=== PATIENT | male | born 1965 | race Caucasian/White ===

== ENCOUNTER 2017-03-29 18:11 | Inpatient (IN) | payer MEDICARE, BC ==
[2017-03-29] MEDS ORDERED: RX INFO: IV CONTRAST WAS GIVEN 1 EACH MISC MISCELLANE PRN (18:42)
--- NOTE | 2017-03-29 19:27 | ED ---
General Adult HPI - General Chief complaint: Urogenital Stated complaint: blood in urine Time Seen by Provider: 03/29/17 18:25 Source: patient, EMS, RN notes reviewed Mode of arrival: EMS Limitations: no limitations - History of Present Illness Initial comments: This is a 51-year-old male who presents to the emergency department with chief complaint of hematuria. 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 Patient uses an external catheter to urinate. He states that this morning he noticed some blood in his urine. He states that throughout the day the appearance of his urine improved. At approximately 4 PM this evening he noticed some resistance when he attempted to void. He stated that he felt some bladder pressure and retention with dribbling and a noncontinuous strain. Him and his family members changed the condom of his external catheter and noticed blood clots at the urethral opening. Family member at bedside states that she pulled blood clots from his urethra. Since that time patient has had iker blood. He was transported to the emergency department by EMS. Patient also states that his bed at home broke so he's been laying flat on his back for the past 2 weeks. He denies any flank pain or abdominal pain. Denies fever, chills, chest pain, shortness of breath, abdominal pain, nausea or vomiting, constipation or diarrhea, headache or vision changes. - Related Data Home Medications Medication Instructions Recorded Confirmed Lansoprazole [Prevacid] 15 mg PO DAILY 03/29/17 03/29/17 Allergies Allergy/AdvReac Type Severity Reaction Status Date / Time Sulfa (Sulfonamide Allergy Rash/Hives Verified 03/29/17 18:49 Antibiotics) Review of Systems ROS Statement: Those systems with pertinent positive or pertinent negative responses have been documented in the HPI. ROS Other: All systems not noted in ROS Statement are negative. 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- History of Any Multi-Drug Resistant Organisms: MRSA Date of last positivie culture/infection: 2011 MDRO Source:: skin graft left buttock Additional Past Surgical History / Comment(s): multiple surgeries/skin grafts for pressure sores Past Anesthesia/Blood Transfusion Reactions: No Reported Reaction Past Psychological History: No Psychological Hx Reported Smoking Status: Never smoker Past Alcohol Use History: None Reported Past Drug Use History: None Reported - Past Family History Mother Family Medical History: No Reported History Father Family Medical History: No Reported History General Exam - General Exam Comments Initial Comments: General: Awake and alert, well-developed; in no apparent distress. Lying flat on his back on ED stretcher. Family members at bedside. HEENT: Head atraumatic, normocephalic. Pupils are equal, round and reactive to light. Extraocular movements intact. Oropharynx moist without erythema or exudate. Cardiovascular: Regular rate and rhythm. No murmurs, rubs or gallops. Chest symmetrical. Respiratory: Lungs clear to auscultation bilaterally. No wheezes, rales or rhonchi. Normal respiratory effort with no use of accessory muscles. Abdomen: Soft, non-tender, non-distended. No suprapubic tenderness. No CVA tenderness. No rigidity, rebound or guarding. Normal bowel sounds in all 4 quadrants. Musculoskeletal: Normal ROM and no tenderness of his bilateral upper extremities. Skin: Strong, warm and dry without rashes or lesions. Neurological: Alert and oriented x3. CN II-XII grossly intact. Speech is fluent and answers are appropriate. No focal neuro deficits. Psychiatric: Normal mood and affect. No overt signs of depression or anxiety noted. Limitations: no limitations Course Vital Signs 03/29/17 03/29/17 03/29/17 18:15 18:28 20:18 Temperature 97.9 F 97 F L Pulse Rate 114 H 117 H Respiratory 16 16 Rate Blood Pressure 122/88 132/64 O2 Sat by Pulse 97 95 Oximetry 03/29/17 03/29/17 21:03 22:19 Temperature Pulse Rate 101 H Respiratory 18 Rate Blood Pressure 134/68 131/84 O2 Sat by Pulse 94 L Oximetry Medical Decision Making - Medical Decision Making This is a 51-year-old male who presented to the emergency department for evaluation of gross hematuria. Bladder scan was performed showing urine volume of 961. Patient's external catheter was removed and an indwelling catheter was placed. Approximately 725 output since that time. CBC revealed a white count of 12.7 with neutrophils at 9.3. Urine was bloody with very high red blood cells, 31 white blood cells and high bacteria. CMP revealed a sodium of 121, K + 3.4, glucose 122, BUN 101, creatinine 2.05 and CK 175. Repeat BUN was drawn and it was 106. CT of abdomen and pelvis revealed a multinodular thick urinary bladder, unable to exclude malignancy. Renal parenchymal thinning and nephrolithiasis with bilateral dilated ureters. This case was discussed with attending physician Dr. Lopez who was in contact with patient's doctor, Dr. Owens. Patient will be admitted to the hospital with diagnosis of uremia and gross hematuria for further evaluation. Patient was made aware of findings and plan. He is in agreement and voices understanding. He is in no acute distress at this time. - Lab Data Result diagrams: 03/29/17 19:12 03/29/17 20:30 Lab Results 03/29/17 03/29/17 03/29/17 Range/Units 19:12 19:12 19:12 WBC 12.7 H (3.8-10.6) k/uL RBC 5.99 H (4.30-5.90) m/uL Hgb 17.1 (13.0-17.5) gm/dL Hct 50.4 (39.0-53.0) % MCV 84.3 (80.0-100.0) fL MCH 28.5 (25.0-35.0) pg MCHC 33.8 (31.0-37.0) g/dL RDW 13.9 (11.5-15.5) % Plt Count 272 (150-450) k/uL Neutrophils % 73 % Lymphocytes % 16 % Monocytes % 5 % Eosinophils % 4 % Basophils % 0 % Neutrophils # 9.3 H (1.3-7.7) k/uL Lymphocytes # 2.0 (1.0-4.8) k/uL Monocytes # 0.7 (0-1.0) k/uL Eosinophils # 0.5 (0-0.7) k/uL Basophils # 0.0 (0-0.2) k/uL Sodium 129 L (137-145) mmol/L Potassium 3.4 L (3.5-5.1) mmol/L Chloride 89 L (98-107) mmol/L Carbon Dioxide 19 L (22-30) mmol/L Anion Gap 21 mmol/L BUN 101 H* (9-20) mg/dL Creatinine 2.05 H (0.66-1.25) mg/dL Est GFR (MDRD) Af Amer 42 (>60 ml/min/1.73 sqM) Est GFR (MDRD) Non-Af 34 (>60 ml/min/1.73 sqM) Glucose 122 H (74-99) mg/dL Calcium 10.6 H (8.4-10.2) mg/dL Total Bilirubin 1.3 (0.2-1.3) mg/dL AST 24 (17-59) U/L ALT 52 (21-72) U/L Alkaline Phosphatase 104 (38-126) U/L Creatine Kinase (55-170) U/L Total Protein 9.0 H (6.3-8.2) g/dL Albumin 5.0 (3.5-5.0) g/dL Urine Color Dark Red Urine Appearance Bloody (Clear) Urine RBC >182 H (0-5) /hpf Urine WBC 31 H (0-5) /hpf Urine WBC Clumps Many H (None) /hpf Urine Bacteria Many H (None) /hpf Urine Mucus Few H (None) /hpf 12/20/17 Range/Units 20:30 WBC (3.8-10.6) k/uL RBC (4.30-5.90) m/uL Hgb (13.0-17.5) gm/dL Hct (39.0-53.0) % MCV (80.0-100.0) fL MCH (25.0-35.0) pg MCHC (31.0-37.0) g/dL RDW (11.5-15.5) % Plt Count (150-450) k/uL Neutrophils % % Lymphocytes % % Monocytes % % Eosinophils % % Basophils % % Neutrophils # (1.3-7.7) k/uL Lymphocytes # (1.0-4.8) k/uL Monocytes # (0-1.0) k/uL Eosinophils # (0-0.7) k/uL Basophils # (0-0.2) k/uL Sodium (137-145) mmol/L Potassium (3.5-5.1) mmol/L Chloride (98-107) mmol/L Carbon Dioxide (22-30) mmol/L Anion Gap mmol/L BUN 106 H* (9-20) mg/dL Creatinine (0.66-1.25) mg/dL Est GFR (MDRD) Af Amer (>60 ml/min/1.73 sqM) Est GFR (MDRD) Non-Af (>60 ml/min/1.73 sqM) Glucose (74-99) mg/dL Calcium (8.4-10.2) mg/dL Total Bilirubin (0.2-1.3) mg/dL AST (17-59) U/L ALT (21-72) U/L Alkaline Phosphatase (38-126) U/L Creatine Kinase 175 H (55-170) U/L Total Protein (6.3-8.2) g/dL Albumin (3.5-5.0) g/dL Urine Color Urine Appearance (Clear) Urine RBC (0-5) /hpf Urine WBC (0-5) /hpf Urine WBC Clumps (None) /hpf Urine Bacteria (None) /hpf Urine Mucus (None) /hpf Disposition Clinical Impression: Uremia, Gross hematuria Disposition: ADMITTED IP TO THIS [facility] Condition: Stable Referrals: Marito Owens MD [Primary Care Provider] - 1-2 days Time of Disposition: 22:42
[2017-03-29 19:31] LABS: Bacteria,Urine Many /hpf; Mucus,Urine Few /hpf; RBC,Urine >182 /hpf (0-5); WBC,Urine 31 /hpf (0-5)
[2017-03-29 19:33] LABS: Calcium 10.6 mg/dL (8.4-10.2); Potassium 3.4 mmol/L (3.5-5.1); Total Bilirubin 1.3 mg/dL (0.2-1.3)
[2017-03-29 19:36] LABS: Appearance,Urine Bloody (Clear); Color,Urine Dark Red
[2017-03-29 19:40] LABS: Basophils % (A) 0 %; Eosinophils # (A) 0.5 k/uL (0-0.7); Eosinophils % (A) 4 %; HCT 50.4 % (39.0-53.0); HGB 17.1 gm/dL (13.0-17.5); Lymphocytes % (A) 16 %; MCH 28.5 pg (25.0-35.0); MCHC 33.8 g/dL (31.0-37.0); MCV 84.3 fL (80.0-100.0); Mean Platelet Volume 7.5; Monocytes # (A) 0.7 k/uL (0-1.0); Monocytes % (A) 5 %; Neutrophils # (A) 9.3 k/uL (1.3-7.7); Neutrophils % (A) 73 %; Platelet Count 272 k/uL (150-450); RBC 5.99 m/uL (4.30-5.90); RDW 13.9 % (11.5-15.5); WBC 12.7 k/uL (3.8-10.6)
--- NOTE | 2017-03-29 20:56 | CT ---
EXAMINATION TYPE: CT abdomen pelvis wo con DATE OF EXAM: 03/29/2017 COMPARISON: NONE HISTORY: hematuria CT DLP: 1029.2 mGycm Examination of the solid and hollow viscera is limited given the lack of contrast. FINDINGS: LUNG BASES: No evidence for nodule. No evidence for infiltrate. LIVER/GB: The gallbladder is unremarkable. No space-occupying hepatic lesion. PANCREAS: No pancreatic mass identified. No inflammatory process seen. SPLEEN: No evidence for splenomegaly. No intrasplenic lesions seen. ADRENALS: No adrenal nodules identified. No evidence for thickening. KIDNEYS: Multinodular thickening of the urinary bladder. Underlying malignancy is not excluded. There is renal parenchymal thinning seen bilaterally as well as bilateral nephrolithiasis. The ureters are dilated bilaterally right greater than left without obstructing calculus. No renal masses are detect ed. BOWEL: Appendix has a normal appearance. No evidence of bowel obstruction. No inflammatory process. Lymph nodes: No evidence for adenopathy greater than 1 cm. Abdominal aorta: Atheromatous changes seen. No evidence for aneurysm. Genital organs: No significant abnormality. Other: Severe scoliosis of the lumbar spine. IMPRESSION: 1.Multinodular thickening of the urinary bladder. Underlying malignancy is not excluded. 2. renal parenchymal thinning and nephrolithiasis. Dilated ureters without obstructing calculus.
[2017-03-29 21:28] LABS: Creatine Kinase 175 U/L (55-170)
[2017-03-29 21:29] LABS: Blood Urea Nitrogen 106 mg/dL (9-20)
[2017-03-29] MEDS ORDERED: HYDROmorphone 1 MG/ML 1 ML SYRINGE IVP PRN ×2 (22:19)
[2017-03-29] MEDS ORDERED: NALOXONE 0.4 MG/ML 1 ML VIAL IV PRN (22:19)
[2017-03-29] MEDS ORDERED: ACETAMINOPHEN TAB 325 MG TAB PO PRN (22:19)
[2017-03-29] MEDS: SODIUM CHLORIDE 0.9% 1,000 ML IV SCH (22:35)
[2017-03-30] MEDS: SODIUM CHLORIDE 0.9% 1,000 ML IV SCH ×3 (06:10→22:17)
--- NOTE | 2017-03-30 08:17 | P.HPIM ---
History of Present Illness H&P Date: 03/30/17 Chief Complaint: Gross hematuria. This is a history and physical an 51-year-old male who is very well-known to my practice. He has a remote hockey injury causing paraplegia. He has been essentially bedridden since late teens. The patient has struggled intermittently with urinary retention. He does straight cath at home. He states 2 days ago he had significant hot flash and then slowly darkening urine. He states he is intermittently had this for the last week or so. He has now been treated for prerenal azotemia/dehydration with element of UTI. No overt fever or chills. The patient is requesting alternating air mattress. Review of Systems Constitutional: Reports as per HPI, Reports fever Eyes: denies blurred vision, denies pain Ears, nose, mouth and throat: Denies headache, Denies sore throat Cardiovascular: Denies chest pain, Denies shortness of breath Respiratory: Denies cough Gastrointestinal: Denies abdominal pain, Denies diarrhea, Denies nausea, Denies vomiting Musculoskeletal: Denies myalgias Integumentary: Denies pruritus, Denies rash 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- History of Any Multi-Drug Resistant Organisms: MRSA Date of last positivie culture/infection: 2011 MDRO Source:: skin graft left buttock Additional Past Surgical History / Comment(s): multiple surgeries/skin grafts for pressure sores Past Anesthesia/Blood Transfusion Reactions: No Reported Reaction Past Psychological History: No Psychological Hx Reported Smoking Status: Never smoker Past Alcohol Use History: None Reported Past Drug Use History: None Reported - Past Family History Mother Family Medical History: No Reported History Father Family Medical History: No Reported History Medications and Allergies Home Medications Medication Instructions Recorded Confirmed Type Lansoprazole [Prevacid] 15 mg PO DAILY 03/29/17 03/29/17 History Allergies Allergy/AdvReac Type Severity Reaction Status Date / Time Sulfa (Sulfonamide Allergy Rash/Hives Verified 03/29/17 18:49 Antibiotics) Physical Exam Vitals: Vital Signs Temp Pulse Pulse Resp BP BP Pulse Ox 03/30/17 07:00 96.8 F L 72 18 86/58 94 L 03/30/17 01:34 18 03/30/17 01:11 98.5 F 69 20 153/76 94 L 03/30/17 00:00 92 18 128/92 96 03/29/17 22:19 101 H 18 131/84 94 L 03/29/17 21:03 134/68 03/29/17 20:18 97 F L 117 H 16 132/64 95 03/29/17 18:28 122/88 03/29/17 18:15 97.9 F 114 H 16 97 Intake and Output 03/29/17 03/30/17 03/30/17 22:59 06:59 14:59 Intake Total 0 Output Total 750 300 Balance -750 -300 Intake: Oral 0 Output: Urine 750 300 Uretheral ([place]) 750 300 Other: Voiding Method CAPD Indwelling Catheter Weight 90.718 kg 90.718 kg - Constitutional General appearance: no acute distress - EENT Eyes: EOMI - Neck Neck: no lymphadenopathy - Respiratory Respiratory: bilateral: CTA - Cardiovascular Rhythm: regular Heart sounds: normal: S1, S2 - Gastrointestinal General gastrointestinal: soft, no tenderness - Neurologic Paraplegia. - Psychiatric Psychiatric: A&O x's 3, appropriate affect, intact judgment & insight Results CBC & Chem 7: 03/29/17 19:12 03/29/17 20:30 Labs: Abnormal Lab Results - Last 24 Hours (Table) 03/29/17 03/29/17 03/29/17 Range/Units 19:12 19:12 19:12 WBC 12.7 H (3.8-10.6) k/uL RBC 5.99 H (4.30-5.90) m/uL Neutrophils # 9.3 H (1.3-7.7) k/uL Sodium 129 L (137-145) mmol/L Potassium 3.4 L (3.5-5.1) mmol/L Chloride 89 L (98-107) mmol/L Carbon Dioxide 19 L (22-30) mmol/L BUN 101 H* (9-20) mg/dL Creatinine 2.05 H (0.66-1.25) mg/dL Glucose 122 H (74-99) mg/dL Calcium 10.6 H (8.4-10.2) mg/dL Creatine Kinase (55-170) U/L Total Protein 9.0 H (6.3-8.2) g/dL Urine RBC >182 H (0-5) /hpf Urine WBC 31 H (0-5) /hpf Urine WBC Clumps Many H (None) /hpf Urine Bacteria Many H (None) /hpf Urine Mucus Few H (None) /hpf 03/29/17 Range/Units 20:30 WBC (3.8-10.6) k/uL RBC (4.30-5.90) m/uL Neutrophils # (1.3-7.7) k/uL Sodium (137-145) mmol/L Potassium (3.5-5.1) mmol/L Chloride (98-107) mmol/L Carbon Dioxide (22-30) mmol/L BUN 106 H* (9-20) mg/dL Creatinine (0.66-1.25) mg/dL Glucose (74-99) mg/dL Calcium (8.4-10.2) mg/dL Creatine Kinase 175 H (55-170) U/L Total Protein (6.3-8.2) g/dL Urine RBC (0-5) /hpf Urine WBC (0-5) /hpf Urine WBC Clumps (None) /hpf Urine Bacteria (None) /hpf Urine Mucus (None) /hpf Microbiology - Last 24 Hours (Table) 03/29/17 19:12 Urine Culture - Preliminary Urine,Catheterized Thrombosis Risk Factor Assmnt - Choose All That Apply Any of the Below Risk Factors Present?: Yes Each Factor Represents 1 point: Age 41-60 years, Obesity (BMI >25) Thrombosis Risk Factor Assessment Total Risk Factor Score: 2 Thrombosis Risk Factor Assessment Level: Low Risk Assessment and Plan (1) Paraplegia following spinal cord injury Current Visit: Yes Status: Acute Code(s): G82.20 - PARAPLEGIA, UNSPECIFIED SNOMED Code(s): 19111409 (2) Gross hematuria Current Visit: Yes Status: Acute Code(s): R31.0 - GROSS HEMATURIA SNOMED Code(s): 619702872 (3) Uremia Current Visit: Yes Status: Acute Code(s): N19 - UNSPECIFIED KIDNEY FAILURE SNOMED Code(s): 94049992 Plan: I suspect his hematuria is more likely related to dehydration infection and infection. Await urinary culture and sensitivity. I will go ahead and ask Dr. Oliver to comment on hematuria. The patient is well known to urology over the years. Check CBC and CMP in a.m. Continue hydration. Time with Patient: Greater than 30
[2017-03-30 09:07] LABS: Calcium 9.3 mg/dL (8.4-10.2); Potassium 4.2 mmol/L (3.5-5.1); Total Bilirubin 0.9 mg/dL (0.2-1.3); Total Protein 7.3 g/dL (6.3-8.2)
[2017-03-30 09:13] LABS: Basophils % (A) 0 %; Eosinophils # (A) 0.1 k/uL (0-0.7); Eosinophils % (A) 1 %; HCT 43.4 % (39.0-53.0); HGB 15.1 gm/dL (13.0-17.5); Lymphocytes # (A) 0.9 k/uL (1.0-4.8); Lymphocytes % (A) 7 %; MCH 29.5 pg (25.0-35.0); MCHC 34.7 g/dL (31.0-37.0); MCV 84.9 fL (80.0-100.0); Mean Platelet Volume 7.8; Monocytes # (A) 0.6 k/uL (0-1.0); Monocytes % (A) 4 %; Neutrophils # (A) 11.4 k/uL (1.3-7.7); Neutrophils % (A) 87 %; Platelet Count 209 k/uL (150-450); RBC 5.11 m/uL (4.30-5.90); RDW 14.1 % (11.5-15.5); WBC 13.1 k/uL (3.8-10.6)
--- NOTE | 2017-03-30 09:35 | CDI ---
Last Revision, March 2017 Documentation Clarification Form Date: 03/30/2017 9:10:00 AM From: Vivian Mendoza Admit Date: 03/29/2017 11:39:00 PM Patient Name: Og Grant Visit Number: [id number] Discharge Date: ATTENTION: The Clinical Documentation Specialists (CDI) and [facility] Coding Staff appreciate your assistance in clarifying documentation. Please respond to the clarification below the line at the bottom and electronically sign. The CDI & [facility] Coding staff will review the response and follow-up if needed. Please note: Queries are made part of the Legal Health Record. If you have any questions, please contact the author of this message via ITS. Dr. Marito Owens Uremia was documented in the H/P which is an unspecified kidney failure, further clarification is needed. History/Risk Factors: Spinal cord injury, Paraplegia, Clinical Indicators: The patient struggles intermittently with urinary retention. He straight cath at home. Current BUN 101, 106, CR 2.05, GFR 34 UA: RBC >182, WBC (H), Bacteria-Many Treatment: IV Fluids Levaquin PO Consults: Urology pending In order to capture the severity of condition, please further clarify if the condition signifies: Acute renal failure, Please specify etiology (if known): Cortical Necrosis Medullary Necrosis Tubular Necrosis Acute kidney injury Acute on chronic renal failure CKD Stage 1 GFR >90 CKD Stage 2 GFR 60-89 CKD Stage 3 GFR 30-59 CKD Stage 4 GFR 15-29 CKD Stage 5 GFR <15 Chronic renal failure/Chronic Kidney disease (CKD) please stage if known CKD Stage 1 GFR >90 CKD Stage 2 GFR 60-89 CKD Stage 3 GFR 30-59 CKD Stage 4 GFR 15-29 CKD Stage 5 GFR <15 ESRD Other, please specify Unable to determine Please continue to document in your progress notes and discharge summary in order to capture severity of illness and risk of mortality. Include clinical findings that support your diagnosis. MTDD
[2017-03-30] MEDS: PANTOPRAZOLE 40 MG/10 ML VIAL IV SCH (09:58)
[2017-03-30] MEDS: LEVOFLOXACIN 250 MG TAB PO SCH (09:59)
--- NOTE | 2017-03-30 12:38 | P.GSCN ---
History of Present Illness Consult date: 03/30/17 Reason for Consult: Gross hematuria History of present illness: The patient is a 51-year-old male admitted through the emergency room yesterday for evaluation of gross hematuria. 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 He was treated with external sphincterotomy in 1990 and 1994 and has been managed with an exdwelling catheter. Approximately 2 weeks ago he first noted some dark colored urine with some odor. He says he increased his fluids at that time. He developed some chills on 03/28. On the morning of 03/29 he developed gross hematuria but initially was able to void. As the day progressed he began passing clots and says that he was unable to void. He developed suprapubic discomfort and presented to the emergency room for evaluation. He was noted to have a white blood count of 12,700, a hemoglobin of 17.1, a BUN of 101 and a creatinine of 2.05. Computed tomography scan of the abdomen and pelvis without IV contrast showed bilateral nonobstructive renal calculi and bilateral atrophy of the renal parenchyma. The bladder was distended and there was a mass in the posterior bladder suggestive of either blood clot or a bladder malignancy. A Mclaughlin catheter was inserted and drained 850 cc of bloody urine. The patient was admitted for further evaluation. He has been started on Levaquin due to the possibility of a urinary tract infection. His white blood count this morning was 13,100. His hemoglobin is 15.1. BUN/creatinine are 108/2.36. The patient has a history of urolithiasis and did undergo right ureteroscopy with lithotripsy in 2005. I have seen the patient periodically in the past but not since at least 2009. 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 Past Anesthesia/Blood Transfusion Reactions: No Reported Reaction Past Psychological History: No Psychological Hx Reported Smoking Status: Never smoker Past Alcohol Use History: None Reported Past Drug Use History: None Reported - Past Family History Mother Family Medical History: No Reported History Father Family Medical History: No Reported History Medications and Allergies Home Medications Medication Instructions Recorded Confirmed Type Lansoprazole [Prevacid] 15 mg PO DAILY 03/29/17 03/29/17 History Allergies Allergy/AdvReac Type Severity Reaction Status Date / Time Sulfa (Sulfonamide Allergy Rash/Hives Verified 03/29/17 18:49 Antibiotics) Surgical - Exam Vital Signs Temp Pulse Resp Pulse Ox 97.9 F 114 H 16 97 03/29/17 18:15 03/29/17 18:15 03/29/17 18:15 03/29/17 18:15 - General well developed, no distress, obese - Respiratory normal respiratory effort - Abdomen Abdomen: soft, no masses Hernia: none - Genitourinary testicles present, testicles non-tender, other (16 Fr catheter is draining dark red urine) - Neurologic other (paraplegia) - Psychiatric oriented to time, oriented to person, speech is normal, memory intact Results - Labs 03/30/17 08:03 03/30/17 08:03 Abnormal Lab Results - Last 24 Hours (Table) 03/29/17 03/29/17 03/29/17 Range/Units 19:12 19:12 19:12 WBC 12.7 H (3.8-10.6) k/uL RBC 5.99 H (4.30-5.90) m/uL Neutrophils # 9.3 H (1.3-7.7) k/uL Lymphocytes # (1.0-4.8) k/uL Sodium 129 L (137-145) mmol/L Potassium 3.4 L (3.5-5.1) mmol/L Chloride 89 L (98-107) mmol/L Carbon Dioxide 19 L (22-30) mmol/L BUN 101 H* (9-20) mg/dL Creatinine 2.05 H (0.66-1.25) mg/dL Glucose 122 H (74-99) mg/dL Calcium 10.6 H (8.4-10.2) mg/dL Creatine Kinase (55-170) U/L Total Protein 9.0 H (6.3-8.2) g/dL Urine RBC >182 H (0-5) /hpf Urine WBC 31 H (0-5) /hpf Urine WBC Clumps Many H (None) /hpf Urine Bacteria Many H (None) /hpf Urine Mucus Few H (None) /hpf 03/29/17 03/30/17 03/30/17 Range/Units 20:30 08:03 08:03 WBC 13.1 H (3.8-10.6) k/uL RBC (4.30-5.90) m/uL Neutrophils # 11.4 H (1.3-7.7) k/uL Lymphocytes # 0.9 L (1.0-4.8) k/uL Sodium 130 L (137-145) mmol/L Potassium (3.5-5.1) mmol/L Chloride 94 L (98-107) mmol/L Carbon Dioxide 20 L (22-30) mmol/L BUN 106 H* 108 H* (9-20) mg/dL Creatinine 2.36 H (0.66-1.25) mg/dL Glucose 118 H (74-99) mg/dL Calcium (8.4-10.2) mg/dL Creatine Kinase 175 H (55-170) U/L Total Protein (6.3-8.2) g/dL Urine RBC (0-5) /hpf Urine WBC (0-5) /hpf Urine WBC Clumps (None) /hpf Urine Bacteria (None) /hpf Urine Mucus (None) /hpf Microbiology - Last 24 Hours (Table) 03/29/17 19:12 Urine Culture - Preliminary Urine,Catheterized Diabetes panel 03/29/17 03/29/17 03/30/17 Range/Units 19:12 20:30 08:03 Sodium 129 L 130 L (137-145) mmol/L Potassium 3.4 L 4.2 (3.5-5.1) mmol/L Chloride 89 L 94 L (98-107) mmol/L Carbon Dioxide 19 L 20 L (22-30) mmol/L BUN 101 H* 106 H* 108 H* (9-20) mg/dL Creatinine 2.05 H 2.36 H (0.66-1.25) mg/dL Glucose 122 H 118 H (74-99) mg/dL Calcium 10.6 H 9.3 (8.4-10.2) mg/dL AST 24 19 (17-59) U/L ALT 52 41 (21-72) U/L Alkaline Phosphatase 104 78 (38-126) U/L Total Protein 9.0 H 7.3 (6.3-8.2) g/dL Albumin 5.0 4.0 (3.5-5.0) g/dL Calcium panel 03/29/17 03/30/17 Range/Units 19:12 08:03 Calcium 10.6 H 9.3 (8.4-10.2) mg/dL Albumin 5.0 4.0 (3.5-5.0) g/dL Pituitary panel 03/29/17 03/29/17 03/30/17 Range/Units 19:12 20:30 08:03 Sodium 129 L 130 L (137-145) mmol/L Potassium 3.4 L 4.2 (3.5-5.1) mmol/L Chloride 89 L 94 L (98-107) mmol/L Carbon Dioxide 19 L 20 L (22-30) mmol/L BUN 101 H* 106 H* 108 H* (9-20) mg/dL Creatinine 2.05 H 2.36 H (0.66-1.25) mg/dL Glucose 122 H 118 H (74-99) mg/dL Calcium 10.6 H 9.3 (8.4-10.2) mg/dL Adrenal panel 03/29/17 03/29/17 03/30/17 Range/Units 19:12 20:30 08:03 Sodium 129 L 130 L (137-145) mmol/L Potassium 3.4 L 4.2 (3.5-5.1) mmol/L Chloride 89 L 94 L (98-107) mmol/L Carbon Dioxide 19 L 20 L (22-30) mmol/L BUN 101 H* 106 H* 108 H* (9-20) mg/dL Creatinine 2.05 H 2.36 H (0.66-1.25) mg/dL Glucose 122 H 118 H (74-99) mg/dL Calcium 10.6 H 9.3 (8.4-10.2) mg/dL Total Bilirubin 1.3 0.9 (0.2-1.3) mg/dL AST 24 19 (17-59) U/L ALT 52 41 (21-72) U/L Alkaline Phosphatase 104 78 (38-126) U/L Total Protein 9.0 H 7.3 (6.3-8.2) g/dL Albumin 5.0 4.0 (3.5-5.0) g/dL Assessment and Plan (1) Gross hematuria Narrative/Plan: The patient's gross hematuria could be secondary to a urinary tract infection. The CT scan findings in the bladder are suggestive of blood clot and the patient is at low risk for bladder cancer as he is a nonsmoker. The patient's catheter will be irrigated to try and remove any old clotted blood from the bladder. It may be necessary to insert a larger diameter catheter to accomplish this however. Eventually cystoscopy will need to be performed to exclude any other abnormality. Current Visit: Yes Status: Acute Code(s): R31.0 - GROSS HEMATURIA SNOMED Code(s): 662341999 (2) Renal calculus, bilateral Narrative/Plan: The patient has bilateral nonobstructive renal calculi. It's unclear whether these could be infected however the patient says he's not had a symptomatic urinary tract infection in years. Current Visit: Yes Status: Acute Code(s): N20.0 - CALCULUS OF KIDNEY SNOMED Code(s): 01632989 (3) Uremia Narrative/Plan: The source of the patient's renal failure is not clear. I do not have a baseline creatinine for him. He has bilateral renal atrophy and I suspect that his creatinine is chronically elevated and may have worsened recently if he was dehydrated. At least at the present time he does not appear to have any significant ureteral obstruction. Current Visit: Yes Status: Acute Code(s): N19 - UNSPECIFIED KIDNEY FAILURE SNOMED Code(s): 72381826
[2017-03-30] MEDS ORDERED: INFLUENZA VACCINE (6 MOS+) 60 MCG/0.5 ML SYRINGE IM ONE (15:30)
[2017-03-30] MEDS ORDERED: PNEUMOCOCCAL VACC-PNEUMOVAX 23 25 MCG/0.5 ML VIAL IM ONE (15:31)
[2017-03-31] MEDS: PANTOPRAZOLE 40 MG/10 ML VIAL IV SCH (07:47)
[2017-03-31] MEDS: LEVOFLOXACIN 250 MG TAB PO SCH (07:47)
[2017-03-31] MEDS: SODIUM CHLORIDE 0.9% 1,000 ML IV SCH ×2 (07:51→21:30)
[2017-03-31 08:51] LABS: Basophils % (A) 0 %; Eosinophils # (A) 0.1 k/uL (0-0.7); Eosinophils % (A) 1 %; HCT 38.4 % (39.0-53.0); HGB 12.9 gm/dL (13.0-17.5); Lymphocytes # (A) 0.8 k/uL (1.0-4.8); Lymphocytes % (A) 7 %; MCH 28.9 pg (25.0-35.0); MCHC 33.6 g/dL (31.0-37.0); MCV 86.1 fL (80.0-100.0); Mean Platelet Volume 8.4; Monocytes # (A) 0.6 k/uL (0-1.0); Monocytes % (A) 5 %; Neutrophils # (A) 9.5 k/uL (1.3-7.7); Neutrophils % (A) 86 %; Platelet Count 167 k/uL (150-450); RBC 4.45 m/uL (4.30-5.90); RDW 15.3 % (11.5-15.5); WBC 11.1 k/uL (3.8-10.6)
[2017-03-31 09:24] LABS: Albumin 3.4 g/dL (3.5-5.0); Potassium 3.8 mmol/L (3.5-5.1); Total Bilirubin 0.9 mg/dL (0.2-1.3); Total Protein 6.5 g/dL (6.3-8.2)
[2017-03-31] MEDS ORDERED: LORazepam 2 MG/ML INJ ONE ×2 (15:56→17:00)
[2017-03-31] MEDS ORDERED: CALCIUM GLUCONATE 100 MG/ML 10 ML VIAL ONE (17:00)
[2017-03-31] MEDS ORDERED: SODIUM CHLORIDE 0.9% 250 ML BAG ONE (17:00)
[2017-03-31] MEDS ORDERED: PIPERACILLIN-TAZO 3.375 GM/50 ML PMX BAG ONE (17:00)
[2017-03-31] MEDS ORDERED: SODIUM BICARB 8.4% 50 ML VIAL (1 MEQ/ML) ONE (17:00)
[2017-03-31] MEDS ORDERED: LEVETIRACETAM ONE (17:00)
[2017-03-31] MEDS ORDERED: SODIUM CHLORIDE 0.9% 1,000 ML BAG ONE (17:00)
[2017-03-31] MEDS ORDERED: SODIUM CHLORIDE 0.9% 100 ML BAG ONE (17:00)
[2017-03-31] MEDS ORDERED: SODIUM PHOSPHATE 3 MMOL/ML ONE (17:00)
[2017-03-31] MEDS ORDERED: DEXTROSE 5% IN WATER 1,000 ML BAG ONE (17:00)
[2017-03-31] MEDS ORDERED: PROPOFOL 10 MG/ML 50 ML VIAL IV ONE (17:00)
[2017-03-31] MEDS ORDERED: NOREPINEPHRINE 16 MG-0.9% NS PMX 250 ML IV ONE (17:00)
[2017-03-31] MEDS ORDERED: MAGNESIUM SULFATE-D5W PMX 1 GM/100 ML BAG IVPB ONE (17:00)
[2017-03-31] MEDS ORDERED: POTASSIUM CHLORIDE ORAL LIQUID 40 MEQ/30 ML CUP ONE (17:00)
[2017-03-31] MEDS ORDERED: SODIUM CHLORIDE ONE (17:00)
[2017-03-31] MEDS ORDERED: PROPOFOL 100 ML IV ONE (17:14)
[2017-03-31] MEDS ORDERED: NOREPINEPHRIN 4 MG-0.9% NS PMX 4 MG/250 ML ML IV ONE ×4 (17:14→20:24)
[2017-03-31] MEDS: NOREPINEPHRIN 4 MG-0.9% NS PMX 4 MG/250 ML ML IV SCH ×3 (17:30→22:22)
[2017-03-31] MEDS ORDERED: NOREPINEPHRIN 4 MG-0.9% NS PMX 4 MG/250 ML ML IV SCH ×2 (17:30→23:45)
[2017-03-31] MEDS ORDERED: ETOMIDATE 2 MG/ML 10 ML VIAL ONE (17:30)
[2017-03-31] MEDS ORDERED: SUCCINYLCHOLINE CHLORIDE 100 MG/5 ML SYR IV ONE (17:30)
[2017-03-31] MEDS ORDERED: ROCURONIUM BROMIDE 10 MG/ML 10 ML VIAL IV ONE (17:30)
[2017-03-31] MEDS: DEXTROSE 5% IN WATER 1,000 ML with SODIUM BICARB (1 MEQ/ML) 150 ML IV SCH (19:30)
[2017-03-31] MEDS: SODIUM CHLORIDE 0.9% 99 ML with VASOPRESSIN 20 UNIT IV SCH ×2 (19:30)
[2017-03-31] MEDS ORDERED: SODIUM CHLORIDE 0.9% 1,000 ML IV ONE (20:30)
--- NOTE | 2017-03-31 23:41 | OP ---
OPERATIVE REPORT DATE OF PROCEDURE: 03/31/2017 PREOPERATIVE DIAGNOSIS: Gross hematuria. POSTOPERATIVE DIAGNOSIS: Gross hematuria -secondary to hemorrhagic cystitis. PROCEDURE: Cystoscopy with irrigation of blood clots from bladder. SURGEON: Dr. Oliver. ANESTHESIA: None. The patient has a history of a neurogenic bladder secondary to a cervical injury, who has been maintained in the past with an exdwelling catheter following external sphincterotomy. He was admitted 2 days ago with gross hematuria. He continues to have gross hematuria, which is felt to be secondary to urinary tract infection. CT scan of the abdomen and pelvis without IV contrast showed bilateral renal atrophy. There was a filling defect in the posterior bladder consistent with either a large amount of clot or bladder tumor. Cystoscopy is planned for further evaluation. PROCEDURE: The patient was placed supine on his hospital bed. His Mclaughlin catheter was removed. The penis was prepped with Betadine solution and draped in sterile fashion. A 16- Kazakh flexible cystoscope was passed through the urethra into the bladder. The anterior urethra was unremarkable. External sphincter appeared incompetent. There was no obstruction of the bladder neck. Unfortunately, a large amount of blood was present within the bladder, which made visualization suboptimal. The cystoscope was withdrawn and a 22-Kazakh catheter was inserted and a large amount of bloody urine with clots was irrigated from the bladder. The catheter was removed. The cystoscope was reintroduced into the bladder. The posterior bladder wall was free of tumor, foreign body in diverticulum. The remainder of the bladder was unremarkable. Both ureteral orifices were of normal location and configuration. The cystoscope was withdrawn. The 22- Kazakh catheter was reinserted and left to gravity drainage. The patient tolerated the procedure well. FINAL IMPRESSION: The patient's hematuria is most likely related to hemorrhagic cystitis. He will be continued on Levaquin pending results of his urine culture. The catheter will remain in place until it has remained clear for at least 2 days. MMODL / IJN: [id number] /
[2017-03-31] MEDS ORDERED: ACETAMINOPHEN IV (For NPO) 1,000 MG in EMPTY BAG 1 BAG IVPB PRN (23:55)
[2017-03-31] MEDS ORDERED: IPRATROPIUM-ALBUTEROL 3 ML NEB INHALATION PRN (23:55)
[2017-04-01] MEDS ORDERED: SODIUM CHLORIDE 0.9% 100 ML BAG ONE
[2017-04-01] MEDS ORDERED: VASOPRESSIN 20 UNIT/ML 1 ML VIAL ONE
[2017-04-01] MEDS ORDERED: NOREPINEPHRINE 16 MG-0.9% NS PMX 250 ML IV ONE
[2017-04-01] MEDS ORDERED: PIPERACILLIN-TAZO 3.375 GM/50 ML PMX BAG ONE
[2017-04-01] MEDS ORDERED: NOREPINEPHRIN 4 MG-0.9% NS PMX 4 MG/250 ML ML IV ONE ×4 (00:22→03:16)
[2017-04-01] MEDS ORDERED: Magnesium Replacement Protocol 1 EACH MISC MISCELLANE PRN (00:28)
[2017-04-01] MEDS ORDERED: Phosphorus Replacement Protoco 1 EACH MISC MISCELLANE PRN (00:28)
[2017-04-01] MEDS ORDERED: Potassium Replacement Protocol 1 EACH MISC MISCELLANE PRN (00:28)
[2017-04-01] MEDS: NOREPINEPHRIN 4 MG-0.9% NS PMX 4 MG/250 ML ML IV SCH ×15 (00:29→13:55)
[2017-04-01] MEDS: INSULIN ASPART 100 UNIT/ML 1 ML 10 ML VIAL SQ SCH ×2 (01:52→05:11)
[2017-04-01] MEDS: SODIUM CHLORIDE 0.9% 99 ML with VASOPRESSIN 20 UNIT IV SCH ×8 (02:00→20:22)
[2017-04-01 02:55] LABS: Glucose,Whole Blood 99 mg/dL (75-99)
[2017-04-01 02:55] LABS: Glucose,Whole Blood 90 mg/dL (75-99)
[2017-04-01 02:56] LABS: Glucose,Whole Blood 192 mg/dL (75-99)
[2017-04-01] MEDS: SODIUM CHLORIDE 0.9% 2,000 ML IV ONE ×2 (03:00)
[2017-04-01] MEDS ORDERED: SODIUM CHLORIDE 0.9% 1,000 ML IV ONE ×5 (03:00→15:57)
--- NOTE | 2017-04-01 03:24 | XR ---
EXAMINATION TYPE: 1 view chest radiograph DATE OF EXAM: 03/31/2017 COMPARISON: NONE HISTORY: Post intubation TECHNIQUE: Single portable supine chest radiograph was performed. FINDINGS: Endotracheal tube is satisfactorily positioned at the level of the superior aspect of the a ortic arch approximately 4.5 cm from the rosmery. Enteric tube courses with its distal tip the on elidia cular view, also appropriately placed. There is obscuration of the left costophrenic angle and silhou etting of the hemidiaphragm with retrocardiac density that may relate to a small left pleural effusio n with atelectasis and/or pneumonia. Right basilar subsegmental atelectasis is also noted. Cardiac si lhouette is enlarged and the patient is slightly rotated. No pneumothorax. IMPRESSION: 1. Properly placed enteric and endotracheal tubes. 2. Retrocardiac density either relating to a small pleural effusion with atelectasis and/or pneumonia in the appropriate clinical setting. 3. Right basilar subsegmental atelectasis.
[2017-04-01] MEDS: IPRATROPIUM-ALBUTEROL 3 ML NEB INHALATION SCH ×7 (03:26→23:08)
[2017-04-01 04:21] LABS: Glucose,Whole Blood 237 mg/dL (75-99)
[2017-04-01 04:45] LABS: HCT 36.4 % (39.0-53.0); HGB 11.7 gm/dL (13.0-17.5); MCH 28.2 pg (25.0-35.0); MCHC 32.3 g/dL (31.0-37.0); MCV 87.4 fL (80.0-100.0); Platelet Count 240 k/uL (150-450); RBC 4.16 m/uL (4.30-5.90); RDW 14.6 % (11.5-15.5)
--- NOTE | 2017-04-01 04:48 | CT ---
EXAMINATION TYPE: CT brain without contrast DATE OF EXAM: 03/31/2017 COMPARISON: NONE HISTORY: Seizure CT DLP: 1029.9 mGycm Automated exposure control for dose reduction was used. FINDINGS: There is no acute intracranial hemorrhage or midline shift identified. There is diffuse v entricular and sulcal prominence consistent with diffuse age-related cerebral atrophy. There is low- attenuation in the periventricular white matter consistent with chronic small vessel ischemic change. The globes are intact. There is a 2.0 cm mucosal retention cyst within the left maxillary sinus. Secretions are noted within the posterior nasopharynx IMPRESSION: No acute intracranial hemorrhage or midline shift. There is diffuse age-related cerebra l atrophy and chronic small vessel ischemic change noted.
[2017-04-01] MEDS: MEROPENEM 1 GM in SODIUM CHLORIDE 0.9% 100 ML IVPB SCH ×3 (04:56→21:22)
[2017-04-01 04:58] LABS: Ionized Calcium 3.9 mg/dL (4.5-5.3)
[2017-04-01 05:08] LABS: Magnesium 1.8 mg/dL (1.6-2.3); Phosphorus 2.4 mg/dL (2.5-4.5)
[2017-04-01 05:15] LABS: WBC 34.4 k/uL (3.8-10.6)
[2017-04-01 05:16] LABS: Calcium 5.9 mg/dL (8.4-10.2); Potassium 2.9 mmol/L (3.5-5.1)
[2017-04-01] MEDS ORDERED: POTASSIUM PHOSPHATE 10 MMOL in SODIUM CHLORIDE 0.9% 250 ML IV ONE (05:31)
[2017-04-01 05:51] LABS: INR 1.3 (<1.2); Partial Thromboplastin Time 33.9 sec (22.0-30.0); Prothrombin Time 11.9 sec (9.0-12.0)
[2017-04-01] MEDS: DEXTROSE 5% IN WATER 1,000 ML with SODIUM BICARB (1 MEQ/ML) 150 ML IV SCH ×3 (05:56→15:55)
[2017-04-01] MEDS ORDERED: CALCIUM GLUCONATE 2,000 MG in SODIUM CHLORIDE 0.9% 100 ML IVPB ONE (06:03)
[2017-04-01] MEDS: MAGNESIUM SULFATE-D5W PMX 1 GM in DEXTROSE/WATER 1 100ML.BAG IVPB SCH ×2 (06:29→07:49)
[2017-04-01] MEDS: POTASSIUM CHLORIDE ORAL LIQUID 40 MEQ/30 ML CUP NG-TUBE SCH ×5 (06:29→23:48)
[2017-04-01] MEDS: SODIUM CHLORIDE 0.9% 1,000 ML IV SCH ×4 (06:45→19:01)
[2017-04-01 06:52] LABS: Band Neutrophils % 14 %; Neutrophils % (M) 86 %; Nucleated Red Blood Cells 0 /100 WBC (0-0); Total Cells Counted 100
[2017-04-01] MEDS ORDERED: PIPERACILLIN-TAZOBACTAM 3.375 GM in DEXTROSE/WATER 1 50ML.BAG IVPB SCH (08:00)
[2017-04-01] MEDS: CHLORHEXIDINE GLUCONATE 15 ML CUP MUCOUS MEM SCH ×2 (08:05→20:06)
[2017-04-01 08:12] LABS: Glucose,Whole Blood 286 mg/dL (75-99)
--- NOTE | 2017-04-01 08:16 | P.PN ---
Subjective Progress Note Date: 03/31/17 Principal diagnosis: Uremia. New-onset seizure element. This is a continue proximal on a 51-year-old paraplegic male who was essentially admitted for UTI with gross hematuria. The [employer] was consult did. At this time, we intended to possibly do a uroscopy if the bleeding continued. The patient was stabilizing. He had element of prerenal esteem and dehydration and was scheduled for discharge. However, during the course today, he developed new onset seizure disorder and altered mental status. He is transferred to the ICU and is not being stabilized. Neurology has been consulted otherwise. Objective - Vital Signs Vital signs: Vital Signs Temp 95.2 F L 04/01/17 06:50 Pulse 103 H 04/01/17 07:39 Resp 22 04/01/17 07:30 BP 111/70 04/01/17 07:30 Pulse Ox 99 04/01/17 07:30 Intake & Output 03/31/17 04/01/17 04/01/17 18:59 06:59 18:59 Intake Total 1690.5 43850.375 793 Output Total 4590 350 Balance 1690.5 7110.375 443 Intake: IV 1503 9641.0 293 Calcium Gluconate 0 100 D5W with 3 amps Sodium 0 1150 100 Bicarb Magnesium Sulfate 0 400 Normal Saline 1500 7250 50 Pressure Bag 3 36 3 Sodium Bicarb Amp, IVP 0 100 Sodium Phosphate 0 375 125 Vasopressin 0 180 15 Zosyn 0 50.0 Intake, IV Titration 187.5 1834.375 500 Amount Meropenem 1 gm In Sodium 100 Chloride 0.9% 100 ml @ 200 mls/hr IVPB Q8H MANDA Rx#:[id number] Norepinephrin 4 mg-0.9% 187.5 1734.375 500 Ns Pmx 4 mg In 250 ml @ Titrate IV .Q0M MANDA Rx#: [id number] Oral 225 Output: Gastric Drainage 1000 Urine 3590 350 Other: Voiding Method Indwelling Catheter Indwelling Catheter ABP, PAP, CO, CI - Last Documented Arterial Blood Pressure 87/55 - Constitutional General appearance: Present: average body habitus - EENT Eyes: Absent: abnormal pupil - Neck Neck: Absent: lymphadenopathy - Respiratory Respiratory: bilateral: CTA - Cardiovascular Rhythm: regular Heart sounds: normal: S1, S2 - Gastrointestinal General gastrointestinal: Present: soft - Neurologic Neurologic Comment(s): Paraplegia - Labs CBC & Chem 7: 04/01/17 04:15 04/01/17 04:15 Labs: Abnormal Lab Results - Last 24 Hours (Table) 03/31/17 03/31/17 03/31/17 Range/Units 07:54 07:54 23:13 WBC 11.1 H (3.8-10.6) k/uL RBC (4.30-5.90) m/uL Hgb 12.9 L (13.0-17.5) gm/dL Hct 38.4 L (39.0-53.0) % Neutrophils # 9.5 H (1.3-7.7) k/uL Neutrophils # (Manual) (1.3-7.7) k/uL Lymphocytes # 0.8 L (1.0-4.8) k/uL INR (<1.2) APTT (22.0-30.0) sec ABG Lactic Acid (0.5-1.6) mmol/L Sodium 134 L (137-145) mmol/L Potassium (3.5-5.1) mmol/L Chloride (98-107) mmol/L Carbon Dioxide 20 L (22-30) mmol/L BUN 83 H* (9-20) mg/dL Creatinine 1.79 H (0.66-1.25) mg/dL Glucose (74-99) mg/dL POC Glucose (mg/dL) 192 H (75-99) mg/dL Calcium 8.0 L (8.4-10.2) mg/dL Ionized Calcium Yuval (4.5-5.3) mg/dL Phosphorus (2.5-4.5) mg/dL AST 16 L (17-59) U/L Albumin 3.4 L (3.5-5.0) g/dL 04/01/17 04/01/17 04/01/17 Range/Units 04:15 04:15 04:15 WBC 34.4 H* (3.8-10.6) k/uL RBC 4.16 L (4.30-5.90) m/uL Hgb 11.7 L (13.0-17.5) gm/dL Hct 36.4 L (39.0-53.0) % Neutrophils # (1.3-7.7) k/uL Neutrophils # (Manual) 34.40 H (1.3-7.7) k/uL Lymphocytes # (1.0-4.8) k/uL INR (<1.2) APTT (22.0-30.0) sec ABG Lactic Acid 5.1 H* (0.5-1.6) mmol/L Sodium (137-145) mmol/L Potassium 2.9 L* (3.5-5.1) mmol/L Chloride 112 H (98-107) mmol/L Carbon Dioxide 14 L (22-30) mmol/L BUN 47 H (9-20) mg/dL Creatinine 1.50 H (0.66-1.25) mg/dL Glucose 246 H (74-99) mg/dL POC Glucose (mg/dL) (75-99) mg/dL Calcium 5.9 L* (8.4-10.2) mg/dL Ionized Calcium Yuval 3.9 L (4.5-5.3) mg/dL Phosphorus 2.4 L (2.5-4.5) mg/dL AST (17-59) U/L Albumin (3.5-5.0) g/dL 04/01/17 04/01/17 04/01/17 Range/Units 04:16 05:19 08:10 WBC (3.8-10.6) k/uL RBC (4.30-5.90) m/uL Hgb (13.0-17.5) gm/dL Hct (39.0-53.0) % Neutrophils # (1.3-7.7) k/uL Neutrophils # (Manual) (1.3-7.7) k/uL Lymphocytes # (1.0-4.8) k/uL INR 1.3 H (<1.2) APTT 33.9 H (22.0-30.0) sec ABG Lactic Acid (0.5-1.6) mmol/L Sodium (137-145) mmol/L Potassium (3.5-5.1) mmol/L Chloride (98-107) mmol/L Carbon Dioxide (22-30) mmol/L BUN (9-20) mg/dL Creatinine (0.66-1.25) mg/dL Glucose (74-99) mg/dL POC Glucose (mg/dL) 237 H 286 H (75-99) mg/dL Calcium (8.4-10.2) mg/dL Ionized Calcium Yuval (4.5-5.3) mg/dL Phosphorus (2.5-4.5) mg/dL AST (17-59) U/L Albumin (3.5-5.0) g/dL Microbiology - Last 24 Hours (Table) 03/29/17 19:12 Urine Culture - Preliminary Urine,Catheterized Enterobacter aerogenes Gram Neg Bacilli Assessment and Plan (1) Paraplegia following spinal cord injury Current Visit: Yes Status: Acute Code(s): G82.20 - PARAPLEGIA, UNSPECIFIED SNOMED Code(s): 48003146 (2) Gross hematuria Current Visit: Yes Status: Acute Code(s): R31.0 - GROSS HEMATURIA SNOMED Code(s): 048704608 (3) Uremia Current Visit: Yes Status: Acute Code(s): N19 - UNSPECIFIED KIDNEY FAILURE SNOMED Code(s): 23900062 (4) Seizure Current Visit: Yes Status: Acute Code(s): R56.9 - UNSPECIFIED CONVULSIONS SNOMED Code(s): 99052075 Plan: Torso, the patient will be transferred to the ICU. Consult neurology. Dr. Mejia's group will be covering for the weekend. Need for CT scan of the head with probable EEG per Time with Patient: Greater than 30
[2017-04-01] MEDS ORDERED: HYDROCORTISONE SUCCINATE 100 MG/2 ML VIAL IV STA (08:21)
[2017-04-01] MEDS ORDERED: SODIUM BICARB 8.4% 50 ML VIAL (1 MEQ/ML) IV ONE (08:24)
[2017-04-01] MEDS ORDERED: INSULIN REGULAR BOLUS (FROM DRIP BAG) IV PRN (08:43)
[2017-04-01] MEDS: PANTOPRAZOLE 40 MG/10 ML VIAL IV SCH (08:52)
[2017-04-01] MEDS: PROPOFOL 1,000 MG in EMPTY BAG 1 BAG IV SCH (10:12)
--- NOTE | 2017-04-01 10:15 | P.PN ---
Progress Note - Text Progress Note Date: 04/01/17 The patient developed a change in consciousness and seizure like activity yesterday afternoon and was transferred to the intensive care unit. He was hypotensive and has been treated with fluids, levophed and was intubated earlier this morning. He is currently hemodynamically stable and alert but remains intubated. His urine is clear and he is making a large amounts of urine. His lactic acid this morning was 5.1. Bicarb is 14 potassium is 2.9. BUN/ creatinine have improved and are 47/1.5. White blood count was 34,400. Hemoglobin was 11.7. Urine culture which was obtained at the time of admission is growing Enterobacter aerogenous which was resistant to the Levaquin which the patient had been receiving. The patient was switched to Zosyn and meropenem yesterday evening. Repeat blood and urine cultures were obtained last night. Impression: Severe sepsis with hypotension secondary to gram-negative bacteremia secondary to Enterobacter aerogenous urinary tract infection. Recommendation: The patient appears to be receiving appropriate antibiotics at this time and hopefully he can be extubated laterm if he remains hemodynamically stable. The gross hematuria that he experienced at the time of admission was related to hemorrhagic cystitis which appears to have subsided. His catheter should remain in place until the need for close monitoring of his urine output is no longer necessary.
[2017-04-01 10:34] LABS: Glucose,Whole Blood 222 mg/dL (75-99)
[2017-04-01] MEDS: INSULIN REGULAR 100 UNIT in SODIUM CHLORIDE 0.9% 100 ML IV SCH (10:34)
[2017-04-01 11:04] LABS: Glucose,Whole Blood 244 mg/dL (75-99)
[2017-04-01 11:04] LABS: ABG Base Excess -13.6 mmol/L; ABG HCO3 13 mmol/L (21-25); ABG PCO2 31 mmHg (35-45); ABG PH 7.23 (7.35-7.45); ABG PO2 136 mmHg (83-108)
[2017-04-01 12:03] LABS: Glucose,Whole Blood 204 mg/dL (75-99)
--- NOTE | 2017-04-01 12:22 | P.CNPUL ---
History of Present Illness Consult date: 04/01/17 Reason for consult: other (Acute septic shock secondary to acute urinary tract infection, and acute respiratory failure secondary to septic shock.) Chief complaint: Hematuria History of present illness: This is a 51-year-old white male, paraplegic, this is related to previous hockey accident and cervical spine injury at age 18. 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 Patient had external sphincterotomy in 1990 and 1994, and has been managed with an exdwelling catheter. In the last 2 weeks, the patient has been noticing dark color urine with some odor. On 03/28 patient was noticing some chills, and on the morning of 03/29 he developed gross hematuria but he was able to void. Later on the patient was passing clots, and he was unable to void. He developed significant suprapubic discomfort, and presented to the ER for evaluation. Upon evaluation the patient was noted to have slight leukocytosis, and renal failure with a BUN of [address] of the abdomen and pelvis showed bilateral nonobstructive renal calculi, and bilateral atrophy of the renal parenchyma. His bladder was noted to be distended, and question the possibility of bladder mass. Patient was started on Levaquin for treatment of urinary tract infection, and he was seen by urology on consultation were in the patient had cystoscopy, and he was found to have hemorrhagic cystitis. The procedure was done on 03/31/2017. Yesterday, in p.m., patient developed an episode of unresponsiveness, patient was hypotensive, nursing staff felt he may have had a seizure, hence he was treated with Keppra, patient was unable to protect his airways, and I was notified about the patient at that time. Patient was given fluid boluses for hypotension, started on levo fed, and later on vasopressin was started. Patient was sent for a CT of the brain which came back negative for CVA. And he was later transferred back to the ICU were and we determined that the patient has a clear cut picture of septic shock from his urinary tract infection which turned out to be secondary to Enterobacter species. Patient was already on Levaquin, this was discontinued and he was placed on Zosyn and Merrem. Overnight, the patient remained relatively hypotensive in spite of significant high doses of norepinephrine, and vasopressin was later started. Presently the patient is on 75 mics of norepinephrine, and he is on 0.05 units of vasopressin. Blood pressure is marginal, many fluid boluses were given, and I believe he received over 10 L of fluids. His urine output has been excellent and he seems to have a polyuria picture. Renal functioning seems to be significantly improved in the last 24 hours. Lactic acid remains high this morning at 5.1. All his electrolytes were abnormal including low potassium which was corrected, calcium was also corrected, and his creatinine improved from 2.36 down to 1.50. Urine cultures were noted, but no blood cultures have been noted so far. Today I saw the patient in the ICU, remains on mechanical ventilation, his ventilator settings are tidal volume of 500, assist control rate of 20, FiO2 is down to 50%, and PEEP is at 5. ABG showed a pO2 of 136 pCO2 of 31 pH of 7.23, hence the patient was given more bicarb, and kept on the bicarb drip with 3 A of bicarb in 1 L of D5W running at 1 25 mL per hour. In spite of all of this, the patient is on small dose of propofol, he is arousable, and follows simple instructions. Seems to be very appropriate. Neurology-yanez, the patient was given Keppra, and EEG was ordered, it is not certain whether the patient truly had a seizure or not. Review of Systems Cannot be obtained ROS unobtainable: due to endotracheal tube 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- History of Any Multi-Drug Resistant Organisms: MRSA Date of last positivie culture/infection: 2011 MDRO Source:: skin graft left buttock Additional Past Surgical History / Comment(s): multiple surgeries/skin grafts for pressure sores, right ureteroscopy with lithotripsy in 2005, external sphincetrotomy 1990 and 1994. Past Anesthesia/Blood Transfusion Reactions: No Reported Reaction Past Psychological History: No Psychological Hx Reported Smoking Status: Never smoker Past Alcohol Use History: None Reported Past Drug Use History: None Reported - Past Family History Mother Family Medical History: No Reported History Father Family Medical History: No Reported History Medications and Allergies Home Medications Medication Instructions Recorded Confirmed Type Lansoprazole [Prevacid] 15 mg PO DAILY 12/20/17 12/20/17 History Allergies Allergy/AdvReac Type Severity Reaction Status Date / Time Sulfa (Sulfonamide Allergy Rash/Hives Verified 03/29/17 18:49 Antibiotics) Physical Exam Vitals: Vital Signs Temp Pulse Resp BP Pulse Ox 04/01/17 11:56 101 H 04/01/17 11:48 96 04/01/17 11:42 106 H 04/01/17 11:00 97.2 F L 112 H 26 H 96 04/01/17 10:45 106 H 20 97 04/01/17 10:30 108 H 22 104/57 96 04/01/17 10:15 110 H 26 H 104/57 96 04/01/17 10:00 109 H 25 H 104/57 97 04/01/17 09:45 97.9 F 108 H 24 104/57 97 04/01/17 09:30 107 H 22 101/61 94 L 04/01/17 09:15 104 H 23 101/61 99 04/01/17 09:00 96.3 F L 103 H 25 H 101/61 96 04/01/17 08:45 107 H 25 H 101/61 96 04/01/17 08:30 105 H 22 95/48 97 04/01/17 08:15 109 H 22 95/48 95 04/01/17 08:00 96.1 F L 109 H 22 95/48 96 04/01/17 07:50 103 H 04/01/17 07:39 103 H 04/01/17 07:30 106 H 22 111/70 99 04/01/17 07:20 104 H 20 111/70 99 04/01/17 07:10 101 H 20 111/70 99 04/01/17 07:00 106 H 21 111/70 99 04/01/17 06:50 95.2 F L 106 H 21 111/70 99 04/01/17 06:40 108 H 21 111/70 99 04/01/17 06:30 111 H 22 99 04/01/17 06:20 106 H 20 99 04/01/17 06:10 102 H 20 99 04/01/17 06:00 106 H 21 99 04/01/17 05:50 106 H 20 99 04/01/17 05:40 106 H 20 99 04/01/17 05:30 107 H 22 99 04/01/17 05:20 106 H 20 99 04/01/17 05:10 108 H 24 99 04/01/17 05:00 95 F L 108 H 22 99 04/01/17 04:50 111 H 22 99 04/01/17 04:40 112 H 23 99 04/01/17 04:30 114 H 22 80/52 99 04/01/17 04:20 112 H 21 118/56 99 04/01/17 04:10 116 H 22 118/56 99 04/01/17 04:00 94.3 F L 113 H 20 118/56 99 04/01/17 03:50 112 H 20 118/56 99 04/01/17 03:40 113 H 20 118/56 99 04/01/17 03:32 112 H 04/01/17 03:30 111 H 20 111/56 100 04/01/17 03:20 115 H 20 111/56 100 04/01/17 03:10 111 H 20 111/56 100 04/01/17 03:00 111 H 20 111/56 99 04/01/17 02:50 112 H 20 111/56 99 04/01/17 02:40 113 H 20 111/56 99 04/01/17 02:30 117 H 26 H 113/69 99 04/01/17 02:20 116 H 20 113/69 99 04/01/17 02:10 116 H 20 99/59 99 04/01/17 02:00 116 H 20 99/59 99 04/01/17 01:50 117 H 22 99/59 99 04/01/17 01:40 117 H 21 99/59 99 04/01/17 01:30 118 H 20 90/61 99 04/01/17 01:20 118 H 20 90/61 99 04/01/17 01:10 121 H 20 112/76 99 04/01/17 01:00 126 H 32 H 112/76 99 04/01/17 00:50 122 H 20 112/76 99 04/01/17 00:40 123 H 20 112/76 99 04/01/17 00:30 125 H 21 109/67 99 04/01/17 00:20 142 H 21 109/67 99 04/01/17 00:10 129 H 23 109/67 99 04/01/17 00:00 96.1 F L 123 H 20 109/67 99 03/31/17 23:50 128 H 20 109/67 99 03/31/17 23:40 129 H 20 109/67 99 03/31/17 23:30 121 H 20 130/71 99 03/31/17 23:20 124 H 20 130/71 99 03/31/17 23:10 129 H 20 130/71 99 03/31/17 23:00 127 H 20 130/71 99 Intake and Output 03/31/17 04/01/17 04/01/17 22:59 06:59 14:59 Intake Total 6425.0 6965.875 3388.705 Output Total 1989 2600 3425 Balance 4435.0 4365.875 -36.295 Intake: IV 5762.5 5381.5 2180 Calcium Gluconate 100 100 D5W with 3 amps Sodium 350 800 575 Bicarb Magnesium Sulfate 300 100 100 Normal Saline 4550 4200 1150 Piperacillin-Tazobactam 3 50 .375 gm In Dextrose/Water 1 50ml.bag @ 12.5 mls/hr IVPB Q8HR MANDA Rx#: [id number] Pressure Bag 15 24 15 Sodium Bicarb Amp, IVP 100 Sodium Chloride 0.9% 1, 50 000 ml @ 50 mls/hr IV . Q20H MANDA Rx#:[id number] Sodium Phosphate 250 125 125 Vasopressin 60 120 15 Zosyn 37.5 12.5 Intake, IV Titration 437.5 6220.074 4081.705 Amount Insulin Regular 100 unit 1.953 In Sodium Chloride 0.9% 100 ml @ Per Protocol IV .Q0M MANDA Rx#:[id number] Meropenem 1 gm In Sodium 100 Chloride 0.9% 100 ml @ 200 mls/hr IVPB Q8H MANDA Rx#:[id number] Norepinephrin 4 mg-0.9% 437.5 9342.077 5032.062 Ns Pmx 4 mg In 250 ml @ Titrate IV .Q0M MANDA Rx#: [id number] Propofol 1,000 mg In 12.69 Empty Bag 1 bag @ Titrate IV .Q0M MANDA Rx#: [id number] Oral 225 Output: Gastric Drainage 1000 475 Urine 990 2600 2900 Emesis 50 Other: Voiding Method Indwelling Catheter Indwelling Catheter Indwelling Catheter ABP, PAP, CO, CI - Last 8 Hours Arterial Blood Pressure 86/56 Arterial Blood Pressure 87/53 Arterial Blood Pressure 86/55 Arterial Blood Pressure 90/56 Arterial Blood Pressure 90/56 Arterial Blood Pressure 95/58 Arterial Blood Pressure 88/54 Arterial Blood Pressure 95/56 Arterial Blood Pressure 88/52 Arterial Blood Pressure 91/54 Arterial Blood Pressure 88/53 Arterial Blood Pressure 88/54 Arterial Blood Pressure 89/56 Arterial Blood Pressure 87/55 Arterial Blood Pressure 87/55 Arterial Blood Pressure 73/48 Arterial Blood Pressure 92/58 Arterial Blood Pressure 98/63 Arterial Blood Pressure 102/64 Arterial Blood Pressure 102/65 Arterial Blood Pressure 103/64 Arterial Blood Pressure 79/54 Arterial Blood Pressure 101/65 Arterial Blood Pressure 99/64 Arterial Blood Pressure 102/64 Arterial Blood Pressure 105/65 Arterial Blood Pressure 104/65 Arterial Blood Pressure 101/65 Arterial Blood Pressure 102/64 Arterial Blood Pressure 97/61 Arterial Blood Pressure 105/65 Arterial Blood Pressure 102/65 Arterial Blood Pressure 104/66 Physical Exam: Revealed a 51-year-old white male, morbidly obese, on mechanical ventilation, sedated, in no distress at present. HEENT:[ Short obese neck. Neck is supple.] [No neck masses.] [No thyromegaly.] [No JVD.] PERRLA, EOMI, moist mucous membranes. Endotracheal tube is intact. Chest: [Diminished breath sounds at the bases, no crackles nor rhonchi no wheezes.] Cardiac Exam: [Normal S1 and S2, no S3 gallop, no murmur.] Abdomen: [Obese, Soft, nontender, no megaly, no rebound, no guarding, normal bowel sounds.] Extremities: [No clubbing, no edema, no cyanosis. Significant muscle atrophy and wasting of muscles noted in lower extremities, patient is paraplegic.] Neurological Exam: [No focal neurologic deficit. Except for paraplegia from the waist down. Lymphatics: No lymphadenopathy. Psychiatric: Normal mood, affect, and cannot fully assess mental status exam.] Results - Laboratory Findings CBC and BMP: 04/01/17 04:15 04/01/17 04:15 ABG ABG pH 7.23 (7.35-7.45) L 04/01/17 08:16 ABG pCO2 31 mmHg (35-45) L 04/01/17 08:16 ABG pO2 136 mmHg (83-108) H 04/01/17 08:16 ABG O2 Saturation 99.0 % (94-97) H 04/01/17 08:16 PT/INR, D-dimer PT 11.9 sec (9.0-12.0) 04/01/17 05:19 INR 1.3 (<1.2) H 04/01/17 05:19 Abnormal lab findings: Abnormal Labs 03/29/17 03/29/17 03/29/17 19:12 19:12 19:12 WBC 12.7 H RBC 5.99 H Hgb Hct Neutrophils # 9.3 H Neutrophils # (Manual) Lymphocytes # INR APTT ABG pH ABG pCO2 ABG pO2 ABG HCO3 ABG O2 Saturation ABG Lactic Acid Sodium 129 L Potassium 3.4 L Chloride 89 L Carbon Dioxide 19 L BUN 101 H* Creatinine 2.05 H Glucose 122 H POC Glucose (mg/dL) Calcium 10.6 H Ionized Calcium Yuval Phosphorus AST Creatine Kinase Total Protein 9.0 H Albumin Urine RBC >182 H Urine WBC 31 H Urine WBC Clumps Many H Urine Bacteria Many H Urine Mucus Few H 03/29/17 03/30/17 03/30/17 20:30 08:03 08:03 WBC 13.1 H RBC Hgb Hct Neutrophils # 11.4 H Neutrophils # (Manual) Lymphocytes # 0.9 L INR APTT ABG pH ABG pCO2 ABG pO2 ABG HCO3 ABG O2 Saturation ABG Lactic Acid Sodium 130 L Potassium Chloride 94 L Carbon Dioxide 20 L BUN 106 H* 108 H* Creatinine 2.36 H Glucose 118 H POC Glucose (mg/dL) Calcium Ionized Calcium Yuval Phosphorus AST Creatine Kinase 175 H Total Protein Albumin Urine RBC Urine WBC Urine WBC Clumps Urine Bacteria Urine Mucus 03/31/17 03/31/17 03/31/17 07:54 07:54 17:50 WBC 11.1 H RBC Hgb 12.9 L Hct 38.4 L Neutrophils # 9.5 H Neutrophils # (Manual) Lymphocytes # 0.8 L INR APTT ABG pH ABG pCO2 ABG pO2 ABG HCO3 ABG O2 Saturation ABG Lactic Acid Sodium 134 L Potassium Chloride Carbon Dioxide 20 L BUN 83 H* Creatinine 1.79 H Glucose POC Glucose (mg/dL) Calcium 8.0 L Ionized Calcium Yuval 3.6 L Phosphorus AST 16 L Creatine Kinase Total Protein Albumin 3.4 L Urine RBC Urine WBC Urine WBC Clumps Urine Bacteria Urine Mucus 03/31/17 04/01/17 04/01/17 23:13 04:15 04:15 WBC 34.4 H* RBC 4.16 L Hgb 11.7 L Hct 36.4 L Neutrophils # Neutrophils # (Manual) 34.40 H Lymphocytes # INR APTT ABG pH ABG pCO2 ABG pO2 ABG HCO3 ABG O2 Saturation ABG Lactic Acid Sodium Potassium 2.9 L* Chloride 112 H Carbon Dioxide 14 L BUN 47 H Creatinine 1.50 H Glucose 246 H POC Glucose (mg/dL) 192 H Calcium 5.9 L* Ionized Calcium Yuval 3.9 L Phosphorus 2.4 L AST Creatine Kinase Total Protein Albumin Urine RBC Urine WBC Urine WBC Clumps Urine Bacteria Urine Mucus 04/01/17 04/01/17 04/01/17 04:15 04:16 05:19 WBC RBC Hgb Hct Neutrophils # Neutrophils # (Manual) Lymphocytes # INR 1.3 H APTT 33.9 H ABG pH ABG pCO2 ABG pO2 ABG HCO3 ABG O2 Saturation ABG Lactic Acid 5.1 H* Sodium Potassium Chloride Carbon Dioxide BUN Creatinine Glucose POC Glucose (mg/dL) 237 H Calcium Ionized Calcium Yuval Phosphorus AST Creatine Kinase Total Protein Albumin Urine RBC Urine WBC Urine WBC Clumps Urine Bacteria Urine Mucus 04/01/17 04/01/17 04/01/17 08:10 08:16 09:45 WBC RBC Hgb Hct Neutrophils # Neutrophils # (Manual) Lymphocytes # INR APTT ABG pH 7.23 L ABG pCO2 31 L ABG pO2 136 H ABG HCO3 13 L ABG O2 Saturation 99.0 H ABG Lactic Acid 5.1 H* Sodium Potassium Chloride Carbon Dioxide BUN Creatinine Glucose POC Glucose (mg/dL) 286 H Calcium Ionized Calcium Yuval Phosphorus AST Creatine Kinase Total Protein Albumin Urine RBC Urine WBC Urine WBC Clumps Urine Bacteria Urine Mucus 04/01/17 04/01/17 04/01/17 10:33 11:02 12:01 WBC RBC Hgb Hct Neutrophils # Neutrophils # (Manual) Lymphocytes # INR APTT ABG pH ABG pCO2 ABG pO2 ABG HCO3 ABG O2 Saturation ABG Lactic Acid Sodium Potassium Chloride Carbon Dioxide BUN Creatinine Glucose POC Glucose (mg/dL) 222 H 244 H 204 H Calcium Ionized Calcium Yuval Phosphorus AST Creatine Kinase Total Protein Albumin Urine RBC Urine WBC Urine WBC Clumps Urine Bacteria Urine Mucus - Diagnostic Findings Chest x-ray: image reviewed ((2 cardiac opacity and atelectasis as well as left pleural effusion is suspected) Assessment and Plan Assessment: Impression: 1 acute septic shock secondary to urinary tract infection, acute cystitis secondary to Enterobacter aerogenes 2 acute hypoxic respiratory failure secondary to above. 3 acute metabolic, lactic acidosis secondary to 1. 4 history of paraplegia and neurogenic bladder. 5 acute kidney injury secondary to sepsis and septic shock. 6 history of nephrolithiasis/bilateral. 7 history of multiple surgeries including skin graft for pressure sores, right ureteroscopy with lithotripsy in 2005 and external sphincterotomy 1990 and 1994. Recommendation: Continue present antibiotics, ventilatory support, hemodynamic support, nutritional support, GI and DVT prophylaxis, we'll likely arrange for a central line placement and this patient, his venous access is mostly peripheral, but will try to arrange for a right femoral triple-lumen catheter or possibly a right subclavian central line in this patient. Patient is critically ill. Discussed his condition with his family at bedside. Critical care time is over 1 hour. Time with Patient: Greater than 30
[2017-04-01 13:20] LABS: Glucose,Whole Blood 199 mg/dL (75-99)
[2017-04-01 13:27] LABS: Hemoglobin A1C 5.6 % (4.0-6.0)
[2017-04-01 13:49] LABS: HCT 35.4 % (39.0-53.0); HGB 12.1 gm/dL (13.0-17.5); MCH 29.6 pg (25.0-35.0); MCHC 34.1 g/dL (31.0-37.0); MCV 86.9 fL (80.0-100.0); Mean Platelet Volume 7.6; Platelet Count 220 k/uL (150-450); RBC 4.08 m/uL (4.30-5.90); RDW 14.2 % (11.5-15.5); WBC 7.3 k/uL (3.8-10.6)
[2017-04-01 14:31] LABS: Large Platelets Present; Poikilocytosis (M) Present
[2017-04-01] MEDS: NOREPINEPHRIN 16 MG-0.9%NS PMX 16 MG/250 ML ML IV SCH ×3 (14:33→20:43)
[2017-04-01 14:38] LABS: Glucose,Whole Blood 160 mg/dL (75-99)
[2017-04-01 15:18] LABS: Glucose,Whole Blood 190 mg/dL (75-99)
[2017-04-01 16:21] LABS: Glucose,Whole Blood 193 mg/dL (75-99)
--- NOTE | 2017-04-01 16:43 | EEG ---
ELECTROENCEPHALOGRAM REPORT DATE OF SERVICE: 04/01/2017. REASON FOR TESTING: Seizures. CURRENT ANTIEPILEPTIC MEDICATIONS: Keppra. DESCRIPTION OF THE PROCEDURE: This EEG was performed using a 21 channel digital electroencephalograph, following international 10-20 system. DESCRIPTION OF THE RECORDING: From the beginning of the tracing, and with patient's eyes closed, the background rhythm was mostly consisting of 9 Hz alpha frequency in the posterior occipital leads. No obvious asymmetry is seen. Frequent movement and muscle artifacts are seen. Photic stimulation was performed with a minimal driving response seen. No pathological waves were elicited. Epileptiform discharges were seen later in the tracing. These were lasting approximately 5 seconds. During these episodes, the aircraft launch and recovery technician noted some head jerking clinically. Hyperventilation was not performed. The patient remains awake throughout the tracing. His EKG lead showed a regular rate and rhythm. INTERPRETATION: This awake EEG is abnormal due to the presence of rare generalized epileptiform discharges, consistent with epileptic activity. Clinical correlation is recommended. MMTICOL / IJDeepa: [id number] /
--- NOTE | 2017-04-01 17:02 | XR ---
EXAMINATION TYPE: XR chest 1V portable DATE OF EXAM: 04/01/2017 COMPARISON: March 31 2017 HISTORY: Shortness of breath, ventilator dependent TECHNIQUE: Single frontal view of the chest is obtained. FINDINGS: There is moderate left-sided pleural effusion with resultant passive atelectasis. The righ t lung is clear. There is no right-sided pleural effusion. The cardiac silhouette is difficult to rigoberto luate. There is an enteric tube noted going below the film. An endotracheal tube is between the clavi cles and rosmery. IMPRESSION: No significant change in appearance of the chest.
[2017-04-01 17:15] LABS: Glucose,Whole Blood 196 mg/dL (75-99)
[2017-04-01 17:16] LABS: ALT 30 U/L (21-72); AST 16 U/L (17-59); Albumin 1.7 g/dL (3.5-5.0); Alkaline Phosphatase 56 U/L (38-126); Anion Gap 12 mmol/L; Blood Urea Nitrogen 51 mg/dL (9-20); Carbon Dioxide 11 mmol/L (22-30); Chloride 115 mmol/L (98-107); Glucose 70 mg/dL (74-99); Phosphorus 2.4 mg/dL (2.5-4.5); Sodium 138 mmol/L (137-145); Total Protein 3.7 g/dL (6.3-8.2)
[2017-04-01 17:17] LABS: Potassium 2.4 mmol/L (3.5-5.1)
[2017-04-01] MEDS ORDERED: POTASSIUM CHLORIDE 20 MEQ in WATER FOR INJECTION 1 100ML.BAG IVPB ONE (17:33)
--- NOTE | 2017-04-01 17:41 | PN ---
PROGRESS NOTE The patient is being seen for Dr. Owens. The patient is in ICU, remains intubated. The patient developed seizure-like activity on the medical floor yesterday and was transferred to ICU. He is being treated for severe sepsis secondary to gram-negative bacteremia. The patient is unconscious , remains intubated. VITAL SIGNS: Temperature 98, pulse 108, respiration 20, blood pressure 83/49, O2 saturation 97%. He is on the ventilator. HEENT: Atraumatic, normocephalic. Pupils equal and reactive to light. Buccal mucosa is fair. Neck is supple. LUNGS: Harsh breath sounds bilaterally. No rales or rhonchi. HEART: Tachycardic. Regular rhythm. ABDOMEN: Soft, nontender, nondistended. Bowel sounds positive. EXTREMITIES: No edema clubbing or cyanosis. LABS: Labs are CBC: White blood count of 34.4, hemoglobin 11.7, hematocrit 36.4, and platelet count of 250. Chemical profile: Sodium 140, potassium 2.9, chloride 112, bicarb 14, BUN 27, creatinine 1.5, and glucose of 246. Repeat blood and urine cultures were done in the evening. ASSESSMENT: 1. Severe sepsis with hypotension secondary to gram-negative bacteremia secondary to Enterobacter urinary tract infection. 2. New onset seizures. 3. Acute renal failure with uremia. 4. Severe marked hypokalemia. 5. Metabolic acidosis The patient remains in ICU, remains on IV antibiotics. ID and roll tension tester are following. Plan is to continue current medications at this point and any further recommendations per roll tension tester. MMODL / IJN: [id number] / MTDD
[2017-04-01 18:10] LABS: Glucose,Whole Blood 214 mg/dL (75-99)
[2017-04-01] MEDS: HYDROmorphone 1 MG/ML 1 ML SYRINGE IVP PRN (18:25)
--- NOTE | 2017-04-01 18:27 | PCN ---
PROCEDURE NOTE PROCEDURE PERFORMED: Placement of a right femoral triple-lumen catheter. PREOPERATIVE DIAGNOSES: Acute septic shock and hypotension as well as respiratory failure. POSTOPERATIVE DIAGNOSES: Acute septic shock and hypotension as well as respiratory failure. ANESTHESIA: Used 2 mL of 1% lidocaine. PROCEDURE: The patient was placed in a supine position, the right groin was prepared in a sterile fashion and drapes were applied. The area was locally anesthetized with lidocaine. Then, the right femoral vein was cannulated easily and a guidewire was placed. Dilatation of the skin and the vessel was done with the dilator, then a triple-lumen catheter was inserted over the guidewire, the guidewire was removed. Good blood flow was noted in the 3 different ports of the triple-lumen catheter, and the line was secured using 3.0 silk sutures. Procedure was well tolerated, no evidence of any immediate complications. MMODL / IJN: [id number] /
--- NOTE | 2017-04-01 18:33 | CONS ---
CONSULTATION DATE OF SERVICE: 04/01/2017. REASON FOR CONSULTATION: Septic shock. HISTORY OF PRESENT ILLNESS: The patient is a 51-year-old male with a past medical history significant for paraplegia secondary to an injury that he sustained at the age of 18. The patient did have a neurogenic bladder, however, has been treated with enterotomy in and being managed with indwelling catheter. For the last week the patient did have a dark urine with some odor to it. He presented to the ER at [facility] on with chief complaints of some chills, dark urine, and gross hematuria as the patient was unable to void. Subsequently the patient was evaluated by the ER physician. On arrival to the ER on the the patient was afebrile. His white count was slightly elevated at 12.7, repeat has been 13.1. The patient urine did show some blood with more than 1-2 RBCs, WBC and many bacteria in clumps. The patient has been treated with oral Levaquin. The patient did have a cystoscopy done by Dr. Coburn on the when the patient noticed to have a hemorrhagic cystitis. Latter in the afternoon the patient had become unresponsive and hypotensive for with the patient has been transferred down to the ICU. Patient received multiple fluid boluses and has been intubated to protect his airways. I was consulted for further recommendation of antibiotic therapy. Patient was initially started on Zosyn and Levaquin, which was discontinued. However, later on on discussion with the patient's nurse taking care of him, at around midnight antibiotic was brought in meropenem to cover for possible ESBL pathogen. The patient remains to be intubated on the vent and is currently requiring pressor support in the form of Levophed 75 mcg in addition to the vasopressor. He is on the vent, unable to provide history. Most of the information has been from review of the chart and talking to nursing staff as no family member is available at the bedside. REVIEW OF SYSTEMS: Could not be obtained. The positive points have been mentioned in HPI. 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 Did have history of right ureteroscopy and lithotripsy and external enterotomy in 1994 and 1990. SOCIAL HISTORY: No history of smoking, drinking, drug use. FAMILY HISTORY: No pertinent findings noticed. ALLERGIES: SULFA. MEDICATION: Medications include the patient is currently on Tylenol, DuoNeb, Dilaudid, meropenem 1 g q.8, Narcan, Levophed, Protonix, propofol, vasopressor. EXAMINATION: Blood pressure is 91/50 with a pulse of 110, temperature of a 98. He is 97% on 50% FiO2. General description is a middle-aged male lying in bed in no distress, currently intubated on the vent. HEENT EXAMINATION: No pallor or scleral icterus. The patient is orally intubated limiting examination of oral cavity. NECK: Trachea central. No thyromegaly. LUNGS: Unlabored breathing. Clear to auscultation anteriorly. No wheeze or crackle. HEART: S1, S2. Regular rate.no loud murmur ABDOMEN: Soft, no tenderness. No guarding or rigidity. EXTREMITIES: Some trace edema feet. SKIN EXAMINATION: No rash. No mass palpable. NEUROLOGIC: The patient is sedated on the vent. LABS: Hemoglobin 11.9, white count 34.4. BUN is 47, creatinine 1.50. Potassium was 2.29. Urine on the shows many WBC clumps. Urine culture showing Enterobacter aeruginosa and other gram-negative sensitivities pending. Enterobacter did have significant resistant pattern. Blood cultures showing a gram-negative. DIAGNOSTIC IMPRESSION AND PLAN: Patient with sepsis with septic shock, source is urinary in this patient who presented to hospital with cloudy, foul smelling urine with gross hematuria status post cystoscopy with evidence of hemorrhagic cystitis, failing the Levaquin therapy and now with urine showing Enterobacter that was resistant to the Levaquin; however, also did show multiple antibiotic and another gram-negative in the urine with ID sensitivity currently pending with question of possibly ESBL pathogen. PLAN: 1. Antibiotics in the form of meropenem 1 g q.8h should cover for the Enterobacter as well as get the gram-negative currently growing in the urine as well in the blood. 2. Aggressive IV fluid. 3. will need to monitor his kidney function as well as cultures closely 4. Depending upon his clinical response as well as cultures will adjust her medications further if needed. Thank you for this consultation. Will follow this patient along with you. MMODL / IJN: [id number] / [facility]ERE[facility]ías
[2017-04-01 18:59] LABS: Glucose,Whole Blood 175 mg/dL (75-99)
[2017-04-01] MEDS: SODIUM CHLORIDE 0.9% 1,000 ML IV PRN ×3 (19:29→22:00)
--- NOTE | 2017-04-01 19:44 | P.CNNES ---
History of Present Illness Consult date: 04/01/17 Requesting physician: Marito Owens Reason for Consult: Seizure Chief complaint: Seizure History of Present Illness: Neurology is consulting on a 51 year old male with past history of paraplegia as a result of spianl cord injury at age 18. Patient has been having foul smelling urine and was being managed for infectious process at time of consult. Patient originally presented on 03/29/17 to the ED with chills, dark urine, gross hematuria and inability to void. Urine analysis noted clumped bacteria and many WBC's . While the patient was being treated, he was moved from the ED to the ICU and neurology consulted for possible seizure. At the time of occurrence, the patient was hypotensive and unresponsive in septic shock. Fluids were given, antibiotics including zosyn and levaquin were administered which were discontinued for concern of reduced seizure threshold. Patient at contact was intubated on the ventilator but would communicate by blinking his eyes. He was AOx3, unable to move his extremities (UE or LE). He could answer questions as noted. He had family at the bedside and was in no acute distress. Review of Systems All systems not noted in HPI are negative. 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- History of Any Multi-Drug Resistant Organisms: MRSA Date of last positivie culture/infection: 2011 MDRO Source:: skin graft left buttock Additional Past Surgical History / Comment(s): multiple surgeries/skin grafts for pressure sores, right ureteroscopy with lithotripsy in 2005, external sphincetrotomy 1990 and 1994. Past Anesthesia/Blood Transfusion Reactions: No Reported Reaction Past Psychological History: No Psychological Hx Reported Smoking Status: Never smoker Past Alcohol Use History: None Reported Past Drug Use History: None Reported - Past Family History Mother Family Medical History: No Reported History Father Family Medical History: No Reported History Medications and Allergies Home Medications Medication Instructions Recorded Confirmed Type Lansoprazole [Prevacid] 15 mg PO DAILY 03/29/17 03/29/17 History Allergies Allergy/AdvReac Type Severity Reaction Status Date / Time Sulfa (Sulfonamide Allergy Rash/Hives Verified 03/29/17 18:49 Antibiotics) Physical Examination - Vital Signs Vital Signs: Vital Signs Temp Pulse Resp BP Pulse Ox 04/01/17 19:00 114 H 20 96 04/01/17 18:30 119 H 20 96 04/01/17 18:00 122 H 32 H 85/47 96 04/01/17 17:30 114 H 28 H 98 04/01/17 17:02 100 04/01/17 17:00 98 20 98 04/01/17 16:30 118 H 20 103/71 97 04/01/17 16:09 111 H 04/01/17 16:00 98.0 F 108 H 20 97 04/01/17 15:30 112 H 20 98/51 97 04/01/17 15:23 97 04/01/17 15:00 108 H 19 97 04/01/17 14:30 110 H 20 97 04/01/17 14:00 114 H 27 H 84/58 96 04/01/17 13:30 112 H 20 96 04/01/17 13:00 106 H 20 95 04/01/17 12:45 113 H 21 95 04/01/17 12:30 111 H 20 97 04/01/17 12:15 114 H 20 97 04/01/17 12:00 98.0 F 114 H 20 96 04/01/17 11:56 101 H 04/01/17 11:48 96 04/01/17 11:45 115 H 22 96 04/01/17 11:42 106 H 04/01/17 11:30 106 H 20 133/76 97 04/01/17 11:15 111 H 21 96 04/01/17 11:00 97.2 F L 112 H 26 H 96 04/01/17 10:45 106 H 20 97 04/01/17 10:30 108 H 22 104/57 96 04/01/17 10:15 110 H 26 H 104/57 96 04/01/17 10:00 109 H 25 H 104/57 97 04/01/17 09:45 97.9 F 108 H 24 104/57 97 04/01/17 09:30 107 H 22 101/61 94 L 04/01/17 09:15 104 H 23 101/61 99 04/01/17 09:00 96.3 F L 103 H 25 H 101/61 96 04/01/17 08:45 107 H 25 H 101/61 96 04/01/17 08:30 105 H 22 95/48 97 04/01/17 08:15 109 H 22 95/48 95 04/01/17 08:00 96.1 F L 109 H 22 95/48 96 04/01/17 07:50 103 H 04/01/17 07:39 103 H 04/01/17 07:30 106 H 22 111/70 99 04/01/17 07:20 104 H 20 111/70 99 04/01/17 07:10 101 H 20 111/70 99 04/01/17 07:00 106 H 21 111/70 99 04/01/17 06:50 95.2 F L 106 H 21 111/70 99 04/01/17 06:40 108 H 21 111/70 99 04/01/17 06:30 111 H 22 99 04/01/17 06:20 106 H 20 99 04/01/17 06:10 102 H 20 99 04/01/17 06:00 106 H 21 99 04/01/17 05:50 106 H 20 99 04/01/17 05:40 106 H 20 99 04/01/17 05:30 107 H 22 99 04/01/17 05:20 106 H 20 99 04/01/17 05:10 108 H 24 99 04/01/17 05:00 95 F L 108 H 22 99 04/01/17 04:50 111 H 22 99 04/01/17 04:40 112 H 23 99 04/01/17 04:30 114 H 22 80/52 99 04/01/17 04:20 112 H 21 118/56 99 04/01/17 04:10 116 H 22 118/56 99 04/01/17 04:00 94.3 F L 113 H 20 118/56 99 04/01/17 03:50 112 H 20 118/56 99 04/01/17 03:40 113 H 20 118/56 99 04/01/17 03:32 112 H 04/01/17 03:30 111 H 20 111/56 100 04/01/17 03:20 115 H 20 111/56 100 04/01/17 03:10 111 H 20 111/56 100 04/01/17 03:00 111 H 20 111/56 99 04/01/17 02:50 112 H 20 111/56 99 04/01/17 02:40 113 H 20 111/56 99 04/01/17 02:30 117 H 26 H 113/69 99 04/01/17 02:20 116 H 20 113/69 99 04/01/17 02:10 116 H 20 99/59 99 04/01/17 02:00 116 H 20 99/59 99 04/01/17 01:50 117 H 22 99/59 99 04/01/17 01:40 117 H 21 99/59 99 04/01/17 01:30 118 H 20 90/61 99 04/01/17 01:20 118 H 20 90/61 99 04/01/17 01:10 121 H 20 112/76 99 04/01/17 01:00 126 H 32 H 112/76 99 04/01/17 00:50 122 H 20 112/76 99 04/01/17 00:40 123 H 20 112/76 99 04/01/17 00:30 125 H 21 109/67 99 04/01/17 00:20 142 H 21 109/67 99 04/01/17 00:10 129 H 23 109/67 99 04/01/17 00:00 96.1 F L 123 H 20 109/67 99 03/31/17 23:50 128 H 20 109/67 99 03/31/17 23:40 129 H 20 109/67 99 03/31/17 23:30 121 H 20 130/71 99 03/31/17 23:20 124 H 20 130/71 99 03/31/17 23:10 129 H 20 130/71 99 03/31/17 23:00 127 H 20 130/71 99 Intake and Output 04/01/17 04/01/17 04/01/17 06:59 14:59 22:59 Intake Total 6965.875 4870.201 2574.558 Output Total 2600 5400 2505 Balance 4365.875 -529.799 69.558 Intake: IV 5381.5 2886 2290 Calcium Gluconate 100 D5W with 3 amps Sodium 800 575 Bicarb Dextrose 5% in Water 1, 500 500 000 ml @ 125 mls/hr IV . Q9H12M MANDA with Sodium Bicarb (1 Meq/ml) 150 ml Rx#:[id number] Dextrose 5% in Water 1, 150 000 ml @ 150 mls/hr IV . Q7H40M MANDA with Sodium Bicarb (1 Meq/ml) 150 ml Rx#:[id number] Magnesium Sulfate 100 100 Normal Saline 4200 1150 Piperacillin-Tazobactam 3 50 .375 gm In Dextrose/Water 1 50ml.bag @ 12.5 mls/hr IVPB Q8HR [facility] Rx#: [id number] Potassium Chloride 20 meq 50 In Water For Injection 1 100ml.bag @ 50 mls/hr IVPB ONCE ONE Rx#: [id number] Pressure Bag 24 21 15 Sodium Chloride 0.9% 1, 250 1425 000 ml @ 125 mls/hr IV . Q8H MANDA Rx#:[id number] Sodium Chloride 0.9% 1, 150 000 ml @ 150 mls/hr IV . Q6H40M [facility] Rx#:[id number] Sodium Phosphate 125 125 Vasopressin 120 15 Zosyn 12.5 Intake, IV Titration 0809.859 4882.201 284.558 Amount Insulin Regular 100 unit 20.049 15.251 In Sodium Chloride 0.9% 100 ml @ Per Protocol IV .Q0M [facility] Rx#:[id number] Meropenem 1 gm In Sodium 100 Chloride 0.9% 100 ml @ 200 mls/hr IVPB Q8H [facility] Rx#:[id number] Norepinephrin 16 mg-0.9% 250.000 Ns Pmx 16 mg In 250 ml @ Titrate IV .Q0M [facility] Rx#: [id number] Norepinephrin 4 mg-0.9% 1299.919 7951.812 Ns Pmx 4 mg In 250 ml @ Titrate IV .Q0M [facility] Rx#: [id number] Propofol 1,000 mg In 26.34 19.307 Empty Bag 1 bag @ Titrate IV .Q0M [facility] Rx#: [id number] Output: Gastric Drainage 650 100 Urine 2600 4700 2405 Emesis 50 Other: Voiding Method Indwelling Catheter Indwelling Catheter Indwelling Catheter ABP, PAP, CO, CI - Last 8 Hours Arterial Blood Pressure 82/47 Arterial Blood Pressure 90/50 Arterial Blood Pressure 84/50 Arterial Blood Pressure 56/35 Arterial Blood Pressure 86/49 Arterial Blood Pressure 81/49 Arterial Blood Pressure 83/49 Arterial Blood Pressure 85/51 Arterial Blood Pressure 84/47 Arterial Blood Pressure 91/50 Arterial Blood Pressure 84/46 Arterial Blood Pressure 82/49 Arterial Blood Pressure 73/42 Arterial Blood Pressure 84/48 Arterial Blood Pressure 85/49 Arterial Blood Pressure 83/59 Arterial Blood Pressure 69/69 Arterial Blood Pressure 85/56 Arterial Blood Pressure 45/45 Arterial Blood Pressure 85/55 Constitutional: AOx3, cooperative, intubated and on ventilator HEENT: NC/AT, no facial asymmetry is seen. Throat: Supple, no masses Respiratory: No increased work of breathing Cardiac: Regular rate and Rhythm GI: non tender, non distended Musculoskeletal: Septic Tank Setter strengths are absent in upper extremities. Lower extremities are unable to be moved due to prior spinal cord injury Neurological: CN II-XII in tact, patient was AOx3, speech and language are normal, no unilateralizing weakness, no seizure activity note on physical exam. Sensation in the face was normal. Patient has no sensation in the UE or LE's Integementary: no rash, no erythema Psychiatric: mood and affect appropriate Results - Laboratory Findings CBC and BMP: 04/01/17 04:15 04/01/17 17:06 Abnormal Lab Findings: Abnormal Labs 03/29/17 03/29/17 03/29/17 19:12 19:12 19:12 WBC 12.7 H RBC 5.99 H Hgb Hct Neutrophils # 9.3 H Neutrophils # (Manual) Lymphocytes # INR APTT ABG pH ABG pCO2 ABG pO2 ABG HCO3 ABG O2 Saturation ABG Lactic Acid Sodium 129 L Potassium 3.4 L Chloride 89 L Carbon Dioxide 19 L BUN 101 H* Creatinine 2.05 H Glucose 122 H POC Glucose (mg/dL) Plasma Lactic Acid Aaron Calcium 10.6 H Ionized Calcium Yuval Phosphorus Magnesium Total Bilirubin AST Creatine Kinase Total Protein 9.0 H Albumin Urine RBC >182 H Urine WBC 31 H Urine WBC Clumps Many H Urine Bacteria Many H Urine Mucus Few H 03/29/17 03/30/17 03/30/17 20:30 08:03 08:03 WBC 13.1 H RBC Hgb Hct Neutrophils # 11.4 H Neutrophils # (Manual) Lymphocytes # 0.9 L INR APTT ABG pH ABG pCO2 ABG pO2 ABG HCO3 ABG O2 Saturation ABG Lactic Acid Sodium 130 L Potassium Chloride 94 L Carbon Dioxide 20 L BUN 106 H* 108 H* Creatinine 2.36 H Glucose 118 H POC Glucose (mg/dL) Plasma Lactic Acid Aaron Calcium Ionized Calcium Yuval Phosphorus Magnesium Total Bilirubin AST Creatine Kinase 175 H Total Protein Albumin Urine RBC Urine WBC Urine WBC Clumps Urine Bacteria Urine Mucus 1203/31/17 03/31/17 07:54 07:54 17:50 WBC 11.1 H RBC 4.08 L Hgb 12.9 L 12.1 L Hct 38.4 L 35.4 L Neutrophils # 9.5 H Neutrophils # (Manual) Lymphocytes # 0.8 L INR APTT ABG pH ABG pCO2 ABG pO2 ABG HCO3 ABG O2 Saturation ABG Lactic Acid Sodium 134 L Potassium Chloride Carbon Dioxide 20 L BUN 83 H* Creatinine 1.79 H Glucose POC Glucose (mg/dL) Plasma Lactic Acid Aaron Calcium 8.0 L Ionized Calcium Yuval Phosphorus Magnesium Total Bilirubin AST 16 L Creatine Kinase Total Protein Albumin 3.4 L Urine RBC Urine WBC Urine WBC Clumps Urine Bacteria Urine Mucus 03/31/17 03/31/17 03/31/17 17:50 17:50 17:50 WBC RBC Hgb Hct Neutrophils # Neutrophils # (Manual) Lymphocytes # INR APTT ABG pH ABG pCO2 ABG pO2 ABG HCO3 ABG O2 Saturation ABG Lactic Acid Sodium Potassium 2.4 L* Chloride 115 H Carbon Dioxide 11 L BUN 51 H Creatinine 1.30 H Glucose 70 L POC Glucose (mg/dL) Plasma Lactic Acid Aaron 4.2 H* Calcium 5.0 L* Ionized Calcium Yuval 3.6 L Phosphorus 2.4 L Magnesium 1.0 L* Total Bilirubin 2.0 H AST 16 L Creatine Kinase Total Protein 3.7 L Albumin 1.7 L Urine RBC Urine WBC Urine WBC Clumps Urine Bacteria Urine Mucus 03/31/17 03/31/17 04/01/17 23:10 23:13 04:15 WBC 34.4 H* RBC 4.16 L Hgb 11.7 L Hct 36.4 L Neutrophils # Neutrophils # (Manual) 34.40 H Lymphocytes # INR APTT ABG pH ABG pCO2 ABG pO2 ABG HCO3 ABG O2 Saturation ABG Lactic Acid 6.0 H* Sodium Potassium Chloride Carbon Dioxide BUN Creatinine Glucose POC Glucose (mg/dL) 192 H Plasma Lactic Acid Aaron Calcium Ionized Calcium Yuval Phosphorus Magnesium Total Bilirubin AST Creatine Kinase Total Protein Albumin Urine RBC Urine WBC Urine WBC Clumps Urine Bacteria Urine Mucus 04/01/17 04/01/17 04/01/17 04:15 04:15 04:16 WBC RBC Hgb Hct Neutrophils # Neutrophils # (Manual) Lymphocytes # INR APTT ABG pH ABG pCO2 ABG pO2 ABG HCO3 ABG O2 Saturation ABG Lactic Acid 5.1 H* Sodium Potassium 2.9 L* Chloride 112 H Carbon Dioxide 14 L BUN 47 H Creatinine 1.50 H Glucose 246 H POC Glucose (mg/dL) 237 H Plasma Lactic Acid Aaron Calcium 5.9 L* Ionized Calcium Yuval 3.9 L Phosphorus 2.4 L Magnesium Total Bilirubin AST Creatine Kinase Total Protein Albumin Urine RBC Urine WBC Urine WBC Clumps Urine Bacteria Urine Mucus 04/01/17 04/01/17 04/01/17 05:19 08:10 08:16 WBC RBC Hgb Hct Neutrophils # Neutrophils # (Manual) Lymphocytes # INR 1.3 H APTT 33.9 H ABG pH 7.23 L ABG pCO2 31 L ABG pO2 136 H ABG HCO3 13 L ABG O2 Saturation 99.0 H ABG Lactic Acid Sodium Potassium Chloride Carbon Dioxide BUN Creatinine Glucose POC Glucose (mg/dL) 286 H Plasma Lactic Acid Aaron Calcium Ionized Calcium Yuval Phosphorus Magnesium Total Bilirubin AST Creatine Kinase Total Protein Albumin Urine RBC Urine WBC Urine WBC Clumps Urine Bacteria Urine Mucus 04/01/17 04/01/17 04/01/17 09:45 10:33 11:02 WBC RBC Hgb Hct Neutrophils # Neutrophils # (Manual) Lymphocytes # INR APTT ABG pH ABG pCO2 ABG pO2 ABG HCO3 ABG O2 Saturation ABG Lactic Acid 5.1 H* Sodium Potassium Chloride Carbon Dioxide BUN Creatinine Glucose POC Glucose (mg/dL) 222 H 244 H Plasma Lactic Acid Aaron Calcium Ionized Calcium Yuval Phosphorus Magnesium Total Bilirubin AST Creatine Kinase Total Protein Albumin Urine RBC Urine WBC Urine WBC Clumps Urine Bacteria Urine Mucus 04/01/17 04/01/17 04/01/17 12:01 12:03 13:14 WBC RBC Hgb Hct Neutrophils # Neutrophils # (Manual) Lymphocytes # INR APTT ABG pH ABG pCO2 ABG pO2 ABG HCO3 ABG O2 Saturation ABG Lactic Acid Sodium Potassium 3.2 L Chloride Carbon Dioxide BUN Creatinine Glucose POC Glucose (mg/dL) 204 H 199 H Plasma Lactic Acid Aaron Calcium Ionized Calcium Yuval Phosphorus Magnesium Total Bilirubin AST Creatine Kinase Total Protein Albumin Urine RBC Urine WBC Urine WBC Clumps Urine Bacteria Urine Mucus 04/01/17 04/01/17 04/01/17 13:15 14:37 15:16 WBC RBC Hgb Hct Neutrophils # Neutrophils # (Manual) Lymphocytes # INR APTT ABG pH ABG pCO2 ABG pO2 ABG HCO3 ABG O2 Saturation ABG Lactic Acid 4.9 H* Sodium Potassium Chloride Carbon Dioxide BUN Creatinine Glucose POC Glucose (mg/dL) 160 H 190 H Plasma Lactic Acid Aaron Calcium Ionized Calcium Yuval Phosphorus Magnesium Total Bilirubin AST Creatine Kinase Total Protein Albumin Urine RBC Urine WBC Urine WBC Clumps Urine Bacteria Urine Mucus 04/01/17 04/01/17 04/01/17 16:13 16:16 17:06 WBC RBC Hgb Hct Neutrophils # Neutrophils # (Manual) Lymphocytes # INR APTT ABG pH ABG pCO2 ABG pO2 ABG HCO3 ABG O2 Saturation ABG Lactic Acid Sodium Potassium 3.1 L Chloride Carbon Dioxide BUN Creatinine Glucose POC Glucose (mg/dL) 193 H Plasma Lactic Acid Aaron 4.6 H* Calcium Ionized Calcium Yuval Phosphorus Magnesium Total Bilirubin AST Creatine Kinase Total Protein Albumin Urine RBC Urine WBC Urine WBC Clumps Urine Bacteria Urine Mucus 04/01/17 04/01/17 04/01/17 17:11 18:08 18:58 WBC RBC Hgb Hct Neutrophils # Neutrophils # (Manual) Lymphocytes # INR APTT ABG pH ABG pCO2 ABG pO2 ABG HCO3 ABG O2 Saturation ABG Lactic Acid Sodium Potassium Chloride Carbon Dioxide BUN Creatinine Glucose POC Glucose (mg/dL) 196 H 214 H 175 H Plasma Lactic Acid Aaron Calcium Ionized Calcium Yuval Phosphorus Magnesium Total Bilirubin AST Creatine Kinase Total Protein Albumin Urine RBC Urine WBC Urine WBC Clumps Urine Bacteria Urine Mucus Assessment and Plan (1) Toxic metabolic encephalopathy Current Visit: Yes Status: Acute Code(s): G92 - TOXIC ENCEPHALOPATHY SNOMED Code(s): 665328960 (2) Acute respiratory failure requiring reintubation Current Visit: Yes Status: Acute Code(s): J96.00 - ACUTE RESPIRATORY FAILURE , UNSP W HYPOXIA OR HYPERCAPNIA SNOMED Code(s): 952276709 (3) Paraplegia following spinal cord injury Current Visit: Yes Status: Acute Code(s): G82.20 - PARAPLEGIA, UNSPECIFIED SNOMED Code(s): 14747118 (4) Seizure Current Visit: Yes Status: Acute Code(s): R56.9 - UNSPECIFIED CONVULSIONS SNOMED Code(s): 47664891 Plan: 1. Toxic metabolic encephalopthy 2. Seizure disorder, epilepsy 3. Spinal cord injury 4. Acute respiratory failure requiring ventilatory support Plan: Toxic metabolic encephalopathy: Patient does have encephalopathy as a result of the significant infectious process noted in his WBC results. Continue to treat underlying infectious process. Neuro checks as scheduled for baseline status with known spinal cord injury. Seizure disorder, epilepsy: Patient does not have a past history of seizure. Patient had new onset seizure and staff were unclear if the activity witnessed was a seizure or not. Based on the EEG results, it does appear that the patient has epilepsy that is a new diagnosis. Patient will be placed on keppra 1,000 mg, IV q12 hrs scheduled for seizure management. Seizure precautions are continued. Neurology will continue to follow and provide updates as needed or warranted. I discussed the patient's pertinent medical information with Dr. Thomas. He agrees with the plan of care as implemented.
[2017-04-01] MEDS: HYDROCORTISONE SUCCINATE 100 MG/2 ML VIAL IV SCH (19:47)
[2017-04-01] MEDS: levETIRAcetam IV 1,000 MG in SALINE 1 100ML.BAG IVPB SCH (20:06)
[2017-04-01 20:22] LABS: Glucose,Whole Blood 201 mg/dL (75-99)
[2017-04-01] MEDS ORDERED: VANCOMYCIN IV PER PHARMACY 1 EACH MISC MISCELLANE PRN (21:01)
[2017-04-01 21:17] LABS: Glucose,Whole Blood 195 mg/dL (75-99)
[2017-04-01] MEDS ORDERED: VANCOMYCIN 1,500 MG in SODIUM CHLORIDE 0.9% 250 ML IVPB SCH (21:30)
[2017-04-01 22:12] LABS: Glucose,Whole Blood 198 mg/dL (75-99)
[2017-04-01 23:59] LABS: Glucose,Whole Blood 191 mg/dL (75-99)
[2017-04-02 01:02] LABS: Glucose,Whole Blood 178 mg/dL (75-99)
[2017-04-02] MEDS: NOREPINEPHRIN 16 MG-0.9%NS PMX 16 MG/250 ML ML IV SCH ×7 (02:11→23:15)
[2017-04-02] MEDS: POTASSIUM CHLORIDE ORAL LIQUID 40 MEQ/30 ML CUP NG-TUBE SCH ×6 (02:11→17:25)
[2017-04-02] MEDS: INSULIN REGULAR 100 UNIT in SODIUM CHLORIDE 0.9% 100 ML IV SCH ×5 (02:11→23:10)
[2017-04-02] MEDS: DEXTROSE 5% IN WATER 1,000 ML with SODIUM BICARB (1 MEQ/ML) 150 ML IV SCH ×3 (02:12→13:56)
[2017-04-02] MEDS: SODIUM CHLORIDE 0.9% 1,000 ML IV SCH ×2 (02:16→14:19)
[2017-04-02 02:22] LABS: Glucose,Whole Blood 190 mg/dL (75-99)
[2017-04-02] MEDS: SODIUM CHLORIDE 0.9% 1,000 ML IV PRN ×4 (02:30→06:37)
[2017-04-02] MEDS: IPRATROPIUM-ALBUTEROL 3 ML NEB INHALATION SCH ×6 (03:06→23:13)
[2017-04-02 03:34] LABS: Glucose,Whole Blood 195 mg/dL (75-99)
[2017-04-02] MEDS: HYDROCORTISONE SUCCINATE 100 MG/2 ML VIAL IV SCH ×3 (03:34→20:01)
[2017-04-02] MEDS: MEROPENEM 1 GM in SODIUM CHLORIDE 0.9% 100 ML IVPB SCH ×3 (03:34→20:01)
[2017-04-02] MEDS: SODIUM CHLORIDE 0.9% 99 ML with VASOPRESSIN 20 UNIT IV SCH ×8 (03:45→23:11)
[2017-04-02 04:27] LABS: Glucose,Whole Blood 188 mg/dL (75-99)
[2017-04-02 04:46] LABS: HCT 33.9 % (39.0-53.0); HGB 11.5 gm/dL (13.0-17.5); MCH 28.8 pg (25.0-35.0); MCV 84.7 fL (80.0-100.0); Platelet Count 127 k/uL (150-450); RBC 4.01 m/uL (4.30-5.90)
[2017-04-02 04:49] LABS: WBC 36.3 k/uL (3.8-10.6)
[2017-04-02 04:59] LABS: Anion Gap 11 mmol/L; Blood Urea Nitrogen 20 mg/dL (9-20); Carbon Dioxide 22 mmol/L (22-30); Chloride 114 mmol/L (98-107); Glucose 206 mg/dL (74-99); Magnesium 1.1 mg/dL (1.6-2.3); Phosphorus 1.6 mg/dL (2.5-4.5); Potassium 3.1 mmol/L (3.5-5.1); Sodium 147 mmol/L (137-145)
[2017-04-02 05:11] LABS: Band Neutrophils % 5 %; Lymphocytes # (M) 0.73 k/uL (1.0-4.8); Monocytes # (M) 1.09 k/uL (0-1.0); Neutrophils % (M) 90 %; Nucleated Red Blood Cells 0 /100 WBC (0-0); Total Cells Counted 100
[2017-04-02 05:13] LABS: Glucose,Whole Blood 184 mg/dL (75-99)
[2017-04-02 05:21] LABS: Calcium 5.2 mg/dL (8.4-10.2)
[2017-04-02] MEDS ORDERED: POTASSIUM CHLORIDE ER 20 MEQ TAB.ER PO SCH (06:00)
[2017-04-02 06:28] LABS: Glucose,Whole Blood 180 mg/dL (75-99)
[2017-04-02] MEDS: POTASSIUM PHOSPHATE 10 MMOL in SODIUM CHLORIDE 0.9% 250 ML IV SCH ×2 (06:30→09:25)
[2017-04-02] MEDS: MAGNESIUM SULFATE-D5W PMX 1 GM in DEXTROSE/WATER 1 100ML.BAG IVPB SCH ×6 (06:30→18:13)
[2017-04-02] MEDS ORDERED: CALCIUM GLUCONATE 2,000 MG in SODIUM CHLORIDE 0.9% 100 ML IVPB ONE ×2 (07:00→16:00)
--- NOTE | 2017-04-02 07:07 | XR ---
EXAMINATION TYPE: XR chest 1V portable DATE OF EXAM: 04/02/2017 HISTORY: Tube placement. REFERENCE: Previous study dated 04/01/2017. FINDINGS: The patient is ET tube and NG tube remain in place, unchanged in appearance. The heart is enlarged. There is a left-sided effusion. Lungs are otherwise clear. IMPRESSION: NO SIGNIFICANT INTERVAL CHANGE IN THE APPEARANCE OF THE CHEST.
[2017-04-02 07:11] LABS: Glucose,Whole Blood 182 mg/dL (75-99)
[2017-04-02 07:14] LABS: ABG Base Excess -4.1 mmol/L; ABG HCO3 20 mmol/L (21-25); ABG PCO2 33 mmHg (35-45); ABG PO2 103 mmHg (83-108); ABG TCO2 21 mmol/L (19-24)
[2017-04-02] MEDS: PROPOFOL 1,000 MG in EMPTY BAG 1 BAG IV SCH (08:01)
[2017-04-02 08:20] LABS: Glucose,Whole Blood 191 mg/dL (75-99)
[2017-04-02] MEDS ORDERED: Potassium Replacement Protocol 1 EACH MISC MISCELLANE PRN ×2 (08:29→15:30)
[2017-04-02] MEDS ORDERED: ENOXAPARIN 40 MG/0.4 ML SYRINGE SQ SCH (09:00)
[2017-04-02 09:11] LABS: Glucose,Whole Blood 190 mg/dL (75-99)
[2017-04-02] MEDS ORDERED: DEXTROSE 5%-0.45% NACL 1,000 ML IV SCH (09:15)
--- NOTE | 2017-04-02 09:27 | P.PN ---
Subjective Progress Note Date: 04/02/17 Principal diagnosis: Seizure, toxic metabolic encephalopathy Neurology is following on a 51-year-old male with past history of spinal cord injury age 18. Patient has been having infectious process with noted urine culture abnormalities and changes that include activity. Many WBCs.. Patient originally presented on 03/29/2017 to the ED with chills, dark urine, gross hematuria and inability to void. While in the ICU, patient did experience what was reported to be a seizure. Initially there was questionable discussion regarding whether the activity was indeed a seizure. However, nursing staff relate that they believe that the occurrence was a seizure. EEG was performed yesterday noted epileptiform changes. He was placed on IV Keppra 1000 mg every 12 hours and staff/nursing personnel report no new neurological changes or seizure activity. On contact today, the patient was alert and oriented 3, no acute distress in the ICU on a ventilator. Objective - Vital Signs Vital signs: Vital Signs Temp 99.1 F 04/02/17 08:00 Pulse 124 H 04/02/17 09:00 Resp 26 H 04/02/17 09:00 BP 93/58 04/02/17 08:00 Pulse Ox 95 04/02/17 09:00 Intake & Output 04/01/17 04/02/17 04/02/17 18:59 06:59 18:59 Intake Total 7087.382 33224.080 1459.405 Output Total 7555 7670 1485 Balance -607.219 9111.080 -25.595 Weight 112.4 kg 112.4 kg Intake: IV 4823 2861 979 Calcium Gluconate 100 D5W with 3 amps Sodium 575 Bicarb Dextrose 5% in Water 1, 1000 000 ml @ 125 mls/hr IV . Q9H12M MANDA with Sodium Bicarb (1 Meq/ml) 150 ml Rx#:[id number] Dextrose 5% in Water 1, 1800 450 000 ml @ 150 mls/hr IV . Q7H40M MANDA with Sodium Bicarb (1 Meq/ml) 150 ml Rx#:[id number] Magnesium Sulfate 100 Magnesium Sulfate-D5w Pmx 200 1 gm In Dextrose/Water 1 100ml.bag @ 100 mls/hr IVPB Q1H MANDA Rx#: [id number] Normal Saline 1150 Piperacillin-Tazobactam 3 50 .375 gm In Dextrose/Water 1 50ml.bag @ 12.5 mls/hr IVPB Q8HR MANDA Rx#: [id number] Potassium Chloride 20 meq 50 In Water For Injection 1 100ml.bag @ 50 mls/hr IVPB ONCE ONE Rx#: [id number] Pressure Bag 33 36 9 Sodium Chloride 0.9% 1, 1675 000 ml @ 125 mls/hr IV . Q8H MANDA Rx#:[id number] Sodium Chloride 0.9% 1, 975 320 000 ml @ 150 mls/hr IV . Q6H40M MANDA Rx#:[id number] Sodium Phosphate 125 Vasopressin 15 Intake, IV Titration 2264.382 7277.080 480.405 Amount Insulin Regular 100 unit 30.923 94.445 36.967 In Sodium Chloride 0.9% 100 ml @ Per Protocol IV .Q0M MANDA Rx#:[id number] Magnesium Sulfate-D5w Pmx 100 1 gm In Dextrose/Water 1 100ml.bag @ 100 mls/hr IVPB Q1H MANDA Rx#: [id number] Norepinephrin 16 mg-0.9% 250.000 553.282 318.438 Ns Pmx 16 mg In 250 ml @ Titrate IV .Q0M MANDA Rx#: [id number] Norepinephrin 4 mg-0.9% 1937.812 Ns Pmx 4 mg In 250 ml @ Titrate IV .Q0M MANDA Rx#: [id number] Potassium Phosphate 10 125 125 mmol In Sodium Chloride 0 .9% 250 ml @ 125 mls/hr IV Q2H MANDA Rx#:[id number] Propofol 1,000 mg In 45.647 54.353 Empty Bag 1 bag @ Titrate IV .Q0M MANDA Rx#: [id number] Sodium Chloride 0.9% 1, 1000 000 ml @ 999 mls/hr IV . Q1H1M ONE Rx#:[id number] Sodium Chloride 0.9% 1, 5000 000 ml @ 999 mls/hr IV . Q1H1M PRN Rx#:[id number] Vancomycin 1,500 mg In 250 Sodium Chloride 0.9% 250 ml @ 125 mls/hr IVPB Q12HR MANDA Rx#:[id number] levETIRAcetam IV 1,000 mg 100 In Saline 1 100ml.bag @ 400 mls/hr IVPB Q12HR MANDA Rx#:[id number] Output: Gastric Drainage 750 900 Urine 6755 6770 1485 Emesis 50 Other: Voiding Method Indwelling Catheter Indwelling Catheter ABP, PAP, CO, CI - Last Documented Arterial Blood Pressure 90/51 - Exam Gen. appearance: Alert, in no apparent distress Head: Atraumatic normocephalic, normal inspection Eyes: Well appearance, PERRL, EOMI. absent: Scleral icterus, conjunctival injection, nystagmus, periorbital swelling. Ear nose and throat: Normal exam, mucous membranes moist Neck: Normal inspection. Absent tenderness, lymphadenopathy Respiratory: Intubated and on a ventilator Cardiovascular: Telemetry monitoring GIabdominal: no guarding, no rebound, no rigidity. Extremities: Does move upper extremities, grasps absent Neurological: Alert and oriented 3, cranial nerves II through XII intact, no unilateral lateralizing weakness and the only weakness is known deficits from previous spinal cord injury, no seizure activity noted on physical exam. He does communicate via blinking of his eyes. Psychological: Mood and affect appropriate setting - Labs CBC & Chem 7: 04/02/17 04:32 04/02/17 04:32 Labs: Abnormal Lab Results - Last 24 Hours (Table) 03/31/17 03/31/17 03/31/17 Range/Units 17:50 17:50 17:50 WBC (3.8-10.6) k/uL RBC 4.08 L (4.30-5.90) m/uL Hgb 12.1 L (13.0-17.5) gm/dL Hct 35.4 L (39.0-53.0) % Plt Count (150-450) k/uL Neutrophils # (Manual) (1.3-7.7) k/uL Lymphocytes # (Manual) (1.0-4.8) k/uL Monocytes # (Manual) (0-1.0) k/uL ABG pH (7.35-7.45) ABG pCO2 (35-45) mmHg ABG pO2 (83-108) mmHg ABG HCO3 (21-25) mmol/L ABG O2 Saturation (94-97) % ABG Lactic Acid (0.5-1.6) mmol/L Sodium (137-145) mmol/L Potassium 2.4 L* (3.5-5.1) mmol/L Chloride 115 H (98-107) mmol/L Carbon Dioxide 11 L (22-30) mmol/L BUN 51 H (9-20) mg/dL Creatinine 1.30 H (0.66-1.25) mg/dL Glucose 70 L (74-99) mg/dL POC Glucose (mg/dL) (75-99) mg/dL Plasma Lactic Acid Aaron 4.2 H* (0.7-2.0) mmol/L Calcium 5.0 L* (8.4-10.2) mg/dL Ionized Calcium Yuval (4.5-5.3) mg/dL Phosphorus 2.4 L (2.5-4.5) mg/dL Magnesium 1.0 L* (1.6-2.3) mg/dL Total Bilirubin 2.0 H (0.2-1.3) mg/dL AST 16 L (17-59) U/L Total Protein 3.7 L (6.3-8.2) g/dL Albumin 1.7 L (3.5-5.0) g/dL 03/31/17 03/31/17 04/01/17 Range/Units 17:50 23:10 08:16 WBC (3.8-10.6) k/uL RBC (4.30-5.90) m/uL Hgb (13.0-17.5) gm/dL Hct (39.0-53.0) % Plt Count (150-450) k/uL Neutrophils # (Manual) (1.3-7.7) k/uL Lymphocytes # (Manual) (1.0-4.8) k/uL Monocytes # (Manual) (0-1.0) k/uL ABG pH 7.23 L (7.35-7.45) ABG pCO2 31 L (35-45) mmHg ABG pO2 136 H (83-108) mmHg ABG HCO3 13 L (21-25) mmol/L ABG O2 Saturation 99.0 H (94-97) % ABG Lactic Acid 6.0 H* (0.5-1.6) mmol/L Sodium (137-145) mmol/L Potassium (3.5-5.1) mmol/L Chloride (98-107) mmol/L Carbon Dioxide (22-30) mmol/L BUN (9-20) mg/dL Creatinine (0.66-1.25) mg/dL Glucose (74-99) mg/dL POC Glucose (mg/dL) (75-99) mg/dL Plasma Lactic Acid Aaron (0.7-2.0) mmol/L Calcium (8.4-10.2) mg/dL Ionized Calcium Yuval 3.6 L (4.5-5.3) mg/dL Phosphorus (2.5-4.5) mg/dL Magnesium (1.6-2.3) mg/dL Total Bilirubin (0.2-1.3) mg/dL AST (17-59) U/L Total Protein (6.3-8.2) g/dL Albumin (3.5-5.0) g/dL 04/01/17 04/01/17 04/01/17 Range/Units 09:45 10:33 11:02 WBC (3.8-10.6) k/uL RBC (4.30-5.90) m/uL Hgb (13.0-17.5) gm/dL Hct (39.0-53.0) % Plt Count (150-450) k/uL Neutrophils # (Manual) (1.3-7.7) k/uL Lymphocytes # (Manual) (1.0-4.8) k/uL Monocytes # (Manual) (0-1.0) k/uL ABG pH (7.35-7.45) ABG pCO2 (35-45) mmHg ABG pO2 (83-108) mmHg ABG HCO3 (21-25) mmol/L ABG O2 Saturation (94-97) % ABG Lactic Acid 5.1 H* (0.5-1.6) mmol/L Sodium (137-145) mmol/L Potassium (3.5-5.1) mmol/L Chloride (98-107) mmol/L Carbon Dioxide (22-30) mmol/L BUN (9-20) mg/dL Creatinine (0.66-1.25) mg/dL Glucose (74-99) mg/dL POC Glucose (mg/dL) 222 H 244 H (75-99) mg/dL Plasma Lactic Acid Aaron (0.7-2.0) mmol/L Calcium (8.4-10.2) mg/dL Ionized Calcium Yuval (4.5-5.3) mg/dL Phosphorus (2.5-4.5) mg/dL Magnesium (1.6-2.3) mg/dL Total Bilirubin (0.2-1.3) mg/dL AST (17-59) U/L Total Protein (6.3-8.2) g/dL Albumin (3.5-5.0) g/dL 04/01/17 04/01/17 04/01/17 Range/Units 12:01 12:03 13:14 WBC (3.8-10.6) k/uL RBC (4.30-5.90) m/uL Hgb (13.0-17.5) gm/dL Hct (39.0-53.0) % Plt Count (150-450) k/uL Neutrophils # (Manual) (1.3-7.7) k/uL Lymphocytes # (Manual) (1.0-4.8) k/uL Monocytes # (Manual) (0-1.0) k/uL ABG pH (7.35-7.45) ABG pCO2 (35-45) mmHg ABG pO2 (83-108) mmHg ABG HCO3 (21-25) mmol/L ABG O2 Saturation (94-97) % ABG Lactic Acid (0.5-1.6) mmol/L Sodium (137-145) mmol/L Potassium 3.2 L (3.5-5.1) mmol/L Chloride (98-107) mmol/L Carbon Dioxide (22-30) mmol/L BUN (9-20) mg/dL Creatinine (0.66-1.25) mg/dL Glucose (74-99) mg/dL POC Glucose (mg/dL) 204 H 199 H (75-99) mg/dL Plasma Lactic Acid Aaron (0.7-2.0) mmol/L Calcium (8.4-10.2) mg/dL Ionized Calcium Yuval (4.5-5.3) mg/dL Phosphorus (2.5-4.5) mg/dL Magnesium (1.6-2.3) mg/dL Total Bilirubin (0.2-1.3) mg/dL AST (17-59) U/L Total Protein (6.3-8.2) g/dL Albumin (3.5-5.0) g/dL 04/01/17 04/01/17 04/01/17 Range/Units 13:15 14:37 15:16 WBC (3.8-10.6) k/uL RBC (4.30-5.90) m/uL Hgb (13.0-17.5) gm/dL Hct (39.0-53.0) % Plt Count (150-450) k/uL Neutrophils # (Manual) (1.3-7.7) k/uL Lymphocytes # (Manual) (1.0-4.8) k/uL Monocytes # (Manual) (0-1.0) k/uL ABG pH (7.35-7.45) ABG pCO2 (35-45) mmHg ABG pO2 (83-108) mmHg ABG HCO3 (21-25) mmol/L ABG O2 Saturation (94-97) % ABG Lactic Acid 4.9 H* (0.5-1.6) mmol/L Sodium (137-145) mmol/L Potassium (3.5-5.1) mmol/L Chloride (98-107) mmol/L Carbon Dioxide (22-30) mmol/L BUN (9-20) mg/dL Creatinine (0.66-1.25) mg/dL Glucose (74-99) mg/dL POC Glucose (mg/dL) 160 H 190 H (75-99) mg/dL Plasma Lactic Acid Aaron (0.7-2.0) mmol/L Calcium (8.4-10.2) mg/dL Ionized Calcium Yuval (4.5-5.3) mg/dL Phosphorus (2.5-4.5) mg/dL Magnesium (1.6-2.3) mg/dL Total Bilirubin (0.2-1.3) mg/dL AST (17-59) U/L Total Protein (6.3-8.2) g/dL Albumin (3.5-5.0) g/dL 04/01/17 04/01/17 04/01/17 Range/Units 16:13 16:13 16:16 WBC (3.8-10.6) k/uL RBC (4.30-5.90) m/uL Hgb (13.0-17.5) gm/dL Hct (39.0-53.0) % Plt Count (150-450) k/uL Neutrophils # (Manual) (1.3-7.7) k/uL Lymphocytes # (Manual) (1.0-4.8) k/uL Monocytes # (Manual) (0-1.0) k/uL ABG pH (7.35-7.45) ABG pCO2 (35-45) mmHg ABG pO2 (83-108) mmHg ABG HCO3 (21-25) mmol/L ABG O2 Saturation (94-97) % ABG Lactic Acid 4.6 H* (0.5-1.6) mmol/L Sodium (137-145) mmol/L Potassium (3.5-5.1) mmol/L Chloride (98-107) mmol/L Carbon Dioxide (22-30) mmol/L BUN (9-20) mg/dL Creatinine (0.66-1.25) mg/dL Glucose (74-99) mg/dL POC Glucose (mg/dL) 193 H (75-99) mg/dL Plasma Lactic Acid Aaron 4.6 H* (0.7-2.0) mmol/L Calcium (8.4-10.2) mg/dL Ionized Calcium Yuval (4.5-5.3) mg/dL Phosphorus (2.5-4.5) mg/dL Magnesium (1.6-2.3) mg/dL Total Bilirubin (0.2-1.3) mg/dL AST (17-59) U/L Total Protein (6.3-8.2) g/dL Albumin (3.5-5.0) g/dL 04/01/17 04/01/17 04/01/17 Range/Units 17:06 17:11 18:08 WBC (3.8-10.6) k/uL RBC (4.30-5.90) m/uL Hgb (13.0-17.5) gm/dL Hct (39.0-53.0) % Plt Count (150-450) k/uL Neutrophils # (Manual) (1.3-7.7) k/uL Lymphocytes # (Manual) (1.0-4.8) k/uL Monocytes # (Manual) (0-1.0) k/uL ABG pH (7.35-7.45) ABG pCO2 (35-45) mmHg ABG pO2 (83-108) mmHg ABG HCO3 (21-25) mmol/L ABG O2 Saturation (94-97) % ABG Lactic Acid (0.5-1.6) mmol/L Sodium (137-145) mmol/L Potassium 3.1 L (3.5-5.1) mmol/L Chloride (98-107) mmol/L Carbon Dioxide (22-30) mmol/L BUN (9-20) mg/dL Creatinine (0.66-1.25) mg/dL Glucose (74-99) mg/dL POC Glucose (mg/dL) 196 H 214 H (75-99) mg/dL Plasma Lactic Acid Aaron (0.7-2.0) mmol/L Calcium (8.4-10.2) mg/dL Ionized Calcium Yuval (4.5-5.3) mg/dL Phosphorus (2.5-4.5) mg/dL Magnesium (1.6-2.3) mg/dL Total Bilirubin (0.2-1.3) mg/dL AST (17-59) U/L Total Protein (6.3-8.2) g/dL Albumin (3.5-5.0) g/dL 04/01/17 04/01/17 04/01/17 Range/Units 18:58 20:19 20:20 WBC (3.8-10.6) k/uL RBC (4.30-5.90) m/uL Hgb (13.0-17.5) gm/dL Hct (39.0-53.0) % Plt Count (150-450) k/uL Neutrophils # (Manual) (1.3-7.7) k/uL Lymphocytes # (Manual) (1.0-4.8) k/uL Monocytes # (Manual) (0-1.0) k/uL ABG pH (7.35-7.45) ABG pCO2 (35-45) mmHg ABG pO2 (83-108) mmHg ABG HCO3 (21-25) mmol/L ABG O2 Saturation (94-97) % ABG Lactic Acid 4.7 H* (0.5-1.6) mmol/L Sodium (137-145) mmol/L Potassium (3.5-5.1) mmol/L Chloride (98-107) mmol/L Carbon Dioxide (22-30) mmol/L BUN (9-20) mg/dL Creatinine (0.66-1.25) mg/dL Glucose (74-99) mg/dL POC Glucose (mg/dL) 175 H 201 H (75-99) mg/dL Plasma Lactic Acid Aaron (0.7-2.0) mmol/L Calcium (8.4-10.2) mg/dL Ionized Calcium Yuval (4.5-5.3) mg/dL Phosphorus (2.5-4.5) mg/dL Magnesium (1.6-2.3) mg/dL Total Bilirubin (0.2-1.3) mg/dL AST (17-59) U/L Total Protein (6.3-8.2) g/dL Albumin (3.5-5.0) g/dL 04/01/17 04/01/17 04/01/17 Range/Units 21:13 21:55 22:10 WBC (3.8-10.6) k/uL RBC (4.30-5.90) m/uL Hgb (13.0-17.5) gm/dL Hct (39.0-53.0) % Plt Count (150-450) k/uL Neutrophils # (Manual) (1.3-7.7) k/uL Lymphocytes # (Manual) (1.0-4.8) k/uL Monocytes # (Manual) (0-1.0) k/uL ABG pH (7.35-7.45) ABG pCO2 (35-45) mmHg ABG pO2 (83-108) mmHg ABG HCO3 (21-25) mmol/L ABG O2 Saturation (94-97) % ABG Lactic Acid (0.5-1.6) mmol/L Sodium (137-145) mmol/L Potassium 2.8 L* (3.5-5.1) mmol/L Chloride (98-107) mmol/L Carbon Dioxide (22-30) mmol/L BUN (9-20) mg/dL Creatinine (0.66-1.25) mg/dL Glucose (74-99) mg/dL POC Glucose (mg/dL) 195 H 198 H (75-99) mg/dL Plasma Lactic Acid Aaron (0.7-2.0) mmol/L Calcium (8.4-10.2) mg/dL Ionized Calcium Yuval (4.5-5.3) mg/dL Phosphorus (2.5-4.5) mg/dL Magnesium (1.6-2.3) mg/dL Total Bilirubin (0.2-1.3) mg/dL AST (17-59) U/L Total Protein (6.3-8.2) g/dL Albumin (3.5-5.0) g/dL 04/01/17 04/01/17 04/02/17 Range/Units 23:55 23:56 01:00 WBC (3.8-10.6) k/uL RBC (4.30-5.90) m/uL Hgb (13.0-17.5) gm/dL Hct (39.0-53.0) % Plt Count (150-450) k/uL Neutrophils # (Manual) (1.3-7.7) k/uL Lymphocytes # (Manual) (1.0-4.8) k/uL Monocytes # (Manual) (0-1.0) k/uL ABG pH (7.35-7.45) ABG pCO2 (35-45) mmHg ABG pO2 (83-108) mmHg ABG HCO3 (21-25) mmol/L ABG O2 Saturation (94-97) % ABG Lactic Acid 4.1 H* (0.5-1.6) mmol/L Sodium (137-145) mmol/L Potassium (3.5-5.1) mmol/L Chloride (98-107) mmol/L Carbon Dioxide (22-30) mmol/L BUN (9-20) mg/dL Creatinine (0.66-1.25) mg/dL Glucose (74-99) mg/dL POC Glucose (mg/dL) 191 H 178 H (75-99) mg/dL Plasma Lactic Acid Aaron (0.7-2.0) mmol/L Calcium (8.4-10.2) mg/dL Ionized Calcium Yuval (4.5-5.3) mg/dL Phosphorus (2.5-4.5) mg/dL Magnesium (1.6-2.3) mg/dL Total Bilirubin (0.2-1.3) mg/dL AST (17-59) U/L Total Protein (6.3-8.2) g/dL Albumin (3.5-5.0) g/dL 04/02/17 04/02/17 04/02/17 Range/Units 02:18 03:31 04:22 WBC (3.8-10.6) k/uL RBC (4.30-5.90) m/uL Hgb (13.0-17.5) gm/dL Hct (39.0-53.0) % Plt Count (150-450) k/uL Neutrophils # (Manual) (1.3-7.7) k/uL Lymphocytes # (Manual) (1.0-4.8) k/uL Monocytes # (Manual) (0-1.0) k/uL ABG pH (7.35-7.45) ABG pCO2 (35-45) mmHg ABG pO2 (83-108) mmHg ABG HCO3 (21-25) mmol/L ABG O2 Saturation (94-97) % ABG Lactic Acid (0.5-1.6) mmol/L Sodium (137-145) mmol/L Potassium (3.5-5.1) mmol/L Chloride (98-107) mmol/L Carbon Dioxide (22-30) mmol/L BUN (9-20) mg/dL Creatinine (0.66-1.25) mg/dL Glucose (74-99) mg/dL POC Glucose (mg/dL) 190 H 195 H 188 H (75-99) mg/dL Plasma Lactic Acid Aaron (0.7-2.0) mmol/L Calcium (8.4-10.2) mg/dL Ionized Calcium Yuval (4.5-5.3) mg/dL Phosphorus (2.5-4.5) mg/dL Magnesium (1.6-2.3) mg/dL Total Bilirubin (0.2-1.3) mg/dL AST (17-59) U/L Total Protein (6.3-8.2) g/dL Albumin (3.5-5.0) g/dL 04/02/17 04/02/17 04/02/17 Range/Units 04:32 04:32 04:32 WBC 36.3 H* (3.8-10.6) k/uL RBC 4.01 L (4.30-5.90) m/uL Hgb 11.5 L (13.0-17.5) gm/dL Hct 33.9 L (39.0-53.0) % Plt Count 127 L (150-450) k/uL Neutrophils # (Manual) 34.40 H (1.3-7.7) k/uL Lymphocytes # (Manual) 0.73 L (1.0-4.8) k/uL Monocytes # (Manual) 1.09 H (0-1.0) k/uL ABG pH (7.35-7.45) ABG pCO2 (35-45) mmHg ABG pO2 (83-108) mmHg ABG HCO3 (21-25) mmol/L ABG O2 Saturation (94-97) % ABG Lactic Acid 4.9 H* (0.5-1.6) mmol/L Sodium 147 H (137-145) mmol/L Potassium 3.1 L (3.5-5.1) mmol/L Chloride 114 H (98-107) mmol/L Carbon Dioxide (22-30) mmol/L BUN (9-20) mg/dL Creatinine (0.66-1.25) mg/dL Glucose 206 H (74-99) mg/dL POC Glucose (mg/dL) (75-99) mg/dL Plasma Lactic Acid Aaron (0.7-2.0) mmol/L Calcium 5.2 L* (8.4-10.2) mg/dL Ionized Calcium Yuval (4.5-5.3) mg/dL Phosphorus 1.6 L (2.5-4.5) mg/dL Magnesium 1.1 L (1.6-2.3) mg/dL Total Bilirubin (0.2-1.3) mg/dL AST (17-59) U/L Total Protein (6.3-8.2) g/dL Albumin (3.5-5.0) g/dL 04/02/17 04/02/17 04/02/17 Range/Units 05:11 05:30 06:25 WBC (3.8-10.6) k/uL RBC (4.30-5.90) m/uL Hgb (13.0-17.5) gm/dL Hct (39.0-53.0) % Plt Count (150-450) k/uL Neutrophils # (Manual) (1.3-7.7) k/uL Lymphocytes # (Manual) (1.0-4.8) k/uL Monocytes # (Manual) (0-1.0) k/uL ABG pH (7.35-7.45) ABG pCO2 (35-45) mmHg ABG pO2 (83-108) mmHg ABG HCO3 (21-25) mmol/L ABG O2 Saturation (94-97) % ABG Lactic Acid (0.5-1.6) mmol/L Sodium (137-145) mmol/L Potassium (3.5-5.1) mmol/L Chloride (98-107) mmol/L Carbon Dioxide (22-30) mmol/L BUN (9-20) mg/dL Creatinine (0.66-1.25) mg/dL Glucose (74-99) mg/dL POC Glucose (mg/dL) 184 H 180 H (75-99) mg/dL Plasma Lactic Acid Aaron (0.7-2.0) mmol/L Calcium (8.4-10.2) mg/dL Ionized Calcium Yuval 3.5 L* (4.5-5.3) mg/dL Phosphorus (2.5-4.5) mg/dL Magnesium (1.6-2.3) mg/dL Total Bilirubin (0.2-1.3) mg/dL AST (17-59) U/L Total Protein (6.3-8.2) g/dL Albumin (3.5-5.0) g/dL 04/02/17 04/02/17 04/02/17 Range/Units 07:06 07:09 08:11 WBC (3.8-10.6) k/uL RBC (4.30-5.90) m/uL Hgb (13.0-17.5) gm/dL Hct (39.0-53.0) % Plt Count (150-450) k/uL Neutrophils # (Manual) (1.3-7.7) k/uL Lymphocytes # (Manual) (1.0-4.8) k/uL Monocytes # (Manual) (0-1.0) k/uL ABG pH (7.35-7.45) ABG pCO2 33 L (35-45) mmHg ABG pO2 (83-108) mmHg ABG HCO3 20 L (21-25) mmol/L ABG O2 Saturation 98.0 H (94-97) % ABG Lactic Acid (0.5-1.6) mmol/L Sodium (137-145) mmol/L Potassium (3.5-5.1) mmol/L Chloride (98-107) mmol/L Carbon Dioxide (22-30) mmol/L BUN (9-20) mg/dL Creatinine (0.66-1.25) mg/dL Glucose (74-99) mg/dL POC Glucose (mg/dL) 182 H 191 H (75-99) mg/dL Plasma Lactic Acid Aaron (0.7-2.0) mmol/L Calcium (8.4-10.2) mg/dL Ionized Calcium Yuval (4.5-5.3) mg/dL Phosphorus (2.5-4.5) mg/dL Magnesium (1.6-2.3) mg/dL Total Bilirubin (0.2-1.3) mg/dL AST (17-59) U/L Total Protein (6.3-8.2) g/dL Albumin (3.5-5.0) g/dL 04/02/17 04/02/17 Range/Units 08:15 09:09 WBC (3.8-10.6) k/uL RBC (4.30-5.90) m/uL Hgb (13.0-17.5) gm/dL Hct (39.0-53.0) % Plt Count (150-450) k/uL Neutrophils # (Manual) (1.3-7.7) k/uL Lymphocytes # (Manual) (1.0-4.8) k/uL Monocytes # (Manual) (0-1.0) k/uL ABG pH (7.35-7.45) ABG pCO2 (35-45) mmHg ABG pO2 (83-108) mmHg ABG HCO3 (21-25) mmol/L ABG O2 Saturation (94-97) % ABG Lactic Acid 5.0 H* (0.5-1.6) mmol/L Sodium (137-145) mmol/L Potassium (3.5-5.1) mmol/L Chloride (98-107) mmol/L Carbon Dioxide (22-30) mmol/L BUN (9-20) mg/dL Creatinine (0.66-1.25) mg/dL Glucose (74-99) mg/dL POC Glucose (mg/dL) 190 H (75-99) mg/dL Plasma Lactic Acid Aaron (0.7-2.0) mmol/L Calcium (8.4-10.2) mg/dL Ionized Calcium Yuval (4.5-5.3) mg/dL Phosphorus (2.5-4.5) mg/dL Magnesium (1.6-2.3) mg/dL Total Bilirubin (0.2-1.3) mg/dL AST (17-59) U/L Total Protein (6.3-8.2) g/dL Albumin (3.5-5.0) g/dL Microbiology - Last 24 Hours (Table) 04/01/17 16:30 Gram Stain - Preliminary Sputum Sputum Culture - Preliminary 03/29/17 19:12 Urine Culture - Final Urine,Catheterized Enterobacter aerogenes Pseudomonas aeruginosa 03/31/17 20:00 Blood Culture Gram Stain - Preliminary Blood Blood Culture - Preliminary Gram Neg Bacilli 03/31/17 19:45 Blood Culture Gram Stain - Preliminary Blood Blood Culture - Preliminary Gram Neg Bacilli 03/31/17 19:45 Blood Culture - Final Blood 03/31/17 20:00 Blood Culture - Final Blood Assessment and Plan (1) Toxic metabolic encephalopathy Current Visit: Yes Status: Acute Code(s): G92 - TOXIC ENCEPHALOPATHY SNOMED Code(s): 252035428 (2) Acute respiratory failure requiring reintubation Current Visit: Yes Status: Acute Code(s): J96.00 - ACUTE RESPIRATORY FAILURE , UNSP W HYPOXIA OR HYPERCAPNIA SNOMED Code(s): 616320808 (3) Paraplegia following spinal cord injury Current Visit: Yes Status: Acute Code(s): G82.20 - PARAPLEGIA, UNSPECIFIED SNOMED Code(s): 22840577 (4) Seizure Current Visit: Yes Status: Acute Code(s): R56.9 - UNSPECIFIED CONVULSIONS SNOMED Code(s): 88543493 Plan: 1. Toxic metabolic encephalopthy 2. Seizure disorder, epilepsy 3. Spinal cord injury 4. Acute respiratory failure requiring ventilatory support Plan: Toxic metabolic encephalopathy: Patient does have encephalopathy as a result of the significant infectious process noted in his WBC results. Continue to treat underlying infectious process. Neuro checks as scheduled for baseline status with known spinal cord injury. Seizure disorder, epilepsy: Patient does not have a past history of seizure. Patient had new onset seizure and staff were unclear if the activity witnessed was a seizure or not. Based on the EEG results, it does appear that the patient has epilepsy that is a new diagnosis. Patient will be placed on keppra 1,000 mg, IV q12 hrs scheduled for seizure management. Seizure precautions are continued. Patient has had no new seizure in the last 24 hours. Spinal Cord Injury: She is now moving both upper extremities and per nursing staff upper extremity range of motion and physical ability is consistent with baseline. Patient did not grasped with either hand. Neurology will continue to follow and provide updates as needed or warranted. I discussed the patient's pertinent medical information with Dr. Thomas. He agrees with the plan of care as implemented.
[2017-04-02] MEDS ORDERED: BISACODYL 10 MG SUPP RECTAL STA (09:30)
--- NOTE | 2017-04-02 09:46 | P.PN ---
Progress Note - Text Progress Note Date: 04/02/17 The patient has remained hemodynamically stable however he continues to require the use of levophed. He remains intubated. He is alert and responds appropriately. He is no longer acidotic and his pulmonary studies no evidence of hypoxia. He continues to have a large urine output which is grossly clear. Blood and urine cultures on 11/29 are growing gram-negative rods. The patient's urine culture from 11/27 grew greater than 100,000 colonies of enterobacter aerogenes and 10-20,000 colonies of pseudomonas aeruginosa. Both organisms are sensitive to meropenem and Zosyn. His white blood count remains elevated at 36, 000. Hemoglobin is stable at 11.5. Renal function has improved with a BUN/ creatinine of 20/1.0. Impression: Severe sepsis with hypotension secondary to gram-negative bacteremia from urinary tract infection. Hemorrhagic cystitis secondary to urinary tract infection has improved and the patient's urine is grossly clear. Recommendation: The patient will be continued on his current antibiotics pending results of his most recent blood and urine cultures.
[2017-04-02] MEDS: CHLORHEXIDINE GLUCONATE 15 ML CUP MUCOUS MEM SCH ×2 (09:59→20:01)
[2017-04-02] MEDS: levETIRAcetam IV 1,000 MG in SALINE 1 100ML.BAG IVPB SCH ×2 (09:59→20:01)
[2017-04-02] MEDS: PANTOPRAZOLE 40 MG/10 ML VIAL IV SCH (10:21)
[2017-04-02] MEDS: PIPERACILLIN-TAZOBACTAM 3.375 GM in DEXTROSE/WATER 1 50ML.BAG IVPB SCH ×3 (10:22→23:13)
[2017-04-02 10:45] LABS: Glucose,Whole Blood 286 mg/dL (75-99)
[2017-04-02 12:24] LABS: Glucose,Whole Blood 226 mg/dL (75-99)
[2017-04-02 13:14] LABS: Glucose,Whole Blood 204 mg/dL (75-99)
[2017-04-02] MEDS ORDERED: DEXTROSE 5% IN WATER 1,000 ML with SODIUM BICARB (1 MEQ/ML) 150 ML IV SCH (13:15)
--- NOTE | 2017-04-02 13:49 | P.PN ---
Subjective Progress Note Date: 04/02/17 Principal diagnosis: Acute septic shock secondary to acute urinary tract infection, cystitis. This is a 51-year-old white male, paraplegic, this is related to previous hockey accident and cervical spine injury at age 18. 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 Patient had external sphincterotomy in 1990 and 1994, and has been managed with an exdwelling catheter. In the last 2 weeks, the patient has been noticing dark color urine with some odor. On 03/28 patient was noticing some chills, and on the morning of 03/29 he developed gross hematuria but he was able to void. Later on the patient was passing clots, and he was unable to void. He developed significant suprapubic discomfort, and presented to the ER for evaluation. Upon evaluation the patient was noted to have slight leukocytosis, and renal failure with a BUN of [address] of the abdomen and pelvis showed bilateral nonobstructive renal calculi, and bilateral atrophy of the renal parenchyma. His bladder was noted to be distended, and question the possibility of bladder mass. Patient was started on Levaquin for treatment of urinary tract infection, and he was seen by urology on consultation were in the patient had cystoscopy, and he was found to have hemorrhagic cystitis. The procedure was done on 03/31/2017. Yesterday, in p.m., patient developed an episode of unresponsiveness, patient was hypotensive, nursing staff felt he may have had a seizure, hence he was treated with Keppra, patient was unable to protect his airways, and I was notified about the patient at that time. Patient was given fluid boluses for hypotension, started on levo fed, and later on vasopressin was started. Patient was sent for a CT of the brain which came back negative for CVA. And he was later transferred back to the ICU were and we determined that the patient has a clear cut picture of septic shock from his urinary tract infection which turned out to be secondary to Enterobacter species. Patient was already on Levaquin, this was discontinued and he was placed on Zosyn and Merrem. Overnight, the patient remained relatively hypotensive in spite of significant high doses of norepinephrine, and vasopressin was later started. Presently the patient is on 75 mics of norepinephrine, and he is on 0.05 units of vasopressin. Blood pressure is marginal, many fluid boluses were given, and I believe he received over 10 L of fluids. His urine output has been excellent and he seems to have a polyuria picture. Renal functioning seems to be significantly improved in the last 24 hours. Lactic acid remains high this morning at 5.1. All his electrolytes were abnormal including low potassium which was corrected, calcium was also corrected, and his creatinine improved from 2.36 down to 1.50. Urine cultures were noted, but no blood cultures have been noted so far. Today I saw the patient in the ICU, remains on mechanical ventilation, his ventilator settings are tidal volume of 500, assist control rate of 20, FiO2 is down to 50%, and PEEP is at 5. ABG showed a pO2 of 136 pCO2 of 31 pH of 7.23, hence the patient was given more bicarb, and kept on the bicarb drip with 3 A of bicarb in 1 L of D5W running at 1 25 mL per hour. In spite of all of this, the patient is on small dose of propofol, he is arousable, and follows simple instructions. Seems to be very appropriate. Neurology-yanez, the patient was given Keppra, and EEG was ordered, it is not certain whether the patient truly had a seizure or not. Patient was reevaluated today on 03/29/2017, remains on mechanical ventilation, same vent setting, however his FiO2 is decreased down to 45%, tidal volume remains at 500, assist control rate is at 20, and PEEP is at 5. ABG this morning showed a pO2 of 103 pCO2 of 33 pH of 7.40. Hence, down significantly on the sodium bicarb drip, The patient on IV fluids, patient still requiring significant fluid boluses to maintain an adequate mean arterial blood pressure. His urine output has been excellent, he is putting out almost 300 mL per hour. Patient continues to have leukocytosis with WBC count of 36.3 hemoglobin is 11.5. Renal profile is basically almost back to normal. And his acute kidney injury has resolved. Sodium is elevated, at 147, hence I changed his IV fluid 0.45 instead of 0.9. His electrolytes were noted to be abnormal, and these were all being corrected as per protocol. Chest x-ray continues to show retrocardiac consolidation, and small left pleural effusion. I was able to review an old x-ray from 2011, apparently had some chronic scarring in the left lower lobe, and some atelectasis in the left retrocardiac area, but not as pronounced as noted on this present x-ray from this admission. Patient remains on norepinephrine at 75 g, he is also on vasopressin at 0.05 units. Objective - Vital Signs Vital signs: Vital Signs Temp 99.4 F 04/02/17 12:00 Pulse 137 H 04/02/17 13:00 Resp 27 H 04/02/17 13:00 BP 93/58 04/02/17 08:00 Pulse Ox 96 04/02/17 13:00 Intake & Output 04/01/17 04/02/17 04/02/17 18:59 06:59 18:59 Intake Total 7087.382 27498.080 3828.979 Output Total 7528 7670 3565 Balance -488.323 7767.080 263.979 Weight 112.4 kg 112.4 kg Intake: IV 4823 2861 3041 Calcium Gluconate 100 D5W with 3 amps Sodium 575 Bicarb Dextrose 5% in Water 1, 1000 000 ml @ 125 mls/hr IV . Q9H12M [facility] with Sodium Bicarb (1 Meq/ml) 150 ml Rx#:[id number] Dextrose 5% in Water 1, 1800 650 000 ml @ 150 mls/hr IV . Q7H40M [facility] with Sodium Bicarb (1 Meq/ml) 150 ml Rx#:[id number] Dextrose 5%-0.45% NaCl 1, 1450 000 ml @ 150 mls/hr IV . Q6H40M [facility] Rx#:[id number] Magnesium Sulfate 100 Magnesium Sulfate-D5w Pmx 200 1 gm In Dextrose/Water 1 100ml.bag @ 100 mls/hr IVPB Q1H [facility] Rx#: [id number] Normal Saline 1150 Piperacillin-Tazobactam 3 50 .375 gm In Dextrose/Water 1 50ml.bag @ 12.5 mls/hr IVPB Q8HR [facility] Rx#: [id number] Piperacillin-Tazobactam 3 50 .375 gm In Dextrose/Water 1 50ml.bag @ 12.5 mls/hr IVPB Q8HR [facility] Rx#: [id number] Potassium Chloride 20 meq 50 In Water For Injection 1 100ml.bag @ 50 mls/hr IVPB ONCE ONE Rx#: [id number] Potassium Phosphate 10 250 mmol In Sodium Chloride 0 .9% 250 ml @ 125 mls/hr IV Q2H [facility] Rx#:[id number] Pressure Bag 33 36 21 Sodium Chloride 0.9% 1, 1675 000 ml @ 125 mls/hr IV . Q8H [facility] Rx#:[id number] Sodium Chloride 0.9% 1, 975 320 000 ml @ 150 mls/hr IV . Q6H40M [facility] Rx#:[id number] Sodium Phosphate 125 Vasopressin 15 levETIRAcetam IV 1,000 mg 100 In Saline 1 100ml.bag @ 400 mls/hr IVPB Q12HR [facility] Rx#:[id number] Intake, IV Titration 2264.382 7277.080 787.979 Amount Insulin Regular 100 unit 30.923 94.445 55.816 In Sodium Chloride 0.9% 100 ml @ Per Protocol IV .Q0M [facility] Rx#:[id number] Insulin Regular 100 unit 54.225 In Sodium Chloride 0.9% 100 ml @ Per Protocol IV .Q0M [facility] Rx#:[id number] Magnesium Sulfate-D5w Pmx 100 1 gm In Dextrose/Water 1 100ml.bag @ 100 mls/hr IVPB Q1H [facility] Rx#: [id number] Norepinephrin 16 mg-0.9% 250.000 553.282 552.938 Ns Pmx 16 mg In 250 ml @ Titrate IV .Q0M [facility] Rx#: [id number] Norepinephrin 4 mg-0.9% 1937.812 Ns Pmx 4 mg In 250 ml @ Titrate IV .Q0M [facility] Rx#: [id number] Potassium Phosphate 10 125 125 mmol In Sodium Chloride 0 .9% 250 ml @ 125 mls/hr IV Q2H [facility] Rx#:[id number] Propofol 1,000 mg In 45.647 54.353 Empty Bag 1 bag @ Titrate IV .Q0M [facility] Rx#: [id number] Sodium Chloride 0.9% 1, 1000 000 ml @ 999 mls/hr IV . Q1H1M [facility] Rx#:[id number] Sodium Chloride 0.9% 1, 5000 000 ml @ 999 mls/hr IV . Q1H1M PRN Rx#:[id number] Vancomycin 1,500 mg In 250 Sodium Chloride 0.9% 250 ml @ 125 mls/hr IVPB Q12HR [facility] Rx#:[id number] levETIRAcetam IV 1,000 mg 100 In Saline 1 100ml.bag @ 400 mls/hr IVPB Q12HR [facility] Rx#:[id number] Output: Gastric Drainage 750 900 Urine 6755 6770 3565 Emesis 50 Other: Voiding Method Indwelling Catheter Indwelling Catheter Indwelling Catheter ABP, PAP, CO, CI - Last Documented Arterial Blood Pressure 84/48 - Exam Physical Exam: Revealed a 51-year-old white male, morbidly obese, on mechanical ventilation, sedated, in no distress at present. HEENT:[ Short obese neck. Neck is supple.] [No neck masses.] [No thyromegaly.] [No JVD.] PERRLA, EOMI, moist mucous membranes. Endotracheal tube is intact. Chest: [Diminished breath sounds at the bases, especially at the left base. no crackles nor rhonchi no wheezes.] Cardiac Exam: [Normal S1 and S2, no S3 gallop, no murmur.] Abdomen: [Obese, Soft, nontender, no megaly, no rebound, no guarding, normal bowel sounds.] Extremities: [No clubbing, no edema, no cyanosis. Significant muscle atrophy and wasting of muscles noted in lower extremities, patient is paraplegic.] Flexion contractures noted bilaterally. Neurological Exam: [No focal neurologic deficit. Except for paraplegia from the waist down. Lymphatics: No lymphadenopathy. Psychiatric: Normal mood, affect, and cannot fully assess mental status exam.] - Labs CBC & Chem 7: 04/02/17 04:32 04/02/17 04:32 Labs: Abnormal Lab Results - Last 24 Hours (Table) 03/31/17 03/31/17 03/31/17 Range/Units 17:50 17:50 17:50 WBC (3.8-10.6) k/uL RBC 4.08 L (4.30-5.90) m/uL Hgb 12.1 L (13.0-17.5) gm/dL Hct 35.4 L (39.0-53.0) % Plt Count (150-450) k/uL Neutrophils # (Manual) (1.3-7.7) k/uL Lymphocytes # (Manual) (1.0-4.8) k/uL Monocytes # (Manual) (0-1.0) k/uL ABG pCO2 (35-45) mmHg ABG HCO3 (21-25) mmol/L ABG O2 Saturation (94-97) % ABG Lactic Acid (0.5-1.6) mmol/L Sodium (137-145) mmol/L Potassium 2.4 L* (3.5-5.1) mmol/L Chloride 115 H (98-107) mmol/L Carbon Dioxide 11 L (22-30) mmol/L BUN 51 H (9-20) mg/dL Creatinine 1.30 H (0.66-1.25) mg/dL Glucose 70 L (74-99) mg/dL POC Glucose (mg/dL) (75-99) mg/dL Plasma Lactic Acid Aaron 4.2 H* (0.7-2.0) mmol/L Calcium 5.0 L* (8.4-10.2) mg/dL Ionized Calcium Yuval (4.5-5.3) mg/dL Phosphorus 2.4 L (2.5-4.5) mg/dL Magnesium 1.0 L* (1.6-2.3) mg/dL Total Bilirubin 2.0 H (0.2-1.3) mg/dL AST 16 L (17-59) U/L Total Protein 3.7 L (6.3-8.2) g/dL Albumin 1.7 L (3.5-5.0) g/dL 03/31/17 04/01/17 04/01/17 Range/Units 23:10 13:15 14:37 WBC (3.8-10.6) k/uL RBC (4.30-5.90) m/uL Hgb (13.0-17.5) gm/dL Hct (39.0-53.0) % Plt Count (150-450) k/uL Neutrophils # (Manual) (1.3-7.7) k/uL Lymphocytes # (Manual) (1.0-4.8) k/uL Monocytes # (Manual) (0-1.0) k/uL ABG pCO2 (35-45) mmHg ABG HCO3 (21-25) mmol/L ABG O2 Saturation (94-97) % ABG Lactic Acid 6.0 H* 4.9 H* (0.5-1.6) mmol/L Sodium (137-145) mmol/L Potassium (3.5-5.1) mmol/L Chloride (98-107) mmol/L Carbon Dioxide (22-30) mmol/L BUN (9-20) mg/dL Creatinine (0.66-1.25) mg/dL Glucose (74-99) mg/dL POC Glucose (mg/dL) 160 H (75-99) mg/dL Plasma Lactic Acid Aaron (0.7-2.0) mmol/L Calcium (8.4-10.2) mg/dL Ionized Calcium Yuval (4.5-5.3) mg/dL Phosphorus (2.5-4.5) mg/dL Magnesium (1.6-2.3) mg/dL Total Bilirubin (0.2-1.3) mg/dL AST (17-59) U/L Total Protein (6.3-8.2) g/dL Albumin (3.5-5.0) g/dL 04/01/17 04/01/17 04/01/17 Range/Units 15:16 16:13 16:13 WBC (3.8-10.6) k/uL RBC (4.30-5.90) m/uL Hgb (13.0-17.5) gm/dL Hct (39.0-53.0) % Plt Count (150-450) k/uL Neutrophils # (Manual) (1.3-7.7) k/uL Lymphocytes # (Manual) (1.0-4.8) k/uL Monocytes # (Manual) (0-1.0) k/uL ABG pCO2 (35-45) mmHg ABG HCO3 (21-25) mmol/L ABG O2 Saturation (94-97) % ABG Lactic Acid 4.6 H* (0.5-1.6) mmol/L Sodium (137-145) mmol/L Potassium (3.5-5.1) mmol/L Chloride (98-107) mmol/L Carbon Dioxide (22-30) mmol/L BUN (9-20) mg/dL Creatinine (0.66-1.25) mg/dL Glucose (74-99) mg/dL POC Glucose (mg/dL) 190 H (75-99) mg/dL Plasma Lactic Acid Aaron 4.6 H* (0.7-2.0) mmol/L Calcium (8.4-10.2) mg/dL Ionized Calcium Yuval (4.5-5.3) mg/dL Phosphorus (2.5-4.5) mg/dL Magnesium (1.6-2.3) mg/dL Total Bilirubin (0.2-1.3) mg/dL AST (17-59) U/L Total Protein (6.3-8.2) g/dL Albumin (3.5-5.0) g/dL 04/01/17 04/01/17 04/01/17 Range/Units 16:16 17:06 17:11 WBC (3.8-10.6) k/uL RBC (4.30-5.90) m/uL Hgb (13.0-17.5) gm/dL Hct (39.0-53.0) % Plt Count (150-450) k/uL Neutrophils # (Manual) (1.3-7.7) k/uL Lymphocytes # (Manual) (1.0-4.8) k/uL Monocytes # (Manual) (0-1.0) k/uL ABG pCO2 (35-45) mmHg ABG HCO3 (21-25) mmol/L ABG O2 Saturation (94-97) % ABG Lactic Acid (0.5-1.6) mmol/L Sodium (137-145) mmol/L Potassium 3.1 L (3.5-5.1) mmol/L Chloride (98-107) mmol/L Carbon Dioxide (22-30) mmol/L BUN (9-20) mg/dL Creatinine (0.66-1.25) mg/dL Glucose (74-99) mg/dL POC Glucose (mg/dL) 193 H 196 H (75-99) mg/dL Plasma Lactic Acid Aaron (0.7-2.0) mmol/L Calcium (8.4-10.2) mg/dL Ionized Calcium Yuval (4.5-5.3) mg/dL Phosphorus (2.5-4.5) mg/dL Magnesium (1.6-2.3) mg/dL Total Bilirubin (0.2-1.3) mg/dL AST (17-59) U/L Total Protein (6.3-8.2) g/dL Albumin (3.5-5.0) g/dL 04/01/17 04/01/17 04/01/17 Range/Units 18:08 18:58 20:19 WBC (3.8-10.6) k/uL RBC (4.30-5.90) m/uL Hgb (13.0-17.5) gm/dL Hct (39.0-53.0) % Plt Count (150-450) k/uL Neutrophils # (Manual) (1.3-7.7) k/uL Lymphocytes # (Manual) (1.0-4.8) k/uL Monocytes # (Manual) (0-1.0) k/uL ABG pCO2 (35-45) mmHg ABG HCO3 (21-25) mmol/L ABG O2 Saturation (94-97) % ABG Lactic Acid (0.5-1.6) mmol/L Sodium (137-145) mmol/L Potassium (3.5-5.1) mmol/L Chloride (98-107) mmol/L Carbon Dioxide (22-30) mmol/L BUN (9-20) mg/dL Creatinine (0.66-1.25) mg/dL Glucose (74-99) mg/dL POC Glucose (mg/dL) 214 H 175 H 201 H (75-99) mg/dL Plasma Lactic Acid Aaron (0.7-2.0) mmol/L Calcium (8.4-10.2) mg/dL Ionized Calcium Yuval (4.5-5.3) mg/dL Phosphorus (2.5-4.5) mg/dL Magnesium (1.6-2.3) mg/dL Total Bilirubin (0.2-1.3) mg/dL AST (17-59) U/L Total Protein (6.3-8.2) g/dL Albumin (3.5-5.0) g/dL 04/01/17 04/01/17 04/01/17 Range/Units 20:20 21:13 21:55 WBC (3.8-10.6) k/uL RBC (4.30-5.90) m/uL Hgb (13.0-17.5) gm/dL Hct (39.0-53.0) % Plt Count (150-450) k/uL Neutrophils # (Manual) (1.3-7.7) k/uL Lymphocytes # (Manual) (1.0-4.8) k/uL Monocytes # (Manual) (0-1.0) k/uL ABG pCO2 (35-45) mmHg ABG HCO3 (21-25) mmol/L ABG O2 Saturation (94-97) % ABG Lactic Acid 4.7 H* (0.5-1.6) mmol/L Sodium (137-145) mmol/L Potassium 2.8 L* (3.5-5.1) mmol/L Chloride (98-107) mmol/L Carbon Dioxide (22-30) mmol/L BUN (9-20) mg/dL Creatinine (0.66-1.25) mg/dL Glucose (74-99) mg/dL POC Glucose (mg/dL) 195 H (75-99) mg/dL Plasma Lactic Acid Aaron (0.7-2.0) mmol/L Calcium (8.4-10.2) mg/dL Ionized Calcium Yuval (4.5-5.3) mg/dL Phosphorus (2.5-4.5) mg/dL Magnesium (1.6-2.3) mg/dL Total Bilirubin (0.2-1.3) mg/dL AST (17-59) U/L Total Protein (6.3-8.2) g/dL Albumin (3.5-5.0) g/dL 04/01/17 04/01/17 04/01/17 Range/Units 22:10 23:55 23:56 WBC (3.8-10.6) k/uL RBC (4.30-5.90) m/uL Hgb (13.0-17.5) gm/dL Hct (39.0-53.0) % Plt Count (150-450) k/uL Neutrophils # (Manual) (1.3-7.7) k/uL Lymphocytes # (Manual) (1.0-4.8) k/uL Monocytes # (Manual) (0-1.0) k/uL ABG pCO2 (35-45) mmHg ABG HCO3 (21-25) mmol/L ABG O2 Saturation (94-97) % ABG Lactic Acid 4.1 H* (0.5-1.6) mmol/L Sodium (137-145) mmol/L Potassium (3.5-5.1) mmol/L Chloride (98-107) mmol/L Carbon Dioxide (22-30) mmol/L BUN (9-20) mg/dL Creatinine (0.66-1.25) mg/dL Glucose (74-99) mg/dL POC Glucose (mg/dL) 198 H 191 H (75-99) mg/dL Plasma Lactic Acid Aaron (0.7-2.0) mmol/L Calcium (8.4-10.2) mg/dL Ionized Calcium Yuval (4.5-5.3) mg/dL Phosphorus (2.5-4.5) mg/dL Magnesium (1.6-2.3) mg/dL Total Bilirubin (0.2-1.3) mg/dL AST (17-59) U/L Total Protein (6.3-8.2) g/dL Albumin (3.5-5.0) g/dL 04/02/17 04/02/17 04/02/17 Range/Units 01:00 02:18 03:31 WBC (3.8-10.6) k/uL RBC (4.30-5.90) m/uL Hgb (13.0-17.5) gm/dL Hct (39.0-53.0) % Plt Count (150-450) k/uL Neutrophils # (Manual) (1.3-7.7) k/uL Lymphocytes # (Manual) (1.0-4.8) k/uL Monocytes # (Manual) (0-1.0) k/uL ABG pCO2 (35-45) mmHg ABG HCO3 (21-25) mmol/L ABG O2 Saturation (94-97) % ABG Lactic Acid (0.5-1.6) mmol/L Sodium (137-145) mmol/L Potassium (3.5-5.1) mmol/L Chloride (98-107) mmol/L Carbon Dioxide (22-30) mmol/L BUN (9-20) mg/dL Creatinine (0.66-1.25) mg/dL Glucose (74-99) mg/dL POC Glucose (mg/dL) 178 H 190 H 195 H (75-99) mg/dL Plasma Lactic Acid Aaron (0.7-2.0) mmol/L Calcium (8.4-10.2) mg/dL Ionized Calcium Yuval (4.5-5.3) mg/dL Phosphorus (2.5-4.5) mg/dL Magnesium (1.6-2.3) mg/dL Total Bilirubin (0.2-1.3) mg/dL AST (17-59) U/L Total Protein (6.3-8.2) g/dL Albumin (3.5-5.0) g/dL 04/02/17 04/02/17 04/02/17 Range/Units 04:22 04:32 04:32 WBC 36.3 H* (3.8-10.6) k/uL RBC 4.01 L (4.30-5.90) m/uL Hgb 11.5 L (13.0-17.5) gm/dL Hct 33.9 L (39.0-53.0) % Plt Count 127 L (150-450) k/uL Neutrophils # (Manual) 34.40 H (1.3-7.7) k/uL Lymphocytes # (Manual) 0.73 L (1.0-4.8) k/uL Monocytes # (Manual) 1.09 H (0-1.0) k/uL ABG pCO2 (35-45) mmHg ABG HCO3 (21-25) mmol/L ABG O2 Saturation (94-97) % ABG Lactic Acid (0.5-1.6) mmol/L Sodium 147 H (137-145) mmol/L Potassium 3.1 L (3.5-5.1) mmol/L Chloride 114 H (98-107) mmol/L Carbon Dioxide (22-30) mmol/L BUN (9-20) mg/dL Creatinine (0.66-1.25) mg/dL Glucose 206 H (74-99) mg/dL POC Glucose (mg/dL) 188 H (75-99) mg/dL Plasma Lactic Acid Aaron (0.7-2.0) mmol/L Calcium 5.2 L* (8.4-10.2) mg/dL Ionized Calcium Yvual (4.5-5.3) mg/dL Phosphorus 1.6 L (2.5-4.5) mg/dL Magnesium 1.1 L (1.6-2.3) mg/dL Total Bilirubin (0.2-1.3) mg/dL AST (17-59) U/L Total Protein (6.3-8.2) g/dL Albumin (3.5-5.0) g/dL 04/02/17 04/02/17 04/02/17 Range/Units 04:32 05:11 05:30 WBC (3.8-10.6) k/uL RBC (4.30-5.90) m/uL Hgb (13.0-17.5) gm/dL Hct (39.0-53.0) % Plt Count (150-450) k/uL Neutrophils # (Manual) (1.3-7.7) k/uL Lymphocytes # (Manual) (1.0-4.8) k/uL Monocytes # (Manual) (0-1.0) k/uL ABG pCO2 (35-45) mmHg ABG HCO3 (21-25) mmol/L ABG O2 Saturation (94-97) % ABG Lactic Acid 4.9 H* (0.5-1.6) mmol/L Sodium (137-145) mmol/L Potassium (3.5-5.1) mmol/L Chloride (98-107) mmol/L Carbon Dioxide (22-30) mmol/L BUN (9-20) mg/dL Creatinine (0.66-1.25) mg/dL Glucose (74-99) mg/dL POC Glucose (mg/dL) 184 H (75-99) mg/dL Plasma Lactic Acid Aaron (0.7-2.0) mmol/L Calcium (8.4-10.2) mg/dL Ionized Calcium Yuval 3.5 L* (4.5-5.3) mg/dL Phosphorus (2.5-4.5) mg/dL Magnesium (1.6-2.3) mg/dL Total Bilirubin (0.2-1.3) mg/dL AST (17-59) U/L Total Protein (6.3-8.2) g/dL Albumin (3.5-5.0) g/dL 04/02/17 04/02/17 04/02/17 Range/Units 06:25 07:06 07:09 WBC (3.8-10.6) k/uL RBC (4.30-5.90) m/uL Hgb (13.0-17.5) gm/dL Hct (39.0-53.0) % Plt Count (150-450) k/uL Neutrophils # (Manual) (1.3-7.7) k/uL Lymphocytes # (Manual) (1.0-4.8) k/uL Monocytes # (Manual) (0-1.0) k/uL ABG pCO2 33 L (35-45) mmHg ABG HCO3 20 L (21-25) mmol/L ABG O2 Saturation 98.0 H (94-97) % ABG Lactic Acid (0.5-1.6) mmol/L Sodium (137-145) mmol/L Potassium (3.5-5.1) mmol/L Chloride (98-107) mmol/L Carbon Dioxide (22-30) mmol/L BUN (9-20) mg/dL Creatinine (0.66-1.25) mg/dL Glucose (74-99) mg/dL POC Glucose (mg/dL) 180 H 182 H (75-99) mg/dL Plasma Lactic Acid Aaron (0.7-2.0) mmol/L Calcium (8.4-10.2) mg/dL Ionized Calcium Yuval (4.5-5.3) mg/dL Phosphorus (2.5-4.5) mg/dL Magnesium (1.6-2.3) mg/dL Total Bilirubin (0.2-1.3) mg/dL AST (17-59) U/L Total Protein (6.3-8.2) g/dL Albumin (3.5-5.0) g/dL 04/02/17 04/02/17 04/02/17 Range/Units 08:11 08:15 09:09 WBC (3.8-10.6) k/uL RBC (4.30-5.90) m/uL Hgb (13.0-17.5) gm/dL Hct (39.0-53.0) % Plt Count (150-450) k/uL Neutrophils # (Manual) (1.3-7.7) k/uL Lymphocytes # (Manual) (1.0-4.8) k/uL Monocytes # (Manual) (0-1.0) k/uL ABG pCO2 (35-45) mmHg ABG HCO3 (21-25) mmol/L ABG O2 Saturation (94-97) % ABG Lactic Acid 5.0 H* (0.5-1.6) mmol/L Sodium (137-145) mmol/L Potassium (3.5-5.1) mmol/L Chloride (98-107) mmol/L Carbon Dioxide (22-30) mmol/L BUN (9-20) mg/dL Creatinine (0.66-1.25) mg/dL Glucose (74-99) mg/dL POC Glucose (mg/dL) 191 H 190 H (75-99) mg/dL Plasma Lactic Acid Aaron (0.7-2.0) mmol/L Calcium (8.4-10.2) mg/dL Ionized Calcium Yuval (4.5-5.3) mg/dL Phosphorus (2.5-4.5) mg/dL Magnesium (1.6-2.3) mg/dL Total Bilirubin (0.2-1.3) mg/dL AST (17-59) U/L Total Protein (6.3-8.2) g/dL Albumin (3.5-5.0) g/dL 04/02/17 04/02/17 04/02/17 Range/Units 10:43 12:21 13:13 WBC (3.8-10.6) k/uL RBC (4.30-5.90) m/uL Hgb (13.0-17.5) gm/dL Hct (39.0-53.0) % Plt Count (150-450) k/uL Neutrophils # (Manual) (1.3-7.7) k/uL Lymphocytes # (Manual) (1.0-4.8) k/uL Monocytes # (Manual) (0-1.0) k/uL ABG pCO2 (35-45) mmHg ABG HCO3 (21-25) mmol/L ABG O2 Saturation (94-97) % ABG Lactic Acid (0.5-1.6) mmol/L Sodium (137-145) mmol/L Potassium (3.5-5.1) mmol/L Chloride (98-107) mmol/L Carbon Dioxide (22-30) mmol/L BUN (9-20) mg/dL Creatinine (0.66-1.25) mg/dL Glucose (74-99) mg/dL POC Glucose (mg/dL) 286 H 226 H 204 H (75-99) mg/dL Plasma Lactic Acid Aaron (0.7-2.0) mmol/L Calcium (8.4-10.2) mg/dL Ionized Calcium Yuval (4.5-5.3) mg/dL Phosphorus (2.5-4.5) mg/dL Magnesium (1.6-2.3) mg/dL Total Bilirubin (0.2-1.3) mg/dL AST (17-59) U/L Total Protein (6.3-8.2) g/dL Albumin (3.5-5.0) g/dL Microbiology - Last 24 Hours (Table) 03/29/17 19:12 Urine Culture - Final Urine,Catheterized Enterobacter aerogenes Pseudomonas aeruginosa 04/02/17 04:32 Urine Culture - Preliminary Urine,Catheterized 04/01/17 16:30 Gram Stain - Preliminary Sputum Sputum Culture - Preliminary 03/31/17 20:00 Blood Culture Gram Stain - Preliminary Blood Blood Culture - Preliminary Gram Neg Bacilli 03/31/17 19:45 Blood Culture Gram Stain - Preliminary Blood Blood Culture - Preliminary Gram Neg Bacilli 03/31/17 19:45 Blood Culture - Final Blood 03/31/17 20:00 Blood Culture - Final Blood Assessment and Plan Assessment: Impression: 1 acute septic shock secondary to urinary tract infection, acute cystitis secondary to Enterobacter aerogenes and pseudomonas aeruginosa as noted in the urine. His blood cultures are showing gram-negative bacilli. 2 acute hypoxic respiratory failure secondary to above. 3 acute metabolic, lactic acidosis secondary to 1. 4 history of paraplegia and neurogenic bladder. 5 acute kidney injury secondary to sepsis and septic shock. 6 history of nephrolithiasis/bilateral. 7 history of multiple surgeries including skin graft for pressure sores, right ureteroscopy with lithotripsy in 2005 and external sphincterotomy 1990 and 1994. Recommendation: Continue present antibiotics, ventilatory support, hemodynamic support, nutritional support, GI and DVT prophylaxis, yesterday, the patient had a triple lumen catheter placement in the right femoral area, tolerated the procedure well. Today I discussed his condition again with the family at bedside, patient remains critically ill, still requiring significant amount of fluid boluses and IV fluids, still requiring significant amount of pressors, still requiring antibiotics in the form of Zosyn and Merrem. What is reassuring at this point is the fact that the patient is not developing any worsening kidney injury, as a matter of fact his kidneys are improving with the fluids, and his pulmonary status seems to be stable no evidence of ARDS, but he continues to have significant retrocardiac opacity in the left lower lobe, may have to be eventually evaluated via bronchoscopy. Prognosis remains guarded, patient remains critically ill, we'll continue to follow closely. Critical care time is 45 minutes. Time with Patient: Greater than 30
[2017-04-02] MEDS: SODIUM CHLORIDE 0.45% 1,000 ML IV SCH ×3 (14:13→23:13)
[2017-04-02 14:14] LABS: Glucose,Whole Blood 193 mg/dL (75-99)
[2017-04-02 14:39] LABS: Ionized Calcium 3.5 mg/dL (4.5-5.3)
[2017-04-02 14:44] LABS: Magnesium 1.4 mg/dL (1.6-2.3); Phosphorus 1.8 mg/dL (2.5-4.5); Potassium 3.2 mmol/L (3.5-5.1)
[2017-04-02 15:13] LABS: Glucose,Whole Blood 154 mg/dL (75-99)
[2017-04-02] MEDS ORDERED: Magnesium Replacement Protocol 1 EACH MISC MISCELLANE PRN (15:30)
[2017-04-02] MEDS ORDERED: Phosphorus Replacement Protoco 1 EACH MISC MISCELLANE PRN (15:30)
[2017-04-02] MEDS ORDERED: ALBUMIN HUMAN 25% 50 ML in EMPTY BAG 1 BAG IVPB ONE (15:39)
[2017-04-02] MEDS: POTASSIUM PHOSPHATE 10 MMOL in SODIUM CHLORIDE 0.9% 100 ML IV SCH ×2 (16:13→18:13)
[2017-04-02 16:40] LABS: Glucose,Whole Blood 147 mg/dL (75-99)
[2017-04-02 17:43] LABS: Glucose,Whole Blood 142 mg/dL (75-99)
[2017-04-02 18:32] LABS: Glucose,Whole Blood 167 mg/dL (75-99)
--- NOTE | 2017-04-02 18:37 | PN ---
PROGRESS NOTE DATE OF SERVICE: 04/02/2017. The patient remains in ICU remains intubated and on Levophed. The patient is awake and responsive. VITAL SIGNS: Blood pressure 99/49, respiration 26, pulse ranging between 120-125. On examination, HEENT: Atraumatic, normocephalic. Pupils equal and reactive to light. Extraocular movements are intact. Buccal mucosa is fair. Neck is supple. LUNGS: Decreased breath sounds in both bases. No rales, rhonchi. HEART: Tachycardic, regular rhythm. ABDOMEN: Soft, nontender, nondistended. Bowel sounds positive. EXTREMITIES: No edema, clubbing, cyanosis. LABS: CBC, white blood count of 36.3, hemoglobin 11.5, hematocrit 33.9, and platelet count of 127. Chemical profile sodium 140, potassium 2.9, chloride 112, bicarb 14, BUN 27, creatinine 1.5, glucose of 246. ASSESSMENT: 1. Severe sepsis with hypotension secondary to gram-negative bacteremia secondary to Enterobacter urinary tract infection. 2. New onset seizures. 3. Acute renal failure with uremia. 4. Marked hypokalemia. PLAN: Continue on current antibiotic. Patient remains on ventilator support. Stucco Mason is following for vent management and IV antibiotics. The patient remains on GI and DVT prophylaxis. The patient's prognosis remains guarded. Remains critically ill. Will follow the patient with the movie shot camera operator. LAZARO / NEEMA: [id number] /
[2017-04-02 19:57] LABS: Glucose,Whole Blood 163 mg/dL (75-99)
[2017-04-02 21:03] LABS: Glucose,Whole Blood 144 mg/dL (75-99)
[2017-04-02 21:52] LABS: Glucose,Whole Blood 141 mg/dL (75-99)
[2017-04-02 22:50] LABS: Glucose,Whole Blood 143 mg/dL (75-99)
[2017-04-03 00:03] LABS: Glucose,Whole Blood 125 mg/dL (75-99)
[2017-04-03 00:16] LABS: Anion Gap 11 mmol/L; Blood Urea Nitrogen 13 mg/dL (9-20); Carbon Dioxide 23 mmol/L (22-30); Chloride 110 mmol/L (98-107); Glucose 141 mg/dL (74-99); Magnesium 1.6 mg/dL (1.6-2.3); Phosphorus 2.4 mg/dL (2.5-4.5); Sodium 144 mmol/L (137-145)
[2017-04-03 00:47] LABS: Glucose,Whole Blood 129 mg/dL (75-99)
[2017-04-03 01:01] LABS: Calcium 5.3 mg/dL (8.4-10.2)
[2017-04-03 01:02] LABS: Ionized Calcium 3.3 mg/dL (4.5-5.3)
[2017-04-03] MEDS ORDERED: Potassium Replacement Protocol 1 EACH MISC MISCELLANE PRN ×2 (01:25→06:21)
[2017-04-03] MEDS ORDERED: POTASSIUM CHLORIDE 20 MEQ in WATER FOR INJECTION 1 100ML.BAG IVPB ONE (01:25)
[2017-04-03] MEDS ORDERED: Magnesium Replacement Protocol 1 EACH MISC MISCELLANE PRN (01:26)
[2017-04-03] MEDS ORDERED: CALCIUM GLUCONATE 2,000 MG in SODIUM CHLORIDE 0.9% 100 ML IVPB ONE ×2 (01:27→07:30)
[2017-04-03] MEDS: POTASSIUM CHLORIDE ORAL LIQUID 40 MEQ/30 ML CUP NG-TUBE SCH ×5 (02:04→09:06)
[2017-04-03] MEDS: MAGNESIUM SULFATE-D5W PMX 1 GM in DEXTROSE/WATER 1 100ML.BAG IVPB SCH ×2 (02:04→03:27)
[2017-04-03 02:23] LABS: Glucose,Whole Blood 130 mg/dL (75-99)
[2017-04-03] MEDS: IPRATROPIUM-ALBUTEROL 3 ML NEB INHALATION SCH ×6 (03:18→22:52)
[2017-04-03] MEDS: HYDROCORTISONE SUCCINATE 100 MG/2 ML VIAL IV SCH ×3 (03:32→18:06)
[2017-04-03] MEDS: MEROPENEM 1 GM in SODIUM CHLORIDE 0.9% 100 ML IVPB SCH ×3 (03:33→20:36)
[2017-04-03] MEDS: NOREPINEPHRIN 16 MG-0.9%NS PMX 16 MG/250 ML ML IV SCH ×3 (03:33→17:59)
[2017-04-03 03:34] LABS: Glucose,Whole Blood 141 mg/dL (75-99)
[2017-04-03] MEDS: SODIUM CHLORIDE 0.45% 1,000 ML IV SCH ×4 (04:28→23:20)
[2017-04-03] MEDS: SODIUM CHLORIDE 0.9% 99 ML with VASOPRESSIN 20 UNIT IV SCH ×6 (05:21→20:36)
[2017-04-03 05:31] LABS: Glucose,Whole Blood 132 mg/dL (75-99)
[2017-04-03 05:33] LABS: HCT 30.2 % (39.0-53.0); HGB 10.3 gm/dL (13.0-17.5); MCH 28.6 pg (25.0-35.0); Mean Platelet Volume 8.1; Platelet Count 88 k/uL (150-450); RDW 15.4 % (11.5-15.5)
[2017-04-03 05:42] LABS: Anion Gap 10 mmol/L; Blood Urea Nitrogen 12 mg/dL (9-20); Carbon Dioxide 22 mmol/L (22-30); Chloride 109 mmol/L (98-107); Glucose 129 mg/dL (74-99); Magnesium 1.6 mg/dL (1.6-2.3); Phosphorus 2.5 mg/dL (2.5-4.5); Potassium 3.5 mmol/L (3.5-5.1); Sodium 141 mmol/L (137-145)
[2017-04-03 05:45] LABS: WBC 42.4 k/uL (3.8-10.6)
[2017-04-03 06:00] LABS: Calcium 5.5 mg/dL (8.4-10.2)
[2017-04-03 06:06] LABS: Band Neutrophils % 4 %; Lymphocytes # (M) 0.42 k/uL (1.0-4.8); Metamyelocytes # (M) 0.42 k/uL (0); Metamyelocytes % 1 %; Monocytes # (M) 0.85 k/uL (0-1.0); Neutrophils % (M) 92 %; Nucleated Red Blood Cells 0 /100 WBC (0-0); Total Cells Counted 100
[2017-04-03 06:25] LABS: Glucose,Whole Blood 114 mg/dL (75-99)
[2017-04-03] MEDS: PROPOFOL 1,000 MG in EMPTY BAG 1 BAG IV SCH ×2 (06:31→20:37)
--- NOTE | 2017-04-03 07:01 | XR ---
EXAMINATION TYPE: XR chest 1V portable DATE OF EXAM: 04/03/2017 HISTORY: Tube placement. REFERENCE: Previous study dated 04/02/2017. FINDINGS: The patient is ET tube and NG tube remain in place, unchanged in appearance. The heart is enlarged. The left basilar airspace disease. There is a left-sided effusion. There has b een no interval change in the appearance of the chest. IMPRESSION: NO SIGNIFICANT INTERVAL CHANGE IN THE APPEARANCE OF THE CHEST.
[2017-04-03 07:04] LABS: Glucose,Whole Blood 137 mg/dL (75-99)
[2017-04-03] MEDS: PIPERACILLIN-TAZOBACTAM 3.375 GM in DEXTROSE/WATER 1 50ML.BAG IVPB SCH ×3 (07:47→23:04)
[2017-04-03 08:06] LABS: Glucose,Whole Blood 150 mg/dL (75-99)
[2017-04-03] MEDS ORDERED: SODIUM CHLORIDE 0.9% 1,000 ML IV ONE (08:10)
[2017-04-03] MEDS ORDERED: ALBUMIN HUMAN 25% 50 ML in EMPTY BAG 1 BAG IVPB ONE (08:10)
[2017-04-03] MEDS: CHLORHEXIDINE GLUCONATE 15 ML CUP MUCOUS MEM SCH ×2 (08:15→20:40)
[2017-04-03] MEDS: PANTOPRAZOLE 40 MG/10 ML VIAL IV SCH (08:18)
[2017-04-03] MEDS ORDERED: VANCOMYCIN IV PER PHARMACY 1 EACH MISC MISCELLANE PRN (08:28)
[2017-04-03 08:37] LABS: ABG HCO3 20 mmol/L (21-25); ABG PCO2 32 mmHg (35-45); ABG PH 7.42 (7.35-7.45); ABG PO2 79 mmHg (83-108)
[2017-04-03 08:38] LABS: ABG Base Excess -4.1 mmol/L
[2017-04-03] MEDS ORDERED: VANCOMYCIN 1,750 MG in SODIUM CHLORIDE 0.9% 250 ML IVPB SCH (09:00)
[2017-04-03 09:07] LABS: Glucose,Whole Blood 136 mg/dL (75-99)
[2017-04-03] MEDS: levETIRAcetam IV 1,000 MG in SALINE 1 100ML.BAG IVPB SCH ×2 (09:41→21:55)
[2017-04-03 10:13] LABS: Glucose,Whole Blood 128 mg/dL (75-99)
[2017-04-03 11:06] LABS: Glucose,Whole Blood 150 mg/dL (75-99)
[2017-04-03 12:05] LABS: Glucose,Whole Blood 152 mg/dL (75-99)
--- NOTE | 2017-04-03 12:05 | PN ---
PROGRESS NOTE DATE OF SERVICE: 04/02/2017 REASON FOR EVALUATION: Followup sepsis secondary to urinary source. INTERVAL HISTORY: The patient did have a low-grade fever this morning, afebrile since then. Still requiring a significant amount of pressor support to maintain his blood pressure. The patient remained to be intubated on the vent. EXAMINATION: Blood pressure is 114/54 with a pulse of 90, temperature of 99. He is 95% on 45 % FiO2. General description is a middle-aged male lying in bed in no distress. Respiratory system unlabored breathing, coarse breath sounds bilaterally. Heart S1, S2. Tachycardic. Abdomen soft, no tenderness, no rigidity. LABS: Hemoglobin 11.5, white count 36.3, BUN of 20, creatinine 1.0. Lactic acid remained to be elevated. Urine did show Enterobacter aeruginosa and Pseudomonas aeruginosa , both of them sensitive to meropenem which patient is on. Blood culture with gram- negative bacilli with the sensitivity still pending. DIAGNOSTIC IMPRESSION AND PLAN: Patient with sepsis. Source is urinary, currently being maintained on meropenem and vancomycin which the patient antibiotic while waiting for the culture to finalize especially blood cultures. Overall prognosis remains to be guarded. Brother was counseled while at the bedside who is power of batch tank controller and all his questions were answered. MMODL / IJN: [id number] / LUKASZ
--- NOTE | 2017-04-03 12:31 | P.PN ---
Subjective Progress Note Date: 04/03/17 Principal diagnosis: Acute septic shock secondary to acute urinary tract infection, cystitis. This is a 51-year-old white male, paraplegic, this is related to previous hockey accident and cervical spine injury at age 18. 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 Patient had external sphincterotomy in 1990 and 1994, and has been managed with an exdwelling catheter. In the last 2 weeks, the patient has been noticing dark color urine with some odor. On 03/28 patient was noticing some chills, and on the morning of 03/29 he developed gross hematuria but he was able to void. Later on the patient was passing clots, and he was unable to void. He developed significant suprapubic discomfort, and presented to the ER for evaluation. Upon evaluation the patient was noted to have slight leukocytosis, and renal failure with a BUN of [address] of the abdomen and pelvis showed bilateral nonobstructive renal calculi, and bilateral atrophy of the renal parenchyma. His bladder was noted to be distended, and question the possibility of bladder mass. Patient was started on Levaquin for treatment of urinary tract infection, and he was seen by urology on consultation were in the patient had cystoscopy, and he was found to have hemorrhagic cystitis. The procedure was done on 03/31/2017. Yesterday, in p.m., patient developed an episode of unresponsiveness, patient was hypotensive, nursing staff felt he may have had a seizure, hence he was treated with Keppra, patient was unable to protect his airways, and I was notified about the patient at that time. Patient was given fluid boluses for hypotension, started on levo fed, and later on vasopressin was started. Patient was sent for a CT of the brain which came back negative for CVA. And he was later transferred back to the ICU were and we determined that the patient has a clear cut picture of septic shock from his urinary tract infection which turned out to be secondary to Enterobacter species. Patient was already on Levaquin, this was discontinued and he was placed on Zosyn and Merrem. Overnight, the patient remained relatively hypotensive in spite of significant high doses of norepinephrine, and vasopressin was later started. Presently the patient is on 75 mics of norepinephrine, and he is on 0.05 units of vasopressin. Blood pressure is marginal, many fluid boluses were given, and I believe he received over 10 L of fluids. His urine output has been excellent and he seems to have a polyuria picture. Renal functioning seems to be significantly improved in the last 24 hours. Lactic acid remains high this morning at 5.1. All his electrolytes were abnormal including low potassium which was corrected, calcium was also corrected, and his creatinine improved from 2.36 down to 1.50. Urine cultures were noted, but no blood cultures have been noted so far. Today I saw the patient in the ICU, remains on mechanical ventilation, his ventilator settings are tidal volume of 500, assist control rate of 20, FiO2 is down to 50%, and PEEP is at 5. ABG showed a pO2 of 136 pCO2 of 31 pH of 7.23, hence the patient was given more bicarb, and kept on the bicarb drip with 3 A of bicarb in 1 L of D5W running at 1 25 mL per hour. In spite of all of this, the patient is on small dose of propofol, he is arousable, and follows simple instructions. Seems to be very appropriate. Neurology-yanez, the patient was given Keppra, and EEG was ordered, it is not certain whether the patient truly had a seizure or not. Patient was reevaluated today on 04/02/2017, remains on mechanical ventilation, same vent setting, however his FiO2 is decreased down to 45%, tidal volume remains at 500, assist control rate is at 20, and PEEP is at 5. ABG this morning showed a pO2 of 103 pCO2 of 33 pH of 7.40. Hence, down significantly on the sodium bicarb drip, The patient on IV fluids, patient still requiring significant fluid boluses to maintain an adequate mean arterial blood pressure. His urine output has been excellent, he is putting out almost 300 mL per hour. Patient continues to have leukocytosis with WBC count of 36.3 hemoglobin is 11.5. Renal profile is basically almost back to normal. And his acute kidney injury has resolved. Sodium is elevated, at 147, hence I changed his IV fluid 0.45 instead of 0.9. His electrolytes were noted to be abnormal, and these were all being corrected as per protocol. Chest x-ray continues to show retrocardiac consolidation, and small left pleural effusion. I was able to review an old x-ray from 2011, apparently had some chronic scarring in the left lower lobe, and some atelectasis in the left retrocardiac area, but not as pronounced as noted on this present x-ray from this admission. Patient remains on norepinephrine at 75 g, he is also on vasopressin at 0.05 units. Reevaluated today on 04/03/2017, patient remains on mechanical ventilation, same ventilator settings as noted above with FiO2 of 45% tidal volume of 500 assist control rate of 20 and PEEP of 5. ABG showed a pO2 of 79 pCO2 of 32 pH of 7.42 hence the sodium bicarb drip was discontinued. Lactic acid is responding but slowly and today's lactic acid is 3.9. More fluid boluses were given today, continues to have significant urine output, and patient had a positive balance of 2 L in the last 24 hours. Albumin will be given today, his potassium and calcium are being corrected as per protocol. Renal functioning remains normal. However WBC count is up to 42.4, hemoglobin is 10.3, platelets are down to 88,000, hence I have discontinued his Lovenox. One blood culture from the showed Enterobacter, another blood culture showed Enterobacter and nonhemolytic strep. The nonhemolytic strep is probably a contaminant. Patient was on vancomycin, doubt if we need to restart vancomycin at this point , patient is being followed by infectious disease, remains presently on Merrem and Zosyn to cover Enterobacter and Pseudomonas. Blood pressure-yanez, the patient remains on 45 mics of norepinephrine, and 0.05 units of vasopressin. We are in the process of titrating the norepinephrine down since the blood pressure seems to be holding better today than it was in the last couple of days. All meds were reviewed, patient also remains on propofol, relatively small dose to keep him slightly sedated, but the patient is arousable, and follows instructions. Chest x-ray continues to show left lower lobe retrocardiac opacity which is I believe chronic. Nutrition-yanez the patient seems to be tolerating tube feeding well via nasogastric tube. Objective - Vital Signs Vital signs: Vital Signs Temp 98.9 F 04/03/17 12:00 Pulse 91 04/03/17 12:00 Resp 20 04/03/17 12:00 BP 93/58 04/02/17 08:00 Pulse Ox 98 04/03/17 12:00 Intake & Output 04/02/17 04/03/17 04/03/17 18:59 06:59 18:59 Intake Total 6048.517 4856.785 3374.199 Output Total 5300 3360 755 Balance 355.505 4083.785 2619.199 Weight 112.4 kg 114.6 kg Intake: IV 3081.0 3148.5 1468.0 Dextrose 5% in Water 1, 650 000 ml @ 150 mls/hr IV . Q7H40M [facility] with Sodium Bicarb (1 Meq/ml) 150 ml Rx#:[id number] Dextrose 5% in Water 1, 500 100 000 ml @ 50 mls/hr IV . Q23H [facility] with Sodium Bicarb (1 Meq/ml) 150 ml Rx#:[id number] Dextrose 5%-0.45% NaCl 1, 1450 000 ml @ 200 mls/hr IV . Q5H [facility] Rx#:[id number] Magnesium Sulfate-D5w Pmx 200 200 1 gm In Dextrose/Water 1 100ml.bag @ 100 mls/hr IVPB Q1H [facility] Rx#: [id number] Piperacillin-Tazobactam 3 75.0 12.5 50.0 .375 gm In Dextrose/Water 1 50ml.bag @ 12.5 mls/hr IVPB Q8HR [facility] Rx#: [id number] Potassium Phosphate 10 250 mmol In Sodium Chloride 0 .9% 250 ml @ 125 mls/hr IV Q2H [facility] Rx#:[id number] Pressure Bag 36 36 18 Sodium Chloride 0.45% 1, 2000 1200 000 ml @ 200 mls/hr IV . Q5H [facility] Rx#:[id number] Sodium Chloride 0.9% 1, 320 000 ml @ 150 mls/hr IV . Q6H40M [facility] Rx#:[id number] levETIRAcetam IV 1,000 mg 100 400 100 In Saline 1 100ml.bag @ 400 mls/hr IVPB Q12HR [facility] Rx#:[id number] Intake, IV Titration 2967.517 8138.851 1884.199 Amount Albumin Human 25% 50 ml 50 In Empty Bag 1 bag @ 100 mls/hr IVPB ONCE ONE Rx#: [id number] Albumin Human 25% 50 ml 50 In Empty Bag 1 bag @ 100 mls/hr IVPB ONCE ONE Rx#: [id number] Calcium Gluconate 2,000 100 mg In Sodium Chloride 0.9 % 100 ml @ 100 mls/hr IVPB ONCE ONE Rx#: [id number] Calcium Gluconate 2,000 100 mg In Sodium Chloride 0.9 % 100 ml @ 100 mls/hr IVPB ONCE ONE Rx#: [id number] Dextrose 5% in Water 1, 250 50 000 ml @ 50 mls/hr IV . Q23H [facility] with Sodium Bicarb (1 Meq/ml) 150 ml Rx#:[id number] Insulin Regular 100 unit 55.816 In Sodium Chloride 0.9% 100 ml @ Per Protocol IV .Q0M [facility] Rx#:[id number] Insulin Regular 100 unit 130.107 91.722 10.777 In Sodium Chloride 0.9% 100 ml @ Per Protocol IV .Q0M [facility] Rx#:[id number] Magnesium Sulfate-D5w Pmx 200 100 1 gm In Dextrose/Water 1 100ml.bag @ 100 mls/hr IVPB Q1H [facility] Rx#: [id number] Meropenem 1 gm In Sodium 100 Chloride 0.9% 100 ml @ 200 mls/hr IVPB Q8H [facility] Rx#:[id number] Norepinephrin 16 mg-0.9% 956.594 646.563 235.422 Ns Pmx 16 mg In 250 ml @ Titrate IV .Q0M [facility] Rx#: [id number] Potassium Phosphate 10 100 50 mmol In Sodium Chloride 0 .9% 100 ml @ 50 mls/hr IV Q2H [facility] Rx#:[id number] Potassium Phosphate 10 125 mmol In Sodium Chloride 0 .9% 250 ml @ 125 mls/hr IV Q2H [facility] Rx#:[id number] Propofol 1,000 mg In 100 Empty Bag 1 bag @ Titrate IV .Q0M [facility] Rx#: [id number] Sodium Chloride 0.45% 1, 1000 200 000 ml @ 200 mls/hr IV . Q5H [facility] Rx#:[id number] Sodium Chloride 0.9% 1, 1000 000 ml @ 999 mls/hr IV . Q1H1M [facility] Rx#:[id number] Tube Feeding 410 350 Other 60 60 Output: Urine 5300 3360 755 Other: Voiding Method Indwelling Catheter Indwelling Catheter Indwelling Catheter ABP, PAP, CO, CI - Last Documented Arterial Blood Pressure 84/56 - Exam Physical Exam: Revealed a 51-year-old white male, morbidly obese, on mechanical ventilation, sedated, in no distress at present. HEENT:[ Short obese neck. Neck is supple.] [No neck masses.] [No thyromegaly.] [No JVD.] PERRLA, EOMI, moist mucous membranes. Endotracheal tube is intact. Chest: [Diminished breath sounds at the bases, especially at the left base. no crackles nor rhonchi no wheezes.] Cardiac Exam: [Normal S1 and S2, no S3 gallop, no murmur.] Abdomen: [Obese, Soft, nontender, no megaly, no rebound, no guarding, normal bowel sounds.] Extremities: [No clubbing, no edema, no cyanosis. Significant muscle atrophy and wasting of muscles noted in lower extremities, patient is paraplegic.] Flexion contractures noted bilaterally. Neurological Exam: [No focal neurologic deficit. Except for paraplegia from the waist down. Lymphatics: No lymphadenopathy. Psychiatric: Normal mood, affect, and cannot fully assess mental status exam.] - Labs CBC & Chem 7: 04/03/17 05:20 04/03/17 05:20 Labs: Abnormal Lab Results - Last 24 Hours (Table) 04/02/17 04/02/17 04/02/17 Range/Units 12:21 13:13 14:10 WBC (3.8-10.6) k/uL RBC (4.30-5.90) m/uL Hgb (13.0-17.5) gm/dL Hct (39.0-53.0) % Plt Count (150-450) k/uL Neutrophils # (Manual) (1.3-7.7) k/uL Lymphocytes # (Manual) (1.0-4.8) k/uL Metamyelocytes # (Man) (0) k/uL ABG pCO2 (35-45) mmHg ABG pO2 (83-108) mmHg ABG HCO3 (21-25) mmol/L ABG Lactic Acid (0.5-1.6) mmol/L Potassium (3.5-5.1) mmol/L Chloride (98-107) mmol/L Glucose (74-99) mg/dL POC Glucose (mg/dL) 226 H 204 H 193 H (75-99) mg/dL Calcium (8.4-10.2) mg/dL Ionized Calcium Yuval (4.5-5.3) mg/dL Phosphorus (2.5-4.5) mg/dL Magnesium (1.6-2.3) mg/dL 04/02/17 04/02/17 04/02/17 Range/Units 14:15 15:11 16:38 WBC (3.8-10.6) k/uL RBC (4.30-5.90) m/uL Hgb (13.0-17.5) gm/dL Hct (39.0-53.0) % Plt Count (150-450) k/uL Neutrophils # (Manual) (1.3-7.7) k/uL Lymphocytes # (Manual) (1.0-4.8) k/uL Metamyelocytes # (Man) (0) k/uL ABG pCO2 (35-45) mmHg ABG pO2 (83-108) mmHg ABG HCO3 (21-25) mmol/L ABG Lactic Acid (0.5-1.6) mmol/L Potassium 3.2 L (3.5-5.1) mmol/L Chloride (98-107) mmol/L Glucose (74-99) mg/dL POC Glucose (mg/dL) 154 H 147 H (75-99) mg/dL Calcium (8.4-10.2) mg/dL Ionized Calcium Yuval 3.5 L* (4.5-5.3) mg/dL Phosphorus 1.8 L (2.5-4.5) mg/dL Magnesium 1.4 L (1.6-2.3) mg/dL 04/02/17 04/02/17 04/02/17 Range/Units 17:40 18:31 18:31 WBC (3.8-10.6) k/uL RBC (4.30-5.90) m/uL Hgb (13.0-17.5) gm/dL Hct (39.0-53.0) % Plt Count (150-450) k/uL Neutrophils # (Manual) (1.3-7.7) k/uL Lymphocytes # (Manual) (1.0-4.8) k/uL Metamyelocytes # (Man) (0) k/uL ABG pCO2 (35-45) mmHg ABG pO2 (83-108) mmHg ABG HCO3 (21-25) mmol/L ABG Lactic Acid 5.5 H* (0.5-1.6) mmol/L Potassium (3.5-5.1) mmol/L Chloride (98-107) mmol/L Glucose (74-99) mg/dL POC Glucose (mg/dL) 142 H 167 H (75-99) mg/dL Calcium (8.4-10.2) mg/dL Ionized Calcium Yuval (4.5-5.3) mg/dL Phosphorus (2.5-4.5) mg/dL Magnesium (1.6-2.3) mg/dL 04/02/17 04/02/17 04/02/17 Range/Units 19:55 21:02 21:51 WBC (3.8-10.6) k/uL RBC (4.30-5.90) m/uL Hgb (13.0-17.5) gm/dL Hct (39.0-53.0) % Plt Count (150-450) k/uL Neutrophils # (Manual) (1.3-7.7) k/uL Lymphocytes # (Manual) (1.0-4.8) k/uL Metamyelocytes # (Man) (0) k/uL ABG pCO2 (35-45) mmHg ABG pO2 (83-108) mmHg ABG HCO3 (21-25) mmol/L ABG Lactic Acid (0.5-1.6) mmol/L Potassium (3.5-5.1) mmol/L Chloride (98-107) mmol/L Glucose (74-99) mg/dL POC Glucose (mg/dL) 163 H 144 H 141 H (75-99) mg/dL Calcium (8.4-10.2) mg/dL Ionized Calcium Yuval (4.5-5.3) mg/dL Phosphorus (2.5-4.5) mg/dL Magnesium (1.6-2.3) mg/dL 04/02/17 04/02/17 04/02/17 Range/Units 22:50 23:50 23:50 WBC (3.8-10.6) k/uL RBC (4.30-5.90) m/uL Hgb (13.0-17.5) gm/dL Hct (39.0-53.0) % Plt Count (150-450) k/uL Neutrophils # (Manual) (1.3-7.7) k/uL Lymphocytes # (Manual) (1.0-4.8) k/uL Metamyelocytes # (Man) (0) k/uL ABG pCO2 (35-45) mmHg ABG pO2 (83-108) mmHg ABG HCO3 (21-25) mmol/L ABG Lactic Acid 4.1 H* (0.5-1.6) mmol/L Potassium 3.0 L* (3.5-5.1) mmol/L Chloride 110 H (98-107) mmol/L Glucose 141 H (74-99) mg/dL POC Glucose (mg/dL) 143 H (75-99) mg/dL Calcium 5.3 L* (8.4-10.2) mg/dL Ionized Calcium Yuval 3.3 L* (4.5-5.3) mg/dL Phosphorus 2.4 L (2.5-4.5) mg/dL Magnesium (1.6-2.3) mg/dL 04/03/17 04/03/17 04/03/17 Range/Units 00:01 00:46 02:21 WBC (3.8-10.6) k/uL RBC (4.30-5.90) m/uL Hgb (13.0-17.5) gm/dL Hct (39.0-53.0) % Plt Count (150-450) k/uL Neutrophils # (Manual) (1.3-7.7) k/uL Lymphocytes # (Manual) (1.0-4.8) k/uL Metamyelocytes # (Man) (0) k/uL ABG pCO2 (35-45) mmHg ABG pO2 (83-108) mmHg ABG HCO3 (21-25) mmol/L ABG Lactic Acid (0.5-1.6) mmol/L Potassium (3.5-5.1) mmol/L Chloride (98-107) mmol/L Glucose (74-99) mg/dL POC Glucose (mg/dL) 125 H 129 H 130 H (75-99) mg/dL Calcium (8.4-10.2) mg/dL Ionized Calcium Yuval (4.5-5.3) mg/dL Phosphorus (2.5-4.5) mg/dL Magnesium (1.6-2.3) mg/dL 04/03/17 04/03/17 04/03/17 Range/Units 03:32 05:20 05:20 WBC 42.4 H* (3.8-10.6) k/uL RBC 3.60 L (4.30-5.90) m/uL Hgb 10.3 L (13.0-17.5) gm/dL Hct 30.2 L (39.0-53.0) % Plt Count 88 L (150-450) k/uL Neutrophils # (Manual) 40.70 H (1.3-7.7) k/uL Lymphocytes # (Manual) 0.42 L (1.0-4.8) k/uL Metamyelocytes # (Man) 0.42 H (0) k/uL ABG pCO2 (35-45) mmHg ABG pO2 (83-108) mmHg ABG HCO3 (21-25) mmol/L ABG Lactic Acid (0.5-1.6) mmol/L Potassium (3.5-5.1) mmol/L Chloride 109 H (98-107) mmol/L Glucose 129 H (74-99) mg/dL POC Glucose (mg/dL) 141 H (75-99) mg/dL Calcium 5.5 L* (8.4-10.2) mg/dL Ionized Calcium Yuval (4.5-5.3) mg/dL Phosphorus (2.5-4.5) mg/dL Magnesium (1.6-2.3) mg/dL 04/03/17 04/03/17 04/03/17 Range/Units 05:20 05:29 06:20 WBC (3.8-10.6) k/uL RBC (4.30-5.90) m/uL Hgb (13.0-17.5) gm/dL Hct (39.0-53.0) % Plt Count (150-450) k/uL Neutrophils # (Manual) (1.3-7.7) k/uL Lymphocytes # (Manual) (1.0-4.8) k/uL Metamyelocytes # (Man) (0) k/uL ABG pCO2 (35-45) mmHg ABG pO2 (83-108) mmHg ABG HCO3 (21-25) mmol/L ABG Lactic Acid 3.9 H* (0.5-1.6) mmol/L Potassium (3.5-5.1) mmol/L Chloride (98-107) mmol/L Glucose (74-99) mg/dL POC Glucose (mg/dL) 132 H (75-99) mg/dL Calcium (8.4-10.2) mg/dL Ionized Calcium Yuval 3.4 L* (4.5-5.3) mg/dL Phosphorus (2.5-4.5) mg/dL Magnesium (1.6-2.3) mg/dL 04/03/17 04/03/17 04/03/17 Range/Units 06:24 07:02 08:00 WBC (3.8-10.6) k/uL RBC (4.30-5.90) m/uL Hgb (13.0-17.5) gm/dL Hct (39.0-53.0) % Plt Count (150-450) k/uL Neutrophils # (Manual) (1.3-7.7) k/uL Lymphocytes # (Manual) (1.0-4.8) k/uL Metamyelocytes # (Man) (0) k/uL ABG pCO2 (35-45) mmHg ABG pO2 (83-108) mmHg ABG HCO3 (21-25) mmol/L ABG Lactic Acid (0.5-1.6) mmol/L Potassium (3.5-5.1) mmol/L Chloride (98-107) mmol/L Glucose (74-99) mg/dL POC Glucose (mg/dL) 114 H 137 H 150 H (75-99) mg/dL Calcium (8.4-10.2) mg/dL Ionized Calcium Yuval (4.5-5.3) mg/dL Phosphorus (2.5-4.5) mg/dL Magnesium (1.6-2.3) mg/dL 04/03/17 04/03/17 04/03/17 Range/Units 08:08 08:59 10:10 WBC (3.8-10.6) k/uL RBC (4.30-5.90) m/uL Hgb (13.0-17.5) gm/dL Hct (39.0-53.0) % Plt Count (150-450) k/uL Neutrophils # (Manual) (1.3-7.7) k/uL Lymphocytes # (Manual) (1.0-4.8) k/uL Metamyelocytes # (Man) (0) k/uL ABG pCO2 32 L (35-45) mmHg ABG pO2 79 L (83-108) mmHg ABG HCO3 20 L (21-25) mmol/L ABG Lactic Acid (0.5-1.6) mmol/L Potassium (3.5-5.1) mmol/L Chloride (98-107) mmol/L Glucose (74-99) mg/dL POC Glucose (mg/dL) 136 H 128 H (75-99) mg/dL Calcium (8.4-10.2) mg/dL Ionized Calcium Yuval (4.5-5.3) mg/dL Phosphorus (2.5-4.5) mg/dL Magnesium (1.6-2.3) mg/dL 04/03/17 04/03/17 Range/Units 11:04 12:02 WBC (3.8-10.6) k/uL RBC (4.30-5.90) m/uL Hgb (13.0-17.5) gm/dL Hct (39.0-53.0) % Plt Count (150-450) k/uL Neutrophils # (Manual) (1.3-7.7) k/uL Lymphocytes # (Manual) (1.0-4.8) k/uL Metamyelocytes # (Man) (0) k/uL ABG pCO2 (35-45) mmHg ABG pO2 (83-108) mmHg ABG HCO3 (21-25) mmol/L ABG Lactic Acid (0.5-1.6) mmol/L Potassium (3.5-5.1) mmol/L Chloride (98-107) mmol/L Glucose (74-99) mg/dL POC Glucose (mg/dL) 150 H 152 H (75-99) mg/dL Calcium (8.4-10.2) mg/dL Ionized Calcium Yuval (4.5-5.3) mg/dL Phosphorus (2.5-4.5) mg/dL Magnesium (1.6-2.3) mg/dL Microbiology - Last 24 Hours (Table) 03/31/17 19:45 Blood Culture Gram Stain - Final Blood Blood Culture - Final Enterobacter aerogenes Non Hemolytic Strep 04/01/17 16:30 Gram Stain - Final Sputum Sputum Culture - Final 04/01/17 21:10 Blood Culture - Preliminary Blood No Growth after 24 hours 04/01/17 21:46 Blood Culture - Preliminary Blood No Growth after 24 hours 04/01/17 21:54 Blood Culture - Preliminary Blood No Growth after 24 hours 03/31/17 20:00 Blood Culture Gram Stain - Final Blood Blood Culture - Final Enterobacter aerogenes 03/29/17 19:12 Urine Culture - Final Urine,Catheterized Enterobacter aerogenes Pseudomonas aeruginosa 04/02/17 04:32 Urine Culture - Preliminary Urine,Catheterized Assessment and Plan Assessment: Impression: 1 acute septic shock secondary to urinary tract infection, acute cystitis secondary to Enterobacter aerogenes and pseudomonas aeruginosa as noted in the urine. His blood cultures are positive for Enterobacter, and only one blood culture showed nonhemolytic strep which is probably a contamination, plus it is nonpathological or rarely pathological in nature. 2 acute hypoxic respiratory failure secondary to above. 3 acute metabolic, lactic acidosis secondary to 1. 4 history of paraplegia and neurogenic bladder. 5 acute kidney injury secondary to sepsis and septic shock. 6 history of nephrolithiasis/bilateral. 7 history of multiple surgeries including skin graft for pressure sores, right ureteroscopy with lithotripsy in 2005 and external sphincterotomy 1990 and 1994. Recommendation: Continue present antibiotics, ventilatory support, hemodynamic support, nutritional support, GI and DVT prophylaxis, yesterday, Today I discussed his condition again with the family at bedside, patient remains critically ill, still requiring significant amount of fluid boluses and IV fluids, still requiring significant amount of pressors, still requiring antibiotics in the form of Zosyn and Merrem. What is reassuring at this point is the fact that the patient is not developing any worsening kidney injury, as a matter of fact his kidneys are improving with the fluids, and his pulmonary status seems to be stable no evidence of ARDS, but he continues to have significant retrocardiac opacity in the left lower lobe, may have to be eventually evaluated via bronchoscopy. Prognosis remains guarded, patient remains critically ill, we'll continue to follow closely. Critical care time is 40 minutes. Time with Patient: Greater than 30
[2017-04-03 13:14] LABS: Glucose,Whole Blood 141 mg/dL (75-99)
[2017-04-03 14:25] LABS: Glucose,Whole Blood 133 mg/dL (75-99)
[2017-04-03 14:43] LABS: Ionized Calcium 3.7 mg/dL (4.5-5.3)
[2017-04-03 14:47] LABS: Potassium 4.2 mmol/L (3.5-5.1)
[2017-04-03 15:17] LABS: Glucose,Whole Blood 119 mg/dL (75-99)
--- NOTE | 2017-04-03 16:19 | P.PN ---
Subjective Progress Note Date: 04/03/17 Principal diagnosis: Seizure, toxic metabolic encephalopathy Neurology is following on a 51-year-old male with past history of spinal cord injury age 18. Patient has been having infectious process with noted urine culture abnormalities and changes that include activity. Many WBCs.. Patient originally presented on 03/29/2017 to the ED with chills, dark urine, gross hematuria and inability to void. While in the ICU, patient did experience what was reported to be a seizure. Initially there was questionable discussion regarding whether the activity was indeed a seizure. However, nursing staff relate that they believe that the occurrence was a seizure. EEG was performed previously noted epileptiform changes. He is continued on IV Keppra 1000 mg every 12 hours and staff/nursing personnel report no new neurological changes or seizure activity. On contact today, the patient was alert and oriented 3, no acute distress in the ICU on a ventilator. Interval Update (04/03/17) Nursing reports patient is more alert and interactive. No new seizure activity observed or reported. Patient was explained neurological disorder at the bedside with regard to his seizure status. Objective - Vital Signs Vital signs: Vital Signs Temp 98.9 F 04/03/17 12:00 Pulse 91 04/03/17 15:36 Resp 21 04/03/17 15:00 BP 93/58 04/02/17 08:00 Pulse Ox 97 04/03/17 15:00 Intake & Output 04/02/17 04/03/17 04/03/17 18:59 06:59 18:59 Intake Total 6048.517 4856.785 4137.846 Output Total 5300 3360 1180 Balance 674.897 5221.785 2957.846 Weight 112.4 kg 114.6 kg Intake: IV 3081.0 3148.5 2077.0 Dextrose 5% in Water 1, 650 000 ml @ 150 mls/hr IV . Q7H40M [facility] with Sodium Bicarb (1 Meq/ml) 150 ml Rx#:[id number] Dextrose 5% in Water 1, 500 100 000 ml @ 50 mls/hr IV . Q23H [facility] with Sodium Bicarb (1 Meq/ml) 150 ml Rx#:[id number] Dextrose 5%-0.45% NaCl 1, 1450 000 ml @ 200 mls/hr IV . Q5H [facility] Rx#:[id number] Magnesium Sulfate-D5w Pmx 200 200 1 gm In Dextrose/Water 1 100ml.bag @ 100 mls/hr IVPB Q1H [facility] Rx#: [id number] Piperacillin-Tazobactam 3 75.0 12.5 50.0 .375 gm In Dextrose/Water 1 50ml.bag @ 12.5 mls/hr IVPB Q8HR [facility] Rx#: [id number] Potassium Phosphate 10 250 mmol In Sodium Chloride 0 .9% 250 ml @ 125 mls/hr IV Q2H [facility] Rx#:[id number] Pressure Bag 36 36 27 Sodium Chloride 0.45% 1, 2000 1800 000 ml @ 200 mls/hr IV . Q5H [facility] Rx#:[id number] Sodium Chloride 0.9% 1, 320 000 ml @ 150 mls/hr IV . Q6H40M [facility] Rx#:[id number] levETIRAcetam IV 1,000 mg 100 400 100 In Saline 1 100ml.bag @ 400 mls/hr IVPB Q12HR [facility] Rx#:[id number] Intake, IV Titration 2967.517 3524.034 1007.846 Amount Albumin Human 25% 50 ml 50 In Empty Bag 1 bag @ 100 mls/hr IVPB ONCE ONE Rx#: [id number] Albumin Human 25% 50 ml 50 In Empty Bag 1 bag @ 100 mls/hr IVPB ONCE ONE Rx#: [id number] Calcium Gluconate 2,000 100 mg In Sodium Chloride 0.9 % 100 ml @ 100 mls/hr IVPB ONCE ONE Rx#: [id number] Calcium Gluconate 2,000 100 mg In Sodium Chloride 0.9 % 100 ml @ 100 mls/hr IVPB ONCE ONE Rx#: [id number] Dextrose 5% in Water 1, 250 50 000 ml @ 50 mls/hr IV . Q23H [facility] with Sodium Bicarb (1 Meq/ml) 150 ml Rx#:[id number] Insulin Regular 100 unit 55.816 In Sodium Chloride 0.9% 100 ml @ Per Protocol IV .Q0M [facility] Rx#:[id number] Insulin Regular 100 unit 130.107 91.722 42.424 In Sodium Chloride 0.9% 100 ml @ Per Protocol IV .Q0M [facility] Rx#:[id number] Magnesium Sulfate-D5w Pmx 200 100 1 gm In Dextrose/Water 1 100ml.bag @ 100 mls/hr IVPB Q1H [facility] Rx#: [id number] Meropenem 1 gm In Sodium 100 Chloride 0.9% 100 ml @ 200 mls/hr IVPB Q8H [facility] Rx#:[id number] Norepinephrin 16 mg-0.9% 956.594 646.563 298.422 Ns Pmx 16 mg In 250 ml @ Titrate IV .Q0M [facility] Rx#: [id number] Potassium Phosphate 10 100 50 mmol In Sodium Chloride 0 .9% 100 ml @ 50 mls/hr IV Q2H [facility] Rx#:[id number] Potassium Phosphate 10 125 mmol In Sodium Chloride 0 .9% 250 ml @ 125 mls/hr IV Q2H [facility] Rx#:[id number] Propofol 1,000 mg In 100 Empty Bag 1 bag @ Titrate IV .Q0M [facility] Rx#: [id number] Sodium Chloride 0.45% 1, 1000 200 000 ml @ 200 mls/hr IV . Q5H [facility] Rx#:[id number] Sodium Chloride 0.9% 1, 1000 000 ml @ 999 mls/hr IV . Q1H1M [facility] Rx#:[id number] Tube Feeding 410 410 Other 60 60 Output: Urine 5300 3360 1180 Other: Voiding Method Indwelling Catheter Indwelling Catheter Indwelling Catheter ABP, PAP, CO, CI - Last Documented Arterial Blood Pressure 87/60 - Exam Gen. appearance: Alert, in no apparent distress Head: Atraumatic normocephalic, normal inspection Eyes: Well appearance, PERRL, EOMI. absent: Scleral icterus, conjunctival injection, nystagmus, periorbital swelling. Ear nose and throat: Normal exam, mucous membranes moist Neck: Normal inspection. Absent tenderness, lymphadenopathy Respiratory: Intubated and on a ventilator Cardiovascular: Telemetry monitoring GIabdominal: no guarding, no rebound, no rigidity. Extremities: Does move upper extremities, grasps absent Neurological: Alert and oriented 3, cranial nerves II through XII intact- limited assessment dt ventilatory status, no unilateral lateralizing weakness and deficits from previous spinal cord injury are only deficits noted, no seizure activity noted on physical exam. He does communicate via blinking of his eyes. Patient today moves upper extremities, but cannot grasp. Patient has sensation to touch in all 4 extremities and no motor function in the bilateral LE which is consistent with his baseline. Psychological: Mood and affect appropriate setting - Labs CBC & Chem 7: 04/03/17 05:20 04/03/17 14:26 Labs: Abnormal Lab Results - Last 24 Hours (Table) 04/02/17 04/02/17 04/02/17 Range/Units 16:38 17:40 18:31 WBC (3.8-10.6) k/uL RBC (4.30-5.90) m/uL Hgb (13.0-17.5) gm/dL Hct (39.0-53.0) % Plt Count (150-450) k/uL Neutrophils # (Manual) (1.3-7.7) k/uL Lymphocytes # (Manual) (1.0-4.8) k/uL Metamyelocytes # (Man) (0) k/uL ABG pCO2 (35-45) mmHg ABG pO2 (83-108) mmHg ABG HCO3 (21-25) mmol/L ABG Lactic Acid 5.5 H* (0.5-1.6) mmol/L Potassium (3.5-5.1) mmol/L Chloride (98-107) mmol/L Glucose (74-99) mg/dL POC Glucose (mg/dL) 147 H 142 H (75-99) mg/dL Calcium (8.4-10.2) mg/dL Ionized Calcium Yuval (4.5-5.3) mg/dL Phosphorus (2.5-4.5) mg/dL 04/02/17 04/02/17 04/02/17 Range/Units 18:31 19:55 21:02 WBC (3.8-10.6) k/uL RBC (4.30-5.90) m/uL Hgb (13.0-17.5) gm/dL Hct (39.0-53.0) % Plt Count (150-450) k/uL Neutrophils # (Manual) (1.3-7.7) k/uL Lymphocytes # (Manual) (1.0-4.8) k/uL Metamyelocytes # (Man) (0) k/uL ABG pCO2 (35-45) mmHg ABG pO2 (83-108) mmHg ABG HCO3 (21-25) mmol/L ABG Lactic Acid (0.5-1.6) mmol/L Potassium (3.5-5.1) mmol/L Chloride (98-107) mmol/L Glucose (74-99) mg/dL POC Glucose (mg/dL) 167 H 163 H 144 H (75-99) mg/dL Calcium (8.4-10.2) mg/dL Ionized Calcium Yuval (4.5-5.3) mg/dL Phosphorus (2.5-4.5) mg/dL 04/02/17 04/02/17 04/02/17 Range/Units 21:51 22:50 23:50 WBC (3.8-10.6) k/uL RBC (4.30-5.90) m/uL Hgb (13.0-17.5) gm/dL Hct (39.0-53.0) % Plt Count (150-450) k/uL Neutrophils # (Manual) (1.3-7.7) k/uL Lymphocytes # (Manual) (1.0-4.8) k/uL Metamyelocytes # (Man) (0) k/uL ABG pCO2 (35-45) mmHg ABG pO2 (83-108) mmHg ABG HCO3 (21-25) mmol/L ABG Lactic Acid 4.1 H* (0.5-1.6) mmol/L Potassium (3.5-5.1) mmol/L Chloride (98-107) mmol/L Glucose (74-99) mg/dL POC Glucose (mg/dL) 141 H 143 H (75-99) mg/dL Calcium (8.4-10.2) mg/dL Ionized Calcium Yuval (4.5-5.3) mg/dL Phosphorus (2.5-4.5) mg/dL 04/02/17 04/03/17 04/03/17 Range/Units 23:50 00:01 00:46 WBC (3.8-10.6) k/uL RBC (4.30-5.90) m/uL Hgb (13.0-17.5) gm/dL Hct (39.0-53.0) % Plt Count (150-450) k/uL Neutrophils # (Manual) (1.3-7.7) k/uL Lymphocytes # (Manual) (1.0-4.8) k/uL Metamyelocytes # (Man) (0) k/uL ABG pCO2 (35-45) mmHg ABG pO2 (83-108) mmHg ABG HCO3 (21-25) mmol/L ABG Lactic Acid (0.5-1.6) mmol/L Potassium 3.0 L* (3.5-5.1) mmol/L Chloride 110 H (98-107) mmol/L Glucose 141 H (74-99) mg/dL POC Glucose (mg/dL) 125 H 129 H (75-99) mg/dL Calcium 5.3 L* (8.4-10.2) mg/dL Ionized Calcium Yuval 3.3 L* (4.5-5.3) mg/dL Phosphorus 2.4 L (2.5-4.5) mg/dL 04/03/17 04/03/17 04/03/17 Range/Units 02:21 03:32 05:20 WBC 42.4 H* (3.8-10.6) k/uL RBC 3.60 L (4.30-5.90) m/uL Hgb 10.3 L (13.0-17.5) gm/dL Hct 30.2 L (39.0-53.0) % Plt Count 88 L (150-450) k/uL Neutrophils # (Manual) 40.70 H (1.3-7.7) k/uL Lymphocytes # (Manual) 0.42 L (1.0-4.8) k/uL Metamyelocytes # (Man) 0.42 H (0) k/uL ABG pCO2 (35-45) mmHg ABG pO2 (83-108) mmHg ABG HCO3 (21-25) mmol/L ABG Lactic Acid (0.5-1.6) mmol/L Potassium (3.5-5.1) mmol/L Chloride (98-107) mmol/L Glucose (74-99) mg/dL POC Glucose (mg/dL) 130 H 141 H (75-99) mg/dL Calcium (8.4-10.2) mg/dL Ionized Calcium Yuval (4.5-5.3) mg/dL Phosphorus (2.5-4.5) mg/dL 04/03/17 04/03/17 04/03/17 Range/Units 05:20 05:20 05:29 WBC (3.8-10.6) k/uL RBC (4.30-5.90) m/uL Hgb (13.0-17.5) gm/dL Hct (39.0-53.0) % Plt Count (150-450) k/uL Neutrophils # (Manual) (1.3-7.7) k/uL Lymphocytes # (Manual) (1.0-4.8) k/uL Metamyelocytes # (Man) (0) k/uL ABG pCO2 (35-45) mmHg ABG pO2 (83-108) mmHg ABG HCO3 (21-25) mmol/L ABG Lactic Acid 3.9 H* (0.5-1.6) mmol/L Potassium (3.5-5.1) mmol/L Chloride 109 H (98-107) mmol/L Glucose 129 H (74-99) mg/dL POC Glucose (mg/dL) 132 H (75-99) mg/dL Calcium 5.5 L* (8.4-10.2) mg/dL Ionized Calcium Yuval (4.5-5.3) mg/dL Phosphorus (2.5-4.5) mg/dL 04/03/17 04/03/17 04/03/17 Range/Units 06:20 06:24 07:02 WBC (3.8-10.6) k/uL RBC (4.30-5.90) m/uL Hgb (13.0-17.5) gm/dL Hct (39.0-53.0) % Plt Count (150-450) k/uL Neutrophils # (Manual) (1.3-7.7) k/uL Lymphocytes # (Manual) (1.0-4.8) k/uL Metamyelocytes # (Man) (0) k/uL ABG pCO2 (35-45) mmHg ABG pO2 (83-108) mmHg ABG HCO3 (21-25) mmol/L ABG Lactic Acid (0.5-1.6) mmol/L Potassium (3.5-5.1) mmol/L Chloride (98-107) mmol/L Glucose (74-99) mg/dL POC Glucose (mg/dL) 114 H 137 H (75-99) mg/dL Calcium (8.4-10.2) mg/dL Ionized Calcium Yuval 3.4 L* (4.5-5.3) mg/dL Phosphorus (2.5-4.5) mg/dL 04/03/17 04/03/17 04/03/17 Range/Units 08:00 08:08 08:59 WBC (3.8-10.6) k/uL RBC (4.30-5.90) m/uL Hgb (13.0-17.5) gm/dL Hct (39.0-53.0) % Plt Count (150-450) k/uL Neutrophils # (Manual) (1.3-7.7) k/uL Lymphocytes # (Manual) (1.0-4.8) k/uL Metamyelocytes # (Man) (0) k/uL ABG pCO2 32 L (35-45) mmHg ABG pO2 79 L (83-108) mmHg ABG HCO3 20 L (21-25) mmol/L ABG Lactic Acid (0.5-1.6) mmol/L Potassium (3.5-5.1) mmol/L Chloride (98-107) mmol/L Glucose (74-99) mg/dL POC Glucose (mg/dL) 150 H 136 H (75-99) mg/dL Calcium (8.4-10.2) mg/dL Ionized Calcium Yuval (4.5-5.3) mg/dL Phosphorus (2.5-4.5) mg/dL 04/03/17 04/03/17 04/03/17 Range/Units 10:10 11:04 12:02 WBC (3.8-10.6) k/uL RBC (4.30-5.90) m/uL Hgb (13.0-17.5) gm/dL Hct (39.0-53.0) % Plt Count (150-450) k/uL Neutrophils # (Manual) (1.3-7.7) k/uL Lymphocytes # (Manual) (1.0-4.8) k/uL Metamyelocytes # (Man) (0) k/uL ABG pCO2 (35-45) mmHg ABG pO2 (83-108) mmHg ABG HCO3 (21-25) mmol/L ABG Lactic Acid (0.5-1.6) mmol/L Potassium (3.5-5.1) mmol/L Chloride (98-107) mmol/L Glucose (74-99) mg/dL POC Glucose (mg/dL) 128 H 150 H 152 H (75-99) mg/dL Calcium (8.4-10.2) mg/dL Ionized Calcium Yuval (4.5-5.3) mg/dL Phosphorus (2.5-4.5) mg/dL 04/03/17 04/03/17 04/03/17 Range/Units 13:12 14:22 14:26 WBC (3.8-10.6) k/uL RBC (4.30-5.90) m/uL Hgb (13.0-17.5) gm/dL Hct (39.0-53.0) % Plt Count (150-450) k/uL Neutrophils # (Manual) (1.3-7.7) k/uL Lymphocytes # (Manual) (1.0-4.8) k/uL Metamyelocytes # (Man) (0) k/uL ABG pCO2 (35-45) mmHg ABG pO2 (83-108) mmHg ABG HCO3 (21-25) mmol/L ABG Lactic Acid (0.5-1.6) mmol/L Potassium (3.5-5.1) mmol/L Chloride (98-107) mmol/L Glucose (74-99) mg/dL POC Glucose (mg/dL) 141 H 133 H (75-99) mg/dL Calcium (8.4-10.2) mg/dL Ionized Calcium Yuval 3.7 L (4.5-5.3) mg/dL Phosphorus (2.5-4.5) mg/dL 04/03/17 Range/Units 15:15 WBC (3.8-10.6) k/uL RBC (4.30-5.90) m/uL Hgb (13.0-17.5) gm/dL Hct (39.0-53.0) % Plt Count (150-450) k/uL Neutrophils # (Manual) (1.3-7.7) k/uL Lymphocytes # (Manual) (1.0-4.8) k/uL Metamyelocytes # (Man) (0) k/uL ABG pCO2 (35-45) mmHg ABG pO2 (83-108) mmHg ABG HCO3 (21-25) mmol/L ABG Lactic Acid (0.5-1.6) mmol/L Potassium (3.5-5.1) mmol/L Chloride (98-107) mmol/L Glucose (74-99) mg/dL POC Glucose (mg/dL) 119 H (75-99) mg/dL Calcium (8.4-10.2) mg/dL Ionized Calcium Yuval (4.5-5.3) mg/dL Phosphorus (2.5-4.5) mg/dL Microbiology - Last 24 Hours (Table) 04/02/17 04:32 Urine Culture - Final Urine,Catheterized 03/31/17 19:45 Blood Culture Gram Stain - Final Blood Blood Culture - Final Enterobacter aerogenes Non Hemolytic Strep 04/01/17 16:30 Gram Stain - Final Sputum Sputum Culture - Final 04/01/17 21:10 Blood Culture - Preliminary Blood No Growth after 24 hours 04/01/17 21:46 Blood Culture - Preliminary Blood No Growth after 24 hours 04/01/17 21:54 Blood Culture - Preliminary Blood No Growth after 24 hours 03/31/17 20:00 Blood Culture Gram Stain - Final Blood Blood Culture - Final Enterobacter aerogenes 03/29/17 19:12 Urine Culture - Final Urine,Catheterized Enterobacter aerogenes Pseudomonas aeruginosa Assessment and Plan (1) Toxic metabolic encephalopathy Current Visit: Yes Status: Acute Code(s): G92 - TOXIC ENCEPHALOPATHY SNOMED Code(s): 344938933 (2) Acute respiratory failure requiring reintubation Current Visit: Yes Status: Acute Code(s): J96.00 - ACUTE RESPIRATORY FAILURE , UNSP W HYPOXIA OR HYPERCAPNIA SNOMED Code(s): 361277543 (3) Paraplegia following spinal cord injury Current Visit: Yes Status: Acute Code(s): G82.20 - PARAPLEGIA, UNSPECIFIED SNOMED Code(s): 50740220 (4) Seizure Current Visit: Yes Status: Acute Code(s): R56.9 - UNSPECIFIED CONVULSIONS SNOMED Code(s): 51917829 Plan: 1. Toxic metabolic encephalopthy 2. Seizure disorder, epilepsy 3. Spinal cord injury 4. Acute respiratory failure requiring ventilatory support Plan: Toxic metabolic encephalopathy: Patient does have encephalopathy as a result of the significant infectious process noted in his WBC results. Continue to treat underlying infectious process. Neuro checks as scheduled for baseline status with known spinal cord injury. Seizure disorder, epilepsy: Patient does not have a past history of seizure. Patient had new onset seizure and staff were unclear if the activity witnessed was a seizure or not. Based on the EEG results, it does appear that the patient has epilepsy that is a new diagnosis. Patient will continue on keppra 1,000 mg, IV q12 hrs scheduled for seizure management. Seizure precautions are continued. Patient has had no new seizure in the last 48 hours. Spinal Cord Injury: He is now moving both upper extremities and per nursing staff upper extremity range of motion and physical ability is consistent with baseline. Patient did not grasped with either hand also consistent with baseline. Lower extremities have sensation but not motor function also consistent with baseline. Neurology will follow on an "as needed" basis and will be available for consult as requested. I discussed the patient's pertinent medical information with Dr. Thomas. He agrees with the plan of care as implemented.
[2017-04-03 17:01] LABS: Glucose,Whole Blood 131 mg/dL (75-99)
[2017-04-03 17:59] LABS: Glucose,Whole Blood 147 mg/dL (75-99)
[2017-04-03 18:17] LABS: Albumin 1.9 g/dL (3.5-5.0)
[2017-04-03 18:33] LABS: Calcium 5.7 mg/dL (8.4-10.2)
[2017-04-03 18:55] LABS: Glucose,Whole Blood 138 mg/dL (75-99)
[2017-04-03 20:05] LABS: Glucose,Whole Blood 133 mg/dL (75-99)
--- NOTE | 2017-04-03 20:41 | PN ---
PROGRESS NOTE DATE OF SERVICE: 04/03/2017. The patient remains in ICU and remains on mechanical ventilation. 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 The patient's vital signs temperature of 98.9, pulse 91, respirations 20, blood pressure 93/58, O2 saturation 98%. PHYSICAL EXAMINATION: The patient is a 51-year-old morbidly obese male, remains on mechanical ventilation. HEENT: Atraumatic, normocephalic. Pupils equal and reactive to light. Buccal mucosa is fair. NECK: Supple. No goiter or lymphadenopathy. JVD is negative. No carotid bruit heard. Respiratory: Lungs are decreased breath sounds posteriorly. No wheezes or rhonchi. CARDIOVASCULAR: Heart is regular rate and rhythm without any murmurs or gallop rhythm. Abdomen and GI. ABDOMEN: Soft, obese, nontender, nondistended. Bowel sounds positive. Extremities is no edema, clubbing or cyanosis. Has some atrophy, muscular atrophy and wasting in the lower extremity. Patient has history of paraplegia with some flexion contractures. Neurological examination: The patient has paraplegia from waist down. No focal deficits. LYMPHATICS: No lymph nodes palpable in axilla and neck area. LABS: CBC, white blood count of 42.4, hemoglobin 10.3, hematocrit 30.2, and platelet count of 88. Chemical profile sodium 141, potassium 3.5, chloride 109, bicarb 22, BUN 12, creatinine 0.9, and glucose of 129. ASSESSMENT: 1. Severe sepsis. The patient's white blood count is up to 42,000. Blood cultures showed Enterobacter. The patient's vancomycin has been discontinued. The patient remains on Merrem and Zosyn to cover Enterobacter and Pseudomonas. The high school football coach is dual minded about starting vancomycin. 2. seizure. seizure activity. 3. Acute renal failure with uremia. The patient remains on IV fluids per high school football coach. She had more fluid boluses were given with significant urine output. Renal function is normal now. 4. Hypokalemia and hypocalcemia, which were corrected. The patient remains in ICU with the ICU team managing the patient. Continue the antibiotics. Continue ventilator support. GI and DVT prophylaxis in place. MMODL / IJN: [id number] /
[2017-04-03 22:01] LABS: Glucose,Whole Blood 117 mg/dL (75-99)
[2017-04-03 23:14] LABS: Glucose,Whole Blood 134 mg/dL (75-99)
[2017-04-04 00:10] LABS: Glucose,Whole Blood 139 mg/dL (75-99)
[2017-04-04] MEDS: SODIUM CHLORIDE 0.45% 1,000 ML IV SCH ×5 (01:00→20:07)
[2017-04-04 01:09] LABS: Glucose,Whole Blood 135 mg/dL (75-99)
[2017-04-04 02:20] LABS: Glucose,Whole Blood 149 mg/dL (75-99)
[2017-04-04] MEDS: INSULIN REGULAR 100 UNIT in SODIUM CHLORIDE 0.9% 100 ML IV SCH (02:22)
[2017-04-04] MEDS: NOREPINEPHRIN 16 MG-0.9%NS PMX 16 MG/250 ML ML IV SCH ×2 (02:29→12:28)
[2017-04-04] MEDS: IPRATROPIUM-ALBUTEROL 3 ML NEB INHALATION SCH ×5 (03:01→19:18)
[2017-04-04] MEDS: SODIUM CHLORIDE 0.9% 99 ML with VASOPRESSIN 20 UNIT IV SCH ×8 (03:20→20:06)
--- NOTE | 2017-04-04 04:31 | PN ---
PROGRESS NOTE DATE OF SERVICE: 04/03/2017 REASON FOR FOLLOWUP: Gram-negative sepsis. INTERVAL HISTORY: The patient is afebrile. The patient hemodynamically with some improvement as he is requiring less amount of pressor to support his blood pressure. The patient remains to be intubated on the vent. He is to be awake and alert and follows commands appropriately and not specifically for any abdominal pain he denied. PHYSICAL EXAMINATION: On examination, blood pressure is 100/65 with a pulse of 94, temperature of 98. He is 93% on 45% FiO2. General description is a middle-aged male lying in bed in no distress. RESPIRATORY SYSTEM: Unlabored breathing, clear to auscultation anteriorly. HEART: S1, S2. Regular rate and rhythm. ABDOMEN: Soft, no tenderness. LABS: Hemoglobin is 10.8 with white count 42.4. BUN of 12, creatinine 0.90. The blood culture with Enterobacter aerogenes. Urine is Enterobacter and Pseudomonas. Repeat blood culture has been negative so far. The ID on the gram-positive in the blood culture so far pending. DIAGNOSTIC IMPRESSION AND PLAN: Patient with sepsis, source is urinary in a patient who did have Enterobacter UTI with secondary bacteremia with urine also showing Pseudomonas with a blood culture with gram- positive, still the ID on the gram positive is pending. Keep the patient on meropenem and vancomycin. White count remains to be elevated more likely secondary to steroid effect as clinically he has shown improvement by resolution of his fever and requiring lesser pressor support. The family was present at bedside. Their questions were answered. MMODL / IJN: [id number] /
[2017-04-04 04:37] LABS: Glucose,Whole Blood 121 mg/dL (75-99)
[2017-04-04 04:51] LABS: Basophils # (A) 0.1 k/uL (0-0.2); Basophils % (A) 0 %; Eosinophils % (A) 0 %; HCT 30.3 % (39.0-53.0); Lymphocytes # (A) 1.4 k/uL (1.0-4.8); Lymphocytes % (A) 4 %; MCH 28.7 pg (25.0-35.0); MCHC 33.1 g/dL (31.0-37.0); MCV 86.8 fL (80.0-100.0); Mean Platelet Volume 8.5; Monocytes # (A) 0.7 k/uL (0-1.0); Monocytes % (A) 2 %; Neutrophils # (A) 32.7 k/uL (1.3-7.7); Neutrophils % (A) 93 %; RBC 3.49 m/uL (4.30-5.90); RDW 15.8 % (11.5-15.5)
[2017-04-04 04:52] LABS: WBC 35.3 k/uL (3.8-10.6)
[2017-04-04 05:03] LABS: Ionized Calcium 3.6 mg/dL (4.5-5.3)
[2017-04-04 05:05] LABS: Glucose,Whole Blood 115 mg/dL (75-99)
[2017-04-04 05:08] LABS: Anion Gap 7 mmol/L; Blood Urea Nitrogen 16 mg/dL (9-20); Carbon Dioxide 21 mmol/L (22-30); Chloride 111 mmol/L (98-107); Glucose 125 mg/dL (74-99); Magnesium 1.3 mg/dL (1.6-2.3); Phosphorus 1.7 mg/dL (2.5-4.5); Sodium 139 mmol/L (137-145)
[2017-04-04 05:15] LABS: Platelet Count 62 k/uL (150-450)
[2017-04-04 05:22] LABS: Calcium 5.4 mg/dL (8.4-10.2)
[2017-04-04] MEDS: MEROPENEM 1 GM in SODIUM CHLORIDE 0.9% 100 ML IVPB SCH ×3 (06:05→20:01)
[2017-04-04] MEDS: HYDROCORTISONE SUCCINATE 100 MG/2 ML VIAL IV SCH (06:05)
[2017-04-04 06:14] LABS: Glucose,Whole Blood 139 mg/dL (75-99)
[2017-04-04] MEDS ORDERED: ALBUMIN HUMAN 25% 50 ML in EMPTY BAG 1 BAG IVPB ONE (06:52)
[2017-04-04] MEDS ORDERED: ALBUMIN HUMAN 25% 50 ML in EMPTY BAG 1 BAG IVPB SCH (07:00)
[2017-04-04] MEDS: MAGNESIUM SULFATE-D5W PMX 1 GM in DEXTROSE/WATER 1 100ML.BAG IVPB SCH ×3 (07:09→09:27)
[2017-04-04] MEDS ORDERED: CALCIUM GLUCONATE 1,000 MG in SODIUM CHLORIDE 0.9% 100 ML IVPB ONE (07:30)
[2017-04-04 07:36] LABS: ABG Base Excess -5.4 mmol/L; ABG HCO3 18 mmol/L (21-25); ABG Oxygen Saturation 97.9 % (94-97); ABG PCO2 30 mmHg (35-45); ABG PH 7.41 (7.35-7.45); ABG PO2 100 mmHg (83-108); ABG TCO2 19 mmol/L (19-24)
[2017-04-04] MEDS: SODIUM PHOSPHATE 10 MMOL in SODIUM CHLORIDE 0.9% 250 ML IVPB SCH ×2 (08:06→10:37)
[2017-04-04] MEDS: CHLORHEXIDINE GLUCONATE 15 ML CUP MUCOUS MEM SCH ×2 (08:08→20:01)
[2017-04-04] MEDS: PANTOPRAZOLE 40 MG/10 ML VIAL IV SCH (08:09)
--- NOTE | 2017-04-04 08:11 | XR ---
EXAMINATION TYPE: XR chest 1V portable DATE OF EXAM: 04/04/2017 COMPARISON: Prior chest x-ray dated 04/03/2017 HISTORY: Intubated TECHNIQUE: Single frontal view of the chest is obtained. FINDINGS: Endotracheal tube, NG tube are overlying appropriate positions. Patient is rotated and the re are overlying cardiac leads. Retrocardiac density persists, the left hemidiaphragm is obscured. Th ere is blunting of the right costophrenic angle. No evident pneumothorax. Heart size is stable. Perih ilar increased density is noted. IMPRESSION: Rotated exam. There may be lower lobe atelectasis versus pneumonia, associated effusion. Follow-up is recommended.
[2017-04-04] MEDS: PIPERACILLIN-TAZOBACTAM 3.375 GM in DEXTROSE/WATER 1 50ML.BAG IVPB SCH (08:12)
[2017-04-04] MEDS: levETIRAcetam IV 1,000 MG in SALINE 1 100ML.BAG IVPB SCH ×2 (08:12→20:01)
[2017-04-04 08:28] LABS: Glucose,Whole Blood 184 mg/dL (75-99)
[2017-04-04] MEDS: PROPOFOL 1,000 MG in EMPTY BAG 1 BAG IV SCH (09:37)
[2017-04-04 10:10] LABS: Glucose,Whole Blood 157 mg/dL (75-99)
[2017-04-04] MEDS: SODIUM CHLORIDE 0.9% 250 ML with HYDROCORTISONE SUCCINATE 250 MG IV SCH ×2 (10:41)
--- NOTE | 2017-04-04 11:23 | P.PN ---
Subjective Progress Note Date: 04/04/17 Principal diagnosis: Acute septic shock secondary to acute urinary tract infection, cystitis. This is a 51-year-old white male, paraplegic, this is related to previous hockey accident and cervical spine injury at age 18. 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 Patient had external sphincterotomy in 1990 and 1994, and has been managed with an exdwelling catheter. In the last 2 weeks, the patient has been noticing dark color urine with some odor. On 03/28 patient was noticing some chills, and on the morning of 03/29 he developed gross hematuria but he was able to void. Later on the patient was passing clots, and he was unable to void. He developed significant suprapubic discomfort, and presented to the ER for evaluation. Upon evaluation the patient was noted to have slight leukocytosis, and renal failure with a BUN of [address] of the abdomen and pelvis showed bilateral nonobstructive renal calculi, and bilateral atrophy of the renal parenchyma. His bladder was noted to be distended, and question the possibility of bladder mass. Patient was started on Levaquin for treatment of urinary tract infection, and he was seen by urology on consultation were in the patient had cystoscopy, and he was found to have hemorrhagic cystitis. The procedure was done on 03/31/2017. Yesterday, in p.m., patient developed an episode of unresponsiveness, patient was hypotensive, nursing staff felt he may have had a seizure, hence he was treated with Keppra, patient was unable to protect his airways, and I was notified about the patient at that time. Patient was given fluid boluses for hypotension, started on levo fed, and later on vasopressin was started. Patient was sent for a CT of the brain which came back negative for CVA. And he was later transferred back to the ICU were and we determined that the patient has a clear cut picture of septic shock from his urinary tract infection which turned out to be secondary to Enterobacter species. Patient was already on Levaquin, this was discontinued and he was placed on Zosyn and Merrem. Overnight, the patient remained relatively hypotensive in spite of significant high doses of norepinephrine, and vasopressin was later started. Presently the patient is on 75 mics of norepinephrine, and he is on 0.05 units of vasopressin. Blood pressure is marginal, many fluid boluses were given, and I believe he received over 10 L of fluids. His urine output has been excellent and he seems to have a polyuria picture. Renal functioning seems to be significantly improved in the last 24 hours. Lactic acid remains high this morning at 5.1. All his electrolytes were abnormal including low potassium which was corrected, calcium was also corrected, and his creatinine improved from 2.36 down to 1.50. Urine cultures were noted, but no blood cultures have been noted so far. Today I saw the patient in the ICU, remains on mechanical ventilation, his ventilator settings are tidal volume of 500, assist control rate of 20, FiO2 is down to 50%, and PEEP is at 5. ABG showed a pO2 of 136 pCO2 of 31 pH of 7.23, hence the patient was given more bicarb, and kept on the bicarb drip with 3 A of bicarb in 1 L of D5W running at 1 25 mL per hour. In spite of all of this, the patient is on small dose of propofol, he is arousable, and follows simple instructions. Seems to be very appropriate. Neurology-yanez, the patient was given Keppra, and EEG was ordered, it is not certain whether the patient truly had a seizure or not. Patient was reevaluated today on 04/02/2017, remains on mechanical ventilation, same vent setting, however his FiO2 is decreased down to 45%, tidal volume remains at 500, assist control rate is at 20, and PEEP is at 5. ABG this morning showed a pO2 of 103 pCO2 of 33 pH of 7.40. Hence, down significantly on the sodium bicarb drip, The patient on IV fluids, patient still requiring significant fluid boluses to maintain an adequate mean arterial blood pressure. His urine output has been excellent, he is putting out almost 300 mL per hour. Patient continues to have leukocytosis with WBC count of 36.3 hemoglobin is 11.5. Renal profile is basically almost back to normal. And his acute kidney injury has resolved. Sodium is elevated, at 147, hence I changed his IV fluid 0.45 instead of 0.9. His electrolytes were noted to be abnormal, and these were all being corrected as per protocol. Chest x-ray continues to show retrocardiac consolidation, and small left pleural effusion. I was able to review an old x-ray from 2011, apparently had some chronic scarring in the left lower lobe, and some atelectasis in the left retrocardiac area, but not as pronounced as noted on this present x-ray from this admission. Patient remains on norepinephrine at 75 g, he is also on vasopressin at 0.05 units. Reevaluated today on 04/03/2017, patient remains on mechanical ventilation, same ventilator settings as noted above with FiO2 of 45% tidal volume of 500 assist control rate of 20 and PEEP of 5. ABG showed a pO2 of 79 pCO2 of 32 pH of 7.42 hence the sodium bicarb drip was discontinued. Lactic acid is responding but slowly and today's lactic acid is 3.9. More fluid boluses were given today, continues to have significant urine output, and patient had a positive balance of 2 L in the last 24 hours. Albumin will be given today, his potassium and calcium are being corrected as per protocol. Renal functioning remains normal. However WBC count is up to 42.4, hemoglobin is 10.3, platelets are down to 88,000, hence I have discontinued his Lovenox. One blood culture from the showed Enterobacter, another blood culture showed Enterobacter and nonhemolytic strep. The nonhemolytic strep is probably a contaminant. Patient was on vancomycin, doubt if we need to restart vancomycin at this point , patient is being followed by infectious disease, remains presently on Merrem and Zosyn to cover Enterobacter and Pseudomonas. Blood pressure-yanez, the patient remains on 45 mics of norepinephrine, and 0.05 units of vasopressin. We are in the process of titrating the norepinephrine down since the blood pressure seems to be holding better today than it was in the last couple of days. All meds were reviewed, patient also remains on propofol, relatively small dose to keep him slightly sedated, but the patient is arousable, and follows instructions. Chest x-ray continues to show left lower lobe retrocardiac opacity which is I believe chronic. Nutrition-yanez the patient seems to be tolerating tube feeding well via nasogastric tube. The patient is seen again today 04/04/2017 in follow-up in the intensive care unit. He remains intubated on the mechanical ventilator with settings of assist control mode at a rate of 20, tidal volume 500, FiO2 45%, PEEP of 5. Morning blood gases reveal pO2 of 100, pCO2 30, pH 7.41 with a mixed acid-base abnormality including respiratory alkalosis and metabolic acidosis. The patient 's cultures were positive for Enterobacter aerogenes and pseudomonas aeruginosa in the urine, Enterobacter aerogenes nonhemolytic strep in the blood. He remains on meropenem and vancomycin. He is also on norepinephrine at 25 mcg/m, vasopressin at 0.05 units per minute, propofol at 11 mcg/kg/m, insulin at 7.5 units per hour. He is being nourished with Vital HP at 57 mL per hour which is goal. He has a 0.45 normal saline at 200 mL's per hour. He is alert and oriented and nods his head appropriately. Objective - Vital Signs Vital signs: Vital Signs Temp 98.2 F 04/04/17 08:00 Pulse 90 04/04/17 11:03 Resp 23 04/04/17 10:00 BP 78/51 04/04/17 10:00 Pulse Ox 95 04/04/17 10:00 Intake & Output 04/03/17 04/04/17 04/04/17 18:59 06:59 18:59 Intake Total 5383.861 5393.983 1737.999 Output Total 1445 850 335 Balance 3938.861 4543.983 1402.999 Weight 122.2 kg 122.2 kg Intake: IV 2939.0 3030 1212 Albumin Human 25% 50 ml 50 In Empty Bag 1 bag @ 100 mls/hr IVPB ONCE ONE Rx#: [id number] Calcium Gluconate 1,000 100 mg In Sodium Chloride 0.9 % 100 ml @ 100 mls/hr IVPB ONCE ONE Rx#: [id number] Dextrose 5% in Water 1, 100 000 ml @ 50 mls/hr IV . Q23H [facility] with Sodium Bicarb (1 Meq/ml) 150 ml Rx#:[id number] Magnesium Sulfate-D5w Pmx 100 1 gm In Dextrose/Water 1 100ml.bag @ 100 mls/hr IVPB Q1H [facility] Rx#: [id number] Piperacillin-Tazobactam 3 100.0 50 .375 gm In Dextrose/Water 1 50ml.bag @ 12.5 mls/hr IVPB Q8HR [facility] Rx#: [id number] Pressure Bag 39 30 12 Sodium Chloride 0.45% 1, 2600 2000 800 000 ml @ 200 mls/hr IV . Q5H [facility] Rx#:[id number] levETIRAcetam IV 1,000 mg 100 1000 100 In Saline 1 100ml.bag @ 400 mls/hr IVPB Q12HR [facility] Rx#:[id number] Intake, IV Titration 7385.015 9990.983 231.999 Amount Albumin Human 25% 50 ml 50 In Empty Bag 1 bag @ 100 mls/hr IVPB ONCE ONE Rx#: [id number] Calcium Gluconate 2,000 100 mg In Sodium Chloride 0.9 % 100 ml @ 100 mls/hr IVPB ONCE ONE Rx#: [id number] Insulin Regular 100 unit 42.424 40.221 12.238 In Sodium Chloride 0.9% 100 ml @ Per Protocol IV .Q0M [facility] Rx#:[id number] Meropenem 1 gm In Sodium 100 Chloride 0.9% 100 ml @ 200 mls/hr IVPB Q8H [facility] Rx#:[id number] Norepinephrin 16 mg-0.9% 382.437 338.522 136.561 Ns Pmx 16 mg In 250 ml @ Titrate IV .Q0M [facility] Rx#: [id number] Propofol 1,000 mg In 90.24 83.2 Empty Bag 1 bag @ Titrate IV .Q0M [facility] Rx#: [id number] Sodium Chloride 0.9% 1, 1000 1000 000 ml @ 999 mls/hr IV . Q1H1M [facility] Rx#:[id number] Tube Feeding 710 805 264 Other 60 90 30 Output: Urine 1445 850 335 Other: Voiding Method Indwelling Catheter Indwelling Catheter Indwelling Catheter ABP, PAP, CO, CI - Last Documented Arterial Blood Pressure 88/62 - Exam Physical Exam: Revealed a 51-year-old white male, morbidly obese, on mechanical ventilation, sedated, in no distress at present. HEENT:[ Short obese neck. Neck is supple.] [No neck masses.] [No thyromegaly.] [No JVD.] PERRLA, EOMI, moist mucous membranes. Endotracheal tube is intact. Chest: [Diminished breath sounds at the bases, especially at the left base. no crackles nor rhonchi no wheezes.] Cardiac Exam: [Normal S1 and S2, no S3 gallop, no murmur.] Abdomen: [Obese, Soft, nontender, no megaly, no rebound, no guarding, normal bowel sounds.] Extremities: [No clubbing, no edema, no cyanosis. Significant muscle atrophy and wasting of muscles noted in lower extremities, patient is paraplegic.] Flexion contractures noted bilaterally. Neurological Exam: [No focal neurologic deficit. Except for paraplegia from the waist down. Lymphatics: No lymphadenopathy. Psychiatric: Normal mood, affect, and cannot fully assess mental status exam. - Labs CBC & Chem 7: 04/04/17 04:30 04/04/17 04:30 Labs: Abnormal Lab Results - Last 24 Hours (Table) 04/03/17 04/03/17 04/03/17 Range/Units 12:02 13:12 14:22 WBC (3.8-10.6) k/uL RBC (4.30-5.90) m/uL Hgb (13.0-17.5) gm/dL Hct (39.0-53.0) % RDW (11.5-15.5) % Plt Count (150-450) k/uL Neutrophils # (1.3-7.7) k/uL ABG pCO2 (35-45) mmHg ABG HCO3 (21-25) mmol/L ABG O2 Saturation (94-97) % ABG Lactic Acid (0.5-1.6) mmol/L Chloride (98-107) mmol/L Carbon Dioxide (22-30) mmol/L Glucose (74-99) mg/dL POC Glucose (mg/dL) 152 H 141 H 133 H (75-99) mg/dL Calcium (8.4-10.2) mg/dL Ionized Calcium Yuval (4.5-5.3) mg/dL Phosphorus (2.5-4.5) mg/dL Magnesium (1.6-2.3) mg/dL Albumin (3.5-5.0) g/dL 04/03/17 04/03/17 04/03/17 Range/Units 14:26 14:26 15:15 WBC (3.8-10.6) k/uL RBC (4.30-5.90) m/uL Hgb (13.0-17.5) gm/dL Hct (39.0-53.0) % RDW (11.5-15.5) % Plt Count (150-450) k/uL Neutrophils # (1.3-7.7) k/uL ABG pCO2 (35-45) mmHg ABG HCO3 (21-25) mmol/L ABG O2 Saturation (94-97) % ABG Lactic Acid (0.5-1.6) mmol/L Chloride (98-107) mmol/L Carbon Dioxide (22-30) mmol/L Glucose (74-99) mg/dL POC Glucose (mg/dL) 119 H (75-99) mg/dL Calcium 5.7 L* (8.4-10.2) mg/dL Ionized Calcium Yuval 3.7 L (4.5-5.3) mg/dL Phosphorus (2.5-4.5) mg/dL Magnesium (1.6-2.3) mg/dL Albumin 1.9 L (3.5-5.0) g/dL 04/03/17 04/03/17 04/03/17 Range/Units 16:59 17:56 17:57 WBC (3.8-10.6) k/uL RBC (4.30-5.90) m/uL Hgb (13.0-17.5) gm/dL Hct (39.0-53.0) % RDW (11.5-15.5) % Plt Count (150-450) k/uL Neutrophils # (1.3-7.7) k/uL ABG pCO2 (35-45) mmHg ABG HCO3 (21-25) mmol/L ABG O2 Saturation (94-97) % ABG Lactic Acid 2.6 H* (0.5-1.6) mmol/L Chloride (98-107) mmol/L Carbon Dioxide (22-30) mmol/L Glucose (74-99) mg/dL POC Glucose (mg/dL) 131 H 147 H (75-99) mg/dL Calcium (8.4-10.2) mg/dL Ionized Calcium Yuval (4.5-5.3) mg/dL Phosphorus (2.5-4.5) mg/dL Magnesium (1.6-2.3) mg/dL Albumin (3.5-5.0) g/dL 04/03/17 04/03/17 04/03/17 Range/Units 18:51 20:01 20:15 WBC (3.8-10.6) k/uL RBC (4.30-5.90) m/uL Hgb (13.0-17.5) gm/dL Hct (39.0-53.0) % RDW (11.5-15.5) % Plt Count (150-450) k/uL Neutrophils # (1.3-7.7) k/uL ABG pCO2 (35-45) mmHg ABG HCO3 (21-25) mmol/L ABG O2 Saturation (94-97) % ABG Lactic Acid 2.8 H* (0.5-1.6) mmol/L Chloride (98-107) mmol/L Carbon Dioxide (22-30) mmol/L Glucose (74-99) mg/dL POC Glucose (mg/dL) 138 H 133 H (75-99) mg/dL Calcium (8.4-10.2) mg/dL Ionized Calcium Yuval (4.5-5.3) mg/dL Phosphorus (2.5-4.5) mg/dL Magnesium (1.6-2.3) mg/dL Albumin (3.5-5.0) g/dL 04/03/17 04/03/17 04/04/17 Range/Units 21:59 23:07 00:07 WBC (3.8-10.6) k/uL RBC (4.30-5.90) m/uL Hgb (13.0-17.5) gm/dL Hct (39.0-53.0) % RDW (11.5-15.5) % Plt Count (150-450) k/uL Neutrophils # (1.3-7.7) k/uL ABG pCO2 (35-45) mmHg ABG HCO3 (21-25) mmol/L ABG O2 Saturation (94-97) % ABG Lactic Acid (0.5-1.6) mmol/L Chloride (98-107) mmol/L Carbon Dioxide (22-30) mmol/L Glucose (74-99) mg/dL POC Glucose (mg/dL) 117 H 134 H 139 H (75-99) mg/dL Calcium (8.4-10.2) mg/dL Ionized Calcium Yuval (4.5-5.3) mg/dL Phosphorus (2.5-4.5) mg/dL Magnesium (1.6-2.3) mg/dL Albumin (3.5-5.0) g/dL 04/04/17 04/04/17 04/04/17 Range/Units 01:06 02:17 04:30 WBC 35.3 H* (3.8-10.6) k/uL RBC 3.49 L (4.30-5.90) m/uL Hgb 10.0 L (13.0-17.5) gm/dL Hct 30.3 L (39.0-53.0) % RDW 15.8 H (11.5-15.5) % Plt Count 62 L (150-450) k/uL Neutrophils # 32.7 H (1.3-7.7) k/uL ABG pCO2 (35-45) mmHg ABG HCO3 (21-25) mmol/L ABG O2 Saturation (94-97) % ABG Lactic Acid (0.5-1.6) mmol/L Chloride (98-107) mmol/L Carbon Dioxide (22-30) mmol/L Glucose (74-99) mg/dL POC Glucose (mg/dL) 135 H 149 H (75-99) mg/dL Calcium (8.4-10.2) mg/dL Ionized Calcium Yuval (4.5-5.3) mg/dL Phosphorus (2.5-4.5) mg/dL Magnesium (1.6-2.3) mg/dL Albumin (3.5-5.0) g/dL 04/04/17 04/04/17 04/04/17 Range/Units 04:30 04:30 04:30 WBC (3.8-10.6) k/uL RBC (4.30-5.90) m/uL Hgb (13.0-17.5) gm/dL Hct (39.0-53.0) % RDW (11.5-15.5) % Plt Count (150-450) k/uL Neutrophils # (1.3-7.7) k/uL ABG pCO2 (35-45) mmHg ABG HCO3 (21-25) mmol/L ABG O2 Saturation (94-97) % ABG Lactic Acid 2.2 H* (0.5-1.6) mmol/L Chloride 111 H (98-107) mmol/L Carbon Dioxide 21 L (22-30) mmol/L Glucose 125 H (74-99) mg/dL POC Glucose (mg/dL) (75-99) mg/dL Calcium 5.4 L* (8.4-10.2) mg/dL Ionized Calcium Yuval 3.6 L (4.5-5.3) mg/dL Phosphorus 1.7 L (2.5-4.5) mg/dL Magnesium 1.3 L (1.6-2.3) mg/dL Albumin 1.8 L (3.5-5.0) g/dL 04/04/17 04/04/17 04/04/17 Range/Units 04:34 05:02 06:12 WBC (3.8-10.6) k/uL RBC (4.30-5.90) m/uL Hgb (13.0-17.5) gm/dL Hct (39.0-53.0) % RDW (11.5-15.5) % Plt Count (150-450) k/uL Neutrophils # (1.3-7.7) k/uL ABG pCO2 (35-45) mmHg ABG HCO3 (21-25) mmol/L ABG O2 Saturation (94-97) % ABG Lactic Acid (0.5-1.6) mmol/L Chloride (98-107) mmol/L Carbon Dioxide (22-30) mmol/L Glucose (74-99) mg/dL POC Glucose (mg/dL) 121 H 115 H 139 H (75-99) mg/dL Calcium (8.4-10.2) mg/dL Ionized Calcium Yuval (4.5-5.3) mg/dL Phosphorus (2.5-4.5) mg/dL Magnesium (1.6-2.3) mg/dL Albumin (3.5-5.0) g/dL 04/04/17 04/04/17 04/04/17 Range/Units 07:27 08:25 10:07 WBC (3.8-10.6) k/uL RBC (4.30-5.90) m/uL Hgb (13.0-17.5) gm/dL Hct (39.0-53.0) % RDW (11.5-15.5) % Plt Count (150-450) k/uL Neutrophils # (1.3-7.7) k/uL ABG pCO2 30 L (35-45) mmHg ABG HCO3 18 L (21-25) mmol/L ABG O2 Saturation 97.9 H (94-97) % ABG Lactic Acid (0.5-1.6) mmol/L Chloride (98-107) mmol/L Carbon Dioxide (22-30) mmol/L Glucose (74-99) mg/dL POC Glucose (mg/dL) 184 H 157 H (75-99) mg/dL Calcium (8.4-10.2) mg/dL Ionized Calcium Yuval (4.5-5.3) mg/dL Phosphorus (2.5-4.5) mg/dL Magnesium (1.6-2.3) mg/dL Albumin (3.5-5.0) g/dL Microbiology - Last 24 Hours (Table) 04/01/17 21:10 Blood Culture - Preliminary Blood No Growth after 48 hours 04/01/17 21:46 Blood Culture - Preliminary Blood No Growth after 48 hours 04/01/17 21:54 Blood Culture - Preliminary Blood No Growth after 48 hours 04/02/17 04:32 Urine Culture - Final Urine,Catheterized 03/31/17 19:45 Blood Culture Gram Stain - Final Blood Blood Culture - Final Enterobacter aerogenes Non Hemolytic Strep 04/01/17 16:30 Gram Stain - Final Sputum Sputum Culture - Final Assessment and Plan Assessment: Impression: 1 acute septic shock secondary to urinary tract infection, acute cystitis secondary to Enterobacter aerogenes and pseudomonas aeruginosa as noted in the urine. His blood cultures are positive for Enterobacter. 2 acute hypoxic respiratory failure secondary to above. 3 acute metabolic, lactic acidosis secondary to 1. 4 history of paraplegia and neurogenic bladder. 5 acute kidney injury secondary to sepsis and septic shock. 6 history of nephrolithiasis/bilateral. 7 history of multiple surgeries including skin graft for pressure sores, right ureteroscopy with lithotripsy in 2005 and external sphincterotomy 1990 and 1994. Plan: The patient was seen and evaluated by Dr. Pillai. We will check a serum cortisol level. He is initiated on a hydrocortisone drip at 12.5 mg per hour. We will attempt to wean down the vasopressin and norepinephrine. Continue with his other medications for now. Dr. Regan had a half a lengthy discussion with the patient's mother and brother today. We'll continue to monitor him closely here in the intensive care unit. We'll continue with daily interruption of sedation. We will begin attempting to wean the patient once the pressors are off. We will continue to follow and make further recommendations based on his clinical status. Critical care time 38 minutes. I, the cosigning physician, have performed a history and physical examination on the patient. Lung sounds lateral scattered rhonchi.. Maintaining good O2 saturations in the 90s on 35% FiO2. Continue intubation and mechanical ventilation.. I have discussed the assessment and plan of care with my nurse practitioner, Edita Billy. I attest the above documented note as dictated by her. Time with Patient: Greater than 30
[2017-04-04] MEDS: VANCOMYCIN 1,750 MG in SODIUM CHLORIDE 0.9% 250 ML IVPB SCH ×2 (12:16→20:05)
[2017-04-04 12:25] LABS: Glucose,Whole Blood 136 mg/dL (75-99)
[2017-04-04] MEDS: HYDROmorphone 1 MG/ML 1 ML SYRINGE IVP PRN (12:27)
[2017-04-04 13:17] LABS: Glucose,Whole Blood 127 mg/dL (75-99)
--- NOTE | 2017-04-04 14:48 | P.PN ---
Progress Note - Text Progress Note Date: 04/04/17 The patient remains intubated as he still requires pressors for support of his BP. He is alert and responds appropriately to questions. His renal function remains stable and his lactic actidosis is improved. He is on meropenem/ vancomycin. His urine remains grossly clear. He has some foot and toe swelling and possible early cellulitis which is most likely related to peripheral edema. Imp:Severe sepsis with hypotension from enterobacter bacteremia related to hemorrhagic cystitis. Plan: Continue current antibiotics and support of BP until peripheral effects of sepsis have improved.
[2017-04-04 15:09] LABS: Glucose,Whole Blood 142 mg/dL (75-99)
[2017-04-04 16:22] LABS: Glucose,Whole Blood 148 mg/dL (75-99)
[2017-04-04] MEDS ORDERED: ARTIFICIAL TEARS-HYPROMELLOSE DROPS 15 ML BTL BOTH EYES PRN (16:25)
[2017-04-04 19:00] LABS: Glucose,Whole Blood 135 mg/dL (75-99)
--- NOTE | 2017-04-04 19:15 | PN ---
PROGRESS NOTE DATE OF SERVICE: 04/04/2017 Patient remains in the intensive care unit and remains intubated. Pear Picker is following. The patient's cultures have been positive for enterobacter and non-hemolytic strep in blood. Patient remains on Merrem and vancomycin, still needing norepinephrine and vasopressin. PHYSICAL EXAMINATION: VITAL SIGNS: Temperature 98.2, pulse 90, respiration 23, blood pressure 78/51. Morbidly obese. On mechanical ventilation. HEENT: Atraumatic, normocephalic. Pupils equal and reactive to light. ET tube is in. LUNGS: Decreased breath sounds. No crackles or rhonchi. Heart is regular rate and rhythm without any murmurs or gallop rhythm. ABDOMEN: Soft, obese, nontender. Bowel sounds positive. EXTREMITIES: No edema, clubbing, cyanosis. Muscle wasting, both lower extremities. Patient has a history of paraplegia with some contractures. NEUROLOGICAL EXAMINATION: Unable to perform. LYMPHATICS: No lymphadenopathy. PSYCHIATRIC: Unable to perform. LABS: Chemical profile: Sodium 139, potassium 4.0, chloride 111, bicarb 21, BUN 16, creatinine 0.9, glucose 125. CBC: White blood count 35.3, hemoglobin 10, hematocrit 30, and platelet count of 62. ASSESSMENT: 1. Septic shock secondary to urinary tract infection, acute cystitis. The patient is on IV antibiotics. 2. Acute hypoxemic respiratory failure secondary to septic shock. The patient remains on vent. 3. Acute renal injury secondary to sepsis, clinically improved. Patient remains in ICU. Remains under student life coordinator's care. MMODL / IJN: [id number] /
--- NOTE | 2017-04-04 20:15 | PN ---
PROGRESS NOTE DATE OF SERVICE: 04/04/2017. REASON FOR FOLLOWUP: Gram-negative sepsis. INTERVAL HISTORY: The patient is afebrile, hemodynamically slight improvement, as his pressor is down to about 20 mcg of Levophed. The patient remained to be intubated on the vent. He remains to be awake and alert, did follow some commands and answer some questions. The patient shaking his head. Denies any headache or any abdominal pain. Has been tolerating his tube feeds. No significant diarrhea. On examination, blood pressure is 89/68 with a pulse of 83, temperature of 98. He is 95% on 45% FiO2. General description is a middle-aged male lying in bed in no distress. RESPIRATORY SYSTEM: Unlabored breathing. Clear to auscultation anteriorly. HEART: S1, S2. Regular rate and rhythm. ABDOMEN: Soft. No tenderness. No guarding, rigidity. LABS: Hemoglobin is 10, white count of 35.3. BUN of 16, creatinine 0.90. Blood culture with Enterobacter aeruginosa and alpha hemolytic strep. The Enterobacter did show significant resistant pathogen. DIAGNOSTIC IMPRESSION AND PLAN: Patient with gram-negative sepsis in a patient showing response to meropenem; hence, that will be continued. Vancomycin can be discontinued, as this type will be covered with meropenem. Continue with supportive care. MMODL / IJN: [id number] / LUKASZ
[2017-04-04 20:26] LABS: Glucose,Whole Blood 138 mg/dL (75-99)
[2017-04-04 22:14] LABS: Glucose,Whole Blood 158 mg/dL (75-99)
[2017-04-05 00:10] LABS: Glucose,Whole Blood 139 mg/dL (75-99)
[2017-04-05] MEDS: IPRATROPIUM-ALBUTEROL 3 ML NEB INHALATION SCH ×7 (00:52→23:40)
[2017-04-05] MEDS: PROPOFOL 1,000 MG in EMPTY BAG 1 BAG IV SCH ×2 (01:15→15:14)
[2017-04-05 02:05] LABS: Glucose,Whole Blood 164 mg/dL (75-99)
[2017-04-05] MEDS: SODIUM CHLORIDE 0.45% 1,000 ML IV SCH ×5 (02:50→21:26)
[2017-04-05] MEDS: MEROPENEM 1 GM in SODIUM CHLORIDE 0.9% 100 ML IVPB SCH ×3 (04:00→20:25)
[2017-04-05 04:01] LABS: Glucose,Whole Blood 167 mg/dL (75-99)
[2017-04-05 04:52] LABS: ABG Base Excess -4.8 mmol/L; ABG HCO3 20 mmol/L (21-25); ABG PCO2 36 mmHg (35-45); ABG PH 7.36 (7.35-7.45); ABG PO2 113 mmHg (83-108); ABG TCO2 21 mmol/L (19-24)
[2017-04-05 04:59] LABS: Anion Gap 6 mmol/L; Blood Urea Nitrogen 20 mg/dL (9-20); Carbon Dioxide 21 mmol/L (22-30); Chloride 111 mmol/L (98-107); Glucose 163 mg/dL (74-99); Magnesium 1.5 mg/dL (1.6-2.3); Phosphorus 2.2 mg/dL (2.5-4.5); Potassium 3.3 mmol/L (3.5-5.1); Sodium 138 mmol/L (137-145)
[2017-04-05 05:02] LABS: Glucose,Whole Blood 143 mg/dL (75-99)
[2017-04-05 05:08] LABS: Calcium 5.6 mg/dL (8.4-10.2)
[2017-04-05 05:15] LABS: Basophils % (A) 0 %; Eosinophils % (A) 0 %; HCT 31.8 % (39.0-53.0); HGB 10.5 gm/dL (13.0-17.5); Lymphocytes # (A) 1.3 k/uL (1.0-4.8); Lymphocytes % (A) 7 %; MCH 29.2 pg (25.0-35.0); MCHC 32.9 g/dL (31.0-37.0); MCV 88.8 fL (80.0-100.0); Mean Platelet Volume 9.6; Monocytes # (A) 0.5 k/uL (0-1.0); Monocytes % (A) 3 %; Neutrophils # (A) 15.5 k/uL (1.3-7.7); Neutrophils % (A) 88 %; RBC 3.58 m/uL (4.30-5.90); RDW 15.9 % (11.5-15.5); WBC 17.6 k/uL (3.8-10.6)
[2017-04-05 05:17] LABS: Platelet Count 52 k/uL (150-450)
[2017-04-05 05:47] LABS: Glucose,Whole Blood 153 mg/dL (75-99)
[2017-04-05] MEDS: SODIUM CHLORIDE 0.9% 99 ML with VASOPRESSIN 20 UNIT IV SCH ×6 (05:49→12:12)
[2017-04-05] MEDS: NOREPINEPHRIN 16 MG-0.9%NS PMX 16 MG/250 ML ML IV SCH ×2 (05:52→09:24)
[2017-04-05] MEDS: POTASSIUM CHLORIDE ORAL LIQUID 40 MEQ/30 ML CUP NG-TUBE SCH ×4 (05:53→23:40)
[2017-04-05] MEDS: SODIUM CHLORIDE 0.9% 250 ML with HYDROCORTISONE SUCCINATE 250 MG IV SCH ×2 (05:55)
[2017-04-05] MEDS: MAGNESIUM SULFATE-D5W PMX 1 GM in DEXTROSE/WATER 1 100ML.BAG IVPB SCH ×2 (06:40→08:12)
[2017-04-05] MEDS ORDERED: CALCIUM GLUCONATE 2,000 MG in SODIUM CHLORIDE 0.9% 100 ML IVPB ONE (07:00)
[2017-04-05 07:03] LABS: Glucose,Whole Blood 132 mg/dL (75-99)
[2017-04-05] MEDS ORDERED: SODIUM PHOSPHATE 10 MMOL in SODIUM CHLORIDE 0.9% 100 ML IVPB ONE (07:30)
--- NOTE | 2017-04-05 07:47 | XR ---
EXAMINATION TYPE: XR chest 1V portable DATE OF EXAM: 04/05/2017 COMPARISON: Prior chest x-ray 04/04/2017 HISTORY: Intubated TECHNIQUE: Single frontal view of the chest is obtained. FINDINGS: Endotracheal tube and NG tube are overlying appropriate positions. Overlying cardiac leads are noted. Retrocardiac density persists. The heart is enlarged. Central vascularity and interstitiu m are mildly prominent. No evident pneumothorax. There is overlying artifact. IMPRESSION: There may be a component of volume overload, pulmonary venous hypertension and interstit ial edema. Correlate for left lower lobe atelectasis versus pneumonia and associated effusion.
[2017-04-05 08:04] LABS: Glucose,Whole Blood 149 mg/dL (75-99)
[2017-04-05] MEDS: CHLORHEXIDINE GLUCONATE 15 ML CUP MUCOUS MEM SCH ×2 (08:12→21:26)
[2017-04-05] MEDS: PANTOPRAZOLE 40 MG/10 ML VIAL IV SCH (08:12)
[2017-04-05] MEDS: BISACODYL 10 MG SUPP RECTAL SCH (09:37)
[2017-04-05] MEDS: levETIRAcetam IV 1,000 MG in SALINE 1 100ML.BAG IVPB SCH ×2 (10:20→21:26)
[2017-04-05 10:26] LABS: Glucose,Whole Blood 127 mg/dL (75-99)
[2017-04-05 10:38] LABS: ABG Base Excess -5.3 mmol/L; ABG HCO3 20 mmol/L (21-25); ABG PCO2 42 mmHg (35-45); ABG PO2 90 mmHg (83-108); ABG TCO2 21 mmol/L (19-24)
--- NOTE | 2017-04-05 10:43 | P.PN ---
Subjective Progress Note Date: 04/05/17 Principal diagnosis: Acute septic shock secondary to acute urinary tract infection, cystitis. This is a 51-year-old white male, paraplegic, this is related to previous hockey accident and cervical spine injury at age 18. 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 Patient had external sphincterotomy in 1990 and 1994, and has been managed with an exdwelling catheter. In the last 2 weeks, the patient has been noticing dark color urine with some odor. On 03/28 patient was noticing some chills, and on the morning of 03/29 he developed gross hematuria but he was able to void. Later on the patient was passing clots, and he was unable to void. He developed significant suprapubic discomfort, and presented to the ER for evaluation. Upon evaluation the patient was noted to have slight leukocytosis, and renal failure with a BUN of [address] of the abdomen and pelvis showed bilateral nonobstructive renal calculi, and bilateral atrophy of the renal parenchyma. His bladder was noted to be distended, and question the possibility of bladder mass. Patient was started on Levaquin for treatment of urinary tract infection, and he was seen by urology on consultation were in the patient had cystoscopy, and he was found to have hemorrhagic cystitis. The procedure was done on 03/31/2017. Yesterday, in p.m., patient developed an episode of unresponsiveness, patient was hypotensive, nursing staff felt he may have had a seizure, hence he was treated with Keppra, patient was unable to protect his airways, and I was notified about the patient at that time. Patient was given fluid boluses for hypotension, started on levo fed, and later on vasopressin was started. Patient was sent for a CT of the brain which came back negative for CVA. And he was later transferred back to the ICU were and we determined that the patient has a clear cut picture of septic shock from his urinary tract infection which turned out to be secondary to Enterobacter species. Patient was already on Levaquin, this was discontinued and he was placed on Zosyn and Merrem. Overnight, the patient remained relatively hypotensive in spite of significant high doses of norepinephrine, and vasopressin was later started. Presently the patient is on 75 mics of norepinephrine, and he is on 0.05 units of vasopressin. Blood pressure is marginal, many fluid boluses were given, and I believe he received over 10 L of fluids. His urine output has been excellent and he seems to have a polyuria picture. Renal functioning seems to be significantly improved in the last 24 hours. Lactic acid remains high this morning at 5.1. All his electrolytes were abnormal including low potassium which was corrected, calcium was also corrected, and his creatinine improved from 2.36 down to 1.50. Urine cultures were noted, but no blood cultures have been noted so far. Today I saw the patient in the ICU, remains on mechanical ventilation, his ventilator settings are tidal volume of 500, assist control rate of 20, FiO2 is down to 50%, and PEEP is at 5. ABG showed a pO2 of 136 pCO2 of 31 pH of 7.23, hence the patient was given more bicarb, and kept on the bicarb drip with 3 A of bicarb in 1 L of D5W running at 1 25 mL per hour. In spite of all of this, the patient is on small dose of propofol, he is arousable, and follows simple instructions. Seems to be very appropriate. Neurology-yanez, the patient was given Keppra, and EEG was ordered, it is not certain whether the patient truly had a seizure or not. Patient was reevaluated today on 04/02/2017, remains on mechanical ventilation, same vent setting, however his FiO2 is decreased down to 45%, tidal volume remains at 500, assist control rate is at 20, and PEEP is at 5. ABG this morning showed a pO2 of 103 pCO2 of 33 pH of 7.40. Hence, down significantly on the sodium bicarb drip, The patient on IV fluids, patient still requiring significant fluid boluses to maintain an adequate mean arterial blood pressure. His urine output has been excellent, he is putting out almost 300 mL per hour. Patient continues to have leukocytosis with WBC count of 36.3 hemoglobin is 11.5. Renal profile is basically almost back to normal. And his acute kidney injury has resolved. Sodium is elevated, at 147, hence I changed his IV fluid 0.45 instead of 0.9. His electrolytes were noted to be abnormal, and these were all being corrected as per protocol. Chest x-ray continues to show retrocardiac consolidation, and small left pleural effusion. I was able to review an old x-ray from 2011, apparently had some chronic scarring in the left lower lobe, and some atelectasis in the left retrocardiac area, but not as pronounced as noted on this present x-ray from this admission. Patient remains on norepinephrine at 75 g, he is also on vasopressin at 0.05 units. Reevaluated today on 04/03/2017, patient remains on mechanical ventilation, same ventilator settings as noted above with FiO2 of 45% tidal volume of 500 assist control rate of 20 and PEEP of 5. ABG showed a pO2 of 79 pCO2 of 32 pH of 7.42 hence the sodium bicarb drip was discontinued. Lactic acid is responding but slowly and today's lactic acid is 3.9. More fluid boluses were given today, continues to have significant urine output, and patient had a positive balance of 2 L in the last 24 hours. Albumin will be given today, his potassium and calcium are being corrected as per protocol. Renal functioning remains normal. However WBC count is up to 42.4, hemoglobin is 10.3, platelets are down to 88,000, hence I have discontinued his Lovenox. One blood culture from the showed Enterobacter, another blood culture showed Enterobacter and nonhemolytic strep. The nonhemolytic strep is probably a contaminant. Patient was on vancomycin, doubt if we need to restart vancomycin at this point , patient is being followed by infectious disease, remains presently on Merrem and Zosyn to cover Enterobacter and Pseudomonas. Blood pressure-yanez, the patient remains on 45 mics of norepinephrine, and 0.05 units of vasopressin. We are in the process of titrating the norepinephrine down since the blood pressure seems to be holding better today than it was in the last couple of days. All meds were reviewed, patient also remains on propofol, relatively small dose to keep him slightly sedated, but the patient is arousable, and follows instructions. Chest x-ray continues to show left lower lobe retrocardiac opacity which is I believe chronic. Nutrition-yanez the patient seems to be tolerating tube feeding well via nasogastric tube. The patient is seen again today 04/04/2017 in follow-up in the intensive care unit. He remains intubated on the mechanical ventilator with settings of assist control mode at a rate of 20, tidal volume 500, FiO2 45%, PEEP of 5. Morning blood gases reveal pO2 of 100, pCO2 30, pH 7.41 with a mixed acid-base abnormality including respiratory alkalosis and metabolic acidosis. The patient 's cultures were positive for Enterobacter aerogenes and pseudomonas aeruginosa in the urine, Enterobacter aerogenes nonhemolytic strep in the blood. He remains on meropenem and vancomycin. He is also on norepinephrine at 25 mcg/m, vasopressin at 0.05 units per minute, propofol at 11 mcg/kg/m, insulin at 7.5 units per hour. He is being nourished with Vital HP at 57 mL per hour which is goal. He has a 0.45 normal saline at 200 mL's per hour. He is alert and oriented and nods his head appropriately. The patient is seen again today 04/05/2017 in follow-up in the intensive care unit. He remains intubated and on mechanical ventilator. Current settings assist-control mode of rate of 20, tidal volume 500, FiO2 40% and a PEEP of 5. Morning arterial blood gases revealed a pO2 of 113 on 45% FiO2, pCO2 35, pH 7.36. He remains alert and oriented following simple commands by nodding his head yes and no appropriately. He remains on norepinephrine at 9 mcg/m, vasopressin at 0.05 units per minute, propofol at 10 mcg/kg/m, hydrocortisone at 12.5 mg per hour, insulin at 0.5 units per hour. He has 0.45 normal saline at 200 MLS per hour. He is being nourished with Vital HP at 57 mL per hour which is goal. He is receiving flushes of 30 mL every 4 hours. He remains on meropenem. Objective - Vital Signs Vital signs: Vital Signs Temp 97.7 F 04/05/17 08:00 Pulse 81 04/05/17 10:00 Resp 27 H 04/05/17 10:00 BP 81/55 04/05/17 09:00 Pulse Ox 94 L 04/05/17 10:00 Intake & Output 04/04/17 04/05/17 04/05/17 18:59 06:59 18:59 Intake Total 5128.378 3625.285 1456.881 Output Total 1045 1580 380 Balance 4083.378 2045.285 1076.881 Weight 122.2 kg 131 kg Intake: IV 9771 8177 5099 Albumin Human 25% 50 ml 50 In Empty Bag 1 bag @ 100 mls/hr IVPB ONCE ONE Rx#: [id number] Calcium Gluconate 1,000 100 mg In Sodium Chloride 0.9 % 100 ml @ 100 mls/hr IVPB ONCE ONE Rx#: [id number] Calcium Gluconate 2,000 100 mg In Sodium Chloride 0.9 % 100 ml @ 100 mls/hr IVPB ONCE ONE Rx#: [id number] Magnesium Sulfate-D5w Pmx 100 100 100 1 gm In Dextrose/Water 1 100ml.bag @ 100 mls/hr IVPB Q1H [facility] Rx#: [id number] Meropenem 1 gm In Sodium 100 200 Chloride 0.9% 100 ml @ 200 mls/hr IVPB Q8H [facility] Rx#:[id number] Piperacillin-Tazobactam 3 50 150 .375 gm In Dextrose/Water 1 50ml.bag @ 12.5 mls/hr IVPB Q8HR [facility] Rx#: [id number] Pressure Bag 39 36 9 Sodium Chloride 0.45% 1, 2600 1900 600 000 ml @ 200 mls/hr IV . Q5H [facility] Rx#:[id number] Sodium Phosphate 10 mmol 100 In Sodium Chloride 0.9% 100 ml @ 50 mls/hr IVPB ONCE ONE Rx#:[id number] Sodium Phosphate 10 mmol 500 In Sodium Chloride 0.9% 250 ml @ 125 mls/hr IVPB Q2H [facility] Rx#:[id number] Vancomycin 1,750 mg In 250 250 250 Sodium Chloride 0.9% 250 ml @ 125 mls/hr IVPB Q12HR [facility] Rx#:[id number] levETIRAcetam IV 1,000 mg 100 100 In Saline 1 100ml.bag @ 400 mls/hr IVPB Q12HR [facility] Rx#:[id number] Intake, IV Titration 372.378 259.285 96.881 Amount Insulin Regular 100 unit 36.120 13.138 5.647 In Sodium Chloride 0.9% 100 ml @ Per Protocol IV .Q0M [facility] Rx#:[id number] Norepinephrin 16 mg-0.9% 253.058 146.147 38.221 Ns Pmx 16 mg In 250 ml @ Titrate IV .Q0M [facility] Rx#: [id number] Propofol 1,000 mg In 83.2 100 53.013 Empty Bag 1 bag @ Titrate IV .Q0M [facility] Rx#: [id number] Oral 57 Tube Feeding 777 513 171 Other 90 60 30 Output: Urine 1045 1580 380 Other: Voiding Method Indwelling Catheter Indwelling Catheter Indwelling Catheter ABP, PAP, CO, CI - Last Documented Arterial Blood Pressure 81/56 - Exam Physical Exam: Revealed a 51-year-old white male, morbidly obese, on mechanical ventilation,,alert, no distress at present. HEENT: Short obese neck. Neck is supple. No neck masses.No thyromegaly.No JVD. PERRLA, EOMI, moist mucous membranes. Endotracheal tube is intact. Chest: Diminished breath sounds at the bases, especially at the left base. no crackles nor rhonchi no wheezes. Cardiac Exam: Normal S1 and S2, no S3 gallop, no murmur. Abdomen: Obese, Soft, nontender, no megaly, no rebound, no guarding, normal bowel sounds. Extremities: No clubbing, no edema, no cyanosis. Significant muscle atrophy and wasting of muscles noted in lower extremities, patient is paraplegic. Flexion contractures noted bilaterally. Neurological Exam: No focal neurologic deficit. Except for paraplegia from the waist down. Lymphatics: No lymphadenopathy. Psychiatric: Normal mood, affect, and cannot fully assess mental status exam. - Labs CBC & Chem 7: 04/05/17 04:00 04/05/17 04:00 Labs: Abnormal Lab Results - Last 24 Hours (Table) 04/04/17 04/04/17 04/04/17 Range/Units 12:23 13:14 15:07 WBC (3.8-10.6) k/uL RBC (4.30-5.90) m/uL Hgb (13.0-17.5) gm/dL Hct (39.0-53.0) % RDW (11.5-15.5) % Plt Count (150-450) k/uL Neutrophils # (1.3-7.7) k/uL ABG pO2 (83-108) mmHg ABG HCO3 (21-25) mmol/L ABG O2 Saturation (94-97) % Potassium (3.5-5.1) mmol/L Chloride (98-107) mmol/L Carbon Dioxide (22-30) mmol/L Glucose (74-99) mg/dL POC Glucose (mg/dL) 136 H 127 H 142 H (75-99) mg/dL Calcium (8.4-10.2) mg/dL Ionized Calcium Yuval (4.5-5.3) mg/dL Phosphorus (2.5-4.5) mg/dL Magnesium (1.6-2.3) mg/dL 04/04/17 04/04/17 04/04/17 Range/Units 16:20 18:57 20:25 WBC (3.8-10.6) k/uL RBC (4.30-5.90) m/uL Hgb (13.0-17.5) gm/dL Hct (39.0-53.0) % RDW (11.5-15.5) % Plt Count (150-450) k/uL Neutrophils # (1.3-7.7) k/uL ABG pO2 (83-108) mmHg ABG HCO3 (21-25) mmol/L ABG O2 Saturation (94-97) % Potassium (3.5-5.1) mmol/L Chloride (98-107) mmol/L Carbon Dioxide (22-30) mmol/L Glucose (74-99) mg/dL POC Glucose (mg/dL) 148 H 135 H 138 H (75-99) mg/dL Calcium (8.4-10.2) mg/dL Ionized Calcium Yuval (4.5-5.3) mg/dL Phosphorus (2.5-4.5) mg/dL Magnesium (1.6-2.3) mg/dL 04/04/17 04/05/17 04/05/17 Range/Units 22:12 00:07 02:03 WBC (3.8-10.6) k/uL RBC (4.30-5.90) m/uL Hgb (13.0-17.5) gm/dL Hct (39.0-53.0) % RDW (11.5-15.5) % Plt Count (150-450) k/uL Neutrophils # (1.3-7.7) k/uL ABG pO2 (83-108) mmHg ABG HCO3 (21-25) mmol/L ABG O2 Saturation (94-97) % Potassium (3.5-5.1) mmol/L Chloride (98-107) mmol/L Carbon Dioxide (22-30) mmol/L Glucose (74-99) mg/dL POC Glucose (mg/dL) 158 H 139 H 164 H (75-99) mg/dL Calcium (8.4-10.2) mg/dL Ionized Calcium Yuval (4.5-5.3) mg/dL Phosphorus (2.5-4.5) mg/dL Magnesium (1.6-2.3) mg/dL 04/05/17 04/05/17 04/05/17 Range/Units 03:59 04:00 04:00 WBC 17.6 H (3.8-10.6) k/uL RBC 3.58 L (4.30-5.90) m/uL Hgb 10.5 L (13.0-17.5) gm/dL Hct 31.8 L (39.0-53.0) % RDW 15.9 H (11.5-15.5) % Plt Count 52 L (150-450) k/uL Neutrophils # 15.5 H (1.3-7.7) k/uL ABG pO2 (83-108) mmHg ABG HCO3 (21-25) mmol/L ABG O2 Saturation (94-97) % Potassium 3.3 L (3.5-5.1) mmol/L Chloride 111 H (98-107) mmol/L Carbon Dioxide 21 L (22-30) mmol/L Glucose 163 H (74-99) mg/dL POC Glucose (mg/dL) 167 H (75-99) mg/dL Calcium 5.6 L* (8.4-10.2) mg/dL Ionized Calcium Yuval (4.5-5.3) mg/dL Phosphorus 2.2 L (2.5-4.5) mg/dL Magnesium 1.5 L (1.6-2.3) mg/dL 04/05/17 04/05/17 04/05/17 Range/Units 04:45 04:59 05:44 WBC (3.8-10.6) k/uL RBC (4.30-5.90) m/uL Hgb (13.0-17.5) gm/dL Hct (39.0-53.0) % RDW (11.5-15.5) % Plt Count (150-450) k/uL Neutrophils # (1.3-7.7) k/uL ABG pO2 113 H (83-108) mmHg ABG HCO3 20 L (21-25) mmol/L ABG O2 Saturation 98.0 H (94-97) % Potassium (3.5-5.1) mmol/L Chloride (98-107) mmol/L Carbon Dioxide (22-30) mmol/L Glucose (74-99) mg/dL POC Glucose (mg/dL) 143 H 153 H (75-99) mg/dL Calcium (8.4-10.2) mg/dL Ionized Calcium Yuval (4.5-5.3) mg/dL Phosphorus (2.5-4.5) mg/dL Magnesium (1.6-2.3) mg/dL 04/05/17 04/05/17 04/05/17 Range/Units 05:45 06:59 08:01 WBC (3.8-10.6) k/uL RBC (4.30-5.90) m/uL Hgb (13.0-17.5) gm/dL Hct (39.0-53.0) % RDW (11.5-15.5) % Plt Count (150-450) k/uL Neutrophils # (1.3-7.7) k/uL ABG pO2 (83-108) mmHg ABG HCO3 (21-25) mmol/L ABG O2 Saturation (94-97) % Potassium (3.5-5.1) mmol/L Chloride (98-107) mmol/L Carbon Dioxide (22-30) mmol/L Glucose (74-99) mg/dL POC Glucose (mg/dL) 132 H 149 H (75-99) mg/dL Calcium (8.4-10.2) mg/dL Ionized Calcium Yuval 3.5 L* (4.5-5.3) mg/dL Phosphorus (2.5-4.5) mg/dL Magnesium (1.6-2.3) mg/dL 04/05/17 Range/Units 10:23 WBC (3.8-10.6) k/uL RBC (4.30-5.90) m/uL Hgb (13.0-17.5) gm/dL Hct (39.0-53.0) % RDW (11.5-15.5) % Plt Count (150-450) k/uL Neutrophils # (1.3-7.7) k/uL ABG pO2 (83-108) mmHg ABG HCO3 (21-25) mmol/L ABG O2 Saturation (94-97) % Potassium (3.5-5.1) mmol/L Chloride (98-107) mmol/L Carbon Dioxide (22-30) mmol/L Glucose (74-99) mg/dL POC Glucose (mg/dL) 127 H (75-99) mg/dL Calcium (8.4-10.2) mg/dL Ionized Calcium Yuval (4.5-5.3) mg/dL Phosphorus (2.5-4.5) mg/dL Magnesium (1.6-2.3) mg/dL Microbiology - Last 24 Hours (Table) 04/01/17 21:10 Blood Culture - Preliminary Blood No Growth after 72 hours 04/01/17 21:46 Blood Culture - Preliminary Blood No Growth after 72 hours 04/01/17 21:54 Blood Culture - Preliminary Blood No Growth after 72 hours Assessment and Plan Assessment: Impression: 1 acute septic shock secondary to urinary tract infection, acute cystitis secondary to Enterobacter aerogenes and pseudomonas aeruginosa as noted in the urine. His blood cultures are positive for Enterobacter. 2 acute hypoxic respiratory failure secondary to above. 3 acute metabolic, lactic acidosis secondary to 1. 4 history of paraplegia and neurogenic bladder. 5 acute kidney injury secondary to sepsis and septic shock. 6 history of nephrolithiasis/bilateral. 7 history of multiple surgeries including skin graft for pressure sores, right ureteroscopy with lithotripsy in 2005 and external sphincterotomy 1990 and 1994. Plan: The patient was seen and evaluated by Dr. Pillai. We will conitnue to attempt to wean down the vasopressin and norepinephrine. Continue with his other medications for now. Antibiotics per infectious disease. Remains on meropenem. Vancomycin was discontinued. We'll continue to monitor him closely here in the intensive care unit. We'll continue with daily interruption of sedation. He was given a weaning trial of pressure support of 5 and a CPAP of 5 today. After approximately a half hour he had an RSBI of 88, vital cap 500, NIF -26, tidal volumes only in the 300s, respiratory rate 26-31, minute ventilation 7.46. He remained comfortable however somewhat tachypneic. He does have a positive leak test. He did start complaining of worsening shortness of breath along with the tachypnea and was placed back on the original vent settings for now. We may give him another trial later this afternoon. If not tomorrow morning for sure. We will continue to follow and make further recommendations based on his clinical status. Critical care time 35 minutes. I, the cosigning physician, have performed a history and physical examination on the patient. Lung sounds lateral scattered rhonchi.. Maintaining good O2 saturations in the 90s on 40% FiO2. Continue intubation and mechanical ventilation.. I have discussed the assessment and plan of care with my nurse practitioner, Edita Billy. I attest the above documented note as dictated by her. Time with Patient: Greater than 30
--- NOTE | 2017-04-05 10:44 | P.PN ---
Subjective Progress Note Date: 04/05/17 The patient is in the hospital with a urinary tract infection with sepsis requiring pressors and intubation. He is in the intensive care unit. 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 He is slowly improving. The levels a pressors are decreasing. His vital signs are stable. We'll continue to follow the patient. Objective - Vital Signs Vital signs: Vital Signs Temp 97.7 F 04/05/17 08:00 Pulse 81 04/05/17 10:00 Resp 27 H 04/05/17 10:00 BP 81/55 04/05/17 09:00 Pulse Ox 94 L 04/05/17 10:00 Intake & Output 04/04/17 04/05/17 04/05/17 18:59 06:59 18:59 Intake Total 5128.378 3625.285 1465.256 Output Total 1045 1580 380 Balance 4083.378 2045.285 1085.256 Weight 122.2 kg 131 kg Intake: IV 3889 2736 1159 Albumin Human 25% 50 ml 50 In Empty Bag 1 bag @ 100 mls/hr IVPB ONCE ONE Rx#: [id number] Calcium Gluconate 1,000 100 mg In Sodium Chloride 0.9 % 100 ml @ 100 mls/hr IVPB ONCE ONE Rx#: [id number] Calcium Gluconate 2,000 100 mg In Sodium Chloride 0.9 % 100 ml @ 100 mls/hr IVPB ONCE ONE Rx#: [id number] Magnesium Sulfate-D5w Pmx 100 100 100 1 gm In Dextrose/Water 1 100ml.bag @ 100 mls/hr IVPB Q1H [facility] Rx#: [id number] Meropenem 1 gm In Sodium 100 200 Chloride 0.9% 100 ml @ 200 mls/hr IVPB Q8H [facility] Rx#:[id number] Piperacillin-Tazobactam 3 50 150 .375 gm In Dextrose/Water 1 50ml.bag @ 12.5 mls/hr IVPB Q8HR [facility] Rx#: [id number] Pressure Bag 39 36 9 Sodium Chloride 0.45% 1, 2600 1900 600 000 ml @ 200 mls/hr IV . Q5H [facility] Rx#:[id number] Sodium Phosphate 10 mmol 100 In Sodium Chloride 0.9% 100 ml @ 50 mls/hr IVPB ONCE ONE Rx#:[id number] Sodium Phosphate 10 mmol 500 In Sodium Chloride 0.9% 250 ml @ 125 mls/hr IVPB Q2H [facility] Rx#:[id number] Vancomycin 1,750 mg In 250 250 250 Sodium Chloride 0.9% 250 ml @ 125 mls/hr IVPB Q12HR [facility] Rx#:[id number] levETIRAcetam IV 1,000 mg 100 100 In Saline 1 100ml.bag @ 400 mls/hr IVPB Q12HR [facility] Rx#:[id number] Intake, IV Titration 372.378 259.285 105.256 Amount Insulin Regular 100 unit 36.120 13.138 5.647 In Sodium Chloride 0.9% 100 ml @ Per Protocol IV .Q0M [facility] Rx#:[id number] Norepinephrin 16 mg-0.9% 253.058 146.147 46.596 Ns Pmx 16 mg In 250 ml @ Titrate IV .Q0M [facility] Rx#: [id number] Propofol 1,000 mg In 83.2 100 53.013 Empty Bag 1 bag @ Titrate IV .Q0M [facility] Rx#: [id number] Oral 57 Tube Feeding 777 513 171 Other 90 60 30 Output: Urine 1045 1580 380 Other: Voiding Method Indwelling Catheter Indwelling Catheter Indwelling Catheter ABP, PAP, CO, CI - Last Documented Arterial Blood Pressure 81/56 - Labs CBC & Chem 7: 04/05/17 04:00 04/05/17 04:00 Labs: Abnormal Lab Results - Last 24 Hours (Table) 04/04/17 04/04/17 04/04/17 Range/Units 12:23 13:14 15:07 WBC (3.8-10.6) k/uL RBC (4.30-5.90) m/uL Hgb (13.0-17.5) gm/dL Hct (39.0-53.0) % RDW (11.5-15.5) % Plt Count (150-450) k/uL Neutrophils # (1.3-7.7) k/uL ABG pH (7.35-7.45) ABG pO2 (83-108) mmHg ABG HCO3 (21-25) mmol/L ABG O2 Saturation (94-97) % Potassium (3.5-5.1) mmol/L Chloride (98-107) mmol/L Carbon Dioxide (22-30) mmol/L Glucose (74-99) mg/dL POC Glucose (mg/dL) 136 H 127 H 142 H (75-99) mg/dL Calcium (8.4-10.2) mg/dL Ionized Calcium Yuval (4.5-5.3) mg/dL Phosphorus (2.5-4.5) mg/dL Magnesium (1.6-2.3) mg/dL 04/04/17 04/04/17 04/04/17 Range/Units 16:20 18:57 20:25 WBC (3.8-10.6) k/uL RBC (4.30-5.90) m/uL Hgb (13.0-17.5) gm/dL Hct (39.0-53.0) % RDW (11.5-15.5) % Plt Count (150-450) k/uL Neutrophils # (1.3-7.7) k/uL ABG pH (7.35-7.45) ABG pO2 (83-108) mmHg ABG HCO3 (21-25) mmol/L ABG O2 Saturation (94-97) % Potassium (3.5-5.1) mmol/L Chloride (98-107) mmol/L Carbon Dioxide (22-30) mmol/L Glucose (74-99) mg/dL POC Glucose (mg/dL) 148 H 135 H 138 H (75-99) mg/dL Calcium (8.4-10.2) mg/dL Ionized Calcium Yuval (4.5-5.3) mg/dL Phosphorus (2.5-4.5) mg/dL Magnesium (1.6-2.3) mg/dL 04/04/17 04/05/17 04/05/17 Range/Units 22:12 00:07 02:03 WBC (3.8-10.6) k/uL RBC (4.30-5.90) m/uL Hgb (13.0-17.5) gm/dL Hct (39.0-53.0) % RDW (11.5-15.5) % Plt Count (150-450) k/uL Neutrophils # (1.3-7.7) k/uL ABG pH (7.35-7.45) ABG pO2 (83-108) mmHg ABG HCO3 (21-25) mmol/L ABG O2 Saturation (94-97) % Potassium (3.5-5.1) mmol/L Chloride (98-107) mmol/L Carbon Dioxide (22-30) mmol/L Glucose (74-99) mg/dL POC Glucose (mg/dL) 158 H 139 H 164 H (75-99) mg/dL Calcium (8.4-10.2) mg/dL Ionized Calcium Yuval (4.5-5.3) mg/dL Phosphorus (2.5-4.5) mg/dL Magnesium (1.6-2.3) mg/dL 04/05/17 04/05/17 04/05/17 Range/Units 03:59 04:00 04:00 WBC 17.6 H (3.8-10.6) k/uL RBC 3.58 L (4.30-5.90) m/uL Hgb 10.5 L (13.0-17.5) gm/dL Hct 31.8 L (39.0-53.0) % RDW 15.9 H (11.5-15.5) % Plt Count 52 L (150-450) k/uL Neutrophils # 15.5 H (1.3-7.7) k/uL ABG pH (7.35-7.45) ABG pO2 (83-108) mmHg ABG HCO3 (21-25) mmol/L ABG O2 Saturation (94-97) % Potassium 3.3 L (3.5-5.1) mmol/L Chloride 111 H (98-107) mmol/L Carbon Dioxide 21 L (22-30) mmol/L Glucose 163 H (74-99) mg/dL POC Glucose (mg/dL) 167 H (75-99) mg/dL Calcium 5.6 L* (8.4-10.2) mg/dL Ionized Calcium Yuval (4.5-5.3) mg/dL Phosphorus 2.2 L (2.5-4.5) mg/dL Magnesium 1.5 L (1.6-2.3) mg/dL 04/05/17 04/05/17 04/05/17 Range/Units 04:45 04:59 05:44 WBC (3.8-10.6) k/uL RBC (4.30-5.90) m/uL Hgb (13.0-17.5) gm/dL Hct (39.0-53.0) % RDW (11.5-15.5) % Plt Count (150-450) k/uL Neutrophils # (1.3-7.7) k/uL ABG pH (7.35-7.45) ABG pO2 113 H (83-108) mmHg ABG HCO3 20 L (21-25) mmol/L ABG O2 Saturation 98.0 H (94-97) % Potassium (3.5-5.1) mmol/L Chloride (98-107) mmol/L Carbon Dioxide (22-30) mmol/L Glucose (74-99) mg/dL POC Glucose (mg/dL) 143 H 153 H (75-99) mg/dL Calcium (8.4-10.2) mg/dL Ionized Calcium Yuval (4.5-5.3) mg/dL Phosphorus (2.5-4.5) mg/dL Magnesium (1.6-2.3) mg/dL 04/05/17 04/05/17 04/05/17 Range/Units 05:45 06:59 08:01 WBC (3.8-10.6) k/uL RBC (4.30-5.90) m/uL Hgb (13.0-17.5) gm/dL Hct (39.0-53.0) % RDW (11.5-15.5) % Plt Count (150-450) k/uL Neutrophils # (1.3-7.7) k/uL ABG pH (7.35-7.45) ABG pO2 (83-108) mmHg ABG HCO3 (21-25) mmol/L ABG O2 Saturation (94-97) % Potassium (3.5-5.1) mmol/L Chloride (98-107) mmol/L Carbon Dioxide (22-30) mmol/L Glucose (74-99) mg/dL POC Glucose (mg/dL) 132 H 149 H (75-99) mg/dL Calcium (8.4-10.2) mg/dL Ionized Calcium Yuval 3.5 L* (4.5-5.3) mg/dL Phosphorus (2.5-4.5) mg/dL Magnesium (1.6-2.3) mg/dL 04/05/17 04/05/17 Range/Units 10:23 10:25 WBC (3.8-10.6) k/uL RBC (4.30-5.90) m/uL Hgb (13.0-17.5) gm/dL Hct (39.0-53.0) % RDW (11.5-15.5) % Plt Count (150-450) k/uL Neutrophils # (1.3-7.7) k/uL ABG pH 7.30 L (7.35-7.45) ABG pO2 (83-108) mmHg ABG HCO3 20 L (21-25) mmol/L ABG O2 Saturation (94-97) % Potassium (3.5-5.1) mmol/L Chloride (98-107) mmol/L Carbon Dioxide (22-30) mmol/L Glucose (74-99) mg/dL POC Glucose (mg/dL) 127 H (75-99) mg/dL Calcium (8.4-10.2) mg/dL Ionized Calcium Yuval (4.5-5.3) mg/dL Phosphorus (2.5-4.5) mg/dL Magnesium (1.6-2.3) mg/dL Microbiology - Last 24 Hours (Table) 04/01/17 21:10 Blood Culture - Preliminary Blood No Growth after 72 hours 04/01/17 21:46 Blood Culture - Preliminary Blood No Growth after 72 hours 04/01/17 21:54 Blood Culture - Preliminary Blood No Growth after 72 hours
[2017-04-05 12:19] LABS: Glucose,Whole Blood 138 mg/dL (75-99)
[2017-04-05 13:12] LABS: Glucose,Whole Blood 132 mg/dL (75-99)
[2017-04-05 14:16] LABS: Glucose,Whole Blood 127 mg/dL (75-99)
[2017-04-05] MEDS ORDERED: POTASSIUM CHLORIDE 20 MEQ in WATER FOR INJECTION 1 100ML.BAG IVPB ONE (14:28)
[2017-04-05] MEDS ORDERED: POTASSIUM CHLORIDE 20 MEQ in SODIUM CHLORIDE 0.9% 100 ML IVPB ONE (15:00)
[2017-04-05 15:25] LABS: Glucose,Whole Blood 135 mg/dL (75-99)
[2017-04-05 16:18] LABS: Glucose,Whole Blood 126 mg/dL (75-99)
[2017-04-05 18:06] LABS: Glucose,Whole Blood 140 mg/dL (75-99)
[2017-04-05 20:01] LABS: Glucose,Whole Blood 147 mg/dL (75-99)
[2017-04-05 21:35] LABS: Glucose,Whole Blood 138 mg/dL (75-99)
--- NOTE | 2017-04-05 22:19 | PN ---
PROGRESS NOTE DATE OF SERVICE: 04/05/2017. REASON FOR FOLLOWUP: Gram-negative sepsis with Enterobacter in the urine and blood. INTERVAL HISTORY: The patient is afebrile. He is awake and alert: Responding to simple commands. Denies having any chest pain. No cough. No significant abdominal pain. He has been tolerating his tube feeds. No significant diarrhea. EXAMINATION: Blood pressure is 99/61 with a pulse of 55, temperature of 96. He is 94% on 40% FiO2. General description is an middle-aged male lying in bed in no distress. Respiratory system unlabored breathing. Clear to auscultation anteriorly. Heart S1, S2. Regular rate and rhythm. Abdomen soft no tenderness. LABS: White count down to 17.6, BUN of 20, creatinine 0.86. DIAGNOSTIC IMPRESSION AND PLAN: Patient with gram-negative sepsis with Enterobacter the blood in the urine. The patient also showing Pseudomonas aeruginosa, Enterobacter has significant resistant pattern has currently patient is on meropenem that will be continued. Continue supportive care. MMODL / IJN: [id number] /
[2017-04-06 00:55] LABS: Glucose,Whole Blood 147 mg/dL (75-99)
[2017-04-06 02:06] LABS: Glucose,Whole Blood 141 mg/dL (75-99)
[2017-04-06] MEDS: IPRATROPIUM-ALBUTEROL 3 ML NEB INHALATION SCH ×6 (03:41→23:38)
[2017-04-06 04:39] LABS: Glucose,Whole Blood 133 mg/dL (75-99)
[2017-04-06 04:51] LABS: HCT 30.9 % (39.0-53.0); MCH 28.4 pg (25.0-35.0); MCHC 32.5 g/dL (31.0-37.0); MCV 87.4 fL (80.0-100.0); Mean Platelet Volume 11.3; RBC 3.53 m/uL (4.30-5.90); RDW 15.9 % (11.5-15.5); WBC 13.6 k/uL (3.8-10.6)
[2017-04-06 04:54] LABS: Platelet Count 51 k/uL (150-450)
[2017-04-06 05:06] LABS: Ionized Calcium 3.8 mg/dL (4.5-5.3)
[2017-04-06] MEDS: MEROPENEM 1 GM in SODIUM CHLORIDE 0.9% 100 ML IVPB SCH ×3 (05:17→20:04)
[2017-04-06] MEDS: SODIUM CHLORIDE 0.9% 250 ML with HYDROCORTISONE SUCCINATE 250 MG IV SCH ×4 (05:17→20:04)
[2017-04-06 05:18] LABS: Anion Gap 6 mmol/L; Blood Urea Nitrogen 25 mg/dL (9-20); Carbon Dioxide 22 mmol/L (22-30); Chloride 116 mmol/L (98-107); Glucose 142 mg/dL (74-99); Magnesium 1.6 mg/dL (1.6-2.3); Potassium 3.8 mmol/L (3.5-5.1); Sodium 144 mmol/L (137-145)
[2017-04-06] MEDS: SODIUM CHLORIDE 0.45% 1,000 ML IV SCH ×5 (05:18→20:03)
[2017-04-06] MEDS: PROPOFOL 1,000 MG in EMPTY BAG 1 BAG IV SCH (05:19)
[2017-04-06 05:44] LABS: Calcium 5.7 mg/dL (8.4-10.2)
[2017-04-06 05:46] LABS: ABG PH 7.41 (7.35-7.45)
[2017-04-06 05:47] LABS: ABG Base Excess -4.6 mmol/L; ABG HCO3 19 mmol/L (21-25); ABG PCO2 31 mmHg (35-45); ABG PO2 89 mmHg (83-108); ABG TCO2 20 mmol/L (19-24)
[2017-04-06] MEDS ORDERED: Phosphorus Replacement Protoco 1 EACH MISC MISCELLANE PRN (06:15)
[2017-04-06 06:33] LABS: Glucose,Whole Blood 131 mg/dL (75-99)
[2017-04-06] MEDS ORDERED: POTASSIUM CHLORIDE ORAL LIQUID 40 MEQ/30 ML CUP NG-TUBE SCH (07:00)
--- NOTE | 2017-04-06 07:59 | P.PN ---
Subjective Principal diagnosis: Continuing care. This is impression a 51-year-old white male with history of spinal cord injury 30 years ago who has developed UTI with sepsis with hypotensive septic shock. The patient is now ventilated and having improvement. Multiple consultants are on including critical care with infectious disease. Neurology has also been consulted. Patient's calcium has been low and is being corrected. Objective - Vital Signs Vital signs: Vital Signs Temp 97 F L 04/06/17 04:00 Pulse 66 04/06/17 07:00 Resp 21 04/06/17 07:00 BP 79/51 04/05/17 20:00 Pulse Ox 94 L 04/06/17 07:00 Intake & Output 04/05/17 04/06/17 04/06/17 18:59 06:59 18:59 Intake Total 4045.195 3893.507 Output Total 2105 4215 Balance 1940.195 -321.493 Weight 132.3 kg Intake: IV 2983 2736 Calcium Gluconate 2,000 100 mg In Sodium Chloride 0.9 % 100 ml @ 100 mls/hr IVPB ONCE ONE Rx#: [id number] Magnesium Sulfate-D5w Pmx 100 1 gm In Dextrose/Water 1 100ml.bag @ 100 mls/hr IVPB Q1H [facility] Rx#: [id number] Meropenem 1 gm In Sodium 200 Chloride 0.9% 100 ml @ 200 mls/hr IVPB Q8H [facility] Rx#:[id number] Pressure Bag 33 36 Sodium Chloride 0.45% 1, 2400 2400 000 ml @ 200 mls/hr IV . Q5H [facility] Rx#:[id number] Sodium Phosphate 10 mmol 100 In Sodium Chloride 0.9% 100 ml @ 50 mls/hr IVPB ONCE ONE Rx#:[id number] Vancomycin 1,750 mg In 250 Sodium Chloride 0.9% 250 ml @ 125 mls/hr IVPB Q12HR [facility] Rx#:[id number] levETIRAcetam IV 1,000 mg 100 In Saline 1 100ml.bag @ 400 mls/hr IVPB Q12HR [facility] Rx#:[id number] Intake, IV Titration 174.195 98.507 Amount Insulin Regular 100 unit 5.647 In Sodium Chloride 0.9% 100 ml @ Per Protocol IV .Q0M [facility] Rx#:[id number] Norepinephrin 16 mg-0.9% 84.815 Ns Pmx 16 mg In 250 ml @ Titrate IV .Q0M [facility] Rx#: [id number] Propofol 1,000 mg In 83.733 98.507 Empty Bag 1 bag @ Titrate IV .Q0M [facility] Rx#: [id number] Oral 57 Tube Feeding 798 912 Other 90 90 Output: Urine 2105 4215 Other: Voiding Method Indwelling Catheter Indwelling Catheter ABP, PAP, CO, CI - Last Documented Arterial Blood Pressure 87/55 - Constitutional General appearance: Present: average body habitus - EENT Eyes: Absent: abnormal pupil - Neck Neck: Absent: lymphadenopathy - Respiratory Respiratory: bilateral: CTA - Cardiovascular Rhythm: regular Heart sounds: normal: S1, S2 - Gastrointestinal General gastrointestinal: Absent: tenderness - Integumentary Integumentary: Absent: cellulitis - Neurologic Neurologic Comment(s): paraplegia - Labs CBC & Chem 7: 04/06/17 04:30 04/06/17 04:30 Labs: Abnormal Lab Results - Last 24 Hours (Table) 04/05/17 04/05/17 04/05/17 Range/Units 08:01 10:23 10:25 WBC (3.8-10.6) k/uL RBC (4.30-5.90) m/uL Hgb (13.0-17.5) gm/dL Hct (39.0-53.0) % RDW (11.5-15.5) % Plt Count (150-450) k/uL ABG pH 7.30 L (7.35-7.45) ABG pCO2 (35-45) mmHg ABG HCO3 20 L (21-25) mmol/L Potassium (3.5-5.1) mmol/L Chloride (98-107) mmol/L BUN (9-20) mg/dL Glucose (74-99) mg/dL POC Glucose (mg/dL) 149 H 127 H (75-99) mg/dL Calcium (8.4-10.2) mg/dL Ionized Calcium Yuval (4.5-5.3) mg/dL Phosphorus (2.5-4.5) mg/dL Albumin (3.5-5.0) g/dL 04/05/17 04/05/17 04/05/17 Range/Units 12:16 13:08 13:22 WBC (3.8-10.6) k/uL RBC (4.30-5.90) m/uL Hgb (13.0-17.5) gm/dL Hct (39.0-53.0) % RDW (11.5-15.5) % Plt Count (150-450) k/uL ABG pH (7.35-7.45) ABG pCO2 (35-45) mmHg ABG HCO3 (21-25) mmol/L Potassium 3.2 L (3.5-5.1) mmol/L Chloride (98-107) mmol/L BUN (9-20) mg/dL Glucose (74-99) mg/dL POC Glucose (mg/dL) 138 H 132 H (75-99) mg/dL Calcium (8.4-10.2) mg/dL Ionized Calcium Yuval (4.5-5.3) mg/dL Phosphorus (2.5-4.5) mg/dL Albumin (3.5-5.0) g/dL 04/05/17 04/05/17 04/05/17 Range/Units 14:14 14:15 15:22 WBC (3.8-10.6) k/uL RBC (4.30-5.90) m/uL Hgb (13.0-17.5) gm/dL Hct (39.0-53.0) % RDW (11.5-15.5) % Plt Count (150-450) k/uL ABG pH (7.35-7.45) ABG pCO2 (35-45) mmHg ABG HCO3 (21-25) mmol/L Potassium (3.5-5.1) mmol/L Chloride (98-107) mmol/L BUN (9-20) mg/dL Glucose (74-99) mg/dL POC Glucose (mg/dL) 127 H 135 H (75-99) mg/dL Calcium (8.4-10.2) mg/dL Ionized Calcium Yuval (4.5-5.3) mg/dL Phosphorus (2.5-4.5) mg/dL Albumin 1.9 L (3.5-5.0) g/dL 04/05/17 04/05/17 04/05/17 Range/Units 16:15 18:04 19:59 WBC (3.8-10.6) k/uL RBC (4.30-5.90) m/uL Hgb (13.0-17.5) gm/dL Hct (39.0-53.0) % RDW (11.5-15.5) % Plt Count (150-450) k/uL ABG pH (7.35-7.45) ABG pCO2 (35-45) mmHg ABG HCO3 (21-25) mmol/L Potassium (3.5-5.1) mmol/L Chloride (98-107) mmol/L BUN (9-20) mg/dL Glucose (74-99) mg/dL POC Glucose (mg/dL) 126 H 140 H 147 H (75-99) mg/dL Calcium (8.4-10.2) mg/dL Ionized Calcium Yuval (4.5-5.3) mg/dL Phosphorus (2.5-4.5) mg/dL Albumin (3.5-5.0) g/dL 04/05/17 04/05/17 04/06/17 Range/Units 21:30 21:32 00:53 WBC (3.8-10.6) k/uL RBC (4.30-5.90) m/uL Hgb (13.0-17.5) gm/dL Hct (39.0-53.0) % RDW (11.5-15.5) % Plt Count (150-450) k/uL ABG pH (7.35-7.45) ABG pCO2 (35-45) mmHg ABG HCO3 (21-25) mmol/L Potassium 3.4 L (3.5-5.1) mmol/L Chloride (98-107) mmol/L BUN (9-20) mg/dL Glucose (74-99) mg/dL POC Glucose (mg/dL) 138 H 147 H (75-99) mg/dL Calcium (8.4-10.2) mg/dL Ionized Calcium Yuval (4.5-5.3) mg/dL Phosphorus (2.5-4.5) mg/dL Albumin (3.5-5.0) g/dL 04/06/17 04/06/17 04/06/17 Range/Units 02:04 04:30 04:30 WBC 13.6 H (3.8-10.6) k/uL RBC 3.53 L (4.30-5.90) m/uL Hgb 10.0 L (13.0-17.5) gm/dL Hct 30.9 L (39.0-53.0) % RDW 15.9 H (11.5-15.5) % Plt Count 51 L (150-450) k/uL ABG pH (7.35-7.45) ABG pCO2 (35-45) mmHg ABG HCO3 (21-25) mmol/L Potassium (3.5-5.1) mmol/L Chloride 116 H (98-107) mmol/L BUN 25 H (9-20) mg/dL Glucose 142 H (74-99) mg/dL POC Glucose (mg/dL) 141 H (75-99) mg/dL Calcium 5.7 L* (8.4-10.2) mg/dL Ionized Calcium Yuval 3.8 L (4.5-5.3) mg/dL Phosphorus 2.0 L (2.5-4.5) mg/dL Albumin (3.5-5.0) g/dL 04/06/17 04/06/17 04/06/17 Range/Units 04:37 05:18 06:30 WBC (3.8-10.6) k/uL RBC (4.30-5.90) m/uL Hgb (13.0-17.5) gm/dL Hct (39.0-53.0) % RDW (11.5-15.5) % Plt Count (150-450) k/uL ABG pH (7.35-7.45) ABG pCO2 31 L (35-45) mmHg ABG HCO3 19 L (21-25) mmol/L Potassium (3.5-5.1) mmol/L Chloride (98-107) mmol/L BUN (9-20) mg/dL Glucose (74-99) mg/dL POC Glucose (mg/dL) 133 H 131 H (75-99) mg/dL Calcium (8.4-10.2) mg/dL Ionized Calcium Yuval (4.5-5.3) mg/dL Phosphorus (2.5-4.5) mg/dL Albumin (3.5-5.0) g/dL Microbiology - Last 24 Hours (Table) 04/01/17 21:10 Blood Culture - Preliminary Blood No Growth after 96 hours 04/01/17 21:46 Blood Culture - Preliminary Blood No Growth after 96 hours 04/01/17 21:54 Blood Culture - Preliminary Blood No Growth after 96 hours Assessment and Plan (1) Paraplegia following spinal cord injury Current Visit: Yes Status: Acute Code(s): G82.20 - PARAPLEGIA, UNSPECIFIED SNOMED Code(s): 99714297 (2) Gross hematuria Current Visit: Yes Status: Acute Code(s): R31.0 - GROSS HEMATURIA SNOMED Code(s): 727530996 (3) Uremia Current Visit: Yes Status: Acute Code(s): N19 - UNSPECIFIED KIDNEY FAILURE SNOMED Code(s): 51752706 (4) Seizure Current Visit: Yes Status: Acute Code(s): R56.9 - UNSPECIFIED CONVULSIONS SNOMED Code(s): 22247058 (5) Toxic metabolic encephalopathy Current Visit: Yes Status: Acute Code(s): G92 - TOXIC ENCEPHALOPATHY SNOMED Code(s): 965505719 (6) Septic shock Current Visit: Yes Status: Acute Code(s): A41.9 - SEPSIS, UNSPECIFIED ORGANISM; R65.21 - SEVERE SEPSIS WITH SEPTIC SHOCK SNOMED Code(s): 03668416 Plan: Continue supportive care. Check CBC CMP in the a.m. We'll continue to follow. Dr. Mejia's group Route covering starting 04/07. See orders otherwise. Time with Patient: Greater than 30
[2017-04-06] MEDS ORDERED: CALCIUM GLUCONATE 1,000 MG in SODIUM CHLORIDE 0.9% 100 ML IVPB ONE (08:00)
[2017-04-06] MEDS: MAGNESIUM SULFATE-D5W PMX 1 GM in DEXTROSE/WATER 1 100ML.BAG IVPB SCH ×2 (08:12→09:21)
[2017-04-06] MEDS: POTASSIUM PHOSPHATE 10 MMOL in SODIUM CHLORIDE 0.9% 250 ML IV SCH ×2 (08:13→10:09)
--- NOTE | 2017-04-06 08:30 | P.PN ---
Subjective Progress Note Date: 04/06/17 Principal diagnosis: Sepsis Progress note dated 04/06/2017 This is a 51-year-old male with a history of respiratory failure secondary to overwhelming sepsis and septic shock from a urinary tract infection secondary to Enterobacter Jameson reason pseudomonas aeruginosa. Blood cultures were also positive for Enterobacter around kidneys. The patient is doing relatively well. His FiO2 and PEEP levels are low. His blood gases are reasonable. His weaning parameters today were fine and were thinking about extubating the patient. In addition, the patient has a history of hypoxemic respiratory failure severe metabolic derangements including lactic acidemia secondary to sepsis previous history of paraplegia with neurogenic bladder acute kidney injury secondary to septic shock and acute tubular necrosis and a history of kidney stones. The patient has had multiple surgeries for skin grafts of pressure sores as well as previous sphincterotomy and lithotripsy for kidney stones. Again the patient seemed be doing relatively well today. We'll stop his propofol. Local had an empty stomach. We'll give him a CPAP/PSV trial. We 'll check a cuff leak. We will do a rapid shallow breathing index. Everything looks good, trial of extubation. Objective - Vital Signs Vital signs: Vital Signs Temp 97 F L 04/06/17 04:00 Pulse 83 04/06/17 08:24 Resp 21 04/06/17 07:00 BP 79/51 04/05/17 20:00 Pulse Ox 94 L 04/06/17 07:00 Intake & Output 04/05/17 04/06/17 04/06/17 18:59 06:59 18:59 Intake Total 4045.195 3893.507 Output Total 2105 4215 Balance 1940.195 -321.493 Weight 132.3 kg Intake: IV 2983 2736 Calcium Gluconate 2,000 100 mg In Sodium Chloride 0.9 % 100 ml @ 100 mls/hr IVPB ONCE ONE Rx#: [id number] Magnesium Sulfate-D5w Pmx 100 1 gm In Dextrose/Water 1 100ml.bag @ 100 mls/hr IVPB Q1H [facility] Rx#: [id number] Meropenem 1 gm In Sodium 200 Chloride 0.9% 100 ml @ 200 mls/hr IVPB Q8H [facility] Rx#:[id number] Pressure Bag 33 36 Sodium Chloride 0.45% 1, 2400 2400 000 ml @ 200 mls/hr IV . Q5H [facility] Rx#:[id number] Sodium Phosphate 10 mmol 100 In Sodium Chloride 0.9% 100 ml @ 50 mls/hr IVPB ONCE ONE Rx#:[id number] Vancomycin 1,750 mg In 250 Sodium Chloride 0.9% 250 ml @ 125 mls/hr IVPB Q12HR [facility] Rx#:[id number] levETIRAcetam IV 1,000 mg 100 In Saline 1 100ml.bag @ 400 mls/hr IVPB Q12HR [facility] Rx#:[id number] Intake, IV Titration 174.195 98.507 Amount Insulin Regular 100 unit 5.647 In Sodium Chloride 0.9% 100 ml @ Per Protocol IV .Q0M [facility] Rx#:[id number] Norepinephrin 16 mg-0.9% 84.815 Ns Pmx 16 mg In 250 ml @ Titrate IV .Q0M [facility] Rx#: [id number] Propofol 1,000 mg In 83.733 98.507 Empty Bag 1 bag @ Titrate IV .Q0M [facility] Rx#: [id number] Oral 57 Tube Feeding 798 912 Other 90 90 Output: Urine 2105 4215 Other: Voiding Method Indwelling Catheter Indwelling Catheter ABP, PAP, CO, CI - Last Documented Arterial Blood Pressure 87/55 - Exam No acute distress, seems awake and alert. Endotracheal tube and NG tube in place HEENT examination is grossly unremarkable. Mucous membranes are moist. No oral lesions. Neck supple. Full range of motion. No adenopathy thyromegaly or neck vein distention. Cardiovascular examination reveals regular rhythm rate. S1-S2 normal. No S3 or S4. No discernible murmur noted. Lungs reveal a few scattered rhonchi. No wheezes or crackles. Breath sounds are diminished. Abdomen soft bowel sounds are heard. No masses or tenderness. Extremities are intact. No cyanosis clubbing or edema. Skin is without rash or lesion. Neurologic examination cannot be adequately performed. - Labs CBC & Chem 7: 04/06/17 04:30 04/06/17 04:30 Labs: Abnormal Lab Results - Last 24 Hours (Table) 04/05/17 04/05/17 04/05/17 Range/Units 10:23 10:25 12:16 WBC (3.8-10.6) k/uL RBC (4.30-5.90) m/uL Hgb (13.0-17.5) gm/dL Hct (39.0-53.0) % RDW (11.5-15.5) % Plt Count (150-450) k/uL ABG pH 7.30 L (7.35-7.45) ABG pCO2 (35-45) mmHg ABG HCO3 20 L (21-25) mmol/L Potassium (3.5-5.1) mmol/L Chloride (98-107) mmol/L BUN (9-20) mg/dL Glucose (74-99) mg/dL POC Glucose (mg/dL) 127 H 138 H (75-99) mg/dL Calcium (8.4-10.2) mg/dL Ionized Calcium Yuval (4.5-5.3) mg/dL Phosphorus (2.5-4.5) mg/dL Albumin (3.5-5.0) g/dL 04/05/17 04/05/17 04/05/17 Range/Units 13:08 13:22 14:14 WBC (3.8-10.6) k/uL RBC (4.30-5.90) m/uL Hgb (13.0-17.5) gm/dL Hct (39.0-53.0) % RDW (11.5-15.5) % Plt Count (150-450) k/uL ABG pH (7.35-7.45) ABG pCO2 (35-45) mmHg ABG HCO3 (21-25) mmol/L Potassium 3.2 L (3.5-5.1) mmol/L Chloride (98-107) mmol/L BUN (9-20) mg/dL Glucose (74-99) mg/dL POC Glucose (mg/dL) 132 H 127 H (75-99) mg/dL Calcium (8.4-10.2) mg/dL Ionized Calcium Yuval (4.5-5.3) mg/dL Phosphorus (2.5-4.5) mg/dL Albumin (3.5-5.0) g/dL 04/05/17 04/05/17 04/05/17 Range/Units 14:15 15:22 16:15 WBC (3.8-10.6) k/uL RBC (4.30-5.90) m/uL Hgb (13.0-17.5) gm/dL Hct (39.0-53.0) % RDW (11.5-15.5) % Plt Count (150-450) k/uL ABG pH (7.35-7.45) ABG pCO2 (35-45) mmHg ABG HCO3 (21-25) mmol/L Potassium (3.5-5.1) mmol/L Chloride (98-107) mmol/L BUN (9-20) mg/dL Glucose (74-99) mg/dL POC Glucose (mg/dL) 135 H 126 H (75-99) mg/dL Calcium (8.4-10.2) mg/dL Ionized Calcium Yuval (4.5-5.3) mg/dL Phosphorus (2.5-4.5) mg/dL Albumin 1.9 L (3.5-5.0) g/dL 04/05/17 04/05/17 04/05/17 Range/Units 18:04 19:59 21:30 WBC (3.8-10.6) k/uL RBC (4.30-5.90) m/uL Hgb (13.0-17.5) gm/dL Hct (39.0-53.0) % RDW (11.5-15.5) % Plt Count (150-450) k/uL ABG pH (7.35-7.45) ABG pCO2 (35-45) mmHg ABG HCO3 (21-25) mmol/L Potassium 3.4 L (3.5-5.1) mmol/L Chloride (98-107) mmol/L BUN (9-20) mg/dL Glucose (74-99) mg/dL POC Glucose (mg/dL) 140 H 147 H (75-99) mg/dL Calcium (8.4-10.2) mg/dL Ionized Calcium Yuval (4.5-5.3) mg/dL Phosphorus (2.5-4.5) mg/dL Albumin (3.5-5.0) g/dL 04/05/17 04/06/17 04/06/17 Range/Units 21:32 00:53 02:04 WBC (3.8-10.6) k/uL RBC (4.30-5.90) m/uL Hgb (13.0-17.5) gm/dL Hct (39.0-53.0) % RDW (11.5-15.5) % Plt Count (150-450) k/uL ABG pH (7.35-7.45) ABG pCO2 (35-45) mmHg ABG HCO3 (21-25) mmol/L Potassium (3.5-5.1) mmol/L Chloride (98-107) mmol/L BUN (9-20) mg/dL Glucose (74-99) mg/dL POC Glucose (mg/dL) 138 H 147 H 141 H (75-99) mg/dL Calcium (8.4-10.2) mg/dL Ionized Calcium Yuval (4.5-5.3) mg/dL Phosphorus (2.5-4.5) mg/dL Albumin (3.5-5.0) g/dL 04/06/17 04/06/17 04/06/17 Range/Units 04:30 04:30 04:37 WBC 13.6 H (3.8-10.6) k/uL RBC 3.53 L (4.30-5.90) m/uL Hgb 10.0 L (13.0-17.5) gm/dL Hct 30.9 L (39.0-53.0) % RDW 15.9 H (11.5-15.5) % Plt Count 51 L (150-450) k/uL ABG pH (7.35-7.45) ABG pCO2 (35-45) mmHg ABG HCO3 (21-25) mmol/L Potassium (3.5-5.1) mmol/L Chloride 116 H (98-107) mmol/L BUN 25 H (9-20) mg/dL Glucose 142 H (74-99) mg/dL POC Glucose (mg/dL) 133 H (75-99) mg/dL Calcium 5.7 L* (8.4-10.2) mg/dL Ionized Calcium Yuval 3.8 L (4.5-5.3) mg/dL Phosphorus 2.0 L (2.5-4.5) mg/dL Albumin (3.5-5.0) g/dL 04/06/17 04/06/17 Range/Units 05:18 06:30 WBC (3.8-10.6) k/uL RBC (4.30-5.90) m/uL Hgb (13.0-17.5) gm/dL Hct (39.0-53.0) % RDW (11.5-15.5) % Plt Count (150-450) k/uL ABG pH (7.35-7.45) ABG pCO2 31 L (35-45) mmHg ABG HCO3 19 L (21-25) mmol/L Potassium (3.5-5.1) mmol/L Chloride (98-107) mmol/L BUN (9-20) mg/dL Glucose (74-99) mg/dL POC Glucose (mg/dL) 131 H (75-99) mg/dL Calcium (8.4-10.2) mg/dL Ionized Calcium Yuval (4.5-5.3) mg/dL Phosphorus (2.5-4.5) mg/dL Albumin (3.5-5.0) g/dL Microbiology - Last 24 Hours (Table) 04/01/17 21:10 Blood Culture - Preliminary Blood No Growth after 96 hours 04/01/17 21:46 Blood Culture - Preliminary Blood No Growth after 96 hours 04/01/17 21:54 Blood Culture - Preliminary Blood No Growth after 96 hours Assessment and Plan (1) Acute kidney injury Current Visit: Yes Status: Acute Code(s): N17.9 - ACUTE KIDNEY FAILURE, UNSPECIFIED SNOMED Code(s): 95491779 (2) Lactic acidosis Current Visit: Yes Status: Acute Code(s): E87.2 - ACIDOSIS SNOMED Code(s) : 94245032 (3) Septic shock due to Pseudomonas species Current Visit: Yes Status: Acute Code(s): A41.52 - SEPSIS DUE TO PSEUDOMONAS ; R65.21 - SEVERE SEPSIS WITH SEPTIC SHOCK SNOMED Code(s): 20542196 (4) Respiratory failure Current Visit: Yes Status: Acute Code(s): J96.90 - RESPIRATORY FAILURE, UNSP , UNSP W HYPOXIA OR HYPERCAPNIA SNOMED Code(s): 198203616 (5) Acute respiratory failure requiring reintubation Current Visit: Yes Status: Acute Code(s): J96.00 - ACUTE RESPIRATORY FAILURE , UNSP W HYPOXIA OR HYPERCAPNIA SNOMED Code(s): 492460172 (6) Gross hematuria Current Visit: Yes Status: Acute Code(s): R31.0 - GROSS HEMATURIA SNOMED Code(s): 174145235 (7) Paraplegia following spinal cord injury Current Visit: Yes Status: Acute Code(s): G82.20 - PARAPLEGIA, UNSPECIFIED SNOMED Code(s): 66707031 (8) Renal calculus, bilateral Current Visit: Yes Status: Acute Code(s): N20.0 - CALCULUS OF KIDNEY SNOMED Code(s): 95254839 (9) Seizure Current Visit: Yes Status: Acute Code(s): R56.9 - UNSPECIFIED CONVULSIONS SNOMED Code(s): 32011152 (10) Septic shock Current Visit: Yes Status: Acute Code(s): A41.9 - SEPSIS, UNSPECIFIED ORGANISM; R65.21 - SEVERE SEPSIS WITH SEPTIC SHOCK SNOMED Code(s): 85166145 (11) Toxic metabolic encephalopathy Current Visit: Yes Status: Acute Code(s): G92 - TOXIC ENCEPHALOPATHY SNOMED Code(s): 020503419 (12) Uremia Current Visit: Yes Status: Acute Code(s): N19 - UNSPECIFIED KIDNEY FAILURE SNOMED Code(s): 20354738 Plan: Plan dated 04/06/2017 The patient will be given a trial of extubation. Labs x-rays a medications are all reviewed. The patient had reasonable weaning parameters on fiber pressure- support 5 CPAP. He did have a cuff leak. Chest x-ray stable. He is off the vasopressin. Remains on the norepinephrine is much lower dose. Prognosis is guarded. We'll continue to follow. Labs x-rays a medications are all reviewed. Time with Patient: Greater than 30
--- NOTE | 2017-04-06 08:39 | XR ---
EXAMINATION TYPE: XR chest 1V portable DATE OF EXAM: 04/06/2017 COMPARISON: Prior chest x-ray 04/05/2017 HISTORY: Intubated TECHNIQUE: Single frontal view of the chest is obtained. FINDINGS: The patient is rotated. Endotracheal tube and NG tube are overlying appropriate positions. There are overlying cardiac leads. Retrocardiac density persists, the heart may be enlarged. No evid ent pneumothorax. Basilar density obscures portions of the right hemidiaphragm. Interstitium and cent ral vascularity appear prominently. IMPRESSION: Findings are similar to prior exam. Correlate for congestive heart failure, ARDS, pneumo erlin, there may be pleural effusions. Rotated exam, suspect cardiomegaly.
[2017-04-06 09:07] LABS: Glucose,Whole Blood 121 mg/dL (75-99)
[2017-04-06] MEDS: PANTOPRAZOLE 40 MG/10 ML VIAL IV SCH (09:23)
[2017-04-06] MEDS: levETIRAcetam IV 1,000 MG in SALINE 1 100ML.BAG IVPB SCH ×2 (10:08→20:04)
[2017-04-06 10:19] LABS: Glucose,Whole Blood 116 mg/dL (75-99)
[2017-04-06 11:47] LABS: ABG HCO3 14 mmol/L (21-25); ABG PCO2 36 mmHg (35-45); ABG PH 7.22 (7.35-7.45); ABG PO2 178 mmHg (83-108); ABG TCO2 15 mmol/L (19-24)
[2017-04-06 12:22] LABS: Glucose,Whole Blood 114 mg/dL (75-99)
[2017-04-06 14:41] LABS: Glucose,Whole Blood 109 mg/dL (75-99)
[2017-04-06] MEDS: NOREPINEPHRIN 16 MG-0.9%NS PMX 16 MG/250 ML ML IV SCH (16:20)
[2017-04-06 16:23] LABS: Glucose,Whole Blood 101 mg/dL (75-99)
--- NOTE | 2017-04-06 16:53 | PN ---
PROGRESS NOTE DATE OF SERVICE: 04/06/2017 REASON FOR FOLLOWUP: Gram-negative sepsis, urinary source. INTERVAL HISTORY: The patient is afebrile, has been extubated, hemodynamically slightly better, still requiring about 11 mcg of Levophed. The patient is currently on BiPAP. Denies any chest pain. No cough. No abdominal pain. No diarrhea. PHYSICAL EXAMINATION: Blood pressure 97/53 with a pulse of 72, temperature 96.7. He is 94% on BiPAP. General description is a middle-aged male lying in bed in no distress. RESPIRATORY SYSTEM: Unlabored breathing. Clear to auscultation anteriorly. HEART: S1, S2. Regular rate and rhythm. ABDOMEN: Soft. No tenderness. LABS: Hemoglobin is 10, white count 13.6, BUN of 25, creatinine 0.80. DIAGNOSTIC IMPRESSION AND PLAN: Patient with Gram-negative sepsis secondary to urinary source with enterobacter bacteremia and urinary tract infection. Patient at this time is covered with meropenem. That will be continued for now and continue with supportive care. MMODL / IJN: [id number] /
[2017-04-06 18:08] LABS: Glucose,Whole Blood 99 mg/dL (75-99)
[2017-04-06 20:42] LABS: Glucose,Whole Blood 84 mg/dL (75-99)
[2017-04-06] MEDS: DEXTROSE 5%-0.45% NACL 1,000 ML IV SCH (21:16)
[2017-04-06] MEDS: HYDROmorphone 1 MG/ML 1 ML SYRINGE IVP PRN (21:53)
[2017-04-06 22:05] LABS: Glucose,Whole Blood 99 mg/dL (75-99)
[2017-04-07 00:24] LABS: Glucose,Whole Blood 118 mg/dL (75-99)
[2017-04-07] MEDS: INSULIN ASPART 100 UNIT/ML 1 ML 10 ML VIAL SQ SCH ×7 (00:48→19:55)
[2017-04-07] MEDS: DEXTROSE 5%-0.45% NACL 1,000 ML IV SCH ×3 (03:00→10:16)
[2017-04-07] MEDS: HYDROmorphone 1 MG/ML 1 ML SYRINGE IVP PRN (03:04)
[2017-04-07] MEDS: IPRATROPIUM-ALBUTEROL 3 ML NEB INHALATION SCH ×6 (03:51→23:10)
[2017-04-07] MEDS: MEROPENEM 1 GM in SODIUM CHLORIDE 0.9% 100 ML IVPB SCH ×3 (04:26→20:23)
[2017-04-07 04:36] LABS: Glucose,Whole Blood 134 mg/dL (75-99)
[2017-04-07 04:52] LABS: Anisocytosis Slight; HCT 31.9 % (39.0-53.0); HGB 10.1 gm/dL (13.0-17.5); MCH 28.5 pg (25.0-35.0); MCHC 31.6 g/dL (31.0-37.0); MCV 90.2 fL (80.0-100.0); Mean Platelet Volume 9.9; RBC 3.54 m/uL (4.30-5.90); RDW 16.4 % (11.5-15.5); WBC 18.4 k/uL (3.8-10.6)
[2017-04-07 04:54] LABS: Platelet Count 87 k/uL (150-450)
[2017-04-07 04:59] LABS: Anion Gap 7 mmol/L; Blood Urea Nitrogen 23 mg/dL (9-20); Carbon Dioxide 24 mmol/L (22-30); Chloride 116 mmol/L (98-107); Glucose 143 mg/dL (74-99); Magnesium 1.7 mg/dL (1.6-2.3); Phosphorus 3.7 mg/dL (2.5-4.5); Potassium 3.9 mmol/L (3.5-5.1); Sodium 147 mmol/L (137-145)
[2017-04-07 05:22] LABS: Calcium 5.5 mg/dL (8.4-10.2)
[2017-04-07 06:17] LABS: ABG PCO2 59 mmHg (35-45); ABG PH 7.19 (7.35-7.45)
[2017-04-07 06:18] LABS: ABG HCO3 22 mmol/L (21-25); ABG PO2 117 mmHg (83-108); ABG TCO2 24 mmol/L (19-24)
[2017-04-07] MEDS ORDERED: PROPOFOL 100 ML IV ONE (06:34)
[2017-04-07] MEDS ORDERED: SUCCINYLCHOLINE CHLORIDE 100 MG/5 ML SYR IV ONE (06:45)
[2017-04-07] MEDS ORDERED: ETOMIDATE 2 MG/ML 10 ML VIAL ONE (06:45)
[2017-04-07] MEDS ORDERED: MIDAZOLAM 2 MG/2 ML VIAL ONE (06:45)
[2017-04-07] MEDS ORDERED: ePHEDrine SULFATE/0.9% NACL/PF 50 MG/5 ML SYRINGE IV ONE (06:45)
[2017-04-07] MEDS ORDERED: PHENYLEPHRINE-0.9% NACL SYG 1 MG/10 ML SYRINGE ONE (06:45)
--- NOTE | 2017-04-07 07:48 | XR ---
EXAMINATION TYPE: XR chest 1V DATE OF EXAM: 04/07/2017 CLINICAL HISTORY: Difficulty breathing had to be intubated. TECHNIQUE: Single AP portable supine view of the chest is obtained. COMPARISON: Chest x-ray from earlier today FINDINGS: There is no nasogastric tube, side port is at level of right lung base, consider advancing 4 to 6 cm. There is new endotracheal tube with tip at inferior clavicular margin just above aortic k nob, approximately 4 to 5 cm above rosmery . There is left basilar opacity silhouetting left heart border and hemidiaphragm consistent with modera te to large effusion. There is left hilar air bronchogram suspected left-sided volume loss with media stinal shift. There is fairly moderate right-sided pleural effusion extending to lung apex with diffu se right lung edema and/or infiltrates. Central vascular congestion is present. Cardiac silhouette si ze is difficult to assess due to silhouetting. Underlying levoconvex scoliosis centered in the upper thoracic spine is redemonstrated. IMPRESSION: 1. New endotracheal tube felt satisfactory in position. Advise advancing new orogastric tube. 2. There is presumed cardiomegaly with moderate to large left and moderate size right pleural effusio n. There is left-sided volume loss with left mid to lower lung atelectasis and/or infiltrate and diff use right lung edema and/or infiltrates all redemonstrated.
[2017-04-07] MEDS ORDERED: PROPOFOL 1,000 MG in EMPTY BAG 1 BAG IV SCH (08:00)
[2017-04-07 08:05] LABS: ABG Base Excess -4.9 mmol/L; ABG HCO3 21 mmol/L (21-25); ABG PCO2 44 mmHg (35-45); ABG PO2 68 mmHg (83-108); ABG TCO2 22 mmol/L (19-24)
--- NOTE | 2017-04-07 08:15 | XR ---
EXAMINATION TYPE: XR chest 1V portable DATE OF EXAM: 04/07/2017 COMPARISON: Prior chest x-ray 04/06/2017 HISTORY: Shortness of breath, extubation TECHNIQUE: frontal view of the chest is obtained on 2 images. FINDINGS: Endotracheal tube and NG tube have been removed. The blunting of the right costophrenic an gle an obscured right hemidiaphragm are again noted, stable changes in the left lower lobe. Perihilar increased attenuation greater on the current exam. There is likely a scoliosis. There is no evident pneumothorax. There are overlying cardiac leads. IMPRESSION: Bibasilar effusions and associated atelectasis versus edema or pneumonia. Cardiomegaly, correlate for worsening congestive heart failure.
[2017-04-07] MEDS: POTASSIUM CHLORIDE 10 MEQ, LIDOCAINE 2% INJ 10 MG in SODIUM CHLORIDE 0.9% 100 ML IV SCH ×2 (08:26→10:15)
[2017-04-07] MEDS: MAGNESIUM SULFATE-D5W PMX 1 GM in DEXTROSE/WATER 1 100ML.BAG IVPB SCH ×2 (08:26→10:14)
[2017-04-07] MEDS: PANTOPRAZOLE 40 MG/10 ML VIAL IV SCH (08:29)
[2017-04-07 08:58] LABS: Glucose,Whole Blood 165 mg/dL (75-99)
--- NOTE | 2017-04-07 09:15 | P.PN ---
Subjective Progress Note Date: 04/07/17 Principal diagnosis: Sepsis Progress note dated 04/06/2017 This is a 51-year-old male with a history of respiratory failure secondary to overwhelming sepsis and septic shock from a urinary tract infection secondary to Enterobacter Jameson reason pseudomonas aeruginosa. Blood cultures were also positive for Enterobacter around kidneys. The patient is doing relatively well. His FiO2 and PEEP levels are low. His blood gases are reasonable. His weaning parameters today were fine and were thinking about extubating the patient. In addition, the patient has a history of hypoxemic respiratory failure severe metabolic derangements including lactic acidemia secondary to sepsis previous history of paraplegia with neurogenic bladder acute kidney injury secondary to septic shock and acute tubular necrosis and a history of kidney stones. The patient has had multiple surgeries for skin grafts of pressure sores as well as previous sphincterotomy and lithotripsy for kidney stones. Again the patient seemed be doing relatively well today. We'll stop his propofol. Local had an empty stomach. We'll give him a CPAP/PSV trial. We 'll check a cuff leak. We will do a rapid shallow breathing index. Everything looks good, trial of extubation. Progress note dated 04/07/2017 This is a 51-year-old male with a history of respiratory failure secondary to overwhelming sepsis and septic shock from urinary tract infection secondary to Enterobacter as well as Pseudomonas. Blood cultures are also positive for Enterobacter. The patient was doing well yesterday and because he had good weaning parameters and a good blood gas and a good cuff leak, he was extubated. Apparently sometime after that, his respiratory status declined although I was not notified. Patient was placed on BiPAP at 12 and 5 and 50%. Sometime this morning, the patient's blood pressure got worse and the norepinephrine with continuing continuing to be increased. Finally, I was called by the nurses morning. The patient was up on the norepinephrine 2 18 mcg/m. Because of declining respiratory status and a poor blood gas showing significant metabolic acidosis, anesthesia was called and he was reintubated. The HEAD PUMPER could not reintubate the patient. The patient apparently had a difficult airway. The patient will likely need a tracheostomy. The x-rays labs and medications are reviewed. Currently he is on the assist control mode rate of 22 tidal volume for 50 FiO2 50% PEEP of 5. Arterial blood gases show a PaO2 of 68, a PaCO2 of 44, and a pH of 7.3. He will need a PICC line. The art line is nonfunctional be discontinued. Again he was extubated on April 06 and reintubated on April 07. His IVs include a dextrose with half-normal saline at 200 mL an hour norepinephrine at 20 mcg/m, site Cortef at 12.5 mg an hour and propofol at 20 mics per kilogram per minute. We'll resume tube feeds. Most him to cut back his IV fluids as his chest x-ray shows if Fluid overload and through the course of his hospitalization, his receive lots of fluids. I will talk to the family about a tracheostomy. Objective - Vital Signs Vital signs: Vital Signs Temp 97.9 F 04/07/17 08:00 Pulse 75 04/07/17 08:11 Resp 22 04/07/17 08:00 BP 130/65 04/07/17 08:00 Pulse Ox 93 L 04/07/17 08:00 Intake & Output 04/06/17 04/07/17 04/07/17 18:59 06:59 18:59 Intake Total 2719.844 2800.189 215.5 Output Total 1675 1105 35 Balance 8662.553 5985.189 180.5 Weight 143.3 kg Intake: IV 2436 2670.5 215.5 Dextrose 5%-0.45% NaCl 1, 2000 200 000 ml @ 200 mls/hr IV . Q5H [facility] Rx#:[id number] Meropenem 1 gm In Sodium 200 Chloride 0.9% 100 ml @ 200 mls/hr IVPB Q8H [facility] Rx#:[id number] Pressure Bag 36 33 3 Sodium Chloride 0.45% 1, 2400 200 000 ml @ 200 mls/hr IV . Q5H [facility] Rx#:[id number] Sodium Chloride 0.9% 250 137.5 12.5 ml @ 12.5 MG/HR 12.5 mls/ hr IV .Q20H [facility]DA with Hydrocortisone Succinate 250 mg Rx#:[id number] levETIRAcetam IV 1,000 mg 100 In Saline 1 100ml.bag @ 400 mls/hr IVPB Q12HR [facility] Rx#:[id number] Intake, IV Titration 226.844 129.689 Amount Norepinephrin 16 mg-0.9% 226.844 129.689 Ns Pmx 16 mg In 250 ml @ Titrate IV .Q0M [facility] Rx#: [id number] Tube Feeding 57 Output: Urine 1675 1105 35 Other: Voiding Method Indwelling Catheter Indwelling Catheter ABP, PAP, CO, CI - Last Documented Arterial Blood Pressure 108/53 - Exam No acute distress, the patient is re-sedated.. Endotracheal tube and NG tube in place HEENT examination is grossly unremarkable. Mucous membranes are moist. No oral lesions. Neck supple. Full range of motion. No adenopathy thyromegaly or neck vein distention. Cardiovascular examination reveals regular rhythm rate. S1-S2 normal. No S3 or S4. No discernible murmur noted. Lungs reveal a few scattered rhonchi. No wheezes or crackles. Breath sounds are diminished. Abdomen soft bowel sounds are heard. No masses or tenderness. Extremities are intact. No cyanosis clubbing or edema. Skin is without rash or lesion. Neurologic examination cannot be adequately performed. - Labs CBC & Chem 7: 04/07/17 04:23 04/07/17 04:23 Labs: Abnormal Lab Results - Last 24 Hours (Table) 03/31/17 04/06/17 04/06/17 Range/Units 18:18 10:18 12:20 WBC (3.8-10.6) k/uL RBC (4.30-5.90) m/uL Hgb (13.0-17.5) gm/dL Hct (39.0-53.0) % RDW (11.5-15.5) % Plt Count (150-450) k/uL ABG pH 7.22 L (7.35-7.45) ABG pCO2 (35-45) mmHg ABG pO2 178 H (83-108) mmHg ABG HCO3 14 L (21-25) mmol/L ABG Total CO2 15 L (19-24) mmol/L ABG O2 Saturation 99.0 H (94-97) % Sodium (137-145) mmol/L Chloride (98-107) mmol/L BUN (9-20) mg/dL Glucose (74-99) mg/dL POC Glucose (mg/dL) 116 H 114 H (75-99) mg/dL Calcium (8.4-10.2) mg/dL Ionized Calcium Yuval (4.5-5.3) mg/dL 04/06/17 04/06/1704/07/17 Range/Units 14:37 16:22 00:21 WBC (3.8-10.6) k/uL RBC (4.30-5.90) m/uL Hgb (13.0-17.5) gm/dL Hct (39.0-53.0) % RDW (11.5-15.5) % Plt Count (150-450) k/uL ABG pH (7.35-7.45) ABG pCO2 (35-45) mmHg ABG pO2 (83-108) mmHg ABG HCO3 (21-25) mmol/L ABG Total CO2 (19-24) mmol/L ABG O2 Saturation (94-97) % Sodium (137-145) mmol/L Chloride (98-107) mmol/L BUN (9-20) mg/dL Glucose (74-99) mg/dL POC Glucose (mg/dL) 109 H 101 H 118 H (75-99) mg/dL Calcium (8.4-10.2) mg/dL Ionized Calcium Yuval (4.5-5.3) mg/dL 04/07/17 04/07/17 04/07/17 Range/Units 04:23 04:23 04:23 WBC 18.4 H (3.8-10.6) k/uL RBC 3.54 L (4.30-5.90) m/uL Hgb 10.1 L (13.0-17.5) gm/dL Hct 31.9 L (39.0-53.0) % RDW 16.4 H (11.5-15.5) % Plt Count 87 L D (150-450) k/uL ABG pH (7.35-7.45) ABG pCO2 (35-45) mmHg ABG pO2 (83-108) mmHg ABG HCO3 (21-25) mmol/L ABG Total CO2 (19-24) mmol/L ABG O2 Saturation (94-97) % Sodium 147 H (137-145) mmol/L Chloride 116 H (98-107) mmol/L BUN 23 H (9-20) mg/dL Glucose 143 H (74-99) mg/dL POC Glucose (mg/dL) (75-99) mg/dL Calcium 5.5 L* (8.4-10.2) mg/dL Ionized Calcium Yuval 3.8 L (4.5-5.3) mg/dL 04/07/17 04/07/17 04/07/17 Range/Units 04:34 06:16 07:51 WBC (3.8-10.6) k/uL RBC (4.30-5.90) m/uL Hgb (13.0-17.5) gm/dL Hct (39.0-53.0) % RDW (11.5-15.5) % Plt Count (150-450) k/uL ABG pH 7.19 L* 7.30 L (7.35-7.45) ABG pCO2 59 H (35-45) mmHg ABG pO2 117 H 68 L (83-108) mmHg ABG HCO3 (21-25) mmol/L ABG Total CO2 (19-24) mmol/L ABG O2 Saturation 91.0 L (94-97) % Sodium (137-145) mmol/L Chloride (98-107) mmol/L BUN (9-20) mg/dL Glucose (74-99) mg/dL POC Glucose (mg/dL) 134 H (75-99) mg/dL Calcium (8.4-10.2) mg/dL Ionized Calcium Yuval (4.5-5.3) mg/dL 04/07/17 Range/Units 08:46 WBC (3.8-10.6) k/uL RBC (4.30-5.90) m/uL Hgb (13.0-17.5) gm/dL Hct (39.0-53.0) % RDW (11.5-15.5) % Plt Count (150-450) k/uL ABG pH (7.35-7.45) ABG pCO2 (35-45) mmHg ABG pO2 (83-108) mmHg ABG HCO3 (21-25) mmol/L ABG Total CO2 (19-24) mmol/L ABG O2 Saturation (94-97) % Sodium (137-145) mmol/L Chloride (98-107) mmol/L BUN (9-20) mg/dL Glucose (74-99) mg/dL POC Glucose (mg/dL) 165 H (75-99) mg/dL Calcium (8.4-10.2) mg/dL Ionized Calcium Yuval (4.5-5.3) mg/dL Microbiology - Last 24 Hours (Table) 04/01/17 21:10 Blood Culture - Preliminary Blood No Growth after 120 hours 04/01/17 21:46 Blood Culture - Preliminary Blood No Growth after 120 hours 04/01/17 21:54 Blood Culture - Preliminary Blood No Growth after 120 hours Assessment and Plan (1) Acute kidney injury Current Visit: Yes Status: Acute Code(s): N17.9 - ACUTE KIDNEY FAILURE, UNSPECIFIED SNOMED Code(s): 60199524 (2) Lactic acidosis Current Visit: Yes Status: Acute Code(s): E87.2 - ACIDOSIS SNOMED Code(s) : 93608714 (3) Septic shock due to Pseudomonas species Current Visit: Yes Status: Acute Code(s): A41.52 - SEPSIS DUE TO PSEUDOMONAS ; R65.21 - SEVERE SEPSIS WITH SEPTIC SHOCK SNOMED Code(s): 21525472 (4) Respiratory failure Current Visit: Yes Status: Acute Code(s): J96.90 - RESPIRATORY FAILURE, UNSP , UNSP W HYPOXIA OR HYPERCAPNIA SNOMED Code(s): 260730680 (5) Acute respiratory failure requiring reintubation Current Visit: Yes Status: Acute Code(s): J96.00 - ACUTE RESPIRATORY FAILURE , UNSP W HYPOXIA OR HYPERCAPNIA SNOMED Code(s): 465815308 (6) Gross hematuria Current Visit: Yes Status: Acute Code(s): R31.0 - GROSS HEMATURIA SNOMED Code(s): 113276364 (7) Paraplegia following spinal cord injury Current Visit: Yes Status: Acute Code(s): G82.20 - PARAPLEGIA, UNSPECIFIED SNOMED Code(s): 71335927 (8) Renal calculus, bilateral Current Visit: Yes Status: Acute Code(s): N20.0 - CALCULUS OF KIDNEY SNOMED Code(s): 53715076 (9) Seizure Current Visit: Yes Status: Acute Code(s): R56.9 - UNSPECIFIED CONVULSIONS SNOMED Code(s): 83340858 (10) Septic shock Current Visit: Yes Status: Acute Code(s): A41.9 - SEPSIS, UNSPECIFIED ORGANISM; R65.21 - SEVERE SEPSIS WITH SEPTIC SHOCK SNOMED Code(s): 79184900 (11) Toxic metabolic encephalopathy Current Visit: Yes Status: Acute Code(s): G92 - TOXIC ENCEPHALOPATHY SNOMED Code(s): 050431754 (12) Uremia Current Visit: Yes Status: Acute Code(s): N19 - UNSPECIFIED KIDNEY FAILURE SNOMED Code(s): 33862831 (13) Failed or difficult intubation, sequela Current Visit: Yes Status: Acute Code(s): T88.4XXS - FAILED OR DIFFICULT INTUBATION, SEQUELA SNOMED Code(s): 092512096 Plan: Plan dated 04/06/2017 The patient will be given a trial of extubation. Labs x-rays a medications are all reviewed. The patient had reasonable weaning parameters on fiber pressure- support 5 CPAP. He did have a cuff leak. Chest x-ray stable. He is off the vasopressin. Remains on the norepinephrine is much lower dose. Prognosis is guarded. We'll continue to follow. Labs x-rays a medications are all reviewed. Plan dated 04/07/2017 The R line was discontinued because it was nonfunctional. The patient's IVs will be turned down to 75 mL an hour. The patient's tube feeds will be resumed. We'll do blood arterial blood gases are fine for now. A PICC line will be placed. We'll put an order in for possible tracheostomy. We will discontinue the Solu-Cortef as it did not really help very much with blood pressure support. We will continue the norepinephrine. Prognosis is very guarded/poor Time with Patient: Greater than 30
[2017-04-07] MEDS: CHLORHEXIDINE GLUCONATE 15 ML CUP MUCOUS MEM SCH ×2 (10:05→20:23)
[2017-04-07] MEDS: SODIUM CHLORIDE 0.9% 250 ML with HYDROCORTISONE SUCCINATE 250 MG IV SCH ×2 (10:11)
[2017-04-07] MEDS: levETIRAcetam IV 1,000 MG in SALINE 1 100ML.BAG IVPB SCH ×2 (10:15→20:23)
[2017-04-07] MEDS: BISACODYL 10 MG SUPP RECTAL SCH (11:52)
--- NOTE | 2017-04-07 11:55 | P.GSCN ---
History of Present Illness Consult date: 04/07/17 Reason for Consult: Tracheostomy and percutaneous endoscopic gastrostomy tube placement. Requesting physician: Kike Pillai History of present illness: This is a 51-year-old quadriplegic gentleman who is followed by Dr. Marito Owens on an outpatient basis. The patient has multiple medical problems including a hockey injury 32 years ago leaving him a quadriplegic and been bedridden since the injury. He also has a history of GERD, kidney stones, and intermittent urinary retention with remote history of straight cathing at home, recently the patient has been using a condom catheter. On 03/29/2017 the patient presented via EMS to the emergency department here at [facility] with complaints of urinary retention, a feeling of pressure to his lower abdomen, iker blood in his urine and passing blood clots. The patient denied any fever , chills, nausea, vomiting, diarrhea, constipation, or pain except to his lower abdomen. His lab work in the emergency department showed a WBC count of 12.7, hemoglobin of 17.1 platelet count of 272, sodium 129, potassium 3.4, venous CO 19, BUN 106 and creatinine 2.05. His urinalysis demonstrated dark red urine and a WBC count of 31. A urine culture was sent and finalized which showed Enterobacter aerogenes and Pseudomonas aeruginosa. The patient was subsequently started on antibiotics and was admitted to the hospital for further evaluation and treatment. On 03/29/2017 the patient also underwent a computed tomography scan of his abdomen and pelvis which demonstrated a multinodular thickening of his bladder which could not exclude underlying malignancy, and dilated ureters without obstructing calculus. Due to the CT scan results, his complaints of urinary retention and hematuria, Dr. Oliver from urology was consulted. Subsequently on 03/31/2017 the patient underwent a cystoscopy with irrigation of blood clots from the bladder. During the cystoscopy the patient was found to have hematuria most likely related to hemorrhagic cystitis. Neurology was also consulted due to a possible seizure. The patient had a period of hypotension and unresponsiveness and the patient was subsequently intubated and placed on mechanical ventilator support. The patient was extubated on 04/06/2017 and was placed on BiPAP support although was subsequently reintubated on 04/07/2017 at around 7:15 AM. Subsequently due to the patient being reintubated, it was felt the patient may require a tracheostomy and a percutaneous endoscopic gastrostomy tube to be placed for assistance in weaning the patient from the mechanical ventilator. Review of Systems A 14 point review of systems was completed and was negative except as mentioned in HPI. The information was collected from his caretakers, his mother and brother sitting at the bedside. Past Medical History Past Medical History: GERD/Reflux, Skin Disorder (seborrheic dermatitis, history of ulcers to his coccyx.) Additional Past Medical History / Comment(s): Quadriplegic due to hockey- related C5 through C6 injury. History of kidney stones. 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 Cystoscopy with irrigation of blood clots from bladder on 03/31/2017. Past Anesthesia/Blood Transfusion Reactions: No Reported Reaction Past Psychological History: No Psychological Hx Reported Smoking Status: Never smoker Past Alcohol Use History: Rare Past Drug Use History: None Reported - Past Family History Mother Family Medical History: No Reported History Father Family Medical History: No Reported History Medications and Allergies Home Medications Medication Instructions Recorded Confirmed Type Lansoprazole [Prevacid] 15 mg PO DAILY 03/29/17 03/29/17 History Allergies Allergy/AdvReac Type Severity Reaction Status Date / Time Sulfa (Sulfonamide Allergy Rash/Hives Verified 03/29/17 18:49 Antibiotics) Surgical - Exam Vital Signs Temp Pulse Resp Pulse Ox 97.9 F 114 H 16 97 03/29/17 18:15 03/29/17 18:15 03/29/17 18:15 03/29/17 18:15 - General no distress (With mechanical ventilator support), no pain, chronically ill, obese (Morbidly obese) - Eyes PERRL, normal ocular movement - ENT Endotracheal tube in tact with mechanical ventilator support. normal pinna, normal nares, normal mucosa, no hearing loss, no congestion - Neck no masses, no bruits, trachea midline, no venous distension - Respiratory Lungs sounds essentially clear throughout, diminished with bilateral bases. No wheezes, no crackles no rhonchi. Respirations are symmetrical and nonlabored with mechanical ventilator support. Current ventilator settings are as follows : AC 22, TV 450, FiO2 50%, PEEP 5. Oxygen saturations are 100% with FiO2 50%. - Cardiovascular Regular rhythm and rate. S1 and S2 present, negative for S3, gallop or murmur. Bedside telemetry showing normal sinus rhythm heart rate 66. +3 weeping edema to his bilateral lower extremities and scrotum. Sequential compression devices in place was bilateral lower extremities. - Abdomen Abdomen is soft, distended and nontender. Active bowel sounds all 4 abdominal quadrants. Last bowel movement on 04/06/2017. Morbidly obese. No guarding or rigidity. - Genitourinary Mclaughlin catheter in place for accurate I&O and urine retention. Draining clear yellow urine. Urine output adequate. - Rectum Deferred - Integumentary Seborrheic dermatitis. no rash, no growths, no abnormal pigmentation - Neurologic Patient is a quadriplegic, otherwise no focal neurological deficits. - Musculoskeletal Quadriplegic. - Psychiatric Patient is currently sedated with Diprivan at 20 mcg/kg/m. He is following all verbal commands appropriately,nodding his head yes and no appropriately to questions. oriented to person Results - Labs 04/07/17 04:23 04/07/17 04:23 Abnormal Lab Results - Last 24 Hours (Table) 03/31/17 04/06/17 04/06/17 Range/Units 18:18 12:20 14:37 WBC (3.8-10.6) k/uL RBC (4.30-5.90) m/uL Hgb (13.0-17.5) gm/dL Hct (39.0-53.0) % RDW (11.5-15.5) % Plt Count (150-450) k/uL ABG pH 7.22 L (7.35-7.45) ABG pCO2 (35-45) mmHg ABG pO2 178 H (83-108) mmHg ABG HCO3 14 L (21-25) mmol/L ABG Total CO2 15 L (19-24) mmol/L ABG O2 Saturation 99.0 H (94-97) % Sodium (137-145) mmol/L Chloride (98-107) mmol/L BUN (9-20) mg/dL Glucose (74-99) mg/dL POC Glucose (mg/dL) 114 H 109 H (75-99) mg/dL Calcium (8.4-10.2) mg/dL Ionized Calcium Yuval (4.5-5.3) mg/dL 04/06/17 04/07/17 04/07/17 Range/Units 16:22 00:21 04:23 WBC (3.8-10.6) k/uL RBC (4.30-5.90) m/uL Hgb (13.0-17.5) gm/dL Hct (39.0-53.0) % RDW (11.5-15.5) % Plt Count (150-450) k/uL ABG pH (7.35-7.45) ABG pCO2 (35-45) mmHg ABG pO2 (83-108) mmHg ABG HCO3 (21-25) mmol/L ABG Total CO2 (19-24) mmol/L ABG O2 Saturation (94-97) % Sodium (137-145) mmol/L Chloride (98-107) mmol/L BUN (9-20) mg/dL Glucose (74-99) mg/dL POC Glucose (mg/dL) 101 H 118 H (75-99) mg/dL Calcium (8.4-10.2) mg/dL Ionized Calcium Yuval 3.8 L (4.5-5.3) mg/dL 04/07/17 04/07/17 04/07/17 Range/Units 04:23 04:23 04:34 WBC 18.4 H (3.8-10.6) k/uL RBC 3.54 L (4.30-5.90) m/uL Hgb 10.1 L (13.0-17.5) gm/dL Hct 31.9 L (39.0-53.0) % RDW 16.4 H (11.5-15.5) % Plt Count 87 L D (150-450) k/uL ABG pH (7.35-7.45) ABG pCO2 (35-45) mmHg ABG pO2 (83-108) mmHg ABG HCO3 (21-25) mmol/L ABG Total CO2 (19-24) mmol/L ABG O2 Saturation (94-97) % Sodium 147 H (137-145) mmol/L Chloride 116 H (98-107) mmol/L BUN 23 H (9-20) mg/dL Glucose 143 H (74-99) mg/dL POC Glucose (mg/dL) 134 H (75-99) mg/dL Calcium 5.5 L* (8.4-10.2) mg/dL Ionized Calcium Yuval (4.5-5.3) mg/dL 04/07/17 04/07/17 04/07/17 Range/Units 06:16 07:51 08:46 WBC (3.8-10.6) k/uL RBC (4.30-5.90) m/uL Hgb (13.0-17.5) gm/dL Hct (39.0-53.0) % RDW (11.5-15.5) % Plt Count (150-450) k/uL ABG pH 7.19 L* 7.30 L (7.35-7.45) ABG pCO2 59 H (35-45) mmHg ABG pO2 117 H 68 L (83-108) mmHg ABG HCO3 (21-25) mmol/L ABG Total CO2 (19-24) mmol/L ABG O2 Saturation 91.0 L (94-97) % Sodium (137-145) mmol/L Chloride (98-107) mmol/L BUN (9-20) mg/dL Glucose (74-99) mg/dL POC Glucose (mg/dL) 165 H (75-99) mg/dL Calcium (8.4-10.2) mg/dL Ionized Calcium Yuval (4.5-5.3) mg/dL Microbiology - Last 24 Hours (Table) 04/01/17 21:10 Blood Culture - Preliminary Blood No Growth after 120 hours 04/01/17 21:46 Blood Culture - Preliminary Blood No Growth after 120 hours 04/01/17 21:54 Blood Culture - Preliminary Blood No Growth after 120 hours Diabetes panel 04/06/17 04/07/17 Range/Units 14:40 04:23 Sodium 147 H (137-145) mmol/L Potassium 4.0 3.9 (3.5-5.1) mmol/L Chloride 116 H (98-107) mmol/L Carbon Dioxide 24 (22-30) mmol/L BUN 23 H (9-20) mg/dL Creatinine 0.80 (0.66-1.25) mg/dL Glucose 143 H (74-99) mg/dL Calcium 5.5 L* (8.4-10.2) mg/dL Calcium panel 04/07/17 04/07/17 Range/Units 04:23 04:23 Calcium 5.5 L* (8.4-10.2) mg/dL Ionized Calcium Yuval 3.8 L (4.5-5.3) mg/dL Phosphorus 3.7 (2.5-4.5) mg/dL Pituitary panel 04/06/17 04/07/17 Range/Units 14:40 04:23 Sodium 147 H (137-145) mmol/L Potassium 4.0 3.9 (3.5-5.1) mmol/L Chloride 116 H (98-107) mmol/L Carbon Dioxide 24 (22-30) mmol/L BUN 23 H (9-20) mg/dL Creatinine 0.80 (0.66-1.25) mg/dL Glucose 143 H (74-99) mg/dL Calcium 5.5 L* (8.4-10.2) mg/dL Adrenal panel 04/06/17 04/07/17 Range/Units 14:40 04:23 Sodium 147 H (137-145) mmol/L Potassium 4.0 3.9 (3.5-5.1) mmol/L Chloride 116 H (98-107) mmol/L Carbon Dioxide 24 (22-30) mmol/L BUN 23 H (9-20) mg/dL Creatinine 0.80 (0.66-1.25) mg/dL Glucose 143 H (74-99) mg/dL Calcium 5.5 L* (8.4-10.2) mg/dL - Imaging Chest x-ray: report reviewed, image reviewed CT scan - abdomen: report reviewed, image reviewed CT scan - pelvis: report reviewed, image reviewed Assessment and Plan (1) Acute urinary tract infection Current Visit: Yes Status: Acute Code(s): N39.0 - URINARY TRACT INFECTION, SITE NOT SPECIFIED SNOMED Code(s): 448001502 (2) History of quadriplegia Current Visit: Yes Status: Acute Code(s): Z86.69 - PERSONAL HISTORY OF DIS OF THE NERVOUS SYS AND SENSE ORGANS SNOMED Code(s): 127745087 (3) History of nephrolithiasis Current Visit: Yes Status: Acute Code(s): Z87.442 - PERSONAL HISTORY OF URINARY CALCULI SNOMED Code(s): 028249218 (4) GERD (gastroesophageal reflux disease) Current Visit: Yes Status: Acute Code(s): K21.9 - GASTRO-ESOPHAGEAL REFLUX DISEASE WITHOUT ESOPHAGITIS SNOMED Code(s): 859778895 (5) Acute respiratory failure requiring reintubation Current Visit: Yes Status: Acute Code(s): J96.00 - ACUTE RESPIRATORY FAILURE , UNSP W HYPOXIA OR HYPERCAPNIA SNOMED Code(s): 468772810 (6) Lactic acidosis Current Visit: Yes Status: Acute Code(s): E87.2 - ACIDOSIS SNOMED Code(s) : 16267627 (7) Seizure Current Visit: Yes Status: Acute Code(s): R56.9 - UNSPECIFIED CONVULSIONS SNOMED Code(s): 88910917 (8) Septic shock due to Pseudomonas species Current Visit: Yes Status: Acute Code(s): A41.52 - SEPSIS DUE TO PSEUDOMONAS ; R65.21 - SEVERE SEPSIS WITH SEPTIC SHOCK SNOMED Code(s): 38644522 (9) Toxic metabolic encephalopathy Current Visit: Yes Status: Acute Code(s): G92 - TOXIC ENCEPHALOPATHY SNOMED Code(s): 747637526 Plan: Patient was seen and examined, his chart and diagnostics were reviewed. His case was discussed with Dr. Will Castillo. The patient will be scheduled for a tracheostomy and percutaneous endoscopic gastrostomy tube placement on Monday , 04/11/2016. The patient will be placed on an nothing by mouth status after midnight on 04/11/2016. The patient's mother and brother have been updated on his care and her questions have been answered to the best of my ability. Thank you Dr. Pillai for this consult and we look for to working with you in the care of your patient. Time with Patient: Greater than 30
[2017-04-07] MEDS ORDERED: ceFAZolin 3 GM in SODIUM CHLORIDE 0.9% 100 ML IVPB ONE (12:00)
[2017-04-07 12:13] LABS: Glucose,Whole Blood 150 mg/dL (75-99)
[2017-04-07] MEDS ORDERED: LIDOCAINE 2% INJ 20 MG/ML SQ ONE (13:29)
--- NOTE | 2017-04-07 13:30 | P.PN ---
Subjective Progress Note Date: 04/07/17 The patient is a quadriplegic in the hospital with a urinary tract infection with sepsis requiring pressor agents and intubation. He is still on the pressor agents and intubated. He is still on antibiotics. Tracheostomy is being considered. Objective - Vital Signs Vital signs: Vital Signs Temp 97.9 F 04/07/17 12:00 Pulse 71 04/07/17 13:00 Resp 22 04/07/17 13:00 BP 103/52 04/07/17 13:00 Pulse Ox 100 04/07/17 13:00 Intake & Output 04/06/17 04/07/17 04/07/17 18:59 06:59 18:59 Intake Total 2719.844 2800.189 1176.157 Output Total 1675 1105 645 Balance 4462.581 1644.189 531.157 Weight 143.3 kg Intake: IV 2436 2670.5 590.5 Dextrose 5%-0.45% NaCl 1, 2000 575 000 ml @ 75 mls/hr IV . [id number] [facility] Rx#:[id number] Meropenem 1 gm In Sodium 200 Chloride 0.9% 100 ml @ 200 mls/hr IVPB Q8H [facility] Rx#:[id number] Pressure Bag 36 33 3 Sodium Chloride 0.45% 1, 2400 200 000 ml @ 200 mls/hr IV . Q5H [facility] Rx#:[id number] Sodium Chloride 0.9% 250 137.5 12.5 ml @ 12.5 MG/HR 12.5 mls/ hr IV .Q20H [facility]DA with Hydrocortisone Succinate 250 mg Rx#:[id number] levETIRAcetam IV 1,000 mg 100 In Saline 1 100ml.bag @ 400 mls/hr IVPB Q12HR [facility] Rx#:[id number] Intake, IV Titration 226.844 129.689 585.657 Amount Magnesium Sulfate-D5w Pmx 200 1 gm In Dextrose/Water 1 100ml.bag @ 100 mls/hr IVPB Q1H [facility]DA Rx#: [id number] Meropenem 1 gm In Sodium 100 Chloride 0.9% 100 ml @ 200 mls/hr IVPB Q8H [facility]DA Rx#:[id number] Norepinephrin 16 mg-0.9% 226.844 129.689 85.657 Ns Pmx 16 mg In 250 ml @ Titrate IV .Q0M [facility] Rx#: [id number] Potassium Chloride 20 meq 200 In Water For Injection 1 100ml.bag @ 50 mls/hr IVPB ONCE ONE Rx#: [id number] Tube Feeding 57 Output: Urine 1675 1105 645 Other: Voiding Method Indwelling Catheter Indwelling Catheter Indwelling Catheter ABP, PAP, CO, CI - Last Documented Arterial Blood Pressure 108/53 - Labs CBC & Chem 7: 04/07/17 04:23 04/07/17 04:23 Labs: Abnormal Lab Results - Last 24 Hours (Table) 04/06/17 04/06/17 04/07/17 Range/Units 14:37 16:22 00:21 WBC (3.8-10.6) k/uL RBC (4.30-5.90) m/uL Hgb (13.0-17.5) gm/dL Hct (39.0-53.0) % RDW (11.5-15.5) % Plt Count (150-450) k/uL ABG pH (7.35-7.45) ABG pCO2 (35-45) mmHg ABG pO2 (83-108) mmHg ABG O2 Saturation (94-97) % Sodium (137-145) mmol/L Chloride (98-107) mmol/L BUN (9-20) mg/dL Glucose (74-99) mg/dL POC Glucose (mg/dL) 109 H 101 H 118 H (75-99) mg/dL Calcium (8.4-10.2) mg/dL Ionized Calcium Yuval (4.5-5.3) mg/dL 04/07/17 04/07/17 04/07/17 Range/Units 04:23 04:23 04:23 WBC 18.4 H (3.8-10.6) k/uL RBC 3.54 L (4.30-5.90) m/uL Hgb 10.1 L (13.0-17.5) gm/dL Hct 31.9 L (39.0-53.0) % RDW 16.4 H (11.5-15.5) % Plt Count 87 L D (150-450) k/uL ABG pH (7.35-7.45) ABG pCO2 (35-45) mmHg ABG pO2 (83-108) mmHg ABG O2 Saturation (94-97) % Sodium 147 H (137-145) mmol/L Chloride 116 H (98-107) mmol/L BUN 23 H (9-20) mg/dL Glucose 143 H (74-99) mg/dL POC Glucose (mg/dL) (75-99) mg/dL Calcium 5.5 L* (8.4-10.2) mg/dL Ionized Calcium Yuval 3.8 L (4.5-5.3) mg/dL 04/07/17 04/07/17 04/07/17 Range/Units 04:34 06:16 07:51 WBC (3.8-10.6) k/uL RBC (4.30-5.90) m/uL Hgb (13.0-17.5) gm/dL Hct (39.0-53.0) % RDW (11.5-15.5) % Plt Count (150-450) k/uL ABG pH 7.19 L* 7.30 L (7.35-7.45) ABG pCO2 59 H (35-45) mmHg ABG pO2 117 H 68 L (83-108) mmHg ABG O2 Saturation 91.0 L (94-97) % Sodium (137-145) mmol/L Chloride (98-107) mmol/L BUN (9-20) mg/dL Glucose (74-99) mg/dL POC Glucose (mg/dL) 134 H (75-99) mg/dL Calcium (8.4-10.2) mg/dL Ionized Calcium Yuval (4.5-5.3) mg/dL 04/07/17 04/07/17 Range/Units 08:46 12:11 WBC (3.8-10.6) k/uL RBC (4.30-5.90) m/uL Hgb (13.0-17.5) gm/dL Hct (39.0-53.0) % RDW (11.5-15.5) % Plt Count (150-450) k/uL ABG pH (7.35-7.45) ABG pCO2 (35-45) mmHg ABG pO2 (83-108) mmHg ABG O2 Saturation (94-97) % Sodium (137-145) mmol/L Chloride (98-107) mmol/L BUN (9-20) mg/dL Glucose (74-99) mg/dL POC Glucose (mg/dL) 165 H 150 H (75-99) mg/dL Calcium (8.4-10.2) mg/dL Ionized Calcium Yuval (4.5-5.3) mg/dL Microbiology - Last 24 Hours (Table) 04/01/17 21:10 Blood Culture - Preliminary Blood No Growth after 120 hours 04/01/17 21:46 Blood Culture - Preliminary Blood No Growth after 120 hours 04/01/17 21:54 Blood Culture - Preliminary Blood No Growth after 120 hours
--- NOTE | 2017-04-07 14:16 | XR ---
EXAMINATION TYPE: XR chest 1V portable DATE OF EXAM: 04/07/2017 COMPARISON: Prior chest x-ray 04/07/2017 HISTORY: PICC line placement TECHNIQUE: Single frontal view of the chest is obtained. FINDINGS: There is been interval placement of right-sided PICC line, distal tip is overlying the reg ion of the cavoatrial junction. Patient is markedly rotated. Endotracheal and NG tube in appropriate position. There are overlying cardiac leads. IMPRESSION: No evident complication status post PICC line placement.
--- NOTE | 2017-04-07 14:35 | IR ---
EXAMINATION TYPE: IR cvc insert >=5 years DATE OF EXAM: 04/07/2017 COMPARISON: NONE HISTORY: Metastatic disease, needs long-term intravenous access for therapy FINDINGS: Maximal barrier technique was utilized. Following failed advancement of wire within the rig ht basilic vein attempt was then made within the right brachial vein. The skin overlying the right br achial vein was localized with ultrasound and noted to be compressible and patent by ultrasound. An ultrasound image was obtained and submitted on patient's chart. Sterile technique utilized with the u ltrasound machine. The skin overlying was prepped and draped and Lidocaine used for local anesthesia. A skin maryann was made with a scalpel. Access was gained to the vein under direct ultrasound guidanc e with a 21-gauge needle and a 0.018 inch wire was advanced. Access site was dilated with a peel-carol y sheath and the catheter tailored to length. Catheter advanced centrally and a post procedure chest x-ray verified placement with the tip at the cavoatrial junction. Catheter was fixed to the skin wi th suture and a sterile dressing placed. Hemostasis achieved and the catheter was aspirated and flus hed with sterile saline. The patient remained in stable condition. IMPRESSION: STATUS POST ULTRASOUND GUIDED PICC LINE PLACEMENT, READY FOR USE. THIS PROCEDURE WAS PER FORMED BY THE UNDERSIGNED.
[2017-04-07 17:39] LABS: Glucose,Whole Blood 97 mg/dL (75-99)
[2017-04-07 19:55] LABS: Glucose,Whole Blood 104 mg/dL (75-99)
[2017-04-07] MEDS: PROPOFOL 1,000 MG in EMPTY BAG 1 BAG IV SCH (20:24)
--- NOTE | 2017-04-07 21:09 | PN ---
PROGRESS NOTE DATE OF SERVICE: 04/07/2017. HISTORY: Patient is being seen for Dr. Owens. The patient remains in the ICU. The patient has been re-intubated and remains on the vent. VITAL SIGNS: Temperature 97.9, pulse 75, respiration 22, blood pressure 130/65. GENERAL: The patient is sedated, ET and NG tube in place. HEENT: Atraumatic, normocephalic. Buccal mucosa is fair. NECK: Supple. No goiter, lymphadenopathy. JVD is negative. HEART: Regular rate and rhythm without any murmurs gallop rhythm. ABDOMEN: Soft, nontender, nondistended. Bowel sounds positive. LUNGS: Scattered rhonchi. No wheezes. EXTREMITIES: No edema, clubbing, cyanosis. SKIN: Without any rashes or pigmentation. NEUROLOGIC: Could not be done. MUSCULOSKELETAL: The patient is sedated. LABS: CBC, white blood count of 18.4, hemoglobin 10.1, hematocrit 31.9, and platelet count of 87,000. Chemical profile, sodium 147, potassium 3.9, chloride 116, bicarb 24, BUN 23, creatinine 0.8, glucose 143. ASSESSMENT: 1. Acute vent-dependent respiratory failure, requiring reintubation. 2. Acute renal injury. 3. Septic shock due to Pseudomonas. 4. Lactic acidosis. 5. Gross hematuria. The patient remains in ICU remains, remains intubated. Dough Mixer Operator is following. Further treatment recommendations per the batch tank controller. MMODL / IJN: [id number] /
[2017-04-08 00:14] LABS: Glucose,Whole Blood 93 mg/dL (75-99)
[2017-04-08] MEDS: INSULIN ASPART 100 UNIT/ML 1 ML 10 ML VIAL SQ SCH ×4 (00:28→17:03)
[2017-04-08] MEDS: PROPOFOL 1,000 MG in EMPTY BAG 1 BAG IV SCH ×3 (02:22→23:54)
[2017-04-08] MEDS: IPRATROPIUM-ALBUTEROL 3 ML NEB INHALATION SCH ×6 (03:29→23:29)
[2017-04-08 04:02] LABS: Glucose,Whole Blood 91 mg/dL (75-99)
[2017-04-08] MEDS: MEROPENEM 1 GM in SODIUM CHLORIDE 0.9% 100 ML IVPB SCH ×3 (04:03→20:51)
[2017-04-08 04:14] LABS: Anisocytosis Slight; Basophils # (A) 0.1 k/uL (0-0.2); Basophils % (A) 0 %; Eosinophils # (A) 0.1 k/uL (0-0.7); Eosinophils % (A) 0 %; HCT 29.8 % (39.0-53.0); HGB 9.3 gm/dL (13.0-17.5); Lymphocytes # (A) 2.3 k/uL (1.0-4.8); Lymphocytes % (A) 16 %; MCH 28.1 pg (25.0-35.0); MCHC 31.3 g/dL (31.0-37.0); MCV 89.6 fL (80.0-100.0); Mean Platelet Volume 9.9; Monocytes # (A) 0.6 k/uL (0-1.0); Monocytes % (A) 4 %; Neutrophils # (A) 10.9 k/uL (1.3-7.7); Neutrophils % (A) 77 %; Platelet Count 111 k/uL (150-450); RBC 3.32 m/uL (4.30-5.90); RDW 18.4 % (11.5-15.5); WBC 14.1 k/uL (3.8-10.6)
[2017-04-08 04:29] LABS: Ionized Calcium 3.8 mg/dL (4.5-5.3)
[2017-04-08 05:07] LABS: Anion Gap 5 mmol/L; Blood Urea Nitrogen 20 mg/dL (9-20); Carbon Dioxide 26 mmol/L (22-30); Chloride 116 mmol/L (98-107); Glucose 85 mg/dL (74-99); Magnesium 1.7 mg/dL (1.6-2.3); Phosphorus 2.4 mg/dL (2.5-4.5); Sodium 147 mmol/L (137-145)
[2017-04-08 05:11] LABS: ABG Base Excess -3.3 mmol/L; ABG HCO3 21 mmol/L (21-25); ABG PCO2 34 mmHg (35-45); ABG PO2 62 mmHg (83-108); ABG TCO2 22 mmol/L (19-24)
[2017-04-08 05:32] LABS: Calcium 5.6 mg/dL (8.4-10.2)
[2017-04-08] MEDS ORDERED: POTASSIUM CHLORIDE 20 MEQ in WATER FOR INJECTION 1 100ML.BAG IVPB ONE (06:00)
[2017-04-08] MEDS: MAGNESIUM SULFATE-D5W PMX 1 GM in DEXTROSE/WATER 1 100ML.BAG IVPB SCH ×2 (06:01→08:41)
--- NOTE | 2017-04-08 06:49 | XR ---
EXAM: XR Chest, 1 View CLINICAL HISTORY: Reason: shortness of breath TECHNIQUE: Frontal view of the chest. COMPARISON: 04/07/2017. FINDINGS: Lungs: Stable opacity overlying the left mid to lower hemithorax. New opacity in the right upper hemithorax may be partially due to atelectasis and effusion. Pleural space: There is a right pleural effusion. No pneumothorax. Heart: Stable cardiomediastinal silhouette. Mediastinum: See above. Bones/joints: Unremarkable. Tubes, lines and devices: Stable endotracheal tube. Stable enteric tube. Proximal port near the GE junction. Stable right-sided PICC. IMPRESSION: 1. Stable support lines and tubes. 2. Right pleural effusion. New opacity at the right upper hemithorax may be due to atelectasis/effusion. 3. Stable opacity overlying the left mid to lower hemithorax. May represent atelectasis/airspace disease/effusion
[2017-04-08] MEDS ORDERED: POTASSIUM PHOSPHATE 10 MMOL in SODIUM CHLORIDE 0.9% 250 ML IV ONE (07:00)
[2017-04-08 07:58] LABS: Glucose,Whole Blood 102 mg/dL (75-99)
[2017-04-08] MEDS: DEXTROSE 5%-0.45% NACL 1,000 ML IV SCH ×2 (08:41→17:04)
[2017-04-08] MEDS: PANTOPRAZOLE 40 MG/10 ML VIAL IV SCH (08:42)
[2017-04-08] MEDS: levETIRAcetam IV 1,000 MG in SALINE 1 100ML.BAG IVPB SCH ×2 (08:42→20:56)
[2017-04-08] MEDS: CHLORHEXIDINE GLUCONATE 15 ML CUP MUCOUS MEM SCH ×2 (08:42→20:42)
--- NOTE | 2017-04-08 09:04 | PN ---
PROGRESS NOTE DATE OF SERVICE: 04/07/2017. REASON FOR FOLLOWUP: Gram-negative urinary sepsis. INTERVAL HISTORY: The patient is afebrile, however, the patient went to respiratory distress this morning and was unable to clear his secretions and is getting re-intubated. He is still requiring about 10 mics of Levophed for his pressor support. The blood pressure has been relatively on the high side. Has been tolerating his tube feeds. No diarrhea. EXAMINATION: Blood pressure 109/50 with a pulse of 53, temperature of 97.7, he is 97% on 50% FiO2. GENERAL DESCRIPTION: He is a middle-aged male lying in bed in no distress. RESPIRATORY SYSTEM: Unlabored breathing. Clear to auscultation anteriorly. HEART: S1, S2. Regular rate and rhythm. ABDOMEN: No tenderness. LABS: Hemoglobin is 10.1, white count of 18.4, BUN of 23, creatinine 0.80. Blood culture repeat has been negative so far. DIAGNOSTIC IMPRESSION AND PLAN: Patient with Enterobacter sepsis secondary to urinary source. Urine culture showing Pseudomonas aeruginosa and Citrobacter. Did have a resistant pattern, as patient had be maintained on meropenem that will be continued for now. Adjust antibiotic further based on clinical response. Continue supportive care. Family present at bedside. Their questions were answered. MMODL / IJN: [id number] /
[2017-04-08] MEDS: NOREPINEPHRIN 16 MG-0.9%NS PMX 16 MG/250 ML ML IV SCH ×2 (10:00→15:18)
--- NOTE | 2017-04-08 11:46 | P.PN ---
Subjective Progress Note Date: 04/08/17 Principal diagnosis: Acute septic shock secondary to acute urinary tract infection, cystitis. This is a 51-year-old white male, paraplegic, this is related to previous hockey accident and cervical spine injury at age 18. 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 Patient had external sphincterotomy in 1990 and 1994, and has been managed with an exdwelling catheter. In the last 2 weeks, the patient has been noticing dark color urine with some odor. On 03/28 patient was noticing some chills, and on the morning of 03/29 he developed gross hematuria but he was able to void. Later on the patient was passing clots, and he was unable to void. He developed significant suprapubic discomfort, and presented to the ER for evaluation. Upon evaluation the patient was noted to have slight leukocytosis, and renal failure with a BUN of [address] of the abdomen and pelvis showed bilateral nonobstructive renal calculi, and bilateral atrophy of the renal parenchyma. His bladder was noted to be distended, and question the possibility of bladder mass. Patient was started on Levaquin for treatment of urinary tract infection, and he was seen by urology on consultation were in the patient had cystoscopy, and he was found to have hemorrhagic cystitis. The procedure was done on 03/31/2017. Yesterday, in p.m., patient developed an episode of unresponsiveness, patient was hypotensive, nursing staff felt he may have had a seizure, hence he was treated with Keppra, patient was unable to protect his airways, and I was notified about the patient at that time. Patient was given fluid boluses for hypotension, started on levo fed, and later on vasopressin was started. Patient was sent for a CT of the brain which came back negative for CVA. And he was later transferred back to the ICU were and we determined that the patient has a clear cut picture of septic shock from his urinary tract infection which turned out to be secondary to Enterobacter species. Patient was already on Levaquin, this was discontinued and he was placed on Zosyn and Merrem. Overnight, the patient remained relatively hypotensive in spite of significant high doses of norepinephrine, and vasopressin was later started. Presently the patient is on 75 mics of norepinephrine, and he is on 0.05 units of vasopressin. Blood pressure is marginal, many fluid boluses were given, and I believe he received over 10 L of fluids. His urine output has been excellent and he seems to have a polyuria picture. Renal functioning seems to be significantly improved in the last 24 hours. Lactic acid remains high this morning at 5.1. All his electrolytes were abnormal including low potassium which was corrected, calcium was also corrected, and his creatinine improved from 2.36 down to 1.50. Urine cultures were noted, but no blood cultures have been noted so far. Today I saw the patient in the ICU, remains on mechanical ventilation, his ventilator settings are tidal volume of 500, assist control rate of 20, FiO2 is down to 50%, and PEEP is at 5. ABG showed a pO2 of 136 pCO2 of 31 pH of 7.23, hence the patient was given more bicarb, and kept on the bicarb drip with 3 A of bicarb in 1 L of D5W running at 1 25 mL per hour. In spite of all of this, the patient is on small dose of propofol, he is arousable, and follows simple instructions. Seems to be very appropriate. Neurology-yanez, the patient was given Keppra, and EEG was ordered, it is not certain whether the patient truly had a seizure or not. Patient was reevaluated today on 04/02/2017, remains on mechanical ventilation, same vent setting, however his FiO2 is decreased down to 45%, tidal volume remains at 500, assist control rate is at 20, and PEEP is at 5. ABG this morning showed a pO2 of 103 pCO2 of 33 pH of 7.40. Hence, down significantly on the sodium bicarb drip, The patient on IV fluids, patient still requiring significant fluid boluses to maintain an adequate mean arterial blood pressure. His urine output has been excellent, he is putting out almost 300 mL per hour. Patient continues to have leukocytosis with WBC count of 36.3 hemoglobin is 11.5. Renal profile is basically almost back to normal. And his acute kidney injury has resolved. Sodium is elevated, at 147, hence I changed his IV fluid 0.45 instead of 0.9. His electrolytes were noted to be abnormal, and these were all being corrected as per protocol. Chest x-ray continues to show retrocardiac consolidation, and small left pleural effusion. I was able to review an old x-ray from 2011, apparently had some chronic scarring in the left lower lobe, and some atelectasis in the left retrocardiac area, but not as pronounced as noted on this present x-ray from this admission. Patient remains on norepinephrine at 75 g, he is also on vasopressin at 0.05 units. Reevaluated today on 04/03/2017, patient remains on mechanical ventilation, same ventilator settings as noted above with FiO2 of 45% tidal volume of 500 assist control rate of 20 and PEEP of 5. ABG showed a pO2 of 79 pCO2 of 32 pH of 7.42 hence the sodium bicarb drip was discontinued. Lactic acid is responding but slowly and today's lactic acid is 3.9. More fluid boluses were given today, continues to have significant urine output, and patient had a positive balance of 2 L in the last 24 hours. Albumin will be given today, his potassium and calcium are being corrected as per protocol. Renal functioning remains normal. However WBC count is up to 42.4, hemoglobin is 10.3, platelets are down to 88,000, hence I have discontinued his Lovenox. One blood culture from the showed Enterobacter, another blood culture showed Enterobacter and nonhemolytic strep. The nonhemolytic strep is probably a contaminant. Patient was on vancomycin, doubt if we need to restart vancomycin at this point , patient is being followed by infectious disease, remains presently on Merrem and Zosyn to cover Enterobacter and Pseudomonas. Blood pressure-yanez, the patient remains on 45 mics of norepinephrine, and 0.05 units of vasopressin. We are in the process of titrating the norepinephrine down since the blood pressure seems to be holding better today than it was in the last couple of days. All meds were reviewed, patient also remains on propofol, relatively small dose to keep him slightly sedated, but the patient is arousable, and follows instructions. Chest x-ray continues to show left lower lobe retrocardiac opacity which is I believe chronic. Nutrition-yanez the patient seems to be tolerating tube feeding well via nasogastric tube. The patient is seen again today 04/04/2017 in follow-up in the intensive care unit. He remains intubated on the mechanical ventilator with settings of assist control mode at a rate of 20, tidal volume 500, FiO2 45%, PEEP of 5. Morning blood gases reveal pO2 of 100, pCO2 30, pH 7.41 with a mixed acid-base abnormality including respiratory alkalosis and metabolic acidosis. The patient 's cultures were positive for Enterobacter aerogenes and pseudomonas aeruginosa in the urine, Enterobacter aerogenes nonhemolytic strep in the blood. He remains on meropenem and vancomycin. He is also on norepinephrine at 25 mcg/m, vasopressin at 0.05 units per minute, propofol at 11 mcg/kg/m, insulin at 7.5 units per hour. He is being nourished with Vital HP at 57 mL per hour which is goal. He has a 0.45 normal saline at 200 mL's per hour. He is alert and oriented and nods his head appropriately. The patient is seen again today 04/05/2017 in follow-up in the intensive care unit. He remains intubated and on mechanical ventilator. Current settings assist-control mode of rate of 20, tidal volume 500, FiO2 40% and a PEEP of 5. Morning arterial blood gases revealed a pO2 of 113 on 45% FiO2, pCO2 35, pH 7.36. He remains alert and oriented following simple commands by nodding his head yes and no appropriately. He remains on norepinephrine at 9 mcg/m, vasopressin at 0.05 units per minute, propofol at 10 mcg/kg/m, hydrocortisone at 12.5 mg per hour, insulin at 0.5 units per hour. He has 0.45 normal saline at 200 MLS per hour. He is being nourished with Vital HP at 57 mL per hour which is goal. He is receiving flushes of 30 mL every 4 hours. He remains on meropenem. Progress note dated 04/06/2017 This is a 51-year-old male with a history of respiratory failure secondary to overwhelming sepsis and septic shock from a urinary tract infection secondary to Enterobacter Jameson reason pseudomonas aeruginosa. Blood cultures were also positive for Enterobacter around kidneys. The patient is doing relatively well. His FiO2 and PEEP levels are low. His blood gases are reasonable. His weaning parameters today were fine and were thinking about extubating the patient. In addition, the patient has a history of hypoxemic respiratory failure severe metabolic derangements including lactic acidemia secondary to sepsis previous history of paraplegia with neurogenic bladder acute kidney injury secondary to septic shock and acute tubular necrosis and a history of kidney stones. The patient has had multiple surgeries for skin grafts of pressure sores as well as previous sphincterotomy and lithotripsy for kidney stones. Again the patient seemed be doing relatively well today. We'll stop his propofol. Local had an empty stomach. We'll give him a CPAP/PSV trial. We 'll check a cuff leak. We will do a rapid shallow breathing index. Everything looks good, trial of extubation. Progress note dated 04/07/2017 This is a 51-year-old male with a history of respiratory failure secondary to overwhelming sepsis and septic shock from urinary tract infection secondary to Enterobacter as well as Pseudomonas. Blood cultures are also positive for Enterobacter. The patient was doing well yesterday and because he had good weaning parameters and a good blood gas and a good cuff leak, he was extubated. Apparently sometime after that, his respiratory status declined although I was not notified. Patient was placed on BiPAP at 12 and 5 and 50%. Sometime this morning, the patient's blood pressure got worse and the norepinephrine with continuing continuing to be increased. Finally, I was called by the nurses morning. The patient was up on the norepinephrine 2 18 mcg/m. Because of declining respiratory status and a poor blood gas showing significant metabolic acidosis, anesthesia was called and he was reintubated. The REAL ESTATE REPRESENTATIVE could not reintubate the patient. The patient apparently had a difficult airway. The patient will likely need a tracheostomy. The x-rays labs and medications are reviewed. Currently he is on the assist control mode rate of 22 tidal volume for 50 FiO2 50% PEEP of 5. Arterial blood gases show a PaO2 of 68, a PaCO2 of 44, and a pH of 7.3. He will need a PICC line. The art line is nonfunctional be discontinued. Again he was extubated on April 06 and reintubated on April 07. His IVs include a dextrose with half-normal saline at 200 mL an hour norepinephrine at 20 mcg/m, site Cortef at 12.5 mg an hour and propofol at 20 mics per kilogram per minute. We'll resume tube feeds. Most him to cut back his IV fluids as his chest x-ray shows if Fluid overload and through the course of his hospitalization, his receive lots of fluids. I will talk to the family about a tracheostomy. The patient is seen again today 04/08/2017 in follow-up in the intensive care unit. He remains sedated on to Jocelyn at 50 mcg/kg/m. He is continued on norepinephrine at 30 mcg/m. He has a D5 and half-normal saline at 75 mouth, as per hour. He is being nourished with Bryce HP at 40 miles per hour with a goal of 50 MLS per hour. He remains intubated and on the mechanical ventilator and assist control 22, tidal volume 450, FiO2 60% and a PEEP of 5. Morning blood gases on 80% FiO2 revealed a pO2 of 62, pCO2 of 34 and a pH of 7.4. Today 's chest x-ray reveals right pleural effusion and a new opacity in the right upper hemithorax secondary to atelectasis/effusion. There is a stable opacity overlying the left mid to lower hemithorax. Again most likely atelectasis/ effusion He did receive a PICC line. His urine was positive for Enterobacter and Pseudomonas. Blood cultures positive for Enterobacter. Follow-up blood cultures were negative. He remains on cefazolin and meropenem. The patient will most likely require tracheostomy tube placement on 04/11/[address] Castillo. Objective - Vital Signs Vital signs: Vital Signs Temp 98.4 F 04/08/17 08:00 Pulse 70 04/08/17 11:15 Resp 24 04/08/17 10:00 BP 87/48 04/08/17 10:00 Pulse Ox 100 04/08/17 10:00 Intake & Output 04/07/17 04/08/17 04/08/17 18:59 06:59 18:59 Intake Total 3828.827 2444.806 813.367 Output Total 1515 1410 270 Balance 136.157 614.806 543.367 Weight 143.3 kg 132.4 kg Intake: IV 965.5 1350 300 Dextrose 5%-0.45% NaCl 1, 950 900 150 000 ml @ 75 mls/hr IV . [id number] [facility] Rx#:[id number] Magnesium Sulfate-D5w Pmx 100 100 1 gm In Dextrose/Water 1 100ml.bag @ 100 mls/hr IVPB Q1H [facility] Rx#: [id number] Meropenem 1 gm In Sodium 200 Chloride 0.9% 100 ml @ 200 mls/hr IVPB Q8H [facility] Rx#:[id number] Potassium Chloride 20 meq 50 50 In Water For Injection 1 100ml.bag @ 50 mls/hr IVPB ONCE ONE Rx#: [id number] Pressure Bag 3 Sodium Chloride 0.9% 250 12.5 ml @ 12.5 MG/HR 12.5 mls/ hr IV .Q20H [facility]DA with Hydrocortisone Succinate 250 mg Rx#:[id number] levETIRAcetam IV 1,000 mg 100 In Saline 1 100ml.bag @ 400 mls/hr IVPB Q12HR [facility] Rx#:[id number] Intake, IV Titration 585.657 124.806 283.367 Amount Magnesium Sulfate-D5w Pmx 200 1 gm In Dextrose/Water 1 100ml.bag @ 100 mls/hr IVPB Q1H [facility] Rx#: [id number] Meropenem 1 gm In Sodium 100 Chloride 0.9% 100 ml @ 200 mls/hr IVPB Q8H [facility] Rx#:[id number] Norepinephrin 16 mg-0.9% 85.657 11.216 Ns Pmx 16 mg In 250 ml @ Titrate IV .Q0M [facility] Rx#: [id number] Potassium Chloride 20 meq 200 In Water For Injection 1 100ml.bag @ 50 mls/hr IVPB ONCE ONE Rx#: [id number] Potassium Phosphate 10 250 mmol In Sodium Chloride 0 .9% 250 ml @ 125 mls/hr IV ONCE ONE Rx#:[id number] Propofol 1,000 mg In 113.590 33.367 Empty Bag 1 bag @ Titrate IV .Q0M [facility] Rx#: [id number] Tube Feeding 100 460 230 Other 90 Output: Urine 1515 1410 270 Other: Voiding Method Indwelling Catheter Indwelling Catheter Indwelling Catheter ABP, PAP, CO, CI - Last Documented Arterial Blood Pressure 108/53 - Exam Physical Exam: Revealed a 51-year-old white male, morbidly obese, on mechanical ventilation,,alert, no distress at present. HEENT: Short obese neck. Neck is supple. No neck masses.No thyromegaly.No JVD. PERRLA, EOMI, moist mucous membranes. Endotracheal tube is intact. Chest: Diminished breath sounds at the bases, especially at the left base. no crackles nor rhonchi no wheezes. Cardiac Exam: Normal S1 and S2, no S3 gallop, no murmur. Abdomen: Obese, Soft, nontender, no megaly, no rebound, no guarding, normal bowel sounds. Extremities: No clubbing, no edema, no cyanosis. Significant muscle atrophy and wasting of muscles noted in lower extremities, patient is paraplegic. Flexion contractures noted bilaterally. Neurological Exam: No focal neurologic deficit. Except for paraplegia from the waist down. Lymphatics: No lymphadenopathy. Psychiatric: Normal mood, affect, and cannot fully assess mental status exam. - Labs CBC & Chem 7: 04/08/17 03:50 04/08/17 03:50 Labs: Abnormal Lab Results - Last 24 Hours (Table) 04/07/17 04/07/17 04/08/17 Range/Units 12:11 19:53 03:50 WBC (3.8-10.6) k/uL RBC (4.30-5.90) m/uL Hgb (13.0-17.5) gm/dL Hct (39.0-53.0) % RDW (11.5-15.5) % Plt Count (150-450) k/uL Neutrophils # (1.3-7.7) k/uL ABG pCO2 (35-45) mmHg ABG pO2 (83-108) mmHg ABG O2 Saturation (94-97) % Sodium 147 H (137-145) mmol/L Potassium 3.0 L* (3.5-5.1) mmol/L Chloride 116 H (98-107) mmol/L POC Glucose (mg/dL) 150 H 104 H (75-99) mg/dL Calcium 5.6 L* (8.4-10.2) mg/dL Ionized Calcium Yuval 3.8 L (4.5-5.3) mg/dL Phosphorus 2.4 L (2.5-4.5) mg/dL 04/08/17 04/08/17 04/08/17 Range/Units 03:50 05:07 07:56 WBC 14.1 H (3.8-10.6) k/uL RBC 3.32 L (4.30-5.90) m/uL Hgb 9.3 L (13.0-17.5) gm/dL Hct 29.8 L (39.0-53.0) % RDW 18.4 H (11.5-15.5) % Plt Count 111 L (150-450) k/uL Neutrophils # 10.9 H (1.3-7.7) k/uL ABG pCO2 34 L (35-45) mmHg ABG pO2 62 L (83-108) mmHg ABG O2 Saturation 92.0 L (94-97) % Sodium (137-145) mmol/L Potassium (3.5-5.1) mmol/L Chloride (98-107) mmol/L POC Glucose (mg/dL) 102 H (75-99) mg/dL Calcium (8.4-10.2) mg/dL Ionized Calcium Yuval (4.5-5.3) mg/dL Phosphorus (2.5-4.5) mg/dL Microbiology - Last 24 Hours (Table) 04/01/17 21:10 Blood Culture - Final Blood No Growth after 144 hours 04/01/17 21:46 Blood Culture - Final Blood No Growth after 144 hours 04/01/17 21:54 Blood Culture - Final Blood No Growth after 144 hours Assessment and Plan Assessment: Impression: 1 acute septic shock secondary to urinary tract infection, acute cystitis secondary to Enterobacter aerogenes and pseudomonas aeruginosa as noted in the urine. His blood cultures are positive for Enterobacter. Blood cultures negative. He remains on cefazolin and meropenem. 2 acute hypoxic respiratory failure secondary to above. Failed extubation requiring reintubation. The plan is for probable tracheostomy on 04/11/2017 3 acute metabolic, lactic acidosis secondary to 1. 4 history of paraplegia and neurogenic bladder. 5 acute kidney injury secondary to sepsis and septic shock. 6 history of nephrolithiasis/bilateral. 7 history of multiple surgeries including skin graft for pressure sores, right ureteroscopy with lithotripsy in 2005 and external sphincterotomy 1990 and 1994. Plan: The patient was seen and evaluated by Dr. Pillai. We will conitnue to attempt to wean down norepinephrine. A new right radial arterial line was inserted. Continue with his other medications for now. Antibiotics per infectious disease. Remains on the cefazolin and meropenem. We'll continue to monitor him closely here in the intensive care unit. We'll continue with daily interruption of sedation. He was given a weaning trial of pressure support of 5 and a CPAP of 5 today. The plan is for tracheotomy on 04/11/2017. We will continue to follow and make further recommendations based on his clinical status. Critical care time 36 minutes. I, the cosigning physician, have performed a history and physical examination on the patient. Lung sounds lateral scattered rhonchi.. Maintaining good O2 saturations in the 90s on 50% FiO2. Continue intubation and mechanical ventilation.. I have discussed the assessment and plan of care with my nurse practitioner, Edita Billy. I attest the above documented note as dictated by her. Time with Patient: Greater than 30
[2017-04-08 12:24] LABS: Glucose,Whole Blood 94 mg/dL (75-99)
[2017-04-08] MEDS ORDERED: Potassium Replacement Protocol 1 EACH MISC MISCELLANE PRN (14:17)
--- NOTE | 2017-04-08 14:39 | PCN ---
PROCEDURE NOTE DATE OF PROCEDURE: 04/08/2017. ARTERIAL LINE PLACEMENT Indication: Hemodynamic monitoring. A time-out was completed verifying correct patient, procedure, site, positioning, and implant(s) or special equipment if applicable. Heriberto's test was performed to ensure adequate perfusion. The patient's right wrist was prepped and draped in sterile fashion. 1% Lidocaine was used to anesthetize the area. An 18G Arrow arterial line was introduced into the radial artery. The catheter was threaded over the guide wire and the needle was removed with appropriate pulsatile blood return. Blood loss was minimal. The catheter was then sutured in place to the skin and a sterile dressing applied. Perfusion to the extremity distal to the point of catheter insertion was checked and found to be adequate. The patient tolerated the procedure well and there were no complications. MMODL / IJN: [id number] /
[2017-04-08] MEDS: POTASSIUM CHLORIDE ORAL LIQUID 40 MEQ/30 ML CUP NG-TUBE SCH ×2 (15:19→17:03)
[2017-04-08 18:10] LABS: Glucose,Whole Blood 95 mg/dL (75-99)
--- NOTE | 2017-04-08 20:15 | PN ---
PROGRESS NOTE DATE OF SERVICE: 04/08/2017. The patient remains in ICU. Remains sedated on ventilator. Vital signs temperature 98.4, pulse 70, respirations 24, blood pressure 87/48, O2 saturation 100%. HEENT atraumatic, normocephalic. Pupils equal and reactive to light. ET tube is intact. Buccal mucosa is fair. Neck is supple. No goiter or lymphadenopathy. JVD is negative. No carotid bruit heard. Lungs are scattered rhonchi. Heart is regular rate and rhythm without murmurs or gallop rhythm. Abdomen is soft, obese. Bowel sounds positive. Extremities no edema, clubbing or cyanosis. Neurological examination cannot be evaluated. Extremities: The patient does move extremities. There is muscle wasting and atrophy of both lower extremities. The patient being paraplegic. Lymphatics: No cervical or axillary lymph nodes are palpable. His skin is warm and dry. LAB: Labs chemical profile sodium 147, potassium 3.0, chloride 116, bicarb 26, BUN of 20, creatinine 0.8, glucose 85. CBC, white blood count of 14.1, hemoglobin 9.3, hematocrit 29.8 and platelet count of 111. ASSESSMENT: 1. Acute septic shock secondary to urinary tract infection. Blood cultures are negative. 2. Acute hypoxemic respiratory failure secondary to above, patient failed extubation. Plan is to probably proceed with a tracheostomy on April 11. 3. Acute metabolic acidosis. 4. Paraplegic and neurogenic bladder. 5. Acute renal injury secondary to sepsis and septic shock. 6. History of nephrolithiasis. Again patient has failed extubation trial and the plan is to proceed with tracheostomy. Patient remains on IV cefazolin and Merrem. ID is following. Plan is to give weaning trials daily. Further recommendations by the tower loader operator. MMODL / IJN: [id number] /
[2017-04-08] MEDS: HYDROmorphone 1 MG/ML 1 ML SYRINGE IVP PRN (20:41)
[2017-04-09] MEDS: INSULIN ASPART 100 UNIT/ML 1 ML 10 ML VIAL SQ SCH ×4 (00:18→17:36)
[2017-04-09 00:19] LABS: Glucose,Whole Blood 110 mg/dL (75-99)
[2017-04-09] MEDS: IPRATROPIUM-ALBUTEROL 3 ML NEB INHALATION SCH ×6 (03:26→23:02)
[2017-04-09] MEDS: MEROPENEM 1 GM in SODIUM CHLORIDE 0.9% 100 ML IVPB SCH ×3 (04:21→19:56)
[2017-04-09] MEDS: HYDROmorphone 1 MG/ML 1 ML SYRINGE IVP PRN (04:21)
[2017-04-09 04:56] LABS: Ionized Calcium 3.8 mg/dL (4.5-5.3)
[2017-04-09 05:04] LABS: Anion Gap 4 mmol/L; Blood Urea Nitrogen 18 mg/dL (9-20); Carbon Dioxide 27 mmol/L (22-30); Chloride 118 mmol/L (98-107); Glucose 112 mg/dL (74-99); Magnesium 1.6 mg/dL (1.6-2.3); Potassium 3.5 mmol/L (3.5-5.1); Sodium 149 mmol/L (137-145)
[2017-04-09 05:35] LABS: ABG Base Excess -0.9 mmol/L; ABG HCO3 23 mmol/L (21-25); ABG PCO2 34 mmHg (35-45); ABG PH 7.44 (7.35-7.45); ABG PO2 106 mmHg (83-108); ABG TCO2 24 mmol/L (19-24)
[2017-04-09 05:37] LABS: Calcium 5.7 mg/dL (8.4-10.2)
[2017-04-09 05:44] LABS: Glucose,Whole Blood 113 mg/dL (75-99)
[2017-04-09] MEDS: MAGNESIUM SULFATE-D5W PMX 1 GM in DEXTROSE/WATER 1 100ML.BAG IVPB SCH ×2 (06:38→07:48)
[2017-04-09] MEDS: POTASSIUM CHLORIDE ORAL LIQUID 40 MEQ/30 ML CUP NG-TUBE SCH ×2 (06:38→07:49)
--- NOTE | 2017-04-09 07:22 | XR ---
EXAMINATION TYPE: XR chest 1V portable DATE OF EXAM: 04/09/2017 COMPARISON: 04/08/2017 HISTORY: Short of breath TECHNIQUE: Single frontal view of the chest is obtained. FINDINGS: Heart and mediastinum are shifted to the left side. There is pulmonary edema. There is a n asogastric tube. Endotracheal tube is in good position. There is right-sided central venous catheter with the tip over the right atrium. There are chest leads. There is blunting of right costophrenic an gle. IMPRESSION: Pulmonary edema. Right pleural effusion. Mediastinum and heart are shifted to the left s carlos consistent with left sided pulmonary consolidation and atelectasis that is worse than yesterday.
[2017-04-09] MEDS: CHLORHEXIDINE GLUCONATE 15 ML CUP MUCOUS MEM SCH ×2 (07:49→21:04)
[2017-04-09] MEDS: DEXTROSE 5%-0.45% NACL 1,000 ML IV SCH ×2 (07:51→16:06)
[2017-04-09] MEDS: BISACODYL 10 MG SUPP RECTAL SCH (07:52)
[2017-04-09] MEDS: PANTOPRAZOLE 40 MG/10 ML VIAL IV SCH (07:55)
[2017-04-09] MEDS: levETIRAcetam IV 1,000 MG in SALINE 1 100ML.BAG IVPB SCH ×2 (08:28→21:04)
[2017-04-09] MEDS ORDERED: CALCIUM GLUCONATE 2,000 MG in SODIUM CHLORIDE 0.9% 100 ML IVPB ONE (09:00)
[2017-04-09 09:42] LABS: Anisocytosis Slight; Basophils % (A) 0 %; Eosinophils # (A) 0.1 k/uL (0-0.7); Eosinophils % (A) 1 %; HCT 29.8 % (39.0-53.0); HGB 9.2 gm/dL (13.0-17.5); Hypochromasia Slight; Lymphocytes # (A) 1.3 k/uL (1.0-4.8); Lymphocytes % (A) 7 %; MCH 28.6 pg (25.0-35.0); MCHC 30.9 g/dL (31.0-37.0); MCV 92.3 fL (80.0-100.0); Mean Platelet Volume 9.8; Monocytes # (A) 0.5 k/uL (0-1.0); Monocytes % (A) 3 %; Neutrophils # (A) 16.7 k/uL (1.3-7.7); Neutrophils % (A) 89 %; Platelet Count 116 k/uL (150-450); RBC 3.23 m/uL (4.30-5.90); RDW 17.8 % (11.5-15.5); WBC 18.8 k/uL (3.8-10.6)
--- NOTE | 2017-04-09 10:23 | P.PN ---
Subjective Progress Note Date: 04/09/17 Principal diagnosis: Sepsis Progress note dated 04/06/2017 This is a 51-year-old male with a history of respiratory failure secondary to overwhelming sepsis and septic shock from a urinary tract infection secondary to Enterobacter Jameson reason pseudomonas aeruginosa. Blood cultures were also positive for Enterobacter around kidneys. The patient is doing relatively well. His FiO2 and PEEP levels are low. His blood gases are reasonable. His weaning parameters today were fine and were thinking about extubating the patient. In addition, the patient has a history of hypoxemic respiratory failure severe metabolic derangements including lactic acidemia secondary to sepsis previous history of paraplegia with neurogenic bladder acute kidney injury secondary to septic shock and acute tubular necrosis and a history of kidney stones. The patient has had multiple surgeries for skin grafts of pressure sores as well as previous sphincterotomy and lithotripsy for kidney stones. Again the patient seemed be doing relatively well today. We'll stop his propofol. Local had an empty stomach. We'll give him a CPAP/PSV trial. We 'll check a cuff leak. We will do a rapid shallow breathing index. Everything looks good, trial of extubation. Progress note dated 04/07/2017 This is a 51-year-old male with a history of respiratory failure secondary to overwhelming sepsis and septic shock from urinary tract infection secondary to Enterobacter as well as Pseudomonas. Blood cultures are also positive for Enterobacter. The patient was doing well yesterday and because he had good weaning parameters and a good blood gas and a good cuff leak, he was extubated. Apparently sometime after that, his respiratory status declined although I was not notified. Patient was placed on BiPAP at 12 and 5 and 50%. Sometime this morning, the patient's blood pressure got worse and the norepinephrine with continuing continuing to be increased. Finally, I was called by the nurses morning. The patient was up on the norepinephrine 2 18 mcg/m. Because of declining respiratory status and a poor blood gas showing significant metabolic acidosis, anesthesia was called and he was reintubated. The TOOL DESIGN ENGINEER could not reintubate the patient. The patient apparently had a difficult airway. The patient will likely need a tracheostomy. The x-rays labs and medications are reviewed. Currently he is on the assist control mode rate of 22 tidal volume for 50 FiO2 50% PEEP of 5. Arterial blood gases show a PaO2 of 68, a PaCO2 of 44, and a pH of 7.3. He will need a PICC line. The art line is nonfunctional be discontinued. Again he was extubated on April 06 and reintubated on April 07. His IVs include a dextrose with half-normal saline at 200 mL an hour norepinephrine at 20 mcg/m, site Cortef at 12.5 mg an hour and propofol at 20 mics per kilogram per minute. We'll resume tube feeds. Most him to cut back his IV fluids as his chest x-ray shows if Fluid overload and through the course of his hospitalization, his receive lots of fluids. I will talk to the family about a tracheostomy. Progress note dated 04/09/2017 51-year-old male with a history of respiratory failure secondary to overwhelming sepsis and septic shock from urinary tract infection secondary to Enterobacter as well as Pseudomonas. Blood cultures are also positive for Enterobacter. The patient was extubated and needed to be reintubated the very next day. The patient is scheduled for tracheostomy to be done on Monday by one of the thoracic surgeons. Currently the patient has been reasonably stable. His ventilator settings include the assist control mode rate of 22 tidal volume 450 FiO2 50% to be reduced to 40% and 5 of PEEP. Arterial blood gases show a PaO2 of 106 a PaCO2 of 34 and a pH of 7.44. The patient's getting norepinephrine at 20 mics per minute DIP or van is currently off. The IV is D5.4 575 to be converted D5W at 75. The patient will also get water flushes at 200 mL every 6 hours for the hot developing hypernatremia. Objective - Vital Signs Vital signs: Vital Signs Temp 98.0 F 04/09/17 04:00 Pulse 77 04/09/17 07:39 Resp 22 04/09/17 07:00 BP 104/51 04/09/17 07:00 Pulse Ox 93 L 04/09/17 07:00 Intake & Output 04/08/17 04/09/17 04/09/17 18:59 06:59 18:59 Intake Total 0972.619 6013.313 450 Output Total 1070 2195 420 Balance 881.301 190.313 30 Weight 130.1 kg Intake: IV 900 1205 250 Dextrose 5%-0.45% NaCl 1, 750 975 150 000 ml @ 75 mls/hr IV . [id number] [facility] Rx#:[id number] Magnesium Sulfate-D5w Pmx 100 1 gm In Dextrose/Water 1 100ml.bag @ 100 mls/hr IVPB Q1H [facility] Rx#: [id number] Magnesium Sulfate-D5w Pmx 100 1 gm In Dextrose/Water 1 100ml.bag @ 100 mls/hr IVPB Q1H [facility] Rx#: [id number] Meropenem 1 gm In Sodium 30 Chloride 0.9% 100 ml @ 200 mls/hr IVPB Q8H [facility] Rx#:[id number] Potassium Chloride 20 meq 50 In Water For Injection 1 100ml.bag @ 50 mls/hr IVPB ONCE ONE Rx#: [id number] levETIRAcetam IV 1,000 mg 100 100 In Saline 1 100ml.bag @ 400 mls/hr IVPB Q12HR [facility] Rx#:[id number] Intake, IV Titration 381.301 350.313 200 Amount Calcium Gluconate 2,000 100 mg In Sodium Chloride 0.9 % 100 ml @ 100 mls/hr IVPB ONCE ONE Rx#: [id number] Magnesium Sulfate-D5w Pmx 100 1 gm In Dextrose/Water 1 100ml.bag @ 100 mls/hr IVPB Q1H [facility] Rx#: [id number] Norepinephrin 16 mg-0.9% 74.534 177.113 Ns Pmx 16 mg In 250 ml @ Titrate IV .Q0M [facility] Rx#: [id number] Potassium Phosphate 10 250 mmol In Sodium Chloride 0 .9% 250 ml @ 125 mls/hr IV ONCE ONE Rx#:[id number] Propofol 1,000 mg In 56.767 173.2 Empty Bag 1 bag @ Titrate IV .Q0M [facility] Rx#: [id number] Tube Feeding 670 740 Other 90 Output: Urine 1070 2195 420 Other: Voiding Method Indwelling Catheter Indwelling Catheter ABP, PAP, CO, CI - Last Documented Arterial Blood Pressure 88/45 - Exam No acute distress, the patient is not sedated. Endotracheal tube and NG tube in place HEENT examination is grossly unremarkable. Mucous membranes are moist. No oral lesions. Neck supple. Full range of motion. No adenopathy thyromegaly or neck vein distention. Cardiovascular examination reveals regular rhythm rate. S1-S2 normal. No S3 or S4. No discernible murmur noted. Lungs reveal a few scattered rhonchi. No wheezes or crackles. Breath sounds are diminished. Abdomen soft bowel sounds are heard. No masses or tenderness. Extremities are intact. No cyanosis clubbing or edema. Skin is without rash or lesion. Neurologic examination cannot be adequately performed. - Labs CBC & Chem 7: 04/09/17 04:35 04/09/17 04:35 Labs: Abnormal Lab Results - Last 24 Hours (Table) 04/08/17 04/09/17 04/09/17 Range/Units 12:20 00:17 04:35 WBC (3.8-10.6) k/uL RBC (4.30-5.90) m/uL Hgb (13.0-17.5) gm/dL Hct (39.0-53.0) % MCHC (31.0-37.0) g/dL RDW (11.5-15.5) % Plt Count (150-450) k/uL Neutrophils # (1.3-7.7) k/uL ABG pCO2 (35-45) mmHg ABG O2 Saturation (94-97) % Sodium 149 H (137-145) mmol/L Potassium 3.4 L (3.5-5.1) mmol/L Chloride 118 H (98-107) mmol/L Glucose 112 H (74-99) mg/dL POC Glucose (mg/dL) 110 H (75-99) mg/dL Calcium 5.7 L* (8.4-10.2) mg/dL Ionized Calcium Yuval 3.8 L (4.5-5.3) mg/dL Phosphorus (2.5-4.5) mg/dL 04/09/17 04/09/17 04/09/17 Range/Units 04:35 04:35 05:01 WBC 18.8 H (3.8-10.6) k/uL RBC 3.23 L (4.30-5.90) m/uL Hgb 9.2 L (13.0-17.5) gm/dL Hct 29.8 L (39.0-53.0) % MCHC 30.9 L (31.0-37.0) g/dL RDW 17.8 H (11.5-15.5) % Plt Count 116 L (150-450) k/uL Neutrophils # 16.7 H (1.3-7.7) k/uL ABG pCO2 34 L (35-45) mmHg ABG O2 Saturation 98.0 H (94-97) % Sodium (137-145) mmol/L Potassium (3.5-5.1) mmol/L Chloride (98-107) mmol/L Glucose (74-99) mg/dL POC Glucose (mg/dL) (75-99) mg/dL Calcium (8.4-10.2) mg/dL Ionized Calcium Yuval (4.5-5.3) mg/dL Phosphorus 2.4 L (2.5-4.5) mg/dL 04/09/17 Range/Units 05:42 WBC (3.8-10.6) k/uL RBC (4.30-5.90) m/uL Hgb (13.0-17.5) gm/dL Hct (39.0-53.0) % MCHC (31.0-37.0) g/dL RDW (11.5-15.5) % Plt Count (150-450) k/uL Neutrophils # (1.3-7.7) k/uL ABG pCO2 (35-45) mmHg ABG O2 Saturation (94-97) % Sodium (137-145) mmol/L Potassium (3.5-5.1) mmol/L Chloride (98-107) mmol/L Glucose (74-99) mg/dL POC Glucose (mg/dL) 113 H (75-99) mg/dL Calcium (8.4-10.2) mg/dL Ionized Calcium Yuval (4.5-5.3) mg/dL Phosphorus (2.5-4.5) mg/dL Microbiology - Last 24 Hours (Table) 04/08/17 16:50 Catheter Tip Culture - Preliminary Catheter Tip Assessment and Plan (1) Acute kidney injury Current Visit: Yes Status: Acute Code(s): N17.9 - ACUTE KIDNEY FAILURE, UNSPECIFIED SNOMED Code(s): 38724028 (2) Lactic acidosis Current Visit: Yes Status: Acute Code(s): E87.2 - ACIDOSIS SNOMED Code(s) : 98006993 (3) Septic shock due to Pseudomonas species Current Visit: Yes Status: Acute Code(s): A41.52 - SEPSIS DUE TO PSEUDOMONAS ; R65.21 - SEVERE SEPSIS WITH SEPTIC SHOCK SNOMED Code(s): 14113331 (4) Respiratory failure Current Visit: Yes Status: Acute Code(s): J96.90 - RESPIRATORY FAILURE, UNSP , UNSP W HYPOXIA OR HYPERCAPNIA SNOMED Code(s): 441101773 (5) Acute respiratory failure requiring reintubation Current Visit: Yes Status: Acute Code(s): J96.00 - ACUTE RESPIRATORY FAILURE , UNSP W HYPOXIA OR HYPERCAPNIA SNOMED Code(s): 434462978 (6) Gross hematuria Current Visit: Yes Status: Acute Code(s): R31.0 - GROSS HEMATURIA SNOMED Code(s): 113881803 (7) Paraplegia following spinal cord injury Current Visit: Yes Status: Acute Code(s): G82.20 - PARAPLEGIA, UNSPECIFIED SNOMED Code(s): 42049720 (8) Renal calculus, bilateral Current Visit: Yes Status: Acute Code(s): N20.0 - CALCULUS OF KIDNEY SNOMED Code(s): 03938333 (9) Seizure Current Visit: Yes Status: Acute Code(s): R56.9 - UNSPECIFIED CONVULSIONS SNOMED Code(s): 25591199 (10) Septic shock Current Visit: Yes Status: Acute Code(s): A41.9 - SEPSIS, UNSPECIFIED ORGANISM; R65.21 - SEVERE SEPSIS WITH SEPTIC SHOCK SNOMED Code(s): 90574809 (11) Toxic metabolic encephalopathy Current Visit: Yes Status: Acute Code(s): G92 - TOXIC ENCEPHALOPATHY SNOMED Code(s): 842114683 (12) Uremia Current Visit: Yes Status: Acute Code(s): N19 - UNSPECIFIED KIDNEY FAILURE SNOMED Code(s): 89961420 (13) Failed or difficult intubation, sequela Current Visit: Yes Status: Acute Code(s): T88.4XXS - FAILED OR DIFFICULT INTUBATION, SEQUELA SNOMED Code(s): 360875716 Plan: Plan dated 04/06/2017 The patient will be given a trial of extubation. Labs x-rays a medications are all reviewed. The patient had reasonable weaning parameters on fiber pressure- support 5 CPAP. He did have a cuff leak. Chest x-ray stable. He is off the vasopressin. Remains on the norepinephrine is much lower dose. Prognosis is guarded. We'll continue to follow. Labs x-rays a medications are all reviewed. Plan dated 04/07/2017 The R line was discontinued because it was nonfunctional. The patient's IVs will be turned down to 75 mL an hour. The patient's tube feeds will be resumed. We'll do blood arterial blood gases are fine for now. A PICC line will be placed. We'll put an order in for possible tracheostomy. We will discontinue the Solu-Cortef as it did not really help very much with blood pressure support. We will continue the norepinephrine. Prognosis is very guarded/poor Plan dated 04/09/2017 The patient is scheduled for a tracheostomy on Monday with one of the thoracic surgeons. He's not really had any successful weaning and extubation. He was x- rayed once and then reintubated. Currently his sedation is off. His norepinephrine requirements have gone up. His IV was converted from dextrose and half-normal saline to D5W at 75 mL an hour. The patient is receiving water flushes at 200 mL every 6 hours for developing hypernatremia. The FiO2 was dropped from 50-40%. Medications labs and x-rays are reviewed. Prognosis is guarded. Arterial line was placed yesterday. Time with Patient: Greater than 30
[2017-04-09 12:24] LABS: Glucose,Whole Blood 136 mg/dL (75-99)
[2017-04-09] MEDS: NOREPINEPHRIN 16 MG-0.9%NS PMX 16 MG/250 ML ML IV SCH (13:22)
[2017-04-09 17:37] LABS: Glucose,Whole Blood 115 mg/dL (75-99)
--- NOTE | 2017-04-09 20:47 | PN ---
PROGRESS NOTE DATE OF SERVICE: 04/09/17. The patient remains in ICU, is being treated for respiratory failure secondary to sepsis and septic shock with UTI. The patient remains on ventilator. Vital signs: Temperature of 98, pulse 77, respiration 22, blood pressure 104/59, O2 saturation 93%. HEENT atraumatic, normocephalic. Pupils equal and reactive to light. Neck is supple. Fair range of motion. The patient's ET tube and NG tube in place. Heart is regular rate and rhythm without any murmurs or gallop rhythm. Lungs scattered rhonchi and no wheezes. Decreased breath sounds. Abdomen is soft and nontender. Bowel sounds are positive. Extremities: No edema, clubbing or cyanosis. Skin no rashes or pigmentation. Neurological examination cannot be done. LAB: CBC, white blood count of 18.8, hemoglobin 9.2, hematocrit 29.8, and platelet count of 116. Chemical profile sodium 149, potassium 3.5, chloride 118, bicarb 28, BUN 18, creatinine 0.7, glucose 128. ASSESSMENT: 1. Hypernatremia. Will adjust IV fluids. 2. Acute renal injury secondary to sepsis and septic shock. The patient remains on IV fluids. I's and Os are being monitored. Renal function is being monitored. 3. Septic shock due to Pseudomonas. The patient remains on IV antibiotics. Infectious Disease is managing antibiotic treatment. 4. Acute respiratory failure requiring intubation. Patient has failed weaning once and was reintubated. Chair Car Driver to continue the weaning trials. 5. Acute metabolic acidosis, again secondary to septic shock. 6. Paraplegic with neurogenic bladder. 7. History of nephrolithiasis. Patient remains in ICU. The patient is scheduled for tracheostomy on Monday due to failed weaning and extubation. The patient remains on pressors and IV fluids. His prognosis is guarded. MMODL / IJN: [id number] /
[2017-04-10 00:49] LABS: Glucose,Whole Blood 86 mg/dL (75-99)
[2017-04-10] MEDS: INSULIN ASPART 100 UNIT/ML 1 ML 10 ML VIAL SQ SCH ×4 (01:09→18:08)
[2017-04-10] MEDS: HYDROmorphone 1 MG/ML 1 ML SYRINGE IVP PRN (01:10)
[2017-04-10] MEDS: IPRATROPIUM-ALBUTEROL 3 ML NEB INHALATION SCH ×6 (03:09→23:20)
[2017-04-10] MEDS: MEROPENEM 1 GM in SODIUM CHLORIDE 0.9% 100 ML IVPB SCH ×3 (04:08→20:55)
[2017-04-10] MEDS: DEXTROSE 5%-0.45% NACL 1,000 ML IV SCH (04:08)
[2017-04-10 05:19] LABS: ABG Base Excess 0.1 mmol/L; ABG HCO3 23 mmol/L (21-25); ABG PCO2 30 mmHg (35-45); ABG PH 7.49 (7.35-7.45); ABG PO2 123 mmHg (83-108); ABG TCO2 24 mmol/L (19-24)
[2017-04-10 05:23] LABS: Anion Gap 4 mmol/L; Blood Urea Nitrogen 15 mg/dL (9-20); Carbon Dioxide 27 mmol/L (22-30); Chloride 118 mmol/L (98-107); Glucose 101 mg/dL (74-99); Magnesium 1.5 mg/dL (1.6-2.3); Phosphorus 2.5 mg/dL (2.5-4.5); Potassium 3.9 mmol/L (3.5-5.1); Sodium 149 mmol/L (137-145)
[2017-04-10 05:51] LABS: Calcium 6.2 mg/dL (8.4-10.2)
[2017-04-10 05:53] LABS: Glucose,Whole Blood 88 mg/dL (75-99)
[2017-04-10] MEDS ORDERED: Magnesium Replacement Protocol 1 EACH MISC MISCELLANE PRN (05:55)
[2017-04-10] MEDS ORDERED: Potassium Replacement Protocol 1 EACH MISC MISCELLANE PRN (05:56)
[2017-04-10] MEDS ORDERED: POTASSIUM CHLORIDE ORAL LIQUID 40 MEQ/30 ML CUP NG-TUBE SCH (06:00)
[2017-04-10] MEDS: MAGNESIUM SULFATE-D5W PMX 1 GM in DEXTROSE/WATER 1 100ML.BAG IVPB SCH ×2 (06:21→07:53)
[2017-04-10 06:44] LABS: Anisocytosis Slight; Basophils % (A) 0 %; Eosinophils # (A) 0.1 k/uL (0-0.7); Eosinophils % (A) 1 %; HCT 29.1 % (39.0-53.0); HGB 8.9 gm/dL (13.0-17.5); Hypochromasia Slight; Lymphocytes # (A) 1.1 k/uL (1.0-4.8); Lymphocytes % (A) 10 %; MCH 28.3 pg (25.0-35.0); MCHC 30.7 g/dL (31.0-37.0); MCV 92.1 fL (80.0-100.0); Mean Platelet Volume 9.9; Monocytes # (A) 0.4 k/uL (0-1.0); Monocytes % (A) 3 %; Neutrophils # (A) 9.9 k/uL (1.3-7.7); Neutrophils % (A) 85 %; Platelet Count 133 k/uL (150-450); RBC 3.16 m/uL (4.30-5.90); RDW 19.6 % (11.5-15.5); WBC 11.6 k/uL (3.8-10.6)
--- NOTE | 2017-04-10 07:16 | XR ---
EXAMINATION TYPE: XR chest 1V portable DATE OF EXAM: 04/10/2017 COMPARISON: Yesterday HISTORY: Short of breath TECHNIQUE: Single frontal view of the chest is obtained. FINDINGS: There is pulmonary edema. Heart is enlarged. There is blunting of costophrenic angles. The re is a nasogastric tube. There is right central venous catheter with tip in the right atrium. There are chest leads. IMPRESSION: Congestive heart failure with pleural effusions. There is probably no change allowing fo r different position compared to yesterday.
[2017-04-10] MEDS: MIDODRINE 5 MG TAB PO SCH ×3 (07:53→18:05)
[2017-04-10] MEDS: CHLORHEXIDINE GLUCONATE 15 ML CUP MUCOUS MEM SCH ×2 (08:56→20:55)
[2017-04-10] MEDS: PANTOPRAZOLE 40 MG/10 ML VIAL IV SCH (08:57)
[2017-04-10] MEDS: levETIRAcetam IV 1,000 MG in SALINE 1 100ML.BAG IVPB SCH ×2 (08:57→21:28)
--- NOTE | 2017-04-10 09:56 | PN ---
PROGRESS NOTE DATE OF SERVICE: 04/09/2017. REASON FOR FOLLOWUP: 1. Gram-negative sepsis. 2. Possible aspiration pneumonia. INTERVAL HISTORY: The patient is afebrile. This morning he did have slight respiratory distress and possible aspiration. Subsequently respiratory status has improved. He is still requiring low-dose pressor support. He has been tolerating his tube feeds and no diarrhea. EXAMINATION: Blood pressure is 106/53 with a pulse of 83, temperature 97.8. He is 99% on 50 % FiO2. General description is a middle-aged male lying in bed in no distress. RESPIRATORY SYSTEM: Unlabored breathing with decreased breath sounds in the bases. No wheeze. HEART: S1, S2. Regular rate and rhythm. ABDOMEN: Soft, no tenderness. LABS: Hemoglobin 9.2, hematocrit of 18.8, BUN of 18, creatinine 0.70. DIAGNOSTIC IMPRESSION AND PLAN: Patient with gram-negative sepsis with enterobacter and pseudomonas aeruginosa urinary tract infection, still requiring pressor support and a question of possible aspiration etiology. The patient continues on meropenem and that will continue. Sputum culture has been requested and will adjust antibiotic further if needed. Family present at bedside. Their questions were answered. MMODL / IJN: [id number] / MTDD
[2017-04-10] MEDS: DEXTROSE 5% IN WATER 1,000 ML IV SCH ×2 (10:08→22:08)
--- NOTE | 2017-04-10 10:44 | P.PN ---
Subjective Progress Note Date: 04/10/17 Principal diagnosis: Sepsis Progress note dated 04/06/2017 This is a 51-year-old male with a history of respiratory failure secondary to overwhelming sepsis and septic shock from a urinary tract infection secondary to Enterobacter Jameson reason pseudomonas aeruginosa. Blood cultures were also positive for Enterobacter around kidneys. The patient is doing relatively well. His FiO2 and PEEP levels are low. His blood gases are reasonable. His weaning parameters today were fine and were thinking about extubating the patient. In addition, the patient has a history of hypoxemic respiratory failure severe metabolic derangements including lactic acidemia secondary to sepsis previous history of paraplegia with neurogenic bladder acute kidney injury secondary to septic shock and acute tubular necrosis and a history of kidney stones. The patient has had multiple surgeries for skin grafts of pressure sores as well as previous sphincterotomy and lithotripsy for kidney stones. Again the patient seemed be doing relatively well today. We'll stop his propofol. Local had an empty stomach. We'll give him a CPAP/PSV trial. We 'll check a cuff leak. We will do a rapid shallow breathing index. Everything looks good, trial of extubation. Progress note dated 04/07/2017 This is a 51-year-old male with a history of respiratory failure secondary to overwhelming sepsis and septic shock from urinary tract infection secondary to Enterobacter as well as Pseudomonas. Blood cultures are also positive for Enterobacter. The patient was doing well yesterday and because he had good weaning parameters and a good blood gas and a good cuff leak, he was extubated. Apparently sometime after that, his respiratory status declined although I was not notified. Patient was placed on BiPAP at 12 and 5 and 50%. Sometime this morning, the patient's blood pressure got worse and the norepinephrine with continuing continuing to be increased. Finally, I was called by the nurses morning. The patient was up on the norepinephrine 2 18 mcg/m. Because of declining respiratory status and a poor blood gas showing significant metabolic acidosis, anesthesia was called and he was reintubated. The AIR DEFENSE CONTROL OFFICER could not reintubate the patient. The patient apparently had a difficult airway. The patient will likely need a tracheostomy. The x-rays labs and medications are reviewed. Currently he is on the assist control mode rate of 22 tidal volume for 50 FiO2 50% PEEP of 5. Arterial blood gases show a PaO2 of 68, a PaCO2 of 44, and a pH of 7.3. He will need a PICC line. The art line is nonfunctional be discontinued. Again he was extubated on April 06 and reintubated on April 07. His IVs include a dextrose with half-normal saline at 200 mL an hour norepinephrine at 20 mcg/m, site Cortef at 12.5 mg an hour and propofol at 20 mics per kilogram per minute. We'll resume tube feeds. Most him to cut back his IV fluids as his chest x-ray shows if Fluid overload and through the course of his hospitalization, his receive lots of fluids. I will talk to the family about a tracheostomy. Progress note dated 04/09/2017 51-year-old male with a history of respiratory failure secondary to overwhelming sepsis and septic shock from urinary tract infection secondary to Enterobacter as well as Pseudomonas. Blood cultures are also positive for Enterobacter. The patient was extubated and needed to be reintubated the very next day. The patient is scheduled for tracheostomy to be done on Monday by one of the thoracic surgeons. Currently the patient has been reasonably stable. His ventilator settings include the assist control mode rate of 22 tidal volume 450 FiO2 50% to be reduced to 40% and 5 of PEEP. Arterial blood gases show a PaO2 of 106 a PaCO2 of 34 and a pH of 7.44. The patient's getting norepinephrine at 20 mics per minute DIP or van is currently off. The IV is D5.4 575 to be converted D5W at 75. The patient will also get water flushes at 200 mL every 6 hours for the hot developing hypernatremia. Progress note dated 04/10/2017 51-year-old male with a history of respiratory failure secondary to overwhelming sepsis and septic shock caused by urinary tract infection secondary to Enterobacter as well as Pseudomonas. The patient's blood cultures were also positive for Enterobacter. A couple days back, the patient was extubated and needed to be reintubated the very next day for respiratory failure. The patient was a difficult reintubation. A tracheostomy is scheduled for Monday by one of the thoracic surgeons. Daily, we will been doing her eruption of sedation with weaning trials and each day, he's done very poorly. Today again on PSV 5 CPAP of 5, the patient becomes very diaphoretic and tachycardic hypertensive and With high respiratory rate. He's was placed back on the ventilator., Tracheostomy would be important in terms of trying to get the patient off the ventilator. Currently the patient's vent settings are the assist control mode, rate of 22, tidal volume of 450, FiO2 of 40%, PEEP of 5. Arterial blood gases show a PaO2 of 123 a PaCO2 of 30 and a pH 7.49. The blood gases were done on 50%. The patient's IV is D5W at 75 mL an hour norepinephrine at 4 mics per minute and tube feeds at 25 mL an hour with a goal of 50. Patient's tube feeds include vital high protein. Objective - Vital Signs Vital signs: Vital Signs Temp 98.2 F 04/10/17 08:00 Pulse 80 04/10/17 10:00 Resp 24 04/10/17 10:00 BP 103/47 04/10/17 10:00 Pulse Ox 100 04/10/17 10:00 Intake & Output 04/09/17 04/10/17 04/10/17 18:59 06:59 18:59 Intake Total 6720.527 4894.281 654.455 Output Total 2385 3345 1135 Balance -461.176 -1674.719 -480.545 Weight 130.1 kg 131.4 kg Intake: IV 925 1275 325 Dextrose 5%-0.45% NaCl 1, 825 975 225 000 ml @ 75 mls/hr IV . [id number] MANDA Rx#:[id number] Magnesium Sulfate-D5w Pmx 100 1 gm In Dextrose/Water 1 100ml.bag @ 100 mls/hr IVPB Q1H MANDA Rx#: [id number] Meropenem 1 gm In Sodium 200 Chloride 0.9% 100 ml @ 200 mls/hr IVPB Q8H MANDA Rx#:[id number] levETIRAcetam IV 1,000 mg 100 100 In Saline 1 100ml.bag @ 400 mls/hr IVPB Q12HR MANDA Rx#:[id number] Intake, IV Titration 348.824 95.281 219.455 Amount Calcium Gluconate 2,000 100 mg In Sodium Chloride 0.9 % 100 ml @ 100 mls/hr IVPB ONCE ONE Rx#: [id number] Magnesium Sulfate-D5w Pmx 100 1 gm In Dextrose/Water 1 100ml.bag @ 100 mls/hr IVPB Q1H MANDA Rx#: [id number] Magnesium Sulfate-D5w Pmx 200 1 gm In Dextrose/Water 1 100ml.bag @ 100 mls/hr IVPB Q1H MANDA Rx#: [id number] Norepinephrin 16 mg-0.9% 148.824 95.281 19.455 Ns Pmx 16 mg In 250 ml @ Titrate IV .Q0M MANDA Rx#: [id number] Tube Feeding 650 100 100 Other 200 10 Output: Urine 2385 3345 1135 Other: Voiding Method Indwelling Catheter Indwelling Catheter Indwelling Catheter ABP, PAP, CO, CI - Last Documented Arterial Blood Pressure 99/47 - Exam No acute distress, the patient is not sedated. Endotracheal tube and NG tube in place HEENT examination is grossly unremarkable. Mucous membranes are moist. No oral lesions. Neck supple. Full range of motion. No adenopathy thyromegaly or neck vein distention. Cardiovascular examination reveals regular rhythm rate. S1-S2 normal. No S3 or S4. No discernible murmur noted. Lungs reveal a few scattered rhonchi. No wheezes or crackles. Breath sounds are diminished. Abdomen soft bowel sounds are heard. No masses or tenderness. Extremities are intact. No cyanosis clubbing or edema. Skin is without rash or lesion. Neurologic examination cannot be adequately performed. - Labs CBC & Chem 7: 04/10/17 04:45 04/10/17 04:45 Labs: Abnormal Lab Results - Last 24 Hours (Table) 04/09/17 04/09/17 04/10/17 Range/Units 12:21 17:36 04:45 WBC (3.8-10.6) k/uL RBC (4.30-5.90) m/uL Hgb (13.0-17.5) gm/dL Hct (39.0-53.0) % MCHC (31.0-37.0) g/dL RDW (11.5-15.5) % Plt Count (150-450) k/uL Neutrophils # (1.3-7.7) k/uL ABG pH (7.35-7.45) ABG pCO2 (35-45) mmHg ABG pO2 (83-108) mmHg ABG O2 Saturation (94-97) % Sodium 149 H (137-145) mmol/L Chloride 118 H (98-107) mmol/L Glucose 101 H (74-99) mg/dL POC Glucose (mg/dL) 136 H 115 H (75-99) mg/dL Calcium 6.2 L* (8.4-10.2) mg/dL Magnesium 1.5 L (1.6-2.3) mg/dL 04/10/17 04/10/17 Range/Units 04:45 05:16 WBC 11.6 H (3.8-10.6) k/uL RBC 3.16 L (4.30-5.90) m/uL Hgb 8.9 L (13.0-17.5) gm/dL Hct 29.1 L (39.0-53.0) % MCHC 30.7 L (31.0-37.0) g/dL RDW 19.6 H (11.5-15.5) % Plt Count 133 L (150-450) k/uL Neutrophils # 9.9 H (1.3-7.7) k/uL ABG pH 7.49 H (7.35-7.45) ABG pCO2 30 L (35-45) mmHg ABG pO2 123 H (83-108) mmHg ABG O2 Saturation 99.0 H (94-97) % Sodium (137-145) mmol/L Chloride (98-107) mmol/L Glucose (74-99) mg/dL POC Glucose (mg/dL) (75-99) mg/dL Calcium (8.4-10.2) mg/dL Magnesium (1.6-2.3) mg/dL Assessment and Plan (1) Acute kidney injury Current Visit: Yes Status: Acute Code(s): N17.9 - ACUTE KIDNEY FAILURE, UNSPECIFIED SNOMED Code(s): 69876689 (2) Lactic acidosis Current Visit: Yes Status: Acute Code(s): E87.2 - ACIDOSIS SNOMED Code(s) : 27579149 (3) Septic shock due to Pseudomonas species Current Visit: Yes Status: Acute Code(s): A41.52 - SEPSIS DUE TO PSEUDOMONAS ; R65.21 - SEVERE SEPSIS WITH SEPTIC SHOCK SNOMED Code(s): 17134450 (4) Respiratory failure Current Visit: Yes Status: Acute Code(s): J96.90 - RESPIRATORY FAILURE, UNSP , UNSP W HYPOXIA OR HYPERCAPNIA SNOMED Code(s): 888846104 (5) Acute respiratory failure requiring reintubation Current Visit: Yes Status: Acute Code(s): J96.00 - ACUTE RESPIRATORY FAILURE , UNSP W HYPOXIA OR HYPERCAPNIA SNOMED Code(s): 956272694 (6) Gross hematuria Current Visit: Yes Status: Acute Code(s): R31.0 - GROSS HEMATURIA SNOMED Code(s): 958655545 (7) Paraplegia following spinal cord injury Current Visit: Yes Status: Acute Code(s): G82.20 - PARAPLEGIA, UNSPECIFIED SNOMED Code(s): 61363150 (8) Renal calculus, bilateral Current Visit: Yes Status: Acute Code(s): N20.0 - CALCULUS OF KIDNEY SNOMED Code(s): 80675887 (9) Seizure Current Visit: Yes Status: Acute Code(s): R56.9 - UNSPECIFIED CONVULSIONS SNOMED Code(s): 71395184 (10) Septic shock Current Visit: Yes Status: Acute Code(s): A41.9 - SEPSIS, UNSPECIFIED ORGANISM; R65.21 - SEVERE SEPSIS WITH SEPTIC SHOCK SNOMED Code(s): 88825691 (11) Toxic metabolic encephalopathy Current Visit: Yes Status: Acute Code(s): G92 - TOXIC ENCEPHALOPATHY SNOMED Code(s): 232010148 (12) Uremia Current Visit: Yes Status: Acute Code(s): N19 - UNSPECIFIED KIDNEY FAILURE SNOMED Code(s): 28428300 (13) Failed or difficult intubation, sequela Current Visit: Yes Status: Acute Code(s): T88.4XXS - FAILED OR DIFFICULT INTUBATION, SEQUELA SNOMED Code(s): 070141997 Plan: Plan dated 04/06/2017 The patient will be given a trial of extubation. Labs x-rays a medications are all reviewed. The patient had reasonable weaning parameters on fiber pressure- support 5 CPAP. He did have a cuff leak. Chest x-ray stable. He is off the vasopressin. Remains on the norepinephrine is much lower dose. Prognosis is guarded. We'll continue to follow. Labs x-rays a medications are all reviewed. Plan dated 04/07/2017 The R line was discontinued because it was nonfunctional. The patient's IVs will be turned down to 75 mL an hour. The patient's tube feeds will be resumed. We'll do blood arterial blood gases are fine for now. A PICC line will be placed. We'll put an order in for possible tracheostomy. We will discontinue the Solu-Cortef as it did not really help very much with blood pressure support. We will continue the norepinephrine. Prognosis is very guarded/poor Plan dated 04/09/2017 The patient is scheduled for a tracheostomy on Monday with one of the thoracic surgeons. He's not really had any successful weaning and extubation. He was x- rayed once and then reintubated. Currently his sedation is off. His norepinephrine requirements have gone up. His IV was converted from dextrose and half-normal saline to D5W at 75 mL an hour. The patient is receiving water flushes at 200 mL every 6 hours for developing hypernatremia. The FiO2 was dropped from 50-40%. Medications labs and x-rays are reviewed. Prognosis is guarded. Arterial line was placed yesterday. Plan dated 04/10/2017. The patient is scheduled for tracheostomy on Monday with one of the thoracic surgeons. The patient has not had any successful weaning towards extubation. On PSV 5 and CPAP of 5 on the patient's spontaneous breathing trial, the patient 's heart rate goes up very high the patient becomes very diaphoretic. The patient becomes very unstable and this has to be placed back on the ventilator. The patient's chest x-ray show some fluid overload. Labs x-rays a medications are all reviewed. Additional recommendations and suggestions are forthcoming. Prognosis is guarded. FiO2 is turned down from 50% to 40%.
[2017-04-10 12:05] LABS: Glucose,Whole Blood 119 mg/dL (75-99)
--- NOTE | 2017-04-10 15:17 | P.PN ---
Subjective Progress Note Date: 04/10/17 Progress Note l being dictated for Dr. Alamo Interval history: This is a 51-year-old gentleman admitted with suspected aspiration pneumonia, gram-negative sepsis, acute respiratory failure and multiple other medical issues. Maintained on Merrem, sputum cultures pending. Remains vent dependent, FiO2 40%/+5 of PEEP. Telemetry sinus rhythm. Pressor dependent on Levophed, currently down to 2 mics. Weaning trials attempted this morning:patient became tachycardic, tachypneic with respiratory rate in the high 30s, hypertensive. Tolerating tube feeds with minimal to no residuals. Objective - Vital Signs Vital signs: Vital Signs Temp 98.9 F 04/10/17 12:00 Pulse 73 04/10/17 14:00 Resp 24 04/10/17 14:00 BP 96/48 04/10/17 14:00 Pulse Ox 100 04/10/17 14:00 Intake & Output 04/09/17 04/10/17 04/10/17 18:59 06:59 18:59 Intake Total 6705.164 5212.281 1287.580 Output Total 2385 3345 2210 Balance -461.176 -1674.719 -922.420 Weight 130.1 kg 131.4 kg Intake: IV 925 1275 325 Dextrose 5%-0.45% NaCl 1, 825 975 225 000 ml @ 75 mls/hr IV . [id number] MANDA Rx#:[id number] Magnesium Sulfate-D5w Pmx 100 1 gm In Dextrose/Water 1 100ml.bag @ 100 mls/hr IVPB Q1H MANDA Rx#: [id number] Meropenem 1 gm In Sodium 200 Chloride 0.9% 100 ml @ 200 mls/hr IVPB Q8H MANDA Rx#:[id number] levETIRAcetam IV 1,000 mg 100 100 In Saline 1 100ml.bag @ 400 mls/hr IVPB Q12HR MANDA Rx#:[id number] Intake, IV Titration 348.824 95.281 527.580 Amount Calcium Gluconate 2,000 100 mg In Sodium Chloride 0.9 % 100 ml @ 100 mls/hr IVPB ONCE ONE Rx#: [id number] Dextrose 5% in Water 1, 300 000 ml @ 75 mls/hr IV . [id number] MANDA Rx#:[id number] Magnesium Sulfate-D5w Pmx 100 1 gm In Dextrose/Water 1 100ml.bag @ 100 mls/hr IVPB Q1H MANDA Rx#: [id number] Magnesium Sulfate-D5w Pmx 200 1 gm In Dextrose/Water 1 100ml.bag @ 100 mls/hr IVPB Q1H MANDA Rx#: [id number] Norepinephrin 16 mg-0.9% 148.824 95.281 27.580 Ns Pmx 16 mg In 250 ml @ Titrate IV .Q0M [facility] Rx#: [id number] Tube Feeding 650 100 225 Other 200 210 Output: Urine 2385 3345 2210 Other: Voiding Method Indwelling Catheter Indwelling Catheter Indwelling Catheter # Bowel Movements 1 ABP, PAP, CO, CI - Last Documented Arterial Blood Pressure 99/47 - Exam PHYSICAL EXAM: VITAL SIGNS: As above GENERAL: Sitting up in bed, intubated on mechanical ventilation HEENT: Conjunctivae normal. eyes normal. Endotracheal tube present. NECK: Supple, No JVD. CARDIOVASCULAR: S1, S2 muffled. No murmur RESPIRATION: Breath sounds diminished in the bases. No rhonchi or crackles. ABDOMEN: Soft, nontender . No guarding. no masses palpable. .Bowel sounds heard. LEGS: No edema. no swelling PSYCHIATRY/NEUROLOGIcal: Cannot be performed, on mechanical ventilation Skin: no ulcer no rash Microbiology 04/09/17 21:20 Sputum Sputum Culture - Preliminary 04/08/17 16:50 Catheter Tip Catheter Tip Culture - Preliminary 04/01/17 21:10 Blood Blood Culture - Final No Growth after 144 hours 04/01/17 21:46 Blood Blood Culture - Final No Growth after 144 hours 04/01/17 21:54 Blood Blood Culture - Final No Growth after 144 hours 04/02/17 04:32 Urine,Catheterized Urine Culture - Final 03/31/17 19:45 Blood Blood Culture Gram Stain - Final 03/31/17 19:45 Blood Blood Culture - Final Enterobacter aerogenes Non Hemolytic Strep 04/01/17 16:30 Sputum Gram Stain - Final 04/01/17 16:30 Sputum Sputum Culture - Final 03/31/17 20:00 Blood Blood Culture Gram Stain - Final 03/31/17 20:00 Blood Blood Culture - Final Enterobacter aerogenes 03/29/17 19:12 Urine,Catheterized Urine Culture - Final Enterobacter aerogenes Pseudomonas aeruginosa 03/31/17 19:45 Blood Blood Culture - Final 03/31/17 20:00 Blood Blood Culture - Final - Labs CBC & Chem 7: 04/10/17 04:45 04/10/17 12:39 Labs: Abnormal Lab Results - Last 24 Hours (Table) 04/09/17 04/10/17 04/10/17 Range/Units 17:36 04:45 04:45 WBC 11.6 H (3.8-10.6) k/uL RBC 3.16 L (4.30-5.90) m/uL Hgb 8.9 L (13.0-17.5) gm/dL Hct 29.1 L (39.0-53.0) % MCHC 30.7 L (31.0-37.0) g/dL RDW 19.6 H (11.5-15.5) % Plt Count 133 L (150-450) k/uL Neutrophils # 9.9 H (1.3-7.7) k/uL ABG pH (7.35-7.45) ABG pCO2 (35-45) mmHg ABG pO2 (83-108) mmHg ABG O2 Saturation (94-97) % Sodium 149 H (137-145) mmol/L Chloride 118 H (98-107) mmol/L Glucose 101 H (74-99) mg/dL POC Glucose (mg/dL) 115 H (75-99) mg/dL Calcium 6.2 L* (8.4-10.2) mg/dL Magnesium 1.5 L (1.6-2.3) mg/dL 04/10/17 04/10/17 Range/Units 05:16 12:03 WBC (3.8-10.6) k/uL RBC (4.30-5.90) m/uL Hgb (13.0-17.5) gm/dL Hct (39.0-53.0) % MCHC (31.0-37.0) g/dL RDW (11.5-15.5) % Plt Count (150-450) k/uL Neutrophils # (1.3-7.7) k/uL ABG pH 7.49 H (7.35-7.45) ABG pCO2 30 L (35-45) mmHg ABG pO2 123 H (83-108) mmHg ABG O2 Saturation 99.0 H (94-97) % Sodium (137-145) mmol/L Chloride (98-107) mmol/L Glucose (74-99) mg/dL POC Glucose (mg/dL) 119 H (75-99) mg/dL Calcium (8.4-10.2) mg/dL Magnesium (1.6-2.3) mg/dL Microbiology - Last 24 Hours (Table) 04/09/17 21:20 Sputum Culture - Preliminary Sputum Assessment and Plan Assessment: 1. Acute renal failure secondary to sepsis with septic shock. 2. [ Septic shock secondary to Pseudomonas, currently pressor dependent.]. 3. [ Acute hypoxic respiratory failure, status post mechanical ventilation. Reintubated]. 4. [ Hypernatremia]. 5. [ Acute metabolic acidosis secondary to septic shock]. 6. Paraplegic with neurogenic bladder. Plan: Continue on current medication regime ,monitoring and symptomatic treatment. Antibiotics as per infectious disease. Weaning trials attempted as mentioned above with tracheostomy discussed for potentially tomorrow. Follow closely with multiple consults. Prognosis guarded, given multiple complex medical issues. The impression and plan of care has been dictated as directed. : I performed a history and examination of this patient, discussed the same with the dictator. I agree with the dictator's note ,documented as a scribe. Any additional findings or plans will be noted.
[2017-04-10 18:10] LABS: Glucose,Whole Blood 111 mg/dL (75-99)
[2017-04-10] MEDS: ONDANSETRON 4 MG/2 ML VIAL IVP PRN (18:47)
[2017-04-10] MEDS: NOREPINEPHRIN 16 MG-0.9%NS PMX 16 MG/250 ML ML IV SCH (22:05)
[2017-04-11 00:11] LABS: Glucose,Whole Blood 97 mg/dL (75-99)
[2017-04-11] MEDS: INSULIN ASPART 100 UNIT/ML 1 ML 10 ML VIAL SQ SCH ×4 (00:16→18:34)
[2017-04-11] MEDS: IPRATROPIUM-ALBUTEROL 3 ML NEB INHALATION SCH ×6 (03:14→23:13)
[2017-04-11] MEDS: MEROPENEM 1 GM in SODIUM CHLORIDE 0.9% 100 ML IVPB SCH ×3 (03:19→20:30)
[2017-04-11 04:40] LABS: ALT 120 U/L (21-72); AST 100 U/L (17-59); Albumin 1.9 g/dL (3.5-5.0); Alkaline Phosphatase 368 U/L (38-126); Anion Gap 5 mmol/L; Blood Urea Nitrogen 13 mg/dL (9-20); Carbon Dioxide 26 mmol/L (22-30); Chloride 118 mmol/L (98-107); Glucose 101 mg/dL (74-99); Magnesium 1.6 mg/dL (1.6-2.3); Phosphorus 2.7 mg/dL (2.5-4.5); Potassium 3.8 mmol/L (3.5-5.1); Sodium 149 mmol/L (137-145); Total Bilirubin 1.5 mg/dL (0.2-1.3); Total Protein 4.2 g/dL (6.3-8.2)
[2017-04-11 05:08] LABS: Calcium 6.4 mg/dL (8.4-10.2)
[2017-04-11] MEDS ORDERED: POTASSIUM CHLORIDE 20 MEQ in WATER FOR INJECTION 1 100ML.BAG IVPB ONE (05:14)
[2017-04-11 05:17] LABS: ABG HCO3 22 mmol/L (21-25); ABG PCO2 25 mmHg (35-45); ABG PH 7.56 (7.35-7.45); ABG PO2 143 mmHg (83-108)
[2017-04-11 05:18] LABS: ABG Base Excess -0.3 mmol/L; ABG Oxygen Saturation 99.5 % (94-97); ABG TCO2 23 mmol/L (19-24)
[2017-04-11] MEDS ORDERED: ceFAZolin 3 GM in SODIUM CHLORIDE 0.9% 100 ML IVPB ONE (06:00)
[2017-04-11] MEDS: MAGNESIUM SULFATE-D5W PMX 1 GM in DEXTROSE/WATER 1 100ML.BAG IVPB SCH ×2 (06:01→09:03)
[2017-04-11 06:22] LABS: Glucose,Whole Blood 91 mg/dL (75-99)
--- NOTE | 2017-04-11 07:26 | P.PN ---
Subjective Progress Note Date: 04/11/17 Principal diagnosis: Continuing care. This is a continue present 51-year-old white male with known history of spinal cord injury and with paraplegia suffered from significant septic shock. He's been ventilator dependent and because of his inability to wean in a timely manner, he will be taken for tracheostomy today by thoracic surgery. The patient states no pain. Seems to be improved since the last time I saw him 3 days ago. Objective - Vital Signs Vital signs: Vital Signs Temp 97.8 F 04/11/17 04:00 Pulse 82 04/11/17 07:00 Resp 21 04/11/17 07:00 BP 120/53 04/11/17 07:00 Pulse Ox 94 L 04/11/17 07:00 Intake & Output 04/10/17 04/11/17 04/11/17 18:59 06:59 18:59 Intake Total 1778.955 971.798 Output Total 3035 2840 Balance -1256.045 -1868.202 Weight 132.1 kg Intake: IV 325 900 Dextrose 5%-0.45% NaCl 1, 225 900 000 ml @ 75 mls/hr IV . [id number] MANDA Rx#:[id number] levETIRAcetam IV 1,000 mg 100 In Saline 1 100ml.bag @ 400 mls/hr IVPB Q12HR MANDA Rx#:[id number] Intake, IV Titration 908.955 21.798 Amount Dextrose 5% in Water 1, 675 000 ml @ 75 mls/hr IV . [id number] MANDA Rx#:[id number] Magnesium Sulfate-D5w Pmx 200 1 gm In Dextrose/Water 1 100ml.bag @ 100 mls/hr IVPB Q1H MANDA Rx#: [id number] Norepinephrin 16 mg-0.9% 33.955 21.798 Ns Pmx 16 mg In 250 ml @ Titrate IV .Q0M MANDA Rx#: [id number] Tube Feeding 325 50 Other 220 Output: Urine 3035 2840 Other: Voiding Method Indwelling Catheter Indwelling Catheter # Bowel Movements 1 ABP, PAP, CO, CI - Last Documented Arterial Blood Pressure 101/49 - Constitutional General appearance: Present: average body habitus - EENT Eyes: Absent: abnormal pupil - Neck Neck: Absent: lymphadenopathy - Respiratory Respiratory: bilateral: rhonchi - Cardiovascular Rhythm: regular Heart sounds: normal: S1, S2 - Gastrointestinal General gastrointestinal: Absent: soft - Integumentary Integumentary: Absent: cellulitis - Neurologic Neurologic: Present: CNII-XII intact - Musculoskeletal Musculoskeletal Comment(s): paraplegia. - Labs CBC & Chem 7: 04/10/17 04:45 04/11/17 04:15 Labs: Abnormal Lab Results - Last 24 Hours (Table) 04/10/17 04/10/17 04/11/17 Range/Units 12:03 18:08 04:15 ABG pH (7.35-7.45) ABG pCO2 (35-45) mmHg ABG pO2 (83-108) mmHg ABG O2 Saturation (94-97) % Sodium 149 H (137-145) mmol/L Chloride 118 H (98-107) mmol/L Glucose 101 H (74-99) mg/dL POC Glucose (mg/dL) 119 H 111 H (75-99) mg/dL Calcium 6.4 L* (8.4-10.2) mg/dL Total Bilirubin 1.5 H (0.2-1.3) mg/dL AST 100 H (17-59) U/L ALT 120 H (21-72) U/L Alkaline Phosphatase 368 H (38-126) U/L Total Protein 4.2 L (6.3-8.2) g/dL Albumin 1.9 L (3.5-5.0) g/dL 04/11/17 Range/Units 05:05 ABG pH 7.56 H (7.35-7.45) ABG pCO2 25 L (35-45) mmHg ABG pO2 143 H (83-108) mmHg ABG O2 Saturation 99.5 H (94-97) % Sodium (137-145) mmol/L Chloride (98-107) mmol/L Glucose (74-99) mg/dL POC Glucose (mg/dL) (75-99) mg/dL Calcium (8.4-10.2) mg/dL Total Bilirubin (0.2-1.3) mg/dL AST (17-59) U/L ALT (21-72) U/L Alkaline Phosphatase (38-126) U/L Total Protein (6.3-8.2) g/dL Albumin (3.5-5.0) g/dL Microbiology - Last 24 Hours (Table) 04/08/17 16:50 Catheter Tip Culture - Final Catheter Tip 04/09/17 21:20 Gram Stain - Preliminary Sputum Sputum Culture - Preliminary Assessment and Plan (1) Paraplegia following spinal cord injury Current Visit: Yes Status: Acute Code(s): G82.20 - PARAPLEGIA, UNSPECIFIED SNOMED Code(s): 13029952 (2) Gross hematuria Current Visit: Yes Status: Acute Code(s): R31.0 - GROSS HEMATURIA SNOMED Code(s): 704655534 (3) Uremia Current Visit: Yes Status: Acute Code(s): N19 - UNSPECIFIED KIDNEY FAILURE SNOMED Code(s): 45805352 (4) Seizure Current Visit: Yes Status: Acute Code(s): R56.9 - UNSPECIFIED CONVULSIONS SNOMED Code(s): 36162544 (5) Toxic metabolic encephalopathy Current Visit: Yes Status: Acute Code(s): G92 - TOXIC ENCEPHALOPATHY SNOMED Code(s): 949525892 (6) Septic shock Current Visit: Yes Status: Acute Code(s): A41.9 - SEPSIS, UNSPECIFIED ORGANISM; R65.21 - SEVERE SEPSIS WITH SEPTIC SHOCK SNOMED Code(s): 81785795 Plan: continue current regimen of treatment. Watch lites closely. Check CBC and CMP in a.m. per Tracheostomy to be done today. Appreciate appropriate senior solutions workflow consultant input. She orders otherwise. Time with Patient: Less than 30
[2017-04-11 07:45] LABS: Anisocytosis Moderate; Basophils % (A) 0 %; Eosinophils # (A) 0.1 k/uL (0-0.7); Eosinophils % (A) 1 %; HCT 27.3 % (39.0-53.0); HGB 8.5 gm/dL (13.0-17.5); Hypochromasia Slight; Lymphocytes # (A) 0.8 k/uL (1.0-4.8); Lymphocytes % (A) 10 %; MCH 28.5 pg (25.0-35.0); MCHC 31.1 g/dL (31.0-37.0); MCV 91.5 fL (80.0-100.0); Mean Platelet Volume 10.3; Monocytes # (A) 0.4 k/uL (0-1.0); Monocytes % (A) 5 %; Neutrophils # (A) 6.6 k/uL (1.3-7.7); Neutrophils % (A) 82 %; Platelet Count 148 k/uL (150-450); RBC 2.98 m/uL (4.30-5.90); RDW 20.1 % (11.5-15.5); WBC 8.1 k/uL (3.8-10.6)
[2017-04-11 08:32] LABS: INR 0.9 (<1.2); Prothrombin Time 9.4 sec (9.0-12.0)
--- NOTE | 2017-04-11 08:41 | P.PN ---
Subjective Progress Note Date: 04/11/17 51-year-old male with a history of respiratory failure secondary to overwhelming sepsis and septic shock caused by urinary tract infection secondary to Enterobacter as well as Pseudomonas. The patient's blood cultures were also positive for Enterobacter. A couple days back, the patient was extubated and needed to be reintubated the very next day for respiratory failure. The patient was a difficult reintubation. A tracheostomy is scheduled for Monday by one of the thoracic surgeons. Daily, we will been doing her eruption of sedation with weaning trials and each day, he's done very poorly. Today again on PSV 5 CPAP of 5, the patient becomes very diaphoretic and tachycardic hypertensive and With high respiratory rate. He's was placed back on the ventilator., Tracheostomy would be important in terms of trying to get the patient off the ventilator. Currently the patient's vent settings are the assist control mode, rate of 22, tidal volume of 450, FiO2 of 40%, PEEP of 5. Arterial blood gases show a PaO2 of 123 a PaCO2 of 30 and a pH 7.49. The blood gases were done on 50%. The patient's IV is D5W at 75 mL an hour norepinephrine at 4 mics per minute and tube feeds at 25 mL an hour with a goal of 50. Patient's tube feeds include vital high protein. On 04/11/2017 I'm seeing this patient for a follow-up. As mentioned earlier the patient was treated for septic shock and he was aggressively resuscitated with IV fluids and currently is hemodynamically stable. Nevertheless he is in obvious fluid overload with increased edema in lower extremities and upper extremity is bilaterally and today's chest x-ray shows small bilateral pleural effusion which was not present on previous chest x-rays. ET tube is in a good location. As mentioned earlier the patient has failed extubation twice and the plan is to proceed with a tracheostomy tube insertion today. He will also need a PEG tube insertion. Hemodynamically the patient is still borderline hypotensive on 3 mics of levo fed for hemodynamic support. Nevertheless, he is producing more than 200 mL of urine output on an hourly basis. His sodium is elevated at 145 and the patient is receiving D5 water at the rate of 1 75 mL an hour. He is an assist-control mode of ventilation. Currently is on assist control of 22, tidal volume of 450, FiO2 of 40% and a PEEP of 5. His morning blood Showed a pH of 7.56 with a pCO2 of 34 and pO2 of 143. He is afebrile. The blood culture was positive for Enterobacter and the patient is on IV Merrem. Urine cultures positive for Enterobacter and Pseudomonas. As mentioned earlier, the patient is paraplegic. He has leg wounds bilaterally which are more like excoriation and some degree of skin sloughing due to his peripheral edema. He also has some similar findings on his coccyx. His white cell count is up from 42 down to 8.1 and it was essentially related to his sepsis. Clinically, the patient is awake. The patient is following commands and answering simple questions. His been off Diprivan for the past 24 hours. Objective - Vital Signs Vital signs: Vital Signs Temp 97.8 F 04/11/17 04:00 Pulse 75 04/11/17 08:05 Resp 21 04/11/17 07:00 BP 120/53 04/11/17 07:00 Pulse Ox 94 L 04/11/17 07:00 Intake & Output 04/10/17 04/11/17 04/11/17 18:59 06:59 18:59 Intake Total 1778.955 971.798 Output Total 3035 2840 Balance -1256.045 -1868.202 Weight 132.1 kg Intake: IV 325 900 Dextrose 5%-0.45% NaCl 1, 225 900 000 ml @ 75 mls/hr IV . [id number] MANDA Rx#:[id number] levETIRAcetam IV 1,000 mg 100 In Saline 1 100ml.bag @ 400 mls/hr IVPB Q12HR MANDA Rx#:[id number] Intake, IV Titration 908.955 21.798 Amount Dextrose 5% in Water 1, 675 000 ml @ 75 mls/hr IV . [id number] MANDA Rx#:[id number] Magnesium Sulfate-D5w Pmx 200 1 gm In Dextrose/Water 1 100ml.bag @ 100 mls/hr IVPB Q1H MANDA Rx#: [id number] Norepinephrin 16 mg-0.9% 33.955 21.798 Ns Pmx 16 mg In 250 ml @ Titrate IV .Q0M MANDA Rx#: [id number] Tube Feeding 325 50 Other 220 Output: Urine 3035 2840 Other: Voiding Method Indwelling Catheter Indwelling Catheter # Bowel Movements 1 ABP, PAP, CO, CI - Last Documented Arterial Blood Pressure 101/49 - Exam No acute distress, the patient is not sedated. Endotracheal tube and NG tube in place HEENT examination is grossly unremarkable. Mucous membranes are moist. No oral lesions. Neck supple. Full range of motion. No adenopathy thyromegaly or neck vein distention. Cardiovascular examination reveals regular rhythm rate. S1-S2 normal. No S3 or S4. No discernible murmur noted. Lungs reveal a few scattered rhonchi. No wheezes or crackles. Breath sounds are diminished. Abdomen soft bowel sounds are heard. No masses or tenderness. Extremities shows extensive amount of edema in lower extremities is reaching to the thighs and the same time the patient has chronic deformity lower extremities bilaterally and the skin is excoriated and there is some superficial ulceration and appropriate dressings have been applied lower extremities bilaterally. The patient also has a PICC line in the right upper extremity. Skin is showing areas of excoriation and superficial ulceration in the coccyx and lower extremities bilaterally. Neurologic examination shows that the patient is paraplegic and examination is consistent with paraplegia which is a chronic finding as the patient is has contraction and atrophied related to paraplegia. Cranial nerves are intact. The patient is following commands and answering questions appropriately and he' s been off Diprivan for now. - Labs CBC & Chem 7: 04/11/17 04:15 04/11/17 04:15 Labs: Abnormal Lab Results - Last 24 Hours (Table) 04/10/17 04/10/17 04/11/17 Range/Units 12:03 18:08 04:15 RBC (4.30-5.90) m/uL Hgb (13.0-17.5) gm/dL Hct (39.0-53.0) % RDW (11.5-15.5) % Plt Count (150-450) k/uL Lymphocytes # (1.0-4.8) k/uL ABG pH (7.35-7.45) ABG pCO2 (35-45) mmHg ABG pO2 (83-108) mmHg ABG O2 Saturation (94-97) % Sodium 149 H (137-145) mmol/L Chloride 118 H (98-107) mmol/L Glucose 101 H (74-99) mg/dL POC Glucose (mg/dL) 119 H 111 H (75-99) mg/dL Calcium 6.4 L* (8.4-10.2) mg/dL Total Bilirubin 1.5 H (0.2-1.3) mg/dL AST 100 H (17-59) U/L ALT 120 H (21-72) U/L Alkaline Phosphatase 368 H (38-126) U/L Total Protein 4.2 L (6.3-8.2) g/dL Albumin 1.9 L (3.5-5.0) g/dL 04/11/17 04/11/17 Range/Units 04:15 05:05 RBC 2.98 L (4.30-5.90) m/uL Hgb 8.5 L (13.0-17.5) gm/dL Hct 27.3 L (39.0-53.0) % RDW 20.1 H (11.5-15.5) % Plt Count 148 L (150-450) k/uL Lymphocytes # 0.8 L (1.0-4.8) k/uL ABG pH 7.56 H (7.35-7.45) ABG pCO2 25 L (35-45) mmHg ABG pO2 143 H (83-108) mmHg ABG O2 Saturation 99.5 H (94-97) % Sodium (137-145) mmol/L Chloride (98-107) mmol/L Glucose (74-99) mg/dL POC Glucose (mg/dL) (75-99) mg/dL Calcium (8.4-10.2) mg/dL Total Bilirubin (0.2-1.3) mg/dL AST (17-59) U/L ALT (21-72) U/L Alkaline Phosphatase (38-126) U/L Total Protein (6.3-8.2) g/dL Albumin (3.5-5.0) g/dL Microbiology - Last 24 Hours (Table) 04/08/17 16:50 Catheter Tip Culture - Final Catheter Tip 04/09/17 21:20 Gram Stain - Preliminary Sputum Sputum Culture - Preliminary Assessment and Plan Plan: Impression: 1 acute septic shock secondary to urinary tract infection, acute cystitis secondary to Enterobacter aerogenes and pseudomonas aeruginosa as noted in the urine. His blood cultures are positive for Enterobacter. Blood cultures negative. He remains on meropenem, and the patient is on low-dose levo fed for blood pressure support which is currently running at 3 mics. 2 acute hypoxic respiratory failure secondary to above. Failed extubation requiring reintubation. The plan is for probable tracheostomy on 04/11/2017 3 acute metabolic, lactic acidosis secondary to 1. 4 history of paraplegia and neurogenic bladder. 5 acute kidney injury secondary to sepsis and septic shock. 6 history of nephrolithiasis/bilateral. 7 history of multiple surgeries including skin graft for pressure sores, right ureteroscopy with lithotripsy in 2005 and external sphincterotomy 1990 and 1994. 8 hypotension and the patient is still requiring low-dose pressors for blood pressure support 9 extensive edema in lower extremities bilaterally along with superficial scale ulcerations and excoriation and sloughing in the lower extremities and coccyx. 10 leukocytosis, improved 11 acute respiratory alkalosis 12 small bilateral pleural effusions. 13 abnormal LFTs with elevation and alkaline phosphatase, rule out a component of the calculus cholecystitis. Ultrasound of the gallbladder need to follow. Plan The origin plan is to proceed with a PEG and trach. As such no weaning trials will be done. We'll try to wean him off the pressors as the patient is on low dose of norepinephrine infusion. Increase the D5 water to 1 25 mL an hour. At 200 mL of free water through the NG tube. No diaphoresis yet. Apply Silvadene cream to the lower extremities bilaterally and appropriate dressings and apply Silvadene cream to his coccyx. Continue IV Merrem. Resume tube feeds. His blood gases from today shows a component of respiratory alkalosis. Will drop with either ordered to 400s. Dropped a respiratory rate to 18. Continue the supportive care. We'll continue to follow. Proceed with an ultrasound of the gallbladder and monitor the liver function tests. This Is a critically care evaluate was done and 40 minutes. Time with Patient: Greater than 30
[2017-04-11] MEDS ORDERED: ceFAZolin IN SWFI 2 GM/20 ML SYRINGE IVP ONE (08:45)
[2017-04-11] MEDS: levETIRAcetam IV 1,000 MG in SALINE 1 100ML.BAG IVPB SCH ×2 (09:03→22:51)
[2017-04-11] MEDS: CHLORHEXIDINE GLUCONATE 15 ML CUP MUCOUS MEM SCH ×2 (09:03→22:52)
[2017-04-11] MEDS: PANTOPRAZOLE 40 MG/10 ML VIAL IV SCH (09:03)
[2017-04-11] MEDS: MIDODRINE 5 MG TAB PO SCH ×3 (09:03→18:34)
[2017-04-11] MEDS: DEXTROSE 5% IN WATER 1,000 ML IV SCH ×3 (09:58→20:14)
[2017-04-11] MEDS: BISACODYL 10 MG SUPP RECTAL SCH (09:58)
--- NOTE | 2017-04-11 10:06 | PN ---
PROGRESS NOTE DATE OF SERVICE: 04/10/2017. REASON FOR FOLLOWUP: 1. Gram-negative urinary sepsis. 2. Possible aspiration pneumonia. INTERVAL HISTORY: The patient is afebrile. He is hemodynamically stable. Currently off pressor support. FiO2 is at 40%. The patient is breathing comfortably. He is awake, alert. Denies any chest or abdominal pain, no diarrhea. EXAMINATION: Blood pressure 119/63 with a pulse of 93, temperature 98. He is 92% on 40% FiO2. General description is a middle-aged male lying in bed in no distress. Respiratory system: Unlabored breathing, clear to auscultation anteriorly. Heart S1, S2. Regular rate and rhythm. ABDOMEN: Soft, no tenderness. LABS: Hemoglobin 8.8, white count 11.6, BUN 15, creatinine 0.70. Blood and sputum cultures repeat currently pending. IMPRESSION/PLAN: Patient with Enterobacter urinary tract infection with secondary bacteremia for which the patient currently covered with meropenem in a patient who did have respiratory distress and possible component of aspiration pneumonitis. Waiting for the sputum culture to finalize to adjust antibiotic further. Family present at bedside. Their questions were answered. MMODL / IJN: [id number] / LUKASZ
--- NOTE | 2017-04-11 10:22 | XR ---
EXAMINATION TYPE: XR chest 1V portable DATE OF EXAM: 04/11/2017 COMPARISON: 04/10/2017 HISTORY: Tube placement TECHNIQUE: Single frontal view of the chest is obtained. FINDINGS: NG tube was pulled back into the upper esophagus and needs to be repositioned. ET tube sta ble. Bilateral infiltrate and pleural effusion stable. Right-sided central venous catheter somewhat l ow in position within the right atrium. No pneumothorax. Underlying heart failure not excluded. Hyper trophic changes of the spine. IMPRESSION: 1. Stable diffuse airspace disease with bilateral effusions. Underlying CHF in the differential. 2. NG tube is been pulled back and now appears within the proximal esophagus. Report called to ICU jessie toth.
--- NOTE | 2017-04-11 10:52 | US ---
EXAMINATION TYPE: US gallbladder DATE OF EXAM: 04/11/2017 COMPARISON: CT abdomen pelvis dated 03/29/2017. CLINICAL HISTORY: rule out cholecystitis. Extremely limited exam on intubated ICU patient who is morb idly obese EXAM MEASUREMENTS: Liver Length: 19.4 Gallbladder Wall: N/A CBD: 0.4m Right Kidney: 11.0 x 4.4 x 5.5cm Pancreas: obscured by bowel gas Liver: very difficult to penetrate . This limits evaluation for hepatic masses. Gallbladder: unable to detect that patient had a gallbladder, recent CT mentioned GB wnl Evidence for sonographic Onofre's sign: no CBD: wnl Right Kidney: limited views with redemonstration of multiple hyperechoic punctate calculi. No eviden ce of hydronephrosis. Trace amount of free fluid seen at posterior right lobe of liver IMPRESSION: 1. The gallbladder is sonographically unidentified due to patient body habitus. This was noted to be within normal limits on the recent CT of 03/29/2017. No dilation of the common bile duct. 2. Trace amount of perihepatic free fluid. 3. Redemonstration of right-sided nephrolithiasis without evidence of hydronephrosis. 4. Findings of at least moderate grade hepatic steatosis.
[2017-04-11] MEDS ORDERED: ceFAZolin 2,000 MG in DEXTROSE/WATER 1 50ML.BAG IVPB ONE (11:00)
--- NOTE | 2017-04-11 11:19 | XR ---
EXAMINATION TYPE: XR chest 1V portable DATE OF EXAM: 04/11/2017 COMPARISON: 04/11/2017 at 6:04 AM HISTORY: Orogastric tube placement TECHNIQUE: Single frontal view of the chest is obtained. FINDINGS: There are similar small pleural effusions with associated bibasilar airspace disease. Mckenzie ent rotation shifting the mediastinum to the left. Enteric tube is similarly placed with its distal t ip at the level aortic arch. Newly inserted or oral gastric tube has its fenestrated portion beyond t he gastroesophageal junction. Distal tip is beyond the distal [id number], appropriately placed. Ri ght-sided central venous catheter terminates in the high right atrium, unchanged from the prior. Mild pulmonary vascular congestion remains. Cardiomegaly is unchanged. IMPRESSION: Newly placed orogastric tube, appropriately placed. Remainder the exam is stable from th e prior with stable lines, tubes, mild pulmonary vascular congestion, and small pleural effusions.
--- NOTE | 2017-04-11 11:21 | XR ---
EXAMINATION TYPE: XR abdomen 1V DATE OF EXAM: 04/11/2017 COMPARISON: NONE HISTORY: NG tube placement TECHNIQUE: One view abdominal series FINDINGS: Single limited image of the upper abdomen demonstrates prominent bowel loops with an NG tube seen coi led in the left upper quadrant likely within the body of the stomach. Bilateral infiltrate and small effusion noted. Hypertrophic change of the spine. IMPRESSION: 1. NG tube within the left upper quadrant likely within the body of the stomach.
[2017-04-11 12:01] LABS: Glucose,Whole Blood 99 mg/dL (75-99)
[2017-04-11] MEDS: ONDANSETRON 4 MG/2 ML VIAL IVP PRN (13:55)
[2017-04-11 18:14] LABS: Glucose,Whole Blood 108 mg/dL (75-99)
[2017-04-11 19:13] LABS: Anion Gap 4 mmol/L; Blood Urea Nitrogen 13 mg/dL (9-20); Carbon Dioxide 27 mmol/L (22-30); Chloride 115 mmol/L (98-107); Glucose 108 mg/dL (74-99); Potassium 3.6 mmol/L (3.5-5.1); Sodium 146 mmol/L (137-145)
[2017-04-11 19:25] LABS: Calcium 6.2 mg/dL (8.4-10.2)
[2017-04-12 00:08] LABS: Glucose,Whole Blood 121 mg/dL (75-99)
[2017-04-12] MEDS: INSULIN ASPART 100 UNIT/ML 1 ML 10 ML VIAL SQ SCH ×4 (00:12→18:05)
[2017-04-12] MEDS: DEXTROSE 5% IN WATER 1,000 ML IV SCH ×2 (03:27→10:47)
[2017-04-12] MEDS: MEROPENEM 1 GM in SODIUM CHLORIDE 0.9% 100 ML IVPB SCH ×3 (03:27→20:02)
[2017-04-12] MEDS: IPRATROPIUM-ALBUTEROL 3 ML NEB INHALATION SCH ×6 (03:30→23:42)
[2017-04-12 04:44] LABS: Anisocytosis Slight; Basophils % (A) 0 %; Eosinophils % (A) 1 %; HCT 24.8 % (39.0-53.0); HGB 7.7 gm/dL (13.0-17.5); Hypochromasia Slight; Lymphocytes # (A) 0.1 k/uL (1.0-4.8); Lymphocytes % (A) 3 %; MCH 28.6 pg (25.0-35.0); Monocytes # (A) 0.1 k/uL (0-1.0); Monocytes % (A) 3 %; Neutrophils # (A) 3.5 k/uL (1.3-7.7); Neutrophils % (A) 93 %; Platelet Count 125 k/uL (150-450); RBC 2.69 m/uL (4.30-5.90); RDW 18.2 % (11.5-15.5); WBC 3.7 k/uL (3.8-10.6)
--- NOTE | 2017-04-12 04:49 | PN ---
PROGRESS NOTE DATE OF SERVICE: 04/11/2017 REASON FOR FOLLOWUP: Gram-negative UTI with sepsis. INTERVAL HISTORY: The patient is afebrile, still requiring pressor support at 3 mcg of Levophed. The patient has been breathing comfortably. He is awake, alert, follows commands. Denies having any abdominal pain. Tolerating his tube feeds. No diarrhea. PHYSICAL EXAMINATION: On examination, blood pressure 108/47 with a pulse of 77, temperature of 98. He is 94% on 40% FiO2. General description is a middle-aged male lying in bed in no distress. RESPIRATORY SYSTEM: Unlabored breathing, clear to auscultation anteriorly. HEART: S1, S2. Regular rate and rhythm. ABDOMEN: Soft, no distention. EXTREMITIES: 2+ edema of feet. Examination of the back area: Minimal excoriation. No significant skin breakdown. The scrotum was noticed to have significant swelling and some superficial ulceration. LABS: Hemoglobin is 8.5, white count normalized to 8.1 with a BUN of 13, creatinine 0.70. DIAGNOSTIC IMPRESSION AND PLAN: 1. Patient with Enterobacter urinary tract infection with bacteremia and sepsis for which the patient currently on meropenem because of his multiple antibiotic resistance. 2. Sacral area , will apply Calmoseptine lotion to keep frequent change of his position. 3. Scrotal swelling with some superficial incision and has been advised to apply nystatin powder twice a day. MMODL / IJN: [id number] / MTDElías
[2017-04-12 05:01] LABS: ABG Base Excess -0.7 mmol/L; ABG HCO3 22 mmol/L (21-25); ABG PCO2 29 mmHg (35-45); ABG PH 7.49 (7.35-7.45); ABG PO2 97 mmHg (83-108); ABG TCO2 23 mmol/L (19-24)
[2017-04-12 05:03] LABS: Anion Gap 4 mmol/L; Blood Urea Nitrogen 13 mg/dL (9-20); Carbon Dioxide 26 mmol/L (22-30); Chloride 114 mmol/L (98-107); Glucose 108 mg/dL (74-99); Magnesium 1.6 mg/dL (1.6-2.3); Potassium 3.4 mmol/L (3.5-5.1); Sodium 144 mmol/L (137-145)
[2017-04-12 05:18] LABS: Calcium 6.2 mg/dL (8.4-10.2)
[2017-04-12] MEDS ORDERED: POTASSIUM CHLORIDE 20 MEQ in WATER FOR INJECTION 1 100ML.BAG IVPB ONE (05:19)
[2017-04-12] MEDS ORDERED: CALCIUM GLUCONATE 1,000 MG in SODIUM CHLORIDE 0.9% 100 ML IVPB ONE (05:38)
[2017-04-12] MEDS: SODIUM CHLORIDE 0.9% 99 ML with VASOPRESSIN 20 UNIT IV SCH ×4 (06:05→14:49)
[2017-04-12 06:38] LABS: Glucose,Whole Blood 104 mg/dL (75-99)
--- NOTE | 2017-04-12 07:58 | P.PN ---
Subjective Progress Note Date: 04/12/17 Principal diagnosis: Continuing care. 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 There is urinary culture showing pseudomonas and Enterobacter aerogenes. The patient is on low-dose pressors still and he is still becoming slightly hypotensive and having a slow wean. Tracheostomy and PEG tube are planned due to difficulty of weaning from ventilator. The patient complains of no pain. Objective - Vital Signs Vital signs: Vital Signs Temp 99.2 F 04/12/17 04:00 Pulse 81 04/12/17 07:50 Resp 23 04/12/17 07:00 BP 92/46 04/12/17 07:00 Pulse Ox 94 L 04/12/17 07:00 Intake & Output 04/11/17 04/12/17 04/12/17 18:59 06:59 18:59 Intake Total 1096.214 3977.188 Output Total 2375 1580 Balance -660.291 526.188 Weight 125.9 kg Intake: IV 1475 1625 Dextrose 5% in Water 1, 1625 000 ml @ 125 mls/hr IV . Q8H MANDA Rx#:[id number] Dextrose 5%-0.45% NaCl 1, 1275 000 ml @ 75 mls/hr IV . [id number] MANDA Rx#:[id number] Magnesium Sulfate-D5w Pmx 100 1 gm In Dextrose/Water 1 100ml.bag @ 100 mls/hr IVPB Q1H MANDA Rx#: [id number] Meropenem 1 gm In Sodium 100 Chloride 0.9% 100 ml @ 200 mls/hr IVPB Q8H MANDA Rx#:[id number] Intake, IV Titration 48.709 91.188 Amount Norepinephrin 16 mg-0.9% 48.709 91.188 Ns Pmx 16 mg In 250 ml @ Titrate IV .Q0M MANDA Rx#: [id number] Tube Feeding 131 190 Other 60 200 Output: Urine 2375 1580 Other: Voiding Method Indwelling Catheter Indwelling Catheter ABP, PAP, CO, CI - Last Documented Arterial Blood Pressure 66/45 - Constitutional General appearance: Present: average body habitus - EENT Eyes: Absent: abnormal pupil - Respiratory Respiratory: bilateral: CTA - Cardiovascular Rhythm: regular Heart sounds: normal: S1, S2 - Gastrointestinal General gastrointestinal: Present: soft. Absent: tenderness - Integumentary Integumentary: Absent: rash - Neurologic Neurologic Comment(s): Paraplegia. - Labs CBC & Chem 7: 04/12/17 04:30 04/12/17 04:30 Labs: Abnormal Lab Results - Last 24 Hours (Table) 04/11/17 04/11/17 04/12/17 Range/Units 18:13 18:40 00:04 WBC (3.8-10.6) k/uL RBC (4.30-5.90) m/uL Hgb (13.0-17.5) gm/dL Hct (39.0-53.0) % RDW (11.5-15.5) % Plt Count (150-450) k/uL Lymphocytes # (1.0-4.8) k/uL ABG pH (7.35-7.45) ABG pCO2 (35-45) mmHg ABG O2 Saturation (94-97) % Sodium 146 H (137-145) mmol/L Potassium (3.5-5.1) mmol/L Chloride 115 H (98-107) mmol/L Glucose 108 H (74-99) mg/dL POC Glucose (mg/dL) 108 H 121 H (75-99) mg/dL Calcium 6.2 L* (8.4-10.2) mg/dL 04/12/17 04/12/17 04/12/17 Range/Units 04:30 04:30 04:55 WBC 3.7 L (3.8-10.6) k/uL RBC 2.69 L (4.30-5.90) m/uL Hgb 7.7 L (13.0-17.5) gm/dL Hct 24.8 L (39.0-53.0) % RDW 18.2 H (11.5-15.5) % Plt Count 125 L (150-450) k/uL Lymphocytes # 0.1 L (1.0-4.8) k/uL ABG pH 7.49 H (7.35-7.45) ABG pCO2 29 L (35-45) mmHg ABG O2 Saturation 98.0 H (94-97) % Sodium (137-145) mmol/L Potassium 3.4 L (3.5-5.1) mmol/L Chloride 114 H (98-107) mmol/L Glucose 108 H (74-99) mg/dL POC Glucose (mg/dL) (75-99) mg/dL Calcium 6.2 L* (8.4-10.2) mg/dL 04/12/17 Range/Units 06:25 WBC (3.8-10.6) k/uL RBC (4.30-5.90) m/uL Hgb (13.0-17.5) gm/dL Hct (39.0-53.0) % RDW (11.5-15.5) % Plt Count (150-450) k/uL Lymphocytes # (1.0-4.8) k/uL ABG pH (7.35-7.45) ABG pCO2 (35-45) mmHg ABG O2 Saturation (94-97) % Sodium (137-145) mmol/L Potassium (3.5-5.1) mmol/L Chloride (98-107) mmol/L Glucose (74-99) mg/dL POC Glucose (mg/dL) 104 H (75-99) mg/dL Calcium (8.4-10.2) mg/dL Microbiology - Last 24 Hours (Table) 03/29/17 19:12 Urine Culture - Final Urine,Catheterized Enterobacter aerogenes Pseudomonas aeruginosa 04/09/17 21:20 Gram Stain - Preliminary Sputum Sputum Culture - Preliminary Assessment and Plan (1) Paraplegia following spinal cord injury Current Visit: Yes Status: Acute Code(s): G82.20 - PARAPLEGIA, UNSPECIFIED SNOMED Code(s): 84131338 (2) Gross hematuria Current Visit: Yes Status: Acute Code(s): R31.0 - GROSS HEMATURIA SNOMED Code(s): 284881378 (3) Uremia Current Visit: Yes Status: Acute Code(s): N19 - UNSPECIFIED KIDNEY FAILURE SNOMED Code(s): 87224011 (4) Seizure Current Visit: Yes Status: Acute Code(s): R56.9 - UNSPECIFIED CONVULSIONS SNOMED Code(s): 23449278 (5) Toxic metabolic encephalopathy Current Visit: Yes Status: Acute Code(s): G92 - TOXIC ENCEPHALOPATHY SNOMED Code(s): 499387542 (6) Septic shock Current Visit: Yes Status: Acute Code(s): A41.9 - SEPSIS, UNSPECIFIED ORGANISM; R65.21 - SEVERE SEPSIS WITH SEPTIC SHOCK SNOMED Code(s): 47679442 Plan: Continue to hopefully wean off of pressors. Check CBC, CMP in a.m. We will continue to follow with critical care. Prognosis is guarded secondary to his multiple comorbidities but he is significantly improved since his initial septic shock element. We'll continue to follow.
[2017-04-12] MEDS: levETIRAcetam IV 1,000 MG in SALINE 1 100ML.BAG IVPB SCH ×2 (08:09→21:50)
[2017-04-12] MEDS: CHLORHEXIDINE GLUCONATE 15 ML CUP MUCOUS MEM SCH ×2 (08:10→21:49)
[2017-04-12] MEDS: MIDODRINE 5 MG TAB PO SCH ×3 (08:10→16:45)
[2017-04-12] MEDS: MAGNESIUM SULFATE-D5W PMX 1 GM in DEXTROSE/WATER 1 100ML.BAG IVPB SCH ×2 (08:10→14:50)
[2017-04-12] MEDS: PANTOPRAZOLE 40 MG/10 ML VIAL IV SCH (08:10)
--- NOTE | 2017-04-12 08:11 | P.PN ---
Subjective Progress Note Date: 04/12/17 Principal diagnosis: Acute septic shock secondary to urinary tract infection. Acute cystitis secondary to Enterobacter regimen knees and Pseudomonas in the urine. Acute hypoxic respiratory failure requiring mechanical ventilation with failure to wean. Continued hypotension requiring pressor support. New-onset seizure disorder. History of quadriplegia, neurogenic bladder, intermittent urinary retention with self-catheterization, GERD, kidney stones, coccygeal ulcers with skin grafts. Remains awake and alert on mechanical ventilation. Was supposed to have tracheostomy and PEG tube placement yesterday, however procedure was canceled secondary to continued hypotension requiring pressor support with Levophed. Patient continues to remain hypotensive on Levophed with added vasopressin currently. Objective - Vital Signs Vital signs: Vital Signs Temp 99.2 F 04/12/17 04:00 Pulse 81 04/12/17 07:50 Resp 23 04/12/17 07:00 BP 92/46 04/12/17 07:00 Pulse Ox 94 L 04/12/17 07:00 Intake & Output 04/11/17 04/12/17 04/12/17 18:59 06:59 18:59 Intake Total 4032.669 2024.188 Output Total 2375 1580 Balance -660.291 526.188 Weight 125.9 kg Intake: IV 1475 1625 Dextrose 5% in Water 1, 1625 000 ml @ 125 mls/hr IV . Q8H MANDA Rx#:[id number] Dextrose 5%-0.45% NaCl 1, 1275 000 ml @ 75 mls/hr IV . [id number] MANDA Rx#:[id number] Magnesium Sulfate-D5w Pmx 100 1 gm In Dextrose/Water 1 100ml.bag @ 100 mls/hr IVPB Q1H MANDA Rx#: [id number] Meropenem 1 gm In Sodium 100 Chloride 0.9% 100 ml @ 200 mls/hr IVPB Q8H MANDA Rx#:[id number] Intake, IV Titration 48.709 91.188 Amount Norepinephrin 16 mg-0.9% 48.709 91.188 Ns Pmx 16 mg In 250 ml @ Titrate IV .Q0M MANDA Rx#: [id number] Tube Feeding 131 190 Other 60 200 Output: Urine 2375 1580 Other: Voiding Method Indwelling Catheter Indwelling Catheter ABP, PAP, CO, CI - Last Documented Arterial Blood Pressure 66/45 - Constitutional General appearance: Present: cooperative, no acute distress, obese - Respiratory Details: Sounds diminished bilaterally. Respirations even, nonlabored on mechanical ventilation. Current ventilator settings assist control mode, FiO2 40%, tidal volume 400, respiratory rate 18, PEEP 5. 7.5 ET tube present, 26 at the lip. Chest x-ray reviewed, small bilateral pleural effusions remain. - Cardiovascular Details: S1, S2 present. Regular rate and rhythm, sinus rhythm on telemetry. No murmur present. Palpable peripheral pulses bilaterally. Edema present bilateral lower extremities. SCDs present. Right radial arterial line, right brachial PICC line present. - Gastrointestinal Gastrointestinal Comment(s): Abdomen soft, nontender, nondistended. Hypoactive bowel sounds present 4 quadrants. OG tube present, currently to low intermittent suction in preparation for possible procedure today. Previously was tolerating tube feeds well. - Genitourinary Genitourinary Comment(s): Mclaughlin present draining clear, yellow urine. Output 75-200 mL per hour. - Neurologic Neurologic Comment(s): Following all commands, nods and shakes had appropriately to questions. Off sedation for greater than 24 hours. Neurologic: Present: CNII-XII intact - Allied health notes Allied health notes reviewed: nursing - Labs CBC & Chem 7: 04/12/17 04:30 04/12/17 04:30 Labs: Abnormal Lab Results - Last 24 Hours (Table) 04/11/17 04/11/17 04/12/17 Range/Units 18:13 18:40 00:04 WBC (3.8-10.6) k/uL RBC (4.30-5.90) m/uL Hgb (13.0-17.5) gm/dL Hct (39.0-53.0) % RDW (11.5-15.5) % Plt Count (150-450) k/uL Lymphocytes # (1.0-4.8) k/uL ABG pH (7.35-7.45) ABG pCO2 (35-45) mmHg ABG O2 Saturation (94-97) % Sodium 146 H (137-145) mmol/L Potassium (3.5-5.1) mmol/L Chloride 115 H (98-107) mmol/L Glucose 108 H (74-99) mg/dL POC Glucose (mg/dL) 108 H 121 H (75-99) mg/dL Calcium 6.2 L* (8.4-10.2) mg/dL 04/12/17 04/12/17 04/12/17 Range/Units 04:30 04:30 04:55 WBC 3.7 L (3.8-10.6) k/uL RBC 2.69 L (4.30-5.90) m/uL Hgb 7.7 L (13.0-17.5) gm/dL Hct 24.8 L (39.0-53.0) % RDW 18.2 H (11.5-15.5) % Plt Count 125 L (150-450) k/uL Lymphocytes # 0.1 L (1.0-4.8) k/uL ABG pH 7.49 H (7.35-7.45) ABG pCO2 29 L (35-45) mmHg ABG O2 Saturation 98.0 H (94-97) % Sodium (137-145) mmol/L Potassium 3.4 L (3.5-5.1) mmol/L Chloride 114 H (98-107) mmol/L Glucose 108 H (74-99) mg/dL POC Glucose (mg/dL) (75-99) mg/dL Calcium 6.2 L* (8.4-10.2) mg/dL 04/12/17 Range/Units 06:25 WBC (3.8-10.6) k/uL RBC (4.30-5.90) m/uL Hgb (13.0-17.5) gm/dL Hct (39.0-53.0) % RDW (11.5-15.5) % Plt Count (150-450) k/uL Lymphocytes # (1.0-4.8) k/uL ABG pH (7.35-7.45) ABG pCO2 (35-45) mmHg ABG O2 Saturation (94-97) % Sodium (137-145) mmol/L Potassium (3.5-5.1) mmol/L Chloride (98-107) mmol/L Glucose (74-99) mg/dL POC Glucose (mg/dL) 104 H (75-99) mg/dL Calcium (8.4-10.2) mg/dL Microbiology - Last 24 Hours (Table) 03/29/17 19:12 Urine Culture - Final Urine,Catheterized Enterobacter aerogenes Pseudomonas aeruginosa 04/09/17 21:20 Gram Stain - Preliminary Sputum Sputum Culture - Preliminary - Imaging and Cardiology Chest x-ray: image reviewed Assessment and Plan (1) Acute respiratory failure requiring reintubation Current Visit: Yes Status: Acute Code(s): J96.00 - ACUTE RESPIRATORY FAILURE , UNSP W HYPOXIA OR HYPERCAPNIA SNOMED Code(s): 336200739 (2) Acute urinary tract infection Current Visit: Yes Status: Acute Code(s): N39.0 - URINARY TRACT INFECTION, SITE NOT SPECIFIED SNOMED Code(s): 658939237 (3) GERD (gastroesophageal reflux disease) Current Visit: Yes Status: Chronic Code(s): K21.9 - GASTRO-ESOPHAGEAL REFLUX DISEASE WITHOUT ESOPHAGITIS SNOMED Code(s): 713272016 (4) Gross hematuria Current Visit: Yes Status: Resolved Code(s): R31.0 - GROSS HEMATURIA SNOMED Code(s): 210980473 (5) History of nephrolithiasis Current Visit: Yes Status: Chronic Code(s): Z87.442 - PERSONAL HISTORY OF URINARY CALCULI SNOMED Code(s): 876416571 (6) History of quadriplegia Current Visit: Yes Status: Chronic Code(s): Z86.69 - PERSONAL HISTORY OF DIS OF THE NERVOUS SYS AND SENSE ORGANS SNOMED Code(s): 835850048 (7) Seizure Current Visit: Yes Status: Acute Code(s): R56.9 - UNSPECIFIED CONVULSIONS SNOMED Code(s): 70665667 (8) Septic shock Current Visit: Yes Status: Acute Code(s): A41.9 - SEPSIS, UNSPECIFIED ORGANISM; R65.21 - SEVERE SEPSIS WITH SEPTIC SHOCK SNOMED Code(s): 45090955 (9) Septic shock due to Pseudomonas species Current Visit: Yes Status: Acute Code(s): A41.52 - SEPSIS DUE TO PSEUDOMONAS ; R65.21 - SEVERE SEPSIS WITH SEPTIC SHOCK SNOMED Code(s): 50165504 (10) Lactic acidosis Current Visit: Yes Status: Resolved Code(s): E87.2 - ACIDOSIS SNOMED Code( s): 94449056 (11) Toxic metabolic encephalopathy Current Visit: Yes Status: Resolved Code(s): G92 - TOXIC ENCEPHALOPATHY SNOMED Code(s): 042315883 Plan: The patient was seen and examined this morning. Remains awake and alert on mechanical ventilation. He has failed several weaning trials and it is felt that he will need a tracheostomy and PEG tube placement. He was originally scheduled for surgery yesterday, however remained on a small amount of pressor support, and thus surgery was rescheduled. This morning he continues to remain on pressor support with the addition of vasopressin. The plan is to wean him off levophed and then off vasopressin. Until the patient is stable off pressors we will hold off on surgery. This has been discussed with the patient. Continue ventilator management per pulmonology, antibiotics per infectious disease, and medical management of other comorbid disease processes by primary care services. Time with Patient: Greater than 30
--- NOTE | 2017-04-12 08:14 | XR ---
EXAMINATION TYPE: XR chest 1V portable DATE OF EXAM: 04/12/2017 COMPARISON: 04/11/2017 HISTORY: Shortness of breath TECHNIQUE: Single frontal view of the chest is obtained. FINDINGS: ET and NG tube stable. Right-sided central line stable. Bilateral infiltrate and pleural e ffusion with cardiomegaly. Hypertrophic changes of the spine. IMPRESSION: 1. Bilateral infiltrate and pleural effusion stable correlate for CHF.
[2017-04-12] MEDS: ACETAMINOPHEN TAB 325 MG TAB PO PRN (09:00)
--- NOTE | 2017-04-12 09:17 | CDI ---
Last Revision, March 2017 Documentation Clarification Form Date: 04/12/2017 8:29:00 AM From: Vivian Mendoza RN, CCDS Admit Date: 03/29/2017 11:39:00 PM Patient Name: Og Grant Visit Number: [id number] Discharge Date: ATTENTION: The Clinical Documentation Specialists (CDI) and [facility] Coding Staff appreciate your assistance in clarifying documentation. Please respond to the clarification below the line at the bottom and electronically sign. The CDI & [facility] Coding staff will review the response and follow-up if needed. Please note: Queries are made part of the Legal Health Record. If you have any questions, please contact the author of this message via ITS. Dr. Marito Owens The following has been documented in your progress notes: Septic shock with hypotension secondary to gram-negative bacteremia secondary to Enterobacter aerogenous urinary tract infection History/Risk Factors: Neurogenic bladder, Cervical injury with paraplegia, Clinical Indicators: Present with gross hematuria sound to be secondary to hemorrhagic cystitis, and urinary tract infection. 03/31/17 he developed new onset seizure disorder and altered mental status. Urine Culture from admission: Enterobacter aerogenous (which was resistant to the Levaquin which the patient had been receiving) Vital signs on admission: 132/64 117 97.0 95 % RA Labs on admission: WBC 12.7, Neutrophils 9.3, NA +129, BUN 101, CR 2.05 Treatment Zosyn IV Meropenem IV Levophed drip IV@ 125 mls/hr Levetiracetam IV Mechanical ventilation ICU Monitoring Monitor Labs Definition of Present on Admission (POA): A diagnosis present at the time the order for admission to inpatient status was written. For each diagnosis, documentation must be clear to determine if the condition was present at the time of the patients inpatient admission or developed during the hospital stay. Please clarify in progress notes and discharge summary as to whether Sepsis was present on admission: Y = Yes, the condition was present at the time of the order for inpatient admission. N = No, the condition was not present at the time of the order for inpatient admission. W = Clinically undetermined if the condition was present at the time of the order for inpatient admission. Please continue to document in your progress notes and discharge summary in order to capture severity of illness and risk of mortality. Include clinical findings that support your diagnosis. MTDD
[2017-04-12] MEDS ORDERED: VANCOMYCIN IV PER PHARMACY 1 EACH MISC MISCELLANE PRN (10:06)
--- NOTE | 2017-04-12 10:15 | CDI ---
Last Revision, March 2017 Documentation Clarification Form Date: 04/12/2017 9:33:00 AM From: Vivian Mendoza RN, CCDS Admit Date: 03/29/2017 11:39:00 PM Patient Name: Og Grant Visit Number: [id number] Discharge Date: ATTENTION: The Clinical Documentation Specialists (CDI) and [facility] Coding Staff appreciate your assistance in clarifying documentation. Please respond to the clarification below the line at the bottom and electronically sign. The CDI & [facility] Coding staff will review the response and follow-up if needed. Please note: Queries are made part of the Legal Health Record. If you have any questions, please contact the author of this message via ITS. Dr. Marito Owens A diagnosis of UTI has been documented in the H&P and ongoing progress notes. . History/Risk factors: Paraplegia due to fracture neck, Neurogenic bladder, Intermittent urinary retention with self-catheterization, GERD, Kidney stones Per documentation in the H&P this patient has a history of intermittent urinary retention. He does straight cath at home. He present with a condom catheter with gross hematuria. Clinical Indicators: He states 2 days age he had significant hot flash and then slowly darkening urine. Vital signs on admission: 132/64 117 18 97.0 Urinalysis: Urine bacteria, Urine culture: Enterobacter aerogenes Lab results: WBC 12.7, BUN 101, CR 2.05 03/31/17 Blood culture Enterobacter aerogenes, Non Hemolytic Strep Treatment: IV Fluids Levaquin IV (changed to Zosyn, Meropenem) Monitor Labs In your professional opinion, can you please clarify the etiology of the UTI, if known? Mclaughlin catheter/Self-Straight catheter UTI not related to catheter/self-catheter Other condition, please specify Unable to determine If an infective organism is present, please specify cause and effect relationship if applicable. Please continue to document in your progress notes and discharge summary in order to capture severity of illness and risk of mortality. Include clinical findings that support your diagnosis. MTDD
[2017-04-12] MEDS ORDERED: ceFAZolin 2,000 MG in DEXTROSE/WATER 1 50ML.BAG IVPB ONE (11:30)
[2017-04-12 12:00] LABS: Glucose,Whole Blood 100 mg/dL (75-99)
[2017-04-12] MEDS ORDERED: VANCOMYCIN 2,500 MG in SODIUM CHLORIDE 0.9% 500 ML IVPB ONE (12:00)
[2017-04-12 14:48] LABS: ALT 103 U/L (21-72); AST 110 U/L (17-59); Albumin 1.7 g/dL (3.5-5.0); Alkaline Phosphatase 325 U/L (38-126); Total Bilirubin 1.8 mg/dL (0.2-1.3); Total Protein 3.9 g/dL (6.3-8.2)
[2017-04-12] MEDS ORDERED: Potassium Replacement Protocol 1 EACH MISC MISCELLANE PRN (16:19)
--- NOTE | 2017-04-12 16:30 | P.PN ---
Subjective Progress Note Date: 04/12/17 51-year-old male with a history of respiratory failure secondary to overwhelming sepsis and septic shock caused by urinary tract infection secondary to Enterobacter as well as Pseudomonas. The patient's blood cultures were also positive for Enterobacter. A couple days back, the patient was extubated and needed to be reintubated the very next day for respiratory failure. The patient was a difficult reintubation. A tracheostomy is scheduled for Monday by one of the thoracic surgeons. Daily, we will been doing her eruption of sedation with weaning trials and each day, he's done very poorly. Today again on PSV 5 CPAP of 5, the patient becomes very diaphoretic and tachycardic hypertensive and With high respiratory rate. He's was placed back on the ventilator., Tracheostomy would be important in terms of trying to get the patient off the ventilator. Currently the patient's vent settings are the assist control mode, rate of 22, tidal volume of 450, FiO2 of 40%, PEEP of 5. Arterial blood gases show a PaO2 of 123 a PaCO2 of 30 and a pH 7.49. The blood gases were done on 50%. The patient's IV is D5W at 75 mL an hour norepinephrine at 4 mics per minute and tube feeds at 25 mL an hour with a goal of 50. Patient's tube feeds include vital high protein. On 04/11/2017 I'm seeing this patient for a follow-up. As mentioned earlier the patient was treated for septic shock and he was aggressively resuscitated with IV fluids and currently is hemodynamically stable. Nevertheless he is in obvious fluid overload with increased edema in lower extremities and upper extremity is bilaterally and today's chest x-ray shows small bilateral pleural effusion which was not present on previous chest x-rays. ET tube is in a good location. As mentioned earlier the patient has failed extubation twice and the plan is to proceed with a tracheostomy tube insertion today. He will also need a PEG tube insertion. Hemodynamically the patient is still borderline hypotensive on 3 mics of levo fed for hemodynamic support. Nevertheless, he is producing more than 200 mL of urine output on an hourly basis. His sodium is elevated at 145 and the patient is receiving D5 water at the rate of 1 75 mL an hour. He is an assist-control mode of ventilation. Currently is on assist control of 22, tidal volume of 450, FiO2 of 40% and a PEEP of 5. His morning blood Showed a pH of 7.56 with a pCO2 of 34 and pO2 of 143. He is afebrile. The blood culture was positive for Enterobacter and the patient is on IV Merrem. Urine cultures positive for Enterobacter and Pseudomonas. As mentioned earlier, the patient is paraplegic. He has leg wounds bilaterally which are more like excoriation and some degree of skin sloughing due to his peripheral edema. He also has some similar findings on his coccyx. His white cell count is up from 42 down to 8.1 and it was essentially related to his sepsis. Clinically, the patient is awake. The patient is following commands and answering simple questions. His been off Diprivan for the past 24 hours. On 04/12/2017 I'm seeing this patient for a follow-up. The patient is awake while being on mechanical ventilator. He remains somewhat hypotensive. Overnight I was contacted the patient's pressor doses have been gradually increased up to 6 mics and the patient also spiked a temperature. Based on that I asked the patient to be recultured including blood and urine. I also asked ID to reevaluate the patient and vancomycin got admitted on an empiric basis. The patient was also started on vasopressin and an attempt to gradually wean off the norepinephrine infusion. Earlier this morning, I noted that the patient started having some diarrhea and there is obvious concern for C. diff colitis. Stool will be sent for C. diff evaluation. I also discussed the case with the thoracic surgeon and Dr. Montes was a bit hesitant to proceed with a PEG and trach specially with his ongoing hemodynamic instability and he opted to wait on the procedure for another 24-48 hours. Meanwhile, I noted that the patient seemed to have a good state of weaning parameters earlier this morning. I give him a spontaneous breathing trial with a pressure support of 5 and a PEEP of 5 and within 10 to any minutes into the trial the patient decompensated and became hypotensive and hypoxic and he went into respiratory distress. Based on that the spot is breathing trial was aborted and the patient was placed back on assist control mode. His hypernatremia is improving and the sodium level is improved. The patient received D5 water addition to free water through the NG. D5 water will be kept on nontender the patient has become progressively more edematous both in upper and lower extremities. He has also skin excoriation around his buttocks and lower extremities bilaterally and local wound care is being applied. Calcium level from this morning was at 6.2 and the patient was given it in part of calcium gluconate 1 g. A drop in hemoglobin was also noted down to 7.7 and this probably is dilutional. The patient is tolerating enteral feeding through his NG tube. Objective - Vital Signs Vital signs: Vital Signs Temp 99.5 F 04/12/17 12:00 Pulse 82 04/12/17 15:51 Resp 25 H 04/12/17 15:00 BP 100/51 04/12/17 15:00 Pulse Ox 96 04/12/17 15:00 Intake & Output 04/11/17 04/12/17 04/12/17 18:59 06:59 18:59 Intake Total 5651.630 4965.188 1011.283 Output Total 2375 1580 2425 Balance -660.291 526.188 -1413.717 Weight 125.9 kg 125.9 kg Intake: IV 1475 1625 825 Dextrose 5% in Water 1, 1625 225 000 ml @ 20 mls/hr IV . Q24H MANDA Rx#:[id number] Dextrose 5%-0.45% NaCl 1, 1275 000 ml @ 75 mls/hr IV . [id number] MANDA Rx#:[id number] Magnesium Sulfate-D5w Pmx 100 200 1 gm In Dextrose/Water 1 100ml.bag @ 100 mls/hr IVPB Q1H MANDA Rx#: [id number] Meropenem 1 gm In Sodium 100 Chloride 0.9% 100 ml @ 200 mls/hr IVPB Q8H MANDA Rx#:[id number] Vancomycin 2,500 mg In 300 Sodium Chloride 0.9% 500 ml @ 167 mls/hr IVPB ONCE ONE Rx#:[id number] levETIRAcetam IV 1,000 mg 100 In Saline 1 100ml.bag @ 400 mls/hr IVPB Q12HR MANDA Rx#:[id number] Intake, IV Titration 48.709 91.188 26.283 Amount Norepinephrin 16 mg-0.9% 48.709 91.188 26.283 Ns Pmx 16 mg In 250 ml @ Titrate IV .Q0M MANDA Rx#: [id number] Tube Feeding 131 190 100 Other 60 200 60 Output: Urine 2375 1580 2425 Other: Voiding Method Indwelling Catheter Indwelling Catheter Indwelling Catheter # Bowel Movements 1 ABP, PAP, CO, CI - Last Documented Arterial Blood Pressure 67/38 - Exam No acute distress, the patient is not sedated. Endotracheal tube and NG tube in place HEENT examination is grossly unremarkable. Mucous membranes are moist. No oral lesions. Neck supple. Full range of motion. No adenopathy thyromegaly or neck vein distention. Cardiovascular examination reveals regular rhythm rate. S1-S2 normal. No S3 or S4. No discernible murmur noted. Lungs reveal a few scattered rhonchi. No wheezes or crackles. Breath sounds are diminished. Abdomen soft bowel sounds are heard. No masses or tenderness. Extremities shows extensive amount of edema in lower extremities is reaching to the thighs and the same time the patient has chronic deformity lower extremities bilaterally and the skin is excoriated and there is some superficial ulceration and appropriate dressings have been applied lower extremities bilaterally. The patient also has a PICC line in the right upper extremity. Skin is showing areas of excoriation and superficial ulceration in the coccyx and lower extremities bilaterally. Neurologic examination shows that the patient is paraplegic and examination is consistent with paraplegia which is a chronic finding as the patient is has contraction and atrophied related to paraplegia. Cranial nerves are intact. The patient is following commands and answering questions appropriately and he' s been off Diprivan for now. - Labs CBC & Chem 7: 04/12/17 04:30 04/12/17 15:05 Labs: Abnormal Lab Results - Last 24 Hours (Table) 04/11/17 04/11/17 04/12/17 Range/Units 18:13 18:40 00:04 WBC (3.8-10.6) k/uL RBC (4.30-5.90) m/uL Hgb (13.0-17.5) gm/dL Hct (39.0-53.0) % RDW (11.5-15.5) % Plt Count (150-450) k/uL Lymphocytes # (1.0-4.8) k/uL ABG pH (7.35-7.45) ABG pCO2 (35-45) mmHg ABG O2 Saturation (94-97) % Sodium 146 H (137-145) mmol/L Potassium (3.5-5.1) mmol/L Chloride 115 H (98-107) mmol/L Glucose 108 H (74-99) mg/dL POC Glucose (mg/dL) 108 H 121 H (75-99) mg/dL Calcium 6.2 L* (8.4-10.2) mg/dL Total Bilirubin (0.2-1.3) mg/dL AST (17-59) U/L ALT (21-72) U/L Alkaline Phosphatase (38-126) U/L Total Protein (6.3-8.2) g/dL Albumin (3.5-5.0) g/dL 04/12/17 04/12/17 04/12/17 Range/Units 04:30 04:30 04:55 WBC 3.7 L (3.8-10.6) k/uL RBC 2.69 L (4.30-5.90) m/uL Hgb 7.7 L (13.0-17.5) gm/dL Hct 24.8 L (39.0-53.0) % RDW 18.2 H (11.5-15.5) % Plt Count 125 L (150-450) k/uL Lymphocytes # 0.1 L (1.0-4.8) k/uL ABG pH 7.49 H (7.35-7.45) ABG pCO2 29 L (35-45) mmHg ABG O2 Saturation 98.0 H (94-97) % Sodium (137-145) mmol/L Potassium 3.4 L (3.5-5.1) mmol/L Chloride 114 H (98-107) mmol/L Glucose 108 H (74-99) mg/dL POC Glucose (mg/dL) (75-99) mg/dL Calcium 6.2 L* (8.4-10.2) mg/dL Total Bilirubin 1.8 H (0.2-1.3) mg/dL AST 110 H (17-59) U/L ALT 103 H (21-72) U/L Alkaline Phosphatase 325 H (38-126) U/L Total Protein 3.9 L (6.3-8.2) g/dL Albumin 1.7 L (3.5-5.0) g/dL 04/12/17 04/12/17 04/12/17 Range/Units 06:25 11:58 15:05 WBC (3.8-10.6) k/uL RBC (4.30-5.90) m/uL Hgb (13.0-17.5) gm/dL Hct (39.0-53.0) % RDW (11.5-15.5) % Plt Count (150-450) k/uL Lymphocytes # (1.0-4.8) k/uL ABG pH (7.35-7.45) ABG pCO2 (35-45) mmHg ABG O2 Saturation (94-97) % Sodium (137-145) mmol/L Potassium 3.1 L (3.5-5.1) mmol/L Chloride (98-107) mmol/L Glucose (74-99) mg/dL POC Glucose (mg/dL) 104 H 100 H (75-99) mg/dL Calcium (8.4-10.2) mg/dL Total Bilirubin (0.2-1.3) mg/dL AST (17-59) U/L ALT (21-72) U/L Alkaline Phosphatase (38-126) U/L Total Protein (6.3-8.2) g/dL Albumin (3.5-5.0) g/dL Microbiology - Last 24 Hours (Table) 04/12/17 10:00 Sputum Culture - Preliminary Sputum 04/09/17 21:20 Gram Stain - Final Sputum Sputum Culture - Final 03/29/17 19:12 Urine Culture - Final Urine,Catheterized Enterobacter aerogenes Pseudomonas aeruginosa Assessment and Plan Plan: Impression: 1 acute septic shock secondary to urinary tract infection, acute cystitis secondary to Enterobacter aerogenes and pseudomonas aeruginosa as noted in the urine. His blood cultures are positive for Enterobacter. Blood cultures negative. He remains on meropenem, and the patient is on low-dose levo fed for blood pressure support On 04/12/2017, the patient remains pressor dependent. He remains septic. Unable to wean off the pressors. Furthermore think a further complicated as the patient spiked another high-grade temperature of 103.0. He was recultured and the patient had broadened antibiotic coverage and currently is on a combination of meropenem and vancomycin. In addition, the patient started having some diarrhea and possibility of an acute C. diff colitis cannot be completely excluded. 2 acute hypoxic respiratory failure secondary to above. Failed extubation requiring reintubation. The plan is for probable tracheostomy on 04/11/2017, however the patient's procedure got canceled due to ongoing hemodynamic changes and decision opted to wait for another 24 hours today's further stable. Meanwhile, the patient was given another spontaneous breathing trial and he failed and based on that no attempts to extubate this patient were done. We are more convinced that he will need a PEG and trach at a later stage. 3 acute metabolic, lactic acidosis secondary to 1. 4 history of paraplegia and neurogenic bladder. 5 acute kidney injury secondary to sepsis and septic shock. 6 history of nephrolithiasis/bilateral. 7 history of multiple surgeries including skin graft for pressure sores, right ureteroscopy with lithotripsy in 2005 and external sphincterotomy 1990 and 1994. 8 hypotension and the patient is still requiring low-dose pressors for blood pressure support 9 extensive edema in lower extremities bilaterally along with superficial scale ulcerations and excoriation and sloughing in the lower extremities and coccyx. 10 leukocytosis, improved 11 acute respiratory alkalosis, improving 12 small bilateral pleural effusions. 13 abnormal LFTs with elevation and alkaline phosphatase, and ultrasound the gallbladder shows no evidence of any cholecystitis, and the liver function tests are being monitored and are comparable to yesterday's values. 14 hypernatremia, improving and the patient's sodium level is normalized Plan Continue broad-spectrum antibiotics in the form of meropenem and vancomycin. Re culture the patient and obtain blood and urine culture. Obtain a stool sample for C. diff evaluation. Continue the vasopressin and wean off the norepinephrine infusion as tolerated to keep a mean atrial pressure above 60. Cut down the D5 water to 20 mL an hour. The patient is producing adequate amount of urine output more than 200 mL an hour. Continue free water through his energy for another 24 hours. Continue enteral feeding for nutritional support. Weaning trial has failed and the patient will be admitted to a PEG and trach was more hemodynamically stable. Monitor liver function tests. Ultrasound the gallbladder was noted. Keep the patient off sedation as long as he remains awake and communicating even while being intubated on a mechanical ventilator. Condition is critical. We'll continue to follow. This examination was done and more than 35 minutes. Time with Patient: Greater than 30
[2017-04-12] MEDS: POTASSIUM CHLORIDE ORAL LIQUID 40 MEQ/30 ML CUP NG-TUBE SCH ×2 (16:46→18:05)
[2017-04-12 17:03] LABS: Glucose,Whole Blood 107 mg/dL (75-99)
[2017-04-12] MEDS: NOREPINEPHRIN 16 MG-0.9%NS PMX 16 MG/250 ML ML IV SCH (18:22)
[2017-04-12] MEDS: VANCOMYCIN 2,000 MG in SODIUM CHLORIDE 0.9% 500 ML IVPB SCH (20:03)
--- NOTE | 2017-04-12 22:47 | PN ---
PROGRESS NOTE DATE OF SERVICE: 04/12/2017 REASON FOR FOLLOWUP: Gram-negative UTI with sepsis Interval history: The patient Remains to be on the vent. FIO2 is stable. The patient has been tolerating his tube feeds. Was noticed to have some loose stools. No other events per the RN EXAMINATION: Blood pressure of 100/60 pulse of 90 temperature 98 General description is a middle-age male lying in bed in no distress. RESPIRATORY SYSTEM: Unlabored breathing. Clear to auscultation anteriorly. HEART: S1, S2. Regular rate and rhythm. ABDOMEN: Soft. Minimal distension, tenderness. No guarding. No rigidity. LABS: White count 13, creatinine 1 Blood culture has been negative. Stool for C. diff. has been requested and currently pending Diagnostic impression and plan: Patient with Enterobacter urinary tract infection and bacteremia with sepsis and vent-dependent respiratory failure patient currently on meropenem because of the resistant pattern of this pathogen that'll be continued in view of the diarrhea will check a stool for C. diff and treat if positive MMODL / IJN: [id number] / LUKASZ
[2017-04-13 00:08] LABS: Glucose,Whole Blood 115 mg/dL (75-99)
[2017-04-13] MEDS: INSULIN ASPART 100 UNIT/ML 1 ML 10 ML VIAL SQ SCH ×4 (00:08→18:44)
[2017-04-13] MEDS: ACETAMINOPHEN TAB 325 MG TAB PO PRN ×3 (00:12→19:51)
[2017-04-13] MEDS: IPRATROPIUM-ALBUTEROL 3 ML NEB INHALATION SCH ×6 (03:18→23:18)
[2017-04-13] MEDS: SODIUM CHLORIDE 0.9% 99 ML with VASOPRESSIN 20 UNIT IV SCH ×4 (04:38→13:24)
[2017-04-13] MEDS: VANCOMYCIN 2,000 MG in SODIUM CHLORIDE 0.9% 500 ML IVPB SCH (04:38)
[2017-04-13] MEDS: MEROPENEM 1 GM in SODIUM CHLORIDE 0.9% 100 ML IVPB SCH ×2 (04:38→13:24)
[2017-04-13 05:08] LABS: ABG PCO2 31 mmHg (35-45); ABG PH 7.47 (7.35-7.45); ABG PO2 132 mmHg (83-108)
[2017-04-13 05:09] LABS: ABG Base Excess -0.9 mmol/L; ABG HCO3 22 mmol/L (21-25); ABG TCO2 23 mmol/L (19-24)
[2017-04-13 06:00] LABS: ALT 186 U/L (21-72); AST 312 U/L (17-59); Albumin 1.8 g/dL (3.5-5.0); Alkaline Phosphatase 327 U/L (38-126); Anion Gap 4 mmol/L; Blood Urea Nitrogen 15 mg/dL (9-20); Carbon Dioxide 25 mmol/L (22-30); Chloride 115 mmol/L (98-107); Glucose 119 mg/dL (74-99); Potassium 3.5 mmol/L (3.5-5.1); Sodium 144 mmol/L (137-145); Total Bilirubin 2.4 mg/dL (0.2-1.3); Total Protein 4.3 g/dL (6.3-8.2)
[2017-04-13 06:02] LABS: Anisocytosis Slight; HCT 27.6 % (39.0-53.0); HGB 8.5 gm/dL (13.0-17.5); Hypochromasia Slight; MCH 28.4 pg (25.0-35.0); MCHC 30.6 g/dL (31.0-37.0); MCV 92.9 fL (80.0-100.0); Mean Platelet Volume 8.3; Platelet Count 103 k/uL (150-450); RBC 2.97 m/uL (4.30-5.90); RDW 17.7 % (11.5-15.5); WBC 2.6 k/uL (3.8-10.6)
[2017-04-13 06:12] LABS: Calcium 6.4 mg/dL (8.4-10.2)
[2017-04-13] MEDS ORDERED: Potassium Replacement Protocol 1 EACH MISC MISCELLANE PRN (06:17)
[2017-04-13] MEDS: POTASSIUM CHLORIDE ORAL LIQUID 40 MEQ/30 ML CUP NG-TUBE SCH ×2 (07:08→08:00)
[2017-04-13] MEDS ORDERED: Magnesium Replacement Protocol 1 EACH MISC MISCELLANE PRN (07:40)
[2017-04-13] MEDS: levETIRAcetam IV 1,000 MG in SALINE 1 100ML.BAG IVPB SCH ×2 (08:01→20:31)
[2017-04-13] MEDS: CHLORHEXIDINE GLUCONATE 15 ML CUP MUCOUS MEM SCH ×2 (08:01→20:31)
[2017-04-13] MEDS: MIDODRINE 5 MG TAB PO SCH ×3 (08:01→18:39)
[2017-04-13] MEDS: PANTOPRAZOLE 40 MG/10 ML VIAL IV SCH (08:01)
[2017-04-13] MEDS: BISACODYL 10 MG SUPP RECTAL SCH (08:01)
[2017-04-13] MEDS: MAGNESIUM SULFATE-D5W PMX 1 GM in DEXTROSE/WATER 1 100ML.BAG IVPB SCH ×2 (08:10→12:30)
--- NOTE | 2017-04-13 09:36 | XR ---
EXAMINATION TYPE: XR chest 1V portable DATE OF EXAM: 04/13/2017 COMPARISON: 04/12/2017 HISTORY: Tube placement FINDINGS: There are bilateral pleural effusions with cardiomegaly and bibasilar infiltrate. There is a diffuse interstitial pattern. ET and NG tube stable. Right-sided central line stable. Biapical pleural thick ening stable. IMPRESSION: 1. Bilateral infiltrate and pleural effusion underlying CHF in the differential diagnosis. No signifi cant interval change.
[2017-04-13] MEDS ORDERED: VANCOMYCIN TROUGH DUE 1 EACH MISC MISCELLANE ONE (11:00)
--- NOTE | 2017-04-13 12:16 | P.PN ---
Subjective Progress Note Date: 04/13/17 Principal diagnosis: Acute septic shock secondary to acute urinary tract infection, cystitis. This is a 51-year-old white male, paraplegic, this is related to previous hockey accident and cervical spine injury at age 18. 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 Patient had external sphincterotomy in 1990 and 1994, and has been managed with an exdwelling catheter. In the last 2 weeks, the patient has been noticing dark color urine with some odor. On 03/28 patient was noticing some chills, and on the morning of 03/29 he developed gross hematuria but he was able to void. Later on the patient was passing clots, and he was unable to void. He developed significant suprapubic discomfort, and presented to the ER for evaluation. Upon evaluation the patient was noted to have slight leukocytosis, and renal failure with a BUN of [address] of the abdomen and pelvis showed bilateral nonobstructive renal calculi, and bilateral atrophy of the renal parenchyma. His bladder was noted to be distended, and question the possibility of bladder mass. Patient was started on Levaquin for treatment of urinary tract infection, and he was seen by urology on consultation were in the patient had cystoscopy, and he was found to have hemorrhagic cystitis. The procedure was done on 03/31/2017. Yesterday, in p.m., patient developed an episode of unresponsiveness, patient was hypotensive, nursing staff felt he may have had a seizure, hence he was treated with Keppra, patient was unable to protect his airways, and I was notified about the patient at that time. Patient was given fluid boluses for hypotension, started on levo fed, and later on vasopressin was started. Patient was sent for a CT of the brain which came back negative for CVA. And he was later transferred back to the ICU were and we determined that the patient has a clear cut picture of septic shock from his urinary tract infection which turned out to be secondary to Enterobacter species. Patient was already on Levaquin, this was discontinued and he was placed on Zosyn and Merrem. Overnight, the patient remained relatively hypotensive in spite of significant high doses of norepinephrine, and vasopressin was later started. Presently the patient is on 75 mics of norepinephrine, and he is on 0.05 units of vasopressin. Blood pressure is marginal, many fluid boluses were given, and I believe he received over 10 L of fluids. His urine output has been excellent and he seems to have a polyuria picture. Renal functioning seems to be significantly improved in the last 24 hours. Lactic acid remains high this morning at 5.1. All his electrolytes were abnormal including low potassium which was corrected, calcium was also corrected, and his creatinine improved from 2.36 down to 1.50. Urine cultures were noted, but no blood cultures have been noted so far. Today I saw the patient in the ICU, remains on mechanical ventilation, his ventilator settings are tidal volume of 500, assist control rate of 20, FiO2 is down to 50%, and PEEP is at 5. ABG showed a pO2 of 136 pCO2 of 31 pH of 7.23, hence the patient was given more bicarb, and kept on the bicarb drip with 3 A of bicarb in 1 L of D5W running at 1 25 mL per hour. In spite of all of this, the patient is on small dose of propofol, he is arousable, and follows simple instructions. Seems to be very appropriate. Neurology-yanez, the patient was given Keppra, and EEG was ordered, it is not certain whether the patient truly had a seizure or not. Patient was reevaluated today on 04/02/2017, remains on mechanical ventilation, same vent setting, however his FiO2 is decreased down to 45%, tidal volume remains at 500, assist control rate is at 20, and PEEP is at 5. ABG this morning showed a pO2 of 103 pCO2 of 33 pH of 7.40. Hence, down significantly on the sodium bicarb drip, The patient on IV fluids, patient still requiring significant fluid boluses to maintain an adequate mean arterial blood pressure. His urine output has been excellent, he is putting out almost 300 mL per hour. Patient continues to have leukocytosis with WBC count of 36.3 hemoglobin is 11.5. Renal profile is basically almost back to normal. And his acute kidney injury has resolved. Sodium is elevated, at 147, hence I changed his IV fluid 0.45 instead of 0.9. His electrolytes were noted to be abnormal, and these were all being corrected as per protocol. Chest x-ray continues to show retrocardiac consolidation, and small left pleural effusion. I was able to review an old x-ray from 2011, apparently had some chronic scarring in the left lower lobe, and some atelectasis in the left retrocardiac area, but not as pronounced as noted on this present x-ray from this admission. Patient remains on norepinephrine at 75 g, he is also on vasopressin at 0.05 units. Reevaluated today on 04/03/2017, patient remains on mechanical ventilation, same ventilator settings as noted above with FiO2 of 45% tidal volume of 500 assist control rate of 20 and PEEP of 5. ABG showed a pO2 of 79 pCO2 of 32 pH of 7.42 hence the sodium bicarb drip was discontinued. Lactic acid is responding but slowly and today's lactic acid is 3.9. More fluid boluses were given today, continues to have significant urine output, and patient had a positive balance of 2 L in the last 24 hours. Albumin will be given today, his potassium and calcium are being corrected as per protocol. Renal functioning remains normal. However WBC count is up to 42.4, hemoglobin is 10.3, platelets are down to 88,000, hence I have discontinued his Lovenox. One blood culture from the showed Enterobacter, another blood culture showed Enterobacter and nonhemolytic strep. The nonhemolytic strep is probably a contaminant. Patient was on vancomycin, doubt if we need to restart vancomycin at this point , patient is being followed by infectious disease, remains presently on Merrem and Zosyn to cover Enterobacter and Pseudomonas. Blood pressure-yanez, the patient remains on 45 mics of norepinephrine, and 0.05 units of vasopressin. We are in the process of titrating the norepinephrine down since the blood pressure seems to be holding better today than it was in the last couple of days. All meds were reviewed, patient also remains on propofol, relatively small dose to keep him slightly sedated, but the patient is arousable, and follows instructions. Chest x-ray continues to show left lower lobe retrocardiac opacity which is I believe chronic. Nutrition-yanez the patient seems to be tolerating tube feeding well via nasogastric tube. The patient is seen again today 04/04/2017 in follow-up in the intensive care unit. He remains intubated on the mechanical ventilator with settings of assist control mode at a rate of 20, tidal volume 500, FiO2 45%, PEEP of 5. Morning blood gases reveal pO2 of 100, pCO2 30, pH 7.41 with a mixed acid-base abnormality including respiratory alkalosis and metabolic acidosis. The patient 's cultures were positive for Enterobacter aerogenes and pseudomonas aeruginosa in the urine, Enterobacter aerogenes nonhemolytic strep in the blood. He remains on meropenem and vancomycin. He is also on norepinephrine at 25 mcg/m, vasopressin at 0.05 units per minute, propofol at 11 mcg/kg/m, insulin at 7.5 units per hour. He is being nourished with Vital HP at 57 mL per hour which is goal. He has a 0.45 normal saline at 200 mL's per hour. He is alert and oriented and nods his head appropriately. The patient is seen again today 04/05/2017 in follow-up in the intensive care unit. He remains intubated and on mechanical ventilator. Current settings assist-control mode of rate of 20, tidal volume 500, FiO2 40% and a PEEP of 5. Morning arterial blood gases revealed a pO2 of 113 on 45% FiO2, pCO2 35, pH 7.36. He remains alert and oriented following simple commands by nodding his head yes and no appropriately. He remains on norepinephrine at 9 mcg/m, vasopressin at 0.05 units per minute, propofol at 10 mcg/kg/m, hydrocortisone at 12.5 mg per hour, insulin at 0.5 units per hour. He has 0.45 normal saline at 200 MLS per hour. He is being nourished with Vital HP at 57 mL per hour which is goal. He is receiving flushes of 30 mL every 4 hours. He remains on meropenem. Progress note dated 04/06/2017 This is a 51-year-old male with a history of respiratory failure secondary to overwhelming sepsis and septic shock from a urinary tract infection secondary to Enterobacter Jameson reason pseudomonas aeruginosa. Blood cultures were also positive for Enterobacter around kidneys. The patient is doing relatively well. His FiO2 and PEEP levels are low. His blood gases are reasonable. His weaning parameters today were fine and were thinking about extubating the patient. In addition, the patient has a history of hypoxemic respiratory failure severe metabolic derangements including lactic acidemia secondary to sepsis previous history of paraplegia with neurogenic bladder acute kidney injury secondary to septic shock and acute tubular necrosis and a history of kidney stones. The patient has had multiple surgeries for skin grafts of pressure sores as well as previous sphincterotomy and lithotripsy for kidney stones. Again the patient seemed be doing relatively well today. We'll stop his propofol. Local had an empty stomach. We'll give him a CPAP/PSV trial. We 'll check a cuff leak. We will do a rapid shallow breathing index. Everything looks good, trial of extubation. On 04/11/2017 I'm seeing this patient for a follow-up. As mentioned earlier the patient was treated for septic shock and he was aggressively resuscitated with IV fluids and currently is hemodynamically stable. Nevertheless he is in obvious fluid overload with increased edema in lower extremities and upper extremity is bilaterally and today's chest x-ray shows small bilateral pleural effusion which was not present on previous chest x-rays. ET tube is in a good location. As mentioned earlier the patient has failed extubation twice and the plan is to proceed with a tracheostomy tube insertion today. He will also need a PEG tube insertion. Hemodynamically the patient is still borderline hypotensive on 3 mics of levo fed for hemodynamic support. Nevertheless, he is producing more than 200 mL of urine output on an hourly basis. His sodium is elevated at 145 and the patient is receiving D5 water at the rate of 1 75 mL an hour. He is an assist-control mode of ventilation. Currently is on assist control of 22, tidal volume of 450, FiO2 of 40% and a PEEP of 5. His morning blood Showed a pH of 7.56 with a pCO2 of 34 and pO2 of 143. He is afebrile. The blood culture was positive for Enterobacter and the patient is on IV Merrem. Urine cultures positive for Enterobacter and Pseudomonas. As mentioned earlier, the patient is paraplegic. He has leg wounds bilaterally which are more like excoriation and some degree of skin sloughing due to his peripheral edema. He also has some similar findings on his coccyx. His white cell count is up from 42 down to 8.1 and it was essentially related to his sepsis. Clinically, the patient is awake. The patient is following commands and answering simple questions. His been off Diprivan for the past 24 hours. On 04/12/2017 I'm seeing this patient for a follow-up. The patient is awake while being on mechanical ventilator. He remains somewhat hypotensive. Overnight I was contacted the patient's pressor doses have been gradually increased up to 6 mics and the patient also spiked a temperature. Based on that I asked the patient to be recultured including blood and urine. I also asked ID to reevaluate the patient and vancomycin got admitted on an empiric basis. The patient was also started on vasopressin and an attempt to gradually wean off the norepinephrine infusion. Earlier this morning, I noted that the patient started having some diarrhea and there is obvious concern for C. diff colitis. Stool will be sent for C. diff evaluation. I also discussed the case with the thoracic surgeon and Dr. Montes was a bit hesitant to proceed with a PEG and trach specially with his ongoing hemodynamic instability and he opted to wait on the procedure for another 24-48 hours. Meanwhile, I noted that the patient seemed to have a good state of weaning parameters earlier this morning. I give him a spontaneous breathing trial with a pressure support of 5 and a PEEP of 5 and within 10 to any minutes into the trial the patient decompensated and became hypotensive and hypoxic and he went into respiratory distress. Based on that the spot is breathing trial was aborted and the patient was placed back on assist control mode. His hypernatremia is improving and the sodium level is improved. The patient received D5 water addition to free water through the NG. D5 water will be kept on nontender the patient has become progressively more edematous both in upper and lower extremities. He has also skin excoriation around his buttocks and lower extremities bilaterally and local wound care is being applied. Calcium level from this morning was at 6.2 and the patient was given it in part of calcium gluconate 1 g. A drop in hemoglobin was also noted down to 7.7 and this probably is dilutional. The patient is tolerating enteral feeding through his NG tube. The patient is seen again today 04/13/2017 in follow-up in the intensive care unit. He remains awake and alert and following commands. He unfortunately remains on the mechanical ventilator. Current settings are assist-control mode of 18, tidal volume 400, FiO2 40% and a PEEP of 5. Morning blood gases reveal a pO2 of 132, pCO2 31 and a pH of 7.47. Chest x-ray reveals bilateral infiltrates and pleural effusions but no significant interval change. He does continue to spike fevers up to 102.3 earlier this morning. Follow-up blood, urine and sputum cultures have been negative. He remains on meropenem and vancomycin. He still continues with issues with hypotension and is on vasopressin at 0.03 units per minute along with norepinephrine at 5 mcg/m. He is tolerating his tube feedings which are at 65 MLS per hour his goal. His hemoglobin remained stable at 8.5. Sodium 144, chloride 1:15. AST 312, ALT 186 , alk phos 327. An ultrasound of the gallbladder appeared to be within normal limits. There is moderate hepatic steatosis. Right-sided nephrolithiasis without evidence of hydronephrosis. Based on his continued temps and hypotension there no immediate plans for tracheostomy and PEG tube placement checked today. Objective - Vital Signs Vital signs: Vital Signs Temp 100.6 F H 04/13/17 07:30 Pulse 84 04/13/17 11:51 Resp 20 04/13/17 11:51 BP 97/70 04/13/17 10:30 Pulse Ox 97 04/13/17 10:30 Intake & Output 04/12/17 04/13/17 04/13/17 18:59 06:59 18:59 Intake Total 1422.624 5692 464 Output Total 3225 3160 320 Balance -5986.631 8583 144 Weight 125.9 kg 124.8 kg Intake: IV 885 1740 80 Dextrose 5% in Water 1, 285 240 80 000 ml @ 20 mls/hr IV . Q24H MANDA Rx#:[id number] Magnesium Sulfate-D5w Pmx 200 1 gm In Dextrose/Water 1 100ml.bag @ 100 mls/hr IVPB Q1H MANDA Rx#: [id number] Meropenem 1 gm In Sodium 400 Chloride 0.9% 100 ml @ 200 mls/hr IVPB Q8H MANDA Rx#:[id number] Vancomycin 2,500 mg In 300 1000 Sodium Chloride 0.9% 500 ml @ 167 mls/hr IVPB ONCE ONE Rx#:[id number] levETIRAcetam IV 1,000 mg 100 100 In Saline 1 100ml.bag @ 400 mls/hr IVPB Q12HR MANDA Rx#:[id number] Intake, IV Titration 27.221 Amount Norepinephrin 16 mg-0.9% 27.221 Ns Pmx 16 mg In 250 ml @ Titrate IV .Q0M MANDA Rx#: [id number] Tube Feeding 356 704 384 Other 90 1800 Output: Urine 3225 3160 320 Other: Voiding Method Indwelling Catheter Indwelling Catheter Indwelling Catheter # Bowel Movements 1 ABP, PAP, CO, CI - Last Documented Arterial Blood Pressure 67/38 - Exam Physical Exam: Revealed a 51-year-old white male, morbidly obese, on mechanical ventilation,,alert, no distress at present. HEENT: Short obese neck. Neck is supple. No neck masses.No thyromegaly.No JVD. PERRLA, EOMI, moist mucous membranes. Endotracheal tube is intact. Chest: Diminished breath sounds at the bases, especially at the left base. no crackles nor rhonchi no wheezes. Cardiac Exam: Normal S1 and S2, no S3 gallop, no murmur. Abdomen: Obese, Soft, nontender, no megaly, no rebound, no guarding, normal bowel sounds. Extremities: No clubbing, no edema, no cyanosis. Significant muscle atrophy and wasting of muscles noted in lower extremities, patient is paraplegic. Flexion contractures noted bilaterally. Neurological Exam: No focal neurologic deficit. Except for paraplegia from the waist down. Lymphatics: No lymphadenopathy. Psychiatric: Normal mood, affect, and cannot fully assess mental status exam. - Labs CBC & Chem 7: 04/13/17 05:17 04/13/17 05:17 Labs: Abnormal Lab Results - Last 24 Hours (Table) 04/12/17 04/12/17 04/12/17 Range/Units 04:30 11:58 15:05 WBC (3.8-10.6) k/uL RBC (4.30-5.90) m/uL Hgb (13.0-17.5) gm/dL Hct (39.0-53.0) % MCHC (31.0-37.0) g/dL RDW (11.5-15.5) % Plt Count (150-450) k/uL ABG pH (7.35-7.45) ABG pCO2 (35-45) mmHg ABG pO2 (83-108) mmHg ABG O2 Saturation (94-97) % Potassium 3.4 L 3.1 L (3.5-5.1) mmol/L Chloride 114 H (98-107) mmol/L Glucose 108 H (74-99) mg/dL POC Glucose (mg/dL) 100 H (75-99) mg/dL Calcium 6.2 L* (8.4-10.2) mg/dL Total Bilirubin 1.8 H (0.2-1.3) mg/dL AST 110 H (17-59) U/L ALT 103 H (21-72) U/L Alkaline Phosphatase 325 H (38-126) U/L Total Protein 3.9 L (6.3-8.2) g/dL Albumin 1.7 L (3.5-5.0) g/dL Vancomycin Trough ug/mL 04/12/17 04/13/17 04/13/17 Range/Units 16:59 00:05 05:01 WBC (3.8-10.6) k/uL RBC (4.30-5.90) m/uL Hgb (13.0-17.5) gm/dL Hct (39.0-53.0) % MCHC (31.0-37.0) g/dL RDW (11.5-15.5) % Plt Count (150-450) k/uL ABG pH 7.47 H (7.35-7.45) ABG pCO2 31 L (35-45) mmHg ABG pO2 132 H (83-108) mmHg ABG O2 Saturation 99.0 H (94-97) % Potassium (3.5-5.1) mmol/L Chloride (98-107) mmol/L Glucose (74-99) mg/dL POC Glucose (mg/dL) 107 H 115 H (75-99) mg/dL Calcium (8.4-10.2) mg/dL Total Bilirubin (0.2-1.3) mg/dL AST (17-59) U/L ALT (21-72) U/L Alkaline Phosphatase (38-126) U/L Total Protein (6.3-8.2) g/dL Albumin (3.5-5.0) g/dL Vancomycin Trough ug/mL 04/13/17 04/13/17 04/13/17 Range/Units 05:17 05:17 11:08 WBC 2.6 L (3.8-10.6) k/uL RBC 2.97 L (4.30-5.90) m/uL Hgb 8.5 L (13.0-17.5) gm/dL Hct 27.6 L (39.0-53.0) % MCHC 30.6 L (31.0-37.0) g/dL RDW 17.7 H (11.5-15.5) % Plt Count 103 L (150-450) k/uL ABG pH (7.35-7.45) ABG pCO2 (35-45) mmHg ABG pO2 (83-108) mmHg ABG O2 Saturation (94-97) % Potassium (3.5-5.1) mmol/L Chloride 115 H (98-107) mmol/L Glucose 119 H (74-99) mg/dL POC Glucose (mg/dL) (75-99) mg/dL Calcium 6.4 L* (8.4-10.2) mg/dL Total Bilirubin 2.4 H (0.2-1.3) mg/dL AST 312 H (17-59) U/L ALT 186 H (21-72) U/L Alkaline Phosphatase 327 H (38-126) U/L Total Protein 4.3 L (6.3-8.2) g/dL Albumin 1.8 L (3.5-5.0) g/dL Vancomycin Trough 35.2 H* ug/mL Microbiology - Last 24 Hours (Table) 04/12/17 09:01 Blood Culture - Preliminary Blood No Growth after 24 hours 04/12/17 08:58 Blood Culture - Preliminary Blood No Growth after 24 hours 04/12/17 10:00 Gram Stain - Preliminary Sputum Sputum Culture - Preliminary 04/12/17 10:30 Urine Culture - Preliminary Urine,Catheterized 04/09/17 21:20 Gram Stain - Final Sputum Sputum Culture - Final Assessment and Plan Assessment: Impression: 1 acute septic shock secondary to urinary tract infection, acute cystitis secondary to Enterobacter aerogenes and pseudomonas aeruginosa as noted in the urine. His blood cultures are positive for Enterobacter. Blood cultures negative. He remains on meropenem, and the patient is on low-dose levo fed for blood pressure support On 04/12/2017, the patient remains pressor dependent. He remains septic. Unable to wean off the pressors. Furthermore think a further complicated as the patient spiked another high-grade temperature of 103.0. He was recultured and the patient had broadened antibiotic coverage and currently is on a combination of meropenem and vancomycin. In addition, the patient started having some diarrhea and possibility of an acute C. diff colitis cannot be completely excluded On 04/13/1999 the patient remains pressor dependent. Unable to wean off the norepinephrine infusion which is currently running at 6 mics. Always uses septic hypotension under the patient still spiking fever. The exact source is not clear. The patient was recultured. The patient's antibiotic coverage is normal to include a combination of merrem and vancomycin. LFTs are abnormal. There is no indication for an acute cholecystitis based on the ultrasound findings and the patient has a benign abdomen. Skin. Potential sources monitor the patient has some excoriation of the skin and sloughing of the lower extremities of the Buttock. 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 I am concerned of line infection and he will possibility of a patsy/fungal infection. The cardiac status needs to be evaluated 2 acute hypoxic respiratory failure secondary to above. Failed extubation requiring reintubation. The plan is for probable tracheostomy on 04/11/2017, however the patient's procedure got canceled due to ongoing hemodynamic changes and decision opted to wait for another 24 hours today's further stable. Meanwhile, the patient was given another spontaneous breathing trial and he failed and based on that no attempts to extubate this patient were done. We are more convinced that he will need a PEG and trach at a later stage. 3 acute metabolic, lactic acidosis secondary to 1, recovered 4 history of paraplegia and neurogenic bladder. 5 acute kidney injury secondary to sepsis and septic shock. 6 history of nephrolithiasis/bilateral. 7 history of multiple surgeries including skin graft for pressure sores, right ureteroscopy with lithotripsy in 2005 and external sphincterotomy 1990 and 1994. 8 hypotension and the patient is still requiring low-dose pressors for blood pressure support 9 extensive edema in lower extremities bilaterally along with superficial scale ulcerations and excoriation and sloughing in the lower extremities and coccyx. 10 leukocytosis, improved 11 acute respiratory alkalosis, improving 12 small bilateral pleural effusions. 13 abnormal LFTs with elevation and alkaline phosphatase, and ultrasound the gallbladder shows no evidence of any cholecystitis, and the liver function tests are being monitored and are comparable to yesterday's values. 14 hypernatremia, improving and the patient's sodium level is normalized 15 anemia, stable hemoglobin for now. Plan The patient on mechanical ventilator. The tracheostomy and PEG tube insertion was postponed until the patient is medically stable. We will obtain echocardiogram. Serum cortisol level is about 30. The skin was reexamined and was normal soft tissue infection or any significant wound and This patient's hypotension. Continue vasopressin. The wean off if possible. We'll discuss with infectious disease regarding the possibility of adding antifungal agent. Condition is critical. We'll continue to follow make further recommendations based on progress. The free water flushes through the NG tube discontinued. LFTs are abnormal and this will be monitored. The abdominal exam is benign. Neurologically the patient is awake and alert. Not ready for weaning to profound weakness and prolonged hospitalization secondary to sepsis. He has failed spontaneous breathing trial in the past. Tracheostomy once more stable. This is discussed at length with him and with his family members. We'll continue to follow ICU. Critical care evaluation more than 30 minutes. I, the cosigning physician, have performed a history and physical examination on the patient. Lung sounds are coarse scattered rhonchi. Crackles in the posterior bases.. Maintaining good O2 saturations in the 90s on 50%. I have discussed the assessment and plan of care with my nurse practitioner, Edita Billy. I attest the above documented note as dictated by her. Time with Patient: Greater than 30
[2017-04-13 12:19] LABS: Glucose,Whole Blood 126 mg/dL (75-99)
--- NOTE | 2017-04-13 12:33 | US ---
EXAMINATION TYPE: US venous doppler duplex UE RT DATE OF EXAM: 04/13/2017 COMPARISON: IR CVC insert right arm CLINICAL HISTORY: right arm swelling. SIDE PERFORMED: right FINDINGS: Right Arm: Negative for DVT as was able to assess due to PICC line and dressing at brachial fossa and upper arm. Right arm is positive for Superficial Vein Thrombosis at Cephalic Vein from upper arm to wrist as internal echoes are imaged and no compressibility is present. Right Superficial Vein of Uppe r Basilic Vein level is compressible and is not imaged any further due to above stated as exam is vera hnically limited by patient's inability to externally rotate right arm, PICC line and IV lines, and s kin dressings at right arm. Left IJV not accessible due to bedside respiratory care administrations. Right arm complex fluid collection is imaged superior to PICC line dressing and size of fluid collect ion = 7.3 x 1.5 x 1.5cm. IMPRESSION: 1. There is a 7.3 x 1.5 cm complex fluid collection in the soft tissues of the right arm. Could repre sent a hematoma. Infectious etiology not excluded correlate clinically. 2. Superficial venous thrombosis of the cephalic vein. 3. Exam limited as discussed above.
[2017-04-13] MEDS: DEXTROSE 5% IN WATER 1,000 ML IV SCH (13:23)
[2017-04-13] MEDS: NOREPINEPHRIN 16 MG-0.9%NS PMX 16 MG/250 ML ML IV SCH (13:30)
[2017-04-13] MEDS: MICAFUNGIN 100 MG in SODIUM CHLORIDE 0.9% 100 ML IVPB SCH (18:38)
[2017-04-13 18:46] LABS: Glucose,Whole Blood 130 mg/dL (75-99)
[2017-04-13] MEDS: VANCOMYCIN 1,750 MG in SODIUM CHLORIDE 0.9% 250 ML IVPB SCH (20:29)
--- NOTE | 2017-04-13 22:33 | PN ---
PROGRESS NOTE DATE OF SERVICE: 04/13/2017 REASON FOR FOLLOW UP: 1. Enterobacter urinary tract bacteremia. 2. New fever, now with yeast-positive blood cultures. INTERVAL HISTORY: The patient did spike a fever this morning again of 102.3. The patient did require low- dose pressor support. His FiO2 is stable. He remains awake, alert. Follows commands. Tolerating his tube feeds. PHYSICAL EXAMINATION: Blood pressure 94/53 with a pulse of 86, temperature of 102. He is 96% on 40% FiO2. General description is a middle-aged male lying in bed in no distress. RESPIRATORY SYSTEM: Unlabored breathing. Clear to auscultation anteriorly. HEART: S1, S2. Regular rate and rhythm. ABDOMEN: Soft. No tenderness. LABS: Hemoglobin 8.5, white count 2.6 with a BUN of 15, creatinine 0.72. Vancomycin level at 35. DIAGNOSTIC IMPRESSION/PLAN: Patient with enterobacter urinary tract bacteremia, now with evidence of positive blood culture with yeast and urine showing a patsy, not albicans. Micafungin has been added. will switch antibiotics to Invanz because of elevated liver enzymes likely from meropenem use Ultrasound will be ordered to make sure no evidence of hepatosplenic candidiasis though less likely clinically. If no Gram-positive, vancomycin will be discontinued. Vancomycin trough has been high. Dose has been adjusted by the pharmacy. Will continue to monitor the patient closely. Continue with supportive care. MMODL / IJN: [id number] / MTDD
[2017-04-13 23:47] LABS: Glucose,Whole Blood 141 mg/dL (75-99)
[2017-04-14] MEDS: INSULIN ASPART 100 UNIT/ML 1 ML 10 ML VIAL SQ SCH ×4 (01:01→18:56)
[2017-04-14] MEDS: ACETAMINOPHEN TAB 325 MG TAB PO PRN (02:01)
[2017-04-14] MEDS: IPRATROPIUM-ALBUTEROL 3 ML NEB INHALATION SCH ×6 (03:13→22:55)
[2017-04-14 04:55] LABS: Anisocytosis Slight; HCT 27.3 % (39.0-53.0); HGB 8.3 gm/dL (13.0-17.5); Hypochromasia Moderate; MCH 28.5 pg (25.0-35.0); MCHC 30.5 g/dL (31.0-37.0); MCV 93.4 fL (80.0-100.0); Macrocytosis Slight; Mean Platelet Volume 9.7; RBC 2.92 m/uL (4.30-5.90); RDW 18.8 % (11.5-15.5); WBC 2.2 k/uL (3.8-10.6)
[2017-04-14 05:05] LABS: ABG Base Excess -0.8 mmol/L; ABG HCO3 23 mmol/L (21-25); ABG PCO2 32 mmHg (35-45); ABG PH 7.46 (7.35-7.45); ABG PO2 118 mmHg (83-108); ABG TCO2 24 mmol/L (19-24)
[2017-04-14 05:11] LABS: Anion Gap 3 mmol/L; Blood Urea Nitrogen 18 mg/dL (9-20); Carbon Dioxide 26 mmol/L (22-30); Chloride 116 mmol/L (98-107); Glucose 132 mg/dL (74-99); Magnesium 1.7 mg/dL (1.6-2.3); Phosphorus 1.8 mg/dL (2.5-4.5); Potassium 3.4 mmol/L (3.5-5.1); Sodium 145 mmol/L (137-145)
[2017-04-14 05:17] LABS: Calcium 6.5 mg/dL (8.4-10.2)
[2017-04-14 05:18] LABS: Vancomycin,Random 20.3 ug/mL
[2017-04-14] MEDS ORDERED: Magnesium Replacement Protocol 1 EACH MISC MISCELLANE PRN (05:19)
[2017-04-14] MEDS ORDERED: Potassium Replacement Protocol 1 EACH MISC MISCELLANE PRN (05:20)
[2017-04-14 05:34] LABS: Platelet Count 69 k/uL (150-450)
[2017-04-14] MEDS: MAGNESIUM SULFATE-D5W PMX 1 GM in DEXTROSE/WATER 1 100ML.BAG IVPB SCH ×2 (06:44→08:25)
[2017-04-14] MEDS: SODIUM CHLORIDE 0.9% 99 ML with VASOPRESSIN 20 UNIT IV SCH ×6 (06:44→21:17)
[2017-04-14] MEDS: POTASSIUM CHLORIDE ORAL LIQUID 40 MEQ/30 ML CUP NG-TUBE SCH ×2 (06:45→08:24)
[2017-04-14] MEDS: MIDODRINE 5 MG TAB PO SCH ×3 (08:24→17:00)
[2017-04-14] MEDS: PANTOPRAZOLE 40 MG/10 ML VIAL IV SCH (08:24)
[2017-04-14] MEDS: CHLORHEXIDINE GLUCONATE 15 ML CUP MUCOUS MEM SCH ×2 (08:25→21:17)
[2017-04-14] MEDS: ERTAPENEM 1 GM in SODIUM CHLORIDE 0.9% 50 ML IVPB SCH (08:28)
[2017-04-14] MEDS: levETIRAcetam IV 1,000 MG in SALINE 1 100ML.BAG IVPB SCH ×2 (08:28→21:28)
--- NOTE | 2017-04-14 08:29 | P.PN ---
Subjective Principal diagnosis: Continuing care. 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 There is urinary culture showing pseudomonas and Enterobacter aerogenes. The patient is on low-dose pressors still and he is still becoming slightly hypotensive and having a slow wean. Tracheostomy and PEG tube are planned due to difficulty of weaning from ventilator. The patient complains of no pain. Objective - Vital Signs Vital signs: Vital Signs Temp 101 F H 04/14/17 04:00 Pulse 90 04/14/17 07:34 Resp 20 04/14/17 07:00 BP 95/53 04/14/17 07:00 Pulse Ox 96 04/14/17 07:00 Intake & Output 04/13/17 04/14/17 04/14/17 18:59 06:59 18:59 Intake Total 0891.038 2949.871 84 Output Total 2290 2820 225 Balance -518.333 -1036.129 -141 Weight 114.8 kg Intake: IV 260 420 20 Dextrose 5% in Water 1, 260 220 20 000 ml @ 20 mls/hr IV . Q24H MANDA Rx#:[id number] Magnesium Sulfate-D5w Pmx 100 1 gm In Dextrose/Water 1 100ml.bag @ 100 mls/hr IVPB Q1H MANDA Rx#: [id number] levETIRAcetam IV 1,000 mg 100 In Saline 1 100ml.bag @ 400 mls/hr IVPB Q12HR MANDA Rx#:[id number] Intake, IV Titration 95.667 67.871 Amount Norepinephrin 16 mg-0.9% 95.667 67.871 Ns Pmx 16 mg In 250 ml @ Titrate IV .Q0M MANDA Rx#: [id number] Tube Feeding 1216 896 64 Other 200 400 Output: Urine 2290 2820 225 Other: Voiding Method Indwelling Catheter Indwelling Catheter ABP, PAP, CO, CI - Last Documented Arterial Blood Pressure 67/38 - Constitutional General appearance: Present: average body habitus - EENT Eyes: Absent: abnormal pupil - Respiratory Respiratory: bilateral: CTA - Cardiovascular Rhythm: regular Heart sounds: normal: S1, S2 - Gastrointestinal General gastrointestinal: Present: soft. Absent: tenderness - Musculoskeletal Musculoskeletal Comment(s): paraplegia - Psychiatric Psychiatric: Present: A&O x's 3, appropriate affect - Labs CBC & Chem 7: 04/14/17 04:39 04/14/17 04:39 Labs: Abnormal Lab Results - Last 24 Hours (Table) 04/13/17 04/13/17 04/13/17 Range/Units 11:08 12:16 18:43 WBC (3.8-10.6) k/uL RBC (4.30-5.90) m/uL Hgb (13.0-17.5) gm/dL Hct (39.0-53.0) % MCHC (31.0-37.0) g/dL RDW (11.5-15.5) % Plt Count (150-450) k/uL ABG pH (7.35-7.45) ABG pCO2 (35-45) mmHg ABG pO2 (83-108) mmHg ABG O2 Saturation (94-97) % Potassium (3.5-5.1) mmol/L Chloride (98-107) mmol/L Glucose (74-99) mg/dL POC Glucose (mg/dL) 126 H 130 H (75-99) mg/dL Calcium (8.4-10.2) mg/dL Phosphorus (2.5-4.5) mg/dL Vancomycin Trough 35.2 H* ug/mL 04/13/17 04/14/17 04/14/17 Range/Units 23:44 04:39 04:39 WBC 2.2 L (3.8-10.6) k/uL RBC 2.92 L (4.30-5.90) m/uL Hgb 8.3 L (13.0-17.5) gm/dL Hct 27.3 L (39.0-53.0) % MCHC 30.5 L (31.0-37.0) g/dL RDW 18.8 H (11.5-15.5) % Plt Count 69 L (150-450) k/uL ABG pH (7.35-7.45) ABG pCO2 (35-45) mmHg ABG pO2 (83-108) mmHg ABG O2 Saturation (94-97) % Potassium 3.4 L (3.5-5.1) mmol/L Chloride 116 H (98-107) mmol/L Glucose 132 H (74-99) mg/dL POC Glucose (mg/dL) 141 H (75-99) mg/dL Calcium 6.5 L* (8.4-10.2) mg/dL Phosphorus 1.8 L (2.5-4.5) mg/dL Vancomycin Trough ug/mL 04/14/17 Range/Units 04:55 WBC (3.8-10.6) k/uL RBC (4.30-5.90) m/uL Hgb (13.0-17.5) gm/dL Hct (39.0-53.0) % MCHC (31.0-37.0) g/dL RDW (11.5-15.5) % Plt Count (150-450) k/uL ABG pH 7.46 H (7.35-7.45) ABG pCO2 32 L (35-45) mmHg ABG pO2 118 H (83-108) mmHg ABG O2 Saturation 99.0 H (94-97) % Potassium (3.5-5.1) mmol/L Chloride (98-107) mmol/L Glucose (74-99) mg/dL POC Glucose (mg/dL) (75-99) mg/dL Calcium (8.4-10.2) mg/dL Phosphorus (2.5-4.5) mg/dL Vancomycin Trough ug/mL Microbiology - Last 24 Hours (Table) 04/12/17 09:01 Blood Culture Gram Stain - Preliminary Blood 04/12/17 08:58 Blood Culture Gram Stain - Preliminary Blood 04/12/17 08:58 Blood Culture - Final Blood 04/12/17 09:01 Blood Culture - Final Blood 04/12/17 10:30 Urine Culture - Final Urine,Catheterized Kim sp,not albicans/galbr 04/12/17 10:00 Gram Stain - Preliminary Sputum Sputum Culture - Preliminary Assessment and Plan (1) Paraplegia following spinal cord injury Current Visit: Yes Status: Acute Code(s): G82.20 - PARAPLEGIA, UNSPECIFIED SNOMED Code(s): 79029088 (2) Gross hematuria Current Visit: Yes Status: Resolved Code(s): R31.0 - GROSS HEMATURIA SNOMED Code(s): 252694183 (3) Uremia Current Visit: Yes Status: Acute Code(s): N19 - UNSPECIFIED KIDNEY FAILURE SNOMED Code(s): 07641707 (4) Seizure Current Visit: Yes Status: Acute Code(s): R56.9 - UNSPECIFIED CONVULSIONS SNOMED Code(s): 00581463 (5) Toxic metabolic encephalopathy Current Visit: Yes Status: Resolved Code(s): G92 - TOXIC ENCEPHALOPATHY SNOMED Code(s): 575792519 (6) Septic shock Current Visit: Yes Status: Acute Code(s): A41.9 - SEPSIS, UNSPECIFIED ORGANISM; R65.21 - SEVERE SEPSIS WITH SEPTIC SHOCK SNOMED Code(s): 67561434 Plan: Again, element of needing continued vasopressor for blood pressure control. Element of septic shock which is slowly resolving. Probable tracheostomy with PEG tube placement once hemodynamically stable. Dr. Mejia's group will covering for the weekend. Check CBC and CMP in a.m.
[2017-04-14] MEDS ORDERED: HYDROmorphone 2 MG/ML 1 ML SYRINGE IVP PRN (09:03)
--- NOTE | 2017-04-14 11:32 | P.PN ---
<Edita Billy - Last Filed: 04/14/17 12:18> Subjective Progress Note Date: 04/14/17 Principal diagnosis: Acute septic shock secondary to acute urinary tract infection, cystitis. This is a 51-year-old white male, paraplegic, this is related to previous hockey accident and cervical spine injury at age 18. 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 Patient had external sphincterotomy in 1990 and 1994, and has been managed with an exdwelling catheter. In the last 2 weeks, the patient has been noticing dark color urine with some odor. On 03/28 patient was noticing some chills, and on the morning of 03/29 he developed gross hematuria but he was able to void. Later on the patient was passing clots, and he was unable to void. He developed significant suprapubic discomfort, and presented to the ER for evaluation. Upon evaluation the patient was noted to have slight leukocytosis, and renal failure with a BUN of [address] of the abdomen and pelvis showed bilateral nonobstructive renal calculi, and bilateral atrophy of the renal parenchyma. His bladder was noted to be distended, and question the possibility of bladder mass. Patient was started on Levaquin for treatment of urinary tract infection, and he was seen by urology on consultation were in the patient had cystoscopy, and he was found to have hemorrhagic cystitis. The procedure was done on 03/31/2017. Yesterday, in p.m., patient developed an episode of unresponsiveness, patient was hypotensive, nursing staff felt he may have had a seizure, hence he was treated with Keppra, patient was unable to protect his airways, and I was notified about the patient at that time. Patient was given fluid boluses for hypotension, started on levo fed, and later on vasopressin was started. Patient was sent for a CT of the brain which came back negative for CVA. And he was later transferred back to the ICU were and we determined that the patient has a clear cut picture of septic shock from his urinary tract infection which turned out to be secondary to Enterobacter species. Patient was already on Levaquin, this was discontinued and he was placed on Zosyn and Merrem. Overnight, the patient remained relatively hypotensive in spite of significant high doses of norepinephrine, and vasopressin was later started. Presently the patient is on 75 mics of norepinephrine, and he is on 0.05 units of vasopressin. Blood pressure is marginal, many fluid boluses were given, and I believe he received over 10 L of fluids. His urine output has been excellent and he seems to have a polyuria picture. Renal functioning seems to be significantly improved in the last 24 hours. Lactic acid remains high this morning at 5.1. All his electrolytes were abnormal including low potassium which was corrected, calcium was also corrected, and his creatinine improved from 2.36 down to 1.50. Urine cultures were noted, but no blood cultures have been noted so far. Today I saw the patient in the ICU, remains on mechanical ventilation, his ventilator settings are tidal volume of 500, assist control rate of 20, FiO2 is down to 50%, and PEEP is at 5. ABG showed a pO2 of 136 pCO2 of 31 pH of 7.23, hence the patient was given more bicarb, and kept on the bicarb drip with 3 A of bicarb in 1 L of D5W running at 1 25 mL per hour. In spite of all of this, the patient is on small dose of propofol, he is arousable, and follows simple instructions. Seems to be very appropriate. Neurology-yanez, the patient was given Keppra, and EEG was ordered, it is not certain whether the patient truly had a seizure or not. Patient was reevaluated today on 04/02/2017, remains on mechanical ventilation, same vent setting, however his FiO2 is decreased down to 45%, tidal volume remains at 500, assist control rate is at 20, and PEEP is at 5. ABG this morning showed a pO2 of 103 pCO2 of 33 pH of 7.40. Hence, down significantly on the sodium bicarb drip, The patient on IV fluids, patient still requiring significant fluid boluses to maintain an adequate mean arterial blood pressure. His urine output has been excellent, he is putting out almost 300 mL per hour. Patient continues to have leukocytosis with WBC count of 36.3 hemoglobin is 11.5. Renal profile is basically almost back to normal. And his acute kidney injury has resolved. Sodium is elevated, at 147, hence I changed his IV fluid 0.45 instead of 0.9. His electrolytes were noted to be abnormal, and these were all being corrected as per protocol. Chest x-ray continues to show retrocardiac consolidation, and small left pleural effusion. I was able to review an old x-ray from 2011, apparently had some chronic scarring in the left lower lobe, and some atelectasis in the left retrocardiac area, but not as pronounced as noted on this present x-ray from this admission. Patient remains on norepinephrine at 75 g, he is also on vasopressin at 0.05 units. Reevaluated today on 04/03/2017, patient remains on mechanical ventilation, same ventilator settings as noted above with FiO2 of 45% tidal volume of 500 assist control rate of 20 and PEEP of 5. ABG showed a pO2 of 79 pCO2 of 32 pH of 7.42 hence the sodium bicarb drip was discontinued. Lactic acid is responding but slowly and today's lactic acid is 3.9. More fluid boluses were given today, continues to have significant urine output, and patient had a positive balance of 2 L in the last 24 hours. Albumin will be given today, his potassium and calcium are being corrected as per protocol. Renal functioning remains normal. However WBC count is up to 42.4, hemoglobin is 10.3, platelets are down to 88,000, hence I have discontinued his Lovenox. One blood culture from the showed Enterobacter, another blood culture showed Enterobacter and nonhemolytic strep. The nonhemolytic strep is probably a contaminant. Patient was on vancomycin, doubt if we need to restart vancomycin at this point , patient is being followed by infectious disease, remains presently on Merrem and Zosyn to cover Enterobacter and Pseudomonas. Blood pressure-yanez, the patient remains on 45 mics of norepinephrine, and 0.05 units of vasopressin. We are in the process of titrating the norepinephrine down since the blood pressure seems to be holding better today than it was in the last couple of days. All meds were reviewed, patient also remains on propofol, relatively small dose to keep him slightly sedated, but the patient is arousable, and follows instructions. Chest x-ray continues to show left lower lobe retrocardiac opacity which is I believe chronic. Nutrition-yanez the patient seems to be tolerating tube feeding well via nasogastric tube. The patient is seen again today 04/04/2017 in follow-up in the intensive care unit. He remains intubated on the mechanical ventilator with settings of assist control mode at a rate of 20, tidal volume 500, FiO2 45%, PEEP of 5. Morning blood gases reveal pO2 of 100, pCO2 30, pH 7.41 with a mixed acid-base abnormality including respiratory alkalosis and metabolic acidosis. The patient 's cultures were positive for Enterobacter aerogenes and pseudomonas aeruginosa in the urine, Enterobacter aerogenes nonhemolytic strep in the blood. He remains on meropenem and vancomycin. He is also on norepinephrine at 25 mcg/m, vasopressin at 0.05 units per minute, propofol at 11 mcg/kg/m, insulin at 7.5 units per hour. He is being nourished with Vital HP at 57 mL per hour which is goal. He has a 0.45 normal saline at 200 mL's per hour. He is alert and oriented and nods his head appropriately. The patient is seen again today 04/05/2017 in follow-up in the intensive care unit. He remains intubated and on mechanical ventilator. Current settings assist-control mode of rate of 20, tidal volume 500, FiO2 40% and a PEEP of 5. Morning arterial blood gases revealed a pO2 of 113 on 45% FiO2, pCO2 35, pH 7.36. He remains alert and oriented following simple commands by nodding his head yes and no appropriately. He remains on norepinephrine at 9 mcg/m, vasopressin at 0.05 units per minute, propofol at 10 mcg/kg/m, hydrocortisone at 12.5 mg per hour, insulin at 0.5 units per hour. He has 0.45 normal saline at 200 MLS per hour. He is being nourished with Vital HP at 57 mL per hour which is goal. He is receiving flushes of 30 mL every 4 hours. He remains on meropenem. Progress note dated 04/06/2017 This is a 51-year-old male with a history of respiratory failure secondary to overwhelming sepsis and septic shock from a urinary tract infection secondary to Enterobacter Jameson reason pseudomonas aeruginosa. Blood cultures were also positive for Enterobacter around kidneys. The patient is doing relatively well. His FiO2 and PEEP levels are low. His blood gases are reasonable. His weaning parameters today were fine and were thinking about extubating the patient. In addition, the patient has a history of hypoxemic respiratory failure severe metabolic derangements including lactic acidemia secondary to sepsis previous history of paraplegia with neurogenic bladder acute kidney injury secondary to septic shock and acute tubular necrosis and a history of kidney stones. The patient has had multiple surgeries for skin grafts of pressure sores as well as previous sphincterotomy and lithotripsy for kidney stones. Again the patient seemed be doing relatively well today. We'll stop his propofol. Local had an empty stomach. We'll give him a CPAP/PSV trial. We 'll check a cuff leak. We will do a rapid shallow breathing index. Everything looks good, trial of extubation. On 04/11/2017 I'm seeing this patient for a follow-up. As mentioned earlier the patient was treated for septic shock and he was aggressively resuscitated with IV fluids and currently is hemodynamically stable. Nevertheless he is in obvious fluid overload with increased edema in lower extremities and upper extremity is bilaterally and today's chest x-ray shows small bilateral pleural effusion which was not present on previous chest x-rays. ET tube is in a good location. As mentioned earlier the patient has failed extubation twice and the plan is to proceed with a tracheostomy tube insertion today. He will also need a PEG tube insertion. Hemodynamically the patient is still borderline hypotensive on 3 mics of levo fed for hemodynamic support. Nevertheless, he is producing more than 200 mL of urine output on an hourly basis. His sodium is elevated at 145 and the patient is receiving D5 water at the rate of 1 75 mL an hour. He is an assist-control mode of ventilation. Currently is on assist control of 22, tidal volume of 450, FiO2 of 40% and a PEEP of 5. His morning blood Showed a pH of 7.56 with a pCO2 of 34 and pO2 of 143. He is afebrile. The blood culture was positive for Enterobacter and the patient is on IV Merrem. Urine cultures positive for Enterobacter and Pseudomonas. As mentioned earlier, the patient is paraplegic. He has leg wounds bilaterally which are more like excoriation and some degree of skin sloughing due to his peripheral edema. He also has some similar findings on his coccyx. His white cell count is up from 42 down to 8.1 and it was essentially related to his sepsis. Clinically, the patient is awake. The patient is following commands and answering simple questions. His been off Diprivan for the past 24 hours. On 04/12/2017 I'm seeing this patient for a follow-up. The patient is awake while being on mechanical ventilator. He remains somewhat hypotensive. Overnight I was contacted the patient's pressor doses have been gradually increased up to 6 mics and the patient also spiked a temperature. Based on that I asked the patient to be recultured including blood and urine. I also asked ID to reevaluate the patient and vancomycin got admitted on an empiric basis. The patient was also started on vasopressin and an attempt to gradually wean off the norepinephrine infusion. Earlier this morning, I noted that the patient started having some diarrhea and there is obvious concern for C. diff colitis. Stool will be sent for C. diff evaluation. I also discussed the case with the thoracic surgeon and Dr. Montes was a bit hesitant to proceed with a PEG and trach specially with his ongoing hemodynamic instability and he opted to wait on the procedure for another 24-48 hours. Meanwhile, I noted that the patient seemed to have a good state of weaning parameters earlier this morning. I give him a spontaneous breathing trial with a pressure support of 5 and a PEEP of 5 and within 10 to any minutes into the trial the patient decompensated and became hypotensive and hypoxic and he went into respiratory distress. Based on that the spot is breathing trial was aborted and the patient was placed back on assist control mode. His hypernatremia is improving and the sodium level is improved. The patient received D5 water addition to free water through the NG. D5 water will be kept on nontender the patient has become progressively more edematous both in upper and lower extremities. He has also skin excoriation around his buttocks and lower extremities bilaterally and local wound care is being applied. Calcium level from this morning was at 6.2 and the patient was given it in part of calcium gluconate 1 g. A drop in hemoglobin was also noted down to 7.7 and this probably is dilutional. The patient is tolerating enteral feeding through his NG tube. The patient is seen again today 04/13/2017 in follow-up in the intensive care unit. He remains awake and alert and following commands. He unfortunately remains on the mechanical ventilator. Current settings are assist-control mode of 18, tidal volume 400, FiO2 40% and a PEEP of 5. Morning blood gases reveal a pO2 of 132, pCO2 31 and a pH of 7.47. Chest x-ray reveals bilateral infiltrates and pleural effusions but no significant interval change. He does continue to spike fevers up to 102.3 earlier this morning. Follow-up blood, urine and sputum cultures have been negative. He remains on meropenem and vancomycin. He still continues with issues with hypotension and is on vasopressin at 0.03 units per minute along with norepinephrine at 5 mcg/m. He is tolerating his tube feedings which are at 65 MLS per hour his goal. His hemoglobin remained stable at 8.5. Sodium 144, chloride 1:15. AST 312, ALT 186 , alk phos 327. An ultrasound of the gallbladder appeared to be within normal limits. There is moderate hepatic steatosis. Right-sided nephrolithiasis without evidence of hydronephrosis. Based on his continued temps and hypotension there no immediate plans for tracheostomy and PEG tube placement checked today. The patient is seen again today 04/14/2017 in follow-up in the intensive care unit. He remains awake and alert and following commands. He is responding appropriately. He remains intubated on the mechanical ventilator with vent settings of assist control mode of 18, tidal volume 400, FiO2 40% and a PEEP of 5. Morning blood gases reveal a P O2 of 118, pCO2 of 32, pH 7.46. White count 2.2. Hemoglobin 8.3. Creatinine 0.80. His temperature today was 100.7. He is slightly tachycardic. Follow-up urine culture is positive for Patsy. He was initiated on micafungin. Sputum cultures reveal no growth to date. Catheter tip reveals no growth. Blood cultures reveal no growth. There is a nondraining wound at the base of his penis. The wounds on his lower extremities are dry. There is also a fluid collection in the right upper extremity via Doppler yesterday. He remains on ertapenem and vancomycin. He also remains on vasopressin at 0.03 units per minute, norepinephrine at 9 mcg/ m. Propofol remains off. Objective - Vital Signs Vital signs: Vital Signs Temp 100.7 F H 04/14/17 08:00 Pulse 103 H 04/14/17 11:05 Resp 21 04/14/17 09:00 BP 97/48 04/14/17 09:00 Pulse Ox 96 04/14/17 09:00 Intake & Output 04/13/17 04/14/17 04/14/17 18:59 06:59 18:59 Intake Total 7281.176 1526.871 796 Output Total 2290 2820 500 Balance -518.333 -1036.129 296 Weight 114.8 kg 114.8 kg Intake: IV 260 420 340 Dextrose 5% in Water 1, 260 220 40 000 ml @ 20 mls/hr IV . Q24H MANDA Rx#:[id number] Ertapenem 1 gm In Sodium 100 Chloride 0.9% 50 ml @ 100 mls/hr IVPB DAILY MANDA Rx #:[id number] Magnesium Sulfate-D5w Pmx 100 100 1 gm In Dextrose/Water 1 100ml.bag @ 100 mls/hr IVPB Q1H MANDA Rx#: [id number] levETIRAcetam IV 1,000 mg 100 100 In Saline 1 100ml.bag @ 400 mls/hr IVPB Q12HR MANDA Rx#:[id number] Intake, IV Titration 95.667 67.871 Amount Norepinephrin 16 mg-0.9% 95.667 67.871 Ns Pmx 16 mg In 250 ml @ Titrate IV .Q0M MANDA Rx#: [id number] Tube Feeding 1216 896 256 Other 200 400 200 Output: Urine 2290 2820 500 Other: Voiding Method Indwelling Catheter Indwelling Catheter ABP, PAP, CO, CI - Last Documented Arterial Blood Pressure 67/38 - Exam Physical Exam: Revealed a 51-year-old white male, morbidly obese, on mechanical ventilation,,alert, no distress at present. HEENT: Short obese neck. Neck is supple. No neck masses.No thyromegaly.No JVD. PERRLA, EOMI, moist mucous membranes. Endotracheal tube is intact. Chest: Diminished breath sounds at the bases, especially at the left base. no crackles nor rhonchi no wheezes. Cardiac Exam: Normal S1 and S2, no S3 gallop, no murmur. Abdomen: Obese, Soft, nontender, no megaly, no rebound, no guarding, normal bowel sounds. Extremities: No clubbing, no edema, no cyanosis. Significant muscle atrophy and wasting of muscles noted in lower extremities, patient is paraplegic. Flexion contractures noted bilaterally. Neurological Exam: No focal neurologic deficit. Except for paraplegia from the waist down. Lymphatics: No lymphadenopathy. Psychiatric: Normal mood, affect, and cannot fully assess mental status exam. - Labs CBC & Chem 7: 04/14/17 04:39 04/14/17 04:39 Labs: Abnormal Lab Results - Last 24 Hours (Table) 04/13/17 04/13/17 04/13/17 Range/Units 11:08 12:16 18:43 WBC (3.8-10.6) k/uL RBC (4.30-5.90) m/uL Hgb (13.0-17.5) gm/dL Hct (39.0-53.0) % MCHC (31.0-37.0) g/dL RDW (11.5-15.5) % Plt Count (150-450) k/uL ABG pH (7.35-7.45) ABG pCO2 (35-45) mmHg ABG pO2 (83-108) mmHg ABG O2 Saturation (94-97) % Potassium (3.5-5.1) mmol/L Chloride (98-107) mmol/L Glucose (74-99) mg/dL POC Glucose (mg/dL) 126 H 130 H (75-99) mg/dL Calcium (8.4-10.2) mg/dL Phosphorus (2.5-4.5) mg/dL Vancomycin Trough 35.2 H* ug/mL 04/13/17 04/14/17 04/14/17 Range/Units 23:44 04:39 04:39 WBC 2.2 L (3.8-10.6) k/uL RBC 2.92 L (4.30-5.90) m/uL Hgb 8.3 L (13.0-17.5) gm/dL Hct 27.3 L (39.0-53.0) % MCHC 30.5 L (31.0-37.0) g/dL RDW 18.8 H (11.5-15.5) % Plt Count 69 L (150-450) k/uL ABG pH (7.35-7.45) ABG pCO2 (35-45) mmHg ABG pO2 (83-108) mmHg ABG O2 Saturation (94-97) % Potassium 3.4 L (3.5-5.1) mmol/L Chloride 116 H (98-107) mmol/L Glucose 132 H (74-99) mg/dL POC Glucose (mg/dL) 141 H (75-99) mg/dL Calcium 6.5 L* (8.4-10.2) mg/dL Phosphorus 1.8 L (2.5-4.5) mg/dL Vancomycin Trough ug/mL 04/14/17 Range/Units 04:55 WBC (3.8-10.6) k/uL RBC (4.30-5.90) m/uL Hgb (13.0-17.5) gm/dL Hct (39.0-53.0) % MCHC (31.0-37.0) g/dL RDW (11.5-15.5) % Plt Count (150-450) k/uL ABG pH 7.46 H (7.35-7.45) ABG pCO2 32 L (35-45) mmHg ABG pO2 118 H (83-108) mmHg ABG O2 Saturation 99.0 H (94-97) % Potassium (3.5-5.1) mmol/L Chloride (98-107) mmol/L Glucose (74-99) mg/dL POC Glucose (mg/dL) (75-99) mg/dL Calcium (8.4-10.2) mg/dL Phosphorus (2.5-4.5) mg/dL Vancomycin Trough ug/mL Microbiology - Last 24 Hours (Table) 04/12/17 10:00 Gram Stain - Final Sputum Sputum Culture - Final 04/12/17 09:01 Blood Culture Gram Stain - Preliminary Blood 04/12/17 08:58 Blood Culture Gram Stain - Preliminary Blood 04/12/17 08:58 Blood Culture - Final Blood 04/12/17 09:01 Blood Culture - Final Blood 04/12/17 10:30 Urine Culture - Final Urine,Catheterized Patsy sp,not albicans/galbr Assessment and Plan Assessment: Impression: 1 acute septic shock secondary to urinary tract infection, acute cystitis secondary to Enterobacter aerogenes and pseudomonas aeruginosa as noted in the urine. His blood cultures are positive for Enterobacter. Blood cultures negative. He remains on meropenem, and the patient is on low-dose levo fed for blood pressure support On 04/12/2017, the patient remains pressor dependent. He remains septic. Unable to wean off the pressors. Furthermore think a further complicated as the patient spiked another high-grade temperature of 103.0. He was recultured and the patient had broadened antibiotic coverage and currently is on a combination of meropenem and vancomycin. In addition, the patient started having some diarrhea and possibility of an acute C. diff colitis cannot be completely excluded On 04/13/2017 the patient remains pressor dependent. Unable to wean off the norepinephrine infusion which is currently running at 6 mics. Always uses septic hypotension under the patient still spiking fever. The exact source is not clear. The patient was recultured. The patient's antibiotic coverage is normal to include a combination of merrem and vancomycin. LFTs are abnormal. There is no indication for an acute cholecystitis based on the ultrasound findings and the patient has a benign abdomen. Skin. Potential sources monitor the patient has some excoriation of the skin and sloughing of the lower extremities of the Buttock. 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 I am concerned of line infection and he will possibility of a patsy/fungal infection. The cardiac status needs to be evaluated On 04/14/2017 the patient remains pressor dependent. He is currently on 9 g of norepinephrine. He is also on 0.03 units per minute of vasopressin. There is still no identified source of infection. His urine did show Patsy and he' s been started on micafungin. He is currently on ertapenem and vancomycin. Blood, sputum, catheter tip cultures were all negative. 2 acute hypoxic respiratory failure secondary to above. Failed extubation requiring reintubation. The plan is for probable tracheostomy on 04/11/2017, however the patient's procedure got canceled due to ongoing hemodynamic changes and decision opted to wait for another 24 hours today's further stable. Meanwhile, the patient was given another spontaneous breathing trial and he failed and based on that no attempts to extubate this patient were done. We are more convinced that he will need a PEG and trach at a later stage. 3 acute metabolic, lactic acidosis secondary to 1, recovered 4 history of paraplegia and neurogenic bladder. 5 acute kidney injury secondary to sepsis and septic shock. 6 history of nephrolithiasis/bilateral. 7 history of multiple surgeries including skin graft for pressure sores, right ureteroscopy with lithotripsy in 2005 and external sphincterotomy 1990 and 1994. 8 hypotension and the patient is still requiring low-dose pressors for blood pressure support 9 extensive edema in lower extremities bilaterally along with superficial scale ulcerations and excoriation and sloughing in the lower extremities and coccyx. 10 leukocytosis, improved 11 acute respiratory alkalosis, improving 12 small bilateral pleural effusions. 13 abnormal LFTs with elevation and alkaline phosphatase, and ultrasound the gallbladder shows no evidence of any cholecystitis, and the liver function tests are being monitored and are comparable to yesterday's values. 14 hypernatremia, improving and the patient's sodium level is normalized 15 anemia, stable hemoglobin for now. Plan The patient was seen and evaluated by Dr. Ferrer. His chest x-ray, ABGs and labs were all reviewed. The patient on mechanical ventilator. The tracheostomy and PEG tube insertion was postponed until the patient is medically stable. Echocardiogram report is pending. The skin was reexamined and was normal soft tissue infection or any significant wound to explain his hypotension. An arterial line will be placed for more accurate blood pressure readings. Continue vasopressin. Wean off if possible. Condition is critical. We'll continue to follow make further recommendations based on progress. LFTs are abnormal and this will be monitored. The abdominal exam is benign. Neurologically the patient is awake and alert. Not ready for weaning to profound weakness and prolonged hospitalization secondary to sepsis. He has failed spontaneous breathing trial in the past. Tracheostomy once more stable. This is discussed at length with him and with his family members. Critical care evaluation 38 minutes. I, the cosigning physician, have performed a history and physical examination on the patient. Lung sounds are coarse scattered rhonchi. Crackles in the posterior bases.. Maintaining good O2 saturations in the 90s on 40%. I have discussed the assessment and plan of care with my nurse practitioner, Edita Billy. I attest the above documented note as dictated by her. <Mattehw Ferrer - Last Filed: 04/14/17 16:47> Objective - Vital Signs Vital signs: Vital Signs Temp 100.7 F H 04/14/17 12:00 Pulse 93 04/14/17 15:30 Resp 19 04/14/17 15:30 BP 85/46 04/14/17 15:30 Pulse Ox 95 04/14/17 15:30 Intake & Output 04/13/17 04/14/17 04/14/17 18:59 06:59 18:59 Intake Total 8085.631 2655.871 1512 Output Total 2290 2820 920 Balance -518.333 -1036.129 592 Weight 114.8 kg 114.8 kg Intake: IV 260 420 480 Dextrose 5% in Water 1, 260 220 180 000 ml @ 20 mls/hr IV . Q24H [facility] Rx#:[id number] Ertapenem 1 gm In Sodium 100 Chloride 0.9% 50 ml @ 100 mls/hr IVPB DAILY [facility] Rx #:[id number] Magnesium Sulfate-D5w Pmx 100 100 1 gm In Dextrose/Water 1 100ml.bag @ 100 mls/hr IVPB Q1H [facility] Rx#: [id number] levETIRAcetam IV 1,000 mg 100 100 In Saline 1 100ml.bag @ 400 mls/hr IVPB Q12HR [facility] Rx#:[id number] Intake, IV Titration 95.667 67.871 Amount Norepinephrin 16 mg-0.9% 95.667 67.871 Ns Pmx 16 mg In 250 ml @ Titrate IV .Q0M [facility] Rx#: [id number] Tube Feeding 1216 896 832 Other 200 400 200 Output: Urine 2290 2820 920 Other: Voiding Method Indwelling Catheter Indwelling Catheter Indwelling Catheter ABP, PAP, CO, CI - Last Documented Arterial Blood Pressure 67/38 - Labs CBC & Chem 7: 04/14/17 04:39 04/14/17 04:39 Labs: Abnormal Lab Results - Last 24 Hours (Table) 04/13/17 04/13/17 04/14/17 Range/Units 18:43 23:44 04:39 WBC (3.8-10.6) k/uL RBC (4.30-5.90) m/uL Hgb (13.0-17.5) gm/dL Hct (39.0-53.0) % MCHC (31.0-37.0) g/dL RDW (11.5-15.5) % Plt Count (150-450) k/uL ABG pH (7.35-7.45) ABG pCO2 (35-45) mmHg ABG pO2 (83-108) mmHg ABG O2 Saturation (94-97) % Potassium 3.4 L (3.5-5.1) mmol/L Chloride 116 H (98-107) mmol/L Glucose 132 H (74-99) mg/dL POC Glucose (mg/dL) 130 H 141 H (75-99) mg/dL Calcium 6.5 L* (8.4-10.2) mg/dL Phosphorus 1.8 L (2.5-4.5) mg/dL 04/14/17 04/14/17 04/14/17 Range/Units 04:39 04:55 12:11 WBC 2.2 L (3.8-10.6) k/uL RBC 2.92 L (4.30-5.90) m/uL Hgb 8.3 L (13.0-17.5) gm/dL Hct 27.3 L (39.0-53.0) % MCHC 30.5 L (31.0-37.0) g/dL RDW 18.8 H (11.5-15.5) % Plt Count 69 L (150-450) k/uL ABG pH 7.46 H (7.35-7.45) ABG pCO2 32 L (35-45) mmHg ABG pO2 118 H (83-108) mmHg ABG O2 Saturation 99.0 H (94-97) % Potassium (3.5-5.1) mmol/L Chloride (98-107) mmol/L Glucose (74-99) mg/dL POC Glucose (mg/dL) 142 H (75-99) mg/dL Calcium (8.4-10.2) mg/dL Phosphorus (2.5-4.5) mg/dL Microbiology - Last 24 Hours (Table) 04/12/17 10:00 Gram Stain - Final Sputum Sputum Culture - Final 04/12/17 09:01 Blood Culture Gram Stain - Preliminary Blood 04/12/17 08:58 Blood Culture Gram Stain - Preliminary Blood 04/12/17 08:58 Blood Culture - Final Blood 04/12/17 09:01 Blood Culture - Final Blood 04/12/17 10:30 Urine Culture - Final Urine,Catheterized Patsy sp,not albicans/galbr Assessment and Plan Assessment: This is a joint evaluation that was done along with a nurse practitioner. I attest to the above-mentioned information. Noted the patient is still hypotensive pressor dependent. The antibiotic modification has been noted. I started the patient on micafungin general regarding candidal urinary tract infection. The patient also that switched to Invanz and meropenem was discontinued due to abnormal liver function tests. The patient is still having on and off fever. Pressors are still active and the patient is him 9 mics of norepinephrine infusion and vasopressin. We'll attempt to wean off pressors as tolerated. We will consider the addition of an outlying catheter for accurate blood pressure monitoring. Continue tube feeds. Continue vent support. Echocardiogram was done and results are still pending for now. We will opted results of the echocardiogram. We'll continue to follow make further, this accordingly. There is a critically care evaluation that was done in more than 30 minutes. Family was updated on the condition. Prognosis remains poor.
[2017-04-14] MEDS: POTASSIUM PHOSPHATE 10 MMOL in SODIUM CHLORIDE 0.9% 250 ML IV SCH ×2 (11:36→13:41)
[2017-04-14] MEDS: VANCOMYCIN 1,750 MG in SODIUM CHLORIDE 0.9% 250 ML IVPB SCH ×2 (11:37→14:43)
[2017-04-14 12:13] LABS: Glucose,Whole Blood 142 mg/dL (75-99)
--- NOTE | 2017-04-14 12:24 | XR ---
EXAMINATION TYPE: XR chest 1V portable DATE OF EXAM: 04/14/2017 COMPARISON: 04/13/2017 HISTORY: Postintubation TECHNIQUE: Single frontal view of the chest is obtained. FINDINGS: ET tube stable. However, NG tube is been pulled back to the mid esophageal level. Bilateral infiltrate and small effusion noted. Mild central venous congestion not excluded. Biapical pleural thickening and cardiomegaly stable. Lower lung burris are not included on exam due to positio mars. This results in limited exam. IMPRESSION: 1. ET tube stable, however, NG tube is now seen at the mid esophageal level and should be advanced. R eport called to patient's nurse. 2. Bilateral infiltrate and pleural effusion.
[2017-04-14] MEDS: DEXTROSE 5% IN WATER 1,000 ML IV SCH (13:41)
[2017-04-14] MEDS: LACTATED RINGERS 1,000 ML IV SCH (13:41)
[2017-04-14] MEDS: HYDROmorphone 2 MG/ML 1 ML SYRINGE IVP PRN (14:52)
[2017-04-14] MEDS: VANCOMYCIN ORAL SOLUTION 250 MG/5 ML BOTTLE NG-TUBE SCH (16:59)
[2017-04-14] MEDS: MICAFUNGIN 100 MG in SODIUM CHLORIDE 0.9% 100 ML IVPB SCH (17:03)
[2017-04-14 17:07] LABS: Glucose,Whole Blood 125 mg/dL (75-99)
--- NOTE | 2017-04-14 17:14 | ECHOF ---
Referral Reason:hypotension MEASUREMENTS -------- HEIGHT: 188.0 cm WEIGHT: 124.7 kg BP: 115/54 RVIDd: 2.6 cm (< 3.3) IVSd: 1.2 cm (0.6 - 1.1) LVIDd: 4.5 cm (3.9 - 5.3) LVPWd: 1.4 cm (0.6 - 1.1) EDV(Teich): 91 ml IVSs: 1.4 cm LVIDs: 3.6 cm LVPWs: 1.2 cm %IVS Thck: 17 % ESV(Teich): 54 ml EF(Teich): 40 % %FS: 20 % SV(Teich): 37 ml LA Diam: 2.3 cm (2.7 - 3.8) Ao Diam: 3.9 cm (2.0 - 3.7) AV Cusp: 2.1 cm (1.5 - 2.6) MV EXCURSION: 21.475 mm (> 18.000) MV EF SLOPE: 89 mm/s (70 - 150) EPSS: 0.5 cm MV E Shorty: 0.76 m/s MV DecT: 207 ms MV Dec [place]: 3.7 m/s MV A Shorty: 0.58 m/s MV E/A Ratio: 1.30 MV PHT: 60 ms E/E': 11.27 E': 0.07 m/s AV Vmax: 1.37 m/s AV maxP.51 mmHg TR Vmax: 1.74 m/s TR maxP.09 mmHg RAP: 5.00 mmHg RVSP: 17.09 mmHg FINDINGS -------- Undetermined rhythm. This was a technically adequate study. Morbid Obesity The left ventricular size is normal. There is mild concentric left ventricular hypertrophy. Overa ll left ventricular systolic function is mildly impaired with, an EF between 45 - 50 %. The right ventricle is normal in size. The right atrial size is normal. The aortic valve is trileaflet, and appears structurally normal. No aortic stenosis or regurgitation. Mild mitral regurgitation is present. Mild tricuspid regurgitation present. There is no evidence of pulmonary hypertension. The right v entricular systolic pressure, as measured by Doppler, is 17.09mmHg. There is no pulmonic regurgitation present. The aortic root size is normal. Echo free space represents a pericardial fat pad. There is a small, generalized pericardial effusio n present. Large Pleural Effusion. CONCLUSIONS -------- 1. This was a technically adequate study. 2. Morbid Obesity 3. The left ventricular size is normal. 4. There is mild concentric left ventricular hypertrophy. 5. Overall left ventricular systolic function is mildly impaired with, an EF between 45 - 50 %. 6. The aortic valve is trileaflet, and appears structurally normal. No aortic stenosis or regurgitati on. 7. Mild mitral regurgitation is present. 8. Mild tricuspid regurgitation present. 9. There is no evidence of pulmonary hypertension. 10. The right ventricular systolic pressure, as measured by Doppler, is 17.09mmHg. 11. There is no pulmonic regurgitation present. 12. The aortic root size is normal. 13. Echo free space represents a pericardial fat pad. 14. There is a small, generalized pericardial effusion present. 15. Large Pleural Effusion. [employer] ASSOCIATE: Eduarda Mclaughlin RDCS
[2017-04-14] MEDS: NOREPINEPHRIN 16 MG-0.9%NS PMX 16 MG/250 ML ML IV SCH (18:55)
--- NOTE | 2017-04-14 23:22 | PN ---
PROGRESS NOTE DATE OF SERVICE: 04/14/2017 REASON FOR FOLLOWUP: 1. Enterobacter bacteremia. 2. Kim UTI with secondary fungemia. 3. Persistent fevers. 4. Diarrhea. INTERVAL HISTORY: The patient still has a low-grade fever and hypotension requiring pressor support. His FiO2 remains to be stable. He is awake, alert and follows commands, has been tolerating his tube feeds, did have significant diarrhea for which the patient currently has a rectal tube. EXAMINATION: Blood pressure is 98/52 with a pulse of 93, temperature of 99.9. He is 95% on 40% FiO2. General description is a middle-aged male lying in bed in no distress. RESPIRATORY SYSTEM: Unlabored breathing with decreased breath sounds in the bases. No wheeze. HEART: S1, S2. Regular rate and rhythm. ABDOMEN: Soft. No tenderness. No guarding or rigidity. LABS: Hemoglobin 8.3 with white count of 2.2. BUN of 18, creatinine 0.80. Vanc random this morning was 20.3. DIAGNOSTIC IMPRESSION AND PLAN: Patient with admission gram-negative sepsis with Enterobacter and Pseudomonas in the urine, Enterobacter in the blood for which the patient has been on meropenem with sepsis and ventilator-dependent respiratory failure, now with new fever with evidence of a Kim species in the urine as well as in the blood. Source is likely urinary. The patient is currently covered with micafungin and Invanz. Now with persistent fever and did have significant diarrhea, concerning likely for a Clostridium difficile. A stool for Clostridium difficile PCR will be requested. Vancomycin oral will be added. Plan of care discussed in detail with the it professional. Overall prognosis continues to be guarded. Continue supportive care. MMODL / IJN: [id number] /
[2017-04-15 00:10] LABS: Glucose,Whole Blood 149 mg/dL (75-99)
[2017-04-15] MEDS: INSULIN ASPART 100 UNIT/ML 1 ML 10 ML VIAL SQ SCH ×5 (00:24→23:46)
[2017-04-15] MEDS: VANCOMYCIN ORAL SOLUTION 250 MG/5 ML BOTTLE NG-TUBE SCH ×5 (00:24→23:55)
[2017-04-15] MEDS: HYDROmorphone 2 MG/ML 1 ML SYRINGE IVP PRN ×2 (02:39→12:10)
[2017-04-15] MEDS: IPRATROPIUM-ALBUTEROL 3 ML NEB INHALATION SCH ×6 (03:04→23:00)
[2017-04-15 04:58] LABS: ABG PH 7.36 (7.35-7.45)
[2017-04-15 04:59] LABS: ABG Base Excess -0.9 mmol/L; ABG HCO3 24 mmol/L (21-25); ABG PCO2 43 mmHg (35-45); ABG PO2 81 mmHg (83-108); ABG TCO2 25 mmol/L (19-24)
[2017-04-15 05:27] LABS: Anisocytosis Slight; HCT 29.6 % (39.0-53.0); HGB 8.9 gm/dL (13.0-17.5); Hypochromasia Moderate; MCH 28.5 pg (25.0-35.0); MCHC 29.9 g/dL (31.0-37.0); MCV 95.2 fL (80.0-100.0); Macrocytosis Slight; Mean Platelet Volume 9.5; RBC 3.11 m/uL (4.30-5.90); RDW 17.4 % (11.5-15.5); WBC 3.7 k/uL (3.8-10.6)
[2017-04-15 05:33] LABS: Platelet Count 78 k/uL (150-450)
[2017-04-15 05:41] LABS: Anion Gap 5 mmol/L; Blood Urea Nitrogen 20 mg/dL (9-20); Calcium 7.1 mg/dL (8.4-10.2); Carbon Dioxide 27 mmol/L (22-30); Chloride 117 mmol/L (98-107); Glucose 132 mg/dL (74-99); Magnesium 1.8 mg/dL (1.6-2.3); Phosphorus 2.6 mg/dL (2.5-4.5); Potassium 3.9 mmol/L (3.5-5.1); Sodium 149 mmol/L (137-145)
[2017-04-15 06:04] LABS: Glucose,Whole Blood 145 mg/dL (75-99)
[2017-04-15] MEDS: NOREPINEPHRIN 16 MG-0.9%NS PMX 16 MG/250 ML ML IV SCH ×2 (06:30→22:57)
[2017-04-15] MEDS: SODIUM CHLORIDE 0.9% 99 ML with VASOPRESSIN 20 UNIT IV SCH ×4 (06:42→23:44)
[2017-04-15] MEDS: CHLORHEXIDINE GLUCONATE 15 ML CUP MUCOUS MEM SCH ×2 (08:30→20:40)
[2017-04-15] MEDS: DEXTROSE 5% IN WATER 1,000 ML IV SCH ×5 (09:00→23:47)
--- NOTE | 2017-04-15 09:07 | P.PN ---
Subjective Progress Note Date: 04/15/17 This is a 51-year-old white male, paraplegic, this is related to previous hockey accident and cervical spine injury at age 18. 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 Patient had external sphincterotomy in 1990 and 1994, and has been managed with an exdwelling catheter. In the last 2 weeks, the patient has been noticing dark color urine with some odor. On 03/28 patient was noticing some chills, and on the morning of 03/29 he developed gross hematuria but he was able to void. Later on the patient was passing clots, and he was unable to void. He developed significant suprapubic discomfort, and presented to the ER for evaluation. Upon evaluation the patient was noted to have slight leukocytosis, and renal failure with a BUN of [address] of the abdomen and pelvis showed bilateral nonobstructive renal calculi, and bilateral atrophy of the renal parenchyma. His bladder was noted to be distended, and question the possibility of bladder mass. Patient was started on Levaquin for treatment of urinary tract infection, and he was seen by urology on consultation were in the patient had cystoscopy, and he was found to have hemorrhagic cystitis. The procedure was done on 03/31/2017. Yesterday, in p.m., patient developed an episode of unresponsiveness, patient was hypotensive, nursing staff felt he may have had a seizure, hence he was treated with Keppra, patient was unable to protect his airways, and I was notified about the patient at that time. Patient was given fluid boluses for hypotension, started on levo fed, and later on vasopressin was started. Patient was sent for a CT of the brain which came back negative for CVA. And he was later transferred back to the ICU were and we determined that the patient has a clear cut picture of septic shock from his urinary tract infection which turned out to be secondary to Enterobacter species. Patient was already on Levaquin, this was discontinued and he was placed on Zosyn and Merrem. Overnight, the patient remained relatively hypotensive in spite of significant high doses of norepinephrine, and vasopressin was later started. Presently the patient is on 75 mics of norepinephrine, and he is on 0.05 units of vasopressin. Blood pressure is marginal, many fluid boluses were given, and I believe he received over 10 L of fluids. His urine output has been excellent and he seems to have a polyuria picture. Renal functioning seems to be significantly improved in the last 24 hours. Lactic acid remains high this morning at 5.1. All his electrolytes were abnormal including low potassium which was corrected, calcium was also corrected, and his creatinine improved from 2.36 down to 1.50. Urine cultures were noted, but no blood cultures have been noted so far. Today I saw the patient in the ICU, remains on mechanical ventilation, his ventilator settings are tidal volume of 500, assist control rate of 20, FiO2 is down to 50%, and PEEP is at 5. ABG showed a pO2 of 136 pCO2 of 31 pH of 7.23, hence the patient was given more bicarb, and kept on the bicarb drip with 3 A of bicarb in 1 L of D5W running at 1 25 mL per hour. In spite of all of this, the patient is on small dose of propofol, he is arousable, and follows simple instructions. Seems to be very appropriate. Neurology-yanez, the patient was given Keppra, and EEG was ordered, it is not certain whether the patient truly had a seizure or not. Patient was reevaluated today on 04/02/2017, remains on mechanical ventilation, same vent setting, however his FiO2 is decreased down to 45%, tidal volume remains at 500, assist control rate is at 20, and PEEP is at 5. ABG this morning showed a pO2 of 103 pCO2 of 33 pH of 7.40. Hence, down significantly on the sodium bicarb drip, The patient on IV fluids, patient still requiring significant fluid boluses to maintain an adequate mean arterial blood pressure. His urine output has been excellent, he is putting out almost 300 mL per hour. Patient continues to have leukocytosis with WBC count of 36.3 hemoglobin is 11.5. Renal profile is basically almost back to normal. And his acute kidney injury has resolved. Sodium is elevated, at 147, hence I changed his IV fluid 0.45 instead of 0.9. His electrolytes were noted to be abnormal, and these were all being corrected as per protocol. Chest x-ray continues to show retrocardiac consolidation, and small left pleural effusion. I was able to review an old x-ray from 2011, apparently had some chronic scarring in the left lower lobe, and some atelectasis in the left retrocardiac area, but not as pronounced as noted on this present x-ray from this admission. Patient remains on norepinephrine at 75 g, he is also on vasopressin at 0.05 units. Reevaluated today on 04/03/2017, patient remains on mechanical ventilation, same ventilator settings as noted above with FiO2 of 45% tidal volume of 500 assist control rate of 20 and PEEP of 5. ABG showed a pO2 of 79 pCO2 of 32 pH of 7.42 hence the sodium bicarb drip was discontinued. Lactic acid is responding but slowly and today's lactic acid is 3.9. More fluid boluses were given today, continues to have significant urine output, and patient had a positive balance of 2 L in the last 24 hours. Albumin will be given today, his potassium and calcium are being corrected as per protocol. Renal functioning remains normal. However WBC count is up to 42.4, hemoglobin is 10.3, platelets are down to 88,000, hence I have discontinued his Lovenox. One blood culture from the showed Enterobacter, another blood culture showed Enterobacter and nonhemolytic strep. The nonhemolytic strep is probably a contaminant. Patient was on vancomycin, doubt if we need to restart vancomycin at this point , patient is being followed by infectious disease, remains presently on Merrem and Zosyn to cover Enterobacter and Pseudomonas. Blood pressure-yanez, the patient remains on 45 mics of norepinephrine, and 0.05 units of vasopressin. We are in the process of titrating the norepinephrine down since the blood pressure seems to be holding better today than it was in the last couple of days. All meds were reviewed, patient also remains on propofol, relatively small dose to keep him slightly sedated, but the patient is arousable, and follows instructions. Chest x-ray continues to show left lower lobe retrocardiac opacity which is I believe chronic. Nutrition-yanez the patient seems to be tolerating tube feeding well via nasogastric tube. The patient is seen again today 04/04/2017 in follow-up in the intensive care unit. He remains intubated on the mechanical ventilator with settings of assist control mode at a rate of 20, tidal volume 500, FiO2 45%, PEEP of 5. Morning blood gases reveal pO2 of 100, pCO2 30, pH 7.41 with a mixed acid-base abnormality including respiratory alkalosis and metabolic acidosis. The patient 's cultures were positive for Enterobacter aerogenes and pseudomonas aeruginosa in the urine, Enterobacter aerogenes nonhemolytic strep in the blood. He remains on meropenem and vancomycin. He is also on norepinephrine at 25 mcg/m, vasopressin at 0.05 units per minute, propofol at 11 mcg/kg/m, insulin at 7.5 units per hour. He is being nourished with Vital HP at 57 mL per hour which is goal. He has a 0.45 normal saline at 200 mL's per hour. He is alert and oriented and nods his head appropriately. The patient is seen again today 04/05/2017 in follow-up in the intensive care unit. He remains intubated and on mechanical ventilator. Current settings assist-control mode of rate of 20, tidal volume 500, FiO2 40% and a PEEP of 5. Morning arterial blood gases revealed a pO2 of 113 on 45% FiO2, pCO2 35, pH 7.36. He remains alert and oriented following simple commands by nodding his head yes and no appropriately. He remains on norepinephrine at 9 mcg/m, vasopressin at 0.05 units per minute, propofol at 10 mcg/kg/m, hydrocortisone at 12.5 mg per hour, insulin at 0.5 units per hour. He has 0.45 normal saline at 200 MLS per hour. He is being nourished with Vital HP at 57 mL per hour which is goal. He is receiving flushes of 30 mL every 4 hours. He remains on meropenem. Progress note dated 04/06/2017 This is a 51-year-old male with a history of respiratory failure secondary to overwhelming sepsis and septic shock from a urinary tract infection secondary to Enterobacter Jameson reason pseudomonas aeruginosa. Blood cultures were also positive for Enterobacter around kidneys. The patient is doing relatively well. His FiO2 and PEEP levels are low. His blood gases are reasonable. His weaning parameters today were fine and were thinking about extubating the patient. In addition, the patient has a history of hypoxemic respiratory failure severe metabolic derangements including lactic acidemia secondary to sepsis previous history of paraplegia with neurogenic bladder acute kidney injury secondary to septic shock and acute tubular necrosis and a history of kidney stones. The patient has had multiple surgeries for skin grafts of pressure sores as well as previous sphincterotomy and lithotripsy for kidney stones. Again the patient seemed be doing relatively well today. We'll stop his propofol. Local had an empty stomach. We'll give him a CPAP/PSV trial. We 'll check a cuff leak. We will do a rapid shallow breathing index. Everything looks good, trial of extubation. On 04/11/2017 I'm seeing this patient for a follow-up. As mentioned earlier the patient was treated for septic shock and he was aggressively resuscitated with IV fluids and currently is hemodynamically stable. Nevertheless he is in obvious fluid overload with increased edema in lower extremities and upper extremity is bilaterally and today's chest x-ray shows small bilateral pleural effusion which was not present on previous chest x-rays. ET tube is in a good location. As mentioned earlier the patient has failed extubation twice and the plan is to proceed with a tracheostomy tube insertion today. He will also need a PEG tube insertion. Hemodynamically the patient is still borderline hypotensive on 3 mics of levo fed for hemodynamic support. Nevertheless, he is producing more than 200 mL of urine output on an hourly basis. His sodium is elevated at 145 and the patient is receiving D5 water at the rate of 1 75 mL an hour. He is an assist-control mode of ventilation. Currently is on assist control of 22, tidal volume of 450, FiO2 of 40% and a PEEP of 5. His morning blood Showed a pH of 7.56 with a pCO2 of 34 and pO2 of 143. He is afebrile. The blood culture was positive for Enterobacter and the patient is on IV Merrem. Urine cultures positive for Enterobacter and Pseudomonas. As mentioned earlier, the patient is paraplegic. He has leg wounds bilaterally which are more like excoriation and some degree of skin sloughing due to his peripheral edema. He also has some similar findings on his coccyx. His white cell count is up from 42 down to 8.1 and it was essentially related to his sepsis. Clinically, the patient is awake. The patient is following commands and answering simple questions. His been off Diprivan for the past 24 hours. On 04/12/2017 I'm seeing this patient for a follow-up. The patient is awake while being on mechanical ventilator. He remains somewhat hypotensive. Overnight I was contacted the patient's pressor doses have been gradually increased up to 6 mics and the patient also spiked a temperature. Based on that I asked the patient to be recultured including blood and urine. I also asked ID to reevaluate the patient and vancomycin got admitted on an empiric basis. The patient was also started on vasopressin and an attempt to gradually wean off the norepinephrine infusion. Earlier this morning, I noted that the patient started having some diarrhea and there is obvious concern for C. diff colitis. Stool will be sent for C. diff evaluation. I also discussed the case with the thoracic surgeon and Dr. Montes was a bit hesitant to proceed with a PEG and trach specially with his ongoing hemodynamic instability and he opted to wait on the procedure for another 24-48 hours. Meanwhile, I noted that the patient seemed to have a good state of weaning parameters earlier this morning. I give him a spontaneous breathing trial with a pressure support of 5 and a PEEP of 5 and within 10 to any minutes into the trial the patient decompensated and became hypotensive and hypoxic and he went into respiratory distress. Based on that the spot is breathing trial was aborted and the patient was placed back on assist control mode. His hypernatremia is improving and the sodium level is improved. The patient received D5 water addition to free water through the NG. D5 water will be kept on nontender the patient has become progressively more edematous both in upper and lower extremities. He has also skin excoriation around his buttocks and lower extremities bilaterally and local wound care is being applied. Calcium level from this morning was at 6.2 and the patient was given it in part of calcium gluconate 1 g. A drop in hemoglobin was also noted down to 7.7 and this probably is dilutional. The patient is tolerating enteral feeding through his NG tube. The patient is seen again today 04/13/2017 in follow-up in the intensive care unit. He remains awake and alert and following commands. He unfortunately remains on the mechanical ventilator. Current settings are assist-control mode of 18, tidal volume 400, FiO2 40% and a PEEP of 5. Morning blood gases reveal a pO2 of 132, pCO2 31 and a pH of 7.47. Chest x-ray reveals bilateral infiltrates and pleural effusions but no significant interval change. He does continue to spike fevers up to 102.3 earlier this morning. Follow-up blood, urine and sputum cultures have been negative. He remains on meropenem and vancomycin. He still continues with issues with hypotension and is on vasopressin at 0.03 units per minute along with norepinephrine at 5 mcg/m. He is tolerating his tube feedings which are at 65 MLS per hour his goal. His hemoglobin remained stable at 8.5. Sodium 144, chloride 1:15. AST 312, ALT 186 , alk phos 327. An ultrasound of the gallbladder appeared to be within normal limits. There is moderate hepatic steatosis. Right-sided nephrolithiasis without evidence of hydronephrosis. Based on his continued temps and hypotension there no immediate plans for tracheostomy and PEG tube placement checked today. The patient is seen again today 04/14/2017 in follow-up in the intensive care unit. He remains awake and alert and following commands. He is responding appropriately. He remains intubated on the mechanical ventilator with vent settings of assist control mode of 18, tidal volume 400, FiO2 40% and a PEEP of 5. Morning blood gases reveal a P O2 of 118, pCO2 of 32, pH 7.46. White count 2.2. Hemoglobin 8.3. Creatinine 0.80. His temperature today was 100.7. He is slightly tachycardic. Follow-up urine culture is positive for Kim. He was initiated on micafungin. Sputum cultures reveal no growth to date. Catheter tip reveals no growth. Blood cultures reveal no growth. There is a nondraining wound at the base of his penis. The wounds on his lower extremities are dry. There is also a fluid collection in the right upper extremity via Doppler yesterday. He remains on ertapenem and vancomycin. He also remains on vasopressin at 0.03 units per minute, norepinephrine at 9 mcg/ m. Propofol remains off. On 04/15/2017 I'm seeing this patient for a follow-up. The ongoing active issue for now is his fever and hypotension. The patient was worked up extensively for the fever and ultimately the blood culture came back positive for Kim parapsilosis. Note that his urine culture was also positive for Kim. I had ordered to start the patient on micafungin and his been on the antifungal treatment for the past 24 hours. The exact source of the Kim is not clear although it could be the PICC line is present in the right upper extremity. In any rate this is a double-lumen PICC line and one of the ports is now functioning it's leaking at least 2, out and the tip will be sent also for cultures. The patient this morning is on 50 mics of norepinephrine infusion. The patient is also on physiologic dose vasopressin. He is having fever with a T-max of 101.3. At the same time, he is awake and alert. He is following commands. On the mechanical ventilation and no changes on his vent settings have been down. His is on assist-control mode of ventilation at the rate of 18, tidal volume 400, FiO2 of 40% and a PEEP of 5. Chest x-ray from yesterday showed no evidence of any pneumonia. The patient is small bilateral pleural effusion which remains essentially unchanged. ET tube remains in a good location. No significant secretions through the orotracheal tube. As far as his hemodynamics, the patient as mentioned is hypotensive on norepinephrine infusion however he is producing adequate amount of urine output. The patient has a normal renal function with a creatinine of 0.8. The skin examination shows multiple wounds in the lower extremities bilaterally at described earlier in my dictation. Appropriate dressings have been applied to his lower extremities bilaterally and his coccygeal area. He is tolerating tube feeds. His sodium level is again on the rise and the sodium level today is up to 149. There is a component of hyperchloremic hypernatremia. He is also having liquidy diet intake bowel movements in the order of 200-300 mL every 8 hours. We'll for C. diff evaluation has been negative. The patient is on enteral feeding and he is receiving vital high protein at the rate of 64 mL an hour. He is also receiving free water flushes 30 mL every 4 hours. Terms of antibiotic coverage, the patient is currently on micafungin. The patient is also on a combination of Invanz and IV vancomycin was discontinued by infectious disease and the patient was switched oral vancomycin in consideration for C. diff colitis despite the fact that the stool evaluation was negative for C. diff. The latest vancomycin level from yesterday was 20.3. Objective - Vital Signs Vital signs: Vital Signs Temp 99.5 F 04/15/17 04:00 Pulse 120 H 04/15/17 07:44 Resp 23 04/15/17 07:00 BP 84/52 04/15/17 07:00 Pulse Ox 93 L 04/15/17 07:00 Intake & Output 04/14/17 04/15/17 04/15/17 18:59 06:59 18:59 Intake Total 2142.662 1561.969 Output Total 1420 2200 Balance 722.662 -638.031 Weight 114.8 kg 112 kg Intake: IV 560 240 Dextrose 5% in Water 1, 260 240 000 ml @ 20 mls/hr IV . Q24H MANDA Rx#:[id number] Ertapenem 1 gm In Sodium 100 Chloride 0.9% 50 ml @ 100 mls/hr IVPB DAILY MANDA Rx #:[id number] Magnesium Sulfate-D5w Pmx 100 1 gm In Dextrose/Water 1 100ml.bag @ 100 mls/hr IVPB Q1H MANDA Rx#: [id number] levETIRAcetam IV 1,000 mg 100 In Saline 1 100ml.bag @ 400 mls/hr IVPB Q12HR MANDA Rx#:[id number] Intake, IV Titration 166.662 207.969 Amount Norepinephrin 16 mg-0.9% 166.662 207.969 Ns Pmx 16 mg In 250 ml @ Titrate IV .Q0M MANDA Rx#: [id number] Tube Feeding 1216 1024 Other 200 90 Output: Urine 1420 2200 Other: Voiding Method Indwelling Catheter Indwelling Catheter ABP, PAP, CO, CI - Last Documented Arterial Blood Pressure 67/38 - Exam Physical Exam: Revealed a 51-year-old white male, morbidly obese, on mechanical ventilation,,alert, no distress at present. HEENT: Short obese neck. Neck is supple. No neck masses.No thyromegaly.No JVD. PERRLA, EOMI, moist mucous membranes. Endotracheal tube is intact. Chest: Diminished breath sounds at the bases, especially at the left base. no crackles nor rhonchi no wheezes. Cardiac Exam: Normal S1 and S2, no S3 gallop, no murmur. Abdomen: Obese, Soft, nontender, no megaly, no rebound, no guarding, normal bowel sounds. Extremities: No clubbing, there is bilateral pitting edema and there is also multiple areas of skin ulceration which is superficial in lower extremities bilaterally. The skin is losing and weeping because of increased lower eczematous swelling. There is no cyanosis. Significant muscle atrophy and wasting of muscles noted in lower extremities, patient is paraplegic. Flexion contractures noted bilaterally. Neurological Exam: focal neurologic deficit. paraplegia from the waist down. Cranial nerves are intact. The patient has no facial asymmetry. The patient is awake and responsive and follows commands and answer questions appropriately. Lymphatics: No lymphadenopathy. Psychiatric: Normal mood, affect, and cannot fully assess mental status exam. - Labs CBC & Chem 7: 04/15/17 04:46 04/15/17 04:46 Labs: Abnormal Lab Results - Last 24 Hours (Table) 04/14/17 04/14/17 04/15/17 Range/Units 12:11 17:05 00:09 WBC (3.8-10.6) k/uL RBC (4.30-5.90) m/uL Hgb (13.0-17.5) gm/dL Hct (39.0-53.0) % MCHC (31.0-37.0) g/dL RDW (11.5-15.5) % Plt Count (150-450) k/uL ABG pO2 (83-108) mmHg ABG Total CO2 (19-24) mmol/L Sodium (137-145) mmol/L Chloride (98-107) mmol/L Glucose (74-99) mg/dL POC Glucose (mg/dL) 142 H 125 H 149 H (75-99) mg/dL Calcium (8.4-10.2) mg/dL 04/15/17 04/15/17 04/15/17 Range/Units 04:46 04:46 04:52 WBC 3.7 L (3.8-10.6) k/uL RBC 3.11 L (4.30-5.90) m/uL Hgb 8.9 L (13.0-17.5) gm/dL Hct 29.6 L (39.0-53.0) % MCHC 29.9 L (31.0-37.0) g/dL RDW 17.4 H (11.5-15.5) % Plt Count 78 L (150-450) k/uL ABG pO2 81 L (83-108) mmHg ABG Total CO2 25 H (19-24) mmol/L Sodium 149 H (137-145) mmol/L Chloride 117 H (98-107) mmol/L Glucose 132 H (74-99) mg/dL POC Glucose (mg/dL) (75-99) mg/dL Calcium 7.1 L (8.4-10.2) mg/dL 04/15/17 Range/Units 06:03 WBC (3.8-10.6) k/uL RBC (4.30-5.90) m/uL Hgb (13.0-17.5) gm/dL Hct (39.0-53.0) % MCHC (31.0-37.0) g/dL RDW (11.5-15.5) % Plt Count (150-450) k/uL ABG pO2 (83-108) mmHg ABG Total CO2 (19-24) mmol/L Sodium (137-145) mmol/L Chloride (98-107) mmol/L Glucose (74-99) mg/dL POC Glucose (mg/dL) 145 H (75-99) mg/dL Calcium (8.4-10.2) mg/dL Microbiology - Last 24 Hours (Table) 04/12/17 08:58 Blood Culture Gram Stain - Final Blood Blood Culture - Final Kim parapsilosis 04/12/17 09:01 Blood Culture Gram Stain - Final Blood Blood Culture - Final Kim parapsilosis 04/12/17 10:00 Gram Stain - Final Sputum Sputum Culture - Final Assessment and Plan Plan: Impression: 1 acute septic shock secondary to urinary tract infection, acute cystitis secondary to Enterobacter aerogenes and pseudomonas aeruginosa as noted in the urine. His blood cultures are positive for Enterobacter. Blood cultures negative. He remains on meropenem, and the patient is on low-dose levo fed for blood pressure support Subsequently, the patient continued to be septic and hypotensive and on today's evaluation of 04/15/2017 the patient has confirmed candidiasis/candidemia and his blood cultures positive for Kim parapsilosis. The exact source is not clear although line infection is highly considered especially the patient is a PICC line in the right upper extremity. The PICC line will be removed and the patient will be started with a triple lumen catheter. The tip of the PICC line will be sent for cultures. The patient is on micafungin for now. Meanwhile, the patient is still requiring pressors for hemodynamic support. The patient is currently on a combination of levo fed and vasopressin for blood pressure support. 2 acute hypoxic respiratory failure secondary to above. Failed extubation requiring reintubation. The plan is for probable tracheostomy on 04/11/2017, however the patient's procedure got canceled due to ongoing hemodynamic changes and decision opted to wait for another 24 hours today's further stable. Meanwhile, the patient was given another spontaneous breathing trial and he failed and based on that no attempts to extubate this patient were done. We are more convinced that he will need a PEG and trach at a later stage. The patient remains hemodynamically unstable and he is not ready to undergo the procedure yet. The procedure has been postponed until his sepsis is under better control. 3 acute metabolic, lactic acidosis secondary to 1, recovered 4 history of paraplegia and neurogenic bladder. 5 acute kidney injury secondary to sepsis and septic shock, recovered 6 history of nephrolithiasis/bilateral. 7 history of multiple surgeries including skin graft for pressure sores, right ureteroscopy with lithotripsy in 2005 and external sphincterotomy 1990 and 1994. 8 hypotension and the patient is still requiring pressors for blood pressure support 9 extensive edema in lower extremities bilaterally along with superficial scale ulcerations and excoriation and sloughing in the lower extremities and coccyx. 10 leukocytosis, improved 11 acute respiratory alkalosis, improving 12 small bilateral pleural effusions. 13 abnormal LFTs with elevation and alkaline phosphatase, and ultrasound the gallbladder shows no evidence of any cholecystitis, and the liver function tests are being monitored . Rule out drug effect. Rule out Merrem affecting the patient has been switched to Invanz. 14 hypernatremia, recurrent 15 anemia, stable hemoglobin for now. 16 diarrhea, possibly antibiotic induced. There is no evidence of any C. diff colitis. Plan Continue vent support. We will do PICC line and send the tip for culture. Start the patient on a triple lumen catheter and this will be a fresh stick. Continue micafungin for now. ID to comment on the systemic fungemia. Continue pressors for hemodynamic support. Start the patient back on D5 water infusion and increased the rate up t0 75 mL an hour. Continue vent support. No vent changes will be done for today. No weaning trials. Consider PEG and trach by early next week if the patient's condition is more stable. Will discuss discontinuing the oral vancomycin with infectious disease. The source of infection is candidiasis and candidemia and this is the cause for the patient's hypotension rather than diarrhea. Condition remains critical. Long-term prognosis poor. We'll continue to follow. A triple lumen catheter will be inserted. The knot-like catheter be inserted. There is a critically care evaluation that was done and more than 30 minutes. Time with Patient: Greater than 30
[2017-04-15] MEDS: ACETAMINOPHEN TAB 325 MG TAB PO PRN (09:29)
--- NOTE | 2017-04-15 11:34 | XR ---
EXAMINATION TYPE: XR chest 1V portable DATE OF EXAM: 04/15/2017 HISTORY: Line placement. REFERENCE: Previous study dated 04/14/2017. FINDINGS: The patient is NG tube has been advanced. Its tip is now within the stomach. The patient is ET tube remains in place, unchanged in appearance. The heart is enlarged. There is left basilar airspace disease. There is a left effusion. I suspect a smaller right-sided effusion. Overall aeration at the left lung base may have improved slightly. IMPRESSION: 1. IMPROVING LEFT BASILAR AIRSPACE DISEASE. 2. SMALL, BILATERAL EFFUSIONS, GREATER ON THE LEFT THAN THE RIGHT.
--- NOTE | 2017-04-15 12:07 | XR ---
EXAMINATION TYPE: XR chest 1V portable DATE OF EXAM: 04/15/2017 HISTORY: desating on vent. REFERENCE: Previous study dated 04/15/2017. FINDINGS: The patient is ET tube and NG tube remain in place, unchanged in appearance. There is a lef t subclavian catheter in place. Its tip is in the superior vena cava. The heart is enlarged. There is patchy bilateral airspace disease worse on the left than the right. T he left-sided airspace disease has worsened from previous. There is a small left effusion. IMPRESSION: 1. WORSENING LEFT BASILAR AIRSPACE DISEASE. 2. PATCHY RIGHT-SIDED AIRSPACE DISEASE. 3. CARDIOMEGALY. 4. LEFT-SIDED EFFUSION.
[2017-04-15] MEDS: PANTOPRAZOLE 40 MG/10 ML VIAL IV SCH (12:20)
[2017-04-15] MEDS: levETIRAcetam IV 1,000 MG in SALINE 1 100ML.BAG IVPB SCH ×2 (12:21→20:42)
[2017-04-15] MEDS: ERTAPENEM 1 GM in SODIUM CHLORIDE 0.9% 50 ML IVPB SCH (12:21)
[2017-04-15] MEDS: BISACODYL 10 MG SUPP RECTAL SCH (12:23)
[2017-04-15 12:43] LABS: Glucose,Whole Blood 129 mg/dL (75-99)
--- NOTE | 2017-04-15 12:44 | PCN ---
PROCEDURE NOTE TRIPLE LUMEN CATHETER PLACEMENT: INDICATION: Hemodynamic monitoring/Intravenous access. DESCRIPTION OF PROCEDURE: A time-out was completed verifying correct patient, procedure, site, positioning, and implant(s) or special equipment if applicable. The patient was placed in a dependent position appropriate for triple lumen catheter placement based on the vein to be cannulated (left subclavian). The patient's left shoulder was prepped and draped in sterile fashion. 1% Lidocaine was used to anesthetize the surrounding skin area. A triple lumen 9F Cordis catheter was introduced into the subclavian or internal jugular or common femoral vein using Seldinger technique. The catheter was threaded smoothly over the guide wire and appropriate blood return was obtained. Each lumen of the catheter was evacuated of air and flushed with sterile saline. The catheter was then sutured in place to the skin and a sterile dressing applied. Perfusion to the extremity distal to the point of catheter insertion was checked and found to be adequate. No bedside complications or bleeding. MMODL / IJN: [id number] /
--- NOTE | 2017-04-15 12:50 | PCN ---
PROCEDURE NOTE ARTERIAL LINE PLACEMENT: PREOPERATIVE DIAGNOSIS: Septic shock. POSTOPERATIVE DIAGNOSIS: Septic shock. INDICATION: Hemodynamic monitoring. A time-out was completed verifying correct patient, procedure, site, positioning, and implant(s) or special equipment if applicable. Heriberto's test was performed to ensure adequate perfusion. The patient's right wrist was prepped and draped in sterile fashion for placement in his right radial artery. 1% Lidocaine was used to anesthetize the area. An 18G Arrow arterial line was introduced into the radial artery. The catheter was threaded over the guide wire and the needle was removed with appropriate pulsatile blood return. Blood loss was minimal. The catheter was then sutured in place to the skin and a sterile dressing applied. Perfusion to the extremity distal to the point of catheter insertion was checked and found to be adequate. The patient tolerated the procedure well and there were no bedside complications or bleeding. MMODL / IJN: [id number] /
[2017-04-15] MEDS: LACTATED RINGERS 1,000 ML IV SCH (14:35)
[2017-04-15] MEDS: FLUCONAZOLE IN NACL,ISO-OSM 400 MG in SALINE 1 200ML.BAG IVPB SCH (14:57)
[2017-04-15] MEDS: CHERRY FLAVOR 60 ML BOTTLE PO PRN (14:58)
[2017-04-15] MEDS: MENTHOL-ZINC OXIDE OINT 113 GM TUBE TOPICAL PRN (17:22)
[2017-04-15 18:42] LABS: Glucose,Whole Blood 134 mg/dL (75-99)
[2017-04-15] MEDS: LACTOBACILLUS ACIDOPH & BULGAR 1 EACH PACKET PO SCH ×2 (18:46→20:42)
[2017-04-15] MEDS: HEPARIN SODIUM,PORCINE 5,000 UNIT/ML 1 ML VIAL SQ SCH (19:44)
[2017-04-15] MEDS ORDERED: POTASSIUM CHLORIDE ORAL LIQUID 40 MEQ/30 ML CUP NG-TUBE SCH (20:00)
--- NOTE | 2017-04-15 20:38 | PN ---
PROGRESS NOTE DATE OF SERVICE: 04/15/17 I am covering for Dr. Owens. This 51-year-old gentleman with history of paraplegia and spinal injury was admitted with UTI with Pseudomonas, Enterobacter and sepsis. The patient is mechanically intubated. Patient being closely monitored in ICU at this time. Multiple consultants including Dr. Ferrer and Dr. Oreilly are following the patient closely. Patient with history of neurogenic bladder, also. The patient on mechanical ventilation. The patient much more alert. The patient being closely monitored. PAST MEDICAL HISTORY: Reviewed. REVIEW OF SYSTEM: Cannot be taken, the patient is mechanically ventilated and sedated. MEDICATIONS: Current medications reviewed and include: 1. Tylenol 650 q.6 p.r.n. 2. DuoNeb q2 p.r.n. and q.i.d. and q.2h p.r.n. 3. Bactrim DS. 4. Dulcolax 10 mg rectally p.r.n. 6. Hairston syrup. 7. Peridex 15 mL b.i.d. p.r.n. 9. Fluconazole 200 mg IV daily. 10.Dilaudid 0.5 mg IV b.i.d. 11.Dilaudid 1 mg IV q.2h p.r.n. 12.NovoLog scale. 13.Lactated Ringers p.r.n. 14.Lactobacillus. 15.Keppra 1000 mg IV b.i.d. 16.Narcan 0.2 q.2h p.r.n. 17.Levophed drip. 18.Protonix 40 mg IV daily. 19.Propofol. 20.Vasopressin IV. 21.Vancomycin p.o. solution. PHYSICAL EXAM: Patient is mechanically ventilated and sedated, alert. Today pulse 116, blood pressure 109/77, respiration 29, temperature 99.5, pulse ox 94% on 40% FiO2. Vent settings are noted. HEENT: Conjunctivae normal. Oral mucosa moist. Neck is no jugular venous distention. No carotid bruit. No lymph node enlargement. Cardiovascular S1, S2 muffled. Respiratory: Breath sounds diminished in the bases. Bilateral scattered rhonchi and crackles. ABDOMEN: Soft, obese, nontender. Legs are no edema. No swelling. Central nervous system: No focal deficits. Otherwise fairly weak. Skin: No ulcer, rash or bleeding. LABS: WBC 3.7, hemoglobin 6.9. ASSESSMENT: 1. Acute urinary tract infection with severe sepsis and septic shock secondary to Enterobacter aeruginosa, pseudomonas aeruginosa related to Mclaughlin catheter with acute cystitis. 2. Acute hypoxic respiratory failure possibly secondary to sepsis and on mechanical ventilation. 3. Acute metabolic lactic acidosis. 4. Candidemia in the blood with Kim parapsilosis. 5. History of paraplegia and neurogenic bladder. 6. Nephrolithiasis history. 7. History of multiple surgeries. 8. Anemia of chronic disease. 9. History of gastroesophageal reflux disease. 10.History of Methicillin-resistant Staphylococcus aureus. 11.History of MDRO. 12.History of cystoscopy. 13.FULL CODE. RECOMMENDATIONS AND DISCUSSION: This 51-year-old woman gentleman who presented with multiple complex medical issues, we will monitor the patient closely, continue the current management and continue symptomatic treatment. Otherwise, I would recommend continue broad spectrum IV antibiotics and Diflucan also to cover the Kim. Otherwise bronchodilators. DVT prophylaxis. Continue to monitor. Proton pump inhibitors. Closely monitor with multiple consultants. Prognosis guarded because of the multiple medical issues. Further recommendations to follow. MMODL / IJN: [id number] / [email or web address]
[2017-04-15] MEDS: MAGNESIUM SULFATE-D5W PMX 1 GM in DEXTROSE/WATER 1 100ML.BAG IVPB SCH ×2 (20:39→22:57)
[2017-04-15 23:47] LABS: Glucose,Whole Blood 164 mg/dL (75-99)
[2017-04-16] MEDS: IPRATROPIUM-ALBUTEROL 3 ML NEB INHALATION SCH ×5 (03:14→19:43)
[2017-04-16 04:45] LABS: Anisocytosis Slight; HCT 29.9 % (39.0-53.0); HGB 8.8 gm/dL (13.0-17.5); Hypochromasia Marked; MCH 27.9 pg (25.0-35.0); MCHC 29.4 g/dL (31.0-37.0); Macrocytosis Slight; Mean Platelet Volume 9.7; RBC 3.15 m/uL (4.30-5.90); RDW 18.7 % (11.5-15.5); WBC 5.2 k/uL (3.8-10.6)
[2017-04-16 04:53] LABS: Platelet Count 87 k/uL (150-450)
[2017-04-16 04:57] LABS: Anion Gap 7 mmol/L; Blood Urea Nitrogen 19 mg/dL (9-20); Calcium 7.2 mg/dL (8.4-10.2); Carbon Dioxide 26 mmol/L (22-30); Chloride 115 mmol/L (98-107); Glucose 144 mg/dL (74-99); Phosphorus 1.8 mg/dL (2.5-4.5); Sodium 148 mmol/L (137-145)
[2017-04-16 05:05] LABS: Potassium 3.9 mmol/L (3.5-5.1)
[2017-04-16] MEDS: HEPARIN SODIUM,PORCINE 5,000 UNIT/ML 1 ML VIAL SQ SCH ×3 (05:14→16:08)
[2017-04-16 05:37] LABS: ABG PCO2 36 mmHg (35-45); ABG PH 7.43 (7.35-7.45); ABG PO2 95 mmHg (83-108)
[2017-04-16 05:38] LABS: ABG Base Excess -0.6 mmol/L; ABG HCO3 23 mmol/L (21-25); ABG TCO2 24 mmol/L (19-24)
[2017-04-16 06:02] LABS: Glucose,Whole Blood 153 mg/dL (75-99)
[2017-04-16] MEDS: VANCOMYCIN ORAL SOLUTION 250 MG/5 ML BOTTLE NG-TUBE SCH ×3 (06:05→17:22)
[2017-04-16] MEDS: POTASSIUM PHOSPHATE 10 MMOL in SODIUM CHLORIDE 0.9% 100 ML IV SCH ×2 (06:06→08:38)
[2017-04-16] MEDS: INSULIN ASPART 100 UNIT/ML 1 ML 10 ML VIAL SQ SCH ×3 (06:06→17:22)
[2017-04-16] MEDS: ACETAMINOPHEN TAB 325 MG TAB PO PRN (06:06)
--- NOTE | 2017-04-16 08:13 | XR ---
EXAMINATION TYPE: XR chest 1V portable DATE OF EXAM: 04/16/2017 HISTORY: Intubated. REFERENCE: Previous study dated 04/15/2017. FINDINGS: The entire chest is not included on this study. The heart is enlarged. There continues to be left basilar airspace disease as well as patchy right-si ded airspace disease. I cannot assess for pleural effusion on the left. Patient is ET tube and NG tube remain in place. The tip of the NG tube is not visualized. IMPRESSION: 1. SUBOPTIMAL EXAMINATION WITH FAILURE TO VISUALIZE THE ENTIRE LUNG. 2. CONTINUING LEFT BASILAR AIRSPACE DISEASE. 3. IMPROVED AERATION OF THE RIGHT LUNG. 4. CARDIOMEGALY.
[2017-04-16] MEDS: PANTOPRAZOLE 40 MG/10 ML VIAL IV SCH (08:38)
[2017-04-16] MEDS: levETIRAcetam IV 1,000 MG in SALINE 1 100ML.BAG IVPB SCH ×2 (08:38→20:59)
[2017-04-16] MEDS: CHLORHEXIDINE GLUCONATE 15 ML CUP MUCOUS MEM SCH ×2 (08:39→20:59)
[2017-04-16] MEDS: LACTOBACILLUS ACIDOPH & BULGAR 1 EACH PACKET PO SCH ×4 (08:39→20:59)
--- NOTE | 2017-04-16 09:00 | PN ---
PROGRESS NOTE DATE OF SERVICE: 04/15/2017. REASON FOR FOLLOWUP: 1. Enterobacter UTI and bacteremia. 2. Kim parapsilosis candidemia secondary to the PICC line infection. 3. Diarrhea, antibiotic associated. INTERVAL HISTORY: The patient's overall fever pattern has improved. He did have a fever of 101 this morning. Subsequently, afebrile. The patient PICC line has been discontinued and left subcu line has been placed by the airset molder. The patient remains to be awake, alert, follows commands on the vent. Still has diarrhea. The FiO2 remains to be stable and hemodynamically blood pressure improving. EXAMINATION: Blood pressure 123/53 with a pulse of 109, T-max is 101. He is 95% on 40% FiO2. General description is a middle-aged male lying in bed in no distress. RESPIRATORY SYSTEM: Unlabored breathing. Clear to auscultation anteriorly. HEART: S1, S2. Regular rate and rhythm. ABDOMEN: Soft, no tenderness. LABS: Hemoglobin is 8.8, white count of 3.7 with a BUN of 20, creatinine 0.80. Blood cultures with Kim parapsilosis. DIAGNOSTIC IMPRESSION AND PLAN: 1. Patient with initial to Enterobacter bacteremia secondary to urinary source for which the patient has been Merrem and now currently on Invanz, now with new fever with blood culture positive for Kim parapsilosis. Source could be more likely the PICC line should be discontinued and tip sent for the culture. The antifungals will be adjusted to Diflucan as Kim parapsilosis usually a fluconazole sensitive. 2. Patient's diarrhea, stool for C reported negative. We will add Questran for symptomatic relief. Discontinue the p.o. vancomycin. Continue supportive care. MMODL / IJN: [id number] /
[2017-04-16] MEDS: ERTAPENEM 1 GM in SODIUM CHLORIDE 0.9% 50 ML IVPB SCH (10:32)
[2017-04-16 10:39] LABS: ALT 137 U/L (21-72); AST 153 U/L (17-59); Alkaline Phosphatase 385 U/L (38-126)
[2017-04-16] MEDS: LACTATED RINGERS 1,000 ML IV SCH (10:41)
[2017-04-16] MEDS: DEXTROSE 5% IN WATER 1,000 ML IV SCH ×2 (10:46→13:03)
[2017-04-16 12:12] LABS: Glucose,Whole Blood 142 mg/dL (75-99)
[2017-04-16] MEDS: SODIUM CHLORIDE 0.9% 99 ML with VASOPRESSIN 20 UNIT IV SCH ×4 (12:26→20:59)
[2017-04-16] MEDS: FLUCONAZOLE IN NACL,ISO-OSM 400 MG in SALINE 1 200ML.BAG IVPB SCH (13:16)
--- NOTE | 2017-04-16 14:44 | P.PN ---
Subjective Progress Note Date: 04/16/17 This is a 51-year-old white male, paraplegic, this is related to previous hockey accident and cervical spine injury at age 18. 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 Patient had external sphincterotomy in 1990 and 1994, and has been managed with an exdwelling catheter. In the last 2 weeks, the patient has been noticing dark color urine with some odor. On 03/28 patient was noticing some chills, and on the morning of 03/29 he developed gross hematuria but he was able to void. Later on the patient was passing clots, and he was unable to void. He developed significant suprapubic discomfort, and presented to the ER for evaluation. Upon evaluation the patient was noted to have slight leukocytosis, and renal failure with a BUN of [address] of the abdomen and pelvis showed bilateral nonobstructive renal calculi, and bilateral atrophy of the renal parenchyma. His bladder was noted to be distended, and question the possibility of bladder mass. Patient was started on Levaquin for treatment of urinary tract infection, and he was seen by urology on consultation were in the patient had cystoscopy, and he was found to have hemorrhagic cystitis. The procedure was done on 03/31/2017. Yesterday, in p.m., patient developed an episode of unresponsiveness, patient was hypotensive, nursing staff felt he may have had a seizure, hence he was treated with Keppra, patient was unable to protect his airways, and I was notified about the patient at that time. Patient was given fluid boluses for hypotension, started on levo fed, and later on vasopressin was started. Patient was sent for a CT of the brain which came back negative for CVA. And he was later transferred back to the ICU were and we determined that the patient has a clear cut picture of septic shock from his urinary tract infection which turned out to be secondary to Enterobacter species. Patient was already on Levaquin, this was discontinued and he was placed on Zosyn and Merrem. Overnight, the patient remained relatively hypotensive in spite of significant high doses of norepinephrine, and vasopressin was later started. Presently the patient is on 75 mics of norepinephrine, and he is on 0.05 units of vasopressin. Blood pressure is marginal, many fluid boluses were given, and I believe he received over 10 L of fluids. His urine output has been excellent and he seems to have a polyuria picture. Renal functioning seems to be significantly improved in the last 24 hours. Lactic acid remains high this morning at 5.1. All his electrolytes were abnormal including low potassium which was corrected, calcium was also corrected, and his creatinine improved from 2.36 down to 1.50. Urine cultures were noted, but no blood cultures have been noted so far. Today I saw the patient in the ICU, remains on mechanical ventilation, his ventilator settings are tidal volume of 500, assist control rate of 20, FiO2 is down to 50%, and PEEP is at 5. ABG showed a pO2 of 136 pCO2 of 31 pH of 7.23, hence the patient was given more bicarb, and kept on the bicarb drip with 3 A of bicarb in 1 L of D5W running at 1 25 mL per hour. In spite of all of this, the patient is on small dose of propofol, he is arousable, and follows simple instructions. Seems to be very appropriate. Neurology-yanez, the patient was given Keppra, and EEG was ordered, it is not certain whether the patient truly had a seizure or not. Patient was reevaluated today on 04/02/2017, remains on mechanical ventilation, same vent setting, however his FiO2 is decreased down to 45%, tidal volume remains at 500, assist control rate is at 20, and PEEP is at 5. ABG this morning showed a pO2 of 103 pCO2 of 33 pH of 7.40. Hence, down significantly on the sodium bicarb drip, The patient on IV fluids, patient still requiring significant fluid boluses to maintain an adequate mean arterial blood pressure. His urine output has been excellent, he is putting out almost 300 mL per hour. Patient continues to have leukocytosis with WBC count of 36.3 hemoglobin is 11.5. Renal profile is basically almost back to normal. And his acute kidney injury has resolved. Sodium is elevated, at 147, hence I changed his IV fluid 0.45 instead of 0.9. His electrolytes were noted to be abnormal, and these were all being corrected as per protocol. Chest x-ray continues to show retrocardiac consolidation, and small left pleural effusion. I was able to review an old x-ray from 2011, apparently had some chronic scarring in the left lower lobe, and some atelectasis in the left retrocardiac area, but not as pronounced as noted on this present x-ray from this admission. Patient remains on norepinephrine at 75 g, he is also on vasopressin at 0.05 units. Reevaluated today on 04/03/2017, patient remains on mechanical ventilation, same ventilator settings as noted above with FiO2 of 45% tidal volume of 500 assist control rate of 20 and PEEP of 5. ABG showed a pO2 of 79 pCO2 of 32 pH of 7.42 hence the sodium bicarb drip was discontinued. Lactic acid is responding but slowly and today's lactic acid is 3.9. More fluid boluses were given today, continues to have significant urine output, and patient had a positive balance of 2 L in the last 24 hours. Albumin will be given today, his potassium and calcium are being corrected as per protocol. Renal functioning remains normal. However WBC count is up to 42.4, hemoglobin is 10.3, platelets are down to 88,000, hence I have discontinued his Lovenox. One blood culture from the showed Enterobacter, another blood culture showed Enterobacter and nonhemolytic strep. The nonhemolytic strep is probably a contaminant. Patient was on vancomycin, doubt if we need to restart vancomycin at this point , patient is being followed by infectious disease, remains presently on Merrem and Zosyn to cover Enterobacter and Pseudomonas. Blood pressure-yanez, the patient remains on 45 mics of norepinephrine, and 0.05 units of vasopressin. We are in the process of titrating the norepinephrine down since the blood pressure seems to be holding better today than it was in the last couple of days. All meds were reviewed, patient also remains on propofol, relatively small dose to keep him slightly sedated, but the patient is arousable, and follows instructions. Chest x-ray continues to show left lower lobe retrocardiac opacity which is I believe chronic. Nutrition-yanez the patient seems to be tolerating tube feeding well via nasogastric tube. The patient is seen again today 04/04/2017 in follow-up in the intensive care unit. He remains intubated on the mechanical ventilator with settings of assist control mode at a rate of 20, tidal volume 500, FiO2 45%, PEEP of 5. Morning blood gases reveal pO2 of 100, pCO2 30, pH 7.41 with a mixed acid-base abnormality including respiratory alkalosis and metabolic acidosis. The patient 's cultures were positive for Enterobacter aerogenes and pseudomonas aeruginosa in the urine, Enterobacter aerogenes nonhemolytic strep in the blood. He remains on meropenem and vancomycin. He is also on norepinephrine at 25 mcg/m, vasopressin at 0.05 units per minute, propofol at 11 mcg/kg/m, insulin at 7.5 units per hour. He is being nourished with Vital HP at 57 mL per hour which is goal. He has a 0.45 normal saline at 200 mL's per hour. He is alert and oriented and nods his head appropriately. The patient is seen again today 04/05/2017 in follow-up in the intensive care unit. He remains intubated and on mechanical ventilator. Current settings assist-control mode of rate of 20, tidal volume 500, FiO2 40% and a PEEP of 5. Morning arterial blood gases revealed a pO2 of 113 on 45% FiO2, pCO2 35, pH 7.36. He remains alert and oriented following simple commands by nodding his head yes and no appropriately. He remains on norepinephrine at 9 mcg/m, vasopressin at 0.05 units per minute, propofol at 10 mcg/kg/m, hydrocortisone at 12.5 mg per hour, insulin at 0.5 units per hour. He has 0.45 normal saline at 200 MLS per hour. He is being nourished with Vital HP at 57 mL per hour which is goal. He is receiving flushes of 30 mL every 4 hours. He remains on meropenem. Progress note dated 04/06/2017 This is a 51-year-old male with a history of respiratory failure secondary to overwhelming sepsis and septic shock from a urinary tract infection secondary to Enterobacter Jameson reason pseudomonas aeruginosa. Blood cultures were also positive for Enterobacter around kidneys. The patient is doing relatively well. His FiO2 and PEEP levels are low. His blood gases are reasonable. His weaning parameters today were fine and were thinking about extubating the patient. In addition, the patient has a history of hypoxemic respiratory failure severe metabolic derangements including lactic acidemia secondary to sepsis previous history of paraplegia with neurogenic bladder acute kidney injury secondary to septic shock and acute tubular necrosis and a history of kidney stones. The patient has had multiple surgeries for skin grafts of pressure sores as well as previous sphincterotomy and lithotripsy for kidney stones. Again the patient seemed be doing relatively well today. We'll stop his propofol. Local had an empty stomach. We'll give him a CPAP/PSV trial. We 'll check a cuff leak. We will do a rapid shallow breathing index. Everything looks good, trial of extubation. On 04/11/2017 I'm seeing this patient for a follow-up. As mentioned earlier the patient was treated for septic shock and he was aggressively resuscitated with IV fluids and currently is hemodynamically stable. Nevertheless he is in obvious fluid overload with increased edema in lower extremities and upper extremity is bilaterally and today's chest x-ray shows small bilateral pleural effusion which was not present on previous chest x-rays. ET tube is in a good location. As mentioned earlier the patient has failed extubation twice and the plan is to proceed with a tracheostomy tube insertion today. He will also need a PEG tube insertion. Hemodynamically the patient is still borderline hypotensive on 3 mics of levo fed for hemodynamic support. Nevertheless, he is producing more than 200 mL of urine output on an hourly basis. His sodium is elevated at 145 and the patient is receiving D5 water at the rate of 1 75 mL an hour. He is an assist-control mode of ventilation. Currently is on assist control of 22, tidal volume of 450, FiO2 of 40% and a PEEP of 5. His morning blood Showed a pH of 7.56 with a pCO2 of 34 and pO2 of 143. He is afebrile. The blood culture was positive for Enterobacter and the patient is on IV Merrem. Urine cultures positive for Enterobacter and Pseudomonas. As mentioned earlier, the patient is paraplegic. He has leg wounds bilaterally which are more like excoriation and some degree of skin sloughing due to his peripheral edema. He also has some similar findings on his coccyx. His white cell count is up from 42 down to 8.1 and it was essentially related to his sepsis. Clinically, the patient is awake. The patient is following commands and answering simple questions. His been off Diprivan for the past 24 hours. On 04/12/2017 I'm seeing this patient for a follow-up. The patient is awake while being on mechanical ventilator. He remains somewhat hypotensive. Overnight I was contacted the patient's pressor doses have been gradually increased up to 6 mics and the patient also spiked a temperature. Based on that I asked the patient to be recultured including blood and urine. I also asked ID to reevaluate the patient and vancomycin got admitted on an empiric basis. The patient was also started on vasopressin and an attempt to gradually wean off the norepinephrine infusion. Earlier this morning, I noted that the patient started having some diarrhea and there is obvious concern for C. diff colitis. Stool will be sent for C. diff evaluation. I also discussed the case with the thoracic surgeon and Dr. Montes was a bit hesitant to proceed with a PEG and trach specially with his ongoing hemodynamic instability and he opted to wait on the procedure for another 24-48 hours. Meanwhile, I noted that the patient seemed to have a good state of weaning parameters earlier this morning. I give him a spontaneous breathing trial with a pressure support of 5 and a PEEP of 5 and within 10 to any minutes into the trial the patient decompensated and became hypotensive and hypoxic and he went into respiratory distress. Based on that the spot is breathing trial was aborted and the patient was placed back on assist control mode. His hypernatremia is improving and the sodium level is improved. The patient received D5 water addition to free water through the NG. D5 water will be kept on nontender the patient has become progressively more edematous both in upper and lower extremities. He has also skin excoriation around his buttocks and lower extremities bilaterally and local wound care is being applied. Calcium level from this morning was at 6.2 and the patient was given it in part of calcium gluconate 1 g. A drop in hemoglobin was also noted down to 7.7 and this probably is dilutional. The patient is tolerating enteral feeding through his NG tube. The patient is seen again today 04/13/2017 in follow-up in the intensive care unit. He remains awake and alert and following commands. He unfortunately remains on the mechanical ventilator. Current settings are assist-control mode of 18, tidal volume 400, FiO2 40% and a PEEP of 5. Morning blood gases reveal a pO2 of 132, pCO2 31 and a pH of 7.47. Chest x-ray reveals bilateral infiltrates and pleural effusions but no significant interval change. He does continue to spike fevers up to 102.3 earlier this morning. Follow-up blood, urine and sputum cultures have been negative. He remains on meropenem and vancomycin. He still continues with issues with hypotension and is on vasopressin at 0.03 units per minute along with norepinephrine at 5 mcg/m. He is tolerating his tube feedings which are at 65 MLS per hour his goal. His hemoglobin remained stable at 8.5. Sodium 144, chloride 1:15. AST 312, ALT 186 , alk phos 327. An ultrasound of the gallbladder appeared to be within normal limits. There is moderate hepatic steatosis. Right-sided nephrolithiasis without evidence of hydronephrosis. Based on his continued temps and hypotension there no immediate plans for tracheostomy and PEG tube placement checked today. The patient is seen again today 04/14/2017 in follow-up in the intensive care unit. He remains awake and alert and following commands. He is responding appropriately. He remains intubated on the mechanical ventilator with vent settings of assist control mode of 18, tidal volume 400, FiO2 40% and a PEEP of 5. Morning blood gases reveal a P O2 of 118, pCO2 of 32, pH 7.46. White count 2.2. Hemoglobin 8.3. Creatinine 0.80. His temperature today was 100.7. He is slightly tachycardic. Follow-up urine culture is positive for Kim. He was initiated on micafungin. Sputum cultures reveal no growth to date. Catheter tip reveals no growth. Blood cultures reveal no growth. There is a nondraining wound at the base of his penis. The wounds on his lower extremities are dry. There is also a fluid collection in the right upper extremity via Doppler yesterday. He remains on ertapenem and vancomycin. He also remains on vasopressin at 0.03 units per minute, norepinephrine at 9 mcg/ m. Propofol remains off. On 04/15/2017 I'm seeing this patient for a follow-up. The ongoing active issue for now is his fever and hypotension. The patient was worked up extensively for the fever and ultimately the blood culture came back positive for Kim parapsilosis. Note that his urine culture was also positive for Kim. I had ordered to start the patient on micafungin and his been on the antifungal treatment for the past 24 hours. The exact source of the Kim is not clear although it could be the PICC line is present in the right upper extremity. In any rate this is a double-lumen PICC line and one of the ports is now functioning it's leaking at least 2, out and the tip will be sent also for cultures. The patient this morning is on 50 mics of norepinephrine infusion. The patient is also on physiologic dose vasopressin. He is having fever with a T-max of 101.3. At the same time, he is awake and alert. He is following commands. On the mechanical ventilation and no changes on his vent settings have been down. His is on assist-control mode of ventilation at the rate of 18, tidal volume 400, FiO2 of 40% and a PEEP of 5. Chest x-ray from yesterday showed no evidence of any pneumonia. The patient is small bilateral pleural effusion which remains essentially unchanged. ET tube remains in a good location. No significant secretions through the orotracheal tube. As far as his hemodynamics, the patient as mentioned is hypotensive on norepinephrine infusion however he is producing adequate amount of urine output. The patient has a normal renal function with a creatinine of 0.8. The skin examination shows multiple wounds in the lower extremities bilaterally at described earlier in my dictation. Appropriate dressings have been applied to his lower extremities bilaterally and his coccygeal area. He is tolerating tube feeds. His sodium level is again on the rise and the sodium level today is up to 149. There is a component of hyperchloremic hypernatremia. He is also having liquidy diet intake bowel movements in the order of 200-300 mL every 8 hours. We'll for C. diff evaluation has been negative. The patient is on enteral feeding and he is receiving vital high protein at the rate of 64 mL an hour. He is also receiving free water flushes 30 mL every 4 hours. Terms of antibiotic coverage, the patient is currently on micafungin. The patient is also on a combination of Invanz and IV vancomycin was discontinued by infectious disease and the patient was switched oral vancomycin in consideration for C. diff colitis despite the fact that the stool evaluation was negative for C. diff. The latest vancomycin level from yesterday was 20.3. On 04/16/2017 I'm seeing this patient for a follow-up. As mentioned earlier, the patient remains intubated on a mechanical ventilator with failure to wean. He is awake and alert and his communicating. He was found to have candidal sepsis and the patient was a she started on micafungin and following that he was switched to high-dose Diflucan. The PICC line in the right approximately was removed and a triple lumen cath in the left subclavian vein was inserted yesterday. He also has an art line. This morning he is on 15 mics of norepinephrine infusion. He is however having only low-grade fever. He is more stable compared to yesterday more awake and alert and more interactive. His blood pressure is improved and I think this would be a good time to start weaning his norepinephrine infusion. He is tolerating his tube feeds. He remains on a mechanical ventilator. No changes on the vent setting was done. Chest x-ray shows small better pleural effusion. It tube is in a good location. No evidence of any pneumothorax. There is a subclavian vein triple- lumen catheter in place. The patient's sodium level is gradually improving. The patient is on D5 water at the rate of 75 mL an hour. The white cell count is not elevated. Morning blood gases showed a pH of 7.43 with a pCO2 of 36 and pO2 of 95. The patient remains on a combination of ertapenem, IV Diflucan, and oral vancomycin. The liquidy diuretic stool/bowel movements have improved also. The patient has FM I S system in place. The liver function tests are gradually improving. Ocular phosphatase remains somewhat slightly elevated. The vancomycin level last check was on 04/14/2017 it was at 20.3. Is currently off IV vancomycin. Objective - Vital Signs Vital signs: Vital Signs Temp 100.4 F H 04/16/17 06:00 Pulse 124 H 04/16/17 11:22 Resp 24 04/16/17 07:00 BP 103/60 04/16/17 07:00 Pulse Ox 96 04/16/17 07:00 Intake & Output 04/15/17 04/16/17 04/16/17 18:59 06:59 18:59 Intake Total 2203.300 2729.562 699.082 Output Total 1950 2860 525 Balance 253.300 -130.438 174.082 Weight 112 kg 111.2 kg Intake: IV 990 1258 274 0.9 normal saline 20 Dextrose 5% in Water 1, 770 975 150 000 ml @ 75 mls/hr IV . [id number] MANDA Rx#:[id number] Magnesium Sulfate-D5w Pmx 100 1 gm In Dextrose/Water 1 100ml.bag @ 100 mls/hr IVPB Q1H MANDA Rx#: [id number] Pressure Bag 21 36 6 Vasopressin 99 27 18 levETIRAcetam IV 1,000 mg 100 100 100 In Saline 1 100ml.bag @ 400 mls/hr IVPB Q12HR MANDA Rx#:[id number] Intake, IV Titration 349.300 211.562 197.082 Amount Ertapenem 1 gm In Sodium 100 Chloride 0.9% 50 ml @ 100 mls/hr IVPB DAILY MANDA Rx #:[id number] Fluconazole in NaCl,Iso- 100 Osm 400 mg In Saline 1 200ml.bag @ 100 mls/hr IVPB DAILY@1200 MANDA Rx#: [id number] Norepinephrin 16 mg-0.9% 149.300 211.562 97.082 Ns Pmx 16 mg In 250 ml @ Titrate IV .Q0M MANDA Rx#: [id number] Potassium Phosphate 10 100 mmol In Sodium Chloride 0 .9% 100 ml @ 50 mls/hr IV Q2H MANDA Rx#:[id number] Tube Feeding 704 960 128 Other 160 300 100 Output: Urine 1950 2860 525 Other: Voiding Method Indwelling Catheter Indwelling Catheter Indwelling Catheter ABP, PAP, CO, CI - Last Documented Arterial Blood Pressure 101/53 - Exam Physical Exam: Revealed a 51-year-old white male, morbidly obese, on mechanical ventilation,,alert, no distress at present. HEENT: Short obese neck. Neck is supple. No neck masses.No thyromegaly.No JVD. PERRLA, EOMI, moist mucous membranes. Endotracheal tube is intact. Chest: Diminished breath sounds at the bases, especially at the left base. no crackles nor rhonchi no wheezes. The patient has a triple-lumen catheter in the left subclavian vein. He also has an art line in the right upper extremity. Cardiac Exam: Normal S1 and S2, no S3 gallop, no murmur. Abdomen: Obese, Soft, nontender, no megaly, no rebound, no guarding, normal bowel sounds. Extremities: No clubbing, there is bilateral pitting edema and there is also multiple areas of skin ulceration which is superficial in lower extremities bilaterally. The skin is losing and weeping because of increased lower eczematous swelling. There is no cyanosis. Significant muscle atrophy and wasting of muscles noted in lower extremities, patient is paraplegic. Flexion contractures noted bilaterally. Neurological Exam: focal neurologic deficit. paraplegia from the waist down. Cranial nerves are intact. The patient has no facial asymmetry. The patient is awake and responsive and follows commands and answer questions appropriately. Lymphatics: No lymphadenopathy. Psychiatric: Normal mood, affect, and cannot fully assess mental status exam. - Labs CBC & Chem 7: 04/16/17 04:30 04/16/17 04:30 Labs: Abnormal Lab Results - Last 24 Hours (Table) 04/15/17 04/15/17 04/16/17 Range/Units 18:40 23:44 04:30 RBC 3.15 L (4.30-5.90) m/uL Hgb 8.8 L (13.0-17.5) gm/dL Hct 29.9 L (39.0-53.0) % MCHC 29.4 L (31.0-37.0) g/dL RDW 18.7 H (11.5-15.5) % Plt Count 87 L (150-450) k/uL ABG O2 Saturation (94-97) % Sodium (137-145) mmol/L Chloride (98-107) mmol/L Glucose (74-99) mg/dL POC Glucose (mg/dL) 134 H 164 H (75-99) mg/dL Calcium (8.4-10.2) mg/dL Phosphorus (2.5-4.5) mg/dL AST (17-59) U/L ALT (21-72) U/L Alkaline Phosphatase (38-126) U/L 04/16/17 04/16/17 04/16/17 Range/Units 04:30 04:30 05:06 RBC (4.30-5.90) m/uL Hgb (13.0-17.5) gm/dL Hct (39.0-53.0) % MCHC (31.0-37.0) g/dL RDW (11.5-15.5) % Plt Count (150-450) k/uL ABG O2 Saturation 98.0 H (94-97) % Sodium 148 H (137-145) mmol/L Chloride 115 H (98-107) mmol/L Glucose 144 H (74-99) mg/dL POC Glucose (mg/dL) (75-99) mg/dL Calcium 7.2 L (8.4-10.2) mg/dL Phosphorus 1.8 L (2.5-4.5) mg/dL AST 153 H (17-59) U/L ALT 137 H (21-72) U/L Alkaline Phosphatase 385 H (38-126) U/L 04/16/17 04/16/17 Range/Units 06:00 12:11 RBC (4.30-5.90) m/uL Hgb (13.0-17.5) gm/dL Hct (39.0-53.0) % MCHC (31.0-37.0) g/dL RDW (11.5-15.5) % Plt Count (150-450) k/uL ABG O2 Saturation (94-97) % Sodium (137-145) mmol/L Chloride (98-107) mmol/L Glucose (74-99) mg/dL POC Glucose (mg/dL) 153 H 142 H (75-99) mg/dL Calcium (8.4-10.2) mg/dL Phosphorus (2.5-4.5) mg/dL AST (17-59) U/L ALT (21-72) U/L Alkaline Phosphatase (38-126) U/L Microbiology - Last 24 Hours (Table) 04/15/17 14:50 Catheter Tip Culture - Preliminary Picc Line Assessment and Plan Plan: Impression: 1 acute septic shock secondary to urinary tract infection, acute cystitis secondary to Enterobacter aerogenes and pseudomonas aeruginosa as noted in the urine. His blood cultures are positive for Enterobacter. Blood cultures negative. He remains on meropenem, and the patient is on low-dose levo fed for blood pressure support Subsequently, the patient continued to be septic and hypotensive and on today's evaluation of 04/15/2017 the patient has confirmed candidiasis/candidemia and his blood cultures positive for Kim parapsilosis. The exact source is not clear although line infection is highly considered especially the patient is a PICC line in the right upper extremity. The PICC line will be removed and the patient will be started with a triple lumen catheter. The tip of the PICC line will be sent for cultures. The patient is on micafungin for now. Meanwhile, the patient is still requiring pressors for hemodynamic support. The patient is currently on a combination of levo fed and vasopressin for blood pressure support. On 04/16/2017, the patient is being treated for systemic candidemia with IV Diflucan. The patient is having low-grade fever and his still pressor dependent. The PICC line has been removed and the tip was sent for culture. A triple lumen catheter was inserted in the left subclavian. Blood pressures improved. He is still having some low-grade fever and I think we should be able to start gradually weaning down the pressors. He remains on IV Invanz regarding a previous Enterobacter infection of the urine and positive septicemia. 2 acute hypoxic respiratory failure secondary to above. Failed extubation requiring reintubation. The plan is for probable tracheostomy on 04/11/2017, however the patient's procedure got canceled due to ongoing hemodynamic changes and decision opted to wait for another 24 hours today's further stable. Meanwhile, the patient was given another spontaneous breathing trial and he failed and based on that no attempts to extubate this patient were done. We are more convinced that he will need a PEG and trach at a later stage. The patient remains hemodynamically unstable and he is not ready to undergo the procedure yet. The procedure has been postponed until his sepsis is under better control. 3 acute metabolic, lactic acidosis secondary to 1, recovered 4 history of paraplegia and neurogenic bladder. 5 acute kidney injury secondary to sepsis and septic shock, recovered 6 history of nephrolithiasis/bilateral. 7 history of multiple surgeries including skin graft for pressure sores, right ureteroscopy with lithotripsy in 2005 and external sphincterotomy 1990 and 1994. 8 hypotension and the patient is still requiring pressors for blood pressure support 9 extensive edema in lower extremities bilaterally along with superficial scale ulcerations and excoriation and sloughing in the lower extremities and coccyx. 10 leukocytosis, improved 11 acute respiratory alkalosis, improving 12 small bilateral pleural effusions. 13 abnormal LFTs with elevation and alkaline phosphatase, and ultrasound the gallbladder shows no evidence of any cholecystitis, and the liver function tests are being monitored . Rule out drug effect. Rule out Merrem affecting the patient has been switched to Invanz. On today's evaluation, LFTs remains somewhat elevated although they're improving compared to last evaluation. 14 hypernatremia, recurrent 15 anemia, stable hemoglobin for now. 16 diarrhea, possibly antibiotic induced. There is no evidence of any C. diff colitis. Plan Continue vent support. Keep the patient on a combination of IV Invanz, IV Diflucan. Consider stopping the oral vancomycin. Wean off pressors. Continue vent support. Tracheostomy and PEG tube sometime next week especially once the patient's hemodynamic condition stabilizes. We'll continue to follow. Critically care evaluation was done and more than 30 minutes. Time with Patient: Greater than 30
[2017-04-16] MEDS: MENTHOL-ZINC OXIDE OINT 113 GM TUBE TOPICAL PRN ×2 (16:17→20:59)
[2017-04-16 17:18] LABS: Glucose,Whole Blood 143 mg/dL (75-99)
[2017-04-16] MEDS: NOREPINEPHRIN 16 MG-0.9%NS PMX 16 MG/250 ML ML IV SCH (18:53)
--- NOTE | 2017-04-16 19:33 | PN ---
PROGRESS NOTE . DATE OF SERVICE: 04/16/17 I am covering for Dr. Owens. This 51-year-old gentleman who was admitted with paraplegia and as well as spinal injury was admitted with UTI with Pseudomonas, Enterobacter, Enterobacter and sepsis. The patient mechanically intubated, patient much more alert. The patient is closely monitored in ICU. Dr. Ferrer and Dr. Oreilly following the patient closely. The patient is still on PEEP. The patient has multiple IV drips. PAST MEDICAL HISTORY: Reviewed. REVIEW OF SYMPTOMS: Review of systems could not be taken, the patient is on mechanical ventilation. CURRENT MEDICATIONS: 1. Tylenol 650 q.6 p.r.n. 2. DuoNeb q.i.d. and p.r.n. 3. Artificial Tears. 4. Dulcolax 10 mg p.r.n. 5. Chlorhexidine p.r.n. 7. Fluconazole 400 mg daily. 8. Dilaudid 0.5 mg p.r.n. 9. Lactated Ringer's. 10.Lactobacillus. 11.Keppra 1000 mg b.i.d. 12.Narcan. 13.Protonix. 14.P.r.n. medications. 15.Vancomycin p.o. Multiple cultures showing Kim at this time. ASSESSMENT: 1. Acute urinary tract infection with severe sepsis, septic shock secondary to Enterobacter aeruginosa, pseudomonas aeruginosa related to Mclaughlin catheter, acute cystitis. 2. Candidemia. 3. Acute hypoxic respiratory failure possibly secondary to sepsis on mechanical ventilation. 4. Acute metabolic lactic acidosis. 5. Kim parapsilosis in the blood. 6. History of paraplegia, neurogenic bladder. 7. Nephrolithiasis history. 8. History of multiple surgeries. 9. Anemia of chronic disease. 10.History of gastroesophageal reflux disease. 11.History of MRSA. 12.History of MDRO. 13.History of cystoscopy. 14.FULL CODE. RECOMMENDATIONS AND DISCUSSION: Recommend to continue current medications, symptomatic treatment. Otherwise at this time, I recommend continue with broad-spectrum IV antibiotics and I would also recommend continue with antifungals. Continue the rest of medications. Mechanical ventilation. Closely follow with Dr. Oreilly and Dr. Ferrer. Guarded prognosis because of multiple complex medical issues. Further recommendations to follow. MMODL / IJN: [id number] / [facility]
[2017-04-17 00:08] LABS: Glucose,Whole Blood 145 mg/dL (75-99)
[2017-04-17] MEDS: ACETAMINOPHEN TAB 325 MG TAB PO PRN (00:26)
[2017-04-17] MEDS: DEXTROSE 5% IN WATER 1,000 ML IV SCH ×3 (00:27→16:18)
[2017-04-17] MEDS: CHERRY FLAVOR 60 ML BOTTLE PO PRN (00:27)
[2017-04-17] MEDS: HEPARIN SODIUM,PORCINE 5,000 UNIT/ML 1 ML VIAL SQ SCH ×3 (00:28→15:23)
[2017-04-17] MEDS: VANCOMYCIN ORAL SOLUTION 250 MG/5 ML BOTTLE NG-TUBE SCH ×4 (00:28→17:41)
[2017-04-17] MEDS: INSULIN ASPART 100 UNIT/ML 1 ML 10 ML VIAL SQ SCH ×4 (00:29→17:53)
[2017-04-17] MEDS: IPRATROPIUM-ALBUTEROL 3 ML NEB INHALATION SCH ×7 (00:43→23:06)
[2017-04-17 05:21] LABS: ABG Base Excess -0.7 mmol/L; ABG HCO3 23 mmol/L (21-25); ABG PCO2 35 mmHg (35-45); ABG PH 7.43 (7.35-7.45); ABG PO2 125 mmHg (83-108); ABG TCO2 24 mmol/L (19-24)
[2017-04-17 05:26] LABS: Glucose,Whole Blood 164 mg/dL (75-99)
[2017-04-17 05:37] LABS: Anisocytosis Slight; Basophils % (A) 1 %; Eosinophils # (A) 0.1 k/uL (0-0.7); Eosinophils % (A) 1 %; HCT 26.4 % (39.0-53.0); HGB 7.8 gm/dL (13.0-17.5); Hypochromasia Marked; Lymphocytes # (A) 1.7 k/uL (1.0-4.8); Lymphocytes % (A) 30 %; MCHC 29.5 g/dL (31.0-37.0); Macrocytosis Slight; Monocytes # (A) 0.2 k/uL (0-1.0); Monocytes % (A) 4 %; Neutrophils # (A) 3.4 k/uL (1.3-7.7); Neutrophils % (A) 61 %; Platelet Count 110 k/uL (150-450); RBC 2.78 m/uL (4.30-5.90); RDW 18.6 % (11.5-15.5); WBC 5.6 k/uL (3.8-10.6)
[2017-04-17 05:50] LABS: ALT 119 U/L (21-72); AST 119 U/L (17-59); Alkaline Phosphatase 354 U/L (38-126); Anion Gap 6 mmol/L; Blood Urea Nitrogen 18 mg/dL (9-20); Carbon Dioxide 26 mmol/L (22-30); Chloride 112 mmol/L (98-107); Glucose 159 mg/dL (74-99); Magnesium 1.6 mg/dL (1.6-2.3); Phosphorus 2.1 mg/dL (2.5-4.5); Potassium 3.7 mmol/L (3.5-5.1); Sodium 144 mmol/L (137-145); Total Bilirubin 1.6 mg/dL (0.2-1.3); Total Protein 4.7 g/dL (6.3-8.2)
[2017-04-17] MEDS ORDERED: POTASSIUM PHOSPHATE 10 MMOL in SODIUM CHLORIDE 0.9% 100 ML IV ONE (06:17)
[2017-04-17] MEDS: MAGNESIUM SULFATE-D5W PMX 1 GM in DEXTROSE/WATER 1 100ML.BAG IVPB SCH ×2 (07:10→08:54)
--- NOTE | 2017-04-17 08:41 | XR ---
EXAMINATION TYPE: XR chest 1V portable DATE OF EXAM: 04/17/2017 COMPARISON: Prior chest x-ray 04/16/2017 HISTORY: Intubated TECHNIQUE: Single frontal view of the chest is obtained. FINDINGS: Endotracheal tube, NG tube are overlying appropriate positions, the side port of the endot jazmine tube is above the level of the gastroesophageal junction. Left subclavian central venous cath eter is present, distal tip is likely over the superior vena cava. The patient is rotated. Apical ple ural thickening again noted on the right. There are overlying cardiac leads. Retrocardiac density obs cures the left hemidiaphragm. No evident pneumothorax. Interstitium and central vascularity are promi nent. IMPRESSION: Findings are similar to prior exam. Side-port of the NG tube is above the level of the g astroesophageal junction. Correlate for volume overload, congestive heart failure, left lower lobe pn eumonia with associated effusion versus atelectasis. Rotated exam, follow-up recommended.
[2017-04-17] MEDS: BISACODYL 10 MG SUPP RECTAL SCH (08:55)
[2017-04-17] MEDS: ERTAPENEM 1 GM in SODIUM CHLORIDE 0.9% 50 ML IVPB SCH (08:55)
[2017-04-17] MEDS: CHLORHEXIDINE GLUCONATE 15 ML CUP MUCOUS MEM SCH ×2 (08:55→21:11)
[2017-04-17] MEDS: SODIUM CHLORIDE 0.9% 99 ML with VASOPRESSIN 20 UNIT IV SCH ×4 (08:55→21:10)
[2017-04-17] MEDS: levETIRAcetam IV 1,000 MG in SALINE 1 100ML.BAG IVPB SCH ×2 (08:56→21:11)
[2017-04-17] MEDS: LACTOBACILLUS ACIDOPH & BULGAR 1 EACH PACKET PO SCH ×4 (08:56→21:11)
[2017-04-17] MEDS: PANTOPRAZOLE 40 MG/10 ML VIAL IV SCH (08:56)
[2017-04-17] MEDS: MIDODRINE 5 MG TAB PO SCH (09:43)
--- NOTE | 2017-04-17 10:09 | P.PN ---
Subjective Progress Note Date: 04/17/17 Principal diagnosis: Acute septic shock secondary to acute urinary tract infection. And acute fungemia This is a 51-year-old white male, paraplegic, this is related to previous hockey accident and cervical spine injury at age 18. 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 Patient had external sphincterotomy in 1990 and 1994, and has been managed with an exdwelling catheter. In the last 2 weeks, the patient has been noticing dark color urine with some odor. On 03/28 patient was noticing some chills, and on the morning of 03/29 he developed gross hematuria but he was able to void. Later on the patient was passing clots, and he was unable to void. He developed significant suprapubic discomfort, and presented to the ER for evaluation. Upon evaluation the patient was noted to have slight leukocytosis, and renal failure with a BUN of [address] of the abdomen and pelvis showed bilateral nonobstructive renal calculi, and bilateral atrophy of the renal parenchyma. His bladder was noted to be distended, and question the possibility of bladder mass. Patient was started on Levaquin for treatment of urinary tract infection, and he was seen by urology on consultation were in the patient had cystoscopy, and he was found to have hemorrhagic cystitis. The procedure was done on 03/31/2017. Yesterday, in p.m., patient developed an episode of unresponsiveness, patient was hypotensive, nursing staff felt he may have had a seizure, hence he was treated with Keppra, patient was unable to protect his airways, and I was notified about the patient at that time. Patient was given fluid boluses for hypotension, started on levo fed, and later on vasopressin was started. Patient was sent for a CT of the brain which came back negative for CVA. And he was later transferred back to the ICU were and we determined that the patient has a clear cut picture of septic shock from his urinary tract infection which turned out to be secondary to Enterobacter species. Patient was already on Levaquin, this was discontinued and he was placed on Zosyn and Merrem. Overnight, the patient remained relatively hypotensive in spite of significant high doses of norepinephrine, and vasopressin was later started. Presently the patient is on 75 mics of norepinephrine, and he is on 0.05 units of vasopressin. Blood pressure is marginal, many fluid boluses were given, and I believe he received over 10 L of fluids. His urine output has been excellent and he seems to have a polyuria picture. Renal functioning seems to be significantly improved in the last 24 hours. Lactic acid remains high this morning at 5.1. All his electrolytes were abnormal including low potassium which was corrected, calcium was also corrected, and his creatinine improved from 2.36 down to 1.50. Urine cultures were noted, but no blood cultures have been noted so far. Today I saw the patient in the ICU, remains on mechanical ventilation, his ventilator settings are tidal volume of 500, assist control rate of 20, FiO2 is down to 50%, and PEEP is at 5. ABG showed a pO2 of 136 pCO2 of 31 pH of 7.23, hence the patient was given more bicarb, and kept on the bicarb drip with 3 A of bicarb in 1 L of D5W running at 1 25 mL per hour. In spite of all of this, the patient is on small dose of propofol, he is arousable, and follows simple instructions. Seems to be very appropriate. Neurology-yanez, the patient was given Keppra, and EEG was ordered, it is not certain whether the patient truly had a seizure or not. Patient was reevaluated today on 04/02/2017, remains on mechanical ventilation, same vent setting, however his FiO2 is decreased down to 45%, tidal volume remains at 500, assist control rate is at 20, and PEEP is at 5. ABG this morning showed a pO2 of 103 pCO2 of 33 pH of 7.40. Hence, down significantly on the sodium bicarb drip, The patient on IV fluids, patient still requiring significant fluid boluses to maintain an adequate mean arterial blood pressure. His urine output has been excellent, he is putting out almost 300 mL per hour. Patient continues to have leukocytosis with WBC count of 36.3 hemoglobin is 11.5. Renal profile is basically almost back to normal. And his acute kidney injury has resolved. Sodium is elevated, at 147, hence I changed his IV fluid 0.45 instead of 0.9. His electrolytes were noted to be abnormal, and these were all being corrected as per protocol. Chest x-ray continues to show retrocardiac consolidation, and small left pleural effusion. I was able to review an old x-ray from 2011, apparently had some chronic scarring in the left lower lobe, and some atelectasis in the left retrocardiac area, but not as pronounced as noted on this present x-ray from this admission. Patient remains on norepinephrine at 75 g, he is also on vasopressin at 0.05 units. Reevaluated today on 04/03/2017, patient remains on mechanical ventilation, same ventilator settings as noted above with FiO2 of 45% tidal volume of 500 assist control rate of 20 and PEEP of 5. ABG showed a pO2 of 79 pCO2 of 32 pH of 7.42 hence the sodium bicarb drip was discontinued. Lactic acid is responding but slowly and today's lactic acid is 3.9. More fluid boluses were given today, continues to have significant urine output, and patient had a positive balance of 2 L in the last 24 hours. Albumin will be given today, his potassium and calcium are being corrected as per protocol. Renal functioning remains normal. However WBC count is up to 42.4, hemoglobin is 10.3, platelets are down to 88,000, hence I have discontinued his Lovenox. One blood culture from the showed Enterobacter, another blood culture showed Enterobacter and nonhemolytic strep. The nonhemolytic strep is probably a contaminant. Patient was on vancomycin, doubt if we need to restart vancomycin at this point , patient is being followed by infectious disease, remains presently on Merrem and Zosyn to cover Enterobacter and Pseudomonas. Blood pressure-yanez, the patient remains on 45 mics of norepinephrine, and 0.05 units of vasopressin. We are in the process of titrating the norepinephrine down since the blood pressure seems to be holding better today than it was in the last couple of days. All meds were reviewed, patient also remains on propofol, relatively small dose to keep him slightly sedated, but the patient is arousable, and follows instructions. Chest x-ray continues to show left lower lobe retrocardiac opacity which is I believe chronic. Nutrition-yanez the patient seems to be tolerating tube feeding well via nasogastric tube. The patient is seen again today 04/04/2017 in follow-up in the intensive care unit. He remains intubated on the mechanical ventilator with settings of assist control mode at a rate of 20, tidal volume 500, FiO2 45%, PEEP of 5. Morning blood gases reveal pO2 of 100, pCO2 30, pH 7.41 with a mixed acid-base abnormality including respiratory alkalosis and metabolic acidosis. The patient 's cultures were positive for Enterobacter aerogenes and pseudomonas aeruginosa in the urine, Enterobacter aerogenes nonhemolytic strep in the blood. He remains on meropenem and vancomycin. He is also on norepinephrine at 25 mcg/m, vasopressin at 0.05 units per minute, propofol at 11 mcg/kg/m, insulin at 7.5 units per hour. He is being nourished with Vital HP at 57 mL per hour which is goal. He has a 0.45 normal saline at 200 mL's per hour. He is alert and oriented and nods his head appropriately. The patient is seen again today 04/05/2017 in follow-up in the intensive care unit. He remains intubated and on mechanical ventilator. Current settings assist-control mode of rate of 20, tidal volume 500, FiO2 40% and a PEEP of 5. Morning arterial blood gases revealed a pO2 of 113 on 45% FiO2, pCO2 35, pH 7.36. He remains alert and oriented following simple commands by nodding his head yes and no appropriately. He remains on norepinephrine at 9 mcg/m, vasopressin at 0.05 units per minute, propofol at 10 mcg/kg/m, hydrocortisone at 12.5 mg per hour, insulin at 0.5 units per hour. He has 0.45 normal saline at 200 MLS per hour. He is being nourished with Vital HP at 57 mL per hour which is goal. He is receiving flushes of 30 mL every 4 hours. He remains on meropenem. Progress note dated 04/06/2017 This is a 51-year-old male with a history of respiratory failure secondary to overwhelming sepsis and septic shock from a urinary tract infection secondary to Enterobacter Jameson reason pseudomonas aeruginosa. Blood cultures were also positive for Enterobacter around kidneys. The patient is doing relatively well. His FiO2 and PEEP levels are low. His blood gases are reasonable. His weaning parameters today were fine and were thinking about extubating the patient. In addition, the patient has a history of hypoxemic respiratory failure severe metabolic derangements including lactic acidemia secondary to sepsis previous history of paraplegia with neurogenic bladder acute kidney injury secondary to septic shock and acute tubular necrosis and a history of kidney stones. The patient has had multiple surgeries for skin grafts of pressure sores as well as previous sphincterotomy and lithotripsy for kidney stones. Again the patient seemed be doing relatively well today. We'll stop his propofol. Local had an empty stomach. We'll give him a CPAP/PSV trial. We 'll check a cuff leak. We will do a rapid shallow breathing index. Everything looks good, trial of extubation. On 04/11/2017 I'm seeing this patient for a follow-up. As mentioned earlier the patient was treated for septic shock and he was aggressively resuscitated with IV fluids and currently is hemodynamically stable. Nevertheless he is in obvious fluid overload with increased edema in lower extremities and upper extremity is bilaterally and today's chest x-ray shows small bilateral pleural effusion which was not present on previous chest x-rays. ET tube is in a good location. As mentioned earlier the patient has failed extubation twice and the plan is to proceed with a tracheostomy tube insertion today. He will also need a PEG tube insertion. Hemodynamically the patient is still borderline hypotensive on 3 mics of levo fed for hemodynamic support. Nevertheless, he is producing more than 200 mL of urine output on an hourly basis. His sodium is elevated at 145 and the patient is receiving D5 water at the rate of 1 75 mL an hour. He is an assist-control mode of ventilation. Currently is on assist control of 22, tidal volume of 450, FiO2 of 40% and a PEEP of 5. His morning blood Showed a pH of 7.56 with a pCO2 of 34 and pO2 of 143. He is afebrile. The blood culture was positive for Enterobacter and the patient is on IV Merrem. Urine cultures positive for Enterobacter and Pseudomonas. As mentioned earlier, the patient is paraplegic. He has leg wounds bilaterally which are more like excoriation and some degree of skin sloughing due to his peripheral edema. He also has some similar findings on his coccyx. His white cell count is up from 42 down to 8.1 and it was essentially related to his sepsis. Clinically, the patient is awake. The patient is following commands and answering simple questions. His been off Diprivan for the past 24 hours. On 04/12/2017 I'm seeing this patient for a follow-up. The patient is awake while being on mechanical ventilator. He remains somewhat hypotensive. Overnight I was contacted the patient's pressor doses have been gradually increased up to 6 mics and the patient also spiked a temperature. Based on that I asked the patient to be recultured including blood and urine. I also asked ID to reevaluate the patient and vancomycin got admitted on an empiric basis. The patient was also started on vasopressin and an attempt to gradually wean off the norepinephrine infusion. Earlier this morning, I noted that the patient started having some diarrhea and there is obvious concern for C. diff colitis. Stool will be sent for C. diff evaluation. I also discussed the case with the thoracic surgeon and Dr. Montes was a bit hesitant to proceed with a PEG and trach specially with his ongoing hemodynamic instability and he opted to wait on the procedure for another 24-48 hours. Meanwhile, I noted that the patient seemed to have a good state of weaning parameters earlier this morning. I give him a spontaneous breathing trial with a pressure support of 5 and a PEEP of 5 and within 10 to any minutes into the trial the patient decompensated and became hypotensive and hypoxic and he went into respiratory distress. Based on that the spot is breathing trial was aborted and the patient was placed back on assist control mode. His hypernatremia is improving and the sodium level is improved. The patient received D5 water addition to free water through the NG. D5 water will be kept on nontender the patient has become progressively more edematous both in upper and lower extremities. He has also skin excoriation around his buttocks and lower extremities bilaterally and local wound care is being applied. Calcium level from this morning was at 6.2 and the patient was given it in part of calcium gluconate 1 g. A drop in hemoglobin was also noted down to 7.7 and this probably is dilutional. The patient is tolerating enteral feeding through his NG tube. The patient is seen again today 04/13/2017 in follow-up in the intensive care unit. He remains awake and alert and following commands. He unfortunately remains on the mechanical ventilator. Current settings are assist-control mode of 18, tidal volume 400, FiO2 40% and a PEEP of 5. Morning blood gases reveal a pO2 of 132, pCO2 31 and a pH of 7.47. Chest x-ray reveals bilateral infiltrates and pleural effusions but no significant interval change. He does continue to spike fevers up to 102.3 earlier this morning. Follow-up blood, urine and sputum cultures have been negative. He remains on meropenem and vancomycin. He still continues with issues with hypotension and is on vasopressin at 0.03 units per minute along with norepinephrine at 5 mcg/m. He is tolerating his tube feedings which are at 65 MLS per hour his goal. His hemoglobin remained stable at 8.5. Sodium 144, chloride 1:15. AST 312, ALT 186 , alk phos 327. An ultrasound of the gallbladder appeared to be within normal limits. There is moderate hepatic steatosis. Right-sided nephrolithiasis without evidence of hydronephrosis. Based on his continued temps and hypotension there no immediate plans for tracheostomy and PEG tube placement checked today. The patient is seen again today 04/14/2017 in follow-up in the intensive care unit. He remains awake and alert and following commands. He is responding appropriately. He remains intubated on the mechanical ventilator with vent settings of assist control mode of 18, tidal volume 400, FiO2 40% and a PEEP of 5. Morning blood gases reveal a P O2 of 118, pCO2 of 32, pH 7.46. White count 2.2. Hemoglobin 8.3. Creatinine 0.80. His temperature today was 100.7. He is slightly tachycardic. Follow-up urine culture is positive for Kim. He was initiated on micafungin. Sputum cultures reveal no growth to date. Catheter tip reveals no growth. Blood cultures reveal no growth. There is a nondraining wound at the base of his penis. The wounds on his lower extremities are dry. There is also a fluid collection in the right upper extremity via Doppler yesterday. He remains on ertapenem and vancomycin. He also remains on vasopressin at 0.03 units per minute, norepinephrine at 9 mcg/ m. Propofol remains off. On 04/15/2017 I'm seeing this patient for a follow-up. The ongoing active issue for now is his fever and hypotension. The patient was worked up extensively for the fever and ultimately the blood culture came back positive for Kim parapsilosis. Note that his urine culture was also positive for Kim. I had ordered to start the patient on micafungin and his been on the antifungal treatment for the past 24 hours. The exact source of the Kim is not clear although it could be the PICC line is present in the right upper extremity. In any rate this is a double-lumen PICC line and one of the ports is now functioning it's leaking at least 2, out and the tip will be sent also for cultures. The patient this morning is on 50 mics of norepinephrine infusion. The patient is also on physiologic dose vasopressin. He is having fever with a T-max of 101.3. At the same time, he is awake and alert. He is following commands. On the mechanical ventilation and no changes on his vent settings have been down. His is on assist-control mode of ventilation at the rate of 18, tidal volume 400, FiO2 of 40% and a PEEP of 5. Chest x-ray from yesterday showed no evidence of any pneumonia. The patient is small bilateral pleural effusion which remains essentially unchanged. ET tube remains in a good location. No significant secretions through the orotracheal tube. As far as his hemodynamics, the patient as mentioned is hypotensive on norepinephrine infusion however he is producing adequate amount of urine output. The patient has a normal renal function with a creatinine of 0.8. The skin examination shows multiple wounds in the lower extremities bilaterally at described earlier in my dictation. Appropriate dressings have been applied to his lower extremities bilaterally and his coccygeal area. He is tolerating tube feeds. His sodium level is again on the rise and the sodium level today is up to 149. There is a component of hyperchloremic hypernatremia. He is also having liquidy diet intake bowel movements in the order of 200-300 mL every 8 hours. We'll for C. diff evaluation has been negative. The patient is on enteral feeding and he is receiving vital high protein at the rate of 64 mL an hour. He is also receiving free water flushes 30 mL every 4 hours. Terms of antibiotic coverage, the patient is currently on micafungin. The patient is also on a combination of Invanz and IV vancomycin was discontinued by infectious disease and the patient was switched oral vancomycin in consideration for C. diff colitis despite the fact that the stool evaluation was negative for C. diff. The latest vancomycin level from yesterday was 20.3. On 04/16/2017 I'm seeing this patient for a follow-up. As mentioned earlier, the patient remains intubated on a mechanical ventilator with failure to wean. He is awake and alert and his communicating. He was found to have candidal sepsis and the patient was a she started on micafungin and following that he was switched to high-dose Diflucan. The PICC line in the right approximately was removed and a triple lumen cath in the left subclavian vein was inserted yesterday. He also has an art line. This morning he is on 15 mics of norepinephrine infusion. He is however having only low-grade fever. He is more stable compared to yesterday more awake and alert and more interactive. His blood pressure is improved and I think this would be a good time to start weaning his norepinephrine infusion. He is tolerating his tube feeds. He remains on a mechanical ventilator. No changes on the vent setting was done. Chest x-ray shows small better pleural effusion. It tube is in a good location. No evidence of any pneumothorax. There is a subclavian vein triple- lumen catheter in place. The patient's sodium level is gradually improving. The patient is on D5 water at the rate of 75 mL an hour. The white cell count is not elevated. Morning blood gases showed a pH of 7.43 with a pCO2 of 36 and pO2 of 95. The patient remains on a combination of ertapenem, IV Diflucan, and oral vancomycin. The liquidy diuretic stool/bowel movements have improved also. The patient has FM I S system in place. The liver function tests are gradually improving. Ocular phosphatase remains somewhat slightly elevated. The vancomycin level last check was on 04/14/2017 it was at 20.3. Is currently off IV vancomycin. On 04/17/2017, patient remains on mechanical ventilation, he is a failure to wean , awaiting eventually tracheostomy and PEG tube placement, however the patient has to demonstrate some hemodynamic stability before that could be done. Remains on about 8 g of norepinephrine, remains on 0.03 units of vasopressin, still receiving fluid boluses intermittently for low blood pressure. Today I restarted hydrocortisone again. Patient was started on micafungin by infectious disease because of his positive Kim in the blood cultures. Patient is tolerating tube feeds, remains on mechanical ventilation with the same vent settings, chest x-ray continues to show some left lower lobe atelectasis and possibly a small pleural effusion, left subclavian catheter is in place, labs were all reviewed. WBC count is 5.6 hemoglobin is 7.8 basic metabolic profile is normal ABG showed a pO2 of 125 pCO2 of 35 pH of 7.43. Liver profile was noted to be a bit elevated including elevated alkaline phosphatase. Albumin is 2.0. Objective - Vital Signs Vital signs: Vital Signs Temp 98.4 F 04/17/17 08:00 Pulse 103 H 04/17/17 09:00 Resp 30 H 04/17/17 09:00 BP 99/63 04/17/17 09:00 Pulse Ox 95 04/17/17 09:00 Intake & Output 04/16/17 04/17/17 04/17/17 18:59 06:59 18:59 Intake Total 2297.138 2272 391 Output Total 2670 1800 625 Balance -372.862 472 -234 Weight 112.4 kg Intake: IV 1057 1144 263 0.9 normal saline 20 Dextrose 5% in Water 1, 825 900 225 000 ml @ 75 mls/hr IV . [id number] MANDA Rx#:[id number] Pressure Bag 33 36 9 Vasopressin 99 108 9 levETIRAcetam IV 1,000 mg 100 100 In Saline 1 100ml.bag @ 400 mls/hr IVPB Q12HR MANDA Rx#:[id number] Intake, IV Titration 236.138 Amount Norepinephrin 16 mg-0.9% 136.138 Ns Pmx 16 mg In 250 ml @ Titrate IV .Q0M MANDA Rx#: [id number] Potassium Phosphate 10 100 mmol In Sodium Chloride 0 .9% 100 ml @ 50 mls/hr IV Q2H MANDA Rx#:[id number] Oral 60 Tube Feeding 704 768 128 Other 300 300 Output: Urine 2670 1800 625 Other: Voiding Method Indwelling Catheter Indwelling Catheter ABP, PAP, CO, CI - Last Documented Arterial Blood Pressure 118/62 - Exam Physical Exam: Revealed a 51-year-old white male, morbidly obese, on mechanical ventilation, sedated, in no distress at present. HEENT:[ Short obese neck. Neck is supple.] [No neck masses.] [No thyromegaly.] [No JVD.] PERRLA, EOMI, moist mucous membranes. Endotracheal tube is intact. Chest: [Diminished breath sounds at the bases, especially at the left base. no crackles nor rhonchi no wheezes.] Cardiac Exam: [Normal S1 and S2, no S3 gallop, no murmur.] Abdomen: [Obese, Soft, nontender, no megaly, no rebound, no guarding, normal bowel sounds.] Extremities: [No clubbing, no edema, no cyanosis. Significant muscle atrophy and wasting of muscles noted in lower extremities, patient is paraplegic.] Flexion contractures noted bilaterally. Neurological Exam: [No focal neurologic deficit. Except for paraplegia from the waist down. Lymphatics: No lymphadenopathy. Psychiatric: Normal mood, affect, and cannot fully assess mental status exam.] - Labs CBC & Chem 7: 04/17/17 05:20 04/17/17 05:20 Labs: Abnormal Lab Results - Last 24 Hours (Table) 04/16/17 04/16/17 04/16/17 Range/Units 04:30 12:11 17:16 RBC (4.30-5.90) m/uL Hgb (13.0-17.5) gm/dL Hct (39.0-53.0) % MCHC (31.0-37.0) g/dL RDW (11.5-15.5) % Plt Count (150-450) k/uL ABG pO2 (83-108) mmHg ABG O2 Saturation (94-97) % Chloride (98-107) mmol/L Glucose (74-99) mg/dL POC Glucose (mg/dL) 142 H 143 H (75-99) mg/dL Calcium (8.4-10.2) mg/dL Phosphorus (2.5-4.5) mg/dL Total Bilirubin (0.2-1.3) mg/dL AST 153 H (17-59) U/L ALT 137 H (21-72) U/L Alkaline Phosphatase 385 H (38-126) U/L Total Protein (6.3-8.2) g/dL Albumin (3.5-5.0) g/dL 04/17/17 04/17/17 04/17/17 Range/Units 00:06 05:11 05:20 RBC (4.30-5.90) m/uL Hgb (13.0-17.5) gm/dL Hct (39.0-53.0) % MCHC (31.0-37.0) g/dL RDW (11.5-15.5) % Plt Count (150-450) k/uL ABG pO2 125 H (83-108) mmHg ABG O2 Saturation 99.0 H (94-97) % Chloride 112 H (98-107) mmol/L Glucose 159 H (74-99) mg/dL POC Glucose (mg/dL) 145 H (75-99) mg/dL Calcium 7.0 L (8.4-10.2) mg/dL Phosphorus 2.1 L (2.5-4.5) mg/dL Total Bilirubin 1.6 H (0.2-1.3) mg/dL AST 119 H (17-59) U/L ALT 119 H (21-72) U/L Alkaline Phosphatase 354 H (38-126) U/L Total Protein 4.7 L (6.3-8.2) g/dL Albumin 2.0 L (3.5-5.0) g/dL 04/17/17 04/17/17 Range/Units 05:20 05:22 RBC 2.78 L (4.30-5.90) m/uL Hgb 7.8 L (13.0-17.5) gm/dL Hct 26.4 L (39.0-53.0) % MCHC 29.5 L (31.0-37.0) g/dL RDW 18.6 H (11.5-15.5) % Plt Count 110 L (150-450) k/uL ABG pO2 (83-108) mmHg ABG O2 Saturation (94-97) % Chloride (98-107) mmol/L Glucose (74-99) mg/dL POC Glucose (mg/dL) 164 H (75-99) mg/dL Calcium (8.4-10.2) mg/dL Phosphorus (2.5-4.5) mg/dL Total Bilirubin (0.2-1.3) mg/dL AST (17-59) U/L ALT (21-72) U/L Alkaline Phosphatase (38-126) U/L Total Protein (6.3-8.2) g/dL Albumin (3.5-5.0) g/dL Assessment and Plan Assessment: 1 acute septic shock secondary to urinary tract infection, acute cystitis secondary to Enterobacter aerogenes and pseudomonas aeruginosa as noted in the urine. His blood cultures are positive for Enterobacter. Blood cultures negative. He remains on meropenem, and the patient is on low-dose levo fed for blood pressure support Subsequently, the patient continued to be septic and hypotensive and on today's evaluation of 04/15/2017 the patient has confirmed candidiasis/candidemia and his blood cultures positive for Kim parapsilosis. The exact source is not clear although line infection is highly considered especially the patient is a PICC line in the right upper extremity. The PICC line will be removed and the patient will be started with a triple lumen catheter. The tip of the PICC line will be sent for cultures. The patient is on micafungin for now. Meanwhile, the patient is still requiring pressors for hemodynamic support. The patient is currently on a combination of levo fed and vasopressin for blood pressure support. On 04/16/2017, the patient is being treated for systemic candidemia with IV Diflucan. The patient is having low-grade fever and his still pressor dependent. The PICC line has been removed and the tip was sent for culture. A triple lumen catheter was inserted in the left subclavian. Blood pressures improved. He is still having some low-grade fever and I think we should be able to start gradually weaning down the pressors. He remains on IV Invanz regarding a previous Enterobacter infection of the urine and positive septicemia. On 04/17/2017, patient remains on antibiotics, and antifungal therapy, still hemodynamically unstable for trach and PEG placement. Still unable to wean, remains on mechanical ventilation, and I have restarted back on hydrocortisone. Patient is still requiring significant amount of vasopressin and norepinephrine. 2 acute hypoxic respiratory failure secondary to above. Failed extubation requiring reintubation. The plan is for probable tracheostomy on 04/11/2017, however the patient's procedure got canceled due to ongoing hemodynamic changes and decision opted to wait for another 24 hours today's further stable. Meanwhile, the patient was given another spontaneous breathing trial and he failed and based on that no attempts to extubate this patient were done. We are more convinced that he will need a PEG and trach at a later stage. The patient remains hemodynamically unstable and he is not ready to undergo the procedure yet. The procedure has been postponed until his sepsis is under better control. 3 acute metabolic, lactic acidosis secondary to 1, recovered 4 history of paraplegia and neurogenic bladder. 5 acute kidney injury secondary to sepsis and septic shock, recovered 6 history of nephrolithiasis/bilateral. 7 history of multiple surgeries including skin graft for pressure sores, right ureteroscopy with lithotripsy in 2005 and external sphincterotomy 1990 and 1994. 8 hypotension and the patient is still requiring pressors for blood pressure support 9 extensive edema in lower extremities bilaterally along with superficial scale ulcerations and excoriation and sloughing in the lower extremities and coccyx. 10 leukocytosis, improved 11 acute respiratory alkalosis, improving 12 small bilateral pleural effusions. 13 abnormal LFTs with elevation and alkaline phosphatase, and ultrasound the gallbladder shows no evidence of any cholecystitis, and the liver function tests are being monitored . Rule out drug effect. Rule out Merrem affecting the patient has been switched to Invanz. On today's evaluation, LFTs remains somewhat elevated although they're improving compared to last evaluation. 14 hypernatremia, recurrent 15 anemia, stable hemoglobin for now. 16 diarrhea, possibly antibiotic induced. There is no evidence of any C. diff colitis. Recommendation: Continue ventilatory support, hemodynamic support, antibiotics and antifungal therapy, patient remains on Invanz, fluconazole, restarted Solu- Cortef, more fluid boluses will be given and the patient remains critically ill. Critical care time is 40 minutes. Time with Patient: Greater than 30
[2017-04-17] MEDS: HYDROCORTISONE SUCCINATE 100 MG/2 ML VIAL IV SCH ×2 (10:35→15:24)
--- NOTE | 2017-04-17 11:10 | PN ---
PROGRESS NOTE DATE OF SERVICE: 04/16/17 REASON FOR FOLLOWUP: 1. Enterobacter UTI and bacteremia. 2. Kim parapsilosis PICC line infection. INTERVAL HISTORY: The patient overall fever pattern has improved. The patient's symptoms seem to be getting more stable. The patient remains to be awake, alert, on the vent and did follow some simple commands. FiO2 is stable. Overall output in his fecal management system has decreased. EXAMINATION: Blood pressure is 124/58 with a pulse of 117, temperature of 98. He is 96% on 40% FiO2. General description is a middle-aged male lying in bed in no distress. Respiratory system: Unlabored breathing. Clear to auscultation anteriorly. Heart S1, S2. Tachycardia. ABDOMEN: Soft. No tenderness. No guarding and no rigidity. LABS: Hemoglobin 8.8, white count 5.2 with a BUN of 19, creatinine 0.90. DIAGNOSTIC IMPRESSION AND PLAN: 1. Patient with Kim parapsilosis positive blood culture, more likely to get a PICC line that has been discontinued. Currently on Diflucan 400 daily that will continue. Repeat blood cultures ordered to document clearance of his fungemia. no vision changes and no abdominal pain , US liver no definite mass 2. Patient with enterobacter urinary tract infection, currently on ertapenem 1 g daily. Family was present at bedside. Their questions were answered. MMODL / IJN: [id number] / [email or web address]
[2017-04-17] MEDS: FLUCONAZOLE IN NACL,ISO-OSM 400 MG in SALINE 1 200ML.BAG IVPB SCH (12:43)
[2017-04-17] MEDS: LACTATED RINGERS 1,000 ML IV SCH (12:44)
[2017-04-17 12:58] LABS: Glucose,Whole Blood 154 mg/dL (75-99)
[2017-04-17] MEDS ORDERED: PROPOFOL 1,000 MG in EMPTY BAG 1 BAG IV SCH (15:30)
[2017-04-17 17:54] LABS: Glucose,Whole Blood 195 mg/dL (75-99)
[2017-04-18 00:46] LABS: Glucose,Whole Blood 172 mg/dL (75-99)
[2017-04-18] MEDS: INSULIN ASPART 100 UNIT/ML 1 ML 10 ML VIAL SQ SCH ×5 (01:23→23:16)
[2017-04-18] MEDS: CHERRY FLAVOR 60 ML BOTTLE PO PRN ×2 (01:23→06:09)
[2017-04-18] MEDS: HYDROCORTISONE SUCCINATE 100 MG/2 ML VIAL IV SCH ×3 (01:24→15:18)
[2017-04-18] MEDS: HEPARIN SODIUM,PORCINE 5,000 UNIT/ML 1 ML VIAL SQ SCH ×3 (01:24→15:18)
[2017-04-18] MEDS: IPRATROPIUM-ALBUTEROL 3 ML NEB INHALATION SCH ×6 (03:21→23:18)
--- NOTE | 2017-04-18 05:13 | PN ---
PROGRESS NOTE DATE OF SERVICE: 04/17/2017 REASON FOR FOLLOW UP: 1. Enterobacter urinary tract infection and bacteremia. 2. Patient with Kim parapsilosis PICC line infection. INTERVAL HISTORY: The patient is afebrile. He has been hemodynamically more stable. He remains to be awake, alert. Affect has been stable, tolerating his tube feeds PHYSICAL EXAMINATION: On examination, blood pressure is 139/70 with a pulse of 96, temperature of 98. He is 98% on 40% FiO2. General description is a middle-aged male lying in bed in no distress. RESPIRATORY SYSTEM: Unlabored breathing, clear to auscultation anteriorly. HEART: S1, S2. Regular rate and rhythm. ABDOMEN: Soft, no tenderness. LABS: Hemoglobin 7.8, white count 5.6. BUN of 18, creatinine 0.70. DIAGNOSTIC IMPRESSION AND PLAN: 1. Patient with Enterobacter urinary tract infection and bacteremia, currently on Invanz. 2. Kim parapsilosis positive blood culture, likely PICC line related that improved with removal of the PICC and the IV Diflucan that will be continued. White count has normalized. Fevers resolved. Will continue to monitor closely. Continue supportive care. MMODL / IJN: [id number] / LUKASZ
[2017-04-18 05:34] LABS: Anisocytosis Slight; Basophils % (A) 0 %; Eosinophils % (A) 0 %; Hypochromasia Marked; Lymphocytes # (A) 0.8 k/uL (1.0-4.8); Lymphocytes % (A) 19 %; MCH 28.4 pg (25.0-35.0); MCHC 30.5 g/dL (31.0-37.0); MCV 92.9 fL (80.0-100.0); Mean Platelet Volume 9.6; Monocytes # (A) 0.1 k/uL (0-1.0); Monocytes % (A) 3 %; Neutrophils % (A) 75 %; Platelet Count 108 k/uL (150-450); RBC 2.26 m/uL (4.30-5.90); RDW 18.1 % (11.5-15.5)
[2017-04-18 05:44] LABS: HGB 6.4 gm/dL (13.0-17.5)
[2017-04-18 05:52] LABS: ALT 118 U/L (21-72); AST 95 U/L (17-59); Alkaline Phosphatase 322 U/L (38-126); Anion Gap 6 mmol/L; Blood Urea Nitrogen 17 mg/dL (9-20); Calcium 6.8 mg/dL (8.4-10.2); Carbon Dioxide 26 mmol/L (22-30); Chloride 109 mmol/L (98-107); Glucose 192 mg/dL (74-99); Magnesium 1.8 mg/dL (1.6-2.3); Phosphorus 2.7 mg/dL (2.5-4.5); Potassium 3.3 mmol/L (3.5-5.1); Sodium 141 mmol/L (137-145); Total Protein 4.8 g/dL (6.3-8.2)
[2017-04-18] MEDS: SODIUM CHLORIDE 0.9% 99 ML with VASOPRESSIN 20 UNIT IV SCH ×2 (06:09)
[2017-04-18] MEDS: DEXTROSE 5% IN WATER 1,000 ML IV SCH ×2 (06:09→19:04)
[2017-04-18 06:12] LABS: Glucose,Whole Blood 193 mg/dL (75-99)
[2017-04-18 06:17] LABS: Anisocytosis Slight; HCT 20.6 % (39.0-53.0); Hypochromasia Marked; MCH 27.8 pg (25.0-35.0); MCHC 29.9 g/dL (31.0-37.0); Platelet Count 111 k/uL (150-450); RBC 2.21 m/uL (4.30-5.90); RDW 17.8 % (11.5-15.5); WBC 3.8 k/uL (3.8-10.6)
[2017-04-18] MEDS: VANCOMYCIN ORAL SOLUTION 250 MG/5 ML BOTTLE NG-TUBE SCH ×4 (06:27→18:35)
[2017-04-18 06:35] LABS: HGB 6.2 gm/dL (13.0-17.5)
--- NOTE | 2017-04-18 08:38 | P.PN ---
Subjective Progress Note Date: 04/18/17 Principal diagnosis: Continuing care. This is a continue proximal on a 51-year-old white male essentially admitted for hematuria. He is developed sepsis with ensuing septic shock and needed significant ventilation. There is been a long course that he's been continually ventilated and unable to receive tracheostomy secondary to cardiac instability. He currently has been increased on his FiO2 to 50% at this time. Pressure seems to be stable. The patient is resting comfortably this morning. Objective - Vital Signs Vital signs: Vital Signs Temp 98.6 F 04/18/17 04:00 Pulse 98 04/18/17 08:02 Resp 25 H 04/18/17 08:00 BP 91/47 04/18/17 08:00 Pulse Ox 96 04/18/17 08:00 Intake & Output 04/17/17 04/18/17 04/18/17 18:59 06:59 18:59 Intake Total 2581.781 1124.002 Output Total 3035 2475 125 Balance -453.219 -1350.998 -125 Weight 113.8 kg Intake: IV 1093 24 0.9 normal saline 70 Dextrose 5% in Water 1, 975 000 ml @ 75 mls/hr IV . [id number] MANDA Rx#:[id number] Pressure Bag 39 24 Vasopressin 9 Intake, IV Titration 200.781 8.002 Amount Norepinephrin 16 mg-0.9% 200.781 8.002 Ns Pmx 16 mg In 250 ml @ Titrate IV .Q0M MANDA Rx#: [id number] Tube Feeding 1088 832 Other 200 260 Output: Urine 3035 2475 125 Other: Voiding Method Indwelling Catheter Indwelling Catheter ABP, PAP, CO, CI - Last Documented Arterial Blood Pressure 98/42 - Constitutional General appearance: Present: average body habitus - EENT Eyes: Present: abnormal pupil - Respiratory Respiratory: bilateral: CTA - Cardiovascular Rhythm: regular Heart sounds: normal: S1, S2 - Gastrointestinal General gastrointestinal: Present: soft. Absent: tenderness - Integumentary Integumentary: Present: normal. Absent: rash - Psychiatric Psychiatric: Present: A&O x's 3, appropriate affect - Labs CBC & Chem 7: 04/18/17 05:55 04/18/17 05:25 Labs: Abnormal Lab Results - Last 24 Hours (Table) 0104/17/17 04/18/17 Range/Units 12:56 17:51 00:44 RBC (4.30-5.90) m/uL Hgb (13.0-17.5) gm/dL Hct (39.0-53.0) % MCHC (31.0-37.0) g/dL RDW (11.5-15.5) % Plt Count (150-450) k/uL Lymphocytes # (1.0-4.8) k/uL Potassium (3.5-5.1) mmol/L Chloride (98-107) mmol/L Glucose (74-99) mg/dL POC Glucose (mg/dL) 154 H 195 H 172 H (75-99) mg/dL Calcium (8.4-10.2) mg/dL AST (17-59) U/L ALT (21-72) U/L Alkaline Phosphatase (38-126) U/L Total Protein (6.3-8.2) g/dL Albumin (3.5-5.0) g/dL 04/18/17 04/18/17 04/18/17 Range/Units 05:25 05:25 05:55 RBC 2.26 L 2.21 L (4.30-5.90) m/uL Hgb 6.4 L* 6.2 L* (13.0-17.5) gm/dL Hct 21.0 L 20.6 L (39.0-53.0) % MCHC 30.5 L 29.9 L (31.0-37.0) g/dL RDW 18.1 H 17.8 H (11.5-15.5) % Plt Count 108 L 111 L (150-450) k/uL Lymphocytes # 0.8 L (1.0-4.8) k/uL Potassium 3.3 L (3.5-5.1) mmol/L Chloride 109 H (98-107) mmol/L Glucose 192 H (74-99) mg/dL POC Glucose (mg/dL) (75-99) mg/dL Calcium 6.8 L (8.4-10.2) mg/dL AST 95 H (17-59) U/L ALT 118 H (21-72) U/L Alkaline Phosphatase 322 H (38-126) U/L Total Protein 4.8 L (6.3-8.2) g/dL Albumin 2.0 L (3.5-5.0) g/dL 04/18/17 Range/Units 06:10 RBC (4.30-5.90) m/uL Hgb (13.0-17.5) gm/dL Hct (39.0-53.0) % MCHC (31.0-37.0) g/dL RDW (11.5-15.5) % Plt Count (150-450) k/uL Lymphocytes # (1.0-4.8) k/uL Potassium (3.5-5.1) mmol/L Chloride (98-107) mmol/L Glucose (74-99) mg/dL POC Glucose (mg/dL) 193 H (75-99) mg/dL Calcium (8.4-10.2) mg/dL AST (17-59) U/L ALT (21-72) U/L Alkaline Phosphatase (38-126) U/L Total Protein (6.3-8.2) g/dL Albumin (3.5-5.0) g/dL Microbiology - Last 24 Hours (Table) 04/15/17 14:50 Catheter Tip Culture - Final Picc Line Assessment and Plan (1) Paraplegia following spinal cord injury Current Visit: Yes Status: Acute Code(s): G82.20 - PARAPLEGIA, UNSPECIFIED SNOMED Code(s): 08630227 (2) Gross hematuria Current Visit: Yes Status: Resolved Code(s): R31.0 - GROSS HEMATURIA SNOMED Code(s): 150922673 (3) Uremia Current Visit: Yes Status: Acute Code(s): N19 - UNSPECIFIED KIDNEY FAILURE SNOMED Code(s): 71739916 (4) Seizure Current Visit: Yes Status: Acute Code(s): R56.9 - UNSPECIFIED CONVULSIONS SNOMED Code(s): 17578743 (5) Toxic metabolic encephalopathy Current Visit: Yes Status: Resolved Code(s): G92 - TOXIC ENCEPHALOPATHY SNOMED Code(s): 527703765 (6) Septic shock Current Visit: Yes Status: Acute Code(s): A41.9 - SEPSIS, UNSPECIFIED ORGANISM; R65.21 - SEVERE SEPSIS WITH SEPTIC SHOCK SNOMED Code(s): 04454397 Plan: Continue ventilatory support. Significant sepsis with Pseudomonas and Enterobacter. Check CBC with CMP in a.m. Continue to follow with consultants. Critically ill at this time.
[2017-04-18] MEDS: CHLORHEXIDINE GLUCONATE 15 ML CUP MUCOUS MEM SCH ×2 (08:39→21:01)
[2017-04-18] MEDS: ERTAPENEM 1 GM in SODIUM CHLORIDE 0.9% 50 ML IVPB SCH (08:39)
[2017-04-18] MEDS: levETIRAcetam IV 1,000 MG in SALINE 1 100ML.BAG IVPB SCH ×2 (08:39→21:03)
[2017-04-18] MEDS: PANTOPRAZOLE 40 MG/10 ML VIAL IV SCH (08:40)
[2017-04-18] MEDS: LACTOBACILLUS ACIDOPH & BULGAR 1 EACH PACKET PO SCH ×4 (08:40→21:01)
--- NOTE | 2017-04-18 08:46 | XR ---
EXAMINATION TYPE: XR chest 1V portable DATE OF EXAM: 04/18/2017 COMPARISON: Prior chest 04/17/2017 HISTORY: Intubated TECHNIQUE: Single frontal view of the chest is obtained. FINDINGS: Endotracheal tube and NG tube are stable, side-port of the NG tube is above the level of t he gastroesophageal junction. Left subclavian central venous catheter is unchanged. Retrocardiac dens ity, basilar density also on the right. No evident pneumothorax. Apical cap on the right again noted. There may be spinal curvature. IMPRESSION: Findings are similar. NG tube with side-port above the level of the gastroesophageal syed ction. Correlate for possible pneumonia, effusion. Consider edema versus atelectasis.
[2017-04-18] MEDS: MAGNESIUM SULFATE-D5W PMX 1 GM in DEXTROSE/WATER 1 100ML.BAG IVPB SCH ×2 (08:59→11:13)
[2017-04-18] MEDS: POTASSIUM CHLORIDE ORAL LIQUID 40 MEQ/30 ML CUP NG-TUBE SCH ×2 (08:59→11:13)
[2017-04-18 09:48] LABS: ABG PH 7.36 (7.35-7.45)
[2017-04-18 09:49] LABS: ABG Base Excess -0.8 mmol/L; ABG HCO3 24 mmol/L (21-25); ABG Oxygen Saturation 98.3 % (94-97); ABG PCO2 44 mmHg (35-45); ABG PO2 116 mmHg (83-108); ABG TCO2 25 mmol/L (19-24)
--- NOTE | 2017-04-18 10:44 | PN ---
PROGRESS NOTE I am covering for Dr. Dr. Owens. DATE OF SERVICE: 04/17/2017 This 51-year-old gentleman who was admitted with UTI with Pseudomonas, Enterobacter, multiple organisms, also with features of sepsis. The patient is on acute hypoxic respiratory failure, also. The patient is being closely followed with Infectious Disease as well as Pulmonary, also. The patient on mechanical ventilation with the support PEEP at this time. The patient also had a Kim parapsilosis infection. Patient is on antifungals, also. Dr. Guadalupe is following the patient closely. The patient much more alert on the mechanical ventilation at this time. The patient had failure to wean and Dr. Guadalupe is planning tracheostomy and PEG tube placement. The patient is still on pressor support at this time. The patient is tolerating tube feeds. Awaiting hemodynamic stability before the PEG tube and tracheostomy. PAST MEDICAL HISTORY: Reviewed. REVIEW OF SYSTEMS: Could not be taken, as the patient is mechanically ventilated. CURRENT MEDICATIONS: Reviewed, include: 1. Tylenol 650 every 6 hours p.r.n. 2. DuoNeb q.i.d. and p.r.n. 3. Dulcolax 10 mg daily. 4. Peridex. 5. 1 g IV daily. 6. Solu-Cortef 100 mg IV q.8h. 7. Dilaudid. 8. NovoLog. 9. Lactated Ringer's. 10.Lactinex. 11.Replacement protocols p.r.n. 12.Levophed drip. 13.Protonix. PHYSICAL EXAM: Patient is mechanically ventilated, sedated, alert. Pulse 91, blood pressure 97 /54, respirations 20, temperature is normal, pulse ox 97% on mechanical ventilation, 50% FiO2. Vent settings are noted. HEENT: Conjunctivae normal. Oral mucosa moist. NECK: No jugular venous distention. No carotid bruits. No lymph node enlargement. CARDIOVASCULAR: S1, S2 muffled. RESPIRATORY: Breath sounds diminished in the bases. A few scattered rhonchi. No crackles. ABDOMEN: Soft. No tenderness. LEGS: No edema. NERVOUS SYSTEM: Patient is mechanically sedated. LABS: At this time show WBC 5.6, hemoglobin is 7.8. Otherwise, sodium 140, potassium 3.7. Other labs are total bilirubin 1.68, AST is 190, ALT is 119 and alk phos is 354. ASSESSMENT: 1. Acute urinary tract infection with severe sepsis and septic shock secondary to Enterobacter aerogenes, Pseudomonas related to Mclaughlin catheter acute cystitis. 2. Candidemia. 3. Acute hypoxic respiratory failure, possibly secondary to sepsis on mechanical ventilation with failure to wean. 4. Continued hypotension on pressor support. 5. Acute metabolic lactic acidosis. 6. Kim parapsilosis in the blood. 7. History of paraplegia and neurogenic bladder. 8. Nephrolithiasis history. 9. History of multiple surgeries. 10.History of anemia, anemia of chronic disease. 11.History of gastroesophageal reflux disease. 12.History of methicillin-resistant Staphylococcus aureus. 13.History multidrug-resistant organisms. 14.History of cystoscopy. 15.FULL CODE. RECOMMENDATIONS AND DISCUSSION: Recommend to continue current medical management and symptomatic treatment. As mentioned earlier, we will continue with broad-spectrum IV antibiotics, antifungals, monitor closely, continue with the mechanical ventilation. Otherwise, continue with the pressor support. Hydrocortisone has been added. Once the pressure is stabilized, the patient will be candidate for tracheostomy and PEG tube and further weaning attempts. Prognosis guarded because of multiple complex medical issues. Further recommendations to follow. MMODL / IJN: [id number] / MTDD
--- NOTE | 2017-04-18 10:53 | P.PN ---
Subjective Progress Note Date: 04/18/17 Principal diagnosis: Acute septic shock secondary to acute urinary tract infection. And acute fungemia This is a 51-year-old white male, paraplegic, this is related to previous hockey accident and cervical spine injury at age 18. 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 Patient had external sphincterotomy in 1990 and 1994, and has been managed with an exdwelling catheter. In the last 2 weeks, the patient has been noticing dark color urine with some odor. On 03/28 patient was noticing some chills, and on the morning of 03/29 he developed gross hematuria but he was able to void. Later on the patient was passing clots, and he was unable to void. He developed significant suprapubic discomfort, and presented to the ER for evaluation. Upon evaluation the patient was noted to have slight leukocytosis, and renal failure with a BUN of [address] of the abdomen and pelvis showed bilateral nonobstructive renal calculi, and bilateral atrophy of the renal parenchyma. His bladder was noted to be distended, and question the possibility of bladder mass. Patient was started on Levaquin for treatment of urinary tract infection, and he was seen by urology on consultation were in the patient had cystoscopy, and he was found to have hemorrhagic cystitis. The procedure was done on 03/31/2017. Yesterday, in p.m., patient developed an episode of unresponsiveness, patient was hypotensive, nursing staff felt he may have had a seizure, hence he was treated with Keppra, patient was unable to protect his airways, and I was notified about the patient at that time. Patient was given fluid boluses for hypotension, started on levo fed, and later on vasopressin was started. Patient was sent for a CT of the brain which came back negative for CVA. And he was later transferred back to the ICU were and we determined that the patient has a clear cut picture of septic shock from his urinary tract infection which turned out to be secondary to Enterobacter species. Patient was already on Levaquin, this was discontinued and he was placed on Zosyn and Merrem. Overnight, the patient remained relatively hypotensive in spite of significant high doses of norepinephrine, and vasopressin was later started. Presently the patient is on 75 mics of norepinephrine, and he is on 0.05 units of vasopressin. Blood pressure is marginal, many fluid boluses were given, and I believe he received over 10 L of fluids. His urine output has been excellent and he seems to have a polyuria picture. Renal functioning seems to be significantly improved in the last 24 hours. Lactic acid remains high this morning at 5.1. All his electrolytes were abnormal including low potassium which was corrected, calcium was also corrected, and his creatinine improved from 2.36 down to 1.50. Urine cultures were noted, but no blood cultures have been noted so far. Today I saw the patient in the ICU, remains on mechanical ventilation, his ventilator settings are tidal volume of 500, assist control rate of 20, FiO2 is down to 50%, and PEEP is at 5. ABG showed a pO2 of 136 pCO2 of 31 pH of 7.23, hence the patient was given more bicarb, and kept on the bicarb drip with 3 A of bicarb in 1 L of D5W running at 1 25 mL per hour. In spite of all of this, the patient is on small dose of propofol, he is arousable, and follows simple instructions. Seems to be very appropriate. Neurology-yanez, the patient was given Keppra, and EEG was ordered, it is not certain whether the patient truly had a seizure or not. Patient was reevaluated today on 04/02/2017, remains on mechanical ventilation, same vent setting, however his FiO2 is decreased down to 45%, tidal volume remains at 500, assist control rate is at 20, and PEEP is at 5. ABG this morning showed a pO2 of 103 pCO2 of 33 pH of 7.40. Hence, down significantly on the sodium bicarb drip, The patient on IV fluids, patient still requiring significant fluid boluses to maintain an adequate mean arterial blood pressure. His urine output has been excellent, he is putting out almost 300 mL per hour. Patient continues to have leukocytosis with WBC count of 36.3 hemoglobin is 11.5. Renal profile is basically almost back to normal. And his acute kidney injury has resolved. Sodium is elevated, at 147, hence I changed his IV fluid 0.45 instead of 0.9. His electrolytes were noted to be abnormal, and these were all being corrected as per protocol. Chest x-ray continues to show retrocardiac consolidation, and small left pleural effusion. I was able to review an old x-ray from 2011, apparently had some chronic scarring in the left lower lobe, and some atelectasis in the left retrocardiac area, but not as pronounced as noted on this present x-ray from this admission. Patient remains on norepinephrine at 75 g, he is also on vasopressin at 0.05 units. Reevaluated today on 04/03/2017, patient remains on mechanical ventilation, same ventilator settings as noted above with FiO2 of 45% tidal volume of 500 assist control rate of 20 and PEEP of 5. ABG showed a pO2 of 79 pCO2 of 32 pH of 7.42 hence the sodium bicarb drip was discontinued. Lactic acid is responding but slowly and today's lactic acid is 3.9. More fluid boluses were given today, continues to have significant urine output, and patient had a positive balance of 2 L in the last 24 hours. Albumin will be given today, his potassium and calcium are being corrected as per protocol. Renal functioning remains normal. However WBC count is up to 42.4, hemoglobin is 10.3, platelets are down to 88,000, hence I have discontinued his Lovenox. One blood culture from the showed Enterobacter, another blood culture showed Enterobacter and nonhemolytic strep. The nonhemolytic strep is probably a contaminant. Patient was on vancomycin, doubt if we need to restart vancomycin at this point , patient is being followed by infectious disease, remains presently on Merrem and Zosyn to cover Enterobacter and Pseudomonas. Blood pressure-yanez, the patient remains on 45 mics of norepinephrine, and 0.05 units of vasopressin. We are in the process of titrating the norepinephrine down since the blood pressure seems to be holding better today than it was in the last couple of days. All meds were reviewed, patient also remains on propofol, relatively small dose to keep him slightly sedated, but the patient is arousable, and follows instructions. Chest x-ray continues to show left lower lobe retrocardiac opacity which is I believe chronic. Nutrition-yanez the patient seems to be tolerating tube feeding well via nasogastric tube. The patient is seen again today 04/04/2017 in follow-up in the intensive care unit. He remains intubated on the mechanical ventilator with settings of assist control mode at a rate of 20, tidal volume 500, FiO2 45%, PEEP of 5. Morning blood gases reveal pO2 of 100, pCO2 30, pH 7.41 with a mixed acid-base abnormality including respiratory alkalosis and metabolic acidosis. The patient 's cultures were positive for Enterobacter aerogenes and pseudomonas aeruginosa in the urine, Enterobacter aerogenes nonhemolytic strep in the blood. He remains on meropenem and vancomycin. He is also on norepinephrine at 25 mcg/m, vasopressin at 0.05 units per minute, propofol at 11 mcg/kg/m, insulin at 7.5 units per hour. He is being nourished with Vital HP at 57 mL per hour which is goal. He has a 0.45 normal saline at 200 mL's per hour. He is alert and oriented and nods his head appropriately. The patient is seen again today 04/05/2017 in follow-up in the intensive care unit. He remains intubated and on mechanical ventilator. Current settings assist-control mode of rate of 20, tidal volume 500, FiO2 40% and a PEEP of 5. Morning arterial blood gases revealed a pO2 of 113 on 45% FiO2, pCO2 35, pH 7.36. He remains alert and oriented following simple commands by nodding his head yes and no appropriately. He remains on norepinephrine at 9 mcg/m, vasopressin at 0.05 units per minute, propofol at 10 mcg/kg/m, hydrocortisone at 12.5 mg per hour, insulin at 0.5 units per hour. He has 0.45 normal saline at 200 MLS per hour. He is being nourished with Vital HP at 57 mL per hour which is goal. He is receiving flushes of 30 mL every 4 hours. He remains on meropenem. Progress note dated 04/06/2017 This is a 51-year-old male with a history of respiratory failure secondary to overwhelming sepsis and septic shock from a urinary tract infection secondary to Enterobacter Jameson reason pseudomonas aeruginosa. Blood cultures were also positive for Enterobacter around kidneys. The patient is doing relatively well. His FiO2 and PEEP levels are low. His blood gases are reasonable. His weaning parameters today were fine and were thinking about extubating the patient. In addition, the patient has a history of hypoxemic respiratory failure severe metabolic derangements including lactic acidemia secondary to sepsis previous history of paraplegia with neurogenic bladder acute kidney injury secondary to septic shock and acute tubular necrosis and a history of kidney stones. The patient has had multiple surgeries for skin grafts of pressure sores as well as previous sphincterotomy and lithotripsy for kidney stones. Again the patient seemed be doing relatively well today. We'll stop his propofol. Local had an empty stomach. We'll give him a CPAP/PSV trial. We 'll check a cuff leak. We will do a rapid shallow breathing index. Everything looks good, trial of extubation. On 04/11/2017 I'm seeing this patient for a follow-up. As mentioned earlier the patient was treated for septic shock and he was aggressively resuscitated with IV fluids and currently is hemodynamically stable. Nevertheless he is in obvious fluid overload with increased edema in lower extremities and upper extremity is bilaterally and today's chest x-ray shows small bilateral pleural effusion which was not present on previous chest x-rays. ET tube is in a good location. As mentioned earlier the patient has failed extubation twice and the plan is to proceed with a tracheostomy tube insertion today. He will also need a PEG tube insertion. Hemodynamically the patient is still borderline hypotensive on 3 mics of levo fed for hemodynamic support. Nevertheless, he is producing more than 200 mL of urine output on an hourly basis. His sodium is elevated at 145 and the patient is receiving D5 water at the rate of 1 75 mL an hour. He is an assist-control mode of ventilation. Currently is on assist control of 22, tidal volume of 450, FiO2 of 40% and a PEEP of 5. His morning blood Showed a pH of 7.56 with a pCO2 of 34 and pO2 of 143. He is afebrile. The blood culture was positive for Enterobacter and the patient is on IV Merrem. Urine cultures positive for Enterobacter and Pseudomonas. As mentioned earlier, the patient is paraplegic. He has leg wounds bilaterally which are more like excoriation and some degree of skin sloughing due to his peripheral edema. He also has some similar findings on his coccyx. His white cell count is up from 42 down to 8.1 and it was essentially related to his sepsis. Clinically, the patient is awake. The patient is following commands and answering simple questions. His been off Diprivan for the past 24 hours. On 04/12/2017 I'm seeing this patient for a follow-up. The patient is awake while being on mechanical ventilator. He remains somewhat hypotensive. Overnight I was contacted the patient's pressor doses have been gradually increased up to 6 mics and the patient also spiked a temperature. Based on that I asked the patient to be recultured including blood and urine. I also asked ID to reevaluate the patient and vancomycin got admitted on an empiric basis. The patient was also started on vasopressin and an attempt to gradually wean off the norepinephrine infusion. Earlier this morning, I noted that the patient started having some diarrhea and there is obvious concern for C. diff colitis. Stool will be sent for C. diff evaluation. I also discussed the case with the thoracic surgeon and Dr. Montes was a bit hesitant to proceed with a PEG and trach specially with his ongoing hemodynamic instability and he opted to wait on the procedure for another 24-48 hours. Meanwhile, I noted that the patient seemed to have a good state of weaning parameters earlier this morning. I give him a spontaneous breathing trial with a pressure support of 5 and a PEEP of 5 and within 10 to any minutes into the trial the patient decompensated and became hypotensive and hypoxic and he went into respiratory distress. Based on that the spot is breathing trial was aborted and the patient was placed back on assist control mode. His hypernatremia is improving and the sodium level is improved. The patient received D5 water addition to free water through the NG. D5 water will be kept on nontender the patient has become progressively more edematous both in upper and lower extremities. He has also skin excoriation around his buttocks and lower extremities bilaterally and local wound care is being applied. Calcium level from this morning was at 6.2 and the patient was given it in part of calcium gluconate 1 g. A drop in hemoglobin was also noted down to 7.7 and this probably is dilutional. The patient is tolerating enteral feeding through his NG tube. The patient is seen again today 04/13/2017 in follow-up in the intensive care unit. He remains awake and alert and following commands. He unfortunately remains on the mechanical ventilator. Current settings are assist-control mode of 18, tidal volume 400, FiO2 40% and a PEEP of 5. Morning blood gases reveal a pO2 of 132, pCO2 31 and a pH of 7.47. Chest x-ray reveals bilateral infiltrates and pleural effusions but no significant interval change. He does continue to spike fevers up to 102.3 earlier this morning. Follow-up blood, urine and sputum cultures have been negative. He remains on meropenem and vancomycin. He still continues with issues with hypotension and is on vasopressin at 0.03 units per minute along with norepinephrine at 5 mcg/m. He is tolerating his tube feedings which are at 65 MLS per hour his goal. His hemoglobin remained stable at 8.5. Sodium 144, chloride 1:15. AST 312, ALT 186 , alk phos 327. An ultrasound of the gallbladder appeared to be within normal limits. There is moderate hepatic steatosis. Right-sided nephrolithiasis without evidence of hydronephrosis. Based on his continued temps and hypotension there no immediate plans for tracheostomy and PEG tube placement checked today. The patient is seen again today 04/14/2017 in follow-up in the intensive care unit. He remains awake and alert and following commands. He is responding appropriately. He remains intubated on the mechanical ventilator with vent settings of assist control mode of 18, tidal volume 400, FiO2 40% and a PEEP of 5. Morning blood gases reveal a P O2 of 118, pCO2 of 32, pH 7.46. White count 2.2. Hemoglobin 8.3. Creatinine 0.80. His temperature today was 100.7. He is slightly tachycardic. Follow-up urine culture is positive for Kim. He was initiated on micafungin. Sputum cultures reveal no growth to date. Catheter tip reveals no growth. Blood cultures reveal no growth. There is a nondraining wound at the base of his penis. The wounds on his lower extremities are dry. There is also a fluid collection in the right upper extremity via Doppler yesterday. He remains on ertapenem and vancomycin. He also remains on vasopressin at 0.03 units per minute, norepinephrine at 9 mcg/ m. Propofol remains off. On 04/15/2017 I'm seeing this patient for a follow-up. The ongoing active issue for now is his fever and hypotension. The patient was worked up extensively for the fever and ultimately the blood culture came back positive for Kim parapsilosis. Note that his urine culture was also positive for Kim. I had ordered to start the patient on micafungin and his been on the antifungal treatment for the past 24 hours. The exact source of the Kim is not clear although it could be the PICC line is present in the right upper extremity. In any rate this is a double-lumen PICC line and one of the ports is now functioning it's leaking at least 2, out and the tip will be sent also for cultures. The patient this morning is on 50 mics of norepinephrine infusion. The patient is also on physiologic dose vasopressin. He is having fever with a T-max of 101.3. At the same time, he is awake and alert. He is following commands. On the mechanical ventilation and no changes on his vent settings have been down. His is on assist-control mode of ventilation at the rate of 18, tidal volume 400, FiO2 of 40% and a PEEP of 5. Chest x-ray from yesterday showed no evidence of any pneumonia. The patient is small bilateral pleural effusion which remains essentially unchanged. ET tube remains in a good location. No significant secretions through the orotracheal tube. As far as his hemodynamics, the patient as mentioned is hypotensive on norepinephrine infusion however he is producing adequate amount of urine output. The patient has a normal renal function with a creatinine of 0.8. The skin examination shows multiple wounds in the lower extremities bilaterally at described earlier in my dictation. Appropriate dressings have been applied to his lower extremities bilaterally and his coccygeal area. He is tolerating tube feeds. His sodium level is again on the rise and the sodium level today is up to 149. There is a component of hyperchloremic hypernatremia. He is also having liquidy diet intake bowel movements in the order of 200-300 mL every 8 hours. We'll for C. diff evaluation has been negative. The patient is on enteral feeding and he is receiving vital high protein at the rate of 64 mL an hour. He is also receiving free water flushes 30 mL every 4 hours. Terms of antibiotic coverage, the patient is currently on micafungin. The patient is also on a combination of Invanz and IV vancomycin was discontinued by infectious disease and the patient was switched oral vancomycin in consideration for C. diff colitis despite the fact that the stool evaluation was negative for C. diff. The latest vancomycin level from yesterday was 20.3. On 04/16/2017 I'm seeing this patient for a follow-up. As mentioned earlier, the patient remains intubated on a mechanical ventilator with failure to wean. He is awake and alert and his communicating. He was found to have candidal sepsis and the patient was a she started on micafungin and following that he was switched to high-dose Diflucan. The PICC line in the right approximately was removed and a triple lumen cath in the left subclavian vein was inserted yesterday. He also has an art line. This morning he is on 15 mics of norepinephrine infusion. He is however having only low-grade fever. He is more stable compared to yesterday more awake and alert and more interactive. His blood pressure is improved and I think this would be a good time to start weaning his norepinephrine infusion. He is tolerating his tube feeds. He remains on a mechanical ventilator. No changes on the vent setting was done. Chest x-ray shows small better pleural effusion. It tube is in a good location. No evidence of any pneumothorax. There is a subclavian vein triple- lumen catheter in place. The patient's sodium level is gradually improving. The patient is on D5 water at the rate of 75 mL an hour. The white cell count is not elevated. Morning blood gases showed a pH of 7.43 with a pCO2 of 36 and pO2 of 95. The patient remains on a combination of ertapenem, IV Diflucan, and oral vancomycin. The liquidy diuretic stool/bowel movements have improved also. The patient has FM I S system in place. The liver function tests are gradually improving. Ocular phosphatase remains somewhat slightly elevated. The vancomycin level last check was on 04/14/2017 it was at 20.3. Is currently off IV vancomycin. On 04/17/2017, patient remains on mechanical ventilation, he is a failure to wean , awaiting eventually tracheostomy and PEG tube placement, however the patient has to demonstrate some hemodynamic stability before that could be done. Remains on about 8 g of norepinephrine, remains on 0.03 units of vasopressin, still receiving fluid boluses intermittently for low blood pressure. Today I restarted hydrocortisone again. Patient was started on micafungin by infectious disease because of his positive Kim in the blood cultures. Patient is tolerating tube feeds, remains on mechanical ventilation with the same vent settings, chest x-ray continues to show some left lower lobe atelectasis and possibly a small pleural effusion, left subclavian catheter is in place, labs were all reviewed. WBC count is 5.6 hemoglobin is 7.8 basic metabolic profile is normal ABG showed a pO2 of 125 pCO2 of 35 pH of 7.43. Liver profile was noted to be a bit elevated including elevated alkaline phosphatase. Albumin is 2.0. Patient was reevaluated today on 04/18/2017, remains on mechanical ventilation and failure to wean. Still showing hemodynamic instability, although we were able to get him off levo fed at least for the last few hours, and he remains on a small dose of vasopressin. Patient remains on hydrocortisone, his hemoglobin today is low and the patient will receive 2 units of packed RBCs. ABG this morning showed a pO2 of 116 pCO2 of 44 pH of 7.36, hence I placed the patient back on FiO2 of 45%. Hemoglobin is 6.2 today, and again patient received 2 units of packed RBCs no clear-cut evidence of active bleeding or GI bleeding, he has normal color stools and no blood noted in the nasogastric tube and no coffee-ground emesis. Screening for C. diff was negative. Objective - Vital Signs Vital signs: Vital Signs Temp 99.3 F 04/18/17 09:51 Pulse 101 H 04/18/17 10:00 Resp 29 H 04/18/17 10:00 BP 118/57 04/18/17 10:00 Pulse Ox 96 04/18/17 10:00 Intake & Output 04/17/17 04/18/17 04/18/17 18:59 06:59 18:59 Intake Total 2581.781 1124.002 520 Output Total 3035 2475 575 Balance -453.219 -1350.998 -55 Weight 113.8 kg 113.8 kg Intake: IV 1093 24 406 0.9 normal saline 70 150 Dextrose 5% in Water 1, 975 150 000 ml @ 75 mls/hr IV . [id number] MANDA Rx#:[id number] Pressure Bag 39 24 6 Vasopressin 9 levETIRAcetam IV 1,000 mg 100 In Saline 1 100ml.bag @ 400 mls/hr IVPB Q12HR MANDA Rx#:[id number] Intake, IV Titration 200.781 8.002 50 Amount Ertapenem 1 gm In Sodium 50 Chloride 0.9% 50 ml @ 100 mls/hr IVPB DAILY MANDA Rx #:[id number] Norepinephrin 16 mg-0.9% 200.781 8.002 Ns Pmx 16 mg In 250 ml @ Titrate IV .Q0M MANDA Rx#: [id number] Tube Feeding 1088 832 64 Blood Product 0 Rc As-1 Unit 0 [id number] Other 200 260 Output: Urine 3035 2475 575 Other: Voiding Method Indwelling Catheter Indwelling Catheter ABP, PAP, CO, CI - Last Documented Arterial Blood Pressure 111/45 - Exam Physical Exam: Revealed a 51-year-old white male, morbidly obese, on mechanical ventilation, sedated, in no distress at present. HEENT:[ Short obese neck. Neck is supple.] [No neck masses.] [No thyromegaly.] [No JVD.] PERRLA, EOMI, moist mucous membranes. Endotracheal tube is intact. Chest: [Diminished breath sounds at the bases, especially at the left base. no crackles nor rhonchi no wheezes.] Cardiac Exam: [Normal S1 and S2, no S3 gallop, no murmur.] Abdomen: [Obese, Soft, nontender, no megaly, no rebound, no guarding, normal bowel sounds.] Extremities: [No clubbing, no edema, no cyanosis. Significant muscle atrophy and wasting of muscles noted in lower extremities, patient is paraplegic.] Flexion contractures noted bilaterally. Neurological Exam: [No focal neurologic deficit. Except for paraplegia from the waist down. Lymphatics: No lymphadenopathy. Psychiatric: Normal mood, affect, and cannot fully assess mental status exam.] - Labs CBC & Chem 7: 04/18/17 05:55 04/18/17 05:25 Labs: Abnormal Lab Results - Last 24 Hours (Table) 04/17/17 04/17/17 04/18/17 Range/Units 12:56 17:51 00:44 RBC (4.30-5.90) m/uL Hgb (13.0-17.5) gm/dL Hct (39.0-53.0) % MCHC (31.0-37.0) g/dL RDW (11.5-15.5) % Plt Count (150-450) k/uL Lymphocytes # (1.0-4.8) k/uL ABG pO2 (83-108) mmHg ABG Total CO2 (19-24) mmol/L ABG O2 Saturation (94-97) % Potassium (3.5-5.1) mmol/L Chloride (98-107) mmol/L Glucose (74-99) mg/dL POC Glucose (mg/dL) 154 H 195 H 172 H (75-99) mg/dL Calcium (8.4-10.2) mg/dL AST (17-59) U/L ALT (21-72) U/L Alkaline Phosphatase (38-126) U/L Total Protein (6.3-8.2) g/dL Albumin (3.5-5.0) g/dL Crossmatch 04/18/17 04/18/17 04/18/17 Range/Units 05:25 05:25 05:55 RBC 2.26 L 2.21 L (4.30-5.90) m/uL Hgb 6.4 L* 6.2 L* (13.0-17.5) gm/dL Hct 21.0 L 20.6 L (39.0-53.0) % MCHC 30.5 L 29.9 L (31.0-37.0) g/dL RDW 18.1 H 17.8 H (11.5-15.5) % Plt Count 108 L 111 L (150-450) k/uL Lymphocytes # 0.8 L (1.0-4.8) k/uL ABG pO2 (83-108) mmHg ABG Total CO2 (19-24) mmol/L ABG O2 Saturation (94-97) % Potassium 3.3 L (3.5-5.1) mmol/L Chloride 109 H (98-107) mmol/L Glucose 192 H (74-99) mg/dL POC Glucose (mg/dL) (75-99) mg/dL Calcium 6.8 L (8.4-10.2) mg/dL AST 95 H (17-59) U/L ALT 118 H (21-72) U/L Alkaline Phosphatase 322 H (38-126) U/L Total Protein 4.8 L (6.3-8.2) g/dL Albumin 2.0 L (3.5-5.0) g/dL Crossmatch 04/18/17 04/18/17 04/18/17 Range/Units 06:10 07:15 07:45 RBC (4.30-5.90) m/uL Hgb (13.0-17.5) gm/dL Hct (39.0-53.0) % MCHC (31.0-37.0) g/dL RDW (11.5-15.5) % Plt Count (150-450) k/uL Lymphocytes # (1.0-4.8) k/uL ABG pO2 116 H (83-108) mmHg ABG Total CO2 25 H (19-24) mmol/L ABG O2 Saturation 98.3 H (94-97) % Potassium (3.5-5.1) mmol/L Chloride (98-107) mmol/L Glucose (74-99) mg/dL POC Glucose (mg/dL) 193 H (75-99) mg/dL Calcium (8.4-10.2) mg/dL AST (17-59) U/L ALT (21-72) U/L Alkaline Phosphatase (38-126) U/L Total Protein (6.3-8.2) g/dL Albumin (3.5-5.0) g/dL Crossmatch See Detail Microbiology - Last 24 Hours (Table) 04/15/17 14:50 Catheter Tip Culture - Final Picc Line Assessment and Plan Assessment: 1 acute septic shock secondary to urinary tract infection, acute cystitis secondary to Enterobacter aerogenes and pseudomonas aeruginosa as noted in the urine. His blood cultures are positive for Enterobacter. Blood cultures negative. He remains on meropenem, and the patient is on low-dose levo fed for blood pressure support Subsequently, the patient continued to be septic and hypotensive and on today's evaluation of 04/15/2017 the patient has confirmed candidiasis/candidemia and his blood cultures positive for Kim parapsilosis. The exact source is not clear although line infection is highly considered especially the patient is a PICC line in the right upper extremity. The PICC line will be removed and the patient will be started with a triple lumen catheter. The tip of the PICC line will be sent for cultures. The patient is on micafungin for now. Meanwhile, the patient is still requiring pressors for hemodynamic support. The patient is currently on a combination of levo fed and vasopressin for blood pressure support. On 04/16/2017, the patient is being treated for systemic candidemia with IV Diflucan. The patient is having low-grade fever and his still pressor dependent. The PICC line has been removed and the tip was sent for culture. A triple lumen catheter was inserted in the left subclavian. Blood pressures improved. He is still having some low-grade fever and I think we should be able to start gradually weaning down the pressors. He remains on IV Invanz regarding a previous Enterobacter infection of the urine and positive septicemia. On 04/17/2017, patient remains on antibiotics, and antifungal therapy, still hemodynamically unstable for trach and PEG placement. Still unable to wean, remains on mechanical ventilation, and I have restarted back on hydrocortisone. Patient is still requiring significant amount of vasopressin and norepinephrine. 2 acute hypoxic respiratory failure secondary to above. Failed extubation requiring reintubation. The plan is for probable tracheostomy on 04/11/2017, however the patient's procedure got canceled due to ongoing hemodynamic changes and decision opted to wait for another 24 hours today's further stable. Meanwhile, the patient was given another spontaneous breathing trial and he failed and based on that no attempts to extubate this patient were done. We are more convinced that he will need a PEG and trach at a later stage. The patient remains hemodynamically unstable and he is not ready to undergo the procedure yet. The procedure has been postponed until his sepsis is under better control. 3 acute metabolic, lactic acidosis secondary to 1, recovered 4 history of paraplegia and neurogenic bladder. 5 acute kidney injury secondary to sepsis and septic shock, recovered 6 history of nephrolithiasis/bilateral. 7 history of multiple surgeries including skin graft for pressure sores, right ureteroscopy with lithotripsy in 2005 and external sphincterotomy 1990 and 1994. 8 hypotension and the patient is still requiring pressors for blood pressure support 9 extensive edema in lower extremities bilaterally along with superficial scale ulcerations and excoriation and sloughing in the lower extremities and coccyx. 10 leukocytosis, improved 11 acute respiratory alkalosis, improving 12 small bilateral pleural effusions. 13 abnormal LFTs with elevation and alkaline phosphatase, and ultrasound the gallbladder shows no evidence of any cholecystitis, and the liver function tests are being monitored . Rule out drug effect. Rule out Merrem affecting the patient has been switched to Invanz. On today's evaluation, LFTs remains somewhat elevated although they're improving compared to last evaluation. 14 hypernatremia, recurrent 15 anemia, stable hemoglobin for now. 16 diarrhea, possibly antibiotic induced. There is no evidence of any C. diff colitis. Recommendation: Continue ventilatory support, hemodynamic support, antibiotics and antifungal therapy, patient remains on Invanz, fluconazole, restarted Solu- Cortef, more fluid boluses will be given and the patient remains critically ill. 2 units of packed RBCs will be given today for a low hemoglobin, patient seems to be tolerating being off norepinephrine for now, what remains of vasopressin, we eventually planned tracheostomy and PEG tube placement, and possibly transferred to [facility]. Discussed his condition with all his family members at bedside, and I discussed his condition with the surgical staff to decide whether a trach and PEG could be done tomorrow. That will depend on the hemodynamic stability over the critical care time is 35 minutes next 24 hours Time with Patient: Greater than 30
[2017-04-18] MEDS: FLUCONAZOLE IN NACL,ISO-OSM 400 MG in SALINE 1 200ML.BAG IVPB SCH (11:13)
[2017-04-18] MEDS: LACTATED RINGERS 1,000 ML IV SCH (11:14)
--- NOTE | 2017-04-18 11:41 | P.PN ---
Subjective Progress Note Date: 04/18/17 Principal diagnosis: Acute septic shock secondary to urinary tract infection. Acute cystitis secondary to Enterobacter regimen knees and Pseudomonas in the urine. Acute hypoxic respiratory failure requiring mechanical ventilation with failure to wean. Continued hypotension requiring pressor support. New-onset seizure disorder. History of quadriplegia, neurogenic bladder, intermittent urinary retention with self-catheterization, GERD, kidney stones, coccygeal ulcers with skin grafts. Remains awake and alert on mechanical ventilation. Tracheostomy PEG tube placement has been deferred until patient is hemodynamically stable off pressors. Objective - Vital Signs Vital signs: Vital Signs Temp 99.3 F 04/18/17 09:51 Pulse 101 H 04/18/17 10:00 Resp 29 H 04/18/17 10:00 BP 118/57 04/18/17 10:00 Pulse Ox 96 04/18/17 10:00 Intake & Output 04/17/17 04/18/17 04/18/17 18:59 06:59 18:59 Intake Total 2581.781 1124.002 520 Output Total 3035 2475 575 Balance -453.219 -1350.998 -55 Weight 113.8 kg 113.8 kg Intake: IV 1093 24 406 0.9 normal saline 70 150 Dextrose 5% in Water 1, 975 150 000 ml @ 75 mls/hr IV . [id number] [facility] Rx#:[id number] Pressure Bag 39 24 6 Vasopressin 9 levETIRAcetam IV 1,000 mg 100 In Saline 1 100ml.bag @ 400 mls/hr IVPB Q12HR [facility] Rx#:[id number] Intake, IV Titration 200.781 8.002 50 Amount Ertapenem 1 gm In Sodium 50 Chloride 0.9% 50 ml @ 100 mls/hr IVPB DAILY [facility] Rx #:[id number] Norepinephrin 16 mg-0.9% 200.781 8.002 Ns Pmx 16 mg In 250 ml @ Titrate IV .Q0M [facility] Rx#: [id number] Tube Feeding 1088 832 64 Blood Product 0 Rc As-1 Unit 0 [id number] Other 200 260 Output: Urine 3035 2475 575 Other: Voiding Method Indwelling Catheter Indwelling Catheter ABP, PAP, CO, CI - Last Documented Arterial Blood Pressure 111/45 - Constitutional General appearance: Present: cooperative, no acute distress, obese - Respiratory Details: Assessments bilaterally. Respirations even, nonlabored on mechanical ventilation. Current ventilator settings assist control mode, FiO2 45%, tidal volume 400, respiratory rate 18, PEEP 5. - Cardiovascular Details: S1, S2 present. Regular rate and rhythm, sinus rhythm on telemetry. Palpable peripheral pulses bilaterally. Left subclavian triple-lumen central line, right radial arterial line present. Bilateral lower extremity edema present. SCDs present. - Gastrointestinal Gastrointestinal Comment(s): Abdomen soft, nontender, nondistended. Active bowel sounds 4 quadrants. Tolerating tube feeding at 64 mL per hour through OG tube. Flexi-seal present draining brown, liquid stool. - Genitourinary Genitourinary Comment(s): Mclaughlin present draining clear, yellow urine. Output 150-175 mL per hour. - Neurologic Neurologic Comment(s): Currently sedated with propofol mechanical ventilation. Does open eyes and follows all commands. - Allied health notes Allied health notes reviewed: nursing - Labs CBC & Chem 7: 04/18/17 05:55 04/18/17 05:25 Labs: Abnormal Lab Results - Last 24 Hours (Table) 04/17/17 04/17/17 04/18/17 Range/Units 12:56 17:51 00:44 RBC (4.30-5.90) m/uL Hgb (13.0-17.5) gm/dL Hct (39.0-53.0) % MCHC (31.0-37.0) g/dL RDW (11.5-15.5) % Plt Count (150-450) k/uL Lymphocytes # (1.0-4.8) k/uL ABG pO2 (83-108) mmHg ABG Total CO2 (19-24) mmol/L ABG O2 Saturation (94-97) % Potassium (3.5-5.1) mmol/L Chloride (98-107) mmol/L Glucose (74-99) mg/dL POC Glucose (mg/dL) 154 H 195 H 172 H (75-99) mg/dL Calcium (8.4-10.2) mg/dL AST (17-59) U/L ALT (21-72) U/L Alkaline Phosphatase (38-126) U/L Total Protein (6.3-8.2) g/dL Albumin (3.5-5.0) g/dL Crossmatch 04/18/17 04/18/17 04/18/17 Range/Units 05:25 05:25 05:55 RBC 2.26 L 2.21 L (4.30-5.90) m/uL Hgb 6.4 L* 6.2 L* (13.0-17.5) gm/dL Hct 21.0 L 20.6 L (39.0-53.0) % MCHC 30.5 L 29.9 L (31.0-37.0) g/dL RDW 18.1 H 17.8 H (11.5-15.5) % Plt Count 108 L 111 L (150-450) k/uL Lymphocytes # 0.8 L (1.0-4.8) k/uL ABG pO2 (83-108) mmHg ABG Total CO2 (19-24) mmol/L ABG O2 Saturation (94-97) % Potassium 3.3 L (3.5-5.1) mmol/L Chloride 109 H (98-107) mmol/L Glucose 192 H (74-99) mg/dL POC Glucose (mg/dL) (75-99) mg/dL Calcium 6.8 L (8.4-10.2) mg/dL AST 95 H (17-59) U/L ALT 118 H (21-72) U/L Alkaline Phosphatase 322 H (38-126) U/L Total Protein 4.8 L (6.3-8.2) g/dL Albumin 2.0 L (3.5-5.0) g/dL Crossmatch 04/18/17 04/18/17 04/18/17 Range/Units 06:10 07:15 07:45 RBC (4.30-5.90) m/uL Hgb (13.0-17.5) gm/dL Hct (39.0-53.0) % MCHC (31.0-37.0) g/dL RDW (11.5-15.5) % Plt Count (150-450) k/uL Lymphocytes # (1.0-4.8) k/uL ABG pO2 116 H (83-108) mmHg ABG Total CO2 25 H (19-24) mmol/L ABG O2 Saturation 98.3 H (94-97) % Potassium (3.5-5.1) mmol/L Chloride (98-107) mmol/L Glucose (74-99) mg/dL POC Glucose (mg/dL) 193 H (75-99) mg/dL Calcium (8.4-10.2) mg/dL AST (17-59) U/L ALT (21-72) U/L Alkaline Phosphatase (38-126) U/L Total Protein (6.3-8.2) g/dL Albumin (3.5-5.0) g/dL Crossmatch See Detail Microbiology - Last 24 Hours (Table) 04/15/17 14:50 Catheter Tip Culture - Final Picc Line - Imaging and Cardiology Chest x-ray: report reviewed, image reviewed Assessment and Plan (1) Acute respiratory failure requiring reintubation Current Visit: Yes Status: Acute Code(s): J96.00 - ACUTE RESPIRATORY FAILURE , UNSP W HYPOXIA OR HYPERCAPNIA SNOMED Code(s): 718876848 (2) Acute urinary tract infection Current Visit: Yes Status: Acute Code(s): N39.0 - URINARY TRACT INFECTION, SITE NOT SPECIFIED SNOMED Code(s): 214203594 (3) GERD (gastroesophageal reflux disease) Current Visit: Yes Status: Chronic Code(s): K21.9 - GASTRO-ESOPHAGEAL REFLUX DISEASE WITHOUT ESOPHAGITIS SNOMED Code(s): 868559350 (4) Gross hematuria Current Visit: Yes Status: Resolved Code(s): R31.0 - GROSS HEMATURIA SNOMED Code(s): 496437400 (5) History of nephrolithiasis Current Visit: Yes Status: Chronic Code(s): Z87.442 - PERSONAL HISTORY OF URINARY CALCULI SNOMED Code(s): 525160436 (6) History of quadriplegia Current Visit: Yes Status: Chronic Code(s): Z86.69 - PERSONAL HISTORY OF DIS OF THE NERVOUS SYS AND SENSE ORGANS SNOMED Code(s): 952722654 (7) Seizure Current Visit: Yes Status: Acute Code(s): R56.9 - UNSPECIFIED CONVULSIONS SNOMED Code(s): 95348865 (8) Septic shock Current Visit: Yes Status: Acute Code(s): A41.9 - SEPSIS, UNSPECIFIED ORGANISM; R65.21 - SEVERE SEPSIS WITH SEPTIC SHOCK SNOMED Code(s): 14652272 (9) Septic shock due to Pseudomonas species Current Visit: Yes Status: Acute Code(s): A41.52 - SEPSIS DUE TO PSEUDOMONAS ; R65.21 - SEVERE SEPSIS WITH SEPTIC SHOCK SNOMED Code(s): 60213829 (10) Lactic acidosis Current Visit: Yes Status: Resolved Code(s): E87.2 - ACIDOSIS SNOMED Code( s): 04672562 (11) Toxic metabolic encephalopathy Current Visit: Yes Status: Resolved Code(s): G92 - TOXIC ENCEPHALOPATHY SNOMED Code(s): 222668539 Plan: The patient was seen and examined this morning. Remains awake and alert on mechanical ventilation. He has failed several weaning trials and it is felt that he will need a tracheostomy and PEG tube placement. We would like him to be hemodynamically stable off pressors prior to placing tracheostomy and PEG tube. Currently he is off levofed, on small dose vasopressin, receiving 2 units packed red blood cells. We will schedule him for tracheostomy and PEG tube placement tentatively tomorrow afternoon in anticipation that he will be off IV pressors. This has been discussed with the patient and family and all are in agreement. Continue ventilator management per pulmonology, antibiotics per infectious disease, and medical management of other comorbid disease processes by primary care services.
[2017-04-18 12:26] LABS: Glucose,Whole Blood 226 mg/dL (75-99)
[2017-04-18] MEDS ORDERED: POTASSIUM CHLORIDE 20 MEQ in WATER FOR INJECTION 1 100ML.BAG IVPB ONE (15:00)
[2017-04-18 18:35] LABS: Glucose,Whole Blood 209 mg/dL (75-99)
--- NOTE | 2017-04-18 22:05 | PN ---
PROGRESS NOTE DATE OF SERVICE: 04/18/2016. REASON FOR FOLLOW UP: 1. Enterobacter UTI and bacteremia. 2. Fungemia with Kim parapsilosis, likely PICC line related. INTERVAL HISTORY: The patient is afebrile. He is hemodynamically getting stabilized currently off the Levophed and a low dose of vasopressin. The patient's FIO2 remains to be stable. He was noticed to have a low hemoglobin for which the patient currently getting 2 units of blood transfusion. He remains to be awake and follows commands. Denies significant pain of abdominal pain. EXAMINATION: Blood pressure 114/60 with a pulse of 90, temperature of 98, he is 97% on 45% FiO2. General description is a middle-aged male lying in bed in no distress. Respiratory system: Unlabored breathing with decreased breath sounds in the bases. Heart S1, S2. Regular rate and rhythm. Abdomen soft, no tenderness. LABS: Hemoglobin is 6.2 with a white count of 3.8. BUN of 17, creatinine 0.70. DIAGNOSTIC IMPRESSION AND PLAN: Patient with Enterobacter urinary tract infection and bacteremia also subsequently developing Kim parapsilosis positive blood culture, likely due to the PICC line that has been discontinued. Patient currently on Diflucan and ertapenem that will be continued monitoring his clinical course closely. Family present at bedside. Their questions were answered. MMODL / IJN: [id number] / LUKASZ
[2017-04-18 23:14] LABS: Glucose,Whole Blood 204 mg/dL (75-99)
[2017-04-19] MEDS ORDERED: Potassium Replacement Protocol 1 EACH MISC MISCELLANE PRN ×2 (00:02→05:07)
[2017-04-19] MEDS: HYDROCORTISONE SUCCINATE 100 MG/2 ML VIAL IV SCH ×3 (00:38→17:35)
[2017-04-19] MEDS: HEPARIN SODIUM,PORCINE 5,000 UNIT/ML 1 ML VIAL SQ SCH ×3 (00:38→17:36)
[2017-04-19] MEDS: VANCOMYCIN ORAL SOLUTION 250 MG/5 ML BOTTLE NG-TUBE SCH ×3 (00:39→18:26)
[2017-04-19] MEDS ORDERED: POTASSIUM CHLORIDE ORAL LIQUID 40 MEQ/30 ML CUP NG-TUBE SCH ×2 (01:00→06:00)
[2017-04-19] MEDS: IPRATROPIUM-ALBUTEROL 3 ML NEB INHALATION SCH ×6 (03:29→23:08)
[2017-04-19 04:53] LABS: ALT 127 U/L (21-72); AST 79 U/L (17-59); Albumin 2.1 g/dL (3.5-5.0); Alkaline Phosphatase 316 U/L (38-126); Anion Gap 7 mmol/L; Blood Urea Nitrogen 21 mg/dL (9-20); Calcium 6.9 mg/dL (8.4-10.2); Carbon Dioxide 26 mmol/L (22-30); Chloride 117 mmol/L (98-107); Glucose 235 mg/dL (74-99); Magnesium 2.1 mg/dL (1.6-2.3); Phosphorus 2.1 mg/dL (2.5-4.5); Potassium 3.8 mmol/L (3.5-5.1); Sodium 150 mmol/L (137-145); Total Bilirubin 0.8 mg/dL (0.2-1.3)
[2017-04-19] MEDS ORDERED: Phosphorus Replacement Protoco 1 EACH MISC MISCELLANE PRN (05:08)
[2017-04-19 05:12] LABS: Anisocytosis Slight; Basophils % (A) 0 %; Eosinophils % (A) 0 %; HCT 27.2 % (39.0-53.0); Hypochromasia Moderate; Lymphocytes # (A) 0.8 k/uL (1.0-4.8); Lymphocytes % (A) 15 %; MCH 28.4 pg (25.0-35.0); MCHC 29.6 g/dL (31.0-37.0); Macrocytosis Slight; Mean Platelet Volume 8.5; Monocytes # (A) 0.2 k/uL (0-1.0); Monocytes % (A) 4 %; Neutrophils % (A) 79 %; Poikilocytosis Slight; RBC 2.83 m/uL (4.30-5.90); RDW 17.5 % (11.5-15.5); WBC 5.1 k/uL (3.8-10.6)
[2017-04-19 05:14] LABS: Platelet Count 169 k/uL (150-450)
[2017-04-19] MEDS ORDERED: POTASSIUM PHOSPHATE 10 MMOL in SODIUM CHLORIDE 0.9% 250 ML IV ONE (06:00)
[2017-04-19 06:03] LABS: Glucose,Whole Blood 242 mg/dL (75-99)
[2017-04-19] MEDS: INSULIN ASPART 100 UNIT/ML 1 ML 10 ML VIAL SQ SCH ×3 (06:19→18:21)
--- NOTE | 2017-04-19 07:53 | XR ---
EXAMINATION TYPE: XR chest 1V portable DATE OF EXAM: 04/19/2017 COMPARISON: Prior chest x-ray 04/18/2017 HISTORY: Intubated TECHNIQUE: Single frontal view of the chest is obtained. FINDINGS: Endotracheal tube, NG tube, left subclavian central venous catheter are stable and are ove rlying appropriate positions. NG tube has been advanced. Apical pleural thickening right greater than left again noted. Increased density of the lung bases is not significantly changed. The heart is obs cured. IMPRESSION: Similar findings, correlate for pneumonia versus edema, atelectasis and associated effus ion. Follow-up recommended.
--- NOTE | 2017-04-19 08:01 | P.PN ---
Subjective Principal diagnosis: Continuing care. This is a continue proximal on a 51-year-old white male essentially admitted for hematuria. He is developed sepsis with ensuing septic shock and needed significant ventilation. There is been a long course that he's been continually ventilated and unable to receive tracheostomy secondary to cardiac instability. He currently has been increased on his FiO2 to 50% at this time. Pressure seems to be stable. The patient is resting comfortably this morning. Objective - Vital Signs Vital signs: Vital Signs Temp 98.4 F 04/19/17 04:00 Pulse 99 04/19/17 07:33 Resp 20 04/19/17 07:00 BP 118/80 04/19/17 07:00 Pulse Ox 96 04/19/17 07:00 Intake & Output 04/18/17 04/19/17 04/19/17 18:59 06:59 18:59 Intake Total 3349 1689 Output Total 1650 4810 Balance 1699 -3121 Weight 113.8 kg 108.1 kg Intake: IV 1123 1164 0.9 normal saline 240 50 Dextrose 5% in Water 1, 750 975 000 ml @ 75 mls/hr IV . [id number] [facility] Rx#:[id number] Pressure Bag 33 39 levETIRAcetam IV 1,000 mg 100 100 In Saline 1 100ml.bag @ 400 mls/hr IVPB Q12HR [facility] Rx#:[id number] Intake, IV Titration 425 125 Amount Dextrose 5% in Water 1, 75 000 ml @ 75 mls/hr IV . [id number] [facility] Rx#:[id number] Ertapenem 1 gm In Sodium 50 Chloride 0.9% 50 ml @ 100 mls/hr IVPB DAILY [facility] Rx #:[id number] Fluconazole in NaCl,Iso- 200 Osm 400 mg In Saline 1 200ml.bag @ 100 mls/hr IVPB DAILY@1200 [facility] Rx#: [id number] Potassium Chloride 20 meq 100 In Water For Injection 1 100ml.bag @ 50 mls/hr IVPB ONCE ONE Rx#: [id number] Potassium Phosphate 10 125 mmol In Sodium Chloride 0 .9% 250 ml @ 125 mls/hr IV ONCE ONE Rx#:[id number] Oral 120 Tube Feeding 761 300 Blood Product 620 Rc As-1 Unit 310 [id number] Rc As-1 Unit 310 [id number] Other 300 100 Output: Urine 1650 4060 Stool 750 Other: Voiding Method Indwelling Catheter Indwelling Catheter ABP, PAP, CO, CI - Last Documented Arterial Blood Pressure 114/49 - Constitutional General appearance: Present: average body habitus - EENT Eyes: Absent: abnormal pupil - Neck Neck: Absent: lymphadenopathy - Respiratory Respiratory: bilateral: diminished - Cardiovascular Rhythm: regular Heart sounds: normal: S1, S2 - Gastrointestinal General gastrointestinal: Present: soft. Absent: tenderness - Musculoskeletal Musculoskeletal Comment(s): Paraplegia. - Labs CBC & Chem 7: 04/19/17 04:05 04/19/17 04:05 Labs: Abnormal Lab Results - Last 24 Hours (Table) 04/18/17 04/18/17 04/18/17 Range/Units 07:15 07:45 12:24 RBC (4.30-5.90) m/uL Hgb (13.0-17.5) gm/dL Hct (39.0-53.0) % MCHC (31.0-37.0) g/dL RDW (11.5-15.5) % Lymphocytes # (1.0-4.8) k/uL ABG pO2 116 H (83-108) mmHg ABG Total CO2 25 H (19-24) mmol/L ABG O2 Saturation 98.3 H (94-97) % Sodium (137-145) mmol/L Chloride (98-107) mmol/L BUN (9-20) mg/dL Glucose (74-99) mg/dL POC Glucose (mg/dL) 226 H (75-99) mg/dL Calcium (8.4-10.2) mg/dL Phosphorus (2.5-4.5) mg/dL AST (17-59) U/L ALT (21-72) U/L Alkaline Phosphatase (38-126) U/L Total Protein (6.3-8.2) g/dL Albumin (3.5-5.0) g/dL Crossmatch See Detail 04/18/17 04/18/17 04/19/17 Range/Units 18:32 23:11 04:05 RBC (4.30-5.90) m/uL Hgb (13.0-17.5) gm/dL Hct (39.0-53.0) % MCHC (31.0-37.0) g/dL RDW (11.5-15.5) % Lymphocytes # (1.0-4.8) k/uL ABG pO2 (83-108) mmHg ABG Total CO2 (19-24) mmol/L ABG O2 Saturation (94-97) % Sodium 150 H (137-145) mmol/L Chloride 117 H (98-107) mmol/L BUN 21 H (9-20) mg/dL Glucose 235 H (74-99) mg/dL POC Glucose (mg/dL) 209 H 204 H (75-99) mg/dL Calcium 6.9 L (8.4-10.2) mg/dL Phosphorus 2.1 L (2.5-4.5) mg/dL AST 79 H (17-59) U/L ALT 127 H (21-72) U/L Alkaline Phosphatase 316 H (38-126) U/L Total Protein 5.0 L (6.3-8.2) g/dL Albumin 2.1 L (3.5-5.0) g/dL Crossmatch 04/19/17 04/19/17 Range/Units 04:05 06:01 RBC 2.83 L (4.30-5.90) m/uL Hgb 8.0 L D (13.0-17.5) gm/dL Hct 27.2 L (39.0-53.0) % MCHC 29.6 L (31.0-37.0) g/dL RDW 17.5 H (11.5-15.5) % Lymphocytes # 0.8 L (1.0-4.8) k/uL ABG pO2 (83-108) mmHg ABG Total CO2 (19-24) mmol/L ABG O2 Saturation (94-97) % Sodium (137-145) mmol/L Chloride (98-107) mmol/L BUN (9-20) mg/dL Glucose (74-99) mg/dL POC Glucose (mg/dL) 242 H (75-99) mg/dL Calcium (8.4-10.2) mg/dL Phosphorus (2.5-4.5) mg/dL AST (17-59) U/L ALT (21-72) U/L Alkaline Phosphatase (38-126) U/L Total Protein (6.3-8.2) g/dL Albumin (3.5-5.0) g/dL Crossmatch Assessment and Plan (1) Paraplegia following spinal cord injury Current Visit: Yes Status: Acute Code(s): G82.20 - PARAPLEGIA, UNSPECIFIED SNOMED Code(s): 73900450 (2) Gross hematuria Current Visit: Yes Status: Resolved Code(s): R31.0 - GROSS HEMATURIA SNOMED Code(s): 986713939 (3) Uremia Current Visit: Yes Status: Acute Code(s): N19 - UNSPECIFIED KIDNEY FAILURE SNOMED Code(s): 96316317 (4) Seizure Current Visit: Yes Status: Acute Code(s): R56.9 - UNSPECIFIED CONVULSIONS SNOMED Code(s): 68304745 (5) Toxic metabolic encephalopathy Current Visit: Yes Status: Resolved Code(s): G92 - TOXIC ENCEPHALOPATHY SNOMED Code(s): 370445445 (6) Septic shock Current Visit: Yes Status: Acute Code(s): A41.9 - SEPSIS, UNSPECIFIED ORGANISM; R65.21 - SEVERE SEPSIS WITH SEPTIC SHOCK SNOMED Code(s): 13822614 Plan: As stated in previous notes, the patient has failed weaning after having significant septic shock. Now that the patient is off pressors, and anticipatory PEG tube with tracheostomy is noted. We'll continue to follow with consultants.
[2017-04-19 09:02] LABS: ABG Base Excess -1.8 mmol/L; ABG HCO3 23 mmol/L (21-25); ABG PCO2 43 mmHg (35-45); ABG PH 7.35 (7.35-7.45); ABG PO2 104 mmHg (83-108); ABG TCO2 24 mmol/L (19-24)
[2017-04-19] MEDS: levETIRAcetam IV 1,000 MG in SALINE 1 100ML.BAG IVPB SCH ×2 (10:07→20:47)
[2017-04-19] MEDS: CHLORHEXIDINE GLUCONATE 15 ML CUP MUCOUS MEM SCH ×2 (10:08→20:46)
[2017-04-19] MEDS: PANTOPRAZOLE 40 MG/10 ML VIAL IV SCH (10:08)
[2017-04-19] MEDS: ERTAPENEM 1 GM in SODIUM CHLORIDE 0.9% 50 ML IVPB SCH (10:08)
--- NOTE | 2017-04-19 12:06 | P.PN ---
Subjective Progress Note Date: 04/19/17 Principal diagnosis: Acute septic shock secondary to acute urinary tract infection. And acute fungemia This is a 51-year-old white male, paraplegic, this is related to previous hockey accident and cervical spine injury at age 18. 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 Patient had external sphincterotomy in 1990 and 1994, and has been managed with an exdwelling catheter. In the last 2 weeks, the patient has been noticing dark color urine with some odor. On 03/28 patient was noticing some chills, and on the morning of 03/29 he developed gross hematuria but he was able to void. Later on the patient was passing clots, and he was unable to void. He developed significant suprapubic discomfort, and presented to the ER for evaluation. Upon evaluation the patient was noted to have slight leukocytosis, and renal failure with a BUN of [address] of the abdomen and pelvis showed bilateral nonobstructive renal calculi, and bilateral atrophy of the renal parenchyma. His bladder was noted to be distended, and question the possibility of bladder mass. Patient was started on Levaquin for treatment of urinary tract infection, and he was seen by urology on consultation were in the patient had cystoscopy, and he was found to have hemorrhagic cystitis. The procedure was done on 03/31/2017. Yesterday, in p.m., patient developed an episode of unresponsiveness, patient was hypotensive, nursing staff felt he may have had a seizure, hence he was treated with Keppra, patient was unable to protect his airways, and I was notified about the patient at that time. Patient was given fluid boluses for hypotension, started on levo fed, and later on vasopressin was started. Patient was sent for a CT of the brain which came back negative for CVA. And he was later transferred back to the ICU were and we determined that the patient has a clear cut picture of septic shock from his urinary tract infection which turned out to be secondary to Enterobacter species. Patient was already on Levaquin, this was discontinued and he was placed on Zosyn and Merrem. Overnight, the patient remained relatively hypotensive in spite of significant high doses of norepinephrine, and vasopressin was later started. Presently the patient is on 75 mics of norepinephrine, and he is on 0.05 units of vasopressin. Blood pressure is marginal, many fluid boluses were given, and I believe he received over 10 L of fluids. His urine output has been excellent and he seems to have a polyuria picture. Renal functioning seems to be significantly improved in the last 24 hours. Lactic acid remains high this morning at 5.1. All his electrolytes were abnormal including low potassium which was corrected, calcium was also corrected, and his creatinine improved from 2.36 down to 1.50. Urine cultures were noted, but no blood cultures have been noted so far. Today I saw the patient in the ICU, remains on mechanical ventilation, his ventilator settings are tidal volume of 500, assist control rate of 20, FiO2 is down to 50%, and PEEP is at 5. ABG showed a pO2 of 136 pCO2 of 31 pH of 7.23, hence the patient was given more bicarb, and kept on the bicarb drip with 3 A of bicarb in 1 L of D5W running at 1 25 mL per hour. In spite of all of this, the patient is on small dose of propofol, he is arousable, and follows simple instructions. Seems to be very appropriate. Neurology-yanez, the patient was given Keppra, and EEG was ordered, it is not certain whether the patient truly had a seizure or not. Patient was reevaluated today on 04/02/2017, remains on mechanical ventilation, same vent setting, however his FiO2 is decreased down to 45%, tidal volume remains at 500, assist control rate is at 20, and PEEP is at 5. ABG this morning showed a pO2 of 103 pCO2 of 33 pH of 7.40. Hence, down significantly on the sodium bicarb drip, The patient on IV fluids, patient still requiring significant fluid boluses to maintain an adequate mean arterial blood pressure. His urine output has been excellent, he is putting out almost 300 mL per hour. Patient continues to have leukocytosis with WBC count of 36.3 hemoglobin is 11.5. Renal profile is basically almost back to normal. And his acute kidney injury has resolved. Sodium is elevated, at 147, hence I changed his IV fluid 0.45 instead of 0.9. His electrolytes were noted to be abnormal, and these were all being corrected as per protocol. Chest x-ray continues to show retrocardiac consolidation, and small left pleural effusion. I was able to review an old x-ray from 2011, apparently had some chronic scarring in the left lower lobe, and some atelectasis in the left retrocardiac area, but not as pronounced as noted on this present x-ray from this admission. Patient remains on norepinephrine at 75 g, he is also on vasopressin at 0.05 units. Reevaluated today on 04/03/2017, patient remains on mechanical ventilation, same ventilator settings as noted above with FiO2 of 45% tidal volume of 500 assist control rate of 20 and PEEP of 5. ABG showed a pO2 of 79 pCO2 of 32 pH of 7.42 hence the sodium bicarb drip was discontinued. Lactic acid is responding but slowly and today's lactic acid is 3.9. More fluid boluses were given today, continues to have significant urine output, and patient had a positive balance of 2 L in the last 24 hours. Albumin will be given today, his potassium and calcium are being corrected as per protocol. Renal functioning remains normal. However WBC count is up to 42.4, hemoglobin is 10.3, platelets are down to 88,000, hence I have discontinued his Lovenox. One blood culture from the showed Enterobacter, another blood culture showed Enterobacter and nonhemolytic strep. The nonhemolytic strep is probably a contaminant. Patient was on vancomycin, doubt if we need to restart vancomycin at this point , patient is being followed by infectious disease, remains presently on Merrem and Zosyn to cover Enterobacter and Pseudomonas. Blood pressure-yanez, the patient remains on 45 mics of norepinephrine, and 0.05 units of vasopressin. We are in the process of titrating the norepinephrine down since the blood pressure seems to be holding better today than it was in the last couple of days. All meds were reviewed, patient also remains on propofol, relatively small dose to keep him slightly sedated, but the patient is arousable, and follows instructions. Chest x-ray continues to show left lower lobe retrocardiac opacity which is I believe chronic. Nutrition-yanez the patient seems to be tolerating tube feeding well via nasogastric tube. The patient is seen again today 04/04/2017 in follow-up in the intensive care unit. He remains intubated on the mechanical ventilator with settings of assist control mode at a rate of 20, tidal volume 500, FiO2 45%, PEEP of 5. Morning blood gases reveal pO2 of 100, pCO2 30, pH 7.41 with a mixed acid-base abnormality including respiratory alkalosis and metabolic acidosis. The patient 's cultures were positive for Enterobacter aerogenes and pseudomonas aeruginosa in the urine, Enterobacter aerogenes nonhemolytic strep in the blood. He remains on meropenem and vancomycin. He is also on norepinephrine at 25 mcg/m, vasopressin at 0.05 units per minute, propofol at 11 mcg/kg/m, insulin at 7.5 units per hour. He is being nourished with Vital HP at 57 mL per hour which is goal. He has a 0.45 normal saline at 200 mL's per hour. He is alert and oriented and nods his head appropriately. The patient is seen again today 04/05/2017 in follow-up in the intensive care unit. He remains intubated and on mechanical ventilator. Current settings assist-control mode of rate of 20, tidal volume 500, FiO2 40% and a PEEP of 5. Morning arterial blood gases revealed a pO2 of 113 on 45% FiO2, pCO2 35, pH 7.36. He remains alert and oriented following simple commands by nodding his head yes and no appropriately. He remains on norepinephrine at 9 mcg/m, vasopressin at 0.05 units per minute, propofol at 10 mcg/kg/m, hydrocortisone at 12.5 mg per hour, insulin at 0.5 units per hour. He has 0.45 normal saline at 200 MLS per hour. He is being nourished with Vital HP at 57 mL per hour which is goal. He is receiving flushes of 30 mL every 4 hours. He remains on meropenem. Progress note dated 04/06/2017 This is a 51-year-old male with a history of respiratory failure secondary to overwhelming sepsis and septic shock from a urinary tract infection secondary to Enterobacter Jameson reason pseudomonas aeruginosa. Blood cultures were also positive for Enterobacter around kidneys. The patient is doing relatively well. His FiO2 and PEEP levels are low. His blood gases are reasonable. His weaning parameters today were fine and were thinking about extubating the patient. In addition, the patient has a history of hypoxemic respiratory failure severe metabolic derangements including lactic acidemia secondary to sepsis previous history of paraplegia with neurogenic bladder acute kidney injury secondary to septic shock and acute tubular necrosis and a history of kidney stones. The patient has had multiple surgeries for skin grafts of pressure sores as well as previous sphincterotomy and lithotripsy for kidney stones. Again the patient seemed be doing relatively well today. We'll stop his propofol. Local had an empty stomach. We'll give him a CPAP/PSV trial. We 'll check a cuff leak. We will do a rapid shallow breathing index. Everything looks good, trial of extubation. On 04/11/2017 I'm seeing this patient for a follow-up. As mentioned earlier the patient was treated for septic shock and he was aggressively resuscitated with IV fluids and currently is hemodynamically stable. Nevertheless he is in obvious fluid overload with increased edema in lower extremities and upper extremity is bilaterally and today's chest x-ray shows small bilateral pleural effusion which was not present on previous chest x-rays. ET tube is in a good location. As mentioned earlier the patient has failed extubation twice and the plan is to proceed with a tracheostomy tube insertion today. He will also need a PEG tube insertion. Hemodynamically the patient is still borderline hypotensive on 3 mics of levo fed for hemodynamic support. Nevertheless, he is producing more than 200 mL of urine output on an hourly basis. His sodium is elevated at 145 and the patient is receiving D5 water at the rate of 1 75 mL an hour. He is an assist-control mode of ventilation. Currently is on assist control of 22, tidal volume of 450, FiO2 of 40% and a PEEP of 5. His morning blood Showed a pH of 7.56 with a pCO2 of 34 and pO2 of 143. He is afebrile. The blood culture was positive for Enterobacter and the patient is on IV Merrem. Urine cultures positive for Enterobacter and Pseudomonas. As mentioned earlier, the patient is paraplegic. He has leg wounds bilaterally which are more like excoriation and some degree of skin sloughing due to his peripheral edema. He also has some similar findings on his coccyx. His white cell count is up from 42 down to 8.1 and it was essentially related to his sepsis. Clinically, the patient is awake. The patient is following commands and answering simple questions. His been off Diprivan for the past 24 hours. On 04/12/2017 I'm seeing this patient for a follow-up. The patient is awake while being on mechanical ventilator. He remains somewhat hypotensive. Overnight I was contacted the patient's pressor doses have been gradually increased up to 6 mics and the patient also spiked a temperature. Based on that I asked the patient to be recultured including blood and urine. I also asked ID to reevaluate the patient and vancomycin got admitted on an empiric basis. The patient was also started on vasopressin and an attempt to gradually wean off the norepinephrine infusion. Earlier this morning, I noted that the patient started having some diarrhea and there is obvious concern for C. diff colitis. Stool will be sent for C. diff evaluation. I also discussed the case with the thoracic surgeon and Dr. Montes was a bit hesitant to proceed with a PEG and trach specially with his ongoing hemodynamic instability and he opted to wait on the procedure for another 24-48 hours. Meanwhile, I noted that the patient seemed to have a good state of weaning parameters earlier this morning. I give him a spontaneous breathing trial with a pressure support of 5 and a PEEP of 5 and within 10 to any minutes into the trial the patient decompensated and became hypotensive and hypoxic and he went into respiratory distress. Based on that the spot is breathing trial was aborted and the patient was placed back on assist control mode. His hypernatremia is improving and the sodium level is improved. The patient received D5 water addition to free water through the NG. D5 water will be kept on nontender the patient has become progressively more edematous both in upper and lower extremities. He has also skin excoriation around his buttocks and lower extremities bilaterally and local wound care is being applied. Calcium level from this morning was at 6.2 and the patient was given it in part of calcium gluconate 1 g. A drop in hemoglobin was also noted down to 7.7 and this probably is dilutional. The patient is tolerating enteral feeding through his NG tube. The patient is seen again today 04/13/2017 in follow-up in the intensive care unit. He remains awake and alert and following commands. He unfortunately remains on the mechanical ventilator. Current settings are assist-control mode of 18, tidal volume 400, FiO2 40% and a PEEP of 5. Morning blood gases reveal a pO2 of 132, pCO2 31 and a pH of 7.47. Chest x-ray reveals bilateral infiltrates and pleural effusions but no significant interval change. He does continue to spike fevers up to 102.3 earlier this morning. Follow-up blood, urine and sputum cultures have been negative. He remains on meropenem and vancomycin. He still continues with issues with hypotension and is on vasopressin at 0.03 units per minute along with norepinephrine at 5 mcg/m. He is tolerating his tube feedings which are at 65 MLS per hour his goal. His hemoglobin remained stable at 8.5. Sodium 144, chloride 1:15. AST 312, ALT 186 , alk phos 327. An ultrasound of the gallbladder appeared to be within normal limits. There is moderate hepatic steatosis. Right-sided nephrolithiasis without evidence of hydronephrosis. Based on his continued temps and hypotension there no immediate plans for tracheostomy and PEG tube placement checked today. The patient is seen again today 04/14/2017 in follow-up in the intensive care unit. He remains awake and alert and following commands. He is responding appropriately. He remains intubated on the mechanical ventilator with vent settings of assist control mode of 18, tidal volume 400, FiO2 40% and a PEEP of 5. Morning blood gases reveal a P O2 of 118, pCO2 of 32, pH 7.46. White count 2.2. Hemoglobin 8.3. Creatinine 0.80. His temperature today was 100.7. He is slightly tachycardic. Follow-up urine culture is positive for Kim. He was initiated on micafungin. Sputum cultures reveal no growth to date. Catheter tip reveals no growth. Blood cultures reveal no growth. There is a nondraining wound at the base of his penis. The wounds on his lower extremities are dry. There is also a fluid collection in the right upper extremity via Doppler yesterday. He remains on ertapenem and vancomycin. He also remains on vasopressin at 0.03 units per minute, norepinephrine at 9 mcg/ m. Propofol remains off. On 04/15/2017 I'm seeing this patient for a follow-up. The ongoing active issue for now is his fever and hypotension. The patient was worked up extensively for the fever and ultimately the blood culture came back positive for Kim parapsilosis. Note that his urine culture was also positive for Kim. I had ordered to start the patient on micafungin and his been on the antifungal treatment for the past 24 hours. The exact source of the Kim is not clear although it could be the PICC line is present in the right upper extremity. In any rate this is a double-lumen PICC line and one of the ports is now functioning it's leaking at least 2, out and the tip will be sent also for cultures. The patient this morning is on 50 mics of norepinephrine infusion. The patient is also on physiologic dose vasopressin. He is having fever with a T-max of 101.3. At the same time, he is awake and alert. He is following commands. On the mechanical ventilation and no changes on his vent settings have been down. His is on assist-control mode of ventilation at the rate of 18, tidal volume 400, FiO2 of 40% and a PEEP of 5. Chest x-ray from yesterday showed no evidence of any pneumonia. The patient is small bilateral pleural effusion which remains essentially unchanged. ET tube remains in a good location. No significant secretions through the orotracheal tube. As far as his hemodynamics, the patient as mentioned is hypotensive on norepinephrine infusion however he is producing adequate amount of urine output. The patient has a normal renal function with a creatinine of 0.8. The skin examination shows multiple wounds in the lower extremities bilaterally at described earlier in my dictation. Appropriate dressings have been applied to his lower extremities bilaterally and his coccygeal area. He is tolerating tube feeds. His sodium level is again on the rise and the sodium level today is up to 149. There is a component of hyperchloremic hypernatremia. He is also having liquidy diet intake bowel movements in the order of 200-300 mL every 8 hours. We'll for C. diff evaluation has been negative. The patient is on enteral feeding and he is receiving vital high protein at the rate of 64 mL an hour. He is also receiving free water flushes 30 mL every 4 hours. Terms of antibiotic coverage, the patient is currently on micafungin. The patient is also on a combination of Invanz and IV vancomycin was discontinued by infectious disease and the patient was switched oral vancomycin in consideration for C. diff colitis despite the fact that the stool evaluation was negative for C. diff. The latest vancomycin level from yesterday was 20.3. On 04/16/2017 I'm seeing this patient for a follow-up. As mentioned earlier, the patient remains intubated on a mechanical ventilator with failure to wean. He is awake and alert and his communicating. He was found to have candidal sepsis and the patient was a she started on micafungin and following that he was switched to high-dose Diflucan. The PICC line in the right approximately was removed and a triple lumen cath in the left subclavian vein was inserted yesterday. He also has an art line. This morning he is on 15 mics of norepinephrine infusion. He is however having only low-grade fever. He is more stable compared to yesterday more awake and alert and more interactive. His blood pressure is improved and I think this would be a good time to start weaning his norepinephrine infusion. He is tolerating his tube feeds. He remains on a mechanical ventilator. No changes on the vent setting was done. Chest x-ray shows small better pleural effusion. It tube is in a good location. No evidence of any pneumothorax. There is a subclavian vein triple- lumen catheter in place. The patient's sodium level is gradually improving. The patient is on D5 water at the rate of 75 mL an hour. The white cell count is not elevated. Morning blood gases showed a pH of 7.43 with a pCO2 of 36 and pO2 of 95. The patient remains on a combination of ertapenem, IV Diflucan, and oral vancomycin. The liquidy diuretic stool/bowel movements have improved also. The patient has FM I S system in place. The liver function tests are gradually improving. Ocular phosphatase remains somewhat slightly elevated. The vancomycin level last check was on 04/14/2017 it was at 20.3. Is currently off IV vancomycin. On 04/17/2017, patient remains on mechanical ventilation, he is a failure to wean , awaiting eventually tracheostomy and PEG tube placement, however the patient has to demonstrate some hemodynamic stability before that could be done. Remains on about 8 g of norepinephrine, remains on 0.03 units of vasopressin, still receiving fluid boluses intermittently for low blood pressure. Today I restarted hydrocortisone again. Patient was started on micafungin by infectious disease because of his positive Kim in the blood cultures. Patient is tolerating tube feeds, remains on mechanical ventilation with the same vent settings, chest x-ray continues to show some left lower lobe atelectasis and possibly a small pleural effusion, left subclavian catheter is in place, labs were all reviewed. WBC count is 5.6 hemoglobin is 7.8 basic metabolic profile is normal ABG showed a pO2 of 125 pCO2 of 35 pH of 7.43. Liver profile was noted to be a bit elevated including elevated alkaline phosphatase. Albumin is 2.0. Patient was reevaluated today on 04/18/2017, remains on mechanical ventilation and failure to wean. Still showing hemodynamic instability, although we were able to get him off levo fed at least for the last few hours, and he remains on a small dose of vasopressin. Patient remains on hydrocortisone, his hemoglobin today is low and the patient will receive 2 units of packed RBCs. ABG this morning showed a pO2 of 116 pCO2 of 44 pH of 7.36, hence I placed the patient back on FiO2 of 45%. Hemoglobin is 6.2 today, and again patient received 2 units of packed RBCs no clear-cut evidence of active bleeding or GI bleeding, he has normal color stools and no blood noted in the nasogastric tube and no coffee-ground emesis. Screening for C. diff was negative. Patient was reevaluated today on 04/19/2017, remains on mechanical ventilation, however his hemodynamic status seems to be much better today, patient is off pressors, and his blood pressures seems to be holding quite nicely. patient is scheduled to undergo tracheostomy and PEG tube placement today. in the meantime I plan to keep him on all his antibiotics, antifungal therapy, hydrocortisone, and we'll give her more fluids in the form of D5W because of his hypernatremia. his ventilator settings are basically the same, ABG showed a pO2 of 104 pCO2 of 43 pH of 7.35. electrolytes were reviewed he has hypernatremia and hyperchloremia normal renal profile noted. his hemoglobin is holding at 8.0 WBC count is 5.1 today. chest x-ray is basically about the same showing chronic changes at the left base. Objective - Vital Signs Vital signs: Vital Signs Temp 98.4 F 04/19/17 04:00 Pulse 97 04/19/17 11:35 Resp 20 04/19/17 07:00 BP 118/80 04/19/17 07:00 Pulse Ox 96 04/19/17 07:00 Intake & Output 04/18/17 04/19/17 04/19/17 18:59 06:59 18:59 Intake Total 3349 1689 Output Total 1650 4810 Balance 1699 -3121 Weight 113.8 kg 108.1 kg Intake: IV 1123 1164 0.9 normal saline 240 50 Dextrose 5% in Water 1, 750 975 000 ml @ 75 mls/hr IV . [id number] [facility] Rx#:[id number] Pressure Bag 33 39 levETIRAcetam IV 1,000 mg 100 100 In Saline 1 100ml.bag @ 400 mls/hr IVPB Q12HR [facility] Rx#:[id number] Intake, IV Titration 425 125 Amount Dextrose 5% in Water 1, 75 000 ml @ 75 mls/hr IV . [id number] [facility] Rx#:[id number] Ertapenem 1 gm In Sodium 50 Chloride 0.9% 50 ml @ 100 mls/hr IVPB DAILY [facility] Rx #:[id number] Fluconazole in NaCl,Iso- 200 Osm 400 mg In Saline 1 200ml.bag @ 100 mls/hr IVPB DAILY@1200 [facility] Rx#: [id number] Potassium Chloride 20 meq 100 In Water For Injection 1 100ml.bag @ 50 mls/hr IVPB ONCE ONE Rx#: [id number] Potassium Phosphate 10 125 mmol In Sodium Chloride 0 .9% 250 ml @ 125 mls/hr IV ONCE ONE Rx#:[id number] Oral 120 Tube Feeding 761 300 Blood Product 620 Rc As-1 Unit 310 [id number] Rc As-1 Unit 310 [id number] Other 300 100 Output: Urine 1650 4060 Stool 750 Other: Voiding Method Indwelling Catheter Indwelling Catheter ABP, PAP, CO, CI - Last Documented Arterial Blood Pressure 114/49 - Exam Physical Exam: Revealed a 51-year-old white male, morbidly obese, on mechanical ventilation, sedated, in no distress at present. HEENT:[ Short obese neck. Neck is supple.] [No neck masses.] [No thyromegaly.] [No JVD.] PERRLA, EOMI, moist mucous membranes. Endotracheal tube is intact. Chest: [Diminished breath sounds at the bases, especially at the left base. no crackles nor rhonchi no wheezes.] Cardiac Exam: [Normal S1 and S2, no S3 gallop, no murmur.] Abdomen: [Obese, Soft, nontender, no megaly, no rebound, no guarding, normal bowel sounds.] Extremities: [No clubbing, no edema, no cyanosis. Significant muscle atrophy and wasting of muscles noted in lower extremities, patient is paraplegic.] Flexion contractures noted bilaterally. Neurological Exam: [No focal neurologic deficit. Except for paraplegia from the waist down. Lymphatics: No lymphadenopathy. Psychiatric: Normal mood, affect, and cannot fully assess mental status exam.] - Labs CBC & Chem 7: 04/19/17 04:05 04/19/17 04:05 Labs: Abnormal Lab Results - Last 24 Hours (Table) 04/18/17 04/18/17 04/18/17 Range/Units 07:15 12:24 18:32 RBC (4.30-5.90) m/uL Hgb (13.0-17.5) gm/dL Hct (39.0-53.0) % MCHC (31.0-37.0) g/dL RDW (11.5-15.5) % Lymphocytes # (1.0-4.8) k/uL ABG O2 Saturation (94-97) % Sodium (137-145) mmol/L Chloride (98-107) mmol/L BUN (9-20) mg/dL Glucose (74-99) mg/dL POC Glucose (mg/dL) 226 H 209 H (75-99) mg/dL Calcium (8.4-10.2) mg/dL Phosphorus (2.5-4.5) mg/dL AST (17-59) U/L ALT (21-72) U/L Alkaline Phosphatase (38-126) U/L Total Protein (6.3-8.2) g/dL Albumin (3.5-5.0) g/dL Crossmatch See Detail 04/18/17 04/19/17 04/19/17 Range/Units 23:11 04:05 04:05 RBC 2.83 L (4.30-5.90) m/uL Hgb 8.0 L D (13.0-17.5) gm/dL Hct 27.2 L (39.0-53.0) % MCHC 29.6 L (31.0-37.0) g/dL RDW 17.5 H (11.5-15.5) % Lymphocytes # 0.8 L (1.0-4.8) k/uL ABG O2 Saturation (94-97) % Sodium 150 H (137-145) mmol/L Chloride 117 H (98-107) mmol/L BUN 21 H (9-20) mg/dL Glucose 235 H (74-99) mg/dL POC Glucose (mg/dL) 204 H (75-99) mg/dL Calcium 6.9 L (8.4-10.2) mg/dL Phosphorus 2.1 L (2.5-4.5) mg/dL AST 79 H (17-59) U/L ALT 127 H (21-72) U/L Alkaline Phosphatase 316 H (38-126) U/L Total Protein 5.0 L (6.3-8.2) g/dL Albumin 2.1 L (3.5-5.0) g/dL Crossmatch 04/19/17 04/19/17 Range/Units 06:01 08:56 RBC (4.30-5.90) m/uL Hgb (13.0-17.5) gm/dL Hct (39.0-53.0) % MCHC (31.0-37.0) g/dL RDW (11.5-15.5) % Lymphocytes # (1.0-4.8) k/uL ABG O2 Saturation 98.0 H (94-97) % Sodium (137-145) mmol/L Chloride (98-107) mmol/L BUN (9-20) mg/dL Glucose (74-99) mg/dL POC Glucose (mg/dL) 242 H (75-99) mg/dL Calcium (8.4-10.2) mg/dL Phosphorus (2.5-4.5) mg/dL AST (17-59) U/L ALT (21-72) U/L Alkaline Phosphatase (38-126) U/L Total Protein (6.3-8.2) g/dL Albumin (3.5-5.0) g/dL Crossmatch Assessment and Plan Assessment: 1 acute septic shock secondary to urinary tract infection, acute cystitis secondary to Enterobacter aerogenes and pseudomonas aeruginosa as noted in the urine. His blood cultures are positive for Enterobacter. Blood cultures negative. He remains on meropenem, and the patient is on low-dose levo fed for blood pressure support . His acute systemic candidemia is another contributing factor to his sepsis. patient required hemodynamic support and pressors for a long. Time, however he has been off pressors now since last night. Off vasopressin and off norepinephrine. On 04/16/2017, the patient is being treated for systemic candidemia with IV Diflucan. The patient is having low-grade fever and his still pressor dependent. The PICC line has been removed and the tip was sent for culture. A triple lumen catheter was inserted in the left subclavian. Blood pressures improved. He is still having some low-grade fever and I think we should be able to start gradually weaning down the pressors. He remains on IV Invanz regarding a previous Enterobacter infection of the urine and positive septicemia. On 04/17/2017, patient remains on antibiotics, and antifungal therapy, still hemodynamically unstable for trach and PEG placement. Still unable to wean, remains on mechanical ventilation, and I have restarted back on hydrocortisone. Patient is still requiring significant amount of vasopressin and norepinephrin 04/19/2017, the major change is the fact that the patient is off norepinephrine and off vasopressin. Hence we'll plan to proceed with tracheostomy and PEG tube placement today. This is scheduled to be done this afternoon by Dr. Castillo. 2 acute hypoxic respiratory failure secondary to above. Failed extubation requiring reintubation. The plan is for probable tracheostomy on 04/11/2017, however the patient's procedure got canceled due to ongoing hemodynamic changes and decision opted to wait for another 24 hours today's further stable. Meanwhile, the patient was given another spontaneous breathing trial and he failed and based on that no attempts to extubate this patient were done. We are more convinced that he will need a PEG and trach at a later stage. The patient remains hemodynamically unstable and he is not ready to undergo the procedure yet. The procedure has been postponed until his sepsis is under better control. 3 acute metabolic, lactic acidosis secondary to 1, recovered 4 history of paraplegia and neurogenic bladder. 5 acute kidney injury secondary to sepsis and septic shock, recovered 6 history of nephrolithiasis/bilateral. 7 history of multiple surgeries including skin graft for pressure sores, right ureteroscopy with lithotripsy in 2005 and external sphincterotomy 1990 and 1994. 8 hypotension and the patient is still requiring pressors for blood pressure support 9 extensive edema in lower extremities bilaterally along with superficial scale ulcerations and excoriation and sloughing in the lower extremities and coccyx. 10 leukocytosis, improved 11 acute respiratory alkalosis, improving 12 small bilateral pleural effusions. 13 abnormal LFTs with elevation and alkaline phosphatase, and ultrasound the gallbladder shows no evidence of any cholecystitis, and the liver function tests are being monitored . Rule out drug effect. Rule out Merrem affecting the patient has been switched to Invanz. On today's evaluation, LFTs remains somewhat elevated although they're improving compared to last evaluation. 14 hypernatremia, recurrent 15 anemia, stable hemoglobin for now. 16 diarrhea, possibly antibiotic induced. There is no evidence of any C. diff colitis. Recommendation: Continue ventilatory support, hemodynamic support, antibiotics and antifungal therapy, patient remains on Invanz, fluconazole, restarted Solu- Cortef, more fluid boluses will be given and the patient remains critically ill. Plan to proceed with tracheostomy and PEG tube placement today. Discussed his condition with family at bedside. Eventually I plan to send the patient to select care specialty once this is done. Critical care time is 40 minutes. Time with Patient: Greater than 30
[2017-04-19] MEDS: FLUCONAZOLE IN NACL,ISO-OSM 400 MG in SALINE 1 200ML.BAG IVPB SCH (13:14)
[2017-04-19] MEDS: MENTHOL-ZINC OXIDE OINT 113 GM TUBE TOPICAL PRN (13:19)
[2017-04-19 13:20] LABS: Glucose,Whole Blood 200 mg/dL (75-99)
[2017-04-19] MEDS ORDERED: PHENYLEPHRINE-0.9% NACL SYG 1 MG/10 ML SYRINGE ONE (13:52)
[2017-04-19] MEDS ORDERED: MIDAZOLAM 2 MG/2 ML VIAL ONE (13:52)
[2017-04-19] MEDS ORDERED: ROCURONIUM BROMIDE 10 MG/ML 10 ML VIAL IV ONE (13:52)
[2017-04-19] MEDS ORDERED: IV FLUID CONTINUATION 400 ML IV ONE ×2 (13:52)
--- NOTE | 2017-04-19 16:09 | P.PCN ---
Date of Procedure: 04/19/17 Preoperative Diagnosis: Respiratory failure with inability to wean from vent Postoperative Diagnosis: Same Procedure(s) Performed: Tracheostomy Anesthesia: JUSTIN Surgeon: Will Castillo Estimated Blood Loss (ml): 20 Pathology: none sent Condition: stable Disposition: no change Indications for Procedure: The patient has numerous comorbidities and has been unable to wean from the vent Operative Findings: No obvious abnormalities have been seen. Description of Procedure: With the patient in supine position under benefit of IV sedation, already intubated, we prepped and draped and sent her fashion. We made a small transverse incision 2 fingerbreadths above the sternal notch. We incised suprafascial fascias transversely. We split strap muscles in midline. We divided the isthmus of the thyroid with electrocautery. We exposed the trachea. We placed the first tracheal ring on traction with a tracheal hook. We incised left second through the fourth tracheal rings longitudinally. We dilated the opening and placed through it a #8 Shiley proximal XLT tube due to his obesity, the ET tube having been brought up above this opening. The balloon was inflated and well occluded the trachea with the patient ventilating easily with good tidal volumes. Hemostasis was excellent. The corners of the incision were closed with 3-0 nylon. These sutures were utilized to secure the flange of the trach tube. Sterile dressings were applied. The patient tolerated the procedure well. We then proceeded with PEG tube insertion.
--- NOTE | 2017-04-19 16:13 | P.PCN ---
Date of Procedure: 04/19/17 Preoperative Diagnosis: Inability to swallow secondary to respiratory failure and vent dependency Postoperative Diagnosis: Same Procedure(s) Performed: Insertion of percutaneous endoscopic gastrostomy tube Anesthesia: ELSYA Surgeon: Will Castillo Estimated Blood Loss (ml): 5 Pathology: none sent Condition: stable Disposition: ICU Indications for Procedure: The patient is vent dependent and requires nutrition. Operative Findings: No anatomic abnormalities were seen. Description of Procedure: With the patient spine position, under benefit of ongoing IV sedation, we passed the endoscope under direct visualization. We traversed the esophagus and entered the stomach. The stomach was insufflated. The abdomen, having already been prepped, was pressed to isolated an area just below the left costal margin corresponding with the anterior wall of stomach. A quarter inch incision was made in this spot. Needle and trocar were placed directly into the stomach through this incision. The inner trocar was removed and a guidewire placed through the needle. This guidewire was grasped with a snare through the scope. It was brought out through the mouth. Retrograde over this we placed the PEG tube. When it exited the anterior abdominal wall it was grasped and used as traction to bring the PEG tube into position. It was followed down with the endoscope until the mushroom tip was abutting the gastric mucosa. All possible air was removed. The scope was removed. Appropriate adapters were placed on the PEG tube. The patient tolerated the procedure well and was returned to intensive care in stable condition.
[2017-04-19] MEDS: ACETAMINOPHEN TAB 325 MG TAB PO PRN (17:11)
[2017-04-19] MEDS: BISACODYL 10 MG SUPP RECTAL SCH (17:12)
[2017-04-19] MEDS: LACTATED RINGERS 1,000 ML IV SCH (17:12)
[2017-04-19] MEDS: LACTOBACILLUS ACIDOPH & BULGAR 1 EACH PACKET PO SCH ×4 (17:12→21:56)
[2017-04-19 17:26] LABS: Glucose,Whole Blood 204 mg/dL (75-99)
[2017-04-19] MEDS: DEXTROSE 5% IN WATER 1,000 ML IV SCH ×3 (17:37→18:17)
[2017-04-19] MEDS: SODIUM CHLORIDE 0.9% 99 ML with VASOPRESSIN 20 UNIT IV SCH ×4 (18:18→18:19)
--- NOTE | 2017-04-19 21:33 | PN ---
PROGRESS NOTE DATE OF SERVICE: 04/19/2017. REASON FOR FOLLOWUP: 1. Enterobacter UTI and bacteremia. 2. Kim parapsilosis sepsis PICC line related. INTERVAL HISTORY: The patient is hemodynamically stable. He was taken to the OR, status post trach and PEG. Tolerated the procedure. The patient was seen post trach and PEG. He was slightly awake and did answer yes or no by shaking his head to some of the questions asked. EXAMINATION: Blood pressure is 115/57 with a pulse of 105, temperature of 98. He is 95% on 45% trach collar. General description is a middle-aged male lying in bed in no distress. Respiratory system unlabored breathing with decreased breath sounds in the bases. HEART: S1, S2. Regular rate and rhythm. Abdomen soft, no tenderness. LABS: Hemoglobin is 8, with white count 5.1, BUN of 21, creatinine 0.71. Blood culture repeat has been negative so far. DIAGNOSTIC IMPRESSION AND PLAN: 1. Patient with Enterobacter bacteremia and UTI for which the patient is currently on Invanz. 2. Patient with Kim parapsilosis PICC line related sepsis. Repeat blood culture has been negative/ already removed. Currently on Diflucan that will be continued. Continue supportive care. MMODL / IJN: [id number] /
[2017-04-20 00:17] LABS: Glucose,Whole Blood 160 mg/dL (75-99)
[2017-04-20] MEDS: HYDROCORTISONE SUCCINATE 100 MG/2 ML VIAL IV SCH ×3 (00:49→17:46)
[2017-04-20] MEDS: HEPARIN SODIUM,PORCINE 5,000 UNIT/ML 1 ML VIAL SQ SCH ×3 (00:50→17:46)
[2017-04-20] MEDS: INSULIN ASPART 100 UNIT/ML 1 ML 10 ML VIAL SQ SCH ×4 (00:55→17:54)
[2017-04-20] MEDS: IPRATROPIUM-ALBUTEROL 3 ML NEB INHALATION SCH ×6 (02:59→23:06)
[2017-04-20] MEDS: SODIUM CHLORIDE 0.9% 99 ML with VASOPRESSIN 20 UNIT IV SCH ×4 (03:11→19:47)
[2017-04-20] MEDS: DEXTROSE 5% IN WATER 1,000 ML IV SCH ×4 (03:51→18:19)
[2017-04-20 05:54] LABS: Anisocytosis Slight; Basophils % (A) 0 %; Eosinophils % (A) 0 %; HCT 26.2 % (39.0-53.0); HGB 7.8 gm/dL (13.0-17.5); Hypochromasia Marked; Lymphocytes # (A) 0.7 k/uL (1.0-4.8); Lymphocytes % (A) 14 %; MCH 28.7 pg (25.0-35.0); MCHC 29.9 g/dL (31.0-37.0); MCV 95.7 fL (80.0-100.0); Macrocytosis Slight; Mean Platelet Volume 8.8; Monocytes # (A) 0.3 k/uL (0-1.0); Monocytes % (A) 6 %; Neutrophils # (A) 3.7 k/uL (1.3-7.7); Neutrophils % (A) 78 %; Platelet Count 187 k/uL (150-450); Poikilocytosis Slight; RBC 2.74 m/uL (4.30-5.90); RDW 19.1 % (11.5-15.5); WBC 4.8 k/uL (3.8-10.6)
[2017-04-20 06:22] LABS: Glucose,Whole Blood 148 mg/dL (75-99)
[2017-04-20 06:23] LABS: ALT 162 U/L (21-72); AST 78 U/L (17-59); Albumin 2.1 g/dL (3.5-5.0); Alkaline Phosphatase 272 U/L (38-126); Anion Gap 8 mmol/L; Blood Urea Nitrogen 18 mg/dL (9-20); Calcium 6.7 mg/dL (8.4-10.2); Carbon Dioxide 27 mmol/L (22-30); Chloride 117 mmol/L (98-107); Glucose 150 mg/dL (74-99); Magnesium 1.7 mg/dL (1.6-2.3); Sodium 152 mmol/L (137-145); Total Bilirubin 0.7 mg/dL (0.2-1.3)
[2017-04-20 06:40] LABS: Potassium 2.8 mmol/L (3.5-5.1)
[2017-04-20] MEDS ORDERED: Potassium Replacement Protocol 1 EACH MISC MISCELLANE PRN (06:42)
[2017-04-20 08:05] LABS: ABG Base Excess 0.9 mmol/L; ABG HCO3 25 mmol/L (21-25); ABG PCO2 44 mmHg (35-45); ABG PH 7.38 (7.35-7.45); ABG PO2 99 mmHg (83-108); ABG TCO2 27 mmol/L (19-24)
--- NOTE | 2017-04-20 09:12 | P.PN ---
Subjective Progress Note Date: 04/20/17 Principal diagnosis: Acute septic shock secondary to urinary tract infection. Acute cystitis secondary to Enterobacter aerogenes and Pseudomonas aeruginosa in the urine. Acute hypoxic respiratory failure requiring mechanical ventilation with failure to wean. Inability to swallow secondary to respiratory failure and mechanical vent dependency. Continued hypotension requiring pressor support. New-onset seizure disorder. History of quadriplegia, neurogenic bladder, intermittent urinary retention with self-catheterization, GERD, kidney stones, coccygeal ulcers with skin grafts. POD #1 placement of tracheostomy, #8 Shiley proximal XLT. POD #1 insertion of percutaneous endoscopic gastrostomy tube. He is awake and alert. He is nodding his head appropriately to yes and no questions. He remains with mechanical ventilator support, tracheostomy is intact. Medications per PEG tube. Objective - Vital Signs Vital signs: Vital Signs Temp 98 F 04/20/17 04:00 Pulse 81 04/20/17 07:21 Resp 25 H 04/20/17 07:00 BP 111/61 04/20/17 07:00 Pulse Ox 95 04/20/17 01:00 Intake & Output 04/19/17 04/20/17 04/20/17 18:59 06:59 18:59 Intake Total 1508 1423 Output Total 2603 2300 Balance -1095 -877 Weight 109.7 kg Intake: IV 1408 1423 0.9 normal saline 40 Dextrose 5% in Water 1, 1275 1250 000 ml @ 125 mls/hr IV . Q8H MANDA Rx#:[id number] Pressure Bag 33 33 levETIRAcetam IV 1,000 mg 100 100 In Saline 1 100ml.bag @ 400 mls/hr IVPB Q12HR MANDA Rx#:[id number] Intake, IV Titration 100 Amount Fluconazole in NaCl,Iso- 100 Osm 400 mg In Saline 1 200ml.bag @ 100 mls/hr IVPB DAILY@1200 MANDA Rx#: [id number] Output: Urine 2600 2300 Estimated Blood Loss 3 Other: Voiding Method Indwelling Catheter Indwelling Catheter ABP, PAP, CO, CI - Last Documented Arterial Blood Pressure 115/56 - Constitutional General appearance: Present: cooperative, no acute distress, obese - EENT ENT: Present: hearing grossly normal - Neck Details: No JVD, neck is supple. No lymphadenopathy. - Respiratory Details: Lung sounds essentially clear throughout, diminished was bilateral bases. Respirations are symmetrical and nonlabored on mechanical ventilator support. Current ventilator settings are as follows: AC 18, TV 400, FiO2 45%, PEEP 5. Tracheostomy #8 Shiley proximal XLT midline and intact, sutures in place. Oxygen saturation is 96% with 45% FiO2. - Cardiovascular Details: Regular rhythm and rate. S1 and S2 present, negative for S3, gallop or murmur. Bedside telemetry showing sinus tachycardia heart rate 105. +1 edema to his bilateral lower extremities. Knee-high CANDELARIO hose and sequential compression devices in place to his bilateral lower extremities. Right radial arterial line and right subclavian triple-lumen present. - Gastrointestinal Gastrointestinal Comment(s): Abdomen is soft, nontender and nondistended. Obese. Active bowel sounds to all 4 abdominal quadrants. PEG tube site clean dry and intact. Tube feedings are on hold for 24 hours post PEG tube placement. Loose brown diarrhea. C. diff result pending. - Genitourinary Genitourinary Comment(s): Mclaughlin catheter for accurate I&O. Clear yellow urine. - Neurologic Neurologic Comment(s): Following some simple commands appropriately, nodding his head to yes and no questions. - Musculoskeletal Musculoskeletal Comment(s): Quadriplegic. - Allied health notes Allied health notes reviewed: nursing - Labs CBC & Chem 7: 04/20/17 05:30 04/20/17 05:30 Labs: Abnormal Lab Results - Last 24 Hours (Table) 04/19/17 04/19/17 04/19/17 Range/Units 08:56 13:17 17:23 RBC (4.30-5.90) m/uL Hgb (13.0-17.5) gm/dL Hct (39.0-53.0) % MCHC (31.0-37.0) g/dL RDW (11.5-15.5) % Lymphocytes # (1.0-4.8) k/uL ABG Total CO2 (19-24) mmol/L ABG O2 Saturation 98.0 H (94-97) % Sodium (137-145) mmol/L Potassium (3.5-5.1) mmol/L Chloride (98-107) mmol/L Creatinine (0.66-1.25) mg/dL Glucose (74-99) mg/dL POC Glucose (mg/dL) 200 H 204 H (75-99) mg/dL Calcium (8.4-10.2) mg/dL AST (17-59) U/L ALT (21-72) U/L Alkaline Phosphatase (38-126) U/L Total Protein (6.3-8.2) g/dL Albumin (3.5-5.0) g/dL 04/20/17 04/20/17 04/20/17 Range/Units 00:15 05:30 05:30 RBC 2.74 L (4.30-5.90) m/uL Hgb 7.8 L (13.0-17.5) gm/dL Hct 26.2 L (39.0-53.0) % MCHC 29.9 L (31.0-37.0) g/dL RDW 19.1 H (11.5-15.5) % Lymphocytes # 0.7 L (1.0-4.8) k/uL ABG Total CO2 (19-24) mmol/L ABG O2 Saturation (94-97) % Sodium 152 H (137-145) mmol/L Potassium 2.8 L* (3.5-5.1) mmol/L Chloride 117 H (98-107) mmol/L Creatinine 0.63 L (0.66-1.25) mg/dL Glucose 150 H (74-99) mg/dL POC Glucose (mg/dL) 160 H (75-99) mg/dL Calcium 6.7 L (8.4-10.2) mg/dL AST 78 H (17-59) U/L ALT 162 H (21-72) U/L Alkaline Phosphatase 272 H (38-126) U/L Total Protein 5.0 L (6.3-8.2) g/dL Albumin 2.1 L (3.5-5.0) g/dL 04/20/17 04/20/17 Range/Units 06:19 07:56 RBC (4.30-5.90) m/uL Hgb (13.0-17.5) gm/dL Hct (39.0-53.0) % MCHC (31.0-37.0) g/dL RDW (11.5-15.5) % Lymphocytes # (1.0-4.8) k/uL ABG Total CO2 27 H (19-24) mmol/L ABG O2 Saturation 98.0 H (94-97) % Sodium (137-145) mmol/L Potassium (3.5-5.1) mmol/L Chloride (98-107) mmol/L Creatinine (0.66-1.25) mg/dL Glucose (74-99) mg/dL POC Glucose (mg/dL) 148 H (75-99) mg/dL Calcium (8.4-10.2) mg/dL AST (17-59) U/L ALT (21-72) U/L Alkaline Phosphatase (38-126) U/L Total Protein (6.3-8.2) g/dL Albumin (3.5-5.0) g/dL Microbiology - Last 24 Hours (Table) 04/18/17 13:20 Blood Culture - Preliminary Blood No Growth after 24 hours - Imaging and Cardiology Chest x-ray: image reviewed Assessment and Plan (1) Acute urinary tract infection Current Visit: Yes Status: Acute Code(s): N39.0 - URINARY TRACT INFECTION, SITE NOT SPECIFIED SNOMED Code(s): 085475567 (2) History of quadriplegia Current Visit: Yes Status: Chronic Code(s): Z86.69 - PERSONAL HISTORY OF DIS OF THE NERVOUS SYS AND SENSE ORGANS SNOMED Code(s): 829355158 (3) History of nephrolithiasis Current Visit: Yes Status: Chronic Code(s): Z87.442 - PERSONAL HISTORY OF URINARY CALCULI SNOMED Code(s): 934074437 (4) GERD (gastroesophageal reflux disease) Current Visit: Yes Status: Chronic Code(s): K21.9 - GASTRO-ESOPHAGEAL REFLUX DISEASE WITHOUT ESOPHAGITIS SNOMED Code(s): 106151315 (5) Acute respiratory failure requiring reintubation Current Visit: Yes Status: Acute Code(s): J96.00 - ACUTE RESPIRATORY FAILURE , UNSP W HYPOXIA OR HYPERCAPNIA SNOMED Code(s): 748094841 (6) Lactic acidosis Current Visit: Yes Status: Resolved Code(s): E87.2 - ACIDOSIS SNOMED Code( s): 96133850 (7) Seizure Current Visit: Yes Status: Acute Code(s): R56.9 - UNSPECIFIED CONVULSIONS SNOMED Code(s): 78803356 (8) Septic shock due to Pseudomonas species Current Visit: Yes Status: Acute Code(s): A41.52 - SEPSIS DUE TO PSEUDOMONAS ; R65.21 - SEVERE SEPSIS WITH SEPTIC SHOCK SNOMED Code(s): 17445853 (9) Toxic metabolic encephalopathy Current Visit: Yes Status: Resolved Code(s): G92 - TOXIC ENCEPHALOPATHY SNOMED Code(s): 265158849 Plan: 1. Routine tracheostomy care, pulmonary management per Dr. Guadalupe's recommendations. 2. Restart tube feeding per dietitian's recommendations via PEG tube after 24 hours of PEG tube being placed. 3. Antibiotic management per infectious disease. 4. Comorbid disease process management per primary care services. 5. We will follow the patient on a when necessary status and he is able to transfer to select specialty when okay with primary care. Time with Patient: Less than 30
[2017-04-20] MEDS ORDERED: SODIUM CHLORIDE 0.9% 1,000 ML IV ONE (09:13)
--- NOTE | 2017-04-20 09:28 | XR ---
EXAMINATION TYPE: XR chest 1V portable DATE OF EXAM: 04/20/2017 COMPARISON: 04/19/2017 HISTORY: Difficulty breathing TECHNIQUE: Single frontal view of the chest is obtained. FINDINGS: Tracheostomy tube now seen. NG and ET tubes. Left-sided central line stable. There is a la rge area of consolidation and pleural effusion on the left eye small area of consolidation pleural ef fusion on the right. Heart is prominent. No pneumothorax. Mild central venous congestion not excluded . IMPRESSION: 1. Bilateral infiltrate and pleural effusion greater on the left. Pneumonia, Endobronchial lesion or mucous plug in the differential diagnosis with superimposed pleural effusion.
[2017-04-20] MEDS: ERTAPENEM 1 GM in SODIUM CHLORIDE 0.9% 50 ML IVPB SCH (10:13)
[2017-04-20] MEDS: CHLORHEXIDINE GLUCONATE 15 ML CUP MUCOUS MEM SCH ×2 (10:13→20:37)
[2017-04-20] MEDS: LACTOBACILLUS ACIDOPH & BULGAR 1 EACH PACKET PO SCH ×4 (10:14→22:24)
[2017-04-20] MEDS: levETIRAcetam IV 1,000 MG in SALINE 1 100ML.BAG IVPB SCH ×2 (10:14→20:55)
[2017-04-20] MEDS: PANTOPRAZOLE 40 MG/10 ML VIAL IV SCH (10:14)
[2017-04-20] MEDS: MENTHOL-ZINC OXIDE OINT 113 GM TUBE TOPICAL PRN (10:15)
--- NOTE | 2017-04-20 10:38 | P.PN ---
Subjective Progress Note Date: 04/20/17 Principal diagnosis: Acute septic shock secondary to acute urinary tract infection. And acute fungemia This is a 51-year-old white male, paraplegic, this is related to previous hockey accident and cervical spine injury at age 18. 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 Patient had external sphincterotomy in 1990 and 1994, and has been managed with an exdwelling catheter. In the last 2 weeks, the patient has been noticing dark color urine with some odor. On 03/28 patient was noticing some chills, and on the morning of 03/29 he developed gross hematuria but he was able to void. Later on the patient was passing clots, and he was unable to void. He developed significant suprapubic discomfort, and presented to the ER for evaluation. Upon evaluation the patient was noted to have slight leukocytosis, and renal failure with a BUN of [address] of the abdomen and pelvis showed bilateral nonobstructive renal calculi, and bilateral atrophy of the renal parenchyma. His bladder was noted to be distended, and question the possibility of bladder mass. Patient was started on Levaquin for treatment of urinary tract infection, and he was seen by urology on consultation were in the patient had cystoscopy, and he was found to have hemorrhagic cystitis. The procedure was done on 03/31/2017. Yesterday, in p.m., patient developed an episode of unresponsiveness, patient was hypotensive, nursing staff felt he may have had a seizure, hence he was treated with Keppra, patient was unable to protect his airways, and I was notified about the patient at that time. Patient was given fluid boluses for hypotension, started on levo fed, and later on vasopressin was started. Patient was sent for a CT of the brain which came back negative for CVA. And he was later transferred back to the ICU were and we determined that the patient has a clear cut picture of septic shock from his urinary tract infection which turned out to be secondary to Enterobacter species. Patient was already on Levaquin, this was discontinued and he was placed on Zosyn and Merrem. Overnight, the patient remained relatively hypotensive in spite of significant high doses of norepinephrine, and vasopressin was later started. Presently the patient is on 75 mics of norepinephrine, and he is on 0.05 units of vasopressin. Blood pressure is marginal, many fluid boluses were given, and I believe he received over 10 L of fluids. His urine output has been excellent and he seems to have a polyuria picture. Renal functioning seems to be significantly improved in the last 24 hours. Lactic acid remains high this morning at 5.1. All his electrolytes were abnormal including low potassium which was corrected, calcium was also corrected, and his creatinine improved from 2.36 down to 1.50. Urine cultures were noted, but no blood cultures have been noted so far. Today I saw the patient in the ICU, remains on mechanical ventilation, his ventilator settings are tidal volume of 500, assist control rate of 20, FiO2 is down to 50%, and PEEP is at 5. ABG showed a pO2 of 136 pCO2 of 31 pH of 7.23, hence the patient was given more bicarb, and kept on the bicarb drip with 3 A of bicarb in 1 L of D5W running at 1 25 mL per hour. In spite of all of this, the patient is on small dose of propofol, he is arousable, and follows simple instructions. Seems to be very appropriate. Neurology-yanez, the patient was given Keppra, and EEG was ordered, it is not certain whether the patient truly had a seizure or not. Patient was reevaluated today on 04/02/2017, remains on mechanical ventilation, same vent setting, however his FiO2 is decreased down to 45%, tidal volume remains at 500, assist control rate is at 20, and PEEP is at 5. ABG this morning showed a pO2 of 103 pCO2 of 33 pH of 7.40. Hence, down significantly on the sodium bicarb drip, The patient on IV fluids, patient still requiring significant fluid boluses to maintain an adequate mean arterial blood pressure. His urine output has been excellent, he is putting out almost 300 mL per hour. Patient continues to have leukocytosis with WBC count of 36.3 hemoglobin is 11.5. Renal profile is basically almost back to normal. And his acute kidney injury has resolved. Sodium is elevated, at 147, hence I changed his IV fluid 0.45 instead of 0.9. His electrolytes were noted to be abnormal, and these were all being corrected as per protocol. Chest x-ray continues to show retrocardiac consolidation, and small left pleural effusion. I was able to review an old x-ray from 2011, apparently had some chronic scarring in the left lower lobe, and some atelectasis in the left retrocardiac area, but not as pronounced as noted on this present x-ray from this admission. Patient remains on norepinephrine at 75 g, he is also on vasopressin at 0.05 units. Reevaluated today on 04/03/2017, patient remains on mechanical ventilation, same ventilator settings as noted above with FiO2 of 45% tidal volume of 500 assist control rate of 20 and PEEP of 5. ABG showed a pO2 of 79 pCO2 of 32 pH of 7.42 hence the sodium bicarb drip was discontinued. Lactic acid is responding but slowly and today's lactic acid is 3.9. More fluid boluses were given today, continues to have significant urine output, and patient had a positive balance of 2 L in the last 24 hours. Albumin will be given today, his potassium and calcium are being corrected as per protocol. Renal functioning remains normal. However WBC count is up to 42.4, hemoglobin is 10.3, platelets are down to 88,000, hence I have discontinued his Lovenox. One blood culture from the showed Enterobacter, another blood culture showed Enterobacter and nonhemolytic strep. The nonhemolytic strep is probably a contaminant. Patient was on vancomycin, doubt if we need to restart vancomycin at this point , patient is being followed by infectious disease, remains presently on Merrem and Zosyn to cover Enterobacter and Pseudomonas. Blood pressure-yanez, the patient remains on 45 mics of norepinephrine, and 0.05 units of vasopressin. We are in the process of titrating the norepinephrine down since the blood pressure seems to be holding better today than it was in the last couple of days. All meds were reviewed, patient also remains on propofol, relatively small dose to keep him slightly sedated, but the patient is arousable, and follows instructions. Chest x-ray continues to show left lower lobe retrocardiac opacity which is I believe chronic. Nutrition-yanez the patient seems to be tolerating tube feeding well via nasogastric tube. The patient is seen again today 04/04/2017 in follow-up in the intensive care unit. He remains intubated on the mechanical ventilator with settings of assist control mode at a rate of 20, tidal volume 500, FiO2 45%, PEEP of 5. Morning blood gases reveal pO2 of 100, pCO2 30, pH 7.41 with a mixed acid-base abnormality including respiratory alkalosis and metabolic acidosis. The patient 's cultures were positive for Enterobacter aerogenes and pseudomonas aeruginosa in the urine, Enterobacter aerogenes nonhemolytic strep in the blood. He remains on meropenem and vancomycin. He is also on norepinephrine at 25 mcg/m, vasopressin at 0.05 units per minute, propofol at 11 mcg/kg/m, insulin at 7.5 units per hour. He is being nourished with Vital HP at 57 mL per hour which is goal. He has a 0.45 normal saline at 200 mL's per hour. He is alert and oriented and nods his head appropriately. The patient is seen again today 04/05/2017 in follow-up in the intensive care unit. He remains intubated and on mechanical ventilator. Current settings assist-control mode of rate of 20, tidal volume 500, FiO2 40% and a PEEP of 5. Morning arterial blood gases revealed a pO2 of 113 on 45% FiO2, pCO2 35, pH 7.36. He remains alert and oriented following simple commands by nodding his head yes and no appropriately. He remains on norepinephrine at 9 mcg/m, vasopressin at 0.05 units per minute, propofol at 10 mcg/kg/m, hydrocortisone at 12.5 mg per hour, insulin at 0.5 units per hour. He has 0.45 normal saline at 200 MLS per hour. He is being nourished with Vital HP at 57 mL per hour which is goal. He is receiving flushes of 30 mL every 4 hours. He remains on meropenem. Progress note dated 04/06/2017 This is a 51-year-old male with a history of respiratory failure secondary to overwhelming sepsis and septic shock from a urinary tract infection secondary to Enterobacter Jameson reason pseudomonas aeruginosa. Blood cultures were also positive for Enterobacter around kidneys. The patient is doing relatively well. His FiO2 and PEEP levels are low. His blood gases are reasonable. His weaning parameters today were fine and were thinking about extubating the patient. In addition, the patient has a history of hypoxemic respiratory failure severe metabolic derangements including lactic acidemia secondary to sepsis previous history of paraplegia with neurogenic bladder acute kidney injury secondary to septic shock and acute tubular necrosis and a history of kidney stones. The patient has had multiple surgeries for skin grafts of pressure sores as well as previous sphincterotomy and lithotripsy for kidney stones. Again the patient seemed be doing relatively well today. We'll stop his propofol. Local had an empty stomach. We'll give him a CPAP/PSV trial. We 'll check a cuff leak. We will do a rapid shallow breathing index. Everything looks good, trial of extubation. On 04/11/2017 I'm seeing this patient for a follow-up. As mentioned earlier the patient was treated for septic shock and he was aggressively resuscitated with IV fluids and currently is hemodynamically stable. Nevertheless he is in obvious fluid overload with increased edema in lower extremities and upper extremity is bilaterally and today's chest x-ray shows small bilateral pleural effusion which was not present on previous chest x-rays. ET tube is in a good location. As mentioned earlier the patient has failed extubation twice and the plan is to proceed with a tracheostomy tube insertion today. He will also need a PEG tube insertion. Hemodynamically the patient is still borderline hypotensive on 3 mics of levo fed for hemodynamic support. Nevertheless, he is producing more than 200 mL of urine output on an hourly basis. His sodium is elevated at 145 and the patient is receiving D5 water at the rate of 1 75 mL an hour. He is an assist-control mode of ventilation. Currently is on assist control of 22, tidal volume of 450, FiO2 of 40% and a PEEP of 5. His morning blood Showed a pH of 7.56 with a pCO2 of 34 and pO2 of 143. He is afebrile. The blood culture was positive for Enterobacter and the patient is on IV Merrem. Urine cultures positive for Enterobacter and Pseudomonas. As mentioned earlier, the patient is paraplegic. He has leg wounds bilaterally which are more like excoriation and some degree of skin sloughing due to his peripheral edema. He also has some similar findings on his coccyx. His white cell count is up from 42 down to 8.1 and it was essentially related to his sepsis. Clinically, the patient is awake. The patient is following commands and answering simple questions. His been off Diprivan for the past 24 hours. On 04/12/2017 I'm seeing this patient for a follow-up. The patient is awake while being on mechanical ventilator. He remains somewhat hypotensive. Overnight I was contacted the patient's pressor doses have been gradually increased up to 6 mics and the patient also spiked a temperature. Based on that I asked the patient to be recultured including blood and urine. I also asked ID to reevaluate the patient and vancomycin got admitted on an empiric basis. The patient was also started on vasopressin and an attempt to gradually wean off the norepinephrine infusion. Earlier this morning, I noted that the patient started having some diarrhea and there is obvious concern for C. diff colitis. Stool will be sent for C. diff evaluation. I also discussed the case with the thoracic surgeon and Dr. Montes was a bit hesitant to proceed with a PEG and trach specially with his ongoing hemodynamic instability and he opted to wait on the procedure for another 24-48 hours. Meanwhile, I noted that the patient seemed to have a good state of weaning parameters earlier this morning. I give him a spontaneous breathing trial with a pressure support of 5 and a PEEP of 5 and within 10 to any minutes into the trial the patient decompensated and became hypotensive and hypoxic and he went into respiratory distress. Based on that the spot is breathing trial was aborted and the patient was placed back on assist control mode. His hypernatremia is improving and the sodium level is improved. The patient received D5 water addition to free water through the NG. D5 water will be kept on nontender the patient has become progressively more edematous both in upper and lower extremities. He has also skin excoriation around his buttocks and lower extremities bilaterally and local wound care is being applied. Calcium level from this morning was at 6.2 and the patient was given it in part of calcium gluconate 1 g. A drop in hemoglobin was also noted down to 7.7 and this probably is dilutional. The patient is tolerating enteral feeding through his NG tube. The patient is seen again today 04/13/2017 in follow-up in the intensive care unit. He remains awake and alert and following commands. He unfortunately remains on the mechanical ventilator. Current settings are assist-control mode of 18, tidal volume 400, FiO2 40% and a PEEP of 5. Morning blood gases reveal a pO2 of 132, pCO2 31 and a pH of 7.47. Chest x-ray reveals bilateral infiltrates and pleural effusions but no significant interval change. He does continue to spike fevers up to 102.3 earlier this morning. Follow-up blood, urine and sputum cultures have been negative. He remains on meropenem and vancomycin. He still continues with issues with hypotension and is on vasopressin at 0.03 units per minute along with norepinephrine at 5 mcg/m. He is tolerating his tube feedings which are at 65 MLS per hour his goal. His hemoglobin remained stable at 8.5. Sodium 144, chloride 1:15. AST 312, ALT 186 , alk phos 327. An ultrasound of the gallbladder appeared to be within normal limits. There is moderate hepatic steatosis. Right-sided nephrolithiasis without evidence of hydronephrosis. Based on his continued temps and hypotension there no immediate plans for tracheostomy and PEG tube placement checked today. The patient is seen again today 04/14/2017 in follow-up in the intensive care unit. He remains awake and alert and following commands. He is responding appropriately. He remains intubated on the mechanical ventilator with vent settings of assist control mode of 18, tidal volume 400, FiO2 40% and a PEEP of 5. Morning blood gases reveal a P O2 of 118, pCO2 of 32, pH 7.46. White count 2.2. Hemoglobin 8.3. Creatinine 0.80. His temperature today was 100.7. He is slightly tachycardic. Follow-up urine culture is positive for Kim. He was initiated on micafungin. Sputum cultures reveal no growth to date. Catheter tip reveals no growth. Blood cultures reveal no growth. There is a nondraining wound at the base of his penis. The wounds on his lower extremities are dry. There is also a fluid collection in the right upper extremity via Doppler yesterday. He remains on ertapenem and vancomycin. He also remains on vasopressin at 0.03 units per minute, norepinephrine at 9 mcg/ m. Propofol remains off. On 04/15/2017 I'm seeing this patient for a follow-up. The ongoing active issue for now is his fever and hypotension. The patient was worked up extensively for the fever and ultimately the blood culture came back positive for Kim parapsilosis. Note that his urine culture was also positive for Kim. I had ordered to start the patient on micafungin and his been on the antifungal treatment for the past 24 hours. The exact source of the Kim is not clear although it could be the PICC line is present in the right upper extremity. In any rate this is a double-lumen PICC line and one of the ports is now functioning it's leaking at least 2, out and the tip will be sent also for cultures. The patient this morning is on 50 mics of norepinephrine infusion. The patient is also on physiologic dose vasopressin. He is having fever with a T-max of 101.3. At the same time, he is awake and alert. He is following commands. On the mechanical ventilation and no changes on his vent settings have been down. His is on assist-control mode of ventilation at the rate of 18, tidal volume 400, FiO2 of 40% and a PEEP of 5. Chest x-ray from yesterday showed no evidence of any pneumonia. The patient is small bilateral pleural effusion which remains essentially unchanged. ET tube remains in a good location. No significant secretions through the orotracheal tube. As far as his hemodynamics, the patient as mentioned is hypotensive on norepinephrine infusion however he is producing adequate amount of urine output. The patient has a normal renal function with a creatinine of 0.8. The skin examination shows multiple wounds in the lower extremities bilaterally at described earlier in my dictation. Appropriate dressings have been applied to his lower extremities bilaterally and his coccygeal area. He is tolerating tube feeds. His sodium level is again on the rise and the sodium level today is up to 149. There is a component of hyperchloremic hypernatremia. He is also having liquidy diet intake bowel movements in the order of 200-300 mL every 8 hours. We'll for C. diff evaluation has been negative. The patient is on enteral feeding and he is receiving vital high protein at the rate of 64 mL an hour. He is also receiving free water flushes 30 mL every 4 hours. Terms of antibiotic coverage, the patient is currently on micafungin. The patient is also on a combination of Invanz and IV vancomycin was discontinued by infectious disease and the patient was switched oral vancomycin in consideration for C. diff colitis despite the fact that the stool evaluation was negative for C. diff. The latest vancomycin level from yesterday was 20.3. On 04/16/2017 I'm seeing this patient for a follow-up. As mentioned earlier, the patient remains intubated on a mechanical ventilator with failure to wean. He is awake and alert and his communicating. He was found to have candidal sepsis and the patient was a she started on micafungin and following that he was switched to high-dose Diflucan. The PICC line in the right approximately was removed and a triple lumen cath in the left subclavian vein was inserted yesterday. He also has an art line. This morning he is on 15 mics of norepinephrine infusion. He is however having only low-grade fever. He is more stable compared to yesterday more awake and alert and more interactive. His blood pressure is improved and I think this would be a good time to start weaning his norepinephrine infusion. He is tolerating his tube feeds. He remains on a mechanical ventilator. No changes on the vent setting was done. Chest x-ray shows small better pleural effusion. It tube is in a good location. No evidence of any pneumothorax. There is a subclavian vein triple- lumen catheter in place. The patient's sodium level is gradually improving. The patient is on D5 water at the rate of 75 mL an hour. The white cell count is not elevated. Morning blood gases showed a pH of 7.43 with a pCO2 of 36 and pO2 of 95. The patient remains on a combination of ertapenem, IV Diflucan, and oral vancomycin. The liquidy diuretic stool/bowel movements have improved also. The patient has FM I S system in place. The liver function tests are gradually improving. Ocular phosphatase remains somewhat slightly elevated. The vancomycin level last check was on 04/14/2017 it was at 20.3. Is currently off IV vancomycin. On 04/17/2017, patient remains on mechanical ventilation, he is a failure to wean , awaiting eventually tracheostomy and PEG tube placement, however the patient has to demonstrate some hemodynamic stability before that could be done. Remains on about 8 g of norepinephrine, remains on 0.03 units of vasopressin, still receiving fluid boluses intermittently for low blood pressure. Today I restarted hydrocortisone again. Patient was started on micafungin by infectious disease because of his positive Kim in the blood cultures. Patient is tolerating tube feeds, remains on mechanical ventilation with the same vent settings, chest x-ray continues to show some left lower lobe atelectasis and possibly a small pleural effusion, left subclavian catheter is in place, labs were all reviewed. WBC count is 5.6 hemoglobin is 7.8 basic metabolic profile is normal ABG showed a pO2 of 125 pCO2 of 35 pH of 7.43. Liver profile was noted to be a bit elevated including elevated alkaline phosphatase. Albumin is 2.0. Patient was reevaluated today on 04/18/2017, remains on mechanical ventilation and failure to wean. Still showing hemodynamic instability, although we were able to get him off levo fed at least for the last few hours, and he remains on a small dose of vasopressin. Patient remains on hydrocortisone, his hemoglobin today is low and the patient will receive 2 units of packed RBCs. ABG this morning showed a pO2 of 116 pCO2 of 44 pH of 7.36, hence I placed the patient back on FiO2 of 45%. Hemoglobin is 6.2 today, and again patient received 2 units of packed RBCs no clear-cut evidence of active bleeding or GI bleeding, he has normal color stools and no blood noted in the nasogastric tube and no coffee-ground emesis. Screening for C. diff was negative. Patient was reevaluated today on 04/19/2017, remains on mechanical ventilation, however his hemodynamic status seems to be much better today, patient is off pressors, and his blood pressures seems to be holding quite nicely. patient is scheduled to undergo tracheostomy and PEG tube placement today. in the meantime I plan to keep him on all his antibiotics, antifungal therapy, hydrocortisone, and we'll give her more fluids in the form of D5W because of his hypernatremia. his ventilator settings are basically the same, ABG showed a pO2 of 104 pCO2 of 43 pH of 7.35. electrolytes were reviewed he has hypernatremia and hyperchloremia normal renal profile noted. his hemoglobin is holding at 8.0 WBC count is 5.1 today. chest x-ray is basically about the same showing chronic changes at the left base. Patient was reevaluated today on 04/20/2017, he underwent tracheostomy and PEG tube placement yesterday. Was noted to be relatively hypotensive this morning, however the patient responded to fluid boluses, did not require placement back on any pressors. Today we'll likely use his PEG tube for feeding, I will use the PEG tube for free water flushes because of his hypernatremia, and his potassium is being corrected as per protocol. Same vent settings were noted. ABG showed a pO2 of 99 pCO2 of 44 pH of 7.38. Hemoglobin is holding at 7.8 patient is experiencing some bright red blood per rectum, hence I will recommend a surgical evaluation by Dr. kennedy. In the meantime I will arrange for [facility] care specialty consultation, patient will be a retirement vent, he will be a challenge to wean from mechanical ventilation after all this time on mechanical ventilation in the ICU. Not to mention the patient has chronic lower muscle weakness related to previous trauma, and spinal cord injury. 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 Objective - Vital Signs Vital signs: Vital Signs Temp 98 F 04/20/17 04:00 Pulse 81 04/20/17 07:21 Resp 25 H 04/20/17 07:00 BP 111/61 04/20/17 07:00 Pulse Ox 95 04/20/17 01:00 Intake & Output 04/19/17 04/20/17 04/20/17 18:59 06:59 18:59 Intake Total 1508 1423 Output Total 2603 2300 Balance -1095 -877 Weight 109.7 kg 109.7 kg Intake: IV 1408 1423 0.9 normal saline 40 Dextrose 5% in Water 1, 1275 1250 000 ml @ 125 mls/hr IV . Q8H MANDA Rx#:[id number] Pressure Bag 33 33 levETIRAcetam IV 1,000 mg 100 100 In Saline 1 100ml.bag @ 400 mls/hr IVPB Q12HR MANDA Rx#:[id number] Intake, IV Titration 100 Amount Fluconazole in NaCl,Iso- 100 Osm 400 mg In Saline 1 200ml.bag @ 100 mls/hr IVPB DAILY@1200 MANDA Rx#: [id number] Output: Urine 2600 2300 Estimated Blood Loss 3 Other: Voiding Method Indwelling Catheter Indwelling Catheter ABP, PAP, CO, CI - Last Documented Arterial Blood Pressure 115/56 - Exam Physical Exam: Revealed a 51-year-old white male, morbidly obese, on mechanical ventilation, sedated, in no distress at present. Colostomy seems to be intact. HEENT:[ Short obese neck. Neck is supple.] [No neck masses.] [No thyromegaly.] [No JVD.] PERRLA, EOMI, moist mucous membranes. Endotracheal tube is intact. Chest: [Diminished breath sounds at the bases, especially at the left base. no crackles nor rhonchi no wheezes.] Cardiac Exam: [Normal S1 and S2, no S3 gallop, no murmur.] Abdomen: [Obese, Soft, nontender, no megaly, no rebound, no guarding, normal bowel sounds.] PEG tube is intact. Extremities: [No clubbing, no edema, no cyanosis. Significant muscle atrophy and wasting of muscles noted in lower extremities, patient is paraplegic.] Flexion contractures noted bilaterally. Neurological Exam: [No focal neurologic deficit. Except for paraplegia from the waist down. Lymphatics: No lymphadenopathy. Psychiatric: Normal mood, affect, and cannot fully assess mental status exam.] - Labs CBC & Chem 7: 04/20/17 05:30 04/20/17 05:30 Labs: Abnormal Lab Results - Last 24 Hours (Table) 04/19/17 04/19/17 04/20/17 Range/Units 13:17 17:23 00:15 RBC (4.30-5.90) m/uL Hgb (13.0-17.5) gm/dL Hct (39.0-53.0) % MCHC (31.0-37.0) g/dL RDW (11.5-15.5) % Lymphocytes # (1.0-4.8) k/uL ABG Total CO2 (19-24) mmol/L ABG O2 Saturation (94-97) % Sodium (137-145) mmol/L Potassium (3.5-5.1) mmol/L Chloride (98-107) mmol/L Creatinine (0.66-1.25) mg/dL Glucose (74-99) mg/dL POC Glucose (mg/dL) 200 H 204 H 160 H (75-99) mg/dL Calcium (8.4-10.2) mg/dL AST (17-59) U/L ALT (21-72) U/L Alkaline Phosphatase (38-126) U/L Total Protein (6.3-8.2) g/dL Albumin (3.5-5.0) g/dL 04/20/17 04/20/17 04/20/17 Range/Units 05:30 05:30 06:19 RBC 2.74 L (4.30-5.90) m/uL Hgb 7.8 L (13.0-17.5) gm/dL Hct 26.2 L (39.0-53.0) % MCHC 29.9 L (31.0-37.0) g/dL RDW 19.1 H (11.5-15.5) % Lymphocytes # 0.7 L (1.0-4.8) k/uL ABG Total CO2 (19-24) mmol/L ABG O2 Saturation (94-97) % Sodium 152 H (137-145) mmol/L Potassium 2.8 L* (3.5-5.1) mmol/L Chloride 117 H (98-107) mmol/L Creatinine 0.63 L (0.66-1.25) mg/dL Glucose 150 H (74-99) mg/dL POC Glucose (mg/dL) 148 H (75-99) mg/dL Calcium 6.7 L (8.4-10.2) mg/dL AST 78 H (17-59) U/L ALT 162 H (21-72) U/L Alkaline Phosphatase 272 H (38-126) U/L Total Protein 5.0 L (6.3-8.2) g/dL Albumin 2.1 L (3.5-5.0) g/dL 04/20/17 Range/Units 07:56 RBC (4.30-5.90) m/uL Hgb (13.0-17.5) gm/dL Hct (39.0-53.0) % MCHC (31.0-37.0) g/dL RDW (11.5-15.5) % Lymphocytes # (1.0-4.8) k/uL ABG Total CO2 27 H (19-24) mmol/L ABG O2 Saturation 98.0 H (94-97) % Sodium (137-145) mmol/L Potassium (3.5-5.1) mmol/L Chloride (98-107) mmol/L Creatinine (0.66-1.25) mg/dL Glucose (74-99) mg/dL POC Glucose (mg/dL) (75-99) mg/dL Calcium (8.4-10.2) mg/dL AST (17-59) U/L ALT (21-72) U/L Alkaline Phosphatase (38-126) U/L Total Protein (6.3-8.2) g/dL Albumin (3.5-5.0) g/dL Microbiology - Last 24 Hours (Table) 04/18/17 13:20 Blood Culture - Preliminary Blood No Growth after 24 hours Assessment and Plan Assessment: 1 acute septic shock secondary to urinary tract infection, acute cystitis secondary to Enterobacter aerogenes and pseudomonas aeruginosa as noted in the urine. His blood cultures are positive for Enterobacter. Blood cultures negative. He remains on meropenem, and the patient is on low-dose levo fed for blood pressure support . His acute systemic candidemia is another contributing factor to his sepsis. patient required hemodynamic support and pressors for a long. Time, however he has been off pressors now since last night. Off vasopressin and off norepinephrine. On 04/16/2017, the patient is being treated for systemic candidemia with IV Diflucan. The patient is having low-grade fever and his still pressor dependent. The PICC line has been removed and the tip was sent for culture. A triple lumen catheter was inserted in the left subclavian. Blood pressures improved. He is still having some low-grade fever and I think we should be able to start gradually weaning down the pressors. He remains on IV Invanz regarding a previous Enterobacter infection of the urine and positive septicemia. On 04/17/2017, patient remains on antibiotics, and antifungal therapy, still hemodynamically unstable for trach and PEG placement. Still unable to wean, remains on mechanical ventilation, and I have restarted back on hydrocortisone. Patient is still requiring significant amount of vasopressin and norepinephrin 04/19/2017, the major change is the fact that the patient is off norepinephrine and off vasopressin. Hence we'll plan to proceed with tracheostomy and PEG tube placement today. This is scheduled to be done this afternoon by Dr. Castillo. 2 acute hypoxic respiratory failure secondary to above. Failed extubation requiring reintubation. The plan is for probable tracheostomy on 04/11/2017, however the patient's procedure got canceled due to ongoing hemodynamic changes and decision opted to wait for another 24 hours today's further stable. Meanwhile, the patient was given another spontaneous breathing trial and he failed and based on that no attempts to extubate this patient were done. We are more convinced that he will need a PEG and trach at a later stage. The patient remains hemodynamically unstable and he is not ready to undergo the procedure yet. The procedure has been postponed until his sepsis is under better control. 3 acute metabolic, lactic acidosis secondary to 1, recovered 4 history of paraplegia and neurogenic bladder. 5 acute kidney injury secondary to sepsis and septic shock, recovered 6 history of nephrolithiasis/bilateral. 7 history of multiple surgeries including skin graft for pressure sores, right ureteroscopy with lithotripsy in 2005 and external sphincterotomy 1990 and 1994. 8 hypotension and the patient is still requiring pressors for blood pressure support 9 extensive edema in lower extremities bilaterally along with superficial scale ulcerations and excoriation and sloughing in the lower extremities and coccyx. 10 leukocytosis, improved 11 acute respiratory alkalosis, improving 12 small bilateral pleural effusions. 13 abnormal LFTs with elevation and alkaline phosphatase, and ultrasound the gallbladder shows no evidence of any cholecystitis, and the liver function tests are being monitored . Rule out drug effect. Rule out Merrem affecting the patient has been switched to Invanz. On today's evaluation, LFTs remains somewhat elevated although they're improving compared to last evaluation. 14 hypernatremia, recurrent 15 anemia, stable hemoglobin for now. 16 diarrhea, possibly antibiotic induced. There is no evidence of any C. diff colitis. 17 status post tracheostomy and PEG tube placement on 04/19/2017. 18 bright red blood per rectum, will initiate surgical consultation with Dr. kennedy. Recommendation: Continue ventilatory support, hemodynamic support, antibiotics and antifungal therapy, patient remains on Invanz, fluconazole, will cut down Solu-Cortef to 50 mg IV push every 8 hours. more fluid boluses will be given and the patient remains critically ill. Discussed his condition with his family at bedside, will give him fluid boluses and free water via PEG tube for his hyponatremia, will initiate surgical consultation for his bright red blood per rectum, and we'll consult select care specialty to evaluate for possible transfer since the patient will be a long-term vented patient. Prognosis remains guarded. Full discussion with his family was done at bedside today. Critical care time is 40 minutes. Time with Patient: Greater than 30
[2017-04-20] MEDS: POTASSIUM CHLORIDE ORAL LIQUID 40 MEQ/30 ML CUP NG-TUBE SCH ×5 (10:40→22:22)
[2017-04-20] MEDS: MAGNESIUM SULFATE-D5W PMX 1 GM in DEXTROSE/WATER 1 100ML.BAG IVPB SCH ×2 (11:26→12:52)
[2017-04-20] MEDS: FLUCONAZOLE IN NACL,ISO-OSM 400 MG in SALINE 1 200ML.BAG IVPB SCH (11:26)
[2017-04-20 12:23] LABS: Glucose,Whole Blood 205 mg/dL (75-99)
[2017-04-20] MEDS: NOREPINEPHRIN 16 MG-0.9%NS PMX 16 MG/250 ML ML IV SCH (12:30)
[2017-04-20] MEDS: LACTATED RINGERS 1,000 ML IV SCH (13:00)
--- NOTE | 2017-04-20 14:01 | P.GSCN ---
History of Present Illness Consult date: 04/20/17 Reason for Consult: Rectal bleeding History of present illness: Patient hospitalized with gross hematuria and progressive sepsis. He has been on off of the ventilator since that time. He has a history of previous quadriplegia from a sports injury. This morning the patient was noted to have 2 episodes of bloody stools. He had a PEG tube placed yesterday by Dr. Castillo. The gastric aspirate today is bilious in color. He did receive 2 units of blood a few days ago for a hemoglobin of 6. denies abdominal pain. He has had hemorrhoids in the past. No prior colonoscopy. 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 History of kidney stones. 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 Cystoscopy with irrigation of blood clots from bladder on 03/31/2017. Past Anesthesia/Blood Transfusion Reactions: No Reported Reaction Past Psychological History: No Psychological Hx Reported Smoking Status: Never smoker Past Alcohol Use History: Rare Past Drug Use History: None Reported - Past Family History Mother Family Medical History: No Reported History Father Family Medical History: No Reported History Medications and Allergies Home Medications Medication Instructions Recorded Confirmed Type Lansoprazole [Prevacid] 15 mg PO DAILY 03/29/17 03/29/17 History Allergies Allergy/AdvReac Type Severity Reaction Status Date / Time Sulfa (Sulfonamide Allergy Rash/Hives Verified 03/29/17 18:49 Antibiotics) Surgical - Exam Vital Signs Temp Pulse Resp Pulse Ox 97.9 F 114 H 16 97 03/29/17 18:15 03/29/17 18:15 03/29/17 18:15 03/29/17 18:15 Physical exam: General: Well-developed, well-nourished HEENT: Normocephalic, sclerae nonicteric, trach intact Abdomen: Nontender, nondistended, PEG tube intact Extremities: Mild edema Neuro: Alert Results - Labs 04/20/17 05:30 04/20/17 05:30 Abnormal Lab Results - Last 24 Hours (Table) 04/19/17 04/20/17 04/20/17 Range/Units 17:23 00:15 05:30 RBC (4.30-5.90) m/uL Hgb (13.0-17.5) gm/dL Hct (39.0-53.0) % MCHC (31.0-37.0) g/dL RDW (11.5-15.5) % Lymphocytes # (1.0-4.8) k/uL ABG Total CO2 (19-24) mmol/L ABG O2 Saturation (94-97) % Sodium 152 H (137-145) mmol/L Potassium 2.8 L* (3.5-5.1) mmol/L Chloride 117 H (98-107) mmol/L Creatinine 0.63 L (0.66-1.25) mg/dL Glucose 150 H (74-99) mg/dL POC Glucose (mg/dL) 204 H 160 H (75-99) mg/dL Calcium 6.7 L (8.4-10.2) mg/dL AST 78 H (17-59) U/L ALT 162 H (21-72) U/L Alkaline Phosphatase 272 H (38-126) U/L Total Protein 5.0 L (6.3-8.2) g/dL Albumin 2.1 L (3.5-5.0) g/dL 04/20/17 04/20/17 04/20/17 Range/Units 05:30 06:19 07:56 RBC 2.74 L (4.30-5.90) m/uL Hgb 7.8 L (13.0-17.5) gm/dL Hct 26.2 L (39.0-53.0) % MCHC 29.9 L (31.0-37.0) g/dL RDW 19.1 H (11.5-15.5) % Lymphocytes # 0.7 L (1.0-4.8) k/uL ABG Total CO2 27 H (19-24) mmol/L ABG O2 Saturation 98.0 H (94-97) % Sodium (137-145) mmol/L Potassium (3.5-5.1) mmol/L Chloride (98-107) mmol/L Creatinine (0.66-1.25) mg/dL Glucose (74-99) mg/dL POC Glucose (mg/dL) 148 H (75-99) mg/dL Calcium (8.4-10.2) mg/dL AST (17-59) U/L ALT (21-72) U/L Alkaline Phosphatase (38-126) U/L Total Protein (6.3-8.2) g/dL Albumin (3.5-5.0) g/dL 04/20/17 Range/Units 12:16 RBC (4.30-5.90) m/uL Hgb (13.0-17.5) gm/dL Hct (39.0-53.0) % MCHC (31.0-37.0) g/dL RDW (11.5-15.5) % Lymphocytes # (1.0-4.8) k/uL ABG Total CO2 (19-24) mmol/L ABG O2 Saturation (94-97) % Sodium (137-145) mmol/L Potassium (3.5-5.1) mmol/L Chloride (98-107) mmol/L Creatinine (0.66-1.25) mg/dL Glucose (74-99) mg/dL POC Glucose (mg/dL) 205 H (75-99) mg/dL Calcium (8.4-10.2) mg/dL AST (17-59) U/L ALT (21-72) U/L Alkaline Phosphatase (38-126) U/L Total Protein (6.3-8.2) g/dL Albumin (3.5-5.0) g/dL Microbiology - Last 24 Hours (Table) 04/18/17 13:20 Blood Culture - Preliminary Blood No Growth after 24 hours Diabetes panel 04/20/17 Range/Units 05:30 Sodium 152 H (137-145) mmol/L Potassium 2.8 L* (3.5-5.1) mmol/L Chloride 117 H (98-107) mmol/L Carbon Dioxide 27 (22-30) mmol/L BUN 18 (9-20) mg/dL Creatinine 0.63 L (0.66-1.25) mg/dL Glucose 150 H (74-99) mg/dL Calcium 6.7 L (8.4-10.2) mg/dL AST 78 H (17-59) U/L ALT 162 H (21-72) U/L Alkaline Phosphatase 272 H (38-126) U/L Total Protein 5.0 L (6.3-8.2) g/dL Albumin 2.1 L (3.5-5.0) g/dL Calcium panel 04/20/17 Range/Units 05:30 Calcium 6.7 L (8.4-10.2) mg/dL Phosphorus 3.0 (2.5-4.5) mg/dL Albumin 2.1 L (3.5-5.0) g/dL Pituitary panel 04/20/17 Range/Units 05:30 Sodium 152 H (137-145) mmol/L Potassium 2.8 L* (3.5-5.1) mmol/L Chloride 117 H (98-107) mmol/L Carbon Dioxide 27 (22-30) mmol/L BUN 18 (9-20) mg/dL Creatinine 0.63 L (0.66-1.25) mg/dL Glucose 150 H (74-99) mg/dL Calcium 6.7 L (8.4-10.2) mg/dL Adrenal panel 04/20/17 Range/Units 05:30 Sodium 152 H (137-145) mmol/L Potassium 2.8 L* (3.5-5.1) mmol/L Chloride 117 H (98-107) mmol/L Carbon Dioxide 27 (22-30) mmol/L BUN 18 (9-20) mg/dL Creatinine 0.63 L (0.66-1.25) mg/dL Glucose 150 H (74-99) mg/dL Calcium 6.7 L (8.4-10.2) mg/dL Total Bilirubin 0.7 (0.2-1.3) mg/dL AST 78 H (17-59) U/L ALT 162 H (21-72) U/L Alkaline Phosphatase 272 H (38-126) U/L Total Protein 5.0 L (6.3-8.2) g/dL Albumin 2.1 L (3.5-5.0) g/dL Assessment and Plan (1) Rectal bleeding Narrative/Plan: Will plan colonoscopy when medically stable. Will closely follow with you at this point. Current Visit: Yes Status: Acute Code(s): K62.5 - HEMORRHAGE OF ANUS AND RECTUM SNOMED Code(s): 36482037
--- NOTE | 2017-04-20 16:49 | PN ---
PROGRESS NOTE DATE OF SERVICE: 04/20/2017 REASON FOR FOLLOWUP: 1. Enterobacter UTI and bacteremia. 2. Kim parapsilosis fungemia secondary PICC line. 3. Diarrhea with hematochezia. INTERVAL HISTORY: The patient is afebrile. However, he was noticed to have hypotension requiring restart of his Levophed. He was also noted to have bloody diarrhea. His fecal management system was removed yesterday and RN mentioned that he had 2 small loose stools with blood in them this morning. The patient remains on the vent. FiO2 has to be up to 50%. The patient does not seem to be in any distress, tolerating his tube feed. No nausea or vomiting has been noticed. PHYSICAL EXAMINATION: Blood pressure is 109/50 with a pulse of 91, temperature of 98. He is 97% on 50% FiO2. General description is a middle-aged male lying in bed in no distress. RESPIRATORY SYSTEM: Unlabored breathing with decreased breath sounds in the bases. No wheeze. HEART: S1, S2. Regular rate and rhythm. ABDOMEN: Soft. No tenderness. LABS: Hemoglobin is 7.8, white count 4.8 with a BUN of 18, creatinine 0.63. Potassium low at 2.8. Liver enzymes are slightly elevated. DIAGNOSTIC IMPRESSION/PLAN: 1. Patient with Enterobacter aeruginosa bacteremia and urinary tract infection, for which the patient received more than 2 weeks of IV antibiotic therapy. That should be enough. Recommend discontinuation of the Invanz. Will discuss with the medical office clerk, as there is no other clinical focus. 2. Patient who did have a Kim parapsilosis fungemia secondary to PICC line, which has been discontinued. Blood culture negative. Currently on IV fluconazole. 3. Diarrhea with some evidence of hematochezia. Repeat stool for C difficile has been negative. Patient is currently on Lactinex. Will add Questran for symptomatic relief. Family present at bedside. Their questions were answered. The patient also has some dry scalp. Will apply Eucerin moisturizing lotion to the area. MMODL / IJN: [id number] /
[2017-04-20 17:45] LABS: Glucose,Whole Blood 150 mg/dL (75-99)
[2017-04-20] MEDS: CHOLESTYRAMINE (WITH SUGAR) 4 GM PACKET PEG/G-TUBE SCH (17:45)
[2017-04-20] MEDS ORDERED: LOPERAMIDE 2 MG CAP PO PRN (19:49)
[2017-04-21 00:26] LABS: Glucose,Whole Blood 139 mg/dL (75-99)
[2017-04-21] MEDS: HYDROCORTISONE SUCCINATE 100 MG/2 ML VIAL IV SCH ×2 (00:47→08:05)
[2017-04-21] MEDS: HEPARIN SODIUM,PORCINE 5,000 UNIT/ML 1 ML VIAL SQ SCH ×2 (00:47→08:07)
[2017-04-21] MEDS: INSULIN ASPART 100 UNIT/ML 1 ML 10 ML VIAL SQ SCH ×3 (00:51→11:58)
[2017-04-21] MEDS: SODIUM CHLORIDE 0.9% 99 ML with VASOPRESSIN 20 UNIT IV SCH ×4 (00:53→11:50)
[2017-04-21] MEDS: DEXTROSE 5% IN WATER 1,000 ML IV SCH ×4 (02:00→10:44)
[2017-04-21] MEDS: IPRATROPIUM-ALBUTEROL 3 ML NEB INHALATION SCH ×4 (03:04→15:54)
[2017-04-21 04:21] LABS: Anisocytosis Slight; Basophils % (A) 0 %; Eosinophils % (A) 0 %; HCT 29.8 % (39.0-53.0); Hypochromasia Marked; Lymphocytes # (A) 1.3 k/uL (1.0-4.8); Lymphocytes % (A) 18 %; MCH 28.2 pg (25.0-35.0); MCHC 30.2 g/dL (31.0-37.0); MCV 93.5 fL (80.0-100.0); Macrocytosis Slight; Mean Platelet Volume 8.2; Monocytes # (A) 0.4 k/uL (0-1.0); Monocytes % (A) 6 %; Neutrophils # (A) 5.2 k/uL (1.3-7.7); Neutrophils % (A) 74 %; Platelet Count 255 k/uL (150-450); Poikilocytosis Slight; RBC 3.19 m/uL (4.30-5.90); RDW 19.6 % (11.5-15.5)
[2017-04-21 04:31] LABS: ALT 166 U/L (21-72); AST 66 U/L (17-59); Albumin 2.2 g/dL (3.5-5.0); Alkaline Phosphatase 271 U/L (38-126); Anion Gap 7 mmol/L; Blood Urea Nitrogen 13 mg/dL (9-20); Calcium 6.6 mg/dL (8.4-10.2); Carbon Dioxide 28 mmol/L (22-30); Chloride 112 mmol/L (98-107); Glucose 145 mg/dL (74-99); Phosphorus 3.1 mg/dL (2.5-4.5); Potassium 4.1 mmol/L (3.5-5.1); Sodium 147 mmol/L (137-145); Total Bilirubin 0.7 mg/dL (0.2-1.3); Total Protein 5.3 g/dL (6.3-8.2)
[2017-04-21 05:23] LABS: Glucose,Whole Blood 148 mg/dL (75-99)
[2017-04-21 05:48] LABS: Glucose,Whole Blood 131 mg/dL (75-99)
--- NOTE | 2017-04-21 07:38 | P.PN ---
Subjective Principal diagnosis: Continuing care. This is a continue present 51-year-old white male with a history of C5/6 paraplegia injury in 1984. He was admitted for UTI but developed septic shock and has been ventilatory dependent since then. The patient had element of bright red blood per rectum and surgery was consulted. He is status post tracheostomy. He does not complain of any pain otherwise. Multiple consultants including infectious disease with critical care are noted. Objective - Vital Signs Vital signs: Vital Signs Temp 97.9 F 04/21/17 04:00 Pulse 65 04/21/17 07:26 Resp 17 04/21/17 07:00 BP 104/52 04/21/17 07:00 Pulse Ox 96 04/21/17 07:00 Intake & Output 04/20/17 04/21/17 04/21/17 18:59 06:59 18:59 Intake Total 4650.081 2008.016 0 Output Total 2450 1840 Balance 2200.081 168.016 0 Weight 109.7 kg 112 kg Intake: IV 2836 1784 0.9 normal saline 1000 120 Dextrose 5% in Water 1, 1500 1625 000 ml @ 125 mls/hr IV . Q8H MANDA Rx#:[id number] Magnesium Sulfate-D5w Pmx 200 1 gm In Dextrose/Water 1 100ml.bag @ 100 mls/hr IVPB Q1H MANDA Rx#: [id number] Pressure Bag 36 39 levETIRAcetam IV 1,000 mg 100 In Saline 1 100ml.bag @ 400 mls/hr IVPB Q12HR MANDA Rx#:[id number] Intake, IV Titration 1264.081 44.016 0 Amount Ertapenem 1 gm In Sodium 50 Chloride 0.9% 50 ml @ 100 mls/hr IVPB DAILY MANDA Rx #:[id number] Fluconazole in NaCl,Iso- 200 Osm 400 mg In Saline 1 200ml.bag @ 100 mls/hr IVPB DAILY@1200 MADNA Rx#: [id number] Norepinephrin 16 mg-0.9% 14.081 44.016 0 Ns Pmx 16 mg In 250 ml @ Titrate IV .Q0M MANDA Rx#: [id number] Sodium Chloride 0.9% 1, 1000 000 ml @ 999 mls/hr IV . Q1H1M ONE Rx#:[id number] Tube Feeding 10 180 Other 540 Output: Urine 2450 1840 Other: Voiding Method Indwelling Catheter Indwelling Catheter # Bowel Movements 1 ABP, PAP, CO, CI - Last Documented Arterial Blood Pressure 99/46 - Constitutional General appearance: Present: average body habitus - EENT Eyes: Absent: abnormal pupil - Neck Neck: Absent: lymphadenopathy - Respiratory Respiratory: bilateral: CTA - Cardiovascular Rhythm: regular Heart sounds: normal: S1, S2 - Gastrointestinal General gastrointestinal: Present: soft. Absent: tenderness - Musculoskeletal Musculoskeletal Comment(s): Paraplegia. - Psychiatric Psychiatric: Present: A&O x's 3, intact judgment & insight - Labs CBC & Chem 7: 04/21/17 04:09 04/21/17 04:09 Labs: Abnormal Lab Results - Last 24 Hours (Table) 04/20/17 04/20/17 04/20/17 Range/Units 07:56 12:16 17:40 RBC (4.30-5.90) m/uL Hgb (13.0-17.5) gm/dL Hct (39.0-53.0) % MCHC (31.0-37.0) g/dL RDW (11.5-15.5) % ABG Total CO2 27 H (19-24) mmol/L ABG O2 Saturation 98.0 H (94-97) % Sodium (137-145) mmol/L Potassium (3.5-5.1) mmol/L Chloride (98-107) mmol/L Creatinine (0.66-1.25) mg/dL Glucose (74-99) mg/dL POC Glucose (mg/dL) 205 H 150 H (75-99) mg/dL Calcium (8.4-10.2) mg/dL AST (17-59) U/L ALT (21-72) U/L Alkaline Phosphatase (38-126) U/L Total Protein (6.3-8.2) g/dL Albumin (3.5-5.0) g/dL 04/20/17 04/21/17 04/21/17 Range/Units 17:50 00:23 04:09 RBC (4.30-5.90) m/uL Hgb (13.0-17.5) gm/dL Hct (39.0-53.0) % MCHC (31.0-37.0) g/dL RDW (11.5-15.5) % ABG Total CO2 (19-24) mmol/L ABG O2 Saturation (94-97) % Sodium 147 H (137-145) mmol/L Potassium 3.3 L (3.5-5.1) mmol/L Chloride 112 H (98-107) mmol/L Creatinine 0.60 L (0.66-1.25) mg/dL Glucose 145 H (74-99) mg/dL POC Glucose (mg/dL) 139 H (75-99) mg/dL Calcium 6.6 L (8.4-10.2) mg/dL AST 66 H (17-59) U/L ALT 166 H (21-72) U/L Alkaline Phosphatase 271 H (38-126) U/L Total Protein 5.3 L (6.3-8.2) g/dL Albumin 2.2 L (3.5-5.0) g/dL 04/21/17 04/21/17 04/21/17 Range/Units 04:09 05:21 05:46 RBC 3.19 L (4.30-5.90) m/uL Hgb 9.0 L (13.0-17.5) gm/dL Hct 29.8 L (39.0-53.0) % MCHC 30.2 L (31.0-37.0) g/dL RDW 19.6 H (11.5-15.5) % ABG Total CO2 (19-24) mmol/L ABG O2 Saturation (94-97) % Sodium (137-145) mmol/L Potassium (3.5-5.1) mmol/L Chloride (98-107) mmol/L Creatinine (0.66-1.25) mg/dL Glucose (74-99) mg/dL POC Glucose (mg/dL) 148 H 131 H (75-99) mg/dL Calcium (8.4-10.2) mg/dL AST (17-59) U/L ALT (21-72) U/L Alkaline Phosphatase (38-126) U/L Total Protein (6.3-8.2) g/dL Albumin (3.5-5.0) g/dL Microbiology - Last 24 Hours (Table) 04/18/17 13:20 Blood Culture - Preliminary Blood No Growth after 48 hours Assessment and Plan (1) Paraplegia following spinal cord injury Current Visit: Yes Status: Acute Code(s): G82.20 - PARAPLEGIA, UNSPECIFIED SNOMED Code(s): 16111432 (2) Gross hematuria Current Visit: Yes Status: Resolved Code(s): R31.0 - GROSS HEMATURIA SNOMED Code(s): 576262403 (3) Uremia Current Visit: Yes Status: Acute Code(s): N19 - UNSPECIFIED KIDNEY FAILURE SNOMED Code(s): 92672670 (4) Seizure Current Visit: Yes Status: Acute Code(s): R56.9 - UNSPECIFIED CONVULSIONS SNOMED Code(s): 26556632 (5) Toxic metabolic encephalopathy Current Visit: Yes Status: Resolved Code(s): G92 - TOXIC ENCEPHALOPATHY SNOMED Code(s): 456183764 (6) Septic shock Current Visit: Yes Status: Acute Code(s): A41.9 - SEPSIS, UNSPECIFIED ORGANISM; R65.21 - SEVERE SEPSIS WITH SEPTIC SHOCK SNOMED Code(s): 87739917 Plan: I suspect once he is stabilized from a ventilatory perspective, we will transfer to specialty select type ECF because of ventilatory dependence. Follow hemoglobin closely given history of anemia. Appreciate multiple consultants input. Check CBC and CMP in the a.m. Dr. Mejia's group will be covering for me over the weekend. See orders otherwise.
[2017-04-21] MEDS: BISACODYL 10 MG SUPP RECTAL SCH (08:03)
[2017-04-21] MEDS: CHLORHEXIDINE GLUCONATE 15 ML CUP MUCOUS MEM SCH (08:05)
[2017-04-21] MEDS: ERTAPENEM 1 GM in SODIUM CHLORIDE 0.9% 50 ML IVPB SCH (08:09)
[2017-04-21] MEDS: levETIRAcetam IV 1,000 MG in SALINE 1 100ML.BAG IVPB SCH (08:09)
[2017-04-21] MEDS: PANTOPRAZOLE 40 MG/10 ML VIAL IV SCH (08:10)
--- NOTE | 2017-04-21 08:10 | XR ---
EXAMINATION TYPE: XR chest 1V portable DATE OF EXAM: 04/21/2017 COMPARISON: 04/20/2017 HISTORY: Shortness of breath TECHNIQUE: Single frontal view of the chest is obtained. FINDINGS: There is now near complete opacification left hemithorax. Tracheostomy tube and central li ne stable. Small right pleural effusion and basilar infiltrate noted. Mild venous congestion not excl uded. Hypertrophic change of the spine. IMPRESSION: Progressive consolidation with near complete opacification of the left hemithorax.
[2017-04-21] MEDS: LACTOBACILLUS ACIDOPH & BULGAR 1 EACH PACKET PO SCH ×2 (08:25→11:50)
[2017-04-21 08:36] LABS: ABG Base Excess 0.4 mmol/L; ABG HCO3 24 mmol/L (21-25); ABG PCO2 37 mmHg (35-45); ABG PH 7.43 (7.35-7.45); ABG PO2 142 mmHg (83-108); ABG TCO2 25 mmol/L (19-24)
[2017-04-21] MEDS ORDERED: HYDROCORTISONE SUCCINATE 100 MG/2 ML VIAL IV SCH (09:38)
[2017-04-21] MEDS: CHOLESTYRAMINE (WITH SUGAR) 4 GM PACKET PEG/G-TUBE SCH (10:43)
[2017-04-21] MEDS ORDERED: FLUCONAZOLE ORAL SUSP 1,400 MG/35 ML BOTTLE PO SCH (11:00)
[2017-04-21 11:24] VITALS: BMI 31.6
[2017-04-21] MEDS: LACTATED RINGERS 1,000 ML IV SCH (11:49)
[2017-04-21 11:57] LABS: Glucose,Whole Blood 155 mg/dL (75-99)
--- NOTE | 2017-04-21 12:30 | P.PN ---
Subjective Progress Note Date: 04/21/17 Principal diagnosis: Acute septic shock secondary to acute urinary tract infection. And acute fungemia This is a 51-year-old white male, paraplegic, this is related to previous hockey accident and cervical spine injury at age 18. 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 Patient had external sphincterotomy in 1990 and 1994, and has been managed with an exdwelling catheter. In the last 2 weeks, the patient has been noticing dark color urine with some odor. On 03/28 patient was noticing some chills, and on the morning of 03/29 he developed gross hematuria but he was able to void. Later on the patient was passing clots, and he was unable to void. He developed significant suprapubic discomfort, and presented to the ER for evaluation. Upon evaluation the patient was noted to have slight leukocytosis, and renal failure with a BUN of [address] of the abdomen and pelvis showed bilateral nonobstructive renal calculi, and bilateral atrophy of the renal parenchyma. His bladder was noted to be distended, and question the possibility of bladder mass. Patient was started on Levaquin for treatment of urinary tract infection, and he was seen by urology on consultation were in the patient had cystoscopy, and he was found to have hemorrhagic cystitis. The procedure was done on 03/31/2017. Yesterday, in p.m., patient developed an episode of unresponsiveness, patient was hypotensive, nursing staff felt he may have had a seizure, hence he was treated with Keppra, patient was unable to protect his airways, and I was notified about the patient at that time. Patient was given fluid boluses for hypotension, started on levo fed, and later on vasopressin was started. Patient was sent for a CT of the brain which came back negative for CVA. And he was later transferred back to the ICU were and we determined that the patient has a clear cut picture of septic shock from his urinary tract infection which turned out to be secondary to Enterobacter species. Patient was already on Levaquin, this was discontinued and he was placed on Zosyn and Merrem. Overnight, the patient remained relatively hypotensive in spite of significant high doses of norepinephrine, and vasopressin was later started. Presently the patient is on 75 mics of norepinephrine, and he is on 0.05 units of vasopressin. Blood pressure is marginal, many fluid boluses were given, and I believe he received over 10 L of fluids. His urine output has been excellent and he seems to have a polyuria picture. Renal functioning seems to be significantly improved in the last 24 hours. Lactic acid remains high this morning at 5.1. All his electrolytes were abnormal including low potassium which was corrected, calcium was also corrected, and his creatinine improved from 2.36 down to 1.50. Urine cultures were noted, but no blood cultures have been noted so far. Today I saw the patient in the ICU, remains on mechanical ventilation, his ventilator settings are tidal volume of 500, assist control rate of 20, FiO2 is down to 50%, and PEEP is at 5. ABG showed a pO2 of 136 pCO2 of 31 pH of 7.23, hence the patient was given more bicarb, and kept on the bicarb drip with 3 A of bicarb in 1 L of D5W running at 1 25 mL per hour. In spite of all of this, the patient is on small dose of propofol, he is arousable, and follows simple instructions. Seems to be very appropriate. Neurology-yanez, the patient was given Keppra, and EEG was ordered, it is not certain whether the patient truly had a seizure or not. Patient was reevaluated today on 04/02/2017, remains on mechanical ventilation, same vent setting, however his FiO2 is decreased down to 45%, tidal volume remains at 500, assist control rate is at 20, and PEEP is at 5. ABG this morning showed a pO2 of 103 pCO2 of 33 pH of 7.40. Hence, down significantly on the sodium bicarb drip, The patient on IV fluids, patient still requiring significant fluid boluses to maintain an adequate mean arterial blood pressure. His urine output has been excellent, he is putting out almost 300 mL per hour. Patient continues to have leukocytosis with WBC count of 36.3 hemoglobin is 11.5. Renal profile is basically almost back to normal. And his acute kidney injury has resolved. Sodium is elevated, at 147, hence I changed his IV fluid 0.45 instead of 0.9. His electrolytes were noted to be abnormal, and these were all being corrected as per protocol. Chest x-ray continues to show retrocardiac consolidation, and small left pleural effusion. I was able to review an old x-ray from 2011, apparently had some chronic scarring in the left lower lobe, and some atelectasis in the left retrocardiac area, but not as pronounced as noted on this present x-ray from this admission. Patient remains on norepinephrine at 75 g, he is also on vasopressin at 0.05 units. Reevaluated today on 04/03/2017, patient remains on mechanical ventilation, same ventilator settings as noted above with FiO2 of 45% tidal volume of 500 assist control rate of 20 and PEEP of 5. ABG showed a pO2 of 79 pCO2 of 32 pH of 7.42 hence the sodium bicarb drip was discontinued. Lactic acid is responding but slowly and today's lactic acid is 3.9. More fluid boluses were given today, continues to have significant urine output, and patient had a positive balance of 2 L in the last 24 hours. Albumin will be given today, his potassium and calcium are being corrected as per protocol. Renal functioning remains normal. However WBC count is up to 42.4, hemoglobin is 10.3, platelets are down to 88,000, hence I have discontinued his Lovenox. One blood culture from the showed Enterobacter, another blood culture showed Enterobacter and nonhemolytic strep. The nonhemolytic strep is probably a contaminant. Patient was on vancomycin, doubt if we need to restart vancomycin at this point , patient is being followed by infectious disease, remains presently on Merrem and Zosyn to cover Enterobacter and Pseudomonas. Blood pressure-yanez, the patient remains on 45 mics of norepinephrine, and 0.05 units of vasopressin. We are in the process of titrating the norepinephrine down since the blood pressure seems to be holding better today than it was in the last couple of days. All meds were reviewed, patient also remains on propofol, relatively small dose to keep him slightly sedated, but the patient is arousable, and follows instructions. Chest x-ray continues to show left lower lobe retrocardiac opacity which is I believe chronic. Nutrition-yanez the patient seems to be tolerating tube feeding well via nasogastric tube. The patient is seen again today 04/04/2017 in follow-up in the intensive care unit. He remains intubated on the mechanical ventilator with settings of assist control mode at a rate of 20, tidal volume 500, FiO2 45%, PEEP of 5. Morning blood gases reveal pO2 of 100, pCO2 30, pH 7.41 with a mixed acid-base abnormality including respiratory alkalosis and metabolic acidosis. The patient 's cultures were positive for Enterobacter aerogenes and pseudomonas aeruginosa in the urine, Enterobacter aerogenes nonhemolytic strep in the blood. He remains on meropenem and vancomycin. He is also on norepinephrine at 25 mcg/m, vasopressin at 0.05 units per minute, propofol at 11 mcg/kg/m, insulin at 7.5 units per hour. He is being nourished with Vital HP at 57 mL per hour which is goal. He has a 0.45 normal saline at 200 mL's per hour. He is alert and oriented and nods his head appropriately. The patient is seen again today 04/05/2017 in follow-up in the intensive care unit. He remains intubated and on mechanical ventilator. Current settings assist-control mode of rate of 20, tidal volume 500, FiO2 40% and a PEEP of 5. Morning arterial blood gases revealed a pO2 of 113 on 45% FiO2, pCO2 35, pH 7.36. He remains alert and oriented following simple commands by nodding his head yes and no appropriately. He remains on norepinephrine at 9 mcg/m, vasopressin at 0.05 units per minute, propofol at 10 mcg/kg/m, hydrocortisone at 12.5 mg per hour, insulin at 0.5 units per hour. He has 0.45 normal saline at 200 MLS per hour. He is being nourished with Vital HP at 57 mL per hour which is goal. He is receiving flushes of 30 mL every 4 hours. He remains on meropenem. Progress note dated 04/06/2017 This is a 51-year-old male with a history of respiratory failure secondary to overwhelming sepsis and septic shock from a urinary tract infection secondary to Enterobacter Jameson reason pseudomonas aeruginosa. Blood cultures were also positive for Enterobacter around kidneys. The patient is doing relatively well. His FiO2 and PEEP levels are low. His blood gases are reasonable. His weaning parameters today were fine and were thinking about extubating the patient. In addition, the patient has a history of hypoxemic respiratory failure severe metabolic derangements including lactic acidemia secondary to sepsis previous history of paraplegia with neurogenic bladder acute kidney injury secondary to septic shock and acute tubular necrosis and a history of kidney stones. The patient has had multiple surgeries for skin grafts of pressure sores as well as previous sphincterotomy and lithotripsy for kidney stones. Again the patient seemed be doing relatively well today. We'll stop his propofol. Local had an empty stomach. We'll give him a CPAP/PSV trial. We 'll check a cuff leak. We will do a rapid shallow breathing index. Everything looks good, trial of extubation. On 04/11/2017 I'm seeing this patient for a follow-up. As mentioned earlier the patient was treated for septic shock and he was aggressively resuscitated with IV fluids and currently is hemodynamically stable. Nevertheless he is in obvious fluid overload with increased edema in lower extremities and upper extremity is bilaterally and today's chest x-ray shows small bilateral pleural effusion which was not present on previous chest x-rays. ET tube is in a good location. As mentioned earlier the patient has failed extubation twice and the plan is to proceed with a tracheostomy tube insertion today. He will also need a PEG tube insertion. Hemodynamically the patient is still borderline hypotensive on 3 mics of levo fed for hemodynamic support. Nevertheless, he is producing more than 200 mL of urine output on an hourly basis. His sodium is elevated at 145 and the patient is receiving D5 water at the rate of 1 75 mL an hour. He is an assist-control mode of ventilation. Currently is on assist control of 22, tidal volume of 450, FiO2 of 40% and a PEEP of 5. His morning blood Showed a pH of 7.56 with a pCO2 of 34 and pO2 of 143. He is afebrile. The blood culture was positive for Enterobacter and the patient is on IV Merrem. Urine cultures positive for Enterobacter and Pseudomonas. As mentioned earlier, the patient is paraplegic. He has leg wounds bilaterally which are more like excoriation and some degree of skin sloughing due to his peripheral edema. He also has some similar findings on his coccyx. His white cell count is up from 42 down to 8.1 and it was essentially related to his sepsis. Clinically, the patient is awake. The patient is following commands and answering simple questions. His been off Diprivan for the past 24 hours. On 04/12/2017 I'm seeing this patient for a follow-up. The patient is awake while being on mechanical ventilator. He remains somewhat hypotensive. Overnight I was contacted the patient's pressor doses have been gradually increased up to 6 mics and the patient also spiked a temperature. Based on that I asked the patient to be recultured including blood and urine. I also asked ID to reevaluate the patient and vancomycin got admitted on an empiric basis. The patient was also started on vasopressin and an attempt to gradually wean off the norepinephrine infusion. Earlier this morning, I noted that the patient started having some diarrhea and there is obvious concern for C. diff colitis. Stool will be sent for C. diff evaluation. I also discussed the case with the thoracic surgeon and Dr. Montes was a bit hesitant to proceed with a PEG and trach specially with his ongoing hemodynamic instability and he opted to wait on the procedure for another 24-48 hours. Meanwhile, I noted that the patient seemed to have a good state of weaning parameters earlier this morning. I give him a spontaneous breathing trial with a pressure support of 5 and a PEEP of 5 and within 10 to any minutes into the trial the patient decompensated and became hypotensive and hypoxic and he went into respiratory distress. Based on that the spot is breathing trial was aborted and the patient was placed back on assist control mode. His hypernatremia is improving and the sodium level is improved. The patient received D5 water addition to free water through the NG. D5 water will be kept on nontender the patient has become progressively more edematous both in upper and lower extremities. He has also skin excoriation around his buttocks and lower extremities bilaterally and local wound care is being applied. Calcium level from this morning was at 6.2 and the patient was given it in part of calcium gluconate 1 g. A drop in hemoglobin was also noted down to 7.7 and this probably is dilutional. The patient is tolerating enteral feeding through his NG tube. The patient is seen again today 04/13/2017 in follow-up in the intensive care unit. He remains awake and alert and following commands. He unfortunately remains on the mechanical ventilator. Current settings are assist-control mode of 18, tidal volume 400, FiO2 40% and a PEEP of 5. Morning blood gases reveal a pO2 of 132, pCO2 31 and a pH of 7.47. Chest x-ray reveals bilateral infiltrates and pleural effusions but no significant interval change. He does continue to spike fevers up to 102.3 earlier this morning. Follow-up blood, urine and sputum cultures have been negative. He remains on meropenem and vancomycin. He still continues with issues with hypotension and is on vasopressin at 0.03 units per minute along with norepinephrine at 5 mcg/m. He is tolerating his tube feedings which are at 65 MLS per hour his goal. His hemoglobin remained stable at 8.5. Sodium 144, chloride 1:15. AST 312, ALT 186 , alk phos 327. An ultrasound of the gallbladder appeared to be within normal limits. There is moderate hepatic steatosis. Right-sided nephrolithiasis without evidence of hydronephrosis. Based on his continued temps and hypotension there no immediate plans for tracheostomy and PEG tube placement checked today. The patient is seen again today 04/14/2017 in follow-up in the intensive care unit. He remains awake and alert and following commands. He is responding appropriately. He remains intubated on the mechanical ventilator with vent settings of assist control mode of 18, tidal volume 400, FiO2 40% and a PEEP of 5. Morning blood gases reveal a P O2 of 118, pCO2 of 32, pH 7.46. White count 2.2. Hemoglobin 8.3. Creatinine 0.80. His temperature today was 100.7. He is slightly tachycardic. Follow-up urine culture is positive for Kim. He was initiated on micafungin. Sputum cultures reveal no growth to date. Catheter tip reveals no growth. Blood cultures reveal no growth. There is a nondraining wound at the base of his penis. The wounds on his lower extremities are dry. There is also a fluid collection in the right upper extremity via Doppler yesterday. He remains on ertapenem and vancomycin. He also remains on vasopressin at 0.03 units per minute, norepinephrine at 9 mcg/ m. Propofol remains off. On 04/15/2017 I'm seeing this patient for a follow-up. The ongoing active issue for now is his fever and hypotension. The patient was worked up extensively for the fever and ultimately the blood culture came back positive for Kim parapsilosis. Note that his urine culture was also positive for Kim. I had ordered to start the patient on micafungin and his been on the antifungal treatment for the past 24 hours. The exact source of the Kim is not clear although it could be the PICC line is present in the right upper extremity. In any rate this is a double-lumen PICC line and one of the ports is now functioning it's leaking at least 2, out and the tip will be sent also for cultures. The patient this morning is on 50 mics of norepinephrine infusion. The patient is also on physiologic dose vasopressin. He is having fever with a T-max of 101.3. At the same time, he is awake and alert. He is following commands. On the mechanical ventilation and no changes on his vent settings have been down. His is on assist-control mode of ventilation at the rate of 18, tidal volume 400, FiO2 of 40% and a PEEP of 5. Chest x-ray from yesterday showed no evidence of any pneumonia. The patient is small bilateral pleural effusion which remains essentially unchanged. ET tube remains in a good location. No significant secretions through the orotracheal tube. As far as his hemodynamics, the patient as mentioned is hypotensive on norepinephrine infusion however he is producing adequate amount of urine output. The patient has a normal renal function with a creatinine of 0.8. The skin examination shows multiple wounds in the lower extremities bilaterally at described earlier in my dictation. Appropriate dressings have been applied to his lower extremities bilaterally and his coccygeal area. He is tolerating tube feeds. His sodium level is again on the rise and the sodium level today is up to 149. There is a component of hyperchloremic hypernatremia. He is also having liquidy diet intake bowel movements in the order of 200-300 mL every 8 hours. We'll for C. diff evaluation has been negative. The patient is on enteral feeding and he is receiving vital high protein at the rate of 64 mL an hour. He is also receiving free water flushes 30 mL every 4 hours. Terms of antibiotic coverage, the patient is currently on micafungin. The patient is also on a combination of Invanz and IV vancomycin was discontinued by infectious disease and the patient was switched oral vancomycin in consideration for C. diff colitis despite the fact that the stool evaluation was negative for C. diff. The latest vancomycin level from yesterday was 20.3. On 04/16/2017 I'm seeing this patient for a follow-up. As mentioned earlier, the patient remains intubated on a mechanical ventilator with failure to wean. He is awake and alert and his communicating. He was found to have candidal sepsis and the patient was a she started on micafungin and following that he was switched to high-dose Diflucan. The PICC line in the right approximately was removed and a triple lumen cath in the left subclavian vein was inserted yesterday. He also has an art line. This morning he is on 15 mics of norepinephrine infusion. He is however having only low-grade fever. He is more stable compared to yesterday more awake and alert and more interactive. His blood pressure is improved and I think this would be a good time to start weaning his norepinephrine infusion. He is tolerating his tube feeds. He remains on a mechanical ventilator. No changes on the vent setting was done. Chest x-ray shows small better pleural effusion. It tube is in a good location. No evidence of any pneumothorax. There is a subclavian vein triple- lumen catheter in place. The patient's sodium level is gradually improving. The patient is on D5 water at the rate of 75 mL an hour. The white cell count is not elevated. Morning blood gases showed a pH of 7.43 with a pCO2 of 36 and pO2 of 95. The patient remains on a combination of ertapenem, IV Diflucan, and oral vancomycin. The liquidy diuretic stool/bowel movements have improved also. The patient has FM I S system in place. The liver function tests are gradually improving. Ocular phosphatase remains somewhat slightly elevated. The vancomycin level last check was on 04/14/2017 it was at 20.3. Is currently off IV vancomycin. On 04/17/2017, patient remains on mechanical ventilation, he is a failure to wean , awaiting eventually tracheostomy and PEG tube placement, however the patient has to demonstrate some hemodynamic stability before that could be done. Remains on about 8 g of norepinephrine, remains on 0.03 units of vasopressin, still receiving fluid boluses intermittently for low blood pressure. Today I restarted hydrocortisone again. Patient was started on micafungin by infectious disease because of his positive Kim in the blood cultures. Patient is tolerating tube feeds, remains on mechanical ventilation with the same vent settings, chest x-ray continues to show some left lower lobe atelectasis and possibly a small pleural effusion, left subclavian catheter is in place, labs were all reviewed. WBC count is 5.6 hemoglobin is 7.8 basic metabolic profile is normal ABG showed a pO2 of 125 pCO2 of 35 pH of 7.43. Liver profile was noted to be a bit elevated including elevated alkaline phosphatase. Albumin is 2.0. Patient was reevaluated today on 04/18/2017, remains on mechanical ventilation and failure to wean. Still showing hemodynamic instability, although we were able to get him off levo fed at least for the last few hours, and he remains on a small dose of vasopressin. Patient remains on hydrocortisone, his hemoglobin today is low and the patient will receive 2 units of packed RBCs. ABG this morning showed a pO2 of 116 pCO2 of 44 pH of 7.36, hence I placed the patient back on FiO2 of 45%. Hemoglobin is 6.2 today, and again patient received 2 units of packed RBCs no clear-cut evidence of active bleeding or GI bleeding, he has normal color stools and no blood noted in the nasogastric tube and no coffee-ground emesis. Screening for C. diff was negative. Patient was reevaluated today on 04/19/2017, remains on mechanical ventilation, however his hemodynamic status seems to be much better today, patient is off pressors, and his blood pressures seems to be holding quite nicely. patient is scheduled to undergo tracheostomy and PEG tube placement today. in the meantime I plan to keep him on all his antibiotics, antifungal therapy, hydrocortisone, and we'll give her more fluids in the form of D5W because of his hypernatremia. his ventilator settings are basically the same, ABG showed a pO2 of 104 pCO2 of 43 pH of 7.35. electrolytes were reviewed he has hypernatremia and hyperchloremia normal renal profile noted. his hemoglobin is holding at 8.0 WBC count is 5.1 today. chest x-ray is basically about the same showing chronic changes at the left base. Patient was reevaluated today on 04/20/2017, he underwent tracheostomy and PEG tube placement yesterday. Was noted to be relatively hypotensive this morning, however the patient responded to fluid boluses, did not require placement back on any pressors. Today we'll likely use his PEG tube for feeding, I will use the PEG tube for free water flushes because of his hypernatremia, and his potassium is being corrected as per protocol. Same vent settings were noted. ABG showed a pO2 of 99 pCO2 of 44 pH of 7.38. Hemoglobin is holding at 7.8 patient is experiencing some bright red blood per rectum, hence I will recommend a surgical evaluation by Dr. kennedy. In the meantime I will arrange for [facility] specialty consultation, patient will be a fdc vent, he will be a challenge to wean from mechanical ventilation after all this time on mechanical ventilation in the ICU. Not to mention the patient has chronic lower muscle weakness related to previous trauma, and spinal cord injury. 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 Reevaluated today on 04/21/2017, patient remains hemodynamically stable, off vasopressin and off norepinephrine. Tolerating tube feeding via PEG tube nicely. Patient was accepted to go to however we delayed the transfer plans because he was having some rectal bleeding.seen by general surgery, and recommended colonoscopy on outpatient basis or when the patient is discharged out of the hospital.however that's going to be a long time from now, hence we' ll proceed today with [facility]ABG this morning on 50% showed a pO2 of 142 pCO2 of 37 pH of 7.43.chest x-ray showed mostly opacification of the left hemithorax but it was a poor quality x-ray, patient had similar x-rays in the past like this when he was rotated. Clinically I do not feel that is actual opacification of the left lung. Objective - Vital Signs Vital signs: Vital Signs Temp 97.9 F 04/21/17 04:00 Pulse 75 04/21/17 11:33 Resp 15 04/21/17 11:30 BP 112/61 04/21/17 11:30 Pulse Ox 96 04/21/17 11:30 Intake & Output 04/20/17 04/21/17 04/21/17 18:59 06:59 18:59 Intake Total 4650.081 2008.016 710 Output Total 2450 1840 800 Balance 2200.081 168.016 -90 Weight 109.7 kg 112 kg 112 kg Intake: IV 2836 1784 630 0.9 normal saline 1000 120 30 Dextrose 5% in Water 1, 1500 1625 500 000 ml @ 125 mls/hr IV . Q8H [facility] Rx#:[id number] Magnesium Sulfate-D5w Pmx 200 1 gm In Dextrose/Water 1 100ml.bag @ 100 mls/hr IVPB Q1H [facility] Rx#: [id number] Pressure Bag 36 39 levETIRAcetam IV 1,000 mg 100 100 In Saline 1 100ml.bag @ 400 mls/hr IVPB Q12HR [facility] Rx#:[id number] Intake, IV Titration 1264.081 44.016 50 Amount Ertapenem 1 gm In Sodium 50 50 Chloride 0.9% 50 ml @ 100 mls/hr IVPB DAILY [facility] Rx #:[id number] Fluconazole in NaCl,Iso- 200 Osm 400 mg In Saline 1 200ml.bag @ 100 mls/hr IVPB DAILY@1200 [facility] Rx#: [id number] Norepinephrin 16 mg-0.9% 14.081 44.016 0 Ns Pmx 16 mg In 250 ml @ Titrate IV .Q0M [facility] Rx#: [id number] Sodium Chloride 0.9% 1, 1000 000 ml @ 999 mls/hr IV . Q1H1M [facility] Rx#:[id number] Tube Feeding 10 180 30 Other 540 Output: Urine 2450 1840 800 Other: Voiding Method Indwelling Catheter Indwelling Catheter Indwelling Catheter # Bowel Movements 1 ABP, PAP, CO, CI - Last Documented Arterial Blood Pressure 116/54 - Exam Physical Exam: Revealed a 51-year-old white male, morbidly obese, on mechanical ventilation,via tracheostomy in no distress at present. tracheostomy is intact. HEENT:[ Short obese neck. Neck is supple.] [No neck masses.] [No thyromegaly.] [No JVD.] PERRLA, EOMI, moist mucous membranes. Endotracheal tube is intact. Chest: [Diminished breath sounds at the bases, especially at the left base. no crackles nor rhonchi no wheezes.] Cardiac Exam: [Normal S1 and S2, no S3 gallop, no murmur.] Abdomen: [Obese, Soft, nontender, no megaly, no rebound, no guarding, normal bowel sounds.] PEG tube is intact. Extremities: [No clubbing, no edema, no cyanosis. Significant muscle atrophy and wasting of muscles noted in lower extremities, patient is paraplegic.] Flexion contractures noted bilaterally. Neurological Exam: [No focal neurologic deficit. Except for paraplegia from the waist down. Lymphatics: No lymphadenopathy. Psychiatric: Normal mood, affect, and cannot fully assess mental status exam.] - Labs CBC & Chem 7: 04/21/17 04:09 04/21/17 04:09 Labs: Abnormal Lab Results - Last 24 Hours (Table) 04/20/17 04/20/17 04/21/17 Range/Units 17:40 17:50 00:23 RBC (4.30-5.90) m/uL Hgb (13.0-17.5) gm/dL Hct (39.0-53.0) % MCHC (31.0-37.0) g/dL RDW (11.5-15.5) % ABG pO2 (83-108) mmHg ABG Total CO2 (19-24) mmol/L ABG O2 Saturation (94-97) % Sodium (137-145) mmol/L Potassium 3.3 L (3.5-5.1) mmol/L Chloride (98-107) mmol/L Creatinine (0.66-1.25) mg/dL Glucose (74-99) mg/dL POC Glucose (mg/dL) 150 H 139 H (75-99) mg/dL Calcium (8.4-10.2) mg/dL AST (17-59) U/L ALT (21-72) U/L Alkaline Phosphatase (38-126) U/L Total Protein (6.3-8.2) g/dL Albumin (3.5-5.0) g/dL 04/21/17 04/21/17 04/21/17 Range/Units 04:09 04:09 05:21 RBC 3.19 L (4.30-5.90) m/uL Hgb 9.0 L (13.0-17.5) gm/dL Hct 29.8 L (39.0-53.0) % MCHC 30.2 L (31.0-37.0) g/dL RDW 19.6 H (11.5-15.5) % ABG pO2 (83-108) mmHg ABG Total CO2 (19-24) mmol/L ABG O2 Saturation (94-97) % Sodium 147 H (137-145) mmol/L Potassium (3.5-5.1) mmol/L Chloride 112 H (98-107) mmol/L Creatinine 0.60 L (0.66-1.25) mg/dL Glucose 145 H (74-99) mg/dL POC Glucose (mg/dL) 148 H (75-99) mg/dL Calcium 6.6 L (8.4-10.2) mg/dL AST 66 H (17-59) U/L ALT 166 H (21-72) U/L Alkaline Phosphatase 271 H (38-126) U/L Total Protein 5.3 L (6.3-8.2) g/dL Albumin 2.2 L (3.5-5.0) g/dL 04/21/17 04/21/17 04/21/17 Range/Units 05:46 08:30 11:54 RBC (4.30-5.90) m/uL Hgb (13.0-17.5) gm/dL Hct (39.0-53.0) % MCHC (31.0-37.0) g/dL RDW (11.5-15.5) % ABG pO2 142 H (83-108) mmHg ABG Total CO2 25 H (19-24) mmol/L ABG O2 Saturation 99.0 H (94-97) % Sodium (137-145) mmol/L Potassium (3.5-5.1) mmol/L Chloride (98-107) mmol/L Creatinine (0.66-1.25) mg/dL Glucose (74-99) mg/dL POC Glucose (mg/dL) 131 H 155 H (75-99) mg/dL Calcium (8.4-10.2) mg/dL AST (17-59) U/L ALT (21-72) U/L Alkaline Phosphatase (38-126) U/L Total Protein (6.3-8.2) g/dL Albumin (3.5-5.0) g/dL Microbiology - Last 24 Hours (Table) 04/18/17 13:20 Blood Culture - Preliminary Blood No Growth after 48 hours Assessment and Plan Assessment: 1 acute septic shock secondary to urinary tract infection, acute cystitis secondary to Enterobacter aerogenes and pseudomonas aeruginosa as noted in the urine. His blood cultures are positive for Enterobacter. Blood cultures negative. He remains on meropenem, and the patient is on low-dose levo fed for blood pressure support . His acute systemic candidemia is another contributing factor to his sepsis. patient required hemodynamic support and pressors for a long. Time, however he has been off pressors now since last night. Off vasopressin and off norepinephrine. On 04/16/2017, the patient is being treated for systemic candidemia with IV Diflucan. The patient is having low-grade fever and his still pressor dependent. The PICC line has been removed and the tip was sent for culture. A triple lumen catheter was inserted in the left subclavian. Blood pressures improved. He is still having some low-grade fever and I think we should be able to start gradually weaning down the pressors. He remains on IV Invanz regarding a previous Enterobacter infection of the urine and positive septicemia. On 04/17/2017, patient remains on antibiotics, and antifungal therapy, still hemodynamically unstable for trach and PEG placement. Still unable to wean, remains on mechanical ventilation, and I have restarted back on hydrocortisone. Patient is still requiring significant amount of vasopressin and norepinephrin 04/19/2017, the major change is the fact that the patient is off norepinephrine and off vasopressin. Hence we'll plan to proceed with tracheostomy and PEG tube placement today. This is scheduled to be done this afternoon by Dr. Castillo. 2 acute hypoxic respiratory failure secondary to above. Failed extubation requiring reintubation. The plan is for probable tracheostomy on 04/11/2017, however the patient's procedure got canceled due to ongoing hemodynamic changes and decision opted to wait for another 24 hours today's further stable. Meanwhile, the patient was given another spontaneous breathing trial and he failed and based on that no attempts to extubate this patient were done. We are more convinced that he will need a PEG and trach at a later stage. The patient remains hemodynamically unstable and he is not ready to undergo the procedure yet. The procedure has been postponed until his sepsis is under better control. 3 acute metabolic, lactic acidosis secondary to 1, recovered 4 history of paraplegia and neurogenic bladder. 5 acute kidney injury secondary to sepsis and septic shock, recovered 6 history of nephrolithiasis/bilateral. 7 history of multiple surgeries including skin graft for pressure sores, right ureteroscopy with lithotripsy in 2005 and external sphincterotomy 1990 and 1994. 8 hypotension and the patient is still requiring pressors for blood pressure support 9 extensive edema in lower extremities bilaterally along with superficial scale ulcerations and excoriation and sloughing in the lower extremities and coccyx. 10 leukocytosis, improved 11 acute respiratory alkalosis, improving 12 small bilateral pleural effusions. 13 abnormal LFTs with elevation and alkaline phosphatase, and ultrasound the gallbladder shows no evidence of any cholecystitis, and the liver function tests are being monitored . Rule out drug effect. Rule out Merrem affecting the patient has been switched to Invanz. On today's evaluation, LFTs remains somewhat elevated although they're improving compared to last evaluation. 14 hypernatremia, recurrent 15 anemia, stable hemoglobin for now. 16 diarrhea, possibly antibiotic induced. There is no evidence of any C. diff colitis. 17 status post tracheostomy and PEG tube placement on 04/19/2017. 18 bright red blood per rectum, will initiate surgical consultation with Dr. kennedy.please refer to full consultation by Dr. kennedy. Recommendation: Continue ventilatory support, hemodynamic support, antibiotics and antifungal therapy, patient remains on Invanz, fluconazole, will cut down Solu-Cortef to25 mg IV push every 8 hours. we will proceed with [facility], and decide whether the patient could be transferred to the facility today. Prognosis remains poor and guarded, patient will need a assistant terminal manager weaning process.discussed his condition with mother and brother at bedside, critical care time is 35 minutes. Time with Patient: Greater than 30
[2017-04-21 12:35] VITALS: TEMP 98
--- NOTE | 2017-04-21 12:36 | P.DS ---
Providers Date of admission: 03/29/17 23:39 Attending physician: Marito Owens Consults: 04/20/17 10:07 Consult Physician Urgent Consulting Provider: Himanshu Regan Consult Reason/Comments: Rectal Bleeding Do you want consulting provider notified?: Yes 03/30/17 08:17 Consult Physician Routine Consulting Provider: Kenton Oliver Consult Reason/Comments: hematuria Do you want consulting provider notified?: Yes 03/31/17 23:55 Consult Physician Routine Consulting Provider: Trenton Oreilly Consult Reason/Comments: Uremia Do you want consulting provider notified?: Already Contacted Consult Physician Routine Consulting Provider: Moise Thomas Consult Reason/Comments: seizures Do you want consulting provider notified?: Already Contacted 03/31/17 23:56 Consult Physician Stat Consulting Provider: Adriano Guadalupe Consult Reason/Comments: ICU management Do you want consulting provider notified?: Already Contacted 04/07/17 10:03 Consult Physician Routine Consulting Provider: Will Castillo Consult Reason/Comments: Trach/Peg Do you want consulting provider notified?: Yes Primary care physician: Marito Owens - Discharge Diagnosis(es) (1) Paraplegia following spinal cord injury Current Visit: Yes Status: Acute (2) Gross hematuria Current Visit: Yes Status: Resolved (3) Uremia Current Visit: Yes Status: Acute (4) Seizure Current Visit: Yes Status: Acute (5) Toxic metabolic encephalopathy Current Visit: Yes Status: Resolved (6) Septic shock Current Visit: Yes Status: Acute Hospital Course: This is discharge summary 51-year-old white male essentially admitted for UTI. He developed sepsis with septic shock and had a long course of hospitalization including ventilatory support secondary to cardiorespiratory failure. The patient needed ventilatory support and ended up having tracheostomy with PEG tubing for food. The patient has an underlying history of C5-6 Quadriplegia.Due to the inability to wean the patient off properly so that he could breathe on his own after the septic shock, he will be discharged to [facility] for ventilatory management once he is stabilized from critical care and multiple consultants. The patient is in no significant pain at this time and his affect is appropriate. Patient Condition at Discharge: Stable Plan - Discharge Summary New Discharge Prescriptions: New Acetaminophen Tab [Tylenol] 650 mg PO Q6HR PRN tab PRN Reason: Fever And/ Or Pain Artificial Tears-Hypromellose [Artificial Tear Drops] 1 drops BOTH EYES QID PRN bottle PRN Reason: Dry Eye(S) Bisacodyl [Dulcolax] 10 mg RECTAL Q48H supp Chlorhexidine Gluconate [Peridex] 15 ml MUCOUS MEM BID solution Cholestyramine (with Sugar) [Questran Packet] 4 gm PEG/G-TUBE BID@1000,1800 packet Fluconazole Oral Susp [Diflucan Oral Susp] 400 mg PO DAILY #0 ml Heparin Sodium,Porcine [Heparin Sodium] 5,000 unit SQ Q8HR vial Insulin Aspart [NovoLOG (formulary)] 0 unit SQ Q6HR vial Ipratropium-Albuterol Nebulize [Duoneb 0.5 mg-3 mg/3 ml Soln] 3 ml INHALATION RT-Q4H ampul.neb Loperamide [Imodium] 2 mg PO QID PRN cap PRN Reason: Diarrhea Menthol-Zinc Oxide Oint [Risamine Oint] 1 applic TOPICAL BID PRN applic PRN Reason: Skin Irritation Ondansetron [Zofran] 4 mg IVP Q8HR PRN vial PRN Reason: Nausea And Vomiting Continue Lansoprazole [Prevacid] 15 mg PO DAILY Discharge Medication List Lansoprazole [Prevacid] 15 mg PO DAILY 03/29/17 [History] Acetaminophen Tab [Tylenol] 650 mg PO Q6HR PRN tab 04/21/17 [Rx] Artificial Tears-Hypromellose [Artificial Tear Drops] 1 drops BOTH EYES QID PRN bottle 04/21/17 [Rx] Bisacodyl [Dulcolax] 10 mg RECTAL Q48H supp 04/21/17 [Rx] Chlorhexidine Gluconate [Peridex] 15 ml MUCOUS MEM BID solution 04/21/17 [Rx] Cholestyramine (with Sugar) [Questran Packet] 4 gm PEG/G-TUBE BID@1000,1800 packet 04/21/17 [Rx] Fluconazole Oral Susp [Diflucan Oral Susp] 400 mg PO DAILY #0 ml 04/21/17 [Rx] Heparin Sodium,Porcine [Heparin Sodium] 5,000 unit SQ Q8HR vial 04/21/17 [Rx] Insulin Aspart [NovoLOG (formulary)] 0 unit SQ Q6HR vial 04/21/17 [Rx] Ipratropium-Albuterol Nebulize [Duoneb 0.5 mg-3 mg/3 ml Soln] 3 ml INHALATION RT -Q4H ampul.neb 04/21/17 [Rx] Loperamide [Imodium] 2 mg PO QID PRN cap 04/21/17 [Rx] Menthol-Zinc Oxide Oint [Risamine Oint] 1 applic TOPICAL BID PRN applic [Rx] Ondansetron [Zofran] 4 mg IVP Q8HR PRN vial 04/21/17 [Rx] Follow up Appointment(s)/Referral(s): Marito Owens MD [Primary Care Provider] - 1-2 days
[2017-04-21 15:57] VITALS: BP 95/59; PULSE 89; RESP 18
--- NOTE | 2017-04-21 16:20 | PN ---
PROGRESS NOTE DATE OF SERVICE: 04/21/2017 REASON FOR FOLLOWUP: 1. Enterobacter bacteremia and UTI, adequately treated. 2. 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 Repeat blood culture has been negative. INTERVAL HISTORY: The patient is afebrile, has been breathing comfortably. The patient denies having any visual changes during this admission. She denies having any chest pain or any abdominal pain. No nausea or vomiting has been noticed. Diarrhea has improved and no further blood in the stools has been noticed. PHYSICAL EXAMINATION: Blood pressure is 92/41 with a pulse of 90, temperature of 98. He is 95% on 40% FiO2. General description is a middle-aged male lying in bed in no distress. RESPIRATORY SYSTEM: Unlabored breathing. Clear to auscultation anteriorly. HEART: S1, S2. Regular rate and rhythm. ABDOMEN: Soft. No tenderness. LABS: Hemoglobin is 9, white count 7.0 with a BUN of 13, creatinine 0.60. Liver enzymes are slightly elevated. Blood culture repeat and catheter culture have been negative. DIAGNOSTIC IMPRESSION/PLAN: 1. Patient with enterobacter bacteremia and urinary tract infection, adequately treated. Has finished almost 3 weeks of antibiotic therapy. Invanz discontinued. 2. Patient with Kim parapsilosis fungemia. Source is PICC line. Will discontinue it. Patient with no vision changes no suspicious for a retinitis and no abdominal pain , no suspicious for hepatosplenic candidiasis. Patient did have ultrasound that did not show any masses. He will be given another 2 weeks of Diflucan down the PEG tube and close outpatient followup. Family was present at the bedside. Their questions and concerns were answered. MMODL / IJN: [id number] / [id number]
== END 2017-04-21 16:06 | DRG 4 ==
LOC: EC 18:11 → 4MS4W 23:39 → 6ICU 03-31 16:56
PROVIDERS: ADMIT Family Medicine; ATTEND Family Medicine
PROC: 3E1K88Z Irrigation of Genitourinary Tract using Irrigating Substance, Via Natural or Artificial Opening Endoscopic (ICD-10-PCS; principal; 2017-03-31)
PROC: 5A1955Z Respiratory Ventilation, Greater than 96 Consecutive Hours (ICD-10-PCS; 2017-04-01)
PROC: 06HM33Z Insertion of Infusion Device into Right Femoral Vein, Percutaneous Approach (ICD-10-PCS; 2017-04-01)
PROC: 5A09357 Assistance with Respiratory Ventilation, Less than 24 Consecutive Hours, Continuous Positive Airway Pressure (ICD-10-PCS; 2017-04-06)
PROC: 5A1955Z Respiratory Ventilation, Greater than 96 Consecutive Hours (ICD-10-PCS; 2017-04-07)
PROC: 02HV33Z Insertion of Infusion Device into Superior Vena Cava, Percutaneous Approach (ICD-10-PCS; 2017-04-07)
PROC: 03HY32Z Insertion of Monitoring Device into Upper Artery, Percutaneous Approach (ICD-10-PCS; 2017-04-08)
PROC: 4A133B1 Monitoring of Arterial Pressure, Peripheral, Percutaneous Approach (ICD-10-PCS; 2017-04-08)
PROC: 4A133J1 Monitoring of Arterial Pulse, Peripheral, Percutaneous Approach (ICD-10-PCS; 2017-04-08)
PROC: 30233N1 Transfusion of Nonautologous Red Blood Cells into Peripheral Vein, Percutaneous Approach (ICD-10-PCS; 2017-04-18)
PROC: 0B113F4 Bypass Trachea to Cutaneous with Tracheostomy Device, Percutaneous Approach (ICD-10-PCS; 2017-04-19)
PROC: 0DH63UZ Insertion of Feeding Device into Stomach, Percutaneous Approach (ICD-10-PCS; 2017-04-19)
DX: N30.01 Acute cystitis with hematuria (principal); N17.0 Acute kidney failure with tubular necrosis; R65.21 Severe sepsis with septic shock; A41.52 Sepsis due to Pseudomonas; J90 Pleural effusion, not elsewhere classified; E87.4 Mixed disorder of acid-base balance; G82.50 Quadriplegia, unspecified; B37.7 Candidal sepsis; G92 Toxic encephalopathy; J96.01 Acute respiratory failure with hypoxia; E87.0 Hyperosmolality and hypernatremia; J98.11 Atelectasis; E87.70 Fluid overload, unspecified; E87.8 Other disorders of electrolyte and fluid balance, not elsewhere classified; D63.8 Anemia in other chronic diseases classified elsewhere; E66.9 Obesity, unspecified; E86.0 Dehydration; E87.6 Hypokalemia; K21.9 Gastro-esophageal reflux disease without esophagitis; K76.0 Fatty (change of) liver, not elsewhere classified; M62.50 Muscle wasting and atrophy, not elsewhere classified, unspecified site; N20.0 Calculus of kidney; N31.9 Neuromuscular dysfunction of bladder, unspecified; N32.89 Other specified disorders of bladder; D72.829 Elevated white blood cell count, unspecified; T38.0X5A Adverse effect of glucocorticoids and synthetic analogues, initial encounter; T88.4XXA Failed or difficult intubation, initial encounter; R56.9 Unspecified convulsions; E83.51 Hypocalcemia; Z87.442 Personal history of urinary calculi; Z87.440 Personal history of urinary (tract) infections; Z74.01 Bed confinement status; Z86.14 Personal history of Methicillin resistant Staphylococcus aureus infection; Z79.899 Other long term (current) drug therapy; Z88.2 Allergy status to sulfonamides; Z68.31 Body mass index [BMI] 31.0-31.9, adult
CPT/HCPCS: 36415; 36569; 36600; 43246; 51798; 70450; 71010; 71045; 74018; 74176; 76705; 76937; 80048; 80053; 80202; 81001; 82040; 82310; 82330; 82533; 82550; 82805; 83036; 83605; 83735; 84075; 84100; 84132; 84450; 84460; 84520; 85025; 85027; 85610; 85730; 86850; 86900; 86901; 86920; 87040; 87070; 87077; 87086; 87186; 87205; 87324; 87493; 90686; 90732; 93306; 94002; 94003; 94640; 94660; 94770; 95819; 96360; 99285

== ENCOUNTER 2017-08-09 14:28 | Inpatient (IN) | payer MEDICARE, BC ==
--- NOTE | 2017-08-09 15:06 | ED ---
Seizure HPI - General Chief Complaint: Seizure Stated Complaint: Seizures Time Seen by Provider: 08/09/17 14:37 Source: EMS Mode of arrival: EMS Limitations: physical limitation - History of Present Illness Initial Comments: Is a 51-year-old male with a history of quadriparesis, seizures on Keppra 1000 g twice a day who presents emergency department for a seizure. The patient states that it happened at home. He states that the seizure lasted a few minutes and then subsided on its own. He is now back to his baseline per family at bedside. The patient states he has been compliant with his medications. He has noted that he's felt hot over the last few days however has not documented a fever. Denies any cough, runny nose, sore throat, or earaches. He does admit to little bit of nausea and a couple episodes of diarrhea. Apparently the stomach flu has been going through the household. The patient states that he has not had a significant amount of diarrhea however. No blood in the stool. He does state that he's got chronic UTIs secondary to kidney stones. He is waiting to get his decubitus ulcers treated before he has the kidney stones removed. He has noticed that his urine has been more cloudy recently. He denies any other acute complaints at this time. - Related Data Home Medications Medication Instructions Recorded Confirmed levETIRAcetam [Keppra] 1,000 mg PO Q12HR 08/07/17 08/07/17 Allergies Allergy/AdvReac Type Severity Reaction Status Date / Time Sulfa (Sulfonamide Allergy Rash/Hives Verified 08/09/17 14:42 Antibiotics) Review of Systems ROS Statement: Those systems with pertinent positive or pertinent negative responses have been documented in the HPI. ROS Other: All systems not noted in ROS Statement are negative. 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 History of kidney stones. Freq. UTI's; Sepsis History of Any Multi-Drug Resistant Organisms: MRSA, Other MDRO Date of last positivie culture/infection: 10/05/11 MRSA MDRO Source:: Llft buttock-MRSA Additional Past Surgical History / Comment(s): multiple surgeries/skin grafts for pressure sores, right ureteroscopy with lithotripsy in 2005, external sphincetrotomy 1990 and 1994. Cystoscopy with irrigation of blood clots from bladder on 03/31/2017.Hx of Trach. & Peg tube/ since removed 04/27 Past Anesthesia/Blood Transfusion Reactions: No Reported Reaction Past Psychological History: No Psychological Hx Reported Smoking Status: Never smoker Past Alcohol Use History: None Reported Past Drug Use History: None Reported - Past Family History Mother Family Medical History: No Reported History Father Family Medical History: No Reported History General Exam - General Exam Comments Initial Comments: Constitutional: Awake alert Appears comfortable Head: Normocephalic atraumatic Eyes: no conjunctival injection No scleral icterus EOMI, pupils are 3 mm and reactive bilaterally Neck: No JVD Supple Heart: Regular rate rhythm normal S1-S2 no murmurs Lungs: Clear to auscultation bilaterally No wheezing No rales Abdomen: Soft nondistended nontender, obese Extremities: Non edematous DP pulses intact Radial pulses intact Neuro: A&Ox3, the patient has flaccid paralysis of bilateral lower extremities, he is able to move his hands and shake my hand bilaterally however not able to lift his arms off the gurney which is chronic per the patient Psych: Appropriate mood and affect Limitations: physical limitation Course Vital Signs 08/09/17 08/09/17 08/09/17 14:36 15:49 16:00 Temperature 97.8 F Pulse Rate 108 H 103 H 102 H Respiratory 18 18 18 Rate Blood Pressure 95/53 82/60 86/53 O2 Sat by Pulse 97 95 94 L Oximetry - Reevaluation(s) Reevaluation #1: 08/09/17 16:18 EKG showing normal sinus rhythm with a rate of 100. There is no abnormal ST segment changes. There is a T-wave inversion in V2, V3. QTC is 449. Other intervals normal. No ectopy. There appears to be an incomplete right bundle- branch block Medical Decision Making - Medical Decision Making Is a 51-year-old male who presents emergency department for breakthrough seizure. The patient has been compliant with his medications. Patient was evaluated and had no new focal neurologic deficits. His urine was noted to be very cloudy. I suspect that the patient is developing another urinary tract infection which is complicated by kidney stones. Based on previous culture on August 02 it is susceptible to Rocephin which the patient was started on. I spoke with Dr. Owens about this and he stated that he felt that the patient would require admission for the urinary tract infection and breakthrough seizure. Patient was updated of this and agrees. All questions answered. Of note the patient's blood pressure is low however this is typical for the patient and he states that it is always low. - Lab Data Result diagrams: 08/09/17 15:16 08/09/17 15:16 Lab Results 08/09/17 08/09/17 08/09/17 Range/Units 15:16 15:16 15:16 WBC 8.9 (3.8-10.6) k/uL RBC 4.20 L (4.30-5.90) m/uL Hgb 11.2 L (13.0-17.5) gm/dL Hct 31.4 L (39.0-53.0) % MCV 74.8 L (80.0-100.0) fL MCH 26.7 (25.0-35.0) pg MCHC 35.7 (31.0-37.0) g/dL RDW 14.3 (11.5-15.5) % Plt Count 228 (150-450) k/uL Neutrophils % 78 % Lymphocytes % 14 % Monocytes % 5 % Eosinophils % 3 % Basophils % 0 % Neutrophils # 7.0 (1.3-7.7) k/uL Lymphocytes # 1.2 (1.0-4.8) k/uL Monocytes # 0.4 (0-1.0) k/uL Eosinophils # 0.2 (0-0.7) k/uL Basophils # 0.0 (0-0.2) k/uL Microcytosis Slight PT (9.0-12.0) sec INR (<1.2) APTT (22.0-30.0) sec Sodium 126 L (137-145) mmol/L Potassium 3.5 (3.5-5.1) mmol/L Chloride 87 L (98-107) mmol/L Carbon Dioxide 15 L (22-30) mmol/L Anion Gap 24 mmol/L BUN 78 H (9-20) mg/dL Creatinine 2.80 H (0.66-1.25) mg/dL Est GFR (CKD-EPI)AfAm 29 (>60 ml/min/1.73 sqM) Est GFR (CKD-EPI)NonAf 25 (>60 ml/min/1.73 sqM) Glucose 108 H (74-99) mg/dL Plasma Lactic Acid Aaron 0.8 (0.7-2.0) mmol/L Calcium 8.6 (8.4-10.2) mg/dL Total Bilirubin 0.6 (0.2-1.3) mg/dL AST 17 (17-59) U/L ALT 25 (21-72) U/L Alkaline Phosphatase 98 (38-126) U/L Troponin I (0.000-0.034) ng/mL Total Protein 7.0 (6.3-8.2) g/dL Albumin 4.0 (3.5-5.0) g/dL Urine Color Urine Appearance (Clear) Urine pH (5.0-8.0) Ur Specific Grayson (1.001-1.035) Urine Protein (Negative) Urine Glucose (UA) (Negative) Urine Ketones (Negative) Urine Blood (Negative) Urine Nitrite (Negative) Urine Bilirubin (Negative) Urine Urobilinogen (<2.0) mg/dL Ur Leukocyte Esterase (Negative) Urine RBC (0-5) /hpf Urine WBC (0-5) /hpf Urine WBC Clumps (None) /hpf Ur Squamous Epith Cells (0-4) /hpf Urine Bacteria (None) /hpf Urine Yeast (Budding) (None) /hpf Influenza Type A RNA (Not Detectd) Influenza Type B (PCR) (Not Detectd) 08/09/17 08/09/17 08/09/17 Range/Units 15:16 15:16 15:30 WBC (3.8-10.6) k/uL RBC (4.30-5.90) m/uL Hgb (13.0-17.5) gm/dL Hct (39.0-53.0) % MCV (80.0-100.0) fL MCH (25.0-35.0) pg MCHC (31.0-37.0) g/dL RDW (11.5-15.5) % Plt Count (150-450) k/uL Neutrophils % % Lymphocytes % % Monocytes % % Eosinophils % % Basophils % % Neutrophils # (1.3-7.7) k/uL Lymphocytes # (1.0-4.8) k/uL Monocytes # (0-1.0) k/uL Eosinophils # (0-0.7) k/uL Basophils # (0-0.2) k/uL Microcytosis PT 10.2 (9.0-12.0) sec INR 1.0 (<1.2) APTT 32.6 H (22.0-30.0) sec Sodium (137-145) mmol/L Potassium (3.5-5.1) mmol/L Chloride (98-107) mmol/L Carbon Dioxide (22-30) mmol/L Anion Gap mmol/L BUN (9-20) mg/dL Creatinine (0.66-1.25) mg/dL Est GFR (CKD-EPI)AfAm (>60 ml/min/1.73 sqM) Est GFR (CKD-EPI)NonAf (>60 ml/min/1.73 sqM) Glucose (74-99) mg/dL Plasma Lactic Acid Aaron (0.7-2.0) mmol/L Calcium (8.4-10.2) mg/dL Total Bilirubin (0.2-1.3) mg/dL AST (17-59) U/L ALT (21-72) U/L Alkaline Phosphatase (38-126) U/L Troponin I <0.012 (0.000-0.034) ng/mL Total Protein (6.3-8.2) g/dL Albumin (3.5-5.0) g/dL Urine Color Urine Appearance (Clear) Urine pH (5.0-8.0) Ur Specific Grayson (1.001-1.035) Urine Protein (Negative) Urine Glucose (UA) (Negative) Urine Ketones (Negative) Urine Blood (Negative) Urine Nitrite (Negative) Urine Bilirubin (Negative) Urine Urobilinogen (<2.0) mg/dL Ur Leukocyte Esterase (Negative) Urine RBC (0-5) /hpf Urine WBC (0-5) /hpf Urine WBC Clumps (None) /hpf Ur Squamous Epith Cells (0-4) /hpf Urine Bacteria (None) /hpf Urine Yeast (Budding) (None) /hpf Influenza Type A RNA Not Detected (Not Detectd) Influenza Type B (PCR) Not Detected (Not Detectd) 08/09/17 Range/Units 15:45 WBC (3.8-10.6) k/uL RBC (4.30-5.90) m/uL Hgb (13.0-17.5) gm/dL Hct (39.0-53.0) % MCV (80.0-100.0) fL MCH (25.0-35.0) pg MCHC (31.0-37.0) g/dL RDW (11.5-15.5) % Plt Count (150-450) k/uL Neutrophils % % Lymphocytes % % Monocytes % % Eosinophils % % Basophils % % Neutrophils # (1.3-7.7) k/uL Lymphocytes # (1.0-4.8) k/uL Monocytes # (0-1.0) k/uL Eosinophils # (0-0.7) k/uL Basophils # (0-0.2) k/uL Microcytosis PT (9.0-12.0) sec INR (<1.2) APTT (22.0-30.0) sec Sodium (137-145) mmol/L Potassium (3.5-5.1) mmol/L Chloride (98-107) mmol/L Carbon Dioxide (22-30) mmol/L Anion Gap mmol/L BUN (9-20) mg/dL Creatinine (0.66-1.25) mg/dL Est GFR (CKD-EPI)AfAm (>60 ml/min/1.73 sqM) Est GFR (CKD-EPI)NonAf (>60 ml/min/1.73 sqM) Glucose (74-99) mg/dL Plasma Lactic Acid Aaron (0.7-2.0) mmol/L Calcium (8.4-10.2) mg/dL Total Bilirubin (0.2-1.3) mg/dL AST (17-59) U/L ALT (21-72) U/L Alkaline Phosphatase (38-126) U/L Troponin I (0.000-0.034) ng/mL Total Protein (6.3-8.2) g/dL Albumin (3.5-5.0) g/dL Urine Color Yellow Urine Appearance Turbid (Clear) Urine pH 6.5 (5.0-8.0) Ur Specific Grayson 1.015 (1.001-1.035) Urine Protein 2+ H (Negative) Urine Glucose (UA) Negative (Negative) Urine Ketones Negative (Negative) Urine Blood Moderate H (Negative) Urine Nitrite Negative (Negative) Urine Bilirubin Negative (Negative) Urine Urobilinogen <2.0 (<2.0) mg/dL Ur Leukocyte Esterase Large H (Negative) Urine RBC 99 H (0-5) /hpf Urine WBC >182 H (0-5) /hpf Urine WBC Clumps Many H (None) /hpf Ur Squamous Epith Cells 10 H (0-4) /hpf Urine Bacteria Many H (None) /hpf Urine Yeast (Budding) Many H (None) /hpf Influenza Type A RNA (Not Detectd) Influenza Type B (PCR) (Not Detectd) Disposition Clinical Impression: Breakthrough seizure, UTI (urinary tract infection) Disposition: ADMITTED IP TO THIS HOSP Condition: Stable
[2017-08-09 15:34] LABS: Basophils % (A) 0 %; Eosinophils # (A) 0.2 k/uL (0-0.7); Eosinophils % (A) 3 %; HCT 31.4 % (39.0-53.0); HGB 11.2 gm/dL (13.0-17.5); Lymphocytes # (A) 1.2 k/uL (1.0-4.8); Lymphocytes % (A) 14 %; MCH 26.7 pg (25.0-35.0); MCHC 35.7 g/dL (31.0-37.0); MCV 74.8 fL (80.0-100.0); Mean Platelet Volume 7.8; Microcytosis Slight; Monocytes # (A) 0.4 k/uL (0-1.0); Monocytes % (A) 5 %; Neutrophils % (A) 78 %; Platelet Count 228 k/uL (150-450); RDW 14.3 % (11.5-15.5); WBC 8.9 k/uL (3.8-10.6)
--- NOTE | 2017-08-09 15:35 | XR ---
EXAMINATION TYPE: XR chest 1V portable DATE OF EXAM: 08/09/2017 COMPARISON: 04/21/2017 HISTORY: Fever TECHNIQUE: Single frontal view of the chest is obtained. FINDINGS: There is left-sided consolidation and pleural effusion. Right lung is clear. Heart is enla rged. Biapical pleural thickening noted. Hypertrophic changes of the spine noted. Portions of the rig ht lateral costophrenic angle not included on exam. No obvious pneumothorax. IMPRESSION: 1. Left lower lobe infiltrate and small pleural effusion.
[2017-08-09 15:39] LABS: Partial Thromboplastin Time 32.6 sec (22.0-30.0); Prothrombin Time 10.2 sec (9.0-12.0)
[2017-08-09] MEDS: SODIUM CHLORIDE 0.9% 500 ML IV SCH ×2 (15:40→16:35)
[2017-08-09 15:41] LABS: Calcium 8.6 mg/dL (8.4-10.2); Potassium 3.5 mmol/L (3.5-5.1); Total Bilirubin 0.6 mg/dL (0.2-1.3)
[2017-08-09 16:09] LABS: Appearance,Urine Turbid (Clear); Bacteria,Urine Many /hpf; Bilirubin,Urine Negative (Negative); Blood,Urine Moderate (Negative); Budding Yeast,Urine Many /hpf; Color,Urine Yellow; Glucose,Urine (UA) Negative (Negative); Ketones,Urine Negative (Negative); Leukocyte Esterase,Urine Large (Negative); Nitrite,Urine Negative (Negative); PH, Urine 6.5 (5.0-8.0); Protein,Urine 2+ (Negative); RBC,Urine 99 /hpf (0-5); Specific Gravity,Urine 1.015 (1.001-1.035); Squamous Epithelial Cell,Urine 10 /hpf (0-4); Urobilinogen,Urine <2.0 mg/dL (<2.0); WBC,Urine >182 /hpf (0-5)
[2017-08-09] MEDS ORDERED: cefTRIAXone IN SWFI 1,000 MG/10 ML SYRINGE IVP STA (16:15)
[2017-08-09] MEDS ORDERED: ONDANSETRON 4 MG/2 ML VIAL IVP PRN (16:52)
[2017-08-09] MEDS ORDERED: NALOXONE 0.4 MG/ML 1 ML VIAL IV PRN (16:52)
[2017-08-09] MEDS: SODIUM CHLORIDE 0.9% 1,000 ML IV SCH (18:26)
[2017-08-09] MEDS ORDERED: LEVOFLOXACIN 500 MG TAB PO ONE (21:00)
[2017-08-09] MEDS ORDERED: LEVOFLOXACIN 500MG-D5W PMX 500 MG in DEXTROSE/WATER 1 100ML.BAG IVPB STA (21:15)
[2017-08-09] MEDS: levETIRAcetam 500 MG TAB PO SCH (21:46)
[2017-08-10] MEDS: SODIUM CHLORIDE 0.9% 1,000 ML IV SCH ×3 (05:29→20:21)
[2017-08-10] MEDS: levETIRAcetam 500 MG TAB PO SCH (09:00)
[2017-08-10 09:46] LABS: Basophils % (A) 0 %; Eosinophils # (A) 0.2 k/uL (0-0.7); Eosinophils % (A) 3 %; HCT 29.8 % (39.0-53.0); HGB 10.2 gm/dL (13.0-17.5); Lymphocytes # (A) 0.8 k/uL (1.0-4.8); Lymphocytes % (A) 16 %; MCH 26.7 pg (25.0-35.0); MCHC 34.4 g/dL (31.0-37.0); MCV 77.7 fL (80.0-100.0); Mean Platelet Volume 7.8; Monocytes # (A) 0.2 k/uL (0-1.0); Monocytes % (A) 4 %; Neutrophils # (A) 3.6 k/uL (1.3-7.7); Neutrophils % (A) 75 %; Platelet Count 178 k/uL (150-450); RBC 3.83 m/uL (4.30-5.90); RDW 14.4 % (11.5-15.5); WBC 4.8 k/uL (3.8-10.6)
[2017-08-10 10:19] LABS: Calcium 8.3 mg/dL (8.4-10.2); Potassium 3.4 mmol/L (3.5-5.1)
[2017-08-10 13:43] VITALS: BMI 28.2
--- NOTE | 2017-08-10 14:28 | CONS ---
CONSULTATION DATE OF SERVICE: 08/10/2017 REASON FOR CONSULTATION: 1. Urinary tract infection. 2. Sacral pressure ulcer. HISTORY OF PRESENT ILLNESS: Patient is a 51-year-old male with a past medical history significant for paraplegia secondary to C5-6 injury, history of recurrent UTI, gastroesophageal reflux disease and a pressure ulcer. He did have recently prolonged hospital stay at this facility where the patient did have acute respiratory failure which required trach with evidence of bacteremia and fungemia for the patient subsequent transfer to [facility]. Overall, the patient recovered and trach has been closed and the patient currently at home since May of 2017. The patient has been brought to the [facility] yesterday, apparently after the patient did have a breakthrough seizure. Apparently that happened at home. Subsequently, the patient has been admitted to this facility for further workup for the same. The patient did mention that recently he did provide a clean specimen to his urologist which did show the patient did have an infection and the urologist told him that he has to be on IV antibiotic. The patient also had an x-ray done which showed some left lower lobe infiltrate. Patient was started on levothyroxine and Infectious Disease was consulted for further recommendation of antibiotic therapy. The patient also have a wound on his sacral area, which he said that he developed while he was here in the ICU and currently being taken care of by the [facility] home and being treated with . Prior to that he was on Aquacel Silver dressing. Patient had no sensation, has no pain in that area or any significant drainage. REVIEW OF SYSTEMS: CONSTITUTIONAL: Positive for weakness but no high-grade fever. EYES: No complaint. ENT: No complaint. RESPIRATORY: No complaint. CARDIOVASCULAR: No complaint. GENITOURINARY: As per HPI. GASTROINTESTINAL: No complaint. MUSCULOSKELETAL: No complaint. INTEGUMENTARY: As per HPI. PSYCHOLOGICAL: No complaint. ENDOCRINE: No complaint. NEUROLOGIC: No complaint. PAST MEDICAL HISTORY: Significant for paraplegia secondary to C5-C6 injury, history of recurrent UTI, gastroesophageal reflux disease. Did have Kim parapsilosis fungemia significant PICC infection and MRSA infection. He did have ureteroscopy and lithotripsy. SOCIAL HISTORY: No history of smoking, drinking or drug use. FAMILY HISTORY: No pertinent findings noticed. ALLERGIES: SULFA. MEDICATION: Currently include the patient is on Rocephin, HCTZ, only one dose of Keppra, Levaquin, Narcan, Zofran, and IV fluid. PHYSICAL EXAMINATION: Blood pressure 96/63 with a pulse of 72, temperature 97.7. He is 96% on room air. is percent we description is a middle-aged male lying in bed in no distress. No tachypnea or accessory muscles for respiration use. HEENT EXAMINATION: Shows slight pallor. No scleral icterus. Oral mucosa is dry. No pharyngeal edema or thrush. NECK: Trachea central, no thyromegaly. LUNGS: Unlabored breathing, clear to auscultation anteriorly. No wheeze or crackle. HEART: S1, S2. Regular rate and rhythm. ABDOMEN: Soft, no tenderness. No guarding or rigidity. No organomegaly. EXTREMITIES: No edema of the feet. Examination of the sacral area did have stage II pressure ulcer with good granulation tissue, minimal drainage, but no slough tissue. NEUROLOGICAL: Patient is awake, alert, oriented x3, mood and affect normal. LABS: Hemoglobin is 10.2 with a white count 4.8, BUN of 61, creatinine 1.72. Urine has been positive, culture pending. Influenza serology was negative. Review of his cultures done in the outpatient setting on 08/02 did show Pseudomonas aeruginosa and E coli, both resistant to the quinolones. DIAGNOSTIC IMPRESSION AND PLAN: 1. Patient with a urinary tract infection with recent culture done in the outpatient setting did show Pseudomonas aeruginosa as well as Escherichia coli, both are resistant to quinolones, likely the same pathogen as the patient has not been getting treated for the same. 2. Patient with stage II pressure ulcer with no evidence of , would recommend local wound care. PLAN: 1. Discontinue the Levaquin. 2. Will start the patient on cefepime 2 g to cover for the Pseudomonas and the E coli urinary tract infection. 3. Aquacel Silver dressing to the wound to be changed q. 24 to 48, depending upon the drainage and keep the area off the pressure. 4. Follow up on his clinical condition and culture to further adjust medication if needed. Thank you for this consultation. Will follow this patient along with you. MMODL / IJN: [id number] /
[2017-08-10] MEDS ORDERED: LORazepam 2 MG/ML INJ IV PRN (14:59)
[2017-08-10] MEDS: CEFEPIME 2 GM in SODIUM CHLORIDE 0.9% 50 ML IVPB SCH ×2 (15:07→20:20)
[2017-08-10] MEDS ORDERED: Potassium Replacement Protocol 1 EACH MISC MISCELLANE PRN (15:10)
--- NOTE | 2017-08-10 15:11 | P.HPIM ---
History of Present Illness H&P Date: 08/10/17 (This is the first time on taking care of the patient, covering for Dr. Owens) This is a pleasant 51 years old male with past medical history of GERD, seizure on Keppra 1000 twice a day, quadriplegic due to sports related to the trauma hip presents to the emergency room this time because of seizure. 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, and upon the request of the patient, stated that patient while he was sitting he rolled his eyes up towards and he become unresponsive for 3 minutes but then wake up without any clonic tonic activities which is similar for his typical previous seizure Patient also was stating he will felt sick the last couple day and he was not eating and drinking much Review of Systems 14 point systemic review are negative except was mentioned in the HPI Past Medical History Past Medical History: GERD/Reflux, Seizure Disorder, Skin Disorder Additional Past Medical History / Comment(s): 08-09-17 family stated that tues thru sun pt has had nausea and decreased appetite. othe pmh: Quadriplegic due to hockey-related injury toC5 through C6 in 1984. History of kidney stones. Freq. UTI's; Sepsis -,past decubs and current decub lt buttock. History of Any Multi-Drug Resistant Organisms: MRSA, Other MDRO Date of last positivie culture/infection: 10/05/11 MRSA MDRO Source:: Left buttock-MRSA Additional Past Surgical History / Comment(s): multiple surgeries/skin grafts for pressure sores, right ureteroscopy with lithotripsy in 2005, external sphincetrotomy 1990 and 1994. Cystoscopy with irrigation of blood clots from bladder on 03/31/2017.Hx of Trach. & Peg tube/ since removed 04/27 Past Anesthesia/Blood Transfusion Reactions: No Reported Reaction Smoking Status: Never smoker - Past Family History Mother Family Medical History: No Reported History Father Family Medical History: No Reported History Medications and Allergies Home Medications Medication Instructions Recorded Confirmed Type levETIRAcetam [Keppra] 1,000 mg PO Q12HR 08/07/17 08/09/17 History Lansoprazole [Prevacid] 15 mg PO DAILY PRN 08/09/17 08/09/17 History Allergies Allergy/AdvReac Type Severity Reaction Status Date / Time Sulfa (Sulfonamide Allergy Rash/Hives Verified 08/09/17 19:51 Antibiotics) Physical Exam Vitals: Vital Signs Temp Pulse Pulse Resp BP BP Pulse Ox 08/10/17 07:15 98 08/10/17 05:30 97.6 F 72 16 96/63 96 08/09/17 22:38 97.6 F 85 16 74/46 97 08/09/17 19:32 96.7 F L 84 16 73/46 94 L 08/09/17 18:42 98.2 F 92 18 112/68 98 08/09/17 16:00 102 H 18 86/53 94 L 08/09/17 15:49 103 H 18 82/60 95 Intake and Output 08/09/17 08/10/17 08/10/17 22:59 06:59 14:59 Intake Total 600 600 Output Total 300 200 Balance 300 400 Intake: Oral 600 600 Output: Urine 300 200 Other: # Bowel Movements 0 Weight 99.79 kg Constitutional: No acute distress, conversant, pleasant Eyes: Anicteric sclerae, moist conjunctiva, no lid-lag PERRLA ENMT: NC/AT Oropharynx clear, no erythema, exudates Neck: Supple, FROM, no masses, or JVD No carotid bruits No thyromegaly Lungs: Clear to auscultation Clear to percussion Normal respiratory effort, no accessory muscle use Cardiovascular: Heart regular in rate and rhythm, No murmurs, gallops, or rubs No peripheral edema Abdominal: Soft Nontender, no guarding, rebound or rigidity Abdomen moving with respiration Normoactive bowel sounds No hepatomegaly, No splenomegaly No palpable mass No abdominal wall hernia noted Skin: Normal temperature, tone, texture, turgor, stage II pressure ulcer No induration No subcutaneous nodules No rash, lesions No ulcers Extremities: No digital cyanosis No clubbing Pedal pulses intact and symmetrical Radial pulses intact and symmetrical Normal gait and station No calf tenderness Psychiatric: Alert and oriented to person, place and time Appropriate affect Intact judgement Neuro: Patient is quadriplegic Sensation to light touch grossly present throughout Cranial nerves II-XII grossly intact No focal sensory deficits Results CBC & Chem 7: 08/10/17 08:52 08/10/17 08:52 Labs: Abnormal Lab Results - Last 24 Hours (Table) 08/09/17 08/09/17 08/09/17 Range/Units 15:16 15:16 15:16 RBC 4.20 L (4.30-5.90) m/uL Hgb 11.2 L (13.0-17.5) gm/dL Hct 31.4 L (39.0-53.0) % MCV 74.8 L (80.0-100.0) fL Lymphocytes # (1.0-4.8) k/uL APTT 32.6 H (22.0-30.0) sec Sodium 126 L (137-145) mmol/L Potassium (3.5-5.1) mmol/L Chloride 87 L (98-107) mmol/L Carbon Dioxide 15 L (22-30) mmol/L BUN 78 H (9-20) mg/dL Creatinine 2.80 H (0.66-1.25) mg/dL Glucose 108 H (74-99) mg/dL Calcium (8.4-10.2) mg/dL Urine Protein (Negative) Urine Blood (Negative) Ur Leukocyte Esterase (Negative) Urine RBC (0-5) /hpf Urine WBC (0-5) /hpf Urine WBC Clumps (None) /hpf Ur Squamous Epith Cells (0-4) /hpf Urine Bacteria (None) /hpf Urine Yeast (Budding) (None) /hpf Levetiracetam (3.0-60.0) ug/mL 08/09/17 08/09/17 08/10/17 Range/Units 15:16 15:45 08:52 RBC 3.83 L (4.30-5.90) m/uL Hgb 10.2 L (13.0-17.5) gm/dL Hct 29.8 L (39.0-53.0) % MCV 77.7 L (80.0-100.0) fL Lymphocytes # 0.8 L (1.0-4.8) k/uL APTT (22.0-30.0) sec Sodium (137-145) mmol/L Potassium (3.5-5.1) mmol/L Chloride (98-107) mmol/L Carbon Dioxide (22-30) mmol/L BUN (9-20) mg/dL Creatinine (0.66-1.25) mg/dL Glucose (74-99) mg/dL Calcium (8.4-10.2) mg/dL Urine Protein 2+ H (Negative) Urine Blood Moderate H (Negative) Ur Leukocyte Esterase Large H (Negative) Urine RBC 99 H (0-5) /hpf Urine WBC >182 H (0-5) /hpf Urine WBC Clumps Many H (None) /hpf Ur Squamous Epith Cells 10 H (0-4) /hpf Urine Bacteria Many H (None) /hpf Urine Yeast (Budding) Many H (None) /hpf Levetiracetam 97.4 H (3.0-60.0) ug/mL 08/10/17 Range/Units 08:52 RBC (4.30-5.90) m/uL Hgb (13.0-17.5) gm/dL Hct (39.0-53.0) % MCV (80.0-100.0) fL Lymphocytes # (1.0-4.8) k/uL APTT (22.0-30.0) sec Sodium 133 L (137-145) mmol/L Potassium 3.4 L (3.5-5.1) mmol/L Chloride (98-107) mmol/L Carbon Dioxide 15 L (22-30) mmol/L BUN 61 H (9-20) mg/dL Creatinine 1.72 H (0.66-1.25) mg/dL Glucose (74-99) mg/dL Calcium 8.3 L (8.4-10.2) mg/dL Urine Protein (Negative) Urine Blood (Negative) Ur Leukocyte Esterase (Negative) Urine RBC (0-5) /hpf Urine WBC (0-5) /hpf Urine WBC Clumps (None) /hpf Ur Squamous Epith Cells (0-4) /hpf Urine Bacteria (None) /hpf Urine Yeast (Budding) (None) /hpf Levetiracetam (3.0-60.0) ug/mL Microbiology - Last 24 Hours (Table) 08/09/17 15:45 Urine Culture - Preliminary Urine,Catheterized Thrombosis Risk Factor Assmnt - Choose All That Apply Any of the Below Risk Factors Present?: Yes Each Factor Represents 1 point: Age 41-60 years, Medical pt on bed rest, Obesity (BMI >25) Other Risk Factors: Yes Each Risk Factor Represents 2 Points: Patient confined to bed Other congenital or acquired thrombophilia - If yes, enter type in comment: No Thrombosis Risk Factor Assessment Total Risk Factor Score: 5 Thrombosis Risk Factor Assessment Level: High Risk Assessment and Plan Assessment: Breakthrough seizure UTI Quadriplegic Hyponatremia RENATA Wound Care Plan: Admitting the patient for breakthrough seizures,: Neurology consultation is appreciated, Keppra level was high so it was held, follow-up the level as per neurology recommendation ID consult is appreciated for UTI and wound care, continue with cefepime, and continue with wound care Continue with IV hydration, RENATA and hyponatremia are improving, his sodium went up from 126 yesterday to 133 today, creatinine is down from 2.8-1.7
[2017-08-10] MEDS: POTASSIUM CHLORIDE ER 20 MEQ TAB.ER PO SCH (15:13)
[2017-08-10] MEDS ORDERED: levETIRAcetam 500 MG TAB PO STA (20:18)
--- NOTE | 2017-08-10 20:18 | P.CNNES ---
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 He has a history of frequent UTIs and he has a history of seizures. His first seizure occurred in March 2017. At that time he was in the hospital being treated for urosepsis. He had a second seizure in May 2016. His seizures consist of staring off blankly for a few minutes. The patient had an episode yesterday at home where he stared blankly and his eyes rolled up. His mother called EMS. By the time EMS came the patient was fully awake and aware. He was brought to the hospital and admitted to the hospital with breakthrough seizure, UTI and hyponatremia. He takes Keppra thousand milligrams twice a day at home. His Keppra level was elevated at 97.4. Review of Systems Constitutional: Denies chills, Denies fever Eyes: denies blurred vision, denies pain Cardiovascular: Denies chest pain, Denies shortness of breath Respiratory: Denies cough Musculoskeletal: Denies myalgias Neurological: Denies numbness, Denies weakness Past Medical History Past Medical History: GERD/Reflux, Seizure Disorder, Skin Disorder Additional Past Medical History / Comment(s): 08-09-17 family stated that tues thru sun pt has had nausea and decreased appetite. othe pmh: Quadriplegic due to hockey-related injury toC5 through C6 in 1984. History of kidney stones. Freq. UTI's; Sepsis -,past decubs and current decub lt buttock. History of Any Multi-Drug Resistant Organisms: MRSA, Other MDRO Date of last positivie culture/infection: 10/05/11 MRSA MDRO Source:: Left buttock-MRSA Additional Past Surgical History / Comment(s): multiple surgeries/skin grafts for pressure sores, right ureteroscopy with lithotripsy in 2005, external sphincetrotomy 1990 and 1994. Cystoscopy with irrigation of blood clots from bladder on 03/31/2017.Hx of Trach. & Peg tube/ since removed 04/27 Past Anesthesia/Blood Transfusion Reactions: No Reported Reaction Smoking Status: Never smoker - Past Family History Mother Family Medical History: No Reported History Father Family Medical History: No Reported History Medications and Allergies Home Medications Medication Instructions Recorded Confirmed Type levETIRAcetam [Keppra] 1,000 mg PO Q12HR 08/07/17 08/09/17 History Lansoprazole [Prevacid] 15 mg PO DAILY PRN 08/09/17 08/09/17 History Allergies Allergy/AdvReac Type Severity Reaction Status Date / Time Sulfa (Sulfonamide Allergy Rash/Hives Verified 08/09/17 19:51 Antibiotics) Physical Examination - Vital Signs Vital Signs: Vital Signs Temp Pulse Resp BP Pulse Ox 08/10/17 15:00 96.9 F L 73 20 92/37 99 08/10/17 07:15 98 08/10/17 05:30 97.6 F 72 16 96/63 96 08/09/17 22:38 97.6 F 85 16 74/46 97 Intake and Output 08/10/17 08/10/17 08/10/17 06:59 14:59 22:59 Intake Total 600 Output Total 200 1000 Balance 400 -1000 Intake: Oral 600 Output: Urine 200 1000 Other: # Bowel Movements 0 Weight 99.79 kg - Constitutional General appearance: obese - EENT EENT: PERRL, hearing intact, vision intact - Neurologic Neurologic examination: Mental status: She was awake alert and oriented 3 his speech was fluent there was no a aphasia or dysarthria. Next Cranial nerve examination: Cranial nerves II through XII are grossly intact next Motor examination quadriplegia. The patient did have some movement in his biceps and deltoid and wrist extensors. He had no movements in his lower extremities next Sensory examination intact to light touch in the upper body in the legs he had reduced light touch in both legs Results - Laboratory Findings CBC and BMP: 08/10/17 08:52 08/10/17 08:52 Abnormal Lab Findings: Abnormal Labs 08/09/17 08/09/17 08/09/17 15:16 15:16 15:16 RBC 4.20 L Hgb 11.2 L Hct 31.4 L MCV 74.8 L Lymphocytes # APTT 32.6 H Sodium 126 L Potassium Chloride 87 L Carbon Dioxide 15 L BUN 78 H Creatinine 2.80 H Glucose 108 H Calcium Urine Protein Urine Blood Ur Leukocyte Esterase Urine RBC Urine WBC Urine WBC Clumps Ur Squamous Epith Cells Urine Bacteria Urine Yeast (Budding) Levetiracetam 08/09/17 08/09/17 08/10/17 15:16 15:45 08:52 RBC 3.83 L Hgb 10.2 L Hct 29.8 L MCV 77.7 L Lymphocytes # 0.8 L APTT Sodium Potassium Chloride Carbon Dioxide BUN Creatinine Glucose Calcium Urine Protein 2+ H Urine Blood Moderate H Ur Leukocyte Esterase Large H Urine RBC 99 H Urine WBC >182 H Urine WBC Clumps Many H Ur Squamous Epith Cells 10 H Urine Bacteria Many H Urine Yeast (Budding) Many H Levetiracetam 97.4 H 08/10/17 08:52 RBC Hgb Hct MCV Lymphocytes # APTT Sodium 133 L Potassium 3.4 L Chloride Carbon Dioxide 15 L BUN 61 H Creatinine 1.72 H Glucose Calcium 8.3 L Urine Protein Urine Blood Ur Leukocyte Esterase Urine RBC Urine WBC Urine WBC Clumps Ur Squamous Epith Cells Urine Bacteria Urine Yeast (Budding) Levetiracetam Assessment and Plan (1) Breakthrough seizure Current Visit: Yes Status: Acute SNOMED Code(s): 070178383 (2) UTI (urinary tract infection) Current Visit: Yes Status: Acute SNOMED Code(s): 67571157 (3) Quadriplegia following spinal cord injury Current Visit: Yes Status: Chronic SNOMED Code(s): 77959849 Plan: The patient is a 51-year-old man with seizure disorder who presents with breakthrough seizure. His Keppra level was elevated. He did have underlying sepsis which would've reduced his seizure threshold and could of brought on his seizure. Keppra dose has been reduced for tonight and we'll check a repeat level in a.m. continue seizure precautions.
[2017-08-10] MEDS: LORazepam 1 MG TAB PO PRN (20:57)
[2017-08-10] MEDS ORDERED: LEVOFLOXACIN 250MG-D5W PMX 250 MG in DEXTROSE/WATER 1 50ML.BAG IVPB SCH (21:00)
[2017-08-10] MEDS ORDERED: LEVOFLOXACIN 250 MG TAB PO SCH (21:00)
[2017-08-11] MEDS: SODIUM CHLORIDE 0.9% 1,000 ML IV SCH ×2 (05:28→18:13)
--- NOTE | 2017-08-11 07:32 | P.GSCN ---
History of Present Illness Consult date: 08/10/17 Reason for Consult: UTI, renal calculi Requesting physician: Marito Owens History of present illness: The patient is a 51 yo WM with a history of quadriplegia secondary to a C5-C6 injury sustained during a hockey game in 1984. 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 He was treated with external sphincterotomy in 1990 and 1994. 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 Right ureterorenoscopy with lithotripsy was performed in 2005. Renal ultrasound in [address] scan in March 2017 showed atrophic kidneys and bilateral renal calculi. Dr. Oliver intends to perform ureteroscopy at some point, as it is presumed that the calculi are infected. Review of Systems - Constitutional Denies fever - Gastrointestinal Reports nausea - Neurological Reports seizures Past Medical History Past Medical History: GERD/Reflux, Seizure Disorder, Skin Disorder Additional Past Medical History / Comment(s): 08-09-17 family stated that tues thru sun pt has had nausea and decreased appetite. othe pmh: Quadriplegic due to hockey-related injury toC5 through C6 in 1984. History of kidney stones. Freq. UTI's; Sepsis -,past decubs and current decub lt buttock. History of Any Multi-Drug Resistant Organisms: MRSA, Other MDRO Year Discovered:: 10/05/11 MRSA MDRO Source:: Left buttock-MRSA Additional Past Surgical History / Comment(s): multiple surgeries/skin grafts for pressure sores, right ureteroscopy with lithotripsy in 2005, external sphincetrotomy 1990 and 1994. Cystoscopy with irrigation of blood clots from bladder on 03/31/2017.Hx of Trach. & Peg tube/ since removed 04/27 Past Anesthesia/Blood Transfusion Reactions: No Reported Reaction Smoking Status: Never smoker - Past Family History Mother Family Medical History: No Reported History Father Family Medical History: No Reported History Medications and Allergies Home Medications Medication Instructions Recorded Confirmed Type levETIRAcetam [Keppra] 1,000 mg PO Q12HR 08/07/17 08/09/17 History Lansoprazole [Prevacid] 15 mg PO DAILY PRN 08/09/17 08/09/17 History Allergies Allergy/AdvReac Type Severity Reaction Status Date / Time Sulfa (Sulfonamide Allergy Rash/Hives Verified 08/09/17 19:51 Antibiotics) Surgical - Exam Vital Signs Temp Pulse Resp BP Pulse Ox 97.8 F 108 H 18 95/53 97 08/09/17 14:36 08/09/17 14:36 08/09/17 14:36 08/09/17 14:36 08/09/17 14:36 - General well developed, well nourished, no distress - Respiratory normal respiratory effort - Abdomen Abdomen: soft, non tender, no guarding, no rigid, no rebound - Genitourinary normal penis with no external lesions, testicles non-tender Results - Labs 08/10/17 08:52 08/10/17 08:52 Abnormal Lab Results - Last 24 Hours (Table) 08/09/17 08/10/17 08/10/17 Range/Units 15:16 08:52 08:52 RBC 3.83 L (4.30-5.90) m/uL Hgb 10.2 L (13.0-17.5) gm/dL Hct 29.8 L (39.0-53.0) % MCV 77.7 L (80.0-100.0) fL Lymphocytes # 0.8 L (1.0-4.8) k/uL Sodium 133 L (137-145) mmol/L Potassium 3.4 L (3.5-5.1) mmol/L Carbon Dioxide 15 L (22-30) mmol/L BUN 61 H (9-20) mg/dL Creatinine 1.72 H (0.66-1.25) mg/dL Calcium 8.3 L (8.4-10.2) mg/dL Levetiracetam 97.4 H (3.0-60.0) ug/mL Microbiology - Last 24 Hours (Table) 08/09/17 15:45 Urine Culture - Preliminary Urine,Catheterized Diabetes panel 08/10/17 Range/Units 08:52 Sodium 133 L (137-145) mmol/L Potassium 3.4 L (3.5-5.1) mmol/L Chloride 100 (98-107) mmol/L Carbon Dioxide 15 L (22-30) mmol/L BUN 61 H (9-20) mg/dL Creatinine 1.72 H (0.66-1.25) mg/dL Glucose 99 (74-99) mg/dL Calcium 8.3 L (8.4-10.2) mg/dL Calcium panel 08/10/17 Range/Units 08:52 Calcium 8.3 L (8.4-10.2) mg/dL Pituitary panel 08/10/17 Range/Units 08:52 Sodium 133 L (137-145) mmol/L Potassium 3.4 L (3.5-5.1) mmol/L Chloride 100 (98-107) mmol/L Carbon Dioxide 15 L (22-30) mmol/L BUN 61 H (9-20) mg/dL Creatinine 1.72 H (0.66-1.25) mg/dL Glucose 99 (74-99) mg/dL Calcium 8.3 L (8.4-10.2) mg/dL Adrenal panel 08/10/17 Range/Units 08:52 Sodium 133 L (137-145) mmol/L Potassium 3.4 L (3.5-5.1) mmol/L Chloride 100 (98-107) mmol/L Carbon Dioxide 15 L (22-30) mmol/L BUN 61 H (9-20) mg/dL Creatinine 1.72 H (0.66-1.25) mg/dL Glucose 99 (74-99) mg/dL Calcium 8.3 L (8.4-10.2) mg/dL - Imaging CT scan - abdomen: report reviewed, image reviewed Assessment and Plan (1) Renal calculus, bilateral Current Visit: No Status: Acute Code(s): N20.0 - CALCULUS OF KIDNEY SNOMED Code(s): 11019708 (2) UTI (urinary tract infection) Current Visit: Yes Status: Acute Code(s): N39.0 - URINARY TRACT INFECTION, SITE NOT SPECIFIED SNOMED Code(s): 60728908 Plan: Recent urine culture showed E. coli and P. aeruginosa, both resistant to Cipro. He is admitted for IV antibiotics. Dr. Oliver will perform elective ureteroscopy at some point, though stone burden is significant.
[2017-08-11] MEDS: CEFEPIME 2 GM in SODIUM CHLORIDE 0.9% 50 ML IVPB SCH (08:16)
[2017-08-11] MEDS: PIPERACILLIN-TAZOBACTAM 3.375 GM in DEXTROSE/WATER 1 50ML.BAG IVPB SCH (16:03)
[2017-08-11 16:07] LABS: Appearance,Urine Cloudy (Clear); Bacteria,Urine Rare /hpf; Bilirubin,Urine Negative (Negative); Blood,Urine Trace (Negative); Color,Urine Light Yellow; Glucose,Urine (UA) Trace (Negative); Ketones,Urine Negative (Negative); Leukocyte Esterase,Urine Large (Negative); Nitrite,Urine Negative (Negative); Protein,Urine Trace (Negative); Specific Gravity,Urine 1.009 (1.001-1.035); Squamous Epithelial Cell,Urine <1 /hpf (0-4); Urobilinogen,Urine <2.0 mg/dL (<2.0); WBC,Urine 167 /hpf (0-5)
--- NOTE | 2017-08-11 17:08 | PN ---
PROGRESS NOTE DATE OF SERVICE: 08/11/2017. REASON FOR FOLLOW UP: 1. Gluteal pressure ulcer. 2. Urinary tract infection. INTERVAL HISTORY: The patient is afebrile. He seems to be awake, alert. He is breathing comfortably. The patient denies having any further seizure activity. No chest pain. No cough. No abdominal pain. No diarrhea. EXAMINATION: Blood pressure 117/58 with a pulse of 71, temperature 96.6. He is 99% on room air. General description is a middle-aged male lying in bed in no distress respiratory system: Unlabored breathing. Clear to auscultation anteriorly. Heart S1, S2. Regular rate and rhythm. Abdomen soft, no tenderness. LABS: Hemoglobin 10.8, white count 4.8 with a BUN of 16, creatinine 1.72. Urine cultures obtained on August 09 showing a gram-negative bacilli. The patient did have a urine culture done on August 02 did show a drug-resistant Pseudomonas aeruginosa and E coli. DIAGNOSTIC IMPRESSION AND PLAN: 1. Patient with right gluteal sacral pressure ulcer. Local wound care with Aquacel Silver dressing to keep the area off the pressure. 2. Patient with urinary tract infection, however culture with multidrug resistant Pseudomonas aeruginosa and E coli. However, the patient does not have any fever or elevated white count. Occasional mild cystitis versus possible colonizer. Did discuss with the patient need for obtaining a clean-catch sample which can be done through a straight cath and depending upon the results of the specimen, will determine his discharge antibiotics. All their questions and concerns were answered. MMODL / IJN: [id number] /
[2017-08-11] MEDS: LORazepam 1 MG TAB PO PRN (20:58)
[2017-08-12] MEDS: PIPERACILLIN-TAZOBACTAM 3.375 GM in DEXTROSE/WATER 1 50ML.BAG IVPB SCH ×4 (00:11→23:55)
[2017-08-12] MEDS: SODIUM CHLORIDE 0.9% 1,000 ML IV SCH ×3 (05:00→23:56)
--- NOTE | 2017-08-12 13:58 | P.PN ---
Progress Note - Text Progress Note Date: 08/12/17 That has no complaints at this time. He is afebrile with no leukocytosis. A catheterized urine specimen is growing E. coli and P. aeruginosa. Agree with IV antibiotics, pending final urine culture results.
--- NOTE | 2017-08-12 17:00 | P.PN ---
Subjective Progress Note Date: 08/11/17 Principal diagnosis: Breakthrough seizures; UTI; hyponatremia This is a pleasant 51 years old male with past medical history of GERD, seizure on Keppra 1000 twice a day, quadriplegic due to sports related to the trauma hip presents to the emergency room this time because of seizure. In the ED patient was started on Rocephin for UTI 08/11/2017 Patient is seen and evaluated in the room at bedside; patient's mother who is also his caregiver is also present in the room; patient relates that he was told by Dr. Baptiste that he'll possibly be getting a PICC line for IV antibiotic treatment post discharge for multidrug resistant Pseudomonas and E. coli; we did discuss ID recommendation of repeating UA with a clean catch specimen and recommending discharge antibiotics depending on specimen results; patient and family understands Objective - Vital Signs Vital signs: Vital Signs Temp 96.8 F L 08/11/17 14:28 Pulse 74 08/11/17 14:28 Resp 16 08/11/17 16:00 BP 96/53 08/11/17 14:28 Pulse Ox 99 08/11/17 14:28 Intake & Output 08/10/17 08/11/17 08/11/17 18:59 06:59 18:59 Intake Total 1600 850 Output Total 1000 800 700 Balance -1000 800 150 Weight 99.79 kg Intake: IV 1600 Sodium Chloride 0.9% 1, 1600 000 ml @ 100 mls/hr IV . Q10H MANDA Rx#:[id number] Oral 850 Output: Urine 1000 800 700 Other: # Bowel Movements 0 - Exam - Constitutional General appearance: Present: average body habitus, cooperative, no acute distress - EENT Eyes: Present: anicteric sclerae, EOMI, PERRLA, normal appearance ENT: Present: hearing grossly normal, normal oropharynx Ears: bilateral: normal - Neck Neck: Present: normal ROM. Absent: lymphadenopathy, rigidity, thyromegaly Carotids: negative: bruit present Thyroid: bilateral: normal size, negative: enlarged, nodule - Respiratory Respiratory: bilateral: CTA, negative: rales, rhonchi, wheezing - Cardiovascular Rhythm: regular Heart sounds: normal: S1, S2 Abnormal Heart Sounds: Absent: systolic murmur, diastolic murmur - Gastrointestinal General gastrointestinal: Present: normal bowel sounds, soft. Absent: distended , organomegaly, tenderness - Genitourinary Genitourinary Comment(s): deferred - Integumentary Integumentary: Present: normal turgor. Absent: jaundiced, rash, ulcer - Neurologic Neurologic: Present: CNII-XII intact. Absent: focal deficits - Musculoskeletal Musculoskeletal: Present: gait normal, strength equal bilaterally - Psychiatric Psychiatric: Present: A&O x's 3, appropriate affect, intact judgment & insight - Labs CBC & Chem 7: 08/10/17 08:52 08/10/17 08:52 Labs: Abnormal Lab Results - Last 24 Hours (Table) 08/11/17 Range/Units 15:54 Urine Protein Trace H (Negative) Urine Glucose (UA) Trace H (Negative) Urine Blood Trace H (Negative) Ur Leukocyte Esterase Large H (Negative) Urine WBC 167 H (0-5) /hpf Urine WBC Clumps Many H (None) /hpf Urine Bacteria Rare H (None) /hpf Microbiology - Last 24 Hours (Table) 08/09/17 15:16 Blood Culture - Preliminary Blood No Growth after 48 hours 08/09/17 15:45 Urine Culture - Preliminary Urine,Catheterized Gram Neg Bacilli Assessment and Plan Assessment: 1. Breakthrough seizures - Patient takes Keppra thousand milligrams twice a day at home - Keppra level was found to be elevated at 97.4 - Keppra dose has been reduced by neurology - Recheck Her levels and continue with seizure precautions 2. Complicated UTI; multidrug resistant Pseudomonas/E. coli/ renal calculi - Patient remains on IV antibiotics; Levaquin is discontinued and patient remains on cefepime 2 g IV - ID recommending at repeat UA with a clean catch specimen; post discharge antibiotic treatment depending on repeat UA results - Plan is to perform elective ureteroscopy for renal calculi once clinically stable 3. Right gluteal sacral decubitus ulcer - Continue with local wound care with Aquasol silver dressing to be changed every 24-48 hours prior ID recommendations - Position per protocol to keep pressure off of decubitus ulcer area 4. Hyponatremia - Continue with IV fluids and monitor electrolytes closely - Sodium level has improved to 133 from 126 upon admission - We will repeat electrolytes and supplement if needed 5. Acute renal injury; improving - Continue with IV fluids; monitor strict JOSE's and renal function - Avoid hypotension and nephrotoxins 6. 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 DVT prophylaxis CODE STATUS; full code Disposition; await final recommendations on discharge antibiotics from ID; we' ll discharge home after repeat urine culture is available for final decision on antibiotic treatment and patient is clinically stable Time with Patient: Greater than 30
--- NOTE | 2017-08-12 17:02 | P.PN ---
Subjective Progress Note Date: 08/12/17 Principal diagnosis: Breakthrough seizures; UTI; hyponatremia This is a pleasant 51 years old male with past medical history of GERD, seizure on Keppra 1000 twice a day, quadriplegic due to sports related to the trauma hip presents to the emergency room this time because of seizure. In the ED patient was started on Rocephin for UTI 08/11/2017 Patient is seen and evaluated in the room at bedside; patient's mother who is also his caregiver is also present in the room; patient relates that he was told by Dr. Baptiste that he'll possibly be getting a PICC line for IV antibiotic treatment post discharge for multidrug resistant Pseudomonas and E. coli; we did discuss ID recommendation of repeating UA with a clean catch specimen and recommending discharge antibiotics depending on specimen results; patient and family understands 08/12/2017 Patient is awake alert and oriented; denies any fever or chills; remains afebrile; catheterized urine specimen is obtained and is pending; await final culture results and IDs recommendations for discharge antibiotic; patient is agreeable Objective - Vital Signs Vital signs: Vital Signs Temp 98.1 F 08/12/17 15:03 Pulse 77 08/12/17 15:03 Resp 18 08/12/17 15:03 BP 100/59 08/12/17 15:03 Pulse Ox 97 08/12/17 15:03 Intake & Output 08/11/17 08/12/17 08/12/17 18:59 06:59 18:59 Intake Total 1450 400 800 Output Total 9764 660 8671 Balance -50 200 -400 Intake: IV 800 Sodium Chloride 0.9% 1, 800 000 ml @ 100 mls/hr IV . Q10H MANDA Rx#:[id number] Oral 1450 400 Output: Urine 3297 826 2606 Other: # Voids 0 # Bowel Movements 0 0 1 - Exam - Constitutional General appearance: Present: average body habitus, cooperative, no acute distress - EENT Eyes: Present: anicteric sclerae, EOMI, PERRLA, normal appearance ENT: Present: hearing grossly normal, normal oropharynx Ears: bilateral: normal - Neck Neck: Present: normal ROM. Absent: lymphadenopathy, rigidity, thyromegaly Carotids: negative: bruit present Thyroid: bilateral: normal size, negative: enlarged, nodule - Respiratory Respiratory: bilateral: CTA, negative: rales, rhonchi, wheezing - Cardiovascular Rhythm: regular Heart sounds: normal: S1, S2 Abnormal Heart Sounds: Absent: systolic murmur, diastolic murmur - Gastrointestinal General gastrointestinal: Present: normal bowel sounds, soft. Absent: distended , organomegaly, tenderness - Genitourinary Genitourinary Comment(s): deferred - Integumentary Integumentary: Present: normal turgor. Absent: jaundiced, rash, ulcer - Neurologic Neurologic: Present: CNII-XII intact. Absent: focal deficits - Musculoskeletal Musculoskeletal: Present: gait normal, strength equal bilaterally - Psychiatric Psychiatric: Present: A&O x's 3, appropriate affect, intact judgment & insight - Labs CBC & Chem 7: 08/10/17 08:52 08/10/17 08:52 Labs: Microbiology - Last 24 Hours (Table) 08/11/17 15:54 Urine Culture - Preliminary Urine,Catheterized 08/09/17 15:45 Urine Culture - Final Urine,Catheterized Escherichia coli Pseudomonas aeruginosa 08/09/17 15:16 Blood Culture - Preliminary Blood No Growth after 48 hours Assessment and Plan Assessment: 1. Breakthrough seizures - Patient takes Keppra thousand milligrams twice a day at home - Keppra level was found to be elevated at 97.4 - Keppra dose has been reduced by neurology - Recheck Her levels and continue with seizure precautions 2. Complicated UTI; multidrug resistant Pseudomonas/E. coli/ renal calculi - Patient remains on IV antibiotics; Levaquin is discontinued and patient remains on cefepime 2 g IV - ID recommending at repeat UA with a clean catch specimen; post discharge antibiotic treatment depending on repeat UA results - Plan is to perform elective ureteroscopy for renal calculi once clinically stable 3. Right gluteal sacral decubitus ulcer - Continue with local wound care with Aquasol silver dressing to be changed every 24-48 hours prior ID recommendations - Position per protocol to keep pressure off of decubitus ulcer area 4. Hyponatremia - Continue with IV fluids and monitor electrolytes closely - Sodium level has improved to 133 from 126 upon admission - We will repeat electrolytes and supplement if needed 5. Acute renal injury; improving - Continue with IV fluids; monitor strict JOSE's and renal function - Avoid hypotension and nephrotoxins 6. 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 DVT prophylaxis CODE STATUS; full code Disposition; await final recommendations on discharge antibiotics from ID; we' ll discharge home after repeat urine culture is available for final decision on antibiotic treatment and patient is clinically stable Time with Patient: Greater than 30
[2017-08-12] MEDS: LORazepam 1 MG TAB PO PRN (22:17)
[2017-08-13] MEDS: PIPERACILLIN-TAZOBACTAM 3.375 GM in DEXTROSE/WATER 1 50ML.BAG IVPB SCH ×3 (07:39→23:13)
[2017-08-13 08:34] LABS: Basophils % (A) 0 %; Eosinophils # (A) 0.2 k/uL (0-0.7); Eosinophils % (A) 3 %; HCT 31.5 % (39.0-53.0); HGB 10.8 gm/dL (13.0-17.5); Lymphocytes # (A) 0.9 k/uL (1.0-4.8); Lymphocytes % (A) 12 %; MCH 26.7 pg (25.0-35.0); MCHC 34.2 g/dL (31.0-37.0); Mean Platelet Volume 7.2; Monocytes # (A) 0.3 k/uL (0-1.0); Monocytes % (A) 3 %; Neutrophils % (A) 80 %; Platelet Count 211 k/uL (150-450); RBC 4.04 m/uL (4.30-5.90); RDW 14.8 % (11.5-15.5); WBC 7.5 k/uL (3.8-10.6)
[2017-08-13 08:45] LABS: Anion Gap 16 mmol/L; Blood Urea Nitrogen 22 mg/dL (9-20); Carbon Dioxide 17 mmol/L (22-30); Chloride 108 mmol/L (98-107); Glucose 90 mg/dL (74-99); Potassium 3.5 mmol/L (3.5-5.1); Sodium 141 mmol/L (137-145)
[2017-08-13] MEDS: SODIUM CHLORIDE 0.9% 1,000 ML IV SCH ×2 (10:38→20:31)
[2017-08-13] MEDS ORDERED: hydrALAZINE HCL 20 MG/ML 1 ML VIAL IVP PRN (19:02)
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
[2017-08-13] MEDS: LORazepam 1 MG TAB PO PRN (20:34)
[2017-08-13 23:09] VITALS: PULSE 92; RESP 16
--- NOTE | 2017-08-13 23:28 | PN ---
PROGRESS NOTE DATE OF SERVICE: 08/13/2017 REASON FOR FOLLOWUP VISIT: Urinary tract infection. INTERVAL HISTORY: The patient is afebrile and has been breathing comfortably. Denies having any chest pain, shortness of breath, cough abdominal pain, or any diarrhea. EXAMINATION: Blood pressure 144/90 with a pulse of 78, temperature 98.5. He is 95% on room air. General description is a middle-aged male lying in bed in no distress. RESPIRATORY SYSTEM: Unlabored breathing, clear to auscultation anteriorly. HEART: S1, S2. Regular rate and rhythm. ABDOMEN: Soft, no tenderness. LABS: BUN of 22, creatinine 1.06, hemoglobin 10.8, white count 7.5. His repeat urine culture so far negative. DIAGNOSTIC IMPRESSION AND PLAN: Patient with Pseudomonas aeruginosa and E. coli urinary tract infection. Currently on Zosyn. The repeat urine was obtained with straight catheterization has been negative, possibly representing mild cystitis initial episode adequately treated and Zosyn may be discontinued at the time of discharge. The patient remained to be afebrile. Continue supportive care. MMODL / IJN: [id number] /
[2017-08-14] MEDS: SODIUM CHLORIDE 0.9% 1,000 ML IV SCH (05:30)
[2017-08-14 06:29] VITALS: BP 116/61; TEMP 97.5
[2017-08-14] MEDS: PIPERACILLIN-TAZOBACTAM 3.375 GM in DEXTROSE/WATER 1 50ML.BAG IVPB SCH (07:16)
--- NOTE | 2017-08-14 08:16 | P.DS ---
Providers Date of admission: 08/09/17 16:52 Attending physician: Marito Owens Consults: 08/09/17 20:29 Consult Physician Routine Consulting Provider: Kenton Oliver Consult Reason/Comments: Known to patient Do you want consulting provider notified?: Yes, Notify in am 08/09/17 20:32 Consult Physician Routine Consulting Provider: Trenton Oreilly Consult Reason/Comments: UTI, decub ulcer Do you want consulting provider notified?: Yes, Notify in am Consult Physician Routine Consulting Provider: Barbara Owens Consult Reason/Comments: Seizures, quadraplegia Do you want consulting provider notified?: Yes, Notify in am Primary care physician: Marito Owens - Discharge Diagnosis(es) (1) Breakthrough seizure Current Visit: Yes Status: Acute (2) Quadriplegia and quadriparesis Current Visit: Yes Status: Acute (3) UTI (urinary tract infection) Current Visit: Yes Status: Acute Hospital Course: This is a discharge summary 51-year-old white male who is fairly well-known to my practice who has had recurrent chronic UTI which is multidrug resistant. The patient has been placed on appropriate antibiotic treatment and cultures are pending. The patient states that infectious disease has cleared him. We will clear for discharge once consultants have also. The patient is not tolerating diet without any breakthrough seizure element. We will reconcile home medications and have the patient follow me as needed. Patient Condition at Discharge: Stable Plan - Discharge Summary Discharge Rx Participant: No New Discharge Prescriptions: Continue levETIRAcetam [Keppra] 1,000 mg PO Q12HR Lansoprazole [Prevacid] 15 mg PO DAILY PRN PRN Reason: Heartburn Discharge Medication List levETIRAcetam [Keppra] 1,000 mg PO Q12HR 08/07/17 [History] Lansoprazole [Prevacid] 15 mg PO DAILY PRN 08/09/17 [History] Follow up Appointment(s)/Referral(s): Marito Owens MD [Primary Care Provider] - 1 Week [facility] Visiting Nurse, [NON-STAFF] - Patient Instructions/Handouts: Recurrent Seizures in Adults (GEN) Activity/Diet/Wound Care/Special Instructions: Change positions every 2 hours while awake, stay of pressure ulcers. HOB elevated while eating. Condom cath, cleanse genital area daily. Regular diet. Discharge Disposition: HOME WITH HOME HEALTH SERVICES
[2017-08-14] MEDS ORDERED: HYDROCORTISONE 1% CREAM 30 GM TUBE TOPICAL PRN (09:19)
[2017-08-14] MEDS ORDERED: levETIRAcetam 500 MG TAB PO STA (09:58)
--- NOTE | 2017-08-14 12:29 | PN ---
PROGRESS NOTE DATE OF SERVICE: 08/14/2017 REASON FOR FOLLOWUP: 1. Urinary tract infection pseudomonas aeruginosa, multidrug resistant. 2. Right gluteal pressure ulcer stage II. INTERVAL HISTORY: The patient is currently afebrile, has been breathing comfortably. Denies having any chest pain or shortness of breath, no cough, no abdominal pain, and no diarrhea. PHYSICAL EXAMINATION: Blood pressure 116/61 with a pulse of 92, temperature 97.5. He is 92% on room air. General description is a middle-aged male, lying in bed in no distress. RESPIRATORY SYSTEM: Unlabored breathing, clear to auscultation anteriorly. HEART: S1, S2. Regular rate and rhythm. ABDOMEN: Soft, no tenderness. LABS: Hemoglobin is 10.2, white count of 7.5. BUN of 22, creatinine 1.06. Repeat urine culture 08/11 remains to be negative as of today, 08/14. DIAGNOSTIC IMPRESSION/PLAN: 1. Patient with positive culture Escherichia coli and Pseudomonas aeruginosa. Possible mild cystitis or contamination. Has received 3 days of IV Zosyn, that should be more than enough as the followup blood culture that was done through a straight catheter remains to be negative. No need for antibiotic on discharge. Patient and his mother was educated about the UTIs and due to the recent use of the antibiotics in view of multidrug resistant. Urine should be checked only if the patient has any symptoms and if needed should be collected aseptic technique. All their questions were answered. 2. Patient with right gluteal pressure ulcer. Local wound care with Aquacel Silver dressing. Keep the area off the pressure. MMODL / IJN: [id number] /
== END 2017-08-14 11:09 | disposition home health service (06) | DRG 100 ==
LOC: EC 14:28 → 4MS4W 16:52
PROVIDERS: ADMIT Family Medicine; ATTEND Family Medicine
DX: G40.909 Epilepsy, unspecified, not intractable, without status epilepticus (principal); L89.323 Pressure ulcer of left buttock, stage 3; G82.50 Quadriplegia, unspecified; E87.1 Hypo-osmolality and hyponatremia; N17.9 Acute kidney failure, unspecified; N39.0 Urinary tract infection, site not specified; B96.20 Unspecified Escherichia coli [E. coli] as the cause of diseases classified elsewhere; B96.5 Pseudomonas (aeruginosa) (mallei) (pseudomallei) as the cause of diseases classified elsewhere; Y93.79 Activity, other specified sports and athletics; S14.105S Unspecified injury at C5 level of cervical spinal cord, sequela; K21.9 Gastro-esophageal reflux disease without esophagitis; N20.0 Calculus of kidney; N31.9 Neuromuscular dysfunction of bladder, unspecified; Z16.24 Resistance to multiple antibiotics; Z86.14 Personal history of Methicillin resistant Staphylococcus aureus infection; Z87.440 Personal history of urinary (tract) infections; Z87.442 Personal history of urinary calculi; Z88.2 Allergy status to sulfonamides
CPT/HCPCS: 36415; 71045; 80048; 80053; 80177; 81001; 83605; 84484; 85025; 85610; 85730; 87040; 87077; 87086; 87186; 87502; 93005; 94760; 96361; 96374; 99285

== ENCOUNTER 2018-04-04 17:32 | Inpatient (IN) | payer MEDICARE, BC ==
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
[2018-04-04] MEDS ORDERED: PIPERACILLIN-TAZOBACTAM 3.375 GM in SODIUM CHLORIDE 0.9% 100 ML IVPB STA (18:18)
[2018-04-04 18:41] LABS: Basophils % (A) 0 %; Eosinophils # (A) 0.3 k/uL (0-0.7); Eosinophils % (A) 6 %; HCT 34.2 % (39.0-53.0); HGB 11.6 gm/dL (13.0-17.5); Lymphocytes # (A) 0.4 k/uL (1.0-4.8); Lymphocytes % (A) 6 %; MCH 28.3 pg (25.0-35.0); MCV 83.1 fL (80.0-100.0); Mean Platelet Volume 7.1; Monocytes # (A) 0.3 k/uL (0-1.0); Monocytes % (A) 6 %; Neutrophils # (A) 4.4 k/uL (1.3-7.7); Neutrophils % (A) 81 %; Platelet Count 176 k/uL (150-450); RBC 4.12 m/uL (4.30-5.90); WBC 5.5 k/uL (3.8-10.6)
[2018-04-04 19:02] LABS: Albumin 3.8 g/dL (3.5-5.0); Calcium 9.2 mg/dL (8.4-10.2); Potassium 3.5 mmol/L (3.5-5.1); Total Protein 7.4 g/dL (6.3-8.2)
[2018-04-04] MEDS ORDERED: SODIUM CHLORIDE 0.9% 1,000 ML IV ONE (20:29)
[2018-04-04] MEDS ORDERED: NALOXONE 0.4 MG/ML 1 ML VIAL IV PRN (21:03)
[2018-04-04 21:19] LABS: Appearance,Urine Turbid (Clear); Bacteria,Urine Many /hpf; Bilirubin,Urine Negative (Negative); Blood,Urine Small (Negative); Color,Urine Yellow; Glucose,Urine (UA) Negative (Negative); Ketones,Urine Trace (Negative); Leukocyte Esterase,Urine Large (Negative); Mucus,Urine Rare /hpf; Nitrite,Urine Positive (Negative); PH, Urine 6.5 (5.0-8.0); Protein,Urine 1+ (Negative); Specific Gravity,Urine 1.009 (1.001-1.035); Squamous Epithelial Cell,Urine 4 /hpf (0-4); Urobilinogen,Urine <2.0 mg/dL (<2.0); WBC,Urine >182 /hpf (0-5)
[2018-04-04] MEDS ORDERED: ACETAMINOPHEN TAB 325 MG TAB PO PRN (23:28)
[2018-04-04 23:54] VITALS: BMI 25.4
[2018-04-05] MEDS: SODIUM CHLORIDE 0.9% 1,000 ML IV SCH ×2 (00:15→21:20)
[2018-04-05] MEDS: PIPERACILLIN-TAZOBACTAM 3.375 GM in SODIUM CHLORIDE 0.9% 100 ML IVPB SCH ×4 (03:28→18:18)
--- NOTE | 2018-04-05 08:12 | P.HPIM ---
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 History of kidney stones and frequent UTI. Patient is quadriplegic /paraplegic however he lives at home and his brother, mother and caregiver taking care of him. Patient states that about 6 days ago his visiting physician put him on oral antibiotics for possible UTI, however on reevaluating him yesterday by his visiting nurse and physician, patient has still complaining of from soreness in his muscles and joints especially the arm or shoulders dark urine and dysuria and limits more sleepy Valerio him to the hospital. On admission his Vitas looks stable and his been afebrile. CBC showed mild anemia, BMP showing mild hyponatremia and acute kidney injury with creatinine 1.4, compared to baseline at 1.0 and elevated liver enzymes urinalysis is suspicious for infection. Urine culture has been sent. Review of Systems CONSTITUTIONAL: No fever, no malaise, no fatigue. HEENT: No recent visual problems or hearing problems. Denied any sore throat. CARDIOVASCULAR: No orthopnea, PND, no palpitations, no syncope. PULMONARY: No shortness of breath, no cough, no hemoptysis. GASTROINTESTINAL: No diarrhea, no nausea, no vomiting, no abdominal pain. Normoactive bowel sounds. NEUROLOGICAL: No headaches, no weakness, no numbness. HEMATOLOGICAL: Denies any bleeding or petechiae. GENITOURINARY: Denies any burning micturition, frequency, or urgency. MUSCULOSKELETAL/RHEUMATOLOGICAL: Denies any joint pain, swelling, or any muscle pain. ENDOCRINE: Denies any polyuria or polydipsia. 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 History of kidney stones. Freq. UTI's; Sepsis -,past decubs and current decub lt buttock. History of Any Multi-Drug Resistant Organisms: MRSA, Other MDRO Date of last positivie culture/infection: 09/24/17 MDRO Source:: FOOT MRSA Additional Past Surgical History / Comment(s): multiple surgeries/skin grafts for pressure sores, right ureteroscopy with lithotripsy in 2005, external sphincetrotomy 1990 and 1994. Cystoscopy with irrigation of blood clots from bladder on 03/31/2017.Hx of Trach. & Peg tube/ since removed 04/27 Past Anesthesia/Blood Transfusion Reactions: No Reported Reaction Past Psychological History: No Psychological Hx Reported Smoking Status: Never smoker Past Alcohol Use History: None Reported Past Drug Use History: None Reported - Past Family History Mother Family Medical History: No Reported History Father Family Medical History: No Reported History Medications and Allergies Home Medications Medication Instructions Recorded Confirmed Type Cyanocobalamin (Vitamin B-12) 1,000 mcg PO DAILY 04/04/18 04/04/18 History [Vitamin B-12] Nitrofurantoin Monohyd/M-Cryst 100 mg PO BID 04/04/18 04/04/18 History [Macrobid] levETIRAcetam [Keppra Xr] 750 mg PO DAILY 04/04/18 04/04/18 History Allergies Allergy/AdvReac Type Severity Reaction Status Date / Time Sulfa (Sulfonamide Allergy Rash/Hives Verified 04/04/18 19:09 Antibiotics) Physical Exam Vitals: Vital Signs Temp Pulse Pulse Resp BP BP Pulse Ox 04/05/18 04:57 97.6 F 88 18 104/68 98 04/05/18 00:00 18 04/04/18 23:25 97.3 F L 89 18 118/74 97 04/04/18 23:07 98.2 F 04/04/18 22:43 90 16 112/77 98 04/04/18 21:04 83 16 109/70 98 04/04/18 19:19 93 18 105/77 97 04/04/18 18:54 98.0 F 91 18 86/67 95 04/04/18 17:43 98.7 F 99 18 103/63 99 Intake and Output 04/04/18 04/05/18 04/05/18 22:59 06:59 14:59 Output Total 800 Balance -800 Output: Urine 800 Other: Voiding Method Diaper Weight 90 kg GENERAL: The patient is alert and oriented x3, not in any acute distress. Well developed, well nourished. HEENT: Pupils are round and equally reacting to light. EOMI. No scleral icterus. No conjunctival pallor. Normocephalic, atraumatic. No pharyngeal erythema. No thyromegaly. CARDIOVASCULAR: S1 and S2 present. No murmurs, rubs, or gallops. PULMONARY: Chest is clear to auscultation, no wheezing or crackles. ABDOMEN: Soft, nontender, nondistended, normoactive bowel sounds. No palpable organomegaly. MUSCULOSKELETAL: No joint swelling or deformity. EXTREMITIES: No cyanosis, clubbing, or pedal edema. NEUROLOGICAL: Gross neurological examination did not reveal any focal deficits. SKIN: No rashes. Results CBC & Chem 7: 04/04/18 18:25 04/04/18 18:25 Labs: Abnormal Lab Results - Last 24 Hours (Table) 04/04/18 04/04/18 04/04/18 Range/Units 18:25 18:25 20:42 RBC 4.12 L (4.30-5.90) m/uL Hgb 11.6 L (13.0-17.5) gm/dL Hct 34.2 L (39.0-53.0) % Lymphocytes # 0.4 L (1.0-4.8) k/uL Sodium 133 L (137-145) mmol/L Carbon Dioxide 18 L (22-30) mmol/L BUN 34 H (9-20) mg/dL Creatinine 1.42 H (0.66-1.25) mg/dL Glucose 106 H (74-99) mg/dL Total Bilirubin 2.0 H (0.2-1.3) mg/dL AST 487 H (17-59) U/L ALT 469 H (21-72) U/L Alkaline Phosphatase 359 H (38-126) U/L Urine Protein 1+ H (Negative) Urine Ketones Trace H (Negative) Urine Blood Small H (Negative) Ur Leukocyte Esterase Large H (Negative) Urine WBC >182 H (0-5) /hpf Urine WBC Clumps Many H (None) /hpf Urine Bacteria Many H (None) /hpf Urine Mucus Rare H (None) /hpf Microbiology - Last 24 Hours (Table) 04/04/18 20:42 Urine Culture - Preliminary Urine,Voided Thrombosis Risk Factor Assmnt - Choose All That Apply Any of the Below Risk Factors Present?: Yes Each Factor Represents 1 point: Age 41-60 years, Obesity (BMI >25), Swollen legs (current) Other Risk Factors: Yes Each Risk Factor Represents 2 Points: Patient confined to bed Thrombosis Risk Factor Assessment Total Risk Factor Score: 5 Thrombosis Risk Factor Assessment Level: High Risk Assessment and Plan Assessment: Acute UTI History of kidney stones and recurrent UTI Acute kidney injury Dehydration Elevated liver enzymes History of seizure on Keppra History of quadriplegia/paraplegia, from old cervical spine injury in 1984 Plan: This is a pleasant 52 years old male who is quadriplegic comes with another episode of UTI and lipid liver enzymes. Also has acute kidney injury on presentation. Continue with IV fluids, continue with antibiotics. Infectious disease consult. Also ultrasound of the liver and kidney system. Acute Hepatitis panel. Labs and medication were reviewed.. Continue same treatment. Continue with symptomatic treatment. Resume home medication. Monitor lytes and vitals. DVT and GI prophylaxis. Further recommendations of the clinical course of the patient DVT prophylaxis: Subcutaneous heparin GI Prophylaxis: Pepcid PT/OT: Pending Prognosis is guarded
[2018-04-05] MEDS: HEPARIN SODIUM,PORCINE 5,000 UNIT/ML 1 ML VIAL SQ SCH ×3 (08:21→20:56)
[2018-04-05] MEDS: FAMOTIDINE 20 MG TAB PO SCH ×2 (08:21→21:21)
[2018-04-05] MEDS: levETIRAcetam 250 MG TAB PO SCH (08:21)
[2018-04-05] MEDS ORDERED: FAMOTIDINE 20 MG TAB PO SCH (09:00)
[2018-04-05 09:03] LABS: Basophils % (A) 0 %; Eosinophils # (A) 0.3 k/uL (0-0.7); Eosinophils % (A) 6 %; HCT 33.7 % (39.0-53.0); HGB 11.1 gm/dL (13.0-17.5); Lymphocytes # (A) 0.3 k/uL (1.0-4.8); Lymphocytes % (A) 7 %; MCH 27.7 pg (25.0-35.0); MCHC 32.9 g/dL (31.0-37.0); MCV 84.1 fL (80.0-100.0); Mean Platelet Volume 6.6; Monocytes # (A) 0.3 k/uL (0-1.0); Monocytes % (A) 8 %; Neutrophils # (A) 3.3 k/uL (1.3-7.7); Neutrophils % (A) 78 %; Platelet Count 171 k/uL (150-450); RDW 15.1 % (11.5-15.5); WBC 4.3 k/uL (3.8-10.6)
[2018-04-05 09:13] LABS: Albumin 3.6 g/dL (3.5-5.0); Total Bilirubin 1.8 mg/dL (0.2-1.3); Total Protein 7.1 g/dL (6.3-8.2)
--- NOTE | 2018-04-05 15:11 | US ---
EXAMINATION TYPE: US abd limited kidneys/bladder DATE OF EXAM: 04/05/2018 COMPARISON: US 04/11/2017, CT 03/29/2017, MRI CLINICAL HISTORY: Elevated liver enzymes. UTI EXAM MEASUREMENTS: Liver Length: 12.2 cm Gallbladder Wall: 0.3 cm CBD: 0.5 cm Right Kidney: 10.7 x 4.3 x 5.1 cm Left Kidney: 10.4 x 5.8 x 4.9 cm Pancreas: not well visualized due to midline bowel gas. Liver: Liver shows a somewhat coarse echotexture. Gallbladder: No stones seen CBD: wnl Right Kidney: Thinned cortex, difficult to visualize as kidney is echogenic, multiple stones with sh adowing, largest measures 1.7 x 1.6 cm Left Kidney: Thinned cortex, difficult to visualize as kidney is echogenic, Bladder: wnl Bilateral Jets Seen No IMPRESSION: Exam is limited. Correlate for medical renal disease, renal stones. Gallbladder wall is t hickened. There may be underlying hepatic steatosis, hepatocellular disease.
[2018-04-05 17:21] LABS: Hepatitis A Antibody IgM Non-Reactive (Non-Reactive); Hepatitis B Core IgM Non-Reactive (Non-Reactive)
--- NOTE | 2018-04-05 23:08 | CONS ---
CONSULTATION DATE OF SERVICE: 04/05/2018. REASON FOR CONSULTATION: Urinary tract infection. HISTORY OF PRESENT ILLNESS: The patient is a 52-year-old male, well known to my service from previous admission to this facility. The patient did have a history of quadriplegia secondary to C5-6 injury back in 1994. The patient has a history of recurrent UTI and currently wears a condom catheter. Apparently the patient did have a UA and cultures obtained from his catheter by his visiting physician that grew multi different pathogens. The patient was advised to go to the hospital for antibiotic therapy. The patient currently denies having any fevers or any chills. The patient denies having any chest pain or shortness of breath or cough. Denies any abdominal pain. No nausea, vomiting, or any diarrhea. The patient did have a repeat UA obtained. He was started on Zosyn and admitted to the hospital. Infectious Disease was consulted for further recommendations regarding antibiotic therapy since the patient has been admitted. No fever has been recorded. The patient is not tachycardic. White count has been normal. UA was positive with large leukocyte esterases and more than 1 WBC. Did have elevated liver enzymes. Hepatitis A, B and C has been negative. REVIEW OF SYSTEMS: Positive points have been mentioned in HPI. The rest of the systems are negative. PATIENT'S PAST MEDICAL HISTORY: C5-6 injury with quadriplegia, history of recurrent UTI, seizure disorder, gastroesophageal reflux disease, UTI and some pressure ulcers which are currently healed. PAST SURGICAL HISTORY: Multiple surgeries for skin grafts for his pressure sores, right ureteroscopy with lithotripsy, , cystoscopy with irrigation of the bladder. SOCIAL HISTORY: No history of smoking, drinking, or drug use. FAMILY HISTORY: No pertinent findings noticed. ALLERGIES: SULFA ANTIBIOTIC. MEDICATIONS: Medications include the patient is currently on Zosyn at 3.75 g every 8 hours, the patient is on Narcan Keppra, heparin, and Tylenol. PHYSICAL EXAMINATION: Blood pressure 159/90, pulse of 57, temperature 96.9, he is 97% on room air. GENERAL DESCRIPTION: A middle-aged male lying in bed in no distress. No tachypnea or accessory muscle of respiration use. HEENT: Shows slight pallor. No scleral icterus. Oral mucosa slightly dry. No pharyngeal erythema or thrush. NECK: Trachea central. No thyromegaly. LUNGS: Unlabored breathing. Clear to auscultation anteriorly. HEART: S1, S2. Regular rate and rhythm. ABDOMEN: Soft, no tenderness. No guarding or rigidity. EXTREMITIES: No edema of the feet. SKIN: No rash or mass palpable. NEUROLOGIC: The patient is awake, alert, oriented. PSYCH: Mood and affect normal. LABS: Hemoglobin is 11.1, white count 4.3, BUN of 25, creatinine is 1.25. UA was positive with large , more than 2 WBC. Cultures currently pending. Hepatitis serologies are negative. Liver enzymes also slightly elevated. Blood and urine cultures are currently pending. DIAGNOSTIC IMPRESSION AND PLAN: 1. Patient admitted to the hospital on the basis of outpatient urine culture which grew multiple pathogen, likely positive for possible Mclaughlin colonization rather than a true UTI. Mild UTI current positive not entirely excluded. 2. The patient to have elevated liver enzymes. Hepatitis panel was negative. Ultrasound suspicion for gallbladder wall thickening. Will need further workup to rule out cholecystitis. PLAN: 1. We will obtain a CT of the abdomen and pelvis in the a.m. with contrast to better define his abnormality of the liver and gallbladder area and to rule out cholecystitis. 2. Await the urine cultures to finalize. 3. Zosyn 3.7 g every 8 hours. 4. We will follow up on his clinical condition and culture to further adjust medication if needed. Thank you for this consultation. Will follow this patient along with you. MMODL / IJN: [id number] /
[2018-04-06] MEDS: PIPERACILLIN-TAZOBACTAM 3.375 GM in SODIUM CHLORIDE 0.9% 100 ML IVPB SCH ×3 (03:00→20:01)
[2018-04-06] MEDS: SODIUM CHLORIDE 0.9% 1,000 ML IV SCH ×2 (03:04→20:03)
[2018-04-06 07:36] LABS: Basophils % (A) 0 %; Eosinophils # (A) 0.3 k/uL (0-0.7); Eosinophils % (A) 7 %; HCT 32.7 % (39.0-53.0); Lymphocytes # (A) 0.6 k/uL (1.0-4.8); Lymphocytes % (A) 15 %; MCH 28.4 pg (25.0-35.0); MCHC 33.5 g/dL (31.0-37.0); MCV 84.9 fL (80.0-100.0); Mean Platelet Volume 7.1; Monocytes # (A) 0.4 k/uL (0-1.0); Monocytes % (A) 8 %; Neutrophils # (A) 2.9 k/uL (1.3-7.7); Neutrophils % (A) 68 %; Platelet Count 177 k/uL (150-450); RBC 3.85 m/uL (4.30-5.90); RDW 15.4 % (11.5-15.5); WBC 4.2 k/uL (3.8-10.6)
[2018-04-06 07:55] LABS: ALT 390 U/L (21-72); AST 182 U/L (17-59); Albumin 3.4 g/dL (3.5-5.0); Alkaline Phosphatase 290 U/L (38-126); Anion Gap 11 mmol/L; Blood Urea Nitrogen 21 mg/dL (9-20); Calcium 8.9 mg/dL (8.4-10.2); Carbon Dioxide 17 mmol/L (22-30); Chloride 108 mmol/L (98-107); Glucose 79 mg/dL (74-99); Sodium 136 mmol/L (137-145); Total Bilirubin 1.2 mg/dL (0.2-1.3); Total Protein 6.6 g/dL (6.3-8.2)
[2018-04-06] MEDS: FAMOTIDINE 20 MG TAB PO SCH ×2 (08:37→22:05)
[2018-04-06] MEDS: levETIRAcetam 250 MG TAB PO SCH (08:37)
[2018-04-06] MEDS: HEPARIN SODIUM,PORCINE 5,000 UNIT/ML 1 ML VIAL SQ SCH ×2 (08:38→22:03)
[2018-04-06] MEDS: IOPAMIDOL-300 CONTRAST 30 ML VIAL (ORAL USE) PO PRN ×2 (08:38→09:22)
--- NOTE | 2018-04-06 10:37 | P.PN ---
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 History of kidney stones and frequent UTI. Patient is quadriplegic /paraplegic however he lives at home and his brother, mother and caregiver taking care of him. Patient states that about 6 days ago his visiting physician put him on oral antibiotics for possible UTI, however on reevaluating him yesterday by his visiting nurse and physician, patient has still complaining of from soreness in his muscles and joints especially the arm or shoulders dark urine and dysuria and limits more sleepy Valerio him to the hospital. On admission his Vitas looks stable and his been afebrile. CBC showed mild anemia, BMP showing mild hyponatremia and acute kidney injury with creatinine 1.4, compared to baseline at 1.0 and elevated liver enzymes urinalysis is suspicious for infection. Urine culture has been sent. 04/06/2018 Patient today's pain in the arm and shoulders have resolved and he rates it at 0 /10 in severity. He denies any urinary signs symptoms for example no dysuria or change in frequency, he says his urine is like regular or normal status. Patient still with no leukocytosis or fever. still on antibiotic. Urine culture is still in progress. Blood culture no growth in 24 hours. ID consult is appreciated. Patient might have contamination versus UTI. Continue with antibiotic as per ID team. Elevated liver enzymes are trending down, hepatitis panel was negative and liver ultrasound was nonconclusive. CT of the abdomen and pelvis is done and the result is pending. Objective - Vital Signs Vital signs: Vital Signs Temp 97.5 F L 04/06/18 05:00 Pulse 69 04/06/18 05:00 Resp 16 04/06/18 05:00 BP 97/56 04/06/18 05:00 Pulse Ox 97 04/06/18 05:00 Intake & Output 04/05/18 04/06/18 04/06/18 18:59 06:59 18:59 Intake Total 1680 1890 Output Total 650 1950 Balance 1030 -60 Weight 90 kg Intake: Intake, IV Titration 1300 Amount Piperacillin-Tazobactam 3 100 .375 gm In Sodium Chloride 0.9% 100 ml @ 25 mls/hr IVPB ONCE STA Rx# :[id number] Piperacillin-Tazobactam 3 100 .375 gm In Sodium Chloride 0.9% 100 ml @ 25 mls/hr IVPB Q8H [facility] Rx#: [id number] Sodium Chloride 0.9% 1, 1100 000 ml @ 100 mls/hr IV . Q10H [facility] Rx#:[id number] Oral 1680 590 Output: Urine 650 1950 Other: Voiding Method Diaper Diaper - Exam GENERAL: The patient is alert and oriented x3, not in any acute distress. Well developed, well nourished. HEENT: Pupils are round and equally reacting to light. EOMI. No scleral icterus. No conjunctival pallor. Normocephalic, atraumatic. No pharyngeal erythema. No thyromegaly. CARDIOVASCULAR: S1 and S2 present. No murmurs, rubs, or gallops. PULMONARY: Chest is clear to auscultation, no wheezing or crackles. ABDOMEN: Soft, nontender, nondistended, normoactive bowel sounds. No palpable organomegaly. MUSCULOSKELETAL: No joint swelling or deformity. EXTREMITIES: No cyanosis, clubbing, or pedal edema. -NEUROLOGICAL: Gross neurological examination did not reveal any focal deficits. He is paraplegic SKIN: No rashes. - Labs CBC & Chem 7: 04/06/18 07:28 04/06/18 07:28 Labs: Abnormal Lab Results - Last 24 Hours (Table) 04/06/18 04/06/18 Range/Units 07:28 07:28 RBC 3.85 L (4.30-5.90) m/uL Hgb 11.0 L (13.0-17.5) gm/dL Hct 32.7 L (39.0-53.0) % Lymphocytes # 0.6 L (1.0-4.8) k/uL Sodium 136 L (137-145) mmol/L Chloride 108 H (98-107) mmol/L Carbon Dioxide 17 L (22-30) mmol/L BUN 21 H (9-20) mg/dL AST 182 H (17-59) U/L ALT 390 H (21-72) U/L Alkaline Phosphatase 290 H (38-126) U/L Albumin 3.4 L (3.5-5.0) g/dL Microbiology - Last 24 Hours (Table) 04/04/18 18:25 Blood Culture - Preliminary Blood No Growth after 24 hours Assessment and Plan Assessment: Acute UTI History of kidney stones and recurrent UTI Acute kidney injury Dehydration Elevated liver enzymes History of seizure on Keppra History of quadriplegia/paraplegia, 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 Also has acute kidney injury on presentation. Continue with IV fluids, continue with antibiotics. Infectious disease consult. Also ultrasound of the liver and kidney system: Inconclusive. Negative Acute Hepatitis panel. CT of the abdomen and pelvis Labs and medication were reviewed.. Continue same treatment. Continue with symptomatic treatment. Resume home medication. Monitor lytes and vitals. DVT and GI prophylaxis. Further recommendations of the clinical course of the patient DVT prophylaxis: Subcutaneous heparin GI Prophylaxis: Pepcid PT/OT: Pending Prognosis is guarded
--- NOTE | 2018-04-06 12:20 | CT ---
EXAMINATION TYPE: CT abdomen pelvis w con DATE OF EXAM: 04/06/2018 COMPARISON: CT abdomen pelvis March 29, 2017 HISTORY: elevated LFTs CT DLP: 1701 mGycm, Automated Exposure Control for Dose Reduction was Utilized. CONTRAST: CT scan of the abdomen and pelvis is performed with oral and with IV Contrast, patient injected with 100 mL of Isovue 300. FINDINGS: Evaluation suboptimal secondary to patient's large body habitus. LUNG BASES: There is left basilar linear scarring. Left axis or positioning heart is redemonstrated LIVER/GB: Visualized liver remains normal in size and heterogeneously hypodense suggesting diffuse fa tty infiltration. No suspicious intrahepatic masses or ductal dilatation is seen. Gallbladder is unre markable. PANCREAS: No significant abnormality is seen. SPLEEN: No significant abnormality is seen. ADRENALS: No significant abnormality is seen. KIDNEYS: There is cortical thinning in both kidneys. Bilateral nephrolithiasis is present with at annie st 4 large calculi lower pole level right kidney near level of more prominent focal cortical thinning . There are 4 scattered calculi throughout the left kidney also seen measuring up to 11 mm in size co blaine image 66. There is symmetric cortical medullary uptake and excretion without hydronephrosis darling aterally. Air-fluid level is seen in mildly dilated bladder. Correlate clinically for recent instrume ntation. BOWEL: Oral contrast does not reach colonic level. There is no suspicious small or large bowel dilata tion. Normal appendix is seen in the right upper pelvis. PROSTATE/SEMINAL VESICLES: There is suspected TURP type defect in nonenlarged prostate gland. Correla te clinically. LYMPH NODES: No greater than 1cm abdominal or pelvic lymph nodes are appreciated. OSSEOUS STRUCTURES: By radiation osseous structures is suboptimal due to positioning. There is multil evel spurring and disc space narrowing with facet arthropathy in the lower lumbar spine. Since prior CT there is healed subcapital fracture left proximal femur. There is incomplete evaluation of right h ip joint. There is fairly advanced narrowing and bilateral hip joints. Underlying pelvic deformity is felt present similar to prior. OTHER: No significant additional abnormality is seen. IMPRESSION: 1. Redemonstration of diffuse fatty infiltration throughout liver. 2. Air-fluid level noted in mildly dilated bladder, correlate clinically for recent Mclaughlin catheteriza tion otherwise other etiologies such as fistula need to be considered. 3. Suboptimal study due to patient's underlying medical condition including chronic pelvic deformity. There is interval subcapital fracture left proximal femur from prior CT but it is felt older in natu re as it is well corticated on current study.
--- NOTE | 2018-04-06 22:48 | PN ---
PROGRESS NOTE DATE OF SERVICE: 04/06/2018. REASON FOR FOLLOWUP: 1. UTI. 2. Abnormal ultrasound. INTERVAL HISTORY: The patient is afebrile. He has been breathing comfortably. The patient denies having any chest pain, shortness of breath or cough. No nausea, vomiting, abdominal pain or diarrhea. PHYSICAL EXAMINATION: Blood pressure 133/78 with a pulse of 61, temperature 97.8. He is 96% on room air. General description is a middle-aged male lying in bed in no distress. RESPIRATORY SYSTEM: Unlabored breathing. Clear to auscultation anteriorly. HEART: S1, S2. Regular rate and rhythm. ABDOMEN: Soft. No tenderness. LABS: BUN of 21, creatinine 1.07, hemoglobin 11, white count 4.2. Urine culture currently pending. Blood culture negative. CT of abdomen and pelvis did not show any abnormality in the liver. DIAGNOSTIC IMPRESSION AND PLAN: Patient admitted to hospital with a catheter-associated urinary tract infection in a patient who did have a condom catheter with multiple pathogens in the outpatient setting. Culture here has been negative so far. Currently on Zosyn; to continue, with discharge antibiotic depending upon the culture report. Family was present at the bedside. Their questions were answered. MMODL / IJN: [id number] /
[2018-04-07] MEDS: PIPERACILLIN-TAZOBACTAM 3.375 GM in SODIUM CHLORIDE 0.9% 100 ML IVPB SCH ×3 (02:23→18:03)
[2018-04-07 08:11] LABS: Basophils % (A) 0 %; Eosinophils # (A) 0.3 k/uL (0-0.7); Eosinophils % (A) 7 %; HCT 33.3 % (39.0-53.0); Lymphocytes # (A) 0.8 k/uL (1.0-4.8); Lymphocytes % (A) 17 %; MCHC 33.1 g/dL (31.0-37.0); MCV 84.8 fL (80.0-100.0); Mean Platelet Volume 7.1; Monocytes # (A) 0.3 k/uL (0-1.0); Monocytes % (A) 6 %; Neutrophils # (A) 3.2 k/uL (1.3-7.7); Neutrophils % (A) 69 %; Platelet Count 194 k/uL (150-450); RBC 3.92 m/uL (4.30-5.90); RDW 15.3 % (11.5-15.5); WBC 4.7 k/uL (3.8-10.6)
[2018-04-07 08:30] LABS: ALT 288 U/L (21-72); AST 87 U/L (17-59); Albumin 3.4 g/dL (3.5-5.0); Alkaline Phosphatase 256 U/L (38-126); Anion Gap 10 mmol/L; Blood Urea Nitrogen 21 mg/dL (9-20); Carbon Dioxide 19 mmol/L (22-30); Chloride 107 mmol/L (98-107); Glucose 83 mg/dL (74-99); Sodium 136 mmol/L (137-145); Total Protein 6.6 g/dL (6.3-8.2)
--- NOTE | 2018-04-07 10:16 | P.PN ---
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 History of kidney stones and frequent UTI. Patient is quadriplegic /paraplegic however he lives at home and his brother, mother and caregiver taking care of him. Patient states that about 6 days ago his visiting physician put him on oral antibiotics for possible UTI, however on reevaluating him yesterday by his visiting nurse and physician, patient has still complaining of from soreness in his muscles and joints especially the arm or shoulders dark urine and dysuria and limits more sleepy Valerio him to the hospital. On admission his Vitas looks stable and his been afebrile. CBC showed mild anemia, BMP showing mild hyponatremia and acute kidney injury with creatinine 1.4, compared to baseline at 1.0 and elevated liver enzymes urinalysis is suspicious for infection. Urine culture has been sent. 04/06/2018 Patient today's pain in the arm and shoulders have resolved and he rates it at 0 /10 in severity. He denies any urinary signs symptoms for example no dysuria or change in frequency, he says his urine is like regular or normal status. Patient still with no leukocytosis or fever. still on antibiotic. Urine culture is still in progress. Blood culture no growth in 24 hours. ID consult is appreciated. Patient might have contamination versus UTI. Continue with antibiotic as per ID team. Elevated liver enzymes are trending down, hepatitis panel was negative and liver ultrasound was nonconclusive. CT of the abdomen and pelvis is done and the result is pending. 04/07/2018 Patient is with no signs and symptoms, he looks and feels like yesterday. Urine culture is still pending and is showing gram-negative bacilli more than 100,000 units, final sensitivities still pending. Patient states that he follow -ups with Dr. Leticia Maya the urologist and he knows about his kidney stones and he was planning to do some think once his pressure ulcers healed which is almost clear as per patient. Also he told me he has a visiting physician Dr. Flores , whom he can call and see him in one week as per patient. Vitas and labs were reviewed and looks stable, his liver tests are trending down slowly Objective - Vital Signs Vital signs: Vital Signs Temp 98.6 F 04/07/18 05:00 Pulse 74 04/07/18 05:00 Resp 18 04/07/18 05:00 BP 115/67 04/07/18 05:00 Pulse Ox 97 04/07/18 05:00 Intake & Output 04/06/18 04/07/18 04/07/18 18:59 06:59 18:59 Intake Total 3000 1000 Output Total 950 1850 Balance 2050 -850 Weight 90 kg Intake: Intake, IV Titration 200 1000 Amount Piperacillin-Tazobactam 3 200 200 .375 gm In Sodium Chloride 0.9% 100 ml @ 25 mls/hr IVPB Q8H MANDA Rx#: [id number] Sodium Chloride 0.9% 1, 800 000 ml @ 50 mls/hr IV . Q20H MANDA Rx#:[id number] Oral 2800 Output: Urine 950 1850 Other: Voiding Method Diaper Incontinent - Exam GENERAL: The patient is alert and oriented x3, not in any acute distress. Well developed, well nourished. HEENT: Pupils are round and equally reacting to light. EOMI. No scleral icterus. No conjunctival pallor. Normocephalic, atraumatic. No pharyngeal erythema. No thyromegaly. CARDIOVASCULAR: S1 and S2 present. No murmurs, rubs, or gallops. PULMONARY: Chest is clear to auscultation, no wheezing or crackles. ABDOMEN: Soft, nontender, nondistended, normoactive bowel sounds. No palpable organomegaly. MUSCULOSKELETAL: No joint swelling or deformity. EXTREMITIES: No cyanosis, clubbing, or pedal edema. -NEUROLOGICAL: Gross neurological examination did not reveal any focal deficits. He is paraplegic SKIN: No rashes. - Labs CBC & Chem 7: 04/07/18 07:32 04/07/18 07:32 Labs: Abnormal Lab Results - Last 24 Hours (Table) 04/07/18 04/07/18 Range/Units 07:32 07:32 RBC 3.92 L (4.30-5.90) m/uL Hgb 11.0 L (13.0-17.5) gm/dL Hct 33.3 L (39.0-53.0) % Lymphocytes # 0.8 L (1.0-4.8) k/uL Sodium 136 L (137-145) mmol/L Carbon Dioxide 19 L (22-30) mmol/L BUN 21 H (9-20) mg/dL AST 87 H (17-59) U/L ALT 288 H (21-72) U/L Alkaline Phosphatase 256 H (38-126) U/L Albumin 3.4 L (3.5-5.0) g/dL Microbiology - Last 24 Hours (Table) 04/04/18 20:42 Urine Culture - Preliminary Urine,Voided Gram Neg Bacilli 04/04/18 18:25 Blood Culture - Preliminary Blood No Growth after 48 hours Assessment and Plan Assessment: Acute UTI History of kidney stones and recurrent UTI Acute kidney injury Dehydration Elevated liver enzymes History of seizure on Keppra History of quadriplegia/paraplegia, 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 Also has acute kidney injury on presentation. Continue with IV fluids, continue with antibiotics. Infectious disease consult. Also ultrasound of the liver and kidney system: Inconclusive. Negative Acute Hepatitis panel. CT of the abdomen and pelvis Labs and medication were reviewed.. Continue same treatment. Continue with symptomatic treatment. Resume home medication. Monitor lytes and vitals. DVT and GI prophylaxis. Further recommendations of the clinical course of the patient DVT prophylaxis: Subcutaneous heparin GI Prophylaxis: Pepcid PT/OT: Pending Prognosis is guarded
[2018-04-07] MEDS: HEPARIN SODIUM,PORCINE 5,000 UNIT/ML 1 ML VIAL SQ SCH ×2 (11:19→21:53)
[2018-04-07] MEDS: FAMOTIDINE 20 MG TAB PO SCH ×2 (11:20→21:49)
[2018-04-07] MEDS: levETIRAcetam 250 MG TAB PO SCH (11:20)
[2018-04-08] MEDS: PIPERACILLIN-TAZOBACTAM 3.375 GM in SODIUM CHLORIDE 0.9% 100 ML IVPB SCH ×3 (02:50→19:58)
[2018-04-08] MEDS: HEPARIN SODIUM,PORCINE 5,000 UNIT/ML 1 ML VIAL SQ SCH ×2 (08:39→20:00)
[2018-04-08] MEDS: levETIRAcetam 250 MG TAB PO SCH (08:40)
[2018-04-08] MEDS: FAMOTIDINE 20 MG TAB PO SCH ×2 (08:41→20:00)
[2018-04-08] MEDS: SODIUM CHLORIDE 0.9% 1,000 ML IV SCH (08:42)
[2018-04-08 09:24] LABS: Albumin 3.4 g/dL (3.5-5.0); Bilirubin, Delta 0.3 mg/dL (0.0-0.2); Bilirubin,Unconjugated 0.3 mg/dL (0.0-1.1); Total Bilirubin 0.6 mg/dL (0.2-1.3); Total Protein 6.4 g/dL (6.3-8.2)
[2018-04-08 21:48] VITALS: RESP 16
[2018-04-09] MEDS: PIPERACILLIN-TAZOBACTAM 3.375 GM in SODIUM CHLORIDE 0.9% 100 ML IVPB SCH ×2 (03:37→12:54)
[2018-04-09 05:16] VITALS: BP 159/84; PULSE 77; TEMP 97.5
[2018-04-09] MEDS: SODIUM CHLORIDE 0.9% 1,000 ML IV SCH (07:32)
[2018-04-09 08:04] LABS: Albumin 3.3 g/dL (3.5-5.0); Bilirubin, Delta 0.2 mg/dL (0.0-0.2); Bilirubin,Unconjugated 0.3 mg/dL (0.0-1.1); Total Bilirubin 0.5 mg/dL (0.2-1.3); Total Protein 6.4 g/dL (6.3-8.2)
[2018-04-09] MEDS: HEPARIN SODIUM,PORCINE 5,000 UNIT/ML 1 ML VIAL SQ SCH (08:45)
[2018-04-09] MEDS: FAMOTIDINE 20 MG TAB PO SCH (08:47)
--- NOTE | 2018-04-09 09:34 | P.PN ---
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 History of kidney stones and frequent UTI. Patient is quadriplegic /paraplegic however he lives at home and his brother, mother and caregiver taking care of him. Patient states that about 6 days ago his visiting physician put him on oral antibiotics for possible UTI, however on reevaluating him yesterday by his visiting nurse and physician, patient has still complaining of from soreness in his muscles and joints especially the arm or shoulders dark urine and dysuria and limits more sleepy Valerio him to the hospital. On admission his Vitas looks stable and his been afebrile. CBC showed mild anemia, BMP showing mild hyponatremia and acute kidney injury with creatinine 1.4, compared to baseline at 1.0 and elevated liver enzymes urinalysis is suspicious for infection. Urine culture has been sent. 04/06/2018 Patient today's pain in the arm and shoulders have resolved and he rates it at 0 /10 in severity. He denies any urinary signs symptoms for example no dysuria or change in frequency, he says his urine is like regular or normal status. Patient still with no leukocytosis or fever. still on antibiotic. Urine culture is still in progress. Blood culture no growth in 24 hours. ID consult is appreciated. Patient might have contamination versus UTI. Continue with antibiotic as per ID team. Elevated liver enzymes are trending down, hepatitis panel was negative and liver ultrasound was nonconclusive. CT of the abdomen and pelvis is done and the result is pending. 04/07/2018 Patient is with no signs and symptoms, he looks and feels like yesterday. Urine culture is still pending and is showing gram-negative bacilli more than 100,000 units, final sensitivities still pending. Patient states that he follow -ups with Dr. Leticia Maya the urologist and he knows about his kidney stones and he was planning to do some think once his pressure ulcers healed which is almost clear as per patient. Also he told me he has a visiting physician Dr. Flores , whom he can call and see him in one week as per patient. Vitas and labs were reviewed and looks stable, his liver tests are trending down slowly date of service: 04/08/2018 pt remains clinically stable as yesterday , no new symptom. urine culture came back positive for E.coli and Providencia, sensitivity is available , ID recommended pt to have picc line for intravenous antibiotic upon discharge rather than oral antibiotic, so discharge today was held. pt is agreeable although he was anxious to go home . pt is instructed to f/u with his urologist within one week after discharge and he agrees. Objective - Vital Signs Vital signs: Vital Signs Temp 97.5 F L 04/09/18 05:00 Pulse 77 04/09/18 05:00 Resp 16 04/09/18 05:00 BP 159/84 04/09/18 05:00 Pulse Ox 100 04/09/18 05:00 Intake & Output 04/08/18 04/09/18 04/09/18 18:59 06:59 18:59 Intake Total 750 Output Total 1600 Balance 750 -1600 Intake: Intake, IV Titration 500 Amount Piperacillin-Tazobactam 3 100 .375 gm In Sodium Chloride 0.9% 100 ml @ 25 mls/hr IVPB Q8H MANDA Rx#: [id number] Sodium Chloride 0.9% 1, 400 000 ml @ 50 mls/hr IV . Q20H MANDA Rx#:[id number] Oral 250 Output: Urine 1600 Other: Voiding Method Incontinent Incontinent Incontinent # Bowel Movements 1 - Exam GENERAL: The patient is alert and oriented x3, not in any acute distress. Well developed, well nourished. HEENT: Pupils are round and equally reacting to light. EOMI. No scleral icterus. No conjunctival pallor. Normocephalic, atraumatic. No pharyngeal erythema. No thyromegaly. CARDIOVASCULAR: S1 and S2 present. No murmurs, rubs, or gallops. PULMONARY: Chest is clear to auscultation, no wheezing or crackles. ABDOMEN: Soft, nontender, nondistended, normoactive bowel sounds. No palpable organomegaly. MUSCULOSKELETAL: No joint swelling or deformity. EXTREMITIES: No cyanosis, clubbing, or pedal edema. -NEUROLOGICAL: Gross neurological examination did not reveal any focal deficits. He is paraplegic SKIN: No rashes. 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 Also has acute kidney injury on presentation. Continue with IV fluids, continue with antibiotics. Infectious disease consult. Also ultrasound of the liver and kidney system: Inconclusive. Negative Acute Hepatitis panel. CT of the abdomen and pelvis Labs and medication were reviewed.. Continue same treatment. Continue with symptomatic treatment. Resume home medication. Monitor lytes and vitals. DVT and GI prophylaxis. Further recommendations of the clinical course of the patient DVT prophylaxis: Subcutaneous heparin GI Prophylaxis: Pepcid PT/OT: Pending Prognosis is guarded
[2018-04-09] MEDS ORDERED: LIDOCAINE 1% INJ 10MG/ML (20 ML MDV) ONE (11:50)
[2018-04-09] MEDS ORDERED: LIDOCAINE 1% INJ 10MG/ML (20 ML MDV) SQ ONE (12:22)
[2018-04-09] MEDS ORDERED: ERTAPENEM 1 GM in SODIUM CHLORIDE 0.9% 50 ML IVPB STA (15:42)
--- NOTE | 2018-04-09 18:40 | P.PN ---
Subjective Progress Note Date: 04/09/18 52-year-old male with spinal cord injury in 1994 is difficulties with urinary tract infections. Presented hospital evidence of infection and sepsis from urinary system. Procidentia and Escherichia coli were isolated that her regretfully resistant to all oral antibiotic therapy. He however is responding well to antibiotic therapy with Zosyn. Patient is improving and is ready for discharge to home. Working with discharge planning his insurance company for outpatient intravenous antibiotic therapy. Objective - Vital Signs Vital signs: Vital Signs Temp 97.5 F L 04/09/18 05:00 Pulse 77 04/09/18 05:00 Resp 16 04/09/18 05:00 BP 159/84 04/09/18 05:00 Pulse Ox 100 04/09/18 05:00 Intake & Output 04/08/18 04/09/18 04/09/18 18:59 06:59 18:59 Intake Total 750 Output Total 1600 3075 Balance 750 -1600 -3075 Weight 90 kg Intake: Intake, IV Titration 500 Amount Piperacillin-Tazobactam 3 100 .375 gm In Sodium Chloride 0.9% 100 ml @ 25 mls/hr IVPB Q8H MANDA Rx#: [id number] Sodium Chloride 0.9% 1, 400 000 ml @ 50 mls/hr IV . Q20H MANDA Rx#:[id number] Oral 250 Output: Urine 1600 3075 Other: Voiding Method Incontinent Incontinent Incontinent # Bowel Movements 1 - Exam Pleasant obese 52-year-old male No distress No wheezing Abdomen nondistended Urine is still cloudy Quadriplegia - Labs CBC & Chem 7: 04/07/18 07:32 04/07/18 07:32 Labs: Abnormal Lab Results - Last 24 Hours (Table) 04/09/18 Range/Units 07:09 ALT 192 H (21-72) U/L Alkaline Phosphatase 177 H (38-126) U/L Albumin 3.3 L (3.5-5.0) g/dL Microbiology - Last 24 Hours (Table) 04/04/18 18:25 Blood Culture - Preliminary Blood No Growth after 96 hours Laboratory Results WBC 4.7 k/uL (3.8-10.6) 04/07/18 07:32 RBC 3.92 m/uL (4.30-5.90) L 04/07/18 07:32 Hgb 11.0 gm/dL (13.0-17.5) L 04/07/18 07:32 Hct 33.3 % (39.0-53.0) L 04/07/18 07:32 MCV 84.8 fL (80.0-100.0) 04/07/18 07:32 MCH 28.0 pg (25.0-35.0) 04/07/18 07:32 MCHC 33.1 g/dL (31.0-37.0) 04/07/18 07:32 RDW 15.3 % (11.5-15.5) 04/07/18 07:32 Plt Count 194 k/uL (150-450) 04/07/18 07:32 Neutrophils % 69 % 04/07/18 07:32 Lymphocytes % 17 % 04/07/18 07:32 Monocytes % 6 % 04/07/18 07:32 Eosinophils % 7 % 04/07/18 07:32 Basophils % 0 % 04/07/18 07:32 Neutrophils # 3.2 k/uL (1.3-7.7) 04/07/18 07:32 Lymphocytes # 0.8 k/uL (1.0-4.8) L 04/07/18 07:32 Monocytes # 0.3 k/uL (0-1.0) 04/07/18 07:32 Eosinophils # 0.3 k/uL (0-0.7) 04/07/18 07:32 Basophils # 0.0 k/uL (0-0.2) 04/07/18 07:32 Sodium 136 mmol/L (137-145) L 04/07/18 07:32 Potassium 4.0 mmol/L (3.5-5.1) 04/07/18 07:32 Chloride 107 mmol/L (98-107) 04/07/18 07:32 Carbon Dioxide 19 mmol/L (22-30) L 04/07/18 07:32 Anion Gap 10 mmol/L 04/07/18 07:32 BUN 21 mg/dL (9-20) H 04/07/18 07:32 Creatinine 1.06 mg/dL (0.66-1.25) 04/07/18 07:32 Est GFR (CKD-EPI)AfAm >90 (>60 ml/min/1.73 sqM) 04/07/18 07:32 Est GFR (CKD-EPI)NonAf 80 (>60 ml/min/1.73 sqM) 04/07/18 07:32 Glucose 83 mg/dL (74-99) 04/07/18 07:32 Calcium 9.0 mg/dL (8.4-10.2) 04/07/18 07:32 Total Bilirubin 0.5 mg/dL (0.2-1.3) 04/09/18 07:09 Conjugated Bilirubin 0.0 mg/dL (0.0-0.3) 04/09/18 07:09 Unconjugated Bilirubin 0.3 mg/dL (0.0-1.1) 04/09/18 07:09 Delta Bilirubin 0.2 mg/dL (0.0-0.2) 04/09/18 07:09 AST 58 U/L (17-59) 04/09/18 07:09 ALT 192 U/L (21-72) H 04/09/18 07:09 Alkaline Phosphatase 177 U/L (38-126) H 04/09/18 07:09 Total Protein 6.4 g/dL (6.3-8.2) 04/09/18 07:09 Albumin 3.3 g/dL (3.5-5.0) L 04/09/18 07:09 Urine Color Yellow 04/04/18 20:42 Urine Appearance Turbid (Clear) 04/04/18 20:42 Urine pH 6.5 (5.0-8.0) 04/04/18 20:42 Ur Specific Saline 1.009 (1.001-1.035) 04/04/18 20:42 Urine Protein 1+ (Negative) H 04/04/18 20:42 Urine Glucose (UA) Negative (Negative) 04/04/18 20:42 Urine Ketones Trace (Negative) H 04/04/18 20:42 Urine Blood Small (Negative) H 04/04/18 20:42 Urine Nitrite Positive (Negative) 04/04/18 20:42 Urine Bilirubin Negative (Negative) 04/04/18 20:42 Urine Urobilinogen <2.0 mg/dL (<2.0) 04/04/18 20:42 Ur Leukocyte Esterase Large (Negative) H 04/04/18 20:42 Urine WBC >182 /hpf (0-5) H 04/04/18 20:42 Urine WBC Clumps Many /hpf (None) H 04/04/18 20:42 Ur Squamous Epith Cells 4 /hpf (0-4) 04/04/18 20:42 Urine Bacteria Many /hpf (None) H 04/04/18 20:42 Urine Mucus Rare /hpf (None) H 04/04/18 20:42 Hepatitis A IgM Ab Non-Reactive (Non-Reactive) 04/04/18 18:25 Hep Bs Antigen Non-Reactive (Non-Reactive) 04/04/18 18:25 Hep B Core IgM Ab Non-Reactive (Non-Reactive) 04/04/18 18:25 Hep C IgG Ab Non-Reactive (Non-Reactive) 04/04/18 18:25 Microbiology 04/04/18 18:25 Blood Blood Culture - Preliminary No Growth after 96 hours 04/04/18 20:42 Urine,Voided Urine Culture - Final Providencia stuartii Escherichia coli Assessment and Plan (1) UTI (urinary tract infection) Narrative/Plan: 52-year-old male with history of quadriplegia who has developed a urinary tract infection, the 2 gram-negative pathogens are resistant to oral agents and constantly will require outpatient intravenous antibiotic therapy. Invanz is an adequate choice and has been ordered. Insurance company is closed and the family is willing to briggs pay for the first couple doses of the intravenous antibiotic therapy to get him to home until there is further information. Scrips are given to the home care agency, care is discussed with the patient and the mother and the discharge team. This evidence of that chronic rash to his scalp and ketoconazole shampoo was given. Discharge home today. IV accessory in place the PICC line. Will need follow-up urinalysis and culture 4 days after his antibiotic course completed in 2 weeks to ensure resolution of his infection. Mother knows to call the office. Current Visit: Yes Status: Acute Code(s): N39.0 - URINARY TRACT INFECTION, SITE NOT SPECIFIED SNOMED Code(s): 56822812
--- NOTE | 2018-04-10 07:18 | IR ---
PICC LINE PLACEMENT: HISTORY: Infection requiring long-term antibiotic therapy PROCEDURE: Ultrasound guidance of PICC line placement. BEHAVIORAL HEALTH CARE MANAGER: Dr. Pitt. COMPLICATIONS: None ANESTHESIA: 1. 1% Lidocaine locally. FINDINGS/TECHNIQUE: The procedure was explained to the patient. The risks, complications, benefits and alternatives were discussed and any questions were answered. Informed consent was obtained. The patient was placed supine on the fluoroscopic table and prepped and draped in the usual sterile [facility] ion. Utilizing a 21 gauge needle and sonographic guidance, access in the right cephalic vein was ac hieved and there is placement of a 0.018 guidewire. The vein is patent. A 5-F. sheath was placed ov er the guidewire. The guidewire and dilator were removed and a 5-F. Double lumen PICC line was place d through the sheath with the chest x-ray confirming the tip at the level of the SVC. The sheath was removed, the catheter was flushed and sutured into position. The patient was stable throughout the procedure and remained stable upon discharge from the Department of Radiology. The vein puncture was patent under ultrasound. A helton scale image was obtained to document patency of the vein punctured. All elements of the maximal barrier technique were utilized. 0.1 minutes of fluoroscopy and one image submitted. IMPRESSION: 1. Successful PICC line placement under ultrasound performed bedside within the ICU.
--- NOTE | 2018-04-16 22:27 | P.DS ---
Providers Date of admission: 04/04/18 21:13 Expected date of discharge: 04/09/18 Attending physician: Shawn Archer MD Consults: 04/05/18 04:43 Consult Physician Routine Consulting Provider: Trenton Oreilly Consult Reason/Comments: UTI/condom cath 9 organisms Do you want consulting provider notified?: Yes, Notify in am [facility] Course: Discharge diagnosis Acute UTI with primary and she had an E. coli. 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 History of kidney stones and frequent UTI. Patient is quadriplegic /paraplegic however he lives at home and his brother, mother and caregiver taking care of him. Patient states that about 6 days ago his visiting physician put him on oral antibiotics for possible UTI, however on reevaluating him yesterday by his visiting nurse and physician, patient has still complaining of from soreness in his muscles and joints especially the arm or shoulders dark urine and dysuria and limits more sleepy Valerio him to the hospital. On admission his Vitas looks stable and his been afebrile. CBC showed mild anemia, BMP showing mild hyponatremia and acute kidney injury with creatinine 1.4, compared to baseline at 1.0 and elevated liver enzymes urinalysis is suspicious for infection. Urine culture has been sent. 04/06/2018 Patient today's pain in the arm and shoulders have resolved and he rates it at 0 /10 in severity. He denies any urinary signs symptoms for example no dysuria or change in frequency, he says his urine is like regular or normal status. Patient still with no leukocytosis or fever. still on antibiotic. Urine culture is still in progress. Blood culture no growth in 24 hours. ID consult is appreciated. Patient might have contamination versus UTI. Continue with antibiotic as per ID team. Elevated liver enzymes are trending down, hepatitis panel was negative and liver ultrasound was nonconclusive. CT of the abdomen and pelvis is done and the result is pending. 04/07/2018 Patient is with no signs and symptoms, he looks and feels like yesterday. Urine culture is still pending and is showing gram-negative bacilli more than 100,000 units, final sensitivities still pending. Patient states that he follow -ups with Dr. Leticia Maya the urologist and he knows about his kidney stones and he was planning to do some think once his pressure ulcers healed which is almost clear as per patient. Also he told me he has a visiting physician Dr. Flores , whom he can call and see him in one week as per patient. Vitas and labs were reviewed and looks stable, his liver tests are trending down slowly date of service: 04/08/2018 pt remains clinically stable as yesterday , no new symptom. urine culture came back positive for E.coli and Providencia, sensitivity is available , ID recommended pt to have picc line for intravenous antibiotic upon discharge rather than oral antibiotic, so discharge today was held. pt is agreeable although he was anxious to go home . pt is instructed to f/u with his urologist within one week after discharge and he agrees. 04/09/2018 Patient denied any complaints of chest pain or shortness of breath. No nausea vomiting or abdominal pain. Patient is being discharged home with PICC line to continue the antibiotics in the form of ertapenem as per ID recommendations. Otherwise no acute overnight issues. Discharge physical examination GENERAL: The patient is alert and oriented x3, not in any acute distress. Well developed, well nourished. HEENT: Pupils are round and equally reacting to light. EOMI. No scleral icterus. No conjunctival pallor. Normocephalic, atraumatic. No pharyngeal erythema. No thyromegaly. CARDIOVASCULAR: S1 and S2 present. No murmurs, rubs, or gallops. PULMONARY: Chest is clear to auscultation, no wheezing or crackles. ABDOMEN: Soft, nontender, nondistended, normoactive bowel sounds. No palpable organomegaly. MUSCULOSKELETAL: No joint swelling or deformity. EXTREMITIES: No cyanosis, clubbing, or pedal edema. -NEUROLOGICAL: Gross neurological examination did not reveal any focal deficits. He is paraplegic SKIN: No rashes. Discharge vitals reviewed. Total time taken greater than 35 minutes including 18 minutes for counseling and coordination of care.. Patient Condition at Discharge: Fair Plan - Discharge Summary Discharge Rx Participant: No New Discharge Prescriptions: New Ertapenem [INVanz] 1 gm IVPB Q24H #14 bag Ketoconazole 2% Shampoo [Nizoral] 1 applic TOPICAL Q3D #200 ml Continue levETIRAcetam [Keppra Xr] 750 mg PO DAILY Cyanocobalamin (Vitamin B-12) [Vitamin B-12] 1,000 mcg PO DAILY Discontinued Nitrofurantoin Monohyd/M-Cryst [Macrobid] 100 mg PO BID Discharge Medication List Cyanocobalamin (Vitamin B-12) [Vitamin B-12] 1,000 mcg PO DAILY 04/04/18 [ History] levETIRAcetam [Keppra Xr] 750 mg PO DAILY 04/04/18 [History] Ertapenem [INVanz] 1 gm IVPB Q24H #14 bag 04/08/18 [Rx] Ketoconazole 2% Shampoo [Nizoral] 1 applic TOPICAL Q3D #200 ml 04/09/18 [Rx] Follow up Appointment(s)/Referral(s): Kenton Oliver MD [STAFF PHYSICIAN] - 1 Week (your urologist , for kidney stones ) Enoch Flores MD [Primary Care Provider] - 1-2 days [facility] Visiting Nurse, [NON-STAFF] - 1 Week Ambulatory/Diagnostic Orders: Basic Metabolic Panel [LAB.AMB] Location: None Selected Complete Blood Count w/diff [LAB.AMB] Location: None Selected Patient Instructions/Handouts: Urinary Tract Infection in Men (DC) Activity/Diet/Wound Care/Special Instructions: Resume previous diet Activity as tolerated Discharge Disposition: HOME WITH HOME HEALTH SERVICES
== END 2018-04-09 18:41 | disposition home health service (06) | DRG 698 ==
LOC: SUPCPDRO 17:32 → EC 17:32 → 3NMEDONC 21:13
PROVIDERS: ADMIT Internal Medicine; ATTEND Internal Medicine
PROC: 02HV33Z Insertion of Infusion Device into Superior Vena Cava, Percutaneous Approach (ICD-10-PCS; principal; 2018-04-09 11:30)
DX: T83.518A Infection and inflammatory reaction due to other urinary catheter, initial encounter (principal); L89.324 Pressure ulcer of left buttock, stage 4; G82.50 Quadriplegia, unspecified; N17.9 Acute kidney failure, unspecified; N39.0 Urinary tract infection, site not specified; E87.1 Hypo-osmolality and hyponatremia; R74.8 Abnormal levels of other serum enzymes; K21.9 Gastro-esophageal reflux disease without esophagitis; D64.9 Anemia, unspecified; G40.909 Epilepsy, unspecified, not intractable, without status epilepticus; X58.XXXS Exposure to other specified factors, sequela; R21 Rash and other nonspecific skin eruption; Y84.6 Urinary catheterization as the cause of abnormal reaction of the patient, or of later complication, without mention of misadventure at the time of the procedure; B96.20 Unspecified Escherichia coli [E. coli] as the cause of diseases classified elsewhere; B96.89 Other specified bacterial agents as the cause of diseases classified elsewhere; E86.0 Dehydration; Z88.2 Allergy status to sulfonamides; T14.90XS Injury, unspecified, sequela; S14.105S Unspecified injury at C5 level of cervical spinal cord, sequela; Z87.442 Personal history of urinary calculi; Z86.14 Personal history of Methicillin resistant Staphylococcus aureus infection; Z87.440 Personal history of urinary (tract) infections; Z74.01 Bed confinement status; Z79.899 Other long term (current) drug therapy
CPT/HCPCS: 36415; 36569; 74177; 76705; 76770; 76937; 77001; 80053; 80074; 80076; 81001; 85025; 87040; 87077; 87086; 87186; 96361; 96365; 96366; 99284

== ENCOUNTER 2018-08-19 15:08 | Inpatient (IN) | payer MEDICARE, BC ==
[2018-08-19] MEDS ORDERED: PIPERACILLIN-TAZOBACTAM 3.375 GM in SODIUM CHLORIDE 0.9% 100 ML IVPB STA (15:38)
[2018-08-19] MEDS ORDERED: VANCOMYCIN IV PER PHARMACY 1 EACH MISC MISCELLANE PRN (15:38)
[2018-08-19] MEDS ORDERED: VANCOMYCIN 1,750 MG in SODIUM CHLORIDE 0.9% 500 ML 500 ML IVPB STA (15:47)
[2018-08-19 15:54] LABS: Basophils % (A) 0 %; Eosinophils # (A) 0.1 k/uL (0-0.7); Eosinophils % (A) 1 %; HCT 42.4 % (39.0-53.0); HGB 14.6 gm/dL (13.0-17.5); Lymphocytes # (A) 1.5 k/uL (1.0-4.8); Lymphocytes % (A) 15 %; MCH 28.8 pg (25.0-35.0); MCHC 34.4 g/dL (31.0-37.0); MCV 83.7 fL (80.0-100.0); Mean Platelet Volume 7.7; Monocytes # (A) 0.7 k/uL (0-1.0); Monocytes % (A) 7 %; Neutrophils # (A) 7.7 k/uL (1.3-7.7); Neutrophils % (A) 76 %; Platelet Count 187 k/uL (150-450); RBC 5.07 m/uL (4.30-5.90); RDW 15.1 % (11.5-15.5); WBC 10.1 k/uL (3.8-10.6)
[2018-08-19] MEDS: SODIUM CHLORIDE 0.9% 500 ML 500 ML IV SCH ×2 (15:54→16:41)
[2018-08-19 16:02] LABS: Partial Thromboplastin Time 30.3 sec (22.0-30.0)
[2018-08-19 16:06] LABS: Albumin 3.7 g/dL (3.5-5.0); Calcium 9.3 mg/dL (8.4-10.2); Potassium 3.6 mmol/L (3.5-5.1); Total Bilirubin 0.9 mg/dL (0.2-1.3); Total Protein 6.8 g/dL (6.3-8.2)
--- NOTE | 2018-08-19 16:37 | ED ---
General Adult HPI - General Chief complaint: Weakness Stated complaint: weakness Time Seen by Provider: 08/19/18 15:15 Source: patient, EMS, RN notes reviewed, old records reviewed Mode of arrival: EMS Limitations: physical limitation - History of Present Illness Initial comments: 52-year-old male, quadriplegic status post cervical spine injury in the . Patient is presenting with concern for urinary tract infection, generalized weakness. Patient is currently on doxycycline with history of MRSA infection in bilateral heels. He is currently being treated for UTI on Levaquin. Triage blood pressure is initially was in the 50 systolic. Patient states his blood pressure does run low however he is normally in the low 100s systolic. Denies measured fever. No history of vomiting or diarrhea. Patient states he has had multiple admissions with sepsis in the past. He felt that he might of been progressing over the past several days and has attempted to drink significant amount of fluid to prevent dehydration. He currently has a condom catheter. Previous sacral decubitus ulcer although he states that he has no decubitus ulcer at this time. No pain complaints time my evaluation. He did have a mild headache which is resolved. - Related Data Home Medications Medication Instructions Recorded Confirmed Doxycycline Hyclate 100 mg PO BID 08/19/18 08/19/18 Lansoprazole [Prevacid] 15 mg PO DAILY PRN 08/19/18 08/19/18 Levofloxacin [Levaquin] 500 mg PO DAILY 08/19/18 08/19/18 levETIRAcetam [Keppra Xr] 500 mg PO DAILY@1200 08/19/18 08/19/18 Allergies Allergy/AdvReac Type Severity Reaction Status Date / Time Sulfa (Sulfonamide Allergy Rash/Hives Verified 08/19/18 15:54 Antibiotics) Review of Systems ROS Statement: Those systems with pertinent positive or pertinent negative responses have been documented in the HPI. ROS Other: All systems not noted in ROS Statement are negative. 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 History of kidney stones. Freq. UTI's; Sepsis -,past decubs and current decub lt buttock. History of Any Multi-Drug Resistant Organisms: MRSA, Other MDRO Date of last positivie culture/infection: 09/24/17 MDRO Source:: FOOT MRSA Additional Past Surgical History / Comment(s): multiple surgeries/skin grafts f or pressure sores, right ureteroscopy with lithotripsy in 2005, external sphincetrotomy 1990 and 1994. Cystoscopy with irrigation of blood clots from bladder on 03/31/2017.Hx of Trach. & Peg tube/ since removed 04/27 Past Anesthesia/Blood Transfusion Reactions: No Reported Reaction Past Psychological History: No Psychological Hx Reported Smoking Status: Never smoker Past Alcohol Use History: None Reported Past Drug Use History: None Reported - Past Family History Mother Family Medical History: No Reported History Father Family Medical History: No Reported History General Exam Limitations: physical limitation General appearance: alert, in no apparent distress Head exam: Present: atraumatic, normocephalic Eye exam: Present: normal appearance, PERRL ENT exam: Present: normal exam, normal oropharynx Neck exam: Present: normal inspection. Absent: tenderness, meningismus Respiratory exam: Present: normal lung sounds bilaterally. Absent: respiratory distress Cardiovascular Exam: Present: regular rate, normal rhythm GI/Abdominal exam: Present: soft. Absent: distended, tenderness, guarding Rectal exam: Present: other (Stage I decubitus ulcer.) Extremities exam: Present: other (Erythema and mild skin breakdown bilateral heels) Neurological exam: Present: alert, oriented X3 Skin exam: Present: warm, dry, intact. Absent: cyanosis, diaphoretic Course Vital Signs 08/19/18 08/19/18 08/19/18 15:10 15:30 16:00 Temperature 98.4 F Pulse Rate 99 98 77 Respiratory 18 14 16 Rate Blood Pressure 73/30 78/66 93/58 O2 Sat by Pulse 100 97 94 L Oximetry EKG Findings - EKG Comments: EKG Findings:: EKG: Normal sinus rhythm T-wave inversion V2 V3, rightward access no ST segment elevation, rate of 84, OK interval 174, QRS duration 96, QTC 456. Similar T-wave inversion in EKG obtained on 08/09/2018. Medical Decision Making - Medical Decision Making Patient found to have normal white blood cell count, stable hemoglobin, hyponatremia sodium 129. Mild elevation in serum creatinine. Chest x-ray does show concern for left lower lobe pneumonia. Patient is started on Zosyn, azithromycin, vancomycin. Urine culture, blood culture are pending. Patient will be admitted for IV antibiotics, IV hydration. Case discussed with Dr. Sal, will admit - Lab Data Result diagrams: 08/19/18 15:22 08/19/18 15:22 Lab Results 08/19/18 08/19/18 08/19/18 Range/Units 15:22 15:22 15:22 WBC 10.1 (3.8-10.6) k/uL RBC 5.07 (4.30-5.90) m/uL Hgb 14.6 (13.0-17.5) gm/dL Hct 42.4 (39.0-53.0) % MCV 83.7 (80.0-100.0) fL MCH 28.8 (25.0-35.0) pg MCHC 34.4 (31.0-37.0) g/dL RDW 15.1 (11.5-15.5) % Plt Count 187 (150-450) k/uL Neutrophils % 76 % Lymphocytes % 15 % Monocytes % 7 % Eosinophils % 1 % Basophils % 0 % Neutrophils # 7.7 (1.3-7.7) k/uL Lymphocytes # 1.5 (1.0-4.8) k/uL Monocytes # 0.7 (0-1.0) k/uL Eosinophils # 0.1 (0-0.7) k/uL Basophils # 0.0 (0-0.2) k/uL PT (9.0-12.0) sec INR (<1.2) APTT (22.0-30.0) sec Sodium 129 L (137-145) mmol/L Potassium 3.6 (3.5-5.1) mmol/L Chloride 100 (98-107) mmol/L Carbon Dioxide 17 L (22-30) mmol/L Anion Gap 12 mmol/L BUN 38 H (9-20) mg/dL Creatinine 1.30 H (0.66-1.25) mg/dL Est GFR (CKD-EPI)AfAm 72 (>60 ml/min/1.73 sqM) Est GFR (CKD-EPI)NonAf 63 (>60 ml/min/1.73 sqM) Glucose 109 H (74-99) mg/dL Plasma Lactic Acid Aaron 1.2 (0.7-2.0) mmol/L Calcium 9.3 (8.4-10.2) mg/dL Total Bilirubin 0.9 (0.2-1.3) mg/dL AST 20 (17-59) U/L ALT 31 (21-72) U/L Alkaline Phosphatase 75 (38-126) U/L Total Protein 6.8 (6.3-8.2) g/dL Albumin 3.7 (3.5-5.0) g/dL 08/19/18 Range/Units 15:22 WBC (3.8-10.6) k/uL RBC (4.30-5.90) m/uL Hgb (13.0-17.5) gm/dL Hct (39.0-53.0) % MCV (80.0-100.0) fL MCH (25.0-35.0) pg MCHC (31.0-37.0) g/dL RDW (11.5-15.5) % Plt Count (150-450) k/uL Neutrophils % % Lymphocytes % % Monocytes % % Eosinophils % % Basophils % % Neutrophils # (1.3-7.7) k/uL Lymphocytes # (1.0-4.8) k/uL Monocytes # (0-1.0) k/uL Eosinophils # (0-0.7) k/uL Basophils # (0-0.2) k/uL PT 11.0 (9.0-12.0) sec INR 1.0 (<1.2) APTT 30.3 H (22.0-30.0) sec Sodium (137-145) mmol/L Potassium (3.5-5.1) mmol/L Chloride (98-107) mmol/L Carbon Dioxide (22-30) mmol/L Anion Gap mmol/L BUN (9-20) mg/dL Creatinine (0.66-1.25) mg/dL Est GFR (CKD-EPI)AfAm (>60 ml/min/1.73 sqM) Est GFR (CKD-EPI)NonAf (>60 ml/min/1.73 sqM) Glucose (74-99) mg/dL Plasma Lactic Acid Aaron (0.7-2.0) mmol/L Calcium (8.4-10.2) mg/dL Total Bilirubin (0.2-1.3) mg/dL AST (17-59) U/L ALT (21-72) U/L Alkaline Phosphatase (38-126) U/L Total Protein (6.3-8.2) g/dL Albumin (3.5-5.0) g/dL Critical Care Time Critical Care Time: Yes Total Critical Care Time: 35 Disposition Clinical Impression: UTI (urinary tract infection), Failure of outpatient treatment, Pneumonia Disposition: ADMITTED IP TO THIS [facility] Condition: Stable Is patient prescribed a controlled substance at d/c from ED?: No Referrals: Enoch Flores MD [Primary Care Provider] - 1-2 days Decision to Admit Reason: Admit from EC Decision Date: 08/19/18 Decision Time: 16:51
--- NOTE | 2018-08-19 16:37 | XR ---
EXAMINATION TYPE: XR chest 1V portable DATE OF EXAM: 08/19/2018 COMPARISON: August 09, 2017 HISTORY: Fever TECHNIQUE: Single frontal view of the chest is obtained. FINDINGS: There is some linear density behind the heart in the left lower lobe. The other lung field s are clear of consolidation. There is no heart failure. Thoracic aorta is atheromatous. Heart is pro bably enlarged. There are chest leads. IMPRESSION: There is probably new infiltrate or atelectasis in the left lower lobe compared to last exam. No heart failure seen.
[2018-08-19] MEDS ORDERED: SODIUM CHLORIDE 0.9% 1,000 ML IV ONE (16:47)
[2018-08-19] MEDS ORDERED: NALOXONE 0.4 MG/ML 1 ML VIAL IV PRN (16:48)
[2018-08-19] MEDS ORDERED: ACETAMINOPHEN TAB 325 MG TAB PO PRN (16:48)
[2018-08-19] MEDS ORDERED: AZITHROMYCIN 500 MG in SODIUM CHLORIDE 0.9% 250 ML IVPB STA (16:49)
[2018-08-19 16:58] LABS: Appearance,Urine Cloudy (Clear); Bacteria,Urine Many /hpf; Bilirubin,Urine Negative (Negative); Blood,Urine Small (Negative); Color,Urine Light Yellow; Glucose,Urine (UA) Negative (Negative); Ketones,Urine Negative (Negative); Leukocyte Esterase,Urine Large (Negative); Mucus,Urine Rare /hpf; Nitrite,Urine Negative (Negative); PH, Urine 5.5 (5.0-8.0); Protein,Urine Trace (Negative); RBC,Urine 62 /hpf (0-5); Specific Gravity,Urine 1.008 (1.001-1.035); Urobilinogen,Urine <2.0 mg/dL (<2.0); WBC,Urine >182 /hpf (0-5)
[2018-08-19] MEDS: SODIUM CHLORIDE 0.9% 1,000 ML IV SCH (17:26)
[2018-08-19] MEDS ORDERED: PANTOPRAZOLE 40 MG TABLET PO PRN (20:42)
--- NOTE | 2018-08-19 21:13 | P.HPIM ---
History of Present Illness H&P Date: 08/19/18 Chief Complaint: generalized weakness and ill feeling 52-year-old male with history of quadriplegia seizures and frequent urinary tract infection Patient was not feeling well a week ago when he noticed darker urine with bad odor and feeling ill he knows that he gets frequent urinary tract infections so he asked his visiting physician to perform a urine test and he was started on Levaquin at that time for UTI patient continued to not feel well for the past 4 days and decided to come to the hospital today when he was feeling very ill generalized weakness very tired he denies any fevers but was having chills. Patient uses a condom catheter he had some surgery done to the bladder sphincters and was able to piece of 4 and the condom catheter. Despite being quadriplegic. Other than that he is also on doxycycline for 2 week course for history of MRSA and healing pressure ulcers bilateral heels In the ED he was found to be in shock with low blood pressure in the 50s systolic no fevers no white count he was given a dose of Zosyn, azithromycin, and Vanco. Upon further evaluation of patient's most recent urine culture seems like he is resistant to Levaquin but sensitive to Rocephin which will be started. Chest x- ray showed possible infiltrates however patient denies any coughing chest pain shortness of breath fevers. He denies any recent aspiration. Patient also have healing decubitus ulcers over his coccyx. He was also found to have acute kidney injury with elevated creatinine and hyponatremia secondary to hypovolemia however his blood pressure has been responding to initial resuscitation with IV fluids. Lactic acid was within normal limits. EKG showed no changes from before. Upon evaluating the patient on the floor I performed bladder scan and showed retention of more than 900 mL of urine for which I initiated Mclaughlin catheter insertion and will get urology to evaluate the patient for further recommendations Review of Systems Pertinent positives as noted in HPI. 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 History of kidney stones. Freq. UTI's; Sepsis -,past decubs and current decub lt buttock. History of Any Multi-Drug Resistant Organisms: MRSA, Other MDRO Date of last positivie culture/infection: 09/24/17 MDRO Source:: FOOT MRSA Additional Past Surgical History / Comment(s): multiple surgeries/skin grafts for pressure sores, right ureteroscopy with lithotripsy in 2005, external sphincetrotomy 1990 and 1994. Cystoscopy with irrigation of blood clots from bladder on 03/31/2017.Hx of Trach. & Peg tube/ since removed 04/27 Past Anesthesia/Blood Transfusion Reactions: No Reported Reaction Past Psychological History: No Psychological Hx Reported Additional Psychological History / Comment(s): pt lives at home with his mom and brother who are his care givers and currently receiving visiting nurses every other day.pt quadrapelic, bedbound but with lift to w/c. unable to write or use standard call light- has condom cath in place. needs assist with eating Smoking Status: Never smoker Past Alcohol Use History: None Reported Past Drug Use History: None Reported - Past Family History Mother Family Medical History: No Reported History Father Family Medical History: No Reported History Medications and Allergies Home Medications Medication Instructions Recorded Confirmed Type Doxycycline Hyclate 100 mg PO BID 08/19/18 08/19/18 History Lansoprazole [Prevacid] 15 mg PO DAILY PRN 08/19/18 08/19/18 History Levofloxacin [Levaquin] 500 mg PO DAILY 08/19/18 08/19/18 History levETIRAcetam [Keppra Xr] 500 mg PO DAILY@1200 08/19/18 08/19/18 History Allergies Allergy/AdvReac Type Severity Reaction Status Date / Time Sulfa (Sulfonamide Allergy Rash/Hives Verified 08/19/18 15:54 Antibiotics) Physical Exam Vitals: Vital Signs Temp Pulse Pulse Resp BP BP Pulse Ox 08/19/18 20:00 98.0 F 63 18 96/61 99 08/19/18 18:59 70 18 102/68 96 08/19/18 18:30 66 14 85/56 97 08/19/18 18:00 64 14 81/53 95 08/19/18 17:30 67 13 79/49 95 08/19/18 17:00 75 10 L 77/49 94 L 08/19/18 16:30 72 20 93/58 91 L 08/19/18 16:00 77 16 93/58 94 L 08/19/18 15:30 98 14 78/66 97 08/19/18 15:10 98.4 F 99 18 73/30 100 Intake and Output 08/19/18 08/19/18 08/19/18 06:59 14:59 22:59 Other: Voiding Method Indwelling Catheter Weight 90.718 kg Constitutional: No acute distress, conversant, pleasant Eyes: Anicteric sclerae, moist conjunctiva, no lid-lag Pupils equal round reactive to light ENMT: NC/AT Oropharynx clear, no erythema, or exudates Neck: Supple, FROM, no masses, or JVD No carotid bruits No thyromegaly Lungs: Clear to auscultation Clear to percussion Normal respiratory effort, no accessory muscle use Cardiovascular: Heart regular in rate and rhythm, No murmurs, gallops, or rubs No peripheral edema Abdominal: Soft, mildly distended, increased tympanic note to percussion Nontender, no guarding, rebound or rigidity Abdomen moving with respiration Normoactive bowel sounds No hepatomegaly, No splenomegaly No palpable mass No abdominal wall hernia noted Condom cath in place Skin: Decubitus ulcer stage II over the coccyx, with healing older skin ulcer surrounding the buttocks area Rales looking area over bilateral heels due to pressure ulcers that are chronic Normal temperature, tone, texture, turgor No induration No subcutaneous nodules Extremities: No digital cyanosis No clubbing Pedal pulses weak and symmetrical Radial pulses intact and symmetrical No calf tenderness Psychiatric: Alert and oriented to person, place and time Appropriate affect fair judgment Neuro patient is quadriplegic and quadriparesis Cranial nerves II-12 is grossly intact Lymphatics: no palpable cervical or supraclavicular , or inguinal lymph nodes Results CBC & Chem 7: 08/19/18 15:22 08/19/18 15:22 Labs: Abnormal Lab Results - Last 24 Hours (Table) 08/19/18 08/19/18 08/19/18 Range/Units 15:22 15:22 16:30 APTT 30.3 H (22.0-30.0) sec Sodium 129 L (137-145) mmol/L Carbon Dioxide 17 L (22-30) mmol/L BUN 38 H (9-20) mg/dL Creatinine 1.30 H (0.66-1.25) mg/dL Glucose 109 H (74-99) mg/dL Urine Protein Trace H (Negative) Urine Blood Small H (Negative) Ur Leukocyte Esterase Large H (Negative) Urine RBC 62 H (0-5) /hpf Urine WBC >182 H (0-5) /hpf Urine WBC Clumps Many H (None) /hpf Urine Bacteria Many H (None) /hpf Urine Mucus Rare H (None) /hpf Thrombosis Risk Factor Assmnt - Choose All That Apply Any of the Below Risk Factors Present?: Yes Each Factor Represents 1 point: Age 41-60 years, Obesity (BMI >25), Swollen legs (current) Other Risk Factors: Yes Each Risk Factor Represents 2 Points: Patient confined to bed Thrombosis Risk Factor Assessment Total Risk Factor Score: 5 Thrombosis Risk Factor Assessment Level: High Risk Assessment and Plan Assessment: 52-year-old male with history of quadriplegia due to cervical spine injury, admitted as an inpatient with anticipated length of stay more than 48 hours due UTI failed outpatient therapy and acute kidney injury patient had cultures done as an outpatient which showed resistance to the current antibiotics that he's taking which should be switched during this admission we'll continue to monitor progression during this hospital course. Patient was also found to have urinary retention he's been on condom catheter spite being quadriplegic due to having some sphincter surgery in the past however he seems to be retaining urine and will require urology evaluation Plan: UTI, failed outpatient therapy , did not meet criteria for sepsis Hypovolemic shock, improving Failed outpatient therapy due to resistance Antibiotic will be adjusted to microbiology results Start patient on Rocephin DC other antibiotics Follow-up cultures Monitor vital signs IV fluid hydration Lactic acid unremarkable Acute kidney injury secondary to prerenal ATN secondary to above IV fluid hydration Avoid nephrotoxic meds Urinary retention Patient is quadriplegic however he is using condom catheter at home due to history of bladder sphincter surgery in the past insert Mclaughlin catheter Urology consultation hypovolemic Hyponatremia, asymptomatic secondary to dehydration IVF with normal saline and follow up levels Chronic conditions Quadriplegia and quadriparesis, with contractures 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, overall seems to be healing Chronic heel pressure ulcers, with history of MRSA, continue doxycycline from home to complete a two-week course last day on August 21 elevate heel off pressure wound care DVT prophylaxis heparin subcu 3 times a day Surrogate decision-maker: Patient mother and brother CODE STATUS: Full code Discussed with: Patient, ER, *RN Anticipated discharge: 48-[address]: Home with home care patient or the habits set up A total of 60 minutes was spent on the care of this complex patient more than 50% of the time was spent in counseling and care coordination. Sepsis - Sepsis Sepsis Focused Exam #1 Sepsis Focused Exam Date: 08/19/18 Sepsis Focused Exam Time: 20:05 Sepsis Focused Exam Complete: Yes Vital Signs & RN Notes Reviewed: Yes Capillary Refill: < 2 Seconds: Fingers, Toes Peripheral Pulses: Weak: Dorsalis Pedis (R), Dorsalis Pedis (L), Normal: Radial (R), Radial (L), Posterior Tibialis (R), Posterior Tibialis (L) Skin Color: Normal for Patient Respiratory Exam: normal lung sounds Cardiovascular Exam: regular rate, normal rhythm
[2018-08-19] MEDS: DOXYCYCLINE 100 MG CAP PO SCH (22:09)
[2018-08-19] MEDS: HEPARIN SODIUM,PORCINE 5,000 UNIT/ML 1 ML VIAL SQ SCH (23:36)
[2018-08-20] MEDS ORDERED: VANCOMYCIN 1,500 MG in SODIUM CHLORIDE 0.9% 250 ML IVPB SCH (06:00)
[2018-08-20 06:34] LABS: Basophils % (A) 0 %; Eosinophils # (A) 0.1 k/uL (0-0.7); Eosinophils % (A) 2 %; HGB 12.3 gm/dL (13.0-17.5); Lymphocytes # (A) 0.8 k/uL (1.0-4.8); Lymphocytes % (A) 15 %; MCHC 35.1 g/dL (31.0-37.0); MCV 85.4 fL (80.0-100.0); Mean Platelet Volume 7.8; Monocytes # (A) 0.4 k/uL (0-1.0); Monocytes % (A) 7 %; Neutrophils # (A) 4.2 k/uL (1.3-7.7); Neutrophils % (A) 74 %; Platelet Count 129 k/uL (150-450); RDW 14.5 % (11.5-15.5); WBC 5.7 k/uL (3.8-10.6)
[2018-08-20 06:46] LABS: ALT 27 U/L (21-72); AST 16 U/L (17-59); Albumin 2.8 g/dL (3.5-5.0); Alkaline Phosphatase 56 U/L (38-126); Anion Gap 8 mmol/L; Blood Urea Nitrogen 27 mg/dL (9-20); Carbon Dioxide 18 mmol/L (22-30); Chloride 109 mmol/L (98-107); Glucose 84 mg/dL (74-99); Magnesium 1.5 mg/dL (1.6-2.3); Potassium 3.6 mmol/L (3.5-5.1); Sodium 135 mmol/L (137-145); Total Bilirubin 0.8 mg/dL (0.2-1.3); Total Protein 5.6 g/dL (6.3-8.2)
--- NOTE | 2018-08-20 07:48 | P.GSCN ---
History of Present Illness Consult date: 08/20/18 History of present illness: The patient is a 52-year-old quadriplegic for many years who was admitted to the hospital pneumonia and urinary tract infection with sepsis. The patient is well known to our office for a neurogenic bladder and has been evaluated and treated by Dr. Oliver multiple times in the past. The patient had an external sphincterotomy 2 in the . His bladder drains into a condom catheter. The patient was most recently in the hospital March with urinary tract infection with sepsis. He had a computed tomography scan at that point in time identifying pole stones in the right kidney and a small volume in the left kidney. The patient states he normally has not had problems with his bladder but over the last several days he notices the pressure in his bladder was increased and he started having symptoms of autonomic dysreflexia. The patient had a catheter placed in this hospitalization apparently there is over 900 mL urine in the bladder. He is awake alert and oriented at this point in time. He was recently treated for a possible infection and placed on Levaquin although the Levaquin was not effective to the bacteria identified. Review of Systems All systems: negative - Integumentary Integumentary Comment(s): Pressure sores requiring treatment. 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 History of kidney stones. Freq. UTI's; Sepsis -,past decubs and current decub lt buttock. History of Any Multi-Drug Resistant Organisms: MRSA, Other MDRO Year Discovered:: 09/24/17 MDRO Source:: FOOT MRSA Additional Past Surgical History / Comment(s): multiple surgeries/skin grafts for pressure sores, right ureteroscopy with lithotripsy in 2005, external sphincetrotomy 1990 and 1994. Cystoscopy with irrigation of blood clots from bladder on 03/31/2017.Hx of Trach. & Peg tube/ since removed 04/27 Past Anesthesia/Blood Transfusion Reactions: No Reported Reaction Past Psychological History: No Psychological Hx Reported Additional Psychological History / Comment(s): pt lives at home with his mom and brother who are his care givers and currently receiving visiting nurses every other day.pt quadrapelic, bedbound but with lift to w/c. unable to write or use standard call light- has condom cath in place. needs assist with eating Smoking Status: Never smoker Past Alcohol Use History: None Reported Past Drug Use History: None Reported - Past Family History Mother Family Medical History: No Reported History Father Family Medical History: No Reported History Medications and Allergies Home Medications Medication Instructions Recorded Confirmed Type Doxycycline Hyclate 100 mg PO BID 08/19/18 08/19/18 History Lansoprazole [Prevacid] 15 mg PO DAILY PRN 08/19/18 08/19/18 History Levofloxacin [Levaquin] 500 mg PO DAILY 08/19/18 08/19/18 History levETIRAcetam [Keppra Xr] 500 mg PO DAILY@1200 08/19/18 08/19/18 History Allergies Allergy/AdvReac Type Severity Reaction Status Date / Time Sulfa (Sulfonamide Allergy Rash/Hives Verified 08/19/18 15:54 Antibiotics) Surgical - Exam Vital Signs Temp Pulse Resp BP Pulse Ox 98.4 F 99 18 73/30 100 08/19/18 15:10 08/19/18 15:10 08/19/18 15:10 08/19/18 15:10 08/19/18 15:10 - General well developed, well nourished, no distress - Eyes PERRL - ENT no hearing loss - Neck trachea midline - Respiratory normal expansion, normal respiratory effort - Cardiovascular Rhythm: regular - Abdomen Abdomen: soft, non tender - Genitourinary Indwelling catheter with cloudy urine. Partially circumcised phallus with chronic irritation due to the extra indwelling catheter that he normally wears. Testes descended. Rectal deferred. - Musculoskeletal Quadriplegic, bedsores - Psychiatric oriented to time, oriented to place Results - Labs 08/20/18 05:37 08/20/18 05:37 Abnormal Lab Results - Last 24 Hours (Table) 08/19/18 08/19/18 08/19/18 Range/Units 15:22 15:22 16:30 RBC (4.30-5.90) m/uL Hgb (13.0-17.5) gm/dL Hct (39.0-53.0) % Plt Count (150-450) k/uL Lymphocytes # (1.0-4.8) k/uL APTT 30.3 H (22.0-30.0) sec Sodium 129 L (137-145) mmol/L Chloride (98-107) mmol/L Carbon Dioxide 17 L (22-30) mmol/L BUN 38 H (9-20) mg/dL Creatinine 1.30 H (0.66-1.25) mg/dL Glucose 109 H (74-99) mg/dL Calcium (8.4-10.2) mg/dL Magnesium (1.6-2.3) mg/dL AST (17-59) U/L Total Protein (6.3-8.2) g/dL Albumin (3.5-5.0) g/dL Urine Protein Trace H (Negative) Urine Blood Small H (Negative) Ur Leukocyte Esterase Large H (Negative) Urine RBC 62 H (0-5) /hpf Urine WBC >182 H (0-5) /hpf Urine WBC Clumps Many H (None) /hpf Urine Bacteria Many H (None) /hpf Urine Mucus Rare H (None) /hpf 08/20/18 08/20/18 Range/Units 05:37 05:37 RBC 4.10 L (4.30-5.90) m/uL Hgb 12.3 L (13.0-17.5) gm/dL Hct 35.0 L (39.0-53.0) % Plt Count 129 L (150-450) k/uL Lymphocytes # 0.8 L (1.0-4.8) k/uL APTT (22.0-30.0) sec Sodium 135 L (137-145) mmol/L Chloride 109 H (98-107) mmol/L Carbon Dioxide 18 L (22-30) mmol/L BUN 27 H (9-20) mg/dL Creatinine (0.66-1.25) mg/dL Glucose (74-99) mg/dL Calcium 8.0 L (8.4-10.2) mg/dL Magnesium 1.5 L (1.6-2.3) mg/dL AST 16 L (17-59) U/L Total Protein 5.6 L (6.3-8.2) g/dL Albumin 2.8 L (3.5-5.0) g/dL Urine Protein (Negative) Urine Blood (Negative) Ur Leukocyte Esterase (Negative) Urine RBC (0-5) /hpf Urine WBC (0-5) /hpf Urine WBC Clumps (None) /hpf Urine Bacteria (None) /hpf Urine Mucus (None) /hpf Microbiology - Last 24 Hours (Table) 08/19/18 16:30 Urine Culture - Preliminary Urine,Voided Diabetes panel 08/19/18 08/20/18 Range/Units 15:22 05:37 Sodium 129 L 135 L (137-145) mmol/L Potassium 3.6 3.6 (3.5-5.1) mmol/L Chloride 100 109 H (98-107) mmol/L Carbon Dioxide 17 L 18 L (22-30) mmol/L BUN 38 H 27 H (9-20) mg/dL Creatinine 1.30 H 0.99 (0.66-1.25) mg/dL Glucose 109 H 84 (74-99) mg/dL Calcium 9.3 8.0 L (8.4-10.2) mg/dL AST 20 16 L (17-59) U/L ALT 31 27 (21-72) U/L Alkaline Phosphatase 75 56 (38-126) U/L Total Protein 6.8 5.6 L (6.3-8.2) g/dL Albumin 3.7 2.8 L (3.5-5.0) g/dL Calcium panel 08/19/18 08/20/18 Range/Units 15:22 05:37 Calcium 9.3 8.0 L (8.4-10.2) mg/dL Albumin 3.7 2.8 L (3.5-5.0) g/dL Pituitary panel 08/19/18 08/20/18 Range/Units 15:22 05:37 Sodium 129 L 135 L (137-145) mmol/L Potassium 3.6 3.6 (3.5-5.1) mmol/L Chloride 100 109 H (98-107) mmol/L Carbon Dioxide 17 L 18 L (22-30) mmol/L BUN 38 H 27 H (9-20) mg/dL Creatinine 1.30 H 0.99 (0.66-1.25) mg/dL Glucose 109 H 84 (74-99) mg/dL Calcium 9.3 8.0 L (8.4-10.2) mg/dL Adrenal panel 08/19/18 08/20/18 Range/Units 15:22 05:37 Sodium 129 L 135 L (137-145) mmol/L Potassium 3.6 3.6 (3.5-5.1) mmol/L Chloride 100 109 H (98-107) mmol/L Carbon Dioxide 17 L 18 L (22-30) mmol/L BUN 38 H 27 H (9-20) mg/dL Creatinine 1.30 H 0.99 (0.66-1.25) mg/dL Glucose 109 H 84 (74-99) mg/dL Calcium 9.3 8.0 L (8.4-10.2) mg/dL Total Bilirubin 0.9 0.8 (0.2-1.3) mg/dL AST 20 16 L (17-59) U/L ALT 31 27 (21-72) U/L Alkaline Phosphatase 75 56 (38-126) U/L Total Protein 6.8 5.6 L (6.3-8.2) g/dL Albumin 3.7 2.8 L (3.5-5.0) g/dL - Imaging CT scan - abdomen: report reviewed, image reviewed CT scan - pelvis: report reviewed, image reviewed Assessment and Plan Assessment: Impression: Urinary tract infection with sepsis. Urine retention. Neurogenic bladder. Quadriplegia. Status post external sphincterotomy. Recommendations: I will notify of his admission. The urine retention will have to be addressed in the form of reassess in the external sphincter. The kidney stones will have to be reassessed down the road.
[2018-08-20] MEDS: HEPARIN SODIUM,PORCINE 5,000 UNIT/ML 1 ML VIAL SQ SCH ×3 (09:44→23:09)
[2018-08-20] MEDS: DOXYCYCLINE 100 MG CAP PO SCH ×2 (09:45→20:11)
[2018-08-20] MEDS: levETIRAcetam 250 MG TAB PO SCH ×2 (09:46→20:11)
[2018-08-20] MEDS: SODIUM CHLORIDE 0.9% 1,000 ML IV SCH ×3 (12:12→20:11)
--- NOTE | 2018-08-20 13:04 | P.PN ---
Subjective Progress Note Date: 08/20/18 Principal diagnosis: UTI Patient was seen and examined. No acute events overnight. Patient reports significant improvement in symptoms since admission. He denies any chest pain, shortness of breath or palpitations. No nausea or vomiting. No fever or chill chills. Tolerating diet well. Objective - Vital Signs Vital signs: Vital Signs Temp 97.6 F 08/20/18 03:50 Pulse 76 08/20/18 03:50 Resp 16 08/20/18 03:50 BP 118/66 08/20/18 03:50 Pulse Ox 99 08/20/18 03:50 Intake & Output 08/19/18 08/20/18 08/20/18 18:59 06:59 18:59 Output Total 1650 Balance -1650 Weight 90.718 kg 89.5 kg Output: Urine 1650 Uretheral (Mclaughlin) 950 Other: Voiding Method Indwelling Catheter # Voids 0 # Bowel Movements 0 - Exam General: [non toxic], [no distress], [appears at stated age] Derm: [warm], [dry] Head: [atraumatic], [normocephalic], [symmetric] Eyes: [EOMI], [no lid lag], [anicteric sclera] Mouth: [no lip lesion], [mucus membranes moist] Cardiovascular: [S1S2 reg], [no murmur], [positive posterior tibial pulse bilateral] Lungs: [CTA bilateral], [no rhonchi, no rales] , [no accessory muscle use] Abdominal: [soft], [mildly distended but obese], [no guarding], [no appreciable organomegaly] Ext: [no gross muscle atrophy], [no edema], [stage II decubitus ulcer] Neuro: [patient is quadriplegic] Psych: [Alert], [oriented], [appropriate affect] - Labs CBC & Chem 7: 08/20/18 05:37 08/20/18 05:37 Labs: Abnormal Lab Results - Last 24 Hours (Table) 08/19/18 08/19/18 08/19/18 Range/Units 15:22 15:22 16:30 RBC (4.30-5.90) m/uL Hgb (13.0-17.5) gm/dL Hct (39.0-53.0) % Plt Count (150-450) k/uL Lymphocytes # (1.0-4.8) k/uL APTT 30.3 H (22.0-30.0) sec Sodium 129 L (137-145) mmol/L Chloride (98-107) mmol/L Carbon Dioxide 17 L (22-30) mmol/L BUN 38 H (9-20) mg/dL Creatinine 1.30 H (0.66-1.25) mg/dL Glucose 109 H (74-99) mg/dL Calcium (8.4-10.2) mg/dL Magnesium (1.6-2.3) mg/dL AST (17-59) U/L Total Protein (6.3-8.2) g/dL Albumin (3.5-5.0) g/dL Urine Protein Trace H (Negative) Urine Blood Small H (Negative) Ur Leukocyte Esterase Large H (Negative) Urine RBC 62 H (0-5) /hpf Urine WBC >182 H (0-5) /hpf Urine WBC Clumps Many H (None) /hpf Urine Bacteria Many H (None) /hpf Urine Mucus Rare H (None) /hpf 08/20/18 08/20/18 Range/Units 05:37 05:37 RBC 4.10 L (4.30-5.90) m/uL Hgb 12.3 L (13.0-17.5) gm/dL Hct 35.0 L (39.0-53.0) % Plt Count 129 L (150-450) k/uL Lymphocytes # 0.8 L (1.0-4.8) k/uL APTT (22.0-30.0) sec Sodium 135 L (137-145) mmol/L Chloride 109 H (98-107) mmol/L Carbon Dioxide 18 L (22-30) mmol/L BUN 27 H (9-20) mg/dL Creatinine (0.66-1.25) mg/dL Glucose (74-99) mg/dL Calcium 8.0 L (8.4-10.2) mg/dL Magnesium 1.5 L (1.6-2.3) mg/dL AST 16 L (17-59) U/L Total Protein 5.6 L (6.3-8.2) g/dL Albumin 2.8 L (3.5-5.0) g/dL Urine Protein (Negative) Urine Blood (Negative) Ur Leukocyte Esterase (Negative) Urine RBC (0-5) /hpf Urine WBC (0-5) /hpf Urine WBC Clumps (None) /hpf Urine Bacteria (None) /hpf Urine Mucus (None) /hpf Microbiology - Last 24 Hours (Table) 08/19/18 16:30 Urine Culture - Preliminary Urine,Voided Assessment and Plan Assessment: Assessment and Plan 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, chronic heel pressure ulcers UA shows large leukocyte esterase. Did not meet criteria for sepsis. Plan: Continue ceftriaxone. Follow urine culture. Follow blood culture. Tylenol as needed for fever. Follow urology consultation. BP 118/66, responding to IV fluids. Lactic acid within normal limits. Plan: Continue normal saline at 130 mL/h. Monitor vital signs. Creatinine 1.30-0.99. Resolved. Plan: Continue IVF. Daily BMP. Sees Dr. Oliver in the outpatient setting for neurogenic bladder. History of external sphincterotomy. Bladder scan showing retention of 900 mL of urine. Plan: Mclaughlin catheter. Follow Urology consultation. Strict intake and outtake. Sodium 129-135. Likely hypovolemic as it improved with IVF. Plan: Continue IVF. Daily BMP. Stable. Plan: Continue Keppra. Seizure precautions. Plan: Fall precautions. Wound care. Continue doxycycline by mouth for history of MRSA infection, antibiotics until August 21. Patient admitted for urinary tract infection, failed outpatient treatment, complicated with neurogenic bladder. Urology is consulted. Patient is pending clinical improvement. Likely DC in 1-2 days.
[2018-08-21] MEDS: SODIUM CHLORIDE 0.9% 1,000 ML IV SCH ×2 (06:30→13:30)
[2018-08-21 08:45] VITALS: BP 114/75; PULSE 72; RESP 16; TEMP 97.5
[2018-08-21] MEDS: levETIRAcetam 250 MG TAB PO SCH (08:49)
[2018-08-21] MEDS: HEPARIN SODIUM,PORCINE 5,000 UNIT/ML 1 ML VIAL SQ SCH ×2 (08:49→16:45)
[2018-08-21] MEDS: DOXYCYCLINE 100 MG CAP PO SCH (08:50)
--- NOTE | 2018-08-21 10:33 | P.PN ---
Subjective Progress Note Date: 08/21/18 Principal diagnosis: UTI Patient was seen and examined. No acute events overnight. Patient reports great improvement in his symptoms from admission. He has no complaints this m orning. He denies any nausea or vomiting. No fever or chills. He denies any chest pain, shortness of breath or palpitations. Objective - Vital Signs Vital signs: Vital Signs Temp 97.5 F L 08/21/18 08:20 Pulse 72 08/21/18 08:20 Resp 16 08/21/18 08:20 BP 114/75 08/21/18 08:20 Pulse Ox 98 08/21/18 08:20 Intake & Output 08/20/18 08/21/18 08/21/18 18:59 06:59 18:59 Intake Total 2020 100 Output Total 1000 1400 850 Balance 1020 -1400 -750 Intake: Intake, IV Titration 1300 Amount Sodium Chloride 0.9% 1, 1300 000 ml @ 130 mls/hr IV . [id number] [facility] Rx#:[id number] Oral 720 100 Output: Urine 1000 1400 850 Other: Voiding Method Indwelling Catheter Indwelling Catheter # Bowel Movements 0 - Exam General: [non toxic], [no distress], [appears at stated age] Derm: [warm], [dry] Head: [atraumatic], [normocephalic], [symmetric] Eyes: [EOMI], [no lid lag], [anicteric sclera] Mouth: [no lip lesion], [mucus membranes moist] Cardiovascular: [S1S2 reg], [no murmur], [positive posterior tibial pulse bilateral] Lungs: [CTA bilateral], [no rhonchi, no rales] , [no accessory muscle use] Abdominal: [soft], [mildly distended but obese], [no guarding], [no appreciable organomegaly] Ext: [no gross muscle atrophy], [no edema], [stage II decubitus ulcer] Neuro: [patient is quadriplegic] Psych: [Alert], [oriented], [appropriate affect] - Labs CBC & Chem 7: 08/20/18 05:37 08/20/18 05:37 Labs: Microbiology - Last 24 Hours (Table) 08/19/18 16:30 Urine Culture - Preliminary Urine,Voided Gram Neg Bacilli 08/19/18 15:22 Blood Culture - Preliminary Blood No Growth after 24 hours Assessment and Plan Assessment: Assessment and Plan 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, chronic heel pressure ulcers UA shows large leukocyte esterase. Did not meet criteria for sepsis. Urine culture gram-negative bacilli. Blood culture prelim negative at 24 hours. Plan: Continue ceftriaxone. Follow urine culture. Follow blood culture. Tylenol as needed for fever. Follow urology consultation. BP 114/75, responding to IV fluids. Lactic acid within normal limits. Plan: Continue normal saline at 130 mL/h. Monitor vital signs. Creatinine 1.30-0.99. Resolved. Plan: Continue IVF. Daily BMP. Sees Dr. Oliver in the outpatient setting for neurogenic bladder. History of external sphincterotomy. Bladder scan showing retention of 900 mL of urine. P keisha: Mclaughlin catheter. Follow Urology consultation. Strict intake and outtake. Sodium 129-135. Likely hypovolemic as it improved with IVF. Plan: Continue IVF. Daily BMP. Stable. Plan: Continue Keppra. Seizure precautions. Plan: Fall precautions. Wound care. Continue doxycycline by mouth for history of MRSA infection, antibiotics until August 21. Patient admitted for urinary tract infection, failed outpatient treatment, complicated with neurogenic bladder. Urine cultures pending. Patient is to be seen by Dr. Oliver. Plans on DC tomorrow.
--- NOTE | 2018-08-21 10:37 | CDI ---
Documentation Clarification Form Date: 08/21/2018 10:29:34 AM From: Linnea SortoANNMARIE, CCDS Admit Date: 08/19/2018 4:48:00 PM Patient Name: Og Grant Visit Number: [id number] Discharge Date: ATTENTION: The Clinical Documentation Specialists (CDI) and [facility] Coding Staff appreciate your assistance in clarifying documentation. Please respond to the clarification below the line at the bottom and electronically sign. The CDI & [facility] Coding staff will review the response and follow-up if needed. Please note: Queries are made part of the Legal Health Record. If you have any questions, please contact the author of this message via ITS. Dr. Aravind Young: Patient presented with a UTI. Per the documentation, the patient is quadriplegic with neurogenic bladder & uses a condom catheter. Diagnosed with a UTI & hypovolemic shock, no sepsis criteria. History/Risk Factors: Quadriplegic due to hockey accident, neurogenic bladder & frequent UTIs including hospitalizations for Sepsis with MRSA. Clinical Indicators: Presented with generalized weakness & ill feeling, failed outpatient treatment for a UTI. Urinalysis: cloudy, trace protein, small blood, large esterase, RBC 62, WBC >182. Urine culture: Preliminary gram neg bacilli Lab results: Na 129*, CO2 17*, BUN 38^, Creatinine 1.30^, Glucose 109^. Treatment: IV Zosyn, IV fluid rate 1000, IV Vancomycin, IV fluid bolus, IV Narcan, IV Azithromycin, Mclaughlin catheter inserted. In your professional opinion, can you please clarify the etiology of the UTI, if known? UTI related to use of condom catheter UTI not related to use of condom catheter Other condition, please specify Unable to determine If an infective organism is present, please specify cause and effect relationship if applicable. (Last Revision: July 2017) Not related to condom catheter, related to neurogenic bladder MTDD
--- NOTE | 2018-08-21 10:47 | CDI ---
Documentation Clarification Form Date: 08/21/2018 10:39:16 AM From: Linnea BearSortoANNMARIE, CCDS Admit Date: 08/19/2018 4:48:00 PM Patient Name: Og Grant Visit Number: [id number] Discharge Date: ATTENTION: The Clinical Documentation Specialists (CDI) and [facility] Coding Staff appreciate your assistance in clarifying documentation. Please respond to the clarification below the line at the bottom and electronically sign. The CDI & [facility] Coding staff will review the response and follow-up if needed. Please note: Queries are made part of the Legal Health Record. If you have any questions, please contact the author of this message via ITS. Dr. Aravind Young: Per the ED notes, the History & Physical and also the Urology Consult, the patient has been a quadriplegic for many years due to a hockey-related injury to C5 through C6 in 1984. Per the H/P: patient is unable to write or use standard call light, needs assistance eating. History/Risk Factors: Previous UTIS w/Sepsis & MRSA, uses condom cathether due to neurogenic bladder, External sphincterotomy, multiple pressure & decubitus ulcers. Clinical Indicators: Presented with generalized weakness & ill feeling. Diagnosed with a UTI, no sepsis criteria. Treatment: IV Zosyn, IV fluids, IV Vancomycin, IV fluid bolus, IV Narcan, IV Azithromycin In order to capture the severity of condition, please render your opinion on the clinical significance, if any, above the above clinical indicators and treatment: Functional Quadriplegia Complete Quadriplegia Incomplete Quadriplegia Other Quadriplegia Other (please specify) Unable to determine (Last Revision: January 2018-New) Complete quadriplegia MTDD
--- NOTE | 2018-08-21 12:37 | P.PN ---
Progress Note - Text Progress Note Date: 08/21/18 The patient is afebrile and has been afebrile since he was admitted. His main complaint is that his hospital bed is not as comfortable as his bed at home. White blood count is improved at 5700. BUN/creatinine are improved at 27/0.99. The patient continues to have a metabolic acidosis with a bicarb of 18. Urine culture at the time of admission is pending but a urine culture on 08/14/2018 grew E. coli and Providencia stuartii. These are the same organisms that were grown from his urine in 03/2018 when the patient was hospitalized with sepsis. It is likely that his renal calculi have become chronically infected. I discussed percutaneous nephrostolithotomy as the best treatment option for removal of his renal calculi. Due to the patient's increased anesthetic risk both Dr. Stewart and I feel this would be best done at a tertiary center. I will make arrangements for the patient be seen by Dr. Vera at [facility]. The patient is not emptying his bladder completely and should be discharged with a Mclaughlin catheter. He will probably require repeat sphincterotomy but this may be able to be performed at the same time as removal of the renal calculi.
[2018-08-21] MEDS ORDERED: SULFAMETHOX-TMP 800-160MG 1 EACH TAB PO STA (13:23)
--- NOTE | 2018-08-21 15:57 | P.DS ---
Providers Date of admission: 08/19/18 16:48 Expected date of discharge: 08/21/18 Attending physician: Edwina Sal DO Consults: 08/19/18 20:43 Consult Physician Routine Consulting Provider: Kenton Oliver Consult Reason/Comments: urinary retention, quadriplegia on condome cath at home Do you want consulting provider notified?: Yes Primary care physician: [facility] Course: 2-year-old male with history of quadriplegia seizures and frequent urinary tract infection Patient was not feeling well a week ago when he noticed darker urine with bad odor and feeling ill he knows that he gets frequent urinary tract infections so he asked his visiting physician to perform a urine test and he was started on Levaquin at that time for UTI patient continued to not feel well for the past 4 days and decided to come to the hospital today when he was feeling very ill generalized weakness very tired he denies any fevers but was having chills. Patient uses a condom catheter he had some surgery done to the bladder sphincters and was able to piece of 4 and the condom catheter. Despite being quadriplegic. Other than that he is also on doxycycline for 2 week course for history of MRSA and healing pressure ulcers bilateral heels In the ED he was found to be in shock with low blood pressure in the 50s systolic no fevers no white count he was given a dose of Zosyn, azithromycin, and Vanco. Upon further evaluation of patient's most recent urine culture seems like he is resistant to Levaquin but sensitive to Rocephin which will be started. Chest x- ray showed possible infiltrates however patient denies any coughing chest pain shortness of breath fevers. He denies any recent aspiration. Patient also have healing decubitus ulcers over his coccyx. He was also found to have acute kidney injury with elevated creatinine and hyponatremia secondary to hypovolemia however his blood pressure has been responding to initial resuscitation with IV fluids. Lactic acid was within normal limits. EKG showed no changes from before. Upon evaluating the patient on the floor I performed bladder scan and showed retention of more than 900 mL of urine for which I initiated Mclaughlin catheter insertion and will get urology to evaluate the patient for further recommendations With regard to his urinary tract infection, urinalysis showed large leukocyte esterase. Patient did not meet criteria for sepsis. Urine culture grew out gram-negative bacilli. Blood cultures were prelim negative at 24 hours. Patient was initially on ceftriaxone which was transitioned to Bactrim by mouth on discharge. Urine cultures were not back at the time of discharge. However, there were urine cultures that were collected on 08/14/2018 which was sensitive to Bactrim. Patient was noted to have a sulfa ALLERGY and was given Bactrim in house 2 hours prior to discharge. With regard to his urinary retention, urology was consulted. Urology recommended Mclaughlin catheter. Urology cleared the patient for discharge with outpatient follow-up. Patient was noted to have an acute kidney injury that resolved at the time of discharge. Patient was noted to be hyponatremic with a sodium of 129 on admission. This was thought to be secondary to hypovolemia. His sodium was 135 on discharge. This discharge took greater than 30 minutes. 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, chronic heel pressure ulcers Patient Condition at Discharge: Stable Plan - Discharge Summary Discharge Rx Participant: No New Discharge Prescriptions: New Sulfamethox-Tmp 800-160Mg [Bactrim DS 800-160 mg] 1 tab PO Q12HR #19 tab Continue Lansoprazole [Prevacid] 15 mg PO DAILY PRN PRN Reason: Heartburn Doxycycline Hyclate 100 mg PO BID levETIRAcetam [Keppra Xr] 500 mg PO DAILY@1200 Discontinued Levofloxacin [Levaquin] 500 mg PO DAILY Discharge Medication List Doxycycline Hyclate 100 mg PO BID 08/19/18 [History] Lansoprazole [Prevacid] 15 mg PO DAILY PRN 08/19/18 [History] levETIRAcetam [Keppra Xr] 500 mg PO DAILY@1200 08/19/18 [History] Sulfamethox-Tmp 800-160Mg [Bactrim DS 800-160 mg] 1 tab PO Q12HR #19 tab 08/21/18 [Rx] Follow up Appointment(s)/Referral(s): Kenton Oliver MD [Family Provider] - 1 Week (Urologist) Enoch Flores MD [Primary Care Provider] - 1-2 days Toni Vera MD [REFERRING] - (Urologist.) Patient Instructions/Handouts: Urinary Tract Infection in Men (DC), Mclaughlin Catheter Placement and Care (DC), Pneumonia (DC) Activity/Diet/Wound Care/Special Instructions: Diet: Heart healthy Follow-up with PCP within 1-2 days of discharge. Follow-up with urology with the appointment given to you. Please come back to the ED or call 911 for negative reaction towards Bactrim. Please note that Bactrim is a sulfa medication. Warning symptoms would include difficulty breathing, swelling of the lip or tongue, dizziness or syncope, chest pain or palpitations. Discharge Disposition: HOME SELF-CARE
== END 2018-08-21 19:45 | disposition home or self-care (01) | DRG 689 ==
LOC: EC 15:08 → 3SCARD 16:48
PROVIDERS: ADMIT Internal Medicine; ATTEND Internal Medicine
DX: N39.0 Urinary tract infection, site not specified (principal); J18.9 Pneumonia, unspecified organism; N17.0 Acute kidney failure with tubular necrosis; R57.1 Hypovolemic shock; G82.53 Quadriplegia, C5-C7 complete; E87.1 Hypo-osmolality and hyponatremia; E87.2 Acidosis; G40.909 Epilepsy, unspecified, not intractable, without status epilepticus; K21.9 Gastro-esophageal reflux disease without esophagitis; L89.152 Pressure ulcer of sacral region, stage 2; B96.89 Other specified bacterial agents as the cause of diseases classified elsewhere; L89.629 Pressure ulcer of left heel, unspecified stage; L89.619 Pressure ulcer of right heel, unspecified stage; N20.0 Calculus of kidney; N31.9 Neuromuscular dysfunction of bladder, unspecified; Z86.14 Personal history of Methicillin resistant Staphylococcus aureus infection; Z87.440 Personal history of urinary (tract) infections; Z74.01 Bed confinement status; Z87.442 Personal history of urinary calculi; Z88.2 Allergy status to sulfonamides
CPT/HCPCS: 36415; 71045; 80053; 81001; 83605; 83735; 85025; 85610; 85730; 87040; 87077; 87086; 87186; 93005; 96365; 96366; 96368; 99291

== ENCOUNTER 2018-08-24 04:25 | Emergency (ER) | payer MEDICARE, BC ==
--- NOTE | 2018-08-24 05:20 | ED ---
General Adult HPI - General Source: patient, family Mode of arrival: ambulatory - History of Present Illness -: days(s) Improves with: none Worsens with: none Associated Symptoms: loss of appetite, malaise Treatments Prior to Arrival: none <Julio C Ramirez - Last Filed: 08/24/18 05:16> <Kike Zuñiga - Last Filed: 08/24/18 08:39> - General Chief complaint: Urogenital Stated complaint: weakness Time Seen by Provider: 08/24/18 04:33 - History of Present Illness Initial comments: This patient is a 52-year-old man with history of quadriplegia. Patient states that he had been admitted in the hospital recently with 3 day course for urinary tract infection. Patient was discharged yesterday. The patient states that since that time he has been having malaise and not feeling well. He states it is very difficult for him to exactly characterize what is wrong. Patient states that he feels hot and cold but he is not having a detectable fever. He states that he has some diffuse discomfort but nothing focal. Review of systems is otherwise unremarkable. The patient has not had dyspnea, cough or chest discomfort. No change in bowel movements. (Julio C Ramirez) - Related Data Home Medications Medication Instructions Recorded Confirmed Lansoprazole [Prevacid] 15 mg PO DAILY PRN 08/19/18 08/24/18 levETIRAcetam [Keppra Xr] 500 mg PO DAILY@1200 08/19/18 08/24/18 Sulfamethoxazole/Trimethoprim 1 tab PO BID 08/24/18 08/24/18 [Bactrim DS 800-160 mg] Allergies Allergy/AdvReac Type Severity Reaction Status Date / Time Sulfa (Sulfonamide Allergy Rash/Hives Verified 08/24/18 07:18 Antibiotics) Review of Systems ROS Other: All systems not noted in ROS Statement are negative. Constitutional: Reports: fever (Subjective) ENT: Denies: congestion Respiratory: Denies: cough, dyspnea Cardiovascular: Denies: chest pain, palpitations, syncope Gastrointestinal: Denies: abdominal pain, nausea, vomiting, diarrhea, constipation, melena, hematochezia Skin: Denies: rash Neurological: Denies: headache, weakness <Julio C Ramirez - Last Filed: 08/24/18 05:16> ROS Other: All systems not noted in ROS Statement are negative. <Kike Zuñiga - Last Filed: 08/24/18 08:39> ROS Statement: Those systems with pertinent positive or pertinent negative responses have been documented in the HPI. 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 History of kidney stones. Freq. UTI's; Sepsis -,past decubs and current decub lt buttock. History of Any Multi-Drug Resistant Organisms: MRSA, Other MDRO Date of last positivie culture/infection: 09/24/17 MDRO Source:: FOOT MRSA Additional Past Surgical History / Comment(s): multiple surgeries/skin grafts for pressure sores, right ureteroscopy with lithotripsy in 2005, external sphincetrotomy 1990 and 1994. Cystoscopy with irrigation of blood clots from bladder on 03/31/2017.Hx of Trach. & Peg tube/ since removed 04/27 Past Anesthesia/Blood Transfusion Reactions: No Reported Reaction Past Psychological History: No Psychological Hx Reported Smoking Status: Never smoker Past Alcohol Use History: None Reported Past Drug Use History: None Reported - Past Family History Mother Family Medical History: No Reported History Father Family Medical History: No Reported History <JamesJulio C - Last Filed: 08/24/18 05:16> General Exam General appearance: alert, in no apparent distress Head exam: Present: atraumatic, normocephalic Eye exam: Present: normal appearance. Absent: scleral icterus, conjunctival injection Neck exam: Present: other (Tracheostomy) Respiratory exam: Present: normal lung sounds bilaterally. Absent: respiratory distress, wheezes, rales, rhonchi, stridor Cardiovascular Exam: Present: regular rate, normal rhythm, normal heart sounds. Absent: systolic murmur, diastolic murmur, rubs, gallop GI/Abdominal exam: Present: soft. Absent: distended, tenderness, guarding, lux ound, mass Extremities exam: Present: other Neurological exam: Present: alert Skin exam: Present: warm, dry, intact, normal color, other (Patient has states she decubitus ulcers heal) <Julio C Ramirez - Last Filed: 08/24/18 05:16> Course Vital Signs 08/24/18 08/24/18 08/24/18 04:34 05:15 05:50 Temperature 98.7 F Pulse Rate 118 H 96 Respiratory 16 18 Rate Blood Pressure 132/99 91/63 119/91 O2 Sat by Pulse 97 96 Oximetry 08/24/18 06:49 Temperature 97.7 F Pulse Rate 98 Respiratory 18 Rate Blood Pressure 124/97 O2 Sat by Pulse 100 Oximetry Medical Decision Making - Lab Data Result diagrams: 08/24/18 05:21 08/24/18 05:21 <Kike Zuñiga - Last Filed: 08/24/18 08:39> - Medical Decision Making The patient was endorsed to me at our shift change by Dr. Ramirez pending IV fluids. Patient did receive IV fluids and so much improved he will be discharged at his request. He is to continue with current medication follow-up with his doctor as planned and return when necessary me is presently are in agreement. (Kike Zuñiga) - Lab Data Lab Results 08/24/18 08/24/18 08/24/18 Range/Units 05:21 05:21 05:21 WBC 8.9 (3.8-10.6) k/uL RBC 5.11 (4.30-5.90) m/uL Hgb 14.4 (13.0-17.5) gm/dL Hct 43.8 (39.0-53.0) % MCV 85.8 (80.0-100.0) fL MCH 28.3 (25.0-35.0) pg MCHC 33.0 (31.0-37.0) g/dL RDW 14.4 (11.5-15.5) % Plt Count 170 (150-450) k/uL Neutrophils % 72 % Lymphocytes % 18 % Monocytes % 7 % Eosinophils % 2 % Basophils % 0 % Neutrophils # 6.4 (1.3-7.7) k/uL Lymphocytes # 1.6 (1.0-4.8) k/uL Monocytes # 0.6 (0-1.0) k/uL Eosinophils # 0.2 (0-0.7) k/uL Basophils # 0.0 (0-0.2) k/uL Sodium 131 L (137-145) mmol/L Potassium 4.8 (3.5-5.1) mmol/L Chloride 103 (98-107) mmol/L Carbon Dioxide 17 L (22-30) mmol/L Anion Gap 11 mmol/L BUN 23 H (9-20) mg/dL Creatinine 1.22 (0.66-1.25) mg/dL Est GFR (CKD-EPI)AfAm 78 (>60 ml/min/1.73 sqM) Est GFR (CKD-EPI)NonAf 68 (>60 ml/min/1.73 sqM) Glucose 95 (74-99) mg/dL POC Glucose (mg/dL) (75-99) mg/dL POC Glu Director Manufacturing Engineering ID Plasma Lactic Acid Aaron (0.7-2.0) mmol/L Calcium 9.1 (8.4-10.2) mg/dL Total Bilirubin 0.9 (0.2-1.3) mg/dL AST 21 (17-59) U/L ALT 27 (21-72) U/L Alkaline Phosphatase 96 (38-126) U/L Troponin I <0.012 (0.000-0.034) ng/mL Total Protein 6.4 (6.3-8.2) g/dL Albumin 3.3 L (3.5-5.0) g/dL Urine Color Urine Appearance (Clear) Urine pH (5.0-8.0) Ur Specific Hydes (1.001-1.035) Urine Protein (Negative) Urine Glucose (UA) (Negative) Urine Ketones (Negative) Urine Blood (Negative) Urine Nitrite (Negative) Urine Bilirubin (Negative) Urine Urobilinogen (<2.0) mg/dL Ur Leukocyte Esterase (Negative) Urine RBC (0-5) /hpf Urine WBC (0-5) /hpf Urine WBC Clumps (None) /hpf Ur Squamous Epith Cells (0-4) /hpf Ur Transition Epith Cell (0-1) /hpf Urine Bacteria (None) /hpf Hyaline Casts (0-2) /lpf Urine Mucus (None) /hpf 08/24/18 08/24/18 08/24/18 Range/Units 05:21 05:35 06:01 WBC (3.8-10.6) k/uL RBC (4.30-5.90) m/uL Hgb (13.0-17.5) gm/dL Hct (39.0-53.0) % MCV (80.0-100.0) fL MCH (25.0-35.0) pg MCHC (31.0-37.0) g/dL RDW (11.5-15.5) % Plt Count (150-450) k/uL Neutrophils % % Lymphocytes % % Monocytes % % Eosinophils % % Basophils % % Neutrophils # (1.3-7.7) k/uL Lymphocytes # (1.0-4.8) k/uL Monocytes # (0-1.0) k/uL Eosinophils # (0-0.7) k/uL Basophils # (0-0.2) k/uL Sodium (137-145) mmol/L Potassium (3.5-5.1) mmol/L Chloride (98-107) mmol/L Carbon Dioxide (22-30) mmol/L Anion Gap mmol/L BUN (9-20) mg/dL Creatinine (0.66-1.25) mg/dL Est GFR (CKD-EPI)AfAm (>60 ml/min/1.73 sqM) Est GFR (CKD-EPI)NonAf (>60 ml/min/1.73 sqM) Glucose (74-99) mg/dL POC Glucose (mg/dL) 100 H (75-99) mg/dL POC Glu Director Manufacturing Engineering ID [facility] Plasma Lactic Acid Aaron 1.1 (0.7-2.0) mmol/L Calcium (8.4-10.2) mg/dL Total Bilirubin (0.2-1.3) mg/dL AST (17-59) U/L ALT (21-72) U/L Alkaline Phosphatase (38-126) U/L Troponin I (0.000-0.034) ng/mL Total Protein (6.3-8.2) g/dL Albumin (3.5-5.0) g/dL Urine Color Yellow Urine Appearance Turbid (Clear) Urine pH 7.5 (5.0-8.0) Ur Specific Hydes 1.012 (1.001-1.035) Urine Protein Trace H (Negative) Urine Glucose (UA) Negative (Negative) Urine Ketones Trace H (Negative) Urine Blood Small H (Negative) Urine Nitrite Negative (Negative) Urine Bilirubin Negative (Negative) Urine Urobilinogen <2.0 (<2.0) mg/dL Ur Leukocyte Esterase Large H (Negative) Urine RBC 49 H (0-5) /hpf Urine WBC >182 H (0-5) /hpf Urine WBC Clumps Occasional H (None) /hpf Ur Squamous Epith Cells 9 H (0-4) /hpf Ur Transition Epith Cell 1 (0-1) /hpf Urine Bacteria Few H (None) /hpf Hyaline Casts 21 H (0-2) /lpf Urine Mucus Rare H (None) /hpf Disposition <Julio C Ramirez - Last Filed: 08/24/18 05:16> Is patient prescribed a controlled substance at d/c from ED?: No <Kike Zuñiga - Last Filed: 08/24/18 08:39> Clinical Impression: Dehydration, Urinary tract infection Disposition: HOME SELF-CARE Condition: Good Instructions (If sedation given, give patient instructions): Urinary Tract Infection in Men (ED) Additional Instructions: T with her current medications, increase oral fluid consumption. Referrals: Enoch Flores MD [Primary Care Provider] - 1-2 days
[2018-08-24 05:46] LABS: Basophils % (A) 0 %; Eosinophils # (A) 0.2 k/uL (0-0.7); Eosinophils % (A) 2 %; HCT 43.8 % (39.0-53.0); HGB 14.4 gm/dL (13.0-17.5); Lymphocytes # (A) 1.6 k/uL (1.0-4.8); Lymphocytes % (A) 18 %; MCH 28.3 pg (25.0-35.0); MCV 85.8 fL (80.0-100.0); Mean Platelet Volume 7.5; Monocytes # (A) 0.6 k/uL (0-1.0); Monocytes % (A) 7 %; Neutrophils # (A) 6.4 k/uL (1.3-7.7); Neutrophils % (A) 72 %; Platelet Count 170 k/uL (150-450); RBC 5.11 m/uL (4.30-5.90); RDW 14.4 % (11.5-15.5); WBC 8.9 k/uL (3.8-10.6)
[2018-08-24 05:52] VITALS: RESP 18
[2018-08-24 06:02] LABS: Glucose,Whole Blood 100 mg/dL (75-99)
[2018-08-24 06:11] LABS: Appearance,Urine Turbid (Clear); Bacteria,Urine Few /hpf; Bilirubin,Urine Negative (Negative); Blood,Urine Small (Negative); Color,Urine Yellow; Glucose,Urine (UA) Negative (Negative); Hyaline Casts,Urine 21 /lpf (0-2); Ketones,Urine Trace (Negative); Leukocyte Esterase,Urine Large (Negative); Mucus,Urine Rare /hpf; Nitrite,Urine Negative (Negative); PH, Urine 7.5 (5.0-8.0); Protein,Urine Trace (Negative); RBC,Urine 49 /hpf (0-5); Specific Gravity,Urine 1.012 (1.001-1.035); Squamous Epithelial Cell,Urine 9 /hpf (0-4); Transitional Epi Cells,Urine 1 /hpf (0-1); Urobilinogen,Urine <2.0 mg/dL (<2.0); WBC,Urine >182 /hpf (0-5)
--- NOTE | 2018-08-24 06:18 | XR ---
EXAM: XR Chest, 1 View CLINICAL HISTORY: altered mental status TECHNIQUE: Frontal view of the chest. COMPARISON: 08/19/18 FINDINGS: Lungs: Left lung is slightly hyperlucent compared to the right lung, similar to on prior study, can be artifactual versus minimal asymmetrical pulmonary edema of the right lung. Pleural space: Unremarkable. No pneumothorax. Heart: Unremarkable. No cardiomegaly. Mediastinum: Unremarkable. Bones/joints: Unremarkable. IMPRESSION: No substantial change.
[2018-08-24 06:33] LABS: Albumin 3.3 g/dL (3.5-5.0); Calcium 9.1 mg/dL (8.4-10.2); Potassium 4.8 mmol/L (3.5-5.1); Total Bilirubin 0.9 mg/dL (0.2-1.3); Total Protein 6.4 g/dL (6.3-8.2)
[2018-08-24] MEDS ORDERED: SODIUM CHLORIDE 0.9% 1,000 ML IV ONE (06:43)
[2018-08-24 06:49] VITALS: TEMP 97.7
[2018-08-24] MEDS ORDERED: SODIUM CHLORIDE 0.9% 1,000 ML IV STA (07:51)
[2018-08-24 09:18] VITALS: BP 102/57; PULSE 70
== END 2018-08-24 09:59 | disposition home or self-care (01) ==
LOC: EC 04:25
DX: N39.0 Urinary tract infection, site not specified (principal); E86.0 Dehydration; K21.9 Gastro-esophageal reflux disease without esophagitis; G40.909 Epilepsy, unspecified, not intractable, without status epilepticus; G82.50 Quadriplegia, unspecified; Z93.0 Tracheostomy status; Z79.899 Other long term (current) drug therapy; Z88.2 Allergy status to sulfonamides
CPT/HCPCS: 36415; 71045; 80053; 81001; 83605; 84484; 85025; 87040; 87086; 93005; 96360; 96361; 99285

== ENCOUNTER 2018-08-26 22:41 | Inpatient (IN) | payer MEDICARE, BC ==
[2018-08-26] MEDS ORDERED: cefTRIAXone IN SWFI 1,000 MG/10 ML SYRINGE IVP STA (22:45)
[2018-08-26 23:03] LABS: Basophils % (A) 0 %; Eosinophils # (A) 0.4 k/uL (0-0.7); Eosinophils % (A) 5 %; HCT 39.6 % (39.0-53.0); HGB 13.1 gm/dL (13.0-17.5); Lymphocytes # (A) 1.6 k/uL (1.0-4.8); Lymphocytes % (A) 19 %; MCH 27.9 pg (25.0-35.0); MCV 84.5 fL (80.0-100.0); Mean Platelet Volume 7.5; Monocytes # (A) 0.6 k/uL (0-1.0); Monocytes % (A) 7 %; Neutrophils # (A) 5.8 k/uL (1.3-7.7); Neutrophils % (A) 68 %; Platelet Count 167 k/uL (150-450); RBC 4.69 m/uL (4.30-5.90); RDW 14.9 % (11.5-15.5); WBC 8.6 k/uL (3.8-10.6)
[2018-08-26 23:20] LABS: Albumin 3.1 g/dL (3.5-5.0); Calcium 8.6 mg/dL (8.4-10.2); Potassium 4.3 mmol/L (3.5-5.1); Total Bilirubin 0.7 mg/dL (0.2-1.3); Total Protein 6.1 g/dL (6.3-8.2)
[2018-08-26] MEDS ORDERED: SODIUM CHLORIDE 0.9% 2,000 ML IV ONE (23:26)
[2018-08-26 23:49] LABS: Appearance,Urine Cloudy (Clear); Bacteria,Urine Few /hpf; Bilirubin,Urine Negative (Negative); Blood,Urine Moderate (Negative); Color,Urine Light Yellow; Glucose,Urine (UA) Negative (Negative); Ketones,Urine Negative (Negative); Leukocyte Esterase,Urine Large (Negative); Mucus,Urine Rare /hpf; Nitrite,Urine Negative (Negative); PH, Urine 6.5 (5.0-8.0); Protein,Urine Trace (Negative); RBC,Urine 20 /hpf (0-5); Specific Gravity,Urine 1.007 (1.001-1.035); Squamous Epithelial Cell,Urine 1 /hpf (0-4); Urobilinogen,Urine <2.0 mg/dL (<2.0); WBC,Urine 135 /hpf (0-5)
--- NOTE | 2018-08-27 00:32 | P.HPIM ---
History of Present Illness H&P Date: 08/27/18 The patient is a 52 yo M with a PMH of quadraplegia (following C4-C5 injury from a hockey accident at age 18), seizure disorder, recurrent UTIs in setting of chronic indwellling davis catheter, multiple pressure ulcers was contacted to return to the ED. The patient was recently admitted on 08/19/18 for UTI and was discharged on 08/21/18 with Bactrim. The patient returned to the ED on 08/24/18 with complaints of feeling ill and occasional chills. He was given IV fluids after which he felt better and was discharged home upon his request. The patient's initial Urine culture from initial admission grew E. Coli sensitive to Bactrim. The patient however had a repeat Urine culture on 08/24/18 which grew Multi-resistant Pseudomonas. He was thereby contacted to return to the ED for IV abxs. He reports that he has been feeling well since his visit to the ED on 08/24. He denied any further episodes of abdominal pain or feeling ill. He further denied fever, chills, nausea, vomiting, or cough. He continues to use the davis catheter and denied noticing any blood or abnormalities in the urine. The patient underwent an extensive evalutaion in the Ed w/ WBC count 8.6, Hgb 13, Na 129, BUN 22, and Creatinine 1.42. Review of Systems Pertinent positives and negatives as discussed in HPI, a complete review of systems was performed and all other systems are negative. 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 History of kidney stones. Freq. UTI's; Sepsis -,past decubs and current decub lt buttock. History of Any Multi-Drug Resistant Organisms: MRSA, Other MDRO Date of last positivie culture/infection: 09/24/17- 2018 MDRO Source:: FOOT MRSA/ Additional Past Surgical History / Comment(s): multiple surgeries/skin grafts for pressure sores, right ureteroscopy with lithotripsy in 2005, external sphincetrotomy 1990 and 1994. Cystoscopy with irrigation of blood clots from bladder on 03/31/2017.Hx of Trach. & Peg tube/ since removed 1/18 Past Anesthesia/Blood Transfusion Reactions: No Reported Reaction Past Psychological History: No Psychological Hx Reported Smoking Status: Never smoker Past Alcohol Use History: None Reported Past Drug Use History: None Reported - Past Family History Mother Family Medical History: No Reported History Father Family Medical History: No Reported History Medications and Allergies Home Medications Medication Instructions Recorded Confirmed Type Lansoprazole [Prevacid] 15 mg PO DAILY PRN 08/19/18 08/26/18 History levETIRAcetam [Keppra Xr] 500 mg PO DAILY@1200 08/19/18 08/26/18 History Sulfamethoxazole/Trimethoprim 1 tab PO BID 08/24/18 08/26/18 History [Bactrim DS 800-160 mg] Allergies Allergy/AdvReac Type Severity Reaction Status Date / Time Sulfa (Sulfonamide Allergy Rash/Hives Verified 08/26/18 22:57 Antibiotics) Physical Exam Vitals: Vital Signs Temp Pulse Resp BP Pulse Ox 08/27/18 00:00 87 18 104/66 97 08/26/18 23:45 98.0 F 90 18 97/59 98 08/26/18 23:30 98.2 F 82 18 123/82 100 08/26/18 23:15 98.2 F 86 17 84/64 99 08/26/18 23:00 98.2 F 96 18 82/64 97 08/26/18 22:45 98.6 F 114 H 18 79/48 98 Intake and Output 08/26/18 08/26/18 08/27/18 14:59 22:59 06:59 Output Total 500 Balance -500 Output: Urine 500 Uretheral (Davis) 500 Other: Weight 89.358 kg General: non toxic, no distress, appears at stated age, normal weight Derm: no unusual rashes/lesions no unusual ecchymoses, warm, dry Head: atraumatic, normocephalic, symmetric Eyes: EOMI, no lid lag, anicteric sclera, pupils equal round reactive to light ENT: Nose and ears atraumatic, no thrush, no pharyngeal erythema Neck: No thyromegaly, no cervical lymphadenopathy, trachea midline, supple Mouth: no lip lesion, mucus membranes moist Cardiovascular: S1S2 reg, no murmur, positive posterior tibial pulse bilateral, no edema, capillary refill less than 2 seconds Lungs: CTA bilateral, no rhonchi, no rales , no accessory muscle use Abdominal: soft, nontender to palpation, no guarding, no appreciable organomegaly, normal bowel sounds Ext: thin extremities, quadriplegic Neuro: CN II-XI grossly intact Psych: Alert, oriented, appropriate affect Results CBC & Chem 7: 08/26/18 22:53 08/26/18 22:53 Labs: Abnormal Lab Results - Last 24 Hours (Table) 08/26/18 08/26/18 Range/Units 22:53 23:25 Sodium 129 L (137-145) mmol/L Carbon Dioxide 18 L (22-30) mmol/L BUN 22 H (9-20) mg/dL Creatinine 1.42 H (0.66-1.25) mg/dL Glucose 104 H (74-99) mg/dL Total Protein 6.1 L (6.3-8.2) g/dL Albumin 3.1 L (3.5-5.0) g/dL Urine Protein Trace H (Negative) Urine Blood Moderate H (Negative) Ur Leukocyte Esterase Large H (Negative) Urine RBC 20 H (0-5) /hpf Urine WBC 135 H (0-5) /hpf Urine WBC Clumps Moderate H (None) /hpf Urine Bacteria Few H (None) /hpf Urine Mucus Rare H (None) /hpf Assessment and Plan Plan: UTI, w/ multi-drug resistant Pseudomonas -C/w Gentamicin 120 mg q8h -ID consult -C/w IVFs 100 cc/hr -C/w davis catheter Hyponatremia, euvolemic -Monitor BMP Elevated creatinine, RENATA vs benign increase secondary to Bactrim -Bactrim switched to Gentamicin -Monitor BMP Seizure disorder -Resume home meds DVT prophylaxis -Heparin The patient is admitted with an anticipated less than 2 midnight stay for evaluation of UTI. CODE STATUS:Full Code Discussed with: Patient Anticipated discharge date: 08/29/[address]: Home A total of 40 minutes was spent on the care of this complex patient more than 50% of the time was spent in counseling and care coordination.
[2018-08-27] MEDS: GENTAMICIN 120 MG in SODIUM CHLORIDE 0.9% 100 ML IVPB SCH ×3 (01:20→16:26)
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
[2018-08-27] MEDS ORDERED: PANTOPRAZOLE 40 MG TABLET PO PRN (07:36)
[2018-08-27] MEDS: levETIRAcetam 250 MG TAB PO SCH ×2 (08:15→20:21)
[2018-08-27] MEDS ORDERED: NALOXONE 0.4 MG/ML 1 ML VIAL IV PRN (16:52)
[2018-08-27] MEDS ORDERED: HYDROcodone/APAP 5-325MG 1 EACH TAB PO PRN (16:52)
[2018-08-27] MEDS ORDERED: ACETAMINOPHEN TAB 325 MG TAB PO PRN (16:52)
[2018-08-27] MEDS: SODIUM CHLORIDE 0.9% 1,000 ML IV SCH (17:24)
--- NOTE | 2018-08-27 17:34 | P.PN ---
Progress Note - Text Progress Note Date: 08/27/18 52-year-old male with PMH of quadriplegia, seizure disorder, recurrent UTIs secondary to chronic indwelling Mclaughlin catheter, pressure ulcers presents the ED. He was seen in the ED on 08/24/2018 with complaints of feeling ill and chills. He was given IV fluids and discharged home when he felt better. Urine culture grew multiresistant Pseudomonas. He was advised to come back to the ED for treatment. Patient was seen and examined today. No acute events overnight. Patient reports no symptoms at this time. He is felt well since discharge from ED on 08/24/2018. Patient is alert and oriented 3. UTI with multidrug resistant Pseudomonas Hyponatremia likely secondary to hypovolemia Acute kidney injury Seizure disorder Plans to start gentamicin IV for treatment of Pseudomonas. ID Dr. Locke consulted for antibiotic recommendations. His hyponatremia is likely secondary to hypovolemic hyponatremia. He was given IVF in the ED. Restart Keppra for treatment of seizure disorder. Creatinine seems elevated at 1.42, likely secondary to dehydration. We will continue normal saline at 100 mL/h for treatment of hyponatremia and acute kidney injury. Likely DC today or tomorrow.
[2018-08-27] MEDS: HEPARIN SODIUM,PORCINE 5,000 UNIT/ML 1 ML VIAL SQ SCH (20:21)
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
[2018-08-28] MEDS: SODIUM CHLORIDE 0.9% 1,000 ML IV SCH ×2 (06:10→14:11)
[2018-08-28] MEDS: HEPARIN SODIUM,PORCINE 5,000 UNIT/ML 1 ML VIAL SQ SCH ×2 (07:52→22:13)
[2018-08-28] MEDS: levETIRAcetam 250 MG TAB PO SCH ×2 (07:53→22:12)
[2018-08-28 10:27] LABS: Anion Gap 5 mmol/L; Blood Urea Nitrogen 11 mg/dL (9-20); Calcium 8.1 mg/dL (8.4-10.2); Carbon Dioxide 20 mmol/L (22-30); Chloride 107 mmol/L (98-107); Glucose 101 mg/dL (74-99); Sodium 132 mmol/L (137-145)
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
[2018-08-29] MEDS: SODIUM CHLORIDE 0.9% 1,000 ML IV SCH ×2 (00:28→09:24)
[2018-08-29] MEDS: levETIRAcetam 250 MG TAB PO SCH (09:23)
[2018-08-29] MEDS: HEPARIN SODIUM,PORCINE 5,000 UNIT/ML 1 ML VIAL SQ SCH (09:23)
--- NOTE | 2018-08-29 12:27 | P.DS ---
Providers Date of admission: 08/27/18 01:26 Expected date of discharge: 08/29/18 Attending physician: Ata Chiang MD Consults: 08/27/18 09:13 Consult Physician Routine Consulting Provider: Magdiel Locke Consult Reason/Comments: UTI multi drug resistant Do you want consulting provider notified?: Yes Primary care physician: Enoch Flores - Discharge Diagnosis(es) (1) Acute urinary tract infection Status: Acute (2) Hyponatremia Status: Acute (3) Quadriplegia and quadriparesis Status: Chronic (4) Seizure Status: Chronic Hospital Course: The patient is a 53-year-old male with a history of quadriplegia due to spinal cord injury who is admitted for what was suspected as a multidrug resistant pseudomonal UTI, after the patient had recently been treated for E. coli UTI with Bactrim as an outpatient. ID was consulted to see the patient was determined that the growth from pseudomonal species was secondary to bacterial colonization actually not an acute infection, the patient had initially been started on gentamicin but was later switched to Rocephin by ID with plans to transition to Augmentin. The patient was also noted to have acute kidney injury after presenting with a creatinine of 1.42 which eventually normalized with IV fluids. The patient was subsequently discharged home in stable condition on Augmentin.This discharge process took approximately 35 minutes Focus exam Neuro: Awake alert oriented to person place and time. Quadriplegia noted, upper and lower extremities have flaccid paralysis but no open ulcerations noted Patient Condition at Discharge: Good Plan - Discharge Summary Discharge Rx Participant: No New Discharge Prescriptions: New Amoxic-Pot Clav 875-125Mg [Augmentin 875-125] 1 tab PO Q12HR #14 tablet No Action Lansoprazole [Prevacid] 15 mg PO DAILY PRN PRN Reason: Heartburn levETIRAcetam [Keppra Xr] 500 mg PO DAILY@1200 Sulfamethoxazole/Trimethoprim [Bactrim DS 800-160 mg] 1 tab PO BID Discharge Medication List Lansoprazole [Prevacid] 15 mg PO DAILY PRN 08/19/18 [History] levETIRAcetam [Keppra Xr] 500 mg PO DAILY@1200 08/19/18 [History] Sulfamethoxazole/Trimethoprim [Bactrim DS 800-160 mg] 1 tab PO BID 08/24/18 [History] Amoxic-Pot Clav 875-125Mg [Augmentin 875-125] 1 tab PO Q12HR #14 tablet 08/28/18 [Rx] Follow up Appointment(s)/Referral(s): [facility], [REFERRING] - Enoch Flores MD [Primary Care Provider] - 1-2 days [facility] Visiting Nurse, [NON-STAFF] - Patient Instructions/Handouts: Urinary Tract Infection in Men (DC) Discharge Disposition: HOME WITH HOME HEALTH SERVICES
[2018-08-29 15:19] VITALS: BP 153/83; PULSE 52; RESP 16; TEMP 97.9
--- NOTE | 2018-08-30 13:06 | CDI ---
Documentation Clarification Form Date: 08/30/18 From: Marina Doan Phone: If you have a question regarding this query, please contact Marian Aviles at [phone] between 8am and 5pm. Admit Date: 08/27/2018 1:26:00 AM Patient Name: Og Grant Visit Number: [id number] Discharge Date: 08/29/2018 4:18:00 PM ATTENTION: The Clinical Documentation Specialists (CDI) and [facility] Coding Staff appreciate your assistance in clarifying documentation. Please respond to the clarification below the line at the bottom and electronically sign. The CDI & [facility] Coding staff will review the response and follow-up if needed. Please note: Queries are made part of the Legal Health Record. If you have any questions, please contact the author of this message via ITS. Dr. Pradeep Rg A diagnosis of UTI has been documented in the ED report, H&P, discharge summary, consult note and progress notes. History/Risk Factors: Per documentation throughout the record this patient was admitted with an indwelling Davis catheter/a suprapubic catheter/ urostomy. Quadriplegia due to cervical spine injury, urinary retention and history of UTI. The patient had Pseudomonas grown in his urine in a culture collected on 08/24. Clinical Indicators: Feeling ill, chills on 08/24. Urinalysis: Trace protein, moderate blood, large leukocyte esterase, 20 RBC, 135 WBC, few bacteria, rare mucus Urine culture: Pseudomonas which was believed to be colonization and believed patient's UTI is due to E.coli. Lab results: Sodium 129, BUN 22, creatinine 1.42 Treatment: IV Gentamicin switched to IV Rocephin In your professional opinion, can you please clarify the etiology of the UTI, if known? UTI due to Davis catheter UTI not related to catheter/urostomy Other condition, please specify Unable to determine UTI due to davis, ELMIRAA RAMONAD
== END 2018-08-29 16:18 | disposition home health service (06) | DRG 698 ==
LOC: EC 22:41 → 4MS4W 08-27 01:26
PROVIDERS: ADMIT Internal Medicine; ATTEND Internal Medicine
DX: T83.511A Infection and inflammatory reaction due to indwelling urethral catheter, initial encounter (principal); G82.50 Quadriplegia, unspecified; N17.9 Acute kidney failure, unspecified; E87.1 Hypo-osmolality and hyponatremia; N39.0 Urinary tract infection, site not specified; I95.9 Hypotension, unspecified; S14.105S Unspecified injury at C5 level of cervical spinal cord, sequela; B96.20 Unspecified Escherichia coli [E. coli] as the cause of diseases classified elsewhere; E86.0 Dehydration; G40.909 Epilepsy, unspecified, not intractable, without status epilepticus; K21.9 Gastro-esophageal reflux disease without esophagitis; E66.9 Obesity, unspecified; Z68.25 Body mass index [BMI] 25.0-25.9, adult; Z74.01 Bed confinement status; Z87.442 Personal history of urinary calculi; Z87.440 Personal history of urinary (tract) infections; Z16.24 Resistance to multiple antibiotics; Z86.14 Personal history of Methicillin resistant Staphylococcus aureus infection; Z88.2 Allergy status to sulfonamides; X58.XXXS Exposure to other specified factors, sequela; Y84.6 Urinary catheterization as the cause of abnormal reaction of the patient, or of later complication, without mention of misadventure at the time of the procedure
CPT/HCPCS: 36415; 51702; 71045; 80048; 80053; 81001; 83605; 84484; 85025; 87040; 87077; 87086; 87186; 93005; 96360; 96361; 96365; 96375; 99284; 99285

== ENCOUNTER 2019-01-01 11:09 | Observation (INO) | payer MEDICARE, BC ==
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
[2019-01-01] MEDS ORDERED: SODIUM CHLORIDE 0.9% 1,000 ML IV STA (11:53)
[2019-01-01] MEDS ORDERED: NALOXONE 0.4 MG/ML 1 ML VIAL IV PRN (11:53)
[2019-01-01] MEDS ORDERED: PIPERACILLIN-TAZOBACTAM 3.375 GM in SODIUM CHLORIDE 0.9% 100 ML IVPB STA (11:53)
[2019-01-01] MEDS ORDERED: HYDROmorphone 0.5 MG/0.5 ML SYRINGE IVP PRN (11:59)
[2019-01-01] MEDS ORDERED: MORPHINE ORAL SOLN 10 MG/5 ML CUP PO PRN (11:59)
[2019-01-01 13:06] LABS: Basophils % (A) 0 %; Eosinophils # (A) 0.1 k/uL (0-0.7); Eosinophils % (A) 4 %; HCT 55.2 % (39.0-53.0); HGB 18.9 gm/dL (13.0-17.5); Lymphocytes # (A) 0.7 k/uL (1.0-4.8); Lymphocytes % (A) 19 %; MCH 28.7 pg (25.0-35.0); MCHC 34.2 g/dL (31.0-37.0); MCV 83.9 fL (80.0-100.0); Mean Platelet Volume 8.1; Monocytes # (A) 0.2 k/uL (0-1.0); Monocytes % (A) 6 %; Neutrophils # (A) 2.4 k/uL (1.3-7.7); Neutrophils % (A) 69 %; RBC 6.58 m/uL (4.30-5.90); RDW 15.3 % (11.5-15.5); WBC 3.5 k/uL (3.8-10.6)
[2019-01-01 13:40] LABS: Platelet Count 69 k/uL (150-450)
[2019-01-01] MEDS ORDERED: PANTOPRAZOLE 40 MG TABLET PO PRN (20:43)
--- NOTE | 2019-01-01 21:29 | P.HPIM ---
History of Present Illness H&P Date: 01/01/19 Chief Complaint: Not feeling well History of presenting complaint: This is a 53-year-old patient being followed by visiting physicians Dr. Flores.. Chronic stable medical conditions include GERD, seizure disorder, quadriplegic due to hockey related injury C5 through C6 9085. Also has a chronic neurogenic bladder uses a condom catheter, with frequent UTIs. Also has kidney stones. Has had previous decubitus ulcers. Patient is a bowel program with suppository every other day. Sometimes has to manually evacuated the stool. She was not feeling well last week and urine had become a bit cloudy and urine was then sent out for testing. Has come back positive for Pseudomonas and UTI and patient was sent in for the same. Patient started on IV Zosyn. ID was consulted. Appetite is okay. No change in bowel pattern. Patient's brother and mother hour caregivers at home. Review of systems: GEN.: Tired EYES: None HEENT: None NECK: None RESPIRATORY: None CARDIOVASCULAR: None GASTROINTESTINAL: As above GENITOURINARY: Bit cloudy urine MUSCULOSKELETAL: None LYMPHATICS: None HEMATOLOGICAL: None PSYCHIATRY: None NEUROLOGICAL: Minimal sensation in lower extremity, contraction of the lower limbs Social history: Does not smoke or drink alcohol. Lives at home. Mother and brother both caregivers. Patient is bedbound uses a lift to wheelchair. Needs assistance w ith eating. Family history: Reviewed, noncontributory to presentation Physical examination: VITAL SIGNS: 97.6, 54, 18, 148/59, 99% room air GENERAL: BMI 27.1, laying in bed tired appearing. EYES: Pupils equal. Conjunctiva normal. HEENT: External appearance of nose and ears normal, oral cavity grossly normal. NECK: JVD not raised; masses not palpable. HEART: First and second heart sounds are normal; no edema. LUNGS: Respiratory rate normal; clear to auscultation. ABDOMEN: Soft, nontender, liver spleen not palpable, no masses palpable, condom catheter in place. PSYCH: Alert and oriented x3; mood and affect normal. NEUROLOGICAL: Cranial nerves grossly intact; no facial asymmetry, 0 part of the lower extremity, lower extremities contracted. LYMPHATICS: No lymph nodes palpable in the axilla and neck INVESTIGATIONS, reviewed in the clinical context: White count 3.5 hemoglobin 18.9 platelets 69 Platelets was 167 in August of this year UA from 12/27/2018 shows positive leukoesterase WBC 48 Urine culture growing Pseudomonas and E. coli Assessment: -Acute UTI from cystitis secondary to chronic catheter in a patient with underlying neurogenic bladder with cultures positive for pseudomonas aeruginosa and E. coli -GERD -Chronic seizure disorder -Quadriplegia due to C5-C6 injury in 1994 -Chronic neurogenic bladder uses a condom catheter -Chronic medical debility - Plan: Patient's organism sensitive to Zosyn. Started of the same. Home medications resumed. Care was discussed with the patient. ID is to be consulted. Questions were answered. Past Medical History Past Medical History: GERD/Reflux, Pneumonia, Seizure Disorder, Skin Disorder Additional Past Medical History / Comment(s): Quadriplegic due to hockey-related injury toC5 through C6 in 1984, neurogenic bladder-uses condom cath, freqeunt UTIs/UTI with sepsis, kidney stones-surgically removed, past decubitus, recurrent L buttock decub,. last seizure 2016. History of Any Multi-Drug Resistant Organisms: MRSA, Other MDRO Date of last positivie culture/infection: 09/24/17 MRSA MDRO Source:: Foot-MRSA; Urine-MDRO Additional Past Surgical History / Comment(s): multiple surgeries/skin grafts for pressure sores, right ureteroscopy with lithotripsy, external sphincetrotomy 1990 and 1994, cystoscopy with irrigation of blood clots from bladder, trach. & peg tube/ since removed, picc lines Past Anesthesia/Blood Transfusion Reactions: No Reported Reaction Smoking Status: Never smoker - Past Family History Mother Family Medical History: No Reported History Additional Family Medical History / Comment(s): Mother is healthy. Father Family Medical History: COPD Additional Family Medical History / Comment(s): Father at the age of 65yrs. Medications and Allergies Home Medications Medication Instructions Recorded Confirmed Type Lansoprazole [Prevacid] 15 mg PO DAILY PRN 08/19/18 01/01/19 History levETIRAcetam [Keppra Xr] 500 mg PO DAILY@1200 08/19/18 01/01/19 History Allergies Allergy/AdvReac Type Severity Reaction Status Date / Time Sulfa (Sulfonamide Allergy Rash/Hives Verified 01/01/19 12:18 Antibiotics) Physical Exam Vitals: Vital Signs Temp Pulse Pulse Resp BP BP Pulse Ox 01/01/19 19:17 97.6 F 54 L 18 148/59 99 01/01/19 14:35 59 L 16 124/89 98 01/01/19 12:59 74 16 116/82 98 Intake and Output 01/01/19 01/01/19 01/01/19 06:59 14:59 22:59 Output Total 1100 Balance -1100 Output: Urine 1100 Uretheral (Mclaughlin) 1100 Other: Voiding Method Indwelling Catheter Weight 90.718 kg Results CBC & Chem 7: 01/01/19 12:10 Labs: Abnormal Lab Results - Last 24 Hours (Table) 01/01/19 Range/Units 12:10 WBC 3.5 L (3.8-10.6) k/uL RBC 6.58 H (4.30-5.90) m/uL Hgb 18.9 H (13.0-17.5) gm/dL Hct 55.2 H (39.0-53.0) % Plt Count 69 L (150-450) k/uL Lymphocytes # 0.7 L (1.0-4.8) k/uL Thrombosis Risk Factor Assmnt - Choose All That Apply Any of the Below Risk Factors Present?: Yes Each Factor Represents 1 point: Age 41-60 years, Medical pt on bed rest, Obesity (BMI >25) Other Risk Factors: Yes Each Risk Factor Represents 2 Points: Patient confined to bed Other congenital or acquired thrombophilia - If yes, enter type in comment: No Thrombosis Risk Factor Assessment Total Risk Factor Score: 5 Thrombosis Risk Factor Assessment Level: High Risk
[2019-01-02 08:19] LABS: Anisocytosis Slight; Basophils % (A) 0 %; Eosinophils # (A) 0.3 k/uL (0-0.7); Eosinophils % (A) 5 %; HCT 36.3 % (39.0-53.0); Lymphocytes # (A) 0.9 k/uL (1.0-4.8); Lymphocytes % (A) 14 %; MCHC 34.3 g/dL (31.0-37.0); MCV 84.6 fL (80.0-100.0); Mean Platelet Volume 7.5; Monocytes # (A) 0.4 k/uL (0-1.0); Monocytes % (A) 6 %; Neutrophils # (A) 4.5 k/uL (1.3-7.7); Neutrophils % (A) 73 %; RBC 4.29 m/uL (4.30-5.90); RDW 16.5 % (11.5-15.5); WBC 6.2 k/uL (3.8-10.6)
[2019-01-02 08:30] LABS: HGB 12.4 gm/dL (13.0-17.5); Platelet Count 141 k/uL (150-450)
[2019-01-02] MEDS: levETIRAcetam 250 MG TAB PO SCH ×2 (09:57→20:43)
[2019-01-02] MEDS: CEFEPIME 2 GM in SODIUM CHLORIDE 0.9% 100 ML IVPB SCH ×2 (09:58→20:52)
[2019-01-02 14:35] LABS: Appearance,Urine Cloudy (Clear); Bilirubin,Urine Negative (Negative); Blood,Urine Small (Negative); Budding Yeast,Urine Few /hpf; Color,Urine Yellow; Glucose,Urine (UA) Negative (Negative); Ketones,Urine Negative (Negative); Leukocyte Esterase,Urine Large (Negative); Mucus,Urine Rare /hpf; Nitrite,Urine Positive (Negative); PH, Urine 6.5 (5.0-8.0); Protein,Urine 1+ (Negative); RBC,Urine 21 /hpf (0-5); Specific Gravity,Urine 1.011 (1.001-1.035); Squamous Epithelial Cell,Urine <1 /hpf (0-4); Urobilinogen,Urine <2.0 mg/dL (<2.0); WBC,Urine >182 /hpf (0-5)
[2019-01-02] MEDS ORDERED: LACTATED RINGERS 1,000 ML IV SCH (16:45)
--- NOTE | 2019-01-02 22:04 | P.PN ---
Progress Note - Text Progress Note Date: 01/02/19 Interval history: This is a 53-year-old patient being followed by visiting physicians Dr. Flores.. Chronic stable medical conditions include GERD, seizure disorder, quadriplegic due to hockey related injury C5 through C6 9085. Also has a chronic neurogenic bladder uses a condom catheter, with frequent UTIs. Also has kidney stones. Has had previous decubitus ulcers. Patient is a bowel program with suppository every other day. Sometimes has to manually evacuated the stool. She was not f eeling well last week and urine had become a bit cloudy and urine was then sent out for testing. Has come back positive for Pseudomonas and UTI and patient was sent in for the same. Patient started on IV Zosyn. ID was consulted. Appetite is okay. No change in bowel pattern. Patient's brother and mother hour caregivers at home. Admitted with acute UTI, recurrent Today-mother the bedside. Patient feels better. Running his diet. PICC line has been ordered. Urine is clearing up. Review of systems: Was done for constitutional, cardiovascular, GI, pulmonary. relevant finding as above Active Medications Cefepime HCl 2 gm/ Sodium (Chloride) 100 mls @ 200 mls/hr IVPB Q12HR [facility] Last Admin: 01/02/19 20:52 Dose: 200 mls/hr Documented by: Lactated Ringer's (Lactated Ringers) 1,000 mls @ 100 mls/hr IV .Q10H [facility] Stop: 01/03/19 02:44 Last Admin: 01/02/19 17:24 Dose: 100 mls/hr Documented by: Levetiracetam (Keppra) 250 mg PO BID [facility] Last Admin: 01/02/19 20:43 Dose: 250 mg Documented by: Naloxone HCl (Narcan) 0.2 mg IV Q2M PRN PRN Reason: Opioid Reversal Pantoprazole Sodium (Protonix) 40 mg PO DAILY PRN PRN Reason: Heartburn Physical examination: VITAL SIGNS: 97, 53, 16, 11 5/37, 94% room air GENERAL: BMI 27.1, laying in bed appearing more comfortable EYES: Pupils equal. Conjunctiva normal. HEENT: External appearance of nose and ears normal, oral cavity grossly normal. NECK: JVD not raised; masses not palpable. HEART: First and second heart sounds are normal; no edema. LUNGS: Respiratory rate normal; clear to auscultation. ABDOMEN: Soft, nontender, liver spleen not palpable, no masses palpable, condom catheter in place. PSYCH: Alert and oriented x3; mood and affect normal. NEUROLOGICAL: Cranial nerves grossly intact; no facial asymmetry, 0 part of the lower extremity, lower extremities contracted. INVESTIGATIONS, reviewed in the clinical context: White count 6.2 hemoglobin 12.4 which is 141 Admission labs White count 3.5 hemoglobin 18.9 platelets 69 Platelets was 167 in August of this year UA from 12/27/2018 shows positive leukoesterase WBC 48 Urine culture growing Pseudomonas and E. coli Assessment: -Acute UTI from cystitis secondary to chronic catheter in a patient with underlying neurogenic bladder with cultures positive for pseudomonas aeruginosa and E. 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 Continue with antibiotics. PICC line is being placed. Hopefully can be discharged tomorrow.
--- NOTE | 2019-01-02 23:41 | P.CONS ---
History of Present Illness - Reason for Consult Consult date: 01/02/19 Pseudomonas urinary tract infection Requesting physician: Shankar Galaviz - Chief Complaint positive urine culture - History of Present Illness Patient is a 53 year male with a past medical history significant for quadriplegia secondary to cervical spine injury in this patient who do have a neurogenic bladder did have a condom catheter and history of recurrent urinary tract infection apparently the patient was diagnosed in the outpatient setting with UTI and has been treated with Levaquin however urine culture came back positive for E. coli and Pseudomonas that has been resistant to Levaquin for the patient to been advised to go to the hospital for IV antibiotic therapy the patient be feeling slightly weak and lethargic but denies any high-grade fever p atient did not have any sensation because of his quadriplegia since denies any suprapubic or flank pain or any burning of urine patient did mention that his condom catheter has been changed however no repeat UA was ordered or collected the patient did receive 1 dose of Zosyn in the area subsequently the patient has been admitted to the hospital and infectious disease was consulted for further recommendation for antibiotic patient is wondering if he can get a midline and complete his IV antibiotic at home Review of Systems Positive points has been mentioned in HPI rest of the systems are negative Past Medical History Past Medical History: GERD/Reflux, Pneumonia, Seizure Disorder, Skin Disorder Additional Past Medical History / Comment(s): Quadriplegic due to hockey-related injury toC5 through C6 in 1984, neurogenic bladder-uses condom cath, freqeunt UTIs/UTI with sepsis, kidney stones-surgically removed, past decubitus, recurrent L buttock decub,. last seizure 2016. History of Any Multi-Drug Resistant Organisms: MRSA, Other MDRO Year Discovered:: 09/24/17 MRSA MDRO Source:: Foot-MRSA; Urine-MDRO Additional Past Surgical History / Comment(s): multiple surgeries/skin grafts for pressure sores, right ureteroscopy with lithotripsy, external sphincetrotomy 1990 and 1994, cystoscopy with irrigation of blood clots from bladder, trach. & peg tube/ since removed, picc lines Past Anesthesia/Blood Transfusion Reactions: No Reported Reaction Smoking Status: Never smoker - Past Family History Mother Family Medical History: No Reported History Additional Family Medical History / Comment(s): Mother is healthy. Father Family Medical History: COPD Additional Family Medical History / Comment(s): Father at the age of 65yrs. Medications and Allergies Home Medications Medication Instructions Recorded Confirmed Type Lansoprazole [Prevacid] 15 mg PO DAILY PRN 08/19/18 01/01/19 History levETIRAcetam [Keppra Xr] 500 mg PO DAILY@1200 08/19/18 01/01/19 History Allergies Allergy/AdvReac Type Severity Reaction Status Date / Time Sulfa (Sulfonamide Allergy Rash/Hives Verified 01/01/19 12:18 Antibiotics) Physical Exam Vitals: Vital Signs Temp Pulse Pulse Resp BP BP Pulse Ox 01/02/19 07:42 98.0 F 56 L 16 105/69 96 01/02/19 03:30 18 01/02/19 02:33 98.5 F 59 L 18 81/52 99 01/02/19 00:15 18 01/01/19 20:00 18 01/01/19 19:17 97.6 F 54 L 18 148/59 99 01/01/19 14:35 59 L 16 124/89 98 01/01/19 12:59 74 16 116/82 98 Intake and Output 01/01/19 01/02/19 01/02/19 22:59 06:59 14:59 Output Total 1600 1300 Balance -1600 -1300 Output: Urine 1600 1300 Uretheral (Mclaughlin) 1100 Other: Voiding Method Indwelling Catheter Indwelling Catheter GENERAL DESCRIPTION: Middle-aged male lying in bed, no distress. No tachypnea or accessory muscle of respiration use. HEENT: Shows Pallor , no scleral icterus. Oral mucous membrane is dry. No pharyngeal erythema or thrush NECK: Trachea central, no thyromegaly. LUNGS: Unlabored breathing. Clear to auscultation anteriorly. No wheeze or crackle. HEART: S1, S2, regular rate and rhythm. No loud murmur ABDOMEN: Soft, no tenderness , guarding or rigidity, no organomegaly EXTREMITIES: No edema of feet. SKIN: No rash, no masses palpable. NEUROLOGICAL: The patient is awake, alert, oriented x3, mood and affect normal. Results CBC & Chem 7: 01/02/19 07:38 01/02/19 07:48 Labs: Abnormal Lab Results - Last 24 Hours (Table) 01/01/19 01/02/19 Range/Units 12:10 07:38 WBC 3.5 L (3.8-10.6) k/uL RBC 6.58 H 4.29 L (4.30-5.90) m/uL Hgb 18.9 H 12.4 L D (13.0-17.5) gm/dL Hct 55.2 H 36.3 L (39.0-53.0) % RDW 16.5 H (11.5-15.5) % Plt Count 69 L 141 L D (150-450) k/uL Lymphocytes # 0.7 L 0.9 L (1.0-4.8) k/uL Assessment and Plan Assessment: 1-patient is a 53 male with underlying quadriplegia neurogenic better and a condom catheter with history of any UTI and outpatient urine cultures have been positive for E. coli and Pseudomonas HAS been resistant to quinolone with no oral options available (1) Pseudomonas urinary tract infection Current Visit: Yes Status: Acute Code(s): N39.0 - URINARY TRACT INFECTION, SITE NOT SPECIFIED; B96.5 - PSEUDOMONAS (MALLEI) CAUSING DISEASES [facility]SD [facility] SNOM[facility] Code(s): 952754076 Plan: 1-start the patient on cefepime 2 g every 12 hours 2-obtain a midline for outpatient IV antibiotic prescription was provided to the case therapist to expedite the discharge process 3-duration of antibiotic should be 7 days as clinically doubt deep infection we will follow on clinical condition and culture to further adjust medication if needed Thank you for this consultation will follow this patient along with you Time with Patient: Greater than 30
[2019-01-03] MEDS: levETIRAcetam 250 MG TAB PO SCH (08:19)
[2019-01-03] MEDS: CEFEPIME 2 GM in SODIUM CHLORIDE 0.9% 100 ML IVPB SCH ×2 (08:19→09:48)
[2019-01-03 08:37] VITALS: BP 136/89; PULSE 56; RESP 12; TEMP 98.7
[2019-01-03] MEDS ORDERED: CEFEPIME 2 GM in SODIUM CHLORIDE 0.9% 100 ML IVPB ONE (14:00)
--- NOTE | 2019-01-03 18:45 | PN ---
PROGRESS NOTE DATE OF SERVICE: 01/03/2019. REASON FOR FOLLOWUP: Pseudomonas urinary tract infection. INTERVAL HISTORY: The patient was seen on rounds this morning. The patient has been afebrile. The patient was breathing comfortably. No chest pain. No cough. No nausea, no vomiting. No abdominal pain. No diarrhea. PHYSICAL EXAMINATION: Blood pressure 136/89 with a pulse of 83, temperature 98.3. He is 99% on room air. General description is a middle-aged male lying in bed in no distress. Respiratory system: Unlabored breathing. Clear to auscultation anteriorly. Heart S1, S2. Regular rate and rhythm. ABDOMEN: Soft. No tenderness. LABS: No new labs have been obtained today. Urine culture currently pending. DIAGNOSTIC IMPRESSION AND PLAN: Patient with recurrent UTI with outpatient culture positive for Pseudomonas and E coli that was sensitive, resistant to Levaquin. The patient is currently on IV cefepime and has shown overall clinical improvement, to continue with cefepime 2 g q.12h for 7 days to finish a course of therapy. Prescription provided with the case briefer yesterday and the patient has got a midline. Cleared for discharge. MMODL / IJN: [id number] /
--- NOTE | 2019-01-03 21:19 | P.DS ---
Providers Date of admission: 01/01/19 11:29 Expected date of discharge: 01/03/19 Attending physician: Shankar Galaviz Consults: 01/01/19 20:43 Consult Physician Routine Consulting Provider: Trenton Oreilly Consult Reason/Comments: uti Do you want consulting provider notified?: Yes Primary care physician: Enoch Flores [facility] Hospital Course: Hospital course: This is a 53-year-old patient being followed by visiting physicians Dr. Flores.. Chronic stable medical conditions include GERD, seizure disorder, quadriplegic due to hockey related injury C5 through C6 9085. Also has a chronic neurogenic bladder uses a condom catheter, with frequent UTIs. Also has kidney stones. Has had previous decubitus ulcers. Patient is a bowel program with suppository every other day. Sometimes has to manually evacuated the stool. She was not feeling well last week and urine had become a bit cloudy and urine was then sent out for testing. Has come back positive for Pseudomonas and UTI and patient was sent in for the same. Patient started on IV Zosyn. ID was consulted. Appetite is okay. No change in bowel pattern. Patient's brother and mother hour caregivers at home. Admitted with acute UTI, recurrent Laying in bed. Doing much better today. Appetite fair. Urine is significant clear. Okay per ID to be discharge. Patient being discharged on IV cefepime for 7 days Consultation: Dr. Oreilly from ID Physical examination: VITAL SIGNS: 98.7, 56, 12, 136/89, 99% room air GENERAL: Laying in bed, comfortable EYES: Pupils equal. Conjunctiva normal. HEENT: External appearance of nose and ears normal, oral cavity grossly normal. NECK: JVD not raised; masses not palpable. HEART: First and second heart sounds are normal; no edema. LUNGS: Respiratory rate normal; clear to auscultation. ABDOMEN: Soft, nontender, liver spleen not palpable, no masses palpable, condom catheter in place. PSYCH: Alert and oriented x3; mood and affect normal. NEUROLOGICAL: Cranial nerves grossly intact; no facial asymmetry, 0 part of the lower extremity, lower extremities contracted. INVESTIGATIONS, reviewed in the clinical context: White count 6.2 hemoglobin 12.4 which is 141 Admission labs White count 3.5 hemoglobin 18.9 platelets 69 Platelets was 167 in August of this year UA from 12/27/2018 shows positive leukoesterase WBC 48 Urine culture growing Pseudomonas and E. coli Discharge diagnosis: -Acute UTI from cystitis secondary to chronic catheter in a patient with underlying neurogenic bladder with cultures positive for pseudomonas aeruginosa and E. 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 -Chronic neurogenic bladder uses a condom catheter -Chronic medical debility Disposition: Home Patient Condition at Discharge: Stable Plan - Discharge Summary Discharge Rx Participant: No New Discharge Prescriptions: Continue Lansoprazole [Prevacid] 15 mg PO DAILY PRN PRN Reason: Heartburn levETIRAcetam [Keppra Xr] 500 mg PO DAILY@1200 Discharge Medication List Lansoprazole [Prevacid] 15 mg PO DAILY PRN 08/19/18 [History] levETIRAcetam [Keppra Xr] 500 mg PO DAILY@1200 08/19/18 [History] Follow up Appointment(s)/Referral(s): [facility], [REFERRING] - Enoch Flores MD [Primary Care Provider] - 01/07/19 (Office will call pts mother with time of visit.) [facility] Visiting Nurse, [NON-STAFF] - 1-2 Days Patient Instructions/Handouts: Urinary Tract Infection in Men (ED) Activity/Diet/Wound Care/Special Instructions: [facility] will deliver IV antibiotic supplies tonight to patient's home. [facility] will come to the home in the morning to initiate home IV antibiotic infusions. Cefepime antibiotic per Dr. Oreilly from ID Discharge Disposition: HOME SELF-CARE
== END 2019-01-03 15:18 | disposition home or self-care (01) ==
LOC: EC 11:09 → 3NMEDONC 11:29 → 4SSUR 17:28
PROVIDERS: ADMIT Hospitalist; ATTEND Hospitalist
DX: T83.518A Infection and inflammatory reaction due to other urinary catheter, initial encounter (principal); N30.90 Cystitis, unspecified without hematuria; B96.5 Pseudomonas (aeruginosa) (mallei) (pseudomallei) as the cause of diseases classified elsewhere; B96.20 Unspecified Escherichia coli [E. coli] as the cause of diseases classified elsewhere; K21.9 Gastro-esophageal reflux disease without esophagitis; D69.59 Other secondary thrombocytopenia; G40.909 Epilepsy, unspecified, not intractable, without status epilepticus; G82.50 Quadriplegia, unspecified; N31.9 Neuromuscular dysfunction of bladder, unspecified; R53.81 Other malaise; E66.9 Obesity, unspecified; Z68.27 Body mass index [BMI] 27.0-27.9, adult; Z87.2 Personal history of diseases of the skin and subcutaneous tissue; Z87.828 Personal history of other (healed) physical injury and trauma; Z87.440 Personal history of urinary (tract) infections; Z87.01 Personal history of pneumonia (recurrent); Z87.442 Personal history of urinary calculi; Z86.14 Personal history of Methicillin resistant Staphylococcus aureus infection; Z16.23 Resistance to quinolones and fluoroquinolones; Z16.24 Resistance to multiple antibiotics; Z74.01 Bed confinement status; Z88.2 Allergy status to sulfonamides; Z79.899 Other long term (current) drug therapy; Z82.5 Family history of asthma and other chronic lower respiratory diseases
CPT/HCPCS: 96361 ×3; 96366 ×2; 96367; 96365; 99284; 36415; 36410; 76937; 80048; 84100; 85025 ×2; 81001; 87040; 87086; 87077; 87186; G0378 ×3; C1751; J2543; J0692 ×2

== ENCOUNTER → 2019-02-08 | Outpatient (CLI) | payer MEDICARE, BC ==
[2019-02-08 16:09] LABS: Appearance,Urine Cloudy (Clear); Bacteria,Urine Moderate /hpf; Bilirubin,Urine Negative (Negative); Blood,Urine Trace (Negative); Color,Urine Light Yellow; Glucose,Urine (UA) Negative (Negative); Ketones,Urine Negative (Negative); Leukocyte Esterase,Urine Large (Negative); Nitrite,Urine Negative (Negative); PH, Urine 6.5 (5.0-8.0); Protein,Urine Negative (Negative); RBC,Urine 7 /hpf (0-5); Specific Gravity,Urine 1.004 (1.001-1.035); Squamous Epithelial Cell,Urine <1 /hpf (0-4); Urobilinogen,Urine <2.0 mg/dL (<2.0); WBC,Urine 95 /hpf (0-5)
== END | disposition home or self-care (01) ==
LOC: LABWHC1 15:09
PROVIDERS: ATTEND Nurse Practitioner Family
DX: N39.0 Urinary tract infection, site not specified (principal)
CPT/HCPCS: 81001; 87086

== ENCOUNTER 2020-08-24 19:41 | Inpatient (IN) | payer MEDICARE, BC ==
[2020-08-24] MEDS ORDERED: SODIUM CHLORIDE 0.9% 1,000 ML IV STA (19:49)
[2020-08-24 19:52] LABS: Glucose,Whole Blood 114 mg/dL (75-99)
--- NOTE | 2020-08-24 19:57 | ED ---
General Adult HPI - General Chief complaint: Syncope Stated complaint: Syncope Time Seen by Provider: 08/24/20 19:49 Source: patient, EMS, RN notes reviewed, old records reviewed Mode of arrival: EMS Limitations: no limitations - History of Present Illness Initial comments: 54-year-old male who had presented for lightheadedness, near-syncope, and hypote nsion. Patient has history of quadriplegia status post cervical spine injury. He states he just completed antibiotics approximately one week ago for urinary tract infection. He was noted by paramedics to be hypotensive blood pressure in the 60s. Additionally he was tachycardic. He states overall he does not feel too bad. He denies chest pain or dyspnea. Denies significant cough. Denies abdominal pain nausea vomiting states he's been eating and drinking well but may have not had enough to drink. - Related Data Home Medications Medication Instructions Recorded Confirmed levETIRAcetam [Keppra Xr] 500 mg PO DAILY 08/19/18 08/24/20 Atorvastatin [Lipitor] 10 mg PO HS 08/24/20 08/24/20 Hydrocortisone Oint 1 applic TOPICAL DAILY PRN 08/24/20 08/24/20 [Hydrocortisone 2.5% Oint] Allergies Allergy/AdvReac Type Severity Reaction Status Date / Time Sulfa (Sulfonamide Allergy Rash/Hives Verified 08/24/20 20:45 Antibiotics) Review of Systems ROS Statement: Those systems with pertinent positive or pertinent negative responses have been documented in the HPI. ROS Other: All systems not noted in ROS Statement are negative. Past Medical History Past Medical History: GERD/Reflux, Pneumonia, Seizure Disorder, Skin Disorder Additional Past Medical History / Comment(s): Quadriplegic due to hockey-related injury toC5 through C6 in 1984, neurogenic bladder-uses condom cath, freqeunt UTIs/UTI with sepsis, kidney stones-surgically removed, past decubitus, recurrent L buttock decub,. last seizure 2016. History of Any Multi-Drug Resistant Organisms: MRSA, Other MDRO Date of last positivie culture/infection: 09/24/17 MRSA MDRO Source:: Foot-MRSA; Urine-MDRO Additional Past Surgical History / Comment(s): multiple surgeries/skin grafts for pressure sores, right ureteroscopy with lithotripsy, external sphincetrotomy 1990 and 1994, cystoscopy with irrigation of blood clots from bladder, trach. & peg tube/ since removed, picc lines Past Anesthesia/Blood Transfusion Reactions: No Reported Reaction Past Psychological History: No Psychological Hx Reported Smoking Status: Never smoker Past Alcohol Use History: None Reported Past Drug Use History: None Reported - Past Family History Mother Family Medical History: No Reported History Additional Family Medical History / Comment(s): Mother is healthy. Father Family Medical History: COPD Additional Family Medical History / Comment(s): Father at the age of 65yrs. General Exam Limitations: no limitations General appearance: alert, in no apparent distress Head exam: Present: atraumatic, normocephalic ENT exam: Present: mucous membranes dry Neck exam: Present: normal inspection. Absent: tenderness, meningismus Respiratory exam: Present: decreased breath sounds. Absent: respiratory dist ress Cardiovascular Exam: Present: normal rhythm, tachycardia GI/Abdominal exam: Present: soft. Absent: distended, tenderness, guarding, rebound Extremities exam: Present: normal inspection Neurological exam: Present: alert, oriented X3, motor sensory deficit (Patient is quadriplegic) Psychiatric exam: Present: normal affect, normal mood Skin exam: Present: warm, dry, intact Course Vital Signs 08/24/20 08/24/20 08/24/20 19:43 19:48 20:03 Temperature 98.3 F Pulse Rate 106 H 107 H 100 Pulse Rate [ 102 H Economic Analysis Director ] Respiratory 18 18 18 Rate Blood Pressure 116/89 68/57 58/45 O2 Sat by Pulse 95 96 Oximetry 08/24/20 08/24/20 08/24/20 20:30 21:00 21:15 Temperature Pulse Rate 100 98 92 Pulse Rate [ Economic Analysis Director ] Respiratory 18 18 18 Rate Blood Pressure 73/49 170/104 177/105 O2 Sat by Pulse 98 98 98 Oximetry EKG Findings - EKG Comments: EKG Findings:: EKG: Sinus tachycardia, left atrial enlargement, rate of 106, RI interval 156, QRS duration 76, QTC 435, no ST segment elevation, T-wave abnormality and RSR prime in V2 and V3. Medical Decision Making - Medical Decision Making 54-year-old male with hypotension, near syncope, recent diagnosis of UTI. Urinalysis showing continued UTI. Patient has a normal CBC no leukocytosis, relatively normal electrolytes. Given IV hydration with improvement in blood pressure. He has a normal lactic acid. His previous urine culture was suscep tible to cefepime. He is placed on cefepime and will be admitted for close monitoring. Case discussed with Dr. Oh who is covering for Dr. Galaviz. - Lab Data Result diagrams: 08/24/20 19:54 08/24/20 19:54 Lab Results 08/24/20 08/24/20 08/24/20 Range/Units 19:49 19:54 19:54 WBC 7.0 (3.8-10.6) k/uL RBC 4.48 (4.30-5.90) m/uL Hgb 13.0 (13.0-17.5) gm/dL Hct 37.6 L (39.0-53.0) % MCV 83.8 (80.0-100.0) fL MCH 29.1 (25.0-35.0) pg MCHC 34.7 (31.0-37.0) g/dL RDW 14.4 (11.5-15.5) % Plt Count 230 (150-450) k/uL MPV 7.2 Neutrophils % 63 % Lymphocytes % 26 % Monocytes % 7 % Eosinophils % 2 % Basophils % 1 % Neutrophils # 4.4 (1.3-7.7) k/uL Lymphocytes # 1.8 (1.0-4.8) k/uL Monocytes # 0.5 (0-1.0) k/uL Eosinophils # 0.1 (0-0.7) k/uL Basophils # 0.1 (0-0.2) k/uL PT 10.0 (9.0-12.0) sec INR 0.9 (<1.2) APTT 26.2 (22.0-30.0) sec Sodium (137-145) mmol/L Potassium (3.5-5.1) mmol/L Chloride (98-107) mmol/L Carbon Dioxide (22-30) mmol/L Anion Gap mmol/L BUN (9-20) mg/dL Creatinine (0.66-1.25) mg/dL Est GFR (CKD-EPI)AfAm (>60 ml/min/1.73 sqM) Est GFR (CKD-EPI)NonAf (>60 ml/min/1.73 sqM) Glucose (74-99) mg/dL POC Glucose (mg/dL) 114 H (75-99) mg/dL POC Glu Operations/Dispatch ID Latanya Stevens Plasma Lactic Acid Aaron (0.7-2.0) mmol/L Calcium (8.4-10.2) mg/dL Magnesium (1.6-2.3) mg/dL Total Bilirubin (0.2-1.3) mg/dL AST (17-59) U/L ALT (4-49) U/L Alkaline Phosphatase (38-126) U/L Troponin I (0.000-0.034) ng/mL Total Protein (6.3-8.2) g/dL Albumin (3.5-5.0) g/dL Urine Color Urine Appearance (Clear) Urine pH (5.0-8.0) Ur Specific [place] (1.001-1.035) Urine Protein (Negative) Urine Glucose (UA) (Negative) Urine Ketones (Negative) Urine Blood (Negative) Urine Nitrite (Negative) Urine Bilirubin (Negative) Urine Urobilinogen (<2.0) mg/dL Ur Leukocyte Esterase (Negative) Urine RBC (0-5) /hpf Urine WBC (0-5) /hpf Urine WBC Clumps (None) /hpf Ur Squamous Epith Cells (0-4) /hpf Urine Bacteria (None) /hpf 08/24/20 08/24/20 08/24/20 Range/Units 19:54 19:54 19:54 WBC (3.8-10.6) k/uL RBC (4.30-5.90) m/uL Hgb (13.0-17.5) gm/dL Hct (39.0-53.0) % MCV (80.0-100.0) fL MCH (25.0-35.0) pg MCHC (31.0-37.0) g/dL RDW (11.5-15.5) % Plt Count (150-450) k/uL MPV Neutrophils % % Lymphocytes % % Monocytes % % Eosinophils % % Basophils % % Neutrophils # (1.3-7.7) k/uL Lymphocytes # (1.0-4.8) k/uL Monocytes # (0-1.0) k/uL Eosinophils # (0-0.7) k/uL Basophils # (0-0.2) k/uL PT (9.0-12.0) sec INR (<1.2) APTT (22.0-30.0) sec Sodium 130 L (137-145) mmol/L Potassium 3.9 (3.5-5.1) mmol/L Chloride 98 (98-107) mmol/L Carbon Dioxide 18 L (22-30) mmol/L Anion Gap 14 mmol/L BUN 40 H (9-20) mg/dL Creatinine 1.20 (0.66-1.25) mg/dL Est GFR (CKD-EPI)AfAm 78 (>60 ml/min/1.73 sqM) Est GFR (CKD-EPI)NonAf 68 (>60 ml/min/1.73 sqM) Glucose 109 H (74-99) mg/dL POC Glucose (mg/dL) (75-99) mg/dL POC Glu Operations/Dispatch ID Plasma Lactic Acid Aaron (0.7-2.0) mmol/L Calcium 9.5 (8.4-10.2) mg/dL Magnesium 1.8 (1.6-2.3) mg/dL Total Bilirubin 0.7 (0.2-1.3) mg/dL AST 35 (17-59) U/L ALT 38 (4-49) U/L Alkaline Phosphatase 62 (38-126) U/L Troponin I <0.012 (0.000-0.034) ng/mL Total Protein 7.0 (6.3-8.2) g/dL Albumin 4.0 (3.5-5.0) g/dL Urine Color Light Yellow Urine Appearance Cloudy (Clear) Urine pH 6.0 (5.0-8.0) Ur Specific [place] 1.006 (1.001-1.035) Urine Protein Trace H (Negative) Urine Glucose (UA) Negative (Negative) Urine Ketones Negative (Negative) Urine Blood Small H (Negative) Urine Nitrite Negative (Negative) Urine Bilirubin Negative (Negative) Urine Urobilinogen <2.0 (<2.0) mg/dL Ur Leukocyte Esterase Large H (Negative) Urine RBC 30 H (0-5) /hpf Urine WBC 141 H (0-5) /hpf Urine WBC Clumps Moderate H (None) /hpf Ur Squamous Epith Cells <1 (0-4) /hpf Urine Bacteria Moderate H (None) /hpf 05/17/21 Range/Units 19:54 WBC (3.8-10.6) k/uL RBC (4.30-5.90) m/uL Hgb (13.0-17.5) gm/dL Hct (39.0-53.0) % MCV (80.0-100.0) fL MCH (25.0-35.0) pg MCHC (31.0-37.0) g/dL RDW (11.5-15.5) % Plt Count (150-450) k/uL MPV Neutrophils % % Lymphocytes % % Monocytes % % Eosinophils % % Basophils % % Neutrophils # (1.3-7.7) k/uL Lymphocytes # (1.0-4.8) k/uL Monocytes # (0-1.0) k/uL Eosinophils # (0-0.7) k/uL Basophils # (0-0.2) k/uL PT (9.0-12.0) sec INR (<1.2) APTT (22.0-30.0) sec Sodium (137-145) mmol/L Potassium (3.5-5.1) mmol/L Chloride (98-107) mmol/L Carbon Dioxide (22-30) mmol/L Anion Gap mmol/L BUN (9-20) mg/dL Creatinine (0.66-1.25) mg/dL Est GFR (CKD-EPI)AfAm (>60 ml/min/1.73 sqM) Est GFR (CKD-EPI)NonAf (>60 ml/min/1.73 sqM) Glucose (74-99) mg/dL POC Glucose (mg/dL) (75-99) mg/dL POC Glu Operations/Dispatch ID Plasma Lactic Acid Aaron 1.5 (0.7-2.0) mmol/L Calcium (8.4-10.2) mg/dL Magnesium (1.6-2.3) mg/dL Total Bilirubin (0.2-1.3) mg/dL AST (17-59) U/L ALT (4-49) U/L Alkaline Phosphatase (38-126) U/L Troponin I (0.000-0.034) ng/mL Total Protein (6.3-8.2) g/dL Albumin (3.5-5.0) g/dL Urine Color Urine Appearance (Clear) Urine pH (5.0-8.0) Ur Specific [place] (1.001-1.035) Urine Protein (Negative) Urine Glucose (UA) (Negative) Urine Ketones (Negative) Urine Blood (Negative) Urine Nitrite (Negative) Urine Bilirubin (Negative) Urine Urobilinogen (<2.0) mg/dL Ur Leukocyte Esterase (Negative) Urine RBC (0-5) /hpf Urine WBC (0-5) /hpf Urine WBC Clumps (None) /hpf Ur Squamous Epith Cells (0-4) /hpf Urine Bacteria (None) /hpf Disposition Clinical Impression: UTI (urinary tract infection), Quadriplegia and quadriparesis, Acute urinary tract infection, Dehydration Disposition: ADMITTED IP TO THIS HOSP Condition: Stable Is patient prescribed a controlled substance at d/c from ED?: No Referrals: None,Stated [REFERRING] - 1-2 days Decision to Admit Reason: Admit from EC Decision Date: 08/24/20 Decision Time: 21:49
[2020-08-24 20:11] LABS: Basophils # (A) 0.1 k/uL (0-0.2); Basophils % (A) 1 %; Eosinophils # (A) 0.1 k/uL (0-0.7); Eosinophils % (A) 2 %; HCT 37.6 % (39.0-53.0); Lymphocytes # (A) 1.8 k/uL (1.0-4.8); Lymphocytes % (A) 26 %; MCH 29.1 pg (25.0-35.0); MCHC 34.7 g/dL (31.0-37.0); MCV 83.8 fL (80.0-100.0); Mean Platelet Volume 7.2; Monocytes # (A) 0.5 k/uL (0-1.0); Monocytes % (A) 7 %; Neutrophils # (A) 4.4 k/uL (1.3-7.7); Neutrophils % (A) 63 %; Platelet Count 230 k/uL (150-450); RBC 4.48 m/uL (4.30-5.90); RDW 14.4 % (11.5-15.5)
[2020-08-24 20:17] LABS: Appearance,Urine Cloudy (Clear); Bacteria,Urine Moderate /hpf; Bilirubin,Urine Negative (Negative); Blood,Urine Small (Negative); Color,Urine Light Yellow; Glucose,Urine (UA) Negative (Negative); Ketones,Urine Negative (Negative); Leukocyte Esterase,Urine Large (Negative); Nitrite,Urine Negative (Negative); Protein,Urine Trace (Negative); RBC,Urine 30 /hpf (0-5); Specific Gravity,Urine 1.006 (1.001-1.035); Squamous Epithelial Cell,Urine <1 /hpf (0-4); Urobilinogen,Urine <2.0 mg/dL (<2.0); WBC,Urine 141 /hpf (0-5)
[2020-08-24 20:21] LABS: Calcium 9.5 mg/dL (8.4-10.2); Magnesium 1.8 mg/dL (1.6-2.3); Potassium 3.9 mmol/L (3.5-5.1); Total Bilirubin 0.7 mg/dL (0.2-1.3)
[2020-08-24 20:39] LABS: INR 0.9 (<1.2); Partial Thromboplastin Time 26.2 sec (22.0-30.0)
[2020-08-24] MEDS ORDERED: CEFEPIME 2 GM in SODIUM CHLORIDE 0.9% 100 ML IVPB STA (20:46)
--- NOTE | 2020-08-24 21:05 | XR ---
EXAMINATION TYPE: XR chest 1V portable DATE OF EXAM: 08/24/2020 COMPARISON: Chest x-ray 08/24/2018 HISTORY: Syncope TECHNIQUE: Single frontal view of the chest is obtained. FINDINGS: Exam is stable. Cardiac mediastinal silhouette is unchanged accounting for technique, nacho ent is rotated. No evident airspace disease, pneumothorax, or pleural effusion. IMPRESSION: No acute process. Stable exam
[2020-08-24] MEDS ORDERED: ACETAMINOPHEN TAB 325 MG TAB PO PRN (21:45)
[2020-08-24] MEDS ORDERED: NALOXONE 0.4 MG/ML 1 ML VIAL IV PRN (21:45)
[2020-08-24] MEDS: SODIUM CHLORIDE 0.9% 1,000 ML IV SCH (22:02)
[2020-08-25] MEDS: CEFEPIME 2 GM in SODIUM CHLORIDE 0.9% 100 ML IVPB SCH ×3 (01:16→22:20)
[2020-08-25] MEDS: levETIRAcetam 250 MG TAB PO SCH ×2 (09:15→20:25)
[2020-08-25] MEDS ORDERED: HYDROCORTISONE 1% OINT 28.35 GM TUBE TOPICAL PRN (10:40)
[2020-08-25] MEDS: ENOXAPARIN 40 MG/0.4 ML SYRINGE SQ SCH (14:17)
[2020-08-25] MEDS: SODIUM CHLORIDE 0.9% 1,000 ML IV SCH (16:06)
--- NOTE | 2020-08-25 18:26 | P.HPIM ---
History of Present Illness H&P Date: 08/25/20 Chief Complaint: Low blood pressure History of presenting complaint: This is a 54-year-old patient being followed by visiting physicians Dr. Flores.. 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 has a chronic neurogenic bladder uses a condom catheter, with frequent UTIs. kidney stones. previous decubitus ulcers. Patient is a bowel program with suppository every other day. Sometimes has to manually evacuated /stool. Recently just completed a course of antibiotic through his family doctor. Urine culture from August 06 showed E. coli and pseudomonas aeruginosa. Patient now presents with not feeling well low blood pressure recorded and and even passed out. There is no seizure activity noted. No tongue biting. Has just not been feeling right. No reported fever and chills. Appetite is fair. Needs assistance with feeding. Review of systems: GEN.: Tired EYES: None HEENT: None NECK: None RESPIRATORY: None CARDIOVASCULAR: None GASTROINTESTINAL: As above GENITOURINARY: Condom catheter MUSCULOSKELETAL: None LYMPHATICS: None HEMATOLOGICAL: None PSYCHIATRY: None NEUROLOGICAL: Minimal sensation in lower extremity, contraction of the lower limbs. Weakness of the upper arms Social history: Does not smoke or drink alcohol. Lives at home. Mother and brother both caregi vers. Patient is bedbound uses a lift to wheelchair. Needs assistance with eating. Family history: Reviewed, noncontributory to presentation Physical examination: VITAL SIGNS: 98.3, 106, 18, 116/89, 95% on room air GENERAL: BMI 27.1, laying in bed awake EYES: Pupils equal. Conjunctiva normal. HEENT: External appearance of nose and ears normal, oral cavity grossly normal. NECK: JVD unable to assess; masses not palpable. HEART: First and second heart sounds are normal; no edema. LUNGS: Respiratory rate normal; clear to auscultation. ABDOMEN: Soft, nontender, liver spleen not palpable, no masses palpable, condom catheter PSYCH: Alert and oriented x3; mood and affect normal. NEUROLOGICAL: Cranial nerves grossly intact; no facial asymmetry, 0/5 power of the lower extremity, lower extremities contracted. Decreased power in upper extremity. LYMPHATICS: No lymph nodes palpable in the axilla and neck INVESTIGATIONS, reviewed in the clinical context: WBC 7 hemoglobin 13 platelets 2:30 sodium 1:30 potassium 3.9 bun 40 creatinine 1.20 UA positive for leukoesterase, WBC bacteria Coronavirus [PCR)-not detected Previous labs: Urine culture from 08/06/2020 showed E. coli and Pseudomonas aeruginosa. Assessment and plan: -Acute recurrent UTI from cystitis secondary to chronic catheter in a patient with underlying neurogenic bladder with cultures positive for pseudomonas aer uginosa and E. coli, recently in August 06 Patient started on IV cefepime. Repeat cultures pending -Hyponatremia suspect hypovolemic Give IV fluids. Follow labs -GERD -Chronic seizure disorder. Episode of passing out. Continue Keppra. Check EEG -Quadriplegia due to C5-C6 injury in 1994 Requires a left for transfers -Chronic neurogenic bladder uses a condom catheter -Chronic medical debility Care was discussed with the patient. IV fluids. IV cefepime. Urine culture repeated. 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 History of Any Multi-Drug Resistant Organisms: MRSA, Other MDRO Date of last positivie culture/infection: 09/24/17 MRSA MDRO Source:: Foot-MRSA; Urine-MDRO Additional Past Surgical History / Comment(s): multiple surgeries/skin grafts for pressure sores, right ureteroscopy with lithotripsy, external sphincetrotomy 1990 and 1994, cystoscopy with irrigation of blood clots from bladder, trach. & peg tube/ since removed, picc lines Past Anesthesia/Blood Transfusion Reactions: No Reported Reaction Smoking Status: Never smoker - Past Family History Mother Family Medical History: No Reported History Additional Family Medical History / Comment(s): Mother is healthy. Father Family Medical History: COPD Additional Family Medical History / Comment(s): Father at the age of 65yrs. Medications and Allergies Home Medications Medication Instructions Recorded Confirmed Type levETIRAcetam [Keppra Xr] 500 mg PO DAILY 08/19/18 08/24/20 History Atorvastatin [Lipitor] 10 mg PO HS 08/24/20 08/24/20 History Hydrocortisone Oint 1 applic TOPICAL DAILY PRN 08/24/20 08/24/20 History [Hydrocortisone 2.5% Oint] Allergies Allergy/AdvReac Type Severity Reaction Status Date / Time Sulfa (Sulfonamide Allergy Rash/Hives Verified 08/24/20 20:45 Antibiotics) Physical Exam Vitals: Vital Signs Temp Pulse Pulse Resp BP Pulse Ox 08/25/20 08:00 66 18 96/64 98 08/25/20 07:00 62 14 111/96 97 08/25/20 06:00 12 98 08/25/20 05:00 85 14 94/75 96 08/25/20 04:35 65 14 77/58 95 08/25/20 02:00 75 16 98 08/25/20 01:00 80 18 97 08/25/20 00:00 64 14 70/54 97 08/24/20 22:00 104 H 18 60/37 96 08/24/20 21:15 92 18 177/105 98 08/24/20 21:00 98 18 170/104 98 08/24/20 20:30 100 18 73/49 98 08/24/20 20:03 100 102 H 18 58/45 96 08/24/20 19:48 107 H 18 68/57 08/24/20 19:43 98.3 F 106 H 18 116/89 95 Intake and Output 08/24/20 08/25/20 08/25/20 22:59 06:59 14:59 Other: Weight 90.718 kg 90.718 kg Results CBC & Chem 7: 08/24/20 19:54 08/24/20 19:54 Labs: Abnormal Lab Results - Last 24 Hours (Table) 08/24/20 08/24/20 08/24/20 Range/Units 19:49 19:54 19:54 Hct 37.6 L (39.0-53.0) % Sodium 130 L (137-145) mmol/L Carbon Dioxide 18 L (22-30) mmol/L BUN 40 H (9-20) mg/dL Glucose 109 H (74-99) mg/dL POC Glucose (mg/dL) 114 H (75-99) mg/dL Urine Protein (Negative) Urine Blood (Negative) Ur Leukocyte Esterase (Negative) Urine RBC (0-5) /hpf Urine WBC (0-5) /hpf Urine WBC Clumps (None) /hpf Urine Bacteria (None) /hpf 08/24/20 Range/Units 19:54 Hct (39.0-53.0) % Sodium (137-145) mmol/L Carbon Dioxide (22-30) mmol/L BUN (9-20) mg/dL Glucose (74-99) mg/dL POC Glucose (mg/dL) (75-99) mg/dL Urine Protein Trace H (Negative) Urine Blood Small H (Negative) Ur Leukocyte Esterase Large H (Negative) Urine RBC 30 H (0-5) /hpf Urine WBC 141 H (0-5) /hpf Urine WBC Clumps Moderate H (None) /hpf Urine Bacteria Moderate H (None) /hpf Thrombosis Risk Factor Assmnt - Choose All That Apply Any of the Below Risk Factors Present?: Yes Each Factor Represents 1 point: Age 41-60 years, Medical pt on bed rest, Obesity (BMI >25) Other Risk Factors: Yes Each Risk Factor Represents 2 Points: Patient confined to bed Other congenital or acquired thrombophilia - If yes, enter type in comment: No Thrombosis Risk Factor Assessment Total Risk Factor Score: 5 Thrombosis Risk Factor Assessment Level: High Risk
[2020-08-25] MEDS: LACTATED RINGERS 1,000 ML IV SCH ×2 (20:25→21:55)
[2020-08-25] MEDS: ATORVASTATIN 10 MG TAB PO SCH (20:25)
[2020-08-26] MEDS: DIAZEPAM 5 MG/ML 2 ML INJ IVP PRN (00:31)
[2020-08-26] MEDS: LACTATED RINGERS 1,000 ML IV SCH ×2 (03:37→14:21)
[2020-08-26] MEDS: CEFEPIME 2 GM in SODIUM CHLORIDE 0.9% 100 ML IVPB SCH ×3 (05:04→20:58)
[2020-08-26 08:21] LABS: Calcium 8.3 mg/dL (8.4-10.2); Potassium 3.7 mmol/L (3.5-5.1)
[2020-08-26] MEDS: ENOXAPARIN 40 MG/0.4 ML SYRINGE SQ SCH (08:43)
[2020-08-26] MEDS: levETIRAcetam 250 MG TAB PO SCH ×2 (08:44→20:58)
[2020-08-26] MEDS: SODIUM BICARBONATE TAB 650 MG TAB PO SCH ×3 (14:21→23:20)
--- NOTE | 2020-08-26 18:16 | P.PN ---
Progress Note - Text Progress Note Date: 08/26/20 Chief Complaint: Low blood pressure History of presenting complaint: This is a 54-year-old patient being followed by visiting physicians Dr. Flores.. 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 has a chronic neurogenic bladder uses a condom catheter, with frequent UTIs. kidney stones. previous decubitus ulcers. Patient is a bowel program with suppository every other day. Sometimes has to manually evacuated /stool. Recently just completed a course of antibiotic through his family doctor. Urine culture from August 06 showed E. coli and pseudomonas aeruginosa. Patient now pr esents with not feeling well low blood pressure recorded and and even passed out. There is no seizure activity noted. No tongue biting. Has just not been feeling right. No reported fever and chills. Appetite is fair. Needs assistance with feeding. Admitted with acute UTI with cystitis. Started on IV fluids. IV cefepime. Today: Feeling a bit better. Oral intake good. On IV antibiotics. No fever Review of systems: Was done for constitutional, cardiovascular, GI, pulmonary. relevant finding as above Active Medications Acetaminophen (Acetaminophen Tab 325 Mg Tab) 650 mg PO Q6HR PRN PRN Reason: Mild Pain or Fever > 100.5 Atorvastatin Calcium (Atorvastatin 10 Mg Tab) 10 mg PO HS [facility] Last Admin: 08/25/20 20:25 Dose: 10 mg Documented by: Diazepam (Diazepam 5 Mg/Ml 2 Ml Inj) 5 mg IVP TID PRN PRN Reason: Muscle Spasm Last Admin: 08/26/20 00:31 Dose: 5 mg Documented by: Enoxaparin Sodium (Enoxaparin 40 Mg/0.4 Ml Syringe) 40 mg SQ DAILY [facility] Last Admin: 08/26/20 08:43 Dose: 40 mg Documented by: Hydrocortisone (Hydrocortisone 1% Oint 28.35 Gm Tube) 1 applic TOPICAL DAILY PRN PRN Reason: Rash Cefepime HCl 2 gm/ Sodium (Chloride) 100 mls @ 25 mls/hr IVPB Q8H [facility] Last Admin: 08/26/20 14:21 Dose: 25 mls/hr Documented by: Lactated Ringer's (Lactated Ringers) 1,000 mls @ 130 mls/hr IV .[id number] [facility] Last Admin: 08/26/20 14:21 Dose: 130 mls/hr Documented by: Levetiracetam (Levetiracetam 250 Mg Tab) 250 mg PO BID [facility] Last Admin: 08/26/20 08:44 Dose: 250 mg Documented by: Naloxone HCl (Naloxone 0.4 Mg/Ml 1 Ml Vial) 0.2 mg IV Q2M PRN PRN Reason: Opioid Reversal Sodium Bicarbonate (Sodium Bicarbonate Tab 650 Mg Tab) 650 mg PO TID [facility] Last Admin: 08/26/20 17:13 Dose: 650 mg Documented by: Social history: Does not smoke or drink alcohol. Lives at home. Mother and brother both caregivers. Patient is bedbound uses a lift to wheelchair. Needs assistance with eating. Family history: Reviewed, noncontributory to presentation Physical examination: VITAL SIGNS: 97.7, 70, 16, 1 25 x 77, 96% room air GENERAL: BMI 27.1, laying in bed awake EYES: Pupils equal. Conjunctiva normal. NECK: JVD unable to assess; masses not palpable. HEART: First and second heart sounds are normal; no edema. LUNGS: Respiratory rate normal; clear to auscultation. ABDOMEN: Soft, nontender, liver spleen not palpable, no masses palpable, condom catheter PSYCH: Alert and oriented x3; mood and affect normal. NEUROLOGICAL: Cranial nerves grossly intact; no facial asymmetry, 0/5 power of the lower extremity, lower extremities contracted. Decreased power in upper extremity. INVESTIGATIONS, reviewed in the clinical context: August 26: Potassium 3.7 creatinine 1.16 WBC 7 hemoglobin 13 platelets 2:30 sodium 1:30 potassium 3.9 bun 40 creatinine 1.20 UA positive for leukoesterase, WBC bacteria Coronavirus [PCR)-not detected Previous labs: Urine culture from 08/06/2020 showed E. coli and Pseudomonas aeruginosa. Assessment and plan: -Acute recurrent UTI from cystitis secondary to chronic catheter in a patient with underlying neurogenic bladder with cultures positive for pseudomonas aeruginosa and E. coli, recently in August 06 Patient started on IV cefepime. Repeat cultures pending -Hyponatremia suspect hypovolemic Give IV fluids. Follow labs -GERD -Chronic seizure disorder. Episode of passing out. Continue Keppra. Check EEG -Quadriplegia due to C5-C6 injury in 1994 Requires a left for transfers -Chronic neurogenic bladder uses a condom catheter -Chronic medical debility Care was discussed with the patient. Continue with IV fluids IV cefepime. Pending urine culture
--- NOTE | 2020-08-26 19:55 | CONS ---
CONSULTATION DATE OF SERVICE: 08/26/2020 REASON FOR CONSULTATION: Urinary tract infection. HISTORY OF PRESENT ILLNESS: The patient is a 54-year-old male with a past medical history significant for quadriplegia status post cervical spine injury in this patient who did have a history of recurrent urinary tract infection. He uses a condom catheter. The patient apparently has recently completed a course of oral antibiotic therapy. EMS was called to the patient's home, as the patient was noticed to have a near-syncopal episode. The patient was noticed to be hypotensive with systolic in the 60s and tachycardic. The patient was evaluated by the ER physician. On arrival in the ER, the patient was afebrile, and no fever has been recorded subsequently. The patient did have a normal white count. BUN was slightly elevated. He did have a positive UA with concern for a symptomatic urinary tract infection. The patient has been started on cefepime. Infectious Disease was consulted for further management of antibiotic therapy. REVIEW OF SYSTEMS: Positive points have been mentioned in the HPI. Rest of the systems are negative. 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 PAST SURGICAL HISTORY: Multiple surgeries/skin grafts for pressure sores, right ureteroscopy with lithotripsy, sphincterotomy, cystoscopy, irrigation of the bladder. SOCIAL HISTORY: Denies smoking, drinking and drug use. FAMILY HISTORY: Positive with history of COPD. ALLERGIES: SULFA. MEDICATIONS: The patient is currently on Tylenol, Lipitor, cefepime, Valium, Lovenox, Keppra, Narcan. PHYSICAL EXAMINATION: Blood pressure 142/89 with a pulse of 58, temperature 97.5. He is 97% on room air. General description is a middle-aged male lying in bed in no distress. No tachypnea or accessory muscle of respiration use. HEENT: Examination shows no pallor or scleral icterus. Oral mucous membrane is dry. NECK: Trachea is central. No thyromegaly. LUNGS: Unlabored breathing. Clear to auscultation anteriorly. No wheeze or crackle. HEART: S1, S2. Regular rate and rhythm. ABDOMEN: Soft. No tenderness. No guarding or rigidity. EXTREMITIES: No edema of the feet. SKIN EXAMINATION: No rash or mass palpable. Neurologically the patient is awake, alert, oriented x3. Mood and affect normal. LABS: Hemoglobin is 13, white count 7.0, BUN of 35, creatinine 1.16. Urine has been positive, showing Gram-negative. Blood culture so far negative. DIAGNOSTIC IMPRESSION AND PLAN: Patient admitted to hospital with weakness, possible syncope and concern for urinary tract infection in this patient with a history of recurrent UTIs and will need to cover for possible resistant Gram-negative as the likely pathogen, in view of multiple exposure to antibiotics. PLAN: 1. The patient's Mclaughlin catheter will be changed and we will obtain a urine culture from the new Mclaughlin. 2. Patient to continue on cefepime 2 grams q.8 hours. 3. Will follow the clinical condition and culture to further adjust medication if needed. Thank you for this consultation. Will follow this patient along with you. LAZARO / MELISSAN: [id number] /
[2020-08-26] MEDS: ATORVASTATIN 10 MG TAB PO SCH (20:58)
--- NOTE | 2020-08-27 00:50 | EEG ---
ELECTROENCEPHALOGRAM REPORT DATE OF SERVICE: 08/26/2020. PREAMBLE: This is a 54-year-old male who came to the ER after having syncopal episode. He has a history of hockey accident in 1984, leaving him paralyzed from the chest down. He started having seizures about 5-8 years ago when he had a UTI and became septic. Uncertain if he had a seizure yesterday. No urinary incontinence or tongue bite. EEG FINDINGS: This is a 21 channel routine EEG recording in a patient utilizing 10/20 international system with referential and bipolar montages. Background consists of well developed, well regulated, moderate voltage activity in 8-9 hertz alpha. Background is posterior dominant and reactive to eye opening and closing. Photic driving response was seen with some flash frequencies. Mild drowsiness was seen with the presence of bilaterally symmetric theta frequency rhythm, but deeper stages of sleep were not seen. No focal or generalized epileptiform activity was seen. EKG channel showed mild arrhythmia. IMPRESSION: This is a normal awake and drowsy EEG. No focal, lateralized, or epileptiform activity was seen. MMODL / IJN: [id number] /
[2020-08-27] MEDS: LACTATED RINGERS 1,000 ML IV SCH ×4 (01:35→18:13)
[2020-08-27] MEDS: CEFEPIME 2 GM in SODIUM CHLORIDE 0.9% 100 ML IVPB SCH ×3 (06:03→22:03)
[2020-08-27] MEDS: SODIUM BICARBONATE TAB 650 MG TAB PO SCH ×3 (08:12→22:03)
[2020-08-27] MEDS: levETIRAcetam 250 MG TAB PO SCH ×2 (08:13→22:03)
[2020-08-27] MEDS: ENOXAPARIN 40 MG/0.4 ML SYRINGE SQ SCH (08:13)
--- NOTE | 2020-08-27 12:17 | P.PN ---
Progress Note - Text Progress Note Date: 08/27/20 Chief Complaint: Low blood pressure History of presenting complaint: This is a 54-year-old patient being followed by visiting physicians Dr. Flores.. 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 has a chronic neurogenic bladder uses a condom catheter, with frequent UTIs. kidney stones. previous decubitus ulcers. Patient is a bowel program with suppository every other day. Sometimes has to manually evacuated /stool. Recently just completed a course of antibiotic through his family doctor. Urine culture from August 06 showed E. coli and pseudomonas aeruginosa. Patient now pr esents with not feeling well low blood pressure recorded and and even passed out. There is no seizure activity noted. No tongue biting. Has just not been feeling right. No reported fever and chills. Appetite is fair. Needs assistance with feeding. Admitted with acute UTI with cystitis. Started on IV fluids. IV cefepime. Today: Urine culture pending. Starting a diet. No further fever. Blood pressure better. Review of systems: Was done for constitutional, cardiovascular, GI, pulmonary. relevant finding as above Active Medications Acetaminophen (Acetaminophen Tab 325 Mg Tab) 650 mg PO Q6HR PRN PRN Reason: Mild Pain or Fever > 100.5 Atorvastatin Calcium (Atorvastatin 10 Mg Tab) 10 mg PO HS [facility] Last Admin: 08/26/20 20:58 Dose: 10 mg Documented by: Diazepam (Diazepam 5 Mg/Ml 2 Ml Inj) 5 mg IVP TID PRN PRN Reason: Muscle Spasm Last Admin: 08/26/20 00:31 Dose: 5 mg Documented by: Enoxaparin Sodium (Enoxaparin 40 Mg/0.4 Ml Syringe) 40 mg SQ DAILY [facility] Last Admin: 08/27/20 08:13 Dose: 40 mg Documented by: Hydrocortisone (Hydrocortisone 1% Oint 28.35 Gm Tube) 1 applic TOPICAL DAILY PRN PRN Reason: Rash Cefepime HCl 2 gm/ Sodium (Chloride) 100 mls @ 25 mls/hr IVPB Q8H [facility] Last Admin: 08/27/20 06:03 Dose: 25 mls/hr Documented by: Lactated Ringer's (Lactated Ringers) 1,000 mls @ 130 mls/hr IV .[id number] [facility] Last Admin: 08/27/20 06:03 Dose: 130 mls/hr Documented by: Levetiracetam (Levetiracetam 250 Mg Tab) 250 mg PO BID [facility] Last Admin: 08/27/20 08:13 Dose: 250 mg Documented by: Naloxone HCl (Naloxone 0.4 Mg/Ml 1 Ml Vial) 0.2 mg IV Q2M PRN PRN Reason: Opioid Reversal Sodium Bicarbonate (Sodium Bicarbonate Tab 650 Mg Tab) 650 mg PO TID [facility] Last Admin: 08/27/20 08:12 Dose: 650 mg Documented by: Social history: Does not smoke or drink alcohol. Lives at home. Mother and brother both caregivers. Patient is bedbound uses a lift to wheelchair. Needs assistance with eating. Family history: Reviewed, noncontributory to presentation Physical examination: VITAL SIGNS: 97.8, 65, 16, 115/78, 99% room air GENERAL: BMI 27.1, laying in bed comfortable EYES: Pupils equal. Conjunctiva normal. NECK: JVD unable to assess; masses not palpable. HEART: First and second heart sounds are normal; no edema. LUNGS: Respiratory rate normal; clear to auscultation. ABDOMEN: Soft, nontender, liver spleen not palpable, no masses palpable, condom catheter PSYCH: Alert and oriented x3; mood and affect normal. NEUROLOGICAL: Cranial nerves grossly intact; no facial asymmetry, 0/5 power of the lower extremity, lower extremities contracted. Decreased power in upper extremity. INVESTIGATIONS, reviewed in the clinical context: Urine culture: Gram-negative bacilli EEG: Negative for seizure August 26: Potassium 3.7 creatinine 1.16 WBC 7 hemoglobin 13 platelets 2:30 sodium 1:30 potassium 3.9 bun 40 creatinine 1.20 UA positive for leukoesterase, WBC bacteria Coronavirus [PCR)-not detected Previous labs: Urine culture from 08/06/2020 showed E. coli and Pseudomonas aeruginosa. Assessment and plan: -Acute recurrent UTI from cystitis secondary to chronic catheter in a patient with underlying neurogenic bladder with cultures positive for pseudomonas aeruginosa and E. coli, recently in August 06 Patient started on IV cefepime. Repeat cultures pending -Hyponatremia suspect hypovolemic-improving Give IV fluids. Follow labs -Syncope likely vasovagal from dehydration and low blood pressure Given IV fluids -Metabolic acidosis Oral sodium bicarbonate -GERD -Chronic seizure disorder. Continue Keppra. EEG negative for seizure activity -Quadriplegia due to C5-C6 injury in 1994 Requires a left for transfers -Chronic neurogenic bladder uses a condom catheter -Chronic medical debility discussed with the patient. Continue with IV fluids IV cefepime. Urine culture pending.
--- NOTE | 2020-08-27 17:26 | PN ---
PROGRESS NOTE DATE OF SERVICE: 08/27/2020 REASON FOR FOLLOWUP: Urinary tract infection. INTERVAL HISTORY: The patient is currently afebrile. The patient is feeling better, breathing comfortably. The patient denies having any chest pain, shortness of breath or cough. No nausea, no vomiting, no abdominal pain or diarrhea. PHYSICAL EXAMINATION: Blood pressure 113/77 with a pulse of 74, temperature 97.6. He is 96% on room air. General description is a middle-aged male lying in bed in no distress. RESPIRATORY SYSTEM: Unlabored breathing. Clear to auscultation anteriorly. HEART: S1, S2. Regular rate and rhythm. ABDOMEN: Soft. No tenderness. EXTREMITIES: No edema of the feet. LABS: BUN of 35, creatinine 1.16. Urine showing Gram-negative. Blood culture so far negative. DIAGNOSTIC IMPRESSION AND PLAN: Patient admitted to hospital with weakness, concern for a symptomatic urinary tract infection. Urine showing Gram-negative, covered with cefepime. Will wait for the culture to finalize to determine discharge antibiotics. Continue supportive care. MMODL / IJN: [id number] /
[2020-08-27] MEDS: ATORVASTATIN 10 MG TAB PO SCH (22:03)
[2020-08-28] MEDS: CEFEPIME 2 GM in SODIUM CHLORIDE 0.9% 100 ML IVPB SCH ×3 (06:11→21:15)
[2020-08-28] MEDS: SODIUM BICARBONATE TAB 650 MG TAB PO SCH ×3 (08:33→21:15)
[2020-08-28] MEDS: levETIRAcetam 250 MG TAB PO SCH ×2 (08:33→21:15)
[2020-08-28] MEDS: ENOXAPARIN 40 MG/0.4 ML SYRINGE SQ SCH (08:33)
[2020-08-28] MEDS: LACTATED RINGERS 1,000 ML IV SCH (08:33)
[2020-08-28 08:44] LABS: African American GFR (CKD) >90 (>60 ml/min/1.73 sqM); Anion Gap 5 mmol/L; Blood Urea Nitrogen 26 mg/dL (9-20); Calcium 8.2 mg/dL (8.4-10.2); Carbon Dioxide 24 mmol/L (22-30); Chloride 106 mmol/L (98-107); Glucose 93 mg/dL (74-99); Non-African American GFR(CKD) >90 (>60 ml/min/1.73 sqM); Potassium 3.8 mmol/L (3.5-5.1); Sodium 135 mmol/L (137-145)
--- NOTE | 2020-08-28 15:44 | PN ---
PROGRESS NOTE DATE OF SERVICE: 08/28/2020 REASON FOR FOLLOWUP: Urinary tract infection. INTERVAL HISTORY: The patient is currently afebrile. The patient is breathing comfortably. Patient denies having any chest pain. No shortness of breath or cough. No nausea. No vomiting. No abdominal pain or diarrhea. PHYSICAL EXAMINATION: Blood pressure 95/60 with a pulse of 87, temperature 97.7. He is 98% on room air. General description is a middle-aged male lying in bed in no distress. RESPIRATORY SYSTEM: Unlabored breathing, clear to auscultation anteriorly. HEART: S1, S2. Regular rate and rhythm. ABDOMEN: Soft, no tenderness. LABS: BUN of 26, creatinine 0.91. E coli sensitive pathogen. Sensitivity on the Pseudomonas is still pending. DIAGNOSTIC IMPRESSION AND PLAN: Patient admitted to the hospital with urinary tract infection. Urine showing both Escherichia coli and Pseudomonas. We are still waiting for the Pseudomonas sensitivity to decide his discharge antibiotics. Responding to cefepime to continue. Mother at the bedside. Questions were answered. MMODL / IJN: [id number] /
--- NOTE | 2020-08-28 17:53 | P.PN ---
Progress Note - Text Progress Note Date: 08/28/20 Chief Complaint: Low blood pressure History of presenting complaint: This is a 54-year-old patient being followed by visiting physicians Dr. Flores.. 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 has a chronic neurogenic bladder uses a condom catheter, with frequent UTIs. kidney stones. previous decubitus ulcers. Patient is a bowel program with suppository every other day. Sometimes has to manually evacuated /stool. Recently just completed a course of antibiotic through his family doctor. Urine culture from August 06 showed E. coli and pseudomonas aeruginosa. Patient now pr esents with not feeling well low blood pressure recorded and and even passed out. There is no seizure activity noted. No tongue biting. Has just not been feeling right. No reported fever and chills. Appetite is fair. Needs assistance with feeding. Admitted with acute UTI with cystitis. Started on IV fluids. IV cefepime. Today: Urine culture pending. Oral intake is good. No fever no chills. Cultures are pending. Review of systems: Was done for constitutional, cardiovascular, GI, pulmonary. relevant finding as above Active Medications Acetaminophen (Acetaminophen Tab 325 Mg Tab) 650 mg PO Q6HR PRN PRN Reason: Mild Pain or Fever > 100.5 Atorvastatin Calcium (Atorvastatin 10 Mg Tab) 10 mg PO HS [facility] Last Admin: 08/27/20 22:03 Dose: 10 mg Documented by: Diazepam (Diazepam 5 Mg/Ml 2 Ml Inj) 5 mg IVP TID PRN PRN Reason: Muscle Spasm Last Admin: 08/26/20 00:31 Dose: 5 mg Documented by: Enoxaparin Sodium (Enoxaparin 40 Mg/0.4 Ml Syringe) 40 mg SQ DAILY [facility] Last Admin: 08/28/20 08:33 Dose: 40 mg Documented by: Hydrocortisone (Hydrocortisone 1% Oint 28.35 Gm Tube) 1 applic TOPICAL DAILY PRN PRN Reason: Rash Cefepime HCl 2 gm/ Sodium (Chloride) 100 mls @ 25 mls/hr IVPB Q8H [facility] Last Admin: 08/28/20 15:06 Dose: 25 mls/hr Documented by: Lactated Ringer's (Lactated Ringers) 1,000 mls @ 75 mls/hr IV .[id number] [facility] Last Admin: 08/28/20 08:33 Dose: 75 mls/hr Documented by: Levetiracetam (Levetiracetam 250 Mg Tab) 250 mg PO BID [facility] Last Admin: 08/28/20 08:33 Dose: 250 mg Documented by: Naloxone HCl (Naloxone 0.4 Mg/Ml 1 Ml Vial) 0.2 mg IV Q2M PRN PRN Reason: Opioid Reversal Sodium Bicarbonate (Sodium Bicarbonate Tab 650 Mg Tab) 650 mg PO TID [facility] Last Admin: 08/28/20 16:36 Dose: 650 mg Documented by: Social history: Does not smoke or drink alcohol. Lives at home. Mother and brother both caregivers. Patient is bedbound uses a lift to wheelchair. Needs assistance with eating. Family history: Reviewed, noncontributory to presentation Physical examination: VITAL SIGNS: 97.5, 76, 16, 132/87, 97% room air GENERAL:, laying in bed comfortable EYES: Pupils equal. Conjunctiva normal. NECK: JVD unable to assess; masses not palpable. HEART: First and second heart sounds are normal; no edema. LUNGS: Respiratory rate normal; clear to auscultation. ABDOMEN: Soft, nontender, liver spleen not palpable, no masses palpable, condom catheter PSYCH: Alert and oriented x3; mood and affect normal. NEUROLOGICAL: Cranial nerves grossly intact; no facial asymmetry, 0/5 power of the lower extremity, lower extremities contracted. Decreased power in upper extremity. INVESTIGATIONS, reviewed in the clinical context: Urine culture: E. coli and pseudomonas, sensitivity pending EEG: Negative for seizure August 26: Potassium 3.7 creatinine 1.16 WBC 7 hemoglobin 13 platelets 2:30 sodium 1:30 potassium 3.9 bun 40 creatinine 1.20 UA positive for leukoesterase, WBC bacteria Coronavirus [PCR)-not detected Previous labs: Urine culture from 08/06/2020 showed E. coli and Pseudomonas aeruginosa. Assessment and plan: -Acute recurrent UTI from cystitis secondary to chronic catheter in a patient with underlying neurogenic bladder with cultures positive for pseudomonas aeruginosa and E. coli, recently in August 06 Patient started on IV cefepime. Repeat cultures pending -Hyponatremia suspect hypovolemic-improving Give IV fluids. Follow labs -Syncope likely vasovagal from dehydration and low blood pressure Given IV fluids -Metabolic acidosis Oral sodium bicarbonate -GERD -Chronic seizure disorder. Continue Keppra. EEG negative for seizure activity -Quadriplegia due to C5-C6 injury in 1994 Requires a left for transfers -Chronic neurogenic bladder uses a condom catheter -Chronic medical debility I did reach out to the medical staff director Dr. Locke to see if he can get hold of the culture results. Not able to obtain the same. Discharged to be held until final results are obtained. Did discuss with Dr. Oreilly from ID.
[2020-08-28] MEDS: ATORVASTATIN 10 MG TAB PO SCH (21:15)
[2020-08-29] MEDS: LACTATED RINGERS 1,000 ML IV SCH ×3 (03:47→22:39)
[2020-08-29] MEDS: CEFEPIME 2 GM in SODIUM CHLORIDE 0.9% 100 ML IVPB SCH ×3 (06:49→20:58)
[2020-08-29] MEDS: levETIRAcetam 250 MG TAB PO SCH ×2 (08:51→20:57)
[2020-08-29] MEDS: SODIUM BICARBONATE TAB 650 MG TAB PO SCH ×3 (08:51→20:57)
[2020-08-29] MEDS: ENOXAPARIN 40 MG/0.4 ML SYRINGE SQ SCH (08:52)
--- NOTE | 2020-08-29 16:37 | P.PN ---
Progress Note - Text Progress Note Date: 08/29/20 Chief Complaint: Low blood pressure History of presenting complaint: This is a 54-year-old patient being followed by visiting physicians Dr. Flores.. 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 has a chronic neurogenic bladder uses a condom catheter, with frequent UTIs. kidney stones. previous decubitus ulcers. Patient is a bowel program with suppository every other day. Sometimes has to manually evacuated /stool. Recently just completed a course of antibiotic through his family doctor. Urine culture from August 06 showed E. coli and pseudomonas aeruginosa. Patient now pr esents with not feeling well low blood pressure recorded and and even passed out. There is no seizure activity noted. No tongue biting. Has just not been feeling right. No reported fever and chills. Appetite is fair. Needs assistance with feeding. Admitted with acute UTI with cystitis. Started on IV fluids. IV cefepime. Urine culture came back positive for E. coli and Pseudomonas aeruginosa. Today: Laying in bed. present at the bedside. Oral intake is good. No fever no chills. On IV cefepime. Review of systems: Was done for constitutional, cardiovascular, GI, pulmonary. relevant finding as above Active Medications Acetaminophen (Acetaminophen Tab 325 Mg Tab) 650 mg PO Q6HR PRN PRN Reason: Mild Pain or Fever > 100.5 Atorvastatin Calcium (Atorvastatin 10 Mg Tab) 10 mg PO HS [facility] Last Admin: 08/28/20 21:15 Dose: 10 mg Documented by: Diazepam (Diazepam 5 Mg/Ml 2 Ml Inj) 5 mg IVP TID PRN PRN Reason: Muscle Spasm Last Admin: 08/26/20 00:31 Dose: 5 mg Documented by: Enoxaparin Sodium (Enoxaparin 40 Mg/0.4 Ml Syringe) 40 mg SQ DAILY [facility] Last Admin: 08/29/20 08:52 Dose: 40 mg Documented by: Hydrocortisone (Hydrocortisone 1% Oint 28.35 Gm Tube) 1 applic TOPICAL DAILY PRN PRN Reason: Rash Cefepime HCl 2 gm/ Sodium (Chloride) 100 mls @ 25 mls/hr IVPB Q8H [facility] Last Admin: 08/29/20 15:45 Dose: 25 mls/hr Documented by: Lactated Ringer's (Lactated Ringers) 1,000 mls @ 75 mls/hr IV .[id number] [facility] Last Admin: 08/29/20 03:47 Dose: Not Given Documented by: Levetiracetam (Levetiracetam 250 Mg Tab) 250 mg PO BID [facility] Last Admin: 08/29/20 08:51 Dose: 250 mg Documented by: Naloxone HCl (Naloxone 0.4 Mg/Ml 1 Ml Vial) 0.2 mg IV Q2M PRN PRN Reason: Opioid Reversal Sodium Bicarbonate (Sodium Bicarbonate Tab 650 Mg Tab) 650 mg PO TID [facility] Last Admin: 08/29/20 16:15 Dose: 650 mg Documented by: Social history: Does not smoke or drink alcohol. Lives at home. Mother and brother both caregivers. Patient is bedbound uses a lift to wheelchair. Needs assistance with eating. Family history: Reviewed, noncontributory to presentation Physical examination: VITAL SIGNS: 97.8, 70, 16, blood pressure variable, 99% room air GENERAL:, laying in bed comfortable EYES: Pupils equal. Conjunctiva normal. NECK: JVD unable to assess; masses not palpable. HEART: First and second heart sounds are normal; no edema. LUNGS: Respiratory rate normal; clear to auscultation. ABDOMEN: Soft, nontender, liver spleen not palpable, no masses palpable, condom catheter PSYCH: Alert and oriented x3; mood and affect normal. NEUROLOGICAL: Cranial nerves grossly intact; no facial asymmetry, 0/5 power of the lower extremity, lower extremities contracted. Decreased power in upper extremity. INVESTIGATIONS, reviewed in the clinical context: Urine culture: E. coli and pseudomonas, EEG: Negative for seizure August 26: Potassium 3.7 creatinine 1.16 WBC 7 hemoglobin 13 platelets 2:30 sodium 1:30 potassium 3.9 bun 40 creatinine 1.20 UA positive for leukoesterase, WBC bacteria Coronavirus [PCR)-not detected Previous labs: Urine culture from 08/06/2020 showed E. coli and Pseudomonas aeruginosa. Assessment and plan: -Acute recurrent UTI from cystitis secondary to chronic catheter in a patient with underlying neurogenic bladder with cultures positive for pseudomonas aeruginosa and E. coli, . IV cefepime. Follow with ID -Hyponatremia suspect hypovolemic-improving Give IV fluids. Follow labs -Syncope likely vasovagal from dehydration and low blood pressure Given IV fluids -Metabolic acidosis Oral sodium bicarbonate -GERD -Chronic seizure disorder. Continue Keppra. EEG negative for seizure activity -Quadriplegia due to C5-C6 injury in 1994 Requires a left for transfers -Chronic neurogenic bladder uses a condom catheter -Chronic medical debility Nurse informed me that as per Sayed patient to complete IV antibiotics tomorrow and patient can then go home. No need for any further oral ant ibiotics.
[2020-08-29] MEDS: ATORVASTATIN 10 MG TAB PO SCH (20:57)
--- NOTE | 2020-08-29 23:04 | PN ---
PROGRESS NOTE DATE OF SERVICE: 08/29/2020. REASON FOR FOLLOWUP: Catheter associated UTI pseudomonas. INTERVAL HISTORY: The patient is afebrile. The patient is breathing comfortably. Patient denies having any chest pain. No shortness of breath or cough. No nausea, vomiting. No abdominal pain. No diarrhea. PHYSICAL EXAMINATION: Blood pressure is 160/90 with a pulse of 79, temperature 98. He is 97% on room air. General description is a middle-aged male lying in bed in no distress. Respiratory system: Unlabored breathing, clear to auscultation anteriorly. Heart S1, S2. Regular rate and rhythm. ABDOMEN: Soft, no tenderness. LABS: BUN of 26, creatinine 0.91, white count 7.0. DIAGNOSTIC IMPRESSION AND PLAN: Patient with Pseudomonas and E coli catheter associated urinary tract infection, but has been resistant to oral Cipro. With no oral option available. The patient has shown overall improvement on cefepime and has received about a week of antibiotics that should be more than enough for cystitis with no clinical suspicion for deep infection/pyelonephritis. Will be able to discharge the patient home after tomorrow's dose of antibiotic. This will be discussed further with admitting physician. MMODL / IJN: [id number] / MTDD
[2020-08-30] MEDS: DIAZEPAM 5 MG/ML 2 ML INJ IVP PRN (01:38)
[2020-08-30 02:59] VITALS: RESP 18
[2020-08-30] MEDS: CEFEPIME 2 GM in SODIUM CHLORIDE 0.9% 100 ML IVPB SCH ×2 (06:29→13:03)
[2020-08-30 08:45] VITALS: TEMP 98
[2020-08-30] MEDS: ENOXAPARIN 40 MG/0.4 ML SYRINGE SQ SCH (08:46)
[2020-08-30] MEDS: SODIUM BICARBONATE TAB 650 MG TAB PO SCH (08:46)
[2020-08-30] MEDS: levETIRAcetam 250 MG TAB PO SCH (08:48)
[2020-08-30 11:46] VITALS: BP 166/94; PULSE 74
--- NOTE | 2020-08-30 22:55 | P.DS ---
Providers Date of admission: 08/24/20 21:45 Expected date of discharge: 08/30/20 Attending physician: Shankar Galaviz Consults: 08/25/20 11:47 Consult Physician Routine Consulting Provider: Trenton Oreilly Consult Reason/Comments: uti Do you want consulting provider notified?: Yes Primary care physician: Enoch [facility] Course: Chief Complaint: Low blood pressure History of presenting complaint: This is a 54-year-old patient being followed by visiting physicians Dr. Flores.. 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 has a chronic neurogenic bladder uses a condom catheter, with frequent UTIs. kidney stones. previous decubitus ulcers. Patient is a bowel program with suppository every other day. Sometimes has to manually evacuated /stool. Recently just completed a course of antibiotic through his family doctor. Urine culture from August 06 showed E. coli and pseudomonas aeruginosa. Patient now presents with not feeling well low blood pressure recorded and and even passed out. There is no seizure activity noted. No tongue biting. Has just not been feeling right. No reported fever and chills. Appetite is fair. Needs assistance with feeding. Admitted with acute UTI with cystitis. Started on IV fluids. IV cefepime. Urine culture came back positive for E. coli and Pseudomonas aeruginosa. Today:doing well. No fever or chills. Discussed with Dr. Goins from ID. IV cefepime to be done off today. No further antibiotics. Discussed with patient. Social history: Does not smoke or drink alcohol. Lives at home. Mother and brother both caregivers. Patient is bedbound uses a lift to wheelchair. Needs assistance with eating. Family history: Reviewed, noncontributory to presentation Physical examination: VITAL SIGNS: 98, 74, 18, 166.94, 97% room air GENERAL:, laying in bed comfortable EYES: Pupils equal. Conjunctiva normal. NECK: JVD unable to assess; masses not palpable. HEART: First and second heart sounds are normal; no edema. LUNGS: Respiratory rate normal; clear to auscultation. ABDOMEN: Soft, nontender, liver spleen not palpable, no masses palpable, condom catheter PSYCH: Alert and oriented x3; mood and affect normal. NEUROLOGICAL: Cranial nerves grossly intact; no facial asymmetry, 0/5 power of the lower extremity, lower extremities contracted. Decreased power in upper extremity. INVESTIGATIONS, reviewed in the clinical context: Urine culture: E. coli and pseudomonas, EEG: Negative for seizure August 26: Potassium 3.7 creatinine 1.16 WBC 7 hemoglobin 13 platelets 2:30 sodium 1:30 potassium 3.9 bun 40 creatinine 1.20 UA positive for leukoesterase, WBC bacteria Coronavirus [PCR)-not detected Previous labs: Urine culture from 08/06/2020 showed E. coli and Pseudomonas aeruginosa. Assessment and plan: -Acute recurrent UTI from cystitis secondary to chronic catheter in a patient with underlying neurogenic bladder with cultures positive for pseudomonas aeruginosa and E. coli, . IV cefepime. -completed course. No antibiotics. -Hyponatremia suspect hypovolemic-improving Give IV fluids. -Syncope likely vasovagal from dehydration and low blood pressure Given IV fluids -Metabolic acidosis Oral sodium bicarbonate -GERD -Chronic seizure disorder. Continue Keppra. EEG negative for seizure activity -Quadriplegia due to C5-C6 injury in 1994 Requires a lift for transfers -Chronic neurogenic bladder uses a condom catheter -Chronic medical debility disposition: Home Plan - Discharge Summary Discharge Rx Participant: No New Discharge Prescriptions: Continue levETIRAcetam [Keppra Xr] 500 mg PO DAILY Hydrocortisone Oint [Hydrocortisone 2.5% Oint] 1 applic TOPICAL DAILY PRN PRN Reason: Rash Atorvastatin [Lipitor] 10 mg PO HS Discharge Medication List levETIRAcetam [Keppra Xr] 500 mg PO DAILY 08/19/18 [History] Atorvastatin [Lipitor] 10 mg PO HS 08/24/20 [History] Hydrocortisone Oint [Hydrocortisone 2.5% Oint] 1 applic TOPICAL DAILY PRN 08/24/20 [History] Follow up Appointment(s)/Referral(s): [facility], [NON-STAFF] - Enoch Flores MD [Primary Care Provider] - 1 Week (please call for follow-up appt.) Patient Instructions/Handouts: Urinary Tract Infection in Men (DC) Discharge Disposition: HOME SELF-CARE
--- NOTE | 2020-09-03 13:44 | P.PN ---
Progress Note - Text Progress Note Date: 08/30/20 REASON FOR FOLLOWUP: Catheter associated UTI pseudomonas. INTERVAL HISTORY: The patient is afebrile. The patient is breathing comfortably. Patient denies chest pain. No shortness of breath or cough. No nausea, vomiting. No abdominal pain. No diarrhea. PHYSICAL EXAMINATION: Blood pressure is 150/80 with a pulse of 70, temperature 98. He is 97% on room air. General description is a middle-aged male lying in bed in no distress. Respiratory system: Unlabored breathing, clear to auscultation anteriorly. Heart S1, S2. Regular rate and rhythm. ABDOMEN: Soft, no tenderness. LABS: reviewed DIAGNOSTIC IMPRESSION AND PLAN: Patient with Pseudomonas and E coli catheter associated urinary tract infection, but has been resistant to oral Cipro. With no oral option available. The patient has shown overall improvement on cefepime and has received about a week of antibiotics that should be more than enough for cystitis with no clinical suspicion for deep infection/pyelonephritis. no need for antibiotics on discharge , discussed with mother at bedside , questions answered
== END 2020-08-30 17:46 | disposition home or self-care (01) | DRG 698 ==
LOC: EC 19:41 → 3SCARD 21:45
PROVIDERS: ADMIT Hospitalist; ATTEND Hospitalist
DX: T83.518A Infection and inflammatory reaction due to other urinary catheter, initial encounter (principal); G82.54 Quadriplegia, C5-C7 incomplete; E87.1 Hypo-osmolality and hyponatremia; E87.2 Acidosis; Z16.24 Resistance to multiple antibiotics; N30.90 Cystitis, unspecified without hematuria; Z88.2 Allergy status to sulfonamides; K21.9 Gastro-esophageal reflux disease without esophagitis; Z20.822 Contact with and (suspected) exposure to COVID-19; N31.9 Neuromuscular dysfunction of bladder, unspecified; Z82.5 Family history of asthma and other chronic lower respiratory diseases; Z74.01 Bed confinement status; Z87.440 Personal history of urinary (tract) infections; G40.909 Epilepsy, unspecified, not intractable, without status epilepticus; R53.81 Other malaise; I95.9 Hypotension, unspecified; Z87.01 Personal history of pneumonia (recurrent); Y84.6 Urinary catheterization as the cause of abnormal reaction of the patient, or of later complication, without mention of misadventure at the time of the procedure; B96.5 Pseudomonas (aeruginosa) (mallei) (pseudomallei) as the cause of diseases classified elsewhere; B96.20 Unspecified Escherichia coli [E. coli] as the cause of diseases classified elsewhere; E86.0 Dehydration; Z87.442 Personal history of urinary calculi; E78.5 Hyperlipidemia, unspecified
CPT/HCPCS: 36415; 71045; 80048; 80053; 81001; 83605; 83735; 84484; 85025; 85610; 85730; 87040; 87077; 87086; 87186; 87635; 93005; 95816; 96361; 96365; 99285

== ENCOUNTER → 2020-12-15 | Outpatient (CLI) | payer MEDICARE, BC ==
[2020-12-15 17:10] LABS: Appearance,Urine Cloudy (Clear); Bacteria,Urine Many /hpf; Bilirubin,Urine Negative (Negative); Blood,Urine Trace (Negative); Color,Urine Light Yellow; Glucose,Urine (UA) Negative (Negative); Ketones,Urine Negative (Negative); Leukocyte Esterase,Urine Large (Negative); Nitrite,Urine Negative (Negative); Protein,Urine Negative (Negative); RBC,Urine 13 /hpf (0-5); Specific Gravity,Urine 1.006 (1.001-1.035); Squamous Epithelial Cell,Urine 1 /hpf (0-4); Urobilinogen,Urine <2.0 mg/dL (<2.0); WBC,Urine 78 /hpf (0-5)
== END | disposition home or self-care (01) ==
LOC: LABWHC1 12:23
PROVIDERS: ATTEND Nurse Practitioner Family
DX: N39.0 Urinary tract infection, site not specified (principal)
CPT/HCPCS: 81001; 87086

== ENCOUNTER → 2021-01-08 | Outpatient (CLI) | payer MEDICARE, BC ==
--- NOTE | 2021-01-08 15:13 | US ---
EXAMINATION TYPE: US kidneys/renal and bladder DATE OF EXAM: 01/08/2021 COMPARISON: NONE CLINICAL HISTORY: N31.9 Neuromuscular dysfunction of bladder, unspec. History of spinal cord injury; since 1984 has had external bladder catheter; bilateral renal stones per patient EXAM MEASUREMENTS: Right Kidney: 8.9 x 6.8 x 5.4 cm Left Kidney: 11.5 x 6.3 x 6.4 cm Post Void Residual Volume: not assessed on patient with external bladder catheter. Right Kidney: mild hydronephrosis; multiple renal stones are seen with largest shadowing stone seen i n lateral pole = 1.7 x 1.7 x 0.6 cm. Left Kidney: mild hydronephrosis; thin cortex; shadowing renal stone seen mid pole = 1.7mx 1.5 x 0.5 cm Bladder: thickened bladder wall; debris noted posteriorly; hypoechoic area seen along left bladder wa ll = 4.9 x 2.3 x 1.6cm. Bilateral Jets seen: yes, in fully distended bladder IMPRESSION: 1. Bilateral renal stones. There is mild hydronephrosis bilaterally. Obstructing stones however are n ot identified. 2. Catheterized bladder has thickened wall with debris present intraurinary bladder mass is not exclu ded.
== END | disposition home or self-care (01) ==
LOC: RADUSWWP 14:00
PROVIDERS: ATTEND Urology
DX: N13.2 Hydronephrosis with renal and ureteral calculous obstruction (principal); N31.9 Neuromuscular dysfunction of bladder, unspecified
CPT/HCPCS: 76770

== ENCOUNTER 2021-01-21 06:50 | Inpatient (IN) | payer MEDICARE, BC ==
[2021-01-21] MEDS ORDERED: SODIUM CHLORIDE 0.9% 1,000 ML IV SCH (07:00)
--- NOTE | 2021-01-21 07:26 | ED ---
General Adult HPI - General Source: patient, EMS, RN notes reviewed Mode of arrival: EMS Limitations: physical limitation <Willam Rubin - Last Filed: 01/21/21 08:16> <Calin Mercer - Last Filed: 01/21/21 08:43> - General Chief complaint: Urogenital Stated complaint: Weakness Time Seen by Provider: 01/21/21 06:55 - History of Present Illness Initial comments: This a 55-year-old male presents emergency Department via EMS for concerns of confusion, UTI, low blood pressure. Patient starting antibiotics 6 days ago in which she's taken Keflex 2 times a day for urinary tract infection. Patient has cystoscopy and urologist office this week secondary to recurrent urinary tract infections. Patient does use a condom catheter and states he switches or every other day. Patient states he feels very thirsty, just feels more weak. Patient is quadriplegic from prior spinal cord injury. in the room states that he is confused, more tired than his usual state. Patient said no known fever complaints of sweats, chills, no cough or cold-like symptoms. (Willam Rubin) - Related Data Home Medications Medication Instructions Recorded Confirmed levETIRAcetam [Keppra Xr] 500 mg PO DAILY 08/19/18 08/24/20 Atorvastatin [Lipitor] 10 mg PO HS 08/24/20 08/24/20 Hydrocortisone Oint 1 applic TOPICAL DAILY PRN 08/24/20 08/24/20 [Hydrocortisone 2.5% Oint] Allergies Allergy/AdvReac Type Severity Reaction Status Date / Time Sulfa (Sulfonamide Allergy Rash/Hives Verified 01/21/21 07:01 Antibiotics) Review of Systems ROS Other: All systems not noted in ROS Statement are negative. <Willam Rubin - Last Filed: 01/21/21 08:16> ROS Other: All systems not noted in ROS Statement are negative. <Calin Mercer - Last Filed: 01/21/21 08:43> ROS Statement: Those systems with pertinent positive or pertinent negative responses have been documented in the HPI. 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 History of Any Multi-Drug Resistant Organisms: MRSA, Other MDRO Date of last positivie culture/infection: 09/24/17 MRSA MDRO Source:: Foot-MRSA; Urine-MDROs Additional Past Surgical History / Comment(s): multiple surgeries/skin grafts for pressure sores, right ureteroscopy with lithotripsy, external sphincetrotomy 1990 and 1994, cystoscopy with irrigation of blood clots from bladder, trach. & peg tube/ since removed, picc lines Past Anesthesia/Blood Transfusion Reactions: No Reported Reaction Past Psychological History: No Psychological Hx Reported Smoking Status: Never smoker - Past Family History Mother Family Medical History: No Reported History Additional Family Medical History / Comment(s): Mother is healthy. Father Family Medical History: COPD Additional Family Medical History / Comment(s): Father at the age of 65yrs. <Willam Rubin - Last Filed: 01/21/21 08:16> General Exam Limitations: no limitations General appearance: alert, in no apparent distress Head exam: Present: atraumatic, normocephalic, normal inspection Eye exam: Present: normal appearance, PERRL, EOMI. Absent: scleral icterus, conjunctival injection, periorbital swelling Neck exam: Present: normal inspection. Absent: tenderness, meningismus, lymphadenopathy Respiratory exam: Present: normal lung sounds bilaterally. Absent: respiratory distress, wheezes, rales, rhonchi, stridor Cardiovascular Exam: Present: regular rate, normal rhythm, normal heart sounds. Absent: systolic murmur, diastolic murmur, rubs, gallop, clicks GI/Abdominal exam: Present: soft, normal bowel sounds. Absent: distended, tenderness, guarding, rebound, rigid <Willam Rubin - Last Filed: 01/21/21 08:16> Course <Willam Rubin - Last Filed: 01/21/21 08:16> Vital Signs 01/21/21 01/21/21 01/21/21 06:59 07:22 07:50 Temperature 98.8 F Pulse Rate 75 69 74 Respiratory 18 20 20 Rate Blood Pressure 72/37 78/46 O2 Sat by Pulse 96 95 97 Oximetry 01/21/21 01/21/21 08:08 08:18 Temperature Pulse Rate 75 81 Respiratory 16 15 Rate Blood Pressure 81/57 113/72 O2 Sat by Pulse 96 99 Oximetry - Reevaluation(s) Reevaluation #1: 01/21/21 07:25 Upon arrival via EMS Patient's found to have hypertension. 2 IVs were started, multiple fluid boluses were ordered on labs including blood cultures, lactic, CBC,. Patient's blood pressure was closely monitored. (Willam Rubin) Reevaluation #2: 01/21/21 08:23 Patient had persistence hypertension given multiple liters of fluid patient will have some swelling placed by Dr. Mercer, patient evaluated by ICU Dr. Pillai in the emergency department (Willam Rubin) EKG Findings - EKG Comments: EKG Findings:: EKG performed at 6:54 normal sinus rhythm rate of 72 VT 198 QRS 100 QT/QTC 44/442 <Willam Rubin - Last Filed: 01/21/21 08:16> Procedures - Sepsis Sepsis Focused Exam #1 Time Sepsis Criteria Met: 08:23 Sepsis Focused Exam Date: 01/21/21 Sepsis Focused Exam Time: 08:24 Sepsis Focused Exam Complete: Yes Vital Signs & RN Notes Reviewed: Yes Capillary Refill: < 2 Seconds: Fingers, Toes (Unable assess right lower limb) Peripheral Pulses: Weak: Radial (R), Radial (L), Posterior Tibialis (L), Dorsalis Pedis (L) Skin Color: Normal for Patient Respiratory Exam: normal lung sounds Cardiovascular Exam: regular rate <Willam Rubin - Last Filed: 01/21/21 08:16> - Central Line Placement Left Femoral Consent Obtained: verbal consent, written consent Patient Placed on Monitor/Pulse Ox: Yes MD Prep: mask, gown, gloves Central Line Prep: Povidone-Iodine 1% Ultrasound Used for Placement: Yes Central Line Lumen Inserted: triple Bloods Obtained for Lab: No Central Line Position: good blood return, all ports aspirated, flushed, capped, sutured in place with 3-0 nylon Dressing Applied: Tegaderm Patient Tolerated Procedure: well (Patient is contracted. He has no visualized left internal jugular. I J placement was not attempted. Left subclavian was attempted however patient was contracted. 2 attempts were made and unsuccessful. Decision was made to place a central venous catheter in the left femoral groin.) <Calin Mercer - Last Filed: 01/21/21 08:43> Medical Decision Making - Lab Data Result diagrams: 01/21/21 07:20 01/21/21 07:20 <Willam Rubin - Last Filed: 01/21/21 08:16> - Lab Data Result diagrams: 01/21/21 07:20 01/21/21 07:20 <Calin Mercer - Last Filed: 01/21/21 08:43> - Medical Decision Making 55 year old male presented for concerns. UTI, sepsis. Patient's found to be hypotensive multiple fluid boluses were given with minimal improvement. Patient was started on peripheral levophed as central line was being placed under Dr. Mercer. Patient was seen in emergency department by Dr. Pillai and will be admitted to ICU. Patient found to have hyponatremia fluids will be slowed as patient has received multiple fluid boluses and known hyponatremia. Patient's potassium is 3.2, IV replacement was ordered patient was given broad-spectrum advised, blood cultures, lactic ordered (Willam Rubin) - Lab Data Lab Results 01/21/21 01/21/21 01/21/21 Range/Units 07:20 07:20 07:20 WBC 12.8 H (3.8-10.6) k/uL RBC 2.83 L (4.30-5.90) m/uL Hgb 8.4 L (13.0-17.5) gm/dL Hct 22.5 L (39.0-53.0) % MCV 79.7 L (80.0-100.0) fL MCH 29.8 (25.0-35.0) pg MCHC 37.5 H (31.0-37.0) g/dL RDW 13.1 (11.5-15.5) % Plt Count 179 (150-450) k/uL MPV 7.4 Hyperchromasia Marked PT 11.3 (9.0-12.0) sec INR 1.1 (<1.2) APTT 30.3 H (22.0-30.0) sec Sodium 110 L* (137-145) mmol/L Potassium 3.2 L (3.5-5.1) mmol/L Chloride 82 L (98-107) mmol/L Carbon Dioxide 16 L (22-30) mmol/L Anion Gap 12 mmol/L BUN 65 H (9-20) mg/dL Creatinine 1.79 H (0.66-1.25) mg/dL Est GFR (CKD-EPI)AfAm 48 (>60 ml/min/1.73 sqM) Est GFR (CKD-EPI)NonAf 42 (>60 ml/min/1.73 sqM) Glucose 123 H (74-99) mg/dL Plasma Lactic Acid Aaron (0.7-2.0) mmol/L Calcium 7.2 L (8.4-10.2) mg/dL Total Bilirubin 1.0 (0.2-1.3) mg/dL AST 23 (17-59) U/L ALT 21 (4-49) U/L Alkaline Phosphatase 97 (38-126) U/L Troponin I (0.000-0.034) ng/mL Total Protein 5.6 L (6.3-8.2) g/dL Albumin 2.8 L (3.5-5.0) g/dL Urine Color Urine Appearance (Clear) Urine pH (5.0-8.0) Ur Specific [place] (1.001-1.035) Urine Protein (Negative) Urine Glucose (UA) (Negative) Urine Ketones (Negative) Urine Blood (Negative) Urine Nitrite (Negative) Urine Bilirubin (Negative) Urine Urobilinogen (<2.0) mg/dL Ur Leukocyte Esterase (Negative) Urine RBC (0-5) /hpf Urine WBC (0-5) /hpf Ur Squamous Epith Cells (0-4) /hpf Urine Bacteria (None) /hpf Urine Mucus (None) /hpf 01/21/21 01/21/21 01/21/21 Range/Units 07:20 07:27 07:27 WBC (3.8-10.6) k/uL RBC (4.30-5.90) m/uL Hgb (13.0-17.5) gm/dL Hct (39.0-53.0) % MCV (80.0-100.0) fL MCH (25.0-35.0) pg MCHC (31.0-37.0) g/dL RDW (11.5-15.5) % Plt Count (150-450) k/uL MPV Hyperchromasia PT (9.0-12.0) sec INR (<1.2) APTT (22.0-30.0) sec Sodium (137-145) mmol/L Potassium (3.5-5.1) mmol/L Chloride (98-107) mmol/L Carbon Dioxide (22-30) mmol/L Anion Gap mmol/L BUN (9-20) mg/dL Creatinine (0.66-1.25) mg/dL Est GFR (CKD-EPI)AfAm (>60 ml/min/1.73 sqM) Est GFR (CKD-EPI)NonAf (>60 ml/min/1.73 sqM) Glucose (74-99) mg/dL Plasma Lactic Acid Aaron 0.8 (0.7-2.0) mmol/L Calcium (8.4-10.2) mg/dL Total Bilirubin (0.2-1.3) mg/dL AST (17-59) U/L ALT (4-49) U/L Alkaline Phosphatase (38-126) U/L Troponin I <0.012 (0.000-0.034) ng/mL Total Protein (6.3-8.2) g/dL Albumin (3.5-5.0) g/dL Urine Color Light Yellow Urine Appearance Turbid (Clear) Urine pH 6.5 (5.0-8.0) Ur Specific [place] 1.007 (1.001-1.035) Urine Protein 1+ H (Negative) Urine Glucose (UA) Negative (Negative) Urine Ketones Negative (Negative) Urine Blood Small H (Negative) Urine Nitrite Negative (Negative) Urine Bilirubin Negative (Negative) Urine Urobilinogen <2.0 (<2.0) mg/dL Ur Leukocyte Esterase Large H (Negative) Urine RBC 49 H (0-5) /hpf Urine WBC >182 H (0-5) /hpf Ur Squamous Epith Cells 1 (0-4) /hpf Urine Bacteria Moderate H (None) /hpf Urine Mucus Rare H (None) /hpf Critical Care Time Critical Care Time: Yes Total Critical Care Time: 35 <Willam Rubin - Last Filed: 01/21/21 08:16> Disposition <Willam Rubin - Last Filed: 01/21/21 08:16> <Calin Mercer - Last Filed: 01/21/21 08:43> Clinical Impression: UTI (urinary tract infection), Sepsis, Hyponatremia, Quadriplegia and hakan paresis, Hypokalemia Disposition: ADMITTED IP TO THIS HOSP Condition: Serious Referrals: Enoch Flores MD [Primary Care Provider] - 1-2 days
[2021-01-21] MEDS: SODIUM CHLORIDE 0.9% 500 ML 500 ML IV SCH ×2 (07:29→07:49)
[2021-01-21 07:46] LABS: Basophils % (A) 0 %; Eosinophils % (A) 0 %; HCT 22.5 % (39.0-53.0); HGB 8.4 gm/dL (13.0-17.5); Hyperchromasia Marked; Lymphocytes # (A) 0.2 k/uL (1.0-4.8); Lymphocytes % (A) 2 %; MCH 29.8 pg (25.0-35.0); MCHC 37.5 g/dL (31.0-37.0); MCV 79.7 fL (80.0-100.0); Mean Platelet Volume 7.4; Monocytes # (A) 0.6 k/uL (0-1.0); Monocytes % (A) 4 %; Neutrophils # (A) 11.9 k/uL (1.3-7.7); Neutrophils % (A) 93 %; Platelet Count 179 k/uL (150-450); RBC 2.83 m/uL (4.30-5.90); RDW 13.1 % (11.5-15.5); WBC 12.8 k/uL (3.8-10.6)
[2021-01-21 07:49] LABS: Albumin 2.8 g/dL (3.5-5.0); Calcium 7.2 mg/dL (8.4-10.2); Potassium 3.2 mmol/L (3.5-5.1); Total Protein 5.6 g/dL (6.3-8.2)
[2021-01-21 07:58] LABS: INR 1.1 (<1.2); Partial Thromboplastin Time 30.3 sec (22.0-30.0); Prothrombin Time 11.3 sec (9.0-12.0)
[2021-01-21] MEDS: NOREPINEPHRINE 4 MG in SODIUM CHLORIDE 0.9% 250 ML IV SCH (08:02)
[2021-01-21 08:10] LABS: Appearance,Urine Turbid (Clear); Bacteria,Urine Moderate /hpf; Bilirubin,Urine Negative (Negative); Blood,Urine Small (Negative); Color,Urine Light Yellow; Glucose,Urine (UA) Negative (Negative); Ketones,Urine Negative (Negative); Leukocyte Esterase,Urine Large (Negative); Mucus,Urine Rare /hpf; Nitrite,Urine Negative (Negative); PH, Urine 6.5 (5.0-8.0); Protein,Urine 1+ (Negative); RBC,Urine 49 /hpf (0-5); Specific Gravity,Urine 1.007 (1.001-1.035); Squamous Epithelial Cell,Urine 1 /hpf (0-4); Urobilinogen,Urine <2.0 mg/dL (<2.0); WBC,Urine >182 /hpf (0-5)
[2021-01-21] MEDS ORDERED: NALOXONE 0.4 MG/ML 1 ML VIAL IV PRN ×2 (08:10→12:01)
[2021-01-21] MEDS ORDERED: POTASSIUM CHLORIDE 40 MEQ in WATER FOR INJECTION 1 100ML.BAG IVPB STA (08:16)
[2021-01-21] MEDS ORDERED: CEFEPIME 2 GM in SODIUM CHLORIDE 0.9% 100 ML IVPB STA (08:20)
[2021-01-21] MEDS: POTASSIUM CHLORIDE 20 MEQ in WATER FOR INJECTION 1 100ML.BAG IVPB SCH ×2 (08:48→11:10)
[2021-01-21 08:50] LABS: Poikilocytosis (M) Present; Rouleaux Present
[2021-01-21] MEDS ORDERED: PANTOPRAZOLE 40 MG/10 ML VIAL IVP STA (09:18)
--- NOTE | 2021-01-21 09:32 | P.CNPUL ---
History of Present Illness Consult date: 01/21/21 Requesting physician: Calin Mercer Reason for consult: other Chief complaint: Urosepsis. History of present illness: Pulmonary/critical care consultation dated 01/21/2021. 55-year-old male, brought into the emergency department, with suspected urosepsis. The patient apparently is been having chills, and mental status changes. He has a history of paraplegia, secondary to a hockey injury and spinal cord injury, back in 1984. He sees a visiting physician, and also sees one of the local urologist for recurrent urinary tract infections. I was in the emergency Department seeing another patient, when one of the ER physicians asked me to see this patient. The patient had a low blood pressure of about 80 systolic. The patient did receive adequate fluid resuscitation with 3 L of saline, and was being started on norepinephrine. The patient was also getting a basic IV of saline at 1 30 mL an hour. He was not receiving any supplemental oxygen. He hadn't been feeling well for at least 2 or 3 days maybe a bit longer, prior to admission. The patient does use a condom catheter. He had a recent cystoscopy in the urology office earlier this week. I suspect that is the etiology of his urinary tract infection/urosepsis. He denies any chest pain or chest discomfort. He also denies any shortness of breath or difficulty breathing. His medical problem list includes gastroesophageal reflux disease, hyperlipidemia, pneumonia, seizure disorder, paraplegia, neurogenic bladder, rec urrent urinary tract infections, kidney stones, decubitus ulcers, among other things. He also has a previous history of methicillin-resistant staph aureus infection, as well as multiple drug resistant organisms in his urine. White count 12.8, hemoglobin 8.4, hematocrit 22.5, platelet count 179,000. Sodium 110, potassium 3.2, chlorides 82, CO2 16, anion gap 12, BUN 65, creatinine 1.79. Urine shows small amount of blood, large positive leukocyte esterase, greater than 182 white blood cells, and moderate bacteria. Coronavirus testing was negative. Review of Systems REVIEW OF SYSTEMS: CONSTITUTIONAL: Fever and chills. NEUROLOGIC: Mental status changes. HEENT: [ Negative.] CARDIAC: [Negative.] PULMONARY: [Negative.] GI: [Negative.] : Recent instrumentation of the genitourinary tract. RHEUMATOLOGIC: [ Negative.] IMMUNOLOGIC: [ Negative.] ENDOCRINE: [Negative. 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 History of Any Multi-Drug Resistant Organisms: MRSA, Other MDRO Date of last positivie culture/infection: 09/24/17 MRSA MDRO Source:: Foot-MRSA; Urine-MDROs Additional Past Surgical History / Comment(s): multiple surgeries/skin grafts for pressure sores, right ureteroscopy with lithotripsy, external sphincetrotomy 1990 and 1994, cystoscopy with irrigation of blood clots from bladder, trach. & peg tube/ since removed, picc lines Past Anesthesia/Blood Transfusion Reactions: No Reported Reaction Past Psychological History: No Psychological Hx Reported Smoking Status: Never smoker - Past Family History Mother Family Medical History: No Reported History Additional Family Medical History / Comment(s): Mother is healthy. Father Family Medical History: COPD Additional Family Medical History / Comment(s): Father at the age of 65yrs. Medications and Allergies Home Medications Medication Instructions Recorded Confirmed Type levETIRAcetam [Keppra Xr] 500 mg PO DAILY 08/19/18 01/21/21 History Atorvastatin [Lipitor] 10 mg PO HS 08/24/20 01/21/21 History Hydrocortisone Oint 1 applic TOPICAL DAILY PRN 08/24/20 01/21/21 History [Hydrocortisone 2.5% Oint] Cephalexin [Keflex] 500 mg PO Q8HR 01/21/21 01/21/21 History Allergies Allergy/AdvReac Type Severity Reaction Status Date / Time Sulfa (Sulfonamide Allergy Rash/Hives Verified 01/21/21 07:01 Antibiotics) Physical Exam Osteopathic Statement: *. No significant issues noted on an osteopathic structural exam other than those noted in the History and Physical/Consult. Vitals: Vital Signs Temp Pulse Resp BP Pulse Ox 01/21/21 08:58 77 18 109/72 97 01/21/21 08:18 81 15 113/72 99 01/21/21 08:08 75 16 81/57 96 01/21/21 07:50 74 20 78/46 97 01/21/21 07:22 69 20 95 01/21/21 06:59 98.8 F 75 18 72/37 96 Intake and Output 01/20/21 01/21/21 01/21/21 22:59 06:59 14:59 Other: Weight 86.183 kg No acute distress, oriented 3. No respiratory distress. HEENT examination is grossly unremarkable. Neck supple. Full range of motion. No adenopathy thyromegaly or neck vein distention. Cardiovascular examination reveals regular rhythm rate. S1-S2 normal. No S3 or S4. No discernible murmur noted. Heart rate 77 bpm. Lungs reveal clear breath sounds. Breath sounds are equal bilaterally. No a dventitious lung sounds including wheezes rhonchi or crackles. Abdomen soft bowel sounds are heard. No masses or tenderness. Extremities are intact. No cyanosis clubbing or edema. Skin is without rash or lesion. Neurologic examination is brief but nonfocal. Weakness/paralysis of the lower extremities. Results - Laboratory Findings CBC and BMP: 01/21/21 07:20 01/21/21 07:20 PT/INR, D-dimer PT 11.3 sec (9.0-12.0) 01/21/21 07:20 INR 1.1 (<1.2) 01/21/21 07:20 Abnormal lab findings: Abnormal Labs 01/21/21 01/21/21 01/21/21 07:20 07:20 07:20 WBC 12.8 H RBC 2.83 L Hgb 8.4 L Hct 22.5 L MCV 79.7 L MCHC 37.5 H Neutrophils # 11.9 H Lymphocytes # 0.2 L APTT 30.3 H Sodium 110 L* Potassium 3.2 L Chloride 82 L Carbon Dioxide 16 L BUN 65 H Creatinine 1.79 H Glucose 123 H Calcium 7.2 L Total Protein 5.6 L Albumin 2.8 L Urine Protein Urine Blood Ur Leukocyte Esterase Urine RBC Urine WBC Urine Bacteria Urine Mucus 01/21/21 07:27 WBC RBC Hgb Hct MCV MCHC Neutrophils # Lymphocytes # APTT Sodium Potassium Chloride Carbon Dioxide BUN Creatinine Glucose Calcium Total Protein Albumin Urine Protein 1+ H Urine Blood Small H Ur Leukocyte Esterase Large H Urine RBC 49 H Urine WBC >182 H Urine Bacteria Moderate H Urine Mucus Rare H Assessment and Plan Assessment: Urinary tract infection/urosepsis, with possible septic shock. History of recurrent urinary tract infections. Status post spinal cord injury, 1984, with paraplegia. Acute hyponatremia. History of gastroesophageal reflux disease. History of hyperlipidemia. Prior history of pneumonia. History of seizure disorder. Neurogenic bladder. History of kidney stones. History of decubitus ulcers. Prior history of methicillin-resistant staph aureus infection and multiple drug resistant organisms. Plan: Plan dated 01/21/2021. The patient will be managed to the intensive care unit for closer monitoring and management. The patient will be started on antibiotics. Addition, the patient needs attention to his hyponatremia. The patient has been adequately fluid resuscitated. Norepinephrine will be started in the emergency department. The ER physician we'll place a central line. Prognosis is guarded. We will continue to follow make recommendations where appropriate. Time with Patient: Greater than 30
[2021-01-21 10:32] LABS: Glucose,Whole Blood 165 mg/dL (75-99)
[2021-01-21] MEDS ORDERED: ACETAMINOPHEN TAB 325 MG TAB PO PRN (12:01)
[2021-01-21] MEDS ORDERED: HYDROmorphone 1 MG/ML 1 ML SYRINGE IVP PRN (12:01)
--- NOTE | 2021-01-21 13:21 | XR ---
EXAMINATION TYPE: XR chest 1V portable DATE OF EXAM: 01/21/2021 COMPARISON: Chest x-ray 08/24/2020 and 08/24/2018 HISTORY: Fever TECHNIQUE: Single frontal view of the chest is obtained. FINDINGS: Patient is rotated. Heart remains enlarged. No evident airspace disease, pneumothorax, or sizable pleural effusion, pleural thickening towards the left phrenic angle is stable, chronic and ma y represent chronic pleural reaction. There are overlying leads. IMPRESSION: No acute process.
--- NOTE | 2021-01-21 14:03 | P.HPIM ---
History of Present Illness H&P Date: 01/21/21 Chief Complaint: Not feeling well History of presenting complaint: This is a 55-year-old patient being followed by visiting physicians Dr. Flores.. Chronic stable medical conditions include GERD, seizure disorder, quadriplegic due to hockey related injury C5 through C6 -1985. has a chronic neurogenic bladder uses a condom catheter, with frequent UTIs. kidney stones. previous decubitus ulcers. Has a bowel program with suppository every other day. Sometimes has to manually evacuated /stool. Lives with his mother. Patient now presents with fevers, perspiring, more tired. Slightly confused. At home. Symptoms the present for about 5 days. Having hiccups. Decrease appetite. Normally the blood pressure runs in the 90s. This is a condom catheter that is changed every 2 days. Patient has received both his vaccination for COVID 19. Patient is accompanied by his mother the bedside. Patient denies any urinary symptoms. Review of systems: GEN.: Tired, fever, decreased appetite EYES: None HEENT: None NECK: None RESPIRATORY: None CARDIOVASCULAR: None GASTROINTESTINAL: As above GENITOURINARY: Condom catheter MUSCULOSKELETAL: None LYMPHATICS: None HEMATOLOGICAL: None PSYCHIATRY: None NEUROLOGICAL: Minimal sensation in lower extremity, contraction of the lower limbs. Weakness of the upper arms Social history: Does not smoke or drink alcohol. Lives at home. Mother and brother both caregivers. Patient is bedbound uses a lift to wheelchair. Needs assistance with eating. Family history: Reviewed, noncontributory to presentation Physical examination: VITAL SIGNS: 98.8, 75, 18, 72/37, 96% room air GENERAL: BMI is 4.4, laying in bed awake EYES: Pupils equal. Conjunctiva normal. HEENT: External appearance of nose and ears normal, oral cavity grossly normal. NECK: JVD unable to assess; masses not palpable. HEART: First and second heart sounds are normal; no edema. LUNGS: Respiratory rate normal; clear to auscultation. ABDOMEN: Soft, nontender, liver spleen not palpable, no masses palpable, condom catheter PSYCH: Alert and oriented x3; mood and affect normal. NEUROLOGICAL: Cranial nerves grossly intact; no facial asymmetry, 0/5 power of the lower extremity, lower extremities contracted. Decreased power in upper extremity. bi- lateral foot drop LYMPHATICS: No lymph nodes palpable in the axilla and neck INVESTIGATIONS, reviewed in the clinical context: WBC 2.8 hemoglobin 8.4 platelets 179 sodium 110 potassium 3.2. 65 creatinine 1.79 bicarb 16 UA positive for leukoesterase, WBC Coronavirus [PCR]: Not detected EKG tracing personally reviewed by me-normal sinus rhythm, 72/m some T-wave changes Chest x-ray film personally reviewed by me-: Rotated. No obvious infiltration Assessment and plan: -Septic shock from acute UTI Patient on levo fed. IV fluids -Acute UTI with cystitis, recurrent from condom catheter IV cefepime 2 g every 12. ID consulted -Chronic neurogenic bladder for spinal cord injury Chronic condom catheter that is changed every 2 days -Severe Hyponatremia with hypovolemic Lactated Ringer's -Metabolic acidosis Oral sodium bicarbonate -GERD Pepcid -Chronic seizure disorder. Continue Keppra. -Quadriplegia due to C5-C6 injury in 1994 Requires a lift for transfers -Chronic medical debility -Acute delirium at home from sepsis fever Follow clinically -Full code IV fluids. IV cefepime. Consultation to hand packer/packager, ID. Patient be moved to the ICU. Lactated Ringer's. Follow electrolytes. IV levo fed. 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 History of Any Multi-Drug Resistant Organisms: MRSA, Other MDRO Date of last positivie culture/infection: 09/24/17 MRSA MDRO Source:: Foot-MRSA; Urine-MDROs Additional Past Surgical History / Comment(s): multiple surgeries/skin grafts for pressure sores, right ureteroscopy with lithotripsy, external sphincetrotomy 1990 and 1994, cystoscopy with irrigation of blood clots from bladder, trach. & peg tube/ since removed, picc lines Past Anesthesia/Blood Transfusion Reactions: No Reported Reaction Past Psychological History: No Psychological Hx Reported Additional Psychological History / Comment(s): pt lives at home with his mom and brother who are his care givers. pt quadrapelic, bedbound but with lift to w/c. unable to write or use standard call light- has condom cath in place. needs assist with eating Smoking Status: Never smoker Past Alcohol Use History: None Reported Past Drug Use History: None Reported - Past Family History Mother Family Medical History: No Reported History Additional Family Medical History / Comment(s): Mother is healthy. Father Family Medical History: COPD Additional Family Medical History / Comment(s): Father at the age of 65yrs. Medications and Allergies Home Medications Medication Instructions Recorded Confirmed Type levETIRAcetam [Keppra Xr] 500 mg PO DAILY 08/19/18 01/21/21 History Atorvastatin [Lipitor] 10 mg PO HS 08/24/20 01/21/21 History Hydrocortisone Oint 1 applic TOPICAL DAILY PRN 08/24/20 01/21/21 History [Hydrocortisone 2.5% Oint] Cephalexin [Keflex] 500 mg PO Q8HR 01/21/21 01/21/21 History Allergies Allergy/AdvReac Type Severity Reaction Status Date / Time Sulfa (Sulfonamide Allergy Rash/Hives Verified 01/21/21 07:01 Antibiotics) Physical Exam Vitals: Vital Signs Temp Pulse Resp BP Pulse Ox 01/21/21 13:00 81 17 111/75 97 01/21/21 12:45 82 17 100/62 98 01/21/21 12:30 81 14 96/84 96 01/21/21 12:15 80 12 111/93 96 01/21/21 12:00 82 10 L 112/72 97 01/21/21 11:45 75 12 95/72 97 01/21/21 11:30 76 10 L 84/57 97 01/21/21 11:15 80 11 L 91/69 97 01/21/21 11:00 81 14 100/70 97 01/21/21 10:40 98.2 F 86 10 L 126/64 96 01/21/21 10:13 98 F 90 18 109/74 97 01/21/21 09:55 92 20 94/69 97 01/21/21 08:58 77 18 109/72 97 01/21/21 08:18 81 15 113/72 99 01/21/21 08:08 75 16 81/57 96 01/21/21 07:50 74 20 78/46 97 01/21/21 07:22 69 20 95 01/21/21 06:59 98.8 F 75 18 72/37 96 Intake and Output 01/20/21 01/21/21 01/21/21 22:59 06:59 14:59 Intake Total 260 Output Total 3200 Balance -2940 Intake: Intake, IV Titration 260 Amount Sodium Chloride 0.9% 1, 260 000 ml @ 130 mls/hr IV . Q7H42M [facility] Rx#:[id number] Output: Urine 3200 Other: Voiding Method External Catheter Weight 86.183 kg 86.183 kg Results CBC & Chem 7: 01/21/21 07:20 01/21/21 07:20 Labs: Abnormal Lab Results - Last 24 Hours (Table) 01/21/21 01/21/21 01/21/21 Range/Units 07:20 07:20 07:20 WBC 12.8 H (3.8-10.6) k/uL RBC 2.83 L (4.30-5.90) m/uL Hgb 8.4 L (13.0-17.5) gm/dL Hct 22.5 L (39.0-53.0) % MCV 79.7 L (80.0-100.0) fL MCHC 37.5 H (31.0-37.0) g/dL Neutrophils # 11.9 H (1.3-7.7) k/uL Lymphocytes # 0.2 L (1.0-4.8) k/uL APTT 30.3 H (22.0-30.0) sec Sodium 110 L* (137-145) mmol/L Potassium 3.2 L (3.5-5.1) mmol/L Chloride 82 L (98-107) mmol/L Carbon Dioxide 16 L (22-30) mmol/L BUN 65 H (9-20) mg/dL Creatinine 1.79 H (0.66-1.25) mg/dL Glucose 123 H (74-99) mg/dL POC Glucose (mg/dL) (75-99) mg/dL Calcium 7.2 L (8.4-10.2) mg/dL Total Protein 5.6 L (6.3-8.2) g/dL Albumin 2.8 L (3.5-5.0) g/dL Urine Protein (Negative) Urine Blood (Negative) Ur Leukocyte Esterase (Negative) Urine RBC (0-5) /hpf Urine WBC (0-5) /hpf Urine Bacteria (None) /hpf Urine Mucus (None) /hpf 01/21/21 01/21/21 Range/Units 07:27 10:31 WBC (3.8-10.6) k/uL RBC (4.30-5.90) m/uL Hgb (13.0-17.5) gm/dL Hct (39.0-53.0) % MCV (80.0-100.0) fL MCHC (31.0-37.0) g/dL Neutrophils # (1.3-7.7) k/uL Lymphocytes # (1.0-4.8) k/uL APTT (22.0-30.0) sec Sodium (137-145) mmol/L Potassium (3.5-5.1) mmol/L Chloride (98-107) mmol/L Carbon Dioxide (22-30) mmol/L BUN (9-20) mg/dL Creatinine (0.66-1.25) mg/dL Glucose (74-99) mg/dL POC Glucose (mg/dL) 165 H (75-99) mg/dL Calcium (8.4-10.2) mg/dL Total Protein (6.3-8.2) g/dL Albumin (3.5-5.0) g/dL Urine Protein 1+ H (Negative) Urine Blood Small H (Negative) Ur Leukocyte Esterase Large H (Negative) Urine RBC 49 H (0-5) /hpf Urine WBC >182 H (0-5) /hpf Urine Bacteria Moderate H (None) /hpf Urine Mucus Rare H (None) /hpf Microbiology - Last 24 Hours (Table) 01/21/21 07:27 Urine Culture - Preliminary Urine,Clean Catch
[2021-01-21] MEDS: LACTATED RINGERS 1,000 ML IV SCH ×2 (14:50→20:49)
[2021-01-21] MEDS: HEPARIN SODIUM,PORCINE/PF 5,000 UNIT/0.5 ML SYRINGE SQ SCH (17:33)
[2021-01-21] MEDS: SODIUM BICARBONATE TAB 650 MG TAB PO SCH ×2 (17:33→20:48)
[2021-01-21] MEDS: ATORVASTATIN 10 MG TAB PO SCH (20:48)
[2021-01-21] MEDS: ALPRAZolam 0.25 MG TAB PO PRN (20:48)
[2021-01-21] MEDS: CEFEPIME 2 GM in SODIUM CHLORIDE 0.9% 100 ML IVPB SCH (20:48)
[2021-01-22] MEDS: HEPARIN SODIUM,PORCINE/PF 5,000 UNIT/0.5 ML SYRINGE SQ SCH ×4 (00:26→23:17)
[2021-01-22] MEDS: NOREPINEPHRINE 4 MG in SODIUM CHLORIDE 0.9% 250 ML IV SCH ×2 (04:35→17:00)
[2021-01-22 06:30] LABS: Basophils % (A) 0 %; Eosinophils % (A) 0 %; HCT 21.8 % (39.0-53.0); HGB 7.9 gm/dL (13.0-17.5); Hyperchromasia Slight; Lymphocytes # (A) 0.4 k/uL (1.0-4.8); Lymphocytes % (A) 4 %; MCH 29.5 pg (25.0-35.0); MCV 81.9 fL (80.0-100.0); Mean Platelet Volume 7.5; Monocytes # (A) 0.4 k/uL (0-1.0); Monocytes % (A) 5 %; Neutrophils # (A) 8.1 k/uL (1.3-7.7); Neutrophils % (A) 90 %; Platelet Count 162 k/uL (150-450); RBC 2.67 m/uL (4.30-5.90); RDW 13.5 % (11.5-15.5); WBC 9.1 k/uL (3.8-10.6)
[2021-01-22] MEDS: LACTATED RINGERS 1,000 ML IV SCH ×3 (07:34→18:00)
[2021-01-22 07:55] LABS: Calcium 7.3 mg/dL (8.4-10.2); Potassium 3.4 mmol/L (3.5-5.1)
[2021-01-22] MEDS ORDERED: Potassium Replacement Protocol 1 EACH MISC MISCELLANE PRN (08:43)
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
[2021-01-22] MEDS: SODIUM BICARBONATE TAB 650 MG TAB PO SCH (09:42)
[2021-01-22] MEDS: MIDODRINE 5 MG TAB PO SCH ×3 (09:43→17:59)
[2021-01-22] MEDS: POTASSIUM CHLORIDE 20 MEQ in WATER FOR INJECTION 1 100ML.BAG IVPB SCH ×2 (09:43→13:09)
[2021-01-22] MEDS: CEFEPIME 2 GM in SODIUM CHLORIDE 0.9% 100 ML IVPB SCH ×2 (09:43→21:42)
[2021-01-22] MEDS: PANTOPRAZOLE 40 MG/10 ML VIAL IV SCH (09:43)
[2021-01-22] MEDS: levETIRAcetam 250 MG TAB PO SCH ×2 (09:45→21:42)
[2021-01-22 13:35] VITALS: BMI 24.2
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
--- NOTE | 2021-01-22 15:07 | CDI ---
Documentation Clarification Form Date: 01/22/2021 03:00:13 PM From: Karely Sampson RN, CCDS Admit Date: 01/21/2021 08:10:00 AM Patient Name: Og Grant Visit Number: [id number] ATTENTION: The Clinical Documentation Specialists (CDI) and [facility] Coding Staff appreciate your assistance in clarifying documentation. Please respond to the clarification below the line at the bottom and electronically sign. The CDI & [facility] Coding staff will review the response and follow-up if needed. Please note: Queries are made part of the Legal Health Record. If you have any questions, please contact the author of this message via ITS. Dr. Shankar Singletary Coccyx pressure ulcer is documented by nursing 01/21/2021. Based on this information and the findings below, is there an additional diagnosis that is clinically appropriate for this patient? History/Risk Factors: Quadriplegia from C5-C6 spinal cord injury, neurogenic bladder, bed and wheelchair bound, recurrent UTI's secondary to condom catheter, hyponatremia Clinical Indicators: Location: Coccyx Wound description: Stage 2, Type 3 Total Flap Loss, 1 cm x 0.5 cm, pink with serosang drainage POA Treatment: Primary dressing with a foam boarder placed- Optifoam Patient turned and repositioned q 2 hrs. on a low air loss bed, with pillows for elevation Consults: Is there an additional diagnosis that is clinically appropriate for this patient? [ ] Coccyx Pressure Ulcer Stage 1 [ ] Coccyx Pressure Ulcer Stage 2 [ ] Coccyx Pressure Ulcer Stage 3 [ ] Other condition, please specify [ ] Unable to determine Clinical Definitions: Stage 1 Pressure Ulcer: intact skin, non-blanching redness of local area Stage 2 Pressure Ulcer: Partial thickness, loss of dermis, pink wound bed Stage 3 Pressure Ulcer: Full thickness tissue loss Stage 4 Pressure Ulcer: Full thickness tissue loss with exposed bone, tendon, or muscle. Unstageable pressure ulcer: Full thickness tissue loss in which the base of the ulcer is covered by slough (yellow, lane, helton, green or brown) and/or eschar (lane, brown or black) in the wound bed. (Template Last Revised: June 2020) Coccyx pressure ulcer stage II, POA MTDD
[2021-01-22] MEDS ORDERED: DEXTROSE 5%-0.45% NACL 1,000 ML with SODIUM BICARB (1 MEQ/ML) 50 ML IV SCH ×2 (16:00)
[2021-01-22 17:20] LABS: Calcium 8.3 mg/dL (8.4-10.2); Potassium 3.6 mmol/L (3.5-5.1)
--- NOTE | 2021-01-22 17:44 | PN ---
PROGRESS NOTE DATE OF SERVICE: 01/22/2021 REASON FOR FOLLOWUP: Urinary tract infection. INTERVAL HISTORY: The patient is afebrile. The patient is currently breathing comfortably. Denies any chest pain, shortness of breath or cough. No nausea, no vomiting. No abdominal pain or diarrhea. PHYSICAL EXAMINATION: Blood pressure 128/91 with a pulse of 70, temperature 97.6. He is 99% on room air. General description is a middle-aged male lying in bed in no distress. RESPIRATORY SYSTEM: Unlabored breathing. Clear to auscultation anteriorly. HEART: S1, S2. Regular rate and rhythm. ABDOMEN: Soft. No tenderness. LABS: Hemoglobin 7.9, white count 9.1, creatinine 1.29. Urine is showing Gram-negative bacilli. DIAGNOSTIC IMPRESSION AND PLAN: Patient with symptomatic Gram-negative urinary tract infection. Patient is covered with cefepime; to continue while waiting for the to finalize and monitor his clinical course closely. MMODL / IJN: [id number] /
[2021-01-22] MEDS: ALPRAZolam 0.25 MG TAB PO PRN (21:41)
[2021-01-22] MEDS: ATORVASTATIN 10 MG TAB PO SCH (21:42)
[2021-01-22] MEDS ORDERED: LORazepam 1 MG TAB PO STA (21:57)
[2021-01-23] MEDS: LACTATED RINGERS 1,000 ML IV SCH ×2 (02:56→13:17)
[2021-01-23] MEDS: MIDODRINE 5 MG TAB PO SCH ×3 (06:32→17:40)
[2021-01-23 06:43] LABS: Basophils % (A) 0 %; Eosinophils # (A) 0.1 k/uL (0-0.7); Eosinophils % (A) 1 %; HCT 23.5 % (39.0-53.0); HGB 8.6 gm/dL (13.0-17.5); Hyperchromasia Moderate; Lymphocytes # (A) 0.7 k/uL (1.0-4.8); Lymphocytes % (A) 9 %; MCH 29.9 pg (25.0-35.0); MCHC 36.6 g/dL (31.0-37.0); MCV 81.7 fL (80.0-100.0); Mean Platelet Volume 7.4; Monocytes # (A) 0.4 k/uL (0-1.0); Monocytes % (A) 5 %; Neutrophils # (A) 6.8 k/uL (1.3-7.7); Neutrophils % (A) 83 %; Platelet Count 201 k/uL (150-450); Poikilocytosis Slight; RBC 2.87 m/uL (4.30-5.90); RDW 14.3 % (11.5-15.5); WBC 8.2 k/uL (3.8-10.6)
[2021-01-23 07:20] LABS: Calcium 7.7 mg/dL (8.4-10.2); Potassium 3.2 mmol/L (3.5-5.1)
--- NOTE | 2021-01-23 08:43 | P.CONS ---
History of Present Illness - Reason for Consult Consult date: 01/21/21 Sepsis Requesting physician: Shankar Galaviz - Chief Complaint Confusion and low blood pressure x 1day - History of Present Illness History of present illness : Patient is 55-year-old male with a past medical history significant for quadriplegia from a prior spinal cord injury patient did have a history of recurrent urinary tract infection apparently the patient have a cystoscopy at the urologist office this week secondary to recurrent infection the patient has been on oral Keflex with last few days patient has been about the hospital for increasing confusion and her low blood pressure patient did have some treatment denies high-grade fever patient denies having any chest pain or shortness of breath or cough no abdominal pain no diarrhea patient did mention he did have decreased oral intake nausea but no vomiting with the symptoms the patient was evaluated by ER physician on arrival to the ER the patient was afebrile patient was hypertensive with a systolic of 72 patient was started on IV fluid and has been admitted to the ICU patient did have elevated white count of 12.8 with a left shift did have elevated BUN/creatinine liver exams are normal urine was positive with more than 22 WBC leukocyte esterase was positive patient did have a chest x-ray no acute process patient has been started on cefepime infectious disease was consulted for furthe r management of antibiotic therapy Review of system: CONSTITUTIONAL: Positive for weakness along with chills but denies high-grade fever. EYES: No complaint. ENT: No complaint. RESPIRATORY: No complaint. CARDIOVASCULAR: No complaint. GENITOURINARY as per history of present illness. GASTROINTESTINAL as per history of present illness. MUSCULOSKELETAL: No complaint. INTEGUMENTARY: No complaint. PSYCHOLOGIC: No complaint. ENDOCRINE: No complaint. NEUROLOGIC: No complaint. Past medical history : Reviewed, documented below Past surgical history : Reviewed, documented below Social history: Reviewed, documented below Medications: Reviewed, as documented below EXAMINATION: Vital sigans= Reviewed and documented below GENERAL DESCRIPTION: Middle-aged male lying in bed, no distress. No tachypnea or accessory muscle of respiration use. HEENT: Shows Pallor , no scleral icterus. Oral mucous membrane is dry. NECK: Trachea central, no thyromegaly. LUNGS: Unlabored breathing. Clear to auscultation anteriorly. No wheeze or crackle. HEART: S1, S2, regular rate and rhythm. ABDOMEN: Soft, no tenderness , guarding or rigidity EXTREMITIES: No edema of feet. SKIN: No rash, no masses palpable. NEUROLOGICAL: The patient is awake, alert, oriented x3, mood and affect normal. LABS AND RADIOLOGY: Reviewed results see below Assessment : Patient presented to hospital with confusion and weakness decreased oral intake this patient noticed to have significant dehydration prerenal also with a component of symptomatic ureteric infection with significantly positive UA and elevated white count will need to cover for the enteric gram-negative with a likely pathogen Plan: 1-cefepime 2 g every 12 hours dose has been adjusted to the kidney function 2-gentle IV fluid We will follow on clinical condition and cultures to further adjust medication if needed Thank you for this consultation we will follow the patient along with you 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 History of Any Multi-Drug Resistant Organisms: MRSA, Other MDRO Year Discovered:: 09/24/17 MRSA MDRO Source:: Foot-MRSA; Urine-MDROs Additional Past Surgical History / Comment(s): multiple surgeries/skin grafts for pressure sores, right ureteroscopy with lithotripsy, external sphincetrotomy 1990 and 1994, cystoscopy with irrigation of blood clots from bladder, trach. & peg tube/ since removed, picc lines Past Anesthesia/Blood Transfusion Reactions: No Reported Reaction Past Psychological History: No Psychological Hx Reported Additional Psychological History / Comment(s): pt lives at home with his mom and brother who are his care givers. pt quadrapelic, bedbound but with lift to w/c. unable to write or use standard call light- has condom cath in place. needs assist with eating Smoking Status: Never smoker Past Alcohol Use History: None Reported Past Drug Use History: None Reported - Past Family History Mother Family Medical History: No Reported History Additional Family Medical History / Comment(s): Mother is healthy. Father Family Medical History: COPD Additional Family Medical History / Comment(s): Father at the age of 65yrs. Medications and Allergies Home Medications Medication Instructions Recorded Confirmed Type levETIRAcetam [Keppra Xr] 500 mg PO DAILY 08/19/18 01/21/21 History Atorvastatin [Lipitor] 10 mg PO HS 08/24/20 01/21/21 History Hydrocortisone Oint 1 applic TOPICAL DAILY PRN 08/24/20 01/21/21 History [Hydrocortisone 2.5% Oint] Cephalexin [Keflex] 500 mg PO Q8HR 01/21/21 01/21/21 History Allergies Allergy/AdvReac Type Severity Reaction Status Date / Time Sulfa (Sulfonamide Allergy Rash/Hives Verified 01/21/21 07:01 Antibiotics) Physical Exam Vitals: Vital Signs Temp Pulse Resp BP Pulse Ox 01/21/21 15:30 80 11 L 101/82 97 01/21/21 15:00 87 11 L 80/48 96 01/21/21 14:45 80 8 L 80/48 97 01/21/21 14:30 79 11 L 112/65 96 01/21/21 14:15 80 13 84/66 97 01/21/21 14:00 80 17 92/58 96 01/21/21 13:45 82 16 113/69 97 01/21/21 13:30 80 20 117/77 97 01/21/21 13:15 80 9 L 111/66 97 01/21/21 13:00 81 17 111/75 97 01/21/21 12:45 82 17 100/62 98 01/21/21 12:30 81 14 96/84 96 01/21/21 12:15 80 12 111/93 96 01/21/21 12:00 82 10 L 112/72 97 01/21/21 11:45 75 12 95/72 97 01/21/21 11:30 76 10 L 84/57 97 01/21/21 11:15 80 11 L 91/69 97 01/21/21 11:00 81 14 100/70 97 01/21/21 10:40 98.2 F 86 10 L 126/64 96 01/21/21 10:13 98 F 90 18 109/74 97 01/21/21 09:55 92 20 94/69 97 01/21/21 08:58 77 18 109/72 97 01/21/21 08:18 81 15 113/72 99 01/21/21 08:08 75 16 81/57 96 01/21/21 07:50 74 20 78/46 97 01/21/21 07:22 69 20 95 01/21/21 06:59 98.8 F 75 18 72/37 96 Intake and Output 01/21/21 01/21/21 01/21/21 06:59 14:59 22:59 Intake Total 521.095 150 Output Total 3200 Balance -2678.905 150 Intake: Intake, IV Titration 521.095 150 Amount Lactated Ringers 1,000 ml 150 150 @ 150 mls/hr IV .Q6H40M MANDA Rx#:[id number] Norepinephrine 4 mg In 111.095 Sodium Chloride 0.9% 250 ml @ 0.05 MCG/KG/MIN 16. 418 mls/hr IV .[id number] MANDA Rx#:[id number] Sodium Chloride 0.9% 1, 260 000 ml @ 130 mls/hr IV . Q7H42M MANDA Rx#:[id number] Output: Urine 3200 Other: Voiding Method External Catheter Weight 86.183 kg 86.183 kg Results CBC & Chem 7: 01/23/21 05:22 01/23/21 05:22 Labs: Abnormal Lab Results - Last 24 Hours (Table) 01/21/21 01/21/21 01/21/21 Range/Units 07:20 07:20 07:20 WBC 12.8 H (3.8-10.6) k/uL RBC 2.83 L (4.30-5.90) m/uL Hgb 8.4 L (13.0-17.5) gm/dL Hct 22.5 L (39.0-53.0) % MCV 79.7 L (80.0-100.0) fL MCHC 37.5 H (31.0-37.0) g/dL Neutrophils # 11.9 H (1.3-7.7) k/uL Lymphocytes # 0.2 L (1.0-4.8) k/uL APTT 30.3 H (22.0-30.0) sec Sodium 110 L* (137-145) mmol/L Potassium 3.2 L (3.5-5.1) mmol/L Chloride 82 L (98-107) mmol/L Carbon Dioxide 16 L (22-30) mmol/L BUN 65 H (9-20) mg/dL Creatinine 1.79 H (0.66-1.25) mg/dL Glucose 123 H (74-99) mg/dL POC Glucose (mg/dL) (75-99) mg/dL Calcium 7.2 L (8.4-10.2) mg/dL Total Protein 5.6 L (6.3-8.2) g/dL Albumin 2.8 L (3.5-5.0) g/dL Urine Protein (Negative) Urine Blood (Negative) Ur Leukocyte Esterase (Negative) Urine RBC (0-5) /hpf Urine WBC (0-5) /hpf Urine Bacteria (None) /hpf Urine Mucus (None) /hpf 01/21/21 01/21/21 Range/Units 07:27 10:31 WBC (3.8-10.6) k/uL RBC (4.30-5.90) m/uL Hgb (13.0-17.5) gm/dL Hct (39.0-53.0) % MCV (80.0-100.0) fL MCHC (31.0-37.0) g/dL Neutrophils # (1.3-7.7) k/uL Lymphocytes # (1.0-4.8) k/uL APTT (22.0-30.0) sec Sodium (137-145) mmol/L Potassium (3.5-5.1) mmol/L Chloride (98-107) mmol/L Carbon Dioxide (22-30) mmol/L BUN (9-20) mg/dL Creatinine (0.66-1.25) mg/dL Glucose (74-99) mg/dL POC Glucose (mg/dL) 165 H (75-99) mg/dL Calcium (8.4-10.2) mg/dL Total Protein (6.3-8.2) g/dL Albumin (3.5-5.0) g/dL Urine Protein 1+ H (Negative) Urine Blood Small H (Negative) Ur Leukocyte Esterase Large H (Negative) Urine RBC 49 H (0-5) /hpf Urine WBC >182 H (0-5) /hpf Urine Bacteria Moderate H (None) /hpf Urine Mucus Rare H (None) /hpf Microbiology - Last 24 Hours (Table) 01/21/21 07:27 Urine Culture - Preliminary Urine,Clean Catch
[2021-01-23] MEDS: CEFEPIME 2 GM in SODIUM CHLORIDE 0.9% 100 ML IVPB SCH ×2 (09:32→20:12)
[2021-01-23] MEDS: HEPARIN SODIUM,PORCINE/PF 5,000 UNIT/0.5 ML SYRINGE SQ SCH ×3 (09:33→20:12)
[2021-01-23] MEDS: PANTOPRAZOLE 40 MG/10 ML VIAL IV SCH (09:33)
[2021-01-23] MEDS: levETIRAcetam 250 MG TAB PO SCH ×2 (09:33→20:12)
--- NOTE | 2021-01-23 12:01 | P.PN ---
Progress Note - Text Progress Note Date: 01/23/21 Chief Complaint: Not feeling well History of presenting complaint: This is a 55-year-old patient being followed by visiting physicians Dr. Flores.. 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 has a chronic neurogenic bladder uses a condom catheter, with frequent UTIs. kidney stones. previous decubitus ulcers. Has a bowel program with suppository every other day. Sometimes has to manually evacuated /stool. Lives with his mother. Patient now presents with fevers, perspiring, more tired. Slightly confused. At home. Symptoms the present for about 5 days. Having hiccups. Decrease appetite. Normally the blood pressure runs in the 90s. This is a condom catheter that is changed every 2 days. Patient has received both his vaccination for COVID 19. Patient is accompanied by his mother the bedside. Patient denies any urinary symptoms. Admitted with septic/hypertensive shock from UTI, but delirium. Admitted to ICU. IV fluids, IV levo fed, IV cefepime. Acute kidney injury, metabolic acidosis, severe hyponatremia. 01/22/2021: In the ICU. Feeling better. Did tolerate her breakfast. On IV levo fed. Getting IV fluids. Note that patient's systolic blood pressures run in the 90s. Urine culture growing gram-negative bacilli 01/23/2021: Moved out of ICU. Eating well. Taking lots of fluids. Sodium is low. On IV antibiotics. Otherwise comfortable. Review of systems: Was done for constitutional, cardiovascular, GI, pulmonary. relevant finding as above Active Medications Acetaminophen (Acetaminophen Tab 325 Mg Tab) 650 mg PO Q4HR PRN PRN Reason: Fever and/or Mild Pain Alprazolam (Alprazolam 0.25 Mg Tab) 0.125 mg PO Q6HR PRN PRN Reason: Mild Anxiety Last Admin: 01/22/21 21:41 Dose: 0.125 mg Documented by: Atorvastatin Calcium (Atorvastatin 10 Mg Tab) 10 mg PO HS MANDA Last Admin: 01/22/21 21:42 Dose: 10 mg Documented by: Heparin Sodium (Porcine) (Heparin Sodium,Porcine/Pf 5,000 Unit/0.5 Ml Syringe) 5,000 unit SQ Q8HR MANDA Last Admin: 01/23/21 09:33 Dose: 5,000 unit Documented by: Hydromorphone HCl (Hydromorphone 1 Mg/Ml 1 Ml Syringe) 1 mg IVP Q2HR PRN PRN Reason: Pain Scale 6 to 7 Lactated Ringer's (Lactated Ringers) 1,000 mls @ 100 mls/hr IV .Q10H [facility] Last Admin: 01/23/21 02:56 Dose: Not Given Documented by: Cefepime HCl 2 gm/ Sodium (Chloride) 100 mls @ 25 mls/hr IVPB Q12HR [facility] Last Admin: 01/23/21 09:32 Dose: 25 mls/hr Documented by: Levetiracetam (Levetiracetam 250 Mg Tab) 250 mg PO BID [facility] Last Admin: 01/23/21 09:33 Dose: 250 mg Documented by: Midodrine (Midodrine 5 Mg Tab) 10 mg PO AC-TID [facility] Last Admin: 01/23/21 06:32 Dose: 10 mg Documented by: Miscellaneous Information (Potassium Replacement Protocol 1 Each Misc) 1 each MISCELLANE DAILY PRN; Protocol PRN Reason: Per Protocol Naloxone HCl (Naloxone 0.4 Mg/Ml 1 Ml Vial) 0.2 mg IV Q2M PRN PRN Reason: Opioid Reversal Pantoprazole Sodium (Pantoprazole 40 Mg/10 Ml Vial) 40 mg IV DAILY [facility] Last Admin: 01/23/21 09:33 Dose: 40 mg Documented by: Sodium Chloride (Sodium Chloride Tab 1 Gm Tab) 1 gm PO TID [facility] Social history: Does not smoke or drink alcohol. Lives at home. Mother and brother both care givers. Patient is bedbound uses a lift to wheelchair. Needs assistance with eating. Family history: Reviewed, noncontributory to presentation Physical examination: VITAL SIGNS: 98, 57, 18, 94/52, 94% room air GENERAL: Laying in bed, awake, comfortable EYES: Pupils equal. Conjunctiva normal. HEENT: External appearance of nose and ears normal, oral cavity grossly normal. NECK: JVD unable to assess; masses not palpable. HEART: First and second heart sounds are normal; no edema. LUNGS: Respiratory rate normal; clear to auscultation. ABDOMEN: Soft, nontender, liver spleen not palpable, no masses palpable, condom catheter PSYCH: Alert and oriented x3; mood and affect normal. NEUROLOGICAL, 0/5 power of the lower extremity, lower extremities contracted. Decreased power in upper extremity. bi- lateral foot drop INVESTIGATIONS, reviewed in the clinical context: January 23: White count 8.2 hemoglobin 8.6 sodium 120 potassium 3.2 bicarb 20 creatinine 1.08 January 22: WBC 9.1 hemoglobin 7.9 platelets with 62 sodium 119 potassium 3.4 BUN 42 creatinine 1.29 bicarb 14 WBC 12.8 hemoglobin 8.4 platelets 179 sodium 110 potassium 3.2. 65 creatinine 1.79 bicarb 16 UA positive for leukoesterase, WBC Coronavirus [PCR]: Not detected EKG tracing personally reviewed by me-normal sinus rhythm, 72/m some T-wave changes Chest x-ray film personally reviewed by me-: Rotated. No obvious infiltration Assessment and plan: -Septic shock from acute UTI: Better Of levo fed. Cutback IV fluids -Acute UTI with cystitis, recurrent from condom catheter IV cefepime 2 g every 12. Gram-negative bacilli -Chronic neurogenic bladder for spinal cord injury Chronic condom catheter that is changed every 2 days -Severe Hyponatremia with hypovolemic: Slow to respond Fluid restrict 50 mL an hour. Add salt tablets -Metabolic acidosis: Changed to by mouth sodium bicarb -GERD Pepcid -Chronic seizure disorder. Continue Keppra. -Quadriplegia due to C5-C6 injury in 1994 Requires a lift for transfers -Chronic medical debility -Acute delirium at home from sepsis fever: Improved Follow clinically -Full code DC bicarb drip. Add salt tablets. Fluid restriction. Avoid free water. Discussed with the patient. Continue IV antibiotics.
[2021-01-23] MEDS: SODIUM CHLORIDE TAB 1 GM TAB PO SCH ×3 (13:16→20:12)
--- NOTE | 2021-01-23 17:48 | PN ---
PROGRESS NOTE DATE OF SERVICE: 01/23/2021. REASON FOR FOLLOWUP: Pseudomonas urinary tract infection. INTERVAL HISTORY: The patient is afebrile. The patient is currently breathing comfortably, feeling better. No chest pain, shortness of breath or cough. No abdominal pain or diarrhea. PHYSICAL EXAMINATION: Blood pressure is 93/58 with a pulse of 50, temperature 97.3. He is 98% on room air. General description is a middle-aged male lying in bed in no distress. RESPIRATORY SYSTEM: Unlabored breathing. Clear to auscultation anteriorly. HEART: S1, S2. Regular rate and rhythm. ABDOMEN: Soft. No tenderness. LABS: His kidney function has improved with creatinine 1.08, white count of 8.2. DIAGNOSTIC IMPRESSION AND PLAN: Patient with Pseudomonas urinary tract infection. Unfortunately no oral option is available. Patient is covered with cefepime. Dose should be adjusted up to q.8 hours, as the patient's kidney function has improved. He will need a midline and is planning for about a week of IV antibiotic therapy in the outpatient setting. Continue supportive care. MMODL / IJN: [id number] /
[2021-01-23] MEDS: ALPRAZolam 0.25 MG TAB PO PRN (20:12)
[2021-01-23] MEDS: ATORVASTATIN 10 MG TAB PO SCH (20:12)
[2021-01-24] MEDS: LACTATED RINGERS 1,000 ML IV SCH ×2 (04:08→10:44)
[2021-01-24] MEDS: MIDODRINE 5 MG TAB PO SCH ×3 (05:14→18:35)
[2021-01-24] MEDS: HEPARIN SODIUM,PORCINE/PF 5,000 UNIT/0.5 ML SYRINGE SQ SCH ×2 (10:43→18:35)
[2021-01-24] MEDS: CEFEPIME 2 GM in SODIUM CHLORIDE 0.9% 100 ML IVPB SCH ×2 (10:45→21:20)
[2021-01-24] MEDS: levETIRAcetam 250 MG TAB PO SCH ×2 (10:45→21:19)
[2021-01-24] MEDS: PANTOPRAZOLE 40 MG/10 ML VIAL IV SCH (10:45)
[2021-01-24] MEDS: SODIUM CHLORIDE TAB 1 GM TAB PO SCH ×4 (10:45→21:20)
[2021-01-24] MEDS: SODIUM CHLORIDE 0.9% 1,000 ML IV SCH (13:13)
--- NOTE | 2021-01-24 13:13 | P.PN ---
Progress Note - Text Progress Note Date: 01/24/21 Chief Complaint: Not feeling well History of presenting complaint: This is a 55-year-old patient being followed by visiting physicians Dr. Flores.. 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 has a chronic neurogenic bladder uses a condom catheter, with frequent UTIs. kidney stones. previous decubitus ulcers. Has a bowel program with suppository every other day. Sometimes has to manually evacuated /stool. Lives with his mother. Patient now presents with fevers, perspiring, more tired. Slightly confused. At home. Symptoms the present for about 5 days. Having hiccups. Decrease appetite. Normally the blood pressure runs in the 90s. This is a condom catheter that is changed every 2 days. Patient has received both his vaccination for COVID 19. Patient is accompanied by his mother the bedside. Patient denies any urinary symptoms. Admitted with septic/hypertensive shock from UTI, but delirium. Admitted to ICU. IV fluids, IV levo fed, IV cefepime. Acute kidney injury, metabolic acidosis, severe hyponatremia. 01/22/2021: In the ICU. Feeling better. Did tolerate her breakfast. On IV levo fed. Getting IV fluids. Note that patient's systolic blood pressures run in the 90s. Urine culture growing gram-negative bacilli 01/23/2021: Moved out of ICU. Eating well. Taking lots of fluids. Sodium is low. On IV antibiotics. Otherwise comfortable. 01/24/2021: Laying in bed. Oral intake fair. Brother Jayro's at the bedside. Sodium still running low. On salt tablets. Salt tablets dose increase. LR fluids changed to saline Review of systems: Was done for constitutional, cardiovascular, GI, pulmonary. relevant finding as above Active Medications Acetaminophen (Acetaminophen Tab 325 Mg Tab) 650 mg PO Q4HR PRN PRN Reason: Fever and/or Mild Pain Alprazolam (Alprazolam 0.25 Mg Tab) 0.125 mg PO Q6HR PRN PRN Reason: Mild Anxiety Last Admin: 01/23/21 20:12 Dose: 0.125 mg Documented by: Atorvastatin Calcium (Atorvastatin 10 Mg Tab) 10 mg PO HS MANDA Last Admin: 01/23/21 20:12 Dose: 10 mg Documented by: Heparin Sodium (Porcine) (Heparin Sodium,Porcine/Pf 5,000 Unit/0.5 Ml Syringe) 5,000 unit SQ Q8HR [facility] Last Admin: 01/24/21 10:43 Dose: 5,000 unit Documented by: Hydromorphone HCl (Hydromorphone 1 Mg/Ml 1 Ml Syringe) 1 mg IVP Q2HR PRN PRN Reason: Pain Scale 6 to 7 Last Admin: 01/23/21 20:11 Dose: 1 mg Documented by: Cefepime HCl 2 gm/ Sodium (Chloride) 100 mls @ 25 mls/hr IVPB Q12HR [facility] Last Admin: 01/24/21 10:45 Dose: 25 mls/hr Documented by: Sodium Chloride (Saline 0.9%) 1,000 mls @ 75 mls/hr IV .[id number] [facility] Levetiracetam (Levetiracetam 250 Mg Tab) 250 mg PO BID [facility] Last Admin: 01/24/21 10:45 Dose: 250 mg Documented by: Midodrine (Midodrine 5 Mg Tab) 10 mg PO AC-TID [facility] Last Admin: 01/24/21 05:14 Dose: 10 mg Documented by: Miscellaneous Information (Potassium Replacement Protocol 1 Each Misc) 1 each MISCELLANE DAILY PRN; Protocol PRN Reason: Per Protocol Naloxone HCl (Naloxone 0.4 Mg/Ml 1 Ml Vial) 0.2 mg IV Q2M PRN PRN Reason: Opioid Reversal Sodium Chloride (Sodium Chloride Tab 1 Gm Tab) 2 gm PO QID [facility] Social history: Does not smoke or drink alcohol. Lives at home. Mother and brother both caregivers. Patient is bedbound uses a lift to wheelchair. Needs assistance with eating. Family history: Reviewed, noncontributory to presentation Physical examination: VITAL SIGNS: 98.4, 60, 18, 91/51, 97% room air GENERAL: Laying in bed, awake, comfortable EYES: Pupils equal. Conjunctiva normal. HEENT: External appearance of nose and ears normal, oral cavity grossly normal. NECK: JVD unable to assess; masses not palpable. HEART: First and second heart sounds are normal; no edema. LUNGS: Respiratory rate normal; clear to auscultation. ABDOMEN: Soft, nontender, liver spleen not palpable, no masses palpable, condom catheter PSYCH: Alert and oriented x3; mood and affect normal. NEUROLOGICAL, 0/5 power of the lower extremity, lower extremities contracted. Decreased power in upper extremity. bi- lateral foot drop INVESTIGATIONS, reviewed in the clinical context: January 24: Obese 8.2 hemoglobin 8.6 platelets 201 sodium 120 potassium 3.2 bicarb 20 creatinine 1.08 January 23: White count 8.2 hemoglobin 8.6 sodium 120 potassium 3.2 bicarb 20 creatinine 1.08 January 22: WBC 9.1 hemoglobin 7.9 platelets with 62 sodium 119 potassium 3.4 BUN 42 creatinine 1.29 bicarb 14 WBC 12.8 hemoglobin 8.4 platelets 179 sodium 110 potassium 3.2. 65 creatinine 1.79 bicarb 16 UA positive for leukoesterase, WBC Coronavirus [PCR]: Not detected EKG tracing personally reviewed by me-normal sinus rhythm, 72/m some T-wave changes Chest x-ray film personally reviewed by me-: Rotated. No obvious infiltration Assessment and plan: -Septic shock from acute UTI: Better Off levo fed. Saline -Acute UTI with cystitis, recurrent from condom catheter, from pseudomonas aeruginosa IV cefepime 2 g every 12. -Chronic neurogenic bladder for spinal cord injury Chronic condom catheter that is changed every 2 days -Severe Hyponatremia with hypovolemic: Slow to respond Fluid restrict 1500 mL an hour. Increase salt tablets or 2 tablets 4 times a day. Change IV fluids to normal saline. -Metabolic acidosis: Changed to by mouth sodium bicarb -GERD Pepcid -Chronic seizure disorder. Continue Keppra. -Quadriplegia due to C5-C6 injury in 1994 Requires a lift for transfers -Chronic medical debility -Acute delirium at home from sepsis fever: Improved Follow clinically -Full code Increase salt tablets to 2 tablets 4 times a day. Change lactated Ringer's to normal saline. Pending restriction. Care was discussed with the patient and brother at the bedside. Encouraged salty foods including soups etc.
[2021-01-24] MEDS: ALPRAZolam 0.25 MG TAB PO PRN (21:18)
[2021-01-24] MEDS: ATORVASTATIN 10 MG TAB PO SCH (21:24)
--- NOTE | 2021-01-24 23:16 | PN ---
PROGRESS NOTE DATE OF SERVICE: 01/24/2021 REASON FOR FOLLOWUP: Pseudomonas urinary tract infection. INTERVAL HISTORY: Patient is afebrile. The patient is breathing comfortably. Denies any chest pain, shortness of breath or cough. No abdominal pain. No diarrhea. PHYSICAL EXAMINATION: Blood pressure 111/66 with a pulse of 63, temperature of 98. He is 97% on room air. General description is a middle-aged male lying in bed in no distress. Respiratory system: Unlabored breathing, clear to auscultation anteriorly. Heart S1, S2. Regular rate and rhythm. Abdomen soft, no tenderness. LABS: Hemoglobin 8.6, white count 8.2, creatinine 1.08. DIAGNOSTIC IMPRESSION AND PLAN: Patient with Pseudomonas aeruginosa catheter urinary tract infection in this patient with intermittent sensitivity to patient responding to cefepime. We will get a midline and continue with IV for another week to finished a course of therapy. Close outpatient followup. MMODL / MELISSAN: [id number] /
[2021-01-25 00:43] VITALS: RESP 16
[2021-01-25] MEDS: HEPARIN SODIUM,PORCINE/PF 5,000 UNIT/0.5 ML SYRINGE SQ SCH ×3 (00:56→16:48)
[2021-01-25] MEDS: CEFEPIME 2 GM in SODIUM CHLORIDE 0.9% 100 ML IVPB SCH ×2 (04:16→13:39)
[2021-01-25] MEDS: SODIUM CHLORIDE 0.9% 1,000 ML IV SCH ×2 (04:24→13:41)
[2021-01-25] MEDS: MIDODRINE 5 MG TAB PO SCH ×3 (06:28→16:48)
[2021-01-25 07:59] LABS: African American GFR (CKD) >90 (>60 ml/min/1.73 sqM); Anion Gap 8 mmol/L; Blood Urea Nitrogen 15 mg/dL (9-20); Calcium 7.5 mg/dL (8.4-10.2); Carbon Dioxide 23 mmol/L (22-30); Chloride 106 mmol/L (98-107); Glucose 106 mg/dL (74-99); Non-African American GFR(CKD) >90 (>60 ml/min/1.73 sqM); Sodium 137 mmol/L (137-145)
[2021-01-25] MEDS: SODIUM CHLORIDE TAB 1 GM TAB PO SCH ×3 (09:05→16:48)
[2021-01-25] MEDS: levETIRAcetam 250 MG TAB PO SCH (09:05)
[2021-01-25 10:14] VITALS: TEMP 98.3
[2021-01-25] MEDS: POTASSIUM CHLORIDE ER 20 MEQ TAB.ER PO SCH ×2 (13:40→13:41)
--- NOTE | 2021-01-25 13:44 | PN ---
PROGRESS NOTE DATE OF SERVICE: 01/25/2021. REASON FOR VISIT: Pseudomonas urinary tract infection. INTERVAL HISTORY: Patient is afebrile. He is feeling better. Breathing comfortably. Denies any chest pain, shortness of breath or cough. No vomiting. No abdominal pain. No diarrhea. PHYSICAL EXAMINATION: Blood pressure 122/75, pulse of 71, temperature 98.3. He is 99% on room air. General description is a middle-aged male lying in bed in no distress. Respiratory system: Unlabored breathing, clear to auscultation anteriorly. Heart S1, S2. Regular rate and rhythm. Abdomen soft, no tenderness. LABS: Creatinine normal 0.86. DIAGNOSTIC IMPRESSION AND PLAN: Patient with Pseudomonas urinary tract infection in this patient overall improvement on cefepime to continue for another week to finish a course of therapy and continue supportive care. MMTICOL / MELISSAN: [id number] /
--- NOTE | 2021-01-25 14:25 | P.DS ---
Providers Date of admission: 01/21/21 08:10 Expected date of discharge: 01/25/21 Attending physician: Shankar Galaviz Consults: 01/21/21 08:11 Consult Physician Urgent Consulting Provider: Kike Pillai Consult Reason/Comments: ICU management Do you want consulting provider notified?: Already Contacted 01/21/21 13:57 Consult Physician Routine Consulting Provider: Trenton Oreilly Consult Reason/Comments: Sepsis Do you want consulting provider notified?: Yes Primary care physician: Enoch Flores [facility] Course: Chief Complaint: Not feeling well History of presenting complaint: This is a 55-year-old patient being followed by visiting physicians Dr. Flores.. 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 has a chronic neurogenic bladder uses a condom catheter, with frequent UTIs. kidney stones. previous decubitus ulcers. Has a bowel program with suppository every other day. Sometimes has to manually evacuated /stool. Lives with his mother. Patient now presents with fevers, perspiring, more tired. Slightly confused. At home. Symptoms the present for about 5 days. Having hiccups. Decrease appetite. Normally the blood pressure runs in the 90s. This is a condom catheter that is changed every 2 days. Patient has received both his vaccination for COVID 19. Patient is accompanied by his mother the bedside. Patient denies any urinary symptoms. Admitted with septic/hypertensive shock from UTI, but delirium. Admitted to ICU. IV fluids, IV levo fed, IV cefepime. Acute kidney injury, metabolic acidosis, severe hyponatremia. 01/22/2021: In the ICU. Feeling better. Did tolerate her breakfast. On IV levo fed. Getting IV fluids. Note that patient's systolic blood pressures run in the 90s. Urine culture growing gram-negative bacilli 01/23/2021: Moved out of ICU. Eating well. Taking lots of fluids. Sodium is low. On IV antibiotics. Otherwise comfortable. 01/24/2021: Laying in bed. Oral intake fair. Brother Jayro's at the bedside. Sodium still running low. On salt tablets. Salt tablets dose increase. LR fluids changed to saline 01/25/2021: Laying in bed. Comfortable. Cultures have grown Pseudomonas. Home IV antibiotics and being at age. Patient did get a midline. Questions were answered. Patient received a total of 40 because of potassium today. Discussion and discharge planning more than 35 minutes Consultation: Dr. Pillai in [facility] from critical care Dr. Oreilly from ID Social history: Does not smoke or drink alcohol. Lives at home. Mother and brother both caregivers. Patient is bedbound uses a lift to wheelchair. Needs assistance with eating. Family history: Reviewed, noncontributory to presentation Physical examination: VITAL SIGNS: Afebrile, 72, 16, 102/70, 99% room air GENERAL: Laying in bed, awake, comfortable EYES: Pupils equal. Conjunctiva normal. HEENT: External appearance of nose and ears normal, oral cavity grossly normal. NECK: JVD unable to assess; masses not palpable. HEART: First and second heart sounds are normal; no edema. LUNGS: Respiratory rate normal; clear to auscultation. ABDOMEN: Soft, nontender, liver spleen not palpable, no masses palpable, condom catheter PSYCH: Alert and oriented x3; mood and affect normal. NEUROLOGICAL, 0/5 power of the lower extremity, lower extremities contracted. Decreased power in upper extremity. bi- lateral foot drop INVESTIGATIONS, reviewed in the clinical context: January 25: Cortisol 03 February 17: Obese 8.2 hemoglobin 8.6 platelets 201 sodium 120 potassium 3.2 bicarb 20 creatinine 1.08 January 23: White count 8.2 hemoglobin 8.6 sodium 120 potassium 3.2 bicarb 20 creatinine 1.08 January 22: WBC 9.1 hemoglobin 7.9 platelets with 62 sodium 119 potassium 3.4 BUN 42 creatinine 1.29 bicarb 14 WBC 12.8 hemoglobin 8.4 platelets 179 sodium 110 potassium 3.2. 65 creatinine 1.79 bicarb 16 UA positive for leukoesterase, WBC Coronavirus [PCR]: Not detected EKG tracing personally reviewed by me-normal sinus rhythm, 72/m some T-wave changes Chest x-ray film personally reviewed by me-: Rotated. No obvious infiltration Assessment and plan: -Septic shock from acute UTI: Improved Off levo fed. Saline -Acute UTI with cystitis, recurrent from condom catheter, from pseudomonas aeruginosa IV cefepime 2 g every 12. -DC'd on 7 more days of the same. -Chronic neurogenic bladder for spinal cord injury Chronic condom catheter that is changed every 2 days -Severe Hyponatremia with hypovolemic: Improved Fluid restrict 1500 mL an hour. Given salt tablets. . -Metabolic acidosis: sodium bicarb -GERD Pepcid -Chronic seizure disorder. Continue Keppra. -Quadriplegia due to C5-C6 injury in 1994 Requires a lift for transfers -Chronic medical debility -Acute delirium at home from sepsis fever: Improved Follow clinically -Full code Disposition: Home Plan - Discharge Summary New Discharge Prescriptions: New Cefepime [Maxipime] 2 gm IVPB Q8H #7 each Midodrine [ProAmatine] 10 mg PO AC-TID #90 tab Continue levETIRAcetam [Keppra Xr] 500 mg PO DAILY Hydrocortisone Oint [Hydrocortisone 2.5% Oint] 1 applic TOPICAL DAILY PRN PRN Reason: Rash Atorvastatin [Lipitor] 10 mg PO HS Discontinued Cephalexin [Keflex] 500 mg PO Q8HR Discharge Medication List levETIRAcetam [Keppra Xr] 500 mg PO DAILY 08/19/18 [History] Atorvastatin [Lipitor] 10 mg PO HS 08/24/20 [History] Hydrocortisone Oint [Hydrocortisone 2.5% Oint] 1 applic TOPICAL DAILY PRN 08/24/20 [History] Cefepime [Maxipime] 2 gm IVPB Q8H #7 each 01/25/21 [Rx] Midodrine [ProAmatine] 10 mg PO AC-TID #90 tab 01/25/21 [Rx] Follow up Appointment(s)/Referral(s): [facility],Infusion [NON-STAFF] - Enoch Flores MD [Primary Care Provider] - 1-2 days [facility] Visiting Nurse, [NON-STAFF] - Patient Instructions/Handouts: Urinary Tract Infection in Men (ED), Mclaughlin Catheter Placement and Care (DC)
[2021-01-25] MEDS ORDERED: POTASSIUM CHLORIDE ER 20 MEQ TAB.ER PO SCH (14:30)
[2021-01-25 16:47] VITALS: BP 93/68; PULSE 76
== END 2021-01-25 19:25 | disposition home health service (06) | DRG 698 ==
LOC: EC 06:50 → 2SICU 08:10 → 3SCARD 01-22 19:59
PROVIDERS: ADMIT Hospitalist; ATTEND Hospitalist
PROC: 3E033XZ Introduction of Vasopressor into Peripheral Vein, Percutaneous Approach (ICD-10-PCS; principal; 2021-01-21)
PROC: 02HV33Z Insertion of Infusion Device into Superior Vena Cava, Percutaneous Approach (ICD-10-PCS; 2021-01-25 08:25)
DX: T83.518A Infection and inflammatory reaction due to other urinary catheter, initial encounter (principal); A41.52 Sepsis due to Pseudomonas; R65.21 Severe sepsis with septic shock; G82.50 Quadriplegia, unspecified; N30.00 Acute cystitis without hematuria; N17.9 Acute kidney failure, unspecified; E87.2 Acidosis; E87.1 Hypo-osmolality and hyponatremia; E78.5 Hyperlipidemia, unspecified; E86.0 Dehydration; E86.1 Hypovolemia; E87.6 Hypokalemia; L89.152 Pressure ulcer of sacral region, stage 2; Z20.822 Contact with and (suspected) exposure to COVID-19; K21.9 Gastro-esophageal reflux disease without esophagitis; G40.909 Epilepsy, unspecified, not intractable, without status epilepticus; N31.9 Neuromuscular dysfunction of bladder, unspecified; Y73.2 Prosthetic and other implants, materials and accessory gastroenterology and urology devices associated with adverse incidents; Z87.440 Personal history of urinary (tract) infections; Z87.442 Personal history of urinary calculi; Z86.14 Personal history of Methicillin resistant Staphylococcus aureus infection; Z74.01 Bed confinement status; Z87.01 Personal history of pneumonia (recurrent); Z79.899 Other long term (current) drug therapy; Z82.5 Family history of asthma and other chronic lower respiratory diseases; Z88.2 Allergy status to sulfonamides
CPT/HCPCS: 31500; 36410; 36415; 71045; 76937; 80048; 80053; 81001; 82533; 83605; 83930; 84132; 84484; 85025; 85610; 85730; 87040; 87077; 87086; 87186; 87635; 93005; 94760; 96360; 96361; 96365; 96375; 99291

== ENCOUNTER → 2021-03-05 | Outpatient (CLI) | payer MEDICARE, BC ==
--- NOTE | 2021-03-05 17:11 | CT ---
EXAMINATION TYPE: CT abdomen pelvis wo con DATE OF EXAM: 03/05/2021 COMPARISON: 04/06/2018 HISTORY: 55-year-old male N20.0, Calculus of kidney. Patient with history of spinal cord injury. CT DLP: 546.10 mGycm. Automated exposure control for dose reduction was used. TECHNIQUE: Contiguous axial scanning of the abdomen and pelvis without IV contrast. Coronal and sagit carla reconstructions performed. FINDINGS: The heart normal size with small pericardial effusion measuring 6 mm thick. Lung bases clear without pleural effusion. Tiny hiatal hernia. Noncontrast appearance of the liver, gallbladder, adrenal glands, spleen, and pancreas show no gross abnormality. There is mild to moderate bilateral hydronephrosis and bilateral hydroureter. Renal cortical thinning compatible with chronic medical renal disease. Small renal calculi are present bilaterally, the larg est measuring up to 1.5 cm on the right and 7 mm on the left. No ureteral calculus is identified. No dilated small bowel, free fluid, free air. No mesenteric or retroperitoneal lymphadenopathy. Normal appendix. Scattered mild stool burden. Redundant sigmoid colon. Dilated urethra measuring up to 1.2 cm wide. Patulous and distended bladder with redemonstration of a ir-fluid level possibly due to instrumentation. No Scattered prostatic calcifications. The prostate gland measuring 4.5 cm wide. Otherwise, no abnormal fluid collection in the pelvis or pelvic lymphadenopathy. 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 Healed right femoral neck f racture deformity. Severe osteopenia and diffuse muscle atrophy. Redemonstrated hypoplasia of the co ccyx. IMPRESSION: 1. Bilateral nephrolithiasis measuring up to 1.5 cm on the right and 7 mm on the left. 2. Mild to moderate bilateral hydronephrosis and hydroureter. No ureteral calculus is identified. 3. Patulous and distended bladder, possible neurogenic bladder. The urethra is dilated up to 1.2 cm possibly due to chronic catheterization. Air-fluid level in the bladder is also redemonstrated and tamie strong relates to instrumentation.
== END | disposition home or self-care (01) ==
LOC: RADCTMAIN 15:39
PROVIDERS: ATTEND Urology
DX: N20.0 Calculus of kidney (principal); N13.30 Unspecified hydronephrosis; N13.4 Hydroureter; N32.89 Other specified disorders of bladder
CPT/HCPCS: 74176

== ENCOUNTER → 2021-06-25 | Outpatient (CLI) | payer MEDICARE, BC ==
[2021-06-25 13:59] LABS: Amorphous Sediment,Urine Rare /hpf; Appearance,Urine Cloudy (Clear); Bacteria,Urine Many /hpf; Bilirubin,Urine Negative (Negative); Blood,Urine Negative (Negative); Color,Urine Light Yellow; Glucose,Urine (UA) Negative (Negative); Ketones,Urine Negative (Negative); Leukocyte Esterase,Urine Large (Negative); Mucus,Urine Few /hpf; Nitrite,Urine Positive (Negative); PH, Urine 6.5 (5.0-8.0); Protein,Urine Negative (Negative); RBC,Urine 2 /hpf (0-5); Specific Gravity,Urine 1.006 (1.001-1.035); Urobilinogen,Urine <2.0 mg/dL (<2.0); WBC,Urine 49 /hpf (0-5)
== END | disposition home or self-care (01) ==
LOC: LABWHC1 10:52
PROVIDERS: ATTEND Nurse Practitioner Family
DX: N39.0 Urinary tract infection, site not specified (principal)
CPT/HCPCS: 81001; 87086

== ENCOUNTER → 2021-11-03 | Day surgery (SDC) | payer BC, MEDICARE ==
[~2021-11-03] MED LIST: MEROPENEM 1 GM in SODIUM CHLORIDE 0.9% 100 ML IVPB ONE
== END ==
LOC: CATHCVL 08:46
PROVIDERS: ATTEND Nurse Practitioner Family
DX: N39.0 Urinary tract infection, site not specified (principal); Z16.35 Resistance to multiple antimicrobial drugs; G40.909 Epilepsy, unspecified, not intractable, without status epilepticus; N31.9 Neuromuscular dysfunction of bladder, unspecified; Z79.899 Other long term (current) drug therapy; E87.1 Hypo-osmolality and hyponatremia; L21.9 Seborrheic dermatitis, unspecified; Z88.2 Allergy status to sulfonamides; Z83.6 Family history of other diseases of the respiratory system
CPT/HCPCS: 36410; 76937; C1751; J2185

== ENCOUNTER 2023-07-26 10:11 | Inpatient (IN) | payer MEDICARE ==
[2023-07-26] MEDS: SODIUM CHLORIDE 0.9% 2,000 ML IV STA (10:30)
[2023-07-26] MEDS ORDERED: VANCOMYCIN IV PER PHARMACY 1 EACH MISC MISCELLANE PRN (10:59)
[2023-07-26] MEDS: ONDANSETRON 4 MG/2 ML VIAL IVP STA (11:22)
[2023-07-26 11:23] LABS: ALT 38 U/L (4-49); AST 42 U/L (17-59); African American GFR (CKD) >90 (>60 ml/min/1.73 sqM); Alkaline Phosphatase 171 U/L (38-126); Amylase 151 U/L (30-110); Anion Gap 12 mmol/L; Blood Urea Nitrogen 67 mg/dL (9-20); Calcium 8.3 mg/dL (8.4-10.2); Carbon Dioxide 21 mmol/L (22-30); Chloride 87 mmol/L (98-107); Glucose 90 mg/dL (74-99); Lipase 1220 U/L (23-300); Non-African American GFR(CKD) 84 (>60 ml/min/1.73 sqM); Potassium 4.1 mmol/L (3.5-5.1); Sodium 120 mmol/L (137-145); Total Bilirubin 3.3 mg/dL (0.2-1.3); Total Protein 6.1 g/dL (6.3-8.2)
[2023-07-26] MEDS: PANTOPRAZOLE 40 MG/10 ML VIAL IVP STA (11:25)
[2023-07-26 11:28] LABS: INR 1.2 (<1.2); Partial Thromboplastin Time 37.4 sec (22.0-30.0); Prothrombin Time 12.5 sec (10.0-12.5)
[2023-07-26 11:43] LABS: Basophils % (A) 0 %; Eosinophils % (A) 0 %; HCT 42.4 % (39.0-53.0); HGB 14.5 gm/dL (13.0-17.5); Lymphocytes # (A) 0.5 k/uL (1.0-4.8); Lymphocytes % (A) 3 %; MCH 26.8 pg (25.0-35.0); MCHC 34.1 g/dL (31.0-37.0); MCV 78.6 fL (80.0-100.0); Mean Platelet Volume 9.7; Monocytes % (A) 6 %; Neutrophils # (A) 13.6 k/uL (1.3-7.7); Neutrophils % (A) 90 %; RDW 15.7 % (11.5-15.5); WBC 15.2 k/uL (3.8-10.6)
[2023-07-26] MEDS: PIPERACILLIN-TAZOBACTAM 3.375 GM in SODIUM CHLORIDE 0.9% 100 ML IVPB ONE (11:54)
[2023-07-26] MEDS: SODIUM CHLORIDE 0.9% 1,000 ML IV STA (11:57)
--- NOTE | 2023-07-26 12:08 | XR ---
EXAMINATION TYPE: XR chest 1V portable DATE OF EXAM: 07/26/2023 11:50 AM CLINICAL INDICATION:Male, 57 years old with history of abdominal pain; COMPARISON: 01/21/2021 TECHNIQUE: XR chest 1V portable Frontal view of the chest. FINDINGS: Lungs/Pleura: There is no evidence of pleural effusion, focal consolidation, or pneumothorax. Pulmonary vascularity: Unremarkable. Heart/mediastinum: Cardiomediastinal silhouette is enlarged and stable. Musculoskeletal: No acute osseous pathology. IMPRESSION: No acute cardiopulmonary disease/process.
[2023-07-26 12:18] LABS: Platelet Count 97 k/uL (150-450)
[2023-07-26 12:47] LABS: Appearance,Urine Turbid (Clear); Bacteria,Urine Rare /hpf; Bilirubin,Urine Negative (Negative); Blood,Urine Trace (Negative); Color,Urine Colorless; Glucose,Urine (UA) Negative (Negative); Ketones,Urine Negative (Negative); Leukocyte Esterase,Urine Large (Negative); Nitrite,Urine Negative (Negative); PH, Urine 6.5 (5.0-8.0); Protein,Urine Negative (Negative); RBC,Urine 4 /hpf (0-5); Specific Gravity,Urine 1.008 (1.001-1.035); Urobilinogen,Urine <2.0 mg/dL (<2.0); WBC,Urine >182 /hpf (0-5)
[2023-07-26] MEDS: VANCOMYCIN 1,500 MG in SODIUM CHLORIDE 0.9% 500 ML 500 ML IVPB STA (13:14)
--- NOTE | 2023-07-26 13:34 | CT ---
EXAMINATION TYPE: CT abdomen pelvis w con DATE OF EXAM: 07/26/2023 COMPARISON: 03/05/2021 HISTORY: 57-year-old male Pancreatitis, abdominal pain, N/V for several days TECHNIQUE: Contiguous axial scanning of the abdomen and pelvis following administration of 100 ml Iso theresa 300 IV contrast. Delayed images through the kidneys and coronal/sagittal reconstructions perform ed. CT DLP: 1643.8 mGycm Automated exposure control for dose reduction was used. FINDINGS: Strandy scarring or atelectasis at the lung bases. No pericardial effusion. Circumferential thickening distal esophagus with small amount of retained fluid. Prominent fluid distention of the stomach. There is prominent fluid along the first, second, third portions of duodenum with mucosal hyperemia. Mucosal hyperemia extends to involve the jejunum as well. Scattered prominent fluid-filled small flor l loops throughout the remaining portions. Redundant sigmoid colon. Mild overall stool burden. However, there is circumferential wall thickening of the mid to distal sigmoid colon and rectum no pericolonic inflammatory change. No focal liver lesion. The system was patent. No biliary ductal rotation seen. Gallbladder, adrenal glands, spleen, pancreas within normal limits. Bilateral renal calculi, likely than left measuring up to 1.4 cm. Atrophic bilateral kidneys with del ayed excretion. Mclaughlin catheter is present. The bladder is collapsed but shows circumferential thickening. No abnormal fluid collection in the pelvis or pelvic lymphadenopathy. There is a single decubitus ulcer overlying the left ischial tuberosity. Soft tissue thickening exten ds directly into the posterior left hip and posterior left ischium. No iker lytic destruction is see n. In the left muscle atrophy. Diffuse osteopenia. [facility] is present throughout. Severe degenerative blackburn e of the right hip and chronic ununited fracture deformity of femoral neck. IMPRESSION: 1. PROMINENT FLUID DISTENTION OF THE STOMACH AND DUODENUM. There is also scattered fluid throughout t he small bowel. The duodenum and jejunum show mucosal hyperemia. In addition, there is circumferentia l wall thickening of the mid to distal sigmoid colon and rectum. Correlate for gastroenteritis as wel l as a nonspecific mild to moderate distal colitis. 2. Mclaughlin catheter is present. The collapsed bladder shows wall thickening as well. Correlate to exclu de cystitis. 3. Possible mild reflux esophagitis. 4. Atrophic bilateral kidneys but with delayed excretion may reflect acute on chronic kidney injury. 5. Left sided decubitus ulcer overlying the ischial tuberosity. Soft tissue thickening directly abuts the posterior left hip and left ischium. No discrete osseous destruction. Probably relating to heali ng granulation tissue. Clinically correlate.
[2023-07-26] MEDS ORDERED: NALOXONE 0.4 MG/ML 1 ML VIAL IV PRN (13:54)
--- NOTE | 2023-07-26 13:58 | ED ---
General Adult HPI - General Chief complaint: Nausea/Vomiting/Diarrhea Stated complaint: Nausea Time Seen by Provider: 07/26/23 10:49 Source: patient, EMS, RN notes reviewed, old records reviewed Mode of arrival: EMS Limitations: no limitations - History of Present Illness Initial comments: Patient is a 57-year-old male who presents emergency department for dehydration and generalized weakness. 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 Has been on antibiotics for UTIs and has had a few episodes of vomiting over the last few days. Has a chronic Mclaughlin catheter that is due to be swapped out on Monday. Presents for further evaluation at this time. Is bedbound chronically. Patient was found to be hypotensive in normal room and was taken to trauma bay 3 for further management. He currently is resting comfortably denying chest pain, shortness of breath. States he just feels generalized weakness. Afebrile. Presents for further evaluation. Denies cough, diarrhea, constipation. - Related Data Home Medications Medication Instructions Recorded Confirmed levETIRAcetam [Keppra Xr] 500 mg PO DAILY 08/19/18 07/26/23 Atorvastatin [Lipitor] 10 mg PO HS 08/24/20 07/26/23 Famotidine [Pepcid] 20 mg PO BID 05/25/22 07/26/23 Baclofen [Lioresal] 10 mg PO BID PRN 07/26/23 07/26/23 Magnesium Oxide [Magnesium] 500 mg PO DAILY 07/26/23 07/26/23 Ondansetron Odt [Zofran Odt] 4 mg PO Q6H PRN 07/26/23 07/26/23 Ultra Probiotic 1 cap PO DAILY 07/26/23 07/26/23 Allergies Allergy/AdvReac Type Severity Reaction Status Date / Time Sulfa (Sulfonamide Allergy Rash/Hives Verified 07/26/23 12:54 Antibiotics) tetracycline Allergy Rash/Hives/ Verified 07/26/23 12:54 Constipatio n/Nausea/Vo miting Review of Systems ROS Statement: Those systems with pertinent positive or pertinent negative responses have been documented in the HPI. Review of Systems: CONST: Denies fever EYES: Denies blurry vision ENT: Denies nasal congestion C/V: Denies Chest pain RESP: Denies shortness of breath GI: Denies abdominal pain : Denies dysuria SKIN: Denies rash. MSK: Denies joint pain. NEURO: Denies headache ROS Other: All systems not noted in ROS Statement are negative. 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 to hockey-related injury to C5 through C6 in 1984, chronic interal catheter, freqeunt UTIs/UTI with sepsis, kidney stones-surgically removed, past decubitus, recurrent L buttock decub, last seizure 2016, healed skin injury to buttock History of Any Multi-Drug Resistant Organisms: MRSA, Other MDRO Date of last positivie culture/infection: 09/24/17 MRSA MDRO Source:: Foot-MRSA; Urine-MDROs Additional Past Surgical History / Comment(s): multiple surgeries/skin grafts for pressure sores, right ureteroscopy with lithotripsy, external sphincetrotomy 1990 and 1994, cystoscopy with irrigation of blood clots from bladder, trach. & peg tube/ since removed, picc lines Past Anesthesia/Blood Transfusion Reactions: No Reported Reaction Past Psychological History: No Psychological Hx Reported Smoking Status: Never smoker Past Alcohol Use History: None Reported Past Drug Use History: None Reported - Past Family History Mother Family Medical History: No Reported History Additional Family Medical History / Comment(s): Mother is healthy. Father Family Medical History: COPD Additional Family Medical History / Comment(s): Father at the age of 65yrs. General Exam - General Exam Comments Initial Comments: General: Appears in no acute distress. HEAD: Normal with no signs of head trauma. EYES: PERRLA, EOMI, conjunctiva normal, no discharge. ENT: Hearing grossly intact, normal oropharynx. Dry mucous membranes. RESPIRATORY: Clear breath sounds bilaterally. No wheezes, rales, or rhonchi. C/V: Regular rate and rhythm. S1 and S2 auscultated. Hypotensive. ABD: Abd is soft, nontender, nondistended EXT: Normal range of motion, no obvious deformity SKIN: 2 decubitus ulcers wire clean appearing with no obvious purulent drainage. NEURO: Alert and oriented x 4. Currently at neurological baseline. History of quadriplegia. Limitations: no limitations Course Vital Signs 07/26/23 07/26/23 07/26/23 10:18 10:46 12:00 Temperature 97.6 F Pulse Rate 77 65 60 Respiratory 18 14 Rate Blood Pressure 57/40 62/43 78/57 O2 Sat by Pulse 97 98 Oximetry 07/26/23 13:08 Temperature Pulse Rate 57 L Respiratory 16 Rate Blood Pressure 107/63 O2 Sat by Pulse 98 Oximetry Procedures - Sepsis Sepsis Focused Exam #1 Time Sepsis Criteria Met: 10:56 Sepsis Focused Exam Date: 07/26/23 Sepsis Focused Exam Time: 13:08 Sepsis Focused Exam Complete: Yes Vital Signs & RN Notes Reviewed: Yes Capillary Refill: > 2 Seconds: Fingers, Toes Peripheral Pulses: Normal: Radial (R), Radial (L) Skin Color: Normal for Patient Respiratory Exam: normal lung sounds Cardiovascular Exam: regular rate, normal rhythm Medical Decision Making - Medical Decision Making Was pt. sent in by a medical professional or institution (, PA, BASEBALL CLUB MANAGER, urgent care, hospital, or correction...) When possible be specific @ -No Did you speak to anyone other than the patient for history (EMS, parent, family, police, friend...)? What history was obtained from this source @ -Patient's family assist with patient's past medical history. Did you review nursing and triage notes (agree or disagree)? Why? @ -I reviewed and agree with nursing and triage notes Were old charts reviewed (outside hosp., previous admission, EMS record, old EKG, old radiological studies, urgent care reports/EKG's, correction records)? Report findings @ -Old charts reviewed Differential Diagnosis (chest pain, altered mental status, abdominal pain women, abdominal pain men, vaginal bleeding, weakness, fever, dyspnea, syncope, headache, dizziness, GI bleed, back pain, seizure, CVA, palpatations, mental health, musculoskeletal)? @ -Differential Weakness: Hypoglycemia, shock, sepsis, hyponatremia, anemia, infection, ND, ETOH, adverse medicine reaction, overdose, stroke, this is not meant to be an all-inclusive list. EKG interpreted by me (3pts min.). @ -As above X-rays interpreted by me (1pt min.). @ -Chest x-ray reveals no obvious acute cardiopulmonary process. CT interpreted by me (1pt min.). @ -CT abdomen pelvis reveals findings consistent with gastroenteritis. U/S interpreted by me (1pt. min.). @ -None done What testing was considered but not performed or refused? (CT, X-rays, U/S, labs)? Why? @ -None What meds were considered but not given or refused? Why? @ -None Did you discuss the management of the patient with other professionals (professionals i.e. , PA, BASEBALL CLUB MANAGER, lab, RT, psych nurse, mental health social worker, appeals specialist, teacher, property disposal officer, pillowcase cleaner)? Give summary @ -Discussed with Dr. Salinas who requested consult to Dr. Oreilly. Patient admitted to [facility] call Dr. Salinas. Was smoking cessation discussed for >3mins.? @ -No Was critical care preformed (if so, how long)? @ -Yes, 35 minutes. Were there social determinants of health that impacted care today? How? (Homelessness, low income, unemployed, alcoholism, drug addiction, transportation, low edu. Level, literacy, decrease access to med. care, detention, rehab)? @ -No Was there de-escalation of care discussed even if they declined (Discuss DNR or withdrawal of care, Hospice)? DNR status @ -No What co-morbidities impacted this encounter? (DM, HTN, Smoking, COPD, CAD, Cancer, CVA, ARF, Chemo, Hep., AIDS, mental health diagnosis, sleep apnea, m orbid obesity)? @ -None Was patient admitted / discharged? Hospital course, mention meds given and route, prescriptions, significant lab abnormalities, going to OR and other pertinent info. @ -Based on the patient's presentation and physical exam, presents emergency department for weakness, recent UTI, chronic Mclaughlin. Patient was hypotensive upon arrival and taken to trauma bay 3. Patient is hypotensive but vitals otherwise stable. Has had GI complaints. We will obtain abdominal laboratory studies, blood cultures. Patient meets sepsis criteria upon arrival at 1056. Patient started on broad-spectrum antibiotics. Blood cultures and urine culture cultures obtained. Mclaughlin catheter replaced. Patient and family were in agreement this plan. He will also receive 2 L fluid bolus. Patient's blood pressure improved following IV fluids. Laboratory studies are remarkable for leukocytosis of 15.2. Mildly thrombocytopenic at 97. Patient is hyponatremic at 120 and hypochloremic at 87. Patient has a slightly elevated bilirubin at 3.3 as well as amylase and lipase at 151 and 1200 respectively. Urine concerning for UTI at this time. Viral swabs negative. CT was obtained to evaluate for pancreatitis which showed gastroenteritis. Chest x-ray showed no evidence of acute infection. On reevaluation, patient is improved. Vitals are improved. I discussed with family and patient he will be admitted to the hospital on IV antibiotics. Cultures will be sent. Dr. Stanley of GI was consulted due to the gastroenteritis, pancreatitis, and elevated bilirubin. Infectious disease consulted at the request of Dr. Salinas, who is on for city call and ID accepted the admission. Undiagnosed new problem with uncertain prognosis? @ -No Drug Therapy requiring intensive monitoring for toxicity (Heparin, Nitro, Insulin, Cardizem)? @ -No Were any procedures done? @ -No Diagnosis/symptom? @ -Sepsis, UTI, gastroenteritis, pancreatitis,Dehydration, hyponatremia Acute, or Chronic, or Acute on Chronic? @ -Acute Uncomplicated (without systemic symptoms) or Complicated (systemic symptoms)? @ -Complicated Side effects of treatment? @ -No Exacerbation, Progression, or Severe Exacerbation? @ -No Poses a threat to life or bodily function? How? (Chest pain, USA, ND, pneumonia, PE, COPD, DKA, ARF, appy, cholecystitis, CVA, Diverticulitis, Homicidal, Suicidal, threat to staff... and all critical care pts) @ -Yes Diagnosis/symptom? @ -Decubitus ulcers Acute, or Chronic, or Acute on Chronic? @ -Chronic Uncomplicated (without systemic symptoms) or Complicated (systemic symptoms)? @ -Uncomplicated Side effects of treatment? @ -None Exacerbation, Progression, or Severe Exacerbation] @ -No Poses a threat to life or bodily function? @ -Unlikely - Lab Data Result diagrams: 07/26/23 10:50 07/26/23 10:50 Lab Results 07/26/23 07/26/23 07/26/23 Range/Units 10:50 10:50 10:50 WBC 15.2 H (3.8-10.6) k/uL RBC 5.40 (4.30-5.90) m/uL Hgb 14.5 (13.0-17.5) gm/dL Hct 42.4 (39.0-53.0) % MCV 78.6 L (80.0-100.0) fL MCH 26.8 (25.0-35.0) pg MCHC 34.1 (31.0-37.0) g/dL RDW 15.7 H (11.5-15.5) % Plt Count 97 L (150-450) k/uL MPV 9.7 Neutrophils % 90 % Lymphocytes % 3 % Monocytes % 6 % Eosinophils % 0 % Basophils % 0 % Neutrophils # 13.6 H (1.3-7.7) k/uL Lymphocytes # 0.5 L (1.0-4.8) k/uL Monocytes # 1.0 (0-1.0) k/uL Eosinophils # 0.0 (0-0.7) k/uL Basophils # 0.0 (0-0.2) k/uL Manual Slide Review Performed PT 12.5 (10.0-12.5) sec INR 1.2 H (<1.2) APTT 37.4 H (22.0-30.0) sec Sodium 120 L (137-145) mmol/L Potassium 4.1 (3.5-5.1) mmol/L Chloride 87 L (98-107) mmol/L Carbon Dioxide 21 L (22-30) mmol/L Anion Gap 12 mmol/L BUN 67 H (9-20) mg/dL Creatinine 0.99 (0.66-1.25) mg/dL Est GFR (CKD-EPI)AfAm >90 (>60 ml/min/1.73 sqM) Est GFR (CKD-EPI)NonAf 84 (>60 ml/min/1.73 sqM) Glucose 90 (74-99) mg/dL Plasma Lactic Acid Aaron (0.7-2.0) mmol/L Calcium 8.3 L (8.4-10.2) mg/dL Total Bilirubin 3.3 H (0.2-1.3) mg/dL AST 42 (17-59) U/L ALT 38 (4-49) U/L Alkaline Phosphatase 171 H (38-126) U/L Total Protein 6.1 L (6.3-8.2) g/dL Albumin 3.0 L (3.5-5.0) g/dL Amylase 151 H (30-110) U/L Lipase 1220 H (23-300) U/L Urine Color Urine Appearance (Clear) Urine pH (5.0-8.0) Ur Specific [place] (1.001-1.035) Urine Protein (Negative) Urine Glucose (UA) (Negative) Urine Ketones (Negative) Urine Blood (Negative) Urine Nitrite (Negative) Urine Bilirubin (Negative) Urine Urobilinogen (<2.0) mg/dL Ur Leukocyte Esterase (Negative) Urine RBC (0-5) /hpf Urine WBC (0-5) /hpf Urine WBC Clumps (None) /hpf Urine Bacteria (None) /hpf Influenza Type A (PCR) (Not Detectd) Influenza Type B (PCR) (Not Detectd) RSV (PCR) (Not Detectd) SARS-CoV-2 (PCR) (Not Detectd) 07/26/23 07/26/23 07/26/23 Range/Units 10:50 11:06 12:16 WBC (3.8-10.6) k/uL RBC (4.30-5.90) m/uL Hgb (13.0-17.5) gm/dL Hct (39.0-53.0) % MCV (80.0-100.0) fL MCH (25.0-35.0) pg MCHC (31.0-37.0) g/dL RDW (11.5-15.5) % Plt Count (150-450) k/uL MPV Neutrophils % % Lymphocytes % % Monocytes % % Eosinophils % % Basophils % % Neutrophils # (1.3-7.7) k/uL Lymphocytes # (1.0-4.8) k/uL Monocytes # (0-1.0) k/uL Eosinophils # (0-0.7) k/uL Basophils # (0-0.2) k/uL Manual Slide Review PT (10.0-12.5) sec INR (<1.2) APTT (22.0-30.0) sec Sodium (137-145) mmol/L Potassium (3.5-5.1) mmol/L Chloride (98-107) mmol/L Carbon Dioxide (22-30) mmol/L Anion Gap mmol/L BUN (9-20) mg/dL Creatinine (0.66-1.25) mg/dL Est GFR (CKD-EPI)AfAm (>60 ml/min/1.73 sqM) Est GFR (CKD-EPI)NonAf (>60 ml/min/1.73 sqM) Glucose (74-99) mg/dL Plasma Lactic Acid Aaron 1.7 (0.7-2.0) mmol/L Calcium (8.4-10.2) mg/dL Total Bilirubin (0.2-1.3) mg/dL AST (17-59) U/L ALT (4-49) U/L Alkaline Phosphatase (38-126) U/L Total Protein (6.3-8.2) g/dL Albumin (3.5-5.0) g/dL Amylase (30-110) U/L Lipase (23-300) U/L Urine Color Colorless Urine Appearance Turbid (Clear) Urine pH 6.5 (5.0-8.0) Ur Specific [place] 1.008 (1.001-1.035) Urine Protein Negative (Negative) Urine Glucose (UA) Negative (Negative) Urine Ketones Negative (Negative) Urine Blood Trace H (Negative) Urine Nitrite Negative (Negative) Urine Bilirubin Negative (Negative) Urine Urobilinogen <2.0 (<2.0) mg/dL Ur Leukocyte Esterase Large H (Negative) Urine RBC 4 (0-5) /hpf Urine WBC >182 H (0-5) /hpf Urine WBC Clumps Few H (None) /hpf Urine Bacteria Rare H (None) /hpf Influenza Type A (PCR) Not Detected (Not Detectd) Influenza Type B (PCR) Not Detected (Not Detectd) RSV (PCR) Not Detected (Not Detectd) SARS-CoV-2 (PCR) Not Detected (Not Detectd) - EKG Data -: EKG Interpreted by Me EKG Comments: 12-lead Electrocardiogram Interpretation Note EKG was reviewed and interpreted by myself. 12-lead ECG performed at 1103 is interpreted by me as revealing normal sinus rhythm at a rate of 65 beats per minute. [place] is rightward deviated. CO interval is 223 ms, QRS duration is 105 ms, QTc is 449 ms.. There were no acute ST or T wave abnormalities to suggest myocardial ischemia or injury. Chronic T wave inversions seen in V2 and V3. Compared with EKG from January 2021. R wave progression across the precordium was satisfactory. By my interpretation this EKG is non-diagnostic for acute ischemia. Critical Care Time Critical Care Time: Yes Total Critical Care Time: 35 Disposition Clinical Impression: Sepsis, UTI (urinary tract infection), Decubital ulcer, Gastroenteritis, Pancreatitis, Hyponatremia, Dehydration Disposition: ADMITTED IP TO THIS HOSP Condition: Serious Time of Disposition: 13:58
[2023-07-26] MEDS: HEPARIN SODIUM,PORCINE 5,000 UNIT/ML 1 ML VIAL SQ SCH (15:25)
[2023-07-26] MEDS: PIPERACILLIN-TAZOBACTAM 3.375 GM in SODIUM CHLORIDE 0.9% 100 ML IVPB SCH (17:11)
[2023-07-26] MEDS: SODIUM CHLORIDE 0.9% 1,000 ML IV SCH (17:11)
[2023-07-26] MEDS: SODIUM CHLORIDE 0.9% 1,000 ML IV ONE ×2 (18:28→21:11)
[2023-07-26] MEDS: IPRATROPIUM-ALBUTEROL 3 ML NEB INHALATION SCH (19:22)
[2023-07-26] MEDS: HYDROCORTISONE SUCCINATE 100 MG/2 ML VIAL IV STA (21:14)
[2023-07-26] MEDS: ATORVASTATIN 10 MG TAB PO SCH (21:14)
[2023-07-26] MEDS: FAMOTIDINE 20 MG TAB PO SCH (21:14)
[2023-07-26] MEDS: levETIRAcetam 250 MG TAB PO SCH (21:50)
--- NOTE | 2023-07-26 22:18 | P.CONS ---
History of Present Illness - Reason for Consult Consult date: 07/26/23 - History of Present Illness Patient is a 57-year-old male past medical history significant for quadriplegia from an injury back in 1994 did have history of seizure disorder pneumonia hyperlipidemia reflux and recurrent UTI apparently the patient was recently treated for UTI in the outpatient setting with the doxycycline however the patient did not have any improvement patient complaining of generalized weakness dry heaves and vomiting patient on presentation to the hospital was afebrile patient was not tachycardic and hypotensive not hypoxic he did have vital of 15.2 with a left shift creatinine was 0.99 liver isms are normal urine has been positive influenza RSV COVID testing was negative last urine culture done on 06/23/2023 was positive for E. coli and Pseudomonas aeruginosa patient being treated with vancomycin and Zosyn infectious disease was consulted for further management of antibiotic therapy, the patient main symptom remains to be generalized weakness and dry heaves denies any headache or URI symptoms no chest pain or shortness of breath no cough did have some diarrhea 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 to hockey-related injury to C5 through C6 in 1984, chronic interal catheter, freqeunt UTIs/UTI with sepsis, kidney stones-surgically removed, past decubitus, recurrent L butt ock decub, last seizure 2016, healed skin injury to buttock History of Any Multi-Drug Resistant Organisms: MRSA, Other MDRO Year Discovered:: 09/24/17 MRSA MDRO Source:: Foot-MRSA; Urine-MDROs Additional Past Surgical History / Comment(s): multiple surgeries/skin grafts for pressure sores, right ureteroscopy with lithotripsy, external sphincetrotomy 1990 and 1994, cystoscopy with irrigation of blood clots from bladder, trach. & peg tube/ since removed, picc lines Past Anesthesia/Blood Transfusion Reactions: No Reported Reaction Past Psychological History: No Psychological Hx Reported Smoking Status: Never smoker Past Alcohol Use History: None Reported Past Drug Use History: None Reported - Past Family History Mother Family Medical History: No Reported History Additional Family Medical History / Comment(s): Mother is healthy. Father Family Medical History: COPD Additional Family Medical History / Comment(s): Father at the age of 65yrs. Medications and Allergies Home Medications Medication Instructions Recorded Confirmed Type levETIRAcetam [Keppra Xr] 500 mg PO DAILY 08/19/18 07/26/23 History Atorvastatin [Lipitor] 10 mg PO HS 08/24/20 07/26/23 History Famotidine [Pepcid] 20 mg PO BID 05/25/22 07/26/23 History Baclofen [Lioresal] 10 mg PO BID PRN 07/26/23 07/26/23 History Magnesium Oxide [Magnesium] 500 mg PO DAILY 07/26/23 07/26/23 History Ondansetron Odt [Zofran Odt] 4 mg PO Q6H PRN 07/26/23 07/26/23 History Ultra Probiotic 1 cap PO DAILY 07/26/23 07/26/23 History Allergies Allergy/AdvReac Type Severity Reaction Status Date / Time Sulfa (Sulfonamide Allergy Rash/Hives Verified 07/26/23 12:54 Antibiotics) tetracycline Allergy Rash/Hives/ Verified 07/26/23 12:54 Constipatio n/Nausea/Vo miting Physical Exam Vitals: Vital Signs Temp Pulse Resp BP Pulse Ox 07/26/23 15:26 49 L 14 78/46 99 07/26/23 13:08 57 L 16 107/63 98 07/26/23 12:00 60 14 78/57 98 07/26/23 10:46 65 62/43 07/26/23 10:18 97.6 F 77 18 57/40 97 Intake and Output 07/26/23 07/26/23 07/26/23 06:59 14:59 22:59 Other: Weight 81.647 kg Results CBC & Chem 7: 07/26/23 10:50 07/26/23 10:50 Labs: Abnormal Lab Results - Last 24 Hours (Table) 07/26/23 07/26/23 07/26/23 Range/Units 10:50 10:50 10:50 WBC 15.2 H (3.8-10.6) k/uL MCV 78.6 L (80.0-100.0) fL RDW 15.7 H (11.5-15.5) % Plt Count 97 L (150-450) k/uL Neutrophils # 13.6 H (1.3-7.7) k/uL Lymphocytes # 0.5 L (1.0-4.8) k/uL INR 1.2 H (<1.2) APTT 37.4 H (22.0-30.0) sec Sodium 120 L (137-145) mmol/L Chloride 87 L (98-107) mmol/L Carbon Dioxide 21 L (22-30) mmol/L BUN 67 H (9-20) mg/dL Calcium 8.3 L (8.4-10.2) mg/dL Total Bilirubin 3.3 H (0.2-1.3) mg/dL Alkaline Phosphatase 171 H (38-126) U/L Total Protein 6.1 L (6.3-8.2) g/dL Albumin 3.0 L (3.5-5.0) g/dL Amylase 151 H (30-110) U/L Lipase 1220 H (23-300) U/L Urine Blood (Negative) Ur Leukocyte Esterase (Negative) Urine WBC (0-5) /hpf Urine WBC Clumps (None) /hpf Urine Bacteria (None) /hpf 07/26/23 Range/Units 12:16 WBC (3.8-10.6) k/uL MCV (80.0-100.0) fL RDW (11.5-15.5) % Plt Count (150-450) k/uL Neutrophils # (1.3-7.7) k/uL Lymphocytes # (1.0-4.8) k/uL INR (<1.2) APTT (22.0-30.0) sec Sodium (137-145) mmol/L Chloride (98-107) mmol/L Carbon Dioxide (22-30) mmol/L BUN (9-20) mg/dL Calcium (8.4-10.2) mg/dL Total Bilirubin (0.2-1.3) mg/dL Alkaline Phosphatase (38-126) U/L Total Protein (6.3-8.2) g/dL Albumin (3.5-5.0) g/dL Amylase (30-110) U/L Lipase (23-300) U/L Urine Blood Trace H (Negative) Ur Leukocyte Esterase Large H (Negative) Urine WBC >182 H (0-5) /hpf Urine WBC Clumps Few H (None) /hpf Urine Bacteria Rare H (None) /hpf Assessment and Plan Plan: 1patient presented hospitalized weakness episode of nausea vomiting positive UA concerning for catheter assisted UTI failing outpatient oral doxycycline therapy 2-sulfa allergy 3-patient to continue with the Zosyn however discontinue vancomycin decrease risk of nephrotoxicity last urine culture positive for E. coli and Pseudomonas she will be covered with Zosyn while waiting for the culture to finalize We will follow on clinical condition and cultures to further adjust medication if needed Thank you for this consultation we will follow the patient along with you Dictation was produced using [employer] dictation software. please excuse any grammatical, word or spelling errors. Time with Patient: Greater than 30
[2023-07-26] MEDS: NOREPINEPHRINE 4 MG in SODIUM CHLORIDE 0.9% 250 ML IV SCH (23:04)
[2023-07-27 01:21] LABS: Glucose,Whole Blood 103 mg/dL (70-110)
[2023-07-27] MEDS: ONDANSETRON 4 MG/2 ML VIAL IVP PRN (01:47)
--- NOTE | 2023-07-27 03:48 | HP ---
HISTORY AND PHYSICAL HISTORY OF PRESENT ILLNESS: This 57-year-old white male came to the hospital, dehydration, generalized weakness, quadriplegia, recurrent UTIs, chronic Mclaughlin catheter. He was admitted to the hospital, is hypotensive. He was given 3 L of bolus fluid now for low blood pressure. Blood pressure now in the 80s systolic. HOME MEDICINES: 1. Lipitor. 2. Pepcid. 3. Keppra. ALLERGIES: Sulfa, tetracycline. REVIEW OF SYSTEMS: A 14-point review of system as mentioned above. PAST MEDICAL HISTORY: GERD, dyslipidemia, pneumonia, seizures, skin disorder, chronic renal catheter status post quadriplegia injury 6 to 7 years ago from a football injury, history of MRSA. PAST SURGICAL HISTORY: Multiple surgeries, skin grafts, pressure sores, right ureteroscopy, lithotripsy, external sphincterotomy, irrigation of blood clots in the bladder, trach and PEG tube. SOCIAL HISTORY: Does not smoke. FAMILY HISTORY: Mother is healthy. Father, COPD, father age 65. PHYSICAL EXAMINATION: GENERAL: Obese white male, BMI is over 40. HEENT: Pupils equal, round, and reactive. NECK: Supple. EXTREMITIES: Unable to move his legs. 3+ edema in his legs with infection in his lower extremities with thick yellow nails, small sores, and ischemia to his legs. SKIN: Decubitus ulcers clean and draining. NEUROLOGIC: Alert and oriented x4. VITAL SIGNS: Blood pressure 97.6, blood pressure is low 57/40-78/57, pulse rate is 57, blood pressure 107/63, O2 98%. ASSESSMENT: Hypertension, pancreatitis, hyponatremia, severe leukocytosis, severe hyponatremia, stage II renal disease, hypocalcemia, elevated liver enzymes, elevated lipase for pancreatitis. Influenza A, B, RSV, SARS negative. Urine shows large leukocyte esterase, greater than 182 red cells. Infectious Disease consulted, Dr. Adriano Guadalupe for hypotension. EKG shows no ischemia, ordered troponin. PROGNOSIS: Guarded. Please see further orders. MMODL / IJN: [id number] /
--- NOTE | 2023-07-27 04:25 | P.CNPUL ---
History of Present Illness Consult date: 07/27/23 Requesting physician: Magdiel Salinas Reason for consult: other (Hypotension, sepsis, ICU management) Chief complaint: Nausea, reduced appetite, weakness History of present illness: Patient is a 57-year-old white male with past medical history significant for quadriplegia from a hockey accident, seizure disorder, chronic decubitus pressure ulcer and evaluated by wound care every other day, chronic indwelling urinary catheter with frequent urinary tract infections. Patient presented to the emergency room yesterday afternoon complaining mostly of reduced appetite, nausea, lower nonradiating abdominal pain, and generalized weakness. Patient lives at home and is seen by the visiting nurses Association. Patient states that he was recently treated for urinary tract infection outpatient with tetracycline. Most recent urine culture collected from 06/23/23 positive for E. coli and Pseudomonas aeruginosa. Preliminary urinalysis positive for leukocyte Estrace and pyuria. CBC on arrival: WBC count 15.2, hemoglobin 14.5, hematocrit 42.4, platelets 97. BMP on arrival: Sodium 120, potassium 4.1, chloride 87, serum bicarb 21, BUN 67, creatinine 0.99, glucose 90. Troponins less than 0.012 x 2. EKG consistent with sinus bradycardia and chronic T wave inversion in the anterior leads no acute ischemic changes. Total bilirubin 3.3. AST 42, ALT 38, ALP 171. Amylase and lipase 151 and 1220 respectively. Patient denies history of pancreatitis. Denies history of gallstones. Does not drink alcohol. Abdominal pain is described as lower and medial, nonradiating. Sensation is impaired. He does have nausea without any actual emesis. No reported diarrhea, iker bloody bowel movements, or melena. CT of the abdomen and pelvis demonstrated a gallbladder and pancreas within normal limits. No reported peripancreatic fat stranding, abscesses, necrosis. No reported cholelithiasis. There was prominent fluid distention of the stomach and duodenum. The duodenum and jejunum show mucosal hyperemia and circumferential wall thickening of the mid to distal sigmoid colon and rectum. Findings concerning for gastroenteritis and possible mild to moderate distal colitis. There was mild reflux esophagitis. There is bladder wall thickening concerning for possible cystitis. Atrophic bilateral kidneys, with delayed excretion may reflect acute on chronic kidney disease. There was a left side decubitus ulcer over the ischial tuberosity. There was soft tissue thickening abutting the posterior left hip and left ischium. No discrete osseous destruction. We were asked to evaluate this patient last night due to concerns of hypotension refractory to aggressive fluid resuscitation with a total of 5 L normal saline bolus, and will require norepinephrine infusion for blood pressure support. Patient is currently in the emergency room. He is lying in bed, on room air, no acute distress. Chest x-ray does not show any acute cardiopulmonary process. Blood pressure currently 80/48 mmHg. Heart rate is sinus bradycardia in the 50s. Normal saline is concurrently running at 130 MLS per hour. Patient does have a urinary catheter, and the urometer is full. Urine is yellow and cloudy. Currently afebrile. Empirically covered on Zosyn. Patient will be transferred to room 260 once bed available. Review of Systems REVIEW OF SYSTEMS: CONSTITUTIONAL: Denies any recent significant weight loss or weight gain. EYES: Denies change in vision. EARS, NOSE, MOUTH, THROAT: Denies headaches, denies sore throat. CARDIOVASCULAR: Denies chest pain, palpitations or syncopal episodes. RESPIRATORY: Denies shortness of breath, cough, congestion or hemoptysis. GASTROINTESTINAL: See HPI. GENITOURINARY: Overall sensation is impaired, admits chronic indwelling Mclaughlin catheter. MUSKULOSKELETAL: Reports quadriplegia. Also reports chronic left lower extremity swelling. Denies history of DVTs or blood clots INTEGUMENTARY: Admits chronic buttock wound NEUROLOGICAL: Denies recent memory loss, last reported seizure over 5 years ago. PSYCHIATRIC: Denies anxiety, denies depression. HEMATOLOGIC/LYMPHATIC: Denies anemia, denies enlarged lymph node 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 to hockey-related injury to C5 through C6 in 1984, chronic interal catheter, freqeunt UTIs/UTI with sepsis, kidney stones-surgically removed, past decubitus, recurrent L butto ck decub, last seizure 2016, healed skin injury to buttock History of Any Multi-Drug Resistant Organisms: MRSA, Other MDRO Date of last positivie culture/infection: 09/24/17 MRSA MDRO Source:: Foot-MRSA; Urine-MDROs Additional Past Surgical History / Comment(s): multiple surgeries/skin grafts for pressure sores, right ureteroscopy with lithotripsy, external sphincetrotomy 1990 and 1994, cystoscopy with irrigation of blood clots from bladder, trach. & peg tube/ since removed, picc lines Past Anesthesia/Blood Transfusion Reactions: No Reported Reaction Past Psychological History: No Psychological Hx Reported Smoking Status: Never smoker Past Alcohol Use History: None Reported Past Drug Use History: None Reported - Past Family History Mother Family Medical History: No Reported History Additional Family Medical History / Comment(s): Mother is healthy. Father Family Medical History: COPD Additional Family Medical History / Comment(s): Father at the age of 65yrs. Medications and Allergies Home Medications Medication Instructions Recorded Confirmed Type levETIRAcetam [Keppra Xr] 500 mg PO DAILY 08/19/18 07/26/23 History Atorvastatin [Lipitor] 10 mg PO HS 08/24/20 07/26/23 History Famotidine [Pepcid] 20 mg PO BID 05/25/22 07/26/23 History Baclofen [Lioresal] 10 mg PO BID PRN 07/26/23 07/26/23 History Magnesium Oxide [Magnesium] 500 mg PO DAILY 07/26/23 07/26/23 History Ondansetron Odt [Zofran Odt] 4 mg PO Q6H PRN 07/26/23 07/26/23 History Ultra Probiotic 1 cap PO DAILY 07/26/23 07/26/23 History Allergies Allergy/AdvReac Type Severity Reaction Status Date / Time Sulfa (Sulfonamide Allergy Rash/Hives Verified 07/26/23 12:54 Antibiotics) tetracycline Allergy Rash/Hives/ Verified 07/26/23 12:54 Constipatio n/Nausea/Vo miting Physical Exam Vitals: Vital Signs Temp Pulse Resp BP Pulse Ox 07/27/23 01:08 59 L 18 122/64 98 07/27/23 00:40 56 L 19 97/69 98 07/27/23 00:20 55 L 16 135/120 97 07/27/23 00:10 59 L 17 129/65 97 07/27/23 00:00 59 L 19 112/65 97 07/26/23 23:52 62 18 80/48 98 07/26/23 23:50 62 14 98/52 96 07/26/23 23:40 57 L 16 93/62 95 07/26/23 23:30 52 L 12 92/53 96 07/26/23 23:20 51 L 16 100/53 96 07/26/23 23:10 54 L 14 96/53 96 07/26/23 22:50 53 L 13 78/45 98 07/26/23 22:40 53 L 16 76/47 98 07/26/23 22:30 52 L 17 90/58 98 07/26/23 22:20 57 L 12 83/45 97 07/26/23 22:10 60 16 89/50 98 07/26/23 22:02 89/50 07/26/23 22:00 64 16 96/51 97 07/26/23 21:50 61 16 85/46 96 07/26/23 21:49 67 20 85/46 97 07/26/23 21:10 56 L 15 71/40 96 07/26/23 19:34 52 L 07/26/23 19:25 48 L 16 89/51 99 07/26/23 19:24 50 L 07/26/23 17:59 47 L 16 81/56 96 07/26/23 17:12 50 L 18 77/41 96 07/26/23 15:26 49 L 14 78/46 99 07/26/23 13:08 57 L 16 107/63 98 07/26/23 12:00 60 14 78/57 98 07/26/23 10:46 65 62/43 07/26/23 10:18 97.6 F 77 18 57/40 97 Intake and Output 07/26/23 07/26/23 07/27/23 14:59 22:59 06:59 Intake Total 13.480 Output Total 1100 Balance -1100 13.480 Intake: Intake, IV Titration 13.480 Amount Norepinephrine 4 mg In 13.480 Sodium Chloride 0.9% 250 ml @ 0.03 MCG/KG/MIN 9. 332 mls/hr IV .Q24H COUNT INCLUDES THE [facility] Rx#:[id number] Output: Urine 1100 Uretheral (Mclaughlin) 1100 Other: Weight 81.647 kg 81.647 kg GENERAL EXAM: Alert, 57-year-old male, quadriplegic, with extremity contractures and atrophy, comfortable in no apparent distress. HEAD: Normocephalic and atraumatic EYES: Normal reaction of pupils, equal size. NOSE: Clear with pink turbinates. THROAT: No erythema or exudates. NECK: No masses, no JVD. CHEST: No chest wall deformity. LUNGS: Equal air entry with no crackles, wheeze, rhonchi or dullness. On room air. No conversational dyspnea or accessory muscle use.. CVS: S1 and S2 normal with no audible murmur, regular rhythm. No extra heart sounds ABDOMEN: No hepatosplenomegaly, active bowel sounds, no guarding or rigidity. Facial grimacing with palpation in the suprapubic region. SPINE: No scoliosis or deformity SKIN: No rashes. Left buttock wound with pink/red granulation tissue, no purulent drainage. CENTRAL NERVOUS SYSTEM: Alert and oriented x 3, normal speech, no facial symmetry, all 4 extremities are atrophied and contracted. Extremity strength flaccid EXTREMITIES: There is bilateral lower extremity pitting edema, greater on the left. No clubbing, or cyanosis. Peripheral pulses are intact. Results - Laboratory Findings CBC and BMP: 07/26/23 10:50 07/26/23 10:50 PT/INR, D-dimer PT 12.5 sec (10.0-12.5) 07/26/23 10:50 INR 1.2 (<1.2) H 07/26/23 10:50 D-Dimer 1.07 mg/L FEU (<0.60) H 07/26/23 19:49 Abnormal lab findings: Abnormal Labs 07/26/23 07/26/23 07/26/23 10:50 10:50 10:50 WBC 15.2 H MCV 78.6 L RDW 15.7 H Plt Count 97 L Neutrophils # 13.6 H Lymphocytes # 0.5 L INR 1.2 H APTT 37.4 H D-Dimer Sodium 120 L Chloride 87 L Carbon Dioxide 21 L BUN 67 H Calcium 8.3 L Total Bilirubin 3.3 H Alkaline Phosphatase 171 H Total Protein 6.1 L Albumin 3.0 L Amylase 151 H Lipase 1220 H Urine Blood Ur Leukocyte Esterase Urine WBC Urine WBC Clumps Urine Bacteria 07/26/23 07/26/23 12:16 19:49 WBC MCV RDW Plt Count Neutrophils # Lymphocytes # INR APTT D-Dimer 1.07 H Sodium Chloride Carbon Dioxide BUN Calcium Total Bilirubin Alkaline Phosphatase Total Protein Albumin Amylase Lipase Urine Blood Trace H Ur Leukocyte Esterase Large H Urine WBC >182 H Urine WBC Clumps Few H Urine Bacteria Rare H - Diagnostic Findings Chest x-ray: image reviewed Assessment and Plan Assessment: Suspect urinary tract infection and urosepsis, patient was being treated outpatient for UTI prior to arrival. Patient does have a chronic indwelling urinary catheter, and is prone to urinary tract infections. Most recent isolated organisms E. coli and Pseudomonas aeruginosa from urine culture collected on 06/23/2023. Refractory hypotension, likely secondary to sepsis/septic shock and above, will require vasopressor support. Acute pancreatitis, lipase level was 1220 on arrival. Patient denies history of prior pancreatitis, alcoholism, or gallstones. A contrast-enhanced CT of the abdomen and pelvis demonstrated a gallbladder and pancreas within normal limits. No reported peripancreatic fat stranding, abscesses, necrosis. No reported cholelithiasis. Possible acute gastroenteritis and colitis, as reported per CT Severe dehydration and poor oral intake Hypovolemic hyponatremia, likely secondary to above Sinus bradycardia Quadriplegic, secondary to traumatic hockey accident Neurogenic bladder and chronic indwelling urinary catheter Chronic decubitus pressure ulcer History of seizure disorder, last reported seizure over 5 years ago, maintained on Keppra Left lower extremity edema and elevated D-dimer, check venous Doppler GERD with esophagitis History of hyperlipidemia Plan: Patient's medications, labs, imaging were reviewed Patient will be admitted to the intensive care unit for refractory hypotension, he has been aggressively fluid resuscitated with over 5 L of normal saline, and is requiring low-dose norepinephrine infusion for blood pressure support. Patient had failed outpatient treatment for urinary tract infection. Preliminary urinalysis shows leukocyte Estrace and rare bacteria. Exchange urinary catheter. Infectious disease is involved in managing antibiotic coverage. Currently empirically receiving Zosyn. Blood and urine cultures are pending. Repeat labs in the morning, including pancreatic enzymes. Check triglyceride levels. CT of the abdomen and pelvis noted. Rag Room Supervisor and general surgery have been asked to evaluate patient. Obtain venous Doppler of lower extremities. Heparin for DVT prophylaxis Pepcid for GI prophylaxis Patient will be admitted to the intensive care unit once room available. I have personally seen and examined the patient, performed the documentation and the assessment and plan as written. Number of minutes spent on the visit:20 Time with Patient: Greater than 30
[2023-07-27 04:59] LABS: ALT 31 U/L (4-49); AST 31 U/L (17-59); African American GFR (CKD) >90 (>60 ml/min/1.73 sqM); Albumin 2.4 g/dL (3.5-5.0); Alkaline Phosphatase 157 U/L (38-126); Anion Gap 10 mmol/L; Blood Urea Nitrogen 41 mg/dL (9-20); Calcium 7.5 mg/dL (8.4-10.2); Carbon Dioxide 14 mmol/L (22-30); Chloride 105 mmol/L (98-107); Glucose 91 mg/dL (74-99); Non-African American GFR(CKD) >90 (>60 ml/min/1.73 sqM); Potassium 3.1 mmol/L (3.5-5.1); Sodium 129 mmol/L (137-145); Total Bilirubin 2.9 mg/dL (0.2-1.3); Total Protein 5.3 g/dL (6.3-8.2)
[2023-07-27 05:13] LABS: Basophils % (A) 0 %; Eosinophils % (A) 0 %; HCT 42.2 % (39.0-53.0); HGB 13.6 gm/dL (13.0-17.5); Lymphocytes # (A) 0.5 k/uL (1.0-4.8); Lymphocytes % (A) 2 %; MCH 26.8 pg (25.0-35.0); MCHC 32.3 g/dL (31.0-37.0); MCV 82.9 fL (80.0-100.0); Mean Platelet Volume 9.7; Monocytes # (A) 0.8 k/uL (0-1.0); Monocytes % (A) 3 %; Neutrophils # (A) 20.9 k/uL (1.3-7.7); Neutrophils % (A) 94 %; RBC 5.09 m/uL (4.30-5.90); WBC 22.2 k/uL (3.8-10.6)
[2023-07-27 05:20] LABS: Platelet Count 94 k/uL (150-450)
[2023-07-27 05:31] LABS: Lipase 9628 U/L (23-300)
[2023-07-27] MEDS ORDERED: VANCOMYCIN 1,500 MG in SODIUM CHLORIDE 0.9% 500 ML 500 ML IVPB SCH (06:00)
[2023-07-27] MEDS ORDERED: Potassium Replacement Protocol 1 EACH MISC MISCELLANE PRN (06:41)
[2023-07-27] MEDS: POTASSIUM CHLORIDE 10 MEQ in WATER FOR INJECTION 1 100ML.BAG IVPB SCH (06:57)
--- NOTE | 2023-07-27 07:47 | P.CRDCN ---
History of Present Illness Consult date: 07/27/23 History of present illness: This is a very pleasant and unfortunate 57-year-old gentleman with a past medical history significant for history of quadriplegia secondary to injury related to hockey as well as history of urinary tract infection as well as multiple comorbid conditions. The patient lives at home and has a visiting nurse checking on him every other day. It was noted that he was hypotensive. He was experiencing symptoms of being tired and fatigued and has no energy and also experiencing symptoms of abdominal discomfort. He was brought to the hospital for further investigation. He was diagnosed with acute pancreatitis. Also he was diagnosed with possible UTI. He was hypotension requiring initially IV fluid with no response and subsequently he was started on norepinephrine to support his blood pressure. No symptoms of any chest pain or chest discomfort and no presyncope or syncope and no shortness of breath. We consulted to see the patient because of bradycardia. His heart rate has been in the 50s. The patient was asymptomatic with the bradycardia. No history of coronary artery disease or congestive heart failure or cardiac arrhythmia and he never seen a department supervisor before. Further investigation performed including an EKG and that showed sinus mechanism with borderline first-degree AV block and PACs. Troponin came in to be unremarkable with the chest x-ray did not show any acute abnormalities. The blood work indicated possible acute pancreatitis and also he underwent a CT scan of the abdomen and pelvis. The patient was not on any AV jerson willi agents. No thyroid function test has performed nor echocardiogram as of yet. Examination revealed regular rhythm with a distant heart sounds and diminished breathing sounds bilaterally and atrophy of the upper and lower extremities. Assessment Acute pancreatitis Possible urinary tract infection Sepsis Hypotension require vasopressors Bradycardia appears to be asymptomatic Quadriplegia Multiple comorbid conditions Plan Continue current medical regimen Continue supporting the blood pressure Avoid any AV jerson willi agents Acute coronary event was ruled out Obtain an echocardiogram Obtain TSH and free T4 Monitor the heart rate Follow-up with the patient 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 to hockey-related injury to C5 through C6 in 1984, chronic interal catheter, freqeunt UTIs/UTI with sepsis, kidney stones-surgically removed, past decubitus, recurrent L buttock decub, last seizure 2016, healed skin injury to buttock History of Any Multi-Drug Resistant Organisms: MRSA, Other MDRO Date of last positivie culture/infection: 09/24/17 MRSA MDRO Source:: Foot-MRSA; Urine-MDROs Additional Past Surgical History / Comment(s): multiple surgeries/skin grafts for pressure sores, right ureteroscopy with lithotripsy, external sphincetrotomy 1990 and 1994, cystoscopy with irrigation of blood clots from bladder, trach. & peg tube/ since removed, picc lines Past Anesthesia/Blood Transfusion Reactions: No Reported Reaction Past Psychological History: No Psychological Hx Reported Smoking Status: Never smoker Past Alcohol Use History: None Reported Past Drug Use History: None Reported - Past Family History Mother Family Medical History: No Reported History Additional Family Medical History / Comment(s): Mother is healthy. Father Family Medical History: COPD Additional Family Medical History / Comment(s): Father at the age of 65yrs. Medications and Allergies Home Medications Medication Instructions Recorded Confirmed Type levETIRAcetam [Keppra Xr] 500 mg PO DAILY 08/19/18 07/26/23 History Atorvastatin [Lipitor] 10 mg PO HS 08/24/20 07/26/23 History Famotidine [Pepcid] 20 mg PO BID 05/25/22 07/26/23 History Baclofen [Lioresal] 10 mg PO BID PRN 07/26/23 07/26/23 History Magnesium Oxide [Magnesium] 500 mg PO DAILY 07/26/23 07/26/23 History Ondansetron Odt [Zofran Odt] 4 mg PO Q6H PRN 07/26/23 07/26/23 History Ultra Probiotic 1 cap PO DAILY 07/26/23 07/26/23 History Allergies Allergy/AdvReac Type Severity Reaction Status Date / Time Sulfa (Sulfonamide Allergy Rash/Hives Verified 07/26/23 12:54 Antibiotics) tetracycline Allergy Rash/Hives/ Verified 07/26/23 12:54 Constipatio n/Nausea/Vo miting Physical Exam Vitals: Vital Signs Temp Pulse Resp BP Pulse Ox 07/27/23 06:00 73 14 107/65 97 07/27/23 05:45 97.4 F L 61 12 99/79 97 07/27/23 05:30 66 12 111/74 96 07/27/23 05:15 71 13 109/60 96 07/27/23 05:12 94 F L 73 16 109/60 97 07/27/23 01:08 59 L 18 122/64 98 07/27/23 00:40 56 L 19 97/69 98 07/27/23 00:20 55 L 16 135/120 97 07/27/23 00:10 59 L 17 129/65 97 07/27/23 00:00 59 L 19 112/65 97 07/26/23 23:52 62 18 80/48 98 07/26/23 23:50 62 14 98/52 96 07/26/23 23:40 57 L 16 93/62 95 07/26/23 23:30 52 L 12 92/53 96 07/26/23 23:20 51 L 16 100/53 96 07/26/23 23:10 54 L 14 96/53 96 07/26/23 22:50 53 L 13 78/45 98 07/26/23 22:40 53 L 16 76/47 98 07/26/23 22:30 52 L 17 90/58 98 07/26/23 22:20 57 L 12 83/45 97 07/26/23 22:10 60 16 89/50 98 07/26/23 22:02 89/50 07/26/23 22:00 64 16 96/51 97 07/26/23 21:50 61 16 85/46 96 07/26/23 21:49 67 20 85/46 97 07/26/23 21:10 56 L 15 71/40 96 07/26/23 19:34 52 L 07/26/23 19:25 48 L 16 89/51 99 07/26/23 19:24 50 L 07/26/23 17:59 47 L 16 81/56 96 07/26/23 17:12 50 L 18 77/41 96 07/26/23 15:26 49 L 14 78/46 99 07/26/23 13:08 57 L 16 107/63 98 07/26/23 12:00 60 14 78/57 98 07/26/23 10:46 65 62/43 07/26/23 10:18 97.6 F 77 18 57/40 97 Intake and Output 07/26/23 07/27/23 07/27/23 22:59 06:59 14:59 Intake Total 403.480 230 Output Total 1100 730 75 Balance -1100 -326.520 155 Intake: IV 390 130 Sodium Chloride 0.9% 1, 390 130 000 ml @ 130 mls/hr IV . Q7H42M [facility] Rx#:[id number] Intake, IV Titration 13.480 100 Amount Norepinephrine 4 mg In 13.480 Sodium Chloride 0.9% 250 ml @ 0.03 MCG/KG/MIN 9. 332 mls/hr IV .Q24H [facility] Rx#:[id number] Potassium Chloride 10 meq 100 In Water For Injection 1 100ml.bag @ 100 mls/hr IVPB Q1HR [facility] Rx#: [id number] Output: Urine 1100 730 75 Uretheral (Mclaughlin) 1100 Other: Voiding Method Indwelling Catheter Weight 81.647 kg Results 07/27/23 04:10 07/27/23 04:10 Cardiac Enzymes 07/26/23 07/26/23 07/27/23 Range/Units 10:50 19:49 00:02 AST 42 (17-59) U/L Troponin I <0.012 <0.012 (0.000-0.034) ng/mL 07/27/23 Range/Units 04:10 AST 31 (17-59) U/L Troponin I (0.000-0.034) ng/mL Coagulation 07/26/23 Range/Units 10:50 PT 12.5 (10.0-12.5) sec APTT 37.4 H (22.0-30.0) sec CBC 07/26/23 07/27/23 Range/Units 10:50 04:10 WBC 15.2 H 22.2 H (3.8-10.6) k/uL RBC 5.40 5.09 (4.30-5.90) m/uL Hgb 14.5 13.6 (13.0-17.5) gm/dL Hct 42.4 42.2 (39.0-53.0) % Plt Count 97 L 94 L (150-450) k/uL Comprehensive Metabolic Panel 07/26/23 07/27/23 Range/Units 10:50 04:10 Sodium 120 L 129 L (137-145) mmol/L Potassium 4.1 3.1 L (3.5-5.1) mmol/L Chloride 87 L 105 (98-107) mmol/L Carbon Dioxide 21 L 14 L (22-30) mmol/L BUN 67 H 41 H (9-20) mg/dL Creatinine 0.99 0.73 (0.66-1.25) mg/dL Glucose 90 91 (74-99) mg/dL Calcium 8.3 L 7.5 L (8.4-10.2) mg/dL AST 42 31 (17-59) U/L ALT 38 31 (4-49) U/L Alkaline Phosphatase 171 H 157 H (38-126) U/L Total Protein 6.1 L 5.3 L (6.3-8.2) g/dL Albumin 3.0 L 2.4 L (3.5-5.0) g/dL Current Medications Generic Name Dose Route Start Last Admin Trade Name Freq PRN Reason Stop Dose Admin Acetaminophen 650 mg 07/26/23 13:54 Acetaminophen Tab 325 Mg Tab PO Q6HR PRN Mild Pain or Fever > 100.5 Albuterol/Ipratropium 3 ml 07/26/23 20:00 07/26/23 19:22 Ipratropium-Albuterol 3 Ml Neb INHALATION 3 ml RT-QID [facility] Administration Atorvastatin Calcium 10 mg 07/26/23 21:00 07/26/23 21:14 Atorvastatin 10 Mg Tab PO 10 mg HS [facility] Administration Baclofen 10 mg 07/26/23 14:29 Baclofen 10 Mg Tab PO BID PRN Muscle Spasm Famotidine 20 mg 07/26/23 21:00 07/26/23 21:14 Famotidine 20 Mg Tab PO 20 mg BID [facility] Administration Heparin Sodium (Porcine) 5,000 unit 07/26/23 16:00 07/27/23 00:17 Heparin Sodium,Porcine 5,000 Unit/Ml 1 Ml Vial SQ 5,000 unit Q8HR [facility] Administration Piperacillin Sod/Tazobactam 100 mls @ 25 mls/hr 07/26/23 16:00 07/27/23 00:16 Sod 3.375 gm/ Sodium Chloride IVPB 25 mls/hr Q8HR [facility] Administration Protocol Sodium Chloride 1,000 mls @ 130 mls/hr 07/26/23 16:15 07/27/23 00:17 Saline 0.9% IV 130 mls/hr .Q7H42M [facility] Administration Norepinephrine Bitartrate 4 mg 254 mls @ 9.332 mls/hr 07/26/23 22:42 04/18/24 00:21 / Sodium Chloride IV 0.03 mcg/kg/min .Q24H [facility] 9.332 mls/hr Titration Protocol 0.03 MCG/KG/MIN Potassium Chloride 10 meq/ IV 100 mls @ 100 mls/hr 07/27/23 07:00 07/27/23 06:57 Solution IVPB 07/27/23 10:59 100 mls/hr Q1HR [facility] Administration Protocol Levetiracetam 250 mg 07/26/23 21:00 07/26/23 21:50 Levetiracetam 250 Mg Tab PO 250 mg BID [facility] Administration Magnesium Oxide 400 mg 07/27/23 09:00 Magnesium Oxide 400 Mg Tab PO DAILY [facility] Miscellaneous Information 1 each 07/27/23 06:41 Potassium Replacement Protocol 1 Each Misc MISCELLANE DAILY PRN Per Protocol Protocol Naloxone HCl 0.2 mg 07/26/23 13:54 Naloxone 0.4 Mg/Ml 1 Ml Vial IV Q2M PRN Opioid Reversal Ondansetron HCl 4 mg 07/26/23 13:54 07/27/23 01:47 Ondansetron 4 Mg/2 Ml Vial IVP 4 mg Q8HR PRN Administration Nausea And Vomiting Intake and Output 07/26/23 07/27/23 07/27/23 22:59 06:59 14:59 Intake Total 403.480 230 Output Total 1100 730 75 Balance -1100 -326.520 155 Intake: IV 390 130 Sodium Chloride 0.9% 1, 390 130 000 ml @ 130 mls/hr IV . Q7H42M [facility] Rx#:[id number] Intake, IV Titration 13.480 100 Amount Norepinephrine 4 mg In 13.480 Sodium Chloride 0.9% 250 ml @ 0.03 MCG/KG/MIN 9. 332 mls/hr IV .Q24H [facility] Rx#:[id number] Potassium Chloride 10 meq 100 In Water For Injection 1 100ml.bag @ 100 mls/hr IVPB Q1HR [facility] Rx#: [id number] Output: Urine 1100 730 75 Uretheral (Mclaughlin) 1100 Other: Voiding Method Indwelling Catheter Weight 81.647 kg 07/27/23 04:10 07/27/23 04:10
[2023-07-27] MEDS: MAGNESIUM OXIDE 400 MG TAB PO SCH (09:09)
[2023-07-27 09:41] LABS: Bilirubin, Conjugated 0.4 mg/dL (0.0-0.3); Bilirubin, Delta 0.7 mg/dL (0.0-0.2); Total Bilirubin 3.1 mg/dL (0.2-1.3)
--- NOTE | 2023-07-27 10:23 | US ---
EXAMINATION TYPE: US abdomen complete DATE OF EXAM: 07/27/2023 COMPARISON: CT 07/26/2023 CLINICAL INDICATION: Male, 57 years old with history of Pancreatitis, hyperbilirubinemia; Pancreatiti s, hyperbilirubinemia. Hx surgery for kidney stones. TECHNIQUE: Multiple sonographic images of the abdomen are obtained. FINDINGS: EXAM MEASUREMENTS: Liver Length: 14.2 cm Gallbladder Wall: 0.23 cm CBD: Obscured Spleen: 15.4 cm Right Kidney: 9.8 x 4.3 x 4.4 cm Left Kidney: Obscured IMMIGRATION CASE MANAGER NOTES: Limited due to patient body habitus, patient quadriplegic. Pancreas: Appears prominent and hyperechoic. Tail not well seen. Liver: Appears coarse in echotexture. Gallbladder: Limited visibility, no obvious stones seen. Evidence for sonographic Onofre's sign: No CBD: Obscured. Spleen: Enlarged, limited evaluation. Right Kidney: *3 hyperechoic foci with posterior shadowing seen, largest measures 1.5 x 1.5 x 0.8 cm . Left Kidney: Obscured Upper IVC: Limited visibility. Abd Aorta: Proximal and mid segment appear ectatic. Iliacs obscured. Ascites seen within the RUQ. IMPRESSION: 1. No evidence for acute process. 2. No evidence for obstructive uropathy. 3. Right renal calculi. 4. Ascites in the right upper quadrant. 5. Coarsened echotexture to liver correlate for hepatocellular disease.
--- NOTE | 2023-07-27 10:25 | US ---
EXAMINATION TYPE: US venous doppler duplex LE DATE OF EXAM: 07/27/2023 10:05 AM COMPARISON: NONE CLINICAL INDICATION: Male, 57 years old with history of rule out DVT; No hx of DVT. SIDE PERFORMED: Bilateral TECHNIQUE: The lower extremity deep venous system is examined utilizing real time linear array sonog tammy with graded compression, doppler sonography and color-flow sonography. VESSELS IMAGED: Common Femoral Vein Deep Femoral Vein Greater Saphenous Vein * Femoral Vein Popliteal Vein (* superficial vessels) Exam is very difficult and limited. Patient is quadriplegic. Right Leg: Right CFV appears to compress incompletely, color flow shown within. Question chronic thro mbus along vessel wall? Unable to show color flow in distal femoral vein, but vein appears to compress. Remaining veins appear to show color flow within. Small saphenous vein not seen. Left Leg: Color flow seen in veins imaged. Popliteal vein imaged in transverse. Unable to visualize prox calf veins. Small saphenous vein not seen. IMPRESSION: 1. Incomplete compression of the common femoral vein on the right which is a flat appearance on CT. Findings could represent incomplete occlusion and a chronic thrombus. 2. No evidence for left lower extremity deep vein thrombosis. Poor visualization of the calf veins.
--- NOTE | 2023-07-27 11:34 | P.CONS ---
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 Patient states that he follows with home MD Bree Kenyon is his provider who has been ordering Ema foam and ABDs to cover the site. Patient previously had a negative pressure wound VAC however once the drainage stopped to the site they stopped utilizing the negative pressure wound VAC. Discussed with the patient that continuing with negative pressure wound VAC would be beneficial however he declined at this time. The left ischium ulceration is a stage III pressure ulcer measuring approximately 4 x 8 x 4 with undermining noted to the superior portion of the ulceration. Granulation is noted within the wound bed the periwound does show maceration and ecchymosis. The right hip ulceration is a stage II pressure ulcer measuring approximately 1.5 x 1.5 x 1.0 cm with granulation noted to the wound bed slough and nonviable tissue present. No tunneling or undermining noted to the site. Review Of Systems: Constitutional: No fever, no chills, no night sweats. No weight change. No weakness, fatigue or lethargy. No daytime sleepiness. Integumentary:reports wounds, no lesions. No rash or pruritus. No unusual bruising. No change in hair or nails. Physical exam: General Appearance: Alert, cooperative, no distress, appears stated age. Skin: See HPI all other Skin color, texture, tugor normal, no rashes or lesions. Neurologic: Alert oriented x3 Assessment: 1. Stage III pressure ulcer left buttocks 2. Stage II pressure ulcer right hip Plan: 1.Right hip: Absorptive silver, moisten with normal saline, cover with border foam. Left ischium: Absorptive silver, moisten with normal saline, make pack with kerlix if needed, cover with border foam. Turn patient every 2 hours. Utilize appropriate surface for offloading. Thank you for the consultation any questions please contact the wound care center DNP note has been reviewed and discussed with Dr. Castillo and the impression and plan of care has been directed as dictated. 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 & peg tube/ since removed, picc lines Past Anesthesia/Blood Transfusion Reactions: No Reported Reaction Past Psychological History: No Psychological Hx Reported Smoking Status: Never smoker Past Alcohol Use History: None Reported Past Drug Use History: None Reported - Past Family History Mother Family Medical History: No Reported History Additional Family Medical History / Comment(s): Mother is healthy. Father Family Medical History: COPD Additional Family Medical History / Comment(s): Father at the age of 65yrs. Medications and Allergies Home Medications Medication Instructions Recorded Confirmed Type levETIRAcetam [Keppra Xr] 500 mg PO DAILY 08/19/18 07/26/23 History Atorvastatin [Lipitor] 10 mg PO HS 08/24/20 07/26/23 History Famotidine [Pepcid] 20 mg PO BID 05/25/22 07/26/23 History Baclofen [Lioresal] 10 mg PO BID PRN 07/26/23 07/26/23 History Magnesium Oxide [Magnesium] 500 mg PO DAILY 07/26/23 07/26/23 History Ondansetron Odt [Zofran Odt] 4 mg PO Q6H PRN 07/26/23 07/26/23 History Ultra Probiotic 1 cap PO DAILY 07/26/23 07/26/23 History Allergies Allergy/AdvReac Type Severity Reaction Status Date / Time Sulfa (Sulfonamide Allergy Rash/Hives Verified 07/26/23 12:54 Antibiotics) tetracycline Allergy Rash/Hives/ Verified 07/26/23 12:54 Constipatio n/Nausea/Vo miting Physical Exam Vitals: Vital Signs Temp Pulse Resp BP Pulse Ox 07/27/23 10:30 97 18 104/68 97 07/27/23 10:15 108 H 24 92/77 97 07/27/23 10:00 102 H 21 91/60 98 07/27/23 09:45 102 H 28 H 81/55 96 07/27/23 09:30 25 H 101/59 97 07/27/23 09:15 98 27 H 79/63 97 07/27/23 09:00 101 H 15 96/64 96 07/27/23 08:45 89 15 96/64 96 07/27/23 08:30 84 15 97/66 97 07/27/23 08:27 75 07/27/23 08:19 73 07/27/23 08:15 64 15 101/66 96 07/27/23 08:00 96.7 F L 70 16 100/79 96 07/27/23 07:45 70 16 107/73 97 07/27/23 07:30 71 18 105/65 97 07/27/23 07:15 72 13 110/60 96 07/27/23 07:00 78 14 96/58 96 07/27/23 06:45 73 15 108/67 96 07/27/23 06:30 71 15 103/76 96 07/27/23 06:15 63 15 111/78 96 07/27/23 06:00 73 14 107/65 97 07/27/23 05:45 97.4 F L 61 12 99/79 97 07/27/23 05:30 66 12 111/74 96 07/27/23 05:15 71 13 109/60 96 07/27/23 05:12 94 F L 73 16 109/60 97 07/27/23 01:08 59 L 18 122/64 98 07/27/23 00:40 56 L 19 97/69 98 07/27/23 00:20 55 L 16 135/120 97 07/27/23 00:10 59 L 17 129/65 97 07/27/23 00:00 59 L 19 112/65 97 07/26/23 23:52 62 18 80/48 98 07/26/23 23:50 62 14 98/52 96 07/26/23 23:40 57 L 16 93/62 95 07/26/23 23:30 52 L 12 92/53 96 07/26/23 23:20 51 L 16 100/53 96 04/17/24 23:10 54 L 14 96/53 96 07/26/23 22:50 53 L 13 78/45 98 07/26/23 22:40 53 L 16 76/47 98 07/26/23 22:30 52 L 17 90/58 98 07/26/23 22:20 57 L 12 83/45 97 07/26/23 22:10 60 16 89/50 98 07/26/23 22:02 89/50 07/26/23 22:00 64 16 96/51 97 07/26/23 21:50 61 16 85/46 96 07/26/23 21:49 67 20 85/46 97 07/26/23 21:10 56 L 15 71/40 96 07/26/23 19:34 52 L 07/26/23 19:25 48 L 16 89/51 99 07/26/23 19:24 50 L 07/26/23 17:59 47 L 16 81/56 96 07/26/23 17:12 50 L 18 77/41 96 07/26/23 15:26 49 L 14 78/46 99 07/26/23 13:08 57 L 16 107/63 98 07/26/23 12:00 60 14 78/57 98 Intake and Output 07/26/23 07/27/23 07/27/23 22:59 06:59 14:59 Intake Total 458.539 793.333 Output Total 1100 730 200 Balance -1100 -271.461 593.333 Intake: IV 390 670 Piperacillin-Tazobactam 3 50 .375 gm In Sodium Chloride 0.9% 100 ml @ 25 mls/hr IVPB Q8HR [facility] Rx# :[id number] Potassium Chloride 10 meq 100 In Water For Injection 1 100ml.bag @ 100 mls/hr IVPB Q1HR [facility] Rx#: [id number] Sodium Chloride 0.9% 1, 390 520 000 ml @ 130 mls/hr IV . Q7H42M [facility] Rx#:[id number] Intake, IV Titration 68.539 123.333 Amount Norepinephrine 4 mg In 68.539 23.333 Sodium Chloride 0.9% 250 ml @ 0.03 MCG/KG/MIN 9. 332 mls/hr IV .Q24H [facility] Rx#:[id number] Potassium Chloride 10 meq 100 In Water For Injection 1 100ml.bag @ 100 mls/hr IVPB Q1HR [facility] Rx#: [id number] Output: Urine 1100 730 200 Uretheral ([place]) 1100 Other: Voiding Method Indwelling Catheter Indwelling Catheter Weight 81.647 kg Results CBC & Chem 7: 07/27/23 04:10 07/27/23 04:10 Labs: Abnormal Lab Results - Last 24 Hours (Table) 07/26/23 07/26/23 07/26/23 Range/Units 10:50 10:50 12:16 WBC 15.2 H (3.8-10.6) k/uL MCV 78.6 L (80.0-100.0) fL RDW 15.7 H (11.5-15.5) % Plt Count 97 L (150-450) k/uL Neutrophils # 13.6 H (1.3-7.7) k/uL Lymphocytes # 0.5 L (1.0-4.8) k/uL INR 1.2 H (<1.2) APTT 37.4 H (22.0-30.0) sec D-Dimer (<0.60) mg/L FEU Sodium (137-145) mmol/L Potassium (3.5-5.1) mmol/L Carbon Dioxide (22-30) mmol/L BUN (9-20) mg/dL Calcium (8.4-10.2) mg/dL Total Bilirubin (0.2-1.3) mg/dL Conjugated Bilirubin (0.0-0.3) mg/dL Unconjugated Bilirubin (0.0-1.1) mg/dL Delta Bilirubin (0.0-0.2) mg/dL Alkaline Phosphatase (38-126) U/L Total Protein (6.3-8.2) g/dL Albumin (3.5-5.0) g/dL Lipase (23-300) U/L Urine Blood Trace H (Negative) Ur Leukocyte Esterase Large H (Negative) Urine WBC >182 H (0-5) /hpf Urine WBC Clumps Few H (None) /hpf Urine Bacteria Rare H (None) /hpf 07/26/23 07/27/23 07/27/23 Range/Units 19:49 04:10 04:10 WBC 22.2 H (3.8-10.6) k/uL MCV (80.0-100.0) fL RDW 16.0 H (11.5-15.5) % Plt Count 94 L (150-450) k/uL Neutrophils # 20.9 H (1.3-7.7) k/uL Lymphocytes # 0.5 L (1.0-4.8) k/uL INR (<1.2) APTT (22.0-30.0) sec D-Dimer 1.07 H (<0.60) mg/L FEU Sodium 129 L (137-145) mmol/L Potassium 3.1 L (3.5-5.1) mmol/L Carbon Dioxide 14 L (22-30) mmol/L BUN 41 H (9-20) mg/dL Calcium 7.5 L (8.4-10.2) mg/dL Total Bilirubin 2.9 H (0.2-1.3) mg/dL Conjugated Bilirubin (0.0-0.3) mg/dL Unconjugated Bilirubin (0.0-1.1) mg/dL Delta Bilirubin (0.0-0.2) mg/dL Alkaline Phosphatase 157 H (38-126) U/L Total Protein 5.3 L (6.3-8.2) g/dL Albumin 2.4 L (3.5-5.0) g/dL Lipase 9628 H (23-300) U/L Urine Blood (Negative) Ur Leukocyte Esterase (Negative) Urine WBC (0-5) /hpf Urine WBC Clumps (None) /hpf Urine Bacteria (None) /hpf 07/27/23 Range/Units 04:10 WBC (3.8-10.6) k/uL MCV (80.0-100.0) fL RDW (11.5-15.5) % Plt Count (150-450) k/uL Neutrophils # (1.3-7.7) k/uL Lymphocytes # (1.0-4.8) k/uL INR (<1.2) APTT (22.0-30.0) sec D-Dimer (<0.60) mg/L FEU Sodium (137-145) mmol/L Potassium (3.5-5.1) mmol/L Carbon Dioxide (22-30) mmol/L BUN (9-20) mg/dL Calcium (8.4-10.2) mg/dL Total Bilirubin 3.1 H (0.2-1.3) mg/dL Conjugated Bilirubin 0.4 H (0.0-0.3) mg/dL Unconjugated Bilirubin 2.0 H (0.0-1.1) mg/dL Delta Bilirubin 0.7 H (0.0-0.2) mg/dL Alkaline Phosphatase (38-126) U/L Total Protein (6.3-8.2) g/dL Albumin (3.5-5.0) g/dL Lipase (23-300) U/L Urine Blood (Negative) Ur Leukocyte Esterase (Negative) Urine WBC (0-5) /hpf Urine WBC Clumps (None) /hpf Urine Bacteria (None) /hpf Assessment and Plan (1) Stage III pressure ulcer of left buttock Current Visit: Yes Status: Acute Code(s): L89.323 - PRESSURE ULCER OF LEFT BUTTOCK, STAGE 3 SNOMED Code(s): 50664668685259 (2) Stage II pressure ulcer of right hip Current Visit: Yes Status: Acute Code(s): L89.212 - PRESSURE ULCER OF RIGHT HIP, STAGE 2 SNOMED Code(s): 55146388189384
[2023-07-27] MEDS: DOCUSATE 283 MG/5 ML ENEMA RECTAL SCH (12:13)
--- NOTE | 2023-07-27 12:20 | CA ---
Transthoracic Echo Report Name: Og Grant Age: 57 Gender: M : 1965 Exam Date: 07/27/2023 09:40 Exam Location: [place] [facility] Ht (in): 74 Wt (lb): 180 Ordering Physician: Kervin Clemente MD ([id number]) Attending/Referring Phys: Fork Assembler Charley Marin RDCS Procedure CPT: Indications: Bradycardia Cardiac Hx: Technical Quality: Technically difficult study Contrast 1: Total Dose (mL): Contrast 2: Total Dose (mL): MEASUREMENTS (Male / Female) Normal Values 2D ECHO LV Diastolic Diameter PLAX 3.8 cm 4.2 - 5.9 / 3.9 - 5.3 cm LV Systolic Diameter PLAX 2.7 cm IVS Diastolic Thickness 1.2 cm 0.6 - 1.0 / 0.6 - 0.9 cm LVPW Diastolic Thickness 1.3 cm 0.6 - 1.0 / 0.6 - 0.9 cm LV Relative Wall Thickness 0.6 RV Internal Dim ED PLAX 1.6 cm LV Diastolic Volume MOD BP 53.8 cm??? 67 - 155 / 56 - 104 cm??? LV Systolic Volume MOD BP 23.3 cm??? 22 - 58 / 19 - 49 cm??? LV Ejection Fraction MOD BP 56.7 % >= 55 % LV Cardiac Index MOD BP 1551.2 cm???/min???m??? LV Diastolic Volume MOD 4C 50.3 cm??? LV Systolic Volume MOD 4C 14.9 cm??? LV Ejection Fraction MOD 4C 70.4 % LV Cardiac Index MOD 4C 1800.3 cm???/min???m??? LV Diastolic Length 4C 6.7 cm LV Systolic Length 4C 5.3 cm LV Diastolic Volume MOD 2C 54.2 cm??? LV Systolic Volume MOD 2C 29.9 cm??? LV Ejection Fraction MOD 2C 44.8 % LV Cardiac Index MOD 2C 1235.4 cm???/min???m??? LV Diastolic Length 2C 7.2 cm LV Systolic Length 2C 6.6 cm Ascending Aorta Diameter 3.2 cm M-MODE Aortic Root Diameter MM 3.3 cm LA Systolic Diameter MM 1.7 cm LA Ao Ratio MM 0.5 DOPPLER AV Peak Velocity 138.7 cm/s AV Peak Gradient 7.7 mmHg LVOT Peak Velocity 146.4 cm/s LVOT Peak Gradient 8.6 mmHg LVOT Velocity Time Integral 21.1 cm MV E' Velocity 7.0 cm/s TR Peak Velocity 126.7 cm/s TR Peak Gradient 6.4 mmHg PV Peak Velocity 106.0 cm/s PV Peak Gradient 4.5 mmHg FINDINGS Left Ventricle Left ventricular ejection fraction is estimated at 55-60 %. Mildly increased septal wall thickness. Normal left ventricular systolic function with no obvious regional wall motion abnormalities. Right Ventricle Right ventricle not well visualized. Right ventricular systolic pressure within normal limits. Right Atrium Right atrium not well visualized. Left Atrium Left atrium not well visualized. Mitral Valve Mitral valve not well visualized. No mitral stenosis. Trace mitral regurgitation. Aortic Valve Trileaflet aortic valve. No aortic valve stenosis or regurgitation. Tricuspid Valve Structurally normal tricuspid valve. No tricuspid stenosis. Trace tricuspid regurgitation. Pulmonic Valve Structurally normal pulmonic valve. Trace pulmonic regurgitation. Pericardium Echo free space anterior to the right ventricle likely represents a fat pad. Prominent epicardial fat. Aorta Normal size aortic root and proximal ascending aorta. CONCLUSIONS Technically suboptimal study Normal LV function Previewed by: Dr. Víctor Stanley MD (Electronically Signed) Final Date: 27 July 2023 12:19
--- NOTE | 2023-07-27 14:05 | P.GSCN ---
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 Patient has recurrent UTIs and has a chronic internal Mclaughlin catheter. Patient admitted to the ICU for possible UTI with sepsis. Patient complains of lower abdominal pain that started 5 days ago. He is also been having issues with constipation. Last bowel movement was 2 days ago. He did have dry heaves. Patient was found to have evidence of acute pancreatitis. Denies any prior history of pancreatitis. Denies any alcohol use. Lipase did increase from [id number]. Patient has been mildly tachycardic and hypotensive. He is on Levophed. Patient reports having a Cologuard test done about 3 months ago and reports it is normal. Surgical service consulted for pancreatitis. Patient also followed by GI service. PAST MEDICAL HISTORY: GERD/Reflux, Hyperlipidemia, Pneumonia, Seizure Disorder, Skin Disorder, Quadriplegic due to hockey-related injury to C5 through C6 in 1984, chronic interal catheter, freqeunt UTIs/UTI with sepsis, kidney stones-surgically removed, past decubitus, recurrent L buttock decub, last seizure 2016, healed skin injury to buttock PAST SURGICAL HISTORY: multiple surgeries/skin grafts for pressure sores, right ureteroscopy with lithotripsy, external sphincetrotomy 1990 and 1994, cystoscopy with irrigation of blood clots from bladder, trach. & peg tube/ since removed, picc lines MEDICATIONS: See below ALLERGIES: See below SOCIAL HISTORY: No illicit drug use. REVIEW OF SYSTEMS: CONSTITUTIONAL: Denies fever or chills. HEENT: Denies blurred vision, vision changes, or eye pain. Denies hemoptysis CARDIOVASCULAR: Denies chest pain or pressure. RESPIRATORY: No shortness of breath. GASTROINTESTINAL: See HPI for pertinent findings HEMATOLOGIC: Denies bleeding disorders. GENITOURINARY: Denies any blood in urine or increased urinary frequency. SKIN: Denies pruitis. Denies rash. PHYSICAL EXAM: VITAL SIGNS: Reviewed GENERAL: Well-developed in no acute distress. HEENT: No sclera icterus. Extraocular movements grossly intact. Moist buccal mucosa. Head is atraumatic, normocephalic. No nasal drainage. ABDOMEN: Soft. Nondistended. Tenderness with palpation of suprapubic area NEUROLOGIC: Alert and oriented. Cranial nerves II through XII grossly intact. LABORATORY DATA: WBC is up from 15-22.2 Hgb 13.6 platelets 94 Sodium is 129 potassium 3.1 creatinine 0.73 Total bilirubin 3.1 AST 31 ALT 31 alk phos 157 Lipase 1220 up to 9628 Amylase 151 IMAGING: CT scan abdomen pelvis prominent fluid distention of the stomach and duodenum. There is scattered fluid throughout the small bowel. Duodenum and jejunum show mucosal hyperemia circumferential wall thickening of the mid to distal sigmoid colon and rectum. Correlate for gastroenteritis or nonspecific mild to moderate distal colitis. Possible reflux esophagitis. Atrophic bilateral kidneys left side decubitus ulcer overlying the ischial tuberosity. Abdominal ultrasound no evidence of acute process. Right renal calculi. Ascit es in the right upper quadrant. Coarsened echotexture to the liver correlate for hepatocellular disease. Gallbladder limited visibility but no obvious stones. CBD obscured. ASSESSMENT: 1. Abdominal pain 2. Acute pancreatitis. No gallstones noted on ultrasound 3. Circumferential wall thickening of the mid to distal sigmoid colon and rectum. Correlate for gastroenteritis or colitis noted on CT 3. UTI with sepsis 4. Hyperbilirubinemia and elevated alk phos 5. Quadriplegic history PLAN: -Continue ICU management -Continue supportive care -Keep patient n.p.o. for now -Continue IV fluids -Await further recommendations per GI service -Repeat labs in a.m. -Patient can continue his bowel regimen from home Physician Acquisition Cost Estimator note has been reviewed by physician. Signing provider agrees with the documented findings, assessment, and plan of care. 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 & peg tube/ since removed, picc lines Past Anesthesia/Blood Transfusion Reactions: No Reported Reaction Past Psychological History: No Psychological Hx Reported Smoking Status: Never smoker Past Alcohol Use History: None Reported Past Drug Use History: None Reported - Past Family History Mother Family Medical History: No Reported History Additional Family Medical History / Comment(s): Mother is healthy. Father Family Medical History: COPD Additional Family Medical History / Comment(s): Father at the age of 65yrs. Medications and Allergies Home Medications Medication Instructions Recorded Confirmed Type levETIRAcetam [Keppra Xr] 500 mg PO DAILY 08/19/18 07/26/23 History Atorvastatin [Lipitor] 10 mg PO HS 08/24/20 07/26/23 History Famotidine [Pepcid] 20 mg PO BID 05/25/22 07/26/23 History Baclofen [Lioresal] 10 mg PO BID PRN 07/26/23 07/26/23 History Magnesium Oxide [Magnesium] 500 mg PO DAILY 07/26/23 07/26/23 History Ondansetron Odt [Zofran Odt] 4 mg PO Q6H PRN 07/26/23 07/26/23 History Ultra Probiotic 1 cap PO DAILY 07/26/23 07/26/23 History Allergies Allergy/AdvReac Type Severity Reaction Status Date / Time Sulfa (Sulfonamide Allergy Rash/Hives Verified 07/26/23 12:54 Antibiotics) tetracycline Allergy Rash/Hives/ Verified 07/26/23 12:54 Constipatio n/Nausea/Vo miting Surgical - Exam Vital Signs Temp Pulse Resp BP Pulse Ox 97.6 F 77 18 57/40 97 07/26/23 10:18 07/26/23 10:18 07/26/23 10:18 07/26/23 10:18 07/26/23 10:18 Results - Labs 07/27/23 04:10 07/27/23 04:10 Abnormal Lab Results - Last 24 Hours (Table) 07/26/23 07/26/23 07/26/23 Range/Units 10:50 10:50 10:50 WBC 15.2 H (3.8-10.6) k/uL MCV 78.6 L (80.0-100.0) fL RDW 15.7 H (11.5-15.5) % Plt Count 97 L (150-450) k/uL Neutrophils # 13.6 H (1.3-7.7) k/uL Lymphocytes # 0.5 L (1.0-4.8) k/uL INR 1.2 H (<1.2) APTT 37.4 H (22.0-30.0) sec D-Dimer (<0.60) mg/L FEU Sodium 120 L (137-145) mmol/L Potassium (3.5-5.1) mmol/L Chloride 87 L (98-107) mmol/L Carbon Dioxide 21 L (22-30) mmol/L BUN 67 H (9-20) mg/dL Calcium 8.3 L (8.4-10.2) mg/dL Total Bilirubin 3.3 H (0.2-1.3) mg/dL Conjugated Bilirubin (0.0-0.3) mg/dL Unconjugated Bilirubin (0.0-1.1) mg/dL Delta Bilirubin (0.0-0.2) mg/dL Alkaline Phosphatase 171 H (38-126) U/L Total Protein 6.1 L (6.3-8.2) g/dL Albumin 3.0 L (3.5-5.0) g/dL Amylase 151 H (30-110) U/L Lipase 1220 H (23-300) U/L Urine Blood (Negative) Ur Leukocyte Esterase (Negative) Urine WBC (0-5) /hpf Urine WBC Clumps (None) /hpf Urine Bacteria (None) /hpf 07/26/23 07/26/23 07/27/23 Range/Units 12:16 19:49 04:10 WBC (3.8-10.6) k/uL MCV (80.0-100.0) fL RDW (11.5-15.5) % Plt Count (150-450) k/uL Neutrophils # (1.3-7.7) k/uL Lymphocytes # (1.0-4.8) k/uL INR (<1.2) APTT (22.0-30.0) sec D-Dimer 1.07 H (<0.60) mg/L FEU Sodium 129 L (137-145) mmol/L Potassium 3.1 L (3.5-5.1) mmol/L Chloride (98-107) mmol/L Carbon Dioxide 14 L (22-30) mmol/L BUN 41 H (9-20) mg/dL Calcium 7.5 L (8.4-10.2) mg/dL Total Bilirubin 2.9 H (0.2-1.3) mg/dL Conjugated Bilirubin (0.0-0.3) mg/dL Unconjugated Bilirubin (0.0-1.1) mg/dL Delta Bilirubin (0.0-0.2) mg/dL Alkaline Phosphatase 157 H (38-126) U/L Total Protein 5.3 L (6.3-8.2) g/dL Albumin 2.4 L (3.5-5.0) g/dL Amylase (30-110) U/L Lipase 9628 H (23-300) U/L Urine Blood Trace H (Negative) Ur Leukocyte Esterase Large H (Negative) Urine WBC >182 H (0-5) /hpf Urine WBC Clumps Few H (None) /hpf Urine Bacteria Rare H (None) /hpf 07/27/23 07/27/23 Range/Units 04:10 04:10 WBC 22.2 H (3.8-10.6) k/uL MCV (80.0-100.0) fL RDW 16.0 H (11.5-15.5) % Plt Count 94 L (150-450) k/uL Neutrophils # 20.9 H (1.3-7.7) k/uL Lymphocytes # 0.5 L (1.0-4.8) k/uL INR (<1.2) APTT (22.0-30.0) sec D-Dimer (<0.60) mg/L FEU Sodium (137-145) mmol/L Potassium (3.5-5.1) mmol/L Chloride (98-107) mmol/L Carbon Dioxide (22-30) mmol/L BUN (9-20) mg/dL Calcium (8.4-10.2) mg/dL Total Bilirubin 3.1 H (0.2-1.3) mg/dL Conjugated Bilirubin 0.4 H (0.0-0.3) mg/dL Unconjugated Bilirubin 2.0 H (0.0-1.1) mg/dL Delta Bilirubin 0.7 H (0.0-0.2) mg/dL Alkaline Phosphatase (38-126) U/L Total Protein (6.3-8.2) g/dL Albumin (3.5-5.0) g/dL Amylase (30-110) U/L Lipase (23-300) U/L Urine Blood (Negative) Ur Leukocyte Esterase (Negative) Urine WBC (0-5) /hpf Urine WBC Clumps (None) /hpf Urine Bacteria (None) /hpf Diabetes panel 07/26/23 07/27/23 Range/Units 10:50 04:10 Sodium 120 L 129 L (137-145) mmol/L Potassium 4.1 3.1 L (3.5-5.1) mmol/L Chloride 87 L 105 (98-107) mmol/L Carbon Dioxide 21 L 14 L (22-30) mmol/L BUN 67 H 41 H (9-20) mg/dL Creatinine 0.99 0.73 (0.66-1.25) mg/dL Glucose 90 91 (74-99) mg/dL Calcium 8.3 L 7.5 L (8.4-10.2) mg/dL AST 42 31 (17-59) U/L ALT 38 31 (4-49) U/L Alkaline Phosphatase 171 H 157 H (38-126) U/L Total Protein 6.1 L 5.3 L (6.3-8.2) g/dL Albumin 3.0 L 2.4 L (3.5-5.0) g/dL Calcium panel 07/26/23 07/27/23 Range/Units 10:50 04:10 Calcium 8.3 L 7.5 L (8.4-10.2) mg/dL Albumin 3.0 L 2.4 L (3.5-5.0) g/dL Pituitary panel 07/26/23 07/27/23 Range/Units 10:50 04:10 Sodium 120 L 129 L (137-145) mmol/L Potassium 4.1 3.1 L (3.5-5.1) mmol/L Chloride 87 L 105 (98-107) mmol/L Carbon Dioxide 21 L 14 L (22-30) mmol/L BUN 67 H 41 H (9-20) mg/dL Creatinine 0.99 0.73 (0.66-1.25) mg/dL Glucose 90 91 (74-99) mg/dL Calcium 8.3 L 7.5 L (8.4-10.2) mg/dL Adrenal panel 07/26/23 07/27/23 07/27/23 Range/Units 10:50 04:10 04:10 Sodium 120 L 129 L (137-145) mmol/L Potassium 4.1 3.1 L (3.5-5.1) mmol/L Chloride 87 L 105 (98-107) mmol/L Carbon Dioxide 21 L 14 L (22-30) mmol/L BUN 67 H 41 H (9-20) mg/dL Creatinine 0.99 0.73 (0.66-1.25) mg/dL Glucose 90 91 (74-99) mg/dL Calcium 8.3 L 7.5 L (8.4-10.2) mg/dL Total Bilirubin 3.3 H 2.9 H 3.1 H (0.2-1.3) mg/dL AST 42 31 (17-59) U/L ALT 38 31 (4-49) U/L Alkaline Phosphatase 171 H 157 H (38-126) U/L Total Protein 6.1 L 5.3 L (6.3-8.2) g/dL Albumin 3.0 L 2.4 L (3.5-5.0) g/dL
--- NOTE | 2023-07-27 14:50 | P.PN ---
Subjective Progress Note Date: 07/27/23 Principal diagnosis: Reason for follow-up is UTI and sepsis Patient is a 57-year-old male past medical history significant for quadriplegia from an injury back in 1994 did have history of seizure disorder pneumonia hyperlipidemia reflux and recurrent UTI, recently treated for UTI in the outpatient setting with doxycycline presented to hospital with weakness dry heaves did have a positive UA concerning for symptomatic urinary tract infection was hypotensive requiring admission to ICU On today's evaluation that is 07/27/2023, patient has been afebrile, patient is breathing comfortably and is currently on room air, patient denies having any significant cough no chest pain shortness of breath, patient denies nausea vomiting or diarrhea and no abdominal pain. Patient white count is up to 22.2, creatinine 0.73 liver enzymes mildly elevated cultures currently pending, abdominal ultrasound no evidence for acute process Objective - Vital Signs Vital signs: Vital Signs Temp 97.1 F L 07/27/23 12:00 Pulse 110 H 07/27/23 13:15 Resp 19 07/27/23 13:15 BP 89/42 07/27/23 13:15 Pulse Ox 97 07/27/23 13:15 FiO2 Intake & Output 07/26/23 07/27/23 07/27/23 18:59 06:59 18:59 Intake Total 643.722 2677.662 Output Total 1830 340 Balance -1371.461 923.662 Weight 81.647 kg Intake: IV 390 1110 Piperacillin-Tazobactam 3 100 .375 gm In Sodium Chloride 0.9% 100 ml @ 25 mls/hr IVPB Q8HR [facility] Rx# :[id number] Potassium Chloride 10 meq 100 In Water For Injection 1 100ml.bag @ 100 mls/hr IVPB Q1HR [facility] Rx#: [id number] Sodium Chloride 0.9% 1, 390 910 000 ml @ 130 mls/hr IV . Q7H42M [facility] Rx#:[id number] Intake, IV Titration 68.539 153.662 Amount Norepinephrine 4 mg In 68.539 53.662 Sodium Chloride 0.9% 250 ml @ 0.03 MCG/KG/MIN 9. 332 mls/hr IV .Q24H [facility] Rx#:[id number] Potassium Chloride 10 meq 100 In Water For Injection 1 100ml.bag @ 100 mls/hr IVPB Q1HR [facility] Rx#: [id number] Output: Urine 1830 340 Uretheral (Mclaughlin) 1100 Other: Voiding Method Indwelling Catheter Indwelling Catheter - Exam GENERAL DESCRIPTION: Middle-age male lying in bed in no distress RESPIRATORY SYSTEM: Unlabored breathing , decreased breath sounds at bases HEART: S1 S2 regular rate and rhythm , ABDOMEN: Soft , no tenderness EXTREMITIES: No edema feet - Labs CBC & Chem 7: 07/27/23 04:10 07/27/23 04:10 Labs: Abnormal Lab Results - Last 24 Hours (Table) 07/26/23 07/27/23 07/27/23 Range/Units 19:49 04:10 04:10 WBC 22.2 H (3.8-10.6) k/uL RDW 16.0 H (11.5-15.5) % Plt Count 94 L (150-450) k/uL Neutrophils # 20.9 H (1.3-7.7) k/uL Lymphocytes # 0.5 L (1.0-4.8) k/uL D-Dimer 1.07 H (<0.60) mg/L FEU Sodium 129 L (137-145) mmol/L Potassium 3.1 L (3.5-5.1) mmol/L Carbon Dioxide 14 L (22-30) mmol/L BUN 41 H (9-20) mg/dL Calcium 7.5 L (8.4-10.2) mg/dL Total Bilirubin 2.9 H (0.2-1.3) mg/dL Conjugated Bilirubin (0.0-0.3) mg/dL Unconjugated Bilirubin (0.0-1.1) mg/dL Delta Bilirubin (0.0-0.2) mg/dL Alkaline Phosphatase 157 H (38-126) U/L Total Protein 5.3 L (6.3-8.2) g/dL Albumin 2.4 L (3.5-5.0) g/dL Lipase 9628 H (23-300) U/L 07/27/23 Range/Units 04:10 WBC (3.8-10.6) k/uL RDW (11.5-15.5) % Plt Count (150-450) k/uL Neutrophils # (1.3-7.7) k/uL Lymphocytes # (1.0-4.8) k/uL D-Dimer (<0.60) mg/L FEU Sodium (137-145) mmol/L Potassium (3.5-5.1) mmol/L Carbon Dioxide (22-30) mmol/L BUN (9-20) mg/dL Calcium (8.4-10.2) mg/dL Total Bilirubin 3.1 H (0.2-1.3) mg/dL Conjugated Bilirubin 0.4 H (0.0-0.3) mg/dL Unconjugated Bilirubin 2.0 H (0.0-1.1) mg/dL Delta Bilirubin 0.7 H (0.0-0.2) mg/dL Alkaline Phosphatase (38-126) U/L Total Protein (6.3-8.2) g/dL Albumin (3.5-5.0) g/dL Lipase (23-300) U/L Assessment and Plan Plan: 1patient presented hospitalized weakness episode of nausea vomiting positive UA concerning for catheter assisted UTI failing outpatient oral doxycycline therapy 2-sulfa allergy 3-patient did have elevated liver enzymes ultrasound was negative for acute process General surgery is following the patient 4-patient to continue with Zosyn while waiting for the culture to finalize Family at the bedside questions were answered Dictation was produced using [employer] dictation software. please excuse any grammatical, word or spelling errors. Time with Patient: Less than 30
--- NOTE | 2023-07-27 14:57 | P.CONS ---
History of Present Illness - Reason for Consult Consult date: 07/27/23 Pancreatitis, hyperbilirubinemia Requesting physician: Abdullahi Pollard - Chief Complaint Nausea, vomiting and diarrhea - History of Present Illness This 57-year-old male who presented to the emergency department yesterday with complaints of nausea vomiting diarrhea and generalized weakness. He has a history of quadriplegia due to a neck injury. He has been on antibiotics for urinary tract infections had a few episodes of vomiting over the last few days. Patient had a visiting nurse and was noted to be hypotensive so he was brought to the hospital for further evaluation. Patient was also noted to be bradycardic. They admitted him to the ICU for sepsis and hypotension which she has been requiring vasopressors. He states that he has chronic constipation and has a bowel regimen. He has not had any diarrhea. He did have some nausea and vomiting. He does have a chronic Mclaughlin catheter due to being quadriplegic and was recently put on tetracycline which he finished on Monday. It was the first time he had been on this medication. Denies any previous history of pancreatitis. Denies any history of underlying liver disease. Currently denies any abdominal pain but states that he was having some lower abdominal discomfort. He states he relates it to constipation. Imaging CT abdomen pelvis with contrast reports prominent fluid distention of the stom ach and duodenum. There is also scattered fluid throughout the small bowel. Duodenum and jejunum show mucosal hyperemia. In addition there is circumferential wall thickening of the mid to distal sigmoid colon and rectum. Correlate for gastroenteritis as well as nonspecific mild to moderate distal colitis. Mclaughlin catheter present. Collapsed bladder shows wall thickening as well. Correlate to exclude cystitis. Possible mild reflux esophagitis. Atrophic bilateral kidneys but with delayed excretion may reflect acute on chronic kidney injury. Left-sided decubitus ulcer overlying the ischial tuberosity. Soft tissue thickening directly abuts the posterior left hip and left ischium no discrete osseous destruction. Probably relating to healing granulation tissue. Clinically correlate. Abdominal ultrasound reports no evidence for acute process. No evidence for obstructive uropathy. Right renal calculi. Ascites and right upper quadrant. Coarsened echotexture to the liver correlate for hepatocellular disease. Labs WBC 22 hemoglobin 13.6 hematocrit 42 platelet count 94,000 sodium 129 potassium 3.1 BUN 41 creatinine 0.7 total bilirubin 3.1 conjugated bili 0.4 unconjugated bili 2.0 AST 31 ALT 31 alkaline phosphatase 357 lipase 9628 Review of Systems REVIEW OF SYSTEMS: CARDIOPULMONARY: No chest pain or shortness of breath. Gastrointestinal: No abdominal pain. No hematemesis, coffee-ground emesis. No rectal bleeding, or melena. Patient notes over bloody, denies any diarrhea. States he has chronic constipation. GENITOURINARY: No dysuria or hematuria. MUSCULOSKELETAL: Reports normal range of motion. SKIN: No rashes. No jaundice. ENDOCRINE: No chills, fevers. No excessive weight gain or loss. No polydipsia or polyuria. PSYCHIATRIC: Unremarkable. NEUROLOGY: No change in mental status. Increased weakness. Patient is quadriplegic. ENT: Vision unremarkable. CONSTITUTIONAL: No recent weight loss. No fever, chills, night sweats. 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 & peg tube/ since removed, picc lines Past Anesthesia/Blood Transfusion Reactions: No Reported Reaction Past Psychological History: No Psychological Hx Reported Smoking Status: Never smoker Past Alcohol Use History: None Reported Past Drug Use History: None Reported - Past Family History Mother Family Medical History: No Reported History Additional Family Medical History / Comment(s): Mother is healthy. Father Family Medical History: COPD Additional Family Medical History / Comment(s): Father at the age of 65yrs. Medications and Allergies Home Medications Medication Instructions Recorded Confirmed Type levETIRAcetam [Keppra Xr] 500 mg PO DAILY 08/19/18 07/26/23 History Atorvastatin [Lipitor] 10 mg PO HS 08/24/20 07/26/23 History Famotidine [Pepcid] 20 mg PO BID 05/25/22 07/26/23 History Baclofen [Lioresal] 10 mg PO BID PRN 07/26/23 07/26/23 History Magnesium Oxide [Magnesium] 500 mg PO DAILY 07/26/23 07/26/23 History Ondansetron Odt [Zofran Odt] 4 mg PO Q6H PRN 07/26/23 07/26/23 History Ultra Probiotic 1 cap PO DAILY 07/26/23 07/26/23 History Allergies Allergy/AdvReac Type Severity Reaction Status Date / Time Sulfa (Sulfonamide Allergy Rash/Hives Verified 07/26/23 12:54 Antibiotics) tetracycline Allergy Rash/Hives/ Verified 07/26/23 12:54 Constipatio n/Nausea/Vo miting Physical Exam Vitals: Vital Signs Temp Pulse Resp BP Pulse Ox 07/27/23 08:27 75 07/27/23 08:19 73 07/27/23 07:45 70 16 107/73 97 07/27/23 07:30 71 18 105/65 97 07/27/23 07:15 72 13 110/60 96 07/27/23 07:00 78 14 96/58 96 07/27/23 06:45 73 15 108/67 96 07/27/23 06:30 71 15 103/76 96 07/27/23 06:15 63 15 111/78 96 07/27/23 06:00 73 14 107/65 97 07/27/23 05:45 97.4 F L 61 12 99/79 97 07/27/23 05:30 66 12 111/74 96 07/27/23 05:15 71 13 109/60 96 07/27/23 05:12 94 F L 73 16 109/60 97 07/27/23 01:08 59 L 18 122/64 98 07/27/23 00:40 56 L 19 97/69 98 07/27/23 00:20 55 L 16 135/120 97 07/27/23 00:10 59 L 17 129/65 97 07/27/23 00:00 59 L 19 112/65 97 07/26/23 23:52 62 18 80/48 98 07/26/23 23:50 62 14 98/52 96 07/26/23 23:40 57 L 16 93/62 95 07/26/23 23:30 52 L 12 92/53 96 07/26/23 23:20 51 L 16 100/53 96 07/26/23 23:10 54 L 14 96/53 96 07/26/23 22:50 53 L 13 78/45 98 07/26/23 22:40 53 L 16 76/47 98 07/26/23 22:30 52 L 17 90/58 98 07/26/23 22:20 57 L 12 83/45 97 07/26/23 22:10 60 16 89/50 98 07/26/23 22:02 89/50 07/26/23 22:00 64 16 96/51 97 07/26/23 21:50 61 16 85/46 96 07/26/23 21:49 67 20 85/46 97 07/26/23 21:10 56 L 15 71/40 96 07/26/23 19:34 52 L 07/26/23 19:25 48 L 16 89/51 99 07/26/23 19:24 50 L 07/26/23 17:59 47 L 16 81/56 96 07/26/23 17:12 50 L 18 77/41 96 07/26/23 15:26 49 L 14 78/46 99 07/26/23 13:08 57 L 16 107/63 98 07/26/23 12:00 60 14 78/57 98 07/26/23 10:46 65 62/43 07/26/23 10:18 97.6 F 77 18 57/40 97 Intake and Output 07/26/23 07/27/23 07/27/23 22:59 06:59 14:59 Intake Total 458.539 230 Output Total 1100 730 75 Balance -1100 -271.461 155 Intake: IV 390 130 Sodium Chloride 0.9% 1, 390 130 000 ml @ 130 mls/hr IV . Q7H42M MANDA Rx#:[id number] Intake, IV Titration 68.539 100 Amount Norepinephrine 4 mg In 68.539 Sodium Chloride 0.9% 250 ml @ 0.03 MCG/KG/MIN 9. 332 mls/hr IV .Q24H MANDA Rx#:[id number] Potassium Chloride 10 meq 100 In Water For Injection 1 100ml.bag @ 100 mls/hr IVPB Q1HR MANDA Rx#: [id number] Output: Urine 1100 730 75 Uretheral (Mclaughlin) 1100 Other: Voiding Method Indwelling Catheter Weight 81.647 kg General appearance: The patient is alert, oriented, appears in no acute distress. HET: Head is normocephalic and atraumatic. Conjunctiva pink. Sclera anicteric. Neck: Supple without lymphadenopathy. Trachea midline. Heart: Regular. Lungs: Equal expansion, normal respiratory effort. Abdomen: Soft, nontender, nondistended with bowel sounds. No guarding or rigidity. Skin: No rashes. No jaundice. Extremities: Normal skin color and turgor. No pedal edema. Quadriplegic. Neurological: No focal deficits. Alert and oriented x3. Results CBC & Chem 7: 07/27/23 04:10 07/27/23 04:10 Labs: Abnormal Lab Results - Last 24 Hours (Table) 07/26/23 07/26/23 07/26/23 Range/Units 10:50 10:50 10:50 WBC 15.2 H (3.8-10.6) k/uL MCV 78.6 L (80.0-100.0) fL RDW 15.7 H (11.5-15.5) % Plt Count 97 L (150-450) k/uL Neutrophils # 13.6 H (1.3-7.7) k/uL Lymphocytes # 0.5 L (1.0-4.8) k/uL INR 1.2 H (<1.2) APTT 37.4 H (22.0-30.0) sec D-Dimer (<0.60) mg/L FEU Sodium 120 L (137-145) mmol/L Potassium (3.5-5.1) mmol/L Chloride 87 L (98-107) mmol/L Carbon Dioxide 21 L (22-30) mmol/L BUN 67 H (9-20) mg/dL Calcium 8.3 L (8.4-10.2) mg/dL Total Bilirubin 3.3 H (0.2-1.3) mg/dL Alkaline Phosphatase 171 H (38-126) U/L Total Protein 6.1 L (6.3-8.2) g/dL Albumin 3.0 L (3.5-5.0) g/dL Amylase 151 H (30-110) U/L Lipase 1220 H (23-300) U/L Urine Blood (Negative) Ur Leukocyte Esterase (Negative) Urine WBC (0-5) /hpf Urine WBC Clumps (None) /hpf Urine Bacteria (None) /hpf 07/26/23 07/26/23 07/27/23 Range/Units 12:16 19:49 04:10 WBC (3.8-10.6) k/uL MCV (80.0-100.0) fL RDW (11.5-15.5) % Plt Count (150-450) k/uL Neutrophils # (1.3-7.7) k/uL Lymphocytes # (1.0-4.8) k/uL INR (<1.2) APTT (22.0-30.0) sec D-Dimer 1.07 H (<0.60) mg/L FEU Sodium 129 L (137-145) mmol/L Potassium 3.1 L (3.5-5.1) mmol/L Chloride (98-107) mmol/L Carbon Dioxide 14 L (22-30) mmol/L BUN 41 H (9-20) mg/dL Calcium 7.5 L (8.4-10.2) mg/dL Total Bilirubin 2.9 H (0.2-1.3) mg/dL Alkaline Phosphatase 157 H (38-126) U/L Total Protein 5.3 L (6.3-8.2) g/dL Albumin 2.4 L (3.5-5.0) g/dL Amylase (30-110) U/L Lipase 9628 H (23-300) U/L Urine Blood Trace H (Negative) Ur Leukocyte Esterase Large H (Negative) Urine WBC >182 H (0-5) /hpf Urine WBC Clumps Few H (None) /hpf Urine Bacteria Rare H (None) /hpf 07/27/23 Range/Units 04:10 WBC 22.2 H (3.8-10.6) k/uL MCV (80.0-100.0) fL RDW 16.0 H (11.5-15.5) % Plt Count 94 L (150-450) k/uL Neutrophils # 20.9 H (1.3-7.7) k/uL Lymphocytes # 0.5 L (1.0-4.8) k/uL INR (<1.2) APTT (22.0-30.0) sec D-Dimer (<0.60) mg/L FEU Sodium (137-145) mmol/L Potassium (3.5-5.1) mmol/L Chloride (98-107) mmol/L Carbon Dioxide (22-30) mmol/L BUN (9-20) mg/dL Calcium (8.4-10.2) mg/dL Total Bilirubin (0.2-1.3) mg/dL Alkaline Phosphatase (38-126) U/L Total Protein (6.3-8.2) g/dL Albumin (3.5-5.0) g/dL Amylase (30-110) U/L Lipase (23-300) U/L Urine Blood (Negative) Ur Leukocyte Esterase (Negative) Urine WBC (0-5) /hpf Urine WBC Clumps (None) /hpf Urine Bacteria (None) /hpf Comments: CT abdomen pelvis with contrast reports prominent fluid distention of the stomach and duodenum. There is also scattered fluid throughout the small bowel. Duodenum and jejunum show mucosal hyperemia. In addition there is circumfer ential wall thickening of the mid to distal sigmoid colon and rectum. Correlate for gastroenteritis as well as nonspecific mild to moderate distal colitis. Mclaughlin catheter present. Collapsed bladder shows wall thickening as well. Correlate to exclude cystitis. Possible mild reflux esophagitis. Atrophic bilateral kidneys but with delayed excretion may reflect acute on chronic kidney injury. Left-sided decubitus ulcer overlying the ischial tuberosity. Soft tissue thickening directly abuts the posterior left hip and left ischium no discrete osseous destruction. Probably relating to healing granulation tissue. Clinically correlate. Abdominal ultrasound reports no evidence for acute process. No evidence for obstructive uropathy. Right renal calculi. Ascites and right upper quadrant. Coarsened echotexture to the liver correlate for hepatocellular disease. Assessment and Plan (1) Hyperbilirubinemia Narrative/Plan: 57-year-old male presenting with nausea vomiting for last few days duration. Recently treated for urinary tract infection and has chronic indwelling Mclaughlin due to quadriplegia. CT abdomen pelvis bowel loops fluid-filled consistent with gastroenteritis versus nonspecific colitis. Patient noted to have elevated bilirubin on admission. Gallbladder ultrasound shows increased coarsened echotexture of the liver as well as some upper quadrant ascites. Questionable underlying liver disease. Patient also noted to have elevated lipase consistent with pancreatitis. Reviewing patient's labs he has had elevated bilirubin in the past without elevation of LFTs as he does now. Fractionated bilirubin is mostly unconjugated. patient may likely have Gilbert's syndrome. Current Visit: Yes Status: Acute Code(s): E80.6 - OTHER DISORDERS OF BILIRUBIN METABOLISM SNOMED Code(s): 69984012 (2) Pancreatitis Narrative/Plan: Pancreatitis possibly medication induced as patient has been on frequent antibiotics, with the last 1 being tetracycline which she has not been on in the past. He did finish it up on Monday. Will continue to trend lipase, there is no evidence of any biliary obstruction on imaging. Current Visit: Yes Status: Acute Code(s): K85.90 - ACUTE PANCREATITIS WITHOUT NECROSIS OR INFECTION, UNSP SNOMED Code(s): 47892939 (3) Nausea vomiting and diarrhea Current Visit: Yes Status: Acute Code(s): R11.2 - NAUSEA WITH VOMITING, UNSPECIFIED; R19.7 - DIARRHEA, UNSPECIFIED SNOMED Code(s): 3001701 (4) Quadriplegia Current Visit: Yes Status: Acute Code(s): G82.50 - QUADRIPLEGIA, UNSPECIFIED SNOMED Code(s): 69872816 (5) Hypotension Current Visit: Yes Status: Acute Code(s): I95.9 - HYPOTENSION, UNSPECIFIED SNOMED Code(s): 74202298 (6) Hyponatremia Current Visit: Yes Status: Acute Code(s): E87.1 - HYPO-OSMOLALITY AND HYPONATREMIA SNOMED Code(s): 44801700 (7) Hypokalemia Current Visit: No Status: Acute Code(s): E87.6 - HYPOKALEMIA SNOMED Code(s): 56268516 Plan: 1. Continue symptomatic and supportive care 2. Fractionate bilirubin 3. Daily CMP 4. Repeat lipase tomorrow 5. No plans at this time for any endoscopic evaluation 6. Patient's bowel regimen resumed by general surgery 7. Replace electrolytes per protocol 8. Patient may have clear liquid diet Further recommendations forthcoming based on clinical course Thank you for this consultation, we will continue to follow. Dr. Leticia Stanley I agree with the dictator's note, documented as a scribe by Carola Tucker.
[2023-07-27] MEDS: SODIUM CHLORIDE 0.9% 1,000 ML IV ONE ×2 (17:16→22:00)
[2023-07-27] MEDS: VASOPRESSIN 20 UNIT in SODIUM CHLORIDE 0.9% 50 ML IV SCH (17:45)
[2023-07-27 22:15] LABS: Anisocytosis Slight; HCT 40.8 % (39.0-53.0); Hypochromasia Slight; MCHC 31.7 g/dL (31.0-37.0); Mean Platelet Volume 8.7; Platelet Count 101 k/uL (150-450); RBC 4.81 m/uL (4.30-5.90); RDW 16.1 % (11.5-15.5); WBC 36.5 k/uL (3.8-10.6)
[2023-07-27 22:59] LABS: African American GFR (CKD) >90 (>60 ml/min/1.73 sqM); Anion Gap 12 mmol/L; Blood Urea Nitrogen 38 mg/dL (9-20); Calcium 6.8 mg/dL (8.4-10.2); Chloride 111 mmol/L (98-107); Non-African American GFR(CKD) >90 (>60 ml/min/1.73 sqM); Potassium 3.6 mmol/L (3.5-5.1); Sodium 131 mmol/L (137-145)
[2023-07-27 23:07] LABS: Carbon Dioxide 8 mmol/L (22-30); Glucose 29 mg/dL (74-99)
[2023-07-27] MEDS: PHENYLEPHRINE 40 MG in SODIUM CHLORIDE 0.9% 250 ML IV SCH (23:12)
[2023-07-27 23:18] LABS: Glucose,Whole Blood 152 mg/dL (70-110)
[2023-07-27 23:30] LABS: ABG Base Excess -16.8 mmol/L; ABG HCO3 11 mmol/L (21-25); ABG Oxygen Saturation 95.2 % (94-97); ABG PCO2 26 mmHg (35-45); ABG PH 7.23 (7.35-7.45); ABG PO2 77 mmHg (83-108); ABG TCO2 12 mmol/L (19-24); Allen Test Performed? Yes
[2023-07-27 23:31] LABS: Glucose,Whole Blood 112 mg/dL (70-110)
[2023-07-27] MEDS: DEXTROSE 50% SYRINGE 50 ML IVP ONE (23:35)
[2023-07-27] MEDS: SODIUM BICARB 8.4% 50 ML SYR (1 MEQ/ML) IV STA (23:36)
[2023-07-27] MEDS: SODIUM BICARB 8.4% 50 ML SYR (1 MEQ/ML) ONE (23:37)
[2023-07-28 00:04] LABS: Glucose,Whole Blood 63 mg/dL (70-110)
[2023-07-28] MEDS: DEXTROSE 50% SYRINGE 50 ML IVP STA (00:16)
--- NOTE | 2023-07-28 00:24 | PN ---
PROGRESS NOTE SUBJECTIVE: The patient is a 57-year-old white male. The patient is on Zosyn for possible infection. He was on norepinephrine in the ICU, sent to us due to severe hypotension despite 4 L of bolus. His was treated for acute pancreatitis of unclear etiology, has refractory hypotension, requiring pressors, norepinephrine for acute pancreatitis, elevated lipase and gastroenteritis, colitis, severe dehydration, poor oral intake, hyponatremia. He is quadriplegic, history of seizures. He is refractory despite 5 L of boluses. He went to ICU, placed on norepinephrine, he had bradycardia. Now heart rate is 130s. Blood pressure is up to 100 to 110 systolic. The patient feels better today he says. MEDICINES: Reviewed. ALLERGIES: Reviewed. OBJECTIVE: VITAL SIGNS: Reviewed. NEUROLOGIC: He is quadriplegic. His cranial nerves are intact. PSYCH: Giving appropriate answers. LUNGS: Decreased breath sounds. CARDIOVASCULAR: S1, S2. ABDOMEN: Soft, possibly some tenderness in the suprapubic region. EXTREMITIES: He has 2 to 3+ edema with cyanosis and abnormal toenails with severe deficiency in possibly blood flow to his legs. LABORATORY DATA: White count is up to 22,000, sodium 120 on admission, potassium 4.1. Pancreatitis, his lipase is up to 8000. His large leukocyte esterase over 182 white cells. He has UTI with sepsis, chronic indwelling catheter. He had E coli with Pseudomonas. On 06/23/2023, refractory hypotension due to septic shock and acute pancreatitis, unclear etiology. He does not drink alcohol. Has gallstones, acute gastritis, colitis, possible severe dehydration, hypovolemic, hyponatremia, sinus bradycardia, quadriplegic from a football injury, neurogenic bladder, chronic decubitus ulcers, history of seizures, elevated D-dimer, left lower extremity edema. Check venous Dopplers. GERD with esophagitis, dyslipidemia. PROGNOSIS: Extremely guarded, he is in ICU. He is on norepinephrine for hypotension. We will check his electrolytes in the morning and lipase. GI and surgery have not seen him yet emphysema, venous Dopplers of the legs are pending. Continue on vasopressors as tolerated. Continue empiric antibiotics and cultures. Prognosis guarded. MMODL / IJN: [id number] /
[2023-07-28] MEDS ORDERED: DEXTROSE 5%-0.9% NACL 1,000 ML IV SCH (00:30)
[2023-07-28] MEDS: DEXTROSE 5% IN WATER 1,000 ML IV SCH (00:31)
[2023-07-28] MEDS: DEXTROSE 5% IN WATER 1,000 ML with SODIUM BICARB (1 MEQ/ML) 150 ML IV SCH (00:38)
[2023-07-28 00:39] LABS: Glucose,Whole Blood 124 mg/dL (70-110)
[2023-07-28 05:24] LABS: Glucose,Whole Blood 79 mg/dL (70-110)
[2023-07-28 05:40] LABS: Anisocytosis Slight; HCT 41.7 % (39.0-53.0); HGB 13.4 gm/dL (13.0-17.5); MCH 26.4 pg (25.0-35.0); MCHC 32.1 g/dL (31.0-37.0); MCV 82.3 fL (80.0-100.0); Mean Platelet Volume 9.7; RBC 5.07 m/uL (4.30-5.90); RDW 16.3 % (11.5-15.5)
[2023-07-28 05:42] LABS: Platelet Count 91 k/uL (150-450)
[2023-07-28 05:54] LABS: African American GFR (CKD) >90 (>60 ml/min/1.73 sqM); Anion Gap 9 mmol/L; Blood Urea Nitrogen 34 mg/dL (9-20); Chloride 112 mmol/L (98-107); Glucose 106 mg/dL (74-99); Non-African American GFR(CKD) >90 (>60 ml/min/1.73 sqM); Potassium 3.3 mmol/L (3.5-5.1); Sodium 129 mmol/L (137-145)
[2023-07-28 06:01] LABS: Calcium 6.4 mg/dL (8.4-10.2); Carbon Dioxide 8 mmol/L (22-30)
[2023-07-28 06:18] LABS: Albumin 1.7 g/dL (3.5-5.0); Bilirubin, Delta 0.9 mg/dL (0.0-0.2); Bilirubin,Unconjugated 1.1 mg/dL (0.0-1.1); Total Protein 4.1 g/dL (6.3-8.2)
[2023-07-28] MEDS: CALCIUM GLUCONATE IN NACL 1 GM in SALINE 1 100ML.BAG IVPB ONE (06:34)
[2023-07-28] MEDS: POTASSIUM CHLORIDE ER 20 MEQ TAB.ER PO STA (06:34)
[2023-07-28 08:04] LABS: ABG HCO3 14 mmol/L (21-25); ABG Oxygen Saturation 96.6 % (94-97); ABG PCO2 25 mmHg (35-45); ABG PH 7.34 (7.35-7.45); ABG PO2 74 mmHg (83-108); ABG TCO2 15 mmol/L (19-24); Allen Test Performed? Yes
--- NOTE | 2023-07-28 08:21 | XR ---
EXAMINATION TYPE: XR chest 1V portable DATE OF EXAM: 07/28/2023 7:32 AM CLINICAL INDICATION:Male, 57 years old with history of septic shock; COMPARISON: Chest radiographs from 07/26/2023 TECHNIQUE: XR chest 1V portable Frontal view of the chest. FINDINGS: Lungs/Pleura: Consolidation changes projecting over the heart. Findings could be due to epicardial fa t. There is no evidence of pleural effusion, or pneumothorax. Pulmonary vascularity: Unremarkable. Heart/mediastinum: Cardiomediastinal silhouette is enlarged and stable. Musculoskeletal: No acute osseous pathology. IMPRESSION: Consolidation changes thought to be projecting over the heart. Findings can be confirmed with schedul ed CT chest.
--- NOTE | 2023-07-28 09:47 | P.PN ---
Subjective Progress Note Date: 07/28/23 Principal diagnosis: Bradycardia This is a very pleasant and unfortunate 57-year-old gentleman with a past medical history significant for history of quadriplegia secondary to injury related to hockey as well as history of urinary tract infection as well as multiple comorbid conditions. The patient lives at home and has a visiting nurse checking on him every other day. It was noted that he was hypotensive. He was experiencing symptoms of being tired and fatigued and has no energy and also experiencing symptoms of abdominal discomfort. He was brought to the hospital for further investigation. He was diagnosed with acute pancreatitis. Also he was diagnosed with possible UTI. He was hypotension requiring initially IV fluid with no response and subsequently he was started on norepinephrine to support his blood pressure. No symptoms of any chest pain or chest discomfort and no presyncope or syncope and no shortness of breath. We consulted to see the patient because of bradycardia. His heart rate has been in the 50s. The patient was asymptomatic with the bradycardia. No history of coronary artery disease or congestive heart failure or cardiac arrhythmia and he never seen a shift mechanic before. Further investigation performed including an EKG and that showed sinus mechanism with borderline first-degree AV block and PACs. Troponin came in to be unremarkable with the chest x-ray did not show any acute abnormalities. The blood work indicated possible acute pancreatitis and also he underwent a CT scan of the abdomen and pelvis. The patient was not on any AV jerson willi agents. No thyroid function test has performed nor echocardiogram as of yet. Examination revealed regular rhythm with a distant heart sounds and diminished breathing sounds bilaterally and atrophy of the upper and lower extremities. July 28, 2023 The patient was seen this morning. He continues to be hypotensive on vasopressors. He is not bradycardic anymore and currently he is slightly tachycardic but even that the heart rate has been coming down. The echo revealed normal LV systolic function. TSH and free T4 came in to be unremarkable. From the cardiovascular standpoint of view, I would continue the current medical regimen and continue supporting the blood pressure. Examination reveals regular rhythm with clear breathing sounds bilaterally and no edema was noted. Assessment Acute pancreatitis Possible urinary tract infection Sepsis Hypotension require vasopressors Bradycardia which has resolved Quadriplegia Multiple comorbid conditions Plan Continue current medical regimen Continue supporting the blood pressure Follow-up with the patient Objective - Vital Signs Vital signs: Vital Signs Temp 98.8 F 07/28/23 08:00 Pulse 126 H 07/28/23 08:11 Resp 27 H 07/28/23 08:00 BP 87/65 07/28/23 00:00 Pulse Ox 95 07/28/23 08:00 FiO2 Intake & Output 07/27/23 07/28/23 07/28/23 18:59 06:59 18:59 Intake Total 2120.461 2337.121 595.014 Output Total 525 525 175 Balance 0615.391 6989.121 420.014 Weight 101.06 kg Intake: IV 1835 855 Piperacillin-Tazobactam 3 175 75 .375 gm In Sodium Chloride 0.9% 100 ml @ 25 mls/hr IVPB Q8HR [facility] Rx# :[id number] Potassium Chloride 10 meq 100 In Water For Injection 1 100ml.bag @ 100 mls/hr IVPB Q1HR [facility] Rx#: [id number] Sodium Chloride 0.9% 1, 1560 780 000 ml @ 130 mls/hr IV . Q7H42M [facility] Rx#:[id number] Intake, IV Titration 671.168 9199.121 595.014 Amount Dextrose 5% in Water 1, 600 250 000 ml @ 125 mls/hr IV . Q9H12M [facility] with Sodium Bicarb (1 Meq/ml) 150 ml Rx#:[id number] Dextrose 5% in Water 1, 300 100 000 ml @ 50 mls/hr IV . Q20H [facility] Rx#:[id number] Norepinephrine 4 mg In 185.461 260.526 142.791 Sodium Chloride 0.9% 250 ml @ 0.03 MCG/KG/MIN 9. 332 mls/hr IV .Q24H [facility] Rx#:[id number] Phenylephrine 40 mg In 254.000 59.000 Sodium Chloride 0.9% 250 ml @ 0.5 MCG/KG/MIN 15. 554 mls/hr IV .[id number] [facility] Rx#:[id number] Potassium Chloride 10 meq 100 In Water For Injection 1 100ml.bag @ 100 mls/hr IVPB Q1HR [facility] Rx#: [id number] Vasopressin 20 unit In 17.595 43.223 Sodium Chloride 0.9% 50 ml @ 0.03 UNITS/MIN 4.59 mls/hr IV .Q11H7M [facility] Rx# :[id number] Oral 50 Output: Urine 525 525 175 Other: Voiding Method Indwelling Catheter Indwelling Catheter ABP, PAP, CO, CI - Last Documented Arterial Blood Pressure 87/66 - Labs CBC & Chem 7: 07/28/23 05:24 07/28/23 05:24 Labs: Abnormal Lab Results - Last 24 Hours (Table) 07/27/23 07/27/23 07/27/23 Range/Units 22:05 22:05 23:16 WBC 36.5 H (3.8-10.6) k/uL RDW 16.1 H (11.5-15.5) % Plt Count 101 L (150-450) k/uL ABG pH (7.35-7.45) ABG pCO2 (35-45) mmHg ABG pO2 (83-108) mmHg ABG HCO3 (21-25) mmol/L ABG Total CO2 (19-24) mmol/L Sodium 131 L (137-145) mmol/L Potassium (3.5-5.1) mmol/L Chloride 111 H (98-107) mmol/L Carbon Dioxide 8 L* (22-30) mmol/L BUN 38 H (9-20) mg/dL Glucose 29 L* (74-99) mg/dL POC Glucose (mg/dL) 152 H (70-110) mg/dL Calcium 6.8 L (8.4-10.2) mg/dL Total Bilirubin (0.2-1.3) mg/dL Delta Bilirubin (0.0-0.2) mg/dL Total Protein (6.3-8.2) g/dL Albumin (3.5-5.0) g/dL Lipase (23-300) U/L 07/27/23 07/27/23 07/28/23 Range/Units 23:28 23:30 00:02 WBC (3.8-10.6) k/uL RDW (11.5-15.5) % Plt Count (150-450) k/uL ABG pH 7.23 L (7.35-7.45) ABG pCO2 26 L (35-45) mmHg ABG pO2 77 L (83-108) mmHg ABG HCO3 11 L (21-25) mmol/L ABG Total CO2 12 L (19-24) mmol/L Sodium (137-145) mmol/L Potassium (3.5-5.1) mmol/L Chloride (98-107) mmol/L Carbon Dioxide (22-30) mmol/L BUN (9-20) mg/dL Glucose (74-99) mg/dL POC Glucose (mg/dL) 112 H 63 L (70-110) mg/dL Calcium (8.4-10.2) mg/dL Total Bilirubin (0.2-1.3) mg/dL Delta Bilirubin (0.0-0.2) mg/dL Total Protein (6.3-8.2) g/dL Albumin (3.5-5.0) g/dL Lipase (23-300) U/L 07/28/23 07/28/23 07/28/23 Range/Units 00:37 05:24 05:24 WBC 43.0 H (3.8-10.6) k/uL RDW 16.3 H (11.5-15.5) % Plt Count 91 L (150-450) k/uL ABG pH (7.35-7.45) ABG pCO2 (35-45) mmHg ABG pO2 (83-108) mmHg ABG HCO3 (21-25) mmol/L ABG Total CO2 (19-24) mmol/L Sodium (137-145) mmol/L Potassium (3.5-5.1) mmol/L Chloride (98-107) mmol/L Carbon Dioxide (22-30) mmol/L BUN (9-20) mg/dL Glucose (74-99) mg/dL POC Glucose (mg/dL) 124 H (70-110) mg/dL Calcium (8.4-10.2) mg/dL Total Bilirubin 2.0 H (0.2-1.3) mg/dL Delta Bilirubin 0.9 H (0.0-0.2) mg/dL Total Protein 4.1 L (6.3-8.2) g/dL Albumin 1.7 L (3.5-5.0) g/dL Lipase 7583 H (23-300) U/L 07/28/23 07/28/23 Range/Units 05:24 08:02 WBC (3.8-10.6) k/uL RDW (11.5-15.5) % Plt Count (150-450) k/uL ABG pH 7.34 L (7.35-7.45) ABG pCO2 25 L (35-45) mmHg ABG pO2 74 L (83-108) mmHg ABG HCO3 14 L (21-25) mmol/L ABG Total CO2 15 L (19-24) mmol/L Sodium 129 L (137-145) mmol/L Potassium 3.3 L (3.5-5.1) mmol/L Chloride 112 H (98-107) mmol/L Carbon Dioxide 8 L* (22-30) mmol/L BUN 34 H (9-20) mg/dL Glucose 106 H (74-99) mg/dL POC Glucose (mg/dL) (70-110) mg/dL Calcium 6.4 L* (8.4-10.2) mg/dL Total Bilirubin (0.2-1.3) mg/dL Delta Bilirubin (0.0-0.2) mg/dL Total Protein (6.3-8.2) g/dL Albumin (3.5-5.0) g/dL Lipase (23-300) U/L Microbiology - Last 24 Hours (Table) 07/26/23 11:15 Blood Culture - Preliminary Blood 07/26/23 11:00 Blood Culture - Preliminary Blood 07/26/23 12:16 Urine Culture - Preliminary Urine,Voided Gram Neg Bacilli
[2023-07-28] MEDS: polyethylene glycoL 3350 17 GM POWD.PACK PO SCH (09:48)
[2023-07-28] MEDS: DOCUSATE 283 MG/5 ML ENEMA RECTAL SCH (09:48)
--- NOTE | 2023-07-28 10:06 | XR ---
EXAMINATION TYPE: XR chest 1V portable DATE OF EXAM: 07/28/2023 Comparison: 07/28/2023, earlier today Clinical History: 57-year-old male Post line insertion Findings: The patient is slightly obliqued towards the left and rotated towards the right. This may account for the slight left and downward pointing of the right CVC, tip at the expected level of the cavoatrial junction. Heart remains borderline enlarged undergoing opacity retrocardiac region with small to mode rate effusion. Impression: 1. Slight left and downward pointing of the right CVC may be due to oblique positioning of the patien t with rightward rotation. Recommend attention on follow-up and ensure appropriate blood draws. The t ip is at the expected level of the cavoatrial junction. 2. Continued [id number] left pleural effusion with extensive opacity at the left base.
--- NOTE | 2023-07-28 11:46 | P.PN ---
Subjective Progress Note Date: 07/28/23 Principal diagnosis: Pancreatitis, hyperbilirubinemia This 57-year-old male who presented to the emergency department yesterday with complaints of nausea vomiting diarrhea and generalized weakness. He has a history of quadriplegia due to a neck injury. He has been on antibiotics for urinary tract infections had a few episodes of vomiting over the last few days. Patient had a visiting nurse and was noted to be hypotensive so he was brought to the hospital for further evaluation. Patient was also noted to be bradycardic. They admitted him to the ICU for sepsis and hypotension which she has been requiring vasopressors. He states that he has chronic constipation and has a bowel regimen. He has not had any diarrhea. He did have some nausea and vomiting. He does have a chronic Mclaughlin catheter due to being quadriplegic and was recently put on tetracycline which he finished on Monday. It was the first time he had been on this medication. Denies any previous history of pancreatitis. Denies any history of underlying liver disease. Currently denies any abdominal pain but states that he was having some lower abdominal discomfort. He states he relates it to constipation. Imaging CT abdomen pelvis with contrast reports prominent fluid distention of the stomac h and duodenum. There is also scattered fluid throughout the small bowel. Duodenum and jejunum show mucosal hyperemia. In addition there is circumferential wall thickening of the mid to distal sigmoid colon and rectum. Correlate for gastroenteritis as well as nonspecific mild to moderate distal colitis. Mclaughlin catheter present. Collapsed bladder shows wall thickening as well. Correlate to exclude cystitis. Possible mild reflux esophagitis. Atrophic bilateral kidneys but with delayed excretion may reflect acute on chronic kidney injury. Left-sided decubitus ulcer overlying the ischial tuberosity. Soft tissue thickening directly abuts the posterior left hip and left ischium no discrete osseous destruction. Probably relating to healing granulation tissue. Clinically correlate. Abdominal ultrasound reports no evidence for acute process. No evidence for obstructive uropathy. Right renal calculi. Ascites and right upper quadrant. Coarsened echotexture to the liver correlate for hepatocellular disease. Labs WBC 22 hemoglobin 13.6 hematocrit 42 platelet count 94,000 sodium 129 potassium 3.1 BUN 41 creatinine 0.7 total bilirubin 3.1 conjugated bili 0.4 unconjugated bili 2.0 AST 31 ALT 31 alkaline phosphatase 357 lipase 9628 07/28/2023 Patient seen and examined lying in bed in the ICU. He denies any abdominal pain, nausea or vomiting. States he still has not had a bowel movement since Monday. He has been afebrile. Today's labs WBC 43 hemoglobin 13.4 platelet count 91,000 sodium 129 potassium 3.3 total bilirubin 2.0 AST 38 ALT 21 alkaline phosphatase 113 lipase 7583 Objective - Vital Signs Vital signs: Vital Signs Temp 98.8 F 07/28/23 08:00 Pulse 129 H 07/28/23 11:00 Resp 26 H 07/28/23 11:00 BP 87/65 07/28/23 00:00 Pulse Ox 97 07/28/23 11:00 FiO2 Intake & Output 07/27/23 07/28/23 07/28/23 18:59 06:59 18:59 Intake Total 2120.461 2337.121 1610.005 Output Total 525 525 420 Balance 6699.683 6535.121 1190.005 Weight 101.06 kg Intake: IV 1835 855 100 Piperacillin-Tazobactam 3 175 75 100 .375 gm In Sodium Chloride 0.9% 100 ml @ 25 mls/hr IVPB Q8HR [facility] Rx# :[id number] Potassium Chloride 10 meq 100 In Water For Injection 1 100ml.bag @ 100 mls/hr IVPB Q1HR [facility] Rx#: [id number] Sodium Chloride 0.9% 1, 1560 780 000 ml @ 130 mls/hr IV . Q7H42M [facility] Rx#:[id number] Intake, IV Titration 925.340 8599.121 1270.005 Amount Dextrose 5% in Water 1, 600 625 000 ml @ 125 mls/hr IV . Q9H12M [facility] with Sodium Bicarb (1 Meq/ml) 150 ml Rx#:[id number] Dextrose 5% in Water 1, 300 250 000 ml @ 50 mls/hr IV . Q20H [facility] Rx#:[id number] Norepinephrine 4 mg In 185.461 260.526 199.303 Sodium Chloride 0.9% 250 ml @ 0.03 MCG/KG/MIN 9. 332 mls/hr IV .Q24H [facility] Rx#:[id number] Phenylephrine 40 mg In 254.000 152.479 Sodium Chloride 0.9% 250 ml @ 0.5 MCG/KG/MIN 15. 554 mls/hr IV .[id number] [facility] Rx#:[id number] Potassium Chloride 10 meq 100 In Water For Injection 1 100ml.bag @ 100 mls/hr IVPB Q1HR [facility] Rx#: [id number] Vasopressin 20 unit In 17.595 43.223 Sodium Chloride 0.9% 50 ml @ 0.03 UNITS/MIN 4.59 mls/hr IV .Q11H7M [facility] Rx# :[id number] Oral 50 240 Output: Urine 525 525 420 Other: Voiding Method Indwelling Catheter Indwelling Catheter Indwelling Catheter ABP, PAP, CO, CI - Last Documented Arterial Blood Pressure 90/65 - Exam General appearance: The patient is alert, oriented, appears in no acute d istress. HET: Head is normocephalic and atraumatic. Conjunctiva pink. Sclera anicteric. Neck: Supple without lymphadenopathy. Abdomen: Soft, nontender, nondistended. Extremities: Normal skin color and turgor. Quadriplegic. Skin: No rashes, no jaundice Neurological: No focal deficits. Alert and oriented. - Labs CBC & Chem 7: 07/28/23 05:24 07/28/23 05:24 Labs: Abnormal Lab Results - Last 24 Hours (Table) 07/27/23 07/27/23 07/27/23 Range/Units 22:05 22:05 23:16 WBC 36.5 H (3.8-10.6) k/uL RDW 16.1 H (11.5-15.5) % Plt Count 101 L (150-450) k/uL ABG pH (7.35-7.45) ABG pCO2 (35-45) mmHg ABG pO2 (83-108) mmHg ABG HCO3 (21-25) mmol/L ABG Total CO2 (19-24) mmol/L Sodium 131 L (137-145) mmol/L Potassium (3.5-5.1) mmol/L Chloride 111 H (98-107) mmol/L Carbon Dioxide 8 L* (22-30) mmol/L BUN 38 H (9-20) mg/dL Glucose 29 L* (74-99) mg/dL POC Glucose (mg/dL) 152 H (70-110) mg/dL Calcium 6.8 L (8.4-10.2) mg/dL Total Bilirubin (0.2-1.3) mg/dL Delta Bilirubin (0.0-0.2) mg/dL Total Protein (6.3-8.2) g/dL Albumin (3.5-5.0) g/dL Lipase (23-300) U/L 07/27/23 07/27/23 07/28/23 Range/Units 23:28 23:30 00:02 WBC (3.8-10.6) k/uL RDW (11.5-15.5) % Plt Count (150-450) k/uL ABG pH 7.23 L (7.35-7.45) ABG pCO2 26 L (35-45) mmHg ABG pO2 77 L (83-108) mmHg ABG HCO3 11 L (21-25) mmol/L ABG Total CO2 12 L (19-24) mmol/L Sodium (137-145) mmol/L Potassium (3.5-5.1) mmol/L Chloride (98-107) mmol/L Carbon Dioxide (22-30) mmol/L BUN (9-20) mg/dL Glucose (74-99) mg/dL POC Glucose (mg/dL) 112 H 63 L (70-110) mg/dL Calcium (8.4-10.2) mg/dL Total Bilirubin (0.2-1.3) mg/dL Delta Bilirubin (0.0-0.2) mg/dL Total Protein (6.3-8.2) g/dL Albumin (3.5-5.0) g/dL Lipase (23-300) U/L 07/28/23 07/28/23 07/28/23 Range/Units 00:37 05:24 05:24 WBC 43.0 H (3.8-10.6) k/uL RDW 16.3 H (11.5-15.5) % Plt Count 91 L (150-450) k/uL ABG pH (7.35-7.45) ABG pCO2 (35-45) mmHg ABG pO2 (83-108) mmHg ABG HCO3 (21-25) mmol/L ABG Total CO2 (19-24) mmol/L Sodium (137-145) mmol/L Potassium (3.5-5.1) mmol/L Chloride (98-107) mmol/L Carbon Dioxide (22-30) mmol/L BUN (9-20) mg/dL Glucose (74-99) mg/dL POC Glucose (mg/dL) 124 H (70-110) mg/dL Calcium (8.4-10.2) mg/dL Total Bilirubin 2.0 H (0.2-1.3) mg/dL Delta Bilirubin 0.9 H (0.0-0.2) mg/dL Total Protein 4.1 L (6.3-8.2) g/dL Albumin 1.7 L (3.5-5.0) g/dL Lipase 7583 H (23-300) U/L 07/28/23 07/28/23 Range/Units 05:24 08:02 WBC (3.8-10.6) k/uL RDW (11.5-15.5) % Plt Count (150-450) k/uL ABG pH 7.34 L (7.35-7.45) ABG pCO2 25 L (35-45) mmHg ABG pO2 74 L (83-108) mmHg ABG HCO3 14 L (21-25) mmol/L ABG Total CO2 15 L (19-24) mmol/L Sodium 129 L (137-145) mmol/L Potassium 3.3 L (3.5-5.1) mmol/L Chloride 112 H (98-107) mmol/L Carbon Dioxide 8 L* (22-30) mmol/L BUN 34 H (9-20) mg/dL Glucose 106 H (74-99) mg/dL POC Glucose (mg/dL) (70-110) mg/dL Calcium 6.4 L* (8.4-10.2) mg/dL Total Bilirubin (0.2-1.3) mg/dL Delta Bilirubin (0.0-0.2) mg/dL Total Protein (6.3-8.2) g/dL Albumin (3.5-5.0) g/dL Lipase (23-300) U/L Microbiology - Last 24 Hours (Table) 07/26/23 11:15 Blood Culture - Preliminary Blood 07/26/23 11:00 Blood Culture - Preliminary Blood 07/26/23 12:16 Urine Culture - Preliminary Urine,Voided Gram Neg Bacilli Assessment and Plan (1) Hyperbilirubinemia Narrative/Plan: 57-year-old male presenting with nausea vomiting for last few days duration. Recently treated for urinary tract infection and has chronic indwelling Mclaughlin due to quadriplegia. CT abdomen pelvis bowel loops fluid-filled consistent with gastroenteritis versus nonspecific colitis. Patient noted to have elevated bilirubin on admission. Gallbladder ultrasound shows increased coarsened echotexture of the liver as well as some upper quadrant ascites. Questionable underlying liver disease. Patient also noted to have elevated lipase consistent with pancreatitis. Reviewing patient's labs he has had elevated bilirubin in the past without elevation of LFTs as he does now. Fractionated bilirubin is mostly unconjugated. patient may likely have Gilbert's syndrome. Current Visit: Yes Status: Acute Code(s): E80.6 - OTHER DISORDERS OF B ILIRUBIN METABOLISM SNOMED Code(s): 87465660 (2) Pancreatitis Narrative/Plan: Pancreatitis possibly medication induced as patient has been on frequent antibiotics, with the last 1 being tetracycline which she has not been on in the past. He did finish it up on Monday. Will continue to trend lipase, there is no evidence of any biliary obstruction on imaging. Current Visit: Yes Status: Acute Code(s): K85.90 - ACUTE PANCREATITIS WITHOUT NECROSIS OR INFECTION, UNSP SNOMED Code(s): 62402760 (3) Quadriplegia Current Visit: Yes Status: Acute Code(s): G82.50 - QUADRIPLEGIA, UNSPECIFIED SNOMED Code(s): 86399736 (4) Hypotension Current Visit: Yes Status: Acute Code(s): I95.9 - HYPOTENSION, UNSPECIFIED SNOMED Code(s): 56276032 (5) Hyponatremia Current Visit: Yes Status: Acute Code(s): E87.1 - HYPO-OSMOLALITY AND HYPONATREMIA SNOMED Code(s): 36290046 (6) Hypokalemia Current Visit: No Status: Acute Code(s): E87.6 - HYPOKALEMIA SNOMED Co de(s): 01187112 (7) Leukocytosis Current Visit: Yes Status: Acute Code(s): D72.829 - ELEVATED WHITE BLOOD CELL COUNT, UNSPECIFIED SNOMED Code(s): 448839859 (8) Constipation Current Visit: Yes Status: Acute Code(s): K59.00 - CONSTIPATION, UNSPECIFIED SNOMED Code(s): 21745440 Plan: 1. Continue symptomatic and supportive care 2. Bilirubin fractionated, mostly unconjugated. Hyperbilirubinemia likely secondary to Gilbert's syndrome. no further workup planned at this time. 3. No plans at this time for any endoscopic evaluation 4. Patient's bowel regimen resumed by general surgery. Changed suppository to daily and added MiraLAX daily 5. Replace electrolytes per protocol 6. Diet as tolerated 7. Continue to trend lipase 8. The rest of medical management per primary medical team Thank you for allowing us to participate in the care of the patient, the GI service will sign off, gastroenterology will not be available at the hospital this weekend and through next week. If further evaluation by gastroenterology is required the patient will need transfer as per the primary team's discretion. Dr. Leticia Stanley I agree with the dictator's note, documented as a scribe by Carola Tucker.
--- NOTE | 2023-07-28 13:14 | CDI ---
Documentation Clarification Form Date: 07/28/2023 12:56:48 PM From: Nimo Zaragoza RN CCDS Phone: [phone] Admit Date: 07/26/2023 01:57:00 PM Patient Name: Og Grant Visit Number: [id number] Discharge Date: ATTENTION: The Clinical Documentation Specialists (CDI) and [facility] Coding Staff appreciate your assistance in clarifying documentation. Please respond to the clarification below the line at the bottom and electronically sign. The CDI & [facility] Coding staff will review the response and follow-up if needed. Please note: Queries are made part of the Legal Health Record. If you have any questions, please contact the author of this message via ITS. Dr. Magdiel Salinas UTI is documented 07/26, Medicine note and patient has indwelling davis catheter. Additional clarification regarding the etiology of the UTI is requested. History/Risk Factors: 57-year-old male presents to the ED with weakness and generalized weakness. Medical history: UTIs, Davis catheter, Quadriplegia due to neck injury, HLD, Gerd and Decubitus ulcers. 07/25, ED note. Clinical Indicators: Urinalysis, 07/25: Turbid, Trace blood, Large leukocyte esterase, Wbc >182 Urine culture, 07/25: Gram Negative Bacilli Lab results, 07/25: Wbc 15.2; Neutrophils 13.6 Treatment: 07/25 Vancomycin 1,500mg IVPB x 1; 07/25 Zosyn 3.375gm IVPB x 1; 07/25 Zosyn 3.375gm IVPB Q8H; 07/25 New davis catheter Please clarify the etiology of the UTI, if known: [ ] Davis catheter [ ] UTI not related to catheter/urostomy [ ] Other condition, please specify [ ] Unable to determine (Template Last Revised: June 2020) MTDD
--- NOTE | 2023-07-28 13:30 | OP ---
OPERATIVE REPORT DATE OF SERVICE : PROCEDURE: Placement of right IJ central line. PREOPERATIVE DIAGNOSIS: Septic shock and hypotension requiring multiple pressors. POSTOPERATIVE DIAGNOSIS: Septic shock and hypotension requiring multiple pressors. ANESTHESIA USED: 2 mL of 1% lidocaine. DESCRIPTION OF PROCEDURE: The patient was placed in a Trendelenburg position, the area of the cervical region was prepared in a sterile fashion and drapes were applied. The area behind the posterior belly of the sternocleidomastoid was locally anesthetized. Then using the posterior approach, the right internal jugular vein was easily cannulated, a guidewire was placed, and the area around the guidewire was dilated. Then a triple-lumen catheter was inserted over the guidewire, and the guidewire was removed. Good blood flow noted in the 3 different ports of the triple-lumen catheter. Line was secured using 3.0 silk sutures. The followup chest x-ray showed adequate placement and no complications. MMODL / IJN: [id number] /
[2023-07-28] MEDS: MEROPENEM 1 GM in SODIUM CHLORIDE 0.9% 100 ML IVPB SCH (13:34)
--- NOTE | 2023-07-28 13:37 | P.PN ---
Subjective Progress Note Date: 07/28/23 CHIEF COMPLAINT: Abdominal pain HISTORY OF PRESENT ILLNESS: Patient remains in the ICU. Patient reports improvement of abdominal pain. He denies any nausea or vomiting. He is tolerating the clear liquids. Afebrile. He has been tachycardic. Hypotensive. WBC is up from 36.5-43. Lipase is down from 9884-5026. LFTs are normal. PHYSICAL EXAM: VITAL SIGNS: Reviewed. GENERAL: Well-developed in no acute distress. ABDOMEN: Soft. Nondistended. Nontender. NEUROLOGIC: Alert and oriented ASSESSMENT: 1. Acute pancreatitis improving. Possibly medication induced. Patient seen by GI service. No gallstones noted on ultrasound 2. UTI with sepsis 3. Hyperbilirubinemia PLAN: -No surgical intervention planned -Continue to monitor -Diet per GI service -Antibiotics per infectious disease -Continue ICU management -Continue supportive care Physician [employer] Train[employer] note has been reviewed by physician. Signing provider agrees with the documented findings, assessment, and plan of care. Objective - Vital Signs Vital signs: Vital Signs Temp 98.8 F 07/28/23 08:00 Pulse 129 H 07/28/23 11:00 Resp 26 H 07/28/23 11:00 BP 87/65 07/28/23 00:00 Pulse Ox 97 07/28/23 11:00 FiO2 Intake & Output 07/27/23 07/28/23 07/28/23 18:59 06:59 18:59 Intake Total 2120.461 2337.121 1610.005 Output Total 525 525 420 Balance 6458.797 5348.121 1190.005 Weight 101.06 kg Intake: IV 1835 855 100 Piperacillin-Tazobactam 3 175 75 100 .375 gm In Sodium Chloride 0.9% 100 ml @ 25 mls/hr IVPB Q8HR [facility] Rx# :[id number] Potassium Chloride 10 meq 100 In Water For Injection 1 100ml.bag @ 100 mls/hr IVPB Q1HR [facility] Rx#: [id number] Sodium Chloride 0.9% 1, 1560 780 000 ml @ 130 mls/hr IV . Q7H42M [facility] Rx#:[id number] Intake, IV Titration 329.718 9091.121 1270.005 Amount Dextrose 5% in Water 1, 600 625 000 ml @ 125 mls/hr IV . Q9H12M [facility] with Sodium Bicarb (1 Meq/ml) 150 ml Rx#:[id number] Dextrose 5% in Water 1, 300 250 000 ml @ 50 mls/hr IV . Q20H [facility] Rx#:[id number] Norepinephrine 4 mg In 185.461 260.526 199.303 Sodium Chloride 0.9% 250 ml @ 0.03 MCG/KG/MIN 9. 332 mls/hr IV .Q24H [facility] Rx#:[id number] Phenylephrine 40 mg In 254.000 152.479 Sodium Chloride 0.9% 250 ml @ 0.5 MCG/KG/MIN 15. 554 mls/hr IV .[id number] [facility] Rx#:[id number] Potassium Chloride 10 meq 100 In Water For Injection 1 100ml.bag @ 100 mls/hr IVPB Q1HR [facility] Rx#: [id number] Vasopressin 20 unit In 17.595 43.223 Sodium Chloride 0.9% 50 ml @ 0.03 UNITS/MIN 4.59 mls/hr IV .Q11H7M [facility] Rx# :[id number] Oral 50 240 Output: Urine 525 525 420 Other: Voiding Method Indwelling Catheter Indwelling Catheter Indwelling Catheter ABP, PAP, CO, CI - Last Documented Arterial Blood Pressure 90/65 - Labs CBC & Chem 7: 07/28/23 05:24 07/28/23 05:24 Labs: Abnormal Lab Results - Last 24 Hours (Table) 07/27/23 07/27/23 07/27/23 Range/Units 22:05 22:05 23:16 WBC 36.5 H (3.8-10.6) k/uL RDW 16.1 H (11.5-15.5) % Plt Count 101 L (150-450) k/uL ABG pH (7.35-7.45) ABG pCO2 (35-45) mmHg ABG pO2 (83-108) mmHg ABG HCO3 (21-25) mmol/L ABG Total CO2 (19-24) mmol/L Sodium 131 L (137-145) mmol/L Potassium (3.5-5.1) mmol/L Chloride 111 H (98-107) mmol/L Carbon Dioxide 8 L* (22-30) mmol/L BUN 38 H (9-20) mg/dL Glucose 29 L* (74-99) mg/dL POC Glucose (mg/dL) 152 H (70-110) mg/dL Calcium 6.8 L (8.4-10.2) mg/dL Total Bilirubin (0.2-1.3) mg/dL Delta Bilirubin (0.0-0.2) mg/dL Total Protein (6.3-8.2) g/dL Albumin (3.5-5.0) g/dL Lipase (23-300) U/L 07/27/23 07/27/23 07/28/23 Range/Units 23:28 23:30 00:02 WBC (3.8-10.6) k/uL RDW (11.5-15.5) % Plt Count (150-450) k/uL ABG pH 7.23 L (7.35-7.45) ABG pCO2 26 L (35-45) mmHg ABG pO2 77 L (83-108) mmHg ABG HCO3 11 L (21-25) mmol/L ABG Total CO2 12 L (19-24) mmol/L Sodium (137-145) mmol/L Potassium (3.5-5.1) mmol/L Chloride (98-107) mmol/L Carbon Dioxide (22-30) mmol/L BUN (9-20) mg/dL Glucose (74-99) mg/dL POC Glucose (mg/dL) 112 H 63 L (70-110) mg/dL Calcium (8.4-10.2) mg/dL Total Bilirubin (0.2-1.3) mg/dL Delta Bilirubin (0.0-0.2) mg/dL Total Protein (6.3-8.2) g/dL Albumin (3.5-5.0) g/dL Lipase (23-300) U/L 07/28/23 07/28/23 07/28/23 Range/Units 00:37 05:24 05:24 WBC 43.0 H (3.8-10.6) k/uL RDW 16.3 H (11.5-15.5) % Plt Count 91 L (150-450) k/uL ABG pH (7.35-7.45) ABG pCO2 (35-45) mmHg ABG pO2 (83-108) mmHg ABG HCO3 (21-25) mmol/L ABG Total CO2 (19-24) mmol/L Sodium (137-145) mmol/L Potassium (3.5-5.1) mmol/L Chloride (98-107) mmol/L Carbon Dioxide (22-30) mmol/L BUN (9-20) mg/dL Glucose (74-99) mg/dL POC Glucose (mg/dL) 124 H (70-110) mg/dL Calcium (8.4-10.2) mg/dL Total Bilirubin 2.0 H (0.2-1.3) mg/dL Delta Bilirubin 0.9 H (0.0-0.2) mg/dL Total Protein 4.1 L (6.3-8.2) g/dL Albumin 1.7 L (3.5-5.0) g/dL Lipase 7583 H (23-300) U/L 07/28/23 07/28/23 Range/Units 05:24 08:02 WBC (3.8-10.6) k/uL RDW (11.5-15.5) % Plt Count (150-450) k/uL ABG pH 7.34 L (7.35-7.45) ABG pCO2 25 L (35-45) mmHg ABG pO2 74 L (83-108) mmHg ABG HCO3 14 L (21-25) mmol/L ABG Total CO2 15 L (19-24) mmol/L Sodium 129 L (137-145) mmol/L Potassium 3.3 L (3.5-5.1) mmol/L Chloride 112 H (98-107) mmol/L Carbon Dioxide 8 L* (22-30) mmol/L BUN 34 H (9-20) mg/dL Glucose 106 H (74-99) mg/dL POC Glucose (mg/dL) (70-110) mg/dL Calcium 6.4 L* (8.4-10.2) mg/dL Total Bilirubin (0.2-1.3) mg/dL Delta Bilirubin (0.0-0.2) mg/dL Total Protein (6.3-8.2) g/dL Albumin (3.5-5.0) g/dL Lipase (23-300) U/L Microbiology - Last 24 Hours (Table) 07/26/23 11:15 Blood Culture - Preliminary Blood 07/26/23 11:00 Blood Culture - Preliminary Blood 07/26/23 12:16 Urine Culture - Preliminary Urine,Voided Gram Neg Bacilli
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
[2023-07-28 14:08] LABS: Glucose,Whole Blood 107 mg/dL (70-110)
--- NOTE | 2023-07-28 14:44 | P.PN ---
Subjective Progress Note Date: 07/28/23 * 57-year-old male who presented to the emergency department with complaints of nausea vomiting diarrhea and generalized weakness. 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 Patient had a visiting nurse and was noted to be hypotensive so he was brought to the hospital for further evaluation. Patient was also noted to be bradycardic. They admitted him to the ICU for sepsis and hypotension which she has been requiring vasopressors. He states that he has chronic constipation and has a bowel regimen. Imaging CT abdomen pelvis with contrast reports prominent fluid distention of the stomach and duodenum. There is also scattered fluid throughout the small bowel. Duodenum and jejunum show mucosal hyperemia. In addition there is circumferential wall thickening of the mid to distal sigmoid colon and rectum. Correlate for gastroenteritis as well as nonspecific mild to moderate distal colitis. Mclaughlin catheter present. Collapsed bladder shows wall thickening as well. Correlate to exclude cystitis. Possible mild reflux esophagitis. Atrophic bilateral kidneys but with delayed excretion may reflect acute on chronic kidney injury. Left-sided decubitus ulcer overlying the ischial tuberosity. Soft tissue thickening directly abuts the posterior left hip and left ischium no discrete osseous destruction. Probably relating to healing granulation tissue. Clinically correlate. * Abdominal ultrasound reports no evidence for acute process. No evidence for obstructive uropathy. Right renal calculi. Ascites and right upper quadrant. Coarsened echotexture to the liver correlate for hepatocellular disease. * Labs WBC 22 hemoglobin 13.6 hematocrit 42 platelet count 94,000 sodium 129 potassium 3.1 BUN 41 creatinine 0.7 total bilirubin 3.1 conjugated bili 0.4 unconjugated bili 2.0 AST 31 ALT 31 alkaline phosphatase 357 lipase 9628 * 07/28/23 : PHYSICAL EXAMINATION: GENERAL: The patient is alert and oriented x3, ill appearance HEENT: Pupils are round and equally reacting to light. EOMI. No conjunctival pallor. Normocephalic, atraumatic. No pharyngeal erythema. No thyromegaly. CARDIOVASCULAR: S1 and S2 present. No murmurs, rubs, or gallops. PULMONARY: Chest is clear to auscultation, no wheezing or crackles. ABDOMEN: Soft, nontender, nondistended, normoactive bowel sounds. No palpable organomegaly. MUSCULOSKELETAL: No joint swelling or deformity. EXTREMITIES: pedal edema. NEUROLOGICAL: Gross neurological examination did not reveal any focal deficits. SKIN: No rashes. Assessment and plan * Septic shock with urinary tract infection * Acute pancreatitis * Stage III pressure ulcer left buttock, stage II pressure ulcer right hip * History of quadriplegia with indwelling Mclaughlin catheter in place * To [place] acidosis secondary to sepsis * Hyponatremia * history of seizure disorder * In regards to septic shock, continue patient on resuscitation, patient on pressor support, arterial line in place managed by medical ICU. Continue to monitor intake and output blood cultures collected urine cultures collected continue broad-spectrum antibiotic receiving IV Zosyn infectious disease on consult * In regards to pancreatitis continue fluid resuscitation follow-up on lipase levels, CT abdomen pelvis reviewed * In regards to pressure ulcer, patient seen by wound care team * # History of seizure disorder continue patient on Keppra * Patient on heparin for DVT prophylaxis CODE STATUS full code * Remains critically ill secondary to underlying comorbidities Objective - Vital Signs Vital signs: Vital Signs Temp 98.8 F 07/28/23 08:00 Pulse 126 H 07/28/23 08:11 Resp 27 H 07/28/23 08:00 BP 87/65 07/28/23 00:00 Pulse Ox 95 07/28/23 08:00 FiO2 Intake & Output 07/27/23 07/28/23 07/28/23 18:59 06:59 18:59 Intake Total 2120.461 2337.121 536.014 Output Total 525 525 175 Balance 7687.357 5107.121 361.014 Weight 101.06 kg Intake: IV 1835 855 Piperacillin-Tazobactam 3 175 75 .375 gm In Sodium Chloride 0.9% 100 ml @ 25 mls/hr IVPB Q8HR [facility] Rx# :[id number] Potassium Chloride 10 meq 100 In Water For Injection 1 100ml.bag @ 100 mls/hr IVPB Q1HR [facility] Rx#: [id number] Sodium Chloride 0.9% 1, 1560 780 000 ml @ 130 mls/hr IV . Q7H42M [facility] Rx#:[id number] Intake, IV Titration 434.431 6334.121 536.014 Amount Dextrose 5% in Water 1, 600 250 000 ml @ 125 mls/hr IV . Q9H12M [facility] with Sodium Bicarb (1 Meq/ml) 150 ml Rx#:[id number] Dextrose 5% in Water 1, 300 100 000 ml @ 50 mls/hr IV . Q20H [facility] Rx#:[id number] Norepinephrine 4 mg In 185.461 260.526 142.791 Sodium Chloride 0.9% 250 ml @ 0.03 MCG/KG/MIN 9. 332 mls/hr IV .Q24H [facility] Rx#:[id number] Phenylephrine 40 mg In 254.000 Sodium Chloride 0.9% 250 ml @ 0.5 MCG/KG/MIN 15. 554 mls/hr IV .[id number] [facility] Rx#:[id number] Potassium Chloride 10 meq 100 In Water For Injection 1 100ml.bag @ 100 mls/hr IVPB Q1HR [facility] Rx#: [id number] Vasopressin 20 unit In 17.595 43.223 Sodium Chloride 0.9% 50 ml @ 0.03 UNITS/MIN 4.59 mls/hr IV .Q11H7M [facility] Rx# :[id number] Oral 50 Output: Urine 525 525 175 Other: Voiding Method Indwelling Catheter Indwelling Catheter ABP, PAP, CO, CI - Last Documented Arterial Blood Pressure 87/66 - Labs CBC & Chem 7: 07/28/23 05:24 07/28/23 05:24 Labs: Abnormal Lab Results - Last 24 Hours (Table) 07/27/23 07/27/23 07/27/23 Range/Units 04:10 22:05 22:05 WBC 36.5 H (3.8-10.6) k/uL RDW 16.1 H (11.5-15.5) % Plt Count 101 L (150-450) k/uL ABG pH (7.35-7.45) ABG pCO2 (35-45) mmHg ABG pO2 (83-108) mmHg ABG HCO3 (21-25) mmol/L ABG Total CO2 (19-24) mmol/L Sodium 131 L (137-145) mmol/L Potassium (3.5-5.1) mmol/L Chloride 111 H (98-107) mmol/L Carbon Dioxide 8 L* (22-30) mmol/L BUN 38 H (9-20) mg/dL Glucose 29 L* (74-99) mg/dL POC Glucose (mg/dL) (70-110) mg/dL Calcium 6.8 L (8.4-10.2) mg/dL Total Bilirubin 3.1 H (0.2-1.3) mg/dL Conjugated Bilirubin 0.4 H (0.0-0.3) mg/dL Unconjugated Bilirubin 2.0 H (0.0-1.1) mg/dL Delta Bilirubin 0.7 H (0.0-0.2) mg/dL Total Protein (6.3-8.2) g/dL Albumin (3.5-5.0) g/dL Lipase (23-300) U/L 07/27/23 07/27/23 07/27/23 Range/Units 23:16 23:28 23:30 WBC (3.8-10.6) k/uL RDW (11.5-15.5) % Plt Count (150-450) k/uL ABG pH 7.23 L (7.35-7.45) ABG pCO2 26 L (35-45) mmHg ABG pO2 77 L (83-108) mmHg ABG HCO3 11 L (21-25) mmol/L ABG Total CO2 12 L (19-24) mmol/L Sodium (137-145) mmol/L Potassium (3.5-5.1) mmol/L Chloride (98-107) mmol/L Carbon Dioxide (22-30) mmol/L BUN (9-20) mg/dL Glucose (74-99) mg/dL POC Glucose (mg/dL) 152 H 112 H (70-110) mg/dL Calcium (8.4-10.2) mg/dL Total Bilirubin (0.2-1.3) mg/dL Conjugated Bilirubin (0.0-0.3) mg/dL Unconjugated Bilirubin (0.0-1.1) mg/dL Delta Bilirubin (0.0-0.2) mg/dL Total Protein (6.3-8.2) g/dL Albumin (3.5-5.0) g/dL Lipase (23-300) U/L 07/28/23 07/28/23 07/28/23 Range/Units 00:02 00:37 05:24 WBC (3.8-10.6) k/uL RDW (11.5-15.5) % Plt Count (150-450) k/uL ABG pH (7.35-7.45) ABG pCO2 (35-45) mmHg ABG pO2 (83-108) mmHg ABG HCO3 (21-25) mmol/L ABG Total CO2 (19-24) mmol/L Sodium (137-145) mmol/L Potassium (3.5-5.1) mmol/L Chloride (98-107) mmol/L Carbon Dioxide (22-30) mmol/L BUN (9-20) mg/dL Glucose (74-99) mg/dL POC Glucose (mg/dL) 63 L 124 H (70-110) mg/dL Calcium (8.4-10.2) mg/dL Total Bilirubin 2.0 H (0.2-1.3) mg/dL Conjugated Bilirubin (0.0-0.3) mg/dL Unconjugated Bilirubin (0.0-1.1) mg/dL Delta Bilirubin 0.9 H (0.0-0.2) mg/dL Total Protein 4.1 L (6.3-8.2) g/dL Albumin 1.7 L (3.5-5.0) g/dL Lipase 7583 H (23-300) U/L 07/28/23 07/28/23 07/28/23 Range/Units 05:24 05:24 08:02 WBC 43.0 H (3.8-10.6) k/uL RDW 16.3 H (11.5-15.5) % Plt Count 91 L (150-450) k/uL ABG pH 7.34 L (7.35-7.45) ABG pCO2 25 L (35-45) mmHg ABG pO2 74 L (83-108) mmHg ABG HCO3 14 L (21-25) mmol/L ABG Total CO2 15 L (19-24) mmol/L Sodium 129 L (137-145) mmol/L Potassium 3.3 L (3.5-5.1) mmol/L Chloride 112 H (98-107) mmol/L Carbon Dioxide 8 L* (22-30) mmol/L BUN 34 H (9-20) mg/dL Glucose 106 H (74-99) mg/dL POC Glucose (mg/dL) (70-110) mg/dL Calcium 6.4 L* (8.4-10.2) mg/dL Total Bilirubin (0.2-1.3) mg/dL Conjugated Bilirubin (0.0-0.3) mg/dL Unconjugated Bilirubin (0.0-1.1) mg/dL Delta Bilirubin (0.0-0.2) mg/dL Total Protein (6.3-8.2) g/dL Albumin (3.5-5.0) g/dL Lipase (23-300) U/L Microbiology - Last 24 Hours (Table) 07/26/23 11:15 Blood Culture - Preliminary Blood 07/26/23 11:00 Blood Culture - Preliminary Blood 07/26/23 12:16 Urine Culture - Preliminary Urine,Voided Gram Neg Bacilli
[2023-07-28] MEDS: ACETAMINOPHEN TAB 325 MG TAB PO PRN (14:52)
--- NOTE | 2023-07-28 14:55 | P.PN ---
Subjective Progress Note Date: 07/28/23 Principal diagnosis: Reason for follow-up is UTI and sepsis Patient is a 57-year-old male past medical history significant for quadriplegia from an injury back in 1994 did have history of seizure disorder pneumonia hyperlipidemia reflux and recurrent UTI, recently treated for UTI in the outpatient setting with doxycycline presented to hospital with weakness dry heaves did have a positive UA concerning for symptomatic urinary tract infection was hypotensive requiring admission to ICU On today's evaluation that is 07/28/2023,the patient denies any fever or any chills, patient is breathing comfortably on room air, the patient denies chest pain shortness of breath and no significant cough, patient dry heaves and nausea has improved still requiring significant amount of pressor support per the nursing staff. Patient white count is up to 43,000, creatinine 0.89 urine is growing gram- negative blood culture has been negative so far abdominal ultrasound no evidence of obstructive uropathy Objective - Vital Signs Vital signs: Vital Signs Temp 98.8 F 07/28/23 08:00 Pulse 122 H 07/28/23 14:45 Resp 25 H 07/28/23 14:45 BP 92/43 07/28/23 12:15 Pulse Ox 100 07/28/23 14:45 FiO2 Intake & Output 07/27/23 07/28/23 07/28/23 18:59 06:59 18:59 Intake Total 2120.461 2337.121 2600.651 Output Total 525 525 540 Balance 3215.749 7460.121 2060.651 Weight 101.06 kg 101.06 kg Intake: IV 1835 855 100 Piperacillin-Tazobactam 3 175 75 100 .375 gm In Sodium Chloride 0.9% 100 ml @ 25 mls/hr IVPB Q8HR [facility] Rx# :[id number] Potassium Chloride 10 meq 100 In Water For Injection 1 100ml.bag @ 100 mls/hr IVPB Q1HR [facility] Rx#: [id number] Sodium Chloride 0.9% 1, 1560 780 000 ml @ 130 mls/hr IV . Q7H42M [facility] Rx#:[id number] Intake, IV Titration 788.174 1342.121 2260.651 Amount Dextrose 5% in Water 1, 600 625 000 ml @ 125 mls/hr IV . Q9H12M [facility] with Sodium Bicarb (1 Meq/ml) 150 ml Rx#:[id number] Dextrose 5% in Water 1, 300 350 000 ml @ 50 mls/hr IV . Q20H [facility] Rx#:[id number] Dextrose 5%-0.9% NaCl 1, 250 000 ml @ 50 mls/hr IV . Q20H [facility] Rx#:[id number] Meropenem 1 gm In Sodium 200 Chloride 0.9% 100 ml @ 33 .3 mls/hr IVPB Q8HR [facility] Rx#:[id number] Norepinephrine 4 mg In 185.461 260.526 289.982 Sodium Chloride 0.9% 250 ml @ 0.03 MCG/KG/MIN 9. 332 mls/hr IV .Q24H [facility] Rx#:[id number] Phenylephrine 40 mg In 254.000 502.446 Sodium Chloride 0.9% 250 ml @ 0.5 MCG/KG/MIN 15. 554 mls/hr IV .[id number] [facility] Rx#:[id number] Potassium Chloride 10 meq 100 In Water For Injection 1 100ml.bag @ 100 mls/hr IVPB Q1HR [facility] Rx#: [id number] Vasopressin 20 unit In 17.595 43.223 Sodium Chloride 0.9% 50 ml @ 0.03 UNITS/MIN 4.59 mls/hr IV .Q11H7M [facility] Rx# :[id number] Oral 50 240 Output: Urine 525 525 540 Other: Voiding Method Indwelling Catheter Indwelling Catheter Indwelling Catheter ABP, PAP, CO, CI - Last Documented Arterial Blood Pressure 84/56 - Exam GENERAL DESCRIPTION: Middle-age male lying in bed in no distress RESPIRATORY SYSTEM: Unlabored breathing , decreased breath sounds at bases HEART: S1 S2 regular rate and rhythm , ABDOMEN: Soft , no tenderness EXTREMITIES: No edema feet - Labs CBC & Chem 7: 07/28/23 05:24 07/28/23 05:24 Labs: Abnormal Lab Results - Last 24 Hours (Table) 07/27/23 07/27/23 07/27/23 Range/Units 22:05 22:05 23:16 WBC 36.5 H (3.8-10.6) k/uL RDW 16.1 H (11.5-15.5) % Plt Count 101 L (150-450) k/uL ABG pH (7.35-7.45) ABG pCO2 (35-45) mmHg ABG pO2 (83-108) mmHg ABG HCO3 (21-25) mmol/L ABG Total CO2 (19-24) mmol/L Sodium 131 L (137-145) mmol/L Potassium (3.5-5.1) mmol/L Chloride 111 H (98-107) mmol/L Carbon Dioxide 8 L* (22-30) mmol/L BUN 38 H (9-20) mg/dL Glucose 29 L* (74-99) mg/dL POC Glucose (mg/dL) 152 H (70-110) mg/dL Calcium 6.8 L (8.4-10.2) mg/dL Total Bilirubin (0.2-1.3) mg/dL Delta Bilirubin (0.0-0.2) mg/dL Total Protein (6.3-8.2) g/dL Albumin (3.5-5.0) g/dL Lipase (23-300) U/L 07/27/23 07/27/23 07/28/23 Range/Units 23:28 23:30 00:02 WBC (3.8-10.6) k/uL RDW (11.5-15.5) % Plt Count (150-450) k/uL ABG pH 7.23 L (7.35-7.45) ABG pCO2 26 L (35-45) mmHg ABG pO2 77 L (83-108) mmHg ABG HCO3 11 L (21-25) mmol/L ABG Total CO2 12 L (19-24) mmol/L Sodium (137-145) mmol/L Potassium (3.5-5.1) mmol/L Chloride (98-107) mmol/L Carbon Dioxide (22-30) mmol/L BUN (9-20) mg/dL Glucose (74-99) mg/dL POC Glucose (mg/dL) 112 H 63 L (70-110) mg/dL Calcium (8.4-10.2) mg/dL Total Bilirubin (0.2-1.3) mg/dL Delta Bilirubin (0.0-0.2) mg/dL Total Protein (6.3-8.2) g/dL Albumin (3.5-5.0) g/dL Lipase (23-300) U/L 07/28/23 07/28/23 07/28/23 Range/Units 00:37 05:24 05:24 WBC 43.0 H (3.8-10.6) k/uL RDW 16.3 H (11.5-15.5) % Plt Count 91 L (150-450) k/uL ABG pH (7.35-7.45) ABG pCO2 (35-45) mmHg ABG pO2 (83-108) mmHg ABG HCO3 (21-25) mmol/L ABG Total CO2 (19-24) mmol/L Sodium (137-145) mmol/L Potassium (3.5-5.1) mmol/L Chloride (98-107) mmol/L Carbon Dioxide (22-30) mmol/L BUN (9-20) mg/dL Glucose (74-99) mg/dL POC Glucose (mg/dL) 124 H (70-110) mg/dL Calcium (8.4-10.2) mg/dL Total Bilirubin 2.0 H (0.2-1.3) mg/dL Delta Bilirubin 0.9 H (0.0-0.2) mg/dL Total Protein 4.1 L (6.3-8.2) g/dL Albumin 1.7 L (3.5-5.0) g/dL Lipase 7583 H (23-300) U/L 07/28/23 07/28/23 Range/Units 05:24 08:02 WBC (3.8-10.6) k/uL RDW (11.5-15.5) % Plt Count (150-450) k/uL ABG pH 7.34 L (7.35-7.45) ABG pCO2 25 L (35-45) mmHg ABG pO2 74 L (83-108) mmHg ABG HCO3 14 L (21-25) mmol/L ABG Total CO2 15 L (19-24) mmol/L Sodium 129 L (137-145) mmol/L Potassium 3.3 L (3.5-5.1) mmol/L Chloride 112 H (98-107) mmol/L Carbon Dioxide 8 L* (22-30) mmol/L BUN 34 H (9-20) mg/dL Glucose 106 H (74-99) mg/dL POC Glucose (mg/dL) (70-110) mg/dL Calcium 6.4 L* (8.4-10.2) mg/dL Total Bilirubin (0.2-1.3) mg/dL Delta Bilirubin (0.0-0.2) mg/dL Total Protein (6.3-8.2) g/dL Albumin (3.5-5.0) g/dL Lipase (23-300) U/L Microbiology - Last 24 Hours (Table) 07/26/23 11:15 Blood Culture - Preliminary Blood 07/26/23 11:00 Blood Culture - Preliminary Blood 07/26/23 12:16 Urine Culture - Preliminary Urine,Voided Gram Neg Bacilli Assessment and Plan (1) Leukocytosis Current Visit: Yes Status: Acute Code(s): D72.829 - ELEVATED WHITE BLOOD CELL COUNT, UNSPECIFIED SNOMED Code(s): 892024045 (2) Sepsis Current Visit: Yes Status: Acute Code(s): A41.9 - SEPSIS, UNSPECIFIED ORGANISM SNOMED Code(s): 03395716 (3) UTI (urinary tract infection) Current Visit: Yes Status: Acute Code(s): N39.0 - URINARY TRACT INFECTION, SITE NOT SPECIFIED SNOMED Code(s): 12466315 Plan: 1patient presented hospitalized weakness episode of nausea vomiting positive UA concerning for catheter assisted UTI failing outpatient oral doxycycline therapy 2-sulfa allergy 3-patient did have elevated liver enzymes ultrasound was negative for acute process General surgery is following the patient 4-patient did have worsening of the white count is still requiring high-dose pressor support urine is growing gram-negative with question of ESBL we will discontinue Zosyn and start the patient on meropenem and monitor clinical course closely Family at the bedside question answered Dictation was produced using [employer] dictation software. please excuse any grammatical, word or spelling errors. Time with Patient: Less than 30
[2023-07-28] MEDS: HYDROCORTISONE SUCCINATE 100 MG/2 ML VIAL IV SCH (15:22)
[2023-07-28 17:53] LABS: Glucose,Whole Blood 112 mg/dL (70-110)
[2023-07-28] MEDS ORDERED: Potassium Replacement Protocol 1 EACH MISC MISCELLANE PRN (18:48)
[2023-07-28] MEDS: POTASSIUM CHLORIDE ER 20 MEQ TAB.ER PO SCH (18:52)
[2023-07-29 00:41] LABS: Glucose,Whole Blood 164 mg/dL (70-110)
--- NOTE | 2023-07-29 01:28 | CT ---
EXAM: CT Angiography Chest With Intravenous Contrast CLINICAL HISTORY: CT Reason: pe/positive dvt TECHNIQUE: Axial computed tomographic angiography images of the chest with intravenous contrast. CTDI is 107.8 mGy and DLP is 1289.4 mGy-cm. This CT exam was performed using one or more of the following dose reduction techniques: automated exposure control, adjustment of the mA and/or kV according to patient size, and/or use of iterative reconstruction technique. MIP reconstructed images were created and reviewed. COMPARISON: Chest x-ray from July 28, 2023 FINDINGS: Pulmonary arteries: The pulmonary arterial tree is adequately opacified with contrast. There is mild motion artifact. No pulmonary emboli are identified. Aorta: The thoracic aorta is nondilated. There is no aneurysm or dissection. Lungs: See below. Pleural space: There are bilateral pleural effusions layering posteriorly measuring approximately 3.5 cm on the right and 4 cm on the left. There is left lower lobe consolidation as well as partial consolidation of the deep and a portion of the left upper lobe consistent with pneumonia or atelectasis. There is a small amount of subsegmental atelectasis or edema centrally. Heart: The heart is mildly enlarged. No significant pericardial effusion. No evidence of RV dysfunction. Bones/joints: Moderate multilevel degenerative change are seen throughout the spine. No fracture or bone lesion is identified. No dislocation. Soft tissues: Unremarkable. Lymph nodes: Unremarkable. No enlarged lymph nodes. Liver: Fatty infiltration of the liver. Stomach and bowel: The stomach is distended with ingested material but nondilated. Intraperitoneal space: There is a small amount of ascites under the diaphragm. Other findings: There is volume loss on the left. IMPRESSION: 1. There are bilateral pleural effusions layering posteriorly measuring approximately 3.5 cm on the right and 4 cm on the left. There is left lower lobe consolidation as well as partial consolidation of the deep and a portion of the left upper lobe consistent with pneumonia or atelectasis. There is a small amount of subsegmental atelectasis or edema centrally. 2. The thoracic aorta is nondilated. There is no aneurysm or dissection. 3. The pulmonary arterial tree is adequately opacified with contrast. There is mild motion artifact. No pulmonary emboli are identified.
[2023-07-29 05:15] LABS: ABG Base Excess -4.1 mmol/L; ABG HCO3 22 mmol/L (21-25); ABG Oxygen Saturation 97.6 % (94-97); ABG PCO2 43 mmHg (35-45); ABG PH 7.32 (7.35-7.45); ABG PO2 83 mmHg (83-108); ABG TCO2 23 mmol/L (19-24); Allen Test Performed? Yes
[2023-07-29 06:37] LABS: African American GFR (CKD) >90 (>60 ml/min/1.73 sqM); Anion Gap 5 mmol/L; Blood Urea Nitrogen 22 mg/dL (9-20); Carbon Dioxide 18 mmol/L (22-30); Chloride 104 mmol/L (98-107); Glucose 133 mg/dL (74-99); Non-African American GFR(CKD) >90 (>60 ml/min/1.73 sqM); Potassium 3.1 mmol/L (3.5-5.1); Sodium 127 mmol/L (137-145)
[2023-07-29 06:47] LABS: Calcium 5.5 mg/dL (8.4-10.2)
[2023-07-29 06:49] LABS: Anisocytosis Slight; HCT 34.2 % (39.0-53.0); HGB 11.4 gm/dL (13.0-17.5); MCH 27.3 pg (25.0-35.0); MCHC 33.3 g/dL (31.0-37.0); MCV 81.9 fL (80.0-100.0); RBC 4.18 m/uL (4.30-5.90); RDW 16.5 % (11.5-15.5); WBC 34.2 k/uL (3.8-10.6)
[2023-07-29 06:52] LABS: Platelet Count 50 k/uL (150-450)
[2023-07-29] MEDS: CALCIUM GLUCONATE IN NACL 1 GM in SALINE 1 100ML.BAG IVPB ONE ×2 (08:15→23:25)
[2023-07-29] MEDS: POTASSIUM CHLORIDE ER 20 MEQ TAB.ER PO SCH ×2 (08:15→22:48)
[2023-07-29 08:34] LABS: Glucose,Whole Blood 161 mg/dL (70-110)
--- NOTE | 2023-07-29 08:42 | P.PN ---
Subjective Progress Note Date: 07/29/23 Principal diagnosis: Bradycardia This is a very pleasant and unfortunate 57-year-old gentleman with a past medical history significant for history of quadriplegia secondary to injury related to hockey as well as history of urinary tract infection as well as multiple comorbid conditions. The patient lives at home and has a visiting nurse checking on him every other day. It was noted that he was hypotensive. He was experiencing symptoms of being tired and fatigued and has no energy and also experiencing symptoms of abdominal discomfort. He was brought to the hospital for further investigation. He was diagnosed with acute pancreatitis. Also he was diagnosed with possible UTI. He was hypotension requiring initially IV fluid with no response and subsequently he was started on norepinephrine to support his blood pressure. No symptoms of any chest pain or chest discomfort and no presyncope or syncope and no shortness of breath. We consulted to see the patient because of bradycardia. His heart rate has been in the 50s. The patient was asymptomatic with the bradycardia. No history of coronary artery disease or congestive heart failure or cardiac arrhythmia and he never seen a chocolate temperer before. Further investigation performed including an EKG and that showed sinus mechanism with borderline first-degree AV block and PACs. Troponin came in to be unremarkable with the chest x-ray did not show any acute abnormalities. The blood work indicated possible acute pancreatitis and also he underwent a CT scan of the abdomen and pelvis. The patient was not on any AV jerson willi agents. No thyroid function test has performed nor echocardiogram as of yet. Examination revealed regular rhythm with a distant heart sounds and diminished breathing sounds bilaterally and atrophy of the upper and lower extremities. July 28, 2023 The patient was seen this morning. He continues to be hypotensive on vasopressors. He is not bradycardic anymore and currently he is slightly tachycardic but even that the heart rate has been coming down. The echo revealed normal LV systolic function. TSH and free T4 came in to be unremarkable. From the cardiovascular standpoint of view, I would continue the current medical regimen and continue supporting the blood pressure. Examination reveals regular rhythm with clear breathing sounds bilaterally and no edema was noted. July 29, 2023 The patient was seen and evaluated this morning. He continues to be hypotensive requiring vasopressors but we are coming down with the doses. His heart rate has improved. The echo showed normal LV systolic function with no significant valvular abnormalities. He underwent yesterday CT scan of the chest and that showed bilateral pleural effusion. Definitely he seems edematous. He might benefit from 1 dose of Lasix carefully giving the marginally low blood pressure. The examination revealed regular rhythm with a distant heart sounds and diminished breathing sounds bilaterally and mild bilateral lower extremities edema. Assessment Acute pancreatitis Possible urinary tract infection Sepsis Hypotension require vasopressors Bradycardia which has resolved Quadriplegia Bilateral pleural effusion Multiple comorbid conditions Plan Continue current medical regimen Continue supporting the blood pressure Consider pleurocentesis versus 1 dose of diuretics Follow-up with the patient Objective - Vital Signs Vital signs: Vital Signs Temp 98.1 F 07/29/23 04:00 Pulse 92 07/29/23 07:00 Resp 26 H 07/29/23 07:00 BP 92/43 07/28/23 12:15 Pulse Ox 100 07/29/23 07:00 FiO2 Intake & Output 07/28/23 07/29/23 07/29/23 18:59 06:59 18:59 Intake Total 4101.987 2239.441 429 Output Total 980 1550 150 Balance 3121.987 689.441 279 Weight 101.06 kg 101.469 kg Intake: IV 100 Piperacillin-Tazobactam 3 100 .375 gm In Sodium Chloride 0.9% 100 ml @ 25 mls/hr IVPB Q8HR [facility] Rx# :[id number] Intake, IV Titration 3761.987 1989.441 429 Amount Dextrose 5% in Water 1, 1000 1500 125 000 ml @ 125 mls/hr IV . Q9H12M [facility] with Sodium Bicarb (1 Meq/ml) 150 ml Rx#:[id number] Dextrose 5% in Water 1, 600 400 50 000 ml @ 50 mls/hr IV . Q20H [facility] Rx#:[id number] Dextrose 5%-0.9% NaCl 1, 500 000 ml @ 50 mls/hr IV . Q20H [facility] Rx#:[id number] Meropenem 1 gm In Sodium 400 Chloride 0.9% 100 ml @ 33 .3 mls/hr IVPB Q8HR [facility] Rx#:[id number] Norepinephrine 4 mg In 454.541 89.441 Sodium Chloride 0.9% 250 ml @ 0.03 MCG/KG/MIN 9. 332 mls/hr IV .Q24H [facility] Rx#:[id number] Phenylephrine 40 mg In 756.446 254 Sodium Chloride 0.9% 250 ml @ 0.5 MCG/KG/MIN 15. 554 mls/hr IV .[id number] [facility] Rx#:[id number] Vasopressin 20 unit In 51.000 Sodium Chloride 0.9% 50 ml @ 0.03 UNITS/MIN 4.59 mls/hr IV .Q11H7M [facility] Rx# :[id number] Oral 240 250 Output: Urine 980 1550 150 Other: Voiding Method Indwelling Catheter Indwelling Catheter ABP, PAP, CO, CI - Last Documented Arterial Blood Pressure 134/74 - Labs CBC & Chem 7: 07/29/23 05:15 07/29/23 05:15 Labs: Abnormal Lab Results - Last 24 Hours (Table) 07/28/23 07/28/23 07/29/23 Range/Units 17:50 17:54 00:40 WBC (3.8-10.6) k/uL RBC (4.30-5.90) m/uL Hgb (13.0-17.5) gm/dL Hct (39.0-53.0) % RDW (11.5-15.5) % Plt Count (150-450) k/uL ABG pH (7.35-7.45) ABG O2 Saturation (94-97) % Sodium (137-145) mmol/L Potassium 3.1 L (3.5-5.1) mmol/L Carbon Dioxide (22-30) mmol/L BUN (9-20) mg/dL Glucose (74-99) mg/dL POC Glucose (mg/dL) 112 H 164 H (70-110) mg/dL Calcium (8.4-10.2) mg/dL 07/29/23 07/29/23 07/29/23 Range/Units 05:10 05:15 05:15 WBC 34.2 H (3.8-10.6) k/uL RBC 4.18 L (4.30-5.90) m/uL Hgb 11.4 L (13.0-17.5) gm/dL Hct 34.2 L (39.0-53.0) % RDW 16.5 H (11.5-15.5) % Plt Count 50 L (150-450) k/uL ABG pH 7.32 L (7.35-7.45) ABG O2 Saturation 97.6 H (94-97) % Sodium 127 L (137-145) mmol/L Potassium 3.1 L (3.5-5.1) mmol/L Carbon Dioxide 18 L (22-30) mmol/L BUN 22 H (9-20) mg/dL Glucose 133 H (74-99) mg/dL POC Glucose (mg/dL) (70-110) mg/dL Calcium 5.5 L* (8.4-10.2) mg/dL 07/29/23 Range/Units 08:31 WBC (3.8-10.6) k/uL RBC (4.30-5.90) m/uL Hgb (13.0-17.5) gm/dL Hct (39.0-53.0) % RDW (11.5-15.5) % Plt Count (150-450) k/uL ABG pH (7.35-7.45) ABG O2 Saturation (94-97) % Sodium (137-145) mmol/L Potassium (3.5-5.1) mmol/L Carbon Dioxide (22-30) mmol/L BUN (9-20) mg/dL Glucose (74-99) mg/dL POC Glucose (mg/dL) 161 H (70-110) mg/dL Calcium (8.4-10.2) mg/dL Microbiology - Last 24 Hours (Table) 07/26/23 11:15 Blood Culture - Preliminary Blood 07/26/23 11:00 Blood Culture - Preliminary Blood 07/26/23 12:16 Urine Culture - Final Urine,Voided Escherichia coli
[2023-07-29] MEDS: HYDROCORTISONE SUCCINATE 100 MG/2 ML VIAL IV SCH (08:59)
[2023-07-29] MEDS: SODIUM CHLORIDE 0.9% 1,000 ML IV SCH (09:00)
[2023-07-29] MEDS ORDERED: HYDROCORTISONE SUCCINATE 100 MG/2 ML VIAL IV SCH (09:00)
[2023-07-29] MEDS: LORazepam 2 MG/ML INJ IV PRN (09:03)
[2023-07-29 09:07] LABS: ABG Base Excess -2.3 mmol/L; ABG HCO3 23 mmol/L (21-25); ABG Oxygen Saturation 98.8 % (94-97); ABG PCO2 36 mmHg (35-45); ABG PO2 88 mmHg (83-108); ABG TCO2 24 mmol/L (19-24)
[2023-07-29 09:10] LABS: Allen Test Performed? no
--- NOTE | 2023-07-29 12:25 | P.PN ---
Subjective Progress Note Date: 07/29/23 Principal diagnosis: Septic shock, UTI, acute pancreatitis and profound hypotension Patient is a 57-year-old white male with past medical history significant for quadriplegia from a hockey accident, seizure disorder, chronic decubitus pressure ulcer and evaluated by wound care every other day, chronic indwelling urinary catheter with frequent urinary tract infections. Patient presented to the emergency room yesterday afternoon complaining mostly of reduced appetite, nausea, lower nonradiating abdominal pain, and generalized weakness. Patient lives at home and is seen by the visiting nurses [employer]. Patient states that he was recently treated for urinary tract infection outpatient with tetracycline. Most recent urine culture collected from 06/23/23 positive for E. coli and Pseudomonas aeruginosa. Preliminary urinalysis positive for leukocyte Estrace and pyuria. CBC on arrival: WBC count 15.2, hemoglobin 14.5, hematocrit 42.4, platelets 97. BMP on arrival: Sodium 120, potassium 4.1, chloride 87, serum bicarb 21, BUN 67, creatinine 0.99, glucose 90. Troponins less than 0.012 x 2. EKG consistent with sinus bradycardia and chronic T wave inversion in the anterior leads no acute ischemic changes. Total bilirubin 3.3. AST 42, ALT 38, ALP 171. Amylase and lipase 151 and 1220 respectively. Patient denies history of pancreatitis. Denies history of gallstones. Does not drink alcohol. Abdominal pain is described as lower and medial, nonradiating. Sensation is impaired. He does have nausea without any actual emesis. No reported diarrhea, iker bloody bowel movements, or melena. CT of the abdomen and pelvis demonstrated a gallbladder and pancreas within normal limits. No reported peripancreatic fat stranding, abscesses, necrosis. No reported cholelithiasis. There was prominent fluid distention of the stomach and duodenum. The duodenum and jejunum show mucosal hyperemia and circumferential wall thickening of the mid to distal sigmoid colon and rectum. Findings concerning for gastroenteritis and possible mild to moderate distal colitis. There was mild reflux esophagitis. There is bladder wall thickening concerning for possible cystitis. Atrophic bilateral kidneys, with delayed excretion may reflect acute on chronic kidney disease. There was a left side decubitus ulcer over the ischial tuberosity. There was soft tissue thickening abutting the posterior left hip and left ischium. No discrete osseous destruction. We were asked to evaluate this patient last night due to concerns of hypotension refractory to aggressive fluid resuscitation with a total of 5 L normal saline bolus, and will require norepinephrine infusion for blood pressure support. Patient is currently in the emergency room. He is lying in bed, on room air, no acute distress. Chest x-ray does not show any acute cardiopulmonary process. Blood pressure currently 80/48 mmHg. Heart rate is sinus bradycardia in the 50s. Normal saline is concurrently running at 130 MLS per hour. Patient does have a urinary catheter, and the urometer is full. Urine is yellow and cloudy. Currently afebrile. Empirically covered on Zosyn. Patient will be transferred to room [facility] once bed available. Patient was reevaluated today on 07/28/2023, patient remains in the ICU, hemodynamically unstable, requiring multiple pressors. He is now on norepinephrine at 0.12 mcg/kg/min he is also on vasopressin at 0.04 units/h, on Hemant-Synephrine at 2 mcg/kg/min, patient is receiving D5W with 3 A of bicarb for his severe metabolic acidosis at 150 cc/h, he is also receiving intermittent bicarb IV push, patient is on room air, not in distress, but his ABG is marginal with a pO2 of 74 pCO2 of 25 pH of 7.34, bicarb this morning is 8. His white count is as high as 43,000. Patient is empirically on Zosyn, he received multiple fluid boluses almost 6 L of fluids nonetheless his blood pressure remains marginal. Today I went ahead and placed a right IJ triple-lumen cat heter in this patient, and will transition his drips to the central line. Labs today showed bicarb of 8 sodium 129 potassium 3.3 chloride 112 BUN is 34 creatinine 0.89. WBC count is 43,000, platelets are 91,000 calcium is 6.4, serum albumin is 1.7, lipase still high at 7583, improving compared to yesterday 9628 it is surprising that the patient looks comfortable in spite of all the metabolic abnormalities noted and in spite of the fact that he is requiring multiple pressors to maintain a barely adequate blood pressure patient has been tachycardic, hence his norepinephrine will be titrated down, and I started the patient on Hemant-Synephrine instead. And seems to be working better with less ta chycardia. Considering the profound hypotension, I will give the patient a dose of Solu-Cortef 100 mg IV push, and decide whether to continue with Solu-Cortef depending on the response to treatment Reeval on 07/29/2023, patient remains in the ICU, continues to require Hemant- Synephrine and vasopressin, I plan to discontinue his Hemant-Synephrine and gradually taper and possibly discontinue vasopressin today if tolerated. Patient is now off norepinephrine. Remains on a bicarb drip which I cut it down to 75 cc/h patient did receive Solu-Cortef at 100 mg IV push every 8 hours and apparently his baseline serum cortisol few days ago was 18.8 nonetheless the patient did improve with Solu-Cortef, and his blood pressure significantly normalized. To the point that we had him now off Levophed, and may discontinue Hemant-Synephrine in the next couple of hours. The patient is anxious, he seems to be confused, and he keeps saying that I am confused today compared to yesterday. Patient again is anxious and he was given 0.5 mg of Ativan IV push I ordered a stat ABG as he was complaining of being confused and showed a pO2 of 88 pCO2 36 pH of 7.40 for some reason his admitting physician ordered a CT angiogram of the chest although the presentation on this patient is not a presentation of any suspicion or any index of suspicion for pulmonary embolism. As expected CT angio did not show evidence of pulmonary embolism it did show findings of atelectasis and pleural effusions which were seen already on chest x-ray. Patient remains on antibiotics for his UTI, he is on Merrem as recommended by infectious disease on the case. Today I cut down his Solu-Cortef to 50 mg IV push every 12 hours thinking that Solu-Cortef may be making him a bit confused. His urinalysis and urine cultures were noted, patient has E. coli in the urine.. E. coli is not ESBL E. coli, nonetheless patient was placed on Merrem as per infectious disease on the case. Blood cultures are negative. Urine output is over 200 cc/h, hence I will cut down his IV fluid to 50 cc/h and cut down his bicarb down to 75 cc/h patient received at least 6 L of fluid boluses yesterday and upon admission to address his low blood pressure considering patient has low sodium I am changing his IV fluid 2.9 instead of D5 4 5, and I am keeping him on a bicarb drip. WBC count is down to 34.2 hemoglobin 11.4. Renal profile is normal bicarb is up to 18 lipase is improving it is down to 05/12/2008. Calcium is low at 5.5, however his albumin is 1.7, patient did receive 1 amp of calcium gluconate Objective - Vital Signs Vital signs: Vital Signs Temp 97.8 F 07/29/23 08:00 Pulse 94 07/29/23 11:00 Resp 13 07/29/23 11:00 BP 86/62 07/29/23 11:00 Pulse Ox 97 07/29/23 11:00 FiO2 Intake & Output 07/28/23 07/29/23 07/29/23 18:59 06:59 18:59 Intake Total 4101.987 2290.441 1197.956 Output Total 980 1550 700 Balance 3121.987 740.441 497.956 Weight 101.06 kg 101.469 kg Intake: IV 100 700 Calcium Gluconate in NaCl 100 1 gm In Saline 1 100ml. bag @ 100 mls/hr IVPB ONCE ONE Rx#:[id number] Dextrose 5% in Water 1, 100 000 ml @ 50 mls/hr IV . Q20H [facility] Rx#:[id number] Dextrose 5% in Water 1, 300 000 ml @ 75 mls/hr IV . [id number] [facility] with Sodium Bicarb (1 Meq/ml) 150 ml Rx#:[id number] Meropenem 1 gm In Sodium 100 Chloride 0.9% 100 ml @ 33 .3 mls/hr IVPB Q8HR [facility] Rx#:[id number] Piperacillin-Tazobactam 3 100 .375 gm In Sodium Chloride 0.9% 100 ml @ 25 mls/hr IVPB Q8HR [facility] Rx# :[id number] Sodium Chloride 0.9% 1, 100 000 ml @ 50 mls/hr IV . Q20H [facility] Rx#:[id number] Intake, IV Titration 3761.987 2040.441 497.956 Amount Dextrose 5% in Water 1, 600 400 50 000 ml @ 50 mls/hr IV . Q20H [facility] Rx#:[id number] Dextrose 5% in Water 1, 1000 1500 125 000 ml @ 75 mls/hr IV . [id number] [facility] with Sodium Bicarb (1 Meq/ml) 150 ml Rx#:[id number] Dextrose 5%-0.9% NaCl 1, 500 000 ml @ 50 mls/hr IV . Q20H [facility] Rx#:[id number] Meropenem 1 gm In Sodium 400 Chloride 0.9% 100 ml @ 33 .3 mls/hr IVPB Q8HR [facility] Rx#:[id number] Norepinephrine 4 mg In 454.541 89.441 Sodium Chloride 0.9% 250 ml @ 0.03 MCG/KG/MIN 9. 332 mls/hr IV .Q24H [facility] Rx#:[id number] Phenylephrine 40 mg In 756.446 322.956 Sodium Chloride 0.9% 250 ml @ 0.5 MCG/KG/MIN 15. 554 mls/hr IV .[id number] [facility] Rx#:[id number] Vasopressin 20 unit In 51.000 51 Sodium Chloride 0.9% 50 ml @ 0.03 UNITS/MIN 4.59 mls/hr IV .Q11H7M [facility] Rx# :[id number] Oral 240 250 Output: Urine 980 1550 700 Other: Voiding Method Indwelling Catheter Indwelling Catheter Indwelling Catheter ABP, PAP, CO, CI - Last Documented Arterial Blood Pressure 79/40 - Exam GENERAL EXAM: Revealed a 57-year-old white male obese in no distress on 3 L nasal cannula with O2 sats of 97% HEAD: Normocephalic and atraumatic EYES: Normal reaction of pupils, equal size. NOSE: Clear with pink turbinates. THROAT: No erythema or exudates. NECK: No masses, no JVD. CHEST: No chest wall deformity. LUNGS: Equal air entry with no crackles, wheeze, rhonchi or dullness. On room air. No conversational dyspnea or accessory muscle use.. CVS: S1 and S2 normal with no audible murmur, regular rhythm. No extra heart sounds ABDOMEN: No hepatosplenomegaly, active bowel sounds, no guarding or rigidity. Facial grimacing with palpation in the suprapubic region. SPINE: No scoliosis or deformity SKIN: No rashes. Left buttock wound with pink/red granulation tissue, no purulent drainage. CENTRAL NERVOUS SYSTEM: Alert and oriented x 3, normal speech, no facial symmetry, all 4 extremities are atrophied and contracted. Extremity strength flaccid EXTREMITIES: There is bilateral lower extremity pitting edema, greater on the left. No clubbing, or cyanosis. Peripheral pulses are intact. - Labs CBC & Chem 7: 07/29/23 05:15 07/29/23 05:15 Labs: Abnormal Lab Results - Last 24 Hours (Table) 07/28/23 07/28/23 07/29/23 Range/Units 17:50 17:54 00:40 WBC (3.8-10.6) k/uL RBC (4.30-5.90) m/uL Hgb (13.0-17.5) gm/dL Hct (39.0-53.0) % RDW (11.5-15.5) % Plt Count (150-450) k/uL ABG pH (7.35-7.45) ABG O2 Saturation (94-97) % Sodium (137-145) mmol/L Potassium 3.1 L (3.5-5.1) mmol/L Carbon Dioxide (22-30) mmol/L BUN (9-20) mg/dL Glucose (74-99) mg/dL POC Glucose (mg/dL) 112 H 164 H (70-110) mg/dL Calcium (8.4-10.2) mg/dL Lipase (23-300) U/L 07/29/23 07/29/23 07/29/23 Range/Units 05:10 05:15 05:15 WBC 34.2 H (3.8-10.6) k/uL RBC 4.18 L (4.30-5.90) m/uL Hgb 11.4 L (13.0-17.5) gm/dL Hct 34.2 L (39.0-53.0) % RDW 16.5 H (11.5-15.5) % Plt Count 50 L (150-450) k/uL ABG pH 7.32 L (7.35-7.45) ABG O2 Saturation 97.6 H (94-97) % Sodium 127 L (137-145) mmol/L Potassium 3.1 L (3.5-5.1) mmol/L Carbon Dioxide 18 L (22-30) mmol/L BUN 22 H (9-20) mg/dL Glucose 133 H (74-99) mg/dL POC Glucose (mg/dL) (70-110) mg/dL Calcium 5.5 L* (8.4-10.2) mg/dL Lipase (23-300) U/L 07/29/23 07/29/23 07/29/23 Range/Units 05:15 08:31 09:04 WBC (3.8-10.6) k/uL RBC (4.30-5.90) m/uL Hgb (13.0-17.5) gm/dL Hct (39.0-53.0) % RDW (11.5-15.5) % Plt Count (150-450) k/uL ABG pH (7.35-7.45) ABG O2 Saturation 98.8 H (94-97) % Sodium (137-145) mmol/L Potassium (3.5-5.1) mmol/L Carbon Dioxide (22-30) mmol/L BUN (9-20) mg/dL Glucose (74-99) mg/dL POC Glucose (mg/dL) 161 H (70-110) mg/dL Calcium (8.4-10.2) mg/dL Lipase 2209 H (23-300) U/L Microbiology - Last 24 Hours (Table) 07/26/23 11:15 Blood Culture - Preliminary Blood 07/26/23 11:00 Blood Culture - Preliminary Blood 07/26/23 12:16 Urine Culture - Final Urine,Voided Escherichia coli Assessment and Plan Assessment: Impression: Profound hypotension secondary to septic shock, acute pancreatitis, and profound hypovolemia. Acute E. coli urinary tract infection with sepsis and septic shock Acute pancreatitis, improving with improving lipase level but not resolved Possible acute gastroenteritis and colitis Severe dehydration and poor oral intake Hypovolemic hyponatremia, likely secondary to above Quadriplegic, secondary to traumatic hockey accident Neurogenic bladder and chronic indwelling urinary catheter Chronic decubitus pressure ulcer History of seizure disorder, last reported seizure over 5 years ago, maintained on Keppra Left lower extremity edema, venous Doppler questioned chronic thrombosis of right CFV GERD with esophagitis History of hyperlipidemia Recommendation: Continue to monitor in the ICU Continue pressors however will titrate, patient is off Levophed, but he is on Hemant-Synephrine and vasopressin. This will be titrated accordingly. Continue antibiotics, infectious disease recommended Merrem, urine cultures are showing E. coli it is not an ESBL E. coli Continue GI and DVT prophylaxis Continue on n.p.o. Continue to monitor pancreatic enzymes and liver enzymes Cut down Solu-Cortef to 50 mg IV push every 12 hours Continue IV fluids however will cut down the rate Continue bicarb drip cut down to 75 cc/h Blood cultures remain negative so far. Patient is critically ill Critical care time is over 30 minutes Time with Patient: Greater than 30
[2023-07-29 12:45] LABS: Glucose,Whole Blood 124 mg/dL (70-110)
--- NOTE | 2023-07-29 13:01 | P.PN ---
Subjective Progress Note Date: 07/29/23 * 57-year-old male who presented to the emergency department with complaints of nausea vomiting diarrhea and generalized weakness. 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 Patient had a visiting nurse and was noted to be hypotensive so he was brought to the hospital for further evaluation. Patient was also noted to be bradycardic. They admitted him to the ICU for sepsis and hypotension which she has been requiring vasopressors. He states that he has chronic constipation and has a bowel regimen. Imaging CT abdomen pelvis with contrast reports prominent fluid distention of the stomach and duodenum. There is also scattered fluid throughout the small bowel. Duodenum and jejunum show mucosal hyperemia. In addition there is circumferential wall thickening of the mid to distal sigmoid colon and rectum. Correlate for gastroenteritis as well as nonspecific mild to moderate distal colitis. Mclaughlin catheter present. Collapsed bladder shows wall thickening as well. Correlate to exclude cystitis. Possible mild reflux esophagitis. Atrophic bilateral kidneys but with delayed excretion may reflect acute on chronic kidney injury. Left-sided decubitus ulcer overlying the ischial tuberosity. Soft tissue thickening directly abuts the posterior left hip and left ischium no discrete osseous destruction. Probably relating to healing granulation tissue. Clinically correlate. * Abdominal ultrasound reports no evidence for acute process. No evidence for obstructive uropathy. Right renal calculi. Ascites and right upper quadrant. Coarsened echotexture to the liver correlate for hepatocellular disease. * Labs WBC 22 hemoglobin 13.6 hematocrit 42 platelet count 94,000 sodium 129 potassium 3.1 BUN 41 creatinine 0.7 total bilirubin 3.1 conjugated bili 0.4 unconjugated bili 2.0 AST 31 ALT 31 alkaline phosphatase 357 lipase 9628 * 07/28/23 : patient seen and evaluated bedside continue with pressure support, appreciate input from infectious disease, CT chest completed * 07/29/23 : patient seen and evaluated bedside,workup reviewed potassium replaced, appreciate input from cardiology as well as medical ICU team.calcium replaced patient weaned off norepinephrine. Vasopressin and Hemant-Synephrine running. PHYSICAL EXAMINATION: GENERAL: The patient is alert and oriented x3, ill appearance Mclaughlin catheter in place HEENT: Pupils are round and equally reacting to light. EOMI. No conjunctival pallor. Normocephalic, atraumatic. No pharyngeal erythema. No thyromegaly. CARDIOVASCULAR: S1 and S2 present. No murmurs, rubs, or gallops. PULMONARY: Chest is clear to auscultation, no wheezing or crackles. ABDOMEN: Soft, nontender, nondistended, normoactive bowel sounds. No palpable organomegaly. MUSCULOSKELETAL: No joint swelling or deformity. EXTREMITIES: pedal edema. NEUROLOGICAL: Is at baseline Assessment and plan * Septic shock with urinary tract infection * Acute pancreatitis * Stage III pressure ulcer left buttock, stage II pressure ulcer right hip * History of quadriplegia with indwelling Mclaughlin catheter in place * To [place] acidosis secondary to sepsis * Hyponatremia * history of seizure disorder * In regards to septic shock, continue patient on resuscitation, patient on pressor support, arterial line in place managed by medical ICU. * Continue to monitor intake and output * blood cultures collected * urine cultures collected * continue broad-spectrum antibiotic receiving IV Zosyn infectious disease on consult * In regards to pancreatitis continue fluid resuscitation follow-up on lipase levels, CT abdomen pelvis reviewed * In regards to pressure ulcer, patient seen by wound care team * # History of seizure disorder continue patient on Keppra * Patient on heparin for DVT prophylaxis CODE STATUS full code * Remains critically ill secondary to underlying comorbidities Objective - Vital Signs Vital signs: Vital Signs Temp 97.8 F 07/29/23 08:00 Pulse 98 07/29/23 09:00 Resp 38 H 07/29/23 09:00 BP 92/43 07/28/23 12:15 Pulse Ox 97 07/29/23 09:00 FiO2 Intake & Output 07/28/23 07/29/23 07/29/23 18:59 06:59 18:59 Intake Total 4101.987 2290.441 879 Output Total 980 1550 500 Balance 3121.987 740.441 379 Weight 101.06 kg 101.469 kg Intake: IV 100 450 Calcium Gluconate in NaCl 100 1 gm In Saline 1 100ml. bag @ 100 mls/hr IVPB ONCE ONE Rx#:[id number] Dextrose 5% in Water 1, 100 000 ml @ 50 mls/hr IV . Q20H [facility] Rx#:[id number] Dextrose 5% in Water 1, 250 000 ml @ 75 mls/hr IV . [id number] [facility] with Sodium Bicarb (1 Meq/ml) 150 ml Rx#:[id number] Piperacillin-Tazobactam 3 100 .375 gm In Sodium Chloride 0.9% 100 ml @ 25 mls/hr IVPB Q8HR [facility] Rx# :[id number] Intake, IV Titration 3761.987 2040.441 429 Amount Dextrose 5% in Water 1, 600 400 50 000 ml @ 50 mls/hr IV . Q20H [facility] Rx#:[id number] Dextrose 5% in Water 1, 1000 1500 125 000 ml @ 75 mls/hr IV . [id number] [facility] with Sodium Bicarb (1 Meq/ml) 150 ml Rx#:[id number] Dextrose 5%-0.9% NaCl 1, 500 000 ml @ 50 mls/hr IV . Q20H [facility] Rx#:[id number] Meropenem 1 gm In Sodium 400 Chloride 0.9% 100 ml @ 33 .3 mls/hr IVPB Q8HR [facility] Rx#:[id number] Norepinephrine 4 mg In 454.541 89.441 Sodium Chloride 0.9% 250 ml @ 0.03 MCG/KG/MIN 9. 332 mls/hr IV .Q24H [facility] Rx#:[id number] Phenylephrine 40 mg In 756.446 254 Sodium Chloride 0.9% 250 ml @ 0.5 MCG/KG/MIN 15. 554 mls/hr IV .[id number] [facility] Rx#:[id number] Vasopressin 20 unit In 51.000 51 Sodium Chloride 0.9% 50 ml @ 0.03 UNITS/MIN 4.59 mls/hr IV .Q11H7M [facility] Rx# :[id number] Oral 240 250 Output: Urine 980 1550 500 Other: Voiding Method Indwelling Catheter Indwelling Catheter Indwelling Catheter ABP, PAP, CO, CI - Last Documented Arterial Blood Pressure 103/64 - Labs CBC & Chem 7: 07/29/23 05:15 07/29/23 05:15 Labs: Abnormal Lab Results - Last 24 Hours (Table) 07/28/23 07/28/23 07/29/23 Range/Units 17:50 17:54 00:40 WBC (3.8-10.6) k/uL RBC (4.30-5.90) m/uL Hgb (13.0-17.5) gm/dL Hct (39.0-53.0) % RDW (11.5-15.5) % Plt Count (150-450) k/uL ABG pH (7.35-7.45) ABG O2 Saturation (94-97) % Sodium (137-145) mmol/L Potassium 3.1 L (3.5-5.1) mmol/L Carbon Dioxide (22-30) mmol/L BUN (9-20) mg/dL Glucose (74-99) mg/dL POC Glucose (mg/dL) 112 H 164 H (70-110) mg/dL Calcium (8.4-10.2) mg/dL 07/29/23 07/29/23 07/29/23 Range/Units 05:10 05:15 05:15 WBC 34.2 H (3.8-10.6) k/uL RBC 4.18 L (4.30-5.90) m/uL Hgb 11.4 L (13.0-17.5) gm/dL Hct 34.2 L (39.0-53.0) % RDW 16.5 H (11.5-15.5) % Plt Count 50 L (150-450) k/uL ABG pH 7.32 L (7.35-7.45) ABG O2 Saturation 97.6 H (94-97) % Sodium 127 L (137-145) mmol/L Potassium 3.1 L (3.5-5.1) mmol/L Carbon Dioxide 18 L (22-30) mmol/L BUN 22 H (9-20) mg/dL Glucose 133 H (74-99) mg/dL POC Glucose (mg/dL) (70-110) mg/dL Calcium 5.5 L* (8.4-10.2) mg/dL 07/29/23 07/29/23 Range/Units 08:31 09:04 WBC (3.8-10.6) k/uL RBC (4.30-5.90) m/uL Hgb (13.0-17.5) gm/dL Hct (39.0-53.0) % RDW (11.5-15.5) % Plt Count (150-450) k/uL ABG pH (7.35-7.45) ABG O2 Saturation 98.8 H (94-97) % Sodium (137-145) mmol/L Potassium (3.5-5.1) mmol/L Carbon Dioxide (22-30) mmol/L BUN (9-20) mg/dL Glucose (74-99) mg/dL POC Glucose (mg/dL) 161 H (70-110) mg/dL Calcium (8.4-10.2) mg/dL Microbiology - Last 24 Hours (Table) 07/26/23 11:15 Blood Culture - Preliminary Blood 07/26/23 11:00 Blood Culture - Preliminary Blood 07/26/23 12:16 Urine Culture - Final Urine,Voided Escherichia coli
[2023-07-29 18:02] LABS: Glucose,Whole Blood 123 mg/dL (70-110)
[2023-07-29] MEDS: POTASSIUM CHLORIDE ER 20 MEQ TAB.ER PO STA (18:05)
--- NOTE | 2023-07-29 19:44 | P.PN ---
Subjective Progress Note Date: 07/29/23 Principal diagnosis: Reason for follow-up is UTI and sepsis Patient is a 57-year-old male past medical history significant for quadriplegia from an injury back in 1994 did have history of seizure disorder pneumonia hyperlipidemia reflux and recurrent UTI, recently treated for UTI in the outpatient setting with doxycycline presented to hospital with weakness dry heaves did have a positive UA concerning for symptomatic urinary tract infection was hypotensive requiring admission to ICU On today's evaluation that is 07/29/2023,the patient remains to be afebrile, patient is on 4 L nasal cannula supplemental oxygen however denies any shortness of breath no chest pain or cough.Patient denies having any nausea or vomiting, no abdominal pain and no diarrhea has been reported by the nursing staff.Still requiring pressor support slightly less than yesterday. Patient white count is slightly down to 34.2 creatinine is 0.76 blood culture negative urine with an E. coli that is a 90 ESBL Objective - Vital Signs Vital signs: Vital Signs Temp 97.8 F 07/29/23 08:00 Pulse 94 07/29/23 11:00 Resp 13 07/29/23 11:00 BP 86/62 07/29/23 11:00 Pulse Ox 97 07/29/23 11:00 FiO2 Intake & Output 07/28/23 07/29/23 07/29/23 18:59 06:59 18:59 Intake Total 4101.987 2290.441 1197.956 Output Total 980 1550 700 Balance 3121.987 740.441 497.956 Weight 101.06 kg 101.469 kg Intake: IV 100 700 Calcium Gluconate in NaCl 100 1 gm In Saline 1 100ml. bag @ 100 mls/hr IVPB ONCE ONE Rx#:[id number] Dextrose 5% in Water 1, 100 000 ml @ 50 mls/hr IV . Q20H [facility] Rx#:[id number] Dextrose 5% in Water 1, 300 000 ml @ 75 mls/hr IV . [id number] [facility] with Sodium Bicarb (1 Meq/ml) 150 ml Rx#:[id number] Meropenem 1 gm In Sodium 100 Chloride 0.9% 100 ml @ 33 .3 mls/hr IVPB Q8HR [facility] Rx#:[id number] Piperacillin-Tazobactam 3 100 .375 gm In Sodium Chloride 0.9% 100 ml @ 25 mls/hr IVPB Q8HR [facility] Rx# :[id number] Sodium Chloride 0.9% 1, 100 000 ml @ 50 mls/hr IV . Q20H [facility] Rx#:[id number] Intake, IV Titration 3761.987 2040.441 497.956 Amount Dextrose 5% in Water 1, 600 400 50 000 ml @ 50 mls/hr IV . Q20H [facility] Rx#:[id number] Dextrose 5% in Water 1, 1000 1500 125 000 ml @ 75 mls/hr IV . [id number] [facility] with Sodium Bicarb (1 Meq/ml) 150 ml Rx#:[id number] Dextrose 5%-0.9% NaCl 1, 500 000 ml @ 50 mls/hr IV . Q20H [facility] Rx#:[id number] Meropenem 1 gm In Sodium 400 Chloride 0.9% 100 ml @ 33 .3 mls/hr IVPB Q8HR [facility] Rx#:[id number] Norepinephrine 4 mg In 454.541 89.441 Sodium Chloride 0.9% 250 ml @ 0.03 MCG/KG/MIN 9. 332 mls/hr IV .Q24H [facility] Rx#:[id number] Phenylephrine 40 mg In 756.446 322.956 Sodium Chloride 0.9% 250 ml @ 0.5 MCG/KG/MIN 15. 554 mls/hr IV .[id number] [facility] Rx#:[id number] Vasopressin 20 unit In 51.000 51 Sodium Chloride 0.9% 50 ml @ 0.03 UNITS/MIN 4.59 mls/hr IV .Q11H7M [facility] Rx# :[id number] Oral 240 250 Output: Urine 980 1550 700 Other: Voiding Method Indwelling Catheter Indwelling Catheter Indwelling Catheter ABP, PAP, CO, CI - Last Documented Arterial Blood Pressure 79/40 - Exam GENERAL DESCRIPTION: Middle-age male lying in bed in no distress RESPIRATORY SYSTEM: Unlabored breathing , decreased breath sounds at bases HEART: S1 S2 regular rate and rhythm , ABDOMEN: Soft , no tenderness EXTREMITIES: No edema feet Exam completed with the help of SHUTDOWN COORDINATOR - Labs CBC & Chem 7: 07/29/23 05:15 07/29/23 15:25 Labs: Abnormal Lab Results - Last 24 Hours (Table) 0407/28/23 07/29/23 Range/Units 17:50 17:54 00:40 WBC (3.8-10.6) k/uL RBC (4.30-5.90) m/uL Hgb (13.0-17.5) gm/dL Hct (39.0-53.0) % RDW (11.5-15.5) % Plt Count (150-450) k/uL ABG pH (7.35-7.45) ABG O2 Saturation (94-97) % Sodium (137-145) mmol/L Potassium 3.1 L (3.5-5.1) mmol/L Carbon Dioxide (22-30) mmol/L BUN (9-20) mg/dL Glucose (74-99) mg/dL POC Glucose (mg/dL) 112 H 164 H (70-110) mg/dL Calcium (8.4-10.2) mg/dL Lipase (23-300) U/L 07/29/23 07/29/23 07/29/23 Range/Units 05:10 05:15 05:15 WBC 34.2 H (3.8-10.6) k/uL RBC 4.18 L (4.30-5.90) m/uL Hgb 11.4 L (13.0-17.5) gm/dL Hct 34.2 L (39.0-53.0) % RDW 16.5 H (11.5-15.5) % Plt Count 50 L (150-450) k/uL ABG pH 7.32 L (7.35-7.45) ABG O2 Saturation 97.6 H (94-97) % Sodium 127 L (137-145) mmol/L Potassium 3.1 L (3.5-5.1) mmol/L Carbon Dioxide 18 L (22-30) mmol/L BUN 22 H (9-20) mg/dL Glucose 133 H (74-99) mg/dL POC Glucose (mg/dL) (70-110) mg/dL Calcium 5.5 L* (8.4-10.2) mg/dL Lipase (23-300) U/L 07/29/23 07/29/23 07/29/23 Range/Units 05:15 08:31 09:04 WBC (3.8-10.6) k/uL RBC (4.30-5.90) m/uL Hgb (13.0-17.5) gm/dL Hct (39.0-53.0) % RDW (11.5-15.5) % Plt Count (150-450) k/uL ABG pH (7.35-7.45) ABG O2 Saturation 98.8 H (94-97) % Sodium (137-145) mmol/L Potassium (3.5-5.1) mmol/L Carbon Dioxide (22-30) mmol/L BUN (9-20) mg/dL Glucose (74-99) mg/dL POC Glucose (mg/dL) 161 H (70-110) mg/dL Calcium (8.4-10.2) mg/dL Lipase 2209 H (23-300) U/L Microbiology - Last 24 Hours (Table) 07/26/23 11:15 Blood Culture - Preliminary Blood 07/26/23 11:00 Blood Culture - Preliminary Blood 07/26/23 12:16 Urine Culture - Final Urine,Voided Escherichia coli Assessment and Plan (1) Leukocytosis Current Visit: Yes Status: Acute Code(s): D72.829 - ELEVATED WHITE BLOOD CELL COUNT, UNSPECIFIED SNOMED Code(s): 470309815 (2) Sepsis Current Visit: Yes Status: Acute Code(s): A41.9 - SEPSIS, UNSPECIFIED ORGANISM SNOMED Code(s): 64686252 (3) UTI (urinary tract infection) Current Visit: Yes Status: Acute Code(s): N39.0 - URINARY TRACT INFECTION, SITE NOT SPECIFIED SNOMED Code(s): 88358555 Plan: 1patient presented hospitalized weakness episode of nausea vomiting positive UA concerning for catheter assisted UTI failing outpatient oral doxycycline therapy 2-sulfa allergy 3-patient did have elevated liver enzymes ultrasound was negative for acute process General surgery is following the patient 4-patient urine has been finalized with E. coli that is ESBL patient white count is trending down and is requiring less pressor support with addition of meropenem yesterday to continue for now and will monitor clinical course closely Dictation was produced using [employer]. dictation software. please excuse any grammatical, word or spelling errors. Time with Patient: Less than 30
--- NOTE | 2023-07-29 20:13 | P.PN ---
Subjective Progress Note Date: 07/29/23 Subjective Progress Note Date: 07/28/23 CHIEF COMPLAINT: Abdominal pain HISTORY OF PRESENT ILLNESS: Patient remains in the ICU. Patient reports improvement of abdominal pain. He denies any nausea or vomiting. He is tolerating the clear liquids. Afebrile. He has been tachycardic. PHYSICAL EXAM: VITAL SIGNS: Reviewed. GENERAL: Well-developed in no acute distress. ABDOMEN: Soft. Nondistended. Nontender. NEUROLOGIC: Alert and oriented ASSESSMENT: 1. Acute pancreatitis improving. Possibly medication induced. Patient seen by GI service. No gallstones noted on ultrasound 2. UTI with sepsis 3. Hyperbilirubinemia PLAN: -No surgical intervention planned -Continue to monitor -Diet per GI service Objective - Vital Signs Vital signs: Vital Signs Temp 97.6 F 07/29/23 12:00 Pulse 88 07/29/23 19:00 Resp 28 H 07/29/23 19:00 BP 87/77 07/29/23 19:00 Pulse Ox 99 07/29/23 19:00 FiO2 Intake & Output 07/29/23 07/29/23 07/30/23 06:59 18:59 06:59 Intake Total 2290.441 2651.482 258.748 Output Total 1550 1260 60 Balance 952.190 6151.482 198.748 Weight 101.469 kg Intake: IV 1400 200 Calcium Gluconate in NaCl 100 1 gm In Saline 1 100ml. bag @ 100 mls/hr IVPB ONCE ONE Rx#:[id number] Dextrose 5% in Water 1, 100 000 ml @ 50 mls/hr IV . Q20H [facility] Rx#:[id number] Dextrose 5% in Water 1, 650 50 000 ml @ 75 mls/hr IV . [id number] [facility] with Sodium Bicarb (1 Meq/ml) 150 ml Rx#:[id number] Meropenem 1 gm In Sodium 100 100 Chloride 0.9% 100 ml @ 33 .3 mls/hr IVPB Q8HR [facility] Rx#:[id number] Sodium Chloride 0.9% 1, 450 50 000 ml @ 50 mls/hr IV . Q20H [facility] Rx#:[id number] Intake, IV Titration 2040.441 1251.482 58.748 Amount Dextrose 5% in Water 1, 400 50 000 ml @ 50 mls/hr IV . Q20H [facility] Rx#:[id number] Dextrose 5% in Water 1, 1500 125 000 ml @ 75 mls/hr IV . [id number] [facility] with Sodium Bicarb (1 Meq/ml) 150 ml Rx#:[id number] Norepinephrine 4 mg In 89.441 Sodium Chloride 0.9% 250 ml @ 0.03 MCG/KG/MIN 9. 332 mls/hr IV .Q24H [facility] Rx#:[id number] Phenylephrine 40 mg In 1025.482 58.748 Sodium Chloride 0.9% 250 ml @ 0.5 MCG/KG/MIN 15. 554 mls/hr IV .[id number] [facility] Rx#:[id number] Vasopressin 20 unit In 51 51 Sodium Chloride 0.9% 50 ml @ 0.03 UNITS/MIN 4.59 mls/hr IV .Q11H7M [facility] Rx# :[id number] Oral 250 Output: Urine 1550 1260 60 Other: Voiding Method Indwelling Catheter Indwelling Catheter ABP, PAP, CO, CI - Last Documented Arterial Blood Pressure 124/69 - Labs CBC & Chem 7: 07/29/23 05:15 07/29/23 15:25 Labs: Abnormal Lab Results - Last 24 Hours (Table) 07/29/23 07/29/23 07/29/23 Range/Units 00:40 05:10 05:15 WBC 34.2 H (3.8-10.6) k/uL RBC 4.18 L (4.30-5.90) m/uL Hgb 11.4 L (13.0-17.5) gm/dL Hct 34.2 L (39.0-53.0) % RDW 16.5 H (11.5-15.5) % Plt Count 50 L (150-450) k/uL ABG pH 7.32 L (7.35-7.45) ABG O2 Saturation 97.6 H (94-97) % Sodium (137-145) mmol/L Potassium (3.5-5.1) mmol/L Carbon Dioxide (22-30) mmol/L BUN (9-20) mg/dL Glucose (74-99) mg/dL POC Glucose (mg/dL) 164 H (70-110) mg/dL Calcium (8.4-10.2) mg/dL Lipase (23-300) U/L 07/29/23 07/29/23 07/29/23 Range/Units 05:15 05:15 08:31 WBC (3.8-10.6) k/uL RBC (4.30-5.90) m/uL Hgb (13.0-17.5) gm/dL Hct (39.0-53.0) % RDW (11.5-15.5) % Plt Count (150-450) k/uL ABG pH (7.35-7.45) ABG O2 Saturation (94-97) % Sodium 127 L (137-145) mmol/L Potassium 3.1 L (3.5-5.1) mmol/L Carbon Dioxide 18 L (22-30) mmol/L BUN 22 H (9-20) mg/dL Glucose 133 H (74-99) mg/dL POC Glucose (mg/dL) 161 H (70-110) mg/dL Calcium 5.5 L* (8.4-10.2) mg/dL Lipase 2209 H (23-300) U/L 07/29/23 07/29/23 07/29/23 Range/Units 09:04 12:44 18:01 WBC (3.8-10.6) k/uL RBC (4.30-5.90) m/uL Hgb (13.0-17.5) gm/dL Hct (39.0-53.0) % RDW (11.5-15.5) % Plt Count (150-450) k/uL ABG pH (7.35-7.45) ABG O2 Saturation 98.8 H (94-97) % Sodium (137-145) mmol/L Potassium (3.5-5.1) mmol/L Carbon Dioxide (22-30) mmol/L BUN (9-20) mg/dL Glucose (74-99) mg/dL POC Glucose (mg/dL) 124 H 123 H (70-110) mg/dL Calcium (8.4-10.2) mg/dL Lipase (23-300) U/L Microbiology - Last 24 Hours (Table) 07/26/23 11:15 Blood Culture - Preliminary Blood 07/26/23 11:00 Blood Culture - Preliminary Blood 07/26/23 12:16 Urine Culture - Final Urine,Voided Escherichia coli
[2023-07-29] MEDS: SODIUM CHLORIDE 0.9% 1,000 ML IV ONE (21:15)
[2023-07-29 22:11] LABS: African American GFR (CKD) >90 (>60 ml/min/1.73 sqM); Anion Gap 0 mmol/L; Blood Urea Nitrogen 18 mg/dL (9-20); Carbon Dioxide 21 mmol/L (22-30); Chloride 106 mmol/L (98-107); Glucose 109 mg/dL (74-99); Non-African American GFR(CKD) >90 (>60 ml/min/1.73 sqM); Potassium 3.8 mmol/L (3.5-5.1); Sodium 127 mmol/L (137-145)
[2023-07-29 22:15] LABS: Calcium 5.4 mg/dL (8.4-10.2)
[2023-07-30 00:17] LABS: Glucose,Whole Blood 126 mg/dL (70-110)
[2023-07-30 00:37] LABS: ABG Base Excess -4.8 mmol/L; ABG HCO3 23 mmol/L (21-25); ABG Oxygen Saturation 97.1 % (94-97); ABG PCO2 58 mmHg (35-45); ABG PH 7.21 (7.35-7.45); ABG PO2 81 mmHg (83-108); ABG TCO2 25 mmol/L (19-24)
[2023-07-30 03:59] LABS: Anisocytosis Slight; HCT 32.4 % (39.0-53.0); HGB 10.5 gm/dL (13.0-17.5); Hypochromasia Slight; MCH 26.8 pg (25.0-35.0); MCHC 32.2 g/dL (31.0-37.0); MCV 83.3 fL (80.0-100.0); Mean Platelet Volume 8.2; Platelet Count 27 k/uL (150-450); RDW 16.7 % (11.5-15.5); WBC 30.4 k/uL (3.8-10.6)
[2023-07-30 04:14] LABS: ALT 23 U/L (4-49); AST 46 U/L (17-59); African American GFR (CKD) >90 (>60 ml/min/1.73 sqM); Albumin 1.6 g/dL (3.5-5.0); Alkaline Phosphatase 101 U/L (38-126); Anion Gap 2 mmol/L; Blood Urea Nitrogen 16 mg/dL (9-20); Carbon Dioxide 21 mmol/L (22-30); Chloride 104 mmol/L (98-107); Glucose 104 mg/dL (74-99); Non-African American GFR(CKD) >90 (>60 ml/min/1.73 sqM); Potassium 3.9 mmol/L (3.5-5.1); Sodium 127 mmol/L (137-145); Total Bilirubin 0.9 mg/dL (0.2-1.3); Total Protein 3.8 g/dL (6.3-8.2)
[2023-07-30 04:31] LABS: Calcium 5.5 mg/dL (8.4-10.2)
[2023-07-30] MEDS: POTASSIUM CHLORIDE 10 MEQ in WATER FOR INJECTION 1 100ML.BAG IVPB SCH (04:57)
[2023-07-30 05:52] LABS: Glucose,Whole Blood 109 mg/dL (70-110)
[2023-07-30 08:05] LABS: ABG HCO3 23 mmol/L (21-25); ABG PCO2 43 mmHg (35-45); ABG PH 7.33 (7.35-7.45); ABG PO2 167 mmHg (83-108); ABG TCO2 24 mmol/L (19-24)
[2023-07-30 08:07] LABS: Allen Test Performed? no
--- NOTE | 2023-07-30 08:21 | XR ---
EXAMINATION TYPE: XR chest 1V portable DATE OF EXAM: 07/30/2023 Comparison: 07/28/2023 Clinical History: 57-year-old male CHF Findings: Limited by positioning of the chest and overlying artifacts and semiupright position. There is modera te cardiomegaly and worsening mid and lower lung opacities. Right IJ CVC tip at the lower SVC. Impression: Cardiomegaly with worsening, suspected moderate bilateral pleural effusions with adjacent atelectasis and/or consolidation.
--- NOTE | 2023-07-30 08:54 | P.PN ---
Subjective Progress Note Date: 07/30/23 Principal diagnosis: Bradycardia This is a very pleasant and unfortunate 57-year-old gentleman with a past medical history significant for history of quadriplegia secondary to injury related to hockey as well as history of urinary tract infection as well as multiple comorbid conditions. The patient lives at home and has a visiting nurse checking on him every other day. It was noted that he was hypotensive. He was experiencing symptoms of being tired and fatigued and has no energy and also experiencing symptoms of abdominal discomfort. He was brought to the hospital for further investigation. He was diagnosed with acute pancreatitis. Also he was diagnosed with possible UTI. He was hypotension requiring initially IV fluid with no response and subsequently he was started on norepinephrine to support his blood pressure. No symptoms of any chest pain or chest discomfort and no presyncope or syncope and no shortness of breath. We consulted to see the patient because of bradycardia. His heart rate has been in the 50s. The patient was asymptomatic with the bradycardia. No history of coronary artery disease or congestive heart failure or cardiac arrhythmia and he never seen a cutter out before. Further investigation performed including an EKG and that showed sinus mechanism with borderline first-degree AV block and PACs. Troponin came in to be unremarkable with the chest x-ray did not show any acute abnormalities. The blood work indicated possible acute pancreatitis and also he underwent a CT scan of the abdomen and pelvis. The patient was not on any AV jerson willi agents. No thyroid function test has performed nor echocardiogram as of yet. Examination revealed regular rhythm with a distant heart sounds and diminished breathing sounds bilaterally and atrophy of the upper and lower extremities. July 28, 2023 The patient was seen this morning. He continues to be hypotensive on vasopressors. He is not bradycardic anymore and currently he is slightly tachycardic but even that the heart rate has been coming down. The echo revealed normal LV systolic function. TSH and free T4 came in to be unremarkable. From the cardiovascular standpoint of view, I would continue the current medical regimen and continue supporting the blood pressure. Examination reveals regular rhythm with clear breathing sounds bilaterally and no edema was noted. July 29, 2023 The patient was seen and evaluated this morning. He continues to be hypotensive requiring vasopressors but we are coming down with the doses. His heart rate has improved. The echo showed normal LV systolic function with no significant valvular abnormalities. He underwent yesterday CT scan of the chest and that showed bilateral pleural effusion. Definitely he seems edematous. He might benefit from 1 dose of Lasix carefully giving the marginally low blood pressure. The examination revealed regular rhythm with a distant heart sounds and diminished breathing sounds bilaterally and mild bilateral lower extremities edema. July 30, 2023 The patient was seen and evaluated this morning. He seems to be slightly towards with some change in mental status/lethargy. Beside that he continues to be on vasopressors and the doses continues to be the same. He was given IV fluid yesterday. He seems to be in heart failure today with bilateral lower extremities edema which has definitely progressed compared to the day before and also he is requiring more oxygen and currently he is on nonrebreather. I am going to give the patient 20 mg of Lasix IV and monitor the urine output as well as continue supporting the blood pressure using vasopressors. The echo showed normal LV systolic function with no significant valvular abnormalities. The chest x-ray showed definitely bilateral pleural effusion and worse finding compared to before. The examination revealed regular rhythm with a distant heart sounds and diminished bilateral breathing sounds as well as bilateral lower extremities pitting edema was noted. Assessment Acute pancreatitis UTI/sepsis Hypotension require vasopressors Bradycardia which has resolved Fluid overload Quadriplegia Bilateral pleural effusion Multiple comorbid conditions Plan Continue current medical regimen Continue supporting the blood pressure Keep the patient IV diuretics once Continue to monitor the kidney function and electrolytes especially the sodium being low Objective - Vital Signs Vital signs: Vital Signs Temp 97 F L 07/30/23 04:00 Pulse 82 07/30/23 07:00 Resp 22 07/30/23 07:00 BP 117/76 07/30/23 07:00 Pulse Ox 100 07/30/23 07:00 FiO2 50 07/30/23 08:07 Intake & Output 07/29/23 07/30/23 07/30/23 18:59 06:59 18:59 Intake Total 2651.482 2576.014 Output Total 1260 1160 Balance 1075.588 0533.014 Weight 109.044 kg Intake: IV 1400 1700 Bicarb 550 Calcium Gluconate in NaCl 100 100 1 gm In Saline 1 100ml. bag @ 100 mls/hr IVPB ONCE ONE Rx#:[id number] Dextrose 5% in Water 1, 100 000 ml @ 50 mls/hr IV . Q20H [facility] Rx#:[id number] Dextrose 5% in Water 1, 650 50 000 ml @ 75 mls/hr IV . [id number] [facility] with Sodium Bicarb (1 Meq/ml) 150 ml Rx#:[id number] Meropenem 1 gm In Sodium 100 200 Chloride 0.9% 100 ml @ 33 .3 mls/hr IVPB Q8HR [facility] Rx#:[id number] Potassium Chloride 10 meq 200 In Water For Injection 1 100ml.bag @ 100 mls/hr IVPB Q1HR [facility] Rx#: [id number] Sodium Chloride 0.9% 1, 450 600 000 ml @ 50 mls/hr IV . Q20H [facility] Rx#:[id number] Intake, IV Titration 1251.482 876.014 Amount Dextrose 5% in Water 1, 50 000 ml @ 50 mls/hr IV . Q20H [facility] Rx#:[id number] Dextrose 5% in Water 1, 125 000 ml @ 75 mls/hr IV . [id number] [facility] with Sodium Bicarb (1 Meq/ml) 150 ml Rx#:[id number] Norepinephrine 4 mg In 8.866 Sodium Chloride 0.9% 250 ml @ 0.03 MCG/KG/MIN 9. 332 mls/hr IV .Q24H [facility] Rx#:[id number] Phenylephrine 40 mg In 1025.482 830.428 Sodium Chloride 0.9% 250 ml @ 0.5 MCG/KG/MIN 15. 554 mls/hr IV .[id number] [facility] Rx#:[id number] Vasopressin 20 unit In 51 36.72 Sodium Chloride 0.9% 50 ml @ 0.03 UNITS/MIN 4.59 mls/hr IV .Q11H7M [facility] Rx# :[id number] Output: Urine 1260 1160 Other: Voiding Method Indwelling Catheter Indwelling Catheter ABP, PAP, CO, CI - Last Documented Arterial Blood Pressure 132/76 - Labs CBC & Chem 7: 07/30/23 03:40 07/30/23 03:40 Labs: Abnormal Lab Results - Last 24 Hours (Table) 07/29/23 07/29/23 07/29/23 Range/Units 05:15 09:04 12:44 WBC (3.8-10.6) k/uL RBC (4.30-5.90) m/uL Hgb (13.0-17.5) gm/dL Hct (39.0-53.0) % RDW (11.5-15.5) % Plt Count (150-450) k/uL ABG pH (7.35-7.45) ABG pCO2 (35-45) mmHg ABG pO2 (83-108) mmHg ABG Total CO2 (19-24) mmol/L ABG O2 Saturation 98.8 H (94-97) % Sodium (137-145) mmol/L Carbon Dioxide (22-30) mmol/L Creatinine (0.66-1.25) mg/dL Glucose (74-99) mg/dL POC Glucose (mg/dL) 124 H (70-110) mg/dL Calcium (8.4-10.2) mg/dL Total Protein (6.3-8.2) g/dL Albumin (3.5-5.0) g/dL Lipase 2209 H (23-300) U/L 07/29/23 07/29/23 07/30/23 Range/Units 18:01 21:39 00:16 WBC (3.8-10.6) k/uL RBC (4.30-5.90) m/uL Hgb (13.0-17.5) gm/dL Hct (39.0-53.0) % RDW (11.5-15.5) % Plt Count (150-450) k/uL ABG pH (7.35-7.45) ABG pCO2 (35-45) mmHg ABG pO2 (83-108) mmHg ABG Total CO2 (19-24) mmol/L ABG O2 Saturation (94-97) % Sodium 127 L (137-145) mmol/L Carbon Dioxide 21 L (22-30) mmol/L Creatinine 0.64 L (0.66-1.25) mg/dL Glucose 109 H (74-99) mg/dL POC Glucose (mg/dL) 123 H 126 H (70-110) mg/dL Calcium 5.4 L* (8.4-10.2) mg/dL Total Protein (6.3-8.2) g/dL Albumin (3.5-5.0) g/dL Lipase (23-300) U/L 07/30/23 07/30/23 07/30/23 Range/Units 00:30 03:40 03:40 WBC 30.4 H (3.8-10.6) k/uL RBC 3.90 L (4.30-5.90) m/uL Hgb 10.5 L (13.0-17.5) gm/dL Hct 32.4 L (39.0-53.0) % RDW 16.7 H (11.5-15.5) % Plt Count 27 L (150-450) k/uL ABG pH 7.21 L (7.35-7.45) ABG pCO2 58 H (35-45) mmHg ABG pO2 81 L (83-108) mmHg ABG Total CO2 25 H (19-24) mmol/L ABG O2 Saturation 97.1 H (94-97) % Sodium 127 L (137-145) mmol/L Carbon Dioxide 21 L (22-30) mmol/L Creatinine 0.58 L (0.66-1.25) mg/dL Glucose 104 H (74-99) mg/dL POC Glucose (mg/dL) (70-110) mg/dL Calcium 5.5 L* (8.4-10.2) mg/dL Total Protein 3.8 L (6.3-8.2) g/dL Albumin 1.6 L (3.5-5.0) g/dL Lipase (23-300) U/L 07/30/23 Range/Units 08:03 WBC (3.8-10.6) k/uL RBC (4.30-5.90) m/uL Hgb (13.0-17.5) gm/dL Hct (39.0-53.0) % RDW (11.5-15.5) % Plt Count (150-450) k/uL ABG pH 7.33 L (7.35-7.45) ABG pCO2 (35-45) mmHg ABG pO2 167 H (83-108) mmHg ABG Total CO2 (19-24) mmol/L ABG O2 Saturation 100.0 H (94-97) % Sodium (137-145) mmol/L Carbon Dioxide (22-30) mmol/L Creatinine (0.66-1.25) mg/dL Glucose (74-99) mg/dL POC Glucose (mg/dL) (70-110) mg/dL Calcium (8.4-10.2) mg/dL Total Protein (6.3-8.2) g/dL Albumin (3.5-5.0) g/dL Lipase (23-300) U/L Microbiology - Last 24 Hours (Table) 07/26/23 11:15 Blood Culture - Preliminary Blood 07/26/23 11:00 Blood Culture - Preliminary Blood
--- NOTE | 2023-07-30 09:05 | P.PN ---
Subjective Progress Note Date: 07/30/23 Patient remains in the ICU. He is currently on CPAP. His abdomen has minimal pain and distention. On exam vital signs appear stable. Abdomen soft. Resolving peritonitis. Patient to receive supportive care. Objective - Vital Signs Vital signs: Vital Signs Temp 97 F L 07/30/23 04:00 Pulse 82 07/30/23 07:00 Resp 22 07/30/23 07:00 BP 117/76 07/30/23 07:00 Pulse Ox 100 07/30/23 07:00 FiO2 50 07/30/23 08:07 Intake & Output 07/29/23 07/30/23 07/30/23 18:59 06:59 18:59 Intake Total 2651.482 2576.014 173.63 Output Total 1260 1160 Balance 4540.234 4965.014 173.63 Weight 109.044 kg Intake: IV 1400 1700 Bicarb 550 Calcium Gluconate in NaCl 100 100 1 gm In Saline 1 100ml. bag @ 100 mls/hr IVPB ONCE ONE Rx#:[id number] Dextrose 5% in Water 1, 100 000 ml @ 50 mls/hr IV . Q20H [facility] Rx#:[id number] Dextrose 5% in Water 1, 650 50 000 ml @ 75 mls/hr IV . [id number] [facility] with Sodium Bicarb (1 Meq/ml) 150 ml Rx#:[id number] Meropenem 1 gm In Sodium 100 200 Chloride 0.9% 100 ml @ 33 .3 mls/hr IVPB Q8HR [facility] Rx#:[id number] Potassium Chloride 10 meq 200 In Water For Injection 1 100ml.bag @ 100 mls/hr IVPB Q1HR [facility] Rx#: [id number] Sodium Chloride 0.9% 1, 450 600 000 ml @ 50 mls/hr IV . Q20H [facility] Rx#:[id number] Intake, IV Titration 1251.482 876.014 173.63 Amount Dextrose 5% in Water 1, 50 000 ml @ 50 mls/hr IV . Q20H [facility] Rx#:[id number] Dextrose 5% in Water 1, 125 000 ml @ 75 mls/hr IV . [id number] [facility] with Sodium Bicarb (1 Meq/ml) 150 ml Rx#:[id number] Norepinephrine 4 mg In 8.866 Sodium Chloride 0.9% 250 ml @ 0.03 MCG/KG/MIN 9. 332 mls/hr IV .Q24H [facility] Rx#:[id number] Phenylephrine 40 mg In 1025.482 830.428 126.2 Sodium Chloride 0.9% 250 ml @ 0.5 MCG/KG/MIN 15. 554 mls/hr IV .[id number] [facility] Rx#:[id number] Vasopressin 20 unit In 51 36.72 47.43 Sodium Chloride 0.9% 50 ml @ 0.03 UNITS/MIN 4.59 mls/hr IV .Q11H7M [facility] Rx# :[id number] Output: Urine 1260 1160 Other: Voiding Method Indwelling Catheter Indwelling Catheter ABP, PAP, CO, CI - Last Documented Arterial Blood Pressure 132/76 - Labs CBC & Chem 7: 07/30/23 03:40 07/30/23 03:40 Labs: Abnormal Lab Results - Last 24 Hours (Table) 07/29/23 07/29/23 07/29/23 Range/Units 05:15 09:04 12:44 WBC (3.8-10.6) k/uL RBC (4.30-5.90) m/uL Hgb (13.0-17.5) gm/dL Hct (39.0-53.0) % RDW (11.5-15.5) % Plt Count (150-450) k/uL ABG pH (7.35-7.45) ABG pCO2 (35-45) mmHg ABG pO2 (83-108) mmHg ABG Total CO2 (19-24) mmol/L ABG O2 Saturation 98.8 H (94-97) % Sodium (137-145) mmol/L Carbon Dioxide (22-30) mmol/L Creatinine (0.66-1.25) mg/dL Glucose (74-99) mg/dL POC Glucose (mg/dL) 124 H (70-110) mg/dL Calcium (8.4-10.2) mg/dL Total Protein (6.3-8.2) g/dL Albumin (3.5-5.0) g/dL Lipase 2209 H (23-300) U/L 07/29/23 07/29/23 07/30/23 Range/Units 18:01 21:39 00:16 WBC (3.8-10.6) k/uL RBC (4.30-5.90) m/uL Hgb (13.0-17.5) gm/dL Hct (39.0-53.0) % RDW (11.5-15.5) % Plt Count (150-450) k/uL ABG pH (7.35-7.45) ABG pCO2 (35-45) mmHg ABG pO2 (83-108) mmHg ABG Total CO2 (19-24) mmol/L ABG O2 Saturation (94-97) % Sodium 127 L (137-145) mmol/L Carbon Dioxide 21 L (22-30) mmol/L Creatinine 0.64 L (0.66-1.25) mg/dL Glucose 109 H (74-99) mg/dL POC Glucose (mg/dL) 123 H 126 H (70-110) mg/dL Calcium 5.4 L* (8.4-10.2) mg/dL Total Protein (6.3-8.2) g/dL Albumin (3.5-5.0) g/dL Lipase (23-300) U/L 07/30/23 07/30/23 07/30/23 Range/Units 00:30 03:40 03:40 WBC 30.4 H (3.8-10.6) k/uL RBC 3.90 L (4.30-5.90) m/uL Hgb 10.5 L (13.0-17.5) gm/dL Hct 32.4 L (39.0-53.0) % RDW 16.7 H (11.5-15.5) % Plt Count 27 L (150-450) k/uL ABG pH 7.21 L (7.35-7.45) ABG pCO2 58 H (35-45) mmHg ABG pO2 81 L (83-108) mmHg ABG Total CO2 25 H (19-24) mmol/L ABG O2 Saturation 97.1 H (94-97) % Sodium 127 L (137-145) mmol/L Carbon Dioxide 21 L (22-30) mmol/L Creatinine 0.58 L (0.66-1.25) mg/dL Glucose 104 H (74-99) mg/dL POC Glucose (mg/dL) (70-110) mg/dL Calcium 5.5 L* (8.4-10.2) mg/dL Total Protein 3.8 L (6.3-8.2) g/dL Albumin 1.6 L (3.5-5.0) g/dL Lipase (23-300) U/L 07/30/23 Range/Units 08:03 WBC (3.8-10.6) k/uL RBC (4.30-5.90) m/uL Hgb (13.0-17.5) gm/dL Hct (39.0-53.0) % RDW (11.5-15.5) % Plt Count (150-450) k/uL ABG pH 7.33 L (7.35-7.45) ABG pCO2 (35-45) mmHg ABG pO2 167 H (83-108) mmHg ABG Total CO2 (19-24) mmol/L ABG O2 Saturation 100.0 H (94-97) % Sodium (137-145) mmol/L Carbon Dioxide (22-30) mmol/L Creatinine (0.66-1.25) mg/dL Glucose (74-99) mg/dL POC Glucose (mg/dL) (70-110) mg/dL Calcium (8.4-10.2) mg/dL Total Protein (6.3-8.2) g/dL Albumin (3.5-5.0) g/dL Lipase (23-300) U/L Microbiology - Last 24 Hours (Table) 07/26/23 11:15 Blood Culture - Preliminary Blood 07/26/23 11:00 Blood Culture - Preliminary Blood
[2023-07-30] MEDS: FUROSEMIDE 10 MG/ML 2 ML VIAL IV ONE (09:39)
[2023-07-30] MEDS: CALCIUM GLUCONATE IN NACL 1 GM in SALINE 1 100ML.BAG IVPB ONE (09:39)
--- NOTE | 2023-07-30 11:34 | P.PN ---
Subjective Progress Note Date: 07/30/23 * 57-year-old male who presented to the emergency department with complaints of nausea vomiting diarrhea and generalized weakness. 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 Patient had a visiting nurse and was noted to be hypotensive so he was brought to the hospital for further evaluation. Patient was also noted to be bradycardic. They admitted him to the ICU for sepsis and hypotension which she has been requiring vasopressors. He states that he has chronic constipation and has a bowel regimen. Imaging CT abdomen pelvis with contrast reports prominent fluid distention of the stomach and duodenum. There is also scattered fluid throughout the small bowel. Duodenum and jejunum show mucosal hyperemia. In addition there is circumferential wall thickening of the mid to distal sigmoid colon and rectum. Correlate for gastroenteritis as well as nonspecific mild to moderate distal colitis. Mclaughlin catheter present. Collapsed bladder shows wall thickening as well. Correlate to exclude cystitis. Possible mild reflux esophagitis. Atrophic bilateral kidneys but with delayed excretion may reflect acute on chronic kidney injury. Left-sided decubitus ulcer overlying the ischial tuberosity. Soft tissue thickening directly abuts the posterior left hip and left ischium no discrete osseous destruction. Probably relating to healing granulation tissue. Clinically correlate. * Abdominal ultrasound reports no evidence for acute process. No evidence for obstructive uropathy. Right renal calculi. Ascites and right upper quadrant. Coarsened echotexture to the liver correlate for hepatocellular disease. * Labs WBC 22 hemoglobin 13.6 hematocrit 42 platelet count 94,000 sodium 129 potassium 3.1 BUN 41 creatinine 0.7 total bilirubin 3.1 conjugated bili 0.4 unconjugated bili 2.0 AST 31 ALT 31 alkaline phosphatase 357 lipase 9628 * 07/28/23 : patient seen and evaluated bedside continue with pressure support, appreciate input from infectious disease, CT chest completed * 07/29/23 : patient seen and evaluated bedside,workup reviewed potassium replaced, appreciate input from cardiology as well as medical ICU team.calcium replaced patient weaned off norepinephrine. Vasopressin and Hemant-Synephrine running. * 07/30/23: Patient seen and evaluated in medical ICU, patient continues to remain critically ill. Patient weaned off hydrocortisone, continue on pressor support, receiving IV antibiotics including IV meropenem managed by infectious disease. WBC count and hematocrit trending down. Calcium replaced. Patient is alert and oriented to person place and situation. PHYSICAL EXAMINATION: GENERAL: The patient is alert and oriented x 3 lethargic, ill appearance Mclaughlin catheter in place HEENT: Pupils are round and equally reacting to light. EOMI. No conjunctival pallor. Normocephalic, atraumatic. No pharyngeal erythema. No thyromegaly. CARDIOVASCULAR: S1 and S2 present. No murmurs, rubs, or gallops. PULMONARY: Chest is clear to auscultation, no wheezing or crackles. ABDOMEN: Soft, nontender, nondistended, normoactive bowel sounds. No palpable organomegaly. MUSCULOSKELETAL: No joint swelling or deformity. EXTREMITIES: pedal edema. NEUROLOGICAL: Is at baseline Assessment and plan * Septic shock with urinary tract infection * Acute pancreatitis * Stage III pressure ulcer left buttock, stage II pressure ulcer right hip * History of quadriplegia with indwelling Mclaughlin catheter in place * To [place] acidosis secondary to sepsis * Hyponatremia * history of seizure disorder * In regards to septic shock, continue patient on resuscitation, patient on pressor support, arterial line in place managed by medical ICU. Patient on vasopressin and phenylephrine. Levophed discontinued * Continue to monitor intake and output * blood cultures collected * urine cultures collected * continue broad-spectrum antibiotic receiving IV meropenem infectious disease on consult * In regards to pancreatitis continue fluid resuscitation follow-up on lipase levels, CT abdomen pelvis reviewed * In regards to pressure ulcer, patient seen by wound care team * # History of seizure disorder continue patient on Keppra * Patient on heparin for DVT prophylaxis CODE STATUS full code * Remains critically ill secondary to underlying comorbidities Objective - Vital Signs Vital signs: Vital Signs Temp 97 F L 07/30/23 04:00 Pulse 82 07/30/23 07:00 Resp 22 07/30/23 07:00 BP 117/76 07/30/23 07:00 Pulse Ox 100 07/30/23 07:00 FiO2 50 07/30/23 08:07 Intake & Output 07/29/23 07/30/23 07/30/23 18:59 06:59 18:59 Intake Total 2651.482 2576.014 Output Total 1260 1160 Balance 6280.771 7507.014 Weight 109.044 kg Intake: IV 1400 1700 Bicarb 550 Calcium Gluconate in NaCl 100 100 1 gm In Saline 1 100ml. bag @ 100 mls/hr IVPB ONCE ONE Rx#:[id number] Dextrose 5% in Water 1, 100 000 ml @ 50 mls/hr IV . Q20H [facility] Rx#:[id number] Dextrose 5% in Water 1, 650 50 000 ml @ 75 mls/hr IV . [id number] [facility] with Sodium Bicarb (1 Meq/ml) 150 ml Rx#:[id number] Meropenem 1 gm In Sodium 100 200 Chloride 0.9% 100 ml @ 33 .3 mls/hr IVPB Q8HR [facility] Rx#:[id number] Potassium Chloride 10 meq 200 In Water For Injection 1 100ml.bag @ 100 mls/hr IVPB Q1HR [facility] Rx#: [id number] Sodium Chloride 0.9% 1, 450 600 000 ml @ 50 mls/hr IV . Q20H [facility] Rx#:[id number] Intake, IV Titration 1251.482 876.014 Amount Dextrose 5% in Water 1, 50 000 ml @ 50 mls/hr IV . Q20H [facility] Rx#:[id number] Dextrose 5% in Water 1, 125 000 ml @ 75 mls/hr IV . [id number] [facility] with Sodium Bicarb (1 Meq/ml) 150 ml Rx#:[id number] Norepinephrine 4 mg In 8.866 Sodium Chloride 0.9% 250 ml @ 0.03 MCG/KG/MIN 9. 332 mls/hr IV .Q24H [facility] Rx#:[id number] Phenylephrine 40 mg In 1025.482 830.428 Sodium Chloride 0.9% 250 ml @ 0.5 MCG/KG/MIN 15. 554 mls/hr IV .[id number] [facility] Rx#:[id number] Vasopressin 20 unit In 51 36.72 Sodium Chloride 0.9% 50 ml @ 0.03 UNITS/MIN 4.59 mls/hr IV .Q11H7M [facility] Rx# :[id number] Output: Urine 1260 1160 Other: Voiding Method Indwelling Catheter Indwelling Catheter ABP, PAP, CO, CI - Last Documented Arterial Blood Pressure 132/76 - Labs CBC & Chem 7: 07/30/23 03:40 07/30/23 03:40 Labs: Abnormal Lab Results - Last 24 Hours (Table) 07/29/23 07/29/23 07/29/23 Range/Units 05:15 09:04 12:44 WBC (3.8-10.6) k/uL RBC (4.30-5.90) m/uL Hgb (13.0-17.5) gm/dL Hct (39.0-53.0) % RDW (11.5-15.5) % Plt Count (150-450) k/uL ABG pH (7.35-7.45) ABG pCO2 (35-45) mmHg ABG pO2 (83-108) mmHg ABG Total CO2 (19-24) mmol/L ABG O2 Saturation 98.8 H (94-97) % Sodium (137-145) mmol/L Carbon Dioxide (22-30) mmol/L Creatinine (0.66-1.25) mg/dL Glucose (74-99) mg/dL POC Glucose (mg/dL) 124 H (70-110) mg/dL Calcium (8.4-10.2) mg/dL Total Protein (6.3-8.2) g/dL Albumin (3.5-5.0) g/dL Lipase 2209 H (23-300) U/L 07/29/23 07/29/23 07/30/23 Range/Units 18:01 21:39 00:16 WBC (3.8-10.6) k/uL RBC (4.30-5.90) m/uL Hgb (13.0-17.5) gm/dL Hct (39.0-53.0) % RDW (11.5-15.5) % Plt Count (150-450) k/uL ABG pH (7.35-7.45) ABG pCO2 (35-45) mmHg ABG pO2 (83-108) mmHg ABG Total CO2 (19-24) mmol/L ABG O2 Saturation (94-97) % Sodium 127 L (137-145) mmol/L Carbon Dioxide 21 L (22-30) mmol/L Creatinine 0.64 L (0.66-1.25) mg/dL Glucose 109 H (74-99) mg/dL POC Glucose (mg/dL) 123 H 126 H (70-110) mg/dL Calcium 5.4 L* (8.4-10.2) mg/dL Total Protein (6.3-8.2) g/dL Albumin (3.5-5.0) g/dL Lipase (23-300) U/L 07/30/23 07/30/23 07/30/23 Range/Units 00:30 03:40 03:40 WBC 30.4 H (3.8-10.6) k/uL RBC 3.90 L (4.30-5.90) m/uL Hgb 10.5 L (13.0-17.5) gm/dL Hct 32.4 L (39.0-53.0) % RDW 16.7 H (11.5-15.5) % Plt Count 27 L (150-450) k/uL ABG pH 7.21 L (7.35-7.45) ABG pCO2 58 H (35-45) mmHg ABG pO2 81 L (83-108) mmHg ABG Total CO2 25 H (19-24) mmol/L ABG O2 Saturation 97.1 H (94-97) % Sodium 127 L (137-145) mmol/L Carbon Dioxide 21 L (22-30) mmol/L Creatinine 0.58 L (0.66-1.25) mg/dL Glucose 104 H (74-99) mg/dL POC Glucose (mg/dL) (70-110) mg/dL Calcium 5.5 L* (8.4-10.2) mg/dL Total Protein 3.8 L (6.3-8.2) g/dL Albumin 1.6 L (3.5-5.0) g/dL Lipase (23-300) U/L 07/30/23 Range/Units 08:03 WBC (3.8-10.6) k/uL RBC (4.30-5.90) m/uL Hgb (13.0-17.5) gm/dL Hct (39.0-53.0) % RDW (11.5-15.5) % Plt Count (150-450) k/uL ABG pH 7.33 L (7.35-7.45) ABG pCO2 (35-45) mmHg ABG pO2 167 H (83-108) mmHg ABG Total CO2 (19-24) mmol/L ABG O2 Saturation 100.0 H (94-97) % Sodium (137-145) mmol/L Carbon Dioxide (22-30) mmol/L Creatinine (0.66-1.25) mg/dL Glucose (74-99) mg/dL POC Glucose (mg/dL) (70-110) mg/dL Calcium (8.4-10.2) mg/dL Total Protein (6.3-8.2) g/dL Albumin (3.5-5.0) g/dL Lipase (23-300) U/L Microbiology - Last 24 Hours (Table) 07/26/23 11:15 Blood Culture - Preliminary Blood 07/26/23 11:00 Blood Culture - Preliminary Blood
[2023-07-30 12:04] LABS: Glucose,Whole Blood 92 mg/dL (70-110)
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
[2023-07-30 18:49] LABS: Glucose,Whole Blood 102 mg/dL (70-110)
[2023-07-31] LABS: Glucose,Whole Blood 79 mg/dL (70-110)
[2023-07-31 04:21] LABS: Glucose,Whole Blood 66 mg/dL (70-110)
[2023-07-31 04:36] LABS: Anisocytosis Slight; HCT 32.8 % (39.0-53.0); HGB 10.2 gm/dL (13.0-17.5); Hypochromasia Slight; MCH 26.6 pg (25.0-35.0); MCHC 31.2 g/dL (31.0-37.0); MCV 85.3 fL (80.0-100.0); Mean Platelet Volume 8.6; RBC 3.85 m/uL (4.30-5.90); RDW 17.1 % (11.5-15.5); WBC 31.4 k/uL (3.8-10.6)
[2023-07-31 04:44] LABS: African American GFR (CKD) >90 (>60 ml/min/1.73 sqM); Anion Gap 3 mmol/L; Blood Urea Nitrogen 13 mg/dL (9-20); Carbon Dioxide 23 mmol/L (22-30); Chloride 104 mmol/L (98-107); Glucose 67 mg/dL (74-99); Non-African American GFR(CKD) >90 (>60 ml/min/1.73 sqM); Potassium 4.7 mmol/L (3.5-5.1); Sodium 130 mmol/L (137-145)
[2023-07-31 04:56] LABS: Platelet Count 23 k/uL (150-450)
[2023-07-31 05:50] LABS: Glucose,Whole Blood 68 mg/dL (70-110)
[2023-07-31] MEDS: DEXTROSE 50% SYRINGE 50 ML IVP STA (06:11)
[2023-07-31 06:19] LABS: ALT 39 U/L (4-49); AST 64 U/L (17-59); Albumin 1.8 g/dL (3.5-5.0); Alkaline Phosphatase 126 U/L (38-126); Bilirubin, Delta 0.6 mg/dL (0.0-0.2); Bilirubin,Unconjugated 0.2 mg/dL (0.0-1.1); Total Bilirubin 0.8 mg/dL (0.2-1.3)
[2023-07-31 06:57] LABS: Glucose,Whole Blood 107 mg/dL (70-110)
[2023-07-31 08:04] LABS: ABG Base Excess -4.3 mmol/L; ABG HCO3 25 mmol/L (21-25); ABG Oxygen Saturation 99.1 % (94-97); ABG PCO2 69 mmHg (35-45); ABG PO2 120 mmHg (83-108); ABG TCO2 27 mmol/L (19-24); Allen Test Performed? Yes
[2023-07-31 08:06] LABS: ABG PH 7.16 (7.35-7.45)
--- NOTE | 2023-07-31 08:35 | XR ---
EXAMINATION TYPE: XR chest 1V portable DATE OF EXAM: 07/31/2023 Comparison: 07/30/2023 Clinical History: 57-year-old male bilateral pleural effusions Findings: Right IJ CVC tip at the mid to lower SVC level. Heart margin is obscured by adjacent pleural parenchy mal opacity. Relative abnormal lucencies. Moderate bilateral pleural effusions, left greater than rig ht persist. Worsening retrocardiac and left midlung air bronchograms. Impression: Ongoing moderate bilateral pleural effusions with adjacent atelectasis and/or consolidation, left gre ater right. Left perihilar and lower lobe air bronchograms are worsening suggesting worsening airspac e disease.
[2023-07-31] MEDS: NOREPINEPHRINE 32 MG in SODIUM CHLORIDE 0.9% 218 ML IV SCH (11:24)
[2023-07-31] MEDS: CALCIUM GLUCONATE IN NACL 1 GM in SALINE 1 100ML.BAG IVPB ONE (11:25)
[2023-07-31] MEDS: LACTULOSE 20 GM/30 ML CUP PO ONE (11:40)
--- NOTE | 2023-07-31 12:00 | P.PN ---
Subjective Progress Note Date: 07/31/23 Patient is a 57-year-old white male with past medical history significant for quadriplegia from a hockey accident, seizure disorder, chronic decubitus pressure ulcer and evaluated by wound care every other day, chronic indwelling urinary catheter with frequent urinary tract infections. Patient presented to the emergency room yesterday afternoon complaining mostly of reduced appetite, nausea, lower nonradiating abdominal pain, and generalized weakness. Patient lives at home and is seen by the visiting [facility] [employer]. Patient states that he was recently treated for urinary tract infection outpatient with tetracycline. Most recent urine culture collected from 06/23/23 positive for E. coli and Pseudomonas aeruginosa. Preliminary urinalysis positive for leukocyte Estrace and pyuria. CBC on arrival: WBC count 15.2, hemoglobin 14.5, hematocrit 42.4, platelets 97. BMP on arrival: Sodium 120, potassium 4.1, chloride 87, serum bicarb 21, BUN 67, creatinine 0.99, glucose 90. Troponins less than 0.012 x 2. EKG consistent with sinus bradycardia and chronic T wave inversion in the anterior leads no acute ischemic changes. Total bilirubin 3.3. AST 42, ALT 38, ALP 171. Amylase and lipase 151 and 1220 respectively. Patient denies history of pancreatitis. Denies history of gallstones. Does not drink alcohol. Abdominal pain is described as lower and medial, nonradiating. Sensation is impaired. He does have nausea without any actual emesis. No reported diarrhea, iker bloody bowel movements, or melena. CT of the abdomen and pelvis demonstrated a gallbladder and pancreas within normal limits. No reported peripancreatic fat stranding, abscesses, necrosis. No reported cholelithiasis. There was prominent fluid distention of the stomach and duodenum. The duodenum and jejunum show mucosal hyperemia and circumferential wall thickening of the mid to distal sigmoid colon and rectum. Findings concerning for gastroenteritis and possible mild to moderate distal colitis. There was mild reflux esophagitis. There is bladder wall thickening concerning for possible cystitis. Atrophic bilateral kidneys, with delayed excretion may reflect acute on chronic kidney disease. There was a left side decubitus ulcer over the ischial tuberosity. There was soft tissue thickening abutting the posterior left hip and left ischium. No discrete osseous destruction. We were asked to evaluate this patient last night due to concerns of hypotension refractory to aggressive fluid resuscitation with a total of 5 L normal saline bolus, and will require norepinephrine infusion for blood pressure support. Patient is currently in the emergency room. He is lying in bed, on room air, no acute distress. Chest x-ray does not show any acute cardiopulmonary process. Blood pressure currently 80/48 mmHg. Heart rate is sinus bradycardia in the 50s. Normal saline is concurrently running at 130 MLS per hour. Patient does have a urinary catheter, and the urometer is full. Urine is yellow and cloudy. Currently afebrile. Empirically covered on Zosyn. Patient will be transferred to [place] [id number] once bed available. Patient was reevaluated today on 07/28/2023, patient remains in the ICU, h emodynamically unstable, requiring multiple pressors. He is now on norepinephrine at 0.12 mcg/kg/min he is also on vasopressin at 0.04 units/h, on Hemant-Synephrine at 2 mcg/kg/min, patient is receiving D5W with 3 A of bicarb for his severe metabolic acidosis at 150 cc/h, he is also receiving intermittent bicarb IV push, patient is on room air, not in distress, but his ABG is marginal with a pO2 of 74 pCO2 of 25 pH of 7.34, bicarb this morning is 8. His white count is as high as 43,000. Patient is empirically on Zosyn, he received multiple fluid boluses almost 6 L of fluids nonetheless his blood pressure remains marginal. Today I went ahead and placed a right IJ triple-lumen catheter in this patient, and will transition his drips to the central line. Labs today showed bicarb of 8 sodium 129 potassium 3.3 chloride 112 BUN is 34 creatinine 0.89. WBC count is 43,000, platelets are 91,000 calcium is 6.4, serum albumin is 1.7, lipase still high at 7583, improving compared to yesterday [id number] it is surprising that the patient looks comfortable in spite of all the metabolic abnormalities noted and in spite of the fact that he is requiring multiple pressors to maintain a barely adequate blood pressure patient has been tachycardic, hence his norepinephrine will be titrated down, and I started the patient on Hemant-Synephrine instead. And seems to be working better with less tachycardia. Considering the profound hypotension, I will give the patient a dose of Solu-Cortef 100 mg IV push, and decide whether to continue with Solu- Cortef depending on the response to treatment Reeval on 07/29/2023, patient remains in the ICU, continues to require Hemant- Synephrine and vasopressin, I plan to discontinue his Hemant-Synephrine and gradually taper and possibly discontinue vasopressin today if tolerated. Patient is now off norepinephrine. Remains on a bicarb drip which I cut it down to 75 cc/h patient did receive Solu-Cortef at 100 mg IV push every 8 hours and apparently his baseline serum cortisol few days ago was 18.8 nonetheless the patient did improve with Solu-Cortef, and his blood pressure significantly normalized. To the point that we had him now off Levophed, and may discontinue Hemant-Synephrine in the next couple of hours. The patient is anxious, he seems to be confused, and he keeps saying that I am confused today compared to yesterday. Patient again is anxious and he was given 0.5 mg of Ativan IV push I ordered a stat ABG as he was complaining of being confused and showed a pO2 of 88 pCO2 36 pH of 7.40 for some reason his admitting physician ordered a CT angiogram of the chest although the presentation on this patient is not a presentation of any suspicion or any index of suspicion for pulmonary embolism. As expected CT angio did not show evidence of pulmonary embolism it did show findings of atelectasis and pleural effusions which were seen already on chest x-ray. Patient remains on antibiotics for his UTI, he is on Merrem as recommended by infectious disease on the case. Today I cut down his Solu-Cortef to 50 mg IV push every 12 hours thinking that Solu-Cortef may be making him a bit confused. His urinalysis and urine cultures were noted, patient has E. coli in the urine.. E. coli is not ESBL E. coli, nonetheless patient was placed on Merrem as per infectious disease on the case. Blood cultures are negative. Urine output is over 200 cc/h, hence I will cut down his IV fluid to 50 cc/h and cut down his bicarb down to 75 cc/h patient received at least 6 L of fluid boluses yesterday and upon admission to address his low blood pressure considering patient has low sodium I am changing his IV fluid 2.9 instead of D5 4 5, and I am keeping him on a bicarb drip. WBC count is down to 34.2 hemoglobin 11.4. Renal profile is normal bicarb is up to 18 lipase is improving it is down to 05/12/2008. Calcium is low at 5.5, however his albumin is 1.7, patient did receive 1 amp of calcium gluconate Patient was reevaluated today on 07/30/2023, remains in the ICU, remains hypotensive requiring multiple pressors and drips to maintain adequate blood pre ssure. Patient remains on vasopressin at 0.04 units/h, Hemant-Synephrine at 1.8 mcg/kg/min norepinephrine is presently on hold, he is on IV fluids cut down to 50 cc/h bicarb was discontinued today, patient was on a bicarb drip. At night I had to place the patient on BiPAP 12/6/50% for worsening hypercapnia and this morning the patient is back to 4 L nasal cannula. Follow-up ABG this morning on 4 L showed a pO2 of 167 pCO2 43 pH of 7.33 platelets are down to 27,000 because of his sepsis and we held heparin for DVT prophylaxis. His IV fluids will be cut down to KVO. Patient will receive a gentle diuresis/Lasix. Patient remains on antibiotics for his E. coli UTI and sepsis. WBC count remains high at 30.4 hemoglobin 10.5 basic metabolic profile showed sodium of 127, likely hypervolemic hyponatremia chest x-ray is showing cardiomegaly with worsening bilateral pleural effusions hence Lasix was given earlier today again IV fluid cut down to KVO patient continues to have excellent urine output roughly about 100 cc/h. The patient is seen today July 31, 2023 in follow-up in the intensive care unit. He is currently on BiPAP 12/6 and 40% FiO2. He had blood gases earlier that revealed a PaO2 of 120, pCO2 of 69 and a pH of 7.16 while on 4 L nasal cannula. He is still having issues with confusion at times. He is on vasopressin at 0.04 units/min. Hemant-Synephrine at 1.8 mcg/kg/min. N orepinephrine at 0.03 mcg/kg/min. Normal saline at KVO. He is on antibiotics in the form of meropenem. Urinary tract infection secondary to E. coli. Chest x-ray reveals ongoing moderate bilateral pleural effusions with adjacent atelectasis and/or consolidation left greater than right. White count 31.4. Hemoglobin 10.2. Platelets 23,000. Sodium 130. Potassium 4.7. Bicarb 23. BUN 13. Creatinine 0.63. Ionized calcium 4.0. AST 64. ALT 39. Objective - Vital Signs Vital signs: Vital Signs Temp 97.9 F 07/31/23 08:00 Pulse 71 07/31/23 10:00 Resp 13 07/31/23 10:00 BP 104/43 07/31/23 10:00 Pulse Ox 99 07/31/23 10:00 FiO2 40 07/31/23 08:51 Intake & Output 07/30/23 07/31/23 07/31/23 18:59 06:59 18:59 Intake Total 1673.585 999.554 325.808 Output Total 2325 755 395 Balance -651.415 244.554 -69.192 Weight 109.225 kg Intake: IV 610 210 40 Bicarb 50 Meropenem 1 gm In Sodium 400 100 Chloride 0.9% 100 ml @ 33 .3 mls/hr IVPB Q8HR [facility] Rx#:[id number] Sodium Chloride 0.9% 1, 160 110 40 000 ml @ 10 mls/hr IV . Q24H [facility] Rx#:[id number] Intake, IV Titration 1063.585 789.554 285.808 Amount Calcium Gluconate in NaCl 100 1 gm In Saline 1 100ml. bag @ 100 mls/hr IVPB ONCE ONE Rx#:[id number] Meropenem 1 gm In Sodium 100 100 Chloride 0.9% 100 ml @ 33 .3 mls/hr IVPB Q8HR [facility] Rx#:[id number] Phenylephrine 40 mg In 765.155 741.308 141.54 Sodium Chloride 0.9% 250 ml @ 0.5 MCG/KG/MIN 15. 554 mls/hr IV .[id number] [facility] Rx#:[id number] Vasopressin 20 unit In 98.43 48.246 44.268 Sodium Chloride 0.9% 50 ml @ 0.03 UNITS/MIN 4.59 mls/hr IV .[id number] [facility] Rx# :[id number] Output: Urine 2325 755 395 Other: Voiding Method Indwelling Catheter Indwelling Catheter Indwelling Catheter ABP, PAP, CO, CI - Last Documented Arterial Blood Pressure 85/46 - Exam GENERAL EXAM: Revealed a 57-year-old male obese, on BiPAP, confused at times HEAD: Normocephalic and atraumatic EYES: Normal reaction of pupils, equal size. NOSE: Clear with pink turbinates. THROAT: No erythema or exudates. NECK: No masses, no JVD. CHEST: No chest wall deformity. LUNGS: Equal air entry with basilar crackles, scattered rhonchi. No conversational dyspnea. CVS: S1 and S2 normal with no audible murmur, regular rhythm. No extra heart sounds ABDOMEN: No hepatosplenomegaly, active bowel sounds, no guarding or rigidity. Facial grimacing with palpation in the suprapubic region. SKIN: No rashes. Left buttock wound with pink/red granulation tissue, no purulent drainage. CENTRAL NERVOUS SYSTEM: Alert and oriented x 3, normal speech, no facial symmetry, all 4 extremities are atrophied and contracted. Extremity strength flaccid EXTREMITIES: There is bilateral lower extremity pitting edema, greater on the left. No clubbing, or cyanosis. Peripheral pulses are intact. - Labs CBC & Chem 7: 07/31/23 04:30 07/31/23 04:30 Labs: Abnormal Lab Results - Last 24 Hours (Table) 07/31/23 07/31/23 07/31/23 Range/Units 04:19 04:30 04:30 WBC 31.4 H (3.8-10.6) k/uL RBC 3.85 L (4.30-5.90) m/uL Hgb 10.2 L (13.0-17.5) gm/dL Hct 32.8 L (39.0-53.0) % RDW 17.1 H (11.5-15.5) % Plt Count 23 L (150-450) k/uL ABG pH (7.35-7.45) ABG pCO2 (35-45) mmHg ABG pO2 (83-108) mmHg ABG Total CO2 (19-24) mmol/L ABG O2 Saturation (94-97) % Sodium 130 L (137-145) mmol/L Creatinine 0.63 L (0.66-1.25) mg/dL Glucose 67 L (74-99) mg/dL POC Glucose (mg/dL) 66 L (70-110) mg/dL Calcium 6.0 L* (8.4-10.2) mg/dL Ionized Calcium Yuval (4.5-5.3) mg/dL Delta Bilirubin 0.6 H (0.0-0.2) mg/dL AST 64 H (17-59) U/L Total Protein 4.0 L (6.3-8.2) g/dL Albumin 1.8 L (3.5-5.0) g/dL 07/31/23 07/31/23 07/31/23 Range/Units 05:49 08:01 09:08 WBC (3.8-10.6) k/uL RBC (4.30-5.90) m/uL Hgb (13.0-17.5) gm/dL Hct (39.0-53.0) % RDW (11.5-15.5) % Plt Count (150-450) k/uL ABG pH 7.16 L* (7.35-7.45) ABG pCO2 69 H (35-45) mmHg ABG pO2 120 H (83-108) mmHg ABG Total CO2 27 H (19-24) mmol/L ABG O2 Saturation 99.1 H (94-97) % Sodium (137-145) mmol/L Creatinine (0.66-1.25) mg/dL Glucose (74-99) mg/dL POC Glucose (mg/dL) 68 L (70-110) mg/dL Calcium (8.4-10.2) mg/dL Ionized Calcium Yuval 4.0 L (4.5-5.3) mg/dL Delta Bilirubin (0.0-0.2) mg/dL AST (17-59) U/L Total Protein (6.3-8.2) g/dL Albumin (3.5-5.0) g/dL Assessment and Plan Assessment: Profound hypotension secondary to septic shock, acute pancreatitis, and profound hypovolemia, remains on multiple pressors Acute E. coli urinary tract infection with sepsis and septic shock Acute pancreatitis, improving with improving lipase Possible acute gastroenteritis and colitis Acute hypoxemic and hypercapnic respiratory failure secondary to bilateral pleural effusions and adjacent atelectasis left greater than right Severe dehydration and poor oral intake Hypovolemic hyponatremia, likely secondary to above Quadriplegic, secondary to traumatic hockey accident Neurogenic bladder and chronic indwelling urinary catheter Chronic decubitus pressure ulcer History of seizure disorder, last reported seizure over 5 years ago, maintained on Keppra Left lower extremity edema, venous Doppler questioned chronic thrombosis of right CFV GERD with esophagitis History of hyperlipidemia Plan: The patient was seen and evaluated Chest x-ray, ABGs, labs and medications reviewed Continue on BiPAP support for now Remains on bronchodilators Remains on meropenem Titrate down/off the Hemant-Synephrine May need to resume norepinephrine if needed Continue vasopressin Prognosis is guarded We will continue to follow I have personally seen and examined the patient, performed the documentation and the assessment and plan as written. Number of minutes spent on the visit: 10.
[2023-07-31 12:03] LABS: Glucose,Whole Blood 78 mg/dL (70-110)
--- NOTE | 2023-07-31 15:54 | P.PN ---
Subjective Bradycardia This is a very pleasant and unfortunate 57-year-old gentleman with a past medical history significant for history of quadriplegia secondary to injury related to hockey as well as history of urinary tract infection as well as multiple comorbid conditions. The patient lives at home and has a visiting nurse checking on him every other day. It was noted that he was hypotensive. He was experiencing symptoms of being tired and fatigued and has no energy and also experiencing symptoms of abdominal discomfort. He was brought to the [facility] for further investigation. He was diagnosed with acute pancreatitis. Also he was diagnosed with possible UTI. He was hypotension requiring initially IV fluid with no response and subsequently he was started on norepinephrine to support his blood pressure. No symptoms of any chest pain or chest discomfort and no presyncope or syncope and no shortness of breath. We consulted to see the patient because of bradycardia. His heart rate has been in the 50s. The patient was asymptomatic with the bradycardia. No history of coronary artery disease or congestive heart failure or cardiac arrhythmia and he never seen a hospital corpsman before. Further investigation performed including an EKG and that showed sinus mechanism with borderline first-degree AV block and PACs. Troponin came in to be unremarkable with the chest x-ray did not show any acute abnormalities. The blood work indicated possible acute pancreatitis and also he underwent a CT scan of the abdomen and pelvis. The patient was not on any AV jerson willi agents. No thyroid function test has performed nor echocardiogram as of yet. Examination revealed regular rhythm with a distant heart sounds and diminished breathing sounds bilaterally and atrophy of the upper and lower extremities. July 28, 2023 The patient was seen this morning. He continues to be hypotensive on vasopressors. He is not bradycardic anymore and currently he is slightly tachycardic but even that the heart rate has been coming down. The echo revealed normal LV systolic function. TSH and free T4 came in to be unremarkable. From the cardiovascular standpoint of view, I would continue the current medical regimen and continue supporting the blood pressure. Examination reveals regular rhythm with clear breathing sounds bilaterally and no edema was noted. July 29, 2023 The patient was seen and evaluated this morning. He continues to be hypotensive requiring vasopressors but we are coming down with the doses. His heart rate has improved. The echo showed normal LV systolic function with no significant valvular abnormalities. He underwent yesterday CT scan of the chest and that showed bilateral pleural effusion. Definitely he seems edematous. He might benefit from 1 dose of Lasix carefully giving the marginally low blood pressure. The examination revealed regular rhythm with a distant heart sounds and diminished breathing sounds bilaterally and mild bilateral lower extremities edema. July 30, 2023 The patient was seen and evaluated this morning. He seems to be slightly towards with some change in mental status/lethargy. Beside that he continues to be on vasopressors and the doses continues to be the same. He was given IV fluid yesterday. He seems to be in heart failure today with bilateral lower extremities edema which has definitely progressed compared to the day before and also he is requiring more oxygen and currently he is on nonrebreather. I am going to give the patient 20 mg of Lasix IV and monitor the urine output as well as continue supporting the blood pressure using vasopressors. The echo showed normal LV systolic function with no significant valvular abnormalities. The chest x-ray showed definitely bilateral pleural effusion and worse finding compared to before. The examination revealed regular rhythm with a distant heart sounds and diminished bilateral breathing sounds as well as bilateral lower extremities pitting edema was noted. 07/30 Patient seen and examined. Have been able to come down on pressors. Not eating or drinking much. Clear liquid diet. He did recieive IV Lasix and CVP has decreased down to 3-4 currently. No chest pain or SOB. Assessment Acute pancreatitis UTI/sepsis Hypotension require vasopressors Bradycardia which has resolved Fluid overload Quadriplegia Bilateral pleural effusion Multiple comorbid conditions Plan Continue current medical regimen Continue supporting the blood pressure Continue to monitor the kidney function and electrolytes especially the sodium being low His sodium did improve and has significant edema however CVP currently decreased. Monitor closely and if drops further or increasing pressor requirements, he may elizabet fluid bolus. Objective - Vital Signs Vital signs: Vital Signs Temp 97.9 F 07/31/23 12:00 Pulse 105 H 07/31/23 14:00 Resp 32 H 07/31/23 14:00 BP 149/124 07/31/23 11:00 Pulse Ox 97 07/31/23 14:00 FiO2 40 07/31/23 08:51 Intake & Output 07/30/23 07/31/23 07/31/23 18:59 06:59 18:59 Intake Total 1673.585 999.554 720.525 Output Total 2325 755 920 Balance -651.415 244.554 -199.475 Weight 109.225 kg Intake: IV 610 210 80 Bicarb 50 Meropenem 1 gm In Sodium 400 100 Chloride 0.9% 100 ml @ 33 .3 mls/hr IVPB Q8HR [facility] Rx#:[id number] Sodium Chloride 0.9% 1, 160 110 80 000 ml @ 10 mls/hr IV . Q24H [facility] Rx#:[id number] Intake, IV Titration 1063.585 789.554 640.525 Amount Calcium Gluconate in NaCl 100 1 gm In Saline 1 100ml. bag @ 100 mls/hr IVPB ONCE ONE Rx#:[id number] Calcium Gluconate in NaCl 100 1 gm In Saline 1 100ml. bag @ 100 mls/hr IVPB ONCE ONE Rx#:[id number] Meropenem 1 gm In Sodium 100 100 Chloride 0.9% 100 ml @ 33 .3 mls/hr IVPB Q8HR [facility] Rx#:[id number] Norepinephrine 32 mg In 0.717 Sodium Chloride 0.9% 218 ml @ 0.03 MCG/KG/MIN 1. 536 mls/hr IV .Q24H [facility] Rx#:[id number] Phenylephrine 40 mg In 765.155 741.308 395.54 Sodium Chloride 0.9% 250 ml @ 0.5 MCG/KG/MIN 15. 554 mls/hr IV .[id number] [facility] Rx#:[id number] Vasopressin 20 unit In 98.43 48.246 44.268 Sodium Chloride 0.9% 50 ml @ 0.03 UNITS/MIN 4.59 mls/hr IV .[id number] [facility] Rx# :[id number] Output: Urine 2325 755 920 Other: Voiding Method Indwelling Catheter Indwelling Catheter Indwelling Catheter ABP, PAP, CO, CI - Last Documented Arterial Blood Pressure 93/54 - Labs CBC & Chem 7: 07/31/23 04:30 07/31/23 04:30 Labs: Abnormal Lab Results - Last 24 Hours (Table) 07/31/23 07/31/23 07/31/23 Range/Units 04:19 04:30 04:30 WBC 31.4 H (3.8-10.6) k/uL RBC 3.85 L (4.30-5.90) m/uL Hgb 10.2 L (13.0-17.5) gm/dL Hct 32.8 L (39.0-53.0) % RDW 17.1 H (11.5-15.5) % Plt Count 23 L (150-450) k/uL ABG pH (7.35-7.45) ABG pCO2 (35-45) mmHg ABG pO2 (83-108) mmHg ABG Total CO2 (19-24) mmol/L ABG O2 Saturation (94-97) % Sodium 130 L (137-145) mmol/L Creatinine 0.63 L (0.66-1.25) mg/dL Glucose 67 L (74-99) mg/dL POC Glucose (mg/dL) 66 L (70-110) mg/dL Calcium 6.0 L* (8.4-10.2) mg/dL Ionized Calcium Yuval (4.5-5.3) mg/dL Delta Bilirubin 0.6 H (0.0-0.2) mg/dL AST 64 H (17-59) U/L Total Protein 4.0 L (6.3-8.2) g/dL Albumin 1.8 L (3.5-5.0) g/dL 07/31/23 07/31/23 07/31/23 Range/Units 05:49 08:01 09:08 WBC (3.8-10.6) k/uL RBC (4.30-5.90) m/uL Hgb (13.0-17.5) gm/dL Hct (39.0-53.0) % RDW (11.5-15.5) % Plt Count (150-450) k/uL ABG pH 7.16 L* (7.35-7.45) ABG pCO2 69 H (35-45) mmHg ABG pO2 120 H (83-108) mmHg ABG Total CO2 27 H (19-24) mmol/L ABG O2 Saturation 99.1 H (94-97) % Sodium (137-145) mmol/L Creatinine (0.66-1.25) mg/dL Glucose (74-99) mg/dL POC Glucose (mg/dL) 68 L (70-110) mg/dL Calcium (8.4-10.2) mg/dL Ionized Calcium Yuval 4.0 L (4.5-5.3) mg/dL Delta Bilirubin (0.0-0.2) mg/dL AST (17-59) U/L Total Protein (6.3-8.2) g/dL Albumin (3.5-5.0) g/dL
--- NOTE | 2023-07-31 16:25 | P.PN ---
Subjective Progress Note Date: 07/31/23 CHIEF COMPLAINT: Abdominal pain HISTORY OF PRESENT ILLNESS: Patient remains in the ICU. No new complaints per nursing staff. Patient is resting comfortably. He is on BiPAP. He does remain on levo. Afebrile. Mildly tachycardic. WBC 31.4 last lipase 2209 PHYSICAL EXAM: VITAL SIGNS: Reviewed. GENERAL: Well-developed in no acute distress. ABDOMEN: Soft. Obese. Mildly distended. Tympanic. Nontender. Skin: decubitus ulcer ASSESSMENT: 1. Acute pancreatitis improving. Possibly medication induced. Patient seen by GI service. No gallstones noted on ultrasound 2. Colitis 3. UTI with sepsis PLAN: -No surgical intervention planned -Continue to monitor -Continue clear liquid diet for now -1 dose of lactulose given for constipation -Antibiotics per infectious disease -Continue ICU management -Continue supportive care Physician Athletic Scout note has been reviewed by physician. Signing provider agrees with the documented findings, assessment, and plan of care. Objective - Vital Signs Vital signs: Vital Signs Temp 97.9 F 07/31/23 12:00 Pulse 105 H 07/31/23 14:00 Resp 32 H 07/31/23 14:00 BP 149/124 07/31/23 11:00 Pulse Ox 97 07/31/23 14:00 FiO2 40 07/31/23 08:51 Intake & Output 07/30/23 07/31/23 07/31/23 18:59 06:59 18:59 Intake Total 1673.585 999.554 720.525 Output Total 2325 755 920 Balance -651.415 244.554 -199.475 Weight 109.225 kg Intake: IV 610 210 80 Bicarb 50 Meropenem 1 gm In Sodium 400 100 Chloride 0.9% 100 ml @ 33 .3 mls/hr IVPB Q8HR [facility] Rx#:[id number] Sodium Chloride 0.9% 1, 160 110 80 000 ml @ 10 mls/hr IV . Q24H [facility] Rx#:[id number] Intake, IV Titration 1063.585 789.554 640.525 Amount Calcium Gluconate in NaCl 100 1 gm In Saline 1 100ml. bag @ 100 mls/hr IVPB ONCE ONE Rx#:[id number] Calcium Gluconate in NaCl 100 1 gm In Saline 1 100ml. bag @ 100 mls/hr IVPB ONCE ONE Rx#:[id number] Meropenem 1 gm In Sodium 100 100 Chloride 0.9% 100 ml @ 33 .3 mls/hr IVPB Q8HR [facility] Rx#:[id number] Norepinephrine 32 mg In 0.717 Sodium Chloride 0.9% 218 ml @ 0.03 MCG/KG/MIN 1. 536 mls/hr IV .Q24H [facility] Rx#:[id number] Phenylephrine 40 mg In 765.155 741.308 395.54 Sodium Chloride 0.9% 250 ml @ 0.5 MCG/KG/MIN 15. 554 mls/hr IV .[id number] [facility] Rx#:[id number] Vasopressin 20 unit In 98.43 48.246 44.268 Sodium Chloride 0.9% 50 ml @ 0.03 UNITS/MIN 4.59 mls/hr IV .[id number] [facility] Rx# :[id number] Output: Urine 2325 755 920 Other: Voiding Method Indwelling Catheter Indwelling Catheter Indwelling Catheter ABP, PAP, CO, CI - Last Documented Arterial Blood Pressure 93/54 - Labs CBC & Chem 7: 07/31/23 04:30 07/31/23 04:30 Labs: Abnormal Lab Results - Last 24 Hours (Table) 07/31/23 07/31/23 07/31/23 Range/Units 04:19 04:30 04:30 WBC 31.4 H (3.8-10.6) k/uL RBC 3.85 L (4.30-5.90) m/uL Hgb 10.2 L (13.0-17.5) gm/dL Hct 32.8 L (39.0-53.0) % RDW 17.1 H (11.5-15.5) % Plt Count 23 L (150-450) k/uL ABG pH (7.35-7.45) ABG pCO2 (35-45) mmHg ABG pO2 (83-108) mmHg ABG Total CO2 (19-24) mmol/L ABG O2 Saturation (94-97) % Sodium 130 L (137-145) mmol/L Creatinine 0.63 L (0.66-1.25) mg/dL Glucose 67 L (74-99) mg/dL POC Glucose (mg/dL) 66 L (70-110) mg/dL Calcium 6.0 L* (8.4-10.2) mg/dL Ionized Calcium Yuval (4.5-5.3) mg/dL Delta Bilirubin 0.6 H (0.0-0.2) mg/dL AST 64 H (17-59) U/L Total Protein 4.0 L (6.3-8.2) g/dL Albumin 1.8 L (3.5-5.0) g/dL 07/31/23 07/31/23 07/31/23 Range/Units 05:49 08:01 09:08 WBC (3.8-10.6) k/uL RBC (4.30-5.90) m/uL Hgb (13.0-17.5) gm/dL Hct (39.0-53.0) % RDW (11.5-15.5) % Plt Count (150-450) k/uL ABG pH 7.16 L* (7.35-7.45) ABG pCO2 69 H (35-45) mmHg ABG pO2 120 H (83-108) mmHg ABG Total CO2 27 H (19-24) mmol/L ABG O2 Saturation 99.1 H (94-97) % Sodium (137-145) mmol/L Creatinine (0.66-1.25) mg/dL Glucose (74-99) mg/dL POC Glucose (mg/dL) 68 L (70-110) mg/dL Calcium (8.4-10.2) mg/dL Ionized Calcium Yuval 4.0 L (4.5-5.3) mg/dL Delta Bilirubin (0.0-0.2) mg/dL AST (17-59) U/L Total Protein (6.3-8.2) g/dL Albumin (3.5-5.0) g/dL
[2023-07-31 18:01] LABS: Glucose,Whole Blood 69 mg/dL (70-110)
[2023-07-31] MEDS: DEXTROSE 50% SYRINGE 50 ML IVP PRN (18:08)
[2023-07-31] MEDS ORDERED: DILTIAZEM 125 MG in SODIUM CHLORIDE 0.9% 100 ML IV SCH (19:30)
[2023-07-31] MEDS: IOPAMIDOL CONTRAST (ORAL USE) VIAL PO PRN (19:35)
[2023-07-31 19:38] LABS: Glucose,Whole Blood 81 mg/dL (70-110)
[2023-07-31] MEDS ORDERED: SODIUM BICARB 8.4% 50 ML SYR (1 MEQ/ML) ONE (21:21)
[2023-07-31] MEDS ORDERED: EPINEPHrine 10 ML SYRINGE (0.1 MG/ML) ONE (21:21)
[2023-07-31 21:57] LABS: ABG Base Excess -3.3 mmol/L; ABG HCO3 24 mmol/L (21-25); ABG Oxygen Saturation 98.6 % (94-97); ABG PCO2 51 mmHg (35-45); ABG PH 7.28 (7.35-7.45); ABG PO2 97 mmHg (83-108); ABG TCO2 25 mmol/L (19-24); Allen Test Performed? Yes
--- NOTE | 2023-07-31 22:03 | CT ---
EXAMINATION TYPE: CT abdomen pelvis w con DATE OF EXAM: 07/31/2023 COMPARISON: 07/26/2023 HISTORY: sepsis CT DLP: 2853.4 mGycm Automated exposure control for dose reduction was used. TECHNIQUE: Helical acquisition of images was performed from the lung bases through the pelvis. CONTRAST: Performed with Oral Contrast and with IV Contrast, patient injected with 100 mL of Isovue 300. FINDINGS: There has been interval development of large bilateral effusions and bibasilar infiltrate/atelectasis . The gallbladder is normal without distention, wall thickening, pericholecystic fluid or gallstones. T here is no biliary ductal dilatation. There has been interval development of diffuse enlargement of the pancreas with peripancreatic inflam mation consistent with acute pancreatitis. There is no pancreatic mass or cyst. There is a large amount of contrast and air within the stomach and the wall of the duodenum is marked ly thickened likely secondary to inflammation. There is scattered free fluid adjacent to the liver and spleen and in the left paracolic gutter. There are nonobstructing renal calcifications and marked renal atrophy. The caliber of the abdominal aorta is normal. The bowel loops are not dilated. There is no free intraperitoneal air. There is diffuse osteopenia. There is severe degeneration of the right hip joint with subluxation. Th ere is a remote nonhealed subcapital fracture of the left hip. Again noted is a decubitus ulcer in th e left buttock region with marked edema in the soft tissues of the abdominal wall and pelvis Impression: 1. Interval development of large bilateral pleural effusions and small bibasilar infiltrates consiste nt with pneumonia or atelectasis. 2. Interval development of swelling of the pancreas with peripancreatic inflammation consistent with acute pancreatitis. 3. Persistent markedly distended stomach with thickening of the wall the duodenum likely secondary to inflammation. 4. Small to moderate scattered ascites 5. multiple nonobstructing renal calcifications and marked renal atrophy. 6. Nonhealed subcapital fracture of the left hip and marked degenerative change of the right hip. 7. Left buttock decubitus ulcer and marked edema within the soft tissues of the abdomen and pelvis
[2023-07-31] MEDS: DEXTROSE 5% IN WATER 100 ML with AMIODARONE 150 MG IV ONE (22:05)
--- NOTE | 2023-07-31 22:13 | XR ---
EXAM: XR Chest, 1 View CLINICAL HISTORY: ITS.REASON XR Reason: Tube placement TECHNIQUE: Frontal view of the chest. COMPARISON: Chest radiograph on 07/31/2023 at 510 hours FINDINGS: Hardware: Endotracheal tube terminates approximately 6.6 cm above the rosmery. Enteric tube courses past the diaphragm and out of the field-of- view. Right internal jugular central venous catheter terminates in the region of the lower SVC. Lungs/pleura: Similar bilateral pleural effusions with associated atelectasis versus pneumonia. Heart/mediastinum: Stable enlargement of the cardiac silhouette. Soft tissues: Unremarkable. Bones: No acute fracture. Degenerative changes of the spine. Upper abdomen: Normal. IMPRESSION: 1. Endotracheal tube terminates approximately 6.6 cm above the rosmery. Enteric tube courses past the diaphragm and out of the [id number]. Right internal jugular central venous catheter terminates in the region of the lower SVC. 2. Similar bilateral pleural effusions with associated atelectasis versus pneumonia.
[2023-07-31 22:22] LABS: Anisocytosis Slight; HCT 31.1 % (39.0-53.0); HGB 9.7 gm/dL (13.0-17.5); Hypochromasia Slight; MCH 26.5 pg (25.0-35.0); MCHC 31.1 g/dL (31.0-37.0); MCV 85.1 fL (80.0-100.0); Mean Platelet Volume 11.2; RBC 3.66 m/uL (4.30-5.90); RDW 17.2 % (11.5-15.5); WBC 24.2 k/uL (3.8-10.6)
[2023-07-31] MEDS: AMIODARONE 360 MG in DEXTROSE 5% IN WATER 200 ML IV ONE (22:30)
[2023-07-31 22:32] LABS: ALT 44 U/L (4-49); AST 92 U/L (17-59); African American GFR (CKD) >90 (>60 ml/min/1.73 sqM); Albumin 1.6 g/dL (3.5-5.0); Alkaline Phosphatase 160 U/L (38-126); Anion Gap 3 mmol/L; Blood Urea Nitrogen 13 mg/dL (9-20); Carbon Dioxide 22 mmol/L (22-30); Chloride 105 mmol/L (98-107); Glucose 87 mg/dL (74-99); Magnesium 1.2 mg/dL (1.6-2.3); Non-African American GFR(CKD) >90 (>60 ml/min/1.73 sqM); Sodium 130 mmol/L (137-145); Total Bilirubin 0.8 mg/dL (0.2-1.3); Total Protein 3.7 g/dL (6.3-8.2)
[2023-07-31 22:42] LABS: Platelet Count 33 k/uL (150-450)
[2023-07-31 22:47] LABS: Calcium 6.1 mg/dL (8.4-10.2)
[2023-07-31 23:41] LABS: Glucose,Whole Blood 107 mg/dL (70-110)
[2023-08-01] MEDS: CALCIUM GLUCONATE IN NACL 2 GM in SALINE 1 100ML.BAG IVPB ONE ×2 (00:05→17:35)
[2023-08-01] MEDS: MAGNESIUM SULFATE-D5W PMX 1 GM in DEXTROSE/WATER 1 100ML.BAG IVPB SCH (00:06)
[2023-08-01 00:19] LABS: Band Neutrophils % 20 %; Lymphocytes # (M) 1.45 k/uL (1.0-4.8); Neutrophils % (M) 74 %; Nucleated Red Blood Cells 0 /100 WBC (0-0); Total Cells Counted 100
[2023-08-01 00:20] LABS: Anisocytosis (M) Present; Crenated RBC Present; Ovalocytes Present; Polychromasia Present
--- NOTE | 2023-08-01 00:21 | PN ---
PROGRESS NOTE UTI most likely related to immune system deficiency, catheter urostomy. MMODL / IJN: [id number] /
--- NOTE | 2023-08-01 02:20 | CT ---
EXAM: CT Head Without Intravenous Contrast CLINICAL HISTORY: AMS TECHNIQUE: Axial computed tomography images of the head/brain without intravenous contrast. CTDI is 49.2 mGy and DLP is 1255.4 mGy-cm. This CT exam was performed using one or more of the following dose reduction techniques: automated exposure control, adjustment of the mA and/or kV according to patient size, and/or use of iterative reconstruction technique. COMPARISON: Head without contrast 03/31/2017 FINDINGS: Brain: Unremarkable. No hemorrhage. No significant white matter disease. No edema. Ventricles: Unremarkable. No ventriculomegaly. Bones/joints: Unremarkable. No acute fracture. Soft tissues: Unremarkable. Sinuses: Similar retention cyst or polyp involving the posterior medial left maxillary sinus. The paranasal sinuses are otherwise unremarkable. Mastoid air cells: Unremarkable as visualized. No mastoid effusion. Tubes, lines and devices: Nasogastric tube noted in the left nasopharynx. Incidental endotracheal tube partially visualized in the oropharynx. IMPRESSION: No acute intracranial process identified.
--- NOTE | 2023-08-01 02:53 | P.EN ---
Code blue note patient went into cardiac arrest while in the CT scan . initial rhythm was PEA arrest , CPR initiated following ACLS protocol, round of epi, bicarb were given. ROSC achieved after 15 min of CPR confirmed by positive wave form on A line. however, shortly after patient went into afib with RVR and was losing/attenuated wave form on his A line, synchronized cardioversion at 70 j was delivered. after which patient was more stable with heart rate maintained around 100-130 with good wave form on A line
[2023-08-01] MEDS: AMIODARONE 450 MG in DEXTROSE 5% IN WATER 250 ML IV SCH (05:01)
[2023-08-01] MEDS: propofoL 100 ML IV ONE (05:52)
[2023-08-01 06:05] LABS: ALT 40 U/L (4-49); AST 68 U/L (17-59); African American GFR (CKD) >90 (>60 ml/min/1.73 sqM); Albumin 1.3 g/dL (3.5-5.0); Alkaline Phosphatase 147 U/L (38-126); Amylase 58 U/L (30-110); Anion Gap 4 mmol/L; Blood Urea Nitrogen 13 mg/dL (9-20); Carbon Dioxide 20 mmol/L (22-30); Chloride 107 mmol/L (98-107); Glucose 112 mg/dL (74-99); Lipase 336 U/L (23-300); Non-African American GFR(CKD) >90 (>60 ml/min/1.73 sqM); Potassium 3.4 mmol/L (3.5-5.1); Sodium 131 mmol/L (137-145); Total Bilirubin 1.5 mg/dL (0.2-1.3); Total Protein 3.2 g/dL (6.3-8.2)
[2023-08-01 06:06] LABS: ABG Base Excess -0.9 mmol/L; ABG HCO3 22 mmol/L (21-25); ABG PCO2 27 mmHg (35-45); ABG PH 7.52 (7.35-7.45); ABG TCO2 23 mmol/L (19-24); Allen Test Performed? Yes
[2023-08-01 06:14] LABS: Calcium 6.3 mg/dL (8.4-10.2)
[2023-08-01 06:22] LABS: ABG PO2 59 mmHg (83-108)
[2023-08-01 06:28] LABS: Anisocytosis Slight; Basophils # (A) 0.1 k/uL (0-0.2); Basophils % (A) 0 %; Eosinophils # (A) 0.1 k/uL (0-0.7); Eosinophils % (A) 0 %; HCT 27.9 % (39.0-53.0); HGB 8.7 gm/dL (13.0-17.5); Hypochromasia Slight; Lymphocytes # (A) 0.7 k/uL (1.0-4.8); Lymphocytes % (A) 3 %; MCH 26.1 pg (25.0-35.0); MCHC 31.3 g/dL (31.0-37.0); MCV 83.3 fL (80.0-100.0); Mean Platelet Volume 7.7; Monocytes # (A) 1.1 k/uL (0-1.0); Monocytes % (A) 4 %; Neutrophils # (A) 24.6 k/uL (1.3-7.7); Neutrophils % (A) 92 %; RBC 3.35 m/uL (4.30-5.90); RDW 17.3 % (11.5-15.5); WBC 26.8 k/uL (3.8-10.6)
[2023-08-01 06:30] LABS: Platelet Count 27 k/uL (150-450)
--- NOTE | 2023-08-01 06:47 | PN ---
PROGRESS NOTE SUBJECTIVE: Remains in the ICU. He does not like wearing his BiPAP. He will only allow to put it on for half hour at a time, otherwise he will put on his oxygen at 4 L. He went back into atrial fibrillation, he is on diltiazem drip for that. He is having severe hypotension for which he is still on epinephrine and vasopressin which has given him tachycardia. Pulse is 96 to 114, respiratory rate is 20 to 24, blood pressure 150s over 140s. He is saturating 98% on BiPAP with BiPAP fairly stabilized. Blood pressure which he needs to keep on. ABG shows pH 7.16, pO2 120, pCO2 69, and his calcium 4.0. Current urine cultures positive for E coli, susceptible to Merrem or oral antibiotics. The patient looks like he is short of breath. Looks like he is weak and fatigued. He is tiring out. 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 He has quadriplegia, hockey accident, seizure disorder, chronic decubitus ulcer. Wound care should for UTI is 8 weeks. He is having issues with confusion, which is improved with his BiPAP, but he does not like to wear his BiPAP. I told him to wear his BiPAP all the time. Continue with Merrem for UTI. Sodium 130, potassium 4.7, white count 31, hemoglobin 10.2, platelets , bicarb 23, ionized calcium 4. Blood pressure 104/43. He is obese, BMI is over 50. He is sleepy lethargic. OBJECTIVE: CARDIOVASCULAR: S1, S2. ABDOMEN: Soft. LUNGS: Equal, decreased. GENERAL: Does not talk, is more confused. lower extremity edema bilateral. Leukocytosis, severe, profound hypotension, secondary to septic shock, acute pancreatitis, profound hypokalemia, multiple pressors, E coli UTI, sepsis, septic shock, pancreatitis, gastroenteritis, colitis, hypoxemic hypercapnic respiratory failure, bilateral pleural effusions, severe dehydration, hypovolemic hyponatremia, quadriplegia. Prognosis extremely guarded at this point. He has neurogenic bladder, chronic decubitus ulcers, history of seizures, GERD esophagitis. PROGNOSIS: Extremely guarded. Continue current treatment. Get Infectious Disease to see him for an elevated white count. MMODL / IJN: [id number] /
[2023-08-01 08:59] LABS: Ovalocytes Present
[2023-08-01] MEDS: CHLORHEXIDINE GLUCONATE 15 ML CUP MUCOUS MEM SCH (09:29)
--- NOTE | 2023-08-01 10:52 | XR ---
EXAMINATION TYPE: XR chest 1V portable DATE OF EXAM: 08/01/2023 Comparison: 07/31/2023 Clinical History: 57-year-old male pleural effusions Findings: ET and NG tubes are satisfactory. Right IJ CVC tip at the lower SVC level. Slight worsening interstit ial density. Worsening mid and lower lung opacities. Patient obliqued towards the left. Impression: There appears to be worsening interstitial pulmonary edema. Ongoing small to moderate bilateral pleur al effusions with adjacent atelectasis and/or consolidation.
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
[2023-08-01] MEDS: HYDROmorphone 0.5 MG/0.5 ML SYRINGE IVP PRN (14:01)
--- NOTE | 2023-08-01 14:28 | P.PN ---
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 1994 did have history of seizure disorder pneumonia hyperlipidemia reflux and recurrent UTI, recently treated for UTI in the outpatient setting with doxycycline presented to hospital with weakness dry heaves did have a positive UA concerning for symptomatic urinary tract infection was hypotensive requiring admission to ICU On today's evaluation that is 07/30/2023, the patient continues to be afebrile, the patient is on 50% FiO2 nasal cannula oxygen patient is breathing comfortably no still requiring pressor support to maintain his blood pressure some nausea but no vomiting no diarrhea has been reported Patient white count is down to 30.4, creatinine 0.58 liver enzymes normal urine with an E. coli that is a sensitive pathogen blood culture negative Objective - Vital Signs Vital signs: Vital Signs Temp 97 F L 07/30/23 04:00 Pulse 92 07/30/23 09:22 Resp 22 07/30/23 07:00 BP 117/76 07/30/23 07:00 Pulse Ox 100 07/30/23 07:00 FiO2 50 07/30/23 08:07 Intake & Output 07/29/23 07/30/23 07/30/23 18:59 06:59 18:59 Intake Total 2651.482 2576.014 173.63 Output Total 1260 1160 Balance 4967.654 6081.014 173.63 Weight 109.044 kg Intake: IV 1400 1700 Bicarb 550 Calcium Gluconate in NaCl 100 100 1 gm In Saline 1 100ml. bag @ 100 mls/hr IVPB ONCE ONE Rx#:[id number] Dextrose 5% in Water 1, 100 000 ml @ 50 mls/hr IV . Q20H [facility] Rx#:[id number] Dextrose 5% in Water 1, 650 50 000 ml @ 75 mls/hr IV . [id number] [facility] with Sodium Bicarb (1 Meq/ml) 150 ml Rx#:[id number] Meropenem 1 gm In Sodium 100 200 Chloride 0.9% 100 ml @ 33 .3 mls/hr IVPB Q8HR [facility] Rx#:[id number] Potassium Chloride 10 meq 200 In Water For Injection 1 100ml.bag @ 100 mls/hr IVPB Q1HR [facility] Rx#: [id number] Sodium Chloride 0.9% 1, 450 600 000 ml @ 50 mls/hr IV . Q20H [facility] Rx#:[id number] Intake, IV Titration 1251.482 876.014 173.63 Amount Dextrose 5% in Water 1, 50 000 ml @ 50 mls/hr IV . Q20H [facility] Rx#:[id number] Dextrose 5% in Water 1, 125 000 ml @ 75 mls/hr IV . [id number] [facility] with Sodium Bicarb (1 Meq/ml) 150 ml Rx#:[id number] Norepinephrine 4 mg In 8.866 Sodium Chloride 0.9% 250 ml @ 0.03 MCG/KG/MIN 9. 332 mls/hr IV .Q24H [facility] Rx#:[id number] Phenylephrine 40 mg In 1025.482 830.428 126.2 Sodium Chloride 0.9% 250 ml @ 0.5 MCG/KG/MIN 15. 554 mls/hr IV .[id number] [facility] Rx#:[id number] Vasopressin 20 unit In 51 36.72 47.43 Sodium Chloride 0.9% 50 ml @ 0.03 UNITS/MIN 4.59 mls/hr IV .Q11H7M [facility] Rx# :[id number] Output: Urine 1260 1160 Other: Voiding Method Indwelling Catheter Indwelling Catheter ABP, PAP, CO, CI - Last Documented Arterial Blood Pressure 132/76 - Exam GENERAL DESCRIPTION: Middle-age male lying in bed in no distress RESPIRATORY SYSTEM: Unlabored breathing , decreased breath sounds at bases HEART: S1 S2 regular rate and rhythm , ABDOMEN: Soft , no tenderness EXTREMITIES: No edema feet Exam completed with the help of SANFORIZING MACHINE OPERATOR - Labs CBC & Chem 7: 08/01/23 05:10 08/01/23 05:10 Labs: Abnormal Lab Results - Last 24 Hours (Table) 07/29/23 07/29/23 07/29/23 Range/Units 05:15 12:44 18:01 WBC (3.8-10.6) k/uL RBC (4.30-5.90) m/uL Hgb (13.0-17.5) gm/dL Hct (39.0-53.0) % RDW (11.5-15.5) % Plt Count (150-450) k/uL ABG pH (7.35-7.45) ABG pCO2 (35-45) mmHg ABG pO2 (83-108) mmHg ABG Total CO2 (19-24) mmol/L ABG O2 Saturation (94-97) % Sodium (137-145) mmol/L Carbon Dioxide (22-30) mmol/L Creatinine (0.66-1.25) mg/dL Glucose (74-99) mg/dL POC Glucose (mg/dL) 124 H 123 H (70-110) mg/dL Calcium (8.4-10.2) mg/dL Total Protein (6.3-8.2) g/dL Albumin (3.5-5.0) g/dL Lipase 2209 H (23-300) U/L 07/29/23 07/30/23 07/30/23 Range/Units 21:39 00:16 00:30 WBC (3.8-10.6) k/uL RBC (4.30-5.90) m/uL Hgb (13.0-17.5) gm/dL Hct (39.0-53.0) % RDW (11.5-15.5) % Plt Count (150-450) k/uL ABG pH 7.21 L (7.35-7.45) ABG pCO2 58 H (35-45) mmHg ABG pO2 81 L (83-108) mmHg ABG Total CO2 25 H (19-24) mmol/L ABG O2 Saturation 97.1 H (94-97) % Sodium 127 L (137-145) mmol/L Carbon Dioxide 21 L (22-30) mmol/L Creatinine 0.64 L (0.66-1.25) mg/dL Glucose 109 H (74-99) mg/dL POC Glucose (mg/dL) 126 H (70-110) mg/dL Calcium 5.4 L* (8.4-10.2) mg/dL Total Protein (6.3-8.2) g/dL Albumin (3.5-5.0) g/dL Lipase (23-300) U/L 07/30/23 07/30/23 07/30/23 Range/Units 03:40 03:40 08:03 WBC 30.4 H (3.8-10.6) k/uL RBC 3.90 L (4.30-5.90) m/uL Hgb 10.5 L (13.0-17.5) gm/dL Hct 32.4 L (39.0-53.0) % RDW 16.7 H (11.5-15.5) % Plt Count 27 L (150-450) k/uL ABG pH 7.33 L (7.35-7.45) ABG pCO2 (35-45) mmHg ABG pO2 167 H (83-108) mmHg ABG Total CO2 (19-24) mmol/L ABG O2 Saturation 100.0 H (94-97) % Sodium 127 L (137-145) mmol/L Carbon Dioxide 21 L (22-30) mmol/L Creatinine 0.58 L (0.66-1.25) mg/dL Glucose 104 H (74-99) mg/dL POC Glucose (mg/dL) (70-110) mg/dL Calcium 5.5 L* (8.4-10.2) mg/dL Total Protein 3.8 L (6.3-8.2) g/dL Albumin 1.6 L (3.5-5.0) g/dL Lipase (23-300) U/L Microbiology - Last 24 Hours (Table) 07/26/23 11:15 Blood Culture - Preliminary Blood 07/26/23 11:00 Blood Culture - Preliminary Blood Assessment and Plan (1) Leukocytosis Current Visit: Yes Status: Acute Code(s): D72.829 - ELEVATED WHITE BLOOD CELL COUNT, UNSPECIFIED SNOMED Code(s): 251880606 (2) Sepsis Current Visit: Yes Status: Acute Code(s): A41.9 - SEPSIS, UNSPECIFIED ORGANISM SNOMED Code(s): 45519092 (3) UTI (urinary tract infection) Current Visit: Yes Status: Acute Code(s): N39.0 - URINARY TRACT INFECTION, SITE NOT SPECIFIED SNOMED Code(s): 07223881 Plan: 1patient presented hospitalized weakness episode of nausea vomiting positive UA concerning for catheter assisted UTI failing outpatient oral doxycycline therapy 2-sulfa allergy 3-patient did have elevated liver enzymes ultrasound was negative for acute process General surgery is following the patient 4-patient urine has been finalized with E. coli that is not ESBL patient, however the patient white count is trending down and is requiring less pressor support with addition of meropenem which we will continue for now and monitor clinical course closely Dictation was produced using [employer] dictation software. please excuse any grammatical, word or spelling errors. Time with Patient: Less than 30
--- NOTE | 2023-08-01 14:30 | P.PN ---
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 1994 did have history of seizure disorder pneumonia hyperlipidemia reflux and recurrent UTI, recently treated for UTI in the outpatient setting with doxycycline presented to hospital with weakness dry heaves did have a positive UA concerning for symptomatic urinary tract infection was hypotensive requiring admission to ICU On today's evaluation that is 07/31/2023, Patient is afebrile patient is currently on nasal cannula oxygen requiring 40% FiO2 patient mention feeling not that well today has been complaining of some gastric upset and nausea but no vomiting has been reported no diarrhea reported by the nursing staff patient still requiring pressor support to maintain his blood pressure Patient white count is down to 24.2 creatinine 0.61 Objective - Vital Signs Vital signs: Vital Signs Temp 97.3 F L 07/31/23 16:00 Pulse 81 07/31/23 16:29 Resp 18 07/31/23 16:29 BP 149/124 07/31/23 11:00 Pulse Ox 98 07/31/23 16:29 FiO2 40 07/31/23 16:29 Intake & Output 07/30/23 07/31/23 07/31/23 18:59 06:59 18:59 Intake Total 1673.585 999.554 840.525 Output Total 2325 755 1170 Balance -651.415 244.554 -329.475 Weight 109.225 kg Intake: IV 610 210 200 Bicarb 50 Meropenem 1 gm In Sodium 400 100 100 Chloride 0.9% 100 ml @ 33 .3 mls/hr IVPB Q8HR [facility] Rx#:[id number] Sodium Chloride 0.9% 1, 160 110 100 000 ml @ 10 mls/hr IV . Q24H [facility] Rx#:[id number] Intake, IV Titration 1063.585 789.554 640.525 Amount Calcium Gluconate in NaCl 100 1 gm In Saline 1 100ml. bag @ 100 mls/hr IVPB ONCE ONE Rx#:[id number] Calcium Gluconate in NaCl 100 1 gm In Saline 1 100ml. bag @ 100 mls/hr IVPB ONCE ONE Rx#:[id number] Meropenem 1 gm In Sodium 100 100 Chloride 0.9% 100 ml @ 33 .3 mls/hr IVPB Q8HR [facility] Rx#:[id number] Norepinephrine 32 mg In 0.717 Sodium Chloride 0.9% 218 ml @ 0.03 MCG/KG/MIN 1. 536 mls/hr IV .Q24H [facility] Rx#:[id number] Phenylephrine 40 mg In 765.155 741.308 395.54 Sodium Chloride 0.9% 250 ml @ 0.5 MCG/KG/MIN 15. 554 mls/hr IV .[id number] [facility] Rx#:[id number] Vasopressin 20 unit In 98.43 48.246 44.268 Sodium Chloride 0.9% 50 ml @ 0.03 UNITS/MIN 4.59 mls/hr IV .Q11H7M [facility] Rx# :[id number] Output: Urine 2325 755 1170 Other: Voiding Method Indwelling Catheter Indwelling Catheter Indwelling Catheter ABP, PAP, CO, CI - Last Documented Arterial Blood Pressure 99/51 - Exam GENERAL DESCRIPTION: Middle-age male lying in bed in no distress RESPIRATORY SYSTEM: Unlabored breathing , decreased breath sounds at bases HEART: S1 S2 regular rate and rhythm , ABDOMEN: Soft , mild distention EXTREMITIES: Swelling to the right no redness - Labs CBC & Chem 7: 08/01/23 05:10 08/01/23 05:10 Labs: Abnormal Lab Results - Last 24 Hours (Table) 07/31/23 07/31/23 07/31/23 Range/Units 04:19 04:30 04:30 WBC 31.4 H (3.8-10.6) k/uL RBC 3.85 L (4.30-5.90) m/uL Hgb 10.2 L (13.0-17.5) gm/dL Hct 32.8 L (39.0-53.0) % RDW 17.1 H (11.5-15.5) % Plt Count 23 L (150-450) k/uL ABG pH (7.35-7.45) ABG pCO2 (35-45) mmHg ABG pO2 (83-108) mmHg ABG Total CO2 (19-24) mmol/L ABG O2 Saturation (94-97) % Sodium 130 L (137-145) mmol/L Creatinine 0.63 L (0.66-1.25) mg/dL Glucose 67 L (74-99) mg/dL POC Glucose (mg/dL) 66 L (70-110) mg/dL Calcium 6.0 L* (8.4-10.2) mg/dL Ionized Calcium Yuval (4.5-5.3) mg/dL Delta Bilirubin 0.6 H (0.0-0.2) mg/dL AST 64 H (17-59) U/L Total Protein 4.0 L (6.3-8.2) g/dL Albumin 1.8 L (3.5-5.0) g/dL 07/31/23 07/31/23 07/31/23 Range/Units 05:49 08:01 09:08 WBC (3.8-10.6) k/uL RBC (4.30-5.90) m/uL Hgb (13.0-17.5) gm/dL Hct (39.0-53.0) % RDW (11.5-15.5) % Plt Count (150-450) k/uL ABG pH 7.16 L* (7.35-7.45) ABG pCO2 69 H (35-45) mmHg ABG pO2 120 H (83-108) mmHg ABG Total CO2 27 H (19-24) mmol/L ABG O2 Saturation 99.1 H (94-97) % Sodium (137-145) mmol/L Creatinine (0.66-1.25) mg/dL Glucose (74-99) mg/dL POC Glucose (mg/dL) 68 L (70-110) mg/dL Calcium (8.4-10.2) mg/dL Ionized Calcium Yuval 4.0 L (4.5-5.3) mg/dL Delta Bilirubin (0.0-0.2) mg/dL AST (17-59) U/L Total Protein (6.3-8.2) g/dL Albumin (3.5-5.0) g/dL Assessment and Plan (1) Leukocytosis Current Visit: Yes Status: Acute Code(s): D72.829 - ELEVATED WHITE BLOOD CELL COUNT, UNSPECIFIED SNOMED Code(s): 966138137 (2) Sepsis Current Visit: Yes Status: Acute Code(s): A41.9 - SEPSIS, UNSPECIFIED ORGANI SM SNOMED Code(s): 61316730 (3) UTI (urinary tract infection) Current Visit: Yes Status: Acute Code(s): N39.0 - URINARY TRACT INFECTION, SITE NOT SPECIFIED SNOMED Code(s): 61675251 Plan: 1patient presented hospitalized weakness episode of nausea vomiting positive UA concerning for catheter assisted UTI failing outpatient oral doxycycline therapy 2-sulfa allergy 3-patient did have elevated liver enzymes ultrasound was negative for acute process General surgery is following the patient 4-patient urine has been finalized with E. coli that is not ESBL 5-patient still have elevated white count requiring high-dose pressor support and did have some abdominal symptoms we will repeat CT abdominal pelvis with contrast to rule out intra-abdominal pathology and continue with the meropenem Dictation was produced using [employer] dictation software. please excuse any grammatical, word or spelling errors. Time with Patient: Less than 30
--- NOTE | 2023-08-01 14:32 | P.PN ---
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 On today's evaluation that is 08/01/2023, patient has been afebrile, patient is on the vent FiO2 of 50% patient is awake and responding to the family a ppropriately still requiring high-dose pressor support to maintain his blood pressure as per discussion with the nursing staff. Patient white count slightly up to 26.8 creatinine 0.[address] abdominal pelvis did shows bilateral effusion concern for acute pancreatitis markedly distended stomach Objective - Vital Signs Vital signs: Vital Signs Temp 97.6 F 08/01/23 04:00 Pulse 61 08/01/23 13:00 Resp 18 08/01/23 13:00 BP 105/63 08/01/23 13:00 Pulse Ox 99 08/01/23 13:00 FiO2 50 08/01/23 13:00 Intake & Output 07/31/23 08/01/23 08/01/23 18:59 06:59 18:59 Intake Total 955.022 334.768 584.194 Output Total 1320 1425 1500 Balance -364.978 -1090.232 -915.806 Weight 107.955 kg 107.955 kg Intake: IV 220 180 10 Meropenem 1 gm In Sodium 100 100 Chloride 0.9% 100 ml @ 33 .3 mls/hr IVPB Q8HR [facility] Rx#:[id number] Sodium Chloride 0.9% 1, 120 80 10 000 ml @ 10 mls/hr IV . Q24H [facility] Rx#:[id number] Intake, IV Titration 735.022 154.768 574.194 Amount Calcium Gluconate in NaCl 100 1 gm In Saline 1 100ml. bag @ 100 mls/hr IVPB ONCE ONE Rx#:[id number] Meropenem 1 gm In Sodium 100 Chloride 0.9% 100 ml @ 33 .3 mls/hr IVPB Q8HR [facility] Rx#:[id number] Norepinephrine 32 mg In 73.182 12.117 Sodium Chloride 0.9% 218 ml @ 0.03 MCG/KG/MIN 1. 536 mls/hr IV .Q24H [facility] Rx#:[id number] Phenylephrine 40 mg In 395.54 488.343 Sodium Chloride 0.9% 250 ml @ 0.5 MCG/KG/MIN 15. 554 mls/hr IV .[id number] [facility] Rx#:[id number] Vasopressin 20 unit In 66.300 0 Sodium Chloride 0.9% 50 ml @ 0.03 UNITS/MIN 4.59 mls/hr IV .Q11H7M [facility] Rx# :[id number] propofoL 1,000 mg In 142.651 85.851 Empty Bag 1 bag @ 15 MCG/ KG/MIN 9.83 mls/hr IV . [id number] [facility] Rx#:[id number] Output: Gastric Drainage 900 Urine 1320 1425 600 Other: Voiding Method Indwelling Catheter Indwelling Catheter Indwelling Catheter ABP, PAP, CO, CI - Last Documented Arterial Blood Pressure 117/66 - Exam GENERAL DESCRIPTION: Middle-age male intubated on the vent RESPIRATORY SYSTEM: Unlabored breathing , decreased breath sounds at bases HEART: S1 S2 regular rate and rhythm , ABDOMEN: Soft , mild distention EXTREMITIES: Swelling to the right no redness - Labs CBC & Chem 7: 08/01/23 05:10 08/01/23 05:10 Labs: Abnormal Lab Results - Last 24 Hours (Table) 07/31/23 07/31/23 07/31/23 Range/Units 17:59 21:56 21:56 WBC 24.2 H (3.8-10.6) k/uL RBC 3.66 L (4.30-5.90) m/uL Hgb 9.7 L (13.0-17.5) gm/dL Hct 31.1 L (39.0-53.0) % RDW 17.2 H (11.5-15.5) % Plt Count 33 L (150-450) k/uL Neutrophils # (1.3-7.7) k/uL Neutrophils # (Manual) 22.70 H (1.3-7.7) k/uL Lymphocytes # (1.0-4.8) k/uL Monocytes # (0-1.0) k/uL ABG pH (7.35-7.45) ABG pCO2 (35-45) mmHg ABG pO2 (83-108) mmHg ABG Total CO2 (19-24) mmol/L ABG O2 Saturation (94-97) % ABG Lactic Acid (0.5-1.6) mmol/L Sodium 130 L (137-145) mmol/L Potassium (3.5-5.1) mmol/L Carbon Dioxide (22-30) mmol/L Creatinine 0.61 L (0.66-1.25) mg/dL Glucose (74-99) mg/dL POC Glucose (mg/dL) 69 L (70-110) mg/dL Calcium 6.1 L* (8.4-10.2) mg/dL Ionized Calcium Yuval (4.5-5.3) mg/dL Magnesium 1.2 L (1.6-2.3) mg/dL Total Bilirubin (0.2-1.3) mg/dL AST 92 H (17-59) U/L Alkaline Phosphatase 160 H (38-126) U/L Troponin I (0.000-0.034) ng/mL Total Protein 3.7 L (6.3-8.2) g/dL Albumin 1.6 L (3.5-5.0) g/dL Lipase (23-300) U/L 07/31/23 07/31/23 07/31/23 Range/Units 21:56 21:56 21:56 WBC (3.8-10.6) k/uL RBC (4.30-5.90) m/uL Hgb (13.0-17.5) gm/dL Hct (39.0-53.0) % RDW (11.5-15.5) % Plt Count (150-450) k/uL Neutrophils # (1.3-7.7) k/uL Neutrophils # (Manual) (1.3-7.7) k/uL Lymphocytes # (1.0-4.8) k/uL Monocytes # (0-1.0) k/uL ABG pH 7.28 L (7.35-7.45) ABG pCO2 51 H (35-45) mmHg ABG pO2 (83-108) mmHg ABG Total CO2 25 H (19-24) mmol/L ABG O2 Saturation 98.6 H (94-97) % ABG Lactic Acid 3.2 H* (0.5-1.6) mmol/L Sodium (137-145) mmol/L Potassium (3.5-5.1) mmol/L Carbon Dioxide (22-30) mmol/L Creatinine (0.66-1.25) mg/dL Glucose (74-99) mg/dL POC Glucose (mg/dL) (70-110) mg/dL Calcium (8.4-10.2) mg/dL Ionized Calcium Yuval (4.5-5.3) mg/dL Magnesium (1.6-2.3) mg/dL Total Bilirubin (0.2-1.3) mg/dL AST (17-59) U/L Alkaline Phosphatase (38-126) U/L Troponin I 0.045 H* (0.000-0.034) ng/mL Total Protein (6.3-8.2) g/dL Albumin (3.5-5.0) g/dL Lipase (23-300) U/L 08/01/23 08/01/23 08/01/23 Range/Units 05:10 05:10 06:20 WBC 26.8 H (3.8-10.6) k/uL RBC 3.35 L (4.30-5.90) m/uL Hgb 8.7 L (13.0-17.5) gm/dL Hct 27.9 L (39.0-53.0) % RDW 17.3 H (11.5-15.5) % Plt Count 27 L (150-450) k/uL Neutrophils # 24.6 H (1.3-7.7) k/uL Neutrophils # (Manual) (1.3-7.7) k/uL Lymphocytes # 0.7 L (1.0-4.8) k/uL Monocytes # 1.1 H (0-1.0) k/uL ABG pH 7.52 H (7.35-7.45) ABG pCO2 27 L (35-45) mmHg ABG pO2 59 L* (83-108) mmHg ABG Total CO2 (19-24) mmol/L ABG O2 Saturation 98.0 H (94-97) % ABG Lactic Acid (0.5-1.6) mmol/L Sodium 131 L (137-145) mmol/L Potassium 3.4 L (3.5-5.1) mmol/L Carbon Dioxide 20 L (22-30) mmol/L Creatinine 0.61 L (0.66-1.25) mg/dL Glucose 112 H (74-99) mg/dL POC Glucose (mg/dL) (70-110) mg/dL Calcium 6.3 L* (8.4-10.2) mg/dL Ionized Calcium Yuval (4.5-5.3) mg/dL Magnesium (1.6-2.3) mg/dL Total Bilirubin 1.5 H (0.2-1.3) mg/dL AST 68 H (17-59) U/L Alkaline Phosphatase 147 H (38-126) U/L Troponin I (0.000-0.034) ng/mL Total Protein 3.2 L (6.3-8.2) g/dL Albumin 1.3 L (3.5-5.0) g/dL Lipase 336 H (23-300) U/L 08/01/23 Range/Units 06:35 WBC (3.8-10.6) k/uL RBC (4.30-5.90) m/uL Hgb (13.0-17.5) gm/dL Hct (39.0-53.0) % RDW (11.5-15.5) % Plt Count (150-450) k/uL Neutrophils # (1.3-7.7) k/uL Neutrophils # (Manual) (1.3-7.7) k/uL Lymphocytes # (1.0-4.8) k/uL Monocytes # (0-1.0) k/uL ABG pH (7.35-7.45) ABG pCO2 (35-45) mmHg ABG pO2 (83-108) mmHg ABG Total CO2 (19-24) mmol/L ABG O2 Saturation (94-97) % ABG Lactic Acid (0.5-1.6) mmol/L Sodium (137-145) mmol/L Potassium (3.5-5.1) mmol/L Carbon Dioxide (22-30) mmol/L Creatinine (0.66-1.25) mg/dL Glucose (74-99) mg/dL POC Glucose (mg/dL) (70-110) mg/dL Calcium (8.4-10.2) mg/dL Ionized Calcium Yuval 4.1 L (4.5-5.3) mg/dL Magnesium (1.6-2.3) mg/dL Total Bilirubin (0.2-1.3) mg/dL AST (17-59) U/L Alkaline Phosphatase (38-126) U/L Troponin I (0.000-0.034) ng/mL Total Protein (6.3-8.2) g/dL Albumin (3.5-5.0) g/dL Lipase (23-300) U/L Microbiology - Last 24 Hours (Table) 07/31/23 22:07 Gram Stain - Preliminary Sputum 07/26/23 11:15 Blood Culture - Final Blood 07/26/23 11:00 Blood Culture - Final Blood Assessment and Plan (1) Leukocytosis Current Visit: Yes Status: Acute Code(s): D72.829 - ELEVATED WHITE BLOOD CELL COUNT, UNSPECIFIED SNOMED Code(s): 332786198 (2) Sepsis Current Visit: Yes Status: Acute Code(s): A41.9 - SEPSIS, UNSPECIFIED ORGANISM SNOMED Code(s): 91853311 (3) UTI (urinary tract infection) Current Visit: Yes Status: Acute Code(s): N39.0 - URINARY TRACT INFECTION, SITE NOT SPECIFIED SNOMED Code(s): 43674041 (4) Aspiration pneumonitis Current Visit: Yes Status: Acute Code(s): J69.0 - PNEUMONITIS DUE TO INHALATION OF FOOD AND VOMIT SNOMED Code(s): 035809145 (5) Pancreatitis Current Visit: Yes Status: Acute Code(s): K85.90 - ACUTE PANCREATITIS WITHOUT NECROSIS OR INFECTION, UNSP SNOMED Code(s): 93464403 Plan: 1patient presented hospitalized weakness episode of nausea vomiting positive UA concerning for catheter assisted UTI failing outpatient oral doxycycline therapy 2-sulfa allergy 3-patient did have elevated liver enzymes ultrasound was negative for acute pro cess, the patient did have evidence of pancreatitis on the CT that may have contributed to some of his symptoms and elevated white count unfortunately patient did have a cardiac arrest and there was concern for aspiration pneumonitis sputum culture has been obtained 4-patient urine has been finalized with E. coli that is not ESBL 5-we will continue the patient on meropenem while waiting for the sputum culture to finalize and monitor clinical course closely Family at the bedside questions answered Dictation was produced using [employer] dictation software. please excuse any grammatical, word or spelling errors. Time with Patient: Greater than 30
--- NOTE | 2023-08-01 15:21 | P.PN ---
Subjective Progress Note Date: 08/01/23 CHIEF COMPLAINT: Abdominal pain HISTORY OF PRESENT ILLNESS: Patient is in the ICU intubated on mechanical ventilation. Patient had cardiopulmonary arrest while he was down for his CT scan of the abdomen. There are concerns that he aspirated. Prolonged downtime of 16 to 17 minutes. Patient is still requiring pressors. Initially there was talk about possible transitioning to comfort care tomorrow. However, this afternoon patient has opened his eyes and is tracking per nursing staff. Afebrile. WBC 26.8 CT scan abdomen pelvis interval development of large bilateral pleural effusions and small basilar infiltrates consistent with pneumonia or atelectasis. Interval development of swelling of the pancreas consistent with acute pancreatitis. Persistent markedly distended stomach with thickening of the wall of the duodenum likely secondary to inflammation. Patient has NG tube in place with 1 L output PHYSICAL EXAM: VITAL SIGNS: Reviewed. GENERAL: no acute distress. ABDOMEN: Soft. Obese. Mildly distended. ASSESSMENT: 1. Acute pancreatitis. No gallstones noted on ultrasound 2. Colitis 3. UTI with sepsis 4. Left buttocks decubitus ulcer 5. Distended stomach and thickening of the duodenum likely secondary to inflammation noted on CT PLAN: -No surgical intervention planned -Continue NG tube for decompression -Keep patient n.p.o. for now -Antibiotics per infectious disease -Continue ICU management -Continue supportive care Physician Learning Facilitator note has been reviewed by physician. Signing provider agrees with the documented findings, assessment, and plan of care. Objective - Vital Signs Vital signs: Vital Signs Temp 96.8 F L 08/01/23 15:00 Pulse 50 L 08/01/23 15:00 Resp 18 08/01/23 15:00 BP 95/73 08/01/23 15:00 Pulse Ox 100 08/01/23 15:00 FiO2 50 08/01/23 13:00 Intake & Output 07/31/23 08/01/23 08/01/23 18:59 06:59 18:59 Intake Total 955.022 334.768 584.194 Output Total 1320 1425 1550 Balance -364.978 -1090.232 -965.806 Weight 107.955 kg 107.955 kg Intake: IV 220 180 10 Meropenem 1 gm In Sodium 100 100 Chloride 0.9% 100 ml @ 33 .3 mls/hr IVPB Q8HR [facility] Rx#:[id number] Sodium Chloride 0.9% 1, 120 80 10 000 ml @ 10 mls/hr IV . Q24H [facility] Rx#:[id number] Intake, IV Titration 735.022 154.768 574.194 Amount Calcium Gluconate in NaCl 100 1 gm In Saline 1 100ml. bag @ 100 mls/hr IVPB ONCE ONE Rx#:[id number] Meropenem 1 gm In Sodium 100 Chloride 0.9% 100 ml @ 33 .3 mls/hr IVPB Q8HR [facility] Rx#:[id number] Norepinephrine 32 mg In 73.182 12.117 Sodium Chloride 0.9% 218 ml @ 0.03 MCG/KG/MIN 1. 536 mls/hr IV .Q24H [facility] Rx#:[id number] Phenylephrine 40 mg In 395.54 488.343 Sodium Chloride 0.9% 250 ml @ 0.5 MCG/KG/MIN 15. 554 mls/hr IV .[id number] [facility] Rx#:[id number] Vasopressin 20 unit In 66.300 0 Sodium Chloride 0.9% 50 ml @ 0.03 UNITS/MIN 4.59 mls/hr IV .[id number] [facility] Rx# :[id number] propofoL 1,000 mg In 142.651 85.851 Empty Bag 1 bag @ 15 MCG/ KG/MIN 9.83 mls/hr IV . [id number] [facility] Rx#:[id number] Output: Gastric Drainage 900 Urine 1320 1425 650 Other: Voiding Method Indwelling Catheter Indwelling Catheter Indwelling Catheter ABP, PAP, CO, CI - Last Documented Arterial Blood Pressure 114/64 - Labs CBC & Chem 7: 08/01/23 05:10 08/01/23 05:10 Labs: Abnormal Lab Results - Last 24 Hours (Table) 07/31/23 07/31/23 07/31/23 Range/Units 17:59 21:56 21:56 WBC 24.2 H (3.8-10.6) k/uL RBC 3.66 L (4.30-5.90) m/uL Hgb 9.7 L (13.0-17.5) gm/dL Hct 31.1 L (39.0-53.0) % RDW 17.2 H (11.5-15.5) % Plt Count 33 L (150-450) k/uL Neutrophils # (1.3-7.7) k/uL Neutrophils # (Manual) 22.70 H (1.3-7.7) k/uL Lymphocytes # (1.0-4.8) k/uL Monocytes # (0-1.0) k/uL ABG pH (7.35-7.45) ABG pCO2 (35-45) mmHg ABG pO2 (83-108) mmHg ABG Total CO2 (19-24) mmol/L ABG O2 Saturation (94-97) % ABG Lactic Acid (0.5-1.6) mmol/L Sodium 130 L (137-145) mmol/L Potassium (3.5-5.1) mmol/L Carbon Dioxide (22-30) mmol/L Creatinine 0.61 L (0.66-1.25) mg/dL Glucose (74-99) mg/dL POC Glucose (mg/dL) 69 L (70-110) mg/dL Calcium 6.1 L* (8.4-10.2) mg/dL Ionized Calcium Yuval (4.5-5.3) mg/dL Magnesium 1.2 L (1.6-2.3) mg/dL Total Bilirubin (0.2-1.3) mg/dL AST 92 H (17-59) U/L Alkaline Phosphatase 160 H (38-126) U/L Troponin I (0.000-0.034) ng/mL Total Protein 3.7 L (6.3-8.2) g/dL Albumin 1.6 L (3.5-5.0) g/dL Lipase (23-300) U/L 07/31/23 07/31/23 07/31/23 Range/Units 21:56 21:56 21:56 WBC (3.8-10.6) k/uL RBC (4.30-5.90) m/uL Hgb (13.0-17.5) gm/dL Hct (39.0-53.0) % RDW (11.5-15.5) % Plt Count (150-450) k/uL Neutrophils # (1.3-7.7) k/uL Neutrophils # (Manual) (1.3-7.7) k/uL Lymphocytes # (1.0-4.8) k/uL Monocytes # (0-1.0) k/uL ABG pH 7.28 L (7.35-7.45) ABG pCO2 51 H (35-45) mmHg ABG pO2 (83-108) mmHg ABG Total CO2 25 H (19-24) mmol/L ABG O2 Saturation 98.6 H (94-97) % ABG Lactic Acid 3.2 H* (0.5-1.6) mmol/L Sodium (137-145) mmol/L Potassium (3.5-5.1) mmol/L Carbon Dioxide (22-30) mmol/L Creatinine (0.66-1.25) mg/dL Glucose (74-99) mg/dL POC Glucose (mg/dL) (70-110) mg/dL Calcium (8.4-10.2) mg/dL Ionized Calcium Yuval (4.5-5.3) mg/dL Magnesium (1.6-2.3) mg/dL Total Bilirubin (0.2-1.3) mg/dL AST (17-59) U/L Alkaline Phosphatase (38-126) U/L Troponin I 0.045 H* (0.000-0.034) ng/mL Total Protein (6.3-8.2) g/dL Albumin (3.5-5.0) g/dL Lipase (23-300) U/L 08/01/23 08/01/23 08/01/23 Range/Units 05:10 05:10 06:20 WBC 26.8 H (3.8-10.6) k/uL RBC 3.35 L (4.30-5.90) m/uL Hgb 8.7 L (13.0-17.5) gm/dL Hct 27.9 L (39.0-53.0) % RDW 17.3 H (11.5-15.5) % Plt Count 27 L (150-450) k/uL Neutrophils # 24.6 H (1.3-7.7) k/uL Neutrophils # (Manual) (1.3-7.7) k/uL Lymphocytes # 0.7 L (1.0-4.8) k/uL Monocytes # 1.1 H (0-1.0) k/uL ABG pH 7.52 H (7.35-7.45) ABG pCO2 27 L (35-45) mmHg ABG pO2 59 L* (83-108) mmHg ABG Total CO2 (19-24) mmol/L ABG O2 Saturation 98.0 H (94-97) % ABG Lactic Acid (0.5-1.6) mmol/L Sodium 131 L (137-145) mmol/L Potassium 3.4 L (3.5-5.1) mmol/L Carbon Dioxide 20 L (22-30) mmol/L Creatinine 0.61 L (0.66-1.25) mg/dL Glucose 112 H (74-99) mg/dL POC Glucose (mg/dL) (70-110) mg/dL Calcium 6.3 L* (8.4-10.2) mg/dL Ionized Calcium Yuval (4.5-5.3) mg/dL Magnesium (1.6-2.3) mg/dL Total Bilirubin 1.5 H (0.2-1.3) mg/dL AST 68 H (17-59) U/L Alkaline Phosphatase 147 H (38-126) U/L Troponin I (0.000-0.034) ng/mL Total Protein 3.2 L (6.3-8.2) g/dL Albumin 1.3 L (3.5-5.0) g/dL Lipase 336 H (23-300) U/L 08/01/23 Range/Units 06:35 WBC (3.8-10.6) k/uL RBC (4.30-5.90) m/uL Hgb (13.0-17.5) gm/dL Hct (39.0-53.0) % RDW (11.5-15.5) % Plt Count (150-450) k/uL Neutrophils # (1.3-7.7) k/uL Neutrophils # (Manual) (1.3-7.7) k/uL Lymphocytes # (1.0-4.8) k/uL Monocytes # (0-1.0) k/uL ABG pH (7.35-7.45) ABG pCO2 (35-45) mmHg ABG pO2 (83-108) mmHg ABG Total CO2 (19-24) mmol/L ABG O2 Saturation (94-97) % ABG Lactic Acid (0.5-1.6) mmol/L Sodium (137-145) mmol/L Potassium (3.5-5.1) mmol/L Carbon Dioxide (22-30) mmol/L Creatinine (0.66-1.25) mg/dL Glucose (74-99) mg/dL POC Glucose (mg/dL) (70-110) mg/dL Calcium (8.4-10.2) mg/dL Ionized Calcium Yuval 4.1 L (4.5-5.3) mg/dL Magnesium (1.6-2.3) mg/dL Total Bilirubin (0.2-1.3) mg/dL AST (17-59) U/L Alkaline Phosphatase (38-126) U/L Troponin I (0.000-0.034) ng/mL Total Protein (6.3-8.2) g/dL Albumin (3.5-5.0) g/dL Lipase (23-300) U/L Microbiology - Last 24 Hours (Table) 07/31/23 22:07 Gram Stain - Preliminary Sputum 07/26/23 11:15 Blood Culture - Final Blood 07/26/23 11:00 Blood Culture - Final Blood
[2023-08-01] MEDS ORDERED: Potassium Replacement Protocol 1 EACH MISC MISCELLANE PRN (17:03)
--- NOTE | 2023-08-01 17:21 | P.PN ---
Subjective Bradycardia This is a very pleasant and unfortunate 57-year-old gentleman with a past medical history significant for history of quadriplegia secondary to injury related to hockey as well as history of urinary tract infection as well as multiple comorbid conditions. The patient lives at home and has a visiting nurse checking on him every other day. It was noted that he was hypotensive. He was experiencing symptoms of being tired and fatigued and has no energy and also experiencing symptoms of abdominal discomfort. He was brought to the [facility] for further investigation. He was diagnosed with acute pancreatitis. Also he was diagnosed with possible UTI. He was hypotension requiring initially IV fluid with no response and subsequently he was started on norepinephrine to support his blood pressure. No symptoms of any chest pain or chest discomfort and no presyncope or syncope and no shortness of breath. We consulted to see the patient because of bradycardia. His heart rate has been in the 50s. The patient was asymptomatic with the bradycardia. No history of coronary artery disease or congestive heart failure or cardiac arrhythmia and he never seen a fish net stringer before. Further investigation performed including an EKG and that showed sinus mechanism with borderline first-degree AV block and PACs. Troponin came in to be unremarkable with the chest x-ray did not show any acute abnormalities. The blood work indicated possible acute pancreatitis and also he underwent a CT scan of the abdomen and pelvis. The patient was not on any AV jerson willi agents. No thyroid function test has performed nor echocardiogram as of yet. Examination revealed regular rhythm with a distant heart sounds and diminished breathing sounds bilaterally and atrophy of the upper and lower extremities. July 28, 2023 The patient was seen this morning. He continues to be hypotensive on vasopressors. He is not bradycardic anymore and currently he is slightly tachycardic but even that the heart rate has been coming down. The echo revealed normal LV systolic function. TSH and free T4 came in to be unremarkable. From the cardiovascular standpoint of view, I would continue the current medical regimen and continue supporting the blood pressure. Examination reveals regular rhythm with clear breathing sounds bilaterally and no edema was noted. July 29, 2023 The patient was seen and evaluated this morning. He continues to be hypotensive requiring vasopressors but we are coming down with the doses. His heart rate has improved. The echo showed normal LV systolic function with no significant valvular abnormalities. He underwent yesterday CT scan of the chest and that showed bilateral pleural effusion. Definitely he seems edematous. He might benefit from 1 dose of Lasix carefully giving the marginally low blood pressure. The examination revealed regular rhythm with a distant heart sounds and diminished breathing sounds bilaterally and mild bilateral lower extremities edema. July 30, 2023 The patient was seen and evaluated this morning. He seems to be slightly towards with some change in mental status/lethargy. Beside that he continues to be on vasopressors and the doses continues to be the same. He was given IV fluid yesterday. He seems to be in heart failure today with bilateral lower extremities edema which has definitely progressed compared to the day before and also he is requiring more oxygen and currently he is on nonrebreather. I am going to give the patient 20 mg of Lasix IV and monitor the urine output as well as continue supporting the blood pressure using vasopressors. The echo showed normal LV systolic function with no significant valvular abnormalities. The chest x-ray showed definitely bilateral pleural effusion and worse finding compared to before. The examination revealed regular rhythm with a distant heart sounds and diminished bilateral breathing sounds as well as bilateral lower extremities pitting edema was noted. 07/30 Patient seen and examined. Have been able to come down on pressors. Not eating or drinking much. Clear liquid diet. He did recieive IV Lasix and CVP has decreased down to 3-4 currently. No chest pain or SOB. 07/31 patient seen and examined. Unfortunately patient went down for CAT scan and had cardiac arrest. This appears to be pulseless electrical activity and no significant arrhythmia noted. He was however noted to be tachycardiac with atrial fibrillation which in part appears worse when he is on norepinephrine. He therefore was switched to Hemant-Synephrine and is also on vasopressin. He is requiring PEEP of 10 and remains intubated. Initially there was concern regarding patient not making improvements however does have some neurologic function and following some commands. He was placed on amiodarone drip secondary to A. fib with RVR and currently sinus rhythm, occasionally sinus bradycardia. His albumin is severely low at 1.3 most of his edema likely related to third spacing. Assessment Acute pancreatitis UTI/sepsis Hypotension require vasopressors Bradycardia which has resolved Fluid overload Quadriplegia Bilateral pleural effusion Multiple comorbid conditions status post cardiac arrest, more likely pulmonary related as well as likely aspiration during code Plan Patient with severe sepsis, severe multiorgan failure. He does have severe thrombocytopenia as well. Not a good candidate for anticoagulation. Additionally he had cardiac arrest which appears more pulmonary related. Check repeat troponin for completeness sake. Continue with amiodarone and transition to oral amiodarone. Continue with current care. Prognosis guarded. Check CVP, if significant elevated may consider Lasix however majority of edema likely related to third spacing. Objective - Vital Signs Vital signs: Vital Signs Temp 97.4 F L 08/01/23 16:00 Pulse 60 08/01/23 16:09 Resp 18 08/01/23 16:00 BP 107/40 08/01/23 16:00 Pulse Ox 100 08/01/23 16:00 FiO2 50 08/01/23 16:00 Intake & Output 07/31/23 08/01/23 08/01/23 18:59 06:59 18:59 Intake Total 955.022 334.768 584.194 Output Total 1320 1425 1650 Balance -364.978 -1090.232 -1065.806 Weight 107.955 kg 107.955 kg Intake: IV 220 180 10 Meropenem 1 gm In Sodium 100 100 Chloride 0.9% 100 ml @ 33 .3 mls/hr IVPB Q8HR [facility] Rx#:[id number] Sodium Chloride 0.9% 1, 120 80 10 000 ml @ 10 mls/hr IV . Q24H [facility] Rx#:[id number] Intake, IV Titration 735.022 154.768 574.194 Amount Calcium Gluconate in NaCl 100 1 gm In Saline 1 100ml. bag @ 100 mls/hr IVPB ONCE ONE Rx#:[id number] Meropenem 1 gm In Sodium 100 Chloride 0.9% 100 ml @ 33 .3 mls/hr IVPB Q8HR [facility] Rx#:[id number] Norepinephrine 32 mg In 73.182 12.117 Sodium Chloride 0.9% 218 ml @ 0.03 MCG/KG/MIN 1. 536 mls/hr IV .Q24H [facility] Rx#:[id number] Phenylephrine 40 mg In 395.54 488.343 Sodium Chloride 0.9% 250 ml @ 0.5 MCG/KG/MIN 15. 554 mls/hr IV .[id number] [facility] Rx#:[id number] Vasopressin 20 unit In 66.300 0 Sodium Chloride 0.9% 50 ml @ 0.03 UNITS/MIN 4.59 mls/hr IV .[id number] [facility] Rx# :[id number] propofoL 1,000 mg In 142.651 85.851 Empty Bag 1 bag @ 15 MCG/ KG/MIN 9.83 mls/hr IV . [id number] [facility] Rx#:[id number] Output: Gastric Drainage 900 Urine 1320 1425 750 Other: Voiding Method Indwelling Catheter Indwelling Catheter Indwelling Catheter ABP, PAP, CO, CI - Last Documented Arterial Blood Pressure 116/70 - Labs CBC & Chem 7: 08/01/23 05:10 08/01/23 05:10 Labs: Abnormal Lab Results - Last 24 Hours (Table) 07/31/23 07/31/23 07/31/23 Range/Units 17:59 21:56 21:56 WBC 24.2 H (3.8-10.6) k/uL RBC 3.66 L (4.30-5.90) m/uL Hgb 9.7 L (13.0-17.5) gm/dL Hct 31.1 L (39.0-53.0) % RDW 17.2 H (11.5-15.5) % Plt Count 33 L (150-450) k/uL Neutrophils # (1.3-7.7) k/uL Neutrophils # (Manual) 22.70 H (1.3-7.7) k/uL Lymphocytes # (1.0-4.8) k/uL Monocytes # (0-1.0) k/uL ABG pH (7.35-7.45) ABG pCO2 (35-45) mmHg ABG pO2 (83-108) mmHg ABG Total CO2 (19-24) mmol/L ABG O2 Saturation (94-97) % ABG Lactic Acid (0.5-1.6) mmol/L Sodium 130 L (137-145) mmol/L Potassium (3.5-5.1) mmol/L Carbon Dioxide (22-30) mmol/L Creatinine 0.61 L (0.66-1.25) mg/dL Glucose (74-99) mg/dL POC Glucose (mg/dL) 69 L (70-110) mg/dL Calcium 6.1 L* (8.4-10.2) mg/dL Ionized Calcium Yuval (4.5-5.3) mg/dL Magnesium 1.2 L (1.6-2.3) mg/dL Total Bilirubin (0.2-1.3) mg/dL AST 92 H (17-59) U/L Alkaline Phosphatase 160 H (38-126) U/L Troponin I (0.000-0.034) ng/mL Total Protein 3.7 L (6.3-8.2) g/dL Albumin 1.6 L (3.5-5.0) g/dL Lipase (23-300) U/L 07/31/23 07/31/23 07/31/23 Range/Units 21:56 21:56 21:56 WBC (3.8-10.6) k/uL RBC (4.30-5.90) m/uL Hgb (13.0-17.5) gm/dL Hct (39.0-53.0) % RDW (11.5-15.5) % Plt Count (150-450) k/uL Neutrophils # (1.3-7.7) k/uL Neutrophils # (Manual) (1.3-7.7) k/uL Lymphocytes # (1.0-4.8) k/uL Monocytes # (0-1.0) k/uL ABG pH 7.28 L (7.35-7.45) ABG pCO2 51 H (35-45) mmHg ABG pO2 (83-108) mmHg ABG Total CO2 25 H (19-24) mmol/L ABG O2 Saturation 98.6 H (94-97) % ABG Lactic Acid 3.2 H* (0.5-1.6) mmol/L Sodium (137-145) mmol/L Potassium (3.5-5.1) mmol/L Carbon Dioxide (22-30) mmol/L Creatinine (0.66-1.25) mg/dL Glucose (74-99) mg/dL POC Glucose (mg/dL) (70-110) mg/dL Calcium (8.4-10.2) mg/dL Ionized Calcium Yuval (4.5-5.3) mg/dL Magnesium (1.6-2.3) mg/dL Total Bilirubin (0.2-1.3) mg/dL AST (17-59) U/L Alkaline Phosphatase (38-126) U/L Troponin I 0.045 H* (0.000-0.034) ng/mL Total Protein (6.3-8.2) g/dL Albumin (3.5-5.0) g/dL Lipase (23-300) U/L 08/01/23 08/01/23 08/01/23 Range/Units 05:10 05:10 06:20 WBC 26.8 H (3.8-10.6) k/uL RBC 3.35 L (4.30-5.90) m/uL Hgb 8.7 L (13.0-17.5) gm/dL Hct 27.9 L (39.0-53.0) % RDW 17.3 H (11.5-15.5) % Plt Count 27 L (150-450) k/uL Neutrophils # 24.6 H (1.3-7.7) k/uL Neutrophils # (Manual) (1.3-7.7) k/uL Lymphocytes # 0.7 L (1.0-4.8) k/uL Monocytes # 1.1 H (0-1.0) k/uL ABG pH 7.52 H (7.35-7.45) ABG pCO2 27 L (35-45) mmHg ABG pO2 59 L* (83-108) mmHg ABG Total CO2 (19-24) mmol/L ABG O2 Saturation 98.0 H (94-97) % ABG Lactic Acid (0.5-1.6) mmol/L Sodium 131 L (137-145) mmol/L Potassium 3.4 L (3.5-5.1) mmol/L Carbon Dioxide 20 L (22-30) mmol/L Creatinine 0.61 L (0.66-1.25) mg/dL Glucose 112 H (74-99) mg/dL POC Glucose (mg/dL) (70-110) mg/dL Calcium 6.3 L* (8.4-10.2) mg/dL Ionized Calcium Yuval (4.5-5.3) mg/dL Magnesium (1.6-2.3) mg/dL Total Bilirubin 1.5 H (0.2-1.3) mg/dL AST 68 H (17-59) U/L Alkaline Phosphatase 147 H (38-126) U/L Troponin I (0.000-0.034) ng/mL Total Protein 3.2 L (6.3-8.2) g/dL Albumin 1.3 L (3.5-5.0) g/dL Lipase 336 H (23-300) U/L 08/01/23 Range/Units 06:35 WBC (3.8-10.6) k/uL RBC (4.30-5.90) m/uL Hgb (13.0-17.5) gm/dL Hct (39.0-53.0) % RDW (11.5-15.5) % Plt Count (150-450) k/uL Neutrophils # (1.3-7.7) k/uL Neutrophils # (Manual) (1.3-7.7) k/uL Lymphocytes # (1.0-4.8) k/uL Monocytes # (0-1.0) k/uL ABG pH (7.35-7.45) ABG pCO2 (35-45) mmHg ABG pO2 (83-108) mmHg ABG Total CO2 (19-24) mmol/L ABG O2 Saturation (94-97) % ABG Lactic Acid (0.5-1.6) mmol/L Sodium (137-145) mmol/L Potassium (3.5-5.1) mmol/L Carbon Dioxide (22-30) mmol/L Creatinine (0.66-1.25) mg/dL Glucose (74-99) mg/dL POC Glucose (mg/dL) (70-110) mg/dL Calcium (8.4-10.2) mg/dL Ionized Calcium Yuval 4.1 L (4.5-5.3) mg/dL Magnesium (1.6-2.3) mg/dL Total Bilirubin (0.2-1.3) mg/dL AST (17-59) U/L Alkaline Phosphatase (38-126) U/L Troponin I (0.000-0.034) ng/mL Total Protein (6.3-8.2) g/dL Albumin (3.5-5.0) g/dL Lipase (23-300) U/L Microbiology - Last 24 Hours (Table) 07/31/23 22:07 Gram Stain - Preliminary Sputum 07/26/23 11:15 Blood Culture - Final Blood 07/26/23 11:00 Blood Culture - Final Blood
[2023-08-01] MEDS: POTASSIUM CHLORIDE 20 MEQ in WATER FOR INJECTION 1 100ML.BAG IVPB SCH (17:35)
[2023-08-01 18:10] LABS: Glucose,Whole Blood 110 mg/dL (70-110)
[2023-08-01] MEDS: AMIODARONE 200 MG TAB PO SCH (21:02)
[2023-08-01] MEDS: NOREPINEPHRINE 4 MG in SODIUM CHLORIDE 0.9% 250 ML IV SCH (21:35)
--- NOTE | 2023-08-01 22:44 | PN ---
PROGRESS NOTE SUBJECTIVE: This is a 57-year-old white male with pancreatitis, in the ICU still. He has UTI, E coli sepsis. He is on BiPAP for his breathing. His lipase is down to 303 today. He went into cardiac arrest on the CAT scan, initial rhythm PEA arrest. CPR initiated following ACLS protocol, 15 minutes CPR. He then went into AFib with RVR. Synchronized cardioversion was delivered and is more stable. This happened apparently last night under code blue, which I never heard about until just now. The patient likely aspirated, spontaneous circulation. He was made a no code by his family. He is comfort care sometime tomorrow. He is on the ventilator currently. Prognosis is extremely guarded. ASSESSMENT: Status post cardiac arrest, likely aspiration, atrial fibrillation with RVR, severe hypotension due to pancreatitis and sepsis. Apparently, he is made no code and possibly comfort care. Hypoxemic respiratory failure, gastroenteritis, colitis, pancreatitis, UTI, hypercapnic respiratory failure, status post cardiac arrest, 15 minutes CPR. He is unintubated, vasopressin, synephrine, amiodarone, is a DNR. Continue to follow. Possibly comfort care. MMODL / IJN: [id number] /
[2023-08-02 00:48] LABS: Glucose,Whole Blood 94 mg/dL (70-110)
[2023-08-02] MEDS: NOREPINEPHRINE 8 MG in SODIUM CHLORIDE 0.9% 250 ML IV SCH (02:54)
[2023-08-02 04:32] LABS: ALT 71 U/L (4-49); AST 133 U/L (17-59); African American GFR (CKD) >90 (>60 ml/min/1.73 sqM); Albumin 1.6 g/dL (3.5-5.0); Alkaline Phosphatase 217 U/L (38-126); Anion Gap 3 mmol/L; Blood Urea Nitrogen 12 mg/dL (9-20); Calcium 6.8 mg/dL (8.4-10.2); Carbon Dioxide 19 mmol/L (22-30); Chloride 109 mmol/L (98-107); Glucose 87 mg/dL (74-99); Non-African American GFR(CKD) >90 (>60 ml/min/1.73 sqM); Potassium 4.2 mmol/L (3.5-5.1); Sodium 131 mmol/L (137-145); Total Bilirubin 1.1 mg/dL (0.2-1.3); Total Protein 3.8 g/dL (6.3-8.2)
[2023-08-02 04:39] LABS: Anisocytosis Slight; Basophils # (A) 0.1 k/uL (0-0.2); Basophils % (A) 0 %; Eosinophils % (A) 0 %; HCT 30.3 % (39.0-53.0); HGB 10.1 gm/dL (13.0-17.5); Lymphocytes # (A) 0.7 k/uL (1.0-4.8); Lymphocytes % (A) 3 %; MCH 26.8 pg (25.0-35.0); MCHC 33.1 g/dL (31.0-37.0); MCV 80.7 fL (80.0-100.0); Mean Platelet Volume 11.7; Microcytosis Slight; Monocytes # (A) 1.1 k/uL (0-1.0); Monocytes % (A) 5 %; Neutrophils # (A) 21.1 k/uL (1.3-7.7); Neutrophils % (A) 91 %; RBC 3.76 m/uL (4.30-5.90); RDW 17.3 % (11.5-15.5); WBC 23.2 k/uL (3.8-10.6)
[2023-08-02 05:41] LABS: ABG Base Excess -2.6 mmol/L; ABG HCO3 21 mmol/L (21-25); ABG Oxygen Saturation 99.8 % (94-97); ABG PCO2 29 mmHg (35-45); ABG PH 7.48 (7.35-7.45); ABG PO2 146 mmHg (83-108); ABG TCO2 22 mmol/L (19-24); Allen Test Performed? Yes
[2023-08-02 07:12] LABS: Poikilocytosis (M) Present
[2023-08-02 07:13] LABS: RBC Fragments Present
[2023-08-02 07:17] LABS: Platelet Count 48 k/uL (150-450)
--- NOTE | 2023-08-02 09:26 | XR ---
EXAMINATION TYPE: XR chest 1V portable DATE OF EXAM: 08/02/2023 Comparison: 08/01/2023 Clinical History: 57-year-old male Tube placement Findings: Right IJ CVC tip at the lower SVC level. Patient obliqued and slightly rotated towards the left. Hear t mildly enlarged. Uncoiling small to moderate bilateral pleural effusions with minimal lower lung op acities. ET tube satisfactory. NG tube courses below the diaphragm. Impression: Limited, oblique exam. Ongoing small to moderate pleural effusions with adjacent mid and lower lung o pacities.
[2023-08-02 11:43] VITALS: BMI 31.6
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
[2023-08-02 12:08] LABS: Glucose,Whole Blood 96 mg/dL (70-110)
--- NOTE | 2023-08-02 16:52 | P.PN ---
Subjective Progress Note Date: 08/02/23 CHIEF COMPLAINT: Abdominal pain HISTORY OF PRESENT ILLNESS: Patient is in the ICU intubated on mechanical ventilation. Patient had cardiopulmonary arrest while he was down for his CT scan of the abdomen. There are concerns that he aspirated. Code status DNR. Patient remains on vasopressors. PHYSICAL EXAM: VITAL SIGNS: Reviewed. GENERAL: no acute distress. ABDOMEN: Soft. Obese. nondistended ASSESSMENT: 1. Acute pancreatitis. No gallstones noted on ultrasound 2. Colitis 3. UTI with sepsis 4. Left buttocks decubitus ulcer 5. Distended stomach and thickening of the duodenum likely secondary to inflammation noted on CT PLAN: -Family has decided that they did not want trach or PEG placement. They have decided to proceed with comfort care measures. Physician [employer] note has been reviewed by physician. Signing provider agrees with the documented findings, assessment, and plan of care. Objective - Vital Signs Vital signs: Vital Signs Temp 98.5 F 08/02/23 16:00 Pulse 120 H 08/02/23 16:23 Resp 18 08/02/23 16:00 BP 112/87 08/02/23 12:00 Pulse Ox 98 08/02/23 16:00 FiO2 40 08/02/23 16:00 Intake & Output 08/01/23 08/02/23 08/02/23 18:59 06:59 18:59 Intake Total 864.353 935.681 778.968 Output Total 1775 745 458 Balance -910.647 190.681 320.968 Weight 107.955 kg 111.725 kg 111.725 kg Intake: IV 10 120 174.9 Meropenem 1 gm In Sodium 99.9 Chloride 0.9% 100 ml @ 33 .3 mls/hr IVPB Q8HR [facility] Rx#:[id number] Sodium Chloride 0.9% 1, 10 120 75 000 ml @ 10 mls/hr IV . Q24H MANDA Rx#:[id number] Intake, IV Titration 854.353 815.681 604.068 Amount Norepinephrine 4 mg In 254.000 Sodium Chloride 0.9% 250 ml @ 0.03 MCG/KG/MIN 12. 339 mls/hr IV .[id number] MANDA Rx#:[id number] Norepinephrine 8 mg In 86.481 Sodium Chloride 0.9% 250 ml @ 0.03 MCG/KG/MIN 6. 267 mls/hr IV .Q24H MANDA Rx#:[id number] Phenylephrine 40 mg In 717.502 254 465.688 Sodium Chloride 0.9% 250 ml @ 0.5 MCG/KG/MIN 15. 554 mls/hr IV .[id number] MANDA Rx#:[id number] Vasopressin 20 unit In 51 47.532 51 Sodium Chloride 0.9% 50 ml @ 0.03 UNITS/MIN 4.59 mls/hr IV .[id number] [facility]DA Rx# :[id number] propofoL 1,000 mg In 85.851 173.668 87.38 Empty Bag 1 bag @ 15 MCG/ KG/MIN 9.83 mls/hr IV . [id number] MANDA Rx#:[id number] Output: Gastric Drainage 900 Urine 875 745 458 Other: Voiding Method Indwelling Catheter Indwelling Catheter Indwelling Catheter ABP, PAP, CO, CI - Last Documented Arterial Blood Pressure 125/67 - Labs CBC & Chem 7: 08/02/23 04:05 08/02/23 04:05 Labs: Abnormal Lab Results - Last 24 Hours (Table) 08/02/23 08/02/23 08/02/23 Range/Units 04:05 04:05 05:41 WBC 23.2 H (3.8-10.6) k/uL RBC 3.76 L (4.30-5.90) m/uL Hgb 10.1 L (13.0-17.5) gm/dL Hct 30.3 L (39.0-53.0) % RDW 17.3 H (11.5-15.5) % Plt Count 48 L D (150-450) k/uL Neutrophils # 21.1 H (1.3-7.7) k/uL Lymphocytes # 0.7 L (1.0-4.8) k/uL Monocytes # 1.1 H (0-1.0) k/uL ABG pH 7.48 H (7.35-7.45) ABG pCO2 29 L (35-45) mmHg ABG pO2 146 H (83-108) mmHg ABG O2 Saturation 99.8 H (94-97) % Sodium 131 L (137-145) mmol/L Chloride 109 H (98-107) mmol/L Carbon Dioxide 19 L (22-30) mmol/L Creatinine 0.57 L (0.66-1.25) mg/dL Calcium 6.8 L (8.4-10.2) mg/dL AST 133 H (17-59) U/L ALT 71 H (4-49) U/L Alkaline Phosphatase 217 H (38-126) U/L Total Protein 3.8 L (6.3-8.2) g/dL Albumin 1.6 L (3.5-5.0) g/dL Microbiology - Last 24 Hours (Table) 07/31/23 22:07 Gram Stain - Preliminary Sputum Sputum Culture - Preliminary Yeast
--- NOTE | 2023-08-02 17:14 | P.PN ---
Subjective Bradycardia This is a very pleasant and unfortunate 57-year-old gentleman with a past medical history significant for history of quadriplegia secondary to injury related to hockey as well as history of urinary tract infection as well as multiple comorbid conditions. The patient lives at home and has a visiting nurse checking on him every other day. It was noted that he was hypotensive. He was experiencing symptoms of being tired and fatigued and has no energy and also experiencing symptoms of abdominal discomfort. He was brought to the [facility] for further investigation. He was diagnosed with acute pancreatitis. Also he was diagnosed with possible UTI. He was hypotension requiring initially IV fluid with no response and subsequently he was started on norepinephrine to support his blood pressure. No symptoms of any chest pain or chest discomfort and no presyncope or syncope and no shortness of breath. We consulted to see the patient because of bradycardia. His heart rate has been in the 50s. The patient was asymptomatic with the bradycardia. No history of coronary artery disease or congestive heart failure or cardiac arrhythmia and he never seen a pillow agent before. Further investigation performed including an EKG and that showed sinus mechanism with borderline first-degree AV block and PACs. Troponin came in to be unremarkable with the chest x-ray did not show any acute abnormalities. The blood work indicated possible acute pancreatitis and also he underwent a CT scan of the abdomen and pelvis. The patient was not on any AV jerson willi agents. No thyroid function test has performed nor echocardiogram as of yet. Examination revealed regular rhythm with a distant heart sounds and diminished breathing sounds bilaterally and atrophy of the upper and lower extremities. July 28, 2023 The patient was seen this morning. He continues to be hypotensive on vasopressors. He is not bradycardic anymore and currently he is slightly tachycardic but even that the heart rate has been coming down. The echo revealed normal LV systolic function. TSH and free T4 came in to be unremarkable. From the cardiovascular standpoint of view, I would continue the current medical regimen and continue supporting the blood pressure. Examination reveals regular rhythm with clear breathing sounds bilaterally and no edema was noted. July 29, 2023 The patient was seen and evaluated this morning. He continues to be hypotensive requiring vasopressors but we are coming down with the doses. His heart rate has improved. The echo showed normal LV systolic function with no significant valvular abnormalities. He underwent yesterday CT scan of the chest and that showed bilateral pleural effusion. Definitely he seems edematous. He might benefit from 1 dose of Lasix carefully giving the marginally low blood pressure. The examination revealed regular rhythm with a distant heart sounds and diminished breathing sounds bilaterally and mild bilateral lower extremities edema. July 30, 2023 The patient was seen and evaluated this morning. He seems to be slightly towards with some change in mental status/lethargy. Beside that he continues to be on vasopressors and the doses continues to be the same. He was given IV fluid yesterday. He seems to be in heart failure today with bilateral lower extremities edema which has definitely progressed compared to the day before and also he is requiring more oxygen and currently he is on nonrebreather. I am going to give the patient 20 mg of Lasix IV and monitor the urine output as well as continue supporting the blood pressure using vasopressors. The echo showed normal LV systolic function with no significant valvular abnormalities. The chest x-ray showed definitely bilateral pleural effusion and worse finding compared to before. The examination revealed regular rhythm with a distant heart sounds and diminished bilateral breathing sounds as well as bilateral lower extremities pitting edema was noted. 07/30 Patient seen and examined. Have been able to come down on pressors. Not eating or drinking much. Clear liquid diet. He did recieive IV Lasix and CVP has decreased down to 3-4 currently. No chest pain or SOB. 07/31 patient seen and examined. Unfortunately patient went down for CAT scan and had cardiac arrest. This appears to be pulseless electrical activity and no significant arrhythmia noted. He was however noted to be tachycardiac with atrial fibrillation which in part appears worse when he is on norepinephrine. He therefore was switched to Hemant-Synephrine and is also on vasopressin. He is requiring PEEP of 10 and remains intubated. Initially there was concern regarding patient not making improvements however does have some neurologic function and following some commands. He was placed on amiodarone drip secondary to A. fib with RVR and currently sinus rhythm, occasionally sinus bradycardia. His albumin is severely low at 1.3 most of his edema likely related to third spacing. 08/01 patient seen and examined. Patient is maintained on oral amiodarone and has had sinus tachycardia usually with patient manipulation. Patient's family evaluating [facility] this patient has had continued decline. Assessment Acute pancreatitis UTI/sepsis Hypotension require vasopressors Bradycardia which has resolved Fluid overload Quadriplegia Bilateral pleural effusion Multiple comorbid conditions status post cardiac arrest, more likely pulmonary related as well as likely aspiration during code Plan patient with multiorgan failure and has not had any significant improvement. Patient appears appropriate for [facility], hospice. Objective - Vital Signs Vital signs: Vital Signs Temp 98.5 F 08/02/23 16:00 Pulse 120 H 08/02/23 16:23 Resp 18 08/02/23 16:00 BP 112/87 08/02/23 12:00 Pulse Ox 98 08/02/23 16:00 FiO2 40 08/02/23 16:00 Intake & Output 08/01/23 08/02/23 08/02/23 18:59 06:59 18:59 Intake Total 864.353 935.681 814.897 Output Total 1775 745 458 Balance -910.647 190.681 356.897 Weight 107.955 kg 111.725 kg 111.725 kg Intake: IV 10 120 174.9 Meropenem 1 gm In Sodium 99.9 Chloride 0.9% 100 ml @ 33 .3 mls/hr IVPB Q8HR [facility] Rx#:[id number] Sodium Chloride 0.9% 1, 10 120 75 000 ml @ 10 mls/hr IV . Q24H [facility] Rx#:[id number] Intake, IV Titration 854.353 815.681 639.997 Amount Norepinephrine 4 mg In 254.000 Sodium Chloride 0.9% 250 ml @ 0.03 MCG/KG/MIN 12. 339 mls/hr IV .[id number] [facility] Rx#:[id number] Norepinephrine 8 mg In 86.481 Sodium Chloride 0.9% 250 ml @ 0.03 MCG/KG/MIN 6. 267 mls/hr IV .Q24H [facility] Rx#:[id number] Phenylephrine 40 mg In 717.502 254 501.617 Sodium Chloride 0.9% 250 ml @ 0.5 MCG/KG/MIN 15. 554 mls/hr IV .[id number] [facility] Rx#:[id number] Vasopressin 20 unit In 51 47.532 51 Sodium Chloride 0.9% 50 ml @ 0.03 UNITS/MIN 4.59 mls/hr IV .[id number] [facility] Rx# :[id number] propofoL 1,000 mg In 85.851 173.668 87.38 Empty Bag 1 bag @ 15 MCG/ KG/MIN 9.83 mls/hr IV . [id number] [facility] Rx#:[id number] Output: Gastric Drainage 900 Urine 875 745 458 Other: Voiding Method Indwelling Catheter Indwelling Catheter Indwelling Catheter ABP, PAP, CO, CI - Last Documented Arterial Blood Pressure 125/67 - Labs CBC & Chem 7: 08/02/23 04:05 08/02/23 04:05 Labs: Abnormal Lab Results - Last 24 Hours (Table) 08/02/23 08/02/23 08/02/23 Range/Units 04:05 04:05 05:41 WBC 23.2 H (3.8-10.6) k/uL RBC 3.76 L (4.30-5.90) m/uL Hgb 10.1 L (13.0-17.5) gm/dL Hct 30.3 L (39.0-53.0) % RDW 17.3 H (11.5-15.5) % Plt Count 48 L D (150-450) k/uL Neutrophils # 21.1 H (1.3-7.7) k/uL Lymphocytes # 0.7 L (1.0-4.8) k/uL Monocytes # 1.1 H (0-1.0) k/uL ABG pH 7.48 H (7.35-7.45) ABG pCO2 29 L (35-45) mmHg ABG pO2 146 H (83-108) mmHg ABG O2 Saturation 99.8 H (94-97) % Sodium 131 L (137-145) mmol/L Chloride 109 H (98-107) mmol/L Carbon Dioxide 19 L (22-30) mmol/L Creatinine 0.57 L (0.66-1.25) mg/dL Calcium 6.8 L (8.4-10.2) mg/dL AST 133 H (17-59) U/L ALT 71 H (4-49) U/L Alkaline Phosphatase 217 H (38-126) U/L Total Protein 3.8 L (6.3-8.2) g/dL Albumin 1.6 L (3.5-5.0) g/dL Microbiology - Last 24 Hours (Table) 07/31/23 22:07 Gram Stain - Preliminary Sputum Sputum Culture - Preliminary Yeast
[2023-08-02 18:07] LABS: Glucose,Whole Blood 100 mg/dL (70-110)
--- NOTE | 2023-08-02 23:26 | PN ---
PROGRESS NOTE SUBJECTIVE: The patient remains in ICU. He had a chest x-ray, which showed limited opening exam, small to moderate effusion adjacent, mid and lower lung opacities. He is in room 260, he is on mechanical ventilator. PEEP has dropped from 10 to 5. Blood gases were down to 45%, respiratory FiO2 is down to 40. He is on vasopressin, propofol, norepinephrine, Hemant-Synephrine. He is a DNR, much more awake and alert. Possibly trach and PEG versus comfort care. We will see how it goes. Prognosis is guarded. He is on meropenem, IV antibiotics. Moderate pleural effusions on chest x-ray, mid and lower lung opacities. Hemoglobin is 10, platelets 48, sodium 131, potassium 4.2, creatinine 0.57. Follows some simple commands. Blood pressure 112/87, FiO2 40, 100%, pulse 109, respiratory rate 16 to 18, temp 98.7. White count is down to 23,000, hemoglobin is 10.1, sodium 131, acute hypoxemic respiratory failure, cardiac arrest, profound hypotension, atrial fibrillation, RVR, E coli UTI, pancreatitis, septic shock, sepsis. Prognosis guarded. DNR code status. Possible comfort care, neurogenic bladder, decubitus ulcer, seizure disorder, GERD, dyslipidemia, cardioplegia, hypovolemic hyponatremia. Continue current treatment. Await for family's decision on comfort care versus trach and PEG. Patient is improved from yesterday. MMTICOL / IJN: [id number] /
[2023-08-03 00:06] LABS: Glucose,Whole Blood 98 mg/dL (70-110)
[2023-08-03 01:18] LABS: ABG Base Excess -1.5 mmol/L; ABG HCO3 22 mmol/L (21-25); ABG Oxygen Saturation 98.7 % (94-97); ABG PCO2 28 mmHg (35-45); ABG PH 7.49 (7.35-7.45); ABG PO2 87 mmHg (83-108); ABG TCO2 23 mmol/L (19-24); Allen Test Performed? Yes
[2023-08-03 02:02] LABS: Anisocytosis Slight; Basophils # (A) 0.1 k/uL (0-0.2); Basophils % (A) 0 %; Eosinophils % (A) 0 %; HCT 23.9 % (39.0-53.0); Lymphocytes # (A) 1.2 k/uL (1.0-4.8); Lymphocytes % (A) 6 %; MCH 26.2 pg (25.0-35.0); MCHC 32.5 g/dL (31.0-37.0); MCV 80.9 fL (80.0-100.0); Mean Platelet Volume 10.9; Microcytosis Slight; Monocytes # (A) 1.4 k/uL (0-1.0); Monocytes % (A) 7 %; Neutrophils # (A) 17.5 k/uL (1.3-7.7); Neutrophils % (A) 86 %; RBC 2.95 m/uL (4.30-5.90); RDW 17.3 % (11.5-15.5); WBC 20.4 k/uL (3.8-10.6)
[2023-08-03 02:06] LABS: HGB 7.8 gm/dL (13.0-17.5); Platelet Count 73 k/uL (150-450)
[2023-08-03 02:23] LABS: INR 0.9 (<1.2); Partial Thromboplastin Time 26.9 sec (22.0-30.0); Prothrombin Time 10.3 sec (10.0-12.5)
[2023-08-03 02:31] LABS: ALT 43 U/L (4-49); AST 78 U/L (17-59); African American GFR (CKD) >90 (>60 ml/min/1.73 sqM); Albumin 1.4 g/dL (3.5-5.0); Alkaline Phosphatase 188 U/L (38-126); Anion Gap 4 mmol/L; Bilirubin, Delta 0.5 mg/dL (0.0-0.2); Bilirubin,Unconjugated 0.3 mg/dL (0.0-1.1); Blood Urea Nitrogen 12 mg/dL (9-20); Calcium 6.6 mg/dL (8.4-10.2); Carbon Dioxide 19 mmol/L (22-30); Chloride 110 mmol/L (98-107); Glucose 88 mg/dL (74-99); Magnesium 1.8 mg/dL (1.6-2.3); Non-African American GFR(CKD) >90 (>60 ml/min/1.73 sqM); Phosphorus 1.8 mg/dL (2.5-4.5); Potassium 3.8 mmol/L (3.5-5.1); Sodium 133 mmol/L (137-145); Total Bilirubin 0.8 mg/dL (0.2-1.3); Total Protein 3.5 g/dL (6.3-8.2)
[2023-08-03] MEDS ORDERED: Potassium Replacement Protocol 1 EACH MISC MISCELLANE PRN (03:39)
[2023-08-03] MEDS ORDERED: Magnesium Replacement Protocol 1 EACH MISC MISCELLANE PRN (03:41)
[2023-08-03 03:42] LABS: Appearance,Urine Clear (Clear); Bacteria,Urine Rare /hpf; Bilirubin,Urine Negative (Negative); Blood,Urine Trace (Negative); Budding Yeast,Urine Occasional /hpf; Color,Urine Light Yellow; Glucose,Urine (UA) Negative (Negative); Ketones,Urine 1+ (Negative); Leukocyte Esterase,Urine Negative (Negative); Mucus,Urine Rare /hpf; Nitrite,Urine Negative (Negative); PH, Urine 5.5 (5.0-8.0); Protein,Urine Trace (Negative); RBC,Urine 2 /hpf (0-5); Specific Gravity,Urine 1.016 (1.001-1.035); WBC,Urine 3 /hpf (0-5)
[2023-08-03] MEDS: MAGNESIUM SULFATE-D5W PMX 1 GM in DEXTROSE/WATER 1 100ML.BAG IVPB ONE (05:15)
[2023-08-03] MEDS: POTASSIUM BICARBONATE/CIT AC 20 MEQ TABLET.EFF NG-TUBE SCH (05:16)
[2023-08-03] MEDS: BACLOFEN 10 MG TAB PO PRN (08:32)
[2023-08-03 08:42] VITALS: TEMP 97.6
--- NOTE | 2023-08-03 08:45 | XR ---
EXAMINATION TYPE: XR chest 1V portable DATE OF EXAM: 08/03/2023 Comparison: 08/02/2023 Clinical History: 57-year-old male Tube placement Findings: Patient is prominently oblique rotated toward the left limiting the exam. ET and NG tube appear [employer]. Right IJ CVC at the lower SVC level. Bilateral mid and lower lung opacities are increasing. Worsening retrocardiac and left basilar opacity as well. Impression: Markedly limited due to patient positioning. Opacities in the mid and lower lungs appear to be increa sing. There may be an enlarging moderate left pleural effusion with extensive atelectasis and/or cons olidation throughout the left lower lung.
[2023-08-03 09:07] LABS: Glucose,Whole Blood 102 mg/dL (70-110)
[2023-08-03] MEDS ORDERED: ATROPINE OPHTH SOLN 1% 5ML BTL SUBLINGUAL PRN (11:38)
[2023-08-03 11:42] LABS: Glucose,Whole Blood 105 mg/dL (70-110)
[2023-08-03] MEDS: HYDROmorphone 1 MG/ML 1 ML SYRINGE IVP PRN (12:07)
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
[2023-08-03 13:07] LABS: Anisocytosis Slight; Basophils # (A) 0.1 k/uL (0-0.2); Basophils % (A) 0 %; Eosinophils % (A) 0 %; HCT 21.7 % (39.0-53.0); HGB 7.5 gm/dL (13.0-17.5); INR 0.9 (<1.2); Lymphocytes # (A) 0.9 k/uL (1.0-4.8); Lymphocytes % (A) 4 %; MCH 27.7 pg (25.0-35.0); MCHC 34.6 g/dL (31.0-37.0); MCV 80.1 fL (80.0-100.0); Mean Platelet Volume 10.3; Microcytosis Slight; Monocytes # (A) 1.1 k/uL (0-1.0); Monocytes % (A) 5 %; Neutrophils # (A) 19.2 k/uL (1.3-7.7); Neutrophils % (A) 90 %; Partial Thromboplastin Time 25.6 sec (22.0-30.0); Prothrombin Time 10.3 sec (10.0-12.5); RBC 2.71 m/uL (4.30-5.90); RDW 17.6 % (11.5-15.5); WBC 21.4 k/uL (3.8-10.6)
[2023-08-03 13:09] LABS: Platelet Count 84 k/uL (150-450)
[2023-08-03 13:16] LABS: ALT 41 U/L (4-49); AST 72 U/L (17-59); African American GFR (CKD) >90 (>60 ml/min/1.73 sqM); Albumin 1.5 g/dL (3.5-5.0); Alkaline Phosphatase 175 U/L (38-126); Anion Gap 5 mmol/L; Blood Urea Nitrogen 12 mg/dL (9-20); Calcium 6.7 mg/dL (8.4-10.2); Carbon Dioxide 20 mmol/L (22-30); Chloride 110 mmol/L (98-107); Glucose 87 mg/dL (74-99); Non-African American GFR(CKD) >90 (>60 ml/min/1.73 sqM); Potassium 3.5 mmol/L (3.5-5.1); Sodium 135 mmol/L (137-145); Total Bilirubin 0.8 mg/dL (0.2-1.3); Total Protein 3.5 g/dL (6.3-8.2)
[2023-08-03] MEDS: GLYCOPYRROLATE 0.2 MG/ML 2 ML VIAL IVP PRN (13:30)
[2023-08-03] MEDS: MORPHINE SULFATE 4 MG/ML SYRINGE IV PRN (14:43)
[2023-08-03] MEDS: MORPHINE SULFATE (100 MG/2 ML) 100 MG in SODIUM CHLORIDE 0.9% 100 ML IV SCH (14:46)
--- NOTE | 2023-08-03 15:08 | P.PN ---
Subjective Progress Note Date: 08/03/23 CHIEF COMPLAINT: Abdominal pain HISTORY OF PRESENT ILLNESS: Patient is in the ICU intubated on mechanical ventilation. Family has decided to proceed with comfort care and gift of life donation today PHYSICAL EXAM: VITAL SIGNS: Reviewed. GENERAL: no acute distress. ABDOMEN: Soft. Obese. nondistended ASSESSMENT: 1. Acute pancreatitis. No gallstones noted on ultrasound 2. Colitis 3. UTI with sepsis 4. Left buttocks decubitus ulcer 5. Distended stomach and thickening of the duodenum likely secondary to inflammation noted on CT PLAN: -Plan is for comfort care and gift of life donation today Physician [employer] P[employer] Operator note has been reviewed by physician. Signing provider agrees with the documented findings, assessment, and plan of care. Objective - Vital Signs Vital signs: Vital Signs Temp 97.6 F 08/03/23 08:00 Pulse 57 L 08/03/23 13:00 Resp 11 L 08/03/23 13:00 BP 95/59 08/02/23 23:32 Pulse Ox 96 08/03/23 13:00 FiO2 40 08/03/23 12:09 Intake & Output 08/02/23 08/03/23 08/03/23 18:59 06:59 18:59 Intake Total 1278.422 573.988 631.551 Output Total 658 815 680 Balance 620.422 -241.012 -48.449 Weight 111.725 kg 119.748 kg Intake: IV 294.8 120 180 Meropenem 1 gm In Sodium 199.8 100 Chloride 0.9% 100 ml @ 33 .3 mls/hr IVPB Q8HR MANDA Rx#:[id number] Sodium Chloride 0.9% 1, 95 120 80 000 ml @ 10 mls/hr IV . Q24H MANDA Rx#:[id number] Intake, IV Titration 983.622 453.988 451.551 Amount Norepinephrine 4 mg In 254 Sodium Chloride 0.9% 250 ml @ 0.03 MCG/KG/MIN 12. 339 mls/hr IV .[id number] MANDA Rx#:[id number] Norepinephrine 8 mg In 320.249 148.347 Sodium Chloride 0.9% 250 ml @ 0.03 MCG/KG/MIN 6. 267 mls/hr IV .Q24H MANDA Rx#:[id number] Phenylephrine 40 mg In 509.815 Sodium Chloride 0.9% 250 ml @ 0.5 MCG/KG/MIN 15. 554 mls/hr IV .[id number] MANDA Rx#:[id number] Vasopressin 20 unit In 51 51 51 Sodium Chloride 0.9% 50 ml @ 0.03 UNITS/MIN 4.59 mls/hr IV .[id number] MANDA Rx# :[id number] propofoL 1,000 mg In 168.807 82.739 252.204 Empty Bag 1 bag @ 15 MCG/ KG/MIN 9.83 mls/hr IV . [id number] MANDA Rx#:[id number] Output: Urine 651 815 680 Other: Voiding Method Indwelling Catheter Indwelling Catheter Indwelling Catheter ABP, PAP, CO, CI - Last Documented Arterial Blood Pressure 151/74 - Labs CBC & Chem 7: 08/03/23 12:16 08/03/23 12:16 Labs: Abnormal Lab Results - Last 24 Hours (Table) 08/03/23 08/03/23 08/03/23 Range/Units 01:20 01:30 01:30 WBC 20.4 H (3.8-10.6) k/uL RBC 2.95 L (4.30-5.90) m/uL Hgb 7.8 L D (13.0-17.5) gm/dL Hct 23.9 L (39.0-53.0) % RDW 17.3 H (11.5-15.5) % Plt Count 73 L D (150-450) k/uL Neutrophils # 17.5 H (1.3-7.7) k/uL Lymphocytes # (1.0-4.8) k/uL Monocytes # 1.4 H (0-1.0) k/uL ABG pH 7.49 H (7.35-7.45) ABG pCO2 28 L (35-45) mmHg ABG O2 Saturation 98.7 H (94-97) % Sodium 133 L (137-145) mmol/L Chloride 110 H (98-107) mmol/L Carbon Dioxide 19 L (22-30) mmol/L Creatinine 0.51 L (0.66-1.25) mg/dL Calcium 6.6 L (8.4-10.2) mg/dL Phosphorus 1.8 L (2.5-4.5) mg/dL Delta Bilirubin 0.5 H (0.0-0.2) mg/dL AST 78 H (17-59) U/L Alkaline Phosphatase 188 H (38-126) U/L Total Protein 3.5 L (6.3-8.2) g/dL Albumin 1.4 L (3.5-5.0) g/dL Urine Protein (Negative) Urine Ketones (Negative) Urine Blood (Negative) Urine Bacteria (None) /hpf Urine Mucus (None) /hpf Urine Yeast (Budding) (None) /hpf 08/03/23 08/03/23 08/03/23 Range/Units 03:30 12:16 12:16 WBC 21.4 H (3.8-10.6) k/uL RBC 2.71 L (4.30-5.90) m/uL Hgb 7.5 L (13.0-17.5) gm/dL Hct 21.7 L (39.0-53.0) % RDW 17.6 H (11.5-15.5) % Plt Count 84 L (150-450) k/uL Neutrophils # 19.2 H (1.3-7.7) k/uL Lymphocytes # 0.9 L (1.0-4.8) k/uL Monocytes # 1.1 H (0-1.0) k/uL ABG pH (7.35-7.45) ABG pCO2 (35-45) mmHg ABG O2 Saturation (94-97) % Sodium 135 L (137-145) mmol/L Chloride 110 H (98-107) mmol/L Carbon Dioxide 20 L (22-30) mmol/L Creatinine 0.52 L (0.66-1.25) mg/dL Calcium 6.7 L (8.4-10.2) mg/dL Phosphorus (2.5-4.5) mg/dL Delta Bilirubin (0.0-0.2) mg/dL AST 72 H (17-59) U/L Alkaline Phosphatase 175 H (38-126) U/L Total Protein 3.5 L (6.3-8.2) g/dL Albumin 1.5 L (3.5-5.0) g/dL Urine Protein Trace H (Negative) Urine Ketones 1+ H (Negative) Urine Blood Trace H (Negative) Urine Bacteria Rare H (None) /hpf Urine Mucus Rare H (None) /hpf Urine Yeast (Budding) Occasional H (None) /hpf Microbiology - Last 24 Hours (Table) 07/31/23 22:07 Gram Stain - Final Sputum Sputum Culture - Final Kim sp,not albicans/galbr
[2023-08-03 16:13] VITALS: BP 15/12
[2023-08-03 16:53] VITALS: PULSE 0; RESP 0
--- NOTE | 2023-08-04 02:13 | PN ---
PROGRESS NOTE DATE OF SERVICE: 08/03/2023 SUBJECTIVE: This is a 57-year-old white male, family decided to put him comfort care and planning to [facility], get his organs removed for donation and he under comfort measures per family's request. Orders were given to care managers and nurses and [facility] people which has the recuperation of the organs. We did what family requested and has made comfort care and he on 08/03/2023. MMTICOL / IJDeepa: [id number] /
--- NOTE | 2023-08-07 21:30 | CDI ---
Documentation Clarification Form Date: 08/07/2023 09:10:17 PM From: Ayse Bowie Phone: Admit Date: 07/26/2023 01:57:00 PM Patient Name: Og Grant Visit Number: [id number] Discharge Date: 08/03/2023 06:08:00 PM ATTENTION: The Clinical Documentation Specialists (CDI) and [facility] Coding Staff appreciate your assistance in clarifying documentation. Please respond to the clarification below the line at the bottom and electronically sign. The CDI & [facility] Coding staff will review the response and follow-up if needed. Please note: Queries are made part of the Legal Health Record. If you have any questions, please contact the author of this message via ITS. Dr. Magdiel Salinas Your patient has the documented diagnosis of unspecified CHF per 07/29 query. Additional information regarding the type and acuity of CHF is requested. History/Risk Factors: 57yo M, UTI d/tFoley catheter,Quadriplegiad/tneck injury,HLD,GERD, BLE decubitus ulcers, BLE edema, Acute pancreatitis, sepsis w shock, fluid overload Clinical Indicators: VS/Pulse OX: 97-98 Echocardiogram Results: normal LV systolic function Chest X Ray: 07/25 Lungs/Pleura: There isno evidence ofpleural effusion, focal consolidation, or pneumothorax. Pulmonary vascularity: Unremarkable. Heart/mediastinum: Cardiomediastinal silhouette isenlargedand stable. 07/28: Vinnie pleural effusionslayering posteriorly measuring approx 3.5 cm on the Rt and 4 cm on the Lt; LLL consolidation as well as partial consolidation of the deep and a portion of the BRITNEY consistent withPNAoratelectasis. There is a small amount of subsegmentalatelectasisoredemacentrally. Treatment: 20 mg of Lasix IV; family decided to put himcomfort care; Pt In your professional opinion, can you please clarify the type and acuity of CHF if known? [ ] Acute Systolic Heart Failure (reduced EF) [ ] Chronic Systolic Heart Failure (reduced EF) [ ] Acute on Chronic Systolic Heart Failure (reduced EF) [ ] Acute Diastolic Heart Failure (preserved EF) [ ] Chronic Diastolic Heart Failure (preserved EF) [ ] Acute on Chronic Diastolic Heart Failure (preserved EF) [ ] Acute Systolic & Diastolic Heart Failure [ ] Chronic Systolic & Diastolic Heart Failure [ ] Acute on Chronic Heart Failure Systolic & Diastolic Heart Failure [ ] Other, please specify [ ] Unable to determine (Template Last Revised: May 2020) MTDD
--- NOTE | 2023-08-09 20:39 | PN ---
PROGRESS NOTE Acute on chronic stage II diastolic heart failure. MMODL / IJN: [id number] /
== END 2023-08-03 18:08 | disposition expired | DRG 698 ==
LOC: EC 10:11 → 5NMEDONC 13:57 → 3SCARD 17:44 → 2SICU 22:05
PROVIDERS: ADMIT Family Medicine; ATTEND Family Medicine
PROC: 3E033XZ Introduction of Vasopressor into Peripheral Vein, Percutaneous Approach (ICD-10-PCS; 2023-07-27)
PROC: 02HV33Z Insertion of Infusion Device into Superior Vena Cava, Percutaneous Approach (ICD-10-PCS; principal; 2023-07-28)
PROC: 3E043XZ Introduction of Vasopressor into Central Vein, Percutaneous Approach (ICD-10-PCS; 2023-07-28)
PROC: 5A09357 Assistance with Respiratory Ventilation, Less than 24 Consecutive Hours, Continuous Positive Airway Pressure (ICD-10-PCS; 2023-07-30)
PROC: 5A2204Z Restoration of Cardiac Rhythm, Single (ICD-10-PCS; 2023-08-01)
PROC: 5A1945Z Respiratory Ventilation, 24-96 Consecutive Hours (ICD-10-PCS; 2023-08-01)
PROC: 0BH18EZ Insertion of Endotracheal Airway into Trachea, Via Natural or Artificial Opening Endoscopic (ICD-10-PCS; 2023-08-01)
DX: T83.518A Infection and inflammatory reaction due to other urinary catheter, initial encounter (principal); A41.51 Sepsis due to Escherichia coli [E. coli]; R65.21 Severe sepsis with septic shock; J96.01 Acute respiratory failure with hypoxia; J96.02 Acute respiratory failure with hypercapnia; J69.0 Pneumonitis due to inhalation of food and vomit; G82.50 Quadriplegia, unspecified; L89.323 Pressure ulcer of left buttock, stage 3; K65.9 Peritonitis, unspecified; I50.33 Acute on chronic diastolic (congestive) heart failure; K85.90 Acute pancreatitis without necrosis or infection, unspecified; I13.0 Hypertensive heart and chronic kidney disease with heart failure and stage 1 through stage 4 chronic kidney disease, or unspecified chronic kidney disease; Z68.43 Body mass index [BMI] 50.0-59.9, adult; I82.511 Chronic embolism and thrombosis of right femoral vein; D69.6 Thrombocytopenia, unspecified; L89.212 Pressure ulcer of right hip, stage 2; I46.8 Cardiac arrest due to other underlying condition; S14.159S Other incomplete lesion at unspecified level of cervical spinal cord, sequela; G40.909 Epilepsy, unspecified, not intractable, without status epilepticus; E66.01 Morbid (severe) obesity due to excess calories; I48.91 Unspecified atrial fibrillation; Z51.5 Encounter for palliative care; Z66 Do not resuscitate; E83.51 Hypocalcemia; B37.89 Other sites of candidiasis; E87.21 Acute metabolic acidosis; R18.8 Other ascites; E87.3 Alkalosis; E87.1 Hypo-osmolality and hyponatremia; N39.0 Urinary tract infection, site not specified; S72.012 Unspecified intracapsular fracture of left femur; N31.8 Other neuromuscular dysfunction of bladder; B96.20 Unspecified Escherichia coli [E. coli] as the cause of diseases classified elsewhere; E87.8 Other disorders of electrolyte and fluid balance, not elsewhere classified; N20.0 Calculus of kidney; E86.1 Hypovolemia; E86.0 Dehydration; E78.5 Hyperlipidemia, unspecified; K21.00 Gastro-esophageal reflux disease with esophagitis, without bleeding; K59.89 Other specified functional intestinal disorders; N18.2 Chronic kidney disease, stage 2 (mild); N28.89 Other specified disorders of kidney and ureter; T49.0X5A Adverse effect of local antifungal, anti-infective and anti-inflammatory drugs, initial encounter; R00.1 Bradycardia, unspecified; E87.6 Hypokalemia; I44.0 Atrioventricular block, first degree; I49.1 Atrial premature depolarization; E80.4 Gilbert syndrome; K52.89 Other specified noninfective gastroenteritis and colitis; K59.09 Other constipation; M16.11 Unilateral primary osteoarthritis, right hip; R41.0 Disorientation, unspecified; Y73.1 Therapeutic (nonsurgical) and rehabilitative gastroenterology and urology devices associated with adverse incidents; Z87.440 Personal history of urinary (tract) infections; Z11.52 Encounter for screening for COVID-19; Z74.01 Bed confinement status; Z79.899 Other long term (current) drug therapy; Z88.2 Allergy status to sulfonamides; Z88.1 Allergy status to other antibiotic agents; Z86.14 Personal history of Methicillin resistant Staphylococcus aureus infection
CPT/HCPCS: 36415; 36600; 70450; 71045; 71275; 74177; 76700; 80048; 80053; 80076; 81001; 82150; 82248; 82330; 82533; 82805; 83605; 83690; 83735; 84100; 84132; 84443; 84478; 84484; 85025; 85027; 85379; 85610; 85730; 86850; 86900; 86901; 87040; 87070; 87077; 87086; 87186; 87205; 87635; 87636; 92950; 93005; 93306; 93970; 94002; 94003; 94640; 94660; 96361; 96365; 96366; 96367; 96375; 99291